=== PATIENT | male | born 1945 | race Caucasian/White ===

== ENCOUNTER 2018-05-15 00:29 | Outpatient (CLI) | payer BC, SELFPAY ==
--- NOTE | 2018-05-15 15:13 | DI.US_ITS ---
SYMPTOM/DIAGNOSIS: PAINLESS HEMATURIA, R31.9 RENAL ULTRASOUND: Routine examination was performed. Comparison CT scan is 07/31/16. The right kidney measures 11.2 cm. long. The left kidney measures 12.7 cm. long. No renal masses or obstruction is seen. There are a few echogenic foci seen within the renal pelves bilaterally. These may represent non obstructing stones versus calcifications. There is blood flow to both kidneys. The prevoid urinary bladder volume is 114 cc's. The bladder wall appeared smooth. No intraluminal masses are seen. The ureteral jets were not visualized during the examination. Post void urinary bladder volume was 57 cc's. The prostatic volume is 55 cc's. IMPRESSION: 1. No sonographic evidence of a renal mass or obstruction. 2 . Echogenic foci seen within the renal pelves bilaterally. These may represent non obstructing stones versus vascular calcifications. CT may be considered for further evaluation.
== END 2018-05-15 00:49 ==
PROVIDERS: PCP Family Medicine; Visit Provider Family Medicine
DX: R31.29 Other microscopic hematuria (principal)
CPT/HCPCS: 76770

== ENCOUNTER → 2018-06-05 07:47 | Outpatient (BNVA) | payer MEDICARE, BC, SELFPAY | PROVIDERS: PCP Family Medicine; Referring Provider Family Medicine; Visit Provider Urology | DX: R31.9 Hematuria, unspecified (principal) | CPT/HCPCS: 81003; 99214 ==

== ENCOUNTER 2018-07-31 14:46 | Outpatient (CLI) | payer MEDICARE, BC, SELFPAY ==
--- NOTE | 2018-07-31 10:30 | DI.RAD_ITS ---
SYMPTOMS/DIAGNOSIS: RIGHT HIP PAIN, M25.551, RIGHT KNEE PAIN, M25.561 PELVIS AND RIGHT HIP: There is mild to moderate bilateral hip joint space narrowing. There is mild acetabular spurring. The sacrum is obscured by overlying stool. The SI joints show mild degenerative changes. There are advanced degenerative changes in the lower lumbar spine. IMPRESSION: Moderate degenerative changes of both hips. RIGHT KNEE: The joint spaces are well maintained. There is minimal spurring at the articular aspect of the patella and tibial tubercle. There is an exostosis of the proximal fibular metaphysis. IMPRESSION: Mild patellofemoral degenerative changes and fibular exostosis.
== END 2018-07-31 15:06 ==
PROVIDERS: PCP Family Medicine; Visit Provider Family Medicine
DX: M25.551 Pain in right hip (principal); M25.561 Pain in right knee; M16.0 Bilateral primary osteoarthritis of hip; M17.11 Unilateral primary osteoarthritis, right knee
CPT/HCPCS: 73562; 73502

== ENCOUNTER 2019-12-02 03:47 | Outpatient (CLI) | payer MEDICARE, BC, SELFPAY ==
[2019-12-02 13:26] LABS: Anion Gap 7.1 mmol/L (3-11); BUN 20 mg/dL (7-18); CO2 29.9 mmol/L (21.0-32.0); CREATININE 0.84 mg/dL (0.70-1.30); Calcium 9.1 mg/dL (8.5-10.1); Calculated LDL 90 mg/dL (<100); Chloride 104 mmol/L (98-107); Cholesterol 153 mg/dL (<200); Glucose 93 mg/dL (74-106); HDL Cholesterol 42 mg/dL (40-60); Potassium 4.4 mmol/L (3.5-5.1); Sodium 141 mmol/L (136-145); Triglyceride 107 mg/dL (<150)
[2019-12-04 11:53] LABS: Lyme Ab w Rflx to Lyme Confirm Negative (Negative)
== END 2019-12-02 04:07 ==
PROVIDERS: Visit Provider Family Medicine
DX: I10 Essential (primary) hypertension (principal); E78.5 Hyperlipidemia, unspecified; W57.XXXA Bitten or stung by nonvenomous insect and other nonvenomous arthropods, initial encounter; T14.8XXA Other injury of unspecified body region, initial encounter
CPT/HCPCS: 36415; 80048; 80061; 86618

== ENCOUNTER → 2020-01-09 12:48 | Outpatient (BNVA) | payer MEDICARE, BC, SELFPAY | PROVIDERS: Visit Provider Urology | DX: R31.0 Gross hematuria (principal); Z87.891 Personal history of nicotine dependence | CPT/HCPCS: 99213 ==

== ENCOUNTER 2020-01-09 15:57 | Outpatient (REF) | payer MEDICARE, BC, SELFPAY | END 2020-01-09 16:17 | LOC: LBN 15:57 | PROVIDERS: Visit Provider Urology | DX: R31.9 Hematuria, unspecified (principal) | CPT/HCPCS: 87086 ==

== ENCOUNTER 2020-01-17 03:27 | Outpatient (CLI) | payer MEDICARE, BC, SELFPAY ==
--- NOTE | 2020-01-17 06:45 | DI.CT_ITS ---
EXAM: CT ABDOMEN PELVIS WO/W CLINICAL HISTORY: hematuria,R31.0 TECHNIQUE: CT examination of the abdomen pelvis was performed utilizing CT urogram protocol with non contrast CT followed by venous phase 7 minutes delayed phase imaging with intravenous infusion of 100 cc of Omnipaque 350. COMPARISON: CT ABD PELVIS WITH CONTRAST from 07/31/2016 CT CHEST FOR PULMONARY EMBOLUS from 08/02/[address] shows tiny bilateral nonobstructing renal calculi, 1 millimeter calculus in pole right 1 millimeter nonobstructing calculus in upper pole of the left kidney.. There is a sclerotic focus of the left iliac bone which is unchanged in appearance comparison with pr ior CT of July 2016. Images obtained through the lung bases are unremarkable. The liver is unremarkable in appearance. The spleen is unremarkable in appearance. The pancreas is unremarkable in appearance. Gallbladder and bile ducts appear normal. Abdominal aorta and major visceral branches appear intact. No evidence of abdominal wall hernia. No evidence of abdominal or pelvic adenopathy. No focal bowel pathology. The kidneys are normal in size and shape. There is normal symmetrical renal cortical enhancement. T here is no evidence of a renal mass, hydronephrosis, or nephrolithiasis except for small bilateral ap parent incidental renal cysts. The ureters appear normal bilaterally.. There is normal appearance o f the urinary bladder. IMPRESSION: Tiny bilateral nonobstructing renal calculi. Small bilateral renal cysts. Examination is otherwise unremarkable. RADIATION DOSE DELIVERED: 2,804.58mGy.cm Total DLP 2,804.58mGy.cm Total DLP
[2020-01-17] MEDS: Omnipaque 350 MG/ML 100 ML BTL PO (09:16)
[2020-01-17] MEDS: Normal Saline - Diluent 50 ML VIAL IV ×2 (09:17)
== END 2020-01-17 03:47 ==
PROVIDERS: Visit Provider Urology
DX: R31.0 Gross hematuria (principal); N20.0 Calculus of kidney; N28.1 Cyst of kidney, acquired
CPT/HCPCS: 99213; 74178; J3490

== ENCOUNTER → 2020-04-17 12:41 | Outpatient (BNVA) | payer MEDICARE, BC, SELFPAY | PROVIDERS: Visit Provider Internal Medicine Cardiovascular Disease | DX: I25.10 Atherosclerotic heart disease of native coronary artery without angina pectoris (principal); I42.9 Cardiomyopathy, unspecified; R07.89 Other chest pain; I10 Essential (primary) hypertension | CPT/HCPCS: 99204; 99215 ==

== ENCOUNTER → 2020-05-06 11:20 | Outpatient (BNVA) | payer MEDICARE, BC, SELFPAY | PROVIDERS: Visit Provider Physician Assistant | DX: I42.9 Cardiomyopathy, unspecified (principal); Z45.02 Encounter for adjustment and management of automatic implantable cardiac defibrillator | CPT/HCPCS: 93284; 99211 ==

== ENCOUNTER 2020-05-07 02:45 | Outpatient (CLI) | payer MEDICARE, BC, SELFPAY ==
[2020-05-07 12:41] LABS: Anion Gap 8.6 mmol/L (3-11); BUN 18 mg/dL (7-18); CO2 29.4 mmol/L (21.0-32.0); CREATININE 0.9 mg/dL (0.70-1.30); Calcium 9.4 mg/dL (8.5-10.1); Chloride 104 mmol/L (98-107); Glucose 99 mg/dL (74-106); Potassium 4.3 mmol/L (3.5-5.1); Sodium 142 mmol/L (136-145)
== END 2020-05-07 02:46 | disposition home or self-care (01) ==
LOC: LOS 02:45
PROVIDERS: Visit Provider Internal Medicine Cardiovascular Disease
DX: I42.9 Cardiomyopathy, unspecified (principal)
CPT/HCPCS: 36415; 80048

== ENCOUNTER 2020-06-03 00:42 | Outpatient (CLI) | payer MEDICARE, BC, SELFPAY ==
--- NOTE | 2020-06-03 10:16 | DI.US_ITS ---
APPROVED REPORT EXAM: Comprehensive 2D, Doppler, and color-flow Echocardiogram Patient Location: Out-Patient Width Stripper: Ingrid Mix RDCS (AE) Indications: NICM, Coronary Atherosclerosis, Pacer Other Information Study Quality: Adequate Conclusion Normal left ventricular wall thickness and chamber size. Estimated ejection fraction is 55 to 60%. There are no segmental wall motion abnormalities Normal right ventricular size and systolic function Both atria are normal in size Pacemaker lead noted in the right atrium and right ventricle The aortic valve is trileaflet with trace regurgitation Mild mitral annular calcification. Mild mitral regurgitation Normal tricuspid valve, trace to mild regurgitation, normal estimated right ventricular systolic pres sure 22 mmHg The pulmonic valve is not well visualized Mildly dilated ascending aorta measuring 3.68 cm Wall motion Left Ventricle The left ventricle is normal size. The left ventricular systolic function is normal. The left ventric ular ejection fraction is within the normal range. There is normal left ventricular wall thickness. T here is normal LV segmental wall motion. Left ventricular filling pattern is normal for age. There is no ventricular septal defect visualized. LVEF is 57%. Right Ventricle The right ventricle is normal size. The right ventricular systolic function is normal. The RVSP is 22 .4mmHg. Pacemaker lead is present in the right ventricle. Atria Left atrium is mildly dilated. The right atrium size is normal. The interatrial septum is intact with no evidence for an atrial septal defect. Aortic Valve The aortic valve is normal in structure. There is no aortic valvular stenosis. Trace aortic regurgita tion. Mitral Valve Mild mitral annular calcification. No evidence of mitral valve stenosis. Mild mitral regurgitation. Tricuspid Valve The tricuspid valve is normal in structure. There is no tricuspid valve stenosis. Trace to mild tricu spid regurgitation. Pulmonic Valve Pulmonic valve is not well visualized. There is no pulmonic valvular stenosis. There is no pulmonic v alvular regurgitation. Great Vessels The aortic root is normal in size. The ascending aorta is mildly dilated.3.68 cm Aortic arch is dana l in caliber. IVC is normal in size and collapses >50% with inspiration. Pericardium There is no pericardial effusion. 2D Dimensions IVSD d PLAX 0.90 cm M: 0.6-1.2 LV Vol A2C d MOD 125.1 mL LVPW d PLAX 0.92 cm M: 0.6 - 1.2 LV Vol A4C d MOD 159.0 mL LVID d PLAX 5.17 cm M: 4.2 - 5.8 LA vol/ BSA A2C s A-L 46.2 mL/m2 LVDs 3.70 cm M: 2.5 - 4.0 LA vol/ BSA A4C s A-L 32.3 mL/m2 Ao Root d 3.50 cm M: 3.1 - 3.7 LA Vol/ BSA Biplane s A-L 38.9 mL/m2 RA Area A4C 15.79 cm2 LA Area A4C s MOD 23.67 cm2 RA Vol/ BSA A4C s A-L 20.6 mL/m2 LA Area A2C s MOD 28.52 cm2 Ao Asc Diam d 3.68 cm M: 2.6 - 3.4 LV EF A4C MOD 56.5 % LV EF Teichholz 54.1 % LV EF A2C MOD 56.7 % LVEF (Ramirez's) 56.20 % M: 52 - 72 LV EF Biplane MOD 56.2 % LV Volume 101.20 mL M: 62 - 150 SV 80.25 mL LV Volume Index 42.34 mL/m2 M: 34 - 74 SV Index 33.50 mL/m2 LV Vol Biplane MOD 142.8 mL FS 28.10 % M-Mode TAPSE 2.27 cm (M/F) >1.7 LV Diastology MV E' medial 0.061 (>0.07 m/s) E/A Ratio 0.7 LV E/e MED 8.45 (<14) MV E Vmax 0.51 (0.4-1.3 m/s) MV E' lateral 0.075 (>0.1 m/s) MV A Vmax 0.70 (0.4-1.3 m/s) LV E/e LAT 6.80 (<14) MV E/A Ratio 0.71 MV E/E' medial 8.47 MV E/E' lateral 6.82 Aortic Valve LVOT Area 3.63 cm2 AoV Area Vmax 2.70 cm2 LVOT Vmax 0.89 m/s AoV Area/ BSA (Vmax) 1.13 cm2/m2 LVOT Mean Jaylen. 0.58 m/s TORIN Mean Jaylen. 2.44 cm2 LVOT Peak Grad 3.2 mmHg TORIN Mean Jaylen. Index 1.02 cm2/m2 LVOT Mean Grad 1.6 mmHg LVOT VTI 0.171 m LVOT Diam s 2.10 cm AoV Vmax 1.20 m/s Velocity Ratio 0.74 AoV Mean Jaylen. 0.87 m/s AoV Peak Grad 5.7 mmHg LVOT SV 62.00 mL AoV Mean Grad 3.3 mmHg AoV VTI 0.249 m AoV Area VTI 2.49 cm2 AoV Area/ BSA (VTI) 1.04 cm/m2 Mitral Valve MV DT 305 (160-240 msec) MV PHT 88 msec MV Area PHT 2.49 cm2 MV VTI 0.252 m MV VTI Annulus 0.252 m Pulmonary Valve PV Vmax 0.78 (0.5-1.5 m/s) RVOT Peak Gr. 1.72 mmHg PV Peak Grad 2.5 mmHg RVOT Mean Gr. 0.85 mmHg PV Mean Grad 1.4 mmHg RVOT VTI 0.138 m PV VTI 0.170 m RVOT Vmax 0.66 m/s Tricuspid Valve TR Peak Grad 19.3 mmHg TR Vmax 2.20 m/s RA Pressure 3.00 mmHg RVSP (TR) 22.4 mmHg
== END 2020-06-03 01:02 ==
PROVIDERS: Visit Provider Internal Medicine Cardiovascular Disease
DX: I25.10 Atherosclerotic heart disease of native coronary artery without angina pectoris (principal); I42.8 Other cardiomyopathies; I08.1 Rheumatic disorders of both mitral and tricuspid valves
CPT/HCPCS: 93306

== ENCOUNTER → 2020-07-24 09:49 | Outpatient (BNVA) | payer MEDICARE, BC, SELFPAY | PROVIDERS: Visit Provider Urology | DX: R31.0 Gross hematuria (principal); Z79.899 Other long term (current) drug therapy | CPT/HCPCS: 81003; 99213 ==

== ENCOUNTER → 2020-10-09 10:02 | Outpatient (BNVA) | payer MEDICARE, BC, SELFPAY | PROVIDERS: Visit Provider Internal Medicine Cardiovascular Disease | DX: I42.8 Other cardiomyopathies (principal); I10 Essential (primary) hypertension; Z95.810 Presence of automatic (implantable) cardiac defibrillator | CPT/HCPCS: 99214; 99213 ==

== ENCOUNTER → 2020-11-04 09:23 | Outpatient (BNVA) | payer MEDICARE, BC, SELFPAY | PROVIDERS: Visit Provider Physician Assistant | DX: I42.8 Other cardiomyopathies (principal); R00.1 Bradycardia, unspecified; Z45.02 Encounter for adjustment and management of automatic implantable cardiac defibrillator | CPT/HCPCS: 93284; 99212 ==

== ENCOUNTER 2021-02-18 02:51 | Outpatient (CLI) | payer MEDICARE, BC, SELFPAY ==
[2021-02-18 21:18] LABS: PSA, Diagnostic 0.9 ng/mL (0.0-6.5)
== END 2021-02-18 02:52 | disposition home or self-care (01) ==
LOC: LOS 02:51
PROVIDERS: Visit Provider Urology
DX: R31.0 Gross hematuria (principal)
CPT/HCPCS: 36415; 84153

== ENCOUNTER → 2021-02-23 07:50 | Outpatient (BNVA) | payer MEDICARE, BC, SELFPAY | PROVIDERS: Visit Provider Urology | DX: R31.0 Gross hematuria (principal) | CPT/HCPCS: 81003; 99213 ==

== ENCOUNTER → 2021-04-09 10:32 | Outpatient (BNVA) | payer MEDICARE, SELFPAY | PROVIDERS: Visit Provider Internal Medicine Cardiovascular Disease | DX: I25.10 Atherosclerotic heart disease of native coronary artery without angina pectoris (principal); I10 Essential (primary) hypertension; I42.8 Other cardiomyopathies; Z95.810 Presence of automatic (implantable) cardiac defibrillator | CPT/HCPCS: 99214; 99213 ==

== ENCOUNTER → 2021-04-28 09:21 | Outpatient (BNVA) | payer MEDICARE, SELFPAY | PROVIDERS: Visit Provider Physician Assistant | DX: Z95.810 Presence of automatic (implantable) cardiac defibrillator (principal); I42.8 Other cardiomyopathies; R00.1 Bradycardia, unspecified | CPT/HCPCS: 93284; 99212 ==

== ENCOUNTER 2021-06-02 01:29 | Outpatient (CLI) | payer MEDICARE, SELFPAY ==
--- NOTE | 2021-06-02 13:51 | DI.US_ITS ---
APPROVED REPORT EXAM: Comprehensive 2D, Doppler, and color-flow Echocardiogram Patient Location: Out-Patient Porcelain Mixer: Ingrid Mix RDCS (AE) Indications: CMP, HTN Conclusion Normal left ventricular wall thickness and chamber size. Estimated ejection fraction is 60%. Wall m otion is normal Normal right ventricular size and systolic function Both atria are normal in size Device lead noted in the right heart There are no significant structural valvular abnormalities Mild mitral and tricuspid regurgitation Estimated right ventricular systolic pressure is 28 mmHg Mildly dilated ascending aorta 3.82 cm Wall motion Left Ventricle The left ventricle is normal size. The left ventricular systolic function is normal. The left ventric ular ejection fraction is within the normal range. There is normal left ventricular wall thickness. T here is normal LV segmental wall motion. There is no ventricular septal defect visualized. LVEF is 60 %. Right Ventricle The right ventricle is normal size. The right ventricular systolic function is normal. The RVSP is 27 .7_ mmHg. Pacemaker lead is present in the right ventricle. Atria The left atrium size is normal. The right atrium size is normal. The interatrial septum is intact wit h no evidence for an atrial septal defect. Aortic Valve The aortic valve is normal in structure. There is no aortic valvular stenosis. No aortic regurgitatio n is present. Mitral Valve Mild mitral annular calcification. No evidence of mitral valve stenosis. Mild mitral regurgitation. Tricuspid Valve The tricuspid valve is normal in structure. There is no tricuspid valve stenosis. Mild tricuspid regu rgitation. Pulmonic Valve Pulmonic valve is not well visualized. There is no pulmonic valvular stenosis. There is no pulmonic v alvular regurgitation. Great Vessels The aortic root is normal in size. The ascending aorta is mildly dilated. Aortic arch is not well vis ualized. IVC is normal in size and collapses >50% with inspiration. Pericardium There is no pericardial effusion. 2D Dimensions IVSD d PLAX 1.05 cm M: 0.6-1.2 LV Vol A2C d MOD 179.5 mL LVPW d PLAX 1.03 cm M: 0.6 - 1.2 LV Vol A4C d MOD 168.2 mL LVID d PLAX 5.35 cm M: 4.2 - 5.8 LA vol/ BSA A2C s A-L 34.7 mL/m2 LVDs 3.75 cm M: 2.5 - 4.0 LA vol/ BSA A4C s A-L 28.4 mL/m2 Ao Root d 3.44 cm M: 3.1 - 3.7 LA Vol/ BSA Biplane s A-L 31.5 mL/m2 RA Area A4C 18.45 cm2 LA Area A4C s MOD 21.85 cm2 RA Vol/ BSA A4C s A-L 23.3 mL/m2 LA Area A2C s MOD 24.08 cm2 Ao Asc Diam d 3.82 cm M: 2.6 - 3.4 LV EF A4C MOD 60.4 % LV EF Teichholz 56.6 % LV EF A2C MOD 59.9 % LVEF (Ramirez's) 61.47 % M: 52 - 72 LV EF Biplane MOD 61.5 % LV Volume 127.70 mL M: 62 - 150 SV 111.07 mL LV Volume Index 52.98 mL/m2 M: 34 - 74 SV Index 45.94 mL/m2 LV Vol Biplane MOD 180.7 mL FS 29.90 % M-Mode TAPSE 2.57 cm (M/F) >1.7 LV Diastology MV E' medial 0.083 (>0.07 m/s) E/A Ratio 1.0 LV E/e MED 7.45 (<14) MV E Vmax 0.62 (0.4-1.3 m/s) MV E' lateral 0.098 (>0.1 m/s) MV A Vmax 0.60 (0.4-1.3 m/s) LV E/e LAT 6.35 (<14) MV E/A Ratio 0.96 MV E/E' medial 7.47 MV E/E' lateral 6.35 Aortic Valve LVOT Area 4.45 cm2 AoV Area Vmax 3.04 cm2 LVOT Vmax 0.94 m/s AoV Area/ BSA (Vmax) 1.26 cm2/m2 LVOT Mean Jaylen. 0.62 m/s TORIN Mean Jaylen. 2.85 cm2 LVOT Peak Grad 3.5 mmHg TORIN Mean Jaylen. Index 1.18 cm2/m2 LVOT Mean Grad 1.8 mmHg LVOT VTI 0.188 m LVOT Diam s 2.35 cm AoV Vmax 1.37 m/s Velocity Ratio 0.68 AoV Mean Jaylen. 0.96 m/s AoV Peak Grad 7.5 mmHg LVOT SV 83.81 mL AoV Mean Grad 4.2 mmHg AoV VTI 0.252 m AoV Area VTI 3.33 cm2 AoV Area/ BSA (VTI) 1.38 cm/m2 Mitral Valve MV DT 268 (160-240 msec) MV PHT 78 msec MV Area PHT 2.83 cm2 MV VTI 0.199 m MV Area VTI 4.22 (4.0-6.0 cm2) Pulmonary Valve PV Vmax 1.05 (0.5-1.5 m/s) RVOT Peak Gr. 2.06 mmHg PV Peak Grad 4.4 mmHg RVOT Mean Gr. 1.25 mmHg PV Mean Grad 2.9 mmHg RVOT VTI 0.164 m PV VTI 0.248 m RVOT Vmax 0.72 m/s Tricuspid Valve TR Peak Grad 24.6 mmHg TR Vmax 2.48 m/s RA Pressure 3.00 mmHg RVSP (TR) 27.7 mmHg
== END 2021-06-02 01:49 ==
PROVIDERS: Visit Provider Internal Medicine Cardiovascular Disease
DX: I10 Essential (primary) hypertension (principal); I77.819 Aortic ectasia, unspecified site
CPT/HCPCS: 93306

== ENCOUNTER 2021-08-27 01:12 | Outpatient (CLI) | payer MEDICARE, SELFPAY ==
[2021-08-27 12:33] LABS: HCT 46.4 % (40.0-50.0); HGB 15.2 g/dL (13.5-17.5); MCH 28.8 pg (27.0-33.0); MCHC 32.8 % (32.0-36.0); MCV 88 fL (80-95); MPV 10.9 fL (8.0-11.0); Platelet Count 179 10^3/uL (130-400); RBC 5.27 10^6/uL (4.36-5.78); RDW 12.3 % (11.8-14.1); WBC 7.57 10^3/uL (4.4-10.8)
[2021-08-27 13:30] LABS: ALT 7 U/L (16-63); AST 15 U/L (15-37); Albumin 3.2 g/dL (3.4-5.0); Alkaline Phosphatase 60 U/L (46-116); BUN 17 mg/dL (7-18); Bilirubin, Total 0.7 mg/dL (0.2-1.0); CREATININE 1.1 mg/dL (0.70-1.30); Chloride 104 mmol/L (98-107); Glucose 115 mg/dL (74-106); Potassium 4.3 mmol/L (3.5-5.1); Sodium 141 mmol/L (136-145); Total Protein 6.6 g/dL (6.4-8.2)
== END 2021-08-27 01:13 | disposition home or self-care (01) ==
LOC: LOS 01:14
DX: K62.5 Hemorrhage of anus and rectum (principal); K59.03 Drug induced constipation
CPT/HCPCS: 36415; 80053; 85027

== ENCOUNTER → 2021-09-03 09:48 | Outpatient (BNVA) | payer MEDICARE, SELFPAY | PROVIDERS: Visit Provider Surgery | DX: I42.8 Other cardiomyopathies (principal); Z95.810 Presence of automatic (implantable) cardiac defibrillator; Z12.11 Encounter for screening for malignant neoplasm of colon; Z12.12 Encounter for screening for malignant neoplasm of rectum; K62.5 Hemorrhage of anus and rectum | CPT/HCPCS: 99213 ==

== ENCOUNTER 2021-10-06 11:01 | Day surgery (SDC) | payer MEDICARE, SELFPAY ==
--- NOTE | 2021-10-06 06:56 | W.PREOPHP ---
Assessment and Plan Assessment and plan (1) Encounter for colorectal cancer screening: Status: Acute Assessment and plan: Mr. Mccauley is a pleasant 76-year-old gentleman who is here today to discuss a screening colonoscopy.? His last colonoscopy was 10 years ago.? At that time he was noted to have diverticulosis but no polyps.? Over the last 2-1/2 weeks he has had some rectal bleeding, with his history of constipation this is most likely due to internal hemorrhoids.? We discussed doing a colonoscopy and possible hemorrhoid banding.? Both procedures were discussed in detail as well as the risks, benefits and complications. Risks, benefits and complications have been reviewed. Complications include but are not limited to bleeding, pain, perforation, missed small lesion/polyp, sore throat, aspiration and adverse reaction to the medications. Questions were entertained and answered to their satisfaction and they wished to proceed. No guarantees were given or implied. Proceed with colonoscopy with possible hemorrhoid banding History of Present Illness Narrative: Mr. Mccauley is a pleasant 76 year old male who had a colonoscopy 10 years ago. He had no polyps but had diverticula.? Over the last 2 1/2 weeks he has had some intermittent bleeding. The blood is on the toilet paper and streaking around the stool. He has a history of constipation and was resently started on Docusat sodium to help.? He has had no melena and has no family history of colon cancer that he is aware of. He does have a history of nonischemic cardiomyopathy and has a ICD, biventricular device.? It was interrogated in June and everything was functioning properly.? He is followed by cardiology here at [facility].? His last visit was in March of this year.? He had an echo done in May of this year which showed no major changes from last year.? He denies SOB with activity EXAM: Comprehensive 2D, Doppler, and color-flow Echocardiogram Patient Location: Out-Patient Estimator Jewelry: Ingrid Mix RDCS (AE) Indications: CMP, HTN Conclusion Normal left ventricular wall thickness and chamber size.? Estimated ejection fraction is 60%.? Wall motion is normal Normal right ventricular size and systolic function Both atria are normal in size Device lead noted in the right heart There are no significant structural valvular abnormalities Mild mitral and tricuspid regurgitation Estimated right ventricular systolic pressure is 28 mmHg Mildly dilated ascending aorta 3.82 cm No changes in his health since he was last seen Review of Systems All systems reviewed & are unremarkable except as noted in HPI and below PFSH All Active Problems Unspecified dental caries (Chronic) Idiopathic peripheral neuropathy (Chronic 10/06/17) Hyperlipidemia (Chronic) Hearing loss (Chronic) left Essential hypertension (Chronic 02/28/13) Coronary atherosclerosis of [place] coronary vessel (Chronic) Anticoagulated on warfarin (Chronic) handled by [facility] Acquired color vision deficiency (Chronic) Insomnia (Chronic) Chronic pain syndrome (Chronic) Low lumbar and hips, bilaterally ICD (implantable cardioverter-defibrillator), biventricular, in situ (Chronic) [employer]-D original implant 02/18/2013; PG replaced 03/25/2016 Non-ischemic cardiomyopathy (Chronic) improved LVEF to 55% Constipation due to pain medication (Chronic) Rectal bleeding (Acute) Encounter for colorectal cancer screening (Acute) Medical History Bradycardia Cardiac dysrhythmia, unspecified Complete heart block Per [facility] note Deviated nasal septum Gross hematuria History of pericarditis per [facility] note 2012 post DDD pacer implant History of tobacco use Hx pulmonary embolism per [facility] 2012 Hx-sudden cardiac arrest Per [facility] note: Probably bradycardic induced, presenting with symptomatic CHB, and requiring defibrillation 05/2012 [place] Painless hematuria Followed by urology SBO (small bowel obstruction) Surgical History Hx of colonoscopy Status post tonsillectomy (03/03/15) Tonsillectomy Family History Mother , age 72 Heart disease Father , age 60 Cancer Social History Smoking/Tobacco Use Status: Former Tobacco Use tobacco type: cigarettes Quit Date: 03/20/00 Tobacco: How many years used: 25 Second Hand Exposure: Yes Smoking risk assessment performed?: Yes Alcohol Intake: current Alcohol Intake frequency: a few times a week Alcohol type: beer and hard liquor Drug use: Rarely Substance use type: marijuana Caregiver/Support person: No Housing: house Communication Needs: None Do you need help understanding health information?: Never 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, 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 [employer] Pets and animals: Yes Pets and animals: dog(s) Sexually active: Yes Do you think of yourself as: straight/heterosexual Current gender identity: male What is your relationship status?: How often do you talk on the phone with friends or family?: three or more times per week How often do you get together with friends or relatives?: three or more times per week How often do you attend christian or pentecostalism services?: 1-3 times per year Do you belong to any clubs or organized social groups?: yes Panel score (0-1 are the most socially isolated patients): 2 What type of physical activity do you participate in: walking Duration: 30-45 minutes/day Frequency: 5-6 times per week Pushpa/Shinto: None Special pushpa needs: No Seatbelt use: sometimes Helmet use: No Drive intox or ride w/intox spike driver: No Do you feel safe at home: Yes Do you feel safe in your relationship?: Yes Meds Allergies and Home Medications Allergies Allergy/AdvReac Type Severity Reaction Status Date / Time furosemide Allergy Mild Hives Verified 10/06/21 11:31 lisinopril Allergy Unknown SKIN RASH Verified 10/06/21 11:31 Home Medications Medication Instructions Recorded Confirmed Type aspirin,buffered (calcium 325 mg PO DAILY #90 tabs 07/30/12 10/06/21 History carbonate-magnesium) 325 mg tablet glucosamine 750 [id number] 1 ea PO DAILY 07/30/12 10/06/21 History no.1 625 mg-C 30 [id number] tablet multivitamin (One Daily tablet) 1 ea PO DAILY 07/30/12 10/06/21 History magnesium oxide 400 mg (241.3 mg 400 mg PO DAILY #90 tabs 09/01/15 10/06/21 History magnesium) tablet loratadine 10 mg tablet 10 mg PO DAILY PRN allergy 05/07/20 10/06/21 Rx symptoms #30 tabs zolpidem 10 mg tablet (Ambien) 10 mg PO HS PRN insomnia #90 12/03/20 10/06/21 Rx tab-caps losartan 100 mg tablet 100 mg PO DAILY #90 tabs 01/28/21 10/06/21 Rx finasteride 5 mg tablet 5 mg PO DAILY prostate #90 tabs 02/23/21 10/06/21 Rx carvedilol 6.25 mg tablet 6.25 mg PO BID #180 tabs 05/07/21 10/06/21 Rx gabapentin 300 mg capsule 300 mg PO QHS neuropathy #90 caps 05/28/21 10/06/21 Rx amlodipine 5 mg tablet 5 mg PO DAILY #90 tabs 06/10/21 10/06/21 Rx hydrocodone 7.5 mg-acetaminophen 1 tab PO BID PRN pain #60 tabs 08/10/21 10/06/21 Rx 325 mg tablet docusate sodium 100 mg capsule 100 mg PO DAILY #90 caps 08/19/21 10/06/21 Rx polyethylene glycol 3350 17 17 g PO DAILY #510 grams 08/19/21 10/06/21 Rx gram/dose oral powder (Miralax) pravastatin 20 mg tablet 20 mg PO DAILY #90 tab-caps 08/23/21 10/06/21 Rx bisacodyl 5 mg tablet,delayed 5 mg PO ONCE #4 tabs 09/03/21 10/05/21 Rx release (Dulcolax (bisacodyl)) polyethylene glycol 3350 17 17 g PO ONCE #238 grams 09/03/21 10/06/21 Rx gram/dose oral powder Exam Const General: comfortable and no acute distress [facility] Head: normocephalic and atraumatic Resp Effort & Inspection: normal respiratory effort Auscultation: clear to auscultation bilaterally Cardio Rate: regular rate Rhythm: regular rhythm Heart Sounds: no gallops, no murmurs and no rubs
--- NOTE | 2021-10-06 07:01 | COLE_ITS ---
Colonoscopy Report Date of procedure: 10/06/21 Pre-op diagnosis general: colon cancer screening and rectal bleading Post-op diagnosis procedure note: other (diverticulosis and internal hemorrhoids) Procedure: Colonoscopy with internal hemorrhoid banding Surgeon: Sania Landers Anesthesia Type: General:No Airway Estimated blood loss (mL): 3 Pathology: none sent Complications: None Disposition: same day Indications: Mr. Mccauley is a pleasant 76-year-old gentleman who is here today to discuss a screening colonoscopy.? His last colonoscopy was 10 years ago.? At that time he was noted to have diverticulosis but no polyps.? Over the last 2-1/2 weeks he has had some rectal bleeding, with his history of constipation this is most likely due to internal hemorrhoids.? We discussed doing a colonoscopy and possible hemorrhoid banding.? Both procedures were discussed in detail as well as the risks, benefits and complications. Risks, benefits and complications have been reviewed. Complications include but are not limited to bleeding, pain, perforation, missed small lesion/polyp, sore throat, aspiration and adverse reaction to the medications. Questions were entertained and answered to their satisfaction and they wished to proceed. No guarantees were given or implied. Proceed with colonoscopy with possible hemorrhoid banding (2) Rectal bleeding: Prep: Miralax/Dulcolax Procedure Start Time: 13:12 Procedure End Time: 13:43 Retraction Time: 14 minutes Findings: Severe diverticulosis Procedure Description: After informed consent was obtained the patient was taken to the procedure room and placed in a left decubitous position. Monitors were applied and a time out was done. The patients name, date of , procedure, allergies to medications and metal in their body was reviewed. The patient was then sedated. Once sedated and comfortable a rectal exam was done. External exam was normal. Internal exam revealed a normal sphincter tone and no palpable masses. The prostate felt smooth. The scope was then introduced and retro-flexed. Grade 2 internal hemorrhoids at the 12 and 3 o'clock position. No polyps or masses were identified on retro- flexion. The scope was then advanced to the cecum without difficulty. The ileocecal vlave and appendiceal orifice were identified. The prep was adequate. The scope was then slowly retracted over 14 minutes back into the rectum. There were no Polyps. There was severe harley- diverticulosis noted. The scope was removed and the patient was woken up and taken back to Same day surgery in stable condition. The patient tolerated the procedure well and there were no immediate complications.
[2021-10-06 11:20] VITALS: BP 138/81; PULSE 67; RESP 19; TEMP 36.7; O2SAT 97
[2021-10-06] MEDS: Lactated Ringers 1,000 ML 80 ML IV (11:40)
--- NOTE | 2021-10-06 12:52 | W.ANESPRE ---
General Info Date of Service Date Performed: 10/06/21 Height: 6 ft 6 in Weight: 102.8 kg Body Mass Index (BMI): 26.2 Surgical Procedure: Operation Date: 10/06/21 13:35 Proposed Procedure Side Surgeon p Colonoscopy Sania Landers MD Meds Allergies and Home Medications Allergies Allergy/AdvReac Type Severity Reaction Status Date / Time furosemide Allergy Mild Hives Verified 10/06/21 11:31 lisinopril Allergy Unknown SKIN RASH Verified 10/06/21 11:31 Home Medication Medication Instructions Recorded aspirin,buffered (calcium 325 mg PO DAILY #90 tabs 07/30/12 carbonate-magnesium) 325 mg tablet glucosamine 750 gx-kphrzeelcy-pny 1 ea PO DAILY 07/30/12 no.1 625 mg-C 30 ud-qbea-slcv tablet multivitamin (One Daily tablet) 1 ea PO DAILY 07/30/12 magnesium oxide 400 mg (241.3 mg 400 mg PO DAILY #90 tabs 09/01/15 magnesium) tablet loratadine 10 mg tablet 10 mg PO DAILY PRN allergy 05/07/20 symptoms #30 tabs zolpidem 10 mg tablet (Ambien) 10 mg PO HS PRN insomnia #90 12/03/20 tab-caps losartan 100 mg tablet 100 mg PO DAILY #90 tabs 01/28/21 finasteride 5 mg tablet 5 mg PO DAILY prostate #90 tabs 02/23/21 carvedilol 6.25 mg tablet 6.25 mg PO BID #180 tabs 05/07/21 gabapentin 300 mg capsule 300 mg PO QHS neuropathy #90 caps 05/28/21 amlodipine 5 mg tablet 5 mg PO DAILY #90 tabs 06/10/21 hydrocodone 7.5 mg-acetaminophen 1 tab PO BID PRN pain #60 tabs 08/10/21 325 mg tablet docusate sodium 100 mg capsule 100 mg PO DAILY #90 caps 08/19/21 polyethylene glycol 3350 17 17 g PO DAILY #510 grams 08/19/21 gram/dose oral powder (Miralax) pravastatin 20 mg tablet 20 mg PO DAILY #90 tab-caps 08/23/21 bisacodyl 5 mg tablet,delayed 5 mg PO ONCE #4 tabs 09/03/21 release (Dulcolax (bisacodyl)) polyethylene glycol 3350 17 17 g PO ONCE #238 grams 09/03/21 gram/dose oral powder Current Visit Medications: Current Medications Generic Name Dose Route Start Last Admin Trade Name Freq PRN Reason Stop Dose Admin Hyoscyamine Sulfate 0.125 mg 10/06/21 07:03 Hyoscyamine 0.125 Mg Sl/Oral/Chew SL DIRECTED PRN Ringer's Solution 1,000 mls @ 80 mls/hr 10/06/21 06:00 10/06/21 11:40 IV 11/04/21 23:59 80 mls/hr INFUSION SHAWANDA Administration IV Miscellaneous Supplies 1 each 10/06/21 06:00 Iv Access IV 11/04/21 23:59 DIRECTED SHAWANDA Ondansetron HCl 4 mg 10/06/21 07:03 Ondansetron 4 Mg/2 Ml Vial IVP Q4H PRN PRN Nausea / Vomiting Sodium Chloride 0 ml 10/06/21 06:00 Normal Saline Flush 10 Ml Syr IV 11/04/21 23:59 PRN PRN Sodium Chloride 0 ml 10/06/21 06:00 Normal Saline 10 Ml Vial IJ 11/04/21 23:59 DIRECTED PRN Sterile Water 0 ml 10/06/21 06:00 Water,Injection,Sterile 10 Ml Vial IJ 11/04/21 23:59 DIRECTED PRN PFSH Active Problems Active Problems: Problem Status Onset Code Unspecified dental caries K02.9 Idiopathic peripheral neuropathy 10/06/17 G60.9 Hyperlipidemia E78.5 Hearing loss H91.90 Essential hypertension 02/28/13 I10 Coronary atherosclerosis of [place] coronary vessel I25.10 Anticoagulated on warfarin Z79.01 Acquired color vision deficiency H53.52 Insomnia G47.00 Chronic pain syndrome G89.4 ICD (implantable cardioverter-defibrillator), biventricular, in situ Z95.810 Non-ischemic cardiomyopathy I42.8 Constipation due to pain medication K59.03 Rectal bleeding K62.5 Encounter for colorectal cancer screening Z12.11, Z12.12 Medical History Medical History Bradycardia Cardiac dysrhythmia, unspecified Complete heart block Per [facility] [place] Deviated nasal septum Gross hematuria History of pericarditis per [facility] [place] note 2013 post DDD pacer implant History of tobacco use Hx pulmonary embolism per [facility] [place] 2012 Hx-sudden cardiac arrest Per [facility] [place] note: Probably bradycardic induced, presenting with symptomatic CHB, and requiring defibrillation 05/2012 [place] Painless hematuria Followed by urology SBO (small bowel obstruction) Surgical History Surgical History Hx of colonoscopy Status post tonsillectomy (03/03/15) Tonsillectomy Tobacco Smoking/Tobacco Use Status: Former Tobacco Use Passive smoking exposure: Yes Second hand exposure: Yes Alcohol Alcohol Intake: current Alcohol intake frequency: a few times a week Alcohol type: beer and hard liquor Substance Use Substance use: Rarely Substance use type: marijuana Vital Signs and Lab Results Vital Signs Most Recent Vital Signs in EMR: Most Recent Vital Signs Temp Pulse Resp BP Pulse Ox 36.7 C 67 19 138/81 97 10/06/21 11:20 10/06/21 11:20 10/06/21 11:20 10/06/21 11:20 10/06/21 11:20 Lab Results Blood Type / Crossmatch: No Data to Display Complete Blood Count: No Data to Display Complete Metabolic Panel: No Data to Display Liver Function Panel: No Data to Display Coagulation Panel: No Data to Display Cardiac Panel: No Data to Display Arterial Blood Gas: No Data to Display Venous Blood Gas: No Data to Display Pancreas Panel: No Data to Display Thyroid Panel: No Data to Display Infectious Disease: No Data to Display Blood Cultures: No Data to Display Toxicology Panel: No Data to Display Anesthesia Assessment and Plan Anesthesia History Personal History: No History of Anesthesia Complications Family History: No Family History of Anesthesia Complications Exercise Tolerance Exercise Tolerance: Metabolic Equivalents>4 Pertinent Negatives Pertinent Negatives: No Symptoms of GERD, No Major Cardiovascular Symptoms or Complaints (Pacemaker/ defibrillator, Sudden cardiac arrest 2012) and No History of CVA/TIA Cardiac & Pulmonary Exam Cardiac Exam: Normal S1/S2 Heart Sounds Pulmonary Exam: Clear Bilateral Breath Sounds Implantable Cardiac Device Does patient have a Pacemaker or an ICD?: Yes Device Refractory Bricklayer:: unkown possible [facility] Reason for Placement:: bradycardia Date of Last Device Interrogation:: 04/2021 Airway Exam Known Difficult Airway: No Mallampati Class: 4 Mouth Opening: Narrow (< 3cm) Thyromental Distance: Greater than 3 cm Facial Hair: Full [place] Neck Range of Motion: Full ROM Neck Circumference: Normal Teeth Condition: Generalized Poor Dentition (Multiple missing and broken teeth) ASA Classification ASA Score: ASA 3 Emergency Case?: No NPO Status NPO Status: NPO Clears >2 hours, Solids >8 hours Anesthesia Plan Resuscitation Status: Full Code Anesthesia Technique: General Anesthesia Airway Planned: Natural Airway Monitors Used: Standard Monitors
[2021-10-06 12:55] VITALS: BMI 26.2
--- NOTE | 2021-10-06 12:57 | W.PM.DSUDISC ---
Discharge Plan Disposition Patient Disposition: HOME Condition: Good Discharge Details Reason For Visit: colonoscopy Attending Provider: Sania Landers Primary Care Provider: Bhumika Hare Home Meds and New Rx's Prescriptions: Continued loratadine 10 mg tablet 10 mg PO DAILY PRN (Reason: allergy symptoms) Qty: 30 2RF zolpidem [Ambien] 10 mg tablet 10 mg PO HS PRN (Reason: insomnia) Qty: 90 0RF finasteride 5 mg tablet 5 mg PO DAILY Qty: 90 4RF docusate sodium 100 mg capsule 100 mg PO DAILY Qty: 90 3RF polyethylene glycol 3350 [Miralax] 17 gram/dose powder 17 g PO DAILY Qty: 510 6RF multivitamin [One Daily] 1 EACH tablet 1 ea PO DAILY aspirin,buffd-calcium carb-mag 325 MG tablet 325 mg PO DAILY Qty: 90 pieyrpan-lvrl-nqe7-C-petty-bosw 1 EACH tablet 1 ea PO DAILY magnesium oxide 400 MG tablet 400 mg PO DAILY Qty: 90 Rx Instructions: Takes OTC losartan 100 mg tablet 100 mg PO DAILY Qty: 90 3RF carvedilol 6.25 mg tablet 6.25 mg PO BID Qty: 180 4RF Rx Instructions: must administer with a meal/food gabapentin 300 mg capsule 300 mg PO QHS Qty: 90 2RF amlodipine 5 mg tablet 5 mg PO DAILY Qty: 90 3RF hydrocodone-acetaminophen 7.5-325 mg tablet 1 tab PO BID MDD 2 tabs PRN (Reason: pain) Qty: 60 0RF pravastatin 20 mg tablet 20 mg PO DAILY Qty: 90 4RF Discontinued bisacodyl [Dulcolax (bisacodyl)] 5 mg tablet,delayed release (DR/EC) 5 mg PO ONCE Qty: 4 0RF Rx Instructions: Take according to provider's instructions for colonoscopy prep. polyethylene glycol 3350 17 gram/dose powder 17 g PO ONCE Qty: 238 0RF Rx Instructions: To be taken as directed by prescriber's office for colonoscopy prep. Discharge Instructions Instructions: Diverticulosis (DC), Hemorrhoids (DC), Rubber Band Ligation (DC) Additional Instructions: Findings: severe diverticulosis internal hemorrhoids Follow up: possibly 5 years Please call if you develop: fevers >101.5 Nausea or Vomiting Abdominal pain that is not transient Rectal bleeding that is more then a tbsp A hard abdomen and inability to pass gas DAY SURGERY UNIT POST ENDOSCOPY INSTRUCTIONS Instructions for everyone who is given Anesthesia: For your safety, please do the following for the next 24 Hours: a. Do not drive or operate dangerous equipment b. Do not drink alcohol beverages or use any recreational drugs for the first 24 hours or while taking pain medications. The medications in your body may have a reaction that can be dangerous. c. Do not make any important decisions or sign any important papers 1. Generally there are no restrictions on your activity after a day or so has gone by, but you may feel a bit fatigued for a few days. 2. After you arrive home you may have a light meal and return to a normal diet as you can tolerate it without feeling sick to your stomach. 3. After surgery, you may feel pain or discomfort. This should be only transient, but if it persists please contact your doctor. 4. If there are any questions regarding the findings of your procedure, please feel free to contact your doctor. 6. If you are unable to contact your doctor with a problem, contact the hospital at [phone]. 7. Continue all your regular medications unless directed otherwise. I understand the above instructions and have no questions. Signature of Patient or Responsible Adult Escort Date/Time Name of Responsible Adult Escort Signature of Nurse Date/Time Activity:: Activity as Tolerated Diet:: high fiber diet Discharge Orders Discharge Orders: Discharge Order (Routine); Ordered 10/06/21 Ordered By: Sania Landers DS: Diagnosis Discharge Diagnosis (1) Encounter for colorectal cancer screening: Status: Acute
--- NOTE | 2021-10-06 13:56 | W.ANESPOSTOP ---
Postoperative Evaluation Date, Time and Location Date Performed: 10/06/21 Time Performed: 13:56 Patient Location: Day Surgery Unit Vital Signs Most Recent Imported Vital Signs: Most Recent Vital Signs Temp Pulse Resp BP Pulse Ox 36.7 C 67 19 138/81 97 10/06/21 11:20 10/06/21 11:20 10/06/21 11:20 10/06/21 11:20 10/06/21 11:20 Most Recent Manually Entered Vital Signs: Adult Blood Pressure: 107/91 Heart Rate: 75 Respirations: 10 Oxygen Saturation (%): 99 Temperature (C): 36.3 C Pain Score (0-10 Scale): 0 Pain Score Most Recent Pain Score: Most Recent Pain Score Pain Level 0 10/06/21 11:20 Assessment Mental Status: Awake (Alert & Oriented to Patient Baseline) Airway and Respiratory Function: Patent airway with normal (patient baseline) respiratory exam Cardiovascular Function: Hemodynamically Stable Hydration Status: Adequately Hydrated Nausea & Vomiting: No Nausea or Vomiting Pain: Pt. Denies Any Pain Peripheral Nerve Block: Patient did not receive a nerve block
[2021-10-06 13:57] VITALS: BP 107/91; PULSE 75; RESP 10; TEMPC 36.3; O2SAT 99
[2021-10-06 14:00] VITALS: BP 107/91; PULSE 73; RESP 16; TEMP 36.2; O2SAT 96
[2021-10-06] MEDS: Hyoscyamine 0.125 MG SL/ORAL/CHEW SL (14:06)
[2021-10-06 14:32] VITALS: BP 146/88; PULSE 63; RESP 18; TEMP 36.1; O2SAT 97
== END 2021-10-06 14:55 | disposition home or self-care (01) ==
PROVIDERS: Visit Provider Surgery
PROC: 0DJD8ZZ Inspection of Lower Intestinal Tract, Via Natural or Artificial Opening Endoscopic (ICD-10-PCS; CPT 45378; principal; 2021-10-06 13:30)
DX: K64.1 Second degree hemorrhoids (principal); Z95.810 Presence of automatic (implantable) cardiac defibrillator; I42.8 Other cardiomyopathies
CPT/HCPCS: 45398; J3490

== ENCOUNTER 2021-10-08 08:57 | Outpatient (CLI) | payer MEDICARE, SELFPAY ==
--- NOTE | 2021-10-08 08:45 | RT.EKG_ITS ---
APPROVED REPORT Exam: Resting ECG Reason for Exam: CAD Patient Location: O HR:59 bpm ECG Measurements Heart Rate 59 AXIS VT 187 P 0 QRSd 120 QRS 24 QT 411 T 60 QTc 408 Conclusion Sinus rhythm...normal P axis, V-rate 50- 99 Nonspecific intraventricular conduction delay...QRSd >115mS, not LBBB/RBBB Anteroseptal infarct, old...Q >40mS, V1-V2
== END 2021-10-08 08:58 | disposition home or self-care (01) ==
LOC: DI.CARD 08:58
PROVIDERS: Visit Provider Internal Medicine Cardiovascular Disease
DX: I25.10 Atherosclerotic heart disease of native coronary artery without angina pectoris (principal); R94.31 Abnormal electrocardiogram [ECG] [EKG]; I25.2 Old myocardial infarction
CPT/HCPCS: 93010

== ENCOUNTER → 2021-10-08 10:31 | Outpatient (BNVA) | payer MEDICARE, SELFPAY | PROVIDERS: Visit Provider Internal Medicine Cardiovascular Disease | DX: I42.8 Other cardiomyopathies (principal); I10 Essential (primary) hypertension; I25.10 Atherosclerotic heart disease of native coronary artery without angina pectoris; Z95.810 Presence of automatic (implantable) cardiac defibrillator | CPT/HCPCS: 93005; 99213 ==

== ENCOUNTER → 2021-10-13 10:49 | Outpatient (BNVA) | payer MEDICARE, SELFPAY | PROVIDERS: Visit Provider Physical Therapy Assistant | DX: L02.31 Cutaneous abscess of buttock (principal) | CPT/HCPCS: 10060; 99215 ==

== ENCOUNTER → 2021-10-14 09:49 | Outpatient (BNVA) | payer MEDICARE, SELFPAY | PROVIDERS: Visit Provider Physical Therapy Assistant | DX: Z51.89 Encounter for other specified aftercare (principal); L02.31 Cutaneous abscess of buttock | CPT/HCPCS: 99213 ==

== ENCOUNTER → 2021-10-19 13:47 | Outpatient (BNVA) | payer MEDICARE, SELFPAY | PROVIDERS: Visit Provider Physical Therapy Assistant | DX: L02.31 Cutaneous abscess of buttock (principal); Z51.89 Encounter for other specified aftercare | CPT/HCPCS: 99214 ==

== ENCOUNTER → 2021-10-25 10:52 | Outpatient (BNVA) | payer MEDICARE, SELFPAY | PROVIDERS: Visit Provider Physical Therapy Assistant | DX: L02.31 Cutaneous abscess of buttock (principal); Z51.89 Encounter for other specified aftercare | CPT/HCPCS: 99213 ==

== ENCOUNTER → 2021-11-11 10:47 | Outpatient (BNVA) | payer MEDICARE, SELFPAY | PROVIDERS: Visit Provider Surgery | DX: L02.31 Cutaneous abscess of buttock (principal); Z51.89 Encounter for other specified aftercare | CPT/HCPCS: 99212 ==

== ENCOUNTER 2022-02-01 03:59 | Outpatient (CLI) | payer MEDICARE, SELFPAY ==
[2022-02-01 13:13] LABS: Calculated LDL 77 mg/dL (<100); Cholesterol 149 mg/dL (<200); HDL Cholesterol 49 mg/dL (40-60); TSH (W/Ref FT4) 4.15 uIU/mL (0.36-3.74); Triglyceride 115 mg/dL (<150)
[2022-02-01 14:21] LABS: FREE T4 0.98 ng/dL (0.76-1.46)
== END 2022-02-01 04:00 | disposition home or self-care (01) ==
LOC: LOS 03:59
PROVIDERS: PCP Nurse Practitioner Family; Visit Provider Nurse Practitioner Family
DX: R53.83 Other fatigue (principal); I10 Essential (primary) hypertension; E78.5 Hyperlipidemia, unspecified
CPT/HCPCS: 36415; 80061; 84439; 84443

== ENCOUNTER → 2022-02-22 09:47 | Outpatient (BNVA) | payer MEDICARE, SELFPAY | PROVIDERS: PCP Nurse Practitioner Family; Referring Provider Nurse Practitioner Family; Visit Provider Urology | DX: R31.9 Hematuria, unspecified (principal) | CPT/HCPCS: 81003; 99213 ==

== ENCOUNTER 2022-09-14 00:17 | Outpatient (CLI) | payer MEDICARE, SELFPAY ==
--- NOTE | 2022-09-14 08:06 | DI.RAD_ITS ---
Exam(s) XR HIP PELVIS ADULT BL EXAM: XR HIP PELVIS ADULT BL CLINICAL HISTORY: increasing pain, BOTH HIPS, G89.4. TECHNIQUE: 2D digital imaging was performed of the pelvis and bilateral hips. Four images were obta ined. AP pelvis and lateral views of both hips were obtained. COMPARISON: CR XR hip RT complete AP pelvis from 07/31/2018 FINDINGS: BONES: No acute fracture is present. No bony destructive lesion is seen. There is an unchanged sclero tic focus in the left iliac bone which may represent a bone island. JOINTS: No dislocation present. There are degenerative changes of the hips bilaterally characterized by joint space narrowing. Moderate degenerative changes are seen in the visualized lumbosacral spine . SOFT TISSUE: Atherosclerosis is present. IMPRESSION: Degenerative changes of the hips bilaterally. Unremarkable radiographs of the pelvis DATA REPOSITORY: RADIATION DOSE DELIVERED:
== END 2022-09-14 00:37 ==
LOC: DI 00:19
PROVIDERS: PCP Nurse Practitioner Family; Visit Provider Nurse Practitioner Family
DX: M16.0 Bilateral primary osteoarthritis of hip (principal)
CPT/HCPCS: 73521

== ENCOUNTER → 2022-12-08 10:31 | Outpatient (BNVA) | payer MEDICARE, SELFPAY | PROVIDERS: PCP Nurse Practitioner Family; Referring Provider Nurse Practitioner Family; Visit Provider Student in an Organized Health Care Education/Training Program | DX: M16.11 Unilateral primary osteoarthritis, right hip (principal) | CPT/HCPCS: 99213 ==

== ENCOUNTER → 2022-12-22 14:04 | Outpatient (BNVA) | payer MEDICARE, SELFPAY | PROVIDERS: PCP Nurse Practitioner Family; Referring Provider Nurse Practitioner Family; Visit Provider Physician Assistant | DX: M16.11 Unilateral primary osteoarthritis, right hip (principal) | CPT/HCPCS: 20611; J1040 ==

== ENCOUNTER → 2023-02-21 09:40 | Outpatient (BNVA) | payer MEDICARE, SELFPAY | PROVIDERS: PCP Nurse Practitioner Family; Visit Provider Urology | DX: R31.9 Hematuria, unspecified (principal) | CPT/HCPCS: 81003; 99213 ==

== ENCOUNTER → 2023-04-11 11:26 | Outpatient (CLI) | payer MEDICARE, SELFPAY ==
--- NOTE | 2023-04-11 08:45 | DI.RAD_ITS ---
Exam(s) XR LUMBAR SPINE COMPLETE EXAM: XR LUMBAR SPINE COMPLETE CLINICAL HISTORY: evaluate pathology,lumbar back pain, m54.50. TECHNIQUE: 2D digital imaging was performed of the lumbar spine. Five images were obtained. AP, la teral, right oblique, left oblique and L5-S1 spot views were obtained. COMPARISON: CT ABD PELVIS WITH CONTRAST from 07/31/2016 FINDINGS: BONES: No fracture or destructive lesion. There are endplate osteophytes at all levels of the lumbar spine. Degenerative changes of the facets are seen predominantly at L3-4, L4-5 and L5-S1. DISKS: There is disc space narrowing at all levels of the lumbar spine. There are vacuum discs at L4 -5 and L5-S1. ALIGNMENT: Lumbar spinal alignment is within normal limits. No spondylolysis or spondylolisthesis. SOFT TISSUE: Vascular calcifications are present. IMPRESSION: Marked degenerative changes seen in the lumbar spine. DATA REPOSITORY: RADIATION DOSE DELIVERED:
== END ==
PROVIDERS: PCP Nurse Practitioner Family; Visit Provider Nurse Practitioner Family
DX: M51.36 Other intervertebral disc degeneration, lumbar region (principal)
CPT/HCPCS: 72110

== ENCOUNTER 2023-12-11 18:39 | Outpatient (REF) | payer MEDICARE, SELFPAY ==
--- OUTSIDE RECORDS SUMMARY | 2023-12-11 18:41 | XMS_ITS | Encounter Summary ---
Author Organization [facility] [place] [address] Care Team Providers Care Milking Worker Name Role Phone Andrew Siu DNP Primary Care Provider [phone] Reason for Visit * Auth/Cert (Routine) Specialty Diagnoses / Procedures Referred By Contac t Referred To Contact Diagnoses Chronic a-fib Presence of Watchman left atrial appendage closure device s/p Watchman 45d f/u Procedures PRG TALA REAL TIME IMG 2D W PRB IMG ACQUIS I&R TRANSESOPHAGEAL ECHOCARDIOGRAM (WRVU 2.3) Terry Marks MD [facility] [place] [address] [place] [address] [facility] Referral ID Status Reason Start Date Expiration Date Visits Re quested Visits Authorized [id number] 1 1 Encounter Details Date Type Department Care Team (Late st Contact Info) Description 08/29/2023 2:00 PM EDT Office Visit Cardiology at [address] [id number] Clarice Bull APRN [facility] [place] [address] [place] [address] PAF (paroxysmal atrial fibrillation) Social History Tobacco Use Types Packs/Day Years Used Date Smoking Tobacco: Former Cigarettes Q uit: 01/12/1996 Smokeless Tobacco: Never Comments:stopped 15 years Alcohol Use Standard Drinks/Week Comments Yes 1 (1 standard drink = 0.6 oz pur e alcohol) 1 drink a day DH IPV Inpatient Questions Answer Date Recorded Does Anyone Try to Keep You From Having Contact with Others or Doing Things Outside Your Home? unable to answer (comment required) 08/29/2023 Feels Threatened by Someone unable to an swer (comment required) 08/29/2023 Feels Unsafe at Home or Work/School unab le to answer (comment required) 08/29/2023 Physical Signs of Abuse Present no 08/29/2023 Sex and Gender Information Value Date Recorded Sex Assigned at Not on file Gender Identity Not on file Sexual Orientation Not on file documented as of this encounter Last Filed Vital Signs Vital Sign Reading Time Taken Comments Blood Pressure 131/82 08/29/2023 1:41 PM EDT Pulse 61 08/29/2023 1:41 PM EDT Temperature - - Respiratory Rate - - Oxygen Saturation 95% 08/29/2023 1:41 PM EDT Inhaled Oxygen Concentration - - Weight 108 kg (238 lb) 08/29/2023 1:41 PM EDT Height 198.1 cm (6' 6) 08/29/2023 1:41 PM EDT Body Mass Index 27.5 08/29/2023 1:41 PM EDT documented in this encounter Progress Notes * Clarice Bull, SONIA - 08/29/2023 2:00 PM EDT Images from the original note were not included. [facility] [place] [id number] Structural Heart Follow Up Jimmie J Parisa Primary Care Provider: Andrew Siu DNP REFERRING PROVIDER: Chivo Enriquez CHIEF COMPLAINT: No chief complaint on file. PROBLEM LIST: PAF NICM HTN LBBB ETOH Hematuria Subjective: HPI: Jimmie Mccauley is a 78 y.o. male with past medical history of a paroxysmal atrial fibrillation and is referred by POLA Tarango for consideration of left atrial appendage closure options. Please refer to recent clinic notes for a detailed history and assessment. In brief, the patient has a history of hematuria while on Eliquis and is looking for nonpharmacologic ways to manage stroke risk . 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 Hospital course was without complication. However in the days following he noted blood in his stooland was instructed to stop aspirin and continue Plavix monotherapy. Despite this he continued to have bleeding issues and was subsequently switched to aspirin monotherapy, with no further bleeding. He has been tolerating this well since that time, hemoglobin today 16. Since the last visit, there have been no interim illnesses or hospitalizations, ED visits, or symptoms consistent with TIA or Stroke. Alcohol level for labs Patient Active Problem List Diagnosis Code Non-ischemic cardiomyopathy I42.8 Heart failure chronic systolic dysfunction I50.9 Alcohol use Z78.9 LBBB (left bundle branch block) I44.7 Complete heart block I44.2 HX SUDDEN CARDIAC ARREST Pericarditis I31.9 Pulmonary embolism I26.99 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? R07.9 Biventricular implantable cardioverter-defibrillator in situ- [facility] Z95.810 ICD (implantable cardioverter-defibrillator) malfunction - [facility] T82.118A Hypertension I10 A-fib I48.91 ROS: Activity level: No significant limitations Denies chest pain, dyspnea, palpitations, near-syncope, or syncopal events. Denies weight gain, swelling in the abdomen/lower extremities, orthopnea, PND. 12+ ROS reviewed and negative except as detailed in the HPI. Medications: Current Outpatient Medications Medication Sig Dispense Refill aspirin EC 81 mg EC (DR) tablet Take 1 tablet by mouth daily. 30 tablet 3 metoprolol succinate XL (Toprol-XL) 50 mg ER 24 hr tablet Take 1 tablet by mouth daily. (Patient taking differently: Take 50 mg by mouth nightly.) 30 tablet 12 pravastatin (Pravachol) 20 mg tablet Take 20 mg by mouth nightly. gabapentin (Neurontin) 300 mg capsule Take 300 mg by mouth nightly. Indications: neuropathic pain finasteride (Proscar) 5 mg tablet Take 5 mg by mouth nightly. losartan (COZAAR) 100 mg Tablet Take 1 tablet by mouth daily. (Patient taking differently: Take 100mg by mouth nightly.) 90 tablet 0 amLODIPine (Norvasc) 5 mg Tablet Take 1 tablet by mouth daily. (Patient taking differently: Take 5 mg by mouth nightly.) 90 tablet 3 multivitamin (THERAGRAN) Tablet Take 1 tablet by mouth daily. irsgspo-dhushynaityqy-kgdmdvli (EXCEDRIN MIGRAINE) 250-250-65 mg per tablet Take 1 tablet by mouth every 6 hours as needed. ibuprofen (ADVIL;MOTRIN) 200 mg tablet Take 400 mg by mouth every 6 hours as needed. hydroCODone-acetaminophen (VICODIN) 5-500 mg per tablet Take 1 tablet by mouth every 6 hours as needed. sildenafil (VIAGRA) 100 mg tablet Take 1 tablet by mouth once as needed. 10 tablet 0 zolpidem (AMBIEN) 10 mg tablet Take 1 tablet by mouth nightly. (Patient taking differently: Take 10mg by mouth nightly as needed.) 30 tablet 0 Objective: Vitals: Vitals: 08/29/23 1341 BP: 131/82 Pulse: 61 SpO2: 95% Weight: 108 kg (238 lb) Height: 198.1 cm (6' 6) Physical Exam: General: Pleasant male, no acute distress HEENT: Normocephalic, atraumatic, benign NECK: Supple, no masses, FROM CV: Normal rate, regular rhythm, paced RESP: CTAB, moving air well, symmetric chest excursion GI: Soft, nd, nttp EXT: trace edema NEURO: No gross focal deficits PSYC: Appropriate mood and affect, alert and oriented DERM: No rash, wwp Diagnostics: TALA 08/29/2023 Interpretation Summary Focused TALA performed to evaluate s/p LAAO - 31 mm WATCHMAN FLX PRO is well-seated in the left atrial appendage. There is no yudelka-device leak. There is no device related thrombus. - Biventricular function remains normal. - No pericardial effusion. - Trace bidirectional flow (right to left with valsalva/cough) is noted across the atrial septostomy site. When compared to the immediate post procedure TALA 07/13/2023 there is no significant change. TALA 07/13/23 Interpretation Summary TALA performed for guidance during left atrial appendage occluder placement. PRE-PROCEDURE: - There is no evidence of thrombus in the left atrial appendage. Measurements are annotated in the images. - Left ventricular systolic function is normal. LVEF is visually estimated at 60%. - Right ventricular systolic function is normal. - No significant valvular abnormalities. POST-PROCEDURE: - 31 mm WATCHMAN FLX PRO is well-seated in the left atrial appendage. Compression measurements are annotated. There is no yudelka-device leak. - Biventricular function remains normal. - No pericardial effusion. - Bidirectional flow across the two atrial septostomy sites. See report for additional findings. Assessment and Plan: PAF NICM 3. ICD placeent 4. ADHF 5. Hematuria; resolved Jimmie Mccauley is a 78 y.o. male who presents to the structural heart team in follow up of their recent LAAO procedure. NYHA I. CCS 0. The patient presents today for 45-day post LAAO closure follow-up visit. It is reassuring that he feels well at the time of this visit, denying new heart failure or anginal symptoms. He has had no subsequent bleeding issues since his transition to aspirin 81 mg monotherapy post procedure. With review of follow-up imaging today, the LAAO device is well-seated without significant peridevice leak ( <5 mm perivalvular leak) or noted thrombosis. He was unable to tolerate DAPT and will continue on aspirin 81 mg at this time. We will follow-up at time of 6-month post LAAO implant interval and consider transitioning to aspirin 81 daily alone, indefinitely. Follow up: for 6 month visit Clarice Bull APRN Thank you for the opportunity to participate in this patient's cardiovascular care. documented in this encounter Plan of Treatment Upcoming Encounters Date Type Department Care Team (Late st Contact Info) Description 02/26/2024 10:00 AM EST Hospital Encounter Non-[place] [address] Arrived documented as of this encounter Procedures Procedure Name Priority Date/Time Associated Diagnosis Comments EKG 12-LEAD Routine 08/29/2023 1:50 PM EDT PAF (paroxysmal atrial fibrillation) documented in this encounter Results * EKG 12 Lead (08/29/2023 1:50 PM EDT) Ventricular rate 64 BPM MUSE SYSTEM Atrial Rate 64 BPM MUSE SYSTEM P-R Interval 220 ms MUSE SYSTEM QRS Duration 140 ms MUSE SYSTEM Q-T Interval 504 ms MUSE SYSTEM QTC Calculated (Bezet) 519 ms MUSE SYSTEM Calculated P [place] 37 degrees MUSE SYSTEM Calculated R [place] -72 degrees MUSE SYSTEM Calculated T [place] 81 degrees MUSE SYSTEM INTERPRETATION AV dual-paced rhythm with prolonged AV conduction Abnormal ECG When compared with ECG of 13-JUL-2023 10:27, No significant change was found Confirmed by MD Emerita, [place] ([id number]) on 08/29/2023 5:21:52 PM MUSE SYSTEM 08/29/2023 1:50 PM EDT 08/29/2023 5:21 PM EDT Clarice Bull APRN ECG ORDERABLES MUSE SYSTEM documented in this encounter Visit Diagnoses Diagnosis PAF (paroxysmal atrial fibrillation) Atrial fibrillation documented in this encounter Care Teams Milking Worker Relationship Specialty Start Date End Date Andrew Siu DNP [address] [place] [id number] PCP - General Family Medicine 08/08/22 documented as of this encounter
--- OUTSIDE RECORDS SUMMARY | 2023-12-11 18:41 | XMS_ITS | Encounter Summary ---
Author Organization [facility] Address [address] [place] [id number] Care Team Providers Care Wellness Spa Manager Name Role Phone Unknown, Provider Primary Care Provider Encounter Details Date Type Department Care Team (Late st Contact Info) Description 12/03/2019 Lab Requisition [facility] Pathology & Laboratory Medicine - [address] [address] Outr Resulting Lab, Provider Social History Tobacco Use Types Packs/Day Years Used Date Smoking Tobacco: Never Assessed Sex and Gender Information Value Date Recorded Sex Assigned at Not on file Gender Identity Not on file Sexual Orientation Not on file documented as of this encounter Plan of Treatment Not on file documented as of this encounter Procedures Procedure Name Priority Date/Time Associated Diagnosis Comments LYME AB Routine 12/02/2019 9:03 EDT documented in this encounter Results * LYME AB (12/02/2019 9:03 EDT) Lyme Ab Negative Negative 12/04/2019 11:47 EDT [facility] Comment:New 3rd generation a ssay in use 08/28/2019 Blood VENOUS BLOOD / Unknown 12/02/2019 9:03 EDT 12/03/2019 15:46 EDT Provider Outr Resulting Lab IMMUNOLOGY A ND SEROLOGY ORDERABLES [facility] [address] [place] [address] documented in this encounter Visit Diagnoses Not on filedocumented in this encounter Care Teams Wellness Spa Manager Relationship Specialty Start Date End Date Unknown, Provider, PCP - General 02/05/15 documented as of this encounter
--- OUTSIDE RECORDS SUMMARY | 2023-12-11 18:41 | XMS_ITS | Clinical Summary ---
[facility] [place] [address] Care Team Providers Care Director Mba Name Role Phone Andrew Siu DNP Primary Care Provider Allergies Active Allergy Reactions Criticality Noted Date Comments Furosemide Rash 01/11/2012 Lisinopril Other (See Comments) 07/12/2023 COUGH Medications Medication Sig Dispensed Refills Start Date End Date Status sildenafil (VIAGRA) 100 mg tablet Take 1 tablet by mouth once as needed. 10 tablet 0 01/11/2011 Active zolpidem (AMBIEN) 10 mg tabletIndications:I nsomnia Take 1 tablet by mouth nightly. 30 tablet 0 01/11/2011 Active Additional Information Patient taking differently:10 mg OralNIGHTLY PRN, Reported on 07/12/2023 ibuprofen (ADVIL;MOTRIN) 200 mg tablet Take 400 mg by mouth every 6 hours as needed. Active hydroCODone-acetami nophen (VICODIN) 5-500 mg per tablet Take 1 tablet by mouth every 6 hours as needed. Active aspirin-acetaminoph en-caffeine (EXCEDRIN MIGRAINE) 250-250-65 mg per tablet Take 1 tablet by mouth every 6 hours as needed. Active multivitamin (THERAGRAN) Tablet Take 1 tablet by mouth daily. Active amLODIPine (Norvasc) 5 mg Tablet Take 1 tablet by mouth daily. 90 tablet 3 04/30/2020 Active Additional Information Patient taking differently:5 mg OralNIGHTLY, Reported on 07/12/2023 losartan (COZAAR) 100 mg TabletIndications:C hronic systolic heart failure Take 1 tablet by mouth daily. 90 tablet 01/31/2021 Active Additional Information Patient taking differently:100 mg OralNIGHTLY, Reported on 07/12/2023 gabapentin (Neurontin) 300 mg capsuleIndications: neuropathic pain Take 300 mg by mouth nightly. Indications: neuropathic pain Active finasteride (Proscar) 5 mg tablet Take 5 mg by mouth nightly. Active pravastatin (Pravachol) 20 mg tablet Take 20 mg by mouth nightly. 07/10/2022 Active metoprolol succinate XL (Toprol-XL) 50 mg ER 24 hr tablet Take 1 tablet by mouth daily. 30 tablet 12 02/08/2023 Active Additional Information Patient taking differently:50 mg OralNIGHTLY, Reported on 07/12/2023 aspirin EC 81 mg EC (DR) tablet Take 1 tablet by mouth daily. 30 tablet 3 07/14/2023 Active Active Problems Patient Care Coordination No te Formatting of this note migh t be different from the original. Home Oxygen Nightly 2 L/M via [employer] office is in [place] (phone [phone], ). Problem Noted Date Diagnosed Date A-fib 07/13/2023 Hypertension 02/15/2017 Overview (02/15/2017): BP ~ 130-150 mmHg Rx: Carvedilol, Losartan Assessment & Plan (02/15/2017 11:57 AM EST): Patient declines uptittration of carvedilol secondary to side effects Will uptitrate Losartan to 75 mg daily ICD (implantable cardioverte r-defibrillator) malfunction - [facility] 02/25/2016 Biventricular implantable ca rdioverter-defibrillator in situ- [facility] 02/19/2013 Overview (07/10/2016): 02/19/2013 Cardiac Resynchronization Therapy ICD Upgrade (explant of pacemaker pulse generator), peripheral Subclavian Venography, Cinefluoroscopy, pacemaker pocket revision and defibrillation safety margin testing, under General anesthesia Indication: Cardiomopathy with congestive heart failure and ventricular dyssynchrony, ventricular pacing New Ventricular electrode: [facility] [employer] Model# 7122Q-58 cm Serial #[id number] Implanted 02/18/2013 Bipolar, steroid-tipped, active-fixation DF-4 lead Access: Axillary vein Location: Right ventricular apical septum (old) Atrial electrode: Medtronic, Model # 5568-52 cm Serial # [id number] Implanted 06/14/2012 Bipolar, steroid-tipped, active-fixation IS-1 lead Access: Not known Location Right atrium anterolateral Coronary sinus electrode: [facility] [employer] 1458Q/86 Serial number [id number] Implanted 02/18/2013 Quadripolar passive active fixation lead Access: Subclavian vein Location: Coronary sinus, posterolateral vein Pulse generator: [facility] [employer] [id number] Serial number [id number] Implanted 02/18/2013 BOTTOM POLISHER ICD Location: Subcutaneous Old ventricular lead : Medtronic 5075 Serial number [id number] (capped 02/18/2013) Old pulse generator: Medtronic [id number] Serial number [id number] (removed 02/18/2013) Detection and termination of ventricular tachyarrhythmias was performed with the ICD set to minimal sensitivity A T-Wave shock (4 S1 at 400 ms with a 310 ms delay and 1.2 Joule biphasic waveform) induced ventricular fibrillation that was successfully terminated with a 20 Joule shock (impedance 68 ohms). Generator change 03/25/16: New Pulse Generator [facility] [employer] [id number] Serial number [id number] Implanted 03/25/2016 BOTTOM POLISHER ICD Location: Subcutaneous Assessment & Plan (09/13/2017 10:55 AM EDT): No device issues, tachycardia, device therapies Impedance alert in 04/06, had a flu HR histogram blunted at HR=60, intrinsic Sinus rate=51 bpm, and 52 APaced- VPaced, 98% BiV paced Assessment & Plan (02/15/2017 11:51 AM EST): No device issues, Cor Isaiah turned on today No therapies, high V paced rhythm percentage Assessment & Plan (07/11/2016 3:51 PM EDT): No Device issues, reviewed personally and with EP cardiology Assessment & Plan (02/03/2015 11:46 AM EST): Interrogated device: Pacing percentages: AP 42%; JUNIOR SYSTEMS ANALYST >99%Pacing percentages: AP 42%; JUNIOR SYSTEMS ANALYST >99% Mode switch episodes: None VHR: None Histograms reasonably well distributed. Assessment & Plan (08/07/2014 3:44 PM EDT): No device issues- -JUNIOR SYSTEMS ANALYST, 14%, AP-VS 86%, Normal pacer function Assessment & Plan (02/03/2014 2:21 PM EST): No device issues, or delivered therapies Apaced 86% Biv Paced>99% No fluid retention 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? Overview (10/16/2012): May be multifactorial, PE, and post pacer implant pericarditis Abnormal CT pulmonary angiogram Elevated hs CRP and ESR Assessment & Plan (07/11/2016 3:57 PM EDT): No recurrence Assessment & Plan (08/07/2014 3:50 PM EDT): Rare chestpain, low hs CRP=1.7 Assessment & Plan (12/26/2012 4:49 PM EDT): Improved clinically Assessment & Plan (10/16/2012 11:35 AM EDT): PE and Pericarditis, with clinical improvement with minimal shoulder pain, intermittent, resolution of diarrhea on lower dose colchicine Pericarditis 08/01/2012 Overview (11/13/2012): New chest discomfort ~ 2 weeks post DDD pacer implant Elevated C reactive protein; pericardial effusion->improved with NSAID and colchicine. Should be on colchicine until Nov 18, 2012 Elevated ProBNP, some clinical response with diuretics Stress Echo, LVEF=44%, no change, no definite ischemia, poor exercise tolerance, no pericardial effusion noted on stress Trivial pleural effusion on chest x-ray Elevated BNY=841 a-->3.8 AN ESR=53 on index presentation --> 25, 13 and 4 on medical therapy with colchicine, steroids not initiated Assessment & Plan (09/13/2017 10:51 AM EDT): No recurrent chestpain Assessment & Plan (02/15/2017 11:53 AM EST): Still with ongoing intermittent chest pain, usually not exertional, occurs both briefly (minute or 2 duration) or prolonged. Takes ibuprofen with relief, worse last month, currently stable Discussed colchicine either daily as prevention (previously with diarrhea) or intermittently prn with symptoms surface, pt willing to attempt PRN Assessment & Plan (07/11/2016 4:03 PM EDT): No recurrence Assessment & Plan (02/03/2015 11:41 AM EST): No recurrence Assessment & Plan (08/07/2014 3:38 PM EDT): No recurrent chestpain Assessment & Plan (02/03/2014 2:15 PM EST): Occasional chestpain, resolved with NSAID periodical use Assessment & Plan (12/26/2012 4:47 PM EDT): Stable, rare chest pain, self d/c'd colchicine approximately 3-4 weeks ago Assessment & Plan (11/13/2012 9:57 PM EDT): Occasional but still persistent chestpain, tolerating colchicine No clinical pericardial rub, or effusion on echo, with slight increase in hs CRP from last visit. Assessment & Plan (10/16/2012 11:14 AM EDT): Results for JATINDER MORRELL Charo ( ) as of 10/16/2012 11:04 Ref. Range 08/17/2012 08:44 08/24/2012 11:54 09/13/2012 08:33 10/16/2012 09:59 Sed Rate Latest Range: 0-15 mm/hr 58 (H) 35 (H) 13 4 CRP High Sens No range found 243.7 16.6 10.2 3.8 Assessment & Plan (09/13/2012 10:59 AM EDT): Clinical improvement with NSAID and colchicine, improvement of chest pain duration and frequency Significant improvement of inflammatory markers No pericardial friction rub, JVP flat Assessment & Plan (08/01/2012 10:11 AM EDT): Multiple chest pain syndrome, still persistent, but somewhat better. Both with exertion and positional components. No obvious ischemia on stress echocardiogram No pericardial effusion on echocardiogram Trivial pleural effusion on chest x-ray We'll rule out PE with CT pulmonary angiogram, and if normal, proceed with repeat right and left heart catheterization to reassess coronary anatomy, coronary angiogram images pending review Pulmonary embolism 08/01/2012 Overview (08/01/2012): New clinical dyspnea, chest pain syndrome, diaphoresis 06/2012 Recent hospitalization for CHB, pacer and prolonged driving from [place] to [place] Abnormal CT pulmonary angiogram 08/01/12 Lovenox bridge -->coumadin initiated 08/01/12 Assessment & Plan (02/03/2015 11:41 AM EST): No recurrence off anticoagulation Assessment & Plan (08/07/2014 3:38 PM EDT): Stable, off coumadin Assessment & Plan (02/03/2014 2:14 PM EST): No recurrence off coumadin Assessment & Plan (12/26/2012 4:48 PM EDT): Will continue coumadin, and d/c prior to BOTTOM POLISHER-D upgrade Assessment & Plan (11/13/2012 10:20 AM EDT): No recurrent symptoms on coumadin Assessment & Plan (10/16/2012 11:03 AM EDT): Stable with no recurrent symptoms and no bleeding complications on coumadin Willl continue coumadin for 6 months Assessment & Plan (08/01/2012 12:52 PM EDT): New PE, had precipitating circumstances Lovenox bridge -->coumadin initiated today Patient counseled, will defer cardiac cath unless clinical symptoms, warrant Non-ischemic cardiomyopathy 06/26/2012 Overview (09/13/2017): Dilated cardiomyopathy -- non-ischemic. Index presentation with acute decompensated heart failure 2001. a. Right and left heart catheterization demonstrating normal coronary arteries, EF=35%. b. Elevated PCWP and LVEDP with normal cardiac output. c. Echocardiogram 2001 -- EF=25% with 1+ mitral regurgitation. Echocardiogram 04/29/02 -- EF=25% Echocardiogram 02/19/04 -- EF=50%. LV=6.7/4.8 cm. Echocardiogram 03/25/05 -- EF=45%. LV=6.3/4.6 cm. Echocardiogram 07/07/06 -- EF=20%. LV=7.2/6.3 cm. Echocardiogram 09/17/06 EF=40% LV=6.8/5.0 cm Echocardiogram EF=47% Echocardiogram 09/19/06 -- EF=40 LV=5.9/4.8 cm. Echo 09/20/07 EF=40% LV=5.9/4.8 cm. (210/125 cc) Echo 01/15/09 EF=44% LV= Echo 01/05/10 EF=44% LV=6.4 Echo 01/11/11 EF=47% LV=4.9.35 cm Echo ([place]) 06/13/12 EF=50% New CHB Echo 07/10/12 EF= 44% No obvious ischemia Echo 08/17/12 EF=34% No effusion Echo 11/13/12 EF=36% No effusion LV=6.1/5.1 cm Echo 04/02/13 EF =51% No effusion Echo 02/03/14 EF =50-55% No effusion Echo 02/03/15 EF =59% No effusion Echo 07/11/16 EF =65% Echo 09/13/17 EF =57% d. Sinus rhythm with left bundle branch block, PVCs, QRS jpufcmmh=084 msec. Symptomatic CHB 06/13/12- s/p DDDR pacemaker 100% V paced rhythm SPEP/Free Light Chains- Results for JATINDER MORRELL ( ) as of 07/10/2016 19:35 Ref. Range 10/19/2015 14:06 10/19/2015 14:07 Free Soil Free Light Chains Latest Ref Range: 0.33 - 1.94 mg/dL 2.09 (H) Lambda Free Light Chains Latest Ref Range: 0.57 - 2.63 mg/dL 1.53 e. AHA/ACC stage C, NYHA functional class II. f. Intolerant to spironolactone. Currently on carvedilol and Cozaar with slightly elevated blood pressure relative to LV dysfunction. Assessment & Plan (09/13/2017 10:54 AM EDT): Stable, recovered LVEF on low dose b-makeda, high dose ARB, and previously intolerant to spironolactone, and BOTTOM POLISHER 98% V paced rhythm on BOTTOM POLISHER Assessment & Plan (02/15/2017 11:36 AM EST): Recovered LVEF and stable on medical therapy Assessment & Plan (07/11/2016 4:03 PM EDT): Persistent preservation of LV function on lower dose carvedilol, EF=65% Will attempt change from carvedilol to Toprol 50 mg daily, but monitor BP and clinical response / side effects. Assessment & Plan (02/03/2015 11:50 AM EST): Stable LVEF on medical and device/BiV therapy Assessment & Plan (08/07/2014 3:41 PM EDT): Stable, improved LV function with medical and BOTTOM POLISHER upgrade Assessment & Plan (02/03/2014 2:26 PM EST): Formal echo report pending, EF ~ 50% range Assessment & Plan (12/26/2012 4:38 PM EDT): Persistent LV dysfunction on medical therapy Assessment & Plan (11/13/2012 10:17 AM EDT): Persistent LV dysfunction in a patient with known DCM, and now V pacer dependent May be a candidate for BOTTOM POLISHER or BOTTOM POLISHER-D now that he is pacer dependent Assessment & Plan (10/16/2012 11:24 AM EDT): Drop in LVEF with pacer therapy, ?pacer induced LV dysfunction, with EF ~ 34%. Will repeat and persistent LV dysfunction, consider a retrial spironolactone, and device upgrade to BOTTOM POLISHER-P or BOTTOM POLISHER-D Assessment & Plan (09/13/2012 10:55 AM EDT): Slight drop in EF, ? V paced pacermaker induced, will need to follow closely Patient counseled regarding possible need for ICD or BOTTOM POLISHER-D upgrade Assessment & Plan (08/01/2012 10:09 AM EDT): Similar left ventricular systolic dysfunction, with regional wall motion abnormality and a history of left bundle branch block. Now paced rhythm, normal pacer function Recent decompensated heart failure-post pacemaker implant Assessment & Plan (06/26/2012 9:09 AM EDT): Stable if not improved LV function by report Now 99% JUNIOR SYSTEMS ANALYST rhythm, s/p DDD pacer, at risk for pacer induced CM, patient counseled Heart failure chronic systolic dysfunction 06/26 Overview (07/11/2016): Heart failure - well compensated Chronic Systolic dysfunction Non ischemic DCM Heart Failure Management: Yes/No No?/Discontinued/Why Beta makeda Yes Carvedilol ROSY/ARB Yes Losartan Spironolactone no Previously [id number], d/c secondary to side effects (hives), no rechallenge Amlodipine Yes Initiated 05/30 [place] AFIB? no Anticoagulated AICD/Type BOTTOM POLISHER-D LBBB, EF dropped to 35%- 04/02/13 back up at ~ 50% post BOTTOM POLISHER--> EF=65% NSR with LBBB, QRS= 170 ms CHB with symptomatic bradycardia, s/p DDD-R pacer 06/13/12 - LVEF ~ 50-55%, ICD not indicated, but, will likely be V paced, and higher risk for pacemaker induced LV dysfunction - LVEF deteriorated post pacer implant, EF ~ 35% on medical therapy AHA/ACC stage C, NYHA FTCII Assessment & Plan (09/13/2017 10:52 AM EDT): Appears well compensated , euvolemic BP is high, repeat !60/90 mmHg, 130-160 mmHg at home Will increase Losartan to 100 mg daily, pt previously intolerant to spironolactone, possible candidate for eplerenone Possible candidate for Entresto, but with recovered LVEF, will defer Assessment & Plan (02/15/2017 11:55 AM EST): Appears to be well compensated, and euvolemic, with low proBNP, and preserved recovered LVEF post BOTTOM POLISHER implant BP is high, patient not willing to increase Carvedilol, but could increase ARB. Previously did not tolerate spironolactone, but now with recovered LVEF Assessment & Plan (07/11/2016 3:53 PM EDT): Appears well compensated and euvolemic Assessment & Plan (02/03/2015 11:50 AM EST): Appears well compensated and euvolemic Previously did not tolerate spironolactone Possible candidate for Entresto Assessment & Plan (08/07/2014 3:42 PM EDT): Well compensated and euvolemic Assessment & Plan (02/03/2014 2:16 PM EST): Wellcompensated and euvolemic Assessment & Plan (12/26/2012 4:42 PM EDT): Well compensated and euvolemic on medical therapy Scheduled for generator upgrade to BOTTOM POLISHER-D Assessment & Plan (11/13/2012 10:19 AM EDT): Appears well compensated and euvolemic Persistent LV dysfunction borderline LVEF criteria for device therapy Assessment & Plan (10/16/2012 11:13 AM EDT): Appears to be fairly well compensated and euvolemic, improved exercise tolerance on appropriate medical therapy Intolerant to spironolactone in the past Assessment & Plan (09/13/2012 10:44 AM EDT): Appears better compensated, no dyspnea on exertion, able to walk 2 miles on flat surface, and walk up/down stairs without dyspnea Assessment & Plan (08/01/2012 10:08 AM EDT): Mild decompensation post pacemaker implant, improved with diuretics-Bumex Patient with adverse reaction with Lasix-causes a rash Appears better, and euvolemic on physical exam Assessment & Plan (06/26/2012 9:10 AM EDT): Well compensated and euvolemic BP well controlled Alcohol use 06/26/2012 Overview (06/26/2012): History of Alcohol use Assessment & Plan (06/26/2012 9:12 AM EDT): 1 drink per day LBBB (left bundle branch block) 06/26/2012 Overview (06/26/2012): WEP=361 ms New Symptomatic CHB 05/30-->declined pacer at initial presentation while traveling -S/p temp pacer-->Permanent DDDR pacer -LVEF~ 50-55%, ICD not indicated, but at risk for V paced rhythm dyssynchrony Assessment & Plan (09/13/2017 10:50 AM EDT): S/p BOTTOM POLISHER-D, 98% V Paced Assessment & Plan (08/07/2014 3:42 PM EDT): S/p BOTTOM POLISHER Assessment & Plan (12/26/2012 4:44 PM EDT): Persistent LV dysfunction on medical therapy, now pacer dependent with intrinsic LBBB, candidate for BOTTOM POLISHER-D Answered all questions the patient had regarding device indications, logistics and risk/benefits, advantages and disadvantages. Assessment & Plan (11/13/2012 10:21 AM EDT): Previously with LBBB, now with paced rhythm Assessment & Plan (10/16/2012 10:59 AM EDT): Patient would be a candidate for a BOTTOM POLISHER-D upgrade or BOTTOM POLISHER if persistent LV dysfunction Assessment & Plan (09/13/2012 10:51 AM EDT): S/p pacer now Ventricular paced rhythm, and decreas Assessment & Plan (06/26/2012 9:11 AM EDT): No V paced Complete heart block 06/26/2012 Overview (06/26/2012): Symptomatic bradycardia with CHB and LBBB, HR in the 20-30s Initially seen at a local ER, pacemaker recommended, but declined While in ICU, [place], called [facility] in cath report, but likely symptomatic bradycardia and CHB CHB- s/p temporary pacer 06/13/2012 - cath: Angiogram, mild irregularities of LAD, LCXF dominant, 30-40% mid RCA - No LV gram done S/p DDD-R Pacemaker Medtronic Adapta Dual Chamber Model # [id number], Serial number [id number] -[place], [place] Assessment & Plan (08/07/2014 3:42 PM EDT): S/p Pacer-->self contained behavior unit teacher-D Assessment & Plan (12/26/2012 4:47 PM EDT): S/p pacer, will upgrade Assessment & Plan (11/13/2012 10:21 AM EDT): No recurrent syncope/near syncope Assessment & Plan (10/16/2012 10:57 AM EDT): S/p perm DDD pacer, c/b pericarditis, and drop in LV function Assessment & Plan (09/13/2012 10:42 AM EDT): S/p DDD pacer Assessment & Plan (08/01/2012 10:07 AM EDT): S. post DDDR pacemaker, with no post-implant complications Recent chest discomfort, dyspnea, diaphoresis, with trivial pleural effusions noted on a chest x-ray Some clinical improvement with diuresis Assessment & Plan (06/26/2012 9:11 AM EDT): Pacer interrogation today, reviewed -JUNIOR SYSTEMS ANALYST= 66% AP-JUNIOR SYSTEMS ANALYST=33% Initiate into EP /Device clinic HX SUDDEN CARDIAC ARREST 06/26/2012 Overview (06/26/2012): Probably bradycardic induced, presenting with symptomatic CHB, and requiring defibrillation 05/2012 Resolved Problems Problem Noted Date Diagnosed Date Resolved Date Cardiac pacemaker 06/26/2012 04/02/2013 Overview (06/26/2012): Indications: Symptomatic CHB, with slow VR ~ 20-30 Current Platform: DDD-R Pacemaker Medtronic Adapta Dual Chamber Model # [id number], Serial number [id number] -[place], [place] Assessment & Plan (11/13/2012 10:20 AM EDT): No pacer complications, HR 60-90 bpm Assessment & Plan (06/26/2012 9:13 AM EDT): Stable post implant, CXR by report without pneumothorax Mild tenderness at the insertion site with mild ecchymoses Encounters Date Type Department Care Team Description 11/28/2023 10:00 AM EDT - 11/28/2023 11:59 PM EDT Hospital Encounter [place] [address] Discharge Disposition: Home 11/21/2023 1:00 PM EDT TH Visit (TeleHealth) Cardiology at [address] [id number] Clarice Bull APRN Atrial fibrillation, unspecified type; Biventricular implantable cardioverter-defibrill ator in situ- [facility]; Non-ischemic cardiomyopathy from Last 3 Months Immunizations Name Administration Dates Next Due Influenza PF, Split 01/11/2012,01/11/2011 Influenza Trivalent w/Preservative 01/11/2011 Influenza Vaccine, Whole 02/22/2007,02/06/2006,1 04/05/2004 Pneumococcal Polysaccharide (Pneumovax 23) 02/22 Social History Tobacco Use Types Packs/Day Years [...] on file Sexual Orientation Not on file Last Filed Vital Signs Vital Sign Reading Time Taken Comments Blood Pressure 131/82 08/29/2023 1:41 PM EDT Pulse 61 08/29/2023 1:41 PM EDT Temperature 36 ??C (96.8 ??F) 08/29/2023 12:45 PM EDT Respiratory Rate 18 08/29/2023 12:45 PM EDT Oxygen Saturation 95% 08/29/2023 1:41 PM EDT Inhaled Oxygen Concentration - - Weight 108 kg (238 lb) 08/29/2023 1:41 PM EDT Height 198.1 cm (6' 6) 08/29/2023 1:41 PM EDT Body Mass Index 27.5 08/29/2023 1:41 PM EDT Plan of Treatment Upcoming Encounters Date Type Department Care Team (Late st Contact Info) Description 02/26/2024 10:00 AM EST Hospital Encounter [place] [address] Arrived Health Maintenance Due Date Last Done Comments Hepatitis C Screening 06/17/1963 Tetanus/Diphtheria/Pertussis Vaccines (1 - Tdap) 1964 Zoster vaccine (1 of 2) 06/17/1995 Advance Directive 2000 Pneumoccocal Vaccine: 65+ (2 of 2 - PCV) 02/23/2008 02/22/2007 Covid-19 Vaccine (1 - 2022-2 4 season) 2023 Influenza (Flu) vaccine (1 o f 1 - Influenza standard series) 11/19/2023 01/11/2012, 01/11/2011, 01/11/2011, Additional history exists Colonoscopy Discontinued 03/31/2011, 03/31/2011 Colorectal Cancer Screening Discontinued Sigmoidoscopy (10 year) with FIT yearly Discontinued 03/31/2011, 03/31/2011 CT Colonography Discontinued FIT DNA Discontinued FIT Discontinued Sigmoidoscopy Discontinued Medical Devices Implanted Type Area Beam Builder Helper Device Identifier Shelf Expiration Date Model / Serial / Lot Stj : 3365-40 : [id number] Implanted:08/2016 (Quantity not on file) Cardiac Resynchronization Therapy - Defibrillator [facility] [employer] 3365-40 / [id number] / Jose Raul [id number] [id number]. Lead Medtronic Inc. 5568 / [id number] / Jose Raul [id number] Implanted: (Quantity not on file) Lead Medtronic Inc. 5568 / [id number] / Stj 1458q Quartet(R) [id number]. Implanted:04/2012 (Quantity not on file) Lead [facility] 1458Q QUARTET( R) / [id number] / Stj 7122q Durata(R) [id number]. Implanted:04/2012 (Quantity not on file) Lead [facility] [employer] 7122Q DURATA(R ) / [id number] / Stj 1458q Quartet(Tm) [id number] Implanted:04/2012 (Quantity not on file) Lead [facility] [employer] 1458Q QUARTET( TM) / [id number] / Stj 7122q Durata(Tm) [id number] Implanted:04/2012 (Quantity not on file) Lead [facility] [employer] 7122Q DURATA(T M) / [id number] / Watchman-07/12 Implanted:Qty : 1 on 07/13/2023 by Darrel Matthews MD Other [employer] [id number] / [id number] / [id number] Description:[employer] FLX Pro Explanted Type Area Beam Builder Helper Device Identifier Shelf Expiration Date Model / Serial / Lot Stj : 3249-40 : [id number] Implanted: (Quantity not on file) Explanted: (Quantity not on file) Cardiac Resynchronization Therapy - Defibrillator [facility] [employer] 3249-40 / [id number] / Description:[facility] [employer] [id number] Serial number [id number] Implanted 02/18/2013 BOTTOM POLISHER ICD Procedures Procedure Name Priority Date/Time Associated Diagnosis Comments PRO ICD INTERROGATION REMOTE UP TO 90 DAYS Routine 10/02/2023 5:07 AM EDT COLONOSCOPY Routine 03/31/2011 12:11 PM EST from Last 3 Months or Most Recently Relevant to Health Maintenance Results * Cardiac Device Check - Remote (10/02/2023 5:07 AM EDT) Anatomical Region Laterality Modality Other 10/02/2023 5:07 AM EDT Choco Euceda MD IMPLANTABLE CARDIAC DEVICE * COLONOSCOPY (03/31/2011 12:11 PM EST) COLONOSCOPY [facility] Endoscopy Patient Name: Jatinder Morrell ? Procedure Date: 03/31/2011 12:11 PM ? Date of : 1945 ? Age: 65 ? Order #: [id number] ? Procedure: ? Colonoscopy Indications: ? Screening for colorectal malignant ? neoplasm Providers: ? Laurent Hawkins MD, Ragini Pacheco, ? RN Referring MD: ?Carlos Valdez MD Medicines: ? Midazolam 7 mg IV, Fentanyl 250 ? micrograms IV Complications: ? No immediate complications Procedure: ? Pre-Anesthesia Assessment: ? - Mental Status Examination: alert ? and oriented. Airway Examination: ? normal oropharyngeal airway and neck ? mobility. Respiratory Examination: ? clear to auscultation. CV ? Examination: normal. ? - ASA Grade Assessment: III - A ? patient with severe systemic disease. ? The procedure, indications, benefits, ? risks and alternatives were explained ? to the patient. Specifically ? discussed were potential ? complications including, but not ? limited to, bleeding, perforation, ? infection, missing a cancer, and ? adverse medication reactions. The ? patient was placed in the left ? lateral decubitus position, and a ? digital rectal exam was performed. ? The Colonoscope was inserted in the ? anus and under direct visualization, ? advanced to the terminal ileum. ? Careful inspection was made as the ? colonoscope was withdrawn. The ? colonoscopy was performed without ? difficulty. The patient tolerated the ? procedure well. The quality of the ? bowel preparation was excellent. ? Findings: ? Difficult colonoscopy secondary to looping of the ? scope in sigmoid colonMultiple large-mouthed ? diverticula were found in the sigmoid colon and in ? the descending colon. Internal hemorrhoids were found ? during retroflexion and were small. ? Impression: ?- Diverticulosis sigmoid colon and ? descending colon. ? - Internal hemorrhoids. _ Laurent Hawkins MD 03/31/2011 1:14 PM ? Number of Addenda: 0 Note Initiated On: 03/31/2011 12:11 PM PROVATION 03/31/2011 12:1 1 PM EST Unknown GENERAL SURGICAL ORD ERABLES PROVATION from Last 3 Months or Most Recently Relevant to Health Maintenance Advance Directives * Attempt Cardiopulmonary Resuscitation - Inpatient (Latest Code Status on File) Date Activated Date Inactivated Comments 07/13/2023 6:53 AM 07/13/2023 4:59 PM Question Answer Comments Code Status decision made by: Patient * Attempt Cardiopulmonary Resuscitation - Inpatient Date Activated Date Inactivated Comments 02/17/2023 1:22 PM 02/17/2023 6:47 PM Question Answer Comments Code Status decision made by: Patient * Full Code Date Activated Date Inactivated Comments 03/25/2016 7:43 AM 03/25/2016 12:28 PM Question Answer Comments Does patient have capacity to make decision: Yes * Full Code Date Activated Date Inactivated Comments 02/18/2013 2:39 PM 02/19/2013 1:05 PM Question Answer Comments Order Status: Initial Order Does patient have decision m aking capacity? Yes, Order is based on Patients wishes. Care Teams Director Mba Relationship Specialty Start Date End Date Andrew Siu DNP [address] [place] [address] [place] [id number] PCP - General Family Medicine 08/08/22
--- OUTSIDE RECORDS SUMMARY | 2023-12-11 18:41 | XMS_ITS | Encounter Summary ---
[place] [address] Care Team Providers Care Line Supervisor Name Role Phone Andrew Siu DNP Primary Care Provider [phone] Encounter Details Date Type Department Care Team (Latest Contact Info) Description 11/28/2023 10:00 AM EDT - 11/28/2023 11:59 PM EDT Hospital Encounter [place] [address] Discharge Disposition: Home Social History Tobacco Use Types Packs/Day Years [...] on file documented as of this encounter Medications at Time of Discharge Medication Sig Dispensed Refills Start Date End Date aspirin EC 81 mg EC (DR) tablet Take 1 tablet by mouth daily. 30 tablet 3 07/14/2023 metoprolol succinate XL (Toprol-XL) 50 mg ER 24 hr tablet Take 1 tablet by mouth daily. 30 tablet 12 02/08/2023 pravastatin (Pravachol) 20 mg tablet Take 20 mg by mouth nightly. 07/10/2022 gabapentin (Neurontin) 300 mg capsuleIndications:dorian ropathic pain Take 300 mg by mouth nightly. Indications: neuropathic pain finasteride (Proscar) 5 mg tablet Take 5 mg by mouth nightly. losartan (COZAAR) 100 mg TabletIndications:Wardrobe Assistant shanae systolic heart failure Take 1 tablet by mouth daily. 90 tablet 01/31/2021 amLODIPine (Norvasc) 5 mg Tablet Take 1 tablet by mouth daily. 90 tablet 3 04/30/2020 multivitamin (THERAGRAN) Tablet Take 1 tablet by mouth daily. aspirin-acetaminophen- caffeine (EXCEDRIN MIGRAINE) 250-250-65 mg per tablet Take 1 tablet by mouth every 6 hours as needed. ibuprofen (ADVIL;MOTRIN) 200 mg tablet Take 400 mg by mouth every 6 hours as needed. hydroCODone-acetaminop hen (VICODIN) 5-500 mg per tablet Take 1 tablet by mouth every 6 hours as needed. sildenafil (VIAGRA) 100 mg tablet Take 1 tablet by mouth once as needed. 10 tablet 0 01/11/2011 zolpidem (AMBIEN) 10 mg tabletIndications:Inso mnia Take 1 tablet by mouth nightly. 30 tablet 0 01/11/2011 documented as of this encounter Plan of Treatment Upcoming Encounters Date Type Department Care Team (Late st Contact Info) Description 02/26/2024 10:00 AM EST Hospital Encounter [place] [address] Arrived documented as of this encounter Procedures Procedure Name Priority Date/Time Associated Diagnosis Comments PRO ICD INTERROGATION REMOTE UP TO 90 DAYS Routine 10/02/2023 5:07 AM EDT documented in this encounter Results * Cardiac Device Check - Remote (10/02/2023 5:07 AM EDT) Anatomical Region Laterality Modality Other 10/02/2023 5:07 AM EDT Choco Euceda MD IMPLANTABLE CARDIAC DEVICE documented in this encounter Visit Diagnoses Not on filedocumented in this encounter Care Teams Line Supervisor Relationship Specialty Start Date End Date Andrew Sui DNP [address] [place] [id number] PCP - General Family Medicine 08/08/22 documented as of this encounter
--- OUTSIDE RECORDS SUMMARY | 2023-12-11 18:41 | XMS_ITS | Encounter Summary ---
Author Organization [facility] Address [address] [place] [id number] Care Team Providers Care Motorcycle Tester Name Role Phone Unknown, Provider Primary Care Provider Encounter Details Date Type Department Care Team (Late st Contact Info) Description 02/18/2021 Lab Requisition [facility] Pathology & Laboratory Medicine - [address] [address] Outr Resulting Lab, Provider Social History Tobacco [...] Procedure Name Priority Date/Time Associated Diagnosis Comments PSA TOTAL, DIAGNOSTIC Routine 02/18/2021 10:25 EST documented in this encounter Results * PSA TOTAL, DIAGNOSTIC (02/18/2021 10:25 EST) PSA 0.9 0.0 - 6.5 ng/mL 02/18/2021 21:13 EST [facility] Blood VENOUS BLOOD / Unknown 02/18/2021 10:25 EST 02/18/2021 17:22 EST Narrative [facility] - 02/18/2021 21:13 EST NOTE: Serum PSA concentration should not be interpreted as absolute evidence for the presence or absence of malignant disease. Assayed on Siemens ADVIA Centaur XPT using chemiluminescent technology.??Values obtained by using different assay methods cannot be used interchangeably. Provider Outr Resulting Lab CHEMISTRY & BLOOD GAS ORDERABLES [facility] [address] [place] [address] documented in this encounter Visit Diagnoses Not on filedocumented in this encounter Care Teams Motorcycle Tester Relationship Specialty Start Date End Date Unknown, Provider, PCP - General 02/05/15 documented as of this encounter
--- OUTSIDE RECORDS SUMMARY | 2023-12-11 18:41 | XMS_ITS | Referral Summary ---
Author Organization [facility] Address [address] [place] [address] Care Team Providers Care Grocery Clerk Marking Name Role Phone Unknown, Provider Primary Care Provider Social History Tobacco Use Types Packs/Day Years Used Date Smoking Tobacco: Never Assessed Sex and Gender Information Value Date Recorded Sex Assigned at Not on file Gender Identity Not on file Sexual Orientation Not on file Plan of Treatment Not on file Care Teams Grocery Clerk Marking Relationship Specialty Start Date End Date Unknown, Provider, PCP - General 02/05/15
--- OUTSIDE RECORDS SUMMARY | 2023-12-11 18:41 | XMS_ITS | Clinical Summary ---
Author Organization [facility] Address [address] [place] [address] Care Team Providers Care Unclaimed Property Manager Name Role Phone Unknown, Provider Primary Care Provider + [phone] Social History Tobacco Use Types Packs/Day Years Used Date Smoking Tobacco: Never Assessed Sex and Gender Information Value Date Recorded Sex Assigned at Not on file Gender Identity Not on file Sexual Orientation Not on file Plan of Treatment Health Maintenance Due Date Last Done Comments Hepatitis C Screen 1945 RSV Immunization ( o r 60+ Years) (1 - 1-dose 60+ series) 2005 Fall Risk Screening 2010 COVID-19 Vaccine (2022-24 season) 2022 Care Teams Unclaimed Property Manager Relationship Specialty Start Date End Date Unknown, Provider, PCP - General 02/05/15
--- OUTSIDE RECORDS SUMMARY | 2023-12-11 18:41 | XMS_ITS | Encounter Summary ---
Author Organization [facility] Address [address] [place] [address] Care Team Providers Care Radar Repairer Name Role Phone Unavailable Primary Care Provider Unavailabl e Encounter Details Date Type Department Care Team (Late st Contact Info) Description 03/27/2007 Results Only [facility] [address] [place] [address] El Jaime, [address] [facility] ALLIE MACE [address] [place] [phone] Social History Tobacco Use Types Packs/Day Years Used Date Smoking Tobacco: Never Assessed Sex and Gender Information Value Date Recorded Sex Assigned at Not on file Gender Identity Not on file Sexual Orientation Not on file documented as of this encounter Plan of Treatment Not on file documented as of this encounter Procedures Procedure Name Priority Date/Time Associated Diagnosis Comments SURGICAL PATHOLOGY Routine 03/27/2007 0:00 EST documented in this encounter Results * SURGICAL PATHOLOGY (03/27/2007 0:00 EST) Pathology Report: SURGICAL PATHOLOGY REPORT Reports generated via electronic interface contain original data; however they are lacking the format of the original report. Caution should be taken when reading/interpreti ng unformatted reports. Name: ? JATINDER MORRELL ? Accession #: ? [id number] ? : ? 1945 (Age: 61) ??M ? Collect Date: ? 03/27/2007 ? Location: ? [facility] ? Receive Date: ? 03/28/2007 ? Provider: EL JAIME DO Copy to: REAGAN PEREZ MD ? Final Pathologic Diagnosis: ? Back, left, soft tissue, excision: - Mature adipose tissue consistent with lipoma. Document reviewed and electronically signed by: JORGE ANGUIANO MD Report ??Date: 03/30/2007 16:32 By the signature above, the attending physician certifies that he/she has personally conducted a gross and/or microscopic examination of the described specimens and rendered or confirmed the above diagnosis. Specimen(s) Received: ? Intramuscular lipoma left side of back Clinical History: ? Excision sebaceous cyst chest wall; excision lipoma on back Gross Description: ? Received in formalin labelled Berley and intramuscular lipoma left side of back is an unoriented moss-yellow lobulated soft tissue which weighs 260 grams and measures 14.5 x 9.5 x 2.8 cm. ??The cut surfaces are moss-yellow and lobulated. ??No areas of hemorrhage are grossly identified. ??The specimen is inked, serially sectioned, and shipping services sales representative sections are submitted as (A1) (A4). ??(Harleen Benitez)/[facility] End of Report [facility] 03/27/2007 03/28/2007 9:2 6 EST El Jaime DO PATHOLOGY ORDER TODD [facility] [address] [place] [address] documented in this encounter Visit Diagnoses Not on filedocumented in this encounter
--- OUTSIDE RECORDS SUMMARY | 2023-12-11 18:41 | XMS_ITS | Encounter Summary ---
Author Organization [facility] [place] [address] Care Team Providers Care Facility Manager Histology Name Role Phone Andrew Siu DNP Primary Care Provider [phone] Reason for Visit * Auth/Cert (Routine) Specialty Diagnoses / Procedures Referred By Contac t Referred To Contact Diagnoses Chronic a-fib Presence of Watchman left atrial appendage closure device s/p Watchman 45d f/u Procedures PRG TALA REAL TIME IMG 2D W PRB IMG ACQUIS I&R TRANSESOPHAGEAL ECHOCARDIOGRAM (WRVU 2.3) Terry Marks MD [facility] [place] [place] [address] [facility] Referral ID Status Reason Start Date Expiration Date Visits Re quested Visits Authorized [id number] 1 1 Encounter Details Date Type Department Care Team (Late st Contact Info) Description 08/29/2023 11:15 AM EDT - 08/29/2023 12:15 PM EDT [place] [id number] Terry Marks MD [facility] [place] [address] TRANSESOPHAGEAL ECHOCARDIOGRAM (WRVU 2.3) Social History Tobacco Use Types Packs/Day Years [...] Sign Reading Time Taken Comments Blood Pressure 139/95 08/29/2023 10:15 AM EDT Pulse 71 08/29/2023 10:15 AM EDT Temperature 36 ??C (96.8 ??F) 08/29/2023 10:15 AM EDT Respiratory Rate 18 08/29/2023 10:15 AM EDT Oxygen Saturation 97% 08/29/2023 10:15 AM EDT Inhaled Oxygen Concentration - - Weight 108 kg (238 lb 1.6 oz) 08/29/2023 10:15 A M EDT Height 198.1 cm (6' 6) 08/29/2023 10:15 AM EDT Body Mass Index 27.52 08/29/2023 10:15 AM EDT documented in this encounter Discharge Instructions * Discharge Instructions* Tonya Miller RN - 08/29/2023 11:55 AM EDT SAME DAY PROGRAM POST-OPERATIVE INSTRUCTIONS POST TRANSESOPHAGEL ECHOCARDIOGRAPHY A sore throat is normal after the procedure. It usually lasts several hours. Cold liquids and soothing lozenges will help ease the discomfort. You may resume your normal diet in two hours at 2PM. No driving for twenty-four hours. No heavy lifting, no climbing or activities that require balance for twenty-four hours. Please call you doctor if you develop: Difficulty swallowing or breathing Severe chest or abdominal pain Vomiting of blood If you are having problems or have additional concerns or questions please call: Cardiology Clinic 8am - 5pm Same Day Program 6am- 6:30pm Emergency Room after 6:30pm documented in this encounter Medications at Time of Discharge [...] by mouth nightly. losartan (COZAAR) 100 mg TabletIndications:Posting Clerk shanae systolic heart failure Take 1 tablet [...] 0 01/11/2011 documented as of this encounter Progress Notes * Arely Chavez RN - 08/29/2023 12:35 PM EDT 1235: Gag reflex present upon fuel testing technician. documented in this encounter H&P Notes * Anastasia Yeung MD - 08/29/2023 10:06 AM EDT Pre-Transesophageal Echo Assessment Mr. Morrell a 78 y.o. 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 He is referred for TALA for post-Watchman assessment. He has been taking only aspirin, no Plavix. The patient denies a history of difficulty swallowing or esophageal pathology. The patient denies any loose teeth. Exam reveals clear lungs, flat JVP at 90 degrees, regular rhythm without gallop or murmur, 2+ radial pulses bilaterally, and no LE edema. Mallampati 3 Allergies reviewed. Labs dated 08/16/23 reviewed. Notable for WBC 9.9. Previous echocardiogram dated 07/13/23 reviewed. TALA will be done with anesthesia in [place]. Please see forthcoming anesthesia note. The patient's questions regarding the procedure were answered. Written, informed consent was obtained after a thorough discussion of the risks and benefits of TALA as detailed in the printed consent form. Anastasia Yeung MD Assembler Leather Goods, PGY5 #[id number] documented in this encounter Plan of Treatment Upcoming Encounters Date Type Department Care Team (Late st Contact Info) Description 02/26/2024 10:00 AM [facility] Hospital Encounter [place] [address] Arrived documented as of this encounter Procedures Procedure Name Priority Date/Time Associated Diagnosis Comments TALA W LMTD SPECTRAL DOPPLER COLOR DOPPLER Routine 08/29/2023 12:19 PM EDT PAF (paroxysmal atrial fibrillation) Presence of Watchman left atrial appendage closure device TALA complete wo contrast ([id number]) 08/29/2023 11:32 AM EDT Chronic a-fib Presence of Watchman left atrial appendage closure device documented in this encounter Results * TALA W LMTD SPECTRAL DOPPLER COLOR DOPPLER (08/29/2023 12:19 PM EDT) Anatomical Region Laterality Modality Cardiac Other 08/29/2023 11:2 9 AM EDT Narrative 08/29/2023 1:43 PM EDT ? Transesophageal Echocardiogram Report Name: JATINDER MORRELL Charo ?Study Date: 08/29/2023 11:29 AM ? Patient Location: OR^ORMN2^A : 1945 ? Account: [id number] Age: 78 yrs Gender: Male Ordering Physician: CLARICE BULL Referring Physician: DINESH VILLATORO Reason For Study: WATCHMAN Exam Location: [facility]. Interpretation Summary Focused TALA performed to evaluate [...] TALA 07/13/2023 there is no significant change. Procedure There were no complications during the procedure. After suitable sedation by anesthesia, the probe was inserted without difficulty. A complete TALA study was performed under deep sedation with anesthesia provided by the anesthesiology service. Standard views were obtained in the transgastric, mid esophageal, and basal planes using a multiplane transesophageal echo probe. Additional evaluation with color flow Doppler and limited spectral Doppler was performed. Informed consent from the patient in writing. The risks and benefits of the procedure were explained in detail to the patient, including but not limited to the risk of aspiration, dysphagia, and esophageal perforation. Patient agreed to proceed. Left Ventricle Left ventricle is of normal size. Left ventricular ejection fraction is estimated visually at 60%. Right Ventricle The right ventricle is of normal size. There is a CIED lead in the right ventricle. Right ventricular systolic function is normal. There is a filamentous echodensity on the right atrial side of the right ventricular lead consistent with thrombin. Left Atrium 31 mm WATCHMAN FLX PRO is well-seated in the left atrial appendage. There is no uydelka-device leak. There is no device related thrombus. Right Atrium A pacemaker lead is present in the right atrium. Aortic Valve The aortic valve is tricuspid. The aortic leaflet excursion is normal. There is no aortic regurgitation. Mitral Valve The mitral valve is structurally normal. There is no mitral stenosis. There is trace mitral regurgitation. Tricuspid Valve The tricuspid valve is structurally normal. There is no tricuspid regurgitation. Pulmonic Valve The pulmonic valve is not well visualized. Great Arteries The aortic root measures 3.8cm at the sinus of Valsalva. The ascending aorta is not well visualized. Ascending Plaque grade 2: (extensive intimal thickening). Aortic Arch Plaque grade 2: (extensive intimal thickening). Descending Thoracic Aorta Plaque grade 2: (extensive intimal thickening). Pericardium/Pleural There is no pericardial effusion. Procedure Note Terry Marks MD - 08/29/2023 Transesophageal Echocardiogram Report Name: JATINDER MORRELL Study Date: 1:29 AM Patient Location:OR^ORIN2^A : 1945 Account: [id number] Age: 78 yrs Gender: Male Ordering Physician: CLARICE BULL Referring Physician: DINESH VILLATORO Reason For Study: WATCHMAN Exam Location: [facility]. Interpretation Summary Focused TALA performed to evaluate s/p LAAO - 31 mm WATCHMAN FLX PRO is well-seated in the left atrial appendage.There is no yudelka-device leak. There is no device related thrombus. - Biventricular function remains normal. - No pericardial effusion. - Trace bidirectional flow (right to left with valsalva/cough) is notedacross the atrial septostomy site. When compared to the immediate post procedure TALA 07/13/2023 there is no significant change. Procedure There were no complications during the procedure. After suitable sedationby anesthesia, the probe was inserted without difficulty. A complete TEEstudy was performed under deep sedation with anesthesia provided by theanesthesiology service. Standard views were obtained in the transgastric, mid esophageal,and basal planes using a multiplane transesophageal echo probe. Additionalevaluation with color flow Doppler and limited spectral Doppler was performed.Informed consent from the patient in writing. The risks and benefits of theprocedure were explained in detail to the patient, including but not limited to the riskof aspiration, dysphagia, and esophageal perforation. Patient agreed toproceed. Left Ventricle Left ventricle is of normal size. Left ventricular ejection fraction isestimated visually at 60%. Right Ventricle The right ventricle is of normal size. There is a CIED lead in the right ventricle. Right ventricular systolic function is normal. There is afilamentous echodensity on the right atrial side of the right ventricular leadconsistent with thrombin. Left Atrium 31 mm WATCHMAN FLX PRO is well-seated in the left atrial appendage. Thereis no yudelka-device leak. There is no device related thrombus. Right Atrium A pacemaker lead is present in the right atrium. Aortic Valve The aortic valve is tricuspid. The aortic leaflet excursion is normal.There is no aortic regurgitation. Mitral Valve The mitral valve is structurally normal. There is no mitral stenosis.There is trace mitral regurgitation. Tricuspid Valve The tricuspid valve is structurally normal. There is no tricuspidregurgitation. Pulmonic Valve The pulmonic valve is not well visualized. Great Arteries The aortic root measures 3.8cm at the sinus of Valsalva. The ascendingaorta is not well visualized. Ascending Plaque grade 2: (extensive intimalthickening). Aortic Arch Plaque grade 2: (extensive intimal thickening). DescendingThoracic Aorta Plaque grade 2: (extensive intimal thickening). Pericardium/Pleural There is no pericardial effusion. Clarice Bull APRN ECHO ORDERABLES documented in this encounter Visit Diagnoses Diagnosis PAF (paroxysmal atrial fibrillation) Atrial fibrillation Presence of Watchman left atrial appendage closure device Chronic a-fib Atrial fibrillation Presence of Watchman left atrial appendage closure device documented in this encounter Administered Medications Inactive Administered Medications - up to 3 most recent administrations Medication Order MAR Action Action Date Dose Rate Site lidocaine (Xylocaine) 5 % ointment PRN, Starting on Mon08/29/23 at 1136, Until Mon08/29/23 at 1313, Intra-Operative (Intra-Procedure) Given 08/29/2023 11:36 AM EDT 1 inch documented in this encounter Active and Recently Administered Medications Times are shown in EDT. Continuous Medication Order 08/27/2023 08/28/2023 08/29/2023 lactated ringers infusion (CANCELED) 1,000 mL, at 100 mL/hr, Intravenous, CONTINUOUS, Starting on Mon08/29/23 at 1045, Until Mon08/29/23 at 1253, Day of Surgery (Day of Procedure) 1130 (New Bag - Prov ider: Yasmin Tyler CRNA)1213 (Anesthesia Volume Adjustment - Provider: Yasmin Tyler CRNA) PRN Medication Order 08/27/2023 08/28/2023 08/29/2023 lidocaine (Xylocaine) 5 % ointment (CANCELED) PRN, Starting on Mon08/29/23 at 1136, Until Mon08/29/23 at 1313, Intra-Operative (Intra-Procedure) 1136 (Given - Provid er: Anastasia Yeung MD) documented in this encounter Care Teams Facility Manager Histology Relationship Specialty Start Date End Date Andrew Siu DNP [address] [place] [id number] PCP - General Family Medicine 08/08/22 documented as of this encounter
--- OUTSIDE RECORDS SUMMARY | 2023-12-11 18:41 | XMS_ITS | Encounter Summary ---
[place] [address] Care Team Providers Care Teller Vault Name Role Phone Andrew Siu NAV Primary Care Provider [phone] Reason for Referral * Diagnostic Test (Routine) - New Request Specialty Diagnoses / Procedures Referred By Theodora de la torre Referred To Contact Cardiology Diagnoses Atrial fibrillation, unspecified type Procedures Echocardiogram Transthoracic Phil Bull APRN [facility] [place] [address] [facility] [place] [address] Referral ID Status Reason Start Date Expiration Date Visits Requested Visits Authorized [id number] New Request Specialty Service Requested 11/21/2023 11/20/2024 1 1 Encounter Details Date Type Department Care Team (Latest Contact Info) Description 11/21/2023 1:00 PM EDT TH Visit (TeleHealth) Cardiology at [address] [phone] Phil Bull APRN [facility] [place] [address] Atrial fibrillation, unspecified type; Biventricular implantable cardioverter-defibrilla tor in situ- [facility]; Non-ischemic cardiomyopathy Social History Tobacco Use Types Packs/Day Years [...] on file documented as of this encounter Progress Notes * Phil Bull, MERIT SYSTEM DIRECTOR - 11/21/2023 1:00 PM EDT Images from the original note were not included. [facility] [place] [address] Structural Heart Follow Up - Telehealth Jimmie Mccauley Primary Care Provider: Andrew Siu DNP REFERRING PROVIDER: Chivo Enriquez CHIEF COMPLAINT: No chief complaint on file. PROBLEM LIST: PAF NICM HTN LBBB ETOH Hematuria Subjective: HPI: Jimmie Mccauley is a 78 y.o. male with past medical history of a paroxysmal atrial fibrillation, hematuria while on Eliquis, complete heart block s/p BLANKER OPERATOR-D, non-ischemic cardiomyopathy, NFimpEF,LBBB, HTN, and ETOH use who is s/p LAAO closure on 07/13/23 with 31 mm Watchman FLX (Dr. Matthews). Hospital course was without complication. However in the days following he noted blood in his stooland was instructed to stop aspirin and continue Plavix monotherapy. Despite this he continued to have bleeding issues and was subsequently switched to aspirin monotherapy, with no further bleeding. He has been tolerating this well since that time. Today he denies new neurologic changes, bleeding issues, black stools, hematuria or other overt bleeding issues. BP reasonably controlled 130/80 on recent read. Denies anginal or HF symptoms. Patient Active Problem List Diagnosis Code Non-ischemic [...] Tablet Take 1 tablet by mouth daily. mniolug-tpyqdqintimmg-hzrfrwef (EXCEDRIN MIGRAINE) 250-250-65 mg per tablet Take [...] nightly as needed.) 30 tablet 0 Objective: Diagnostics: TALA 08/2023 Interpretation Summary Focused TALA performed to evaluate [...] CCS 0. The patient presents today for 6 month post LAAO closure follow-up visit. He feels well at the time of this visit, denying new anginal or heart failure symptoms. He has had no subsequent bleeding issues since his transition to aspirin 81 mg monotherapy post procedure which he should remain on at this time. Follow up: One year from procedure date - June 2024 Phil Bull APRN Thank you for the opportunity to participate in this patient's cardiovascular care. documented in this encounter Miscellaneous Notes * Addendum Note - Phil Bull APRN - 11/21/2023 1:00 PM EDTAddended by: PHIL BULL on: 11/21/2023 12:57 PM Modules accepted: Orders documented in this encounter Plan of Treatment Upcoming Encounters Date Type Department Care Team (Late st Contact Info) Description 02/26/2024 10:00 AM [facility] Hospital Encounter [place] [address] Arrived Scheduled Orders Name Type Priority Associated Diagnoses Orde r Schedule Echocardiogram Transthoracic Echocardiography Routine Atrial fibrillation, unspecified type Expected: 05/20/2024 (Approximate), Expires: 11/19/2024 documented as of this encounter Visit Diagnoses Diagnosis Atrial fibrillation, unspecified type Biventricular implantable cardioverter-defibrillator in situ- [facility] Non-ischemic cardiomyopathy Other primary cardiomyopathies documented in this encounter Care Teams Teller Vault Relationship Specialty Start Date End Date Andrew Siu DNP [address] [place] [address] PCP - General Family Medicine 08/08/22 documented as of this encounter
--- OUTSIDE RECORDS SUMMARY | 2023-12-11 18:41 | XMS_ITS | Encounter Summary ---
[place] [address] Care Team Providers Care Development Coordinator Name Role Phone Andrew Siu DNP Primary Care Provider [phone]- [phone] Encounter Details Date Type Department Care Team (Latest Contact Info) Description 08/30/2023 10:00 AM EDT - 08/30/2023 11:59 PM EDT Hospital Encounter Non-Invasive [place] [address] Discharge Disposition: Home Social History Tobacco Use [...] by mouth nightly. losartan (COZAAR) 100 mg TabletIndications:Substation Designer shanae systolic heart failure Take 1 tablet [...] AM EST Hospital Encounter Non-Invasive [place] [address] Arrived documented as of this encounter Procedures Procedure Name Priority Date/Time Associated Diagnosis Comments PRO ICD INTERROGATION REMOTE UP TO 90 DAYS Routine 07/04/2023 5:18 AM EDT documented in this encounter Results * Cardiac Device Check - Remote (07/04/2023 5:18 AM EDT) Anatomical Region Laterality Modality Other 07/04/2023 5:18 AM EDT Clarice Simms MD IMPLANTABLE CARDIAC DEVICE documented in this encounter Visit Diagnoses Not on filedocumented in this encounter Care Teams Development Coordinator Relationship Specialty Start Date End Date Andrew Siu DNP [address] [place] [address] PCP - General Family Medicine 08/08/22 documented as of this encounter
--- OUTSIDE RECORDS SUMMARY | 2023-12-11 18:41 | XMS_ITS | Encounter Summary ---
Author Organization [facility] [place] [address] Care Team Providers Care System Consultant Name Role Phone Andrew Siu DNP Primary Care Provider [phone] Reason for Referral * Diagnostic Test (Routine) - Closed Specialty Diagnoses / Procedures Referred By Contac t Referred To Contact Cardiology Diagnoses PAF (paroxysmal atrial fibrillation) Presence of Watchman left atrial appendage closure device Procedures Transesophageal Echocardiogram (TALA) Dinesh Matthews MD [facility] [place] [address] [facility] [place] [address] Referral ID Status Reason Start Date Expiration Date V isits Requested Visits Authorized [id number] Closed Specialty Service Requested 08/01/2023 07/31/2024 1 1 Reason for Visit * Auth/Cert (Routine) Specialty Diagnoses / Procedures Referred By Contac t Referred To Contact Diagnoses Chronic a-fib Presence of Watchman left atrial appendage closure device s/p Watchman 45d f/u Procedures PRG TALA REAL TIME IMG 2D W PRB IMG ACQUIS I&R TRANSESOPHAGEAL ECHOCARDIOGRAM (WRVU 2.3) Terry Marks MD [facility] [place] [address] [facility] Referral ID Status Reason Start Date Expiration Date Visits Re quested Visits Authorized [id number] 1 1 Encounter Details Date Type Department Care Team (Late st Contact Info) Description 08/29/2023 9:36 AM EDT - 08/29/2023 1:02 PM EDT Hospital Encounter [place] [phone] Terry Marks MD [facility] [place] [address] PAF (paroxysmal atrial fibrillation); Presence of Watchman left atrial appendage closure device Discharge Disposition: Home Social History Tobacco Use [...] Sign Reading Time Taken Comments Blood Pressure 146/82 08/29/2023 12:45 PM EDT Pulse 71 08/29/2023 10:15 AM EDT Temperature 36 ??C (96.8 ??F) 08/29/2023 12:45 PM EDT Respiratory Rate 18 08/29/2023 12:45 PM EDT Oxygen Saturation 95% 08/29/2023 12:45 PM EDT Inhaled Oxygen Concentration - - [...] by mouth nightly. losartan (COZAAR) 100 mg TabletIndications:Twisting Frame Fixer shanae systolic heart failure Take 1 tablet [...] PM EDT 1235: Gag reflex present upon testing projects administrator. documented in this encounter H&P Notes * Anastasia Yeung MD - 08/29/2023 10:06 AM EDT Pre-Transesophageal Echo Assessment Mr. Morrell a 78 y.o. YO male with history notable for Hfimp EF(55%), LBBB s/p PARENT EDUCATOR-D , paroxysmal atrial fibrillation, hypertension. He is [...] the printed consent form. Anastasia Yeung MD Head Machine Feeder, PGY5 #[id number] documented in this encounter Plan of Treatment Upcoming Encounters Date Type Department Care Team (Braydon Contact Info) Description 02/26/2024 10:00 AM EST Hospital Encounter Non-Invasive [place] [address] Arrived documented as of this encounter Procedures Procedure Name Priority Date/Time Associated Diagnosis Comments TALA W LMTD SPECTRAL DOPPLER COLOR DOPPLER Routine 08/29/2023 12:19 PM EDT PAF (paroxysmal atrial fibrillation) Presence of Watchman left atrial appendage closure device TALA complete wo contrast ([id number]) 08/29/2023 11:32 AM EDT Chronic a-fib Presence of Watchman left atrial appendage closure device documented in this encounter Results * TALA W LMTD SPECTRAL DOPPLER COLOR DOPPLER (08/29/2023 12:19 PM EDT) Anatomical Region Laterality Modality Cardiac Other 08/29/2023 11:2 9 AM EDT Narrative 08/29/2023 1:43 PM EDT ? Transesophageal Echocardiogram Report Name: JATINDER MORRELL ?Study Date: 08/29/2023 11:29 AM ? Patient Location: OR^ORMN2^A : 1945 ? Account: [id number] Age: 78 yrs Gender: Male Ordering Physician: CLARICE BULL Referring Physician: DINESH MATTHEWS Reason For Study: WATCHMAN Exam Location: [facility]. Interpretation Summary Focused TALA performed to evaluate [...] JATINDER MORRELL Study Date: 1:29 AM Patient Location:OR^ORMN2^A : 1945 Account: [id number] Age: 78 yrs Gender: Male Ordering Physician: CLARICE BULL Referring Physician: DINESH MATTHEWS Reason For Study: WATCHMAN Exam Location: [facility]. Interpretation Summary Focused TALA performed to evaluate [...] appendage closure device documented in this encounter Active and Recently [...] MD) documented in this encounter Care Teams System Consultant Relationship Specialty Start Date End Date Andrew Siu DNP [address] [facility] [address] [place] [address] PCP - General Family Medicine 08/08/22 documented as of this encounter
--- OUTSIDE RECORDS SUMMARY | 2023-12-11 18:41 | XMS_ITS | Encounter Summary ---
Author Organization [facility] [place] [address] Care Team Providers Care Chalk Tester Name Role Phone Andrew Siu DNP Primary Care Provider [phone] Reason for Visit * Auth/Cert (Routine) Specialty Diagnoses / Procedures Referred By Contac t Referred To Contact Diagnoses Chronic a-fib Presence of Watchman left atrial appendage closure device s/p Watchman 45d f/u Procedures PRG TALA REAL TIME IMG 2D W PRB IMG ACQUIS I&R TRANSESOPHAGEAL ECHOCARDIOGRAM (WRVU 2.3) Terry Marks MD [facility] [place] [address] [facility] Referral ID Status Reason Start Date Expiration Date Visits Re quested Visits Authorized [id number] 1 1 Encounter Details Date Type Department Care Team (Late st Contact Info) Description 08/29/2023 11:30 AM EDT Anesthesia Event [place] [address] Jin Martin MD [facility] [place] [address] Yasmin Tyler CRNA [facility] [place] [address] Anesthesia Record Procedure Summary Procedure Name Responsible Anesthesiologist Anesthesia Start Time Anesthesia Stop Time TRANSESOPHAGEAL ECHOCARDIOGRAM (WRVU 2.3) Jin Martin MD 08/29/23 1130 08/29/23 1219 Events Date Time Event Comment 08/29/2023 1027 1130 AN Verify 1130 Start 1132 An Start Data 1143 Anesthesia Ready 1213 an stop data 1219 Recovery or ICU Handoff Talisha ent care was transferred to the destination unit staff after review of the patient's medical history, current anesthetic/surgical status and plan, according to the Provider Handoff Checklist. 1219 Stop Meds Name Total IV Lidocaine 40 mg Propofol 120 mg Propofol INF 502.2 mg lactated ringers infusion 600 mL * Agents Name O2 Air N2O O2 Auxiliary Flowmeter 1 * Blood No blood administrations on file. Lines, Drains, and Airways Type Details Placement Removal Incision 02/17/23; 1435; Left , upper; chest 02/17/23 1435 by Raquel Mancilla RN PIV 08/29/23; 1038; [id number]-[id number] catheter system; 20 gauge; median cubital vein (antecubital fossa), left; Anatomical Landmarks; distraction, tolerated well, appears comfortable; 08/29/23; 1251 08/29/23 1038 by Arely Chavez RN 08/29/23 1251 by Arely Chavez RN PIV 08/29/23; 1145; 08/18 04/12; 1251 08/29/23 1145 by Yasmin Tyler CRNA 08/29/23 1251 by Arely Chavez, RN documented in this encounter Social History Tobacco Use Types Packs/Day Years [...] on file documented as of this encounter OR Notes * Anesthesia Postprocedure Evaluation - Jin Martin MD - 08/29/2023 12:56 PM EDT Department of Anesthesiology Post-procedure Note Patient: Jimmie Mccauley Procedure Summary Date: 08/29/23 Room / Location: [facility] SUR[facility] 2 / [facility] MAIN OR Anesthesia Start: 1130 Anesthesia Stop: 1219 Procedure: TRANSESOPHAGEAL ECHOCARDIOGRAM (WRVU 2.3) Diagnosis: Chronic a-fib Presence of Watchman left atrial appendage closure device (s/p Watchman 45d f/u) Surgeons: Terry Marks MD Responsible Provider: Jin Martin MD Anesthesia Type: MAC ASA Status: 3 All Anesthesia Providers: Anesthesiologist: Jin Martin MD TABLET MACHINE OPERATOR: Yasmin Tyler CRNA Vitals Value Taken Time BP 146/82 08/29/23 1245 Temp 36 ??C (96.8 ??F) 08/29/23 1245 Pulse Resp 18 08/29/23 1245 SpO2 96 % 08/29/23 1245 Pain Level 0 08/29/23 1245 Vitals shown include unfiled device data. Patient Location: PACU/[facility] Level of Consciousness: Awake and Alert Pain Management: Satisfactory Analgesia PONV: None Cardiovascular Status: At Baseline Respiratory Status: At Baseline Postoperative Fluid Status: Intravascular EUvolemia Possible Anesthetic Complications: NONE apparent at time of evaluation Final Primary Anesthesia Type: MAC (The anesthetic type performed was the same as planned.) Comments: * Anesthesia Preprocedure Evaluation - Jin Martin MD - 08/29/2023 6:08 AM EDT Pre-Anesthesia Evaluation for: Jimmie Mccauley a 78 y.o. male. Procedure(s): TRANSESOPHAGEAL ECHOCARDIOGRAM (WRVU 2.3) Patient Active Problem List Diagnosis Date Noted ??? Biventricular implantable cardioverter-defibrillator in situ- [facility] 02/19/2013 ??? Non-ischemic cardiomyopathy 06/26/2012 ??? Heart failure chronic systolic dysfunction 06/26/2012 ??? Pulmonary embolism 08/01/2012 ??? LBBB (left bundle branch block) 06/26/2012 ??? Complete heart block 06/26/2012 ??? Pericarditis 08/01/2012 ??? Alcohol use 06/26/2012 ??? A-fib 07/13/2023 ??? Hypertension 02/15/2017 ??? ICD (implantable cardioverter-defibrillator) malfunction - [facility] 02/25/2016 ??? 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 09/12/2012 ??? HX SUDDEN CARDIAC ARREST 06/26/2012 No past medical history on file. Past Surgical History: Procedure Laterality Date ??? PRO COLONOSCOPY, DIAGNOSTIC 03/31/2011 COLONOSCOPY, DIAGNOSTIC performed by ISAEL CODY at [facility] ENDOSCOPY ??? PRO PERQ CLSR TCAT L ATR APNDGE W/ENDOCARDIAL IMPLNT N/A 07/13/2023 @PERQ TRANSCATH CLOSURE LEFT ATRIAL APPENDAGE W ENDOCARDIAL IMPLANT, INC RAD S&I (WRVU 14) performed by Darrel Matthews MD at [facility] CATH LABS ??? PRO REMOVAL AND RPLMT PACING CARDIO-DEFIB PULSE GENERATOR MULT LEAD N/A 02/17/2023 REMOVAL ICD GENERATOR W REPL ICD GEN; MULTI LEAD (WRVU 6.35) performed by Vincent Martinez [facility] at [facility] Social History Tobacco Use ??? Smoking status: Former Current packs/day: 0.00 Types: Cigarettes Quit date: 01/12/1996 Years since quittin.6 ??? Smokeless tobacco: Never ??? Tobacco comments: stopped 15 years Substance Use Topics ??? Alcohol use: Yes Alcohol/week: 1.0 standard drink of alcohol Types: 1 Shots of liquor per week Comment: 1 drink a day Social History Substance and Sexual Activity Drug Use Yes Comment: CBD tincture 2x per week Allergies Allergen Reactions ??? Lasix [Furosemide] Rash ??? Lisinopril Other (See Comments) COUGH Medications: MAR and/or home medications have been reviewed. Physical Exam: Preprocedure Vitals Current as of 08/29/23 0608 No BP, pulse, respiration, SpO2, or temperature recorded. Height: Weight: BMI: IBW: Airway Assessment: Mallampati: II TM distance: >3 FB Neck ROM: limited Cardiovascular Assessment: Rate: normal Pulmonary Assessment: unlabored breathing Dental Assessment: (+) edentulous Misc Assessment: IV access: Peripheral line Last Filed Perioperative Cognitive Screening None Anesthesia Plan: ASA 3 MAC, with a(n) intravenous induction Presents for TALA for follow up after Watchman device placement. PMH from recent cardiology visit: LBBB (left bundle branch block) S/p TECHNOLOGY COACH-D, 99% V Paced H/O Pericarditis Without recurrence Non-ischemic cardiomyopathy HFimpEF (now 55%), ACC/AHA stage C. NYHA FC II --metop 50 --continue losartan 100 H/O Paroxysmal Atrial Fibrillation s/p LAAC device 07/13/2023 --[id number] VASc Score 6 (Age, CHF, HTN, PE) --on asa (plavix caused bleeding) Biventricular implantable cardioverter-defibrillator in situ- [facility] Stable HTN Good control Amlodipine losartan Anesthetic Hx: Noted grade 4 view on direct laryngoscopy; easy intubation with CMAC. Plan MAC Region - Other Informed Consent: Anesthetic plan and risks discussed with patient. Plan discussed with TABLET MACHINE OPERATOR. Anesthesia Screening documented in this encounter Plan of Treatment Upcoming Encounters Date Type Department Care Team (Late st Contact Info) Description 02/26/2024 10:00 AM EST Hospital Encounter Non-[place] [address] Arrived documented as of this encounter Visit Diagnoses Not on filedocumented in this encounter Administered Medications Inactive Administered Medications - up to 3 most recent administrations Medication Order MAR Action Action Date Dose Rate Site lactated ringers infusion 1,000 mL, at 100 mL/hr, Intravenous, CONTINUOUS, Starting on Mon08/29/23 at 1045, Until Mon08/29/23 at 1253, Day of Surgery (Day of Procedure) New Bag 08/29/2023 11:30 AM EDT lidocaine (pf) (Xylocaine) (20 mg/mL) 2% injection syringe Intravenous, PRN, Starting on Mon08/29/23 at 1137, Until Mon08/29/23 at 1221, Anesthesia Intra-op, Routine Given 08/29/2023 11:37 AM EDT 40 mg propofoL (Diprivan) (10 mg/mL) infusion Intravenous, CONTINUOUS PRN, Starting on Mon08/29/23 at 1142, Until Mon08/29/23 at 1221, Anesthesia Intra-op, Routine Rate/Dose Change 08/29/2023 11:53 AM EDT 175 mcg/kg/min 113.4 mL/hr New Bag 08/29/2023 11:42 AM EDT 200 mcg/kg/min 129.6 mL /hr propofoL (Diprivan) 10 mg/mL bolus injection (Anesthesia) Intravenous, PRN, Starting on Mon08/29/23 at 1142, Until Mon08/29/23 at 1221, Anesthesia Intra-op Given 08/29/2023 12:09 PM EDT 20 mg Given 08/29/2023 11:46 AM EDT 50 mg Given 08/29/2023 11:42 AM EDT 50 mg documented in this encounter Care Teams Chalk Tester Relationship Specialty Start Date End Date Andrew Siu DNP [address] [place] [address] PCP - General Family Medicine 08/08/22 documented as of this encounter
--- OUTSIDE RECORDS SUMMARY | 2023-12-11 18:42 | XMS_ITS | Encounter Summary ---
[place] [address] Care Team Providers Care Silk Screen Etcher Name Role Phone Andrew Siu DNP Primary Care Provider [phone] Reason for Referral * Diagnostic Test (Routine) - Closed Specialty Diagnoses / Procedures Referred By Contac t Referred To Contact Cardiology Diagnoses PAF (paroxysmal atrial fibrillation) Presence of Watchman left atrial appendage closure device Procedures Transesophageal Echocardiogram (TALA) Dinesh Matthews MD [facility] [place] [address] [facility] [place] [address] Referral ID Status Reason Start Date Expiration Date V isits Requested Visits Authorized [id number] Closed Specialty Service Requested 08/01/2023 07/31/2024 1 1 Encounter Details Date Type Department Care Team (Late st Contact Info) Description 08/01/2023 Orders Only Cardiology at [address] [address] Dinesh Matthews MD [facility] [place] [address] PAF (paroxysmal atrial fibrillation); Presence of Watchman left atrial appendage closure device Social History Tobacco Use Types Packs/Day Years [...] AM EST Hospital Encounter Non-Invasive [place] [address] Arrived documented as of this encounter Results * TALA W LMTD SPECTRAL DOPPLER COLOR DOPPLER (08/29/2023 12:19 PM EDT) Anatomical Region Laterality Modality Cardiac Other 08/29/2023 11:2 9 AM EDT Narrative 08/29/2023 1:43 PM EDT ? Transesophageal Echocardiogram Report Name: JATINDER MORRELL ?Study Date: 08/29/2023 11:29 AM ? Patient Location: OR^ORMN2^A : 1945 ? Account: [id number] Age: 78 yrs Gender: Male Ordering Physician: CLARICE BULL Referring Physician: DINESH MATTHEWS Reason For Study: WATCHMAN Exam Location: [facility]. Interpretation Summary Focused TALA performed to [...] 1:29 AM Patient Location:OR^ORMN2^A : 1945 Account: [id number] Age: 78 yrs Gender: Male Ordering Physician: CLARICE BULL Referring Physician: DINESH MATTHEWS Reason For Study: WATCHMAN Exam Location: [facility]. Interpretation Summary Focused TALA performed to [...] appendage closure device documented in this encounter Care Teams Silk Screen Etcher Relationship Specialty Start Date End Date Andrew Siu DNP [address] [place] [address] [place] [address] PCP - General Family Medicine 08/08/22 documented as of this encounter
--- OUTSIDE RECORDS SUMMARY | 2023-12-11 18:42 | XMS_ITS | Encounter Summary ---
[place] [address] Care Team Providers Care Firm Administrator Name Role Phone Andrew Siu DNP Primary Care Provider [phone]- [phone] Encounter Details Date Type Department Care Team (Latest Contact Info) Description 06/14/2023 Travel Social History Tobacco Use Types Packs/Day Years [...] Others or Doing Things Outside Your Home? no 02/17/2023 Feels Threatened by Someone no 03/2022 Feels Unsafe at Home or Work/School no 02/17/2023 Physical Signs of Abuse Present no 02/17/2023 Sex and Gender Information Value Date Recorded Sex Assigned at Not on file Gender Identity Not on file Sexual Orientation Not on file documented as of this encounter Plan of Treatment Upcoming Encounters Date Type Department Care Team (Late st Contact Info) Description 02/26/2024 10:00 AM EST Hospital Encounter Non-[place] [address] Arrived documented as of this encounter Visit Diagnoses Not on filedocumented in this encounter Care Teams Firm Administrator Relationship Specialty Start Date End Date Andrew Siu DNP [address] [place] [address] PCP - General Family Medicine 08/08/22 documented as of this encounter
--- OUTSIDE RECORDS SUMMARY | 2023-12-11 18:42 | XMS_ITS | Encounter Summary ---
Author Organization [facility] [place] [address] Care Team Providers Care Field Operations Supervisor Name Role Phone Andrew Siu DNP Primary Care Provider [phone] Encounter Details Date Type Department Care Team (Latest Contact Info) Description 08/16/2023 11:00 AM EDT Office Visit Cardiology at [address] [address] Lauren Starks MD [facility] [place] [address] Non-ischemic cardiomyopathy Social History Tobacco Use Types Packs/Day Years Used Date Smoking Tobacco: Former Cigarettes Q uit: 01/12/1996 Smokeless Tobacco: Never Comments:stopped 15 years Alcohol Use Standard Drinks/Week Comments Yes 1 (1 standard drink = 0.6 oz pur e alcohol) 1 drink a day [facility] Inpatient Questions Answer Date Recorded Does Anyone Try to Keep You From Having Contact with Others or Doing Things Outside Your Home? no 07/13/2023 Feels Threatened by Someone no 06/19 Feels Unsafe at Home or Work/School no 07/13/2023 Physical Signs of Abuse Present no 07/13/2023 Sex and Gender Information Value Date Recorded Sex Assigned at Not on file Gender Identity Not on file Sexual Orientation Not on file documented as of this encounter Last Filed Vital Signs Vital Sign Reading Time Taken Comments Blood Pressure 122/77 08/16/2023 10:58 AM EDT Pulse 64 08/16/2023 10:58 AM EDT Temperature - - Respiratory Rate - - Oxygen Saturation 97% 08/16/2023 10: 58 AM EDT Inhaled Oxygen Concentration - - Weight 112.2 kg (247 lb 4.8 oz) 024 10:58 AM EDT Height 198.1 cm (6' 6) 08/16/2023 10:5 8 AM EDT Body Mass Index 28.58 08/16/2023 10:58 AM EDT documented in this encounter Patient Instructions * Patient Instructions* Lauren Starks MD - 08/16/2023 11:00 AM EDT Great to see you. If you need to reach me, you can call my nurse line at [phone] Lauren Starks MD Advanced Cardiac Disease and Pulmonary Hypertension documented in this encounter Progress Notes * Lauren Starks MD - 08/16/2023 11:00 AM EDT Images from the original note were not included. [facility] [place] [address] [address] CARDIOMYOPATHY/HEART FAILURE SERVICE OUTPATIENT CLINIC NOTE Jatinder Mancilla Parisa 08/16/2023 Primary Care Provider: Andrew Siu DNP Referring Provider: Andrew Siu HISTORY OF PRESENT ILLNESS: Jatinder Morrell is a 78 y.o. patient with history of pericarditis following PCM implant in 2012, complete heart block with CRTd upgrade in place, nonobstructive coronary artery disease, cardiomyopathy (recovered LV function) seen in routine follow up in the [facility] Heart Failure [facility]. Underwent ANI occlusion device 07/13/2023 and has done well since. Had some bleeding on placix and was switched to asa. Some CORNEJO which is occasional and seemingly unrelated to a pattern. No chest pains. No swelling in legs. Appetite is good. Has plans to work on his house on [employer] this summer. Patient Active Problem List Diagnosis Biventricular implantable cardioverter-defibrillator in situ- [facility] 02/19/2013 Cardiac Resynchronization Therapy ICD Upgrade (explant of pacemaker pulse generator), peripheral Subclavian Venography, Cinefluoroscopy, pacemaker pocket revision and defibrillation safety margin testing, under General anesthesia Indication: Cardiomopathy with congestive heart failure and ventricular dyssynchrony, ventricular pacing New Ventricular electrode: [employer] Model# 7122Q-58 cm Serial #[id number] Implanted 02/18/2013 Bipolar, steroid-tipped, active-fixation DF-4 lead Access: Axillary vein Location: Right ventricular apical septum (old) Atrial electrode: Medtronic, Model # 5568-52 cm Serial # [id number] Implanted 06/14/2012 Bipolar, steroid-tipped, active-fixation IS-1 lead Access: Not known Location Right atrium anterolateral Coronary sinus electrode: [facility] [employer] 1458Q/86 Serial number [id number] Implanted 02/18/2013 Quadripolar passive active fixation lead Access: Subclavian vein Location: Coronary sinus, posterolateral vein Pulse generator: [employer] [id number] Serial number [id number] Implanted 02/18/2013 CIRCULATION REPRESENTATIVE ICD Location: Subcutaneous Old ventricular lead : Medtronic 5075 Serial number [id number] (capped 02/18/2013) Old pulse generator: Medtronic [id number] Serial number [id number] (removed 02/18/2013) Detection and termination of ventricular tachyarrhythmias was performed with the ICD set to minimalsensitivity A T-Wave shock (4 S1 at 400 ms with a 310 ms delay and 1.2 Joule biphasic waveform) induced ventricular fibrillation that was successfully terminated with a 20 Joule shock (impedance 68 ohms). Generator change 03/25/16: New Pulse Generator [employer] [id number] Serial number [id number] Implanted 03/25/2016 CIRCULATION REPRESENTATIVE ICD Location: Subcutaneous Non-ischemic cardiomyopathy Dilated cardiomyopathy -- non-ischemic. Index presentation with [...] with left bundle branch block, PVCs, QRS loqoncvf=297 msec. Symptomatic CHB 06/13/12- s/p DDDR pacemaker 100% V paced rhythm SPEP/Free Light Chains- Results for JATINDER MORRELL ( ) as of 07/10/2016 19:35 Ref. Range 10/19/2015 14:06 10/19/2015 14:07 [place] Free Light Chains Latest Ref Range: 0.33 - 1.94 mg/dL 2.09 (H) Lambda Free Light Chains Latest Ref Range: 0.57 - 2.63 mg/dL 1.53 e. AHA/ACC stage C, NYHA functional class II. f. Intolerant to spironolactone. Currently on carvedilol and Cozaar with slightly elevated blood pressure relative to LV dysfunction. Heart failure chronic systolic dysfunction Heart failure - well compensated Chronic Systolic dysfunction Non ischemic DCM Heart Failure Management: Yes/No No?/Discontinued/Why Beta makeda Yes Carvedilol ROSY/ARB Yes Losartan Spironolactone no Previously [id number], d/c secondary to side effects (hives), no rechallenge Amlodipine Yes Initiated 05/30 [place] AFIB? no Anticoagulated AICD/Type CIRCULATION REPRESENTATIVE-D LBBB, EF dropped to 35%- 04/02/13 back up at ~ 50% post CIRCULATION REPRESENTATIVE--> EF=65% NSR with LBBB, QRS= 170 ms CHB with symptomatic bradycardia, s/p DDD-R pacer 06/13/12 - LVEF ~ 50-55%, ICD not indicated, but, will likely be V paced, and higher risk for pacemaker induced LV dysfunction - LVEF deteriorated post pacer implant, EF ~ 35% on medical therapy AHA/ACC stage C, NYHA FTCII Pulmonary embolism New clinical dyspnea, chest pain syndrome, diaphoresis 06/2012 Recent hospitalization for CHB, pacer and prolonged driving from [place] Ab[place] pulmonary angiogram 08/01/12 Lovenox bridge -->coumadin initiated 08/01/12 LBBB (left bundle branch block) LVN=344 ms New Symptomatic CHB 05/30-->declined pacer at initial presentation while traveling -S/p temp pacer-->Permanent DDDR pacer -LVEF~ 50-55%, ICD not indicated, but at risk for V paced rhythm dyssynchrony Complete heart block Symptomatic bradycardia with CHB and LBBB, HR in the 20-30s Initially seen at a local ER, pacemaker recommended, but declined While in ICU, [place], called [facility] in cath report, but likely symptomatic bradycardia and CHB CHB- s/p temporary pacer 06/13/2012 - cath: Angiogram, mild irregularities of LAD, LCXF dominant, 30-40% mid RCA - No LV gram done S/p DDD-R Pacemaker Medtronic Adapta Dual Chamber Model # [id number], Serial number [id number] -[place], [place] Pericarditis New chest discomfort ~ 2 weeks post DDD pacer implant Elevated C reactive protein; pericardial effusion->improved with NSAID and colchicine. Should be on colchicine until Nov 18, 2012 Elevated ProBNP, some clinical response with diuretics Stress Echo, LVEF=44%, no change, no definite ischemia, poor exercise tolerance, no pericardial effusion noted on stress Trivial pleural effusion on chest x-ray Elevated HCG=067 a-->3.8 AN ESR=53 on index presentation --> 25, 13 and 4 on medical therapy with colchicine, steroids not initiated Alcohol use History of Alcohol use A-fib Hypertension BP ~ 130-150 mmHg Rx: Carvedilol, Losartan ICD (implantable cardioverter-defibrillator) malfunction - [facility] 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? May be multifactorial, PE, and post pacer implant pericarditis Abnormal CT pulmonary angiogram Elevated hs CRP and ESR HX SUDDEN CARDIAC ARREST Probably bradycardic induced, presenting with symptomatic CHB, and requiring defibrillation 05/2012 SOCIAL HISTORY: Reviewed and updated as appropriate in the medical record. The patient reports thathe quit smoking about 27 years ago. His smoking use included cigarettes. He has never used smokeless tobacco. He reports current alcohol use of about 1.0 standard drink of alcohol per week. He reports current drug use. FAMILY HISTORY: Reviewed and updated as appropriate in the medical record. No family history on file. No significant CV disease. ALLERGIES: Reviewed and updated as appropriate in the medical record. Allergies Allergen Reactions Lasix [Furosemide] Rash Lisinopril Other (See Comments) COUGH MEDICATIONS: Outpatient Medications Marked as Taking for the 08/16/23 encounter (Office Visit) with Lauren Starks MD Medication Sig Dispense Refill clopidogreL (Plavix) 75 mg tablet Take 1 tablet by mouth daily. 90 tablet 3 aspirin EC 81 mg EC (DR) tablet Take 1 tablet by mouth daily. 30 tablet 3 metoprolol succinate XL (Toprol-XL) 50 mg ER 24 hr tablet Take 1 tablet by mouth daily. (Patient taking differently: Take 50 mg by mouth nightly.) 30 tablet 12 pravastatin (Pravachol) 20 mg tablet Take 20 mg by mouth nightly. magnesium oxide (Mag-Ox) 400 mg (241.3 mg magnesium) Tablet Take 400 mg by mouth daily. gabapentin (Neurontin) 300 mg capsule Take 300 mg by mouth nightly. Indications: neuropathic pain finasteride (Proscar) 5 mg tablet Take 5 mg by mouth nightly. docusate sodium (Colace) 100 mg capsule Take 100 mg by mouth nightly. losartan (COZAAR) 100 mg Tablet Take 1 tablet by mouth daily. (Patient taking differently: Take 100mg by mouth nightly.) 90 tablet 0 amLODIPine (Norvasc) 5 mg Tablet Take 1 tablet by mouth daily. (Patient taking differently: Take 5 mg by mouth nightly.) 90 tablet 3 multivitamin (THERAGRAN) Tablet Take 1 tablet by mouth daily. ugtahxl-gixpsvoxooypq-thzdvemd (EXCEDRIN MIGRAINE) 250-250-65 mg per tablet Take [...] mouth nightly as needed.) 30 tablet 0 REVIEW OF SYSTEMS: See HPI above for pertinent positives and negatives. All other ROS negative by system (including general, HEENT, pulmonary, gastrointestinal, genitourinary, musculoskeletal, endocrine, hematologic, extremity, skin, neurology, and psychiatric) with exceptions below. PHYSICAL EXAMINATION: Vital Signs: Wt Readings from Last 3 Encounters: 08/16/23 112.2 kg (247 lb 4.8 oz) 07/13/23 113.4 kg (250 lb) 06/14/23 114.9 kg (253 lb 6.4 oz) Temp Readings from Last 3 Encounters: 07/13/23 36.1 ??C (97 ??F) (Temporal) 02/17/23 37 ??C (98.6 ??F) 03/25/16 36.3 ??C (97.3 ??F) (Temporal) BP Readings from Last 3 Encounters: 08/16/23 122/77 07/13/23 (!) 158/108 06/14/23 133/84 Pulse Readings from Last 3 Encounters: 08/16/23 64 07/13/23 64 06/14/23 64 SpO2: [97 %] General -pleasant and in NAD. HEENT -unremarkable Lungs -clear to auscultation bilaterally without crackles or wheezes Cardiac -regular rate and rhythm. Normal S1/S2. No S3. No obvious murmurs rubs or gallops. JVP visualized and seen just above the clavicle. Abdomen -soft, non-tender, no significant organomegaly, masses Extremities -LE extremities are warm and without edema Neuro -grossly intact LAB STUDIES: Chemistry Component Value Date/Time NA 139 07/13/2023 0755 K 4.1 07/13/2023 0755 CL 103 07/13/2023 0755 CO2 27 07/13/2023 0755 BUN 17 07/13/2023 0755 CREATININE 0.82 07/13/2023 0755 Component Value Date/Time CALCIUM 9.2 07/13/2023 0755 ALKPHOS 59 02/08/2023 0954 AST 14 02/08/2023 0954 ALT 14 02/08/2023 0954 BILITOT 0.9 02/08/2023 0954 ProBNP Date Value Ref Range Status 02/08/2023 151 <=449 pg/mL Final 08/08/2022 165 <=449 pg/mL Final 01/24/2022 161 <=449 pg/mL Final CARDIAC STUDIES: Echo 07/2022 Interpretation Summary Left ventricular systolic function is normal. The left ventricular ejection fraction is 55% by Ramirez's biplane. Right ventricular systolic function is normal. No significant valvular disease noted on this study. The diameter at the level of the sinuses of Valsalva is 4.2 cm. 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 NYHA FC II --metop 50 --continue losartan 100 H/O Paroxysmal Atrial Fibrillation s/p LAAC device 07/13/2023 --[id number] VASc Score 6 (Age, CHF, HTN, PE) --on asa (plavix caused bleeding) Biventricular implantable cardioverter-defibrillator in situ- [facility] Stable HTN Good control Amlodipine losartan Lauren Starks MD documented in this encounter Plan of Treatment Upcoming Encounters Date Type Department Care Team (Late st Contact Info) Description 02/26/2024 10:00 AM EST Hospital Encounter Non-Invasive [place] [address] Arrived Scheduled Orders Name Type Priority Associated Diagnoses Orde r Schedule Basic Metabolic Panel (non-fasting) Lab Routine Non-ischemic cardiomyopathy Expected: 08/15/2023, Expires: 08/14/2024 documented as of this encounter Results * pro-Brain Natriuretic Peptide (08/16/2023 10:44 AM EDT) NT-proBNP 207 <=449 pg/mL [facility] Blood 08/16/2023 10:4 4 AM EDT 08/16/2023 10:50 AM EDT Narrative Resulting Agency Comment Spec In Lab Lauren Starks MD CHEMISTRY ORDERABL ES Performing Organization Address [facility]/ZIP Co de Phone Number [facility] [place] [address] * Magnesium (08/16/2023 10:44 AM EDT) Magnesium 0.88 0.69 - 1.07 mmol/L [facility] Blood 08/16/2023 10:4 4 AM EDT 08/16/2023 10:50 AM EDT Narrative Resulting Agency Comment Spec In Lab Lauren Starks MD CHEMISTRY ORDERABL ES Performing Organization Address City/[facility]/ZIP Co de Phone Number [facility] [place] [address] * Hepatic Function Panel (08/16/2023 10:44 AM EDT) Protein, Total 6.4 6.1 - 8.0 g/dL [facility] Albumin 4.1 3.2 - 5.2 g/dL [facility] Aspartate Aminotransferase 14 0 - 39 unit/L [facility] Alanine Aminotransferase 13 0 - 55 unit/L [facility] Alkaline Phosphatase 69 40 - 130 unit/L [facility] Bilirubin, Total 1.1 0.2 - 1.3 mg/dL [facility] Bilirubin, Direct 0.2 0.0 - 0.3 mg/dL [facility] Blood 08/16/2023 10:4 4 AM EDT 08/16/2023 10:50 AM EDT Narrative Resulting Agency Comment Spec In Lab Lauren Starks MD CHEMISTRY ORDERABL ES Performing Organization Address City/State/[facility] Co de Phone Number [facility] [place] [address] documented in this encounter Visit Diagnoses Diagnosis Non-ischemic cardiomyopathy Other primary cardiomyopathies documented in this encounter Care Teams Field Operations Supervisor Relationship Specialty Start Date End Date Andrew Siu DNP [address] [place] [address] PCP - General Family Medicine 08/08/22 documented as of this encounter
--- OUTSIDE RECORDS SUMMARY | 2023-12-11 18:42 | XMS_ITS | Encounter Summary ---
Author Organization [facility] [place] [address] Care Team Providers Care Cementer Hand Name Role Phone Andrew Siu DNP Primary Care Provider +1- [phone] Encounter Details Date Type Department Care Team (Late st Contact Info) Description 07/18/2023 Telephone Cardiology at [address] [phone] Darrel Matthews MD [facility] [place] [address] Social History Tobacco Use Types Packs/Day Years [...] on file documented as of this encounter Miscellaneous Notes * Telephone Encounter - Darrel Matthews MD - 07/18/2023 6:08 PM EDT 77yo Male with Hx of PAF who underwent LAAO-WM on 07/12. Procedure was successful without apparent complication. Patient noted red blood tinged stool day 1 post procedure and was instructed to d/c clopidogrel andstart ASA 81 mg (see Dr. Christy's phone note). Dr. Christy attempted to call patient and left message on 07/16 in routine follow-up. Patient called Service on 07/17 I returned patient call.. there was no answer and left a message. Brewster MD [facility] construction flagger Pager [phone] documented in this encounter Plan of Treatment Upcoming Encounters Date Type Department Care Team (Late st Contact Info) Description 02/26/2024 10:00 AM [facility] Hospital Encounter Non-[place] [address] Arrived documented as of this encounter Visit Diagnoses Not on filedocumented in this encounter Care Teams Cementer Hand Relationship Specialty Start Date End Date Andrew Siu DNP [address] [place] [address] [place] [address] PCP - General Family Medicine 08/08/22 documented as of this encounter
--- OUTSIDE RECORDS SUMMARY | 2023-12-11 18:42 | XMS_ITS | Encounter Summary ---
[place] [address] Care Team Providers Care Work Order Clerk Name Role Phone Andrew Siu DNP Primary Care Provider [phone] Encounter Details Date Type Department Care Team (Latest Contact Info) Description 08/16/2023 10:00 AM EDT Laboratory Appointment Lab [address] [place] [address] Atrial fibrillation, unspecified type; Non-ischemic cardiomyopathy Social History Tobacco Use Types [...] AM EST Hospital Encounter Non-Invasive [place] [address] Arrived documented as of this encounter Procedures Procedure Name Priority Date/Time Associated Diagnosis Comments HEMOGRAM Routine 08/16/2023 10:44 AM EDT Atrial fibrillation, unspecified type DIFFERENTIAL, AUTOMATED Routine 08/16/2023 10:44 AM EDT Atrial fibrillation, unspecified type CBC (WITH DIFF) Routine 08/16/2023 10:44 AM EDT Atrial fibrillation, unspecified type PRO-BRAIN NATRIURETIC PEPTIDE Routine 08/16/2023 10:44 AM EDT Non-ischemic cardiomyopathy MAGNESIUM Routine 08/16/2023 10:44 AM EDT Non-ischemic cardiomyopathy HEPATIC FUNCTION PANEL Routine 08/16/2023 10:44 AM EDT Non-ischemic cardiomyopathy BASIC METABOLIC PANEL Routine 08/16/2023 10:44 AM EDT Atrial fibrillation, unspecified type documented in this encounter Results * (ABNORMAL) Differential, Automated (08/16/2023 10:44 AM EDT) Neutrophil % 65.2 % [facility] Neutrophil Absolute 6.45(H) 1.70 - 6.10 x10(3)/mc L [facility] Lymph % 23.4 % [facility] Lymphocytes Abs 2.3 0.9 - 3.2 x10(3)/mc L [facility] Monocyte % 7.7 % [facility] Monocyte Abs 0.8 0.3 - 0.9 x10(3)/mc L [facility] Eos % 3.0 % [facility] Eosinophils Abs 0.3 0.0 - 0.4 x10(3)/mc L [facility] Basophil % 0.5 % [facility] Baso Absolute 0.0 0.0 - 0.1 x10(3)/mc L [facility] Immature Gran % 0.20 % [facility] Comment: Immature granulocytes(IG's)percentage and absolute count will include metamyelocytes, myelocytes, and promyelocytes. Blood smears from CBCs yielding IG's will be scanned manually for concordance. If this scan disagrees with the automated IG or if promyelocytes are noted, a manual differential will be performed. Immature Gran Absolute 0.02 0.00 - 0.04 x10(3)/mc L [facility] Blood 08/16/2023 10:4 4 AM EDT 08/16/2023 10:50 AM EDT Narrative Resulting Agency Comment Spec In Lab Clarice Bull APRN HEMATOLOGY ORDERABLE S [facility] [place] [address] * (ABNORMAL) Hemogram (08/16/2023 10:44 AM EDT) White Blood Cell 9.9(H) 4.0 - 9.5 x10(3)/mc L [facility] Red Blood Cell 5.47 4.58 - 5.54 x10(6)/mc L [facility] Hemoglobin 16.0 13.7 - 16.5 g/dL [facility] Hematocrit 48.0 40.5 - 48.5 % [facility] Mean Cell Volume 87.8 82.9 - 93.1 fL [facility] Mean Cell Hemoglobin 29.3 27.5 - 32.1 pg [facility] Mean Cell Hemoglobin Concentration 33.3 32.0 - 35.7 g/dL [facility] Platelet 198 145 - 357 x10(3)/mc L [facility] RDW Standard Deviation 41.3 36.0 - 45.0 fL [facility] RDW coefficient of variation 12.9 11.4 - 13.8 % [facility] Mean Platelet Volume 10.1 7.6 - 12.9 fL [facility] NRBC% auto 0.0 % [facility] NRBC Absolute 0.000 0.000 - 0.000 x10(3)/mc L [facility] Blood 08/16/2023 10:4 4 AM EDT 08/16/2023 10:50 AM EDT Narrative Resulting Agency Comment Spec In Lab Clarice Encarnacion Jorgito SONIA HEMATOLOGY ORDERABLE S Performing Organization Address [facility] Co de Phone Number [facility] [place] [address] * Hepatic Function Panel (08/16/2023 10:44 AM EDT) Protein, Total 6.4 6.1 - 8.0 g/dL [facility] Albumin 4.1 3.2 - 5.2 g/dL [facility] Aspartate Aminotransferase 14 0 - 39 unit/L [facility] Alanine Aminotransferase 13 0 - 55 unit/L [facility] Alkaline Phosphatase 69 40 - 130 unit/L [facility] Bilirubin, Total 1.1 0.2 - 1.3 mg/dL [facility] Bilirubin, Direct 0.2 0.0 - 0.3 mg/dL [facility] Blood 08/16/2023 10:4 4 AM EDT 08/16/2023 10:50 AM EDT Narrative Resulting Agency Comment Spec In Lab Lauren Starks MD CHEMISTRY ORDERABL ES Performing Organization Address [facility] Co de Phone Number [facility] [place] [address] * Magnesium (08/16/2023 10:44 AM EDT) Magnesium 0.88 0.69 - 1.07 mmol/L [facility] Blood 08/16/2023 10:4 4 AM EDT 08/16/2023 10:50 AM EDT Narrative Resulting Agency Comment Spec In Lab Lauren Starks MD CHEMISTRY ORDERABL ES Performing Organization Address City/[facility]/ZIP Co de Phone Number [facility] [place] [address] * pro-Brain Natriuretic Peptide (08/16/2023 10:44 AM EDT) NT-proBNP 207 <=449 pg/mL [facility] Blood 08/16/2023 10:4 4 AM EDT 08/16/2023 10:50 AM EDT Narrative Resulting Agency Comment Spec In Lab Lauren Starks MD CHEMISTRY ORDERABL ES Performing Organization Address [facility] Co de Phone Number [facility] [place] [address] * Basic Metabolic Panel (non-fasting) (08/16/2023 10:44 AM EDT) Glucose 84 65 - 199 mg/dL [facility] Comment:Diabetes: >=200 mg/d L plus symptoms Blood Urea Nitrogen 20 10 - 20 mg/dL [facility] Creatinine 0.94 0.80 - 1.50 mg/dL [facility] Sodium 140 135 - 145 mmol/L [facility] Potassium 4.8 3.5 - 5.0 mmol/L [facility] Comment: Please note: ??Patients with WBC >100,000 may have falsely elevated Potassium levels. ??For accurate Potassium quantification in these patients send serum separator tube (gold top) for subsequent determinations. ??Contact the Clinical Chemistry Laboratory if there are any questions. Chloride 105 98 - 107 mmol/L [facility] Carbon Dioxide 28 22 - 31 mmol/L [facility] Anion Gap 7 5 - 15 mmol/L [facility] Calcium 9.6 8.5 - 10.5 mg/dL [facility] Est Glomerular Filtration Rate 83 >=60 mL/min/1. 73 m?? [facility] Comment: This patient's estimated GFR was calculated using the 2020 CKD-EPI equation. The estimated GFR can vary from the measured GFR by up to 30% in the absence of rapidly changing kidney function. Assessment of the estimated GFR is not appropriate when creatinine concentrations are rapidly changing. For clinical situations in which a more precise estimate of GFR is necessary, consider alternative methods of GFR estimation such as a 24-hour urine creatinine clearance. Assignment of CKD stage 1-5 for patients with an eGFR near the transition point between stages may be based on clinical assessment of muscle mass and symptoms in addition to eGFR. Blood 08/16/2023 10:4 4 AM EDT 08/16/2023 10:50 AM EDT Narrative Resulting Agency Comment Spec In Lab Clarice Bull APRN CHEMISTRY ORDERABLES [facility] [place] [address] documented in this encounter Visit Diagnoses Diagnosis Atrial fibrillation, unspecified type Non-ischemic cardiomyopathy Other primary cardiomyopathies documented in this encounter Care Teams Work Order Clerk Relationship Specialty Start Date End Date Andrew Siu DNP [address] [place] [address] PCP - General Family Medicine 08/08/22 documented as of this encounter
--- OUTSIDE RECORDS SUMMARY | 2023-12-11 18:42 | XMS_ITS | Encounter Summary ---
Author Organization [facility] [place] [address] Care Team Providers Care Photo Machine Operator Name Role Phone Andrew Siu DNP Primary Care Provider [phone] Reason for Visit * Auth/Cert (Routine) Specialty Diagnoses / Procedures Referred By Contac t Referred To Contact Diagnoses Atrial fibrillation, unspecified type A Fib Watchman Procedures PRO PERQ CLSR TCAT L ATR APNDGE W/ENDOCARDIAL IMPLNT CARDIAC CATHETERIZATION @PERQ TRANSCATH CLOSURE LEFT ATRIAL APPENDAGE W ENDOCARDIAL IMPLANT, INC RAD S&I (WRVU 14) TRANSESOPHAGEAL ECHO DURING CATH/EP PROCEDURE Darrel Matthews MD [facility] [place] [place] [address] [facility] Referral ID Status Reason Start Date Expiration Date Visits Re quested Visits Authorized [id number] 1 1 Encounter Details Date Type Department Care Team (Latest Contact Info) Description 07/13/2023 5:55 AM EDT - 07/13/2023 2:35 PM EDT Hospital Encounter [place] [id number] Darrel Matthews MD [facility] [place] [address] Atrial fibrillation, unspecified type; Presence of Watchman left atrial appendage closure [...] Sign Reading Time Taken Comments Blood Pressure 158/108 07/13/2023 1:00 PM EDT Pulse 64 07/13/2023 1:15 PM EDT Temperature 36.1 ??C (97 ??F) 07/13/2023 6:15 AM EDT Respiratory Rate 22 07/13/2023 1:15 PM EDT Oxygen Saturation 96% 07/13/2023 1:15 PM EDT Inhaled Oxygen Concentration - - Weight 113.4 kg (250 lb) 07/13/2023 6:15 AM EDT Height 198.1 cm (6' 5.99) 07/13/2023 6:15 AM ED T Body Mass Index 28.9 07/13/2023 6:15 AM EDT documented in this encounter Discharge Summaries * Faith Christy MD - 07/13/2023 10:21 AM EDT Discharge Summary Patient Name: Jatinder Morrell Race: White Admit date: 07/13/2023 Discharge date and time: 07/13/2023 Attending Physician: Vernon Matthews MD Follow-up Recommendations for Providers: - anti-coagulant plan: None - anti-PLT plan: - Aspirin 81 mg once daily - Clopidogrel (Plavix) 75 mg daily for 6 months port procedure - Recommend follow up with PCP in 2-3 weeks - 45 day TALA/CT scan for LAAC assessment - 45 day follow up with SHT - continue other medications as prescribed Discharge Diagnoses (Hospital Problems) and Secondary Diagnoses (Chronic Problems): Atrial Fibrillation, s/p Left Atrial Appendage Closure 31 mm WATCHMAN FLX pro Operations/Major Procedures: GA TALA US guided femoral access LAAO/LAAC History of Presentation: This a 78 y.o. man who is admitted to the Interventional Cardiology Team s/p LAAC device done via percutaneous intervention. PMH of atrial fibrillation with a elevated stroke risk necessitating non-pharmacological stroke risk reduction strategy via watchman. Patient is now s/p watchman device implantation. Hospital Course: The patient was admitted following cardiac catheterization for monitoring and observation. The patient did well without significant chest pain or arrhythmias on telemetry. The right femoral vein access site was evaluated and the femoral pulse was palpable with no evidence of vascular compromise to the right groin. Limited bedside surface echo and a repeat ECG were reviewed with no evidence of active ischemia or pericardial effusion. VS and renal function remained stable. The patient was restarted on anti-coagulation following effective hemostasis. The patient ambulated with nursing without chest discomfort or exertional dyspnea. The patient met criteria for discharge, and was released home in stable condition. Functional and Cognitive Status: Independent in ALDs and IADLs, A&O x 3, at baseline Important Studies and Lab Data: Lab Results Component Value Date WBC 9.2 02/08/2023 HGB 15.7 07/13/2023 HCT 47.5 07/13/2023 MCV 87.7 02/08/2023 PLATELET 196 02/08/2023 TTE today post watchman: Limited study following Watchman implantation. LV function is probably normal. Interatrial septum is not well seen. There is no pericardial effusion. Pending Studies and Lab Data: None Discharge Conditions/Prognosis: Good Discharge to: Home Updated Allergies/ADRs: Allergies Allergen Reactions Lasix [Furosemide] Rash Lisinopril Other (See Comments) COUGH Immunizations Given this Hospitalization: None given this hospitalization Discharge Medications: Your Medications UNREVIEWED medications - Discuss With Your Provider Dose Details amLODIPine 5 mg tablet Commonly known as: Norvasc Take 1 tablet by mouth daily. 5 mg Quantity: 90 tablet Refills: 3 ciwxzrg-yxcirjdyvfozr-qnaujfes 250-250-65 mg Tablet Commonly known as: EXCEDRIN MIGRAINE Take 1 tablet by mouth every 6 hours as needed. 1 tablet Refills: 0 docusate sodium 100 mg capsule Commonly known as: Colace Take 100 mg by mouth nightly. 100 mg Refills: 0 finasteride 5 mg tablet Commonly known as: Proscar Take 5 mg by mouth nightly. 5 mg Refills: 0 gabapentin 300 mg capsule Commonly known as: Neurontin Take 300 mg by mouth nightly. Indications: neuropathic pain 300 mg Refills: 0 HYDROcodone-acetaminophen 5-500 mg Tablet Commonly known as: VICODIN Take 1 tablet by mouth every 6 hours as needed. 1 tablet Refills: 0 ibuprofen 200 mg tablet Commonly known as: Advil Take 400 mg by mouth every 6 hours as needed. 400 mg Refills: 0 losartan 100 mg tablet Commonly known as: Cozaar Take 1 tablet by mouth daily. 100 mg Quantity: 90 tablet Refills: 0 magnesium oxide 400 mg (241.3 mg magnesium) Tablet Commonly known as: Mag-Ox Take 400 mg by mouth daily. 400 mg Refills: 0 metoprolol succinate XL 50 mg ER 24 hr tablet Commonly known as: Toprol-XL Take 1 tablet by mouth daily. 50 mg Quantity: 30 tablet Refills: 12 multivitamin Tablet Commonly known as: THERAGRAN Take 1 tablet by mouth daily. 1 tablet Refills: 0 pravastatin 20 mg tablet Commonly known as: Pravachol Take 20 mg by mouth nightly. 20 mg Refills: 0 sildenafiL 100 mg tablet Commonly known as: Viagra Take 1 tablet by mouth once as needed. 100 mg Quantity: 10 tablet Refills: 0 zolpidem 10 mg tablet Commonly known as: Ambien Take 1 tablet by mouth nightly. 10 mg Quantity: 30 tablet Refills: 0 Smoking Status at Discharge: Counseling given: Not Answered Tobacco comments: stopped 15 years Procedure Specific Instructions Given to Patient at Discharge: Cardiac Cath Provider Discharge Instructions Procedure: Left atrial appendage occlusion with 31 Watchman Flx pro Device Call your doctor if: Chest pain, dyspnea, pain or swelling in legs occurs. If you have non-emergentquestions between now and the time of your follow up appointments: During 8am-5pm Monday through Monday call [phone] and ask to speak to the cardiology clinic triage nurse. All other times call [phone] and ask to speak to the manager room refrigeration engineering teacher. Return to work: One week Driving: No driving for 24 hours after catherization Diet: Regular diet, heart healthy Follow up Appointments: PCP within 2-3 weeks. Then, please follow up with SHT in [address] scan/TALA. At this visit in 45 days we will discuss the next steps regarding anti-coagulation and anti-platelet medication. Home oxygen therapy: Not applicable Arrangements for VNA / home care: Not applicable General Instructions Listed Below (repeat from above) Following the procedure. there is some restriction of activity for 7 days following removal of the tube in the leg (which was in the femoral vein): a) encourage ambulation, b) no heavy lifting- nothing more than a gallon of milk, c) no soaking in tubs, d) no driving for 3 days, 3) ok to return to work Monday if no heavy lifting. Regarding the device, the only thing to keep in mind is to share with health care team that you have a watchman when undergoing an MRI. This imaging test can still be done, but they will need to be aware. You will not need to alert airport officials when traveling. It is often hard to see on chest xray and transthoracic echocardiogram; this is normal. At 45 days, we will repeat the CT or TALA to look at the device and examine for rare large leaks around the device, or clot on the device; if neither are present, we continue plavix until 6 months after implant. No further imaging is needed at 6 months, but plavix will stop at that time. Aspirin 81 mg daily at that time will be at the discretion of the referring physician, and is recommended in general for stroke prevention. Follow up with your PCP 2-3 weeks post procedure and general insole buffer in the 1-3 months post procedure. For the first 6 months of the device, try to avoid unnecessary procedures. For only dental procedures in first 6 months if they must be done: take a prescribed antibiotic before dental procedures (typically amoxicillin 2 g by mouth or clindamycin 600 mg by mouth one time one hour before procedure).Your PCP or our cardiac nurse ([phone]) can prepare a prescription is needed. If there are questions, please contact [facility] at [phone]. If there are emergency questions related to the device, call the manager room refrigeration engineering teacher at [phone]. Call your doctor if: Chest pain, dyspnea, pain or swelling in legs occurs. Shower/Bath: May shower; no tub bath for five days after catheterization. Wound Care: Wash with soap and water daily. Contact MD if redness, swelling, increased pain or drainage. Faith Christy MD, M.Sc. Structural Heart Disease Fellow Pager :[phone] documented in this encounter Medications at Time [...] mouth nightly. 07/10/2022 gabapentin (Neurontin) 300 mg capsuleIndications:ne uropathic pain Take 300 mg by mouth nightly. Indications: neuropathic pain finasteride (Proscar) 5 mg tablet Take 5 mg by mouth nightly. losartan (COZAAR) 100 mg TabletIndications:Chr onic systolic heart failure Take 1 tablet by mouth daily. 90 tablet 01/31/2021 amLODIPine (Norvasc) 5 mg Tablet Take 1 tablet by mouth daily. 90 tablet 3 04/30/2020 multivitamin (THERAGRAN) Tablet Take 1 tablet by mouth daily. aspirin-acetaminophen -caffeine (EXCEDRIN MIGRAINE) 250-250-65 mg per tablet Take 1 tablet by mouth every 6 hours as needed. ibuprofen (ADVIL;MOTRIN) 200 mg tablet Take 400 mg by mouth every 6 hours as needed. hydroCODone-acetamino phen (VICODIN) 5-500 mg per tablet Take 1 tablet by mouth every 6 hours as needed. sildenafil (VIAGRA) 100 mg tablet Take 1 tablet by mouth once as needed. 10 tablet 0 01/11/2011 zolpidem (AMBIEN) 10 mg tabletIndications:Ins omnia Take 1 tablet by mouth nightly. 30 tablet 0 01/11/2011 clopidogreL (Plavix) 75 mg tablet Take 1 tablet by mouth daily. 90 tablet 3 07/14/2023 08/28/2023 clopidogreL (Plavix) 75 mg tablet Take 1 tablet by mouth daily. 90 tablet 3 07/14/2023 08/28/2023 magnesium oxide (Mag-Ox) 400 mg (241.3 mg magnesium) Tablet Take 400 mg by mouth daily. 08/28/2023 docusate sodium (Colace) 100 mg capsule Take 100 mg by mouth nightly. 08/28/2023 documented as of this encounter H&P Notes * Faith Christy MD - 07/13/2023 10:[address] [facility] Interventional Cardiology Structural Heart Program Post Procedure H&P PCP: Andrew Siu DNP Date of Admission: 07/13/2023 Admission Diagnosis: Atrial Fibrillation: s/p LAAC/LAAO WATCHMAN 31 mm FLX implant Problem List: Patient Active Problem List Diagnosis ','A-fib Biventricular implantable cardioverter-defibrillator in situ- [facility] Overview Note: 02/19/2013 Cardiac Resynchronization Therapy ICD Upgrade (explant of pacemaker pulse generator), peripheral Subclavian Venography, Cinefluoroscopy, pacemaker pocket revision and defibrillation safety margin testing, under General anesthesia Indication: Cardiomopathy with congestive heart failure and ventricular dyssynchrony, ventricular pacing New Ventricular electrode: [employer] Model# 7122Q-58 cm Serial #[id number] Implanted 02/18/2013 Bipolar, steroid-tipped, active-fixation DF-4 lead Access: Axillary vein Location: Right ventricular apical septum (old) Atrial electrode: Medtronic, Model # 5568-52 cm Serial # [id number] Implanted 06/14/2012 Bipolar, steroid-tipped, active-fixation IS-1 lead Access: Not known Location Right atrium anterolateral Coronary sinus electrode: [employer] 1458Q/86 Serial number [id number] Implanted 02/18/2013 Quadripolar passive active fixation lead Access: Subclavian vein Location: Coronary sinus, posterolateral vein Pulse generator: [employer] [id number] Serial number [id number] Implanted 02/18/2013 PLATE MILL MILL HAND ICD Location: Subcutaneous Old ventricular lead : Medtronic 5075 Serial number [id number] (capped 02/18/2013) Old pulse generator: Medtronic [id number] Serial number [id number] (removed 02/18/2013) Detection and termination of ventricular tachyarrhythmias was performed with the ICD set to minimalsensitivity A T-Wave shock (4 S1 at 400 ms with a 310 ms delay and 1.2 Joule biphasic waveform) induced ventricular fibrillation that was successfully terminated with a 20 Joule shock (impedance 68 ohms). Generator change 03/25/16: New Pulse Generator [employer] [id number] Serial number [id number] Implanted 03/25/2016 PLATE MILL MILL HAND ICD Location: Subcutaneous Non-ischemic cardiomyopathy Overview Note: Dilated cardiomyopathy -- non-ischemic. Index presentation with [...] with left bundle branch block, PVCs, QRS mwgknget=378 msec. Symptomatic CHB 06/13/12- s/p DDDR pacemaker 100% V paced rhythm SPEP/Free Light Chains- Results for JATINDER MORRELL ( ) as of 07/10/2016 19:35 Ref. Range 10/19/2015 14:06 10/19/2015 14:07 [place] Free Light Chains Latest Ref Range: 0.33 - 1.94 mg/dL 2.09 (H) Lambda Free Light Chains Latest Ref Range: 0.57 - 2.63 mg/dL 1.53 e. AHA/ACC stage C, NYHA functional class II. f. Intolerant to spironolactone. Currently on carvedilol and Cozaar with slightly elevated blood pressure relative to LV dysfunction. Heart failure chronic systolic dysfunction Overview Note: Heart failure - well compensated Chronic Systolic dysfunction Non ischemic DCM Heart Failure Management: Yes/No No?/Discontinued/Why Beta amanda Yes Carvedilol ROSY/ARB Yes Losartan Spironolactone no Previously [id number], d/c secondary to side effects (hives), no rechallenge Amlodipine Yes Initiated 05/30 LA AFIB? no Anticoagulated AICD/Type PLATE MILL MILL HAND-D LBBB, EF dropped to 35%- 04/02/13 back up at ~ 50% post PLATE MILL MILL HAND--> EF=65% NSR with LBBB, QRS= 170 ms CHB with symptomatic bradycardia, s/p DDD-R pacer 06/13/12 - LVEF ~ 50-55%, ICD not indicated, but, will likely be V paced, and higher risk for pacemaker induced LV dysfunction - LVEF deteriorated post pacer implant, EF ~ 35% on medical therapy AHA/ACC stage C, NYHA FTCII Pulmonary embolism Overview Note: New clinical dyspnea, chest pain syndrome, diaphoresis 06/2012 Recent hospitalization for CHB, pacer and prolonged driving from [place] to [place] Abnormal CT pulmonary angiogram 08/01/12 Lovenox bridge -->coumadin initiated 08/01/12 LBBB (left bundle branch block) Overview Note: ABA=367 ms New Symptomatic CHB 05/30-->declined pacer at initial presentation while traveling -S/p temp pacer-->Permanent DDDR pacer -LVEF~ 50-55%, ICD not indicated, but at risk for V paced rhythm dyssynchrony Complete heart block Overview Note: Symptomatic bradycardia with CHB and LBBB, HR in the 20-30s Initially seen at a local ER, pacemaker recommended, but declined While in ICU, [place], called [facility] in cath report, but likely symptomatic bradycardia and CHB CHB- s/p temporary pacer 06/13/2012 - cath: Angiogram, mild irregularities of LAD, LCXF dominant, 30-40% mid RCA - No LV gram done S/p DDD-R Pacemaker Medtronic Adapta Dual Chamber Model # [id number], Serial number [id number] -[place], [place] Pericarditis Overview Note: New chest discomfort ~ 2 weeks post DDD pacer implant Elevated C reactive protein; pericardial effusion->improved with NSAID and colchicine. Should be on colchicine until Nov 18, 2012 Elevated ProBNP, some clinical response with diuretics Stress Echo, LVEF=44%, no change, no definite ischemia, poor exercise tolerance, no pericardial effusion noted on stress Trivial pleural effusion on chest x-ray Elevated YQB=990 a-->3.8 AN ESR=53 on index presentation --> 25, 13 and 4 on medical therapy with colchicine, steroids not initiated Alcohol use Overview Note: History of Alcohol use Hypertension Overview Note: BP ~ 130-150 mmHg Rx: Carvedilol, Losartan ICD (implantable cardioverter-defibrillator) malfunction - [facility] 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? Overview Note: May be multifactorial, PE, and post pacer implant pericarditis Abnormal CT pulmonary angiogram Elevated hs CRP and ESR HX SUDDEN CARDIAC ARREST Overview Note: Probably bradycardic induced, presenting with symptomatic CHB, and requiring defibrillation 05/2012 HPI: This 78 y.o. male is admitted following successful implantation of Watchman device for left atrial appendage occlusion in the setting of atrial fibrillation, elevated stroke risk, and inability to maintain therapy on long- term anticoagulation. I have reviewed the available records, interviewed and examined the patient. This patient is admitted post procedure for IV hydration, pain management, access site management in the setting of anticoagulation, telemetry monitoring, evaluation of their medical condition, and cardiac rehabilitation. PROCEDURE Access: RFV Implant: WATCHMAN FLX mm ROS/PMHx/Fam Hx/Soc Hx: Reviewed, see outpatient note. Physical Exam: BP 132/70 Pulse 64 Temp 36.1 ??C (97 ??F) (Temporal) Resp 11 Ht 198.1 cm (6' 5.99) Wt 113.4 kg (250 lb) SpO2 100% Comment: FM BMI 28.90 kg/m?? Gen: Well-appearing, NAD HEENT: Mentation: A&O x 4 Cranial Nerves: 2-12 intact Sensory: Intact to light touch throughout Motor: No gross motor deficis CV: RRR, no m/g/r, no elevated jugular venous distension Lungs: CTAB, no increased WOB, equal breath sounds bilaterally Abd: Soft, NTND, +NABS Ext: Wwp, no c/c/e Vasc: 2+ radial and femoral pulses, access site c/d/i Labs: Lab Results Component Value Date WBC 9.2 02/08/2023 HGB 15.7 07/13/2023 HCT 47.5 07/13/2023 MCV 87.7 02/08/2023 PLATELET 196 02/08/2023 Lab Results Component Value Date CREATININE 0.82 07/13/2023 BUN 17 07/13/2023 NA 139 07/13/2023 K 4.1 07/13/2023 CL 103 07/13/2023 CO2 27 07/13/2023 Lab Results Component Value Date CK 58 04/02/2013 TROPONINT <0.03 04/02/2013 Assessment/ Plan: #A fib, s/p LAAC/LAAO Watchman 31 mm FLX implant - Antithrombotic plan: S/P 300 mg Plavix post procedure S/p 324 mg Aspirin loaded pre-procedure Start Aspirin 8 mg daily Start Plavix 75 mg daily for 6 months post procedure - Admit for monitoring - Telemetry, serial ECGs if chest pain on ECG or concern on TTE - IVF - Regular diet - Ensure early ambulation once bedrest expires - Monitor access site, RFV perclose successful - TTE later today - Anticipate discharge later tiday if stable Faith Christy MD Interventional Cardiology 07/13/23 10:[address] [facility] Pager: [phone] * Faith Christy MD - 07/13/2023 6:53 AM EDT Patient Name: Jatinder Morrell Patient Age: 78 y.o. Birthdate: 1945 Admit date: 07/13/2023 Attending Physician: Darrel Alicea MD Jatinder Morrell is a 78 y.o. male referred for Left Atrial Appendage Occlusion procedure History: 78 year old male with pAF and history of hematuria after starting apixaban (not currently on OAC or aspirin), nICM with recovered LVEF, HAVB with pacemaker 2012 and upgraded to PLATE MILL MILL HAND-D, h/o provoked PE ECHO: TTE 07/2022 LVEF 55%, RV function normal, no valve disease Labs: 01/2023 H/H 16.8/49.9, Cr 0.91 ECG: AV dual paced Cath: 2012 OSH LM mild, LAD mild diffuse, LCX dominant mild, RCA 30-40% nondominant There have not been any changes in health status since last seen in clinic. No fevers, no chills, no bleeding. Outpatient Medications Marked as Taking for the 07/13/23 encounter (Hospital Encounter) Medication Sig Dispense Refill metoprolol succinate XL (Toprol-XL) 50 mg ER [...] Tablet Take 1 tablet by mouth daily. lvrfwfk-rtljwubxiniyl-mmznhynl (EXCEDRIN MIGRAINE) 250-250-65 mg per tablet Take 1 tablet by mouth every 6 hours as needed. ibuprofen (ADVIL;MOTRIN) 200 mg tablet Take 400 mg by mouth every 6 hours as needed. hydroCODone-acetaminophen (VICODIN) 5-500 mg per tablet Take 1 tablet by mouth every 6 hours as needed. zolpidem (AMBIEN) 10 mg tablet Take 1 tablet by mouth nightly. (Patient taking differently: Take 10mg by mouth nightly as needed.) 30 tablet 0 BP 148/84 (BP Location (NBP): Left arm) Comment: Right arm - 145/90 Pulse 66 Temp 36.1 ??C (97 ??F) (Temporal) Resp 18 Ht 198.1 cm (6' 5.99) Wt 113.4 kg (250 lb) BMI 28.90 kg/m?? Gen: Alert, comfortable,NAD Neck: Supple, no JVD CV: RRR, no M/R/G appreciated, normal S1/S2, PMI not palpated Resp: CTAB, no W/R/R Abd: Soft, NT/ND, +BS Ext: No edema LE b/l Neuro: CN grossly intact, moving all extremities Psych: Appropriate affect Pulses: 2+ bilateral femoral pulses, Labs reviewed and notable for: Lab Results Component Value Date WBC 9.2 02/08/2023 HGB 16.8 (H) 02/08/2023 HCT 49.9 (H) 02/08/2023 MCV 87.7 02/08/2023 PLATELET 196 02/08/2023 Lab Results Component Value Date CREATININE 0.91 02/08/2023 BUN 18 02/08/2023 NA 141 02/08/2023 K 4.6 02/08/2023 CL 104 02/08/2023 CO2 30 02/08/2023 Lab Results Component Value Date INR 1.0 03/25/2016 A/P 78 y.o. male here for cardiac catheterization for LAAO via watchman device - proceed as planned - consent signed - no apparent contraindication to anticoagulation. denies ongoing or recent bleeding events - FULL code -12-Lead ECG reviewed LOAD WITH ASPIRIN 324 mg prior to procedure I have personally discussed the procedure, including benefits and risks, with the patient who agrees to proceed. The indications for the catheterization, the expected benefits, and the possible riskswere reviewed in detail with the patient. The potential for , heart attack, stroke, kidney failure, bleeding, allergic reaction, vascular complications and infection were reviewed. The possibility of pericardiocentesis and other percutaneous interventions, with associated risk, was reviewed. The potential need for emergent surgery was reviewed. Alternatives were discussed and the patient's questions were answered in full. Following this discussion, the patient consented to the procedure and signed a form attesting to this, which is in the chart. 07/13/23 6:54 AM Faith Christy MD, M.Sc. Structural Heart Disease Fellow Pager :[phone] documented in this encounter Miscellaneous Notes * Brief Op Note - Darrel Matthews MD - 07/13/2023 9:59 AM EDT Images from the original note were not included. Preliminary Cardiac Catheterization Procedure Note: Patient Name: Jatinder Morrell : [id number] MR#: [id number] Case Date: 07/13/2023 [place] Machine Feeder: Panel 1: * Darrel Matthews MD - Primary * Faith Christy MD - Fellow - Assisting Panel 2: * Charbel Naqvi MD - Primary * Trina Trevino MD Preoperative diagnosis: A Fib Postoperative diagnosis: AFib s/p LAAO Procedure(s) performed: LAAO US guided venous access TALA/Fluoro guided Transseptal puncture Left Heart Catheterization LAAO (WATCHMAN) deployment Venous Closure L Radial arterial line Base Line TALA Demonstrated: ANI Appropriate for Closure without thrombus Max Elana 24 mm Right Femoral Vein 14 FR Watchman Double Curve Sheath US guided Right Femoral Vein Access. Under TALA guidance a Transseptal puncture was performed using the Antonio VersaCross System. The Antonio Sheath was then removed. A WM Double Curve sheath was tracked across the inter-atrial septum without difficulty. An angled angiographic pig tail catheter (6Fr) was then positioned in the ANI through which angiography was performed showing anatomy c/w TALA findings (LA = 10 mmHg). A Watchman FLX-Pro mm was prepped according to the Maintenance Services Dispatcher's IFU with special attention to elimante all air The WM/Delivery system was introduced into the access sheath, positioned in the ANI and deployed. After ~3 deployments the device appeared slightly flexed (bent). A new 31 mm FLX-Pro as outlined above. The device/delivery sheath assembly was then introduced into the sheath. After ~3 deployments it became apparent that the a new TSP site would be required. A repeat TSP was then performed using a more inferior and posterior approach. A Watchman new FLX-Pro 27 mm ([id number]) was prepped as outlined above. The WM/Delivery system was introduced into the access sheath, positioned in the ANI and deployed. After ~1 deployment it appeared that a good position was achieved.. A 'Tug Test' was performed after which a formal TALA evaluation showed the device to be well positioned with good compression and seal meeting PASS Criteria. The Device was then released. Repeat TALA evaluation reconfirmed good placement. Further evaluation reconfirmed good placement meeting PASS criteria. There was NO pericardial effusion. Contrast ~60 ml The sheath was then removed with hemostasis obtained by Perclosure. Anesthesia was then reversed and the patient extubated. 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 documented in this encounter Plan of Treatment Upcoming Encounters Date Type Department Care Team (Late st Contact Info) Description 02/26/2024 10:00 AM EST Hospital Encounter Non-In[place] [address] Arrived documented as of this encounter Procedures Procedure Name Priority Date/Time Associated Diagnosis Comments ECHO LMTD W/O CONTRAST W COLOR DOPP Routine 07/13/2023 12:11 PM EDT Presence of Watchman left atrial appendage closure device EKG 12-LEAD Routine 07/13/2023 10:27 AM EDT Presence of Watchman left atrial appendage closure device CARDIAC CATHETERIZATION Routine 07/13/19 10:06 AM EDT Atrial fibrillation, unspecified type BMP W/FASTING GLUCOSE Routine 07/13/2023 7:55 AM EDT HEMOGLOBIN AND HEMATOCRIT, BLOOD Routine 07/13/2023 7:55 AM EDT TRANSESOPHAGEAL ECHO DURING CATH/EP PROCEDURE 07/13/2023 7:32 AM EDT Atrial fibrillation, unspecified type ABORH RECHECK STATUS Routine 07/13/2023 6:46 AM EDT TYPE AND SCREEN ([facility]/CGP/MOSHE) Routine 07/13/2023 6:46 AM EDT CARDIAC CATH SCAN 07/13/2023 12: 00 AM EDT PERQ TRANSCATH CLOSURE LEFT ATRIAL APPENDAGE W ENDOCARD IMPLANT Routine 06/23/2023 12:23 PM EDT Atrial fibrillation, unspecified type documented in this encounter Results * ECHO LMTD W/O CONTRAST W COLOR DOPP (07/13/2023 12:11 PM EDT) Anatomical Region Laterality Modality Cardiac Other 07/13/2023 11:3 1 AM EDT Narrative 07/13/2023 12:27 PM EDT [address] [place] [address] ? Echocardiogram Report Name: JATINDER MORRELL ?Study Date: 07/13/2023 11:31 AMBP: 137/77 mmHg ? Patient Location: [facility] CR07 A : 1945 ? Height: 198 cm ? Account: [id number] Age: 78 yrs ? Weight: 113 kg Gender: Male ?BSA: 2.5 m2 Ordering Physician: FAITH CHRISTY Referring Physician: CHIVO ENRIQUEZ Performed By: Lorena Johns RDCS Reason For Study: Presence of Watchman left atrial appendage closure device Exam Location: [facility]. Interpretation Summary Limited study following Watchman implantation. LV function is probably normal. Interatrial septum is not well seen. There is no pericardial effusion. Procedure Limited - 51680. Color Doppler - 09241. Satisfactory quality. Left Ventricle Global left ventricular systolic function is normal. Right Ventricle There is a CIED lead in the right ventricle. Left Atrium There is a known left atrial appendage closure device (31 mm WATCHMAN FLX 2023). Atrial septostomy not well visualized. Right Atrium A pacemaker lead is present in the right atrium. Pericardium/Pleural There is no pericardial effusion. Procedure Note Steven Chavarria MD - 07/13/2023 [address] [id number] Echocardiogram Report Name: JATINDER MORRELL Study Date: 1:31 AMBP: 137/77 mmHg Patient Location: [address] : 1945 Height: 198 cm Account: [id number] Age: 78 yrs Weight: 113 kg Gender: Male BSA: 2.5 m2 Ordering Physician: FAITH CHRISTY Referring Physician: CHIVO ENRIQUEZ Performed By: Lorena Johns RDCS Reason For Study: Presence of Watchman left atrial appendage closuredevice Exam Location: [facility]. Interpretation Summary Limited study following Watchman implantation. LV function is probably normal. Interatrial septum is not well seen. There is no pericardial effusion. Procedure Limited - 02629. Color Doppler - 26279. Satisfactory quality. Left Ventricle Global left ventricular systolic function is normal. Right Ventricle There is a CIED lead in the right ventricle. Left Atrium There is a known left atrial appendage closure device (31 mm WATCHMAN FLX4-2023). Atrial septostomy not well visualized. Right Atrium A pacemaker lead is present in the right atrium. Pericardium/Pleural There is no pericardial effusion. Faith Christy MD ECHO ORDERABLES * EKG 12 Lead (07/13/2023 10:27 AM EDT) Ventricular rate 64 BPM MUSE SYSTEM Atrial Rate 64 BPM MUSE SYSTEM P-R Interval 222 ms MUSE SYSTEM QRS Duration 144 ms MUSE SYSTEM Q-T Interval 532 ms MUSE SYSTEM QTC Calculated (Bezet) 548 ms MUSE SYSTEM Calculated P Lattimore 32 degrees MUSE SYSTEM Calculated R Lattimore -65 degrees MUSE SYSTEM Calculated T Lattimore 64 degrees MUSE SYSTEM INTERPRETATION AV dual-paced rhythm with prolonged AV conduction Abnormal ECG When compared with ECG of 24-JAN-2022 13:57, Vent. rate has increased BY ?? 3 BPM Confirmed by MD NAYE, DENNISE ([id number]) on 07/13/2023 2:01:57 PM MUSE SYSTEM 07/13/2023 10:2 7 AM EDT 07/13/2023 2:01 PM EDT Faith Christy MD ECG ORDERABLES MUSE SYSTEM * CARDIAC CATHETERIZATION (07/13/2023 10:06 AM EDT) Anatomical Region Laterality Modality Other Narrative 07/13/2023 4:22 PM EDT ?[facility] ? Cardiac Catheterization/Intervention Report ? Patient Name: Parisa, Jatinder J. ? Procedure Date: 07/13/2023 ? A #: [id number] ? Primary Physician: Darrel Matthews V ? Case #: [id number] ? File Name: [id number] ? Catheterization Order Number: [id number] ? [facility] ? Final Report [place], [place] ? Patient Name: ? Jatinder J. Berley ? ID#: ?[id number] ? : ?1945 ? Procedure Date: ? July 13, 2023 ? Case #: ? [id number] ? Room: ? 6 ? Case Physicians: ?Darrel Matthews M.D. ? Start: ?08:15 ?Charbel Naqvi M.D. ? Admission: ??07/13/2023 ?Fellow: ? Emad Christelle Christy. ? Referring Physician: ??Chivo Enriquez P.A. ? Procedures: ?* Right Heart Catheterization ?* Vascular Closure Device Deployment ?* Endotracheal Intubation By Non-Cath Physician ?* Transesophageal Echo During Cath ?* Access Site Angiography ?* Anesthesia ?* Peripheral Intravascular Ultrasound ?* Left Atrial Appendage Closure ? History ?Jatinder Morrell is a 78 year old man. He has a family history of ?coronary artery disease. The patient's smoking status is Former. Prior to ?the initiation of this procedure, the patient was designated as ASA Class ?III. The C[facility] clinical frailty scale is 3: Managing Well. ? Diagnostic Tests: ?Medications Prior to Procedure: ? Beta Amanda. ? Indications for Diagnostic Cath: ?The priority of the diagnostic procedure was Elective. The indication for ?the rags laborer visit is other indication. Chest pain symptom assessment ?was: Asymptomatic. ? Technique: ?A 14Fr sheath was inserted in the right femoral vein utilizing the ?Seldinger technique. Left atrial pressure was performed with a 6Fr ANGLED ?PIGTAIL catheter. 14,000 units of heparin were administered. A total of ?200cc of Omnipaque were opened, 160cc of Omnipaque were administered and ?40cc of Omnipaque were wasted. Radiation: Fluoro time was 21.2 minutes, ?dose area product was 69.50 Gy/cm2 and air kerma was 618 mGY. See the ?case log for additional details. ?The patient received the following medications prior to and during the ?procedure: ? Unfractionated Heparin. ? Hemodynamics: ?Left Heart Pressures ? Resting: ? Syst Diast ? EDP ?a ?v ? m ?LA ? 13 ?11 ?10 ? Left Atrial Appendage closure (ANI closure): ?A left atrial appendage closure was performed for atrial fibrillation. ?The patient had a prior history of bleeding. The indication for the ?procedure was history of major bleed. ?The left atrial orifice had a maximal width of 24.0 mm determined by TALA. ?The procedure was performed with general anesthesia. ?Transseptal puncture was performed under transesophageal echo guidance ?using an 8.5 Fr VersaCross Transseptal 45 degree introducer. ?The left atrial occlusion procedure was performed with TALA guidance. An ?angled pigtail was placed in the left atrial appendage and exchanged for ?a Watchman TruSeal Double Curve delivery sheath. A Watchman FLX Closure ?Device 31 mm (s/l/n [id number]) was prepared and deployed using standard ?technique. The device was repositioned. The device met the PASS/CLOSE ?criteria. There was no residual device margin leak. ?There were no complications. ?The left atrial occlusion procedure was successful. ?Comments: Under TALA guidance a Transseptal puncture was performedusingthe ?Antonio VersaCrossSystem.The Antonio Sheathwas then removed.A WM Double ?Curve sheathwastracked across the inter-atrial septum without difficulty. ?An angled angiographic pig tail catheter (6Fr) wasthenpositionedin the ?ANI through which angiography was performedshowing anatomy c/w TALA ?findings (LA =10 mmHg). A Watchman ??FLX-Pro ??mm was preppedaccording to ?the Maintenance Services Dispatcher's IFU with special attention to elimante all air ??The ?WM/Delivery system was introduced into the access sheath, positioned in ?the ANI and deployed. After ~3 deployments the device appeared slightly ?flexed (bent). ??A new 31 mm FLX-Pro as outlined above. The ?device/delivery sheath assembly was then introduced into the sheath. ?After ~3 deployments it became apparent that the a new TSP site would be ?required. ??A repeat TSP was then performed using a more inferior and ?posterior ??approach. ??A Watchman ??new FLX-Pro 27 mm ([id number]) was ?preppedas outlined above. ??The WM/Delivery system was introduced into the ?access sheath, positioned in the ANI and deployed. After ~1 deployment it ?appeared that a good position was achieved..A 'Tug Test'was performed ?after which aformal TALA evaluation showed the device to bewell positioned ?with good compressionand sealmeeting PASS Criteria. The Device was then ?released. Repeat TALA evaluation reconfirmed good placement. Further ?evaluationreconfirmed good placement meeting PASS criteria.There was NO ?pericardial effusion. ? Vascular Access: ?Vascular Access Management: ? A 6 Fr Perclose was deployed at the right femoral vein access site. ? This device was successful. ? Dual Antiplatelet (DAPT) Recommendations: ?Patient was not on a P2Y12 inhibitor prior to nor was it given in the ?rags laborer. ?These recommendations are made at the time of the intervention. Patient ?and provider preferences or a changing clinical situation may require ?modification of this regimen. Consult [facility] for ?questions. ? Conclusions: ?* Successful left atrial occlusion procedure ?* See Dual Antiplatelet (DAPT) Recommendations above ? Complications/Events: ?The patient had no complications during these procedures. ?The attending physician was present for the entire procedure. ?Dr. Darrel Matthews M.D. performed the right heart catheterization, ANI ?closure, access site angiography, peripheral intravascular ultrasound and ?vascular closure device. Dr. Charbel Naqvi M.D. performed the ?anesthesia, transesophageal echo during cath and intubation-non cath ?physician. ? Darrel Matthews M.D. ? Electronically Signed by: Darrel Matthews M.D. ? Report Finalized: 07/13/2023 ??16:17 ? Procedure Note Darrel Matthews MD - 07/13/2023 [facility] Cardiac Catheterization/Intervention Report Patient Name: Parisa Jatinder MancillaGovind Procedure Date: 07/13/2023 A #: [id number] Primary Physician: Darrel Matthews V Case #: [id number] File Name: [id number] Catheterization Order Number: [id number] [facility] FinalReport [place], [place] Patient Name: Jatinder Morrell ID#:[id number] :1945 Procedure Date: July 13, 2023 Case #: [id number] Room: 6 Case Physicians: Darrel Matthews M.D. Start: 08:15 Charbel Naqvi M.D. Admission:07/13/2023 Fellow: Faith Christy M.D. Referring Physician: Belle Lawler Procedures: * Right Heart Catheterization * Vascular Closure Device Deployment * Endotracheal Intubation By Non-Cath Physician * Transesophageal Echo During Cath * Access Site Angiography * Anesthesia * Peripheral Intravascular Ultrasound * Left Atrial Appendage Closure History Jatinder Morrell is a 78 year old man. He has a family history of coronary artery disease. The patient's smoking status is Former.Prior to the initiation of this procedure, the patient was designated as ASAClass III. The [facility] clinical frailty scale is 3: Managing Well. Diagnostic Tests: Medications Prior to Procedure: Beta Amanda. Indications for Diagnostic Cath: The priority of the diagnostic procedure was Elective. Theindication for the rags laborer visit is other indication. Chest pain symptomassessment was: Asymptomatic. Technique: A 14Fr sheath was inserted in the right femoral vein utilizing the Seldinger technique. Left atrial pressure was performed with a 6FrANGLED PIGTAIL catheter. 14,000 units of heparin were administered. A totalof 200cc of Omnipaque were opened, 160cc of Omnipaque were administeredand 40cc of Omnipaque were wasted. Radiation: Fluoro time was 21.2minutes, dose area product was 69.50 Gy/cm2 and air kerma was 618 mGY. Seethe case log for additional details. The patient received the following medications prior to and duringthe procedure: Unfractionated Heparin. Hemodynamics: Left Heart Pressures Resting: Syst Diast EDP a v m LA 13 11 10 Left Atrial Appendage closure (ANI closure): A left atrial appendage closure was performed for atrialfibrillation. The patient had a prior history of bleeding. The indication for the procedure was history of major bleed. The left atrial orifice had a maximal width of 24.0 mm determined byTEE. The procedure was performed with general anesthesia. Transseptal puncture was performed under transesophageal echoguidance using an 8.5 Fr VersaCross Transseptal 45 degree introducer. The left atrial occlusion procedure was performed with TALA guidance.An angled pigtail was placed in the left atrial appendage and exchangedfor a Watchman TruSeal Double Curve delivery sheath. A Watchman FLXClosure Device 31 mm (s/l/n [id number]) was prepared and deployed usingstandard technique. The device was repositioned. The device met thePASS/CLOSE criteria. There was no residual device margin leak. There were no complications. The left atrial occlusion procedure was successful. Comments: Under TALA guidance a Transseptal puncture wasperformedusingthe Antonio VersaCrossSystem.The Antonio Sheathwas then removed.A WMDouble Curve sheathwastracked across the inter-atrial septum withoutdifficulty. An angled angiographic pig tail catheter (6Fr) wasthenpositionedinthe ANI through which angiography was performedshowing anatomy c/w TALA findings (LA =10 mmHg). A Watchman FLX-Pro mm was preppedaccordingto the Maintenance Services Dispatcher's IFU with special attention to elimante all airThe WM/Delivery system was introduced into the access sheath, positionedin the ANI and deployed. After ~3 deployments the device appearedslightly flexed (bent). A new 31 mm FLX-Pro as outlined above. The device/delivery sheath assembly was then introduced into the sheath. After ~3 deployments it became apparent that the a new TSP sitewould be required. A repeat TSP was then performed using a more inferior and posterior approach. A Watchman new FLX-Pro 27 mm ([id number]) was preppedas outlined above. The WM/Delivery system was introducedinto the access sheath, positioned in the ANI and deployed. After ~1deployment it appeared that a good position was achieved..A 'Tug Test'wasperformed after which aformal TALA evaluation showed the device to bewellpositioned with good compressionand sealmeeting PASS Criteria. The Device wasthen released. Repeat TALA evaluation reconfirmed good placement. Further evaluationreconfirmed good placement meeting PASS criteria.There wasNO pericardial effusion. Vascular Access: Vascular Access Management: A 6 Fr Perclose was deployed at the right femoral vein accesssite. This device was successful. Dual Antiplatelet (DAPT) Recommendations: Patient was not on a P2Y12 inhibitor prior to nor was it given inthe rags laborer. These recommendations are made at the time of the intervention.Patient and provider preferences or a changing clinical situation mayrequire modification of this regimen. Consult [facility] Cardiologyfor questions. Conclusions: * Successful left atrial occlusion procedure * See Dual Antiplatelet (DAPT) Recommendations above Complications/Events: The patient had no complications during these procedures. The attending physician was present for the entire procedure. Dr. Darrel Matthews M.D. performed the right heart catheterization,ANI closure, access site angiography, peripheral intravascular ultrasoundand vascular closure device. Dr. Charbel Naqvi M.D. performed the anesthesia, transesophageal echo during cath and intubation-non cath physician. Darrel Matthews M.D. Electronically Signed by: Darrel Matthews M.D. Report Finalized: 07/13/2023 16:17 Darrel Alicea MD CARDIAC CATH ORDERAB LES * Hemoglobin and Hematocrit, blood (07/13/2023 7:55 AM EDT) Hemoglobin 15.7 13.7 - 16.5 g/dL [facility] Hematocrit 47.5 40.5 - 48.5 % [facility] Blood 07/13/2023 7:55 AM EDT 07/13/2023 8:16 AM EDT Narrative Resulting Agency Comment Spec In Lab Darrel Alicea MD HEMATOLOGY ORDERABLE S [facility] [place] [address] * (ABNORMAL) BMP w/fasting Glucose (07/13/2023 7:55 AM EDT) [facility] Signature Glucose Fasting 103(H) 65 - 99 mg/dL [facility] Comment: ?Fasting* Glucose Interpretive Criteria Normal ?65-99 mg/dL Impaired Fasting glucose ?100-125 mg/dL Consistent with Diabetes Mellitus ? >or= 126 mg/dL *Fasting is defined as no caloric intake for at least 8 hours In the absence of unequivocal hyperglycemia a plasma glucose value of >or= 126 mg/dL should be repeated on a subsequent day. Diagnosis and Classification of Diabetes Mellitus, Position Statement from the [employer]. ??Diabetes Care, Volume 33, Supplement 1, Mar 2009 Blood Urea Nitrogen 17 10 - 20 mg/dL [facility] Creatinine 0.82 0.80 - 1.50 mg/dL [facility] Sodium 139 135 - 145 mmol/L [facility] Potassium 4.1 3.5 - 5.0 mmol/L [facility] Comment: Please note: ??Patients with WBC >100,000 may have falsely elevated Potassium levels. ??For accurate Potassium quantification in these patients send serum separator tube (gold top) for subsequent determinations. ??Contact the Clinical Chemistry Laboratory if there are any questions. Chloride 103 98 - 107 mmol/L [facility] Carbon Dioxide 27 22 - 31 mmol/L [facility] Anion Gap 9 5 - 15 mmol/L [facility] Calcium 9.2 8.5 - 10.5 mg/dL [facility] Est Glomerular Filtration Rate 90 >=60 mL/min/1. 73 m?? [facility] Comment: This patient's [...] and symptoms in addition to eGFR. Blood 07/13/2023 7:55 AM EDT 07/13/2023 8:16 AM EDT Narrative Resulting Agency Comment Spec In Lab Darrel Alicea MD CHEMISTRY ORDERABLES Performing Organization Address [facility]/ZIP Co de Phone Number [facility] [place] [address] * ABORH Recheck Status (07/13/2023 6:46 AM EDT) ABORH Recheck Order Order Placed [facility] ABORH Type Recheck Completed [facility] Blood 07/13/2023 6:46 AM EDT 07/13/2023 6:52 AM EDT Narrative Resulting Agency Comment Spec In Lab Oneyda Neumann MD BLOOD BANK LAB OR DERABLES Performing Organization Address [facility]/ZIP Co de Phone Number [facility] [place] [address] * Type and screen (MC/CGP/MOSHE) (07/13/2023 6:46 AM EDT) ABORH Type A POSITIVE [facility] Patient BB History Not Found [facility] Expires at 2359 on: 07/16/2023 [facility] Ab Screen Interp Negative [facility] Blood 07/13/2023 6:46 AM EDT 07/13/2023 6:46 AM EDT Narrative [facility] - 07/13/2023 6:46 AM EDT This Type and Screen result is only valid at the [facility] Resulting Agency Comment Spec In Lab Oneyda Neumann MD BLOOD BANK LAB OR DERABLES [facility] [place] [address] * SCAN DOC: CARDIAC CATH (07/13/2023 12:00 AM EDT) Anatomical Region Laterality Modality Cardiac Other Narrative 07/13/2023 12:00 AM EDT Ordered by an unspecified provider. Scanning Provider MEDIA MGR SCAN EXT O RDR/RSLT documented in this encounter Visit Diagnoses Diagnosis Atrial fibrillation, unspecified type Presence of Watchman left atrial appendage closure device Atrial fibrillation, unspecified type documented in this encounter Admitting Diagnoses Diagnosis A-fib Atrial fibrillation documented in this encounter Administered Medications Inactive Administered Medications - up to 3 most recent administrations Medication Order MAR Action Action Date Dose Rate Site aspirin EC tablet 325 mg 325 mg, Oral, DAILY, First dose on Tasneem 07/13/23 at 0900, Until Discontinued, Routine aspirin EC tablet 81 mg 81 mg, Oral, DAILY, First dose on Mon07/14/23 at 0900, Until Discontinued, Recovery (Recovery-Hospital Unit), Routine clopidogreL (Plavix) tablet 300 mg 300 mg, Oral, ONCE, 1 dose, On Tasneem 07/13/23 at 1045, Routine Given 07/13/2023 10:45 AM EDT 300 mg clopidogreL (Plavix) tablet 75 mg 75 mg, Oral, DAILY, First dose on Mon07/14/23 at 0900, Until Discontinued, Recovery (Recovery-Hospital Unit), Routine lactated ringers infusion 1,000 mL, at 100 mL/hr, Intravenous, CONTINUOUS, Starting on Tasneem 07/13/23 at 0645, Until Tasneem 07/13/23 at 1659, Day of Surgery (Day of Procedure) lidocaine (Xylocaine) 1% (10 mg/mL) injection 3 mg 3 mg (0.3 mL), Subcutaneous, ONCE PRN, 1 dose, Starting on Tasneem 07/13/23 at 0620, Until Tasneem 07/13/23 at 1659, for discomfort with PIV insertion, Day of Surgery (Day of Procedure), Routine lidocaine (Xylocaine) 1% (10 mg/mL) injection 3 mg 3 mg (0.3 mL), Subcutaneous, ONCE PRN, 1 dose, Starting on Tasneem 07/13/23 at 0620, Until Tasneem 07/13/23 at 1659, for discomfort with PIV insertion, Day of Surgery (Day of Procedure), Routine sodium chloride 0.9 % (flush) (BD PosiFlush Normal Saline 0.9) flush 5 mL 5 mL, Intravenous, EVERY 12 HOURS, First dose on Tasneem 07/13/23 at 0645, Until Discontinued, Day of Surgery (Day of Procedure), Routine sodium chloride 0.9 % (flush) (BD PosiFlush Normal Saline 0.9) flush 5-20 mL 5-20 mL, Intravenous, EVERY 1 MIN PRN, Starting on Tasneem 07/13/23 at 0620, Until Tasneem 07/13/23 at 1659, flush, Flush pertains to all indwelling lines. Flush per protocol found in the job aid using the link provided on this medication record., Day of Surgery (Day of Procedure), Routine sodium chloride 0.9 % (flush) (BD PosiFlush Normal Saline 0.9) flush 5-20 mL 5-20 mL, Intravenous, EVERY 1 MIN PRN, Starting on Tasneem 07/13/23 at 0620, Until Tasneem 07/13/23 at 1659, flush, Flush pertains to all indwelling lines. Flush per protocol found in the job aid using the link provided on this medication record., Day of Surgery (Day of Procedure), Routine sodium chloride 0.9% infusion 150 mL/hr, Intravenous, CONTINUOUS, Starting on Tasneem 07/13/23 at 1115, Until Tasneem 07/13/23 at 1414, Recovery (Recovery-Hospital Unit) New Bag 07/13/2023 11:15 AM EDT 150 mL/hr 150 mL/hr documented in this encounter Active and Recently Administered Medications Times are shown in EDT. Scheduled Medication Order 07/11/2023 07/12/2023 07/13/2023 aspirin EC tablet 325 mg 325 mg, Oral, DAILY, First dose on Tasneem 07/13/23 at 0900, Until Discontinued, Routine 0900 (Due) aspirin EC tablet 81 mg 81 mg, Oral, DAILY, First dose on Mon07/14/23 at 0900, Until Discontinued, Recovery (Recovery-Hospital Unit), Routine clopidogreL (Plavix) tablet 300 mg (COMPLETED) 300 mg, Oral, ONCE, 1 dose, On Tasneem 07/13/23 at 1045, Routine 1045 (Given - Provid er: Bobby Baptiste RN) clopidogreL (Plavix) tablet 75 mg 75 mg, Oral, DAILY, First dose on Mon07/14/23 at 0900, Until Discontinued, Recovery (Recovery-Hospital Unit), Routine sodium chloride 0.9 % (flush) (BD PosiFlush Normal Saline 0.9) flush 5 mL 5 mL, Intravenous, EVERY 12 HOURS, First dose on Tasneem 07/13/23 at 0645, Until Discontinued, Day of Surgery (Day of Procedure), Routine 0645 (Due) Continuous Medication Order 07/11/2023 07/12/2023 07/13/2023 lactated ringers infusion 1,000 mL, at 100 mL/hr, Intravenous, CONTINUOUS, Starting on Tasneem 07/13/23 at 0645, Until Tasneem 07/13/23 at 1659, Day of Surgery (Day of Procedure) 0645 (Due) sodium chloride 0.9% infusion 150 mL/hr, Intravenous, CONTINUOUS, Starting on Tasneem 07/13/23 at 1115, Until Tasneem 07/13/23 at 1414, Recovery (Recovery-Hospital Unit) 1115 ([facility] ider: Bobby Baptiste RN) PRN Medication Order 07/11/2023 07/12/2023 07/13/2023 aspirin chewable tablet (CANCELED) PRN, Starting on Tasneem 07/13/23 at 0733, Until Tasneem 07/13/23 at 1018, Intra-Operative (Intra-Procedure), Routine 0733 (Given - Provid er: Laurent Jordan RN) heparin (porcine) (1,000 units/mL) injection (CANCELED) PRN, Starting on Tasneem 07/13/23 at 0830, Until Tasneem 07/13/23 at 0959, Intra-Operative (Intra-Procedure), Routine 0830 (Given - Provid er: Macario Hawthorne CRNA)0844 (Given - Provider: Macario Hawthorne CRNA)0852 (Given - Provider: Macario Hawthorne CRNA)0910 (Given - Provider: Macario Hawthorne CRNA) lidocaine (Xylocaine) 1% (10 mg/mL) injection 3 mg 3 mg (0.3 mL), Subcutaneous, ONCE PRN, 1 dose, Starting on Tasneem 07/13/23 at 0620, Until Tasneem 4 at 1659, for discomfort with PIV insertion, Day of Surgery (Day of Procedure), Routine lidocaine (Xylocaine) 1% (10 mg/mL) injection 3 mg 3 mg (0.3 mL), Subcutaneous, ONCE PRN, 1 dose, Starting on Tasneem 07/13/23 at 0620, Until Tasneem 07/13/23 at 1659, for discomfort with PIV insertion, Day of Surgery (Day of Procedure), Routine sodium chloride 0.9 % (flush) (BD PosiFlush Normal Saline 0.9) flush 5-20 mL 5-20 mL, Intravenous, EVERY 1 MIN PRN, Starting on Tasneem 07/13/23 at 0620, Until Tasneem 07/13/23 at 1659, flush, Flush pertains to all indwelling lines. Flush per protocol found in the job aid using the link provided on this medication record., Day of Surgery (Day of Procedure), Routine sodium chloride 0.9 % (flush) (BD PosiFlush Normal Saline 0.9) flush 5-20 mL 5-20 mL, Intravenous, EVERY 1 MIN PRN, Starting on Tasneem 07/13/23 at 0620, Until Tasneem 07/13/23 at 1659, flush, Flush pertains to all indwelling lines. Flush per protocol found in the job aid using the link provided on this medication record., Day of Surgery (Day of Procedure), Routine documented in this encounter Care Teams Photo Machine Operator Relationship Specialty Start Date End Date Andrew Siu DNP [address] [place] [phone] PCP - General Family Medicine 08/08/22 documented as of this encounter
--- OUTSIDE RECORDS SUMMARY | 2023-12-11 18:42 | XMS_ITS | Encounter Summary ---
[place] [address] Care Team Providers Care Feed Mill Lab Technician Name Role Phone Andrew Siu DNP Primary Care Provider [phone] Reason for Referral * Diagnostic Test (Routine) - Closed Specialty Diagnoses / Procedures Referred By Contac t Referred To Contact Cardiology Diagnoses Atrial fibrillation, unspecified type Procedures Transesophageal Echocardiogram (TALA) Dinesh Matthews MD [facility] [place] [address] [place] [address] [facility] [place] [address] Referral ID Status Reason Start Date Expiration Date V isits Requested Visits Authorized [id number] Closed Specialty Service Requested 06/22/2023 06/21/2024 1 1 Reason for Visit * Diagnostic Test (Routine) - Closed Specialty Diagnoses / Procedures Referred By Contac t Referred To Contact Cardiology Diagnoses Atrial fibrillation, unspecified type Procedures Transesophageal Echocardiogram (TALA) Dinesh Matthews MD [facility] [place] [address] [place] [address] [facility] [place] [address] Referral ID Status Reason Start Date Expiration Date V isits Requested Visits Authorized [id number] Closed Specialty Service Requested 06/22/2023 06/21/2024 1 1 Encounter Details Date Type Department Care Team (Latest Contact Info) Description 07/13/2023 6:35 AM EDT - 07/13/2023 11:59 PM EDT Hospital Encounter Non-Invasive Cardiology Lab [facility] [place] [address] Clarice Bull APRN [facility] [place] [address] Atrial fibrillation, unspecified type Discharge Disposition: Home Social History Tobacco Use [...] nightly. 08/28/2023 documented as of this encounter Plan of Treatment Upcoming Encounters Date Type Department Care Team (Late st Contact Info) Description 02/26/2024 10:00 AM EST Hospital Encounter Non-Invasive [place]iology [place] [address] Arrived documented as of this encounter Procedures Procedure Name Priority Date/Time Associated Diagnosis Comments TALA FOR GUIDANCE Routine 07/13/2023 10:3 3 AM EDT Atrial fibrillation, unspecified type documented in this encounter Results * TALA FOR GUIDANCE (07/13/2023 10:33 AM EDT) EF 60 HEART[employer] SYSTEM Anatomical Region Laterality Modality Cardiac Other 07/13/2023 7:37 AM EDT Narrative 07/13/2023 5:00 PM EDT ? Transesophageal Echocardiogram Report Name: JATINDER MORRELL ?Study Date: 07/13/2023 07:37 AMBP: 148/84 mmHg ? HR: 69 : 1945 ? Height: 198 cm Age: 78 yrs ? Weight: 113 kg Gender: Male ?BSA: 2.5 m2 Referring Physician: DINESH MATTHEWS Performed By: Trina Trevino MD Reason For Study: Arrhythmia History: Watchman Guidance Interpreting Fellow: Trina Trevino. Exam Location: [facility]. Interpretation Summary TALA performed for guidance during [...] septostomy sites. See report for additional findings. Procedure Complete Guidance Transesophageal echocardiogram, real-time with image documentation (2D) including probe placement, image acquisition, interpretation, and report; Color flow velocity mapping; PW and/or CW doppler display. After suitable sedation by anesthesia, the probe was inserted without difficulty. Probe passed by: Trina Trevino. 3D image acquisition, rendering with interpretation and reporting, not requiring post-processing on an independent workstation. There were no complications during the procedure. The study images were of technically good quality. Informed consent from the patient in writing. The risks and benefits of the procedure were explained in detail to the patient, including but not limited to the risk of aspiration, dysphagia, and esophageal perforation. Patient agreed to proceed. Left Ventricle Left ventricular systolic function is normal. Left ventricular ejection fraction is estimated visually at 60%. Right Ventricle There is a CIED lead in the right ventricle. Right ventricular systolic function is normal. Left Atrium The left atrium is normal. There is no thrombus in the left atrial appendage. Right Atrium A pacemaker lead is present in the right atrium. Aortic Valve The aortic valve is tricuspid. There is no aortic stenosis. There is trace aortic regurgitation. Mitral Valve The mitral valve is structurally normal. There is no mitral stenosis. There is mild mitral regurgitation. Tricuspid Valve The tricuspid valve is structurally normal. There is trace tricuspid regurgitation. Pulmonic Valve The pulmonic valve appears to be structurally and functionally normal. There is no pulmonic valve regurgitation. Great Arteries The diameter at the level of the sinuses of Valsalva is 3.9 cm. The maximum diameter of the proximal ascending aorta is 3.7 cm. No abnormalities of the pulmonary artery are identified. Ascending Plaque grade 2: (extensive intimal thickening). Aortic Arch Plaque grade 2: (extensive intimal thickening). Descending Thoracic Aorta Plaque grade 2: (extensive intimal thickening). Pericardium/Pleural There is no pericardial effusion. ? 2D Measurements ?Ao root diam: 3.9 cm ?Ao root diam index: 1.6 ?asc Aorta Diam: 3.7 cm Procedure Note Charbel Naqvi MD - 07/13/2023 Transesophageal Echocardiogram Report Name: JATINDER MORRELL Study Date: 407:37 AMBP: 148/84 mmHg HR: 69 : 1945 Height: 198 cm Age: 78 yrs Weight: 113 kg Gender: Male BSA: 2.5 m2 Referring Physician: DINESH MATTHEWS Performed By: Trina Trevino MD Reason For Study: Arrhythmia History: Watchman Guidance Interpreting Fellow: Trina Trevino. Exam Location: [facility]. Interpretation Summary TALA performed for guidance during left atrial appendage occluderplacement. PRE-PROCEDURE: - There is no evidence of thrombus in the left atrial appendage.Measurements are annotated in the images. - Left ventricular systolic function is normal. LVEF is visually estimatedat 60%. - Right ventricular systolic function is normal. - No significant valvular abnormalities. POST-PROCEDURE: - 31 mm WATCHMAN FLX PRO is well-seated in the left atrial appendage.Compression measurements are annotated. There is no yudelka-device leak. - Biventricular function remains normal. - No pericardial effusion. - Bidirectional flow across the two atrial septostomy sites. See report for additional findings. Procedure Complete Guidance Transesophageal echocardiogram, real-time with image documentation (2D) including probe placement, image acquisition,interpretation, and report; Color flow velocity mapping; PW and/or CW doppler display.After suitable sedation by anesthesia, the probe was inserted withoutdifficulty. Probe passed by: Trina Trevino. 3D image acquisition, rendering withinterpretation and reporting, not requiring post-processing on an independent workstation.There were no complications during the procedure. The study images were oftechnically good quality. Informed consent from the patient in writing. The risks andbenefits of the procedure were explained in detail to the patient, including but notlimited to the risk of aspiration, dysphagia, and esophageal perforation. Patientagreed to proceed. Left Ventricle Left ventricular systolic function is normal. Left ventricular ejectionfraction is estimated visually at 60%. Right Ventricle There is a CIED lead in the right ventricle. Right ventricular systolicfunction is normal. Left Atrium The left atrium is normal. There is no thrombus in the left atrialappendage. Right Atrium A pacemaker lead is present in the right atrium. Aortic Valve The aortic valve is tricuspid. There is no aortic stenosis. There is traceaortic regurgitation. Mitral Valve The mitral valve is structurally normal. There is no mitral stenosis.There is mild mitral regurgitation. Tricuspid Valve The tricuspid valve is structurally normal. There is trace tricuspid regurgitation. Pulmonic Valve The pulmonic valve appears to be structurally and functionally normal.There is no pulmonic valve regurgitation. Great Arteries The diameter at the level of the sinuses of Valsalva is 3.9 cm. Themaximum diameter of the proximal ascending aorta is 3.7 cm. No abnormalities ofthe pulmonary artery are identified. Ascending Plaque grade 2: (extensiveintimal thickening). Aortic Arch Plaque grade 2: (extensive intimal thickening). Descending Thoracic Aorta Plaque grade 2: (extensive intimalthickening). Pericardium/Pleural There is no pericardial effusion. 2D Measurements Ao root diam: 3.9 cm Ao root diam index: 1.6 asc Aorta Diam: 3.7 cm Clarice Bull APRN ECHO ORDERABLES documented in this encounter Visit Diagnoses Diagnosis Atrial fibrillation, unspecified type documented in this encounter Care Teams Feed Mill Lab Technician Relationship Specialty Start Date End Date Andrew Siu DNP [address] [place] [address] PCP - General Family Medicine 08/08/22 documented as of this encounter
--- OUTSIDE RECORDS SUMMARY | 2023-12-11 18:42 | XMS_ITS | Encounter Summary ---
[place] [address] Care Team Providers Care Account Information Clerk Name Role Phone Andrew Siu DNP Primary Care Provider [phone]- [phone] Encounter Details Date Type Department Care Team (Latest Contact Info) Description 06/12/2023 Travel Social History Tobacco Use Types Packs/Day [...] AM EST Hospital Encounter Non-[place] [address] Arrived documented as of this encounter Visit Diagnoses Not on filedocumented in this encounter Care Teams Account Information Clerk Relationship Specialty Start Date End Date Andrew Siu DNP [address] [place] [phone] PCP - General Family Medicine 08/08/22 documented as of this encounter
--- OUTSIDE RECORDS SUMMARY | 2023-12-11 18:42 | XMS_ITS | Encounter Summary ---
[place] [address] Care Team Providers Care Battery Parts Assembler Name Role Phone Andrew Siu DNP Primary Care Provider [phone]- [phone] Reason for Visit * Reason Onset Date Comments Post Procedure Call 02/22/2023 Encounter Details Date Type Department Care Team (Late st Contact Info) Description 02/22/2023 Notes Only Cardiology at [address] [address] Delicia Hidalgo, RN Post Procedure Call Social History Tobacco Use Types Packs/Day Years Used Date Smoking Tobacco: Former Cigarettes Q uit: 01/12/1996 Smokeless Tobacco: Never Comments:stopped 15 years Alcohol Use Standard Drinks/Week Comments Yes 1 (1 standard drink = 0.6 oz pur e alcohol) 1 drink a day [facility] Questions Answer Date Recorded Does Anyone [...] as of this encounter Progress Notes * Delicia Hidalgo, RN - 02/22/2023 9:15 AM ESTSummary: Post Procedure Call: Generator replacement SHARRON RN Post-Procedure Note: Date of Follow Up Call: 02/22/2023 Spoke With: Patient Procedure Type (choose all that apply): Device Generator Replacement Performing MD: Michelle Date of Procedure: 02/17/2023 Date of Discharge: 02/17/2023 Follow Up EP Visit Scheduled?: Yes Date of EP Visit: 02/24/2023 Intra or Post Procedure Event: Did any Intra or Post Procedure Events Occur?: No Medications at Hospital Discharge: Aspirin: No P2Y12 Inhibitor: No Other Antiplatelet: No Warfarin: No DOAC: No Other Anticoagulant: No Beta Amanda (any): No Digoxin: No Diltiazem/Verapamil: No Amiodarone: No Dofetilide: No Dronedarone: No Flecainide: No Propafenone: No Sotalol: No PPI: Yes Other Antiarrhythmic: No Assessment: Access Site Assessment (Choose all that apply): None of the above UTI symptoms (Choose all that apply): None of the above Signs and Symptoms of Infection (Choose all that apply): None of the above Headaches: No Complaints of: (choose all that apply): None of the above Free Text Note: Follow Up Instruction: Wound Care: -Wound will heal in approx 7-10 days.It may be tender, it may appear slightly red and bumpy and there may -be dry, crusty scabbing. These are all normal. -Inspect the wound for signs of infection which can be drainage, swelling, warmth or increased painor redness. - Do not scratch or rub the wound or apply any creams, lotions or ointments on the wound until it is completely healed. - You may cover the wound with gauze if it rubs on clothing and causes you discomfort. - Avoid direct water pressure on the wound - continue this for 7 - 10 days. Do not submerge wound for 14 days - Do not scrub or wash would if Dermabond is used - You may remove your dressing on: February 24 documented in this encounter Plan of Treatment Upcoming Encounters Date Type Department Care Team (Late st Contact Info) Description 02/26/2024 10:00 AM EST Hospital Encounter Non-Invasive [place] [address] Arrived documented as of this encounter Visit Diagnoses Not on filedocumented in this encounter Care Teams Battery Parts Assembler Relationship Specialty Start Date End Date Andrew Siu DNP [address] [place] [address] PCP - General Family Medicine 08/08/22 documented as of this encounter
--- OUTSIDE RECORDS SUMMARY | 2023-12-11 18:42 | XMS_ITS | Encounter Summary ---
[place] [address] Care Team Providers Care Legal Clerk Name Role Phone Andrew Siu DNP Primary Care Provider [phone]- [phone] Encounter Details Date Type Department Care Team ([facility] st Contact Info) Description 06/21/2023 Notes Only Cardiology at [address] [phone] Terrie Jean, RN Social History Tobacco Use Types Packs/Day Years Used Date Smoking Tobacco: Former Cigarettes Q uit: 01/12/1996 Smokeless Tobacco: Never Comments:stopped 15 years Alcohol Use Standard Drinks/Week Comments Yes 1 (1 standard drink = 0.6 oz pur e alcohol) 1 drink a day [facility] Inpatient Questions Answer Date Recorded Does Anyone [...] as of this encounter Progress Notes * Terrie Jean RN - 06/21/2023 2:15 PM EDT Spoke with in regard to scheduling LAAO. He accepted 07/12 as a procedure date. Pre and post education reviewed, he verbalized understanding. No anticoagulation to stop prior. documented in this encounter Plan of Treatment Upcoming Encounters Date Type Department Care Team (Late st Contact Info) Description 02/26/2024 10:00 AM [facility] Hospital Encounter Non-Invasive [place] [address] Arrived documented as of this encounter Visit Diagnoses Not on filedocumented in this encounter Care Teams Legal Clerk Relationship Specialty Start Date End Date Andrew Siu DNP [address] [place] [address] PCP - General Family Medicine 08/08/22 documented as of this encounter
--- OUTSIDE RECORDS SUMMARY | 2023-12-11 18:42 | XMS_ITS | Encounter Summary ---
[place] [address] Care Team Providers Care Phlebotomist Associate Name Role Phone Andrew Siu DNP Primary Care Provider [phone]- [phone] Encounter Details Date Type Department Care Team (Latest Contact Info) Description 02/24/2023 Travel Social History Tobacco Use Types Packs/Day [...] AM EST Hospital Encounter [place] [address] Arrived documented as of this encounter Visit Diagnoses Not on filedocumented in this encounter Care Teams Phlebotomist Associate Relationship Specialty Start Date End Date Andrew Siu DNP [address] [place] [phone] PCP - General Family Medicine 08/08/22 documented as of this encounter
--- OUTSIDE RECORDS SUMMARY | 2023-12-11 18:42 | XMS_ITS | Encounter Summary ---
[place] [address] Care Team Providers Care Primary Health Care Nurse Name Role Phone Andrew Siu DNP Primary Care Provider [phone]- [phone] Encounter Details Date Type Department Care Team (Late st Contact Info) Description 05/04/2023 Notes Only Cardiology at [address] [phone] Terrie Jean RN Social History Tobacco Use Types Packs/Day Years Used Date Smoking Tobacco: Former Cigarettes Q uit: 01/12/1996 Smokeless Tobacco: Never Comments:stopped 15 years Alcohol Use Standard Drinks/Week Comments Yes 1 (1 standard drink = 0.6 oz pur e alcohol) 1 drink a day [facility] Inpatient Questions Answer Date Recorded Does [...] Progress Notes * Terrie Jean RN - 05/04/2023 10:23 AM EST Mr. Mccauley is a 77 year old male who presents with paroxysmal atrial fibrillation and is referred by POLA Taarngo for consideration of left atrial appendage closure options. Please refer to recent clinic notes for a detailed history and assessment. In brief, the patient has a history of hematur ia while on Eliquis and is looking for nonpharmacologic ways to manage stroke risk . His history includes the following: paroxysmal a-fib, complete heart block s/p ORGANIZATIONAL EFFECTIVENESS DIRECTOR-D, non-ischemic cardiomyopathy,NFimpEF, LBBB, HTN, and ETOH use. EHT1MI5 VASc: 4 (HF, HTN, age) HAS-BLED:4 (HTN, bleeding, age, and ETOH) Antiplatelet/anticoagulation: none Plan: schedule clinic with diagnostics following MD assessment. documented in this encounter Plan of Treatment Upcoming Encounters Date Type Department Care Team (Late st Contact Info) Description 02/26/2024 10:00 AM EST Hospital Encounter Non[place] [address] Arrived documented as of this encounter Visit Diagnoses Not on filedocumented in this encounter Care Teams Primary Health Care Nurse Relationship Specialty Start Date End Date Andrew Siu DNP [address] [place] [address] PCP - General Family Medicine 08/08/22 documented as of this encounter
--- OUTSIDE RECORDS SUMMARY | 2023-12-11 18:42 | XMS_ITS | Encounter Summary ---
[place] [address] Care Team Providers Care Case Finisher Name Role Phone Andrew Siu DNP Primary Care Provider +1- [phone] Encounter Details Date Type Department Care Team (Latest Contact Info) Description 08/16/2023 Travel Social History Tobacco Use Types Packs/Day [...] AM EST Hospital Encounter Non-Invasive [place] [address] Arrived documented as of this encounter Visit Diagnoses Not on filedocumented in this encounter Care Teams Case Finisher Relationship Specialty Start Date End Date Andrew Siu DNP [address] [place] [address] PCP - General Family Medicine 08/08/22 documented as of this encounter
--- OUTSIDE RECORDS SUMMARY | 2023-12-11 18:42 | XMS_ITS | Encounter Summary ---
[place] [address] Care Team Providers Care Devulcanizer Loader Name Role Phone Andrew Siu DNP Primary Care Provider [phone]- [phone] Encounter Details Date Type Department Care Team (Latest Contact Info) Description 05/03/2023 10:30 AM EST Office Visit Cardiology at [address] [phone] Alison Moses RN Biventricular implantable cardioverter-defibrill ator in situ- [facility] Social History Tobacco Use Types Packs/Day Years Used Date Smoking Tobacco: Former Cigarettes Q uit: 01/12/1996 Smokeless Tobacco: Never Comments:stopped 15 years Alcohol Use Standard Drinks/Week Comments Yes 1 (1 standard drink = 0.6 oz pur e alcohol) 1 drink a day [facility] Inpatient Questions Answer Date Recorded [...] Reading Time Taken Comments Blood Pressure 122/77 05/03/2023 10:25 AM EST Pulse 117 05/03/2023 10:25 AM EST Temperature - - Respiratory Rate - - Oxygen Saturation 97% 05/03/2023 10: 25 AM EST Inhaled Oxygen Concentration - - Weight 114.4 kg (252 lb 3.2 oz) 024 10:25 AM EST Height 198.1 cm (6' 6) 05/03/2023 10:2 5 AM EST Body Mass Index 29.14 05/03/2023 10:25 AM EST documented in this encounter Progress Notes * Alison Moses RN - 05/03/2023 10:30 AM EST Images from the original note were not included. Clinical Electrophysiology Device Service Note Jimmie Mccauley [id number] 05/03/2023 History: Jimmie Mccauley is a 77 y.o. man with a history of complete heart block s/p SJM dual-chamber pacemaker in May 2012, non ischemic cardiomyopathy (most recent LVEF 55% TTE July 2022), LBBB, with an upgrade to a REFINERY OPERATOR VISBREAKING-D (new generator, capped RV pacing lead, new RV high voltage lead, new CS lead) in February 2013, and a generator replacement in March 2016, nonobstructive CAD, and HTN who mo st recently had a generator change on 02/17/23. He presents today in clinic for a device check after a remote download was read by Dr. Martinez question atrial lead capture and to discuss anticoagulation. Per previous notes: The atrial lead threshold has been known to be high for several years and therehas been no recent change. Chivo ESCALONA joined for the visit. Confirmed atrial capture with him. He spoke with patient about anticoagulation. Pt states he cannot take anticoagulation due to Eliquis causing blood in his urine. Chivo ESCALONA did talk with him about a watchman device. Pt is interested in pursing this. Will reach out to scheduling to have him come in and see Dr. Matthews to discuss this. Device Interrogation: Data Newly implanted pulse generator: e-Zassi [id number] #[id number] Implanted 02/17/23 in the left pectoralis fossa (Old) Ventricular electrode: [employer] Model# 7122Q-58 cm Serial #[id number] Implanted 02/18/2013 Bipolar, steroid-tipped, active-fixation DF-4 lead Access: Axillary vein Location: Right ventricular apical septum R wave, PSA: none mV Pacing threshold, ICD: 0.75 V at 0.4 ms Impedance, ICD: 390 ohms RV coil Impedance 68 ohms (old) Atrial electrode: [employer], Model # 5568-52 cm Serial # [id number] Implanted 06/14/2012 Bipolar, steroid-tipped, active-fixation IS-1 lead Access: Not known Location Right atrium anterolateral P wave, ICD: 2.1 mV Impedance: 390 ohms Pacing threshold, ICD: 1.0 V at 1.0 ms (known high threshold) (old) Coronary sinus electrode: [facility] [employer] 1458Q/86 Serial number [id number] Implanted 02/18/2013 Quadripolar passive active fixation lead Access: Subclavian vein Location: Coronary sinus, posterolateral vein R wave, PSA: N/A Pacing threshold, ICD: 1.0 V at 0.8 ms Impedance, device: 780 ohms Settings: Presenting EGMs: AP/BP Underlying Rhythm: nothing greater than 30 bpm Since April 04, 2023 Atrial Episodes: 27 episodes--some very short. Longest lasting 13 minutes 56 seconds Ventricular Episodes: none Atrial Pacin% BVentricular Pacin% HR Histogram: Battery and Leads Voltage: -V Status: 6.1-6.5yrs Magnet Rate:-- Charge Time: 9.6sec 02/17/23 Impedances (ohms) Sensing (mV) Thresholds HV RA RV LV RA RV LV RA RV LV 68 360 390 780 3.1 none --- 1.75V @ 1.0ms 1.00V @ 0.5ms 1.0V @ 0.8ms Wound assessment: well healed left chest - Programming changes - Follow up: RTC in 6 months, Remotely every 3 months. Provider: Alison Moses RN Attending: Dr. Martinez documented in this encounter Plan of Treatment Upcoming Encounters Date Type Department Care Team (Late st Contact Info) Description 02/26/2024 10:00 AM EST Hospital Encounter [place] [phone] Arrived documented as of this encounter Visit Diagnoses Diagnosis Biventricular implantable cardioverter-defibrillator in situ- [facility] documented in this encounter Care Teams Devulcanizer Loader Relationship Specialty Start Date End Date Andrew Siu, NAV [address] [place] [address] PCP - General Family Medicine 08/08/22 documented as of this encounter
--- OUTSIDE RECORDS SUMMARY | 2023-12-11 18:42 | XMS_ITS | Encounter Summary ---
[place] [address] Care Team Providers Care Joint Cleaning Machine Operator Name Role Phone Andrew Siu DNP Primary Care Provider [phone] Encounter Details Date Type Department Care Team (Latest Contact Info) Description 08/28/2023 Travel Social History Tobacco Use Types Packs/Day [...] AM EST Hospital Encounter Non-Invasive [place] [address] Arrived documented as of this encounter Visit Diagnoses Not on filedocumented in this encounter Care Teams Joint Cleaning Machine Operator Relationship Specialty Start Date End Date Andrew iSu DNP [address] [place] [address] PCP - General Family Medicine 08/08/22 documented as of this encounter
--- OUTSIDE RECORDS SUMMARY | 2023-12-11 18:42 | XMS_ITS | Encounter Summary ---
[place] [address] Care Team Providers Care Manager Therapy Name Role Phone Andrew Siu DNP Primary Care Provider +1- [phone] Encounter Details Date Type Department Care Team (Latest Contact Info) Description 03/03/2023 10:00 AM EST - 03/03/2023 11:59 PM [facility] Hospital Encounter Non[place] [address] Discharge Disposition: Home Social History Tobacco Use [...] Sig Dispensed Refills Start Date End Date metoprolol succinate XL (Toprol-XL) 50 mg ER [...] by mouth nightly. 30 tablet 0 01/11/2011 magnesium oxide (Mag-Ox) 400 mg (241.3 mg magnesium) Tablet Take 400 mg by mouth daily. 08/28/2023 docusate sodium (Colace) 100 mg capsule Take 100 mg by mouth nightly. 08/28/2023 documented as of this encounter Plan of Treatment Upcoming Encounters Date Type Department Care Team (Late st Contact Info) Description 02/26/2024 10:00 AM EST Hospital Encounter Non[place] [phone] Arrived documented as of this encounter Procedures Procedure Name Priority Date/Time Associated Diagnosis Comments PRO ICD INTERROGATION REMOTE UP TO 90 DAYS Routine 01/04/2023 8:53 AM EDT documented in this encounter Results * Cardiac Device Check - Remote (01/04/2023 8:53 AM EDT) Anatomical Region Laterality Modality Other 01/04/2023 8:53 AM EDT Choco Euceda MD IMPLANTABLE CARDIAC DEVICE documented in this encounter Visit Diagnoses Not on filedocumented in this encounter Care Teams Manager Therapy Relationship Specialty Start Date End Date Andrew Siu DNP [address] [place] [id number] PCP - General Family Medicine 08/08/22 documented as of this encounter
--- OUTSIDE RECORDS SUMMARY | 2023-12-11 18:42 | XMS_ITS | Encounter Summary ---
Author Organization [facility] [place] [address] Care Team Providers Care Disc Jockey Name Role Phone Andrew Siu DNP Primary Care Provider [phone] Encounter Details Date Type Department Care Team (Late st Contact Info) Description 07/12/2023 Orders Only Cardiology at [address] [phone] Sancho Biswas MD [facility] [place] [address] [place] [address] Social History Tobacco Use Types Packs/Day Years Used Date Smoking Tobacco: Former Cigarettes Q uit: 01/12/1996 Smokeless Tobacco: Never Comments:stopped 15 years Alcohol Use Standard Drinks/Week Comments Yes 1 (1 standard drink = 0.6 oz pur e alcohol) 1 drink a day IPV Inpatient Questions Answer Date Recorded Does [...] AM EST Hospital Encounter [place] [address] Arrived documented as of this encounter Visit Diagnoses Not on filedocumented in this encounter Care Teams Disc Jockey Relationship Specialty Start Date End Date Andrew Siu DNP [address] [place] [address] PCP - General Family Medicine 08/08/22 documented as of this encounter
--- OUTSIDE RECORDS SUMMARY | 2023-12-11 18:42 | XMS_ITS | Encounter Summary ---
[place] [address] Care Team Providers Care Termite Exterminator Name Role Phone Andrew Siu DNP Primary Care Provider [phone]- [phone] Encounter Details Date Type Department Care Team (Latest Contact Info) Description 05/03/2023 Travel Social History Tobacco Use Types Packs/Day [...] AM EST Hospital Encounter Non[place] [address] Arrived documented as of this encounter Visit Diagnoses Not on filedocumented in this encounter Care Teams Termite Exterminator Relationship Specialty Start Date End Date Andrew Siu DNP [address] [place] [address] PCP - General Family Medicine 08/08/22 documented as of this encounter
--- OUTSIDE RECORDS SUMMARY | 2023-12-11 18:42 | XMS_ITS | Encounter Summary ---
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 Name Role Phone Andrew Siu DNP Primary Care Provider [phone] Reason for Visit * Auth/Cert (Routine) Specialty Diagnoses / Procedures Referred By Contac t Referred To Contact Diagnoses End of battery life of cardiac resynchronization therapy defibrillator (LANDSCAPE NURSERYMAN-D) [Z45.02] Procedures PRO REMOVAL AND RPLMT PACING CARDIO-DEFIB PULSE GENERATOR MULT LEAD ELECTROPHYSIOLOGY PROCEDURE REMOVAL ICD GENERATOR W REPL ICD GEN; MULTI LEAD (WRVU 6.35) Choco Euceda MD [facility] [place] [place] [address] [facility] Referral ID Status Reason Start Date Expiration Date Visits Re quested Visits Authorized [id number] 1 1 Encounter Details Date Type Department Care Team (Latest Contact Info) Description 02/17/2023 12:07 PM EST - 02/17/2023 4:47 PM EST Hospital Encounter [place] [id number] Vincent Martinez MD [facility] [place] [address] End of battery life of cardiac resynchronization therapy defibrillator (LANDSCAPE NURSERYMAN-D) Discharge Disposition: Home Social History Tobacco Use [...] Sign Reading Time Taken Comments Blood Pressure 133/85 02/17/2023 4:24 PM EST Pulse 66 02/17/2023 4:24 PM EST Temperature 37 ??C (98.6 ??F) 02/17/2023 4:24 PM EST Respiratory Rate 20 02/17/2023 1:21 PM EST Oxygen Saturation 95% 02/17/2023 4:24 PM EST Inhaled Oxygen Concentration - - Weight 112.3 kg (247 lb 9.6 oz) 02/17/2023 1:21 PM EST Height 198.1 cm (6' 6) 02/17/2023 1:21 PM EST Body Mass Index 28.61 02/17/2023 1:21 PM EST documented in this encounter Discharge Summaries * Cesar Banuelos MD - 02/17/2023 1:28 PM EST Images from the original note were not included. Cardiac Electrophysiology Discharge Summary Patient Name: Jimmie Mccauley Patient Age: 77 y.o. 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 Discharge Diagnoses (Hospital Problems) and Secondary Diagnoses (Chronic Problems): There are no hospital problems to display for this patient. Active Non-Hospital Problems Diagnosis Biventricular implantable cardioverter-defibrillator in situ- [employer] Andrew Non-ischemic cardiomyopathy Heart failure chronic systolic dysfunction Pulmonary embolism LBBB (left bundle branch block) Complete heart block Pericarditis Alcohol use Hypertension ICD (implantable cardioverter-defibrillator) malfunction - [employer] Andrew 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? HX SUDDEN CARDIAC ARREST Operations/Major Procedures: Operations: Procedure(s): ELECTROPHYSIOLOGY PROCEDURE REMOVAL ICD GENERATOR W REPL ICD GEN; MULTI LEAD (WRVU 6.35) History of Presentation: Jimmie Mccauley is a 77 y.o. man with a history of complete heart block s/p SJM dual-chamber pacemaker in May 2012, non ischemic cardiomyopathy (most recent LVEF 55% TTE July 2022), LBBB, with an upgrade to a LANDSCAPE NURSERYMAN-D (new generator, capped RV pacing lead, new RV high voltage lead, new CS lead) in February 2013, and a generator replacement in March 2016, nonobstructive CAD, and HTN who presents for generator exchange. Device interrogation today reveals absence of perfusing underlying rhythm. The atrial lead threshold has been known to be high for several years and there has been no recent change. Hospital Course: See procedure note. Same day discharge. Vital Signs at Discharge: BP: 144/84, Heart Rate: 61, Temp: 36.2 ??C (97.2 ??F), Resp: 20, BMI (Calculated): 28.61 Height: 198.1 cm (6' 6) (02/17/23 1321) Weight: 112.3 kg (247 lb 9.6 oz) (02/17/23 1321) Admission Diagnoses: End of battery life of cardiac resynchronization therapy defibrillator (LANDSCAPE NURSERYMAN-D) [Z45.02] Discharge Diagnoses: End of battery life of cardiac resynchronization therapy defibrillator (LANDSCAPE NURSERYMAN-D) [Z45.02] Discharge Exam: No changes. Discharge to: home Updated Allergies/ADRs: Allergies Allergen Reactions Lasix [Furosemide] Rash Discharge Medications: Your Medications Continued medications, unchanged Dose Details amLODIPine 5 mg tablet Commonly known as: Norvasc Take 1 tablet by mouth daily. 5 mg Quantity: 90 tablet Refills: 3 gwgkecq-fvninslkncmfh-hraiwpao 250-250-65 mg Tablet Commonly known as: EXCEDRIN MIGRAINE Take 1 tablet by mouth every 6 hours as needed. 1 tablet Refills: 0 docusate sodium 100 mg capsule Commonly known as: Colace Take 100 mg by mouth daily. 100 mg Refills: 0 finasteride 5 mg tablet Commonly known as: Proscar Take 5 mg by mouth daily. 5 mg Refills: 0 gabapentin 300 mg [...] by mouth daily. 1 tablet Refills: 0 * pravastatin 10 mg tablet Commonly known as: Pravachol Take 10 mg by mouth daily. 10 mg Refills: 0 * pravastatin 20 mg tablet Commonly known as: Pravachol Refills: 0 sildenafiL 100 mg tablet Commonly known as: Viagra Take 1 tablet by mouth once as needed. 100 mg Quantity: 10 tablet Refills: 0 zolpidem 10 mg tablet Commonly known as: Ambien Take 1 tablet by mouth nightly. 10 mg Quantity: 30 tablet Refills: 0 * This list has 2 medication(s) that are the same as other medications prescribed for you. Read thedirections carefully, and ask your doctor or other care provider to review them with you. Instructions Given to Patient at Discharge: Patient Instructions FINAL ICD/PACEMAKER RECOMMENDATIONS: 1. Standard post implant discharge instructions (see below): 2. Medications as listed above. You may use ice packs over the incision. Make sure to use a clothing trades workers (such as a towel) in between the ice pack and the bare skin and that it stays DRY. 3. Follow up in pacemaker clinic in 10 days for a wound check and device check. DEVICE CLINIC 1. You will be scheduled for a ~10 day wound check in the Device Clinic for: ?? Incision check ?? Device interrogation ?? Review of remote follow up and set up of home monitor 2. Your device will be checked every 3 months (either in clinic or by remote). 3. Prior to discharge, you will be given a home monitor so that your device can send clinical data to the device clinic nurses. If you are unable to set this up at home prior to your wound check, we will review this at the time of your appointment NOTE: The device data we review from your home monitor is comparable to an in- office appointment. Therefore, your insurance company will be billed for review of your data. Depending on your coverage,you may be responsible for a portion of his charge. We recommend that you contact your insurance carrier for more details about your particular coverage. WOUND CARE FOR YOUR INCISION: Your wound will usually heal in 7-10 days. Your wound may be tender, it may appear slightly red andbumpy and there may be dry, crusty scabbing. These are all normal. How to Care for your Incision: - Either you or someone with you needs to look at the wound every day. - Report any signs of infection immediately: Drainage Swelling Warmth Increased pain Fevers/chills - Call if you are concerned about infection or the edges of the wound separate - A needle should not be put into the wound area because this can damage the device. You may need to remind your healthcare provider of this concern - There are sutures inside the incision that will dissolve on their own - Do not scratch or rub the wound - Do not apply creams, lotions, or ointments to the incision until is completely healed. - You may cover the wound with gauze if it rubs on clothing and causes discomfort - Protect your wound from injury until the skin has had sufficient time to heal - Do not shower for 48 hours after implant - While in the shower, turn your back to the water nozzle so you avoid direct water pressure on thewound. Continue this for 7-10 days. - After 48 hours, you may wash the wound gently with soap and water (unless there is DermaBond on the incision - see below) - Do not submerge the incision (bathtubs, hot tubs, or swimming) for at least two weeks Your incision has been covered with a Mepilex dressing. - This dressing will stay on for 2-7 days - If the edges pull up substantially or fluid gets underneath the Mepilex dressing, remove it sooner - Once removed, you may notice some grayish discoloration. This is normal. Your incision has been closed with: SteriStrips - These are thin adhesive strips placed over your incision to help it heal. - Leave them in place until they fall off (approximately 10-14 days) - Do not scratch, rub, or pick at them. This may pull at your incision before it is completely healed, which can increase the risk of infection. CALL IMMEDIATELY: If you develop chest pain, shortness of breath, bleeding, discharge from the incision, opening of the incision and/or fever/temperature >100 degrees F. If you have any questions or concerns about this product, please call the office at [phone]. documented in this encounter Discharge Instructions * Patient Instructions* Cesar Banuelos MD - 02/17/2023 1:26 PM EST FINAL ICD/PACEMAKER RECOMMENDATIONS: 1. Standard post implant discharge instructions (see below): 2. Medications as listed above. You may use ice packs over the incision. Make sure to use a clothing trades workers (such as a towel) in between the ice pack and the bare skin and that it stays DRY. 3. Follow up in pacemaker clinic in 10 days for a wound check and device check. DEVICE CLINIC 1. You will be scheduled for a ~10 day wound check in the Device Clinic for: ?? Incision check ?? Device interrogation ?? Review of remote follow up and set up of home monitor 2. Your device will be checked every 3 months (either in clinic or by remote). 3. Prior to discharge, you will be given a home monitor so that your device can send clinical data to the device clinic nurses. If you are unable to set this up at home prior to your wound check, we will review this at the time of your appointment NOTE: The device data we review from your home monitor is comparable to an in- office appointment. Therefore, your insurance company will be billed for review of your data. Depending on your coverage,you may be responsible for a portion of his charge. We recommend that you contact your insurance carrier for more details about your particular coverage. WOUND CARE FOR YOUR INCISION: Your wound will usually heal in 7-10 days. Your wound may be tender, it may appear slightly red andbumpy and there may be dry, crusty scabbing. These are all normal. How to Care for your Incision: - Either you or someone with you needs to look at the wound every day. - Report any signs of infection immediately: Drainage Swelling Warmth Increased pain Fevers/chills - Call if you are concerned about infection or the edges of the wound separate - A needle should not be put into the wound area because this can damage the device. You may need to remind your healthcare provider of this concern - There are sutures inside the incision that will dissolve on their own - Do not scratch or rub the wound - Do not apply creams, lotions, or ointments to the incision until is completely healed. - You may cover the wound with gauze if it rubs on clothing and causes discomfort - Protect your wound from injury until the skin has had sufficient time to heal - Do not shower for 48 hours after implant - While in the shower, turn your back to the water nozzle so you avoid direct water pressure on thewound. Continue this for 7-10 days. - After 48 hours, you may wash the wound gently with soap and water (unless there is DermaBond on the incision - see below) - Do not submerge the incision (bathtubs, hot tubs, or swimming) for at least two weeks Your incision has been covered with a Mepilex dressing. - This dressing will stay on for 2-7 days - If the edges pull up substantially or fluid gets underneath the Mepilex dressing, remove it sooner - Once removed, you may notice some grayish discoloration. This is normal. Your incision has been closed with: SteriStrips - These are thin adhesive strips placed over your incision to help it heal. - Leave them in place until they fall off (approximately 10-14 days) - Do not scratch, rub, or pick at them. This may pull at your incision before it is completely healed, which can increase the risk of infection. CALL IMMEDIATELY: If you develop chest pain, shortness of breath, bleeding, discharge from the incision, opening of the incision and/or fever/temperature >100 degrees F. If you have any questions or concerns about this product, please call the office at [phone]. documented in this encounter Medications at Time [...] as of this encounter H&P Notes * Vincent Martinez MD - 02/17/2023 1:18 PM EST EP PRE-PROCEDURE H&P Referring Provider: Lauren Starks MD Attending Provider: Vincent Martinez MD Planned Procedure: Generator exchange Background and rationale for the procedure: Jimmie Mccauley is a 77 y.o. man with a history of complete heart block s/p SJM dual-chamber pacemaker in May 2012, non ischemic cardiomyopathy (most recent LVEF 55% TTE July 2022), LBBB, with an upgrade to a LANDSCAPE NURSERYMAN-D (new generator, capped RV pacing lead, new RV high voltage lead, new CS lead) in February 2013, and a generator replacement in March 2016, nonobstructive CAD, and HTN who presents for generator exchange. Device interrogation today reveals absence of perfusing underlying rhythm. The atrial lead threshold has been known to be high for several years and there has been no recent change. Anesthesia: Moderate conscious sedation will be used. Mallampati Class II ASA Class II Anticoagulation status: No chronic anticoagulation on board. Lab Results Component Value Date PT 13.6 03/25/2016 Infection risk & Prophylaxis: No new cough, no fevers, no chills. Plan to give Cefazolin prior to procedure. Allergies Allergen Reactions Lasix [Furosemide] Rash Post-op Plan: Discharge home Interval history: *No new or concerning events or symptoms. Physical Exam: No data found. Well appearing with no acute symptoms Normal jugular venous pulse Moist mucosae without lesions Regular S1/S2 with no murmur Previously placed device well seated in left subclavian fossa Lungs are clear throughout Palpable femoral pulses bilaterally No peripheral edema, no open wounds or ulcers No current facility-administered medications on file prior to encounter. Current Outpatient Medications on File Prior to Encounter Medication Sig Dispense Refill pravastatin (Pravachol) 20 mg tablet magnesium oxide (Mag-Ox) 400 mg (241.3 mg magnesium) Tablet Take 400 mg by mouth daily. gabapentin (Neurontin) 300 mg capsule Take 300 mg by mouth nightly. Indications: neuropathic pain finasteride (Proscar) 5 mg tablet Take 5 mg by mouth daily. docusate sodium (Colace) 100 mg capsule Take 100 mg by mouth daily. losartan (COZAAR) 100 mg Tablet Take 1 tablet by mouth daily. 90 tablet 0 amLODIPine (Norvasc) 5 mg Tablet Take 1 tablet by mouth daily. 90 tablet 3 multivitamin (THERAGRAN) Tablet Take 1 tablet by mouth daily. pravastatin (PRAVACHOL) 10 mg Tablet Take 10 mg by mouth daily. lmigicl-pmqusuprfngmr-zeypqqbf (EXCEDRIN MIGRAINE) 250-250-65 mg per tablet Take [...] tablet Take 1 tablet by mouth nightly. 30 tablet 0 Lab Results Component Value Date WBC 9.2 02/08/2023 HGB 16.8 (H) 02/08/2023 HCT 49.9 (H) 02/08/2023 MCV 87.7 02/08/2023 PLATELET 196 02/08/2023 Lab Results Component Value Date NA 141 02/08/2023 K 4.6 02/08/2023 CL 104 02/08/2023 CO2 30 02/08/2023 BUN 18 02/08/2023 CREATININE 0.91 02/08/2023 GLUCOSE 86 02/08/2023 GLUCFASTING 100 (H) 03/25/2016 CALCIUM 9.7 02/08/2023 ESTGFR 87 02/08/2023 Lab Results Component Value Date MAGNESIUM 0.88 02/08/2023 I met with the patient today and independently confirmed the history, physical exam, and testing. Ipersonally reviewed and interpreted the available ECGs and additional cardiac testing (echo), as well as the labs. I agree with the detailed management plan as written in the fellow note today. I discussed this plan with the patient, who is also in agreement. Dr. Vincent Martinez, electrophysiology attending ([id number]) documented in this encounter Plan of Treatment Upcoming Encounters Date Type Department Care Team (Late st Contact Info) Description 02/26/2024 10:00 AM EST Hospital Encounter Non-Invasive [place] [address] Arrived documented as of this encounter Procedures Procedure Name Priority Date/Time Associated Diagnosis Comments ELECTROPHYSIOLOGY PROCEDURE Routine 02/17/2023 2:23 PM EST End of battery life of cardiac resynchronization therapy defibrillator (LANDSCAPE NURSERYMAN-D) REMOVAL ICD GENERATOR W REPL ICD GEN; MULTI LEAD Routine 01/04/2023 10:40 AM EDT End of battery life of cardiac resynchronization therapy defibrillator (LANDSCAPE NURSERYMAN-D) documented in this encounter Results * ELECTROPHYSIOLOGY PROCEDURE (02/17/2023 2:23 PM EST) Anatomical Region Laterality Modality Other Narrative 02/20/2023 2:12 PM EST LANDSCAPE NURSERYMAN-D Generator Change Patient: Jimmie Mccauley History: Mr. Mccauley is a 77 year old man with a history of complete AV block s/p dual chamber pacemaker implantation, nonischemic cardiomyopathy s/p upgrade to a biventricular ICD with abandonment of the RV pacing lead, who presents with ICD generator battery depletion. Physical exam reveals at the mediosuperior border of the generator, thin overlying skin that is fairly taut. The generator is not fixed to the skin and there is no evidence of active erosion of the skin or infection. Operators: ??Vincent Martinez MD Fellow: Cesar Banuelos MD Procedure Date: 02/17/23 Anesthesia: Monitored sedation by EP staffing consultant, time 14:41-15:48 (67 minutes) Procedure: ??The patient was brought to the Electrophysiology Lab in the fasting state and continuous electrocardiographic monitoring was instituted. ??Moderate sedation was performed with incremental doses of midazolam and fentanyl. IV antibiotics were given. The left subclavicular fossa was prepped and draped in the usual sterile fashion and a 2:3 mixture of 2% lidocaine and 0.5% bupivicaine was instilled for local anesthesia and postoperative analgesia. An incision was made over the old scar, and the dissection was carried down to the level of the old pocket using sharp and blunt dissection using electrocautery, carefully avoiding the old leads. The old pulse generator was carefully dissected out, and the atrial and left ventricular electrodes were disconnected. ??The previously implanted electrodes were intact where visible, however the left ventricular lead and the right ventricular leads were free in the pocket with the previously placed silk tie in place over the suture sleeve but not attached to the tissue. The atrial electrode suture sleeve was not seen. The left ventricular electrode was now attached to the new pulse generator while the right ventricular electrode was disconnected from the old generator, and provided adequate pacing. ??In order to avoid skin erosion over the new generator, the pocket was extended lateral to the previous pocket using blunt dissection and careful electrocautery where necessary. We then secured the left and right ventricular leads to the floor of the fibrous capsule with two 0 silk ties each. The new device was seated well in the new pocket and did not appear to cause any steep elevations of the skin. A single 2.0 Vicryl stitch was used to close off the medial aspect of the old pocket in order to prevent device migration. The pocket was copiously irrigated with antibiotic impregnated saline. The leads were attached to a new pulse generator, which was placed in the newly fashioned pocket. An antibiotic impregnated TYRX mesh was also implanted in the pocket. Remote interrogation confirmed favorable electrical parameters on both leads. The wound was closed with three layers of absorbable sutures. Steri-strips were applied to the incision and covered with Mepilex. Final Parameters: Newly implanted pulse generator: Medaxion [id number] #[id number] Implanted 02/17/23 in the left pectoralis fossa (Old) Ventricular electrode: ?? [employer] Model# 7122Q-58 cm Serial #[id number] Implanted 02/18/2013 Bipolar, steroid-tipped, active-fixation DF-4 lead Access: ?Axillary vein Location: ?? Right ventricular apical septum R wave, PSA: ?none mV Pacing threshold, ICD: 0.75 V at 0.4 ms Impedance, ICD: ??390 ohms RV coil Impedance ??68 ohms (old) Atrial electrode: ?? Medtronic, Model # 5568-52 cm Serial # [id number] Implanted 06/14/2012 Bipolar, steroid-tipped, active-fixation IS-1 lead Access: ?Not known Location ?Right atrium anterolateral P wave, ICD: ?? 2.1 mV Impedance: 390 ohms Pacing threshold, ICD: 1.0 V at 1.0 ms (known high threshold) (old) Coronary sinus electrode: [employer] Andrew [employer] 1458Q/86 Serial number [id number] Implanted 02/18/2013 Quadripolar passive active fixation lead Access: ?Subclavian vein Location: ?? Coronary sinus, posterolateral vein R wave, PSA: ?? N/A Pacing threshold, ICD: 1.0 V at 0.8 ms Impedance, device: ??780 ohms Final device settings: Mode: DDDR Lower rate limit: 60 Upper tracking rate: ??130 Antibiotic: Cefazolin 2g IV Fluoroscopy time: 0 Estimated blood loss: Minimal The patient tolerated the procedure well. Conclusions: Successful pulse generator change for a Szymanski biventricular ICD. A [place] generator was used rather than a Quadra Assura, as the [place] is thinner and should exert less pressure on the overlying skin. Additionally, the pocket was moved more lateral in order to reduce pressure on the skin at the medio-superior edge of the generator. Follow up in EP clinic in 2 weeks. Procedures performed: LANDSCAPE NURSERYMAN-D generator change (cpt 95851-O1) Dr. Martinez was present and participated in all leal portions. Vincent Martinez MD [facility] Cardiac Electrophysiology 02/20/2023 2:11 PM Vincent Martinez MD EP PROCEDURE ORDERAB LES documented in this encounter Visit Diagnoses Diagnosis End of battery life of cardiac resynchronization therapy defibrillator (LANDSCAPE NURSERYMAN-D) End of battery life of cardiac resynchronization therapy defibrillator (LANDSCAPE NURSERYMAN-D) documented in this encounter Administered Medications Inactive Administered Medications - up to 3 most recent administrations Medication Order MAR Action Action Date Dose Rate Site BUpivacaine (pf) (Marcaine) (5 mg/mL) 0.5% injection 150 mg 150 mg (30 mL), Subcutaneous, ONCE, 1 dose, On Mon02/17/23 at 1330, EP (Intra-Procedure), Routine Given 02/17/2023 2:33 PM EST 150 mg ceFAZolin (Ancef) 2 g vial attach to sodium chloride 0.9% 100 mL Mini-Bag Plus 2 g, Intravenous, ONCE, 1 dose, On Mon02/17/23 at 1330, Administer over 30 Minutes, For use in the electrophysiology lab (EP lab) only with direct provider supervision and verbal order., EP (Intra-Procedure), Indication for (Active or Suspected): Prophylaxis New Bag 02/17/2023 2:09 PM EST 2 g 200 mL/hr fentaNYL (PF) (50 mcg/mL) injection 25-50 mcg 25-50 mcg, Intravenous, EVERY 5 MIN PRN, Starting on Mon02/17/23 at 1311, Until Mon02/17/23 at 1646, Pain, As needed to induce or maintain moderate sedation per [facility] Moderate Sedation Policy for the duration of the EP procedure., As needed to induce or maintain moderate sedation per [facility] Moderate Sedation Policy for the duration of the EP procedure. For use in the electrophysiology lab (EP lab) only for procedural sedation with direct provider supervision and verbal order. RASS goal (-)2 to (-)3. Start at 25 mcg, Dose not to exceed 50 mcg/dose, 250 mcg/hr, or 20 mcg/kg per case., EP (Intra-Procedure), Routine Given 02/17/2023 3:14 PM EST 25 mcg Given 02/17/2023 2:44 PM EST 25 mcg Given 02/17/2023 2:33 PM EST 25 mcg lidocaine (Xylocaine) (20 mg/mL) 2% injection 400 mg 400 mg (20 mL), Subcutaneous, ONCE, 1 dose, On Mon02/17/23 at 1330, EP (Intra-Procedure), Routine Given 02/17/2023 2:33 PM EST 400 mg midazolam (pf) (Versed) (1 mg/mL) injection 0.5-1 mg 0.5-1 mg, Intravenous, EVERY 5 MIN PRN, Starting on Mon02/17/23 at 1311, Until Mon02/17/23 at 1646, Anxiety, As needed to induce or maintain moderate sedation per [facility] Moderate Sedation Policy for the duration of the EP procedure., As needed to induce or maintain moderate sedation per [facility] Moderate Sedation Policy for the duration of the EP procedure. For use in the electrophysiology lab (EP lab) only for procedural sedation with direct provider supervision and verbal order. RASS goal (-)2 to (-)3. Dose not to exceed 1 mg per dose, 5 mg/hour, or 0.2 mg/kg per case., EP (Intra-Procedure), Routine Given 02/17/2023 3:14 PM EST 0.5 mg Given 02/17/2023 2:15 PM EST 1 mg vancomycin (Vancocin) injection 1,000 mg 1,000 mg (1 g), Topical (Top), ONCE, 1 dose, On Mon02/17/23 at 1330, Warning Vesicant/Irritant Medication , EP (Intra-Procedure), Routine, Indication for (Active or Suspected): Prophylaxis Given 02/17/2023 3:17 PM EST 1,000 mg documented in this encounter Active and Recently Administered Medications Times are shown in EST. Scheduled Medication Order 02/15/2023 02/16/2023 02/17/2023 BUpivacaine (pf) (Marcaine) (5 mg/mL) 0.5% injection 150 mg (COMPLETED) 150 mg (30 mL), Subcutaneous, ONCE, 1 dose, On Mon02/17/23 at 1330, EP (Intra-Procedure), Routine 1433 (Given - Provid er: Raquel Mancilla RN) ceFAZolin (Ancef) 2 g vial attach to sodium chloride 0.9% 100 mL Mini-Bag Plus (COMPLETED) 2 g, Intravenous, ONCE, 1 dose, On Mon02/17/23 at 1330, Administer over 30 Minutes, For use in the electrophysiology lab (EP lab) only with direct provider supervision and verbal order., EP (Intra-Procedure), Indication for (Active or Suspected): Prophylaxis 1409 (New Bag - Prov ider: Raquel Mancilla RN)1439 (Due: Stopped - Provider: Raquel Mancilla RN) lidocaine (Xylocaine) (20 mg/mL) 2% injection 400 mg (COMPLETED) 400 mg (20 mL), Subcutaneous, ONCE, 1 dose, On Mon02/17/23 at 1330, EP (Intra-Procedure), Routine 1433 (Given - Provid er: Raquel Mancilla RN) vancomycin (Vancocin) injection 1,000 mg (COMPLETED) 1,000 mg (1 g), Topical (Top), ONCE, 1 dose, On Mon02/17/23 at 1330, Warning Vesicant/Irritant Medication , EP (Intra-Procedure), Routine, Indication for (Active or Suspected): Prophylaxis 1517 (Given - Provid er: Raquel Mancilla RN) PRN Medication Order 02/15/2023 02/16/2023 02/17/2023 fentaNYL (PF) (50 mcg/mL) injection 25-50 mcg (CANCELED) 25-50 mcg, Intravenous, EVERY 5 MIN PRN, Starting on Mon02/17/23 at 1311, Until Mon02/17/23 at 1646, Pain, As needed to induce or maintain moderate sedation per [facility] Moderate Sedation Policy for the duration of the EP procedure., As needed to induce or maintain moderate sedation per [facility] Moderate Sedation Policy for the duration of the EP procedure. For use in the electrophysiology lab (EP lab) only for procedural sedation with direct provider supervision and verbal order. RASS goal (-)2 to (-)3. Start at 25 mcg, Dose not to exceed 50 mcg/dose, 250 mcg/hr, or 20 mcg/kg per case., EP (Intra-Procedure), Routine 1415 (Given - Provid er: Raquel Mancilla RN)1433 (Given - Provider: Raquel Mancilla RN)1444 (Given - Provider: Raquel Mancilla RN)1514 (Given - Provider: Raquel Mancilla RN) midazolam (pf) (Versed) (1 mg/mL) injection 0.5-1 mg (CANCELED) 0.5-1 mg, Intravenous, EVERY 5 MIN PRN, Starting on Mon02/17/23 at 1311, Until Mon02/17/23 at 1646, Anxiety, As needed to induce or maintain moderate sedation per [facility] Moderate Sedation Policy for the duration of the EP procedure., As needed to induce or maintain moderate sedation per [facility] Moderate Sedation Policy for the duration of the EP procedure. For use in the electrophysiology lab (EP lab) only for procedural sedation with direct provider supervision and verbal order. RASS goal (-)2 to (-)3. Dose not to exceed 1 mg per dose, 5 mg/hour, or 0.2 mg/kg per case., EP (Intra-Procedure), Routine 1415 (Given - Provid er: Raquel Mancilla RN)1514 (Given - Provider: Raquel C Durfey, RN) documented in this encounter Care Teams Pneumatic Tool Operator Relationship Specialty Start Date End Date Andrew Siu DNP [address] [place] [id number] PCP - General Family Medicine 08/08/22 documented as of this encounter
--- OUTSIDE RECORDS SUMMARY | 2023-12-11 18:42 | XMS_ITS | Encounter Summary ---
[place] [address] Care Team Providers Care Supervisor Shuttle Fitting Name Role Phone Andrew Siu DNP Primary Care Provider [phone] Encounter Details Date Type Department Care Team (Late st Contact Info) Description 02/24/2023 2:00 PM EST Office Visit Cardiology at [address] [address] Nirali Domingo, RN ICD (implantable cardioverter-defibril lator) in place [Z95.810] Social History Tobacco Use Types Packs/Day Years Used Date Smoking Tobacco: Former Cigarettes Q uit: 01/12/1996 Smokeless Tobacco: Never Comments:stopped 15 years Alcohol Use Standard Drinks/Week Comments Yes 1 (1 standard drink = 0.6 oz pur e alcohol) 1 drink a day [facility] Inpatient Questions Answer Date Recorded Does [...] Sign Reading Time Taken Comments Blood Pressure 153/82 02/24/2023 1:54 PM EST Pulse 66 02/24/2023 1:54 PM EST Temperature - - Respiratory Rate - - Oxygen Saturation 97% 02/24/2023 1:54 PM EST Inhaled Oxygen Concentration - - Weight 108.9 kg (240 lb) 02/24/2023 1:54 PM EST Height 198.1 cm (6' 6) 02/24/2023 1:54 PM EST Body Mass Index 27.73 02/24/2023 1:54 PM EST documented in this encounter Progress Notes * Nirali Domingo RN - 02/24/2023 2:00 PM EST Images from the original note were not included. Clinical Electrophysiology Device Service Note Jimmie Mccauley [id number] 02/24/2023 History: Jimmie Mccauley is a 77 y.o. man with a history of complete heart block s/p SJM dual-chamber pacemaker in May 2012, non ischemic cardiomyopathy (most recent LVEF 55% TTE July 2022), LBBB, with an upgrade to a WATCH LEADER-D (new generator, capped RV pacing lead, new RV high voltage lead, new CS lead) in February 2013, and a generator replacement in March 2016, nonobstructive CAD, and HTN who pr esents for generator exchange on 02/17/23. Device interrogation after generator change reveals absence of perfusing underlying rhythm. The atrial lead threshold has been known to be high for several years and there has been no recent change. Presents today for 10 day post gen change evaluation. Per Levels Atrial threshold decreased to 0.5 above threshold. Site healing well. Denies any issues. Confirmed that a remote reading was completed this morning. Device Interrogation: Data Newly implanted pulse generator: [employer] [id number] #[id number] Implanted 02/17/23 in the left pectoralis fossa (Old) Ventricular electrode: [employer] Model# 7122Q-58 cm Serial #[id number] Implanted 02/18/2013 Bipolar, steroid-tipped, active-fixation DF-4 lead Access: Axillary vein Location: Right ventricular apical septum R wave, PSA: none mV Pacing threshold, ICD: 0.75 V at 0.4 ms Impedance, ICD: 390 ohms RV coil Impedance 68 ohms (old) Atrial electrode: [employer], Model # 5568-52 cm Serial # [id number] Implanted 06/14/2012 Bipolar, steroid-tipped, active-fixation IS-1 lead Access: Not known Location Right atrium anterolateral P wave, ICD: 2.1 mV Impedance: 390 ohms Pacing threshold, ICD: 1.0 V at 1.0 ms (known high threshold) (old) Coronary sinus electrode: [employer] 1458Q/86 Serial number [id number] Implanted 02/18/2013 Quadripolar passive active fixation lead Access: Subclavian vein Location: Coronary sinus, posterolateral vein R wave, PSA: N/A Pacing threshold, ICD: 1.0 V at 0.8 ms Impedance, device: 780 ohms Alerts none Diagnostics Pacing Mode: DDDR @ 60bpm Presenting EGMs: APBP Underlying Rhythm: SB Atrial Episodes: none Ventricular Episodes: none Atrial Pacin% BVentricular Pacin% HR Histogram: Battery and Leads Voltage: -V Status: 4.5yrs Magnet Rate: 100bpm Charge Time: 9.6sec Impedances (ohms) Sensing (mV) Thresholds HV RA RV LV RA RV LV RA RV LV 60 390 390 750 2.7 11.5 --- 1.5V @ 1.0ms 0.75V @ 0.5ms 1.5V @ 0.8ms Comments: - Pocket incision is well healing, no signs of infection, steri strips still present - Device is functioning appropriately - Programming changes None, iterative changes - Follow up: in clinic in 12 months, continuing with remote monitoring JIM Mandujano Dr. 02/24/2023 documented in this encounter Plan of Treatment Upcoming Encounters Date Type Department Care Team (Late st Contact Info) Description 02/26/2024 10:00 AM EST Hospital Encounter Non-[place] [address] Arrived documented as of this encounter Visit Diagnoses Diagnosis ICD (implantable cardioverter-defibrillator) in place [Z95.810] documented in this encounter Care Teams Supervisor Shuttle Fitting Relationship Specialty Start Date End Date Andrew Siu DNP [address] [place] [id number] PCP - General Family Medicine 08/08/22 documented as of this encounter
--- OUTSIDE RECORDS SUMMARY | 2023-12-11 18:42 | XMS_ITS | Encounter Summary ---
Author Organization [facility] [place] [address] Care Team Providers Care Athletic Instructor Name Role Phone Andrew Siu DNP Primary Care Provider [phone] Reason for Visit * Auth/Cert (Routine) Specialty Diagnoses / Procedures Referred By Contac t Referred To Contact Diagnoses End of battery life of cardiac resynchronization therapy defibrillator (COMMERCIAL ARTIST-D) [Z45.02] Procedures PRO REMOVAL AND RPLMT PACING CARDIO-DEFIB PULSE GENERATOR MULT LEAD ELECTROPHYSIOLOGY PROCEDURE REMOVAL ICD GENERATOR W REPL ICD GEN; MULTI LEAD (WRVU 6.35) Choco Euceda MD [facility] [place] [place] [address] [facility] Referral ID Status Reason Start Date Expiration Date Visits Re quested Visits Authorized [id number] 1 1 Encounter Details Date Type Department Care Team (Late st Contact Info) Description 02/17/2023 1:30 PM EST - 02/17/2023 2:58 PM EST [place] [address] Vincent Martinez MD [facility] [place] [place] [address] ELECTROPHYSIOLOGY PROCEDURE Social History Tobacco Use Types Packs/Day Years [...] Sign Reading Time Taken Comments Blood Pressure 136/85 02/17/2023 2:55 PM EST Pulse 80 02/17/2023 2:55 PM EST Temperature 36.2 ??C (97.2 ??F) 02/17/2023 1:21 PM ES T Respiratory Rate 20 02/17/2023 1:21 PM EST Oxygen Saturation 95% 02/17/2023 2:55 PM EST Inhaled Oxygen Concentration - - [...] Jimmie Mccauley Patient Age: 77 y.o. Language: Albanian Race: White Ethnicity: Not nor Admit date: 02/17/2023 Discharge date and time: 02/17/23 Attending Physician: Vincent Martinez MD Discharge Physician: Vincent Martinez MD Follow-up Recommendations for Providers: - s/p uncomplicated COMMERCIAL ARTIST-D generator exchange - No changes to medications - No changes to device programming - See below for wound care instructions and follow up Inpatient Provider Contact Information: Cardiac Electrophysiology - Weekends and holidays call [phone]; ask for research support specialist audio production manager. Discharge Diagnoses (Hospital Problems) and Secondary Diagnoses [...] 2022), LBBB, with an upgrade to a COMMERCIAL ARTIST-D (new generator, capped RV pacing lead, new [...] battery life of cardiac resynchronization therapy defibrillator (COMMERCIAL ARTIST-D) [Z45.02] Discharge Diagnoses: End of battery life of cardiac resynchronization therapy defibrillator (COMMERCIAL ARTIST-D) [Z45.02] Discharge Exam: No changes. Discharge to: home Updated Allergies/ADRs: Allergies Allergen Reactions Lasix [Furosemide] Rash Discharge Medications: Your Medications Continued medications, unchanged Dose Details amLODIPine 5 mg tablet Commonly known as: Norvasc Take 1 tablet by mouth daily. 5 mg Quantity: 90 tablet Refills: 3 zqikemx-cqpfnwvhkqzfa-wecnlwnb 250-250-65 mg Tablet Commonly known as: EXCEDRIN [...] the incision. Make sure to use a clothes ironer (such as a towel) in between the [...] this product, please call the office at [phone]. documented in this encounter Discharge Instructions * Patient Instructions* Cesar Banuelos MD - 02/17/2023 1:26 PM EST FINAL ICD/PACEMAKER RECOMMENDATIONS: 1. Standard post implant discharge instructions (see below): 2. Medications as listed above. You may use ice packs over the incision. Make sure to use a clothes ironer (such as a towel) in between the [...] this product, please call the office at [phone]. documented in this encounter Medications at Time [...] 2022), LBBB, with an upgrade to a COMMERCIAL ARTIST-D (new generator, capped RV pacing lead, new [...] Tablet Take 10 mg by mouth daily. eupxvcl-uwqlgpgmnmmwd-hmvchwfh (EXCEDRIN MIGRAINE) 250-250-65 mg per tablet Take [...] in agreement. Dr. Vincent Martinez, electrophysiology attending ([id number]) documented in this encounter Plan of Treatment Upcoming Encounters Date Type Department Care Team (Late st Contact Info) Description 02/26/2024 10:00 AM EST Hospital Encounter [place] [address] Arrived documented as of this encounter Procedures Procedure Name Priority Date/Time Associated Diagnosis Comments ELECTROPHYSIOLOGY PROCEDURE Routine 02/17/2023 2:23 PM EST End of battery life of cardiac resynchronization therapy defibrillator (COMMERCIAL ARTIST-D) REMOVAL ICD GENERATOR W REPL ICD GEN; MULTI LEAD Routine 01/04/2023 10:40 AM EDT End of battery life of cardiac resynchronization therapy defibrillator (COMMERCIAL ARTIST-D) documented in this encounter Results * ELECTROPHYSIOLOGY PROCEDURE (02/17/2023 2:23 PM EST) Anatomical Region Laterality Modality Other Narrative 02/20/2023 2:12 PM EST COMMERCIAL ARTIST-D Generator Change Patient: Jimmie Mccauley History: Mr. [...] Date: 02/17/23 Anesthesia: Monitored sedation by EP clinical staff pharmacist, time 14:41-15:48 (67 minutes) Procedure: ??The patient [...] Mepilex. Final Parameters: Newly implanted pulse generator: [employer] [id number] #[id number] Implanted 02/17/23 in the left pectoralis fossa (Old) Ventricular electrode: ?? [employer] Model# 7122Q-58 cm Serial #[id number] Implanted 02/18/2013 Bipolar, steroid-tipped, active-fixation DF-4 lead Access: ?Axillary vein Location: ?? Right ventricular apical septum R wave, PSA: ?none mV Pacing threshold, ICD: 0.75 V at 0.4 ms Impedance, ICD: ??390 ohms RV coil Impedance ??68 ohms (old) Atrial electrode: ?? [employer], Model # 5568-52 cm Serial # [id number] Implanted 06/14/2012 Bipolar, steroid-tipped, active-fixation IS-1 lead Access: ?Not known Location ?Right atrium anterolateral P wave, ICD: ?? 2.1 mV Impedance: 390 ohms Pacing threshold, ICD: 1.0 V at 1.0 ms (known high threshold) (old) Coronary sinus electrode: [employer] 1458Q/86 Serial number [id number] Implanted 02/18/2013 Quadripolar passive active fixation lead [...] change for a Szymanski biventricular ICD. A Lemhi generator was used rather than a Quadra Assura, as the Lemhi is thinner and should exert less pressure on the overlying skin. Additionally, the pocket was moved more lateral in order to reduce pressure on the skin at the medio-superior edge of the generator. Follow up in EP clinic in 2 weeks. Procedures performed: COMMERCIAL ARTIST-D generator change (cpt 50224-C5) Dr. Martinez was present and participated in all leal portions. Vincent Martinez MD [facility] Cardiac Electrophysiology 02/20/2023 2:11 PM Vincent Matrinez MD EP PROCEDURE ORDERAB LES documented in this encounter Visit Diagnoses Diagnosis End of battery life of cardiac resynchronization therapy defibrillator (COMMERCIAL ARTIST-D) End of battery life of cardiac resynchronization therapy defibrillator (COMMERCIAL ARTIST-D) documented in this encounter Administered Medications Inactive [...] to induce or maintain moderate sedation per [facility] Moderate Sedation Policy for the duration of the EP procedure., As needed to induce or maintain moderate sedation per [facility] Moderate Sedation Policy for the duration of [...] to induce or maintain moderate sedation per [facility] Moderate Sedation Policy for the duration of the EP procedure., As needed to induce or maintain moderate sedation per [facility] Moderate Sedation Policy for the duration of [...] to induce or maintain moderate sedation per [facility] Moderate Sedation Policy for the duration of the EP procedure., As needed to induce or maintain moderate sedation per [facility] Moderate Sedation Policy for the duration of [...] to induce or maintain moderate sedation per [facility] Moderate Sedation Policy for the duration of the EP procedure., As needed to induce or maintain moderate sedation per [facility] Moderate Sedation Policy for the duration of [...] RN)1514 (Given - Provider: Raquel Mancilla RN) documented in this encounter Care Teams Athletic Instructor Relationship Specialty Start Date End Date Andrew Siu DNP [address] [place] [address] [place] [address] PCP - General Family Medicine 08/08/22 documented as of this encounter
--- OUTSIDE RECORDS SUMMARY | 2023-12-11 18:42 | XMS_ITS | Encounter Summary ---
[place] [address] Care Team Providers Care Volunteer Firefighter Name Role Phone Andrew Siu DNP Primary Care Provider [phone] Encounter Details Date Type Department Care Team (Latest Contact Info) Description 04/26/2023 Travel Social History Tobacco Use Types Packs/Day [...] AM EST Hospital Encounter Non[place] [address] Arrived documented as of this encounter Visit Diagnoses Not on filedocumented in this encounter Care Teams Volunteer Firefighter Relationship Specialty Start Date End Date Andrew Siu DNP [address] [place] [id number] PCP - General Family Medicine 08/08/22 documented as of this encounter
--- OUTSIDE RECORDS SUMMARY | 2023-12-11 18:42 | XMS_ITS | Encounter Summary ---
Author Organization [facility] Address [facility] [place] [address] Care Team Providers Care Correctional Sergeant Name Role Phone Andrew Siu DNP Primary Care Provider +1- [phone] Encounter Details Date Type Department Care Team (Late st Contact Info) Description 02/08/2023 11:20 AM EST Office Visit Cardiology at [address] [address] Lauren Starks MD [facility] [place] [address] Chronic systolic heart failure Social History Tobacco Use Types Packs/Day Years Used Date Smoking Tobacco: Former Cigarettes Q uit: 01/12/1996 Smokeless Tobacco: Never Comments:stopped 15 years Alcohol Use Standard Drinks/Week Comments Yes 0.8 (1 standard drink = 0.6 oz p ure alcohol) 1 drink a day [facility] Inpatient Questions Answer Date Recorded Does Anyone [...] Sign Reading Time Taken Comments Blood Pressure 132/74 02/08/2023 11:08 AM EST Pulse 66 02/08/2023 11:08 AM EST Temperature - - Respiratory Rate - - Oxygen Saturation 97% 02/08/2023 11:08 AM EST Inhaled Oxygen Concentration - - Weight 112.9 kg (249 lb) 02/08/2023 11:08 AM EST Height 198.1 cm (6' 6) 02/08/2023 11:08 AM EST Body Mass Index 28.77 02/08/2023 11:08 AM EST documented in this encounter Patient Instructions * Patient Instructions* Lauren Starks MD - 02/08/2023 11:20 AM EST Discontinue carvedilol. Start Metoprolol. Call us with any issues. We'll see you back in July with an echo. If you need to reach me, you can call my nurse line at [phone] Lauren Starks MD Advanced Cardiac Disease and Pulmonary Hypertension documented in this encounter Progress Notes * Lauren Starks MD - 02/08/2023 11:20 AM EST Images from the original note were not included. [facility] [place] [address] [address] CARDIOMYOPATHY/HEART FAILURE SERVICE OUTPATIENT CLINIC NOTE Jatinder Stevensnoe 02/08/2023 Primary Care Provider: Andrew Siu DNP Referring Provider: Andrew Siu HISTORY OF PRESENT ILLNESS: Jatinder Morrell is a 77 y.o. patient with history of pericarditis following PCM implant in 2012, complete heart block with CRTd upgrade in place, nonobstructive coronary artery disease, cardiomyopathy (recovered LV function) seen in routine follow up in the [facility] Heart Failure [facility]. Last seen by Angélica Grewal 07/2022. He continues to do well. He does wish his energy was better. He trialed noctural o2 and that didn'treally improve things. His sleep is largely well. He thinks overnight oximetry may have been a poortest and so he doesn't really think he needs this. Denies symptoms of volume overload: no orthopnea, PND, swelling. Patient Active Problem List Diagnosis Biventricular implantable cardioverter-defibrillator in situ- [facility] Andrew 02/19/2013 Cardiac Resynchronization Therapy ICD Upgrade (explant of pacemaker pulse generator), peripheral Subclavian Venography, Cinefluoroscopy, pacemaker pocket revision and defibrillation safety margin testing, under General anesthesia Indication: Cardiomopathy with congestive heart failure and ventricular dyssynchrony, ventricular pacing New Ventricular electrode: [employer] Model# 7122Q-58 cm Serial #[id number] Implanted 02/18/2013 Bipolar, steroid-tipped, active-fixation DF-4 lead Access: Axillary vein Location: Right ventricular apical septum (old) Atrial electrode: Medtronic, Model # 5568-52 cm Serial # [id number] Implanted 06/14/2012 Bipolar, steroid-tipped, active-fixation IS-1 lead Access: Not known Location Right atrium anterolateral Coronary sinus electrode: [employer] 1458Q/86 Serial number [id number] Implanted 02/18/2013 Quadripolar passive active fixation lead Access: Subclavian vein Location: Coronary sinus, posterolateral vein Pulse generator: [employer] [id number] Serial number [id number] Implanted 02/18/2013 CHAIR SPRINGER ICD Location: Subcutaneous Old ventricular lead : Medtronic 5075 Serial number [id number] (capped 02/18/2013) Old pulse generator: Medtronic ADDR01 Serial number [id number] (removed 02/18/2013) Detection and termination of ventricular tachyarrhythmias was performed with the ICD set to minimalsensitivity A T-Wave shock (4 S1 at 400 ms with a 310 ms delay and 1.2 Joule biphasic waveform) induced ventricular fibrillation that was successfully terminated with a 20 Joule shock (impedance 68 ohms). Generator change 03/25/16: New Pulse Generator [employer] [id number] Serial number [id number] Implanted 03/25/2016 CHAIR SPRINGER ICD Location: Subcutaneous Non-ischemic cardiomyopathy Dilated cardiomyopathy -- non-ischemic. Index presentation with acute decompensated heart failure 2001. a. Right and left heart catheterization demonstrating normal coronary arteries, EF=35%. b. Elevated PCWP and LVEDP with normal cardiac output. c. Echocardiogram 2001 -- EF=25% with 1+ mitral regurgitation. Echocardiogram 2/10/03 -- EF=25% Echocardiogram 02/19/04 -- EF=50%. LV=6.7/4.8 [...] with left bundle branch block, PVCs, QRS jhknnpbu=820 msec. Symptomatic CHB 06/13/12- s/p DDDR pacemaker 100% V paced rhythm SPEP/Free Light Chains- Results for JATINDER MORRELL ( ) as of 07/10/2016 19:35 Ref. Range 10/19/2015 14:06 10/19/2015 14:07 [place] Free Light Chains Latest Ref Range: 0.33 [...] Carvedilol ROSY/ARB Yes Losartan Spironolactone no Previously [id number], d/c secondary to side effects (hives), no rechallenge Amlodipine Yes Initiated 05/30 [place] AFIB? no Anticoagulated AICD/Type CHAIR SPRINGER-D LBBB, EF dropped to 35%- 04/02/13 back up at ~ 50% post CHAIR SPRINGER--> EF=65% NSR with LBBB, QRS= 170 ms [...] initiated 08/01/12 LBBB (left bundle branch block) OHO=331 ms New Symptomatic CHB 05/30-->declined pacer at initial presentation while traveling -S/p temp pacer-->Permanent DDDR pacer -LVEF~ 50-55%, ICD not indicated, but at risk for V paced rhythm dyssynchrony Complete heart block Symptomatic bradycardia with CHB and LBBB, HR in the 20-30s Initially seen at a local ER, pacemaker recommended, but declined While in ICU, [place], called [facility] in cath report, but likely symptomatic bradycardia and CHB CHB- s/p temporary pacer 06/13/2012 - cath: Angiogram, mild irregularities of LAD, LCXF dominant, 30-40% mid RCA - No LV gram done S/p DDD-R Pacemaker Medtronic Adapta Dual Chamber Model # [id number], Serial number [id number] -[place], [place] Pericarditis New chest discomfort ~ 2 weeks post DDD pacer implant Elevated C reactive protein; pericardial effusion->improved with NSAID and colchicine. Should be on colchicine until Nov 18, 2012 Elevated ProBNP, some clinical response with diuretics Stress Echo, LVEF=44%, no change, no definite ischemia, poor exercise tolerance, no pericardial effusion noted on stress Trivial pleural effusion on chest x-ray Elevated THO=162 a-->3.8 AN ESR=53 on index presentation --> 25, 13 and 4 on medical therapy with colchicine, steroids not initiated Alcohol use History of Alcohol use Hypertension BP ~ 130-150 mmHg Rx: Carvedilol, [...] He reports current alcohol use of about 0.8 standard drinks of alcohol per week. He reports that he does not use drugs. FAMILY HISTORY: Reviewed and updated as appropriate in the medical record. No family history on file. No significant CV disease. ALLERGIES: Reviewed and updated as appropriate in the medical record. Allergies Allergen Reactions Lasix [Furosemide] Rash MEDICATIONS: Outpatient Medications Marked as Taking for the 02/08/23 encounter (Office Visit) with Lauren Starks MD Medication Sig Dispense Refill pravastatin (Pravachol) 20 mg tablet carvediloL (Coreg) 6.25 mg tablet Take 1 tablet by mouth 2 times daily (with meals). 180 tablet 2 magnesium oxide (Mag-Ox) 400 mg (241.3 mg [...] Tablet Take 1 tablet by mouth daily. gwjtdfs-ezjmfpgyqgkap-zqtmnygd (EXCEDRIN MIGRAINE) 250-250-65 mg per tablet Take [...] tablet by mouth nightly. 30 tablet 0 REVIEW OF SYSTEMS: See HPI above for pertinent positives and negatives. All other ROS negative by system (including general, HEENT, pulmonary, gastrointestinal, genitourinary, musculoskeletal, endocrine, hematologic, extremity, skin, neurology, and psychiatric) with exceptions below. PHYSICAL EXAMINATION: Vital Signs: Wt Readings from Last 3 Encounters: 02/08/23 112.9 kg (249 lb) 10/31/22 110 kg (242 lb 9.6 oz) 08/08/22 111.8 kg (246 lb 6.4 oz) Temp Readings from Last 3 Encounters: 03/25/16 36.3 ??C (97.3 ??F) (Temporal) 02/11/13 35.6 ??C (96 ??F) (Temporal) BP Readings from Last 3 Encounters: 02/08/23 132/74 10/31/22 131/79 08/08/22 133/80 Pulse Readings from Last 3 Encounters: 02/08/23 66 10/31/22 67 08/08/22 66 SpO2: [97 %] General -pleasant and in [...] LAB STUDIES: Chemistry Component Value Date/Time NA 141 02/08/2023 0954 K 4.6 02/08/2023 0954 CL 104 02/08/2023 0954 CO2 30 02/08/2023 0954 BUN 18 02/08/2023 0954 CREATININE 0.91 02/08/2023 0954 Component Value Date/Time CALCIUM 9.7 02/08/2023 0954 ALKPHOS 59 02/08/2023 0954 AST 14 02/08/2023 [...] the sinuses of Valsalva is 4.2 cm. Assessment LBBB (left bundle branch block) S/p CHAIR SPRINGER-D, 99% V Paced H/O Pericarditis Without recurrence Non-ischemic cardiomyopathy HFimpEF (now 55%), ACC/AHA stage C. NYHA FC II --DC carvedilol --start metop --continue losartan H/O Paroxysmal Atrial Fibrillation - none since --[id number] VASc Score 6 (Age, CHF, HTN, PE) --ntolerance to DO AC due to hematuria with Eliquis --Consider DO AC in future if AF reoccurs --we had a shared decision making conversation about the role of CHINESE device and he is interested inproceeding. Biventricular implantable cardioverter-defibrillator in situ- [facility] Stable HTN Good control Lauren Starks MD documented in this encounter Plan of Treatment Upcoming Encounters Date Type Department Care Team (Late st Contact Info) Description 02/26/2024 10:00 AM EST Hospital Encounter Non-[place] [address] Arrived Scheduled Orders Name Type Priority Associated Diagnoses Orde r Schedule Basic Metabolic Panel (non-fasting) Lab Routine Chronic systolic heart failure Expected: 02/08/2023, Expires: 02/09/2024 documented as of this encounter Results * pro-Brain Natriuretic Peptide (02/08/2023 9:54 AM EST) NT-proBNP 151 <=449 pg/mL [facility] Blood 02/08/2023 9:54 AM EST 02/08/2023 10:03 AM EST Narrative Resulting Agency Comment Spec In Lab Lauren Starks MD CHEMISTRY ORDERABL ES Performing Organization Address [facility] de Phone Number [facility] [place] [address] * Hepatic Function Panel (02/08/2023 9:54 AM EST) Protein, Total 6.5 6.1 - 8.0 g/dL [facility] Albumin 4.1 3.2 - 5.2 g/dL [facility] Aspartate Aminotransferase 14 0 - 39 unit/L [facility] Alanine Aminotransferase 14 0 - 55 unit/L [facility] Alkaline Phosphatase 59 40 - 130 unit/L [facility] Bilirubin, Total 0.9 0.2 - 1.3 mg/dL [facility] Bilirubin, Direct 0.2 0.0 - 0.3 mg/dL [facility] Blood 02/08/2023 9:54 AM EST 02/08/2023 10:03 AM EST Narrative Resulting Agency Comment Spec In Lab Lauren Starks MD CHEMISTRY ORDERABL ES Performing Organization Address [facility] de Phone Number [facility] [place] [address] * Magnesium (02/08/2023 9:54 AM EST) Magnesium 0.88 0.69 - 1.07 mmol/L [facility] Blood 02/08/2023 9:54 AM EST 02/08/2023 10:03 AM EST Narrative Resulting Agency Comment Spec In Lab Lauren Starks MD CHEMISTRY ORDERABL ES Performing Organization Address [facility] Co de Phone Number [facility] [place] [address] documented in this encounter Visit Diagnoses Diagnosis Chronic systolic heart failure documented in this encounter Care Teams Correctional Sergeant Relationship Specialty Start Date End Date Andrew Siu DNP [address] [place] [phone] PCP - General Family Medicine 08/08/22 documented as of this encounter
--- OUTSIDE RECORDS SUMMARY | 2023-12-11 18:42 | XMS_ITS | Encounter Summary ---
[place] [address] Care Team Providers Care Quality Control Representative Name Role Phone Andrew Siu DNP Primary Care Provider +1- [phone] Encounter Details Date Type Department Care Team (Latest Contact Info) Description 06/01/2023 10:00 AM EDT - 06/01/2023 11:59 PM EDT Hospital Encounter [place] [address] Discharge Disposition: Home Social History Tobacco Use [...] AM EST Hospital Encounter Non[place] [address] Arrived documented as of this encounter Procedures Procedure Name Priority Date/Time Associated Diagnosis Comments PRO ICD INTERROGATION REMOTE UP TO 90 DAYS Routine 04/04/2023 5:01 AM EST documented in this encounter Results * Cardiac Device Check - Remote (04/04/2023 5:01 AM EST) Anatomical Region Laterality Modality Other 04/04/2023 5:01 AM EST Vincent Martinez MD IMPLANTABLE CARDIAC DEVICE documented in this encounter Visit Diagnoses Not on filedocumented in this encounter Care Teams Quality Control Representative Relationship Specialty Start Date End Date Andrew Siu DNP [address] [place] [id number] PCP - General Family Medicine 08/08/22 documented as of this encounter
--- OUTSIDE RECORDS SUMMARY | 2023-12-11 18:42 | XMS_ITS | Encounter Summary ---
[place] [address] Care Team Providers Care Pump Oiler Name Role Phone Andrew Siu DNP Primary Care Provider +1- [phone] Encounter Details Date Type Department Care Team (Latest Contact Info) Description 02/08/2023 Travel Social History Tobacco Use Types Packs/Day Years Used Date Smoking Tobacco: Former Cigarettes Q uit: 01/12/1996 Smokeless Tobacco: Never Comments:stopped 15 years Alcohol Use Standard Drinks/Week Comments Yes 0.8 (1 standard drink = 0.6 oz p ure alcohol) 1 drink a day Sex and Gender Information Value Date Recorded Sex Assigned at Not on file Gender Identity Not on file Sexual Orientation Not on file documented as of this encounter Plan of Treatment Upcoming Encounters Date Type Department Care Team (Late st Contact Info) Description 02/26/2024 10:00 AM EST Hospital Encounter Non-In[place] [address] Arrived documented as of this encounter Visit Diagnoses Not on filedocumented in this encounter Care Teams Pump Oiler Relationship Specialty Start Date End Date Andrew Siu DNP [address] [place] [phone] PCP - General Family Medicine 08/08/22 documented as of this encounter
--- OUTSIDE RECORDS SUMMARY | 2023-12-11 18:42 | XMS_ITS | Encounter Summary ---
Author Organization [facility] [place] [address] Care Team Providers Care Human Resources Technician Name Role Phone Andrew Siu DNP Primary Care Provider [phone] Reason for Referral * Diagnostic Test (Routine) - Closed Specialty Diagnoses / Procedures Referred By Contac t Referred To Contact Cardiology Diagnoses Atrial fibrillation, unspecified type Procedures Transesophageal Echocardiogram (TALA) Dinesh Matthews MD [facility] [place] [address] [facility] [place] [address] Referral ID Status Reason Start Date Expiration Date V isits Requested Visits Authorized [id number] Closed Specialty Service Requested 06/22/2023 06/21/2024 1 1 Encounter Details Date Type Department Care Team (Late st Contact Info) Description 06/21/2023 Orders Only Cardiology at [address] [address] Dinesh Matthews MD [facility] [place] [address] Atrial fibrillation, unspecified type Social History Tobacco Use Types Packs/Day Years [...] AM EST Hospital Encounter Non-[place] [address] Arrived documented as of this encounter Results * Basic Metabolic Panel (non-fasting) (08/16/2023 10:44 AM EDT) Pathologist [facility] Glucose 84 65 - 199 mg/dL [facility] Comment:Diabetes: >=200 mg/d L plus symptoms Blood Urea Nitrogen 20 10 - 20 mg/dL [facility] Creatinine 0.94 0.80 - 1.50 mg/dL [facility] Sodium 140 135 - 145 mmol/L [facility] Potassium 4.8 3.5 - 5.0 mmol/L [facility] Comment: Please note: ??Patients with WBC >100,000 may have falsely elevated Potassium levels. ??For accurate Potassium quantification in these patients send serum separator tube (gold top) for subsequent determinations. ??Contact the Clinical Chemistry Laboratory if there are any questions. Chloride 105 98 - 107 mmol/L [facility] Carbon Dioxide 28 22 - 31 mmol/L [facility] Anion Gap 7 5 - 15 mmol/L [facility] Calcium 9.6 8.5 - 10.5 mg/dL [facility] Est Glomerular Filtration Rate 83 >=60 mL/min/1. 73 m?? [facility] Comment: This patient's estimated GFR was [...] In Lab Clarice Bull APRN CHEMISTRY ORDERABLES [facility] [place] [id number] * TALA FOR GUIDANCE (07/13/2023 10:33 AM EDT) EF 60 HEART[facility] SYSTEM Anatomical Region Laterality Modality Cardiac Other [...] Guidance Interpreting Fellow: Trina Trevino. Exam Location: [facility]. Interpretation Summary TALA performed for [...] MD - 07/13/2023 Transesophageal Echocardiogram Report Name: PORSCHE JATINDER J Study Date: 407:37 AMBP: 148/84 mmHg HR: 69 : 1945 Height: 198 cm Age: 78 yrs Weight: 113 kg Gender: Male BSA: 2.5 m2 Referring Physician: DINESH MATTHEWS Performed By: Trina Trevino MD Reason For Study: Arrhythmia History: Watchman Guidance Interpreting Fellow: Trina Trevino. Exam Location: [facility]. Interpretation Summary TALA performed for [...] Visit Diagnoses Diagnosis Atrial fibrillation, unspecified type Atrial fibrillation, unspecified type documented in this encounter Care Teams Human Resources Technician Relationship Specialty Start Date End Date Andrew Siu DNP [address] [place] [id number] PCP - General Family Medicine 08/08/22 documented as of this encounter
--- OUTSIDE RECORDS SUMMARY | 2023-12-11 18:42 | XMS_ITS | Encounter Summary ---
Author Organization [facility] [place] [address] Care Team Providers Care Shoe Turner Name Role Phone Andrew Siu DNP Primary Care Provider +1- [phone] Encounter Details Date Type Department Care Team (Late st Contact Info) Description 07/14/2023 [place] [phone] Faith Christy MD [facility] [place] [address] Social History Tobacco Use Types Packs/Day Years [...] encounter Miscellaneous Notes * Telephone Encounter - Faith Christy MD - 07/14/2023 4:43 PM EDT Patient is s/p Left Atrial Appendage Closure 31 mm WATCHMAN FLX pro 07/13/2023 anti-PLT plan: - Aspirin 81 mg once daily - Clopidogrel (Plavix) 75 mg daily for 6 months port procedure Patient contacted structural team today with concern for bloody bowel movement x1. I spoke with the patient who reported he has not taken Aspirin today and only tool Plavix 75 mg. I advised the patient to hold off on taking Aspirin and continue taking Plavix 75 mg tomorrow and monitor his stool. If continues to have bloody bowel movement then STOP plavix and start Aspirin 81 mg daily starting Saturday 07/15. We will re-connect with the patient on Monday to follow up. Patient expresses understanding of the plan and agrees with it. Faith Christy MD, M.Sc. Structural Heart Disease Fellow Pager :[phone] documented in this encounter Plan of Treatment Upcoming Encounters Date Type Department Care Team (Late st Contact Info) Description 02/26/2024 10:00 AM [facility] Hospital Encounter Non-Invasive [place] [address] Arrived documented as of this encounter Visit Diagnoses Not on filedocumented in this encounter Care Teams Shoe Turner Relationship Specialty Start Date End Date Andrew Siu DNP [address] [place] [address] PCP - General Family Medicine 08/08/22 documented as of this encounter
--- OUTSIDE RECORDS SUMMARY | 2023-12-11 18:42 | XMS_ITS | Encounter Summary ---
Author Organization [facility] [place] [address] Care Team Providers Care Corporate Claims Examiner Name Role Phone Andrew Siu DNP Primary Care Provider [phone] Reason for Visit * Auth/Cert (Routine) Specialty Diagnoses / Procedures Referred By Contac t Referred To Contact Diagnoses Atrial fibrillation, unspecified type A Fib Watchman Procedures PRO PERQ CLSR TCAT L ATR APNDGE W/ENDOCARDIAL IMPLNT CARDIAC CATHETERIZATION @PERQ TRANSCATH CLOSURE LEFT ATRIAL APPENDAGE W ENDOCARDIAL IMPLANT, INC RAD S&I (WRVU 14) TRANSESOPHAGEAL ECHO DURING CATH/EP PROCEDURE Darrel Matthews MD [facility] [place] [address] [facility] Referral ID Status Reason Start Date Expiration Date Visits Re quested Visits Authorized [id number] 1 1 Encounter Details Date Type Department Care Team (Late st Contact Info) Description 07/13/2023 7:30 AM EDT - 07/13/2023 9:30 AM [place] [phone] Darrel Matthews MD [facility] [place] [address] CARDIAC CATHETERIZATION Social History Tobacco Use Types Packs/Day Years [...] Sign Reading Time Taken Comments Blood Pressure 148/84 07/13/2023 6:15 AM EDT Right arm - 145/90 Pulse 66 07/13/2023 6:15 AM EDT Temperature 36.1 ??C (97 ??F) 07/13/2023 6:1 5 AM EDT Respiratory Rate 18 07/13/2023 6:15 AM EDT Oxygen Saturation - - Inhaled Oxygen Concentration - - Weight 113.4 kg (250 lb) 07/13/2023 6:1 5 AM EDT Height 198.1 cm (6' 5.99) 07/13/2023 6 :15 AM EDT Body Mass Index 28.9 07/13/2023 6:15 AM [...] 5 mg Quantity: 90 tablet Refills: 3 ferejvc-pzafkzqpffxjx-wdwigdqh 250-250-65 mg Tablet Commonly known as: EXCEDRIN [...] appointments: During 8am-5pm Monday through Monday call [phone] and ask to speak to the cardiology clinic triage nurse. All other times call [phone] and ask to speak to the retail pharmacy manager international editorial producer. Return to work: One week Driving: No driving for 24 hours after catherization Diet: Regular diet, heart healthy Follow up Appointments: PCP within 2-3 weeks. Then, please follow up with T in [address] scan/TALA. [...] PCP 2-3 weeks post procedure and general project specialist in the 1-3 months post procedure. For the first 6 months of the device, try to avoid unnecessary procedures. For only dental procedures in first 6 months if they must be done: take a prescribed antibiotic before dental procedures (typically amoxicillin 2 g by mouth or clindamycin 600 mg by mouth one time one hour before procedure).Your PCP or our cardiac nurse ([phone]) can prepare a prescription is needed. If there are questions, please contact [facility] at [phone]. If there are emergency questions related to the device, call the retail pharmacy manager international editorial producer at [phone]. Call your doctor if: Chest pain, dyspnea, pain or swelling in legs occurs. Shower/Bath: May shower; no tub bath for five days after catheterization. Wound Care: Wash with soap and water daily. Contact MD if redness, swelling, increased pain or drainage. Faith Christy MD, M.Sc. Structural Heart Disease Fellow Pager :[phone] documented in this encounter Medications at Time [...] Christy MD - 07/13/2023 10:19 AM EDT [facility] Interventional Cardiology Structural [...] [employer] Model# 7122Q-58 cm Serial #[id number] Implanted 02/18/2013 Bipolar, steroid-tipped, active-fixation DF-4 lead Access: Axillary vein Location: Right ventricular apical septum (old) Atrial electrode: Medtronic, Model # 5568-52 cm Serial # [id number] Implanted 06/14/2012 Bipolar, steroid-tipped, active-fixation IS-1 lead Access: Not known Location Right atrium anterolateral Coronary sinus electrode: [employer] 1458Q/86 Serial number [id number] Implanted 02/18/2013 Quadripolar passive active fixation lead Access: Subclavian vein Location: Coronary sinus, posterolateral vein Pulse generator: [employer] [id number] Serial number [id number] Implanted 02/18/2013 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 Symptomatic CHB 06/13/12- s/p DDDR pacemaker 100% V paced rhythm SPEP/Free Light Chains- Results for JATINDER MORRELL ( ) as of 07/10/2016 19:35 Ref. Range 10/19/2015 14:06 10/19/2015 14:07 [place] Free Light Chains Latest Ref Range: 0.33 [...] Carvedilol ROSY/ARB Yes Losartan Spironolactone no Previously [id number], d/c secondary to side effects (hives), no rechallenge Amlodipine Yes Initiated 05/30 [place] AFIB? 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-D LBBB, EF dropped to 35%- 04/02/13 back up at ~ 50% post REGIONAL INTERMODAL TRUCK DRIVER--> EF=65% NSR with LBBB, QRS= 170 ms [...] LBBB (left bundle branch block) Overview Note: URE=271 ms New Symptomatic CHB 05/30-->declined pacer at initial presentation while traveling -S/p temp pacer-->Permanent DDDR pacer -LVEF~ 50-55%, ICD not indicated, but at risk for V paced rhythm dyssynchrony Complete heart block Overview Note: Symptomatic bradycardia with CHB and LBBB, HR in the 20-30s Initially seen at a local ER, pacemaker recommended, but declined While in ICU, [place], called [facility] in cath report, but likely symptomatic bradycardia and CHB CHB- s/p temporary pacer 06/13/2012 - cath: Angiogram, mild irregularities of LAD, LCXF dominant, 30-40% mid RCA - No LV gram done S/p DDD-R Pacemaker Medtronic Adapta Dual Chamber Model # [id number], Serial number [id number] -[place], [place] Pericarditis Overview Note: New chest discomfort ~ 2 weeks post DDD pacer implant Elevated C reactive protein; pericardial effusion->improved with NSAID and colchicine. Should be on colchicine until Nov 18, 2012 Elevated ProBNP, some clinical response with diuretics Stress Echo, LVEF=44%, no change, no definite ischemia, poor exercise tolerance, no pericardial effusion noted on stress Trivial pleural effusion on chest x-ray Elevated ZNN=848 a-->3.8 AN ESR=53 on index presentation --> [...] Christy MD Interventional Cardiology 07/13/23 10:19 AM [facility] Pager: [phone] * Faith Christy MD - 07/13/2023 6:53 [...] HAVB with pacemaker 2012 and upgraded to REGIONAL INTERMODAL TRUCK DRIVER-D, h/o provoked PE ECHO: TTE 07/2022 LVEF [...] Tablet Take 1 tablet by mouth daily. jgjfcav-oogowzlowrmkk-gymvvbpk (EXCEDRIN MIGRAINE) 250-250-65 mg per tablet Take [...] MD, M.Sc. Structural Heart Disease Fellow Pager :[phone] documented in this encounter Miscellaneous Notes * Brief Op Note - Darrel Matthews MD - 07/13/2023 9:59 AM EDT Images from the original note were not included. Preliminary Cardiac Catheterization Procedure Note: Patient Name: Jatinder Morrell : [id number] MR#: [id number] Case Date: 07/13/2023 Firer Boiler: Panel 1: * Darrel Matthews MD - [...] FLX-Pro mm was prepped according to the Dinkey Operator Slag's IFU with special attention to elimante all [...] approach. A Watchman new FLX-Pro 27 mm ([id number]) was prepped as outlined above. The WM/Delivery [...] patient was then [facility] without apparent comlication AV MD Byron pit manager PAGER [phone] documented in this encounter Plan of Treatment Upcoming Encounters Date Type Department Care Team (Late st Contact Info) Description 02/26/2024 10:00 AM EST Hospital Encounter [place] [address] Arrived documented as of this encounter Procedures [...] AM EDT Narrative 07/13/2023 12:27 PM EDT [address] [place] [address] ? Echocardiogram Report Name: JATINDER MORRELL ?Study Date: 07/13/2023 11:31 AMBP: 137/77 mmHg ? Patient Location: [address] : 1945 ? Height: 198 cm ? Account: [id number] Age: 78 yrs ? Weight: 113 kg Gender: Male ?BSA: 2.5 m2 Ordering Physician: FAITH CHRISTY Referring Physician: JAVID GARCIA Performed By: Lorena Johns RDCS Reason For Study: Presence of Watchman left atrial appendage closure device Exam Location: [facility]. Interpretation Summary Limited study following Watchman implantation. LV function is probably normal. Interatrial septum is not well seen. There is no pericardial effusion. Procedure Limited - 88265. Color Doppler - 02491. Satisfactory quality. Left Ventricle Global left ventricular [...] Note Steven Chavarria MD - 07/13/2023 [address] [place] [id number] Echocardiogram Report Name: JATINDER MORRELL Study Date: 1:31 AMBP: 137/77 mmHg Patient Location: [address] : 1945 Height: 198 cm Account: [id number] Age: 78 yrs Weight: 113 kg Gender: Male BSA: 2.5 m2 Ordering Physician: FAITH CHRISTY Referring Physician: JAVID GARCIA Performed By: Lorena Johns RDCS Reason For Study: Presence of Watchman left atrial appendage closuredevice Exam Location: [facility]. Interpretation Summary Limited study following Watchman implantation. LV function is probably normal. Interatrial septum is not well seen. There is no pericardial effusion. Procedure Limited - 05315. Color Doppler - 54825. Satisfactory quality. Left Ventricle Global left ventricular [...] (Bezet) 548 ms MUSE SYSTEM Calculated P Brusly 32 degrees MUSE SYSTEM Calculated R Brusly -65 degrees MUSE SYSTEM Calculated T Brusly 64 degrees MUSE SYSTEM INTERPRETATION AV dual-paced [...] Other Narrative 07/13/2023 4:22 PM EDT ?[facility] ? Cardiac Catheterization/Intervention Report ? Patient Name: Jatinder Morrell. ? Procedure Date: 07/13/2023 ? A #: [id number] ? Primary Physician: Darrel Matthews V ? Case #: [id number] ? File Name: [id number] ? Catheterization Order Number: [id number] ? [facility] ? Final Report [place], [place] ? Patient Name: ? Jatinder J. Berley ? ID#: ?[id number] ? : ?1945 ? Procedure Date: ? July 13, 2023 ? Case #: ? [id number] ? Room: ? 6 ? Case Physicians: ?Darrel Matthews M.D. ? Start: ?08:15 ?Charbel Naqvi M.D. ? Admission: ??07/13/2023 ?Fellow: ? Valed Christelle Christy. ? Referring Physician: ??Belle Lawler ? Procedures: ?* Right Heart Catheterization ?* Vascular Closure Device Deployment ?* Endotracheal Intubation By Non-Cath Physician ?* Transesophageal Echo During Cath ?* Access Site Angiography ?* Anesthesia ?* Peripheral Intravascular Ultrasound ?* Left Atrial Appendage Closure ? History ?Jatinder J. Berley is a 78 year old man. He has a family history of ?coronary artery disease. The patient's smoking status is Former. Prior to ?the initiation of this procedure, the patient was designated as ASA Class ?III. The CS clinical frailty scale is 3: Managing Well. ? Diagnostic Tests: ?Medications Prior to Procedure: ? Beta Amanda. ? Indications for Diagnostic Cath: ?The priority of the diagnostic procedure was Elective. The indication for ?the paving and surfacing labourer visit is other indication. Chest pain symptom [...] Watchman FLX Closure ?Device 31 mm (s/l/n [id number]) was prepared and deployed using standard ?technique. [...] Watchman ??FLX-Pro ??mm was preppedaccording to ?the Dinkey Operator Slag's IFU with special attention to elimante all [...] ??approach. ??A Watchman ??new FLX-Pro 27 mm ([id number]) was ?preppedas outlined above. ??The WM/Delivery system [...] to nor was it given in the ?paving and surfacing labourer. ?These recommendations are made at the time of the intervention. Patient ?and provider preferences or a changing clinical situation may require ?modification of this regimen. Consult [facility] Interventional Cardiology for ?questions. ? Conclusions: ?* [...] Note Darrel Matthews MD - 07/13/2023 [facility] Cardiac Catheterization/Intervention Report Patient Name: Jatinder Morrell Procedure Date: 07/13/2023 A #: [id number] Primary Physician: Darrel Matthews V Case #: [id number] File Name: [id number] Catheterization Order Number: [id number] [facility] FinalReport [place], [place] Patient Name: Jatinder Morrell ID#:[id number] :1945 Procedure Date: July 13, 2023 Case [...] patient was designated as ASAClass III. The [facility] clinical frailty scale is 3: Managing Well. Diagnostic Tests: Medications Prior to Procedure: Beta Amanda. Indications for Diagnostic Cath: The priority of the diagnostic procedure was Elective. Theindication for the paving and surfacing labourer visit is other indication. Chest pain symptomassessment [...] A Watchman FLXClosure Device 31 mm (s/l/n [id number]) was prepared and deployed usingstandard technique. The [...] A Watchman FLX-Pro mm was preppedaccordingto the Dinkey Operator Slag's IFU with special attention to elimante all [...] approach. A Watchman new FLX-Pro 27 mm ([id number]) was preppedas outlined above. The WM/Delivery system [...] prior to nor was it given inthe paving and surfacing labourer. These recommendations are made at the time of the intervention.Patient and provider preferences or a changing clinical situation mayrequire modification of this regimen. Consult [facility] Interventional Cardiologyfor questions. Conclusions: * Successful left [...] EDT) Hemoglobin 15.7 13.7 - 16.5 g/dL [facility] Hematocrit 47.5 40.5 - 48.5 % [facility] Blood 07/13/2023 7:55 AM EDT 07/13/2023 8:16 AM EDT Narrative Resulting Agency Comment Spec In Lab Darrel Alicea MD HEMATOLOGY ORDERABLE S [facility] [place] [address] * (ABNORMAL) BMP w/fasting Glucose (07/13/2023 7:55 AM EDT) Glucose Fasting 103(H) 65 - 99 mg/dL [facility] Comment: ?Fasting* Glucose [...] of Diabetes Mellitus, Position Statement from the [place] [employer]. ??Diabetes Care, Volume 33, Supplement 1, Mar 2009 Blood Urea Nitrogen 17 10 - 20 mg/dL [facility] Creatinine 0.82 0.80 - 1.50 mg/dL [facility] Sodium 139 135 - 145 mmol/L [facility] Potassium 4.1 3.5 - 5.0 mmol/L [facility] Comment: Please note: ??Patients with WBC >100,000 may have falsely elevated Potassium levels. ??For accurate Potassium quantification in these patients send serum separator tube (gold top) for subsequent determinations. ??Contact the Clinical Chemistry Laboratory if there are any questions. Chloride 103 98 - 107 mmol/L [facility] Carbon Dioxide 27 22 - 31 mmol/L [facility] Anion Gap 9 5 - 15 mmol/L [facility] Calcium 9.2 8.5 - 10.5 mg/dL [facility] Est Glomerular Filtration Rate 90 >=60 mL/min/1. 73 m?? [facility] [...] Alicea MD CHEMISTRY ORDERABLES Performing Organization Address [facility] Co de Phone Number [facility] [place] [address] * ABORH Recheck Status (07/13/2023 6:46 AM EDT) ABORH Recheck Order Order Placed [facility] ABORH Type Recheck Completed [facility] Blood 07/13/2023 6:46 AM EDT 07/13/2023 6:52 AM EDT Narrative Resulting Agency Comment Spec In Lab Oneyda Neumann MD BLOOD BANK LAB OR DERABLES Performing Organization Address [facility]/ZIP Co de Phone Number [facility] [place] [address] * Type and screen ([facility]/MOSHE) (07/13/2023 6:46 AM EDT) ABORH Type A POSITIVE [facility] Patient BB History Not Found [facility] Expires at 2359 on: 07/16/2023 [facility] Ab Screen Interp Negative [facility] Blood 07/13/2023 6:46 AM EDT 07/13/2023 6:46 AM EDT Narrative [facility] - 07/13/2023 6:46 AM EDT This Type and Screen result is only valid at the [facility] Hospital Resulting Agency Comment Spec In Lab Oneyda Neumann MD BLOOD BANK LAB OR DERABLES [facility] [place] [address] * SCAN DOC: CARDIAC CATH (07/13/2023 12:00 [...] Action Action Date Dose Rate Site aspirin chewable tablet PRN, Starting on Tasneem 07/13/23 at 0733, Until Tasneem 07/13/23 at 1018, Intra-Operative (Intra-Procedure), Routine Given 07/13/2023 7:33 AM EDT 324 mg aspirin EC tablet 325 mg 325 mg, Oral, DAILY, First dose on Tasneem 07/13/23 at 0900, Until Discontinued, Routine aspirin EC tablet 81 mg 81 mg, Oral, DAILY, First dose on Mon07/14/23 at 0900, Until Discontinued, Recovery (Recovery-Hospital Unit), Routine clopidogreL (Plavix) tablet 75 mg 75 mg, Oral, DAILY, First dose on Mon07/14/23 at 0900, Until Discontinued, Recovery (Recovery-Hospital Unit), Routine heparin (porcine) (1,000 units/mL) injection PRN, Starting on Tasneem 07/13/23 at 0830, Until Tasneem 07/13/23 at 0959, Intra-Operative (Intra-Procedure), Routine Given 07/13/2023 9:10 AM EDT 1,500 Units Given 07/13/2023 8:52 AM EDT 2,000 Units Given 07/13/2023 8:44 AM EDT 2,500 Units lactated ringers infusion 1,000 mL, at 100 [...] of Procedure), Routine documented in this encounter Active and Recently [...] at 1414, Recovery (Recovery-Hospital Unit) 1115 (New Bag - Prov ider: Bobby Baptiste RN) PRN Medication Order [...] Routine documented in this encounter Care Teams Corporate Claims Examiner Relationship Specialty Start Date End Date Andrew Siu DNP [address] [place] [id number] PCP - General Family Medicine 08/08/22 documented as of this encounter
--- OUTSIDE RECORDS SUMMARY | 2023-12-11 18:42 | XMS_ITS | Encounter Summary ---
Author Organization [facility] [place] [address] Care Team Providers Care Sports Complex Attendant Name Role Phone Andrew Siu DNP Primary Care Provider [phone] Reason for Visit * Auth/Cert (Routine) Specialty Diagnoses / Procedures Referred By Contac t Referred To Contact Diagnoses Atrial fibrillation, unspecified type A Fib Watchman Procedures PRO PERQ CLSR TCAT L ATR APNDGE W/ENDOCARDIAL IMPLNT CARDIAC CATHETERIZATION @PERQ TRANSCATH CLOSURE LEFT ATRIAL APPENDAGE W ENDOCARDIAL IMPLANT, INC RAD S&I (WRVU 14) TRANSESOPHAGEAL ECHO DURING CATH/EP PROCEDURE Darrel Matthews MD [facility] [place] [address] [facility] Referral ID Status Reason Start Date Expiration Date Visits Re quested Visits Authorized [id number] 1 1 Encounter Details Date Type Department Care Team (Late st Contact Info) Description 07/13/2023 7:33 AM EDT Anesthesia Event [place] [address] Oneyda eNumann MD [facility] [place] [address] Macario Hawthorne CRNA [facility] [place] [address] Anesthesia Record Procedure Summary Procedure Name Responsible Anesthesiologist Anesthesia Start Time Anesthesia Stop Time CARDIAC CATHETERIZATION Oneyda Neumann MD 07/12 0733 07/13/23 1012 Events Date Time Event Comment 07/13/2023 0702 0733 AN Verify 0733 Start 0733 An Start Data 0745 An Induction 0754 An Intubation 0756 Anesthesia Ready 0956 Extubation/LMA Out 1006 an stop data 1009 Recovery or ICU Handoff Talisha ent care was transferred to the destination unit staff after review of the patient's medical history, current anesthetic/surgical status and plan, according to the Provider Handoff Checklist. 1012 Stop Meds Name Total fentaNYL 100 mcg IV Lidocaine 50 mg Propofol 250 mg Rocuronium 140 mg ePHEDrine 5 mg Ondansetron 4 mg ceFAZolin 2 g heparin 14,000 Units sugammadex 340 mg * Agents Name O2 * Blood No blood administrations on file. Lines, Drains, and Airways Type Details Placement Removal Incision 02/17/23; 1435; Left , upper; chest 02/17/23 1435 by Raquel Mancilla RN PIV 07/13/23; 0650; 20 g auge, 1 in length; cephalic vein (lateral side of arm), left; distraction; LDA not present upon assessment; 08/29/23; 1037 07/13/23 0650 by Leslie Bolden RN 08/29/23 1037 by Arely Chavez, RN ETT Mask Ventilation: Difficult (3); ETT Type: Cuffed, Oral; ETT Size: 7.5 mm; Mac Blade: 4; Indirect: Video; Notes: Asleep, Pre-O2, Stylette; Attempts: 2; Laryngoscopy Grade: 4; ETT Placement Verified By: Auscultation, Visual, Capnometry; Secured at Teeth: 24 cm; Inserted by: gilma moreno; Removal Date: 07/13/23; Removal Time: 1008 07/13/23 0754 by Macario Hawthorne CRNA 07/13/23 1008 by Macario Hawthorne CRNA Arterial Line 07/13/23; 0804; radi al artery, left; 20 gauge; Anatomical Landmarks, Guidewire; Yes - US guidance used for evaluation of potential access sites, vessel patency and realtime visualization of needle entry with permanent recording.; continuous blood pressure monitoring, frequent blood gas measurement, other (see comments); Sterile Prep, Sterile Gloves; 07/13/23; 1200 07/13/23 0804 by Macario Hawthorne CRNA 07/13/23 1200 by Bobby Baptiste RN LDA Cath/EP Sheath 07/13/23; 0807; 14 F rench (Fr); Right; Femoral; Venous 07/13/23 0807 by Bernadette Rooney RN 07/13/23 0959 by Bernadette Rooney RN documented in this encounter Social History [...] OR Notes * Anesthesia Postprocedure Evaluation - Macario Hawthorne CRNA - 07/13/2023 10:12 AM EDT Department of Anesthesiology Post-procedure Note Patient: Jimmie Mccauley Procedure Summary Date: 07/13/23 Room / Location: [facility] / [facility] Anesthesia Start: 732 Anesthesia Stop: 1011 Procedures: CARDIAC CATHETERIZATION @PERQ TRANSCATH CLOSURE LEFT ATRIAL APPENDAGE W ENDOCARDIAL IMPLANT, INC RAD S&I (WRVU 14) TRANSESOPHAGEAL ECHO DURING CATH/EP PROCEDURE Diagnosis: Atrial fibrillation, unspecified type (A Fib Watchman) Providers: Darrel Matthews MD; Charbel Naqvi MD Responsible Provider: Oneyda Neumann MD Anesthesia Type: general ASA Status: 4 All Anesthesia Providers: Anesthesiologist: Oneyda Neumann MD RECORD PRESS TENDER: Macario Hawthorne CRNA Vitals Value Taken Time BP Temp Pulse Resp SpO2 Pain Level Patient Location: PACU/SDP Level of Consciousness: Awake and Alert Pain Management: Satisfactory Analgesia PONV: None Cardiovascular Status: At Baseline Respiratory Status: At Baseline and Supplemental O2 (NC or FM) Postoperative Fluid Status: Intravascular EUvolemia Possible Anesthetic Complications: NONE apparent at time of evaluation Final Primary Anesthesia Type: General (The anesthetic type performed was the same as planned.) Comments: * Anesthesia Preprocedure Evaluation - Oneyda Neumann MD - 07/12/2023 2:33 PM EDT Pre-Anesthesia Evaluation for: Jimmie Mccauley a 78 y.o. male. Procedure(s): CARDIAC CATHETERIZATION @PERQ TRANSCATH CLOSURE LEFT ATRIAL APPENDAGE W ENDOCARDIAL IMPLANT, INC RAD S&I (WRVU 14) TRANSESOPHAGEAL ECHO DURING CATH/EP PROCEDURE Patient Active Problem List Diagnosis Date Noted ??? Biventricular implantable cardioverter-defibrillator in situ- St Andrew 02/19/2013 ??? Non-ischemic cardiomyopathy 06/26/2012 ??? Heart failure chronic systolic dysfunction 06/26/2012 ??? Pulmonary embolism 08/01/2012 ??? LBBB (left bundle branch block) 06/26/2012 ??? Complete heart block 06/26/2012 ??? Pericarditis 08/01/2012 ??? Alcohol use 06/26/2012 ??? Hypertension 02/15/2017 ??? ICD (implantable cardioverter-defibrillator) malfunction - St Andrew 02/25/2016 ??? 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 09/12/2012 ??? HX SUDDEN CARDIAC ARREST 06/26/2012 No past medical history on file. Past Surgical History: Procedure Laterality Date ??? PRO COLONOSCOPY, DIAGNOSTIC 03/31/2011 COLONOSCOPY, DIAGNOSTIC performed by ISAEL CODY at [facility] END[facility] ??? PRO REMOVAL AND RPLMT PACING CARDIO-DEFIB PULSE GENERATOR MULT LEAD N/A 02/17/2023 REMOVAL ICD GENERATOR W REPL ICD GEN; MULTI LEAD (WRVU 6.35) [facility] Social History Tobacco Use ??? Smoking status: Former Types: Cigarettes Quit date: 01/12/1996 Years since quittin.5 ??? Smokeless tobacco: Never ??? Tobacco comments: [...] Physical Exam: Preprocedure Vitals Current as of 07/12/23 1433 No BP, pulse, respiration, SpO2, or temperature recorded. Height: Weight: BMI: IBW: Airway Assessment: Mallampati: II TM distance: >3 FB Cardiovascular Assessment: system normal Pulmonary Assessment: pulmonary exam normal Dental Assessment: (+) edentulous Misc Assessment: IV access: Peripheral line Other exam findings: Aox3 Last Filed Perioperative Cognitive Screening None Anesthesia Plan: ASA 4 general, with a(n) intravenous induction 77 yo male at high stroke risk who has a history of hematuria scheduled for a Watchman procedure. He has a history of complete heart block s/p SJM dual- chamber pacemaker in May 2012, non ischemic cardiomyopathy (most recent LVEF 55% TTE July 2022), LBBB, with an upgrade to a INVENTORY REPRESENTATIVE-D (new generator, capped RV pacing lead, new RV high voltage lead, new CS lead) in February 2013, and a generator replacement in March 2016, nonobstructive CAD, and HTN who most recently had a generator change on 02/17/23. Last device interrogation show that the atrial lead threshold has been known to be high for severalyears and there has been no recent change. Atrial Pacin% BVentricular Pacin% Echo 07/2022 Interpretation Summary Left ventricular systolic function is normal. The left ventricular ejection fraction is 55% by Ramirez's biplane. Right ventricular systolic function is normal. No significant valvular disease noted on this study. The diameter at the level of the sinuses of Valsalva is 4.2 cm. Assessment and Plan 78 y/o male ASA 3 GA ETT halima. Standard ASA monitors plus arterial line. Risk and benefits discussed with patient and family members. Discussion regarding EILEEN and treatmentas well as PONV and pain management post procedure. Blood transfusions were discussed but unlikely to occur. The patient was informed of the risks, benefits and alternatives of anesthesia. These risks included, but were not limited to, post-operative nausea and/or vomiting, pain, sore throat, dental/lip trauma, and other rare but serious complications such as major organ damage, awareness, severe allergicreactions, position-related nerve injuries, and need blood transfusions. Patient understood; all questions were sought, answered and the patient agreed to proceed. Consent was signed and placed in chart. Region - Other Informed Consent: Anesthetic plan and risks discussed with patient. Use of blood products discussed with patient who consented to blood products. Plan discussed with RECORD PRESS TENDER. Anesthesia Screening documented in this encounter Plan of Treatment Upcoming Encounters Date Type Department Care Team (Late st Contact Info) Description 02/26/2024 10:00 AM [facility] Hospital Encounter [place] [address] Arrived documented as of this encounter Visit Diagnoses Not on filedocumented in this encounter Administered Medications Inactive Administered Medications - up to 3 most recent administrations Medication Order MAR Action Action Date Dose Rate Site ceFAZolin (Ancef) (100 mg/mL) injection solution Intravenous, PRN, Starting on Tasneem 07/13/23 at 0805, Until Tasneem 07/13/23 at 1012, Anesthesia Intra-op, Routine Given 07/13/2023 8:05 AM EDT 2 g ePHEDrine sulfate (5 mg/mL) multi-dose injection Intravenous, PRN, Starting on Tasneem 07/13/23 at 0852, Until Tasneem 07/13/23 at 1012, Anesthesia Intra-op, Routine Given 07/13/2023 8:52 AM EDT 5 mg fentaNYL (pf) (50 mcg/mL) multi-dose injection Intravenous, PRN, Starting on Tasneem 07/13/23 at 0745, Until Tasneem 07/13/23 at 1012, Anesthesia Intra-op, Routine Given 07/13/2023 8:29 AM EDT 50 mcg Given 07/13/2023 7:45 AM EDT 50 mcg heparin (porcine) (1,000 units/mL) injection Intravenous, PRN, Starting on Tasneem 07/13/23 at 0827, Until Tasneem 07/13/23 at 1012, Anesthesia Intra-op, Routine Given 07/13/2023 9:36 AM EDT 2,000 Uni ts Given 07/13/2023 9:19 AM EDT 1,000 Units Given 07/13/2023 9:10 AM EDT 1,500 Units lidocaine (pf) (Xylocaine) (20 mg/mL) 2% injection syringe Intravenous, PRN, Starting on Tasneem 07/13/23 at 0745, Until Tasneem 07/13/23 at 1012, Anesthesia Intra-op, Routine Given 07/13/2023 7:45 AM EDT 50 mg ondansetron (pf) (Zofran) (2 mg/mL) injection Intravenous, PRN, Starting on Tasneem 07/13/23 at 0945, Until Tasneem 07/13/23 at 1018, Anesthesia Intra-op, Routine Given 07/13/2023 9:45 AM EDT 4 mg propofoL (Diprivan) 10 mg/mL bolus injection (Anesthesia) Intravenous, PRN, Starting on Tasneem 07/13/23 at 0745, Until Tasneem 07/13/23 at 1012, Anesthesia Intra-op Given 07/13/2023 7:49 AM EDT 50 mg Given 07/13/2023 7:45 AM EDT 200 mg rocuronium (Zemuron) (10 mg/mL) multi-dose injection Intravenous, PRN, Starting on Tasneem 07/13/23 at 0748, Until Tasneem 07/13/23 at 1012, Anesthesia Intra-op, Routine Given 07/13/2023 9:10 AM EDT 20 mg Given 07/13/2023 8:42 AM EDT 20 mg Given 07/13/2023 8:20 AM EDT 30 mg sugammadex (Bridion) 100 mg/mL injection Intravenous, PRN, Starting on Tasneem 07/13/23 at 0945, Until Tasneem 07/13/23 at 1018, Anesthesia Intra-op, Routine Given 07/13/2023 9:45 AM EDT 340 mg documented in this encounter Care Teams Sports Complex Attendant Relationship Specialty Start Date End Date Andrew Siu DNP [address] [place], [place] [address] [address] PCP - General Family Medicine 08/08/22 documented as of this encounter
--- OUTSIDE RECORDS SUMMARY | 2023-12-11 18:42 | XMS_ITS | Encounter Summary ---
Author Organization [facility] [place] [address] Care Team Providers Care Design Technology Teacher Name Role Phone Andrew Siu DNP Primary Care Provider [phone] Encounter Details Date Type Department Care Team (Late st Contact Info) Description 07/19/2023 Telephone Cardiology at [address] [phone] Darrel Matthews MD [facility] [place] [address] Social History Tobacco Use Types Packs/Day Years [...] Telephone Encounter - Darrel Matthews MD - 07/19/2023 11:52 AM EDT 77yo Male with Hx of PAF who underwent LAAO-WM on 07/12. Procedure was successful without apparent complication. Patient noted red blood tinged stool day 1 post procedure and was instructed to d/c clopidogrel andstart ASA 81 mg (see Dr. Christy's phone note). Patient called to let me know that the bleeding had subsided. The patient was instructed to restart the clopidogrel. If bleeding recurs he knows to stop and to give us a call. Brewster MD documented in this encounter Plan of Treatment Upcoming Encounters Date Type Department Care Team (Late st Contact Info) Description 02/26/2024 10:00 AM EST Hospital Encounter Non-[place] [address] Arrived documented as of this encounter Visit Diagnoses Not on filedocumented in this encounter Care Teams Design Technology Teacher Relationship Specialty Start Date End Date Andrew Siu DNP [address] [place] [id number] PCP - General Family Medicine 08/08/22 documented as of this encounter
--- OUTSIDE RECORDS SUMMARY | 2023-12-11 18:42 | XMS_ITS | Encounter Summary ---
Author Organization [facility] Address [facility] [place] [address] Care Team Providers Care Gun Club Manager Name Role Phone Andrew Siu DNP Primary Care Provider [phone] Encounter Details Date Type Department Care Team (Late st Contact Info) Description 06/14/2023 1:40 PM EDT Office Visit Cardiology at [address] [address] Darrel Matthews MD [facility] [place] [address] PAF (paroxysmal atrial fibrillation) Social History Tobacco Use Types Packs/Day Years Used Date Smoking Tobacco: Former Cigarettes Q uit: 01/12/1996 Smokeless Tobacco: Never Comments:stopped 15 years Alcohol Use Standard Drinks/Week Comments Yes 1 (1 standard drink = 0.6 oz pur e alcohol) 1 drink a day [facility] Inpatient Questions Answer Date Recorded Does [...] Sign Reading Time Taken Comments Blood Pressure 133/84 06/14/2023 1:27 PM EDT Pulse 64 06/14/2023 1:27 PM EDT Temperature - - Respiratory Rate - - Oxygen Saturation 97% 06/14/2023 1:27 PM EDT Inhaled Oxygen Concentration - - Weight 114.9 kg (253 lb 6.4 oz) 06/14/2023 1:27 PM EDT Height 198.1 cm (6' 6) 06/14/2023 1:27 PM EDT Body Mass Index 29.28 06/14/2023 1:27 PM EDT documented in this encounter Progress Notes * Darrel Matthews MD - 06/14/2023 1:40 PM EDT 77yo Male with Hx of PAF with history of hematuia referred by Chivo ESCALONA for LAAO Focused Problem List PAF Noted on Device checked 04/07/2023 Device Evaluation [place] <1% Multiple events noted with longest being 2 hours 23 Minutes Started on Apixaban Hematuria occurred within a day Currently on no anti-thrombotic (OAC or aspirin) Non-Ischemic Cardiomyopathy with recovered LV Function Initially presenting in 2001 (See Clinic [facility] Note 02/08/2023) 02/19/2013 ICD with resynchronization TTE Echo 07/2022 Interpretation Summary Left ventricular systolic function is normal. The left ventricular ejection fraction is 55% by Ramirez's biplane. Right ventricular systolic function is normal. No significant valvular disease noted on this study. The diameter at the level of the sinuses of Valsalva is 4.2 cm Cardiac ROS: Patient specifically denies symptoms consistent with right or left ventricular failure. Palpitations, pre-syncope or syncope. Angina or anginal equivalents. Neuro ROS: Patient specifically denies symptoms consistent with TIA/Stroke Hx of PE classified as provoked Hematuria Long standing >3 years managed by Urology at outside institution. 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 There is a normal S1 followed by a physiologically split S2 without, S3, S4, pathologic rub or murmur. Abdomen: Rotund, non-tender without palpable liver, spleen or masses LE: Without edema, with good distal pulses Neuro: Non-Focal Assessment and Plan 77 yo male at high stroke risk who has a history of hematuria providing a rationale for non-pharmacologic stroke prevention strategy. Using SDM I outlined to the patient the rationale for ANI-C In addition, I reviewed the procedural risk including access site bleeding requiring blood transfusion and/or surgery, ARAVIND, Stroke, cardiac perforation requiring percutaneous drainage and/or emergent 'openheart' surgery and device embolization requiring 'open heart' and/or 'open belly' surgery. The patient appears to understand and wish to proceed with work-up. Schedule for ANI-C Patient is NOT on any OAC SDM by Tereza F/U imaging CT or TALA Appropriate for same day D/C Darrel Matthews M.D., F.A.C.C. gold miner blasting Pager [phone] 60 minute encounter including chart review, image analysis, clinic visit and documentation documented in this encounter Plan of Treatment Upcoming Encounters Date Type Department Care Team (Late st Contact Info) Description 02/26/2024 10:00 AM [facility] Hospital Encounter Non[place] [address] Arrived documented as of this encounter Visit Diagnoses Diagnosis PAF (paroxysmal atrial fibrillation) Atrial fibrillation documented in this encounter Care Teams Gun Club Manager Relationship Specialty Start Date End Date Andrew Siu DNP [address] [place] [address] PCP - General Family Medicine 08/08/22 documented as of this encounter
--- OUTSIDE RECORDS SUMMARY | 2023-12-11 18:43 | XMS_ITS | Encounter Summary ---
Author Organization [facility] [place] [address] Care Team Providers Care Medical And Scientific Illustrator Name Role Phone Carlos Valdez MD Primary Care Provider [phone] Reason for Visit * Reason Onset Date Comments Medication Refill 06/08/2022 Carvedilol Encounter Details Date Type Department Care Team (Late st Contact Info) Description 06/08/2022 Refill Cardiology at [address] [phone] Xin Grewal, [facility] [address] Medication Refill (Carvedilol) Social History Tobacco Use Types Packs/Day Years [...] st Contact Info) Description 02/26/2024 10:00 AM [facility] Hospital Encounter Non-Invasive [place] [phone] Arrived documented as of this encounter Visit Diagnoses Not on filedocumented in this encounter Care Teams Medical And Scientific Illustrator Relationship Specialty Start Date End Date Carlos Valdez MD [address] [place] [address] PCP - General 03/25/11 08/07/22 documented as of this encounter
--- OUTSIDE RECORDS SUMMARY | 2023-12-11 18:43 | XMS_ITS | Encounter Summary ---
[place] [address] Care Team Providers Care Insurance Appraiser Name Role Phone Andrew Siu DNP Primary Care Provider [phone] Encounter Details Date Type Department Care Team (Latest Contact Info) Description 08/08/2022 3:00 PM EDT Office Visit Cardiology at [address] [phone] Izzy Holt, RN Biventricular implantable cardioverter-defibrill ator in situ- [...] Sign Reading Time Taken Comments Blood Pressure 133/80 08/08/2022 2:50 PM EDT Pulse 66 08/08/2022 2:50 PM EDT Temperature - - Respiratory Rate - - Oxygen Saturation 96% 08/08/2022 2:5 0 PM EDT Inhaled Oxygen Concentration - - Weight 111.8 kg (246 lb 6.4 oz) 08/08/2022 2:50 PM EDT Height 198.1 cm (6' 6) 08/08/2022 2:50 PM EDT patient reported Body Mass Index 28.47 08/08/2022 2:50 PM EDT documented in this encounter Progress Notes * Nirali Domingo RN - 08/08/2022 3:00 PM EDT Images from the original note were not included. Clinical Electrophysiology Device Service Note Pacemaker Clinic Follow-Up Jimmie Mccauley is a 77 y.o. male who presents today in the device clinic for CLOTHES SEPARATOR- D programming evaluation, he is seeing Angélica Grewal APRN to follow. He denies further shortness of breath with activity. Hx: He had an elective generator replacement done secondary to a recall 03/25/2016. He originally had a pacemaker implanted 06/14/2012 for CHB. This was completed at [facility] in [place], [place]. He underwent upgrade to CLOTHES SEPARATOR-D on 02/18/2013 for CHF, CM, ventricular dyssynchrony. Denies any issues or symptoms today in clinic. PACEMAKER DEPENDENT Director Global Strategic Publisher Sales: Brady Ugarte MD Final Parameters at Implant: (Old) Ventricular electrode: [employer] Model# 7122Q-58 cm Serial #[id number] Implanted 02/18/2013 (old) Atrial electrode: mDialogtronic, Model # 5568-52 cm Serial # [id number] Implanted 06/14/2012 (old) Coronary sinus electrode: [employer] 1458Q/86 Serial number [id number] Implanted 02/18/2013 New Pulse Generator: [employer] [id number] Serial number [id number] Implanted 03/25/2016 Follow Up Today: Settings: Bi-V DDDR 60/130/130, PAV 200 ms, ROSAURA 150 ms, LV->RV 30 ms, mode switch 180 bpm Underlying rhythm: Sinus rate 50 bpm with CHB no ventricular escape >30 bpm Presenting: AP/BIVP Heart rate histograms: Left shifted Since July 08, 2022 Atrial lead impedance: 400 ohms RV lead impedance: 360 ohms LV lead impedance: 680 ohms M3-M2 RV shock impedance 72 ohms RV to Can Lead impedance trends stable P wave: 2.1 mV R wave: None >30 bpm Atrial capture threshold: 1.0 @ 1.0 ms Chronically elevated in former pacemaker as well. A Cap Confirm was NOT recommended RV capture threshold: 0.75 V at 0.5 ms. RV Cap Confirm recommended LV capture threshold: 1.0 V at 0.8 ms M3-M2. LV Cap Confirm recommended. Chronically elevated Pacing percentages: AP 82 %; ASSISTANT MEN'S LACROSSE COACH 98 % Mode switch episodes: 0% VHR: 1- NSVT episode lasting 10 sec at 285 bpm 07/09/2022 - he denies feeling symptomatic. PVC: 1.4%, 58K counts Corvue: no impedance episodes recorded Battery: 31 uA, 9%, est 4.8 months to MARY BETH Charge time: 11.1 sec 07/30/2022 Changes made this session: iterative changes made to the device for testing purposes. Incision assessment: L chest healed, device is prominent. Skin intact and no signs of erosion Plan: Schedule MARY BETH workup due to battery stating 4.7 months remaining Provider: Nirali Domingo, RN and Izzy Holt RN Attending: Dr. Martinez documented in this encounter Plan of Treatment Upcoming Encounters Date Type Department Care Team (Late st Contact Info) Description 02/26/2024 10:00 AM EST Hospital Encounter [place] [address] Arrived documented as of this encounter Visit Diagnoses Diagnosis Biventricular implantable cardioverter-defibrillator in situ- [facility] Andrew documented in this encounter Care Teams Insurance Appraiser Relationship Specialty Start Date End Date Andrew Siu DNP [address] [place] [address] PCP - General Family Medicine 08/08/22 documented as of this encounter
--- OUTSIDE RECORDS SUMMARY | 2023-12-11 18:43 | XMS_ITS | Encounter Summary ---
[place] [address] Care Team Providers Care Fine Sander Name Role Phone Andrew Siu DNP Primary Care Provider [phone] Reason for Visit * Reason Onset Date Comments Pre Procedure Call 02/01/2023 Encounter Details Date Type Department Care Team (Late st Contact Info) Description 02/01/2023 Telephone Cardiology at [address] [phone] Delicia Hidalgo, RN Pre Procedure Call Social History Tobacco Use Types [...] encounter Miscellaneous Notes * Telephone Encounter - Delicia Hidalgo RN - 02/01/2023 7:57 AM ESTSummary: Pre Procedure Call; Generator replacement SHARRON DIRECTOR INTELLIGENCE ANALYSIS PROGRAMS COORDINATION CHECKLIST Patient Name: Jimmie Mccauley Patient Performing Specialty Therapist: Choco Euceda Referring Provider: Xin Lux Date of Procedure: 02/17/23 Arrival Time/ Case Time: 12:30 pm / 1:30 pm Check In Location: Process Improvement Specialist Desk 4W Date Patient was Called: 02/01/23 Procedure: Generator replacement Company: [employer] Type: TABBER-D Orders: Yes Lab Orders: Yes-signature Anesthesia: MOD Discharge Plan/Disposition: SAME DAY DISCHARGE Med Instructions: Anticoag Type: N/A HIBICLENS?: Yes Contrast Allergy: N/A DM: N/A Coming from an assisted living facility?: No Any recent S/S of infection (fevers, on oral ABX)?: No Other Instructions: Clear liquids (water, apple juice, duane kira) OK up until 2 hrs prior to procedure, nothing to eatafter midnight on day of procedure.Same Day will call 02/16. Will be going home same day , understands that they will need armored truck driver on day of discharge documented in this encounter Plan of Treatment Upcoming Encounters Date Type Department Care Team (Late st Contact Info) Description 02/26/2024 10:00 AM EST Hospital Encounter Non-Invasive [place] [phone] Arrived documented as of this encounter Visit Diagnoses Not on filedocumented in this encounter Care Teams Fine Sander Relationship Specialty Start Date End Date Andrew Siu DNP [address] [place] [id number] PCP - General Family Medicine 08/08/22 documented as of this encounter
--- OUTSIDE RECORDS SUMMARY | 2023-12-11 18:43 | XMS_ITS | Encounter Summary ---
Author Organization Formerly [facility] Address [facility] [place] [address] Care Team Providers Care Clinical Nurse Educator Name Role Phone Carlos Valdez MD Primary Care Provider [phone] Encounter Details Date Type Department Care Team (Latest Contact Info) Description 09/21/2021 9:18 AM EDT - 09/21/2021 11:59 PM EDT Hospital Encounter Non[place] [address] Choco Euceda MD [facility] [place] [place] [address] Cardiomyopathy, primary Discharge Disposition: Home Social History Tobacco Use [...] Sig Dispensed Refills Start Date End Date losartan (COZAAR) 100 mg TabletIndications:Chron ic systolic heart failure Take 1 tablet by mouth daily. 90 tablet 01/31/2021 amLODIPine (Norvasc) 5 mg Tablet Take 1 tablet by mouth daily. 90 tablet 3 04/30/2020 multivitamin (THERAGRAN) Tablet Take 1 tablet by mouth daily. whjoqpz-ythmliwraqejn-d affeine (EXCEDRIN MIGRAINE) 250-250-65 mg per tablet Take 1 tablet by mouth every 6 hours as needed. ibuprofen (ADVIL;MOTRIN) 200 mg tablet Take 400 mg by mouth every 6 hours as needed. hydroCODone-acetaminoph en (VICODIN) 5-500 mg per tablet Take 1 tablet by mouth every 6 hours as needed. sildenafil (VIAGRA) 100 mg tablet Take 1 tablet by mouth once as needed. 10 tablet 0 01/11/2011 zolpidem (AMBIEN) 10 mg tabletIndications:Insom rik Take 1 tablet by mouth nightly. 30 tablet 0 01/11/2011 carvediloL (Coreg) 6.25 mg Tablet TAKE 1 TABLET BY MOUTH TWICE DAILY WITH MEALS 180 tablet 3 05/06/2020 06/08/2022 documented as of this encounter Plan of Treatment Upcoming Encounters Date Type Department Care Team (Late st Contact Info) Description 02/26/2024 10:00 AM EST Hospital Encounter Non[place] [address] Arrived Pending Results Name Type Priority Associated Diagnoses Date/Time Cardiac Device Check - Remote Scheduled Implantable Cardiac Device Routine Cardiomyopathy, primary 09/21/2021 9:19 AM EDT Scheduled Orders Name Type Priority Associated Diagnoses Order Schedule Cardiac Device Check - Remote Scheduled Implantable Cardiac Device Routine Cardiomyopathy, primary 1 Occurrences starting 09/21/2021 until 09/21/2021 documented as of this encounter Visit Diagnoses Diagnosis Cardiomyopathy, primary Other primary cardiomyopathies documented in this encounter Care Teams Clinical Nurse Educator Relationship Specialty Start Date End Date Carlos Valdez MD [address] [facility] [address] [place] [address] PCP - General 03/25/11 08/07/22 documented as of this encounter
--- OUTSIDE RECORDS SUMMARY | 2023-12-11 18:43 | XMS_ITS | Encounter Summary ---
[place] [address] Care Team Providers Care Drawing Tender Name Role Phone Andrew Siu DNP Primary Care Provider [phone] Reason for Visit * Reason Onset Date Comments Pre Procedure Call 01/05/2023 Encounter Details Date Type Department Care Team (Late st Contact Info) Description 01/05/2023 Telephone Cardiology at [address] [phone] Delicia Hidalgo, RN Pre Procedure Call Social [...] Telephone Encounter - Delicia Hidalgo RN - 01/05/2023 5:16 PM EDTSummary: Pre Procedure Call: Generator Replacement SHARRON ATTORNEY RECRUITER COORDINATION CHECKLIST Patient Name: Jimmie Mccauley Patient Performing Colored Leather Setter: Choco Euceda Referring Provider: Xin Lux Date of Procedure: 01/23/23 Arrival Time/ Case Time: 12:00 pm / 1:00 pm Check In Location: Derrick Boat Runner Desk 4W Date Patient was Called: 01/06/23 Procedure: Generator replacement Company: [employer] Type: SHORT HAUL DRIVER-D Orders: Yes Lab Orders: Yes- lab orders pended for Xin Lux's signature Anesthesia: MOD Discharge Plan/Disposition: SAME DAY DISCHARGE [...] on day of procedure.Same Day will call 01/20. Will be going home same day , understands that they will need courtesy car driver on day of discharge documented in this encounter Plan of Treatment Upcoming Encounters Date Type Department Care Team (Late st Contact Info) Description 02/26/2024 10:00 AM [facility] Hospital Encounter Non-[place]vasive [place] [address] Arrived documented as of this encounter Visit Diagnoses Not on filedocumented in this encounter Care Teams Drawing Tender Relationship Specialty Start Date End Date Andrew Siu DNP [address] [place] [phone] PCP - General Family Medicine 08/08/22 documented as of this encounter
--- OUTSIDE RECORDS SUMMARY | 2023-12-11 18:43 | XMS_ITS | Encounter Summary ---
[place] [address] Care Team Providers Care Tow Mate Name Role Phone Andrew Siu DNP Primary Care Provider [phone] Encounter Details Date Type Department Care Team (Latest Contact Info) Description 08/08/2022 Travel Social History Tobacco Use Types Packs/Day [...] AM EST Hospital Encounter [place] [address] Arrived documented as of this encounter Visit Diagnoses Not on filedocumented in this encounter Care Teams Tow Mate Relationship Specialty Start Date End Date Andrew Siu DNP [address] [place] [id number] PCP - General Family Medicine 08/08/22 documented as of this encounter
--- OUTSIDE RECORDS SUMMARY | 2023-12-11 18:43 | XMS_ITS | Encounter Summary ---
[place] [address] Care Team Providers Care Perforator Operator Oil Well Name Role Phone Andrew Siu DNP Primary Care Provider [phone] Reason for Visit * Reason Onset Date Comments Follow-up 08/18/2022 Overnight oximet ry Encounter Details Date Type Department Care Team (Late st Contact Info) Description 08/18/2022 Telephone Cardiology at [address] [phone] Brunilda Richardson, RN Follow-up (Overnight oximetry) Social History Tobacco Use Types Packs/Day Years [...] encounter Miscellaneous Notes * Telephone Encounter - Brunilda Richardson RN - 08/18/2022 4:47 PM EDT Call placed to pt to see what company he knows is close to him who would be able to do the [facility]xim[facility]. [facility] [employer] He knows where the [facility] office is in [place] (phone [phone], ). Order, Form for [employer], and demographics faxed to the [facility] office in [place]. Pt notified of the above, he is to call if he has not heard form them by endo monday, next week. Informed that the person at the [place] office is away this week. Aki from the [place] office states her calls have been forwarded to his office while she is away. Pt is otherwise to call the development writer to let us know if he has not gotten results a week after he has completed the test. Pt verbalized good understanding of the current POC. * Telephone Encounter - Brunilda Richardson RN - 08/18/2022 4:46 PM EDT ----- Message from Xin Grewal APRN sent at 08/08/2022 5:36 PM EDT ----- Brunilda, Can you arrange overnight ox please - order is in place [facility] is preferred vendor locale [facility] documented in this encounter Plan of Treatment Upcoming Encounters Date Type Department Care Team (Late st Contact Info) Description 02/26/2024 10:00 AM [facility] Hospital Encounter Non[place] [address] Arrived documented as of this encounter Visit Diagnoses Not on filedocumented in this encounter Care Teams Perforator Operator Oil Well Relationship Specialty Start Date End Date Andrew Siu DNP [address] [place] [id number] PCP - General Family Medicine 08/08/22 documented as of this encounter
--- OUTSIDE RECORDS SUMMARY | 2023-12-11 18:43 | XMS_ITS | Encounter Summary ---
[place] [address] Care Team Providers Care Bunker Worker Name Role Phone Carlos Valdez MD Primary Care Provider [phone] Encounter Details Date Type Department Care Team (Late st Contact Info) Description 05/25/2021 Orders Only Cardiology at [address] [phone] Social History Tobacco Use Types Packs/Day Years [...] AM EST Hospital Encounter Non-[place] [phone] Arrived documented as of this encounter Procedures Procedure Name Priority Date/Time Associated Diagnosis Comments CARDIAC DEVICE CHECK - REMOTE SCHEDULED Routine 05/25/2021 3:14 AM EST documented in this encounter Results * Cardiac device check - Remote Scheduled (05/25/2021 3:14 AM EST) Implantable Pulse Generator Type Cardiac Resynchronization Therapy - Defibrillator IDCO Implantable Pulse Generator Model 3365-40 IDCO Implantable Pulse Generator Serial Number [id number] IDCO Implantable Pulse Generator Seasonal Sales Associate [facility] IDCO Implantable Pulse Generator Implant Date IDCO Implantable Pulse Generator Implanter N/A IDCO Implantable Pulse Generator Implanter Contact Information N/A IDCO Implantable Pulse Generator Implanting Facility N/A IDCO Implantable Lead Special Function Sense and Pace in RA IDCO Implantable Lead Model 5568 IDCO Implantable Lead Serial Number [id number] IDCO Implantable Lead Seasonal Sales Associate [employer] IDCO Implantable Lead Implant Date IDCO Implantable Lead Polarity Type Bipolar Lead IDCO Implantable Lead Location Right Atrium IDCO Implantable Lead Connection Status Connected IDCO Implantable Lead Special Function Pace in LV IDCO Implantable Lead Model 1458Q Quartet(TM) IDCO Implantable Lead Serial Number [id number] IDCO Implantable Lead Seasonal Sales Associate [facility] IDCO Implantable Lead Implant Date IDCO Implantable Lead Polarity Type Quadripolar Lead IDCO Implantable Lead Location Left Ventricle IDCO Implantable Lead Connection Status Connected IDCO Implantable Lead Special Function Defibrillation in RV IDCO Implantable Lead Model 7122Q Durata(TM) IDCO Implantable Lead Serial Number [id number] IDCO Implantable Lead Seasonal Sales Associate [facility] IDCO Implantable Lead Implant Date IDCO Implantable Lead Polarity Type Bipolar Lead IDCO Implantable Lead Location Right Ventricle IDCO Implantable Lead Connection Status Connected IDCO Date Time Interrogation Session [id number] IDCO Type Interrogation Session Remote Scheduled IDCO Re-programmed During Session NO IDCO Date Time Previous Interrogation Session [id number] IDCO Clinician Name N/A IDCO Clinician Contact Information N/A IDCO Clinic Name N/A IDCO Battery Date Time of Measurements [id number] IDCO Battery Status Middle of Service IDCO Battery Voltage 2.84 V IDCO Battery Remaining Longevity 13 mo IDCO Battery Remaining Percentage 28.0 % IDCO Battery MERCHANDISE WORKER Trigger When current voltage < 2.59 volts IDCO Capacitor Charge Type Reformation IDCO Capacitor Last Charge Date Time [id number] IDCO Capacitor Charge Time 10.0 s IDCO Capacitor Charge Energy 40 J IDCO Lead Channel Measurements Date and Time Start [id number] IDCO Lead Channel Measurements Date and Time End [id number] IDCO Lead Channel Sensing Intrinsic Amplitude 2.3 mV IDCO Lead Channel Sensing Polarity Bipolar IDCO Lead Channel Pacing Threshold Amplitude 1.25 V IDCO Lead Channel Pacing Threshold Pulse Width 1.0 ms IDCO Lead Channel Pacing Threshold Polarity Bipolar IDCO Lead Channel Pacing Threshold Measurement Method Marketing Proposal Coordinator Manual IDCO Lead Channel Impedance Value 340 Ohm IDCO Lead Channel Impedance Polarity Bipolar IDCO Lead Channel Status Null IDCO Lead Channel Measurements Date and Time Start [id number] IDCO Lead Channel Measurements Date and Time End [id number] IDCO Lead Channel Sensing Intrinsic Amplitude 12.0 mV IDCO Lead Channel Sensing Polarity Bipolar IDCO Lead Channel Pacing Threshold Amplitude 0.75 V IDCO Lead Channel Pacing Threshold Pulse Width 0.5 ms IDCO Lead Channel Pacing Threshold Polarity Bipolar IDCO Lead Channel Pacing Threshold Measurement Method Device Automatic IDCO Lead Channel Impedance Value 360 Ohm IDCO Lead Channel Impedance Polarity Bipolar IDCO Lead Channel Status Null IDCO Lead Channel Measurements Date and Time Start [id number] IDCO Lead Channel Measurements Date and Time End IDCO Lead Channel Pacing Threshold Amplitude 0.75 V IDCO Lead Channel Pacing Threshold Pulse Width 0.8 ms IDCO Lead Channel Pacing Threshold Polarity Bipolar IDCO Lead Channel Pacing Threshold Measurement Method Marketing Proposal Coordinator Manual IDCO Lead Channel Impedance Value 760 Ohm IDCO Lead Channel Impedance Polarity Bipolar IDCO Lead Channel Status Null IDCO Lead High Voltage Channel Measurement Type Shock IDCO Lead High Voltage Channel Date Time IDCO Lead High Voltage Channel Impedance 65 Ohm IDCO Lead High Voltage Channel Status Null IDCO Lead High Voltage Channel Measurement Type Low Voltage Pulse IDCO Lead High Voltage Channel Date Time IDCO Lead High Voltage Channel Impedance 65 Ohm IDCO Lead High Voltage Channel Status Null IDCO CATTLE DRIVER LV-RV Delay 30 ms IDCO Ventricular chambers paced during CATTLE DRIVER pacing. BiV IDCO Magnet Response Normal IDCO Lead Channel Setting Sensing Polarity Bipolar IDCO Lead Channel Setting Sensing Polarity Bipolar IDCO Lead Channel Setting Sensing Anode Location Right Atrium IDCO Lead Channel Setting Sensing Anode Location Right Ventricle IDCO Lead Channel Setting Sensing Anode Terminal Ring IDCO Lead Channel Setting Sensing Anode Terminal Ring IDCO Lead Channel Setting Sensing Cathode Location Right Atrium IDCO Lead Channel Setting Sensing Cathode Location Right Ventricle IDCO Lead Channel Setting Sensing Cathode Terminal Tip IDCO Lead Channel Setting Sensing Cathode Terminal Tip IDCO Lead Channel Setting Sensing Adaptation Mode Adaptive IDCO Lead Channel Setting Sensing Sensitivity 0.3 mV IDCO Lead Channel Setting Sensing Adaptation Mode Adaptive IDCO Lead Channel Setting Sensing Sensitivity 0.5 mV IDCO Lead Channel Setting Pacing Amplitude 3.5 V IDCO Lead Channel Setting Pacing Amplitude 2.0 V IDCO Lead Channel Setting Pacing Amplitude 2.0 V IDCO Lead Channel Setting Pacing Pulse Width 1.0 ms IDCO Lead Channel Setting Pacing Pulse Width 0.5 ms IDCO Lead Channel Setting Pacing Pulse Width 0.8 ms IDCO Lead Channel Setting Pacing Polarity Bipolar IDCO Lead Channel Setting Pacing Polarity Bipolar IDCO Lead Channel Setting Pacing Polarity Bipolar IDCO Lead Channel Setting Pacing Anode Location Right Atrium IDCO Lead Channel Setting Pacing Anode Location Right Ventricle IDCO Lead Channel Setting Pacing Anode Location Left Ventricle IDCO Lead Channel Setting Pacing Anode Terminal Ring IDCO Lead Channel Setting Pacing Anode Terminal Ring IDCO Lead Channel Setting Pacing Anode Terminal Ring IDCO Lead Channel Setting Sensing Cathode Location Right Atrium IDCO Lead Channel Setting Sensing Cathode Location Right Ventricle IDCO Lead Channel Setting Sensing Cathode Location Left Ventricle IDCO Lead Channel Setting Sensing Cathode Terminal Tip IDCO Lead Channel Setting Sensing Cathode Terminal Tip IDCO Lead Channel Setting Sensing Cathode Terminal Ring2 IDCO Lead Channel Setting Pacing Capture Mode Monitor IDCO Lead Channel Setting Pacing Capture Mode Adaptive IDCO Lead Channel Setting Pacing Capture Mode Fixed Pacing IDCO [facility]_SET_LEAD HVCHNL_SHOCK_VEC TOR_ANODE_LOCATI ON_1 Right Ventricle IDCO [facility]_SET_LEAD HVCHNL_SHOCK_VEC TOR_ANODE_ELECTR ODE_1 Coil IDCO [facility]_ID[facility]_SET_LEAD HVCHNL_SHOCK_VEC TOR_CATHODE_LOCA TION_1 Other IDCO [facility]_ID[facility]_SET_LEAD HVCHNL_SHOCK_VEC TOR_CATHODE_ELEC TRODE_1 Can IDCO Grabiel Setting Mode (NBG Code) DDDR IDCO Grabiel Setting Mode (Vendor Specific) DDDR IDCO Grabiel Setting Lower Rate Limit 60 {beats} /min IDCO Grabiel Setting Maximum Tracking Rate 130 {beats} /min IDCO Grabiel Setting Maximum Sensor Rate 130 {beats} /min IDCO Grabiel Setting ROSAURA Delay High 100 ms IDCO Grabiel Setting ROSAURA Delay 150 ms IDCO Grabiel Setting PAV Delay High 100 ms IDCO Grabiel Setting PAV Delay 200 ms IDCO Grabiel Setting AT Mode Switch Mode DDIR IDCO Grabiel Setting AT Mode Switch Rate 180 {beats} /min IDCO Tachy Therapy Setting Ventricular Status On IDCO Zone Setting Vendor Type Category VT1 IDCO Zone Setting Type Category VT IDCO Zone Setting Status Active IDCO Zone Setting Detection Interval 350 ms IDCO Zone Setting Vendor Type Category VT2 IDCO Zone Setting Type Category VT IDCO Zone Setting Status Inactive IDCO Zone Setting Vendor Type Category VF IDCO Zone Setting Type Category VF IDCO Zone Setting Status Active IDCO Zone Setting Detection Interval 300 ms IDCO Zone Setting Shock Energy 36.0 J IDCO Zone Setting Shock Energy 40.0 J IDCO Zone Setting Shock Energy 40.0 J IDCO Zone Setting Number of Shocks 1 {shocks } IDCO Zone Setting Number of Shocks 1 {shocks } IDCO Zone Setting Number of Shocks 4 {shocks } IDCO Statistic Date Time Start IDCO Statistic Date Time End IDCO Statistic Heart Rate Date Time Start IDCO Statistic Heart Rate Date Time End IDCO Statistic Atrial Heart Rate Mean 71 {beats} /min IDCO Statistic Atrial Heart Rate Max 280 {beats} /min IDCO Statistic Atrial Heart Rate Min 50 {beats} /min IDCO Statistic Ventricular Heart Rate Max 200 {beats} /min IDCO Statistic Ventricular Heart Rate Mean 71 {beats} /min IDCO Statistic Ventricular Heart Rate Min 50 {beats} /min IDCO Grabiel Statistic Date Time End IDCO Grabiel Statistic Date Time Start IDCO Grabiel Statistic RA Percent Paced 86.0 % IDCO Grabiel Statistic AP ASSISTANT RESEARCH SCIENTIST Percent 86.0 % IDCO Grabiel Statistic ASSISTANT RESEARCH SCIENTIST Percent 14.0 % IDCO Grabiel Statistic AP VS Percent 1.0 % IDCO Grabiel Statistic VS Percent 1.0 % IDCO Atrial Tachy Statistic Date Time End IDCO Atrial Tachy Statistic Date Time Start IDCO Atrial Tachy Statistic Maximum Mode Switch Duration 6 s IDCO Atrial Tachy Statistic Percent Time In Mode Switch 1 % IDCO Atrial Tachy Statistic Number Of Mode Switches 1 {switch es} IDCO Atrial Tachy Statistic Number Of Mode Switches Per Day 0 {switch es} IDCO Atrial Tachy Statistic AT/AF [place] Percent 0 % IDCO CATTLE DRIVER Statistic Date Time End IDCO CATTLE DRIVER Statistic Date Time Start IDCO CATTLE DRIVER Statistic CATTLE DRIVER Percent Paced 99.0 % IDCO Therapy Statistic Recent Date Time End IDCO Therapy Statistic Recent Date Time Start [id number] IDCO Therapy Statistic Recent Shocks Delivered 0 {shocks } IDCO Therapy Statistic Recent Shocks Aborted 0 {shocks } IDCO Therapy Statistic Recent ATP Delivered 0 {seq} IDCO Episode Statistic Recent Date Time End [id number] IDCO Episode Statistic Recent Date Time Start [id number] IDCO Episode Identifier [id number] IDCO Episode Date Time IDCO Episode Detection And Therapy Details AMS IDCO Episode Duration 6 s IDCO Episode Vendor Type Category AMS IDCO Episode Type Category Other IDCO Anatomical Region Laterality Modality Other 05/25/2021 3:14 AM EST Physician Cardiology IMPLANTABLE CARD IAC DEVICE documented in this encounter Visit Diagnoses Not on filedocumented in this encounter Care Teams Bunker Worker Relationship Specialty Start Date End Date Carlos Valdez MD [address] [place] [address] PCP - General 03/25/11 08/07/22 documented as of this encounter
--- OUTSIDE RECORDS SUMMARY | 2023-12-11 18:43 | XMS_ITS | Encounter Summary ---
Author Organization [facility] [address] Care Team Providers Care Teletypewriter Installer Name Role Phone Carlos Valdez MD Primary Care Provider [phone] Encounter Details Date Type Department Care Team (Late st Contact Info) Description 06/28/2021 Notes Only Cardiology at [address] [phone] Iman Balderas PA [facility] [place] [address] Social History Tobacco Use Types Packs/Day Years [...] as of this encounter Progress Notes * Iman Balderas PA - 06/28/2021 7:15 AM EDT Outpatient remote interrogation report: See full report as a linked pdf document Date of transmission: 06/28/21 Device senior software qa engineer: Szymanski Device type: SALES PROPERTY MANAGER-D Presenting rhythm: AP/BP AP 85% BiVP >99% Battery: 1.1 years Episodes: 1 tachy 06/27/21 5.5 seconds of VT up to 280 bpm, avg 265 bpm <1% AF 06/16/21 6:41PM duration- 5 minutes 46 seconds 06/16/21 7:27PM duration- 4 minutes 44 seconds 06/16/21 7:32PM duration- 44 seconds Normal device function with >99% BiV pacing One episode of NSVT POLA Cooper 06/28/2021 7:15 AM documented in this encounter Plan of Treatment Upcoming Encounters Date Type Department Care Team (Late st Contact Info) Description 02/26/2024 10:00 AM [facility] Hospital Encounter [place] [address] Arrived documented as of this encounter Visit Diagnoses Not on filedocumented in this encounter Care Teams Teletypewriter Installer Relationship Specialty Start Date End Date Carlos Valdez MD [address] [place] [address] PCP - General 03/25/11 08/07/22 documented as of this encounter
--- OUTSIDE RECORDS SUMMARY | 2023-12-11 18:43 | XMS_ITS | Encounter Summary ---
Author Organization [facility] [place] [address] Care Team Providers Care Php Software Engineer Name Role Phone Andrew Siu DNP Primary Care Provider [phone]- [phone] Encounter Details Date Type Department Care Team (Late st Contact Info) Description 01/05/2023 Orders Only Cardiology at [address] [phone] Xin Lux APRN [facility] [place] [address] Social History Tobacco Use Types Packs/Day Years [...] AM EST Hospital Encounter Non-[place] [phone] Arrived documented as of this encounter Visit Diagnoses Not on filedocumented in this encounter Care Teams Php Software Engineer Relationship Specialty Start Date End Date Andrew Siu DNP [address] [place] [address] PCP - General Family Medicine 08/08/22 documented as of this encounter
--- OUTSIDE RECORDS SUMMARY | 2023-12-11 18:43 | XMS_ITS | Encounter Summary ---
[place] [address] Care Team Providers Care Sleep Lab Technologist Name Role Phone Andrew Siu DNP Primary Care Provider [phone]- [phone] Reason for Visit * Reason Onset Date Comments Prior Authorization 12/05/2022 Home Health- Oxygen Encounter Details Date Type Department Care Team (Late st Contact Info) Description 12/05/2022 Telephone [place] [phone] Milli Song Prior Authorization (Home Health-Oxygen) Social History Tobacco Use Types Packs/Day Years [...] encounter Miscellaneous Notes * Telephone Encounter - Milli Song - 12/05/2022 8:41 AM EDT Voicemail from DANILO Andersen for [place] [employer] calling with regard to patient: Jimmie Mccauley - 45 He needs a prior auth submitted for his home oxygen A new authorization needs to be submitted to get supplies [facility] in [place], [place], because he does not want to use [employer]. She said to initiate, please call Utilization Mgmt ) [phone]; their fax number is [phone]. Our Prior Authorization Team that works VNA cases, does not work Home Health Oxygen requests. Sending above message to Xin Grewal via in-basket documented in this encounter Plan of Treatment Upcoming Encounters Date Type Department Care Team (Late st Contact Info) Description 02/26/2024 10:00 AM [facility] Hospital Encounter Non[place] [address] Arrived documented as of this encounter Visit Diagnoses Not on filedocumented in this encounter Care Teams Sleep Lab Technologist Relationship Specialty Start Date End Date Andrew Siu DNP [address] [place] [address] PCP - General Family Medicine 08/08/22 documented as of this encounter
--- OUTSIDE RECORDS SUMMARY | 2023-12-11 18:43 | XMS_ITS | Encounter Summary ---
[place] [address] Care Team Providers Care Finish Opener Name Role Phone Andrew Siu DNP Primary Care Provider Encounter Details Date Type Department Care Team (Latest Contact Info) Description 09/04/2022 10:00 AM EDT - 09/04/2022 11:59 PM EDT Hospital Encounter Non[place] [address] Discharge Disposition: Home Social History Tobacco Use [...] Sig Dispensed Refills Start Date End Date pravastatin (Pravachol) 20 mg tablet Take 20 [...] tablet 0 01/11/2011 carvediloL (Coreg) 6.25 mg tablet Take 1 tablet by mouth 2 times daily (with meals). 180 tablet 2 06/08/2022 02/08/2023 magnesium oxide (Mag-Ox) 400 mg (241.3 mg [...] [place] [facility] Encounter Non[place] [address] Arrived documented as of this encounter Procedures Procedure Name Priority Date/Time Associated Diagnosis Comments PRO ICD INTERROGATION REMOTE UP TO 90 DAYS Routine 07/08/2022 5:00 AM EDT documented in this encounter Results * Cardiac Device Check - Remote (07/08/2022 5:00 AM EDT) Anatomical Region Laterality Modality Other 07/08/2022 5:00 AM EDT Choco Euceda MD IMPLANTABLE CARDIAC DEVICE documented in this encounter Visit Diagnoses Not on filedocumented in this encounter Care Teams Finish Opener Relationship Specialty Start Date End Date Andrew Siu DNP [address] [place] [address] PCP - General Family Medicine 08/08/22 documented as of this encounter
--- OUTSIDE RECORDS SUMMARY | 2023-12-11 18:43 | XMS_ITS | Encounter Summary ---
[place] [address] Care Team Providers Care Packing Supervisor Name Role Phone Andrew Siu DNP Primary Care Provider [phone]- [phone] Encounter Details Date Type Department Care Team (Latest Contact Info) Description 01/06/2023 Travel Social History Tobacco Use Types Packs/Day [...] AM EST Hospital Encounter Non[place] [address] Arrived documented as of this encounter Visit Diagnoses Not on filedocumented in this encounter Care Teams Packing Supervisor Relationship Specialty Start Date End Date Andrew Siu DNP [address] [place] [phone] PCP - General Family Medicine 08/08/22 documented as of this encounter
--- OUTSIDE RECORDS SUMMARY | 2023-12-11 18:43 | XMS_ITS | Encounter Summary ---
[facility] [place] [address] Care Team Providers Care Oil Pipe Inspector Helper Name Role Phone Carlos Valdez MD Primary Care Provider [phone] Encounter Details Date Type Department Care Team (Latest Contact Info) Description 01/24/2022 1:30 PM EST Office Visit Cardiology at [address] [phone] Iman Balderas PA [facility] [place] [address] Biventricular implantable cardioverter-defibrill ator in situ- St [...] Sign Reading Time Taken Comments Blood Pressure 133/78 01/24/2022 1:23 PM EST Pulse 73 01/24/2022 1:23 PM EST Temperature - - Respiratory Rate - - Oxygen Saturation 97% 01/24/2022 1:23 PM EST Inhaled Oxygen Concentration - - Weight 106.6 kg (235 lb) 01/24/2022 1:23 PM EST Height 198.1 cm (6' 6) 01/24/2022 1:23 PM EST Body Mass Index 27.16 01/24/2022 1:23 PM EST documented in this encounter Progress Notes * Iman Balderas PA - 01/24/2022 1:30 PM EST Images from the original note were not included. Clinical Electrophysiology Device Service Note Jimmie Mccauley [id number] 01/21/2022 History: 76 yo M with a PMH of complete heart block s/p left-sided dual-chamber pacemaker on 06/14/2012 with upgrade to [facility] HIGH RISK CASE MANAGER-D on 02/18/2013 and pulse generator change on 03/25/2016; HFrEF (LVEF 55% post-HIGH RISK CASE MANAGER), nonobstructive CAD, and HTN who presents for device interrogation. On an December 2021 device interrogation, an episode of AF lasting ~3.25 hours was observed. Formal anticoagulation was recommended and prescribed. However, Mr. Mccauley reportedly experienced kelly hematuria and discontinued anticoagulation. He has experienced this in the past but had been free from h ematuria for about 18 months before taking Eliquis and experiencing recurrence. He follows with a urologist for this, Dr. Vargas, at [facility]. EKG Atrial- and biventricular-pacing at 60bpm, IA 194ms, QRS 166ms, QT 510ms, QTc 513ms Device Interrogation: Data New Pulse Generator: [employer] [id number] Serial number [id number] Implanted 03/25/2016 Atrial electrode: [employer], Model # 5568-52 cm Serial # [id number] Implanted 06/14/2012 Ventricular electrode: [employer] Model# 7122Q-58 cm Serial #[id number] Implanted 02/18/2013 Coronary sinus electrode: [employer] 1458Q/86 Serial number [id number] Implanted 02/18/2013 Alerts None Diagnostics Pacing Mode: DDDR @ LRL 60bpm Presenting EGMs: AP/VULCANIZER OPERATOR Underlying Rhythm: SR in the high 50s without intrinsic ventricular conduction >30bpm Atrial Episodes: 1 since 12/16/21 01/03/22 8 seconds AF Ventricular Episodes: 0 Atrial Pacin% BiVentricular Pacin% Battery and Leads Voltage: not reported Status: 11.2 months Magnet Rate: N/A Charge Time: 10.3 sec 11/28/21 Impedances (ohms) Sensing (mV) Thresholds HV RA RV LV RA RV LV RA RV LV 71 380 350 830 (M3-M2) 2.3 VULCANIZER OPERATOR N/A 1.75V @ 1.0ms 1.0V @ 0.5ms 1.0V @ 0.8ms Comments: - Pocket incision is well healed without signs or symptoms of infection - Device is functioning appropriately, chronically elevated RA threshold - Programming changes ?? - Iterative changes made for testing purposes only; no programmed parameter modifications - Will continue to monitor AF burden, minimal recurrence (8-seconds) since November 2021 episode - Follow up: q3 months remote download, q6 months in-clinic device check I appreciate the opportunity to be involved with Mr. Mccauley's care. Please do not hesitate to contact EP with any further questions (pager [phone]). POLA Cooper 01/21/2022 Pager: [phone] documented in this encounter Plan of Treatment Upcoming Encounters Date Type Department Care Team (Late st Contact Info) Description 02/26/2024 10:00 AM EST Hospital Encounter [place] [address] Arrived documented as of this encounter Results * EKG 12 Lead (01/24/2022 1:57 PM EST) Ventricular rate 61 BPM MUSE SYSTEM Atrial Rate 61 BPM MUSE SYSTEM P-R Interval 194 ms MUSE SYSTEM QRS Duration 166 ms MUSE SYSTEM Q-T Interval 510 ms MUSE SYSTEM QTC Calculated (Bezet) 513 ms MUSE SYSTEM Calculated P [place] 102 degrees MUSE SYSTEM Calculated R [place] -73 degrees MUSE SYSTEM Calculated T [place] 87 degrees MUSE SYSTEM INTERPRETATION AV dual-paced rhythm Abnormal ECG When compared with ECG of 25-MAR-2016 07:45, No significant change was found Confirmed by Terry Marks ([id number]) on 01/25/2022 2:22:21 PM MUSE SYSTEM 01/24/2022 1:57 PM EST 01/25/2022 2:22 PM EST Vincent Martinez MD ECG ORDERABLES MUSE SYSTEM documented in this encounter Visit Diagnoses Diagnosis Biventricular implantable cardioverter-defibrillator in situ- [employer] documented in this encounter Care Teams Oil Pipe Inspector Helper Relationship Specialty Start Date End Date Carlos Valdez MD [address] [place] [address] PCP - General 03/25/11 08/07/22 documented as of this encounter
--- OUTSIDE RECORDS SUMMARY | 2023-12-11 18:43 | XMS_ITS | Encounter Summary ---
Author Organization [facility] [place] [address] Care Team Providers Care Oil Burner Servicer And Installer Name Role Phone Andrew Siu DNP Primary Care Provider [phone] Encounter Details Date Type Department Care Team (Latest Contact Info) Description 10/31/2022 11:00 AM EDT Office Visit Cardiology at [address] [phone] Iman Balderas PA [facility] [place] [address] End of battery life of cardiac resynchronization therapy defibrillator (BIAS MACHINE OPERATOR-D) [Z45.02 (ICD-10-CM)] Social History Tobacco Use Types Packs/Day Years Used Date Smoking Tobacco: Former Cigarettes Q uit: 01/12/1996 Smokeless Tobacco: Never Tobacco Cessation:Counseling Given: Not Answered Comments:stopped 15 years Alcohol Use Standard Drinks/Week Comments Yes 0.8 (1 standard drink = 0.6 oz p ure alcohol) 1 drink a day Sex and Gender Information Value Date Recorded Sex Assigned at Not on file Gender Identity Not on file Sexual Orientation Not on file documented as of this encounter Last Filed Vital Signs Vital Sign Reading Time Taken Comments Blood Pressure 131/79 10/31/2022 10:35 AM EDT Pulse 67 10/31/2022 10:35 AM EDT Temperature - - Respiratory Rate - - Oxygen Saturation 97% 10/31/2022 10:35 AM EDT Inhaled Oxygen Concentration - - Weight 110 kg (242 lb 9.6 oz) 10/31/2022 10:35 A M EDT Height 198.1 cm (6' 6) 10/31/2022 10:35 AM EDT Body Mass Index 28.04 10/31/2022 10:35 AM EDT documented in this encounter Progress Notes * Iman Balderas PA - 10/31/2022 11:00 AM EDT Images from the original note were not included. Cardiac Electrophysiology Clinic Visit Subjective: Patient ID: Jimmie Mccauley is a 77 y.o. male. CC: Presents for device replacement evaluation HPI: 77 y.o. male with past medical history of complete heart block s/p SJM dual-chamber pacemaker in May 2012, non ischemic cardiomyopathy (most recent LVEF 55% TTE July 2022), LBBB, with an upgrade to a BIAS MACHINE OPERATOR-D (new generator, capped RV pacing lead, new RV high voltage lead, new CS lead) in February 2013, and a generator replacement in March 2016, nonobstructive CAD, and HTN who presents for MARY BETH work-up. Patient denies acute complaints associated with the device. He is very familiar with generator changes- this will be his second generator change for his BIAS MACHINE OPERATOR. Lives independently in [place], [place]. Has a rescue Collie named Anjel. Medications: Current Outpatient Medications Medication Sig Dispense Refill pravastatin (Pravachol) 20 [...] Tablet Take 1 tablet by mouth daily. olmroye-ruvwxvvsnsnsm-ahxtcpxf (EXCEDRIN MIGRAINE) 250-250-65 mg per tablet Take [...] tablet by mouth nightly. 30 tablet 0 pravastatin (PRAVACHOL) 10 mg Tablet Take 10 mg by mouth daily. Objective: Vitals: Vitals: 10/31/22 1035 BP: 131/79 BP Location (NBP): Right arm Patient Position: Sitting BP Cuff Sizes: Adult (25-34 cm) Pulse: 67 SpO2: 97% Weight: 110 kg (242 lb 9.6 oz) Height: 198.1 cm (6' 6) Physical Exam: General- No acute distress, sitting comfortably in exam room chair HEENT- Head atraumatic, normocephalic, wearing glasses Skin- Pocket incisions are well healed. He does have a prominent device although no evidence of erosion or need of revision. Neck- No JVD noted Cardiovascular- S1/S2 regular rate and regular rhythm. Lungs- Clear to auscultation bilaterally Extremities- Pulses equal bilaterally. No edema noted Neuro- A&Ox3 Echo 10/31/2022 Interpretation Summary Left ventricular systolic function is normal. The left ventricular ejection fraction is 55% by Ramirez's biplane. Right ventricular systolic function is normal. No significant valvular disease noted on this study. The diameter at the level of the sinuses of Valsalva is 4.2 cm. Device Information: New Pulse Generator: [employer] [id number] Serial number [id number] Implanted 03/25/2016 Atrial electrode: [employer], Model # 5568-52 cm Serial # [id number] Implanted 06/14/[address]: [employer] Model# 7122Q-58 cm Serial #[id number] Implanted 02/18/2013 Coronary sinus electrode: [employer] 1458Q/86 Serial number [id number] Implanted 02/18/2013 Underlying Rhythm: SR in the 50s without intrinsic ventricular activity >30 bpm Lead Noise: none during arm maneuvers Pacing Mode: DDDR at LRL 60 Tachy: Monitor at 171 bpm Therapy at 200 bpm, ATP x1, 36J x 1, 40J x 5 Atrial Episodes: 0 Ventricular Episodes: 0 Atrial Pacin% Ventricular Pacing: >99% Battery and Leads Voltage: 32 uA Status: 3.1 months Magnet Rate: N/A Charge Time: 11.1sec Impedances (ohms) Sensing (mV) Thresholds HV RA RV LV RA RV LV RA RV LV 71 (RV to Can) 380 360 590 1.6 12 N/A 1.75V @ 1.0ms 1.0V @ 0.5ms 1.0V @ 0.8ms (M3-M2) Sedation evaluation: Mallampati class: II: tonsillar pillars are blocked by the tongue ASA: 2: Patient with mild systemic disease Assessment and Plan: 77 y.o. male with past medical history of complete heart block s/p SJM dual- chamber pacemaker in May 2012, non ischemic cardiomyopathy, LBBB, with an upgrade to a BIAS MACHINE OPERATOR-D (new generator, capped RV pacing lead, new RV high voltage lead, new CS lead) in February 2013, and a generator replacement in March 2016, nonobstructive CAD, and HTN who Device is functioning well. Some thresholds are slightly elevated but stable. Plan: 1. Schedule for left-sided [employer] BIAS MACHINE OPERATOR-D generator replacement when device hits MARY BETH 2. Antibiotic therapy: Ancef, TYRX 3. Sedation: Moderate 4. Anticoagulation plan: N/A 5. Temporary pacing: Not indicated 8. Benefits and risks of device replacement discussed, including but not limited to infection requiring explantation of all hardware, bleeding requiring blood transfusion, damage to any existing leads, hemothorax, pneumothorax requiring chest tube placement, vascular or myocardial damage/perforation requiring endovascular or surgical repair, tamponade, lead dislodgment, DVT requiring coumadin anticoagulation, device recall, post-device syncope and the possible need for an early surgical revision. Post-procedure limitations were discussed with the patient. The patient's questions were answered. I appreciate the opportunity to be involved with Mr. Mccauley's care. Please do not hesitate to contact EP with any further questions (pager [phone]). POLA Cooper 11:38 AM 10/31/22 documented in this encounter Plan of Treatment Upcoming Encounters Date Type Department Care Team (Late st Contact Info) Description 02/26/2024 10:00 AM EST Hospital Encounter Non[place] [address] Arrived documented as of this encounter Visit Diagnoses Diagnosis End of battery life of cardiac resynchronization therapy defibrillator (BIAS MACHINE OPERATOR-D) [Z45.02 (ICD-10-CM)] documented in this encounter Care Teams Oil Burner Servicer And Installer Relationship Specialty Start Date End Date Andrew Siu DNP [address] [place] [id number] PCP - General Family Medicine 08/08/22 documented as of this encounter
--- OUTSIDE RECORDS SUMMARY | 2023-12-11 18:43 | XMS_ITS | Encounter Summary ---
[place] [address] Care Team Providers Care Livestock Counter Name Role Phone Andrew Siu DNP Primary Care Provider [phone]- [phone] Encounter Details Date Type Department Care Team (Latest Contact Info) Description 08/08/2022 2:00 PM EDT Laboratory Appointment Lab [address] [place] [phone] Chronic systolic heart failure Social History Tobacco [...] AM EST Hospital Encounter Non-In[place] [phone] Arrived documented as of this encounter Procedures Procedure Name Priority Date/Time Associated Diagnosis Comments PRO-BRAIN NATRIURETIC PEPTIDE STAT 08/08/2022 2:18 PM EDT Chronic systolic heart failure BASIC METABOLIC PANEL STAT 08/08/2022 2:18 PM EDT Chronic systolic heart failure documented in this encounter Results * pro-Brain Natriuretic Peptide (08/08/2022 2:18 PM EDT) NT-proBNP 165 <=449 pg/mL [facility] Blood 08/08/2022 2:18 PM EDT 08/08/2022 2:29 PM EDT Narrative Resulting Agency Comment Spec In Lab Xin Grewal APRN CHEMISTRY ORDERABLES [facility] [place] [address] * Basic Metabolic Panel (non-fasting) (08/08/2022 2:18 PM EDT) Glucose 89 65 - 199 mg/dL [facility] Comment:Diabetes: >=200 mg/d L plus symptoms Blood Urea Nitrogen 15 10 - 20 mg/dL [facility] Creatinine 0.84 0.80 - 1.50 mg/dL [facility] Sodium 141 135 - 145 mmol/L [facility] Potassium 4.3 3.5 - 5.0 mmol/L [facility] Comment: Please note: ??Patients with WBC >100,000 may have falsely elevated Potassium levels. ??For accurate Potassium quantification in these patients send serum separator tube (gold top) for subsequent determinations. ??Contact the Clinical Chemistry Laboratory if there are any questions. Chloride 104 98 - 107 mmol/L [facility] Carbon Dioxide 26 22 - 31 mmol/L [facility] Anion Gap 11 5 - 15 mmol/L [facility] Calcium 9.6 8.5 - 10.5 mg/dL [facility] Est Glomerular Filtration Rate 90 >=60 mL/min/1. 73 m?? [facility] Comment: This patient's estimated GFR was [...] and symptoms in addition to eGFR. Blood 08/08/2022 2:18 PM EDT 08/08/2022 2:29 PM EDT Narrative Resulting Agency Comment Spec In Lab Xin Grewal APRN CHEMISTRY ORDERABLES [facility] [place] [address] documented in this encounter Visit Diagnoses Diagnosis Chronic systolic heart failure documented in this encounter Care Teams Livestock Counter Relationship Specialty Start Date End Date Andrew Siu DNP [address] [place] [address] PCP - General Family Medicine 08/08/22 documented as of this encounter
--- OUTSIDE RECORDS SUMMARY | 2023-12-11 18:43 | XMS_ITS | Encounter Summary ---
[place] [address] Care Team Providers Care Control Area Operator Name Role Phone Andrew Siu DNP Primary Care Provider [phone]- [phone] Reason for Visit * Reason Onset Date Comments Results 10/07/2022 Overnight oximet ry Encounter Details Date Type Department Care Team ([facility] st Contact Info) Description 10/07/2022 Telephone Cardiology at [address] [phone] Brunilda Richardson, RN Results (Overnight oximetry) Social History Tobacco Use Types [...] Telephone Encounter - Brunilda Richardson RN - 10/20/2022 11:18 AM EDT Call placed to the mobile and home number listed to review the overnight oximetry results and the need for him to use oxygen at night. No answer at the home number listed. VM left on the mobile number listed, requesting him to call back to discuss the test results and the treatment needed. Awaiting a call back. Order to be faxed to: [facility] is in [place] (phone [phone], ) when signed along with copy of the overnight oximetry results and the pt's demographics. * Telephone Encounter - Brunilda Richardson RN - 10/07/2022 1:07 PM EDT VM received from Raquel at [facility] reporting that the pt qualifies for home oxygen at night per [employer] report. Results on file in Media. Orders can be faxed to [phone], call with questions to [phone]. Message forwarded to TATIANA Grewal documented in this encounter Plan of Treatment Upcoming Encounters Date Type Department Care Team (Late st Contact Info) Description 02/26/2024 10:00 AM [facility] Hospital Encounter Non-[place] [address] Arrived documented as of this encounter Visit Diagnoses Not on filedocumented in this encounter Care Teams Control Area Operator Relationship Specialty Start Date End Date Andrew Siu DNP [address] [place] [address] PCP - General Family Medicine 08/08/22 documented as of this encounter
--- OUTSIDE RECORDS SUMMARY | 2023-12-11 18:43 | XMS_ITS | Encounter Summary ---
Author Organization [facility] [place] [address] Care Team Providers Care Esthetician Name Role Phone Andrew Siu DNP Primary Care Provider [phone]- [phone] Encounter Details Date Type Department Care Team (Late st Contact Info) Description 12/28/2022 Orders Only Cardiology at [address] [phone] Lauren Starks MD [facility] [place] [address] Chronic systolic heart failure; Fatigue, unspecified type Social History Tobacco Use Types [...] AM EST Hospital Encounter Non-Invasive [place] [phone] Arrived documented as of this encounter Visit Diagnoses Diagnosis Chronic systolic heart failure Fatigue, unspecified type documented in this encounter Care Teams Esthetician Relationship Specialty Start Date End Date Andrew Siu DNP [address] [place] [address] [place] [address] PCP - General Family Medicine 08/08/22 documented as of this encounter
--- OUTSIDE RECORDS SUMMARY | 2023-12-11 18:43 | XMS_ITS | Encounter Summary ---
[place] [address] Care Team Providers Care Resin Remover Name Role Phone Carlos Valdez MD Primary Care Provider [phone] Encounter Details Date Type Department Care Team (Late st Contact Info) Description 12/30/2021 Telephone Cardiology at [address] [phone] Trevor Banegas, RN Social History Tobacco Use Types Packs/Day [...] encounter Miscellaneous Notes * Telephone Encounter - Trevor Banegas RN - 12/30/2021 9:44 AM EDT Appreciate VM prompt from Mr. Mccauley. VM details having started his prescribed Eliquis last evening. Within an hour or so after taking this medication I started peeing blood. I will not be takingany more of this. Call returned in follow up. Very pleasant connection with Mr. Mccauley. Acknowledged his concerns. Note routed to his care team. Next scheduled appointment with Angélica Grewal and Iman Balderas 01/24/2022. Daniel Banegas RNwind turbine design engineer Team Nurse [facility] Ambulatory Cardiology documented in this encounter Plan of Treatment Upcoming Encounters Date Type Department Care Team (Late st Contact Info) Description 02/26/2024 10:00 AM EST Hospital Encounter Non-Invasive [place] [address] Arrived documented as of this encounter Visit Diagnoses Not on filedocumented in this encounter Care Teams Resin Remover Relationship Specialty Start Date End Date Carlos Valdez MD [address] [place] [address] PCP - General 03/25/11 08/07/22 documented as of this encounter
--- OUTSIDE RECORDS SUMMARY | 2023-12-11 18:43 | XMS_ITS | Encounter Summary ---
[place] [address] Care Team Providers Care Advance Scout Name Role Phone Andrew Siu DNP Primary Care Provider Encounter Details Date Type Department Care Team (Latest Contact Info) Description 12/03/2022 10:00 AM EDT - 12/03/2022 11:59 PM EDT Hospital Encounter Non-Invasive [place] [address] Discharge Disposition: Home Social History Tobacco Use [...] st Contact Info) Description 02/26/2024 10:00 AM [facility] Hospital Encounter Non-[place]vasive [place] [phone] Arrived documented as of this encounter Procedures Procedure Name Priority Date/Time Associated Diagnosis Comments PRO ICD INTERROGATION REMOTE UP TO 90 DAYS Routine 10/07/2022 5:00 AM EDT documented in this encounter Results * Cardiac Device Check - Remote (10/07/2022 5:00 AM EDT) Anatomical Region Laterality Modality Other 10/07/2022 5:00 AM EDT Choco Euceda MD IMPLANTABLE CARDIAC DEVICE documented in this encounter Visit Diagnoses Not on filedocumented in this encounter Care Teams Advance Scout Relationship Specialty Start Date End Date Andrew Siu DNP [address] [place] [id number] PCP - General Family Medicine 08/08/22 documented as of this encounter
--- OUTSIDE RECORDS SUMMARY | 2023-12-11 18:43 | XMS_ITS | Encounter Summary ---
[place] [address] Care Team Providers Care Kiln Mechanic Name Role Phone Andrew Siu DNP Primary Care Provider [phone] Reason for Visit * Reason Onset Date Comments Follow-up 01/04/2023 Home oxygen Encounter Details Date Type Department Care Team (Late st Contact Info) Description 01/04/2023 Telephone Cardiology at [address] [phone] Brunilda Richardson, RN Follow-up (Home oxygen) Social History Tobacco Use Types Packs/Day Years [...] Miscellaneous Notes * Telephone Encounter - Brunilda Richardson, RN - 01/04/2023 3:09 PM EDT Pt contacted to let him know that we will need to repes\at the over night oximetry testing again. It has been too long since he had the test done and he will need a face 2 face visit with one of the providers as well. The testing and clinic visit should be with in 30 days of the oxygen order in order for Medicare to pay for it. Pt states he does not believe he is dropping his sats at night and would like to talk to the provider more about it before he has another test done. Pt given a F/U to see Dr Starks on 01/13/23. * Telephone Encounter - Brunilda Richardson RN - 01/04/2023 3:02 PM EDT ----- Message from Aleshia Beasley sent at 01/03/2023 11:57 AM EDT ----- Regarding: Update overnight oximetry Caller: [employer]: [employer] Phone: none given Message: Jeanine called to let our office know that they did receive the order for nocturnal oxygen but cannot provide it at this time. Patient needs to have an updated overnight oximetry and office visit within 30 days of the prescription. He has not been seen since July and the overnight oximetry is from September. I am more than happy to get him scheduled for the follow up appointment. Let me know how I can help. documented in this encounter Plan of Treatment Upcoming Encounters Date Type Department Care Team (Late st Contact Info) Description 02/26/2024 10:00 AM [facility] Hospital Encounter Non-[place]vasive [place] [address] Arrived documented as of this encounter Visit Diagnoses Not on filedocumented in this encounter Care Teams Kiln Mechanic Relationship Specialty Start Date End Date Andrew Siu DNP [address] [place] [id number] PCP - General Family Medicine 08/08/22 documented as of this encounter
--- OUTSIDE RECORDS SUMMARY | 2023-12-11 18:43 | XMS_ITS | Encounter Summary ---
[place] [address] Care Team Providers Care Deputy County Clerk Name Role Phone Andrew Siu DNP Primary Care Provider [phone] Encounter Details Date Type Department Care Team (Latest Contact Info) Description 10/31/2022 Travel Social History Tobacco Use Types Packs/Day [...] AM EST Hospital Encounter [place] [address] Arrived documented as of this encounter Visit Diagnoses Not on filedocumented in this encounter Care Teams Deputy County Clerk Relationship Specialty Start Date End Date Andrew Siu DNP [address] [place] [phone] PCP - General Family Medicine 08/08/22 documented as of this encounter"
--- OUTSIDE RECORDS SUMMARY | 2023-12-11 18:43 | XMS_ITS | Encounter Summary ---
Author Organization [facility] [place] [address] Care Team Providers Care Automotive Service Advisor Name Role Phone Andrew Siu DNP Primary Care Provider [phone] Encounter Details Date Type Department Care Team (Late st Contact Info) Description 10/20/2022 Orders Only Cardiology at [address] [phone] Xin Grewal, TEST SPECIALIST [facility] [place] [address] Fatigue, unspecified type; Chronic systolic heart failure Social History Tobacco [...] AM EST Hospital Encounter Non-[place] [phone] Arrived documented as of this encounter Visit Diagnoses Diagnosis Fatigue, unspecified type Chronic systolic heart failure documented in this encounter Care Teams Automotive Service Advisor Relationship Specialty Start Date End Date Andrew Siu DNP [address] [place] [address] [place] [address] PCP - General Family Medicine 08/08/22 documented as of this encounter
--- OUTSIDE RECORDS SUMMARY | 2023-12-11 18:43 | XMS_ITS | Encounter Summary ---
[place] [address] Care Team Providers Care Child Care Centre Manager Name Role Phone Andrew Siu DNP Primary Care Provider [phone] Encounter Details Date Type Department Care Team (Latest Contact Info) Description 02/08/2023 10:20 AM EST Laboratory Appointment Lab [address] [place] [phone] Presence of cardiac resynchronization therapy defibrillator (BUILDING ADMIN-D); Chronic systolic heart failure Social History Tobacco [...] AM EST Hospital Encounter Non-[place] [phone] Arrived documented as of this encounter Procedures Procedure Name Priority Date/Time Associated Diagnosis Comments HEMOGRAM Routine 02/08/2023 9:54 AM EST Presence of cardiac resynchronization therapy defibrillator (BUILDING ADMIN-D) DIFFERENTIAL, AUTOMATED Routine 02/08/2023 9:54 AM EST Presence of cardiac resynchronization therapy defibrillator (BUILDING ADMIN-D) CBC (WITH DIFF) Routine 02/08/2023 9:54 AM EST Presence of cardiac resynchronization therapy defibrillator (BUILDING ADMIN-D) PRO-BRAIN NATRIURETIC PEPTIDE Routine 02/08/2023 9:54 AM EST Chronic systolic heart failure MAGNESIUM Routine 02/08/2023 9:54 AM EST Chronic systolic heart failure HEPATIC FUNCTION PANEL Routine 02/08/2023 9:54 AM EST Chronic systolic heart failure BASIC METABOLIC PANEL Routine 02/08/2023 9:54 AM EST Presence of cardiac resynchronization therapy defibrillator (BUILDING ADMIN-D) documented in this encounter Results * Differential, Automated (02/08/2023 9:54 AM EST) Neutrophil % 62.0 % [facility] Neutrophil Absolute 5.70 1.70 - 6.10 x10(3)/[facility] Lymph % 25.3 % [facility] Lymphocytes Abs 2.3 0.9 - 3.2 x10(3)/[facility] Monocyte % 9.1 % [facility] Monocyte Abs 0.8 0.3 - 0.9 x10(3)/[facility] Eos % 2.9 % [facility] Eosinophils Abs 0.3 0.0 - 0.4 x10(3)/[facility] Basophil % 0.5 % [facility] Baso Absolute 0.0 0.0 - 0.1 x10(3)/[facility] Immature Gran % 0.20 % [facility] Comment: Immature granulocytes(IG's)percentage and absolute count will include metamyelocytes, myelocytes, and promyelocytes. Blood smears from CBCs yielding IG's will be scanned manually for concordance. If this scan disagrees with the automated IG or if promyelocytes are noted, a manual differential will be performed. Immature Gran Absolute 0.02 0.00 - 0.04 x10(3)/[facility] Blood 02/08/2023 9:54 AM EST 02/08/2023 10:05 AM EST Narrative Resulting Agency Comment Spec In Lab Xin Lux TUCK POINTER HEMATOLOGY ORDERABLE S [facility] [place] [address] * (ABNORMAL) Hemogram (02/08/2023 9:54 AM EST) White Blood Cell 9.2 4.0 - 9.5 x10(3)/mc L [facility] Red Blood Cell 5.69(H) 4.58 - 5.54 x10(6)/mc L [facility] Hemoglobin 16.8(H) 13.7 - 16.5 g/dL [facility] Hematocrit 49.9(H) 40.5 - 48.5 % [facility] Mean Cell Volume 87.7 82.9 - 93.1 fL [facility] Mean Cell Hemoglobin 29.5 27.5 - 32.1 pg [facility] Mean Cell Hemoglobin Concentration 33.7 32.0 - 35.7 g/dL [facility] Platelet 196 145 - 357 x10(3)/mc L [facility] RDW Standard Deviation 40.9 36.0 - 45.0 fL [facility] RDW coefficient of variation 12.8 11.4 - 13.8 % [facility] Mean Platelet Volume 10.1 7.6 - 12.9 fL [facility] NRBC% auto 0.0 % [facility] NRBC Absolute 0.000 0.000 - 0.000 x10(3)/mc L [facility] Blood 02/08/2023 9:54 AM EST 02/08/2023 10:05 AM EST Narrative Resulting Agency Comment Spec In Lab Xin Lux TUCK POINTER HEMATOLOGY ORDERABLE S [facility] [place] [address] * Magnesium (02/08/2023 9:54 AM EST) Magnesium 0.88 0.69 - 1.07 mmol/L [facility] Blood 02/08/2023 9:54 AM EST 02/08/2023 10:03 AM EST Narrative Resulting Agency Comment Spec In Lab Lauren Starks MD CHEMISTRY ORDERABL ES Performing Organization Address [facility] de Phone Number [facility] [place] [address] * Hepatic Function Panel (02/08/2023 9:54 AM EST) Pathologist [facility] Protein, Total 6.5 6.1 - 8.0 g/dL [facility] Albumin 4.1 3.2 - 5.2 g/dL [facility] Aspartate Aminotransferase 14 0 - 39 unit/L [facility] Alanine Aminotransferase 14 0 - 55 unit/L [facility] Alkaline Phosphatase 59 40 - 130 unit/L [facility] Bilirubin, Total 0.9 0.2 - 1.3 mg/dL [facility] Bilirubin, Direct 0.2 0.0 - 0.3 mg/dL [facility] Blood 02/08/2023 9:54 AM EST 02/08/2023 10:03 AM EST Narrative Resulting Agency Comment Spec In Lab Lauren Starks MD CHEMISTRY ORDERABL ES Performing Organization Address [facility] Phone Number [facility] [place] [address] * pro-Brain Natriuretic Peptide (02/08/2023 9:54 AM EST) Pathologist [facility] NT-proBNP 151 <=449 pg/mL [facility] Blood 02/08/2023 9:54 AM EST 02/08/2023 10:03 AM EST Narrative Resulting Agency Comment Spec In Lab Lauren Starks MD CHEMISTRY ORDERABL ES Performing Organization Address [facility] Co de Phone Number [facility] [place] [address] * Basic Metabolic Panel (non-fasting) (02/08/2023 9:54 AM EST) Glucose 86 65 - 199 mg/dL [facility] Comment:Diabetes: >=200 mg/d L plus symptoms Blood Urea Nitrogen 18 10 - 20 mg/dL [facility] Creatinine 0.91 0.80 - 1.50 mg/dL [facility] Sodium 141 135 - 145 mmol/L [facility] Potassium 4.6 3.5 - 5.0 mmol/L [facility] Comment: Please note: ??Patients with WBC >100,000 may have falsely elevated Potassium levels. ??For accurate Potassium quantification in these patients send serum separator tube (gold top) for subsequent determinations. ??Contact the Clinical Chemistry Laboratory if there are any questions. Chloride 104 98 - 107 mmol/L [facility] Carbon Dioxide 30 22 - 31 mmol/L [facility] Anion Gap 7 5 - 15 mmol/L [facility] Calcium 9.7 8.5 - 10.5 mg/dL [facility] Est Glomerular Filtration Rate 87 >=60 mL/min/1. 73 m?? [facility] Comment: This patient's estimated GFR [...] and symptoms in addition to eGFR. Blood 02/08/2023 9:54 AM EST 02/08/2023 10:03 AM EST Narrative Resulting Agency Comment Spec In Lab Xin Lux TUCK POINTER CHEMISTRY ORDERABLES [facility] [place] [address] documented in this encounter Visit Diagnoses Diagnosis Presence of cardiac resynchronization therapy defibrillator (BUILDING ADMIN-D) Chronic systolic heart failure documented in this encounter Care Teams Child Care Centre Manager Relationship Specialty Start Date End Date Andrew Siu DNP [address] [place] [address] PCP - General Family Medicine 08/08/22 documented as of this encounter
--- OUTSIDE RECORDS SUMMARY | 2023-12-11 18:43 | XMS_ITS | Encounter Summary ---
Author Organization [place] [address] Care Team Providers Care Inpatient Services Rn Name Role Phone Carlos Valdez MD Primary Care Provider [phone] Reason for Referral * Diagnostic Test (Routine) - Closed Specialty Diagnoses / Procedures Referred By Contac t Referred To Contact Cardiology Diagnoses Non-ischemic cardiomyopathy Procedures Echocardiogram Transthoracic Xin Grewal APRN [facility] [place] [address] [facility] [place] [address] Referral ID Status Reason Start Date Expiration Date V isits Requested Visits Authorized [id number] Closed Specialty Service Requested 01/24/2022 01/24/2023 1 1 Encounter Details Date Type Department Care Team (Latest Contact Info) Description 01/24/2022 2:00 PM EST Office Visit Cardiology at [address] [address] Xin Grewal APRN [facility] [place] [address] Non-ischemic cardiomyopathy (Primary Dx); LBBB (left bundle branch block); Chronic systolic heart failure; Hypertension, unspecified type; Biventricular implantable cardioverter-defibrilla tor in situ- [facility]; Fatigue, unspecified type Social History Tobacco Use [...] Time Taken Comments Blood Pressure 133/78 01/24/2022 2:15 PM EST Pulse 73 01/24/2022 2:15 PM EST Temperature - - Respiratory Rate - - Oxygen Saturation 97% 01/24/2022 2:15 PM EST Inhaled Oxygen Concentration - - Weight 106.6 kg (235 lb 0.2 oz) 01/24/2022 2:15 PM EST Height 198.1 cm (6' 5.99) 01/24/2022 2:15 PM ES T Body Mass Index 27.16 01/24/2022 2:15 PM EST documented in this encounter Patient Instructions * Patient Instructions* Donta Steve - 01/24/2022 2:00 PM EST - Return to HF clinic in 6 months with labs and TTE -Continue same regimen as planned -Continue following with Urology. Discussed blood in urine after one dose of Eliquis to Urology -Continue following with PCP -Consider Sleep study in the future if interested * Attachments The following attachments cannot be sent through Care Everywhere. * Atrial Fibrillation (Emirati) documented in this encounter Progress Notes * Xin Grewal APRN - 01/24/2022 2:00 PM EST Images from the original note were not included. [facility] [place] [address] CARDIOMYOPATHY/HEART FAILURE SERVICE OUTPATIENT CLINIC NOTE Jatinder Morrell 01/24/2022 Primary Care Provider: Carlos Valdez MD Referring Provider: Carlos Valdez HISTORY OF PRESENT ILLNESS: Jatinder Morrell is a 76 y.o. patient with history of pericarditis following PCM implant in 2012, complete heart block with CRTd upgrade in place, nonobstructive coronary artery disease, cardiomyopathy (recovered LV function) seen in routine follow up in the [facility]. Last Visit with Xin Vásqueza 05/06/2019 in Brief - Hypertension managed with Amlodipine 5 initiation, in addition to target dose Losartan. Poor previous tolerance to carvedilol due to fatigue. ?? Interval Events Since Last Visit - Outpatient remote interrogation 12/16/21 of INTERNATIONAL PROJECT MANAGER-D significant for 3.25 hours AF with appropriate mode switch. Apparent new onset pAF per chart review. Initiated on Eliquis 5 (12/30/21) with [id number]: 5 mg BID (age2, CHF, HTN, nonobstructive CAD). Per telephone note 12/30/21, pt reports hematuria after first dose Eliquis with plan to DC regimen. ?? Today, January 24, 2022 Jatinder reports overall feeling well but progressively more tired over the past few years. He expresses concern that his increased fatigue could be related to his triple-agent antihypertensive and cardio-protective regimen. Despite this, he is compliant with all Rxs. Exercise tolerance is stable; heis able to walk his two dogs over a mile every day with minimal fatigue. Diet is stable with Salt limitations. Diuresis stable and responsive to current regimen. Reports smaller and more frequent voids on Finasteride. He has been followed by Urology for years and due for follow up in a few weeks. Weights stable at home ~230 lb daily. Blood pressures reported at home typically 130s/70s. Denies dyspnea, chest pain, palpitations, light-headedness, dizziness, syncope. Denies recent urgent care or hospital visits. ? Patient Active Problem List Diagnosis ??? Biventricular implantable cardioverter-defibrillator in situ- [facility] 02/19/2013 Cardiac Resynchronization Therapy ICD Upgrade (explant of pacemaker pulse generator), peripheral Subclavian Venography, Cinefluoroscopy, pacemaker pocket revision and defibrillation safety margin testing, under General anesthesia Indication: Cardiomopathy with congestive heart failure and ventricular dyssynchrony, ventricular pacing New Ventricular electrode: [employer] Model# 7122Q-58 cm Serial #[id number] Implanted 02/18/2013 Bipolar, steroid-tipped, active-fixation DF-4 lead Access: Axillary vein Location: Right ventricular apical septum (old) Atrial electrode: Medtronic, Model # 5568-52 cm Serial # [id number] Implanted 06/14/2012 Bipolar, steroid-tipped, active-fixation IS-1 lead Access: Not known Location Right atrium anterolateral Coronary sinus electrode: [employer] 1458Q/86 Serial number [id number] Implanted 02/18/2013 Quadripolar passive active fixation lead Access: Subclavian vein Location: Coronary sinus, posterolateral vein Pulse generator: [employer] [id number] Serial number [id number] Implanted 02/18/2013 INTERNATIONAL PROJECT MANAGER ICD Location: Subcutaneous Old ventricular lead : Medtronic 5075 Serial number [id number] (capped 02/18/2013) Old pulse generator: Medtronic [id number] Serial number [id number] (removed 02/18/2013) Detection and termination of ventricular tachyarrhythmias was performed with the ICD set to minimalsensitivity A T-Wave shock (4 S1 at 400 ms with a 310 ms delay and 1.2 Joule biphasic waveform) induced ventricular fibrillation that was successfully terminated with a 20 Joule shock (impedance 68 ohms). Generator change 03/25/16: New Pulse Generator [employer] [id number] Serial number [id number] Implanted 03/25/2016 INTERNATIONAL PROJECT MANAGER ICD Location: Subcutaneous ??? Non-ischemic cardiomyopathy Dilated cardiomyopathy -- non-ischemic. Index [...] with left bundle branch block, PVCs, QRS woscbqfx=792 msec. Symptomatic CHB 06/13/12- s/p DDDR pacemaker 100% V paced rhythm SPEP/Free Light Chains- Results for JATINDER MORRELL ( ) as of 07/10/2016 19:35 Ref. Range 10/19/2015 14:06 10/19/2015 14:07 [place] Free Light Chains Latest Ref Range: 0.33 - 1.94 mg/dL 2.09 (H) Lambda Free Light Chains Latest Ref Range: 0.57 - 2.63 mg/dL 1.53 e. AHA/ACC stage C, NYHA functional class II. f. Intolerant to spironolactone. Currently on carvedilol and Cozaar with slightly elevated blood pressure relative to LV dysfunction. ??? Heart failure chronic systolic dysfunction Heart failure - well compensated Chronic Systolic dysfunction Non ischemic DCM Heart Failure Management: Yes/No No?/Discontinued/Why Beta makeda Yes Carvedilol ROSY/ARB Yes Losartan Spironolactone no Previously [id number], d/c secondary to side effects (hives), no rechallenge Amlodipine Yes Initiated 05/30 [place] AFIB? no Anticoagulated AICD/Type INTERNATIONAL PROJECT MANAGER-D LBBB, EF dropped to 35%- 04/02/13 back up at ~ 50% post INTERNATIONAL PROJECT MANAGER--> EF=65% NSR with LBBB, QRS= 170 ms CHB with symptomatic bradycardia, s/p DDD-R pacer 06/13/12 - LVEF ~ 50-55%, ICD not indicated, but, will likely be V paced, and higher risk for pacemaker induced LV dysfunction - LVEF deteriorated post pacer implant, EF ~ 35% on medical therapy AHA/ACC stage C, NYHA FTCII ??? Pulmonary embolism New clinical dyspnea, chest pain syndrome, diaphoresis 06/2012 Recent hospitalization for CHB, pacer and prolonged driving from [place] to [place] Ab[place] CT pulmonary angiogram 08/01/12 Lovenox bridge -->coumadin initiated 08/01/12 ??? LBBB (left bundle branch block) MSK=529 ms New Symptomatic CHB 05/30-->declined pacer at initial presentation while traveling -S/p temp pacer-->Permanent DDDR pacer -LVEF~ 50-55%, ICD not indicated, but at risk for V paced rhythm dyssynchrony ??? Complete heart block Symptomatic bradycardia with CHB and LBBB, HR in the 20-30s Initially seen at a local ER, pacemaker recommended, but declined While in ICU, [place], called [facility] in cath report, but likely symptomatic bradycardia and CHB CHB- s/p temporary pacer 06/13/2012 - cath: Angiogram, mild irregularities of LAD, LCXF dominant, 30-40% mid RCA - No LV gram done S/p DDD-R Pacemaker Medtronic Adapta Dual Chamber Model # [id number], Serial number [id number] -[place], [place] ??? Pericarditis New chest discomfort ~ 2 weeks post DDD pacer implant Elevated C reactive protein; pericardial effusion->improved with NSAID and colchicine. Should be on colchicine until Nov 18, 2012 Elevated ProBNP, some clinical response with diuretics Stress Echo, LVEF=44%, no change, no definite ischemia, poor exercise tolerance, no pericardial effusion noted on stress Trivial pleural effusion on chest x-ray Elevated TOM=013 a-->3.8 AN ESR=53 on index presentation --> 25, 13 and 4 on medical therapy with colchicine, steroids not initiated ??? Alcohol use History of Alcohol use ??? Hypertension BP ~ 130-150 mmHg Rx: Carvedilol, Losartan ??? ICD (implantable cardioverter-defibrillator) malfunction - [facility] ??? 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 May be multifactorial, PE, and post pacer implant pericarditis Abnormal CT pulmonary angiogram Elevated hs CRP and ESR ??? HX SUDDEN CARDIAC ARREST Probably bradycardic induced, presenting with symptomatic CHB, and requiring defibrillation 05/2012 SOCIAL HISTORY: Reviewed and updated as appropriate in the medical record. The patient reports thathe quit smoking about 26 years ago. His smoking use included cigarettes. [...] in the medical record. Allergies Allergen Reactions ??? Lasix [Furosemide] Rash MEDICATIONS: Outpatient Medications Marked as Taking for the 01/24/22 encounter (Office Visit) with Vanessa Grewal APRN Medication Sig Dispense Refill ??? magnesium oxide (Mag-Ox) 400 mg (241.3 mg magnesium) Tablet Take 400 mg by mouth daily. ??? gabapentin (Neurontin) 300 mg Capsule Take 300 mg by mouth nightly. Indications: neuropathic pain ??? finasteride (Proscar) 5 mg Tablet Take 5 mg by mouth daily. ??? docusate sodium (Colace) 100 mg Capsule Take 100 mg by mouth daily. ??? losartan (COZAAR) 100 mg Tablet Take 1 tablet by mouth daily. 90 tablet 0 ??? carvediloL (Coreg) 6.25 mg Tablet TAKE 1 TABLET BY MOUTH TWICE DAILY WITH MEALS 180 tablet 3 ??? amLODIPine (Norvasc) 5 mg Tablet Take 1 tablet by mouth daily. 90 tablet 3 ??? pravastatin (PRAVACHOL) 10 mg Tablet Take 10 mg by mouth daily. ??? xtgxeyq-ruubxuofhcqyx-wnhmjowa (EXCEDRIN MIGRAINE) 250-250-65 mg per tablet Take 1 tablet by mouth every 6 hours as needed. ??? ibuprofen (ADVIL;MOTRIN) 200 mg tablet Take 400 mg by mouth every 6 hours as needed. ??? hydroCODone-acetaminophen (VICODIN) 5-500 mg per tablet Take 1 tablet by mouth every 6 hours asneeded. ??? sildenafil (VIAGRA) 100 mg tablet Take 1 tablet by mouth once as needed. 10 tablet 0 ??? zolpidem (AMBIEN) 10 mg tablet Take 1 tablet by mouth nightly. 30 tablet 0 REVIEW OF SYSTEMS: See HPI above for pertinent positives and negatives. All other ROS negative by system (including general, HEENT, pulmonary, gastrointestinal, genitourinary, musculoskeletal, endocrine, hematologic, extremity, skin, neurology, and psychiatric) with exceptions below. PHYSICAL EXAMINATION: Vital Signs: Wt Readings from Last 3 Encounters: 01/24/22 106.6 kg (235 lb 0.2 oz) 01/24/22 106.6 kg (235 lb) 05/06/19 103.4 kg (228 lb) Temp Readings from Last 3 Encounters: 03/25/16 36.3 ??C (97.3 ??F) (Temporal) 02/11/13 35.6 ??C (96 ??F) (Temporal) BP Readings from Last 3 Encounters: 01/24/22 133/78 01/24/22 133/78 05/06/19 158/79 Pulse Readings from Last 3 Encounters: 01/24/22 73 01/24/22 73 05/06/19 69 SpO2: [97 %] General -pleasant and in [...] LAB STUDIES: Chemistry Component Value Date/Time NA 140 01/24/2022 1301 K 4.3 01/24/2022 1301 CL 103 01/24/2022 1301 CO2 28 01/24/2022 1301 BUN 21 (H) 01/24/2022 1301 CREATININE 0.93 01/24/2022 1301 Component Value Date/Time CALCIUM 10.0 01/24/2022 1301 ALKPHOS 56 01/24/2022 1301 AST 12 01/24/2022 1301 ALT 11 01/24/2022 1301 BILITOT 1.0 01/24/2022 1301 ProBNP Date Value Ref Range Status 01/24/2022 161 <=449 pg/mL Final 05/06/2019 202 (H) <=125 pg/mL Final 10/05/2018 186 (H) <=125 pg/mL Final CARDIAC STUDIES: Echo 09/2018 SUMMARY: ?? 1. There is normal global left ventricular systolic function. The quantitative left ventricular ejection fraction by biplane Ramirez's method is 55%. The basal inferior, and mid inferior wall segments are hypokinetic (score 2). 2. Right ventricular chamber size, wall thickness, and systolic function are within normal limits. 3. The left atrium is moderately dilated. 4. There is no hemodynamically significant valve disease. 5. Compared with study dated 08/2017, no significant change is noted. Assessment Jatinder is a 76 year old male with nonobstructive coronary artery disease, LBBB, and associated cardiomyopathy with improved EF status post CRTD. On exam today, he is euvolemic and denies significant heart failure symptoms. He had a TTE at [facility] within the last 6 months, which we will request recordsfor. His new onset pAF has not relapsed since the 3.25 hour event on 12/16/21 based on interrogation by EP in office today. This is reassuring, considering [id number] VASc Score 6 (Age, CHF, HTN, PE). I strongly encourage him to work up his recent hematuria with Urology to potentially allow future DO AC if needed for recurrent AF. PROBLEMS: LBBB (left bundle branch block) S/p INTERNATIONAL PROJECT MANAGER-D, 99% V Paced ?? H/O Pericarditis Without recurrence ?? Heart failure chronic systolic dysfunction Appears well compensated , euvolemic ?? Non-ischemic cardiomyopathy Stable, recovered LVEF on low dose b-makeda, high dose ARB, BB, and INTERNATIONAL PROJECT MANAGER Intolerant to spironolactone Paroxysmal Atrial Fibrillation - [id number] VASc Score 6 (Age, CHF, HTN, PE) - Recent intolerance to DO AC due to hematuria with Eliquis - Follow up with Urology in a few weeks regarding recent hematuria with DO AC - Consider DO AC in future if AF reoccurs - could consider ANI occlusion device Biventricular implantable cardioverter-defibrillator in situ- [facility] Stable HTN Continue same regimen RECOMMENDATIONS: 1. MEDICATIONS: The patient's medication list was updated and new Rxs given as needed. The medication list was reviewed with the patient, rationale for therapy and potential side effects to be aware of discussed. -No new medications for this viist 2. The following labs, referrals or other testing advised: -None today 3. COUNSELING: Specific issues or questions addressed on this visit: -Ongoing exercise, maintain reasonable weight, limit EtOH 4. Cardiology follow-up scheduled for: -6 months with device check and labs and echo -Will request most recent TTE from [facility] XIN GREWAL APRN documented in this encounter Plan of Treatment Upcoming Encounters Date Type Department Care Team (Late st Contact Info) Description 02/26/2024 10:00 AM EST Hospital Encounter Non-[place] [address] Arrived documented as of this encounter Procedures Procedure Name Priority Date/Time Associated Diagnosis Comments EKG 12-LEAD Routine 01/24/2022 1:57 PM EST Biventricular implantable cardioverter-defibril lator in situ- [facility] documented in this encounter Results * ECHO COMPLETE (08/08/2022 1:50 PM EDT) EF 55 HEARTLAB SYSTEM Anatomical Region Laterality Modality Cardiac Other 08/08/2022 1:03 PM EDT Narrative 08/08/2022 2:07 PM EDT ? Echocardiogram Report Name: JATINDER MORRELL ?Study Date: 08/08/2022 01:03 PMBP: 141/84 mmHg ? Patient Location: [address] [place] [address] : 1945 ? Height: 195 cm ? Account: [id number] Age: 77 yrs ? Weight: 109 kg Gender: Male ?BSA: 2.4 m2 Ordering Physician: XIN GREWAL Referring Physician: SELF Performed By: Lorena Johns RDCS Reason For Study: Non-ischemic cardiomyopathy Exam Location: [facility]. Interpretation Summary Left ventricular systolic function is normal. The left ventricular ejection fraction is 55% by Ramirez's biplane. Right ventricular systolic function is normal. No significant valvular disease noted on this study. The diameter at the level of the sinuses of Valsalva is 4.2 cm. Procedure Complete-12778. Satisfactory quality. Left Ventricle Left ventricle is of normal size. There is no ventricular septal defect. Wall thickness is mildly increased. Left ventricular systolic function is normal. The left ventricular ejection fraction is 55% by Ramirez's biplane. There is abnormal septal motion associated with pacemaker activity. Right Ventricle The right ventricle is of normal size. There is a CIED lead in the right ventricle. Right ventricular systolic function is normal. Left Atrium The left atrium is mildly dilated. There is no evidence for a patent foramen ovale. Right Atrium The right atrium is normal. A pacemaker lead is present in the right atrium. Aortic Valve The aortic valve is tricuspid. There is no aortic stenosis. There is trace aortic regurgitation. Mitral Valve There is posterior mitral annular calcification. There is trace mitral regurgitation. Tricuspid Valve The tricuspid valve is structurally normal. There is trace tricuspid regurgitation. Pulmonic Valve The pulmonic valve is not well visualized. Great Arteries The diameter at the level of the sinuses of Valsalva is 4.2 cm. The maximum diameter of the proximal ascending aorta is 3.8 cm. Venous Inferior vena cava is normal in size. Inferior vena cava collapse greater than 50% with respiration. Pericardium/Pleural The pericardium appears normal. There is no pericardial effusion. Hemodynamics Pulmonary artery hypertension could not be assessed due to inadequate tricuspid regurgitation jet. Left ventricular filling pressure is indeterminate. Ejection Fraction ?2D Measurements ? Volumes EF(MOD-bp): 55.2 % ?IVSd: 1.3 cm ? LAV(MOD- bp) Indexed: ?LVIDd: 5.0 cm ?LVIDs: 3.5 cm ?35.5 ml/m2 ?LVPWd: 1.4 cm ?RA A4Cs_phl: 14.4 cm2 ? EDV (MOD-bp) Index: 55.7 ?LV mass(C)d: 274.2 grams ? ESV (MOD-bp) Index: 25.0 ?LV mass(C)dI: 113.7 grams/m2 ?? SV(LVOT): 66.7 ml ?Ao root diam: 4.2 cm ?Ao root diam index: 1.8 ?SI(LVOT): 27.7 ml/m2 ?asc Aorta Diam: 3.8 cm ?LVOT diam: 2.2 cm ?TAPSE_phl: 1.8 cm Doppler LV V1 VTI: 17.3 cm MV E max jaylen: 45.6 cm/sec MV A max jaylen: 63.9 cm/sec MV E/A: 0.71 MV dec time: 0.25 sec Lat Peak E' Jaylen: 5.5 cm/sec E/ e' (lat): 8.3 Med Peak E' Jaylen: 5.1 cm/sec E/e' (med): 9.0 E/e' Average: 8.6 I ?WMSI = 1.00 ? % Normal = 100 ?Segments ??Size X - Cannot ?2 - ?4 - ?1-2 ? small Interpret ?1 - Normal ?? Hypokinetic 3 - Akinetic Dyskinetic ?? 3-5 ? moderate 5 - ? 6-14 ?large Aneurysmal ?15-16 ?? diffuse Procedure Note Karen Gutierrez MD - 08/08/2022 Echocardiogram Report Name: JATINDER MORRELL Study Date: 301:03 PMBP: 141/84 mmHg Patient Location: [id number] : 1945 Height: 195 cm Account: [id number] Age: 77 yrs Weight: 109 kg Gender: Male BSA: 2.4 m2 Ordering Physician: XIN GREWAL Referring Physician: SELF Performed By: Lorena Johns RDCS Reason For Study: Non-ischemic cardiomyopathy Exam Location: [facility]. Interpretation Summary Left ventricular systolic function is normal. The left ventricularejection fraction is 55% by Ramirez's biplane. Right ventricular systolic function is normal. No significant valvular disease noted on this study. The diameter at the level of the sinuses of Valsalva is 4.2 cm. Procedure Complete-39753. Satisfactory quality. Left Ventricle Left ventricle is of normal size. There is no ventricular septal defect.Wall thickness is mildly increased. Left ventricular systolic function isnormal. The left ventricular ejection fraction is 55% by Ramirez's biplane. There isabnormal septal motion associated with pacemaker activity. Right Ventricle The right ventricle is of normal size. There is a CIED lead in the right ventricle. Right ventricular systolic function is normal. Left Atrium The left atrium is mildly dilated. There is no evidence for a patentforamen ovale. Right Atrium The right atrium is normal. A pacemaker lead is present in the rightatrium. Aortic Valve The aortic valve is tricuspid. There is no aortic stenosis. There is traceaortic regurgitation. Mitral Valve There is posterior mitral annular calcification. There is trace mitral regurgitation. Tricuspid Valve The tricuspid valve is structurally normal. There is trace tricuspid regurgitation. Pulmonic Valve The pulmonic valve is not well visualized. Great Arteries The diameter at the level of the sinuses of Valsalva is 4.2 cm. Themaximum diameter of the proximal ascending aorta is 3.8 cm. Venous Inferior vena cava is normal in size. Inferior vena cava collapse greaterthan 50% with respiration. Pericardium/Pleural The pericardium appears normal. There is no pericardial effusion. Hemodynamics Pulmonary artery hypertension could not be assessed due to inadequatetricuspid regurgitation jet. Left ventricular filling pressure is indeterminate. Ejection Fraction 2D Measurements Volumes EF(MOD-bp): 55.2 % IVSd: 1.3 cm LAV(MOD-bp)Indexed: LVIDd: 5.0 cm LVIDs: 3.5 cm 35.5 ml/m2 LVPWd: 1.4 cm RA A4Cs_phl: 14.4cm2 EDV (MOD-bp)Index: 55.7 LV mass(C)d: 274.2 grams ESV (MOD-bp)Index: 25.0 LV mass(C)dI: 113.7 grams/m2 SV(LVOT): 66.7ml Ao root diam: 4.2 cm Ao root diam index: 1.8 SI(LVOT): 27.7ml/m2 asc Aorta Diam: 3.8 cm LVOT diam: 2.2 cm TAPSE_phl: 1.8 cm Doppler LV V1 VTI: 17.3 cm MV E max jaylen: 45.6 cm/sec MV A max jaylen: 63.9 cm/sec MV E/A: 0.71 MV dec time: 0.25 sec Lat Peak E' Jaylen: 5.5 cm/sec E/ e' (lat): 8.3 Med Peak E' Jaylen: 5.1 cm/sec E/e' (med): 9.0 E/e' Average: 8.6 I WMSI = 1.00 % Normal = 100 SegmentsSize X - Cannot 2 - 4 - 1-2small Interpret 1 - Normal Hypokinetic 3 - Akinetic Dyskinetic 3-5moderate 5 - 6-14large Aneurysmal 15-16diffuse Xin Grewal APRN ECHO ORDERABLES * EKG 12 Lead (01/24/2022 1:57 PM EST) Ventricular rate 61 BPM MUSE SYSTEM Atrial Rate 61 BPM MUSE SYSTEM P-R Interval 194 ms MUSE SYSTEM QRS Duration 166 ms MUSE SYSTEM Q-T Interval 510 ms MUSE SYSTEM QTC Calculated (Bezet) 513 ms MUSE SYSTEM Calculated P Wiley 102 degrees MUSE SYSTEM Calculated R Wiley -73 degrees MUSE SYSTEM Calculated T Wiley 87 degrees MUSE SYSTEM INTERPRETATION AV dual-paced rhythm Abnormal ECG When compared with ECG of 25-MAR-2016 07:45, No significant change was found Confirmed by Terry Marks ([id number]) on 01/25/2022 2:22:21 PM MUSE SYSTEM 01/24/2022 1:57 PM EST 01/25/2022 2:22 PM EST Vincent Martinez MD ECG ORDERABLES MUSE SYSTEM * Lipid Panel (Reflex Direct LDL) (01/24/2022 1:01 PM EST) Cholesterol, Total 155 mg/dL [facility] Comment: Lower Risk: <200 mg/dL Average Risk: 200-239 mg/dL Higher Risk: >js=433 mg/dL Triglyceride 275 mg/dL [facility] Comment: Average Risk/Lower Risk: <150 mg/dL Borderline High Risk: 150-199 mg/dL High Risk: 200-499 mg/dL Very High Risk: >ip=672 mg/dL HDL Cholesterol 39 mg/dL [facility] Comment: Males: ?? Higher Risk: <40 mg/dL Females: ?? Higher Risk: <50 mg/dL LDL Cholesterol 61 mg/dL [facility] Comment: Lowest Risk: <100 mg/dL Lower Risk: 100-129 mg/dL Borderline High Risk: 130-159 mg/dL High Risk: 160-189 mg/dL Very High Risk: >os=242 mg/dL Cholesterol/HDL Ratio 4.0 ratio [facility] Lipid Interpretation See Note [facility] Comment: Lipid management should be guided by a patient? s ASCVD risk, goals and preferences. ACC/AHA Guidelines recommend high intensity statin if clinical ASCVD or LDL greater than or equal to 190 mg/dL. [email or web address] Adults aged 40-75 with LDL 70-189 mg/dL should have their 10 year ASCVD risk estimated with the ACC/AHA ASCVD risk slip cover estimator http://tools.acc.org/TUBAS-Ujwn-Kxttpodtq/ Statin should be discussed if risk greater than or equal to 7.5% in non-diabetics. With diabetes, moderate intensity statin is recommended if risk less than 7.5%, high intensity if risk greater than or equal to 7.5%. Annual lipid monitoring on statins is not necessary. Evaluate secondary causes of Triglycerides greater than 500 mg/dL or LDL greater than 190 mg/dL: See table 6 of ACC/AHA Guideline. Lifestyle modification is a critical component of ASCVD risk reduction. Blood 01/24/2022 1:01 PM EST 01/24/2022 1:08 PM EST Narrative Resulting Agency Comment Spec In Lab Xin Grewal APRN CHEMISTRY ORDERABLES [facility] [place] [address] * pro-Brain Natriuretic Peptide (01/24/2022 1:01 PM EST) NT-proBNP 161 <=449 pg/mL [facility] Blood 01/24/2022 1:01 PM EST 01/24/2022 1:08 PM EST Narrative Resulting Agency Comment Spec In Lab Xin Grewal APRN CHEMISTRY ORDERABLES [facility] [place] [address] * (ABNORMAL) Comprehensive metabolic panel (non-fasting) (01/24/2022 1:01 PM EST) Glucose 93 65 - 199 mg/dL [facility] Comment:Diabetes: >=200 mg/d L plus symptoms Blood Urea Nitrogen 21(H) 10 - 20 mg/dL [facility] Creatinine 0.93 0.80 - 1.50 mg/dL [facility] Sodium 140 135 - 145 mmol/L [facility] Potassium 4.3 3.5 - 5.0 mmol/L [facility] Comment: Please note: ??Patients with WBC >100,000 may have falsely elevated Potassium levels. ??For accurate Potassium quantification in these patients send serum separator tube (gold top) for subsequent determinations. ??Contact the Clinical Chemistry Laboratory if there are any questions. Chloride 103 98 - 107 mmol/L [facility] Carbon Dioxide 28 22 - 31 mmol/L [facility] Anion Gap 9 5 - 15 mmol/L [facility] Calcium 10.0 8.5 - 10.5 mg/dL [facility] Protein, Total 6.6 6.1 - 8.0 g/dL [facility] Albumin 4.0 3.2 - 5.2 g/dL [facility] Aspartate Aminotransferase 12 0 - 39 unit/L [facility] Alanine Aminotransferase 11 0 - 55 unit/L [facility] Alkaline Phosphatase 56 40 - 130 unit/L [facility] Bilirubin, Total 1.0 0.2 - 1.3 mg/dL [facility] Est Glomerular Filtration Rate 85 >=60 mL/min/1. 73 m?? [facility] Comment: This patient's estimated GFR [...] and symptoms in addition to eGFR. Blood 01/24/2022 1:01 PM EST 01/24/2022 1:08 PM EST Narrative Resulting Agency Comment Spec In Lab Xin Grewal APRN CHEMISTRY ORDERABLES [facility] [place] [address] documented in this encounter Visit Diagnoses Diagnosis Non-ischemic cardiomyopathy- Primary Other primary cardiomyopathies LBBB (left bundle branch block) Other left bundle branch block Chronic systolic heart failure Hypertension, unspecified type Biventricular implantable cardioverter-defibrillator in situ- [facility] Fatigue, unspecified type Non-ischemic cardiomyopathy Other primary cardiomyopathies documented in this encounter Care Teams Inpatient Services Rn Relationship Specialty Start Date End Date Carlos Valdez MD [address] [place] [address] PCP - General 03/25/11 08/07/22 documented as of this encounter
--- OUTSIDE RECORDS SUMMARY | 2023-12-11 18:43 | XMS_ITS | Encounter Summary ---
[place] [address] Care Team Providers Care Clinic Mgr Name Role Phone Andrew Siu DNP Primary Care Provider [phone] Reason for Visit * Reason Onset Date Comments Follow-up 12/29/2022 Order for home o xygen to [facility] Encounter Details Date Type Department Care Team (Late st Contact Info) Description 12/29/2022 Telephone Cardiology at [address] [phone] Brunilda Richardson, RN Follow-up (Order for home oxygen to [facility]) Social History Tobacco Use Types Packs/Day Years [...] Telephone Encounter - Brunilda Richardson, RN - 12/29/2022 6:12 PM EDT Call placed to pt to see what is happening with him getting the oxygen from [facility]. Pt states that he was not able to get along with the person delivering the oxygen supplies to his home. The person delivering was n ot able to show him how to use the equipment. Pt would like to transfer services to [facility] out of [facility]. Order pended to Dr Starks and faxed with demographic sheet and Overnight oximetry report to: [facility] T: F: Pt is aware and expects to hear from [facility]. documented in this encounter Plan of Treatment Upcoming Encounters Date Type Department Care Team (Late st Contact Info) Description 02/26/2024 10:00 AM [facility] Hospital Encounter [place] [address] Arrived documented as of this encounter Visit Diagnoses Not on filedocumented in this encounter Care Teams Clinic Mgr Relationship Specialty Start Date End Date Andrew Siu DNP [address] [place] [address] PCP - General Family Medicine 08/08/22 documented as of this encounter
--- OUTSIDE RECORDS SUMMARY | 2023-12-11 18:43 | XMS_ITS | Encounter Summary ---
Author Organization [facility] [place] [address] Care Team Providers Care Events Intern Name Role Phone Andrew Siu DNP Primary Care Provider [phone] Encounter Details Date Type Department Care Team (Latest Contact Info) Description 10/31/2022 [place] [phone] Iman Balderas PA [facility] [address] [place] [address] End of battery life of cardiac resynchronization therapy defibrillator (ALTERNATIVE ENERGY ENGINEER-D) Social History Tobacco Use Types Packs/Day Years [...] AM EST Hospital Encounter [place] [phone] Arrived documented as of this encounter Visit Diagnoses Diagnosis End of battery life of cardiac resynchronization therapy defibrillator (ALTERNATIVE ENERGY ENGINEER-D) documented in this encounter Care Teams Events Intern Relationship Specialty Start Date End Date Andrew Siu DNP [address] [place] [address] PCP - General Family Medicine 08/08/22 documented as of this encounter
--- OUTSIDE RECORDS SUMMARY | 2023-12-11 18:43 | XMS_ITS | Encounter Summary ---
[place] [address] Care Team Providers Care Acetylene Plant Operator Name Role Phone Carlos Valdez MD Primary Care Provider [phone] Encounter Details Date Type Department Care Team (Latest Contact Info) Description 01/24/2022 Travel Social History Tobacco Use Types Packs/Day [...] Contact Info) Description 02/26/2024 10:00 AM [facility] Hospital Encounter Non-[place] [address] Arrived documented as of this encounter Visit Diagnoses Not on filedocumented in this encounter Care Teams Acetylene Plant Operator Relationship Specialty Start Date End Date Carlos Valdez MD [address] [phone] PCP - General 03/25/11 08/07/22 documented as of this encounter
--- OUTSIDE RECORDS SUMMARY | 2023-12-11 18:43 | XMS_ITS | Encounter Summary ---
Author Organization [facility] [place] [address] Care Team Providers Care Senior Software Test Engineer Name Role Phone Andrew Siu DNP Primary Care Provider [phone] Encounter Details Date Type Department Care Team (Late st Contact Info) Description 08/08/2022 3:30 PM EDT Office Visit Cardiology at [address] [phone] Xin Grewal, [facility] [place] [address] Chronic systolic heart failure; PAF (paroxysmal atrial fibrillation); Other cardiomyopathy; Essential hypertension Social History Tobacco Use Types Packs/Day Years [...] as of this encounter Progress Notes * Xin Grewal APRN - 08/08/2022 3:30 PM EDT Images from the original note were not included. Formerly [facility] [place] [address] CARDIOMYOPATHY/HEART FAILURE SERVICE OUTPATIENT CLINIC NOTE Jatinder Morrell 08/08/2022 Primary Care Provider: Andrew Siu APRN Referring Provider: Self HISTORY OF PRESENT ILLNESS: Jatinder Morrell is a 77 y.o. patient with history of pericarditis following PCM implant in 2012, complete heart block with CRTd upgrade in place, nonobstructive coronary artery disease, cardiomyopathy (recovered LV function) seen in routine follow up in the [facility]. Last seen 6 months ago. Doing well and no changes recommended at that time. Only brief episode NSVT. No AF on device check. Complains of unchanged fatigue - same over yrs - naps during the day - waking up at night. Weight up, but no edema. No Significant CORNEJO. No CP, syncope presycnope ?? Patient Active Problem List Diagnosis ??? Biventricular implantable cardioverter-defibrillator in situ- [facility] 02/19/2013 Cardiac Resynchronization Therapy ICD Upgrade (explant of pacemaker pulse generator), peripheral Subclavian Venography, Cinefluoroscopy, pacemaker pocket revision and defibrillation safety margin testing, under General anesthesia Indication: Cardiomopathy with congestive heart failure and ventricular dyssynchrony, ventricular pacing New Ventricular electrode: [employer] Model# 7122Q-58 cm Serial #[id number] Implanted 02/18/2013 Bipolar, steroid-tipped, active-fixation DF-4 lead Access: Axillary vein Location: Right ventricular apical septum (old) Atrial electrode: Medtronic, Model # 5568-52 cm Serial # [id number] Implanted 06/14/2012 Bipolar, steroid-tipped, active-fixation IS-1 lead Access: Not known Location Right atrium anterolateral Coronary sinus electrode: [employer] 1458Q/86 Serial number [id number] Implanted 02/18/2013 Quadripolar passive active fixation lead Access: Subclavian vein Location: Coronary sinus, posterolateral vein Pulse generator: [employer] [id number] Serial number [id number] Implanted 02/18/2013 COMMERCIAL ROOFING ESTIMATOR ICD Location: Subcutaneous Old ventricular lead : Medtronic 5075 Serial number [id number] (capped 02/18/2013) Old pulse generator: Medtronic ADDR01 Serial number [id number] (removed 02/18/2013) Detection and termination of ventricular tachyarrhythmias was performed with the ICD set to minimalsensitivity A T-Wave shock (4 S1 at 400 ms with a 310 ms delay and 1.2 Joule biphasic waveform) induced ventricular fibrillation that was successfully terminated with a 20 Joule shock (impedance 68 ohms). Generator change 03/25/16: New Pulse Generator [employer]ity [id number] Serial number [id number] Implanted 03/25/2016 COMMERCIAL ROOFING ESTIMATOR ICD Location: Subcutaneous ??? Non-ischemic cardiomyopathy Dilated [...] with left bundle branch block, PVCs, QRS llskwiqq=207 msec. Symptomatic CHB 06/13/12- s/p DDDR pacemaker 100% V paced rhythm SPEP/Free Light Chains- Results for JATINDER MORRELL ( ) as of 07/10/2016 19:35 Ref. Range 10/19/2015 14:06 10/19/2015 14:07 [place] Free Light Chains Latest Ref Range: 0.33 [...] Carvedilol ROSY/ARB Yes Losartan Spironolactone no Previously [id number], d/c secondary to side effects (hives), no rechallenge Amlodipine Yes Initiated 05/30 [place] AFIB? no Anticoagulated AICD/Type COMMERCIAL ROOFING ESTIMATOR-D LBBB, EF dropped to 35%- 04/02/13 back up at ~ 50% post COMMERCIAL ROOFING ESTIMATOR--> EF=65% NSR with LBBB, QRS= 170 ms [...] 08/01/12 ??? LBBB (left bundle branch block) BIU=723 ms New Symptomatic CHB 05/30-->declined pacer at initial presentation while traveling -S/p temp pacer-->Permanent DDDR pacer -LVEF~ 50-55%, ICD not indicated, but at risk for V paced rhythm dyssynchrony ??? Complete heart block Symptomatic bradycardia with CHB and LBBB, HR in the 20-30s Initially seen at a local ER, pacemaker recommended, but declined While in ICU, [place], called [facility] in cath report, but likely symptomatic bradycardia and CHB CHB- s/p temporary pacer 06/13/2012 - cath: Angiogram, mild irregularities of LAD, LCXF dominant, 30-40% mid RCA - No LV gram done S/p DDD-R Pacemaker Medtronic Adapta Dual Chamber Model # ADDR01, Serial number [id number] -[employer], [place] ??? Pericarditis New chest discomfort ~ 2 weeks post DDD pacer implant Elevated C reactive protein; pericardial effusion->improved with NSAID and colchicine. Should be on colchicine until Nov 18, 2012 Elevated ProBNP, some clinical response with diuretics Stress Echo, LVEF=44%, no change, no definite ischemia, poor exercise tolerance, no pericardial effusion noted on stress Trivial pleural effusion on chest x-ray Elevated SUR=287 a-->3.8 AN ESR=53 on index presentation --> [...] alcohol use of about 0.8 standard drinks per week. He reports that he does not use drugs. FAMILY HISTORY: Reviewed and updated as appropriate in the medical record. No family history on file. No significant CV disease. ALLERGIES: Reviewed and updated as appropriate in the medical record. Allergies Allergen Reactions ??? Lasix [Furosemide] Rash MEDICATIONS: Outpatient Medications Marked as Taking for the 08/08/22 encounter (Office Visit) with D'Krupa, SusanP, EMPLOYMENT CASE MANAGER Medication Sig Dispense Refill ??? pravastatin (Pravachol) 20 mg tablet ??? carvediloL (Coreg) 6.25 mg tablet Take 1 tablet by mouth 2 times daily (with meals). 180 tablet2 ??? magnesium oxide (Mag-Ox) 400 mg (241.3 mg magnesium) Tablet Take 400 mg by mouth daily. ??? gabapentin (Neurontin) 300 mg capsule Take 300 mg by mouth nightly. Indications: neuropathic pain ??? finasteride (Proscar) 5 mg tablet Take 5 mg by mouth daily. ??? docusate sodium (Colace) 100 mg capsule Take 100 mg by mouth daily. ??? [DISCONTINUED] apixaban (Eliquis) 5 mg Tablet Take 1 tablet by mouth 2 times daily. 90 tablet 3 ??? losartan (COZAAR) 100 mg Tablet Take 1 tablet by mouth daily. 90 tablet 0 ??? amLODIPine (Norvasc) 5 mg Tablet Take 1 tablet by mouth daily. 90 tablet 3 ??? multivitamin (THERAGRAN) Tablet Take 1 tablet by mouth daily. ??? pravastatin (PRAVACHOL) 10 mg Tablet Take 10 mg by mouth daily. ??? fcixkyv-fpizpwlzhfsim-qgjfufop (EXCEDRIN MIGRAINE) 250-250-65 mg per tablet Take [...] Signs: Wt Readings from Last 3 Encounters: 08/08/22 111.8 kg (246 lb 6.4 oz) 01/24/22 106.6 kg (235 lb 0.2 oz) 01/24/22 106.6 kg (235 lb) Temp Readings from Last 3 Encounters: 03/25/16 36.3 ??C (97.3 ??F) (Temporal) 02/11/13 35.6 ??C (96 ??F) (Temporal) BP Readings from Last 3 Encounters: 08/08/22 133/80 01/24/22 133/78 01/24/22 133/78 Pulse Readings from Last 3 Encounters: 08/08/22 66 01/24/22 73 01/24/22 73 SpO2: [96 %] General -pleasant and in NAD. HEENT [...] STUDIES: Chemistry Component Value Date/Time NA 141 08/08/2022 1418 K 4.3 08/08/2022 1418 CL 104 08/08/2022 1418 CO2 26 08/08/2022 1418 BUN 15 08/08/2022 1418 CREATININE 0.84 08/08/2022 1418 Component Value Date/Time CALCIUM 9.6 08/08/2022 1418 ALKPHOS 56 01/24/2022 1301 AST 12 01/24/2022 1301 ALT 11 01/24/2022 1301 BILITOT 1.0 01/24/2022 1301 ProBNP Date Value Ref Range Status 08/08/2022 165 <=449 pg/mL Final 01/24/2022 161 <=449 pg/mL Final 05/06/2019 202 (H) <=125 pg/mL Final CARDIAC STUDIES: Echo 07/2022 Interpretation Summary Left ventricular systolic function is normal. The left ventricular ejection fraction is 55% by Ramirez's biplane. Right ventricular systolic function is normal. No significant valvular disease noted on this study. The diameter at the level of the sinuses of Valsalva is 4.2 cm. Assessment Stable CV issues. LBBB (left bundle branch block) S/p COMMERCIAL ROOFING ESTIMATOR-D, 99% V Paced ?? H/O Pericarditis Without recurrence ?? Non-ischemic cardiomyopathy HFimpEF, ACC/AHA stage C. NYHA FC II Appears well compensated , euvolemic, lVEF 55% and stable On BB, ARB, CRtd. Intolerant MRA H/O Paroxysmal Atrial Fibrillation - none since - [id number] VASc Score 6 (Age, CHF, HTN, PE)ntolerance to DO AC due to hematuria with Eliquis - Consider DO AC in future if AF reoccurs - could consider ANI occlusion device Biventricular implantable cardioverter-defibrillator in situ- [facility] Stable HTN Good control Fatigue - chronic Offered change from carvedilol to metoprolol. He declined Will proceed with OnOx RECOMMENDATIONS: No med changes today Overnight oximetry F/U in 6 months with labs XIN GREWAL APRN documented in this encounter Plan of Treatment Upcoming Encounters Date Type Department Care Team (Late st Contact Info) Description 02/26/2024 10:00 AM EST Hospital Encounter [place] [address] Arrived documented as of this encounter Results * pro-Brain Natriuretic Peptide (08/08/2022 2:18 PM EDT) NT-proBNP 165 <=449 pg/mL [facility] Blood 08/08/2022 2:18 PM EDT 08/08/2022 2:29 PM EDT Narrative Resulting Agency Comment Spec In Lab Xin Grewal APRN CHEMISTRY ORDERABLES [facility] [place] [address] * Basic Metabolic Panel (non-fasting) (08/08/2022 2:18 PM EDT) Glucose 89 65 - 199 mg/dL [facility] Comment:Diabetes: >=200 mg/d L plus symptoms Blood Urea Nitrogen 15 10 - 20 mg/dL [facility] Creatinine 0.84 0.80 - 1.50 mg/dL [facility] Sodium 141 135 - 145 mmol/L [facility] Potassium 4.3 3.5 - 5.0 mmol/L [facility] Comment: Please note: ??Patients with WBC >100,000 may have falsely elevated Potassium levels. ??For accurate Potassium quantification in these patients send serum separator tube (gold top) for subsequent determinations. ??Contact the Clinical Chemistry Laboratory if there are any questions. Chloride 104 98 - 107 mmol/L [facility] Carbon Dioxide 26 22 - 31 mmol/L [facility] Anion Gap 11 5 - 15 mmol/L [facility] Calcium 9.6 8.5 - 10.5 mg/dL [facility] Est Glomerular Filtration Rate 90 >=60 mL/min/1. 73 m?? [facility] Comment: This patient's estimated [...] In Lab Xin Grewal APRN CHEMISTRY ORDERABLES Performing Organization Address City/State/[facility] Co de Phone Number [facility] [place] [place] [address] documented in this encounter Visit Diagnoses Diagnosis Chronic systolic heart failure PAF (paroxysmal atrial fibrillation) Atrial fibrillation Other cardiomyopathy Essential hypertension Unspecified essential hypertension documented in this encounter Care Teams Senior Software Test Engineer Relationship Specialty Start Date End Date Andrew Siu DNP [address] [place] [id number] PCP - General Family Medicine 08/08/22 documented as of this encounter
--- OUTSIDE RECORDS SUMMARY | 2023-12-11 18:43 | XMS_ITS | Encounter Summary ---
[place] [address] Care Team Providers Care Miter Operator Name Role Phone Carlos Valdez MD Primary Care Provider [phone] Encounter Details Date Type Department Care Team (Latest Contact Info) Description 01/24/2022 1:00 PM EST Laboratory Appointment Lab [address] [place] [phone] Chronic systolic heart failure Social History Tobacco [...] AM EST Hospital Encounter Non-Invasive [place] [phone] Arrived documented as of this encounter Procedures Procedure Name Priority Date/Time Associated Diagnosis Comments HC PROBNP STAT 01/24/2022 1:01 PM EST Chronic systolic heart failure HC VENIPUNCTURE Routine 01/24/2022 1:01 PM EST Chronic systolic heart failure COMPREHENSIVE METABOLIC PANEL STAT 01/24/2022 1:01 PM EST Chronic systolic heart failure documented in this encounter Results * (ABNORMAL) Comprehensive metabolic panel (non-fasting) (01/24/2022 1:01 PM EST) Glucose 93 65 - 199 mg/dL [facility] Comment:Diabetes: >=200 mg/d L plus symptoms Blood Urea Nitrogen 21(H) 10 - 20 mg/dL [facility] Creatinine 0.93 0.80 - 1.50 mg/dL [facility] Sodium 140 135 - 145 mmol/L [facility] Potassium 4.3 3.5 - 5.0 mmol/L [facility] Comment: Please note: ??Patients with WBC >100,000 may have falsely elevated Potassium levels. ??For accurate Potassium quantification in these patients send serum separator tube (gold top) for subsequent determinations. ??Contact the Clinical Chemistry Laboratory if there are any questions. Chloride 103 98 - 107 mmol/L [facility] Carbon Dioxide 28 22 - 31 mmol/L [facility] Anion Gap 9 5 - 15 mmol/L [facility] Calcium 10.0 8.5 - 10.5 mg/dL [facility] Protein, Total 6.6 6.1 - 8.0 g/dL [facility] Albumin 4.0 3.2 - 5.2 g/dL [facility] Aspartate Aminotransferase 12 0 - 39 unit/L [facility] Alanine Aminotransferase 11 0 - 55 unit/L [facility] Alkaline Phosphatase 56 40 - 130 unit/L [facility] Bilirubin, Total 1.0 0.2 - 1.3 mg/dL [facility] Est Glomerular Filtration Rate 85 >=60 mL/min/1. 73 m?? [facility] Comment: This patient's estimated [...] Narrative Resulting Agency Comment Spec In Lab Xni Grewal APRN CHEMISTRY ORDERABLES Performing Organization Address [facility]/ZIP Co de Phone Number [facility] [place] [address] * pro-Brain Natriuretic Peptide (01/24/2022 1:01 PM EST) NT-proBNP 161 <=449 pg/mL [facility] Blood 01/24/2022 1:01 PM EST 01/24/2022 1:08 PM EST Narrative Resulting Agency Comment Spec In Lab Xin Grewal APRN CHEMISTRY ORDERABLES Performing Organization Address [facility] Co de Phone Number [facility] [place] [address] * Lipid Panel (Reflex Direct LDL) (01/24/2022 1:01 PM EST) Cholesterol, Total 155 mg/dL [facility] Comment: Lower Risk: <200 mg/dL Average Risk: 200-239 mg/dL Higher Risk: >hy=350 mg/dL Triglyceride 275 mg/dL [facility] Comment: Average Risk/Lower Risk: <150 mg/dL Borderline High Risk: 150-199 mg/dL High Risk: 200-499 mg/dL Very High Risk: >bz=808 mg/dL HDL Cholesterol 39 mg/dL [facility] Comment: Males: ?? Higher Risk: <40 mg/dL Females: ?? Higher Risk: <50 mg/dL LDL Cholesterol 61 mg/dL [facility] Comment: Lowest Risk: <100 mg/dL Lower Risk: 100-129 mg/dL Borderline High Risk: 130-159 mg/dL High Risk: 160-189 mg/dL Very High Risk: >qq=292 mg/dL Cholesterol/HDL Ratio 4.0 ratio [facility] Lipid Interpretation See Note [facility] Comment: Lipid management should be guided by a patient? s ASCVD risk, goals and preferences. ACC/AHA Guidelines recommend high intensity statin if clinical ASCVD or LDL greater than or equal to 190 mg/dL. http://Tracksmith.com/XMO-FMZ-Bneuctsra Adults aged 40-75 with LDL 70-189 mg/dL should have their 10 year ASCVD risk estimated with the ACC/AHA ASCVD risk estimator and drafter supervisor http://tools.acc.org/LJXAQ-Lvvd-Pekjenqji/ Statin should be discussed if risk greater [...] Grewal APRN CHEMISTRY ORDERABLES Performing Organization Address City/State/[facility] Co de Phone Number [facility] [place] [address] documented in this encounter Visit Diagnoses Diagnosis Chronic systolic heart failure documented in this encounter Care Teams Miter Operator Relationship Specialty Start Date End Date Carlos Valdez MD [address] [place] [address] PCP - General 03/25/11 08/07/22 documented as of this encounter
--- OUTSIDE RECORDS SUMMARY | 2023-12-11 18:43 | XMS_ITS | Encounter Summary ---
[place] [address] Care Team Providers Care Pile Header Name Role Phone Andrew Siu DNP Primary Care Provider Encounter Details Date Type Department Care Team (Late st Contact Info) Description 11/02/2022 Telephone Cardiology at [address] [phone] Aleshia Willams Social History Tobacco Use Types Packs/Day Years [...] Encounters Date Type Department Care Team (Late Contact Info) Description 02/26/2024 10:00 AM EST Hospital Encounter Non-[place] [phone] Arrived documented as of this encounter Visit Diagnoses Not on filedocumented in this encounter Care Teams Pile Header Relationship Specialty Start Date End Date Andrew Siu DNP [address] [place] [address] PCP - General Family Medicine 08/08/22 documented as of this encounter
--- OUTSIDE RECORDS SUMMARY | 2023-12-11 18:43 | XMS_ITS | Encounter Summary ---
[place] [address] Care Team Providers Care Receiving Coordinator Name Role Phone Carlos Valdez MD Primary Care Provider [phone] Encounter Details Date Type Department Care Team (Latest Contact Info) Description 06/06/2022 10:00 AM EDT - 06/06/2022 11:59 PM EDT Hospital Encounter [place] [address] Discharge Disposition: Home Social History Tobacco Use [...] Sig Dispensed Refills Start Date End Date gabapentin (Neurontin) 300 mg capsuleIndications:ne uropathic pain [...] Take 100 mg by mouth nightly. 08/28/2023 apixaban (Eliquis) 5 mg TabletIndications:Atr ial fibrillation, unspecified type Take 1 tablet by mouth 2 times daily. 90 tablet 3 12/21/2021 08/08/2022 carvediloL (Coreg) 6.25 mg Tablet TAKE 1 TABLET BY MOUTH TWICE DAILY WITH MEALS 180 tablet 3 05/06/2020 06/08/2022 documented as of this encounter Plan of Treatment Upcoming Encounters Date Type Department Care Team (Late st Contact Info) Description 02/26/2024 10:00 AM EST Hospital Encounter Non[place] [phone] Arrived documented as of this encounter Procedures Procedure Name Priority Date/Time Associated Diagnosis Comments PRO ICD INTERROGATION REMOTE UP TO 90 DAYS Routine 04/08/2022 6:14 AM EST documented in this encounter Results * Cardiac Device Check - Remote (04/08/2022 6:14 AM EST) Anatomical Region Laterality Modality Other 04/08/2022 6:14 AM EST Clarice Simms MD IMPLANTABLE CARDIAC DEVICE documented in this encounter Visit Diagnoses Not on filedocumented in this encounter Care Teams Receiving Coordinator Relationship Specialty Start Date End Date Carlos Valdez MD [address] [place] [address] [address] [place] [address] PCP - General 03/25/11 08/07/22 documented as of this encounter
--- OUTSIDE RECORDS SUMMARY | 2023-12-11 18:43 | XMS_ITS | Encounter Summary ---
[place] [address] Care Team Providers Care Cabinet Worker Name Role Phone Carlos Valdez MD Primary Care Provider [phone] Encounter Details Date Type Department Care Team (Latest Contact Info) Description 01/17/2022 Travel Social History Tobacco Use Types Packs/Day [...] st Contact Info) Description 02/26/2024 10:00 AM [facility] Hospital Encounter Non-Invasive [place] [address] Arrived documented as of this encounter Visit Diagnoses Not on filedocumented in this encounter Care Teams Cabinet Worker Relationship Specialty Start Date End Date Carlos Valdez MD [address] [phone] PCP - General 03/25/11 08/07/22 documented as of this encounter
--- OUTSIDE RECORDS SUMMARY | 2023-12-11 18:43 | XMS_ITS | Encounter Summary ---
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 Outpatient remote interrogation report: See full report as a linked pdf document Date of transmission: 12/17/21 Device testing and regulating technician: Szymanski Device type: TEACHER OF GIFTED STUDENTS-D Presenting rhythm: AP/BP AP 84% BiVP 98% Battery: 11.3 months Episodes: 0 tachy AF 12/16/21 6:52 PM duration ~3.25 hours with appropriate mode switch Paroxysmal atrial fibrillation, sustained episode which is apparently new onset per chart review. [id number]: 5 (age2, CHF, HTN, nonobstructive CAD). If the patient has one [id number] score risk factor in addition to sex, anticoagulation should be considered for prevention of stroke (reference below). Jc Haynes, et al. Device-detected subclinical atrial tachyarrhythmias: definition, implications and management--an Heart Rhythm Association (ehra) consensus document, endorsed by Heart Rhythm Society (hrs), Jacklyn Licking Heart Rhythm Society (aphrs) and Sociedad Latinoamericana de Estimulaci??n Card??mecca y Electrofisiolog??a (soleace). Ep Europace 19.9 (2017): 5386-0730. Recommend formal anticoagulation. Discussed indications for anticoagulation with Mr. Mccauley. He is in agreement to start anticoagulation. Eliquis 5mg bid sent to [facility] [place] [facility] Recommend follow-up with Heart Failure team and in-person device check to be arranged as coordinated visits. POLA Cooper 12/21/2021 11:00 AM documented in this encounter Plan of Treatment Upcoming Encounters Date Type Department Care Team (Late st Contact Info) Description 02/26/2024 10:00 AM [facility] Hospital Encounter [place] [phone] Arrived documented as of this encounter Visit Diagnoses Diagnosis Biventricular implantable cardioverter-defibrillator in situ Chronic systolic heart failure Atrial fibrillation, unspecified type documented in this encounter Care Teams Travel Manager Relationship Specialty Start Date End Date Carlos Valdez MD [address] [place] [address] PCP - General 03/25/11 08/07/22 documented as of this encounter
--- OUTSIDE RECORDS SUMMARY | 2023-12-11 18:43 | XMS_ITS | Encounter Summary ---
[place] [address] Care Team Providers Care Bench Patternmaker Metal Name Role Phone Andrew Siu DNP Primary Care Provider [phone] Encounter Details Date Type Department Care Team (Latest Contact Info) Description 10/24/2022 Travel Social History Tobacco Use Types Packs/Day [...] AM EST Hospital Encounter Non[place] [address] Arrived documented as of this encounter Visit Diagnoses Not on filedocumented in this encounter Care Teams Bench Patternmaker Metal Relationship Specialty Start Date End Date Andrew Siu DNP [address] [place] [phone] PCP - General Family Medicine 08/08/22 documented as of this encounter
--- OUTSIDE RECORDS SUMMARY | 2023-12-11 18:43 | XMS_ITS | Encounter Summary ---
[place] [address] Care Team Providers Care Worship Pastor Name Role Phone Carlos Valdez MD Primary Care Provider [phone] Encounter Details Date Type Department Care Team (Latest Contact Info) Description 03/08/2022 10:00 AM EST - 03/08/2022 11:59 PM [facility] Hospital Encounter Non-[place] [phone] Discharge Disposition: Home Social History Tobacco Use [...] st Contact Info) Description 02/26/2024 10:00 AM [facility] Hospital Encounter Non-Invasive [place] [address] Arrived documented as of this encounter Visit Diagnoses Not on filedocumented in this encounter Care Teams Worship Pastor Relationship Specialty Start Date End Date Carlos Valdez MD [address] [place] [address] PCP - General 03/25/11 08/07/22 documented as of this encounter
--- OUTSIDE RECORDS SUMMARY | 2023-12-11 18:43 | XMS_ITS | Encounter Summary ---
Author Organization [facility] [place] [address] Care Team Providers Care Ruffler Name Role Phone Andrew Siu NAV Primary Care Provider [phone] Reason for Referral * Diagnostic Test (Routine) - Closed Specialty Diagnoses / Procedures Referred By Contac t Referred To Contact Cardiology Diagnoses Non-ischemic cardiomyopathy Procedures Echocardiogram Transthoracic Xin Grewal APRN [facility] [place] [address] [facility] [place] [address] Referral ID Status Reason Start Date Expiration Date V isits Requested Visits Authorized [id number] Closed Specialty Service Requested 01/24/2022 01/24/2023 1 1 Reason for Visit * Diagnostic Test (Routine) - Closed Specialty Diagnoses / Procedures Referred By Contac t Referred To Contact Cardiology Diagnoses Non-ischemic cardiomyopathy Procedures Echocardiogram Transthoracic Xin Grewal APRN [facility] [place] [address] [facility] [place] [address] Referral ID Status Reason Start Date Expiration Date V isits Requested Visits Authorized [id number] Closed Specialty Service Requested 01/24/2022 01/24/2023 1 1 Encounter Details Date Type Department Care Team (Latest Contact Info) Description 08/08/2022 12:32 PM EDT - 08/08/2022 11:59 PM EDT Hospital Encounter Non[place] [phone] Non-ischemic cardiomyopathy Discharge Disposition: Home Social History Tobacco Use [...] AM EST Hospital Encounter Non-[place] [phone] Arrived documented as of this encounter Procedures Procedure Name Priority Date/Time Associated Diagnosis Comments ECHO COMPLETE Routine 08/08/2022 1:50 PM EDT Non-ischemic cardiomyopathy documented in this encounter Results * ECHO COMPLETE (08/08/2022 1:50 PM EDT) EF 55 HEART[facility] SYSTEM Anatomical Region Laterality Modality Cardiac Other 08/08/2022 1:03 PM EDT Narrative 08/08/2022 2:07 PM EDT ? Echocardiogram Report Name: JATINDER MORRELL ?Study Date: 08/08/2022 01:03 PMBP: 141/84 mmHg ? Patient Location: 4A 0000 : 1945 ? Height: 195 cm ? Account: [id number] Age: 77 yrs ? Weight: 109 kg Gender: Male ?BSA: 2.4 m2 Ordering Physician: XIN GREWAL Referring Physician: SELF Performed By: Lorena Johns RDCS Reason For Study: Non-ischemic cardiomyopathy Exam Location: [facility]. Interpretation Summary Left ventricular systolic function is normal. The left ventricular ejection fraction is 55% by Ramirez's biplane. Right ventricular systolic function is normal. No significant valvular disease noted on this study. The diameter at the level of the sinuses of Valsalva is 4.2 cm. Procedure Complete-[id number]. Satisfactory quality. Left Ventricle Left ventricle is [...] Date: 301:03 PMBP: 141/84 mmHg Patient Location: [facility] : 1945 Height: 195 cm Account: [id number] Age: 77 yrs Weight: 109 kg Gender: Male BSA: 2.4 m2 Ordering Physician: XIN GREWAL Referring Physician: SELF Performed By: Lorena Johns RDCS Reason For Study: Non-ischemic cardiomyopathy Exam Location: [facility]. Interpretation Summary Left ventricular systolic function is normal. The left ventricularejection fraction is 55% by Ramirez's biplane. Right ventricular systolic function is normal. No significant valvular disease noted on this study. The diameter at the level of the sinuses of Valsalva is 4.2 cm. Procedure Complete-[id number]. Satisfactory quality. Left Ventricle Left ventricle is [...] Aneurysmal 15-16diffuse Xin Grewal APRN ECHO ORDERABLES documented in this encounter Visit Diagnoses Diagnosis Non-ischemic cardiomyopathy Other primary cardiomyopathies documented in this encounter Care Teams Ruffler Relationship Specialty Start Date End Date Andrew Siu DNP [address] [place] [id number] PCP - General Family Medicine 08/08/22 documented as of this encounter
--- OUTSIDE RECORDS SUMMARY | 2023-12-11 18:43 | XMS_ITS | Encounter Summary ---
Author Organization [facility] [place] [address] Care Team Providers Care Drive Away Driver Name Role Phone Andrew Siu DNP Primary Care Provider [phone] Encounter Details Date Type Department Care Team (Latest Contact Info) Description 01/06/2023 Orders Only Cardiology at [address] [phone] Xin Lux RELAY SHOP SUPERVISOR [facility] [place] [address] Presence of cardiac resynchronization therapy defibrillator (ALL ROUND BUTCHER-D) Social History Tobacco Use Types Packs/Day Years [...] AM EST Hospital Encounter Non-[place] [address] Arrived documented as of this encounter Results * Basic Metabolic Panel (non-fasting) (02/08/2023 9:54 AM EST) Glucose 86 65 - 199 mg/dL [facility] Comment:Diabetes: >=200 mg/d L plus symptoms Blood Urea Nitrogen 18 10 - 20 mg/dL [facility] Creatinine 0.91 0.80 - 1.50 mg/dL [facility] Sodium 141 135 - 145 mmol/L [facility] Potassium 4.6 3.5 - 5.0 mmol/L [facility] Comment: Please note: ??Patients with WBC >100,000 may have falsely elevated Potassium levels. ??For accurate Potassium quantification in these patients send serum separator tube (gold top) for subsequent determinations. ??Contact the Clinical Chemistry Laboratory if there are any questions. Chloride 104 98 - 107 mmol/L [facility] Carbon Dioxide 30 22 - 31 mmol/L [facility] Anion Gap 7 5 - 15 mmol/L [facility] Calcium 9.7 8.5 - 10.5 mg/dL [facility] Est Glomerular Filtration Rate 87 >=60 mL/min/1. 73 m?? [facility] Comment: This patient's estimated GFR was [...] Agency Comment Spec In Lab Xin Lux RELAY SHOP SUPERVISOR CHEMISTRY ORDERABLES [facility] [place] [address] documented in this encounter Visit Diagnoses Diagnosis Presence of cardiac resynchronization therapy defibrillator (ALL ROUND BUTCHER-D) documented in this encounter Care Teams Drive Away Driver Relationship Specialty Start Date End Date Andrew Siu DNP [address] [place] [address] PCP - General Family Medicine 08/08/22 documented as of this encounter
--- OUTSIDE RECORDS SUMMARY | 2023-12-11 18:43 | XMS_ITS | Encounter Summary ---
[place] [address] Care Team Providers Care Speed Belt Sander Tender Name Role Phone Carlos Valdez MD Primary Care Provider [phone] Encounter Details Date Type Department Care Team (Late st Contact Info) Description 09/21/2021 Orders Only Cardiology at [address] [phone] Social History Tobacco Use Types Packs/Day Years [...] AM EST Hospital Encounter Non-Invasive [place] [phone] Arrived documented as of this encounter Procedures Procedure Name Priority Date/Time Associated Diagnosis Comments CARDIAC DEVICE CHECK - REMOTE Routine 02/07/2022 5:00 AM EST CARDIAC DEVICE CHECK - REMOTE SCHEDULED Routine 09/21/2021 3:01 AM EDT documented in this encounter Results * Cardiac Device Check - Remote (02/07/2022 5:00 AM EST) Anatomical Region Laterality Modality Other 02/07/2022 5:00 AM EST Vincent Martinez MD IMPLANTABLE CARDIAC DEVICE * Cardiac device check - Remote Scheduled (09/21/2021 3:01 AM EDT) Implantable Pulse Generator Type Cardiac Resynchronization Therapy - Defibrillator [facility] Implantable Pulse Generator Model 3365-40 IDCO Implantable Pulse Generator Serial Number [id number] IDCO Implantable Pulse Generator Custom Car Builder [facility] IDCO Implantable Pulse Generator Implant Date IDCO Implantable Pulse Generator Implanter N/A IDCO Implantable Pulse Generator Implanter Contact Information N/A IDCO Implantable Pulse Generator Implanting Facility N/A IDCO Implantable Lead Special Function Sense and Pace in RA IDCO Implantable Lead Model 5568 IDCO Implantable Lead Serial Number [id number] IDCO Implantable Lead Custom Car Builder Medtronic IDCO Implantable Lead Implant Date IDCO Implantable Lead Polarity Type Bipolar Lead IDCO Implantable Lead Location Right Atrium IDCO Implantable Lead Connection Status Connected IDCO Implantable Lead Special Function Pace in LV IDCO Implantable Lead Model 1458Q Quartet(TM) IDCO Implantable Lead Serial Number [id number] IDCO Implantable Lead Custom Car Builder [facility] IDCO Implantable Lead Implant Date IDCO Implantable Lead Polarity Type Quadripolar Lead IDCO Implantable Lead Location Left Ventricle IDCO Implantable Lead Connection Status Connected IDCO Implantable Lead Special Function Defibrillation in RV IDCO Implantable Lead Model 7122Q Durata(TM) IDCO Implantable Lead Serial Number [id number] IDCO Implantable Lead Custom Car Builder [facility] IDCO Implantable Lead Implant Date IDCO Implantable Lead Polarity Type Bipolar Lead IDCO Implantable Lead Location Right Ventricle IDCO Implantable Lead Connection Status Connected IDCO Date Time Interrogation Session [id number] IDCO Type Interrogation Session Remote Scheduled IDCO Re-programmed During Session NO IDCO Date Time Previous Interrogation Session [id number] IDCO Clinician Name N/A IDCO Clinician Contact Information N/A IDCO Clinic Name N/A IDCO Battery Date Time of Measurements [id number] IDCO Battery Status Middle of Service IDCO Battery Voltage 2.81 V IDCO Battery Remaining Longevity 12 mo IDCO Battery Remaining Percentage 25.0 % IDCO Battery COPY HOLDER Trigger When current voltage < 2.59 volts IDCO Capacitor Charge Type Reformation IDCO Capacitor Last Charge Date Time [id number] IDCO Capacitor Charge Time 10.1 s IDCO Capacitor Charge Energy 40 J IDCO Lead Channel Measurements Date and Time Start [id number] IDCO Lead Channel Measurements Date and Time End IDCO Lead Channel Sensing Intrinsic Amplitude 1.9 mV IDCO Lead Channel Sensing Polarity Bipolar IDCO Lead Channel Pacing Threshold Amplitude 1.25 V IDCO Lead Channel Pacing Threshold Pulse Width 1.0 ms IDCO Lead Channel Pacing Threshold Polarity Bipolar IDCO Lead Channel Pacing Threshold Measurement Method Resident Surgeon Manual IDCO Lead Channel Impedance Value 340 Ohm IDCO Lead Channel Impedance Polarity Bipolar IDCO Lead Channel Status Null IDCO Lead Channel Measurements Date and Time Start IDCO Lead Channel Measurements Date and Time End IDCO Lead Channel Sensing Intrinsic Amplitude 12.0 mV IDCO Lead Channel Sensing Polarity Bipolar IDCO Lead Channel Pacing Threshold Amplitude 0.875 V IDCO Lead Channel Pacing Threshold Pulse Width 0.5 ms IDCO Lead Channel Pacing Threshold Polarity Bipolar IDCO Lead Channel Pacing Threshold Measurement Method Device Automatic IDCO Lead Channel Impedance Value 340 Ohm IDCO Lead Channel Impedance Polarity Bipolar IDCO Lead Channel Status Null IDCO Lead Channel Measurements Date and Time Start IDCO Lead Channel Measurements Date and Time End IDCO Lead Channel Pacing Threshold Amplitude 0.75 V IDCO Lead Channel Pacing Threshold Pulse Width 0.8 ms IDCO Lead Channel Pacing Threshold Polarity Bipolar IDCO Lead Channel Pacing Threshold Measurement Method Resident Surgeon Manual IDCO Lead Channel Impedance Value 750 Ohm IDCO Lead Channel Impedance Polarity Bipolar IDCO Lead Channel Status Null IDCO Lead High Voltage Channel Measurement Type Shock IDCO Lead High Voltage Channel Date Time IDCO Lead High Voltage Channel Impedance 71 Ohm IDCO Lead High Voltage Channel Status Null IDCO Lead High Voltage Channel Measurement Type Low Voltage Pulse IDCO Lead High Voltage Channel Date Time IDCO Lead High Voltage Channel Impedance 71 Ohm IDCO Lead High Voltage Channel Status Null IDCO FIRST DYER LV-RV Delay 30 ms IDCO Ventricular chambers paced during FIRST DYER pacing. BiV IDCO Magnet Response Normal IDCO [...] Setting Pacing Capture Mode Fixed Pacing IDCO [facility]_IDC_SET_LEAD HVCHNL_SHOCK_VEC TOR_ANODE_LOCATI ON_1 Right Ventricle IDCO [facility]_IDC_SET_LEAD HVCHNL_SHOCK_VEC TOR_ANODE_ELECTR ODE_1 Coil IDCO [facility]_IDC_SET_LEAD HVCHNL_SHOCK_VEC TOR_CATHODE_LOCA TION_1 Other IDCO [facility]_IDC_SET_LEAD HVCHNL_SHOCK_VEC TOR_CATHODE_ELEC TRODE_1 Can IDCO Grabiel Setting [...] /min IDCO Statistic Atrial Heart Rate Max 330 {beats} /min IDCO Statistic Atrial Heart Rate Min 50 {beats} /min IDCO Statistic Ventricular Heart Rate Max 270 {beats} /min IDCO Statistic Ventricular Heart Rate Mean 71 {beats} /min IDCO Statistic Ventricular Heart Rate Min 50 {beats} /min IDCO Grabiel Statistic Date Time End IDCO Grabiel Statistic Date Time Start IDCO Grabiel Statistic RA Percent Paced 85.0 % IDCO Grabiel Statistic AP CHIEF CUSTOMER OFFICER Percent 84.0 % IDCO Grabiel Statistic CHIEF CUSTOMER OFFICER Percent 15.0 % IDCO Grabiel Statistic AP VS Percent 1.0 % IDCO Grabiel Statistic VS Percent 1.0 % IDCO Atrial Tachy Statistic Date Time End IDCO Atrial Tachy Statistic Date Time Start IDCO Atrial Tachy Statistic Maximum Mode Switch Duration 346 s IDCO Atrial Tachy Statistic Percent Time In Mode Switch 1 % IDCO Atrial Tachy Statistic Number Of Mode Switches 6 {switch es} IDCO Atrial Tachy Statistic Number Of Mode Switches Per Day 0 {switch es} IDCO Atrial Tachy Statistic AT/AF [place] Percent 1 % IDCO FIRST DYER Statistic Date Time End IDCO FIRST DYER Statistic Date Time Start IDCO FIRST DYER Statistic FIRST DYER Percent Paced 99.0 % IDCO Therapy Statistic Recent Date Time End IDCO Therapy Statistic Recent Date Time Start IDCO Therapy Statistic Recent Shocks Delivered 0 {shocks } IDCO Therapy Statistic Recent Shocks Aborted 0 {shocks } IDCO Therapy Statistic Recent ATP Delivered 0 {seq} IDCO Episode Statistic Vendor Type Category Non-sustained [place] IDCO Episode Statistic Type Category Other IDCO Episode Statistic Recent Count 1 IDCO Episode Statistic Vendor Type Category [place] IDCO Episode Statistic Type Category [place] IDCO Episode Statistic Recent Count 0 IDCO Episode Statistic Vendor Type Category VF IDCO Episode Statistic Type Category VF IDCO Episode Statistic Recent Count 0 IDCO Episode Statistic Vendor Type Category SVT Timeout IDCO Episode Statistic Type Category SVT IDCO Episode Statistic Recent Count 0 IDCO Episode Statistic Recent Date Time End IDCO Episode Statistic Recent Date Time Start IDCO Episode Identifier [id number] IDCO Episode Date Time [id number] IDCO Episode Detection And Therapy Details Non-sustained IDCO Episode Duration 10 s IDCO Episode Vendor Type Category Non-sustained [place] IDCO Episode Type Category Other IDCO Episode Detection Interval Ventricular 226 ms IDCO Episode Identifier [id number] IDCO Episode Date Time IDCO Episode Detection And Therapy Details AMS IDCO Episode Duration 6 s IDCO Episode Vendor Type Category AMS IDCO Episode Type Category Other IDCO Episode Identifier [id number] IDCO Episode Date Time [id number] IDCO Episode Detection And Therapy Details AMS IDCO Episode Duration 346 s IDCO Episode Vendor Type Category AMS IDCO Episode Type Category Other IDCO Episode Identifier [id number] IDCO Episode Date Time [id number] IDCO Episode Detection And Therapy Details AMS IDCO Episode Duration 284 s IDCO Episode Vendor Type Category AMS IDCO Episode Type Category Other IDCO Episode Identifier [id number] IDCO Episode Date Time IDCO Episode Detection And Therapy Details AMS IDCO Episode Duration 44 s IDCO Episode Vendor Type Category AMS IDCO Episode Type Category Other IDCO Episode Identifier [id number] IDCO Episode Date Time IDCO Episode Detection And Therapy Details AMS IDCO Episode Duration 8 s IDCO Episode Vendor Type Category AMS IDCO Episode Type Category Other IDCO Episode Identifier [id number] IDCO Episode Date Time IDCO Episode Detection And Therapy Details AMS IDCO Episode Duration 8 s IDCO Episode Vendor Type Category AMS IDCO Episode Type Category Other IDCO Anatomical Region Laterality Modality Other 09/21/2021 3:01 AM EDT Physician Cardiology IMPLANTABLE CARD IAC DEVICE documented in this encounter Visit Diagnoses Not on filedocumented in this encounter Care Teams Speed Belt Sander Tender Relationship Specialty Start Date End Date Carlos Valdez MD [address] [place] [address] PCP - General 03/25/11 08/07/22 documented as of this encounter
--- OUTSIDE RECORDS SUMMARY | 2023-12-11 18:44 | XMS_ITS | Encounter Summary ---
[place] [address] Care Team Providers Care Investment Trader Name Role Phone Carlos Valdez MD Primary Care Provider [phone] Encounter Details Date Type Department Care Team (Late st Contact Info) Description 01/29/2019 External Results Cardiology at [address] [phone] Carlos Valdez MD [address] [place] [address] [id number] Social History Tobacco Use Types Packs/Day Years [...] AM EST Hospital Encounter Non-Invasive [place] [address] Arrived documented as of this encounter Procedures Procedure Name Priority Date/Time Associated Diagnosis Comments EP DEVICE SCAN Routine 01/19/2019 documented in this encounter Results * Scan Doc: EP Device (01/19/2019) Anatomical Region Laterality Modality Other Carlos Valdez MD MEDIA MGR SCAN EXT O RDR/RSLT documented in this encounter Visit Diagnoses Not on filedocumented in this encounter Care Teams Investment Trader Relationship Specialty Start Date End Date Carlos Valdez MD [address] [place] [address] PCP - General 03/25/11 08/07/22 documented as of this encounter
--- OUTSIDE RECORDS SUMMARY | 2023-12-11 18:44 | XMS_ITS | Encounter Summary ---
[place] [address] Care Team Providers Care Budget Consultant Name Role Phone Carlos Valdez MD Primary Care Provider [phone] Encounter Details Date Type Department Care Team (Late st Contact Info) Description 11/05/2019 Orders Only Cardiology at [address] [phone] Social History Tobacco Use Types Packs/Day Years [...] st Contact Info) Description 02/26/2024 10:00 AM [facility] Hospital Encounter Non-Invasive [place] [phone] Arrived documented as of this encounter Procedures Procedure Name Priority Date/Time Associated Diagnosis Comments CARDIAC DEVICE CHECK - REMOTE SCHEDULED Routine 11/05/2019 2:00 AM EDT documented in this encounter Results * Cardiac device check - Remote Scheduled (11/05/2019 2:00 AM EDT) [facility] Implantable Pulse Generator Type Cardiac Resynchronization Therapy - Defibrillator [facility] Implantable Pulse Generator Model 3365-40 IDCO Implantable Pulse Generator Serial Number [id number] IDCO Implantable Pulse Generator Evening Sitter [facility] IDCO Implantable Pulse Generator Implant Date IDCO Implantable Pulse Generator Implanter N/A IDCO Implantable Pulse Generator Implanter Contact Information N/A IDCO Implantable Pulse Generator Implanting Facility N/A IDCO Implantable Lead Special Function Sense and Pace in RA IDCO Implantable Lead Model 5568 IDCO Implantable Lead Serial Number [id number] IDCO Implantable Lead Evening Sitter Medtronic IDCO Implantable Lead Implant Date IDCO Implantable Lead Polarity Type Bipolar Lead IDCO Implantable Lead Location Right Atrium IDCO Implantable Lead Connection Status Connected IDCO Implantable Lead Special Function Pace in LV IDCO Implantable Lead Model 1458Q Quartet(R) IDCO Implantable Lead Serial Number [id number] IDCO Implantable Lead Evening Sitter [facility] IDCO Implantable Lead Implant Date IDCO Implantable Lead Polarity Type Quadripolar Lead IDCO Implantable Lead Location Left Ventricle IDCO Implantable Lead Connection Status Connected IDCO Implantable Lead Special Function Defibrillation in RV IDCO Implantable Lead Model 7122Q Durata(R) IDCO Implantable Lead Serial Number [id number] IDCO Implantable Lead Evening Sitter [facility] IDCO Implantable Lead Implant Date IDCO Implantable Lead Polarity Type Bipolar Lead IDCO Implantable Lead Location Right Ventricle IDCO Implantable Lead Connection Status Connected IDCO Date Time Interrogation Session [id number] IDCO Type Interrogation Session Remote Scheduled IDCO Re-programmed During Session NO IDCO Date Time Previous Interrogation Session [id number] IDCO Clinician Name N/A IDCO Clinician Contact Information N/A IDCO Clinic Name N/A IDCO Battery Date Time of Measurements [id number] IDCO Battery Status Middle of Service IDCO Battery Voltage 2.92 V IDCO Battery Remaining Longevity 23 mo IDCO Battery Remaining Percentage 44.0 % IDCO Battery GARDEN WORKER Trigger When current voltage < 2.59 volts IDCO Capacitor Charge Type Reformation IDCO Capacitor Last Charge Date Time [id number] IDCO Capacitor Charge Time 9.8 s IDCO Capacitor Charge Energy 40 J IDCO Lead Channel Measurements Date and Time Start [id number] IDCO Lead Channel Measurements Date and Time End [id number] IDCO Lead Channel Sensing Intrinsic Amplitude 1.8 mV IDCO Lead Channel Sensing Polarity Bipolar IDCO Lead Channel Pacing Threshold Amplitude 1.5 V IDCO Lead Channel Pacing Threshold Pulse Width 1.0 ms IDCO Lead Channel Pacing Threshold Polarity Bipolar IDCO Lead Channel Pacing Threshold Measurement Method Coin Rolling Machine Operator Manual IDCO Lead Channel Impedance Value 380 Ohm IDCO Lead Channel Impedance Polarity Bipolar IDCO Lead Channel Status Null IDCO Lead Channel Measurements Date and Time Start [id number] IDCO Lead Channel Measurements Date and Time End [id number] IDCO Lead Channel Sensing Intrinsic Amplitude 12.0 [...] Lead Channel Measurements Date and Time Start [id number] IDCO Lead Channel Measurements Date and Time End [id number] IDCO Lead Channel Pacing Threshold Amplitude 1.0 V IDCO Lead Channel Pacing Threshold Pulse Width 0.8 ms IDCO Lead Channel Pacing Threshold Polarity Bipolar IDCO Lead Channel Pacing Threshold Measurement Method Coin Rolling Machine Operator Manual IDCO Lead Channel Impedance Value 800 Ohm IDCO Lead Channel Impedance Polarity Bipolar IDCO Lead Channel Status Null IDCO Lead High Voltage Channel Measurement Type Shock IDCO Lead High Voltage Channel Date Time IDCO Lead High Voltage Channel Impedance 69 Ohm IDCO Lead High Voltage Channel Status Null IDCO Lead High Voltage Channel Measurement Type Low Voltage Pulse IDCO Lead High Voltage Channel Date Time IDCO Lead High Voltage Channel Impedance 69 Ohm IDCO Lead High Voltage Channel Status Null IDCO SILK WINDING MACHINE OPERATOR LV-RV Delay 30 ms IDCO Ventricular chambers paced during SILK WINDING MACHINE OPERATOR pacing. BiV IDCO Magnet Response Normal IDCO [...] V IDCO Lead Channel Setting Pacing Amplitude 1.75 V IDCO Lead Channel Setting Pacing Pulse [...] Setting Pacing Capture Mode Fixed Pacing IDCO [facility]_IDC_SET_LEAD HVCHNL_SHOCK_VEC TOR_ANODE_LOCATI ON_1 Right Ventricle IDCO [facility]_IDC_SET_LEAD HVCHNL_SHOCK_VEC TOR_ANODE_ELECTR ODE_1 Coil IDCO [facility]_IDC_SET_LEAD HVCHNL_SHOCK_VEC TOR_CATHODE_LOCA TION_1 Other IDCO [facility]_IDC_SET_LEAD HVCHNL_SHOCK_VEC TOR_CATHODE_ELEC TRODE_1 Can IDCO Grabiel [...] End IDCO Statistic Atrial Heart Rate Mean 72 {beats} /min IDCO Statistic Atrial Heart Rate Max 330 {beats} /min IDCO Statistic Atrial Heart Rate Min 50 {beats} /min IDCO Statistic Ventricular Heart Rate Max 230 {beats} /min IDCO Statistic Ventricular Heart Rate Mean 72 {beats} /min IDCO Statistic Ventricular Heart Rate Min 50 {beats} /min IDCO Grabiel Statistic Date Time End IDCO Grabiel Statistic Date Time Start IDCO Grabiel Statistic RA Percent Paced 82.0 % IDCO Grabiel Statistic AP BIOLOGIST Percent 83.0 % IDCO Grabiel Statistic BIOLOGIST Percent 17.0 % IDCO Grabiel Statistic AP VS Percent 1.0 % IDCO Grabiel Statistic VS Percent 1.0 % IDCO Atrial Tachy Statistic Date Time End IDCO Atrial Tachy Statistic Date Time Start IDCO Atrial Tachy Statistic Maximum Mode Switch Duration 6,526 s IDCO Atrial Tachy Statistic Percent Time In Mode Switch 1 % IDCO Atrial Tachy Statistic Number Of Mode Switches 6 {switch es} IDCO Atrial Tachy Statistic Number Of Mode Switches Per Day 0 {switch es} IDCO Atrial Tachy Statistic AT/AF [place] Percent 1 % IDCO SILK WINDING MACHINE OPERATOR Statistic Date Time End IDCO SILK WINDING MACHINE OPERATOR Statistic Date Time Start IDCO SILK WINDING MACHINE OPERATOR Statistic SILK WINDING MACHINE OPERATOR Percent Paced 99.0 % IDCO Therapy Statistic Recent Date Time End IDCO Therapy Statistic Recent Date Time Start IDCO Therapy Statistic Recent Shocks Delivered 0 {shocks } IDCO Therapy Statistic Recent Shocks Aborted 0 {shocks } IDCO Therapy Statistic Recent ATP Delivered 0 {seq} IDCO Episode Statistic Recent Date Time End [id number] IDCO Episode Statistic Recent Date Time Start [id number] IDCO Episode Identifier [id number] IDCO Episode Date Time [id number] IDCO Episode Detection And Therapy Details AMS IDCO Episode Duration 48 s IDCO Episode Vendor Type Category AMS IDCO Episode Type Category Other IDCO Episode Identifier [id number] IDCO Episode Date Time [id number] IDCO Episode Detection And Therapy Details AMS IDCO Episode Duration 36 s IDCO Episode Vendor Type Category AMS IDCO Episode Type Category Other IDCO Episode Identifier [id number] IDCO Episode Date Time [id number] IDCO Episode Detection And Therapy Details AMS IDCO Episode Duration 36 s IDCO Episode Vendor Type Category AMS IDCO Episode Type Category Other IDCO Episode Identifier [id number] IDCO Episode Date Time [id number] IDCO Episode Detection And Therapy Details AMS IDCO Episode Duration 34 s IDCO Episode Vendor Type Category AMS IDCO Episode Type Category Other IDCO Episode Identifier [id number] IDCO Episode Date Time [id number] IDCO Episode Detection And Therapy Details AMS IDCO Episode Duration 6,526 s IDCO Episode Vendor Type Category AMS IDCO Episode Type Category Other IDCO Episode Identifier [id number] IDCO Episode Date Time [id number] IDCO Episode Detection And Therapy Details AMS IDCO Episode Duration 8 s IDCO Episode Vendor Type Category AMS IDCO Episode Type Category Other IDCO Anatomical Region Laterality Modality Other 11/05/2019 2:00 AM EDT Physician Cardiology IMPLANTABLE CARD IAC DEVICE documented in this encounter Visit Diagnoses Not on filedocumented in this encounter Care Teams Budget Consultant Relationship Specialty Start Date End Date Carlos Valdez MD [address] [place] [address] PCP - General 03/25/11 08/07/22 documented as of this encounter
--- OUTSIDE RECORDS SUMMARY | 2023-12-11 18:44 | XMS_ITS | Encounter Summary ---
[place] [address] Care Team Providers Care Aircraft Cleaner Name Role Phone Carlos Valdez MD Primary Care Provider [phone] Encounter Details Date Type Department Care Team (Late st Contact Info) Description 01/10/2020 Orders Only Cardiology at [address] [phone] Social History Tobacco Use Types Packs/Day Years [...] AM EST Hospital Encounter Non-Invasive [place] [address] Arrived documented as of this encounter Procedures Procedure Name Priority Date/Time Associated Diagnosis Comments CARDIAC DEVICE CHECK - REMOTE SCHEDULED Routine 01/10/2020 3:05 AM EDT documented in this encounter Results * Cardiac device check - Remote Scheduled (01/10/2020 3:05 AM EDT) [facility] Implantable Pulse Generator Type Cardiac Resynchronization Therapy - Defibrillator IDCO Implantable Pulse Generator Model 3365-40 IDCO Implantable Pulse Generator Serial Number [id number] IDCO Implantable Pulse Generator Sheet Metal [facility] IDCO Implantable Pulse Generator Implant Date IDCO Implantable Pulse Generator Implanter N/A IDCO Implantable Pulse Generator Implanter Contact Information N/A IDCO Implantable Pulse Generator Implanting Facility N/A IDCO Implantable Lead Special Function Sense and Pace in RA IDCO Implantable Lead Model 5568 IDCO Implantable Lead Serial Number [id number] IDCO Implantable Lead Sheet Metal Smith Medtronic IDCO Implantable Lead Implant Date IDCO Implantable Lead Polarity Type Bipolar Lead IDCO Implantable Lead Location Right Atrium IDCO Implantable Lead Connection Status Connected IDCO Implantable Lead Special Function Pace in LV IDCO Implantable Lead Model 1458Q Quartet(R) IDCO Implantable Lead Serial Number [id number] IDCO Implantable Lead Sheet Metal [facility] IDCO Implantable Lead Implant Date IDCO Implantable Lead Polarity Type Quadripolar Lead IDCO Implantable Lead Location Left Ventricle IDCO Implantable Lead Connection Status Connected IDCO Implantable Lead Special Function Defibrillation in RV IDCO Implantable Lead Model 7122Q Durata(R) IDCO Implantable Lead Serial Number [id number] IDCO Implantable Lead Sheet Metal [facility] IDCO Implantable Lead Implant Date IDCO Implantable Lead Polarity Type Bipolar Lead IDCO Implantable Lead Location Right Ventricle IDCO Implantable Lead Connection Status Connected IDCO Date Time Interrogation Session [id number] IDCO Type Interrogation Session Remote Scheduled IDCO Re-programmed During Session NO IDCO Date Time Previous Interrogation Session [id number] IDCO Clinician Name N/A IDCO Clinician Contact Information N/A IDCO Clinic Name N/A IDCO Battery Date Time of Measurements [id number] IDCO Battery Status Middle of Service IDCO Battery Voltage 2.92 V IDCO Battery Remaining Longevity 20 mo IDCO Battery Remaining Percentage 41.0 % IDCO Battery STRUCTURAL DESIGN ENGINEER Trigger When current voltage < 2.59 volts IDCO Capacitor Charge Type Reformation IDCO Capacitor Last Charge Date Time [id number] IDCO Capacitor Charge Time 9.6 s IDCO Capacitor Charge Energy 40 J IDCO Lead Channel Measurements Date and Time Start [id number] IDCO Lead Channel Measurements Date and Time End [id number] IDCO Lead Channel Sensing Intrinsic Amplitude 2.4 mV IDCO Lead Channel Sensing Polarity Bipolar IDCO Lead Channel Pacing Threshold Amplitude 1.5 V IDCO Lead Channel Pacing Threshold Pulse Width 1.0 ms IDCO Lead Channel Pacing Threshold Polarity Bipolar IDCO Lead Channel Pacing Threshold Measurement Method Shot Blast Equipment Operator Manual IDCO Lead Channel Impedance Value 360 Ohm IDCO Lead Channel Impedance Polarity Bipolar IDCO Lead Channel Status Null IDCO Lead Channel Measurements Date and Time Start [id number] IDCO Lead Channel Measurements Date and Time [...] Lead Channel Measurements Date and Time Start [id number] IDCO Lead Channel Measurements Date and Time End IDCO Lead Channel Pacing Threshold Amplitude 1.0 V IDCO Lead Channel Pacing Threshold Pulse Width 0.8 ms IDCO Lead Channel Pacing Threshold Polarity Bipolar IDCO Lead Channel Pacing Threshold Measurement Method Shot Blast Equipment Operator Manual IDCO Lead Channel Impedance Value 800 Ohm IDCO Lead Channel Impedance Polarity Bipolar IDCO Lead Channel Status Null IDCO Lead High Voltage Channel Measurement Type Shock IDCO Lead High Voltage Channel Date Time IDCO Lead High Voltage Channel Impedance 72 Ohm IDCO Lead High Voltage Channel Status Null IDCO Lead High Voltage Channel Measurement Type Low Voltage Pulse IDCO Lead High Voltage Channel Date Time IDCO Lead High Voltage Channel Impedance 72 Ohm IDCO Lead High Voltage Channel Status Null IDCO MOLD FILLER LV-RV Delay 30 ms IDCO Ventricular chambers paced during MOLD FILLER pacing. BiV IDCO Magnet Response Normal IDCO [...] Setting Pacing Capture Mode Fixed Pacing IDCO MDC_IDC_SET_LEAD HVCHNL_SHOCK_VEC TOR_ANODE_LOCATI ON_1 Right Ventricle IDCO [facility]_IDC_SET_LEAD HVCHNL_SHOCK_VEC TOR_ANODE_ELECTR ODE_1 Coil IDCO [facility]_IDC_SET_LEAD HVCHNL_SHOCK_VEC TOR_CATHODE_LOCA TION_1 Other IDCO [facility]_IDC_SET_LEAD HVCHNL_SHOCK_VEC TOR_CATHODE_ELEC TRODE_1 [...] /min IDCO Statistic Ventricular Heart Rate Max 330 {beats} /min IDCO Statistic Ventricular Heart Rate Mean 72 {beats} /min IDCO Statistic Ventricular Heart Rate Min 50 {beats} /min IDCO Grabiel Statistic Date Time End IDCO Grabiel Statistic Date Time Start IDCO Grabiel Statistic RA Percent Paced 82.0 % IDCO Grabiel Statistic AP REVERSE LOGISTICS ANALYST Percent 82.0 % IDCO Grabiel Statistic REVERSE LOGISTICS ANALYST Percent 18.0 % IDCO Grabiel Statistic AP VS Percent [...] {switch es} IDCO Atrial Tachy Statistic AT/AF [place] Percent 1 % IDCO MOLD FILLER Statistic Date Time End IDCO MOLD FILLER Statistic Date Time Start IDCO MOLD FILLER Statistic MOLD FILLER Percent Paced 99.0 % IDCO Therapy Statistic [...] IDCO Episode Statistic Recent Date Time End [id number] IDCO Episode Statistic Recent Date Time Start [id number] IDCO Episode Identifier [id number] IDCO Episode Date Time [id number] IDCO Episode Detection And Therapy Details Non-sustained IDCO Episode Duration 8 s IDCO Episode Vendor Type Category Non-sustained [place] IDCO Episode Type Category Other IDCO Episode Detection Interval Ventricular 257 ms IDCO Episode Identifier [id number] IDCO Episode Date Time [id number] IDCO Episode Detection And Therapy Details AMS IDCO Episode Duration 48 s IDCO Episode Vendor Type Category AMS IDCO Episode Type Category Other IDCO Episode Identifier [id number] IDCO Episode Date Time [id number] IDCO Episode Detection And Therapy Details AMS IDCO Episode Duration 36 s IDCO Episode Vendor Type Category AMS IDCO Episode Type Category Other IDCO Episode Identifier [id number] IDCO Episode Date Time [id number] IDCO Episode Detection And Therapy Details AMS IDCO Episode Duration 36 s IDCO Episode Vendor Type Category AMS IDCO Episode Type Category Other IDCO Episode Identifier [id number] IDCO Episode Date Time [id number] IDCO Episode Detection And Therapy Details AMS IDCO Episode Duration 34 s IDCO Episode Vendor Type Category AMS IDCO Episode Type Category Other IDCO Episode Identifier [id number] IDCO Episode Date Time [id number] IDCO Episode Detection And Therapy Details AMS IDCO Episode Duration 6,526 s IDCO Episode Vendor Type Category AMS IDCO Episode Type Category Other IDCO Episode Identifier [id number] IDCO Episode Date Time [id number] IDCO Episode Detection And Therapy Details AMS IDCO Episode Duration 8 s IDCO Episode Vendor Type Category AMS IDCO Episode Type Category Other IDCO Anatomical Region Laterality Modality Other 01/10/2020 3:05 AM EDT Physician Cardiology IMPLANTABLE CARD IAC DEVICE documented in this encounter Visit Diagnoses Not on filedocumented in this encounter Care Teams Aircraft Cleaner Relationship Specialty Start Date End Date Carlos Valdez MD [address] [place] [address] PCP - General 03/25/11 08/07/22 documented as of this encounter
--- OUTSIDE RECORDS SUMMARY | 2023-12-11 18:44 | XMS_ITS | Encounter Summary ---
Author Organization [facility] [place] [address] Care Team Providers Care Printed Circuit Board Pcb Draftsman Name Role Phone Carlos Valdez MD Primary Care Provider [phone] Reason for Visit * Reason Onset Date Comments Medication Refill 05/09/2019 Encounter Details Date Type Department Care Team (Late st Contact Info) Description 05/09/2019 Refill Cardiology at [address] [phone] Xin Grewal, INTEGRATED CIRCUIT IC LAYOUT DESIGNER [facility] [place] [address] Medication Refill Social History Tobacco Use Types Packs/Day Years [...] EST Hospital Encounter Non-Invasive [place] [phone] Arrived documented as of this encounter Visit Diagnoses Not on filedocumented in this encounter Care Teams Printed Circuit Board Pcb Draftsman Relationship Specialty Start Date End Date Carlos Valdez MD [address] [place] [address] [address] [place] [address] PCP - General 03/25/11 08/07/22 documented as of this encounter
--- OUTSIDE RECORDS SUMMARY | 2023-12-11 18:44 | XMS_ITS | Encounter Summary ---
Author Organization [facility] [place] [address] Care Team Providers Care Metal Alloy Scientist Name Role Phone Carlos Valdez MD Primary Care Provider [phone] Encounter Details Date Type Department Care Team (Latest Contact Info) Description 08/04/2020 10:07 AM EDT - 08/04/2020 11:59 PM EDT Hospital Encounter Non-Invasive [place] [address] [facility] [place] [address] Cardiomyopathy, primary Discharge Disposition: Home Social History [...] Sig Dispensed Refills Start Date End Date amLODIPine (Norvasc) 5 mg Tablet Take 1 tablet by mouth daily. 90 tablet 3 04/30/2020 multivitamin (THERAGRAN) Tablet Take 1 tablet by mouth daily. bdzpffg-kmfofrntanvtw-n affeine (EXCEDRIN MIGRAINE) 250-250-65 mg per tablet [...] WITH MEALS 180 tablet 3 05/06/2020 06/08/2022 losartan (COZAAR) 100 mg Tablet Take 1 tablet by mouth daily. 90 tablet 3 10/29/2019 10/23/2020 documented as of this encounter Plan of Treatment Upcoming Encounters Date Type Department Care Team (Late st Contact Info) Description 02/26/2024 10:00 AM [facility] Hospital Encounter Non-Invasive [place] [address] Arrived documented as of this encounter Procedures Procedure Name Priority Date/Time Associated Diagnosis Comments ICD INTERROGATION 3 MONTH Routine 08/04/2020 10:08 AM EDT Cardiomyopathy, primary documented in this encounter Results * ICD INTERROGATION 3 MONTH (08/04/2020 10:08 AM EDT) Anatomical Region Laterality Modality Other Narrative 08/20/2020 1:25 PM EDT [facility] biventricular ICD remote reviewed. Normal device function. Chronically elevated RA capture threshold Vincent Martinez MD [facility] Cardiac Electrophysiology 08/20/2020 12:01 PM Oniel Mcarthur MD IMPLANTABLE CARDIAC DEVICE documented in this encounter Visit Diagnoses Diagnosis Cardiomyopathy, primary Other primary cardiomyopathies documented in this encounter Care Teams Metal Alloy Scientist Relationship Specialty Start Date End Date Carlos Valdez MD [address] [place] [address] PCP - General 03/25/11 08/07/22 documented as of this encounter
--- OUTSIDE RECORDS SUMMARY | 2023-12-11 18:44 | XMS_ITS | Encounter Summary ---
[place] [address] Care Team Providers Care Rouge Sifter Name Role Phone Carlos Valdez MD Primary Care Provider [phone] Encounter Details Date Type Department Care Team (Late st Contact Info) Description 08/04/2020 Orders Only Cardiology at [address] [phone] Social History Tobacco Use Types Packs/Day Years [...] AM EST Hospital Encounter Non-In[place] [phone] Arrived documented as of this encounter Procedures Procedure Name Priority Date/Time Associated Diagnosis Comments CARDIAC DEVICE CHECK - REMOTE SCHEDULED Routine 08/04/2020 2:00 AM EDT documented in this encounter Results * Cardiac device check - Remote Scheduled (08/04/2020 2:00 AM EDT) [facility] Implantable Pulse Generator Type Cardiac Resynchronization Therapy - Defibrillator IDCO Implantable Pulse Generator Model 3365-40 IDCO Implantable Pulse Generator Serial Number [id number] IDCO Implantable Pulse Generator Administrative Executive [facility] IDCO Implantable Pulse Generator Implant Date IDCO Implantable Pulse Generator Implanter N/A IDCO Implantable Pulse Generator Implanter Contact Information N/A IDCO Implantable Pulse Generator Implanting Facility N/A IDCO Implantable Lead Special Function Sense and Pace in RA IDCO Implantable Lead Model 5568 IDCO Implantable Lead Serial Number [id number] IDCO Implantable Lead Administrative Executive Medtronic IDCO Implantable Lead Implant Date IDCO Implantable Lead Polarity Type Bipolar Lead IDCO Implantable Lead Location Right Atrium IDCO Implantable Lead Connection Status Connected IDCO Implantable Lead Special Function Pace in LV IDCO Implantable Lead Model 1458Q Quartet(R) IDCO Implantable Lead Serial Number [id number] IDCO Implantable Lead Administrative Executive [facility] IDCO Implantable Lead Implant Date IDCO Implantable Lead Polarity Type Quadripolar Lead IDCO Implantable Lead Location Left Ventricle IDCO Implantable Lead Connection Status Connected IDCO Implantable Lead Special Function Defibrillation in RV IDCO Implantable Lead Model 7122Q Durata(R) IDCO Implantable Lead Serial Number [id number] IDCO Implantable Lead Administrative Executive [facility] IDCO Implantable Lead Implant Date IDCO Implantable Lead Polarity Type Bipolar Lead IDCO Implantable Lead Location Right Ventricle IDCO Implantable Lead Connection Status Connected IDCO Date Time Interrogation Session [id number] IDCO Type Interrogation Session Remote Scheduled IDCO Re-programmed During Session NO IDCO Date Time Previous Interrogation Session [id number] IDCO Clinician Name N/A IDCO Clinician Contact Information N/A IDCO Clinic Name N/A IDCO Battery Date Time of Measurements [id number] IDCO Battery Status Middle of Service IDCO Battery Voltage 2.89 V IDCO Battery Remaining Longevity 16 mo IDCO Battery Remaining Percentage 32.0 % IDCO Battery SALES PRODUCT SPECIALIST Trigger When current voltage < 2.59 volts IDCO Capacitor Charge Type Reformation IDCO Capacitor Last Charge Date Time [id number] IDCO Capacitor Charge Time 9.9 s IDCO Capacitor Charge Energy 40 J IDCO Lead Channel Measurements Date and Time Start [id number] IDCO Lead Channel Measurements Date and Time End [id number] IDCO Lead Channel Sensing Intrinsic Amplitude 1.8 mV IDCO Lead Channel Sensing Polarity Bipolar IDCO Lead Channel Pacing Threshold Amplitude 0.75 V IDCO Lead Channel Pacing Threshold Pulse Width 1.0 ms IDCO Lead Channel Pacing Threshold Polarity Bipolar IDCO Lead Channel Pacing Threshold Measurement Method Senior Applications Analyst Manual IDCO Lead Channel Impedance Value 310 Ohm IDCO Lead Channel Impedance Polarity Bipolar IDCO Lead Channel Status Null IDCO Lead Channel Measurements Date and Time Start [id number] IDCO Lead Channel Measurements Date and Time End [id number] IDCO Lead Channel Sensing Intrinsic Amplitude 11.0 mV IDCO Lead Channel Sensing Polarity Bipolar [...] Lead Channel Measurements Date and Time Start [id number] IDCO Lead Channel Measurements Date and Time End [id number] IDCO Lead Channel Pacing Threshold Amplitude 1.0 V IDCO Lead Channel Pacing Threshold Pulse Width 0.8 ms IDCO Lead Channel Pacing Threshold Polarity Bipolar IDCO Lead Channel Pacing Threshold Measurement Method Senior Applications Analyst Manual IDCO Lead Channel Impedance Value 750 Ohm IDCO Lead Channel Impedance Polarity Bipolar IDCO Lead Channel Status Null IDCO Lead High Voltage Channel Measurement Type Shock IDCO Lead High Voltage Channel Date Time IDCO Lead High Voltage Channel Impedance 68 Ohm IDCO Lead High Voltage Channel Status Null IDCO Lead High Voltage Channel Measurement Type Low Voltage Pulse IDCO Lead High Voltage Channel Date Time IDCO Lead High Voltage Channel Impedance 68 Ohm IDCO Lead High Voltage Channel Status Null IDCO BUS TRANSPORTATION MANAGER LV-RV Delay 30 ms IDCO Ventricular chambers paced during BUS TRANSPORTATION MANAGER pacing. BiV IDCO Magnet Response Normal IDCO [...] Setting Pacing Capture Mode Fixed Pacing IDCO [facility]_IDC_SET_LEAD HVCHNL_SHOCK_VEC TOR_ANODE_LOCATI ON_1 Right Ventricle IDCO [facility]_IDC_SET_LEAD HVCHNL_SHOCK_VEC TOR_ANODE_ELECTR ODE_1 Coil IDCO [facility]_IDC_SET_LEAD HVCHNL_SHOCK_VEC TOR_CATHODE_LOCA TION_1 Other IDCO [facility]_IDC_SET_LEAD HVCHNL_SHOCK_VEC TOR_CATHODE_ELEC TRODE_1 Can IDCO Grabiel Setting [...] /min IDCO Statistic Ventricular Heart Rate Max 220 {beats} /min IDCO Statistic Ventricular Heart Rate Mean 72 {beats} /min IDCO Statistic Ventricular Heart Rate Min 50 {beats} /min IDCO Grabiel Statistic Date Time End IDCO Grabiel Statistic Date Time Start IDCO Grabiel Statistic RA Percent Paced 80.0 % IDCO Grabiel Statistic AP HYPO SPLASHER Percent 80.0 % IDCO Grabiel Statistic HYPO SPLASHER Percent 19.0 % IDCO Grabiel Statistic AP VS Percent 1.0 % IDCO Grabiel Statistic VS Percent 1.0 % IDCO Atrial Tachy Statistic Date Time End IDCO Atrial Tachy Statistic Date Time Start IDCO Atrial Tachy Statistic Percent Time In Mode Switch 0 % IDCO Atrial Tachy Statistic Number Of Mode Switches 0 {switch es} IDCO Atrial Tachy Statistic Number Of Mode Switches Per Day 0 {switch es} IDCO Atrial Tachy Statistic AT/AF [place] Percent 0 % IDCO BUS TRANSPORTATION MANAGER Statistic Date Time End IDCO BUS TRANSPORTATION MANAGER Statistic Date Time Start IDCO BUS TRANSPORTATION MANAGER Statistic BUS TRANSPORTATION MANAGER Percent Paced 99.0 % IDCO Therapy Statistic Recent Date Time End IDCO Therapy Statistic Recent Date Time Start IDCO Therapy Statistic Recent Shocks Delivered 0 {shocks } IDCO Therapy Statistic Recent Shocks Aborted 0 {shocks } IDCO Therapy Statistic Recent ATP Delivered 0 {seq} IDCO Episode Statistic Recent Date Time End [id number] IDCO Episode Statistic Recent Date Time Start [id number] IDCO Anatomical Region Laterality Modality Other 08/04/2020 2:00 AM EDT Physician Cardiology MD IMPLANTABLE CARD IAC DEVICE documented in this encounter Visit Diagnoses Not on filedocumented in this encounter Care Teams Rouge Sifter Relationship Specialty Start Date End Date Carlos Valdez MD [address] [place] [address] PCP - General 03/25/11 08/07/22 documented as of this encounter
--- OUTSIDE RECORDS SUMMARY | 2023-12-11 18:44 | XMS_ITS | Encounter Summary ---
Author Organization [facility] [place] [address] Care Team Providers Care Cio Name Role Phone Carlos Valdez MD Primary Care Provider [phone] Reason for Visit * Reason Comments Medication Refill Losartan Encounter Details Date Type Department Care Team (Late st Contact Info) Description 10/23/2020 Refill Cardiology at [address] [phone] Xin Grewal, RECRUITING SCHEDULER [facility] [place] [address] Medication Refill (Losartan) Social History Tobacco Use Types Packs/Day Years [...] AM EST Hospital Encounter Non-In[place] [phone] Arrived documented as of this encounter Visit Diagnoses Diagnosis Chronic systolic heart failure documented in this encounter Care Teams Cio Relationship Specialty Start Date End Date Carlos Valdez MD [address] [place] [address] PCP - General 03/25/11 08/07/22 documented as of this encounter
--- OUTSIDE RECORDS SUMMARY | 2023-12-11 18:44 | XMS_ITS | Encounter Summary ---
[place] [address] Care Team Providers Care Tricot Knitter Name Role Phone Carlos Valdez MD Primary Care Provider [phone] Encounter Details Date Type Department Care Team (Late st Contact Info) Description 01/19/2019 Orders Only Cardiology at [address] [phone] Social History Tobacco Use Types Packs/Day Years [...] st Contact Info) Description 02/26/2024 10:00 AM [facility] Hospital Encounter [place] [address] Arrived documented as of this encounter Procedures Procedure Name Priority Date/Time Associated Diagnosis Comments CARDIAC DEVICE CHECK - REMOTE SCHEDULED Routine 01/19/2019 10:51 PM EDT documented in this encounter Results * Cardiac device check - Remote Scheduled (01/19/2019 10:51 PM EDT) [facility] Implantable Pulse Generator Type Cardiac Resynchronization Therapy - Defibrillator IDCO Implantable Pulse Generator Model 3365-40 IDCO Implantable Pulse Generator Serial Number [id number] IDCO Implantable Pulse Generator Automotive Parts Advisor [facility] IDCO Implantable Pulse Generator Implant Date IDCO Implantable Pulse Generator Implanter N/A IDCO Implantable Pulse Generator Implanter Contact Information N/A IDCO Implantable Pulse Generator Implanting Facility N/A IDCO Implantable Lead Special Function Sense and Pace in RA IDCO Implantable Lead Model 5568 IDCO Implantable Lead Serial Number [id number] IDCO Implantable Lead Automotive Parts Advisor Medtronic IDCO Implantable Lead Implant Date IDCO Implantable Lead Polarity Type Bipolar Lead IDCO Implantable Lead Location Right Atrium IDCO Implantable Lead Connection Status Connected IDCO Implantable Lead Special Function Pace in LV IDCO Implantable Lead Model 1458Q Quartet(R) IDCO Implantable Lead Serial Number [id number] IDCO Implantable Lead Automotive Parts Advisor [facility] IDCO Implantable Lead Implant Date IDCO Implantable Lead Polarity Type Quadripolar Lead IDCO Implantable Lead Location Left Ventricle IDCO Implantable Lead Connection Status Connected IDCO Implantable Lead Special Function Defibrillation in RV IDCO Implantable Lead Model 7122Q Durata(R) IDCO Implantable Lead Serial Number [id number] IDCO Implantable Lead Automotive Parts Advisor [facility] IDCO Implantable Lead Implant Date IDCO Implantable Lead Polarity Type Bipolar Lead IDCO Implantable Lead Location Right Ventricle IDCO Implantable Lead Connection Status Connected IDCO Date Time Interrogation Session [id number] IDCO Type Interrogation Session Remote Scheduled IDCO Re-programmed During Session NO IDCO Date Time Previous Interrogation Session [id number] IDCO Clinician Name N/A IDCO Clinician Contact Information N/A IDCO Clinic Name N/A IDCO Battery Date Time of Measurements [id number] IDCO Battery Status Middle of Service IDCO Battery Voltage 2.93 V IDCO Battery Remaining Longevity 30 mo IDCO Battery Remaining Percentage 56.0 % IDCO Battery MANAGEMENT PROFESSIONALS Trigger When current voltage < 2.59 volts IDCO Capacitor Charge Type Reformation IDCO Capacitor Last Charge Date Time [id number] IDCO Capacitor Charge Time 9.6 s IDCO Capacitor Charge Energy 40 J IDCO Lead Channel Measurements Date and Time Start [id number] IDCO Lead Channel Measurements Date and Time End [id number] IDCO Lead Channel Sensing Intrinsic Amplitude 2.0 mV IDCO Lead Channel Sensing Polarity Bipolar IDCO Lead Channel Pacing Threshold Amplitude 1.75 V IDCO Lead Channel Pacing Threshold Pulse Width 1.0 ms IDCO Lead Channel Pacing Threshold Polarity Bipolar IDCO Lead Channel Pacing Threshold Measurement Method Military Technology Manager Manual IDCO Lead Channel Impedance Value 390 Ohm IDCO Lead Channel Impedance Polarity Bipolar IDCO Lead Channel Status Null IDCO Lead Channel Measurements Date and Time Start [id number] IDCO Lead Channel Measurements Date and Time End [id number] IDCO Lead Channel Sensing Intrinsic Amplitude 9.9 mV IDCO Lead Channel Sensing Polarity Bipolar IDCO Lead Channel Pacing Threshold Amplitude 0.875 V IDCO Lead Channel Pacing Threshold Pulse Width 0.5 ms IDCO Lead Channel Pacing Threshold Polarity Bipolar IDCO Lead Channel Pacing Threshold Measurement Method Device Automatic IDCO Lead Channel Impedance Value 390 Ohm IDCO Lead Channel Impedance Polarity Bipolar IDCO Lead Channel Status Null IDCO Lead Channel Measurements Date and Time Start [id number] IDCO Lead Channel Measurements Date and Time End [id number] IDCO Lead Channel Pacing Threshold Amplitude 1.25 V IDCO Lead Channel Pacing Threshold Pulse Width 0.5 ms IDCO Lead Channel Pacing Threshold Polarity Bipolar IDCO Lead Channel Pacing Threshold Measurement Method Device Automatic IDCO Lead Channel Impedance Value 830 Ohm IDCO Lead Channel Impedance Polarity Bipolar [...] Lead High Voltage Channel Status Null IDCO RN HEMATOLOGY LV-RV Delay 30 ms IDCO Ventricular chambers paced during RN HEMATOLOGY pacing. BiV IDCO Magnet Response Normal IDCO [...] 0.5 ms IDCO Lead Channel Setting Pacing Polarity [...] Channel Setting Pacing Capture Mode Adaptive IDCO [facility]_SET_LEAD HVCHNL_SHOCK_VEC TOR_ANODE_LOCATI ON_1 Right Ventricle IDCO [facility]IDC_SET_LEAD HVCHNL_SHOCK_VEC TOR_ANODE_ELECTR ODE_1 Coil IDCO [facility]_IDC_SET_LEAD HVCHNL_SHOCK_VEC TOR_CATHODE_LOCA TION_1 Other IDCO [facility]_IDC_SET_LEAD HVCHNL_SHOCK_VEC TOR_CATHODE_ELEC TRODE_1 Can IDCO Grabiel Setting [...] /min IDCO Statistic Atrial Heart Rate Max 290 {beats} /min IDCO Statistic Atrial Heart Rate Min 50 {beats} /min IDCO Statistic Ventricular Heart Rate Max 230 {beats} /min IDCO Statistic Ventricular Heart Rate Mean 72 {beats} /min IDCO Statistic Ventricular Heart Rate Min 50 {beats} /min IDCO Grabiel Statistic Date Time End IDCO Grabiel Statistic Date Time Start IDCO Grabiel Statistic RA Percent Paced 82.0 % IDCO Grabiel Statistic AP CONTRACT DESIGN AGENT Percent 83.0 % IDCO Grabiel Statistic CONTRACT DESIGN AGENT Percent 17.0 % IDCO Grabiel Statistic AP [...] {switch es} IDCO Atrial Tachy Statistic AT/AF [place] Percent 0 % IDCO RN HEMATOLOGY Statistic Date Time End IDCO RN HEMATOLOGY Statistic Date Time Start IDCO RN HEMATOLOGY Statistic RN HEMATOLOGY Percent Paced 99.0 % IDCO Therapy Statistic Recent Date Time End IDCO Therapy Statistic Recent Date Time Start IDCO Therapy Statistic Recent Shocks Delivered 0 {shocks } IDCO Therapy Statistic Recent Shocks Aborted 0 {shocks } IDCO Therapy Statistic Recent ATP Delivered 0 {seq} IDCO Episode Statistic Recent Date Time End [id number] IDCO Episode Statistic Recent Date Time Start [id number] IDCO Anatomical Region Laterality Modality Other 01/19/2019 10:5 1 PM EDT Physician Cardiology MD IMPLANTABLE CARD IAC DEVICE documented in this encounter Visit Diagnoses Not on filedocumented in this encounter Care Teams Tricot Knitter Relationship Specialty Start Date End Date Carlos Valdez MD [address] [place] [address] PCP - General 03/25/11 08/07/22 documented as of this encounter
--- OUTSIDE RECORDS SUMMARY | 2023-12-11 18:44 | XMS_ITS | Encounter Summary ---
Author Organization [facility] [place] [address] Care Team Providers Care Drill Foreman Name Role Phone Carlos Valdez MD Primary Care Provider [phone] Reason for Visit * Reason Comments Medication Refill Encounter Details Date Type Department Care Team (Late st Contact Info) Description 01/21/2021 Refill Cardiology at [address] [phone] Xin Grewal, LABORATORY DIRECTOR [facility] [place] [address] [place] [address] Medication Refill Social History Tobacco Use Types [...] AM EST Hospital Encounter Non-[place] [phone] Arrived documented as of this encounter Visit Diagnoses Diagnosis Chronic systolic heart failure documented in this encounter Care Teams Drill Foreman Relationship Specialty Start Date End Date Carlos Valdez MD [address] [place] [address] PCP - General 03/25/11 08/07/22 documented as of this encounter
--- OUTSIDE RECORDS SUMMARY | 2023-12-11 18:44 | XMS_ITS | Encounter Summary ---
Author Organization [facility] [place] [address] Care Team Providers Care Transmission Specialist Name Role Phone Carlos Valdez MD Primary Care Provider [phone] Reason for Visit * Reason Onset Date Comments Medication Refill 01/26/2021 Losartan Encounter Details Date Type Department Care Team (Late st Contact Info) Description 01/26/2021 Refill Cardiology at [address] [phone] Xin Grewal, [facility] [place] [address] Medication Refill (Losartan) Social History Tobacco Use [...] Telephone Encounter - Brunilda Richardson RN - 01/28/2021 10:39 AM EST Pt calling to get refill of his Losartan. He has been seeing Dr Child at [facility], who has returned to and is no longer at [facility]. He will be seeing Dr Jauregui at [facility] but did not call her office to refill his med. Call placed to Dr Jauregui's office. Here adm staff states that Dr Jauregui will refill his meds, he has tocall them. Pt notified and given the number to Dr Jauregui's office. documented in this encounter Plan of Treatment Upcoming Encounters Date Type Department Care Team (Late st Contact Info) Description 02/26/2024 10:00 AM EST Hospital Encounter Non-Invasive [place] [address] Arrived documented as of this encounter Visit Diagnoses Diagnosis Chronic systolic heart failure documented in this encounter Care Teams Transmission Specialist Relationship Specialty Start Date End Date Carlos Valdez MD [address] [place] [address] PCP - General 03/25/11 08/07/22 documented as of this encounter
--- OUTSIDE RECORDS SUMMARY | 2023-12-11 18:44 | XMS_ITS | Encounter Summary ---
[place] [address] Care Team Providers Care Holter Technician Name Role Phone Carlos Valdez MD Primary Care Provider [phone] Encounter Details Date Type Department Care Team (Latest Contact Info) Description 05/06/2019 1:00 PM EST Laboratory Appointment Lab [address] [place] [phone] Chronic systolic heart failure Social History Tobacco [...] AM EST Hospital Encounter Non-[place]vasive [place] [phone] Arrived documented as of this encounter Procedures Procedure Name Priority Date/Time Associated Diagnosis Comments HC PROBNP STAT 05/06/2019 1:05 PM EST Chronic systolic heart failure BASIC METABOLIC PANEL STAT 05/06/2019 1:05 PM EST Chronic systolic heart failure documented in this encounter Results * Basic Metabolic Panel (non-fasting) (05/06/2019 1:05 PM EST) Glucose 95 65 - 199 mg/dL [facility] Comment:Diabetes: >=200 mg/d L plus symptoms Blood Urea Nitrogen 15 10 - 20 mg/dL [facility] Creatinine 0.91 0.80 - 1.50 mg/dL [facility] Sodium 141 135 - 145 mmol/L [facility] Potassium 4.4 3.5 - 5.0 mmol/L [facility] Comment: Please note: ??Patients with WBC >100,000 may have falsely elevated Potassium levels. ??For accurate Potassium quantification in these patients send serum separator tube (gold top) for subsequent determinations. ??Contact the Clinical Chemistry Laboratory if there are any questions. Chloride 102 98 - 107 mmol/L [facility] Carbon Dioxide 26 22 - 31 mmol/L [facility] Anion Gap 13 5 - 15 mmol/L [facility] Calcium 9.9 8.5 - 10.5 mg/dL [facility] Est Glomerular Filtration Rate 83 >=60 mL/min/1. 73 m?? [facility] Comment: The eGFR was calculated using the CKD-EPI equation. As with all creatinine based estimates of kidney function, eGFR values calculated with the CKD-EPI equation are not accurate in patients with acute kidney failure, extremes of body mass or the acutely ill. [email or web address] eGFR 97 >=60 mL/min/1. 73 m?? [facility] Comment: The eGFR was calculated using the CKD-EPI equation. As with all creatinine based estimates of kidney function, eGFR values calculated with the CKD-EPI equation are not accurate in patients with acute kidney failure, extremes of body mass or the acutely ill. [email or web address] Blood specimen (specimen) 05/06/2019 1:05 PM EST 05/06/2019 1:09 PM EST Narrative Resulting Agency Comment Spec In Lab Xin Grewal APRN CHEMISTRY ORDERABLES Performing Organization Address City/[facility]/ZIP Co de Phone Number [facility] [address] * (ABNORMAL) pro-Brain Natriuretic Peptide (05/06/2019 1:05 PM EST) NT-proBNP 202(H) <=125 pg/mL [facility] Blood specimen (specimen) 05/06/2019 1:05 PM EST 05/06/2019 1:09 PM EST Narrative Resulting Agency Comment Spec In Lab Xin Grewal APRN CHEMISTRY ORDERABLES Performing Organization Address [facility]/ZIP Co de Phone Number [facility] [place] [address] documented in this encounter Visit Diagnoses Diagnosis Chronic systolic heart failure documented in this encounter Care Teams Holter Technician Relationship Specialty Start Date End Date Carlos Valdez MD [address] [place] [address] [address] PCP - General 03/25/11 08/07/22 documented as of this encounter
--- OUTSIDE RECORDS SUMMARY | 2023-12-11 18:44 | XMS_ITS | Encounter Summary ---
[place] [address] Care Team Providers Care Quill Worker Name Role Phone Carlos Valdez MD Primary Care Provider [phone] Encounter Details Date Type Department Care Team (Late st Contact Info) Description 08/06/2019 Orders Only Cardiology at [address] [phone] Social History Tobacco Use Types Packs/Day Years [...] st Contact Info) Description 02/26/2024 10:00 AM [facility] Hospital Encounter Non-Invasive [place] [phone] Arrived documented as of this encounter Procedures Procedure Name Priority Date/Time Associated Diagnosis Comments CARDIAC DEVICE CHECK - REMOTE SCHEDULED Routine 08/06/2019 2:00 AM EDT documented in this encounter Results * Cardiac device check - Remote Scheduled (08/06/2019 2:00 AM EDT) [facility] Implantable Pulse Generator Type Cardiac Resynchronization Therapy - Defibrillator [employer] Implantable Pulse Generator Model 3365-40 IDCO Implantable Pulse Generator Serial Number [id number] IDCO Implantable Pulse Generator Application Packaging Specialist [facility] IDCO Implantable Pulse Generator Implant Date IDCO Implantable Pulse Generator Implanter N/A IDCO Implantable Pulse Generator Implanter Contact Information N/A IDCO Implantable Pulse Generator Implanting Facility N/A IDCO Implantable Lead Special Function Sense and Pace in RA IDCO Implantable Lead Model 5568 IDCO Implantable Lead Serial Number [id number] IDCO Implantable Lead Application Packaging Specialist Medtronic IDCO Implantable Lead Implant Date IDCO Implantable Lead Polarity Type Bipolar Lead IDCO Implantable Lead Location Right Atrium IDCO Implantable Lead Connection Status Connected IDCO Implantable Lead Special Function Pace in LV IDCO Implantable Lead Model 1458Q Quartet(R) IDCO Implantable Lead Serial Number [id number] IDCO Implantable Lead Application Packaging Specialist [facility] IDCO Implantable Lead Implant Date IDCO Implantable Lead Polarity Type Quadripolar Lead IDCO Implantable Lead Location Left Ventricle IDCO Implantable Lead Connection Status Connected IDCO Implantable Lead Special Function Defibrillation in RV IDCO Implantable Lead Model 7122Q Durata(R) IDCO Implantable Lead Serial Number [id number] IDCO Implantable Lead Application Packaging Specialist [facility] IDCO Implantable Lead Implant Date IDCO Implantable Lead Polarity Type Bipolar Lead IDCO Implantable Lead Location Right Ventricle IDCO Implantable Lead Connection Status Connected IDCO Date Time Interrogation Session [id number] IDCO Type Interrogation Session Remote Scheduled IDCO Re-programmed During Session NO IDCO Date Time Previous Interrogation Session [id number] IDCO Clinician Name N/A IDCO Clinician Contact Information N/A IDCO Clinic Name N/A IDCO Battery Date Time of Measurements [id number] IDCO Battery Status Middle of Service IDCO Battery Voltage 2.92 V IDCO Battery Remaining Longevity 24 mo IDCO Battery Remaining Percentage 47.0 % IDCO Battery GRIP Trigger When current voltage < 2.59 volts IDCO Capacitor Charge Type Reformation IDCO Capacitor Last Charge Date Time [id number] IDCO Capacitor Charge Time 9.8 s IDCO Capacitor Charge Energy 40 J IDCO Lead Channel Measurements Date and Time Start [id number] IDCO Lead Channel Measurements Date and Time End [id number] IDCO Lead Channel Sensing Intrinsic Amplitude 2.5 mV IDCO Lead Channel Sensing Polarity Bipolar IDCO Lead Channel Pacing Threshold Amplitude 1.5 V IDCO Lead Channel Pacing Threshold Pulse Width 1.0 ms IDCO Lead Channel Pacing Threshold Polarity Bipolar IDCO Lead Channel Pacing Threshold Measurement Method Carpenters Helper Manual IDCO Lead Channel Impedance Value 360 Ohm IDCO Lead Channel Impedance Polarity Bipolar IDCO Lead Channel Status Null IDCO Lead Channel Measurements Date and Time Start [id number] IDCO Lead Channel Measurements Date and Time End [id number] IDCO Lead Channel Sensing Intrinsic Amplitude 12.0 [...] Lead Channel Measurements Date and Time Start [id number] IDCO Lead Channel Measurements Date and Time End [id number] IDCO Lead Channel Pacing Threshold Amplitude 1.0 V IDCO Lead Channel Pacing Threshold Pulse Width 0.8 ms IDCO Lead Channel Pacing Threshold Polarity Bipolar IDCO Lead Channel Pacing Threshold Measurement Method Carpenters Helper Manual IDCO Lead Channel Impedance Value 850 Ohm IDCO Lead Channel Impedance Polarity Bipolar IDCO Lead Channel Status Null IDCO Lead High Voltage Channel Measurement Type Shock IDCO Lead High Voltage Channel Date Time IDCO Lead High Voltage Channel Impedance 66 Ohm IDCO Lead High Voltage Channel Status Null IDCO Lead High Voltage Channel Measurement Type Low Voltage Pulse IDCO Lead High Voltage Channel Date Time IDCO Lead High Voltage Channel Impedance 66 Ohm IDCO Lead High Voltage Channel Status Null IDCO BREAKER UP MACHINE OPERATOR LV-RV Delay 30 ms IDCO Ventricular chambers paced during BREAKER UP MACHINE OPERATOR pacing. BiV IDCO Magnet Response [...] Setting Pacing Capture Mode Fixed Pacing IDCO [facility]_IDC_SET_LEAD HVCHNL_SHOCK_VEC TOR_ANODE_LOCATI ON_1 Right Ventricle IDCO [facility]_IDC_SET_LEAD HVCHNL_SHOCK_VEC TOR_ANODE_ELECTR ODE_1 Coil IDCO [facility]_IDC_SET_LEAD HVCHNL_SHOCK_VEC TOR_CATHODE_LOCA TION_1 Other IDCO [facility]_IDC_SET_LEAD HVCHNL_SHOCK_VEC TOR_CATHODE_ELEC TRODE_1 Can IDCO Grabiel Setting [...] Paced 80.0 % IDCO Grabiel Statistic AP WASTEWATER TREATMENT ENGINEER Percent 80.0 % IDCO Grabiel Statistic WASTEWATER TREATMENT ENGINEER Percent 19.0 % IDCO Grabiel Statistic AP VS Percent 1.0 % IDCO Grabiel Statistic VS Percent 1.0 % IDCO Atrial Tachy Statistic Date Time End IDCO Atrial Tachy Statistic Date Time Start IDCO Atrial Tachy Statistic Maximum Mode Switch Duration 6,526 s IDCO Atrial Tachy Statistic Percent Time In Mode Switch 1 % IDCO Atrial Tachy Statistic Number Of Mode Switches 5 {switch es} IDCO Atrial Tachy Statistic Number Of Mode Switches Per Day 0 {switch es} IDCO Atrial Tachy Statistic AT/AF [place] Percent 1 % IDCO BREAKER UP MACHINE OPERATOR Statistic Date Time End IDCO BREAKER UP MACHINE OPERATOR Statistic Date Time Start IDCO BREAKER UP MACHINE OPERATOR Statistic BREAKER UP MACHINE OPERATOR Percent Paced 99.0 % IDCO Therapy Statistic Recent Date Time End IDCO Therapy Statistic Recent Date Time Start IDCO Therapy Statistic Recent Shocks Delivered 0 {shocks } IDCO Therapy Statistic Recent Shocks Aborted 0 {shocks } IDCO Therapy Statistic Recent ATP Delivered 0 {seq} IDCO Episode Statistic Recent Date Time End IDCO Episode Statistic Recent Date Time Start [id number] IDCO Episode Identifier [id number] IDCO Episode Date Time [id number] IDCO Episode Detection And Therapy Details AMS IDCO Episode Duration 48 s IDCO Episode Vendor Type Category AMS IDCO Episode Type Category Other IDCO Episode Identifier [id number] IDCO Episode Date Time [id number] IDCO Episode Detection And Therapy Details AMS IDCO Episode Duration 36 s IDCO Episode Vendor Type Category AMS IDCO Episode Type Category Other IDCO Episode Identifier [id number] IDCO Episode Date Time [id number] IDCO Episode Detection And Therapy Details AMS IDCO Episode Duration 36 s IDCO Episode Vendor Type Category AMS IDCO Episode Type Category Other IDCO Episode Identifier [id number] IDCO Episode Date Time [id number] IDCO Episode Detection And Therapy Details AMS IDCO Episode Duration 34 s IDCO Episode Vendor Type Category AMS IDCO Episode Type Category Other IDCO Episode Identifier [id number] IDCO Episode Date Time [id number] IDCO Episode Detection And Therapy Details AMS IDCO Episode Duration 6,526 s IDCO Episode Vendor Type Category AMS IDCO Episode Type Category Other IDCO Anatomical Region Laterality Modality Other 08/06/2019 2:00 AM EDT Physician Cardiology IMPLANTABLE CARD IAC DEVICE documented in this encounter Visit Diagnoses Not on filedocumented in this encounter Care Teams Quill Worker Relationship Specialty Start Date End Date Carlos Valdez MD [address] [place] [address] PCP - General 03/25/11 08/07/22 documented as of this encounter
--- OUTSIDE RECORDS SUMMARY | 2023-12-11 18:44 | XMS_ITS | Encounter Summary ---
[place] [address] Care Team Providers Care Fueler Name Role Phone Carlos Valdez MD Primary Care Provider Reason for Visit * Reason Onset Date Comments Prior Authorization 03/17/2020 TTE at [facility] Encounter Details Date Type Department Care Team (Late st Contact Info) Description 03/17/2020 Telephone Cardiology at [address] [phone] Brunilda Richardson customer solutions coordinator (TTE at [facility]) Social History Tobacco Use Types Packs/Day Years [...] Telephone Encounter - Brunilda Richardson RN - 03/18/2020 9:05 AM EST Call placed to Trevor at [facility] Specialty services to initiate PA PA * Telephone Encounter - Brunilda Richardson RN - 03/17/2020 5:02 PM EST Call placed to [facility] [place] Provider relations at [phone]. 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 Will call tomorrow. Testing Facility: [facility] [address] [place] [address] Last Echo done 10/05/18 Request has been denied for coverage. Next step is for the provider to call [facility] services to do a peer to peer with the reviewing provider at [phone]. * Telephone Encounter - Brunilda Richardson RN - 03/17/2020 5:02 PM EST ----- Message from Jeanine Land sent at 03/16/2020 2:36 PM EST ----- Regarding: FW: Echo Order Change request Trevor Worley, [facility] has asked us to initiate the PA for this patient's secondary insurance, BCBS. Can you please do this when you have a chance? Thank you, Jeanine ----- Message ----- From: Xin Grewal APRN Sent: 03/11/2020 1:49 PM EST To: Jeanine Land Subject: RE: Echo Order Change request Done sd ----- Message ----- From: Jeanine Land Sent: 03/11/2020 11:59 AM EST To: Xin Grewal APRN Subject: Echo Order Change request Trevor Lindsay, Can you please change this echo order to external? This patient wants to get the echo done at [facility] in March.Thank you,Jeanine documented in this encounter Plan of Treatment Upcoming Encounters Date Type Department Care Team (Late st Contact Info) Description 02/26/2024 10:00 AM EST Hospital Encounter Non-Invasive [place] [address] Arrived documented as of this encounter Visit Diagnoses Not on filedocumented in this encounter Care Teams Fueler Relationship Specialty Start Date End Date Carlos Valdez MD [address] [place] [address] PCP - General 03/25/11 08/07/22 documented as of this encounter
--- OUTSIDE RECORDS SUMMARY | 2023-12-11 18:44 | XMS_ITS | Encounter Summary ---
[place] [address] Care Team Providers Care Automobile Contract Clerk Name Role Phone Carlos Valdez MD Primary Care Provider [phone] Encounter Details Date Type Department Care Team (Late st Contact Info) Description 03/16/2021 Orders Only Cardiology at [address] [phone] Social History Tobacco Use Types Packs/Day Years [...] AM EST Hospital Encounter Non-[place] [phone] Arrived documented as of this encounter Procedures Procedure Name Priority Date/Time Associated Diagnosis Comments CARDIAC DEVICE CHECK - REMOTE SCHEDULED Routine 03/16/2021 2:50 AM EST documented in this encounter Results * Cardiac device check - Remote Scheduled (03/16/2021 2:50 AM EST) Implantable Pulse Generator Type Cardiac Resynchronization Therapy - Defibrillator IDCO Implantable Pulse Generator Model 3365-40 IDCO Implantable Pulse Generator Serial Number [id number] IDCO Implantable Pulse Generator Rn Clinical Research [facility] IDCO Implantable Pulse Generator Implant Date IDCO Implantable Pulse Generator Implanter N/A IDCO Implantable Pulse Generator Implanter Contact Information N/A IDCO Implantable Pulse Generator Implanting Facility N/A IDCO Implantable Lead Special Function Sense and Pace in RA IDCO Implantable Lead Model 5568 IDCO Implantable Lead Serial Number [id number] IDCO Implantable Lead Rn Clinical Research Medtronic IDCO Implantable Lead Implant Date IDCO Implantable Lead Polarity Type Bipolar Lead IDCO Implantable Lead Location Right Atrium IDCO Implantable Lead Connection Status Connected IDCO Implantable Lead Special Function Pace in LV IDCO Implantable Lead Model 1458Q Quartet(TM) IDCO Implantable Lead Serial Number [id number] IDCO Implantable Lead Rn Clinical Research [facility] IDCO Implantable Lead Implant Date IDCO Implantable Lead Polarity Type Quadripolar Lead IDCO Implantable Lead Location Left Ventricle IDCO Implantable Lead Connection Status Connected IDCO Implantable Lead Special Function Defibrillation in RV IDCO Implantable Lead Model 7122Q Durata(TM) IDCO Implantable Lead Serial Number [id number] IDCO Implantable Lead Rn Clinical Research [facility] IDCO Implantable Lead Implant Date IDCO Implantable Lead Polarity Type Bipolar Lead IDCO Implantable Lead Location Right Ventricle IDCO Implantable Lead Connection Status Connected IDCO Date Time Interrogation Session [id number] IDCO Type Interrogation Session Remote Scheduled IDCO Re-programmed During Session NO IDCO Date Time Previous Interrogation Session [id number] IDCO Clinician Name N/A IDCO Clinician Contact Information N/A IDCO Clinic Name N/A IDCO Battery Date Time of Measurements [id number] IDCO Battery Status Middle of Service IDCO Battery Voltage 2.86 V IDCO Battery Remaining Longevity 14 mo IDCO Battery Remaining Percentage 28.0 % IDCO Battery ACCOUNTING METHODS ANALYST Trigger When current voltage < 2.59 volts IDCO Capacitor Charge Type Reformation IDCO Capacitor Last Charge Date Time [id number] IDCO Capacitor Charge Time 10.0 s IDCO Capacitor Charge Energy 40 J IDCO Lead Channel Measurements Date and Time Start [id number] IDCO Lead Channel Measurements Date and Time End [id number] IDCO Lead Channel Sensing Intrinsic Amplitude 2.1 mV IDCO Lead Channel Sensing Polarity Bipolar IDCO Lead Channel Pacing Threshold Amplitude 1.0 V IDCO Lead Channel Pacing Threshold Pulse Width 1.0 ms IDCO Lead Channel Pacing Threshold Polarity Bipolar IDCO Lead Channel Pacing Threshold Measurement Method Laser/Electro Optics Technician Manual IDCO Lead Channel Impedance Value 380 Ohm IDCO Lead Channel Impedance Polarity Bipolar IDCO Lead Channel Status Null IDCO Lead Channel Measurements Date and Time Start [id number] IDCO Lead Channel Measurements Date and Time End [id number] IDCO Lead Channel Sensing Intrinsic Amplitude 12.0 [...] Lead Channel Measurements Date and Time Start [id number] IDCO Lead Channel Measurements Date and Time End [id number] IDCO Lead Channel Pacing Threshold Amplitude 0.75 V IDCO Lead Channel Pacing Threshold Pulse Width 0.8 ms IDCO Lead Channel Pacing Threshold Polarity Bipolar IDCO Lead Channel Pacing Threshold Measurement Method Laser/Electro Optics Technician Manual IDCO Lead Channel Impedance Value 830 Ohm IDCO Lead Channel Impedance Polarity Bipolar IDCO Lead Channel Status Null IDCO Lead High Voltage Channel Measurement Type Shock IDCO Lead High Voltage Channel Date Time IDCO Lead High Voltage Channel Impedance 62 Ohm IDCO Lead High Voltage Channel Status Null IDCO Lead High Voltage Channel Measurement Type Low Voltage Pulse IDCO Lead High Voltage Channel Date Time IDCO Lead High Voltage Channel Impedance 62 Ohm IDCO Lead High Voltage Channel Status Null IDCO LAMINATION INSPECTOR LV-RV Delay 30 ms IDCO Ventricular chambers paced during LAMINATION INSPECTOR pacing. BiV IDCO Magnet Response Normal IDCO [...] Setting Pacing Capture Mode Fixed Pacing IDCO [facility]_SET_LEAD HVCHNL_SHOCK_VEC TOR_ANODE_LOCATI ON_1 Right Ventricle IDCO [facility]_SET_LEAD HVCHNL_SHOCK_VEC TOR_ANODE_ELECTR ODE_1 Coil IDCO [facility]_SET_LEAD HVCHNL_SHOCK_VEC TOR_CATHODE_LOCA TION_1 Other IDCO [facility]_SET_LEAD HVCHNL_SHOCK_VEC TOR_CATHODE_ELEC TRODE_1 Can IDCO Grabiel Setting [...] Start IDCO Grabiel Statistic RA Percent Paced 81.0 % IDCO Grabiel Statistic AP DRINK MIXER Percent 81.0 % IDCO Grabiel Statistic DRINK MIXER Percent 18.0 % IDCO Grabiel Statistic AP VS Percent 1.0 % IDCO Grabiel Statistic VS Percent 1.0 % IDCO Atrial Tachy Statistic Date Time End IDCO Atrial Tachy Statistic Date Time Start IDCO Atrial Tachy Statistic Maximum Mode Switch Duration 72 s IDCO Atrial Tachy Statistic Percent Time In Mode Switch 1 % IDCO Atrial Tachy Statistic Number Of Mode Switches 3 {switch es} IDCO Atrial Tachy Statistic Number Of Mode Switches Per Day 0 {switch es} IDCO Atrial Tachy Statistic AT/AF [place] Percent 1 % IDCO LAMINATION INSPECTOR Statistic Date Time End IDCO LAMINATION INSPECTOR Statistic Date Time Start IDCO LAMINATION INSPECTOR Statistic LAMINATION INSPECTOR Percent Paced 99.0 % IDCO Therapy Statistic Recent Date Time End IDCO Therapy Statistic Recent Date Time Start IDCO Therapy Statistic Recent Shocks Delivered 0 {shocks } IDCO Therapy Statistic Recent Shocks Aborted 0 {shocks } IDCO Therapy Statistic Recent ATP Delivered 0 {seq} IDCO Episode Statistic Recent Date Time End IDCO Episode Statistic Recent Date Time Start IDCO Episode Identifier [id number] IDCO Episode Date Time IDCO Episode Detection And Therapy Details AMS IDCO Episode Duration 18 s IDCO Episode Vendor Type Category AMS IDCO Episode Type Category Other IDCO Episode Identifier [id number] IDCO Episode Date Time [id number] IDCO Episode Detection And Therapy Details AMS IDCO Episode Duration 72 s IDCO Episode Vendor Type Category AMS IDCO Episode Type Category Other IDCO Episode Identifier [id number] IDCO Episode Date Time [id number] IDCO Episode Detection And Therapy Details AMS IDCO Episode Duration 14 s IDCO Episode Vendor Type Category AMS IDCO Episode Type Category Other IDCO Anatomical Region Laterality Modality Other 03/16/2021 2:50 AM EST Physician Cardiology IMPLANTABLE CARD IAC DEVICE documented in this encounter Visit Diagnoses Not on filedocumented in this encounter Care Teams Automobile Contract Clerk Relationship Specialty Start Date End Date Carlos Valdez MD [address] [place] [address] PCP - General 03/25/11 08/07/22 documented as of this encounter
--- OUTSIDE RECORDS SUMMARY | 2023-12-11 18:44 | XMS_ITS | Encounter Summary ---
Author Organization [facility] [place] [address] Care Team Providers Care Water Quality Assistant Name Role Phone Carlos Valdez MD Primary Care Provider [phone] Reason for Visit * Reason Comments Medication Refill Encounter Details Date Type Department Care Team (Late st Contact Info) Description 10/29/2019 Refill Cardiology at [address] [phone] Xin Grewal, INFUSION PHARMACIST [facility] [place] [address] Medication Refill Social History Tobacco Use Types [...] AM EST Hospital Encounter Non-[place] [phone] Arrived documented as of this encounter Visit Diagnoses Not on filedocumented in this encounter Care Teams Water Quality Assistant Relationship Specialty Start Date End Date Carlos Valdez MD [address] [place] [address] PCP - General 03/25/11 08/07/22 documented as of this encounter
--- OUTSIDE RECORDS SUMMARY | 2023-12-11 18:44 | XMS_ITS | Encounter Summary ---
Author Organization [facility] [place] [address] Care Team Providers Care Sas Clinical Programmer Name Role Phone Carlos Valdez MD Primary Care Provider [phone] Reason for Visit * Reason Comments Medication Refill Encounter Details Date Type Department Care Team (Late st Contact Info) Description 05/03/2020 Refill Cardiology at [address] [phone] Xin Grewal, REGULATORY ADMINISTRATOR [facility] [place] [address] Medication Refill Social History Tobacco Use Types [...] AM EST Hospital Encounter Non-Invasive [place] [phone] Arrived documented as of this encounter Visit Diagnoses Not on filedocumented in this encounter Care Teams Sas Clinical Programmer Relationship Specialty Start Date End Date Carlos Valdez MD [address] [place] [address] PCP - General 03/25/11 08/07/22 documented as of this encounter
--- OUTSIDE RECORDS SUMMARY | 2023-12-11 18:44 | XMS_ITS | Encounter Summary ---
[facility] [place] [address] Care Team Providers Care Student Development Specialist Name Role Phone Carlos Valdez MD Primary Care Provider [phone] Encounter Details Date Type Department Care Team (Late st Contact Info) Description 03/11/2020 Orders Only Cardiology at [address] [phone] Xin Grewal, SURVEY RESEARCHER [facility] [place] [address] Dilated cardiomyopathy Social History Tobacco Use Types Packs/Day [...] AM EST Hospital Encounter [place] [phone] Arrived documented as of this encounter Visit Diagnoses Diagnosis Dilated cardiomyopathy Other primary cardiomyopathies documented in this encounter Care Teams Student Development Specialist Relationship Specialty Start Date End Date Carlos Valdez MD [address] [address] PCP - General 03/25/11 08/07/22 documented as of this encounter
--- OUTSIDE RECORDS SUMMARY | 2023-12-11 18:44 | XMS_ITS | Encounter Summary ---
[facility] Organization [facility] [place] [address] Care Team Providers Care Surgical Supervisor Name Role Phone Carlos Valdez MD Primary Care Provider [phone] Encounter Details Date Type Department Care Team (Late st Contact Info) Description 05/06/2019 2:40 PM EST Office Visit Cardiology at [address] [address] Xin Grewal, [facility] [place] [address] Chronic systolic heart failure; Non-ischemic cardiomyopathy; LBBB (left bundle branch block); Essential hypertension Social History Tobacco Use Types [...] Sign Reading Time Taken Comments Blood Pressure 158/79 05/06/2019 2:00 PM EST Pulse 69 05/06/2019 2:00 PM EST Temperature - - Respiratory Rate - - Oxygen Saturation 99% 05/06/2019 2:00 PM EST Inhaled Oxygen Concentration - - Weight 103.4 kg (228 lb) 05/06/2019 2:00 PM EST Height 198.1 cm (6' 5.99) 05/06/2019 2:00 PM ES T Body Mass Index 26.35 05/06/2019 2:00 PM EST documented in this encounter Progress Notes * Xin Grewal, MISSILEMAN - 05/06/2019 2:40 PM EST Images from the original note were not included. [facility] [place] [address] CARDIOMYOPATHY/HEART FAILURE SERVICE OUTPATIENT CLINIC NOTE Jatinder Morrell 05/06/2019 Primary Care Provider: Carlos Valedz MD Referring Provider: Carlos Valdez HISTORY OF PRESENT ILLNESS: Jatinder Morrell is a 73 y.o. patient with history of pericarditis following PCM implant in 2012, complete heart block with CRTd upgrade in place, nonobstructive coronary artery disease, cardiomyopathy (recovered LV function) seen in routine follow up in the [facility] Heart Failure [facility]. Last seen: September 2018 He has had no interim illnesses or hospitalizations. At last visit no medication changes were recommended. Closer surveillance of blood pressure was suggested in light of mildly elevated BPs in the office. Updated echocardiogram showed stable LV function at approximately 55% He reports generally systolic BPs 130-140 in the morning. BPs are generally about 10 points higher in the afternoon. He remains as active as always. He is able to shovel snow. He reports no limiting symptoms. There was discussion of random chest discomfort described as fleeting about once per week over the last 6 months. Pain is not specifically associated with exertion. Weight is up a few pounds over the winter months but he does not believe it is fluid retention. [place] He denies syncope presyncope lightheadedness or dizziness. There is no orthopnea or PND. No rapid heartbeat or pounding in his chest. Device evaluation performed in advance of our visit today showed appropriate BVP% and no sustained arrhythmias. Core view previously elevated now at baseline Patient Active Problem List Diagnosis ??? Biventricular implantable cardioverter-defibrillator in situ- [employer] 02/19/2013 Cardiac Resynchronization Therapy ICD Upgrade (explant of pacemaker pulse generator), peripheral Subclavian Venography, Cinefluoroscopy, pacemaker pocket revision and defibrillation safety margin testing, under General anesthesia Indication: Cardiomopathy with congestive heart failure and ventricular dyssynchrony, ventricular pacing New Ventricular electrode: [employer] Model# 7122Q-58 cm Serial #[id number] Implanted 02/18/2013 Bipolar, steroid-tipped, active-fixation DF-4 lead Access: Axillary vein Location: Right ventricular apical septum (old) Atrial electrode: Medtronic, Model # 5568-52 cm Serial # [id number] Implanted 06/14/2012 Bipolar, steroid-tipped, active-fixation IS-1 lead Access: Not known Location Right atrium anterolateral Coronary sinus electrode: [employer] 1458Q/86 Serial number [id number] Implanted 02/18/2013 Quadripolar passive active fixation lead Access: Subclavian vein Location: Coronary sinus, posterolateral vein Pulse generator: [employer] [id number] Serial number [id number] Implanted 02/18/2013 GUNCOTTON PACKER ICD Location: Subcutaneous Old ventricular lead : Medtronic 5075 Serial number [id number] (capped 02/18/2013) Old pulse generator: Medtronic ADDR01 Serial number [id number] (removed 02/18/2013) Detection and termination of ventricular tachyarrhythmias was performed with the ICD set to minimalsensitivity A T-Wave shock (4 S1 at 400 ms with a 310 ms delay and 1.2 Joule biphasic waveform) induced ventricular fibrillation that was successfully terminated with a 20 Joule shock (impedance 68 ohms). Generator change 03/25/16: New Pulse Generator [employer] [id number] Serial number [id number] Implanted 03/25/2016 GUNCOTTON PACKER ICD Location: Subcutaneous ??? Non-ischemic cardiomyopathy Dilated [...] with left bundle branch block, PVCs, QRS yainplrp=830 msec. Symptomatic CHB 06/13/12- s/p DDDR pacemaker 100% V paced rhythm SPEP/Free Light Chains- Results for JATINDER MORRELL ( ) as of 07/10/2016 19:35 Ref. Range 10/19/2015 14:06 10/19/2015 14:07 [place] Free Light Chains Latest Ref Range: 0.33 [...] Carvedilol ROSY/ARB Yes Losartan Spironolactone no Previously 4589-7900, d/c secondary to side effects (hives), no rechallenge Amlodipine Yes Initiated 05/30 [place] AFIB? no Anticoagulated AICD/Type GUNCOTTON PACKER-D LBBB, EF dropped to 35%- 04/02/13 back up at ~ 50% post GUNCOTTON PACKER--> EF=65% NSR with LBBB, QRS= 170 ms [...] 08/01/12 ??? LBBB (left bundle branch block) UYX=626 ms New Symptomatic CHB 05/30-->declined pacer at [...] Dual Chamber Model # ADDR01, Serial number [id number] -[place], [place] ??? Pericarditis New chest discomfort ~ 2 weeks post DDD pacer implant Elevated C reactive protein; pericardial effusion->improved with NSAID and colchicine. Should be on colchicine until Nov 18, 2012 Elevated ProBNP, some clinical response with diuretics Stress Echo, LVEF=44%, no change, no definite ischemia, poor exercise tolerance, no pericardial effusion noted on stress Trivial pleural effusion on chest x-ray Elevated BBK=210 a-->3.8 AN ESR=53 on index presentation --> [...] The patient reports thathe quit smoking about 23 years ago. His smoking use included cigarettes. [...] Outpatient Medications Marked as Taking for the 05/06/19 encounter (Office Visit) with Vanessa Grewal APRN Medication Sig Dispense Refill ??? losartan (COZAAR) 100 mg Tablet Take 1 tablet by mouth daily. 90 tablet 3 ??? carvedilol (COREG) 6.25 mg Tablet Take 1 tablet by mouth 2 times daily (with meals). 180 tablet3 ??? multivitamin (THERAGRAN) Tablet Take 1 tablet by mouth daily. ??? pravastatin (PRAVACHOL) 10 mg Tablet Take 10 mg by mouth daily. ??? zhychrc-qydzdvzsebygf-ayrwcegd (EXCEDRIN MIGRAINE) 250-250-65 mg per tablet Take [...] Signs: Wt Readings from Last 3 Encounters: 05/06/19 103.4 kg (228 lb) 05/06/19 103.4 kg (228 lb) 10/05/18 103.9 kg (229 lb) Temp Readings from Last 3 Encounters: 03/25/16 36.3 ??C (97.3 ??F) (Temporal) 02/11/13 35.6 ??C (96 ??F) (Temporal) BP Readings from Last 3 Encounters: 05/06/19 158/79 05/06/19 158/79 10/05/18 (!) 173/93 Pulse Readings from Last 3 Encounters: 05/06/19 69 05/06/19 69 10/05/18 61 SpO2: [99 %] General -pleasant and in NAD. HEENT [...] STUDIES: Chemistry Component Value Date/Time NA 141 05/06/2019 1305 K 4.4 05/06/2019 1305 CL 102 05/06/2019 1305 CO2 26 05/06/2019 1305 BUN 15 05/06/2019 1305 CREATININE 0.91 05/06/2019 1305 Component Value Date/Time CALCIUM 9.9 05/06/2019 1305 ALKPHOS 51 09/13/2017 0900 AST 15 09/13/2017 0900 ALT 15 09/13/2017 0900 BILITOT 0.7 09/13/2017 0900 ProBNP Date Value Ref Range Status 05/06/2019 202 (H) <=125 pg/mL Final 10/05/2018 186 (H) <=125 pg/mL Final 03/16/2018 81 <=125 pg/mL Final CARDIAC STUDIES: Echo 09/2018 [...] hemodynamically significant valve disease. 5. Compared with bret dated 08/2017, no significant change is noted. ?? PROBLEMS: LBBB (left bundle branch block) S/p GUNCOTTON PACKER-D, 99% V Paced ?? H/O Pericarditis Without recurrence ?? Heart failure chronic systolic dysfunction Appears well compensated , euvolemic ?? Non-ischemic cardiomyopathy Stable, recovered LVEF on low dose b-makeda, high dose ARB, and GUNCOTTON PACKER Intolerant to spironolactone ?? Biventricular implantable cardioverter-defibrillator in situ- [facility] Andrew Stable HTN Suboptimal control today and based on home reports suggested suboptimal a good portion of the time.Higher dose carvedilol has caused fatigue in the past. He is on target dose losartan. We will add amlodipine. RECOMMENDATIONS: 1. MEDICATIONS: The patient's medication list was updated and new Rxs given as needed. The medication list was reviewed with the patient, rationale for therapy and potential side effects to be aware of discussed. -Begin amlodipine 5 mg daily 2. The following labs, referrals or other testing advised: -None today 3. COUNSELING: Specific issues or questions addressed on this visit: -Ongoing exercise, maintain reasonable weight, limit EtOH 4. Cardiology follow-up scheduled for: -6 months with device check and labs and echo XIN GREWAL APRN documented in this encounter Plan of Treatment Upcoming Encounters Date Type Department Care Team (Late st Contact Info) Description 02/26/2024 10:00 AM EST Hospital Encounter [place] [address] Arrived documented as of this encounter Results * (ABNORMAL) pro-Brain Natriuretic Peptide (05/06/2019 1:05 PM EST) NT-proBNP 202(H) <=125 pg/mL [facility] Blood specimen (specimen) 05/06/2019 1:05 PM EST 05/06/2019 1:09 PM EST Narrative Resulting Agency Comment Spec In Lab Xin Grewal APRN CHEMISTRY ORDERABLES [facility] [place] [place] [address] * Basic Metabolic Panel (non-fasting) (05/06/2019 1:05 PM EST) Glucose 95 65 - 199 mg/dL [facility] Comment:Diabetes: >=200 mg/d L plus symptoms Blood Urea Nitrogen 15 10 - 20 mg/dL [facility] Creatinine 0.91 0.80 - 1.50 mg/dL [facility] Sodium 141 135 - 145 mmol/L [facility] Potassium 4.4 3.5 - 5.0 mmol/L [facility] Comment: Please note: ??Patients with WBC >100,000 may have falsely elevated Potassium levels. ??For accurate Potassium quantification in these patients send serum separator tube (gold top) for subsequent determinations. ??Contact the Clinical Chemistry Laboratory if there are any questions. Chloride 102 98 - 107 mmol/L [facility] Carbon Dioxide 26 22 - 31 mmol/L [facility] Anion Gap 13 5 - 15 mmol/L [facility] Calcium 9.9 8.5 - 10.5 mg/dL [facility] Est Glomerular Filtration Rate 83 >=60 mL/min/1. 73 m?? [facility] Comment: The eGFR was calculated using the CKD-EPI equation. As with all creatinine based estimates of kidney function, eGFR values calculated with the CKD-EPI equation are not accurate in patients with acute kidney failure, extremes of body mass or the acutely ill. [email or web address] eGFR 97 >=60 mL/min/1. 73 m?? [facility] Comment: The eGFR was calculated using the CKD-EPI equation. As with all creatinine based estimates of kidney function, eGFR values calculated with the CKD-EPI equation are not accurate in patients with acute kidney failure, extremes of body mass or the acutely ill. [email or web address] Blood specimen (specimen) 05/06/2019 1:05 PM EST 05/06/2019 1:09 PM EST Narrative Resulting Agency Comment Spec In Lab Xin Grewal APRN CHEMISTRY ORDERABLES [facility] [place] [address] documented in this encounter Visit Diagnoses Diagnosis Chronic systolic heart failure Non-ischemic cardiomyopathy Other primary cardiomyopathies LBBB (left bundle branch block) Other left bundle branch block Essential hypertension Unspecified essential hypertension documented in this encounter Care Teams Surgical Supervisor Relationship Specialty Start Date End Date Carlos Valdez MD [address] [facility] [address] [place] [address] PCP - General 03/25/11 08/07/22 documented as of this encounter
--- OUTSIDE RECORDS SUMMARY | 2023-12-11 18:44 | XMS_ITS | Encounter Summary ---
[place] [address] Care Team Providers Care Senior Engineering Tech Name Role Phone Carlos Valdez MD Primary Care Provider [phone] Encounter Details Date Type Department Care Team (Latest Contact Info) Description 05/06/2019 2:00 PM EST Office Visit Cardiology at [address] [phone] Izzy Holt RN Non-ischemic cardiomyopathy Social History Tobacco Use Types [...] Time Taken Comments Blood Pressure 158/79 05/06/2019 1:56 PM EST Pulse 69 05/06/2019 1:56 PM EST Temperature - - Respiratory Rate - - Oxygen Saturation 99% 05/06/2019 1:56 PM EST Inhaled Oxygen Concentration - - Weight 103.4 kg (228 lb) 05/06/2019 1:56 PM EST Height 198.1 cm (6' 6) 05/06/2019 1:56 PM EST Body Mass Index 26.35 05/06/2019 1:56 PM EST documented in this encounter Progress Notes * Izzy Holt RN - 05/06/2019 2:00 PM EST Images from the original note were not included. Clinical Electrophysiology Device Service Note Pacemaker Clinic Follow-Up Jimmie Mccauley is a 73 y.o. male who presents today in the device clinic for AMERICAN INDIAN POLICY SPECIALIST- D programming evaluation, he is seeing Angélica Grewal APRN to follow. He denies further shortness of breath with activity. Hx: He had an elective generator replacement done secondary to a recall 03/25/2016. He originally had a pacemaker implanted 06/14/2012 for CHB. This was completed at [facility] in [place], [place]. He underwent upgrade to AMERICAN INDIAN POLICY SPECIALIST-D on 02/18/2013 for CHF, CM, ventricular dyssynchrony. PACEMAKER DEPENDENT Concrete Mixing Plant Laborer: Brady Ugarte MD Final Parameters at Implant: (Old) Ventricular electrode: [employer] Model# 7122Q-58 cm Serial #[id number] Implanted 02/18/2013 (old) Atrial electrode: Pixelpipe, Model # 5568-52 cm Serial # [id number] Implanted 06/14/2012 (old) Coronary sinus electrode: [employer] 1458Q/86 Serial number [id number] Implanted 02/18/2013 New Pulse Generator: [employer] [id number] Serial number [id number] Implanted 03/25/2016 Follow Up Today: Settings: Bi-V DDDR 70/130/130, PAV 200 ms, ROSAURA 150 ms, LV->RV 30 ms, mode switch 180 bpm Underlying rhythm: Sinus rate -44-51 bpm with CHB no ventricular escape >30 bpm Presenting: AP/BIVP Heart rate histograms: Left shifted Since October 05, 2018 Atrial lead impedance: 360 ohms RV lead impedance: 350 ohms LV lead impedance: 760 ohms M3-M2 RV shock impedance 64 ohms RV to Can Lead impedance trends stable P wave: 2.9 mV R wave: None >30 bpm Atrial capture threshold: 1.5 @ 1.0 ms Chronically elevated in former pacemaker as well. A Cap Confirm was NOT recommended RV capture threshold: 0.75 V at 0.5 ms. RV Cap Confirm recommended LV capture threshold: 1.0 V at 0.8 ms M3-M2. LV Cap Confirm recommended. Chronically elevated -changing pulse width did not decrease this safety margin set at 0.5 V Pacing percentages: AP 83 %; TECHNICAL ARTIST >99 % Mode switch episodes: 0% VHR: None PVC: <1% Corvue: Last elevated for 8 days late February 2019- early Mar, 2019 Battery: 31 uA, 52 %, est 2.2 years to MARY BETH Charge time: 9.6 sec 03/28/2019 Changes made this session: iterative changes made to the device for testing purposes. Increased Pulse width in the LV to 0.8 ms and decreased Amplitude to 1.75 V-cap confirm not recommended today Incision assessment: L chest healed, device is prominent. Skin intact and no signs of erosion Plan: Remote in 3 months, RTC in 6 months linked with heart failure team Provider: Izzy Holt RN Attending: Dr. Simms documented in this encounter Plan of Treatment Upcoming Encounters Date Type Department Care Team (Late st Contact Info) Description 02/26/2024 10:00 AM EST Hospital Encounter Non-[place] [address] Arrived documented as of this encounter Visit Diagnoses Diagnosis Non-ischemic cardiomyopathy Other primary cardiomyopathies documented in this encounter Care Teams Senior Engineering Tech Relationship Specialty Start Date End Date Carlos Valdez MD [address] [place] [address] PCP - General 03/25/11 08/07/22 documented as of this encounter
--- OUTSIDE RECORDS SUMMARY | 2023-12-11 18:44 | XMS_ITS | Encounter Summary ---
Author Organization [facility] [place] [address] Care Team Providers Care Public Speaker Name Role Phone Carlos Valdez MD Primary Care Provider Reason for Visit * Reason Onset Date Comments Medication Refill 04/28/2020 amlodipine Encounter Details Date Type Department Care Team (Late st Contact Info) Description 04/28/2020 Refill Cardiology at [address] [address] Xin Grewal APRN [facility] [place] [address] Medication Refill (amlodipine) Social History Tobacco Use Types Packs/Day Years [...] Telephone Encounter - Brunilda Richardson RN - 04/30/2020 11:32 AM EST Pt just in to see Dr Child at [facility] on 04/17/20. Refill forwarded to Dr Child to sign documented in this encounter Plan of Treatment Upcoming Encounters Date Type Department Care Team (Late st Contact Info) Description 02/26/2024 10:00 AM EST Hospital Encounter [place] [address] Arrived documented as of this encounter Visit Diagnoses Not on filedocumented in this encounter Care Teams Public Speaker Relationship Specialty Start Date End Date Carlos Valdez MD [address] [place] [address] PCP - General 03/25/11 08/07/22 documented as of this encounter
--- OUTSIDE RECORDS SUMMARY | 2023-12-11 18:44 | XMS_ITS | Encounter Summary ---
Author Organization [place] [address] Care Team Providers Care Steel Heater Name Role Phone Carlos Valdez MD Primary Care Provider [phone] Encounter Details Date Type Department Care Team (Late st Contact Info) Description 01/10/2020 [place] [phone] Carlos Valdez MD [address] [address] Social History Tobacco Use Types Packs/Day Years [...] as of this encounter Progress Notes * Chivo Enriquez PA - 01/10/2020 11:59 PM EDT DEVICE REMOTE DOWNLOAD 01/10/2020 Device: [employer] Quadra Assura Type: SECURITY SYSTEM ENGINEER-D Battery: 1.7 years Pacing mode DDDR 60/130 Pacing: A paced 82%, Bi-V paced greater than 99% Events: Atrial: AT/AF burden less than 1% since May 06, 2019 Ventricular: 1 nonsustained [place] episode lasting 8 seconds on January 09, 2020 at 10:09 PM with ventricular rate up to 233 bpm Impression: Normal device function with optimal SECURITY SYSTEM ENGINEER pacing. There was one brief nonsustained ventricular tachycardia episode. No other arrhythmias or device therapies. Plan: Follow-up in device clinic as previously arranged. Chivo Enriquez PA-C 01/10/2020 documented in this encounter Plan of Treatment Upcoming Encounters Date Type Department Care Team (Late st Contact Info) Description 02/26/2024 10:00 AM EST Hospital Encounter Non-Invasive [place] [address] Arrived documented as of this encounter Visit Diagnoses Not on filedocumented in this encounter Care Teams Steel Heater Relationship Specialty Start Date End Date Carlos Valdez MD [address] [place] [address] PCP - General 03/25/11 08/07/22 documented as of this encounter
--- OUTSIDE RECORDS SUMMARY | 2023-12-11 18:44 | XMS_ITS | Encounter Summary ---
[place] [address] Care Team Providers Care Senior Interaction Designer Name Role Phone Carlos Valdez MD Primary Care Provider [phone] Encounter Details Date Type Department Care Team (Late st Contact Info) Description 04/20/2021 Orders Only Cardiology at [address] [phone] Social History Tobacco Use Types Packs/Day Years [...] AM EST Hospital Encounter Non[place] [phone] Arrived documented as of this encounter Procedures Procedure Name Priority Date/Time Associated Diagnosis Comments CARDIAC DEVICE CHECK - REMOTE SCHEDULED Routine 04/20/2021 2:00 AM EST documented in this encounter Results * Cardiac device check - Remote Scheduled (04/20/2021 2:00 AM EST) Implantable Pulse Generator Type Cardiac Resynchronization Therapy - Defibrillator IDCO Implantable Pulse Generator Model 3365-40 IDCO Implantable Pulse Generator Serial Number [id number] IDCO Implantable Pulse Generator Healthcare Consulting Manager [facility] IDCO Implantable Pulse Generator Implant Date IDCO Implantable Pulse Generator Implanter N/A IDCO Implantable Pulse Generator Implanter Contact Information N/A IDCO Implantable Pulse Generator Implanting Facility N/A IDCO Implantable Lead Special Function Sense and Pace in RA IDCO Implantable Lead Model 5568 IDCO Implantable Lead Serial Number [id number] IDCO Implantable Lead Healthcare Consulting Manager Medtronic IDCO Implantable Lead Implant Date IDCO Implantable Lead Polarity Type Bipolar Lead IDCO Implantable Lead Location Right Atrium IDCO Implantable Lead Connection Status Connected IDCO Implantable Lead Special Function Pace in LV IDCO Implantable Lead Model 1458Q Quartet(TM) IDCO Implantable Lead Serial Number [id number] IDCO Implantable Lead Healthcare Consulting Manager [facility] IDCO Implantable Lead Implant Date IDCO Implantable Lead Polarity Type Quadripolar Lead IDCO Implantable Lead Location Left Ventricle IDCO Implantable Lead Connection Status Connected IDCO Implantable Lead Special Function Defibrillation in RV IDCO Implantable Lead Model 7122Q Durata(TM) IDCO Implantable Lead Serial Number [id number] IDCO Implantable Lead Healthcare Consulting Manager [facility] IDCO Implantable Lead Implant Date IDCO Implantable Lead Polarity Type Bipolar Lead IDCO Implantable Lead Location Right Ventricle IDCO Implantable Lead Connection Status Connected IDCO Date Time Interrogation Session [id number] IDCO Type Interrogation Session Remote Scheduled IDCO Re-programmed During Session NO IDCO Date Time Previous Interrogation Session [id number] IDCO Clinician Name N/A IDCO Clinician Contact Information N/A IDCO Clinic Name N/A IDCO Battery Date Time of Measurements [id number] IDCO Battery Status Middle of Service IDCO Battery Voltage 2.8 V IDCO Battery Remaining Longevity 12 mo IDCO Battery Remaining Percentage 23.0 % IDCO Battery SAP ANALYST Trigger When current voltage < 2.59 volts IDCO Capacitor Charge Type Reformation IDCO Capacitor Last Charge Date Time [id number] IDCO Capacitor Charge Time 10.0 s IDCO Capacitor Charge Energy 40 J IDCO Lead Channel Measurements Date and Time Start [id number] IDCO Lead Channel Measurements Date and Time End [id number] IDCO Lead Channel Sensing Intrinsic Amplitude 2.1 mV IDCO Lead Channel Sensing Polarity Bipolar IDCO Lead Channel Pacing Threshold Amplitude 1.0 V IDCO Lead Channel Pacing Threshold Pulse Width 1.0 ms IDCO Lead Channel Pacing Threshold Polarity Bipolar IDCO Lead Channel Pacing Threshold Measurement Method Attendant Campground Manual IDCO Lead Channel Impedance Value 390 Ohm IDCO Lead Channel Impedance Polarity Bipolar IDCO Lead Channel Status Null IDCO Lead Channel Measurements Date and Time Start [id number] IDCO Lead Channel Measurements Date and Time End [id number] IDCO Lead Channel Sensing Intrinsic Amplitude 12.0 [...] Lead Channel Measurements Date and Time Start [id number] IDCO Lead Channel Measurements Date and Time End [id number] IDCO Lead Channel Pacing Threshold Amplitude 0.75 V IDCO Lead Channel Pacing Threshold Pulse Width 0.8 ms IDCO Lead Channel Pacing Threshold Polarity Bipolar IDCO Lead Channel Pacing Threshold Measurement Method Attendant Campground Manual IDCO Lead Channel Impedance Value 850 Ohm IDCO Lead Channel Impedance Polarity Bipolar IDCO Lead Channel Status Null IDCO Lead High Voltage Channel Measurement Type Shock IDCO Lead High Voltage Channel Date Time IDCO Lead High Voltage Channel Impedance 70 Ohm IDCO Lead High Voltage Channel Status Null IDCO Lead High Voltage Channel Measurement Type Low Voltage Pulse IDCO Lead High Voltage Channel Date Time IDCO Lead High Voltage Channel Impedance 70 Ohm IDCO Lead High Voltage Channel Status Null IDCO EMPLOYMENT EDUCATIONAL COORD LV-RV Delay 30 ms IDCO Ventricular chambers paced during EMPLOYMENT EDUCATIONAL COORD pacing. BiV IDCO Magnet Response Normal IDCO [...] Setting Pacing Capture Mode Fixed Pacing IDCO [facility]_IDC_SET_LEAD HVCHNL_SHOCK_VEC TOR_ANODE_LOCATI ON_1 Right Ventricle IDCO [facility]_IDC_SET_LEAD HVCHNL_SHOCK_VEC TOR_ANODE_ELECTR ODE_1 Coil IDCO [facility]_IDC_SET_LEAD HVCHNL_SHOCK_VEC TOR_CATHODE_LOCA TION_1 Other IDCO [facility]_IDC_SET_LEAD HVCHNL_SHOCK_VEC TOR_CATHODE_ELEC TRODE_1 Can IDCO Grabiel Setting [...] Paced 81.0 % IDCO Grabiel Statistic AP STAFF DEVELOPMENT COORDINATOR RN Percent 81.0 % IDCO Grabiel Statistic STAFF DEVELOPMENT COORDINATOR RN Percent 18.0 % IDCO Grabiel Statistic AP [...] {switch es} IDCO Atrial Tachy Statistic AT/AF [place] Percent 1 % IDCO EMPLOYMENT EDUCATIONAL COORD Statistic Date Time End IDCO EMPLOYMENT EDUCATIONAL COORD Statistic Date Time Start IDCO EMPLOYMENT EDUCATIONAL COORD Statistic EMPLOYMENT EDUCATIONAL COORD Percent Paced 99.0 % IDCO Therapy Statistic Recent Date Time End IDCO Therapy Statistic Recent Date Time Start IDCO Therapy Statistic Recent Shocks Delivered 0 {shocks } IDCO Therapy Statistic Recent Shocks Aborted 0 {shocks } IDCO Therapy Statistic Recent ATP Delivered 0 {seq} IDCO Episode Statistic Recent Date Time End IDCO Episode Statistic Recent Date Time Start IDCO Episode Identifier [id number] IDCO Episode Date Time [id number] IDCO Episode Detection And Therapy Details AMS IDCO Episode Duration 18 s IDCO Episode Vendor Type Category AMS IDCO Episode Type Category Other IDCO Episode Identifier [id number] IDCO Episode Date Time [id number] IDCO Episode Detection And Therapy Details AMS IDCO Episode Duration 72 s IDCO Episode Vendor Type Category AMS IDCO Episode Type Category Other IDCO Episode Identifier [id number] IDCO Episode Date Time IDCO Episode Detection And Therapy Details AMS IDCO Episode Duration 14 s IDCO Episode Vendor Type Category AMS IDCO Episode Type Category Other IDCO Anatomical Region Laterality Modality Other 04/20/2021 2:00 AM EST Physician Cardiology IMPLANTABLE CARD IAC DEVICE documented in this encounter Visit Diagnoses Not on filedocumented in this encounter Care Teams Senior Interaction Designer Relationship Specialty Start Date End Date Carlos Valdez MD [address] [place] [address] PCP - General 03/25/11 08/07/22 documented as of this encounter
--- OUTSIDE RECORDS SUMMARY | 2023-12-11 18:44 | XMS_ITS | Encounter Summary ---
[place] [address] Care Team Providers Care Pipe Finisher Name Role Phone Carlos Valdez MD Primary Care Provider [phone] Encounter Details Date Type Department Care Team (Latest Contact Info) Description 10/05/2018 1:00 PM EDT Laboratory Appointment Lab [address] [place] [phone] Chronic systolic heart failure Social History Tobacco [...] AM EST Hospital Encounter Non-[place] [phone] Arrived documented as of this encounter Procedures Procedure Name Priority Date/Time Associated Diagnosis Comments PRO-BRAIN NATRIURETIC PEPTIDE STAT 10/05/2018 1:07 PM EDT Chronic systolic heart failure BASIC METABOLIC PANEL Routine 10/05/2018 1:07 PM EDT Chronic systolic heart failure documented in this encounter Results * Basic Metabolic Panel (non-fasting) (10/05/2018 1:07 PM EDT) Glucose 94 65 - 199 mg/dL [facility] Comment:Diabetes: >=200 mg/d L plus symptoms Blood Urea Nitrogen 18 10 - 20 mg/dL [facility] Creatinine 0.90 0.80 - 1.50 mg/dL [facility] Sodium 141 135 - 145 mmol/L [facility] Potassium 4.1 3.5 - 5.0 mmol/L [facility] Comment: Please note: ??Patients with WBC >100,000 may have falsely elevated Potassium levels. ??For accurate Potassium quantification in these patients send serum separator tube (gold top) for subsequent determinations. ??Contact the Clinical Chemistry Laboratory if there are any questions. Chloride 103 98 - 107 mmol/L [facility] Carbon Dioxide 30 22 - 31 mmol/L [facility] Anion Gap 8 5 - 15 mmol/L [facility] Calcium 9.6 8.5 - 10.5 mg/dL [facility] Est Glomerular Filtration Rate 84 >=60 mL/min/1. 73 m?? [facility] Comment: The eGFR was calculated using the CKD-EPI equation. As with all creatinine based estimates of kidney function, eGFR values calculated with the CKD-EPI equation are not accurate in patients with acute kidney failure, extremes of body mass or the acutely ill. [email or web address] eGFR 98 >=60 mL/min/1. 73 m?? [facility] Comment: The eGFR was calculated using the CKD-EPI equation. As with all creatinine based estimates of kidney function, eGFR values calculated with the CKD-EPI equation are not accurate in patients with acute kidney failure, extremes of body mass or the acutely ill. [email or web address] Blood specimen (specimen) 10/05/2018 1:07 PM EDT 10/05/2018 1:11 PM EDT Narrative Resulting Agency Comment Spec In Lab Xin Grewal APRN CHEMISTRY ORDERABLES Performing Organization Address City/[facility]/ZIP Co de Phone Number [facility] [place] [place] [address] * (ABNORMAL) pro-Brain Natriuretic Peptide (10/05/2018 1:07 PM EDT) NT-proBNP 186(H) <=125 pg/mL [facility] Blood specimen (specimen) 10/05/2018 1:07 PM EDT 10/05/2018 1:11 PM EDT Narrative Resulting Agency Comment Spec In Lab Xin Grewal APRN CHEMISTRY ORDERABLES Performing Organization Address [facility] Co de Phone Number [facility] [place] [place] [address] documented in this encounter Visit Diagnoses Diagnosis Chronic systolic heart failure documented in this encounter Care Teams Pipe Finisher Relationship Specialty Start Date End Date Carlos Valdez MD [address] [place] [address] PCP - General 03/25/11 08/07/22 documented as of this encounter
--- OUTSIDE RECORDS SUMMARY | 2023-12-11 18:44 | XMS_ITS | Encounter Summary ---
[place] [address] Care Team Providers Care It Systems Analyst Consultant Name Role Phone Carlos Valdez MD Primary Care Provider [phone] Encounter Details Date Type Department Care Team (Late st Contact Info) Description 02/09/2021 Orders Only Cardiology at [address] [phone] Social History Tobacco Use Types Packs/Day Years [...] EST Hospital Encounter Non-[place] [phone] Arrived documented as of this encounter Procedures Procedure Name Priority Date/Time Associated Diagnosis Comments CARDIAC DEVICE CHECK - REMOTE SCHEDULED Routine 02/09/2021 2:00 AM EST documented in this encounter Results * Cardiac device check - Remote Scheduled (02/09/2021 2:00 AM EST) Implantable Pulse Generator Type Cardiac Resynchronization Therapy - Defibrillator IDCO Implantable Pulse Generator Model 3365-40 IDCO Implantable Pulse Generator Serial Number [id number] IDCO Implantable Pulse Generator Cmm Programmer [facility] IDCO Implantable Pulse Generator Implant Date IDCO Implantable Pulse Generator Implanter N/A IDCO Implantable Pulse Generator Implanter Contact Information N/A IDCO Implantable Pulse Generator Implanting Facility N/A IDCO Implantable Lead Special Function Sense and Pace in RA IDCO Implantable Lead Model 5568 IDCO Implantable Lead Serial Number [id number] IDCO Implantable Lead Cmm Programmer Medtronic IDCO Implantable Lead Implant Date IDCO Implantable Lead Polarity Type Bipolar Lead IDCO Implantable Lead Location Right Atrium IDCO Implantable Lead Connection Status Connected IDCO Implantable Lead Special Function Pace in LV IDCO Implantable Lead Model 1458Q Quartet(TM) IDCO Implantable Lead Serial Number [id number] IDCO Implantable Lead Cmm Programmer [facility] IDCO Implantable Lead Implant Date IDCO Implantable Lead Polarity Type Quadripolar Lead IDCO Implantable Lead Location Left Ventricle IDCO Implantable Lead Connection Status Connected IDCO Implantable Lead Special Function Defibrillation in RV IDCO Implantable Lead Model 7122Q Durata(TM) IDCO Implantable Lead Serial Number [id number] IDCO Implantable Lead Cmm Programmer [facility] IDCO Implantable Lead Implant Date IDCO Implantable Lead Polarity Type Bipolar Lead IDCO Implantable Lead Location Right Ventricle IDCO Implantable Lead Connection Status Connected IDCO Date Time Interrogation Session [id number] IDCO Type Interrogation Session Remote Scheduled IDCO Re-programmed During Session NO IDCO Date Time Previous Interrogation Session [id number] IDCO Clinician Name N/A IDCO Clinician Contact Information N/A IDCO Clinic Name N/A IDCO Battery Date Time of Measurements [id number] IDCO Battery Status Middle of Service IDCO Battery Voltage 2.87 V IDCO Battery Remaining Longevity 14 mo IDCO Battery Remaining Percentage 27.0 % IDCO Battery HOUSING QUALITY STANDARD INSPECTOR Trigger When current voltage < 2.59 volts IDCO Capacitor Charge Type Reformation IDCO Capacitor Last Charge Date Time [id number] IDCO Capacitor Charge Time 10.0 s IDCO Capacitor Charge Energy 40 J IDCO Lead Channel Measurements Date and Time Start [id number] IDCO Lead Channel Measurements Date and Time End [id number] IDCO Lead Channel Sensing Intrinsic Amplitude 2.1 mV IDCO Lead Channel Sensing Polarity Bipolar IDCO Lead Channel Pacing Threshold Amplitude 1.0 V IDCO Lead Channel Pacing Threshold Pulse Width 1.0 ms IDCO Lead Channel Pacing Threshold Polarity Bipolar IDCO Lead Channel Pacing Threshold Measurement Method Song Writer Manual IDCO Lead Channel Impedance Value 360 Ohm IDCO Lead Channel Impedance Polarity Bipolar IDCO Lead Channel Status Null IDCO Lead Channel Measurements Date and Time Start [id number] IDCO Lead Channel Measurements Date and Time [...] IDCO Lead Channel Pacing Threshold Measurement Method Song Writer Manual IDCO Lead Channel Impedance Value 830 Ohm IDCO Lead Channel Impedance Polarity Bipolar IDCO Lead Channel Status Null IDCO Lead High Voltage Channel Measurement Type Shock IDCO Lead High Voltage Channel Date Time IDCO Lead High Voltage Channel Impedance 63 Ohm IDCO Lead High Voltage Channel Status Null IDCO Lead High Voltage Channel Measurement Type Low Voltage Pulse IDCO Lead High Voltage Channel Date Time IDCO Lead High Voltage Channel Impedance 63 Ohm IDCO Lead High Voltage Channel Status Null IDCO HEALTH COORDINATOR LV-RV Delay 30 ms IDCO Ventricular chambers paced during HEALTH COORDINATOR pacing. BiV IDCO Magnet Response Normal IDCO [...] Setting Pacing Capture Mode Fixed Pacing IDCO [facility]_IDC_SET_LEAD HVCHNL_SHOCK_VEC TOR_ANODE_LOCATI ON_1 Right Ventricle IDCO [facility]_IDC_SET_LEAD HVCHNL_SHOCK_VEC TOR_ANODE_ELECTR ODE_1 Coil IDCO [facility]_IDC_SET_LEAD HVCHNL_SHOCK_VEC TOR_CATHODE_LOCA TION_1 Other IDCO [facility]_IDC_SET_LEAD HVCHNL_SHOCK_VEC TOR_CATHODE_ELEC TRODE_1 Can IDCO Grabiel Setting [...] Paced 80.0 % IDCO Grabiel Statistic AP PSYCHIATRIC SECRETARY Percent 80.0 % IDCO Grabiel Statistic PSYCHIATRIC SECRETARY Percent 19.0 % IDCO Grabiel Statistic AP [...] {switch es} IDCO Atrial Tachy Statistic AT/AF [place] Percent 0 % IDCO HEALTH COORDINATOR Statistic Date Time End IDCO HEALTH COORDINATOR Statistic Date Time Start IDCO HEALTH COORDINATOR Statistic HEALTH COORDINATOR Percent Paced 99.0 % IDCO Therapy Statistic Recent Date Time End IDCO Therapy Statistic Recent Date Time Start IDCO Therapy Statistic Recent Shocks Delivered 0 {shocks } IDCO Therapy Statistic Recent Shocks Aborted 0 {shocks } IDCO Therapy Statistic Recent ATP Delivered 0 {seq} IDCO Episode Statistic Recent Date Time End [id number] IDCO Episode Statistic Recent Date Time Start [id number] IDCO Anatomical Region Laterality Modality Other 02/09/2021 2:00 AM EST Physician Cardiology MD IMPLANTABLE CARD IAC DEVICE documented in this encounter Visit Diagnoses Not on filedocumented in this encounter Care Teams It Systems Analyst Consultant Relationship Specialty Start Date End Date Carlos Valdez MD [address] [place] [address] PCP - General 03/25/11 08/07/22 documented as of this encounter
--- OUTSIDE RECORDS SUMMARY | 2023-12-11 18:44 | XMS_ITS | Encounter Summary ---
[place] [address] Care Team Providers Care Senior Animal Trainer Name Role Phone Carlos Valdez MD Primary Care Provider [phone] Reason for Visit * Reason Onset Date Comments Prior Authorization 03/19/2020 Results of p eer 2 peer Encounter Details Date Type Department Care Team ([facility] st Contact Info) Description 03/19/2020 Telephone Cardiology at [address] [phone] Brunilda Richardson help desk agent (Results of peer 2 peer) Social History Tobacco Use Types Packs/Day Years [...] Telephone Encounter - Brunilda Richardson RN - 03/19/2020 3:04 PM EST Lauryn from [facility] cardiology returning this data analyst report writer's call who states that he would have to be seen by the collections assistant at [facility] before they will be able to get any testing done. Pt contacted to see what is going on with the chest pain. He notices that he is having intermittent episodes of exertional chest discomf. this is not new but notices an increase in these events over the past few months, since it has gotten cold. Will review with TATIANA Grewal to see what the next steps are. Pt is agreeable with seeing the collections assistant at [facility] before the test as needed. * Telephone Encounter - Brunilda Richardson RN - 03/19/2020 2:12 PM EST Pt contacted with the results of the PA coverage for the Echo. He states his appointments have been changed to [facility]. He was going to let the collections assistant know that he has been experiencing some intermittent chest pain, when he was in for the visit. Call placed to [facility] cardiology, message left requesting they call back to let them know about the PA status and finding out that the pt is having symptoms that may qualify approval for the Echo. Awaiting a call back. * Telephone Encounter - Brunilda Richardson RN - 03/19/2020 2:12 PM EST ----- Message from Xin Grewal APRN sent at 03/18/2020 2:07 PM EST ----- Echo coverage denied. Please let patient know sd documented in this encounter Plan of Treatment Upcoming Encounters Date Type Department Care Team (Late st Contact Info) Description 02/26/2024 10:00 AM EST Hospital Encounter Non[place] [address] Arrived documented as of this encounter Visit Diagnoses Not on filedocumented in this encounter Care Teams Senior Animal Trainer Relationship Specialty Start Date End Date Carlos Valdez MD [address] [place] [address] PCP - General 03/25/11 08/07/22 documented as of this encounter
--- OUTSIDE RECORDS SUMMARY | 2023-12-11 18:44 | XMS_ITS | Encounter Summary ---
Author Organization [facility] [place] [address] Care Team Providers Care Shipping Track Supervisor Name Role Phone Carlos Valdez MD Primary Care Provider Reason for Visit * Reason Comments Medication Refill Encounter Details Date Type Department Care Team (Late st Contact Info) Description 04/24/2020 Refill Cardiology at [address] [phone] Xin Grewal, ENGINEER TECHNICAL STAFF [facility] [place] [address] Medication Refill Social History Tobacco Use Types [...] AM EST Hospital Encounter Non-[place] [address] Arrived documented as of this encounter Visit Diagnoses Diagnosis Dilated cardiomyopathy Other primary cardiomyopathies Chronic systolic heart failure Non-ischemic cardiomyopathy Other primary cardiomyopathies documented in this encounter Care Teams Shipping Track Supervisor Relationship Specialty Start Date End Date Carlos Valdez MD [address] [place] [address] PCP - General 03/25/11 08/07/22 documented as of this encounter
--- OUTSIDE RECORDS SUMMARY | 2023-12-11 18:44 | XMS_ITS | Encounter Summary ---
[place] [address] Care Team Providers Care Parimutuel Ticket Checker Name Role Phone Carlos Valdez MD Primary Care Provider [phone] Encounter Details Date Type Department Care Team (Late st Contact Info) Description 11/05/2019 Orders Only Cardiology at [address] [phone] Social History Tobacco Use Types Packs/Day Years [...] [facility] Encounter Non-[place]vasive [place] [phone] Arrived documented as of this encounter Procedures Procedure Name Priority Date/Time Associated Diagnosis Comments CARDIAC DEVICE CHECK - REMOTE SCHEDULED Routine 11/05/2019 2:00 AM EDT documented in this encounter Results * Cardiac device check - Remote Scheduled (11/05/2019 2:00 AM EDT) [facility] [address] Implantable Pulse Generator Type Cardiac Resynchronization Therapy - Defibrillator [facility] Implantable Pulse Generator Model 3365-40 [facility] Implantable Pulse Generator Serial Number [id number] [facility] Implantable Pulse Generator Food And Drug Inspector [facility] Implantable Pulse Generator Implant Date IDCO Implantable Pulse Generator Implanter N/A [facility]CO Implantable Pulse Generator Implanter Contact Information N/A [facility] Implantable Pulse Generator Implanting Facility N/A IDCO Implantable Lead Special Function Sense and Pace in RA IDCO Implantable Lead Model 5568 IDCO Implantable Lead Serial Number [id number] IDCO Implantable Lead Food And Drug Inspector Medtronic IDCO Implantable Lead Implant Date IDCO Implantable Lead Polarity Type Bipolar Lead IDCO Implantable Lead Location Right Atrium IDCO Implantable Lead Connection Status Connected IDCO Implantable Lead Special Function Pace in LV IDCO Implantable Lead Model 1458Q Quartet(R) IDCO Implantable Lead Serial Number [id number] [employer] Implantable Lead Food And Drug Inspector [facility] Implantable Lead Implant Date IDCO Implantable Lead Polarity Type Quadripolar Lead IDCO Implantable Lead Location Left Ventricle IDCO Implantable Lead Connection Status Connected IDCO Implantable Lead Special Function Defibrillation in RV IDCO Implantable Lead Model 7122Q Durata(R) IDCO Implantable Lead Serial Number [id number] [employer]CO Implantable Lead Food And Drug Inspector [facility] IDCO Implantable Lead Implant Date IDCO Implantable Lead Polarity Type Bipolar Lead IDCO Implantable Lead Location Right Ventricle IDCO Implantable Lead Connection Status Connected IDCO Date Time Interrogation Session [id number] IDCO Type Interrogation Session Remote Scheduled IDCO Re-programmed During Session NO IDCO Date Time Previous Interrogation Session [id number] IDCO Clinician Name N/A IDCO Clinician Contact Information N/A IDCO Clinic Name N/A IDCO Battery Date Time of Measurements [id number] IDCO Battery Status Middle of Service IDCO Battery Voltage 2.92 V IDCO Battery Remaining Longevity 23 mo IDCO Battery Remaining Percentage 44.0 % IDCO Battery STEAM SHOVELMAN Trigger When current voltage < 2.59 volts IDCO Capacitor Charge Type Reformation IDCO Capacitor Last Charge Date Time [id number] IDCO Capacitor Charge Time 9.8 s IDCO Capacitor Charge Energy 40 J IDCO Lead Channel Measurements Date and Time Start [id number] IDCO Lead Channel Measurements Date and Time End [id number] IDCO Lead Channel Sensing Intrinsic Amplitude 1.8 mV IDCO Lead Channel Sensing Polarity Bipolar IDCO Lead Channel Pacing Threshold Amplitude 1.5 V IDCO Lead Channel Pacing Threshold Pulse Width 1.0 ms IDCO Lead Channel Pacing Threshold Polarity Bipolar IDCO Lead Channel Pacing Threshold Measurement Method Roller Inspector And Mender Manual IDCO Lead Channel Impedance Value 380 Ohm IDCO Lead Channel Impedance Polarity Bipolar IDCO Lead Channel Status Null IDCO Lead Channel Measurements Date and Time Start [id number] IDCO Lead Channel Measurements Date and Time End [id number] IDCO Lead Channel Sensing Intrinsic Amplitude 12.0 [...] Lead Channel Measurements Date and Time Start [id number] IDCO Lead Channel Measurements Date and Time End [id number] IDCO Lead Channel Pacing Threshold Amplitude 1.0 V IDCO Lead Channel Pacing Threshold Pulse Width 0.8 ms IDCO Lead Channel Pacing Threshold Polarity Bipolar IDCO Lead Channel Pacing Threshold Measurement Method Roller Inspector And Mender Manual IDCO Lead Channel Impedance Value 800 [...] Lead High Voltage Channel Status Null IDCO CINEMA OPERATOR LV-RV Delay 30 ms IDCO Ventricular chambers paced during CINEMA OPERATOR pacing. BiV IDCO Magnet Response Normal [...] Setting Pacing Capture Mode Fixed Pacing [facility]_LEAD [facility]_SHOCK_VEC TOR_ANODE_LOCATI ON_1 Right Ventricle [facility]_LEAD [facility]_SHOCK_VEC TOR_ANODE_ELECTR ODE_1 Coil [facility]SET_LEAD [facility]_SHOCK_VEC TOR_CATHODE_LOCA TION_1 Other [facility]_LEAD [facility]_SHOCK_VEC TOR_CATHODE_ELEC TRODE_1 Can IDCO [...] Paced 82.0 % IDCO Grabiel Statistic AP RENTAL CLERK TOOL AND EQUIPMENT Percent 83.0 % IDCO Grabiel Statistic RENTAL CLERK TOOL AND EQUIPMENT Percent 17.0 % IDCO Grabiel Statistic AP [...] {switch es} IDCO Atrial Tachy Statistic AT/AF [place] Percent 1 % IDCO CINEMA OPERATOR Statistic Date Time End IDCO CINEMA OPERATOR Statistic Date Time Start IDCO CINEMA OPERATOR Statistic CINEMA OPERATOR Percent Paced 99.0 % IDCO Therapy Statistic Recent Date Time End IDCO Therapy Statistic Recent Date Time Start IDCO Therapy Statistic Recent Shocks Delivered 0 {shocks } IDCO Therapy Statistic Recent Shocks Aborted 0 {shocks } IDCO Therapy Statistic Recent ATP Delivered 0 {seq} IDCO Episode Statistic Recent Date Time End [id number] IDCO Episode Statistic Recent Date Time Start [id number] IDCO Episode Identifier [id number] IDCO Episode Date Time [id number] IDCO Episode Detection And Therapy Details AMS IDCO Episode Duration 48 s IDCO Episode Vendor Type Category AMS IDCO Episode Type Category Other IDCO Episode Identifier [id number] IDCO Episode Date Time [id number] IDCO Episode Detection And Therapy Details AMS IDCO Episode Duration 36 s IDCO Episode Vendor Type Category AMS IDCO Episode Type Category Other IDCO Episode Identifier [id number] IDCO Episode Date Time [id number] IDCO Episode Detection And Therapy Details AMS IDCO Episode Duration 36 s IDCO Episode Vendor Type Category AMS IDCO Episode Type Category Other IDCO Episode Identifier [id number] IDCO Episode Date Time [id number] IDCO Episode Detection And Therapy Details AMS IDCO Episode Duration 34 s IDCO Episode Vendor Type Category AMS IDCO Episode Type Category Other IDCO Episode Identifier [id number] IDCO Episode Date Time [id number] IDCO Episode Detection And Therapy Details AMS IDCO Episode Duration 6,526 s IDCO Episode Vendor Type Category AMS IDCO Episode Type Category Other IDCO Episode Identifier [id number] IDCO Episode Date Time [id number] IDCO Episode Detection And Therapy Details AMS IDCO Episode Duration 8 s IDCO Episode Vendor Type Category AMS IDCO Episode Type Category Other IDCO Anatomical Region Laterality Modality Other 11/05/2019 2:00 AM EDT Physician Cardiology IMPLANTABLE CARD IAC DEVICE documented in this encounter Visit Diagnoses Not on filedocumented in this encounter Care Teams Parimutuel Ticket Checker Relationship Specialty Start Date End Date Carlos Valdez MD [address] [place] [address] PCP - General 03/25/11 08/07/22 documented as of this encounter
--- OUTSIDE RECORDS SUMMARY | 2023-12-11 18:44 | XMS_ITS | Encounter Summary ---
Author Organization [facility] [place] [address] Care Team Providers Care Personnel Security Specialist Name Role Phone Carlos Valdez MD Primary Care Provider [phone] Encounter Details Date Type Department Care Team (Latest Contact Info) Description 03/16/2021 - 03/16/2021 11:59 PM EST Hospital Encounter Non-[place] [address] Clarice Simms MD [facility] [place] [address] Cardiomyopathy, primary Discharge Disposition: Home Social History [...] Tablet Take 1 tablet by mouth daily. cjgwuif-dlsvggdusdnzk-j affeine (EXCEDRIN MIGRAINE) 250-250-65 mg per tablet [...] AM EST Hospital Encounter Non-[place] [phone] Arrived documented as of this encounter Procedures Procedure Name Priority Date/Time Associated Diagnosis Comments ICD INTERROGATION 3 MONTH Routine 03/17/2021 8:12 AM EST Cardiomyopathy, primary documented in this encounter Results * ICD INTERROGATION 3 MONTH (03/17/2021 8:12 AM EST) Anatomical Region Laterality Modality Other Narrative 03/23/2021 10:36 AM EST Outpatient remote interrogation report: See full report as a linked pdf document Date of transmission: 03/17/2021 Device clinical education specialist: STJ (mixed mfr device) Device type: CRTD Presenting rhythm: ap-bivp AP 81% ENVIRONMENTAL PROGRAMS SPECIALIST 99% Battery: 2.86V, 1 years Episodes: None significant Stable lead trends. Clarice Simms MD 03/23/2021 10:34 AM Clarice Simms MD IMPLANTABLE CARDIAC DEVICE documented in this encounter Visit Diagnoses Diagnosis Cardiomyopathy, primary Other primary cardiomyopathies documented in this encounter Care Teams Personnel Security Specialist Relationship Specialty Start Date End Date Carlos Valdez MD [address] [place] [address] [facility] [address] [place] [address] PCP - General 03/25/11 08/07/22 documented as of this encounter
--- OUTSIDE RECORDS SUMMARY | 2023-12-11 18:45 | XMS_ITS | Encounter Summary ---
[place] [address] Care Team Providers Care Roll Line Operator Name Role Phone Carlos Valdez MD Primary Care Provider [phone] Reason for Referral * Diagnostic Test (Routine) - Closed Specialty Diagnoses / Procedures Referred By Theodora de la torre Referred To Contact Cardiology Diagnoses Cardiomyopathy, unspecified type Procedures Echocardiogram Transthoracic(Leb) Sim Jiménez MD [facility] [place] [address] [facility] [place] [address] Referral ID Status Reason Start Date Expiration Date V isits Requested Visits Authorized [id number] Closed Specialty Service Requested 02/15/2017 02/15/2018 1 1 Reason for Visit * Reason Comments Cardiomyopathy Encounter Details Date Type Department Care Team (Late st Contact Info) Description 02/15/2017 11:00 AM EST Office Visit Cardiology at [address] [id number] Carmela Ugarte MD [facility] [place] [address] Cardiomyopathy, unspecified type; Elevated cholesterol; Congestive heart failure, unspecified congestive heart failure chronicity, unspecified congestive heart failure type; Non-ischemic cardiomyopathy; Biventricular implantable cardioverter-defibril lator in situ- [facility]; Pericarditis, unspecified chronicity, unspecified type; Chronic systolic heart failure; Hypertension, unspecified type Social History Tobacco Use Types [...] Sign Reading Time Taken Comments Blood Pressure 156/86 02/15/2017 9:52 AM EST Pulse 60 02/15/2017 9:52 AM EST Temperature - - Respiratory Rate - - Oxygen Saturation 97% 02/15/2017 9:52 AM EST Inhaled Oxygen Concentration - - Weight 106.1 kg (233 lb 14.4 oz) 02/15/2017 9:52 AM EST Height 198.1 cm (6' 5.99) 02/15/2017 9:52 AM ES T Body Mass Index 27.04 02/15/2017 9:52 AM EST documented in this encounter Progress Notes * Carmela Ugarte MD - 02/15/2017 11:00 AM EST Images from the original note were not included. [facility] [place] [id number] CARDIOMYOPATHY/HEART FAILURE SERVICE OUTPATIENT CLINIC NOTE Jatinder Morrell 02/15/2017 Primary Care Provider: Carlos Valdez MD Referring Provider: Carlos Valdez CHIEF COMPLAINT: Chief Complaint Patient presents with ??? Cardiomyopathy HISTORY OF PRESENT ILLNESS: Jatinder Morrell is a 71 y.o. patient with history of pericarditis, complete heart block, nonobstructive coronary artery disease, cardiomyopathy (recovered LV function) seen in routine follow up in the [facility]. Interim Events: This gentleman tells me that he was admitted to [facility] with abdominal pain and he was found to have? Intestinal obstruction and was treated conservatively with NG tube subsequentlyhad pneumonia which was appropriately treated. He tells me that he is still getting chest pain across his chest, right and left shoulders. This chest pain is going on since his pacemaker placement. It is mild intensity (4 out of 10), does not radiate to his neck and is not associated with exertion.It can last from minutes to days. He takes ibuprofen and it gives him some partial relief. We discussed the option of taking colchicine when he gets chest discomfort to see if it will respond to colch icine. From history it does not sound like angina because it is nonexertional and it has atypical character and is going on for long time. He is active and he walks couple miles couple times a week and he also walks his dog. He denies any ankle swelling any weight gain any syncopes, palpitations. He is compliant with his medication. He takes Coreg 6.25 p.o. twice daily, losartan 50, pravastatin 10 mg daily. He also takes Excedrin when he needs it. His weight is 106 kg today similar to his priorclinical visit. His last echocardiogram was done in June of this year with LV function of 65% withno wall motion abnormalities. He had cardiac catheterization done in 2001 with normal coronary arteries. He had repeat cardiac catheterization done in 2012 and [place] showing 25% LAD stenosis, 30-40% RCA stenosis. This was done at the time of his presentation with heart block and he ended up getting a pacemaker at that point. From his 07/11/16 visit: The patient has been stable from a cardiac standpoint with no acute decompensated heart failure, syncope, or ICD discharges. He is able to walk 2 miles per day, walking his dog, without any dyspnea or dyspnea on exertion and he denies any PND, orthopnea, or lower extremity edema. Blood pressures have usually been stable at home, but slightly elevated today. His major complaint has been generalized fatigue, with lack of energy in the afternoon although this is slightly better at the lower dose of carvedilol. He has not had any other device issues. He claims compliance with his medications. Routine evaluation for a.l. amyloidosis was negative. Repeat echocardiography as noted below demonstrates well-preserved cardiac function with mild concentric LVH. Other review systems are negative. Last visit with Dr Glass; ?? Interval events: There is a phone call note from Dr. Ugarte in July where the patient had some pleuritic chest discomfort and fever felt to be a viral illness. ?? Today, the patient reports he is overall stable from the cardiovascular perspective. His major complaint continues to be fatigue. He thinks it is getting worse and attributes it to the carvedilol. Otherwise he feels good. No SOB. Mild CORNEJO. No orthopnea or PND or lower extremity edema. No chest pain. No palpitations or syncope. He is compliant with medications. ?? From his 08/07/14 visit: The patient has continued to do well from a cardiovascular standpoint with no decompensated heart failure, syncope, or ICD discharges. He still exercises and walks but denies any dyspnea or dyspnea on exertion, PND, orthopnea, or lower extremity edema. His major concern has been generalized fatigue which has gradually worsened over the last year. He has better episodes of chest pain, occasionally takes an NSAID. In general, chest pain has been very stable. His most recent echocardiogram demonstrated improvement of his LVEF with medical and device therapy. He questions whether he needs to remain on his cardiac protective medications. He recently vacationed in [place] and had no major clinical events. He is currently off Coumadin after he presented with a PE with prolonged driving in the past. From his last 02/03/14 visit. Mr Morrell has been stable from a cardiac standpoint feeling well withno major complaints. He does have occasional chest pain which appears to be musculoskeletal often relieved with taking nonsteroidal anti-inflammatory agents and resolving spontaneously. This is not associated with exertion and there may be some positional pleuritic components. This may occur once every 3-4 weeks but are not lifestyle limiting. He remains quite active walking his 2 miles a day with his dog. He denies any dyspnea on exertion, PND, orthopnea, or lower extremity edema. He has not had any device issues. His lifestyle has returned back to normal although he has been cutting back onhis producing with less travel that is work-related. He has not needed to take additional diuretic therapy. Other review of systems are negative. From his 07/11/13 visit with Xin Grewal: Last visit: 04/02 Feeling well post YARD COORDINATOR. Remains active and busy. Has occ fatigue, but improved since last year. Took recent camping trip over 5 weeks with dog. Drove 5000 miles. Had a great time and felt well. Reports occ respirophasic CP and flushing - similar to prior pericarditis symptoms. Resolves with 400 mg ibuprofen. Only using about 1/month. Symptoms definitely less frequent than in the past. No device issues. Sleeping well. Appetite is good. Has not required bumex recently. Weight is up a bit, but due to decreased winter activity. From his 12/26/12 visit: He has felt significantly better this last month. Because of malaise and abdominal discomfort noted after taking his meds, he self discontinued the colchicine and since then, those symptoms have now resolved. He has improved exercise tolerance, no significant dyspnea or dyspnea on exertion, PND, orthopnea or LE edema. He has improved exercise tolerance, and only rare chestdiscomfort. He was evaluated by EP and has been scheduled for elective YARD COORDINATOR- D upgrade with EF ~ 35 %and now 100% Vpaced rhythm with CHB/pacer dependence. No thromboembolic or bleeding events. From his visit: He continues to do well overall, with more good than bad days, but still noting occasional chest discomfort and malaise that resolves spontaneously. He has returned to his usual activities able to walk 2 miles per day without exercise intolerance or dyspnea on exertion. He has had rare palpitations but no sustained tachyarrhythmias or syncope or near syncope. He has not had any device issues and repeat echo as noted below still demonstrates LV dysfunction on medical therapy but a V paced rhythm. He had a prior known LBBB and now is close to meeting criteria for resynchronization therapy and ICD. From his 10/14/12 visit: The patient has had significant improvement in his clinical status with improvement of his dyspnea and dyspnea on exertion, exercise tolerance, fatigue, and chest pain. Over the last month, 3-4 weeks have been excellent with no symptoms. He did have the last week of intermittent brief left shoulder discomfort that has quickly resolved in a few minutes. Overall, he has beenhappy with his lifestyle he feels that he is back to his usual status. He did decrease his colchicine to one tablet daily and his diarrhea has since resolved. He is able to walk 2 miles per day and walk up a steep hill/incline without having to stop because of chest pain or shortness of breath. He has not had any thromboembolic or bleeding events on Coumadin and INR is therapeutic. He denies any pleuritic chest pain, lower extremity edema, or syncope although he has had occasional skipped heartbeats without sustained tachyarrhythmias. From his initial visit after DDD pacer implant: The patient was traveling on vacation and apparently cut his finger and reported to a local emergency room in [place]. He was told that he had a low heart rate in may need a pacemaker but he declined any further evaluation as he was asymptomatic. 2 weeks later, while [place], the patient felt weak, tired, with dizziness and reported to the local police department who then called for an ambulance to take him to the local hospital. He was noted to be in complete heart block with bradycardia and heart rates in the 25-30 be permitted range. Whilein the ICU, he apparently had cardiac arrest, details unknown, but he did recall he required defibrillation. He was sent urgently to the cardiac catheterization laboratory where he was noted to have nonobstructive coronary artery disease and a temporary wire was placed. An echocardiogram demonstrated an estimated ejection fraction of 50-55% and he subsequently underwent a permanent DDD-R. pacemaker without incident or postprocedural complications. A followup chest x-ray showed no evidence of pne umothorax. I do not have EKGs available for my review. Since returning to [facility], thepatient actually feels well with no major complaints. In retrospect, he had no symptoms during the holidays, or winter and was able to do his usual activities without any limitation. Specifically, hedenied any palpitations, syncope, lower extremity edema, or dyspnea on exertion. He had been takinghis medications religiously and had not had any lightheaded or near syncopal episodes prior to this. There were no new medications or [id number] therapy initiated during this timeframe. On discharge, the patient was started on amlodipine presumably for labile hypertension. He currently feels well with no major clinical complaints although he does have some tenderness at the pacer site. He was evaluated by EP cardiology today-see their separate note for device interrogation details. Other review of systems are negative. PAST MEDICAL HISTORY: Reviewed and updated as appropriate in the medical record. Patient Active Problem List Diagnosis Code ??? Non-ischemic cardiomyopathy I42.8 ??? Heart failure chronic systolic dysfunction I50.9 ??? Alcohol use Z78.9 ??? LBBB (left bundle branch block) I44.7 ??? Complete heart block I44.2 ??? HX SUDDEN CARDIAC ARREST ??? Pericarditis I31.9 ??? Pulmonary embolism I26.99 ??? 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 R07.9 ??? Biventricular implantable cardioverter-defibrillator in situ- [facility] Z95.810 ??? ICD (implantable cardioverter-defibrillator) malfunction - [facility] T82.118A ??? Hypertension I10 Patient Active Problem List Diagnosis ??? Biventricular implantable cardioverter-defibrillator in situ- [facility] 02/19/2013 Cardiac Resynchronization Therapy ICD Upgrade (explant of pacemaker pulse generator), peripheral Subclavian Venography, Cinefluoroscopy, pacemaker pocket revision and defibrillation safety margin testing, under General anesthesia Indication: Cardiomopathy with congestive heart failure and ventricular dyssynchrony, ventricular pacing New Ventricular electrode: [employer] Model# 7122Q-58 cm Serial #[id number] Implanted 02/18/2013 Bipolar, steroid-tipped, active-fixation DF-4 lead Access: Axillary vein Location: Right ventricular apical septum (old) Atrial electrode: Medtronic, Model # 5568-52 cm Serial # [id number] Implanted 06/14/2012 Bipolar, steroid-tipped, active-fixation IS-1 lead Access: Not known Location Right atrium anterolateral Coronary sinus electrode: [facility] [employer] 1458Q/86 Serial number [id number] Implanted 02/18/2013 Quadripolar passive active fixation lead Access: Subclavian vein Location: Coronary sinus, posterolateral vein Pulse generator: [employer] [id number] Serial number [id number] Implanted 02/18/2013 YARD COORDINATOR ICD Location: Subcutaneous Old ventricular lead : Medtronic 5075 Serial number [id number] (capped 02/18/2013) Old pulse generator: Medtronic [id number] Serial number [id number] (removed 02/18/2013) Detection and termination of ventricular tachyarrhythmias was performed with the ICD set to minimalsensitivity A T-Wave shock (4 S1 at 400 ms with a 310 ms delay and 1.2 Joule biphasic waveform) induced ventricular fibrillation that was successfully terminated with a 20 Joule shock (impedance 68 ohms). Generator change 03/25/16: New Pulse Generator [employer] [id number] Serial number [id number] Implanted 03/25/2016 YARD COORDINATOR ICD Location: Subcutaneous ??? Non-ischemic cardiomyopathy Dilated [...] =59% No effusion Echo 07/11/16 EF =65% d. Sinus rhythm with left bundle branch block, PVCs, QRS tlcvwazw=726 msec. Symptomatic CHB 06/13/12- s/p DDDR pacemaker 100% V paced rhythm SPEP/Free Light Chains- Results for JATINDER MORRELL Charo ( ) as of 07/10/2016 19:35 Ref. Range 10/19/2015 14:06 10/19/2015 14:07 [place] Free Light Chains Latest Ref Range: 0.33 [...] Carvedilol ROSY/ARB Yes Losartan Spironolactone no Previously [id number], d/c secondary to side effects (hives), no rechallenge Amlodipine Yes Initiated 05/30 [place] AFIB? no Anticoagulated AICD/Type YARD COORDINATOR-D LBBB, EF dropped to 35%- 04/02/13 back up at ~ 50% post YARD COORDINATOR--> EF=65% NSR with LBBB, QRS= 170 ms [...] pacer and prolonged driving from [place] to [place] Abnormal CT pulmonary angiogram 08/01/12 Lovenox bridge -->coumadin initiated 08/01/12 ??? LBBB (left bundle branch block) XGI=008 ms New Symptomatic CHB 05/30-->declined pacer at initial presentation while traveling -S/p temp pacer-->Permanent DDDR pacer -LVEF~ 50-55%, ICD not indicated, but at risk for V paced rhythm dyssynchrony ??? Complete heart block Symptomatic bradycardia with CHB and LBBB, HR in the 20-30s Initially seen at a local ER, pacemaker recommended, but declined While in ICU, [place], called [facility] in cath report, but likely symptomatic bradycardia and CHB CHB- s/p temporary pacer 06/13/2012 - cath: Angiogram, mild irregularities of LAD, LCXF dominant, 30-40% mid RCA - No LV gram done S/p DDD-R Pacemaker Medtronic Adapta Dual Chamber Model # ADDR01, Serial number [id number] -[place], [place] ??? Pericarditis New chest discomfort ~ 2 weeks post DDD pacer implant Elevated C reactive protein; pericardial effusion->improved with NSAID and colchicine. Should be on colchicine until Nov 18, 2012 Elevated ProBNP, some clinical response with diuretics Stress Echo, LVEF=44%, no change, no definite ischemia, poor exercise tolerance, no pericardial effusion noted on stress Trivial pleural effusion on chest x-ray Elevated UYE=779 a-->3.8 AN ESR=53 on index presentation --> [...] The patient reports thathe quit smoking about 21 years ago. His smoking use included Cigarettes. He has never used smokeless tobacco. He reports that he drinks about 0.5 oz of alcohol per week He reports that he does not use illicit drugs. FAMILY HISTORY: Reviewed and updated as appropriate in the medical record. No family history on file. No significant CV disease. ALLERGIES: Reviewed and updated as appropriate in the medical record. Allergies Allergen Reactions ??? Lasix [Furosemide] Rash MEDICATIONS: Outpatient Prescriptions Marked as Taking for the 02/15/17 encounter (Office Visit) with Patricia Ugarte MD Medication Sig Dispense Refill ??? losartan (COZAAR) 50 mg Tablet Take 1.5 tablets by mouth daily. 30 tablet 11 ??? carvedilol (COREG) 6.25 mg Tablet Take 1 tablet by mouth 2 times daily (with meals). 180 tablet3 ??? multivitamin (THERAGRAN) Tablet Take 1 tablet by mouth daily. ??? [DISCONTINUED] losartan (COZAAR) 50 mg Tablet take 1 tablet by mouth once daily 30 tablet 11 ??? pravastatin (PRAVACHOL) 10 mg Tablet Take 10 mg by mouth daily. ??? zolpidem (AMBIEN) 10 mg tablet Take 1 tablet by mouth nightly. 30 tablet 0 REVIEW OF SYSTEMS: Review of Systems Pertinent Negatives or Positives General Denies Fever, chills, night sweats. Weight stable. Sleep habits usually good. Eyes No visual loss, double vision, drainage, eye pain, dry eyes, or other sxs reported. ENT No sore throat, dry mouth, eptistaxis or other sxs reported. Cardiac Rare intermittent chest pain as noted above. h He denies tachyarrhythmias or prolonged palpitations, No CORNEJO, no recurrence of Orthopnea, PND, LE edema. Pulmonary Overall improvement of shortness of breath, denies productive or not but the cough, hemoptysis, or other sxs reported. Heme/Lymph No swollen glands, fever, bleeding, or other sxs reported. GI Somewhat decrease in appetite, otherwise without abdominal pain, change in bowel habits, melena,nausea, vomiting, diarrhea or other sx reported. No urethral discharge, dysuria, frequency, nocturia, or other sxs reported. Endocrine No hot spells, cold spells, or other sxs reported. Musculoskeletal No limb pain, joint pain, joint swelling, or other symptoms reported. Neuro No TIAs, CVA, or dizziness, vertigo Skin No rashes, dry skin, or other sxs reported. Patient-reported scores from the Heart Failure Survey are: myD-H Heart Failure 12/25/2012 PROMIS 10- Physical Health Score 50.8 PROMIS 10- Mental Health Score 59 KCCQ - Total Symptom Score 100 KCCQ - Quality of Life 83.33 KCCQ - Social Limitation 100 KCCQ - Physical Limitation 100 KCCQ - Overall Summary Score 95.83 PHYSICAL EXAMINATION: Vital Signs: Wt Readings from Last 3 Encounters: 02/15/17 (!) 106.1 kg (233 lb 14.4 oz) 02/15/17 (!) 106.1 kg (233 lb 14.4 oz) 07/11/16 (!) 106.6 kg (235 lb 1.6 oz) Temp Readings from Last 3 Encounters: 03/25/16 36.3 ??C (97.3 ??F) (Temporal) 02/19/13 36.8 ??C (98.2 ??F) (Oral) 02/11/13 35.6 ??C (96 ??F) (Temporal) BP Readings from Last 3 Encounters: 02/15/17 156/86 02/15/17 156/86 07/11/16 150/90 Pulse Readings from Last 3 Encounters: 02/15/17 60 02/15/17 60 07/11/16 62 SpO2: [97 %] General -Alert, oriented, NAD. Affect good spirits, appropriate, answers questions appropriately. Well-developed male HEENT -unremarkable, no xanthelasma, arcus, icterus. PERRLA, moist mucous membranes. Dentition good. Neck -without lymphadenopathy, mass, thyromegaly Carotid upstrokes are brisk Chest -site well healed, no Tenderness , no ecchymoses Lungs -clear without rales or rhonchi, no pleuritic rub Cardiac -Regular with normal S1, normally split S2, 1/6 systolic crescendo decrescendo murmur, no S3 or S4 gallop is noted. PMI not displaced. No RV lift. JVP~ less than 6-7 cm H20, without AJR. No pericardial friction rub noted on deep exhalation, leaning forward maneuvers Abdomen -soft, non-tender, no significant organomegaly, masses or bruits Extremities -without pretibial or ankle edema, warm to feet. Pulses 1-2+ Neuro -intact CN, motor LAB STUDIES: Recent Results (from the past 72 hour(s)) Comprehensive metabolic panel (non-fasting) Result Value Ref Range Glucose Lvl 68 65 - 199 mg/dL BUN 20 10 - 20 mg/dL Creatinine 1.06 0.80 - 1.50 mg/dL Sodium 143 135 - 145 mmol/L Potassium 4.8 3.5 - 5.0 mmol/L Chloride 103 98 - 107 mmol/L CO2 28 22 - 31 mmol/L Anion Gap 12 5 - 15 mmol/L Calcium 9.4 8.5 - 10.5 mg/dL Total Protein 6.5 6.1 - 8.0 gm/dL Albumin 3.8 3.2 - 5.2 gm/dL AST 15 0 - 39 unit/L ALT 14 0 - 55 unit/L Alk Phos 53 40 - 120 unit/L Total Bilirubin 1.1 0.2 - 1.3 mg/dL Estimated GFR >60 >=60 Lipid Panel Result Value Ref Range Chol, Total 167 <=239 mg/dL Triglycerides 241 (H) <=199 mg/dL HDL 42 >=40 mg/dL LDL Cholesterol 77 <=190 mg/dL Chol/HDL Ratio 4.0 ratio Lipid Interpretation See Note pro-Brain Natriuretic Peptide Result Value Ref Range ProBNP 138 (H) <=125 pg/mL Hemogram Result Value Ref Range WBC 9.3 4.0 - 9.5 x10(3)/mcL RBC 5.36 4.58 - 5.54 x10(6)/mcL Hemoglobin 16.2 13.7 - 16.5 gm/dL Hematocrit 46.6 40.5 - 48.5 % MCV 86.9 82.9 - 93.1 fL MCH 30.2 27.5 - 32.1 pg MCHC 34.8 32.0 - 35.7 gm/dL Platelets 181 145 - 357 x10(3)/mcL RDWSD 39.5 36.0 - 45.0 fL RDWCV 12.5 11.4 - 13.8 % MPV 10.3 7.6 - 12.9 fL nRBC % Auto 0.0 % nRBC Abs Auto 0.000 0.000 - 0.000 x10(3)/mcL Differential, Automated Result Value Ref Range Neutrophils % 66.2 % Neutr Abs (ANC) 6.17 (H) 1.70 - 6.10 x10(3)/mcL Lymphocytes % 21.1 % Lymphocytes Abs 2.0 0.9 - 3.2 x10(3)/mcL Monocytes % 9.8 % Monocyte Abs 0.9 0.3 - 0.9 x10(3)/mcL Eosinophils % 2.1 % Eosinophils Abs 0.2 0.0 - 0.4 x10(3)/mcL Basophils % 0.5 % Basophils Abs 0.0 0.0 - 0.1 x10(3)/mcL Immature Gran % 0.30 % Elva Gran Abs 0.03 0.00 - 0.04 x10(3)/mcL ProBNP Date Value Ref Range Status 02/15/2017 138 (H) <=125 pg/mL Final 07/11/2016 169 (H) <=125 pg/mL Final 10/19/2015 166 (H) <=125 pg/mL Final CARDIAC STUDIES: Echo 07/04 1. Mild concentric left ventricular hypertrophy is observed. There is normal global left ventricular systolic function. The quantitative left ventricular ejection fraction by biplane Ramirez's method is 65%. There are no left ventricular segmental wall motion abnormalities. 2. The right ventricle is probably normal in size. Right ventricular global systolic function is normal. 3. There is no hemodynamically significant valve disease. 4. The estimated pulmonary artery systolic pressure is 20 mmHg. 5. No significant change from 01/2015. Echo 07/20/12 BP 129/73 SUMMARY: 1. The left ventricle is mildly dilated. Mild concentric left ventricular hypertrophy is observed. Global left ventricular systolic function is moderately reduced. The quantitative left ventricular ejection fraction by 3-D rendering is 34%. There are left ventricular segmental wall motion abnormalities present, as shown in the diagram below. 2. Right ventricular chamber size, wall thickness, and systolic function are within normal limits. 3. There is no hemodynamically significant valve disease. 4. See remainder of report for additional findings. Echo 11/13/12 SUMMARY: 1. The left ventricle is moderately dilated to 6.1 cm. Global left ventricular systolic function is moderately reduced. Ejection fraction is estimated to be 35%. The quantitative left ventricular ejection fraction by biplane Ramirez's method is 36% but there is some difficulties with tracing. There are left ventricular segmental wall motion abnormalities present, as shown in the diagram below. 2. There is mild (1+/4+) mitral regurgitation present. 3. When directly compared to the prior echo dated 08/17/2012, there is no significant change in LV function. From his 04/12/13 SUMMARY: 1. Limited echocardiogram. 2. The pericardium appears normal and there is no evidence of a pericardial effusion. 3. Global left ventricular systolic function is mildly reduced. The quantitative left ventricular ejection fraction by biplane Ramirez's method is 51%. There is diffuse hypokinesis present. 4. The inferior vena cava appears normal in size. 5. See remainder of report for additional findings Echo 02/03/14-images reviewed personally with the patient at the bedside. Formal report pending. LVEF approximately 50-55%, no pericardial effusion Rhythm: Paced rhythm HR BP 156/82 SUMMARY: 1. The left ventricular chamber size is normal. Mild concentric left ventricular hypertrophy is observed. The visually estimated left ventricular ejection fraction is 50-55%. There are no left ventricular segmental wall motion abnormalities. 2. The right ventricle is probably normal in size. Right ventricular global systolic function is normal. A pacemaker wire is visualized in the right ventricle. 3. The left atrium is moderately dilated (38 ml/m2 by volume index). 4. There is no hemodynamically significant valve disease. 5. See remainder of report for additional findings. Echo 02/03/15- images reviewed with the patient at the bedside BP: 141/79 SUMMARY: 1. The left ventricular chamber size is normal. Mild concentric left ventricular hypertrophy is observed. The quantitative left ventricular ejection fraction by biplane Ramirez's method is 59%. There are no left ventricular segmental wall motion abnormalities. 2. The right ventricle is normal in size. Right ventricular global systolic function is normal. The estimated pulmonary artery systolic pressure is 29 mmHg. 3. There is no hemodynamically significant valve disease. 4. See remainder of report for additional findings. Echo 07/11/16 ?? BP: 174/92 ?? SUMMARY: ?? 1. Mild concentric left ventricular hypertrophy is observed. There is normal global left ventricular systolic function. The quantitative left ventricular ejection fraction by biplane Ramirez's method is 65%. There are no left ventricular segmental wall motion abnormalities. 2. The right ventricle is probably normal in size. Right ventricular global systolic function is normal. 3. There is no hemodynamically significant valve disease. 4. The estimated pulmonary artery systolic pressure is 20 mmHg. 5. No significant change from 01/2015. 6. See remainder of report for additional findings Device interrogation-reviewed personally-no delivered therapies, no significant arrhythmias. PROBLEMS: Non-ischemic cardiomyopathy Recovered LVEF and stable on medical therapy Heart failure chronic systolic dysfunction Appears to be well compensated, and euvolemic, with low proBNP, and preserved recovered LVEF post YARD COORDINATOR implant BP is high, patient not willing to increase Carvedilol, but could increase ARB. Previously did not tolerate spironolactone, but now with recovered LVEF Biventricular implantable cardioverter-defibrillator in situ- [facility] No device issues, Cor Isaiah turned on today No therapies, high V paced rhythm percentage Pericarditis Still with ongoing intermittent chest pain, usually not exertional, occurs both briefly (minute or 2 duration) or prolonged. Takes ibuprofen with relief, worse last month, currently stable Discussed colchicine either daily as prevention (previously with diarrhea) or intermittently prn with symptoms surface, pt willing to attempt PRN Hypertension Patient declines uptittration of carvedilol secondary to side effects Will uptitrate Losartan to 75 mg daily ASSESSMENT: Mr. Waggoner remains very stable from cardiovascular point of view. His chest pain are atypical could be due to pericarditis. He has been advised to use ibuprofen or colchicine as needed and see if that will give him any relief. He seems euvolemic. His blood pressure is on the higher side. After discussing with the patient we agreed on increasing losartan to 75 mg daily to better control his blood pressure. Prior visit: He remains clinically stable from a cardiovascular standpoint with overall stable exercise tolerance, and appearing to be well compensated and euvolemic. He is 99% ventricular paced with echocardiography today demonstrating an LVEF of 65% on the lower dose of carvedilol He was noted to have mild concentric LVH and blood pressures have been slightly elevated in clinic, but SPEP and FLC were not suggestive of AL amyloid. With recovered LVEF, he is not a candidate for Entresto and since previouslydid not tolerate spironolactone secondary to a rash, I would defer MRA although he pottentially would be a candidate for eplerenone if his LV function deteriorates. With his generalized fatigue that m ay be carvedilol related side effects, it is reasonable to attempt an empirical change to Toprol. Prior discussion: He continues to do well and has now returned back to usual baseline function with no significant dyspnea and with significant improvement of his chest pain. He did have mild intermittent symptoms this week currently on once daily dosing of colchicine and a decrease dose and his ibuprofen. More, hislaboratories suggest a decrease in his high sensitivity CRP and ESR, as well as a decrease in his proBNP and he appears to be well compensated and euvolemic. I had a lengthy discussion with the patient reviewing his cardiac status, both his acute post pacemaker implant clinical course, as well as his long-term prognosis which in part is related to his drop in LV function, but also pertinent is his clinical improvement and hopefully his LV function will stabilize or improve with his treatment ofhis acute inflammatory process. Ultimately, I hope to wean off the colchicine, as well as weaned off the ibuprofen and Coumadin as we are assuming he does not have a thrombophilia and high risk for clotting. We reviewed the rationale for medical therapy and short-term and long-term plan of care. From prior discussion: The patient has had clinical improvement with the addition of ibuprofen and colchicine for presumed post pacemaker implant pericarditis. With this, he has had significant improvement of both his CRP and ESR and on physical exam, I do not hear any pericardial friction rub. As he has had some diarrhea, we could decrease the colchicine on those days but I would continue it forthe moment as he still has some intermittent chest pain. I would like to have a decrease his NSAIDsto avoid GI side effects and risk for bleeding especially on Coumadin. I a lengthy discussion with the patient reviewing his clinical course and rationale for therapy. I am somewhat concerned about a decrease in ejection fraction on the most recent echocardiogram and if persistent or worsening on medical therapy, he would be a candidate for spironolactone and possible upgrade of his pacemaker to a YARD COORDINATOR-D. This could be related to his ventricular paced rhythm in the setting of underlying cardiomyo huang. He remains on Coumadin for PE which will likely need to be continued for 6 months. I thoroughly reviewed the patient's current clinical status, the pertinent laboratory and recent cardiovascular or imaging studies, and the active management plan. The signs and symptoms to be aware of for more urgent evaluation were discussed and all questions addressed. The patient was counseled to continue cardiovascular care management and self management principles and to notify providers ofany change in clinical status. RECOMMENDATIONS: 1. MEDICATIONS: The patient's medication list was updated and new Rxs given as needed. The medication list was reviewed with the patient, rationale for therapy and potential side effects to be aware of discussed. -Continue carvedilol 6.25 mg twice daily. -Otherwise, no Changes in cardiac medications. 2. The following labs, referrals or other testing advised: - echocardiogram-done 07/04 - Device interrogation today - Routine laboratories- on ARB - Consider bone scan to rule out ATTR Amyloid in the future- discussed with patient 3. COUNSELING: Specific issues or questions addressed on this visit: - As above - I cautioned him to limit his alcohol use - Reviewed his laboratories, and recent clinical course and echo images/findings, device interrogation findings 4. Cardiology follow-up scheduled for: - 6 Months or earlier as clinically indicated, Coordinate with EP cardiology and device interrogation - PCP and other subspecialists as previously arranged Sim Jiménez MD Political Worker CARDIOLOGY ATTENDING NOTE I was the assigned attending electric fork operator for this manager office clinical encounter. For the purposes of billing, I was directly involved in the clinical decision making and the plan of care is reasonable. Please see the above note by Dr. Jiménez for details. I have interviewed and examined the patient and have reviewed the pertinent clinical findings, laboratory and/or imaging studies and I concur with the assessment and plan as outlined. The patient has been stable from a cardiac standpoint with no acute decompensated heart failure, palpitations, syncope, or device therapies. However, he still notesintermittent chest discomfort which he has noted ever since his initial pacemaker implant, [place] heart [place] and with the diagnosis of pericarditis. The symptoms were worse a month ago, for which he takes ibuprofen with relief. This month he hasbeen feeling better. Symptoms are often brief, or can be prolonged, with no association with exertion dyspnea, diaphoresis, or nausea with these symptoms. His previous cardiac catheterizations demonstrated no significant coronary disease. He still remains quite active. He notes no change in exercise tolerance. Physical Exam: VS as noted in the eDH flow sheets In general, the patient is in NAD. Lungs- Clear without rales or rhonchi Chest- device without induration, tenderness, erosion Cardiac- Regular, with normal S1 and S2. No S3 or S4 gallop. No systolic or diastolic murmur. JVP ~6-7 with no pericardial friction rub. AJR. Abdomen- Soft, non-tender without organomegaly or masses Extremities- + bilaterally Studies- Recent Echo reviewed. Device interrogation reviewed personally. No device issues, no arrhythmia or device therapies. 99% V paced rhythm, IMPRESSION: The patient has been stable from a cardiovascular standpoint with recovered LVEF and no clinical heart failure. His major complaint has been recurrence of his chest pain that sounds atypical for angina, but could well likely represent his intermittent inflammation and pericarditis from his previouspacemaker implant. He has noticed some improvement with NSAID using it sporadically and not a prolonged duration. I also discussed the possibility of using colchicine on an as-needed basis although he voices some hesitance because of his GI side effects that he experienced in the past. However, low-dose as needed may be a reasonable alternative. Otherwise, his prognosis is good. We discussed the rationale for medical therapy as well as the signs and symptoms to be aware for more urgent evaluation. Carmela Ugarte MD, [facility] pot washer Cardiology Director, Cardiovascular Critical Care Nutrition Helper, Advanced Heart Failure and Cardiomyopathy Program [facility] documented in this encounter Miscellaneous Notes * Assessment & Plan Note - Carmela Ugarte MD - 02/15/2017 11:56 AM ESTAssociated Problem(s): Hypertension Patient declines uptittration of carvedilol secondary to side effects Will uptitrate Losartan to 75 mg daily * Assessment & Plan Note - Carmela Ugarte MD - 02/15/2017 11:52 AM ESTAssociated Problem(s): Pericarditis Still with ongoing intermittent chest pain, usually not exertional, occurs both briefly (minute or 2 duration) or prolonged. Takes ibuprofen with relief, worse last month, currently stable Discussed colchicine either daily as prevention (previously with diarrhea) or intermittently prn with symptoms surface, pt willing to attempt PRN * Assessment & Plan Note - Carmela Ugarte MD - 02/15/2017 11:49 AM ESTAssociated Problem(s): Biventricular implantable cardioverter-defibrillator in situ- [facility] No device issues, Cor Isaiah turned on today No therapies, high V paced rhythm percentage * Assessment & Plan Note - Carmela Ugarte MD - 02/15/2017 11:37 AM ESTAssociated Problem(s): Heart failure chronic systolic dysfunction Appears to be well compensated, and euvolemic, with low proBNP, and preserved recovered LVEF post YARD COORDINATOR implant BP is high, patient not willing to increase Carvedilol, but could increase ARB. Previously did not tolerate spironolactone, but now with recovered LVEF * Assessment & Plan Note - Carmela Ugarte MD - 02/15/2017 11:36 AM ESTAssociated Problem(s): Non-ischemic cardiomyopathy Recovered LVEF and stable on medical therapy documented in this encounter Plan of Treatment Upcoming Encounters Date Type Department Care Team (Late st Contact Info) Description 02/26/2024 10:00 AM EST Hospital Encounter Non-In[place] [address] Arrived documented as of this encounter Results * ECHO COMPLETE W CONTRAST (09/13/2017 10:06 AM EDT) EF 57 HEARTLAB SYSTEM Anatomical Region Laterality Modality Other 09/13/2017 Narrative 09/13/2017 10:27 AM EDT Procedure: ?Transthoracic Echocardiogram Patient: ?PORSHCE Mancilla ? (Age): 1945(72y) Med Rec#: ? [id number] ?Sex: ?M ? [place] Loc: ? [facility] [place]Ht / Wt: ??198(cm)/106(kg) Pt. Loc: ?Echo Lab ?BSA: ?2.41 Study Date: ?? 09/13/2017 ?Pt. Type: Outpatient Tape: ? Referring: CARMELA UGARTE T Reading: Jose Rosen ([id number]) [employer] Hand: Carlos Sandoval [facility] Diagnosis: *Cardiomyopathy, unspecified (I42.9) BP: ? 167/90 SUMMARY: 1. The left ventricular chamber size is normal. ??Mild concentric left ventricular hypertrophy is observed. ??There is normal global left ventricular systolic function. ??The quantitative left ventricular ejection fraction by biplane Ramirez's method is 57%. 2. Right ventricular chamber size, wall thickness, and systolic function are within normal limits. 3. See remainder of report for additional findings. 4. When compared to previous study dated 07/11/2016: no significant change. ?? Findings ? : Study Quality: ? Technically limited Left Ventricle: ? The left ventricular chamber size is normal. ?Mild concentric left ventricular hypertrophy is observed. ?There is normal global left ventricular systolic function. ?The quantitative left ventricular ejection fraction by biplane Ramirez's method is 57%. ?There are left ventricular segmental wall motion abnormalities present, as shown in the diagram below. ?Doppler assessment is consistent with normal left sided filling pressure. ?The ??basal inferior, and ??mid inferior wall segments are hypokinetic (score 2). ?Overall wallmotion score index is ??1.13 Left Atrium: ? The left atrium is moderately dilated.45 ml/m2 Right Ventricle: ? Right ventricular chamber size, wall thickness, and systolic function are within normal limits. ?A pacemaker wire is visualized in the right ventricle. ?The estimated pulmonary artery systolic pressure is 27 mmHg. ?The estimated right atrial pressure is 3 mmHg. Right Atrium: ? The right atrium is mildly dilated. ?A pacemaker wire is visualized in the right atrium. Aortic Valve: ? The aortic valve is not well visualized. ?There is no evidence of aortic valve thickening. ?There is aortic annular calcification. ?There is no evidence of aortic valve stenosis. ?There is no evidence of aortic regurgitation. Mitral Valve: ? The mitral valve appears normal in structure and function. ?There is no evidence of mitral valve leaflet prolapse. ?There is posterior mitral annular calcification. ?There is trace mitral regurgitation present. Tricuspid Valve: ? The tricuspid valve is not well visualized. ?There is mild (1+/4+) tricuspid regurgitation present. Pulmonic Valve: ? The pulmonic valve is not well visualized. ?There is no evidence of pulmonic regurgitation. Pericardium: ? The pericardium appears normal and there is no evidence of a pericardial effusion. Aorta: ? There is mild dilatation of the aortic root.4.0 cm ?The ascending aorta was not well visualized. Pulmonary Artery: ? The main pulmonary artery appears normal. Venous: ? The inferior vena cava appears normal in size. ?There is a greater than 50% respiratory change in the inferior vena cava dimension. Misc: ? Technically difficult study. ?See remainder of report for additional findings. ?Two-dimensional echo, spectral Doppler and color Doppler performed. ?Optison contrast (one 3 ml vial) was used to enhance endocardial definition. Excess contrast was discarded. Chambers 2D ?Value ?Units (Range) ? IVSd (2D) ? 1.3 ?cm ? LVPWd (2D) ?1.3 ?cm ? IVS:LVPW ratio (2D) 1 ?ratio ? RWT (2D) ?0.5 ?ratio ? RWT PW (2D) ? 0.5 ?ratio ? LVIDd (2D) ?4.9 ?cm ? LVIDs (2D) ?4.6 ?cm ? LVIDd (2D) index ?2 ?cm/m2 ? LVIDs (2D) index ?1.9 ?cm/m2 ? LV FS (2D) ?6 ?% ? EF Teichholz (2D) ?? 14 ? % ? Ao root diameter (2D4 ?cm (2.1 - 3.6) ? Volumes/Mass ?Value ?Units (Range) ? LA Area 4 CH ?27 ? cm2 (<21) ? RA AREA 4CH ? 22 ? cm2 ? LA ESV BP (MOD) inde45.2 ? ml/m2 ? LV ESV SP 4CH (MOD) 82.9 ? ml ? LV ESV SP 2CH (MOD) 54.4 ? ml ? LV EDV BP ? 164 ?ml ? LV ESV BP ? 70.4 ? ml ? LV EDV BP index ? 68.1 ? ml/m2 ? LV ESV BP index ? 29.2 ? ml/m2 ? BP EF (MOD) ? 57 ? % ? LV mass (2D) ?244.4 ?g ? LV mass (2D) index ??101.4 ?g/m2 ? Diastolic/Systolic Function ?Value ?Units (Range) ? MV E-wave Vmax ?0.4 ?m/sec ? MV deceleration [id number] ?msec ? MV A-wave Vmax ?0.8 ?m/sec ? MV E:A ratio ?0.5 ?ratio ? LV E:e' septal ratio8.1 ?ratio ? LV E:e' lateral rati7.1 ?ratio ? Tricuspid Valve ?Value ?Units (Range) ? TR Vmax ? 2.4 ?m/sec ? TR peak gradient ?23.8 ? mmHg ? RAP ? 3 ?mmHg ? RVSP ?27 ? mmHg ? Wall Motion: Segment Name ?Rest ? Base-Anteroseptal ?? Normal ? Base-Anterior ? Normal ? Base-Anterolateral ??Normal ? Base-Posterolateral Normal ? Base-Inferior ? Hypokinetic ? Base-Inferoseptal ?? Normal ? Mid-Anteroseptal ?Normal ? Mid-Anterior ?Normal ? Mid-Anterolateral ?? Normal ? Mid-Posterolateral ??Normal ? Mid-Inferior ?Hypokinetic ? Mid-Inferoseptal ?Normal ? [place]-Septal ? Normal ? [place]-Anterior ? Normal ? [place]-Lateral ?Normal ? [place]-Inferior ? Normal ? [place]-Tip ?Normal ? This report has been electronically signed by: Jose Rosen M.D. ? 09/13/2017 10:26:18 Images reviewed and interpretation verified [facility] Procedure Note Jose Rosen MD - 09/13/2017 Procedure: Transthoracic Echocardiogram Patient: PORSCHE ROBERTS(Age): 1945(72y) Med Rec#: [id number] Sex: M [place] Loc[place] [facility] [place] Ht / Wt: 198(cm)/106(kg) Pt. Loc: Echo Lab BSA: 2.41 Study Date: 09/13/2017 Pt. Type: Outpatient Tape: Referring: CARMELA UGARTE T Reading: Jose Rosen ([id number]) [employer] Hand: Carlos Sandoval [facility] Diagnosis: *Cardiomyopathy, unspecified (I42.9) BP: 167/90 SUMMARY: 1. The left ventricular chamber size is normal. Mild concentric left ventricular hypertrophy is observed. There is normal global left ventricular systolic function. The quantitative left ventricular ejection fraction by biplane Ramirez's method is 57%. 2. Right ventricular chamber size, wall thickness, and systolic function are within normal limits. 3. See remainder of report for additional findings. 4. When compared to previous study dated 07/11/2016: no significant change. Findings : Study Quality: Technically limited Left Ventricle: The left ventricular chamber size is normal. Mild concentric left ventricular hypertrophy is observed. There is normal global left ventricular systolic function. The quantitative left ventricular ejection fraction by biplane Ramirez's method is 57%. There are left ventricular segmental wall motion abnormalities present, as shown in the diagram below. Doppler assessment is consistent with normal left sided filling pressure. The basal inferior, and mid inferior wall segments are hypokinetic (score 2). Overall wallmotion score index is 1.13 Left Atrium: The left atrium is moderately dilated.45 ml/m2 Right Ventricle: Right ventricular chamber size, wall thickness, and systolic function are within normal limits. A pacemaker wire is visualized in the right ventricle. The estimated pulmonary artery systolic pressure is 27 mmHg. The estimated right atrial pressure is 3 mmHg. Right Atrium: The right atrium is mildly dilated. A pacemaker wire is visualized in the right atrium. Aortic Valve: The aortic valve is not well visualized. There is no evidence of aortic valve thickening. There is aortic annular calcification. There is no evidence of aortic valve stenosis. There is no evidence of aortic regurgitation. Mitral Valve: The mitral valve appears normal in structure and function. There is no evidence of mitral valve leaflet prolapse. There is posterior mitral annular calcification. There is trace mitral regurgitation present. Tricuspid Valve: The tricuspid valve is not well visualized. There is mild (1+/4+) tricuspid regurgitation present. Pulmonic Valve: The pulmonic valve is not well visualized. There is no evidence of pulmonic regurgitation. Pericardium: The pericardium appears normal and there is no evidence of a pericardial effusion. Aorta: There is mild dilatation of the aortic root.4.0 cm The ascending aorta was not well visualized. Pulmonary Artery: The main pulmonary artery appears normal. Venous: The inferior vena cava appears normal in size. There is a greater than 50% respiratory change in the inferior vena cava dimension. Misc: Technically difficult study. See remainder of report for additional findings. Two-dimensional echo, spectral Doppler and color Doppler performed. Optison contrast (one 3 ml vial) was used to enhance endocardial definition. Excess contrast was discarded. Chambers 2D Value Units (Range) IVSd (2D) 1.3 cm LVPWd (2D) 1.3 cm IVS:LVPW ratio (2D) 1 ratio RWT (2D) 0.5 ratio RWT PW (2D) 0.5 ratio LVIDd (2D) 4.9 cm LVIDs (2D) 4.6 cm LVIDd (2D) index 2 cm/m2 LVIDs (2D) index 1.9 cm/m2 LV FS (2D) 6 % EF Teichholz (2D) 14 % Ao root diameter (2D4 cm (2.1 - 3.6) Volumes/Mass Value Units (Range) LA Area 4 CH 27 cm2 (<21) RA AREA 4CH 22 cm2 LA ESV BP (MOD) inde45.2 ml/m2 LV ESV SP 4CH (MOD) 82.9 ml LV ESV SP 2CH (MOD) 54.4 ml LV EDV BP 164 ml LV ESV BP 70.4 ml LV EDV BP index 68.1 ml/m2 LV ESV BP index 29.2 ml/m2 BP EF (MOD) 57 % LV mass (2D) 244.4 g LV mass (2D) index 101.4 g/m2 Diastolic/Systolic Function Value Units (Range) MV E-wave Vmax 0.4 m/sec MV deceleration [id number] msec MV A-wave Vmax 0.8 m/sec MV E:A ratio 0.5 ratio LV E:e' septal ratio8.1 ratio LV E:e' lateral rati7.1 ratio Tricuspid Valve Value Units (Range) TR Vmax 2.4 m/sec TR peak gradient 23.8 mmHg RAP 3 mmHg RVSP 27 mmHg Wall Motion: Segment Name Rest Base-Anteroseptal Normal Base-Anterior Normal Base-Anterolateral Normal Base-Posterolateral Normal Base-Inferior Hypokinetic Base-Inferoseptal Normal Mid-Anteroseptal Normal Mid-Anterior Normal Mid-Anterolateral Normal Mid-Posterolateral Normal Mid-Inferior Hypokinetic Mid-Inferoseptal Normal [place]-Septal Normal [place]-Anterior Normal [place]-Lateral Normal [place]-Inferior Normal [place]-Tip Normal This report has been electronically signed by: Jose Rosen M.D. 09/13/2017 10:26:18 Images reviewed and interpretation verified [facility] Carmela Ugarte MD ECHO ORDERABLES * (ABNORMAL) pro-Brain Natriuretic Peptide (02/15/2017 9:13 AM EST) NT-proBNP 138(H) <=125 pg/mL [facility] Blood specimen (specimen) 02/15/2017 9:13 AM EST 02/15/2017 9:26 AM EST Narrative Resulting Agency Comment Spec In Lab Carmela Ugarte MD CHEMISTRY ORDERABLES [facility] [place] [address] * (ABNORMAL) Lipid Panel (02/15/2017 9:13 AM EST) Cholesterol, Total 167 <=239 mg/dL [facility] Triglyceride 241(H) <=199 mg/dL [facility] HDL Cholesterol 42 >=40 mg/dL [facility] LDL Cholesterol 77 <=190 mg/dL [facility] Cholesterol/HDL Ratio 4.0 ratio [facility] Lipid Interpretation See Note [facility] Comment: Lipid management should be guided by a patient? s ASCVD risk, goals and preferences. ACC/AHA Guidelines recommend high intensity statin if clinical ASCVD or LDL greater than or equal to 190 mg/dL. http://Disease Diagnostic Groupurl.com/ZWV-QOI-Zniaeuivs Adults aged 40-75 with LDL 70-189 mg/dL should have their 10 year ASCVD risk estimated with the ACC/AHA ASCVD risk science professor http://tools.acc.org/OARPM-Fwdr-Cskuqpbyy/ Statin should be discussed if risk greater [...] critical component of ASCVD risk reduction. Blood specimen (specimen) 02/15/2017 9:13 AM EST 02/15/2017 9:26 AM EST Narrative Resulting Agency Comment Spec In Lab Carmela Ugarte MD CHEMISTRY ORDERABLES [facility] [place] [address] * Comprehensive metabolic panel (non-fasting) (02/15/2017 9:13 AM EST) Glucose 68 65 - 199 mg/dL [facility] Comment:Diabetes: >=200 mg/d L plus symptoms Blood Urea Nitrogen 20 10 - 20 mg/dL [facility] Creatinine 1.06 0.80 - 1.50 mg/dL [facility] Sodium 143 135 - 145 mmol/L [facility] Anion Gap 12 5 - 15 mmol/L [facility] Calcium 9.4 8.5 - 10.5 mg/dL [facility] Protein, Total 6.5 6.1 - 8.0 gm/dL [facility] Albumin 3.8 3.2 - 5.2 gm/dL [facility] Aspartate Aminotransferase 15 0 - 39 unit/L [facility] Alanine Aminotransferase 14 0 - 55 unit/L [facility] Alkaline Phosphatase 53 40 - 120 unit/L [facility] Bilirubin, Total 1.1 0.2 - 1.3 mg/dL [facility] Est Glomerular Filtration Rate >60 >=60 [facility] Comment: The reported eGFR should be multiplied by 1.2 for patients. The MDRD is not an appropriate measure of renal function for patients with body mass extremes or in patients with acute kidney failure. http://iJoule/DHnkdep http://iJoule/DHMCnkf Blood specimen (specimen) 02/15/2017 9:13 AM EST 02/15/2017 9:26 AM EST Narrative Resulting Agency Comment Spec In Lab Carmela Ugarte MD CHEMISTRY ORDERABLES [facility] [place] [address] documented in this encounter Visit Diagnoses Diagnosis Cardiomyopathy, unspecified type Elevated cholesterol Pure hypercholesterolemia Congestive heart failure, unspecified congestive heart failure chronicity, unspecified congestive heart failure type Biventricular implantable cardioverter-defibrillator in situ- [facility] Pericarditis, unspecified chronicity, unspecified type Chronic systolic heart failure Hypertension, unspecified type Cardiomyopathy, unspecified type documented in this encounter Care Teams Roll Line Operator Relationship Specialty Start Date End Date Carlos Valdez MD [address] [place] [address] PCP - General 03/25/11 08/07/22 documented as of this encounter
--- OUTSIDE RECORDS SUMMARY | 2023-12-11 18:45 | XMS_ITS | Encounter Summary ---
Author Organization [facility] [place] [address] Care Team Providers Care Farm Service Consultant Name Role Phone Carlos Valdez MD Primary Care Provider [phone] Encounter Details Date Type Department Care Team (Late st Contact Info) Description 10/05/2018 2:40 PM EDT Office Visit Cardiology at [address] [address] Xin Grewal, HEAT AND FROST INSULATOR [facility] [place] [address] Chronic systolic heart failure; Other cardiomyopathy; Essential hypertension Social History Tobacco [...] Sign Reading Time Taken Comments Blood Pressure 173/93 10/05/2018 2:00 PM EDT Pulse 61 10/05/2018 2:00 PM EDT Temperature - - Respiratory Rate - - Oxygen Saturation 97% 10/05/2018 2:00 PM EDT Inhaled Oxygen Concentration - - Weight 103.9 kg (229 lb) 10/05/2018 2:00 PM EDT Height 198.1 cm (6' 5.99) 10/05/2018 2:00 PM ED T Body Mass Index 26.47 10/05/2018 2:00 PM EDT documented in this encounter Progress Notes * Xin Grewal, HEAT AND FROST INSULATOR - 10/05/2018 2:40 PM EDT Images from the original note were not included. [facility] [address] [place], [place] [address] CARDIOMYOPATHY/HEART FAILURE SERVICE OUTPATIENT CLINIC NOTE Jatinedr Morrell 10/05/2018 Primary Care Provider: Carlos Valdez MD Referring Provider: Carlos Valdez HISTORY OF PRESENT ILLNESS: Jatinder Morrell is a 73 y.o. patient with history of pericarditis following PCM implant in 2012, complete heart block with CRTd upgrade in place, nonobstructive coronary artery disease, cardiomyopathy (recovered LV function) seen in routine follow up in the [facility]. Last seen: 02/2018 He said no interim illnesses or hospitalizations. He continues to remain active walking his new dogand feeling quite well. He continues to report random intermittent chest pressure that is reminiscent of his pericarditis. It is not exertionally related. It often goes away after several minutes on its own. The BPs are high in the office today he reports that on home checks and recent PCP check ithas been in good range. Weight is down a few pounds. He denies syncope or presyncope. There is no orthopnea or PND. He has no edema. He lost his dog who was his pin puller for 10 years soon after her last visit. He got an 8-year-old rescue dog in June and has worked hard to train her. He spent some time in [place] during months season camping and brought the dog with him. I should note that throughout many visits there is reference to concern for ATTR amyloidosis. SPEP and UPEP/FLC were essentially unremarkable with only mildly elevated kappa FLC's. He had mild LVH onecho in the past which raised concern. I believe that Dr. Ugarte had discussed the possibility of doing a bone scan to exclude amyloid. Patient had always declined but in the setting of newly approved medication for ATTR amyloid I felt that I should bring this up with the patient again today. However, I am not sure that we are that suspicious in him. Labs do not suggest. Echo does not suggest LVH. PAST MEDICAL HISTORY: Reviewed and updated as [...] [facility] [employer] Model# 7122Q-58 cm Serial #[id number] Implanted 02/18/2013 Bipolar, steroid-tipped, active-fixation DF-4 lead Access: Axillary vein Location: Right ventricular apical septum (old) Atrial electrode: Medtronic, Model # 5568-52 cm Serial # [id number] Implanted 06/14/2012 Bipolar, steroid-tipped, active-fixation IS-1 lead Access: Not known Location Right atrium anterolateral Coronary sinus electrode: [employer] 1458Q/86 Serial number [id number] Implanted 02/18/2013 Quadripolar passive active fixation lead Access: Subclavian vein Location: Coronary sinus, posterolateral vein Pulse generator: [employer] [id number] Serial number [id number] Implanted 02/18/2013 MATERIALS PLANNER/PRODUCTION PLANNER ICD Location: Subcutaneous Old ventricular lead : Medtronic 5075 Serial number [id number] (capped 02/18/2013) Old pulse generator: Medtronic ADDR01 Serial number [id number] (removed 02/18/2013) Detection and termination of ventricular tachyarrhythmias was performed with the ICD set to minimalsensitivity A T-Wave shock (4 S1 at 400 ms with a 310 ms delay and 1.2 Joule biphasic waveform) induced ventricular fibrillation that was successfully terminated with a 20 Joule shock (impedance 68 ohms). Generator change 03/25/16: New Pulse Generator [employer] [id number] Serial number [id number] Implanted 03/25/2016 MATERIALS PLANNER/PRODUCTION PLANNER ICD Location: Subcutaneous ??? Non-ischemic cardiomyopathy Dilated [...] with left bundle branch block, PVCs, QRS zugoqupk=448 msec. Symptomatic CHB 06/13/12- s/p DDDR pacemaker 100% V paced rhythm SPEP/Free Light Chains- Results for JATINDER MORRELL ( ) as of 07/10/2016 19:35 Ref. Range 10/19/2015 14:06 10/19/2015 14:07 [place] Free Light Chains Latest Ref Range: 0.33 [...] Carvedilol ROSY/ARB Yes Losartan Spironolactone no Previously [id number], d/c secondary to side effects (hives), no rechallenge Amlodipine Yes Initiated 05/30 [place] AFIB? no Anticoagulated AICD/Type MATERIALS PLANNER/PRODUCTION PLANNER-D LBBB, EF dropped to 35%- 04/02/13 back up at ~ 50% post MATERIALS PLANNER/PRODUCTION PLANNER--> EF=65% NSR with LBBB, QRS= 170 ms [...] 08/01/12 ??? LBBB (left bundle branch block) NGP=845 ms New Symptomatic CHB 05/30-->declined pacer at initial presentation while traveling -S/p temp pacer-->Permanent DDDR pacer -LVEF~ 50-55%, ICD not indicated, but at risk for V paced rhythm dyssynchrony ??? Complete heart block Symptomatic bradycardia with CHB and LBBB, HR in the 20-30s Initially seen at a local ER, pacemaker recommended, but declined While in ICU, [place], called [facility] in cath report, but likely symptomatic bradycardia and CHB CHB- s/p temporary pacer 06/13/2012 - cath: Angiogram, mild irregularities of LAD, LCXF dominant, 30-40% mid RCA - No LV gram done S/p DDD-R Pacemaker Medtronic Adapta Dual Chamber Model # ADDR01, Serial number [id number] -[place], [place] ??? Pericarditis New chest discomfort ~ 2 weeks post DDD pacer implant Elevated C reactive protein; pericardial effusion->improved with NSAID and colchicine. Should be on colchicine until Nov 18, 2012 Elevated ProBNP, some clinical response with diuretics Stress Echo, LVEF=44%, no change, no definite ischemia, poor exercise tolerance, no pericardial effusion noted on stress Trivial pleural effusion on chest x-ray Elevated CFH=716 a-->3.8 AN ESR=53 on index presentation --> [...] The patient reports thathe quit smoking about 22 years ago. His smoking use included cigarettes. He has never used smokeless tobacco. He reports that he drinks about 0.5 oz of alcohol per week. He reports that he does not use drugs. FAMILY HISTORY: Reviewed and updated as appropriate in the medical record. No family history on file. No significant CV disease. ALLERGIES: Reviewed and updated as appropriate in the medical record. Allergies Allergen Reactions ??? Lasix [Furosemide] Rash MEDICATIONS: Outpatient Medications Marked as Taking for the 10/05/18 encounter (Office Visit) with Vanessa Grewal APRN [...] Take 10 mg by mouth daily. ??? xbigkzr-rxpgbiyiiszzj-lmysgfxn (EXCEDRIN MIGRAINE) 250-250-65 mg per tablet Take [...] Signs: Wt Readings from Last 3 Encounters: 10/05/18 103.9 kg (229 lb) 10/05/18 103.9 kg (229 lb) 03/16/18 106.5 kg (234 lb 11.2 oz) Temp Readings from Last 3 Encounters: 03/25/16 36.3 ??C (97.3 ??F) (Temporal) 02/19/13 36.8 ??C (98.2 ??F) (Oral) 02/11/13 35.6 ??C (96 ??F) (Temporal) BP Readings from Last 3 Encounters: 10/05/18 (!) 173/93 10/05/18 (!) 173/93 03/16/18 138/80 Pulse Readings from Last 3 Encounters: 10/05/18 61 10/05/18 61 03/16/18 99 SpO2: [97 %] General -Alert, oriented, NAD. Affect good spirits, appropriate, answers questions appropriately. Well-developed male HEENT -unremarkable, no xanthelasma, arcus, icterus. PERRLA, moist mucous membranes. Dentition good. Neck -without lymphadenopathy, mass, thyromegaly Carotid upstrokes are brisk Chest -pacer site well healed, no tenderness , no ecchymoses, no evidence of erosion. Lungs -clear without rales or rhonchi, no pleuritic rub Cardiac -Regular with normal S1, normally split S2, no S3 or S4 gallop is noted. Soft systolic murmur noted PMI not displaced. No RV lift. JVP~ less than 6-7 cm H20, without AJR. Abdomen -soft, non-tender, no significant organomegaly, masses or bruits Extremities -without pretibial or ankle edema, warm to feet. Pulses 1-2+ Neuro -intact CN, motor LAB STUDIES: Chemistry Component Value Date/Time NA 141 10/05/2018 1307 K 4.1 10/05/2018 1307 CL 103 10/05/2018 1307 CO2 30 10/05/2018 1307 BUN 18 10/05/2018 1307 CREATININE 0.90 10/05/2018 1307 Component Value Date/Time CALCIUM 9.6 10/05/2018 1307 ALKPHOS 51 09/13/2017 0900 AST 15 09/13/2017 0900 ALT 15 09/13/2017 0900 BILITOT 0.7 09/13/2017 0900 ProBNP Date Value Ref Range Status 10/05/2018 186 (H) <=125 pg/mL Final 03/16/2018 81 <=125 pg/mL Final 09/13/2017 119 <=125 pg/mL Final CARDIAC STUDIES: Echo 09/2018 [...] hemodynamically significant valve disease. 5. Compared with sutdy dated 08/2017, no significant change is noted. ?? Device interrogation performed today and personally reviewed PROBLEMS: LBBB (left bundle branch block) S/p MATERIALS PLANNER/PRODUCTION PLANNER-D, 99% V Paced ?? H/O Pericarditis Without recurrence ?? Heart failure chronic systolic dysfunction Appears well compensated , euvolemic ?? Non-ischemic cardiomyopathy Stable, recovered LVEF on low dose b-makeda, high dose ARB, and previously intolerant to spironolactone, and MATERIALS PLANNER/PRODUCTION PLANNER 98% V paced rhythm on MATERIALS PLANNER/PRODUCTION PLANNER ?? Biventricular implantable cardioverter-defibrillator in situ- [facility] No device issues, tachycardia, device therapies HTN Suboptimal control today. He reports reasonable control on home checks. Talked about potentially increasing his carvedilol but we recalled that he had had trouble with fatigue on higher dose carvedilol in the past. He will be checking his blood pressures over the next week or so and let us know if it is consistently greater than 1/80. Could consider addition of amlodipine RECOMMENDATIONS: 1. MEDICATIONS: The patient's medication list was updated and new Rxs given as needed. The medication list was reviewed with the patient, rationale for therapy and potential side effects to be aware of discussed. -Continue current medical therapy 2. The following labs, referrals or other testing advised: -None today 3. COUNSELING: Specific issues or questions addressed on this visit: -Ongoing exercise, maintain reasonable weight, limit EtOH 4. Cardiology follow-up scheduled for: -6 months with device check and labs XIN GREWAL APRN documented in this encounter Plan of Treatment Upcoming Encounters Date Type Department Care Team (Late st Contact Info) Description 02/26/2024 10:00 AM EST Hospital Encounter Non-Invasive [place] [address] Arrived documented as of this encounter Results * (ABNORMAL) pro-Brain Natriuretic Peptide (10/05/2018 1:07 PM EDT) NT-proBNP 186(H) <=125 pg/mL [facility] Blood specimen (specimen) 10/05/2018 1:07 PM EDT 10/05/2018 1:11 PM EDT Narrative Resulting Agency Comment Spec In Lab Xin Plummer JodieEagle SONIA CHEMISTRY ORDERABLES [facility] [place] [address] * Basic Metabolic Panel (non-fasting) (10/05/2018 1:07 PM EDT) Glucose 94 65 - 199 mg/dL [facility] Comment:Diabetes: >=200 mg/d L plus symptoms Blood Urea Nitrogen 18 10 - 20 mg/dL [facility] Creatinine 0.90 0.80 - 1.50 mg/dL [facility] Sodium 141 135 - 145 mmol/L [facility] Potassium 4.1 3.5 - 5.0 mmol/L [facility] Comment: Please note: ??Patients with WBC >100,000 may have falsely elevated Potassium levels. ??For accurate Potassium quantification in these patients send serum separator tube (gold top) for subsequent determinations. ??Contact the Clinical Chemistry Laboratory if there are any questions. Chloride 103 98 - 107 mmol/L [facility] Carbon Dioxide 30 22 - 31 mmol/L [facility] Anion Gap 8 5 - 15 mmol/L [facility] Calcium 9.6 8.5 - 10.5 mg/dL [facility] Est Glomerular Filtration Rate 84 >=60 mL/min/1. 73 m?? [facility] Comment: The eGFR was calculated using the CKD-EPI equation. As with all creatinine based estimates of kidney function, eGFR values calculated with the CKD-EPI equation are not accurate in patients with acute kidney failure, extremes of body mass or the acutely ill. http://AltSchool/DHnkf eGFR 98 >=60 mL/min/1. 73 m?? [facility] Comment: The eGFR was calculated using the CKD-EPI equation. As with all creatinine based estimates of kidney function, eGFR values calculated with the CKD-EPI equation are not accurate in patients with acute kidney failure, extremes of body mass or the acutely ill. http://AltSchool/MCnkf Blood specimen (specimen) 10/05/2018 1:07 PM EDT 10/05/2018 1:11 PM EDT Narrative Resulting Agency Comment Spec In Lab Xni Grewal HEAT AND FROST INSULATOR CHEMISTRY ORDERABLES Performing Organization Address City/State/[facility] Co de Phone Number [facility] [place] [address] documented in this encounter Visit Diagnoses Diagnosis Chronic systolic heart failure Other cardiomyopathy Essential hypertension Unspecified essential hypertension documented in this encounter Care Teams Farm Service Consultant Relationship Specialty Start Date End Date Carlos Valdez MD [address] [place] [address] PCP - General 03/25/11 08/07/22 documented as of this encounter
--- OUTSIDE RECORDS SUMMARY | 2023-12-11 18:45 | XMS_ITS | Encounter Summary ---
[place] [address] Care Team Providers Care Assistant Superintendent For Curriculum Name Role Phone Carlos Valdez MD Primary Care Provider [phone] Encounter Details Date Type Department Care Team (Latest Contact Info) Description 09/13/2017 10:00 AM EDT Office Visit Cardiology at [address] [id number] Izzy Holt RN Non-ischemic cardiomyopathy Social History [...] Sign Reading Time Taken Comments Blood Pressure 171/92 09/13/2017 9:59 AM EDT Pulse 59 09/13/2017 9:59 AM EDT Temperature - - Respiratory Rate - - Oxygen Saturation 97% 09/13/2017 9:59 AM EDT Inhaled Oxygen Concentration - - Weight 106.9 kg (235 lb 9.6 oz) 09/13/2017 9:59 AM EDT Height 200.7 cm (6' 7) 09/13/2017 9:59 AM EDT Body Mass Index 26.54 09/13/2017 9:59 AM EDT documented in this encounter Progress Notes * Izzy Holt RN - 09/13/2017 10:00 AM EDT Images from the original note were not included. Clinical Electrophysiology Device Service Note Pacemaker Clinic Follow-Up Jimmie Mccauley is a 72 y.o. male who presents today in the device clinic for OIL PIT ATTENDANT- D programming evaluation, he is seeing Dr Ugarte to follow. He states he gets short of breath on hills, histogram shows he is left shifted rate response turned ON. Hx: He had an elective generator replacement done secondary to a recall 03/25/2016. He originally had a pacemaker implanted 06/14/2012 for CHB. This was completed at [facility] in [place], [place]. He underwent upgrade to OIL PIT ATTENDANT-D on 02/18/2013 for CHF, CM, ventricular dyssynchrony. Call Center Agent: Brady Ugarte MD Final Parameters at Implant: (Old) Ventricular electrode: [employer] Model# 7122Q-58 cm Serial #[id number] Implanted 02/18/2013 (old) Atrial electrode: [employer], Model # 5568-52 cm Serial # [id number] Implanted 06/14/2012 (old) Coronary sinus electrode: [employer] 1458Q/86 Serial number [id number] Implanted 02/18/2013 New Pulse Generator: [employer] [id number] Serial number [id number] Implanted 03/25/2016 Follow Up Today: Settings: Bi-V DDDR 70/130/130, PAV 200 ms, ROSAURA 150 ms, LV->RV 30 ms, mode switch 180 bpm Underlying rhythm: Sinus rate -51 bpm with CHB Heart rate histograms: Left shifted Atrial lead impedance: 350 ohms RV lead impedance: 390 ohms LV lead impedance: 900 ohms M3-M2 RV shock impedance 71 ohms RV to Can Lead impedance trends stable P wave: 2.1 mV R wave: None at VVI 30 Atrial capture threshold: 1.75V @ 1.0 ms. Chronically elevated in former pacemaker as well. A Cap Confirm was NOT recommended RV capture threshold: 0.75 V at 0.5 ms. RV Cap Confirm recommended LV capture threshold: 1.25 V at 0.5 ms M3-M2. LV Cap Confirm recommended. Chronically elevated -changing pulse width did not decrease this safety margin set at 0.5 V Pacing percentages: AP 51 %; SENIOR PRODUCER 98 % Mode switch episodes: none VHR: None Crvue: Last elevated for 8 days late February early March- said he had the flu then Battery: 23 uA, 86 %, est 3.8-4.4 years to MARY B[facility] Charge time: 8.9 sec 07/26/2017 Changes made this session: iterative changes made to the device for testing purposes. Rate responseturned ON A pulse Amplitude decreased to 3.5 V LV set at 2.0 V with a 0.5 V safety margin on Auto check to conserve battery longevity Incision assessment: L chest healed, device is prominent. Skin intact Plan: Remote in 3 months, RTC in [address] Ugarte Provider: Izzy Holt RN Attending: Dr. Mcarthur documented in this encounter Plan of Treatment Upcoming Encounters Date Type Department Care Team (Late st Contact Info) Description 02/26/2024 10:00 AM EST Hospital Encounter [place] [address] Arrived documented as of this encounter Visit Diagnoses Diagnosis Non-ischemic cardiomyopathy Other primary cardiomyopathies documented in this encounter Care Teams Assistant Superintendent For Curriculum Relationship Specialty Start Date End Date Carlos Valdez MD [address] [place] [address] PCP - General 03/25/11 08/07/22 documented as of this encounter
--- OUTSIDE RECORDS SUMMARY | 2023-12-11 18:45 | XMS_ITS | Encounter Summary ---
[place] [address] Care Team Providers Care [place] Boatman Name Role Phone Carlos Valdez MD Primary Care Provider [phone] Encounter Details Date Type Department Care Team (Late st Contact Info) Description 06/19/2018 Orders Only Cardiology at [address] [phone] Social History Tobacco Use Types Packs/Day Years [...] [facility] Encounter Non-[place] [address] Arrived documented as of this encounter Procedures Procedure Name Priority Date/Time Associated Diagnosis Comments CARDIAC DEVICE CHECK - REMOTE SCHEDULED Routine 06/19/2018 2:00 AM EDT documented in this encounter Results * Cardiac device check - Remote Scheduled (06/19/2018 2:00 AM EDT) [facility] Implantable Pulse Generator Type Cardiac Resynchronization Therapy - Defibrillator [employer]CO Implantable Pulse Generator Model 3365-40 IDCO Implantable Pulse Generator Serial Number [id number] IDCO Implantable Pulse Generator Transportation Analyst [employer] IDCO Implantable Pulse Generator Implant Date IDCO Implantable Pulse Generator Implanter N/A IDCO Implantable Pulse Generator Implanter Contact Information N/A IDCO Implantable Pulse Generator Implanting Facility N/A IDCO Implantable Lead Special Function Sense and Pace in RA IDCO Implantable Lead Model 5568 IDCO Implantable Lead Serial Number [id number] IDCO Implantable Lead Transportation Analyst Medtronic IDCO Implantable Lead Implant Date IDCO Implantable Lead Polarity Type Bipolar Lead IDCO Implantable Lead Location Right Atrium IDCO Implantable Lead Connection Status Connected IDCO Implantable Lead Special Function Pace in LV IDCO Implantable Lead Model 1458Q Quartet(R) IDCO Implantable Lead Serial Number [id number] IDCO Implantable Lead Transportation Analyst [employer] IDCO Implantable Lead Implant Date IDCO Implantable Lead Polarity Type Quadripolar Lead IDCO Implantable Lead Location Left Ventricle IDCO Implantable Lead Connection Status Connected IDCO Implantable Lead Special Function Defibrillation in RV IDCO Implantable Lead Model 7122Q Durata(R) IDCO Implantable Lead Serial Number [id number] IDCO Implantable Lead Transportation Analyst [employer] IDCO Implantable Lead Implant Date IDCO Implantable Lead Polarity Type Bipolar Lead IDCO Implantable Lead Location Right Ventricle IDCO Implantable Lead Connection Status Connected IDCO Date Time Interrogation Session [id number] IDCO Type Interrogation Session Remote Scheduled IDCO Re-programmed During Session NO IDCO Date Time Previous Interrogation Session [id number] IDCO Clinician Name N/A IDCO Clinician Contact Information N/A IDCO Clinic Name N/A IDCO Battery Date Time of Measurements [id number] IDCO Battery Status Middle of Service IDCO Battery Voltage 2.95 V IDCO Battery Remaining Longevity 36 mo IDCO Battery Remaining Percentage 66.0 % IDCO Battery CASHIER CHECKER Trigger When current voltage < 2.59 volts IDCO Capacitor Charge Type Reformation IDCO Capacitor Last Charge Date Time [id number] IDCO Capacitor Charge Time 9.6 s IDCO Capacitor Charge Energy 40 J IDCO Lead Channel Measurements Date and Time Start [id number] IDCO Lead Channel Measurements Date and Time End [id number] IDCO Lead Channel Sensing Intrinsic Amplitude 2.3 mV IDCO Lead Channel Sensing Polarity Bipolar IDCO Lead Channel Pacing Threshold Amplitude 1.75 V IDCO Lead Channel Pacing Threshold Pulse Width 1.0 ms IDCO Lead Channel Pacing Threshold Polarity Bipolar IDCO Lead Channel Pacing Threshold Measurement Method Agricultural Equipment Design Engineer Manual IDCO Lead Channel Impedance Value 340 Ohm IDCO Lead Channel Impedance Polarity Bipolar IDCO Lead Channel Status Null IDCO Lead Channel Measurements Date and Time Start [id number] IDCO Lead Channel Measurements Date and Time End [id number] IDCO Lead Channel Sensing Intrinsic Amplitude 9.6 mV IDCO Lead Channel Sensing Polarity Bipolar IDCO Lead Channel Pacing Threshold Amplitude 0.75 V IDCO Lead Channel Pacing Threshold Pulse Width 0.5 ms IDCO Lead Channel Pacing Threshold Polarity Bipolar IDCO Lead Channel Pacing Threshold Measurement Method Device Automatic IDCO Lead Channel Impedance Value 380 Ohm IDCO Lead Channel Impedance Polarity Bipolar IDCO Lead Channel Status Null IDCO Lead Channel Measurements Date and Time Start [id number] IDCO Lead Channel Measurements Date and Time End [id number] IDCO Lead Channel Pacing Threshold Amplitude 1.125 V IDCO Lead Channel Pacing Threshold Pulse Width 0.5 ms IDCO Lead Channel Pacing Threshold Polarity Bipolar IDCO Lead Channel Pacing Threshold Measurement Method Device Automatic IDCO Lead Channel Impedance Value 810 Ohm IDCO Lead Channel Impedance Polarity Bipolar [...] Lead High Voltage Channel Status Null IDCO TON CONTAINER FILLER LV-RV Delay 30 ms IDCO Ventricular chambers paced during TON CONTAINER FILLER pacing. BiV IDCO Magnet Response Normal [...] Channel Setting Pacing Capture Mode Adaptive IDCO MDC_IDC_SET_LEAD HVCHNL_SHOCK_VEC TOR_ANODE_LOCATI ON_1 Right Ventricle IDCO MDC_IDC_SET_LEAD HVCHNL_SHOCK_VEC TOR_ANODE_ELECTR ODE_1 Coil IDCO [facility]_IDC_SET_LEAD HVCHNL_SHOCK_VEC TOR_CATHODE_LOCA TION_1 Other IDCO [facility]_IDC_SET_LEAD HVCHNL_SHOCK_VEC TOR_CATHODE_ELEC TRODE_1 [...] End IDCO Statistic Atrial Heart Rate Mean 70 {beats} /min IDCO Statistic Atrial Heart Rate Max 320 {beats} /min IDCO Statistic Atrial Heart Rate Min 50 {beats} /min IDCO Statistic Ventricular Heart Rate Max 230 {beats} /min IDCO Statistic Ventricular Heart Rate Mean 70 {beats} /min IDCO Statistic Ventricular Heart Rate Min 50 {beats} /min IDCO Grabiel Statistic Date Time End IDCO Grabiel Statistic Date Time Start IDCO Grabiel Statistic RA Percent Paced 76.0 % IDCO Grabiel Statistic AP PC NETWORK TECHNICIAN Percent 76.0 % IDCO Grabiel Statistic PC NETWORK TECHNICIAN Percent 23.0 % IDCO Grabiel Statistic AP VS Percent [...] {switch es} IDCO Atrial Tachy Statistic AT/AF [place] Percent 0 % IDCO TON CONTAINER FILLER Statistic Date Time End IDCO TON CONTAINER FILLER Statistic Date Time Start IDCO TON CONTAINER FILLER Statistic TON CONTAINER FILLER Percent Paced 99.0 % IDCO Therapy Statistic Recent Date Time End IDCO Therapy Statistic Recent Date Time Start IDCO Therapy Statistic Recent Shocks Delivered 0 {shocks } IDCO Therapy Statistic Recent Shocks Aborted 0 {shocks } IDCO Therapy Statistic Recent ATP Delivered 0 {seq} IDCO Episode Statistic Recent Date Time End [id number] IDCO Episode Statistic Recent Date Time Start [id number] IDCO Episode Identifier [id number] IDCO Episode Date Time [id number] IDCO Episode Detection And Therapy Details AMS IDCO Episode Duration 6 s IDCO Episode Vendor Type Category AMS IDCO Episode Type Category Other IDCO Anatomical Region Laterality Modality Other 06/19/2018 2:00 AM EDT Physician Cardiology IMPLANTABLE CARD IAC DEVICE documented in this encounter Visit Diagnoses Not on filedocumented in this encounter Care Teams [place] Boatman Relationship Specialty Start Date End Date Carlos Valdez MD [address] [place] [address] PCP - General 03/25/11 08/07/22 documented as of this encounter
--- OUTSIDE RECORDS SUMMARY | 2023-12-11 18:45 | XMS_ITS | Encounter Summary ---
[facility] [place] [address] Care Team Providers Care Gm Mobile Name Role Phone Carlos Valdez MD Primary Care Provider [phone] Reason for Visit * Reason Onset Date Comments Medication Refill 08/03/2018 Encounter Details Date Type Department Care Team (Late st Contact Info) Description 08/03/2018 Refill Cardiology at [address] [phone] Xin Grewal, SALES [facility] [place] [address] Medication Refill Social History Tobacco Use Types [...] AM EST Hospital Encounter Non-[place]vasive [place] [phone] Arrived documented as of this encounter Visit Diagnoses Not on filedocumented in this encounter Care Teams Gm Mobile Relationship Specialty Start Date End Date Carlos Valdez MD [address] [place] [address] [address] [place] [address] PCP - General 03/25/11 08/07/22 documented as of this encounter
--- OUTSIDE RECORDS SUMMARY | 2023-12-11 18:45 | XMS_ITS | Encounter Summary ---
[facility] [place] [address] Care Team Providers Care Poultice Machine Operator Name Role Phone Carlos Valdez MD Primary Care Provider [phone] Reason for Visit * Reason Onset Date Comments Medication Refill 08/07/2017 Carvedilol Encounter Details Date Type Department Care Team (Late st Contact Info) Description 08/07/2017 Refill Cardiology at [address] [phone] Brady Ugarte MD [facility] [place] [address] Medication Refill (Carvedilol) Social History Tobacco Use [...] AM EST Hospital Encounter Non-Invasive [place] [phone] Arrived documented as of this encounter Visit Diagnoses Not on filedocumented in this encounter Care Teams Poultice Machine Operator Relationship Specialty Start Date End Date Carlos Valdez MD [address] [place] [address] PCP - General 03/25/11 08/07/22 documented as of this encounter
--- OUTSIDE RECORDS SUMMARY | 2023-12-11 18:45 | XMS_ITS | Encounter Summary ---
[place] [address] Care Team Providers Care Poem Writer Name Role Phone Carlos Valdez MD Primary Care Provider [phone] Encounter Details Date Type Department Care Team (Latest Contact Info) Description 09/13/2017 8:45 AM EDT Laboratory Appointment Cardiology at [address] [phone] Nonischemic cardiomyopathy; Pericardial effusion; Chronic systolic heart failure Social History Tobacco [...] AM EST Hospital Encounter Non[place] [phone] Arrived documented as of this encounter Procedures Procedure Name Priority Date/Time Associated Diagnosis Comments PRO-BRAIN NATRIURETIC PEPTIDE Routine 09/13/2017 9:00 AM EDT Nonischemic cardiomyopathy Pericardial effusion Chronic systolic heart failure LIPID PANEL (REFLEX DIRECT LDL) Routine 09/13/2017 9:00 AM EDT Nonischemic cardiomyopathy Pericardial effusion Chronic systolic heart failure COMPREHENSIVE METABOLIC PANEL Routine 09/13/2017 9:00 AM EDT Nonischemic cardiomyopathy Pericardial effusion Chronic systolic heart failure documented in this encounter Results * Lipid Panel (09/13/2017 9:00 AM EDT) Cholesterol, Total 169 mg/dL [facility] Comment: Lower Risk: <200 mg/dL Average Risk: 200-239 mg/dL Higher Risk: >ku=610 mg/dL Triglyceride 132 mg/dL [facility] Comment: Average Risk/Lower Risk: <150 mg/dL Borderline High Risk: 150-199 mg/dL High Risk: 200-499 mg/dL Very High Risk: >ag=857 mg/dL HDL Cholesterol 49 mg/dL [facility] Comment: Males: ?? Higher Risk: <40 mg/dL Females: ?? HIgher Risk: <50 mg/dL LDL Cholesterol 94 mg/dL [facility] Comment: Lowest Risk: <100 mg/dL Lower Risk: 100-129 mg/dL Borderline High Risk: 130-159 mg/dL High Risk: 160-189 mg/dL Very High Risk: >jd=295 mg/dL Cholesterol/HDL Ratio 3.4 ratio [facility] Lipid Interpretation See Note [facility] Comment: Lipid management should be guided by a patient? s ASCVD risk, goals and preferences. ACC/AHA Guidelines recommend high intensity statin if clinical ASCVD or LDL greater than or equal to 190 mg/dL. http://Hire Spaceurl.com/AHA-VNL-Mwweufpzd Adults aged 40-75 with LDL 70-189 mg/dL should have their 10 year ASCVD risk estimated with the ACC/AHA ASCVD risk estimator printing http://tools.acc.org/YLWQL-Zkyv-Masbnxdea/ Statin should be discussed if risk greater [...] of ASCVD risk reduction. Blood specimen (specimen) 09/13/2017 9:00 AM EDT 09/13/2017 9:04 AM EDT Narrative Resulting Agency Comment Spec In Lab Brady Ugarte MD CHEMISTRY ORDERABLES Performing Organization Address [facility]/ZIP Co de Phone Number [facility] [place] [address] * pro-Brain Natriuretic Peptide (09/13/2017 9:00 AM EDT) NT-proBNP 119 <=125 pg/mL [facility] Blood specimen (specimen) 09/13/2017 9:00 AM EDT 09/13/2017 9:04 AM EDT Narrative Resulting Agency Comment Spec In Lab Brady Ugarte MD CHEMISTRY ORDERABLES Performing Organization Address [facility] Co de Phone Number [facility] [place] [address] * Comprehensive metabolic panel (non-fasting) (09/13/2017 9:00 AM EDT) Glucose 86 65 - 199 mg/dL [facility] Comment:Diabetes: >=200 mg/d L plus symptoms Blood Urea Nitrogen 19 10 - 20 mg/dL [facility] Creatinine 1.00 0.80 - 1.50 mg/dL [facility] Sodium 140 135 - 145 mmol/L [facility] Potassium 4.7 3.5 - 5.0 mmol/L [facility] Comment: Please note: ??Patients with WBC >100,000 may have falsely elevated Potassium levels. ??For accurate Potassium quantification in these patients send serum separator tube (gold top) for subsequent determinations. ??Contact the Clinical Chemistry Laboratory if there are any questions. Chloride 100 98 - 107 mmol/L [facility] Carbon Dioxide 28 22 - 31 mmol/L [facility] Anion Gap 12 5 - 15 mmol/L [facility] Calcium 9.6 8.5 - 10.5 mg/dL [facility] Protein, Total 6.6 6.1 - 8.0 gm/dL [facility] Albumin 4.2 3.2 - 5.2 gm/dL [facility] Aspartate Aminotransferase 15 0 - 39 unit/L [facility] Alanine Aminotransferase 15 0 - 55 unit/L [facility] Alkaline Phosphatase 51 40 - 120 unit/L [facility] Bilirubin, Total 0.7 0.2 - 1.3 mg/dL [facility] Est Glomerular Filtration Rate >60 >=60 [facility] Comment: The eGFR was calculated using the CKD-EPI equation. As with all creatinine based estimates of kidney function, eGFR values calculated with the CKD-EPI equation are not accurate in patients with acute kidney failure, extremes of body mass or the acutely ill. http://Nautal/Advanced Electron Beamsnkdep http://Nautal/[facility]WTONnkf eGFR 87 >=60 mL/min/1. 73 m?? [facility] Comment: The eGFR was calculated using the CKD-EPI equation. As with all creatinine based estimates of kidney function, eGFR values calculated with the CKD-EPI equation are not accurate in patients with acute kidney failure, extremes of body mass or the acutely ill. http://Nautal/Advanced Electron Beamsnkdep http://Nautal/[facility] Blood specimen (specimen) 09/13/2017 9:00 AM EDT 09/13/2017 9:04 AM EDT Narrative Resulting Agency Comment Spec In Lab Brady Ugarte MD CHEMISTRY ORDERABLES [facility] [place] [address] documented in this encounter Visit Diagnoses Diagnosis Nonischemic cardiomyopathy Other primary cardiomyopathies Pericardial effusion Unspecified disease of pericardium Chronic systolic heart failure documented in this encounter Care Teams Poem Writer Relationship Specialty Start Date End Date Carlos Valdez MD [address] [place] [address] PCP - General 03/25/11 08/07/22 documented as of this encounter
--- OUTSIDE RECORDS SUMMARY | 2023-12-11 18:45 | XMS_ITS | Encounter Summary ---
[place] [address] Care Team Providers Care Android Developer Name Role Phone Carlos Valdez MD Primary Care Provider [phone] Encounter Details Date Type Department Care Team (Late st Contact Info) Description 10/05/2018 2:00 PM EDT Office Visit Cardiology at [address] [phone] Izzy Holt, RN Malfunction of implantable cardioverter-defibril lator (ICD), initial encounter Social History Tobacco Use Types Packs/Day [...] Time Taken Comments Blood Pressure 173/93 10/05/2018 1:57 PM EDT Pulse 61 10/05/2018 1:57 PM EDT Temperature - - Respiratory Rate - - Oxygen Saturation 97% 10/05/2018 1:57 PM EDT Inhaled Oxygen Concentration - - Weight 103.9 kg (229 lb) 10/05/2018 1:57 PM EDT Height 198.1 cm (6' 6) 10/05/2018 1:57 PM EDT Body Mass Index 26.46 10/05/2018 1:57 PM EDT documented in this encounter Progress Notes * Izzy Holt RN - 10/05/2018 2:00 PM EDT Images from the original note were not included. Clinical Electrophysiology Device Service Note Pacemaker Clinic Follow-Up Jimmie Mccauley is a 73 y.o. male who presents today in the device clinic for NECKTIE MAKER- D programming evaluation, he is seeing Angélica Grewal APRN to follow. He states he still gets short of breath on hills, histogram shows he is left shifted rate response turned ON and RR slope was made slightly more sensitive today. Hx: He had an elective generator replacement done secondary to a recall 03/25/2016. He originally had a pacemaker implanted 06/14/2012 for CHB. This was completed at [facility] in [place], [place]. He underwent upgrade to NECKTIE MAKER-D on 02/18/2013 for CHF, CM, ventricular dyssynchrony. PACEMAKER DEPENDENT Plastic Sheeting Cutter: Brady Ugarte MD Final Parameters at Implant: (Old) Ventricular electrode: [employer] Model# 7122Q-58 cm Serial #[id number] Implanted 02/18/2013 (old) Atrial electrode: LUX [employer], Model # 5568-52 cm Serial # [id number] Implanted 06/14/2012 (old) Coronary sinus electrode: [employer] 1458Q/86 Serial number [id number] Implanted 02/18/2013 New Pulse Generator: [employer] [id number] Serial number [id number] Implanted 03/25/2016 Follow Up Today: Settings: Bi-V DDDR 70/130/130, PAV 200 ms, ROSAURA 150 ms, LV->RV 30 ms, mode switch 180 bpm Underlying rhythm: Sinus rate -44-51 bpm with CHB no ventricular escape >30 bpm Heart rate histograms: Left shifted Atrial lead impedance: 360 ohms RV lead impedance: 390 ohms LV lead impedance: 860 ohms M3-M2 RV shock impedance 71 ohms RV to Can Lead impedance trends stable P wave: 2.9 mV R wave: 12.0 mV Atrial capture threshold: 1.75V @ 1.0 ms. Chronically elevated in former pacemaker as well. A Cap Confirm was NOT recommended RV capture threshold: 0.75 V at 0.5 ms. RV Cap Confirm recommended LV capture threshold: 1.25 V at 0.5 ms M3-M2. LV Cap Confirm recommended. Chronically elevated -changing pulse width did not decrease this safety margin set at 0.5 V Pacing percentages: AP 78 %; EXCAVATOR BACKHOE OPERATOR >99 % Mode switch episodes: 0% VHR: None PVC: <1% Corvue: Last elevated for 8 days late May early June 2018 Battery: 29 uA, 61 %, est 2.8 years to MARY BETH Charge time: 9.8 sec 07/27/2018 Changes made this session: iterative changes made to the device for testing purposes. Rate responseslope increased 8-10 Incision assessment: L chest healed, device is prominent. Skin intact and no signs of erosion Plan: Remote in 3 months, RTC in 6 months linked with heart failure team Provider: Izzy Holt RN Attending: Dr. Simms Staff addendum: I agree with the findings and assessment of Izzy Holt as detailed and edited above. Normal device function with chronically elevated RA capture threshold which is stable. No ECG in eDH since the time of implant at which point, biV paced morphology was reasonable. Recommend repeat ECG at next in-person visit if he continues to have some SOB. I was immediately available during this visit. Clarice Simms MD 10/10/2018 4:57 PM documented in this encounter Plan of Treatment Upcoming Encounters Date Type Department Care Team (Late st Contact Info) Description 02/26/2024 10:00 AM EST Hospital Encounter Non-Invasive [place] [address] Arrived documented as of this encounter Visit Diagnoses Diagnosis Malfunction of implantable cardioverter-defibrillator (ICD), initial encounter documented in this encounter Care Teams Android Developer Relationship Specialty Start Date End Date Carlos Valdez MD [address] [place] [address] PCP - General 03/25/11 08/07/22 documented as of this encounter
--- OUTSIDE RECORDS SUMMARY | 2023-12-11 18:45 | XMS_ITS | Encounter Summary ---
Author Organization [facility] [place] [address] Care Team Providers Care Attorney Law Clerk Name Role Phone Carlos Valdez MD Primary Care Provider [phone] Reason for Visit * Reason Onset Date Comments Medication Refill 09/27/2017 losartan 100 m g Encounter Details Date Type Department Care Team (Late st Contact Info) Description 09/27/2017 Refill Cardiology at [address] [phone] Xin Grewal, [facility] [place] [address] Medication Refill (losartan 100 mg) Social History Tobacco Use Types Packs/Day Years [...] Telephone Encounter - Brunilda Richardson RN - 09/27/2017 1:30 PM EDT Pt has increased his losartan to 100 mg po daily as requested by Dr Ugarte. documented in this encounter Plan of Treatment Upcoming Encounters Date Type Department Care Team (Late st Contact Info) Description 02/26/2024 10:00 AM EST Hospital Encounter Non-[place] [address] Arrived documented as of this encounter Visit Diagnoses Not on filedocumented in this encounter Care Teams Attorney Law Clerk Relationship Specialty Start Date End Date Carlos Valdez MD [address] [place] [address] PCP - General 03/25/11 08/07/22 documented as of this encounter
--- OUTSIDE RECORDS SUMMARY | 2023-12-11 18:45 | XMS_ITS | Encounter Summary ---
Author [place] [address] Care Team Providers Care Water Reclamation Systems Operator Name Role Phone Carlos Valdez MD Primary Care Provider [phone] Encounter Details Date Type Department Care Team (Late st Contact Info) Description 06/21/2018 External [place] [address] Carlos Valdez MD [address] [address] Social History Tobacco Use Types Packs/Day Years [...] AM EST Hospital Encounter Non-Invasive [place] [address] Arrived documented as of this encounter Procedures Procedure Name Priority Date/Time Associated Diagnosis Comments EP DEVICE SCAN Routine 06/19/2018 documented in this encounter Results * Scan Doc: EP Device (06/19/2018) Anatomical Region Laterality Modality Other Carlos Valdez MD MEDIA MGR SCAN EXT O RDR/RSLT documented in this encounter Visit Diagnoses Not on filedocumented in this encounter Care Teams Water Reclamation Systems Operator Relationship Specialty Start Date End Date Carlos Valdez MD [address] [place] [address] PCP - General 03/25/11 08/07/22 documented as of this encounter
--- OUTSIDE RECORDS SUMMARY | 2023-12-11 18:45 | XMS_ITS | Encounter Summary ---
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 Clinical Electrophysiology Device Service Note Pacemaker Clinic Follow-Up Jimmie Mccauley is a 72 y.o. male who presents today in the device clinic for TELEPHONE ORDER CLERK ROOM SERVICE- D programming evaluation, he is seeing Angélica Grewal APRN to follow. to follow. He states he gets short of breath on hills, histogram shows he is left shifted rate response turned ON at last visit and was made slightly more sensitive today. Hx: He had an elective generator replacement done secondary to a recall 03/25/2016. He originally had a pacemaker implanted 06/14/2012 for CHB. This was completed at [facility] in [place], [place]. He underwent upgrade to TELEPHONE ORDER CLERK ROOM SERVICE-D on 02/18/2013 for CHF, CM, ventricular dyssynchrony. Save All Operator: Brady Ugarte MD Final Parameters at Implant: (Old) Ventricular electrode: [employer] Model# 7122Q-58 cm Serial #[id number] Implanted 02/18/2013 (old) Atrial electrode: [employer], Model # 5568-52 cm Serial # [id number] Implanted 06/14/2012 (old) Coronary sinus electrode: [employer] 1458Q/86 Serial number [id number] Implanted 02/18/2013 New Pulse Generator: [employer] [id number] Serial number [id number] Implanted 03/25/2016 Follow Up Today: Settings: Bi-V DDDR 70/130/130, PAV 200 ms, ROSAURA 150 ms, LV->RV 30 ms, mode switch 180 bpm Underlying rhythm: Sinus rate -62 bpm with CHB ventricular escape 37 bpm Heart rate histograms: Left shifted Atrial [...] set at 0.5 V Pacing percentages: AP 67 %; GOGGLES ASSEMBLER >99 % Mode switch episodes: 0% VHR: None PVC: <1% Corvue: Last elevated for 9 days late December early January said he was on vacation during that time Battery: 27 uA, 70 %, est 3.3 years to MARY BETH Charge time: 9.6 sec 11/25/2017 Changes made this session: iterative changes made to the device for testing purposes. Rate responsethreshold decreased from +0.0 to -0.5 Incision assessment: L chest healed, device is prominent. Skin intact Plan: Remote in 3 months, RTC in 6 months linked with heart failure team Provider: Izzy Holt RN Attending: Dr. Simms documented in this encounter Plan of Treatment Upcoming Encounters Date Type Department Care Team (Late st Contact Info) Description 02/26/2024 10:00 AM EST Hospital Encounter Non-[place] [address] Arrived documented as of this encounter Visit Diagnoses Diagnosis Chronic systolic heart failure documented in this encounter Care Teams Transfer Professor Relationship Specialty Start Date End Date Carlos Valdez MD [address] [place] [address] PCP - General 03/25/11 08/07/22 documented as of this encounter
--- OUTSIDE RECORDS SUMMARY | 2023-12-11 18:45 | XMS_ITS | Encounter Summary ---
[place] [address] Care Team Providers Care Appliquer Name Role Phone Carlos Valdez MD Primary Care Provider [phone] Encounter Details Date Type Department Care Team (Latest Contact Info) Description 02/15/2017 9:30 AM EST Laboratory Appointment Lab [address] [place] [phone] Cardiomyopathy, unspecified type; Elevated cholesterol; Congestive heart failure, unspecified congestive heart failure chronicity, unspecified congestive heart failure type Social History Tobacco Use Types Packs/Day [...] AM EST Hospital Encounter Non-[place] [phone] Arrived documented as of this encounter Procedures Procedure Name Priority Date/Time Associated Diagnosis Comments HEMOGRAM Routine 02/15/2017 9:13 AM EST Cardiomyopathy, unspecified type DIFFERENTIAL, AUTOMATED Routine 02/15/2017 9:13 AM EST Cardiomyopathy, unspecified type CBC (WITH DIFF) Routine 02/15/2017 9:13 AM EST Cardiomyopathy, unspecified type PRO-BRAIN NATRIURETIC PEPTIDE Routine 02/15/2017 9:13 AM EST Cardiomyopathy, unspecified type Congestive heart failure, unspecified congestive heart failure chronicity, unspecified congestive heart failure type LIPID PANEL (REFLEX DIRECT LDL) Routine 02/15/2017 9:13 AM EST Cardiomyopathy, unspecified type Elevated cholesterol COMPREHENSIVE METABOLIC PANEL Routine 02/15/2017 9:13 AM EST Cardiomyopathy, unspecified type documented in this encounter Results * (ABNORMAL) Differential, Automated (02/15/2017 9:13 AM EST) Neutrophil % 66.2 % [facility] Neutrophil Absolute 6.17(H) 1.70 - 6.10 x10(3)/mc L [facility] Lymph % 21.1 % [facility] Lymphocytes Abs 2.0 0.9 - 3.2 x10(3)/mc L [facility] Monocyte % 9.8 % [facility] Monocyte Abs 0.9 0.3 - 0.9 x10(3)/mc L [facility] Eos % 2.1 % [facility] Eosinophils Abs 0.2 0.0 - 0.4 x10(3)/mc L [facility] Basophil % 0.5 % [facility] Baso Absolute 0.0 0.0 - 0.1 x10(3)/mc L [facility] Immature Gran % 0.30 % [facility] Comment: Immature granulocytes(IG's)percentage and absolute count will include metamyelocytes, myelocytes, and promyelocytes. Blood smears from CBCs yielding IG's will be scanned manually for concordance. If this scan disagrees with the automated IG or if promyelocytes are noted, a manual differential will be performed. Immature Gran Absolute 0.03 0.00 - 0.04 x10(3)/mc L [facility] Blood specimen (specimen) 02/15/2017 9:13 AM EST 02/15/2017 9:26 AM EST Narrative Resulting Agency Comment Spec In Lab Brady Ugarte MD HEMATOLOGY ORDERABLE S Performing Organization Address City/[facility]/ZIP Co dc Phone Number [facility] [place] [address] * Hemogram (02/15/2017 9:13 AM EST) White Blood Cell 9.3 4.0 - 9.5 x10(3)/[facility] Red Blood Cell 5.36 4.58 - 5.54 x10(6)/[facility] Hemoglobin 16.2 13.7 - 16.5 gm/dL [facility] Hematocrit 46.6 40.5 - 48.5 % [facility] Mean Cell Volume 86.9 82.9 - 93.1 [facility] Mean Cell Hemoglobin 30.2 27.5 - 32.1 pg [facility] Mean Cell Hemoglobin Concentration 34.8 32.0 - 35.7 gm/dL [facility] Platelet 181 145 - 357 x10(3)/[facility] RDW Standard Deviation 39.5 36.0 - 45.0 [facility] RDW coefficient of variation 12.5 11.4 - 13.8 % [facility] Mean Platelet Volume 10.3 7.6 - 12.9 [facility] NRBC% auto 0.0 % [facility] NRBC Absolute 0.000 0.000 - 0.000 x10(3)/[facility] Blood specimen (specimen) 02/15/2017 9:13 AM EST 02/15/2017 9:26 AM EST Narrative Resulting Agency Comment Spec In Lab Brady Ugarte MD HEMATOLOGY ORDERABLE S [facility] [place] [place] [address] * (ABNORMAL) pro-Brain Natriuretic Peptide (02/15/2017 9:13 AM EST) NT-proBNP 138(H) <=125 pg/mL [facility] Blood specimen (specimen) 02/15/2017 9:13 AM EST 02/15/2017 9:26 AM EST Narrative Resulting Agency Comment Spec In Lab Brady Ugarte MD CHEMISTRY ORDERABLES Performing Organization Address [facility]/ZIP Co de Phone Number [facility] [address] * (ABNORMAL) Lipid Panel (02/15/2017 9:13 AM EST) Cholesterol, Total 167 <=239 mg/dL [facility] Triglyceride 241(H) <=199 mg/dL [facility] HDL Cholesterol 42 >=40 mg/dL [facility] LDL Cholesterol 77 <=190 mg/dL [facility] Cholesterol/HDL Ratio 4.0 ratio [facility] Lipid Interpretation See Note [facility] Comment: Lipid management should be guided by a patient? s ASCVD risk, goals and preferences. ACC/AHA Guidelines recommend high intensity statin if clinical ASCVD or LDL greater than or equal to 190 mg/dL. [email or web address] Adults aged 40-75 with LDL 70-189 mg/dL should have their 10 year ASCVD risk estimated with the ACC/AHA ASCVD risk rehabilitation therapist http://tools.acc.org/NSZPS-Tahl-Zpqwyaiob/ Statin should be discussed if risk greater [...] In Lab Brady Ugarte MD CHEMISTRY ORDERABLES [facility] [place] [address] * Comprehensive metabolic panel (non-fasting) (02/15/2017 9:13 AM EST) Glucose 68 65 - 199 mg/dL [facility] Comment:Diabetes: >=200 mg/d L plus symptoms Blood Urea Nitrogen 20 10 - 20 mg/dL [facility] Creatinine 1.06 0.80 - 1.50 mg/dL [facility] Sodium 143 135 - 145 mmol/L [facility] Potassium 4.8 3.5 - 5.0 mmol/L [facility] Comment: Please note: ??Patients with WBC >100,000 may have falsely elevated Potassium levels. ??For accurate Potassium quantification in these patients send serum separator tube (gold top) for subsequent determinations. ??Contact the Clinical Chemistry Laboratory if there are any questions. Chloride 103 98 - 107 mmol/L [facility] Carbon Dioxide 28 22 - 31 mmol/L [facility] Anion Gap 12 5 - 15 mmol/L [facility] Calcium 9.4 8.5 - 10.5 mg/dL [facility] Protein, Total 6.5 6.1 - 8.0 gm/dL [facility] Albumin 3.8 3.2 - 5.2 gm/dL [facility] Aspartate Aminotransferase 15 0 - 39 unit/L [facility] Alanine Aminotransferase 14 0 - 55 unit/L [facility] Alkaline Phosphatase 53 40 - 120 unit/L [facility] Bilirubin, Total 1.1 0.2 - 1.3 mg/dL [facility] Est Glomerular Filtration Rate >60 >=60 [facility] Comment: The reported eGFR should be multiplied by 1.2 for patients. The MDRD is not an appropriate measure of renal function for patients with body mass extremes or in patients with acute kidney failure. http://[employer]/DHnkdep [email or web address]://[email or web address] Blood specimen (specimen) 02/15/2017 9:13 AM EST 02/15/2017 9:26 AM EST Narrative Resulting Agency Comment Spec In Lab Brady Ugarte MD CHEMISTRY ORDERABLES [facility] [place] [place] [address] documented in this encounter Visit Diagnoses Diagnosis Cardiomyopathy, unspecified type Elevated cholesterol Pure hypercholesterolemia Congestive heart failure, unspecified congestive heart failure chronicity, unspecified congestive heart failure type documented in this encounter Care Teams Appliquer Relationship Specialty Start Date End Date Carlos Valdez MD [address] [facility] [address] [place] [address] PCP - General 03/25/11 08/07/22 documented as of this encounter
--- OUTSIDE RECORDS SUMMARY | 2023-12-11 18:45 | XMS_ITS | Encounter Summary ---
[place] [address] Care Team Providers Care Refund Clerk Name Role Phone Carlos Valdez MD Primary Care Provider [phone] Encounter Details Date Type Department Care Team (Late st Contact Info) Description 06/29/2017 External Results Cardiology at [address] [phone] Carlos Valdez MD [address] [place] [address] [id number] Social History Tobacco Use Types Packs/Day Years [...] AM EST Hospital Encounter Non-[place] [address] Arrived documented as of this encounter Procedures Procedure Name Priority Date/Time Associated Diagnosis Comments EP DEVICE SCAN Routine 05/23/2017 documented in this encounter Results * Scan Doc: EP Device (05/23/2017) Anatomical Region Laterality Modality Other Carlos Valdez MD MEDIA MGR SCAN EXT O RDR/RSLT documented in this encounter Visit Diagnoses Not on filedocumented in this encounter Care Teams Refund Clerk Relationship Specialty Start Date End Date Carlos Valdez MD [address] [place] [address] PCP - General 03/25/11 08/07/22 documented as of this encounter
--- OUTSIDE RECORDS SUMMARY | 2023-12-11 18:45 | XMS_ITS | Encounter Summary ---
[place] [address] Care Team Providers Care Supervisor Electronic Coils Name Role Phone Carlos Valdez MD Primary Care Provider [phone] Encounter Details Date Type Department Care Team (Late st Contact Info) Description 09/18/2018 Orders Only Cardiology at [address] [phone] Social History Tobacco Use Types Packs/Day Years [...] st Contact Info) Description 02/26/2024 10:00 AM [facility] Hospital Encounter Non-[place] [address] Arrived documented as of this encounter Procedures Procedure Name Priority Date/Time Associated Diagnosis Comments CARDIAC DEVICE CHECK - REMOTE SCHEDULED Routine 09/18/2018 2:09 AM EDT documented in this encounter Results * Cardiac device check - Remote Scheduled (09/18/2018 2:09 AM EDT) [facility] Implantable Pulse Generator Type Cardiac Resynchronization Therapy - Defibrillator [employer] Implantable Pulse Generator Model 3365-40 [employer] Implantable Pulse Generator Serial Number [id number] [employer] Implantable Pulse Generator Model Builder Display [employer] ID[employer] Implantable Pulse Generator Implant Date [employer] Implantable Pulse Generator Implanter N/A [employer] Implantable Pulse Generator Implanter Contact Information N/A [employer] Implantable Pulse Generator Implanting Facility N/A [employer] Implantable Lead Special Function Sense and Pace in RA [employer] Implantable Lead Model 5568 [employer] Implantable Lead Serial Number [id number] [employer] Implantable Lead Model Builder Display Medtronic IDCO Implantable Lead Implant Date [employer] Implantable Lead Polarity Type Bipolar Lead [employer] Implantable Lead Location Right Atrium [employer] Implantable Lead Connection Status Connected [employer] Implantable Lead Special Function Pace in LV [employer] Implantable Lead Model 1458Q Quartet(R) [employer] Implantable Lead Serial Number [id number] [employer] Implantable Lead Model Builder Display [employer] IDCO Implantable Lead Implant Date [employer]CO Implantable Lead Polarity Type Quadripolar Lead [employer] Implantable Lead Location Left Ventricle [employer] Implantable Lead Connection Status Connected [employer] Implantable Lead Special Function Defibrillation in RV [employer] Implantable Lead Model 7122Q Durata(R) [employer] Implantable Lead Serial Number [id number] [employer] Implantable Lead Model Builder Display [employer] IDCO Implantable Lead Implant Date IDCO Implantable Lead Polarity Type Bipolar Lead IDCO Implantable Lead Location Right Ventricle IDCO Implantable Lead Connection Status Connected IDCO Date Time Interrogation Session [id number] IDCO Type Interrogation Session Remote Scheduled [facility]CO Re-programmed During Session NO IDCO Date Time Previous Interrogation Session [id number] [employer]CO Clinician Name N/A IDCO Clinician Contact Information N/A IDCO Clinic Name N/A [facility]CO Battery Date Time of Measurements [id number] IDCO Battery Status Middle of Service IDCO Battery Voltage 2.93 V IDCO Battery Remaining Longevity 34 mo IDCO Battery Remaining Percentage 62.0 % IDCO Battery TEMPORARY ADMINISTRATIVE ASSISTANT Trigger When current voltage < 2.59 volts IDCO Capacitor Charge Type Reformation IDCO Capacitor Last Charge Date Time [id number] IDCO Capacitor Charge Time 9.8 s IDCO Capacitor Charge Energy 40 J IDCO Lead Channel Measurements Date and Time Start [id number] [employer]CO Lead Channel Measurements Date and Time End [id number] [employer]CO Lead Channel Sensing Intrinsic Amplitude 2.3 mV IDCO Lead Channel Sensing Polarity Bipolar IDCO Lead Channel Pacing Threshold Amplitude 1.75 V IDCO Lead Channel Pacing Threshold Pulse Width 1.0 ms IDCO Lead Channel Pacing Threshold Polarity Bipolar IDCO Lead Channel Pacing Threshold Measurement Method Medical Program Specialist Manual IDCO Lead Channel Impedance Value 380 Ohm IDCO Lead Channel Impedance Polarity Bipolar IDCO Lead Channel Status Null IDCO Lead Channel Measurements Date and Time Start [id number] IDCO Lead Channel Measurements Date and Time End [id number] IDCO Lead Channel Sensing Intrinsic Amplitude 11.5 mV IDCO Lead Channel Sensing Polarity Bipolar [...] Lead Channel Measurements Date and Time Start [id number] IDCO Lead Channel Measurements Date and Time End [id number] [employer]CO Lead Channel Pacing Threshold Amplitude 1.125 [...] Lead High Voltage Channel Status Null IDCO FIGURE CLERK LV-RV Delay 30 ms IDCO Ventricular chambers paced during FIGURE CLERK pacing. BiV IDCO Magnet Response Normal IDCO [...] MDC_IDC_SET_LEAD HVCHNL_SHOCK_VEC TOR_ANODE_LOCATI ON_1 Right Ventricle IDCO [facility]_IDC_SET_LEAD HVCHNL_SHOCK_VEC TOR_ANODE_ELECTR ODE_1 Coil IDCO [facility]_IDC_SET_LEAD HVCHNL_SHOCK_VEC TOR_CATHODE_LOCA TION_1 Other IDCO [facility]_IDC_SET_LEAD HVCHNL_SHOCK_VEC TOR_CATHODE_ELEC TRODE_1 Can IDCO Grabiel Setting [...] Start IDCO Grabiel Statistic RA Percent Paced 78.0 % IDCO Grabiel Statistic AP DISABILITY SPECIALIST Percent 78.0 % IDCO Grabiel Statistic DISABILITY SPECIALIST Percent 22.0 % IDCO Grabiel Statistic AP VS Percent 1.0 % IDCO Grabiel Statistic VS Percent 1.0 % IDCO Atrial Tachy Statistic Date Time End IDCO Atrial Tachy Statistic Date Time Start IDCO Atrial Tachy Statistic Maximum Mode Switch Duration 6 s IDCO Atrial Tachy Statistic Percent Time In Mode Switch 1 % IDCO Atrial Tachy Statistic Number Of Mode Switches 2 {switch es} IDCO Atrial Tachy Statistic Number Of Mode Switches Per Day 0 {switch es} IDCO Atrial Tachy Statistic AT/AF [place] Percent 0 % IDCO FIGURE CLERK Statistic Date Time End IDCO FIGURE CLERK Statistic Date Time Start IDCO FIGURE CLERK Statistic FIGURE CLERK Percent Paced 99.0 % IDCO Therapy Statistic Recent Date Time End IDCO Therapy Statistic Recent Date Time Start IDCO Therapy Statistic Recent Shocks Delivered 0 {shocks } IDCO Therapy Statistic Recent Shocks Aborted 0 {shocks } IDCO Therapy Statistic Recent ATP Delivered 0 {seq} IDCO Episode Statistic Recent Date Time End [id number] IDCO Episode Statistic Recent Date Time Start [id number] IDCO Episode Identifier [id number] IDCO Episode Date Time [id number] IDCO Episode Detection And Therapy Details AMS IDCO Episode Duration 6 s IDCO Episode Vendor Type Category AMS IDCO Episode Type Category Other IDCO Episode Identifier [id number] IDCO Episode Date Time [id number] IDCO Episode Detection And Therapy Details AMS IDCO Episode Duration 6 s IDCO Episode Vendor Type Category AMS IDCO Episode Type Category Other IDCO Anatomical Region Laterality Modality Other 09/18/2018 2:09 AM EDT Physician Cardiology IMPLANTABLE CARD IAC DEVICE documented in this encounter Visit Diagnoses Not on filedocumented in this encounter Care Teams Supervisor Electronic Coils Relationship Specialty Start Date End Date Carlos Valdez MD [address] [place] [address] PCP - General 03/25/11 08/07/22 documented as of this encounter
--- OUTSIDE RECORDS SUMMARY | 2023-12-11 18:45 | XMS_ITS | Encounter Summary ---
[place] [address] Care Team Providers Care Parts Order And Stock Clerk Name Role Phone Carlos Valdez MD Primary Care Provider [phone] Encounter Details Date Type Department Care Team (Latest Contact Info) Description 03/16/2018 2:00 PM EST Laboratory Appointment Lab [address] [place] [phone] SOB (shortness of breath) Social History Tobacco Use Types Packs/Day Years [...] AM EST Hospital Encounter Non[place] [phone] Arrived documented as of this encounter Procedures Procedure Name Priority Date/Time Associated Diagnosis Comments PRO-BRAIN NATRIURETIC PEPTIDE STAT 03/16/2018 2:00 PM EST SOB (shortness of breath) BASIC METABOLIC PANEL STAT 03/16/2018 2:00 PM EST SOB (shortness of breath) documented in this encounter Results * (ABNORMAL) Basic Metabolic Panel (non-fasting) (03/16/2018 2:00 PM EST) Glucose 88 65 - 199 mg/dL [facility] Comment:Diabetes: >=200 mg/d L plus symptoms Blood Urea Nitrogen 21(H) 10 - 20 mg/dL [facility] Creatinine 0.91 0.80 - 1.50 mg/dL [facility] Sodium 142 135 - 145 mmol/L [facility] Potassium 4.3 3.5 - 5.0 mmol/L [facility] Comment: Please note: ??Patients with WBC >100,000 may have falsely elevated Potassium levels. ??For accurate Potassium quantification in these patients send serum separator tube (gold top) for subsequent determinations. ??Contact the Clinical Chemistry Laboratory if there are any questions. Chloride 103 98 - 107 mmol/L [facility] Carbon Dioxide 26 22 - 31 mmol/L [facility] Anion Gap 13 5 - 15 mmol/L [facility] Calcium 9.6 8.5 - 10.5 mg/dL [facility] Est Glomerular Filtration Rate 84 >=60 mL/min/1. 73 m?? [facility] Comment: The eGFR was calculated using the CKD-EPI equation. As with all creatinine based estimates of kidney function, eGFR values calculated with the CKD-EPI equation are not accurate in patients with acute kidney failure, extremes of body mass or the acutely ill. [email or web address]/[facility] NORMANnkf eGFR 97 >=60 mL/min/1. 73 m?? [facility] Comment: The eGFR was calculated using the CKD-EPI equation. As with all creatinine based estimates of kidney function, eGFR values calculated with the CKD-EPI equation are not accurate in patients with acute kidney failure, extremes of body mass or the acutely ill. [email or web address] Blood specimen (specimen) 03/16/2018 2:00 PM EST 03/16/2018 2:29 PM EST Narrative Resulting Agency Comment Spec In Lab Xin Grewal APRN CHEMISTRY ORDERABLES Performing Organization Address City/[facility]/ZIP Co de Phone Number [facility] [place] [address] * pro-Brain Natriuretic Peptide (03/16/2018 2:00 PM EST) NT-proBNP 81 <=125 pg/mL [facility] Blood specimen (specimen) 03/16/2018 2:00 PM EST 03/16/2018 2:29 PM EST Narrative Resulting Agency Comment Spec In Lab Xin Grewal APRN CHEMISTRY ORDERABLES Performing Organization Address [facility] [place] [address] documented in this encounter Visit Diagnoses Diagnosis SOB (shortness of breath) Shortness of breath documented in this encounter Care Teams Parts Order And Stock Clerk Relationship Specialty Start Date End Date Carlos Valdez MD [address] [place] [address] PCP - General 03/25/11 08/07/22 documented as of this encounter
--- OUTSIDE RECORDS SUMMARY | 2023-12-11 18:45 | XMS_ITS | Encounter Summary ---
Author Organization [facility] [place] [address] Care Team Providers Care Railroad Track Inspector Name Role Phone Carlos Valdez MD Primary Care Provider [phone] Encounter Details Date Type Department Care Team (Late st Contact Info) Description 03/16/2018 3:00 PM EST Office Visit Cardiology at [address] [address] Xin Grewal, SONIA [facility] [place] [address] SOB (shortness of breath); Chronic systolic heart failure; Dilated cardiomyopathy; Essential hypertension Social History Tobacco Use [...] Time Taken Comments Blood Pressure 138/80 03/16/2018 2:20 PM EST Pulse 99 03/16/2018 2:20 PM EST Temperature - - Respiratory Rate - - Oxygen Saturation 96% 03/16/2018 2:20 PM EST Inhaled Oxygen Concentration - - Weight 106.5 kg (234 lb 11.2 oz) 03/16/2018 2:20 PM EST Height 200.7 cm (6' 7.02) 03/16/2018 2:20 PM ES T Body Mass Index 26.43 03/16/2018 2:20 PM EST documented in this encounter Progress Notes * Xin Grewal, SALES EXHIBITOR - 03/16/2018 3:00 PM EST Images from the original note were not included. [facility] [place] [address] [address] CARDIOMYOPATHY/HEART FAILURE SERVICE OUTPATIENT CLINIC NOTE Jatinder Morrell 03/16/2018 Primary Care Provider: Carlos Valdez MD Referring Provider: Carlos Valdez HISTORY OF PRESENT ILLNESS: Jatinder Morrell is a 72 y.o. patient with history of pericarditis following PCM implant in 2012, complete heart block with CRTd upgrade in place, nonobstructive coronary artery disease, cardiomyopathy (recovered LV function) seen in routine follow up in the [facility] Heart Failure [facility]. Last seen: August 2017 Since last visit, 6 months ago and he remains active and feeling quite well. He reports no interim illnesses or hospitalizations. He walks regularly with his dog a couple of miles a day and reports no activity limiting symptoms. Occasionally he feels a very slight central chest pressure that reminds of of the prior pericarditis but it is short-lived and not frequent. BPs have improved on higher dose losartan. His weight has remained stable. He denies syncope, presyncope. There is no orthopnea or PND. He has no edema. PAST MEDICAL HISTORY: Reviewed and updated as [...] [employer] Model# 7122Q-58 cm Serial #[id number] Implanted 02/18/2013 Bipolar, steroid-tipped, active-fixation DF-4 lead Access: Axillary vein Location: Right ventricular apical septum (old) Atrial electrode: Medtronic, Model # 5568-52 cm Serial # [id number] Implanted 06/14/2012 Bipolar, steroid-tipped, active-fixation IS-1 lead Access: Not known Location Right atrium anterolateral Coronary sinus electrode: [employer] 1458Q/86 Serial number [id number] Implanted 02/18/2013 Quadripolar passive active fixation lead Access: Subclavian vein Location: Coronary sinus, posterolateral vein Pulse generator: [employer] [id number] Serial number [id number] 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 Generator change 03/25/16: New Pulse Generator [employer] [id number] Serial number [id number] Implanted 03/25/2016 WOOD PROCESSING WORKER ICD Location: Subcutaneous ??? Non-ischemic cardiomyopathy Dilated [...] with left bundle branch block, PVCs, QRS dhpsfwot=285 msec. Symptomatic CHB 06/13/12- s/p DDDR pacemaker 100% V paced rhythm SPEP/Free Light Chains- Results for JATINDER MORRELL ( ) as of 07/10/2016 19:35 Ref. Range 10/19/2015 14:06 10/19/2015 14:07 [place] Free Light Chains Latest Ref Range: 0.33 [...] Carvedilol ROSY/ARB Yes Losartan Spironolactone no Previously [id number], d/c secondary to side effects (hives), no rechallenge Amlodipine Yes Initiated 05/30 [place] AFIB? no Anticoagulated AICD/Type WOOD PROCESSING WORKER-D LBBB, EF dropped to 35%- 04/02/13 back up at ~ 50% post WOOD PROCESSING WORKER--> EF=65% NSR with LBBB, QRS= 170 ms [...] 08/01/12 ??? LBBB (left bundle branch block) QXH=795 ms New Symptomatic CHB 05/30-->declined pacer at initial presentation while traveling -S/p temp pacer-->Permanent DDDR pacer -LVEF~ 50-55%, ICD not indicated, but at risk for V paced rhythm dyssynchrony ??? Complete heart block Symptomatic bradycardia with CHB and LBBB, HR in the 20-30s Initially seen at a local ER, pacemaker recommended, but declined While in ICU, [place], called [facility] in cath report, but likely symptomatic bradycardia and CHB CHB- s/p temporary pacer 06/13/2012 - cath: Angiogram, mild irregularities of LAD, LCXF dominant, 30-40% mid RCA - No LV gram done S/p DDD-R Pacemaker Medtronic Adapta Dual Chamber Model # ADDR01, Serial number [id number] -[place], [place] ??? Pericarditis New chest discomfort ~ 2 weeks post DDD pacer implant Elevated C reactive protein; pericardial effusion->improved with NSAID and colchicine. Should be on colchicine until Nov 18, 2012 Elevated ProBNP, some clinical response with diuretics Stress Echo, LVEF=44%, no change, no definite ischemia, poor exercise tolerance, no pericardial effusion noted on stress Trivial pleural effusion on chest x-ray Elevated XZG=028 a-->3.8 AN ESR=53 on index presentation --> [...] years ago. His smoking use included cigarettes. he has never used smokeless tobacco. He reports [...] Outpatient Medications Marked as Taking for the 03/16/18 encounter (Office Visit) with Xin Grewal APRN Medication Sig Dispense Refill ??? losartan (COZAAR) 100 mg Tablet Take 1 tablet by mouth daily. 90 tablet 3 ??? carvedilol (COREG) 6.25 mg Tablet Take 1 tablet by mouth 2 times daily (with meals). 180 tablet3 ??? multivitamin (THERAGRAN) Tablet Take 1 tablet by mouth daily. ??? pravastatin (PRAVACHOL) 10 mg Tablet Take 10 mg by mouth daily. ??? niorivs-chtulgnuaqbfq-cgkbnmun (EXCEDRIN MIGRAINE) 250-250-65 mg per tablet Take [...] Signs: Wt Readings from Last 3 Encounters: 03/16/18 106.5 kg (234 lb 11.2 oz) 03/16/18 106.5 kg (234 lb 11.2 oz) 09/13/17 106.9 kg (235 lb 9.6 oz) Temp Readings from Last 3 Encounters: 03/25/16 36.3 ??C (97.3 ??F) (Temporal) 02/19/13 36.8 ??C (98.2 ??F) (Oral) 02/11/13 35.6 ??C (96 ??F) (Temporal) BP Readings from Last 3 Encounters: 03/16/18 138/80 03/16/18 138/80 09/13/17 160/90 Pulse Readings from Last 3 Encounters: 03/16/18 99 03/16/18 99 09/13/17 59 SpO2: [96 %] General -Alert, oriented, NAD. Affect good [...] LAB STUDIES: Chemistry Component Value Date/Time NA 142 03/16/2018 1400 K 4.3 03/16/2018 1400 CL 103 03/16/2018 1400 CO2 26 03/16/2018 1400 BUN 21 (H) 03/16/2018 1400 CREATININE 0.91 03/16/2018 1400 Component Value Date/Time CALCIUM 9.6 03/16/2018 1400 ALKPHOS 51 09/13/2017 0900 AST 15 09/13/2017 0900 ALT 15 09/13/2017 0900 BILITOT 0.7 09/13/2017 0900 ProBNP Date Value Ref Range Status 03/16/2018 81 <=125 pg/mL Final 09/13/2017 119 <=125 pg/mL Final 02/15/2017 138 (H) <=125 pg/mL Final CARDIAC STUDIES: Echo 09/13/17 BP: 167/90 ?? SUMMARY: ?? 1. The left ventricular chamber size is [...] study dated 07/11/2016: no significant change. ?? Device interrogation performed today and personally reviewed No atrial or ventricular stored events. He had a [employer] impedance alert in December when he was away. He remains tracking recently along the threshold. BVP is 99%. PROBLEMS: LBBB (left bundle branch block) S/p WOOD PROCESSING WORKER-D, 99% V Paced ?? H/O Pericarditis Without recurrence ?? Heart failure chronic systolic dysfunction Appears well compensated , euvolemic ?? Non-ischemic cardiomyopathy Stable, recovered LVEF on low dose b-makeda, high dose ARB, and previously intolerant to spironolactone, and WOOD PROCESSING WORKER 98% V paced rhythm on WOOD PROCESSING WORKER ?? Biventricular implantable cardioverter-defibrillator in situ- [facility] No device issues, tachycardia, device therapies HTN Improved with med changes at last visit. RECOMMENDATIONS: 1. MEDICATIONS: The patient's medication list was updated and new Rxs given as needed. The medication list was reviewed with the patient, rationale for therapy and potential side effects to be aware of discussed. -Continue current medical therapy 2. The following labs, referrals or other testing advised: -None today - Consider bone scan to rule out ATTR Amyloid in the future-discussed with Dr. Ugarte extensively in the past and he has declined but remains an option 3. COUNSELING: Specific issues or questions addressed on this visit: -Ongoing exercise, maintain reasonable weight, limit EtOH 4. Cardiology follow-up scheduled for: -6 months with device check XIN GREWAL APRN documented in this encounter Plan of Treatment Upcoming Encounters Date Type Department Care Team (Late st Contact Info) Description 02/26/2024 10:00 AM EST Hospital Encounter Non-Invasive [place] [address] Arrived documented as of this encounter Results * pro-Brain Natriuretic Peptide (03/16/2018 2:00 PM EST) NT-proBNP 81 <=125 pg/mL [facility] Blood specimen (specimen) 03/16/2018 2:00 PM EST 03/16/2018 2:29 PM EST Narrative Resulting Agency Comment Spec In Lab Xin Grewal APRN CHEMISTRY ORDERABLES [facility] [place] [address] * (ABNORMAL) Basic Metabolic Panel (non-fasting) (03/16/2018 2:00 PM EST) Glucose 88 65 - 199 mg/dL [facility] Comment:Diabetes: >=200 mg/d L plus symptoms Blood Urea Nitrogen 21(H) 10 - 20 mg/dL [facility] Creatinine 0.91 0.80 - 1.50 mg/dL [facility] Sodium 142 135 - 145 mmol/L [facility] Potassium 4.3 3.5 - 5.0 mmol/L [facility] Comment: Please note: ??Patients with WBC >100,000 may have falsely elevated Potassium levels. ??For accurate Potassium quantification in these patients send serum separator tube (gold top) for subsequent determinations. ??Contact the Clinical Chemistry Laboratory if there are any questions. Chloride 103 98 - 107 mmol/L [facility] Carbon Dioxide 26 22 - 31 mmol/L [facility] Anion Gap 13 5 - 15 mmol/L [facility] Calcium 9.6 8.5 - 10.5 mg/dL [facility] Est Glomerular Filtration Rate 84 >=60 mL/min/1. 73 m?? [facility] Comment: The eGFR was calculated using the CKD-EPI equation. As with all creatinine based estimates of kidney function, eGFR values calculated with the CKD-EPI equation are not accurate in patients with acute kidney failure, extremes of body mass or the acutely ill. [email or web address]/[email or web address] eGFR 97 >=60 mL/min/1. 73 m?? [facility] Comment: The eGFR was calculated using the CKD-EPI equation. As with all creatinine based estimates of kidney function, eGFR values calculated with the CKD-EPI equation are not accurate in patients with acute kidney failure, extremes of body mass or the acutely ill. [email or web address] Blood specimen (specimen) 03/16/2018 2:00 PM EST 03/16/2018 2:29 PM EST Narrative Resulting Agency Comment Spec In Lab Xin Grewal APRN CHEMISTRY ORDERABLES [facility] [place] [address] documented in this encounter Visit Diagnoses Diagnosis SOB (shortness of breath) Shortness of breath Chronic systolic heart failure Dilated cardiomyopathy Other primary cardiomyopathies Essential hypertension Unspecified essential hypertension documented in this encounter Care Teams Railroad Track Inspector Relationship Specialty Start Date End Date Carlos Valdez MD [address] [place] [address] PCP - General 03/25/11 08/07/22 documented as of this encounter
--- OUTSIDE RECORDS SUMMARY | 2023-12-11 18:45 | XMS_ITS | Encounter Summary ---
[place] [address] Care Team Providers Care Boatswains Mate Name Role Phone Carlos Valdez MD Primary Care Provider [phone] Reason for Referral * Diagnostic Test (Routine) - Closed Specialty Diagnoses / Procedures Referred By Contac t Referred To Contact Cardiology Diagnoses Cardiomyopathy, unspecified type Procedures Echocardiogram Transthoracic(Leb) Sim Jiménez MD [facility] [place] [address] [facility] [place] [address] Referral ID Status Reason Start Date Expiration Date V isits Requested Visits Authorized [id number] Closed Specialty Service Requested 02/15/2017 02/15/2018 1 1 Reason for Visit * Diagnostic Test (Routine) - Closed Specialty Diagnoses / Procedures Referred By Contac t Referred To Contact Cardiology Diagnoses Cardiomyopathy, unspecified type Procedures Echocardiogram Transthoracic(Leb) Sim Jiménez MD [facility] [place] [address] [facility] [place] [address] Referral ID Status Reason Start Date Expiration Date V isits Requested Visits Authorized [id number] Closed Specialty Service Requested 02/15/2017 02/15/2018 1 1 Encounter Details Date Type Department Care Team (Latest Contact Info) Description 09/13/2017 9:00 AM EDT - 09/13/2017 11:59 PM EDT Hospital Encounter Non-Invasive [place] [phone] Cardiomyopathy, unspecified type Discharge Disposition: Home Social History [...] Sig Dispensed Refills Start Date End Date multivitamin (THERAGRAN) Tablet Take 1 tablet by mouth daily. oiwievl-gmuugczbbbkuk-z affeine (EXCEDRIN MIGRAINE) 250-250-65 mg per tablet [...] by mouth nightly. 30 tablet 0 01/11/2011 carvedilol (COREG) 6.25 mg Tablet Take 1 tablet by mouth 2 times daily (with meals). 180 tablet 3 08/08/2017 08/03/2018 losartan (COZAAR) 50 mg Tablet Take 1.5 tablets by mouth daily. 30 tablet 11 02/15/2017 09/27/2017 documented as of this encounter Plan of Treatment Upcoming Encounters Date Type Department Care Team (Late st Contact Info) Description 02/26/2024 10:00 AM EST Hospital Encounter Non-Invasive [place] [phone] Arrived documented as of this encounter Procedures Procedure Name Priority Date/Time Associated Diagnosis Comments ECHO COMPLETE W CONTRAST Routine 09/13/2017 10:06 AM EDT Cardiomyopathy, unspecified type documented in this encounter Results * ECHO COMPLETE W CONTRAST (09/13/2017 10:06 AM EDT) EF 57 HEARTLAB SYSTEM Anatomical Region Laterality Modality Other 09/13/2017 Narrative 09/13/2017 10:27 AM EDT Procedure: ?Transthoracic Echocardiogram Patient: ?PORSCHE Mancilla ? (Age): 1945(72y) Med Rec#: ? [id number] ?Sex: ?M ? [place] Loc[place] ? [facility] [place]Ht / Wt: ??198(cm)/106(kg) Pt. Loc: ?Echo Lab ?BSA: ?2.41 Study Date: ?? 09/13/2017 ?Pt. Type: Outpatient Tape: ? Referring: BRADY UGARTE T Reading: Jose Rosen ([id number]) Vitamin Manager: Carlos Sandoval [facility] Diagnosis: *Cardiomyopathy, unspecified (I42.9) BP: ? 167/90 [...] E-wave Vmax ?0.4 ?m/sec ? MV deceleration [id number] ?msec ? MV A-wave Vmax ?0.8 ?m/sec [...] ? Mid-Inferior ?Hypokinetic ? Mid-Inferoseptal ?Normal ? [place]anchard-Septal ? Normal ? [place]-Anterior ? Normal ? [place]anchard-Lateral ?Normal ? [place]-Inferior ? Normal ? [place]anchard-Tip ?Normal ? This report has been electronically signed by: Jose Rosen M.D. ? 09/13/2017 10:26:18 Images reviewed and interpretation verified [facility] Procedure Note Jose Rosen MD - 09/13/2017 Procedure: Transthoracic Echocardiogram Patient: PORSCHE ROBERTS(Age): 1945(72y) Med Rec#: [id number] Sex: M [place] [facility] [place] Ht / Wt: 198(cm)/106(kg) Pt. Loc: Echo Lab BSA: 2.41 Study Date: 09/13/2017 Pt. Type: Outpatient Tape: Referring: BRADY UGARTE T Reading: Jose Rosen ([id number]) Vitamin Manager: Carlos Sandoval [facility] Diagnosis: *Cardiomyopathy, unspecified (I42.9) BP: 167/90 SUMMARY: [...] MV E-wave Vmax 0.4 m/sec MV deceleration [id number] msec MV A-wave Vmax 0.8 m/sec MV [...] Normal Mid-Posterolateral Normal Mid-Inferior Hypokinetic Mid-Inferoseptal Normal Blanchard-Septal Normal Blanchard-Anterior Normal Blanchard-Lateral Normal Blanchard-Inferior Normal Blanch[place]-Tip Normal This report has been electronically signed by: Jose Rosen M.D. 09/13/2017 10:26:18 Images reviewed and interpretation verified [facility] Brady Ugarte MD ECHO ORDERABLES documented in this encounter Visit Diagnoses Diagnosis Cardiomyopathy, unspecified type documented in this encounter Administered Medications Inactive Administered Medications - up to 3 most recent administrations Medication Order MAR Action Action Date Dose Rate Site perflutren protein-A microspheres (OPTISON) 0.22 mg/mL injection 2.4 mL 2.4 mL, Intravenous, ONCE PRN, 1 dose, Starting on Mon09/13/17 at 1007, Until Mon09/13/17 at 0930, Per Protocol, Routine Given 09/13/2017 9:30 AM EDT 2.4 mLs documented in this encounter Care Teams Boatswains Mate Relationship Specialty Start Date End Date Carlos Valdez MD [address] [facility] [address] [place] [address] PCP - General 03/25/11 08/07/22 documented as of this encounter
--- OUTSIDE RECORDS SUMMARY | 2023-12-11 18:45 | XMS_ITS | Encounter Summary ---
Author Organization [facility] [place] [address] Care Team Providers Care Division Road Supervisor Name Role Phone Carlos Valdez MD Primary Care Provider [phone] Reason for Visit * Reason Comments Cardiomyopathy Congestive Heart Failure Encounter Details Date Type Department Care Team (Late st Contact Info) Description 09/13/2017 10:40 AM EDT Office Visit Cardiology at [address] [id number] Brady Ugarte MD [facility] [place] [address] Nonischemic cardiomyopathy; Pericardial effusion; Chronic systolic heart failure; LBBB (left bundle branch block); Pericarditis, unspecified chronicity, unspecified type; Non-ischemic cardiomyopathy; Biventricular implantable cardioverter-defibril lator in situ- [facility] Social History Tobacco [...] Sign Reading Time Taken Comments Blood Pressure 160/90 09/13/2017 10:48 AM EDT Pulse 59 09/13/2017 10:02 AM EDT Temperature - - Respiratory Rate - - Oxygen Saturation 97% 09/13/2017 10: 02 AM EDT Inhaled Oxygen Concentration - - Weight 106.9 kg (235 lb 9.6 oz) 018 10:02 AM EDT Height 200.7 cm (6' 7.02) 09/13/2017 1 0:02 AM EDT Body Mass Index 26.53 09/13/2017 10:02 AM EDT documented in this encounter Progress Notes * Brady Ugarte MD - 09/13/2017 10:40 AM EDT Images from the original note were not included. [facility] [place] [address] [address] CARDIOMYOPATHY/HEART FAILURE SERVICE OUTPATIENT CLINIC NOTE Jatinder Morrell 09/13/2017 Primary Care Provider: Carlos Valdez MD Referring Provider: Carlos Valdez CHIEF COMPLAINT: Chief Complaint Patient presents with ??? Cardiomyopathy ??? Congestive Heart Failure HISTORY OF PRESENT ILLNESS: Jatinder Morrell is a 72 y.o. patient with history of pericarditis, complete heart block, nonobstructive coronary artery disease, cardiomyopathy (recovered LV function) [place] [facility] [facility] Interim Events: The patient has been doing well from a cardiovascular standpoint with no acute decompensated heart failure, emergency room visits, or hospitalizations. He is quite active able to do his ADLs and IADLs, and walks with his dog without significant difficulty. He does note some dyspnea on exertion and fast walking or walking up inclines but this has been stable. He denies any PND, orthopnea, or lower extremity edema. He has not needed to take extra diuretics. He denies any palpitations, syncope, or ICD discharges. He denies any recurrent chest pain. Blood pressures at home have been approximately 130-160 mmHg, on the current medical regimen. He previously did not tolerate spironolactone. He has been hesitant to uptitrate his losartan. The patient also had a device interrogation, echocardiogram, and laboratories today which we discussed in detail. From his 02/15/[address] Jiménez: This gentleman tells me that he was admitted to [facility] with abdominal pain and he was found to have? Intestinal obstruction and was treated conservatively with NG tube subsequently had pneumonia which was appropriately treated. He tells me that he is still getting chest pain across his chest, right and left shoulders. This chest pain is going on since his pacemaker placement. It is mild intensity (4 out of 10), does not radiate to his neck and is not associated with exertion. It can last from minutes to days. He takes ibuprofen and it gives him some partial relief. We discussed the option of taking colchicine when he gets chest discomfort to see if it will respond to colchicine. From history it does not sound like angina because it is nonexertional and it has atypical character and is going on for long time. He is active and he walkscouple miles couple times a week and he also walks his dog. He denies any ankle swelling any weightgain any syncopes, palpitations. He is compliant with his medication. He takes Coreg 6.25 p.o. twice daily, losartan 50, pravastatin 10 mg daily. He also takes Excedrin when he needs it. His weight is 106 kg today similar to his prior clinical visit. His last echocardiogram was done in June of this year with LV function of 65% with no wall motion abnormalities. He had cardiac catheterization done in 2001 with normal coronary arteries. He had repeat cardiac catheterization done in 2012 and [place] showing 25% LAD stenosis, 30-40% RCA stenosis. This was done at the time of his presentation with heart block and he ended up getting a pacemaker at that point. The patient has been stable from a cardiac standpoint with no acute decompensated heart failure, palpitations, syncope, or device therapies. However, he still notes intermittent chest discomfort which he has noted ever since his initial pacemaker implant, performed for complete heart block [place] and with the diagnosis of pericarditis. The symptoms were worse a monthago, for which he takes ibuprofen with relief. This month he has been feeling better. Symptoms are often brief, or can be prolonged, with no association with exertion dyspnea, diaphoresis, or nausea with these symptoms. His previous cardiac catheterizations demonstrated no significant coronary disea se. He still remains quite active. He notes no change in exercise tolerance. The patient has been stable from a [...] a reasonable alternative. Otherwise, his prognosis is good From his 07/11/16 visit: The patient has [...] cardiac protective medications. He recently vacationed in [place] and had no major clinical events. He [...] normal although he has been cutting back onDealflicks producing with less travel that is work-related. He has not needed to take additional diuretic therapy. Other review of systems are negative. From his 07/11/13 visit with Xin Grewal: Last visit: 04/02 Feeling well post COMPLAINT CLERK. Remains active and busy. Has occ fatigue, [...] EP and has been scheduled for elective COMPLAINT CLERK- D upgrade with EF ~ 35 %and [...] he had a low heart rate in july need a pacemaker but he declined any further evaluation as he was asymptomatic. 2 weeks later, while [place], the patient felt weak, tired, with dizziness [...] available for my review. Since returning to [facility], thepatient actually feels well with no [...] this. There were no new medications or dpdq-zsg-nbimtsn therapy initiated during this timeframe. On discharge, [...] [facility] Model# 7122Q-58 cm Serial #[id number] Implanted 02/18/2013 Bipolar, steroid-tipped, active-fixation DF-4 lead Access: Axillary vein Location: Right ventricular apical septum (old) Atrial electrode: Medtronic, Model # 5568-52 cm Serial # [id number] Implanted 06/14/2012 Bipolar, steroid-tipped, active-fixation IS-1 lead Access: Not known Location Right atrium anterolateral Coronary sinus electrode: [facility] [employer] 1458Q/86 Serial number [id number] Implanted 02/18/2013 Quadripolar passive active fixation lead Access: Subclavian vein Location: Coronary sinus, posterolateral vein Pulse generator: [facility] [employer] [id number] Serial number [id number] Implanted 02/18/2013 COMPLAINT CLERK ICD Location: Subcutaneous Old ventricular lead : Medtronic 5075 Serial number [id number] (capped 02/18/2013) Old pulse generator: Medtronic ADDR01 Serial number [id number] (removed 02/18/2013) Detection and termination of ventricular tachyarrhythmias was performed with the ICD set to minimalsensitivity A T-Wave shock (4 S1 at 400 ms with a 310 ms delay and 1.2 Joule biphasic waveform) induced ventricular fibrillation that was successfully terminated with a 20 Joule shock (impedance 68 ohms). Generator change 03/25/16: New Pulse Generator [facility] [employer] [id number] Serial number [id number] Implanted 03/25/2016 COMPLAINT CLERK ICD Location: Subcutaneous ??? Non-ischemic cardiomyopathy Dilated [...] with left bundle branch block, PVCs, QRS tfwfwtlp=909 msec. Symptomatic CHB 06/13/12- s/p DDDR pacemaker 100% V paced rhythm SPEP/Free Light Chains- Results for JATINDER MORRELL Charo ( ) as of 07/10/2016 19:35 Ref. Range 10/19/2015 14:06 10/19/2015 14:07 [facility] Free Light Chains Latest Ref Range: 0.33 [...] Carvedilol ROSY/ARB Yes Losartan Spironolactone no Previously [id number], d/c secondary to side effects (hives), no rechallenge Amlodipine Yes Initiated 05/30 LA AFIB? no Anticoagulated AICD/Type COMPLAINT CLERK-D LBBB, EF dropped to 35%- 04/02/13 back up at ~ 50% post COMPLAINT CLERK--> EF=65% NSR with LBBB, QRS= 170 ms [...] 08/01/12 ??? LBBB (left bundle branch block) MPU=174 ms New Symptomatic CHB 05/30-->declined pacer at initial presentation while traveling -S/p temp pacer-->Permanent DDDR pacer -LVEF~ 50-55%, ICD not indicated, but at risk for V paced rhythm dyssynchrony ??? Complete heart block Symptomatic bradycardia with CHB and LBBB, HR in the 20-30s Initially seen at a local ER, pacemaker recommended, but declined While in ICU, [place], called SCA in cath report, but likely symptomatic bradycardia and CHB CHB- s/p temporary pacer 06/13/2012 - cath: Angiogram, mild irregularities of LAD, LCXF dominant, 30-40% mid RCA - No LV gram done S/p DDD-R Pacemaker Medtronic Adapta Dual Chamber Model # ADDR01, Serial number [id number] -[place], [place] ??? Pericarditis New chest discomfort ~ 2 weeks post DDD pacer implant Elevated C reactive protein; pericardial effusion->improved with NSAID and colchicine. Should be on colchicine until Nov 18, 2012 Elevated ProBNP, some clinical response with diuretics Stress Echo, LVEF=44%, no change, no definite ischemia, poor exercise tolerance, no pericardial effusion noted on stress Trivial pleural effusion on chest x-ray Elevated UDS=880 a-->3.8 AN ESR=53 on index presentation --> [...] Outpatient Prescriptions Marked as Taking for the 09/13/17 encounter (Office Visit) with Brady Ugarte MD Medication Sig Dispense Refill ??? carvedilol (COREG) 6.25 mg Tablet Take 1 tablet by mouth 2 times daily (with meals). 180 tablet3 ??? losartan (COZAAR) 50 mg Tablet Take 1.5 tablets by mouth daily. 30 tablet 11 ??? multivitamin (THERAGRAN) Tablet Take 1 tablet by mouth daily. ??? pravastatin (PRAVACHOL) 10 mg Tablet Take 10 mg by mouth daily. ??? ecsgfct-gacxfjkpcmzhs-sjuccuxl (EXCEDRIN MIGRAINE) 250-250-65 mg per tablet Take [...] Denies Fever, chills, night sweats. Weight stable. 2035 pounds. Sleep habits usually good. Eyes No visual [...] Signs: Wt Readings from Last 3 Encounters: 09/13/17 106.9 kg (235 lb 9.6 oz) 09/13/17 106.9 kg (235 lb 9.6 oz) 02/15/17 (!) 106.1 kg (233 lb 14.4 oz) Temp Readings from Last 3 Encounters: 03/25/16 36.3 ??C (97.3 ??F) (Temporal) 02/19/13 36.8 ??C (98.2 ??F) (Oral) 02/11/13 35.6 ??C (96 ??F) (Temporal) BP Readings from Last 3 Encounters: 09/13/17 160/90 09/13/17 (!) 171/92 02/15/17 156/86 Pulse Readings from Last 3 Encounters: 09/13/17 59 09/13/17 59 02/15/17 60 SpO2: [97 %] General -Alert, oriented, NAD. [...] H20, without AJR. No pericardial friction rub n Abdomen -soft, non-tender, no significant organomegaly, masses or bruits Extremities -without pretibial or ankle edema, warm to feet. Pulses 1-2+ Neuro -intact CN, motor LAB STUDIES: Recent Results (from the past 72 hour(s)) Comprehensive metabolic panel (non-fasting) Result Value Ref Range Glucose Lvl 86 65 - 199 mg/dL BUN 19 10 - 20 mg/dL Creatinine 1.00 0.80 - 1.50 mg/dL Sodium 140 135 - 145 mmol/L Potassium 4.7 3.5 - 5.0 mmol/L Chloride 100 98 - 107 mmol/L CO2 28 22 - 31 mmol/L Anion Gap 12 5 - 15 mmol/L Calcium 9.6 8.5 - 10.5 mg/dL Total Protein 6.6 6.1 - 8.0 gm/dL Albumin 4.2 3.2 - 5.2 gm/dL AST 15 0 - 39 unit/L ALT 15 0 - 55 unit/L Alk Phos 51 40 - 120 unit/L Total Bilirubin 0.7 0.2 - 1.3 mg/dL eGFR >60 >=60 eGFR 87 >=60 mL/min/1.73 m?? pro-Brain Natriuretic Peptide Result Value Ref Range ProBNP 119 <=125 pg/mL Lipid Panel Result Value Ref Range Chol, Total 169 mg/dL Triglycerides 132 mg/dL HDL 49 mg/dL LDL Cholesterol 94 mg/dL Chol/HDL Ratio 3.4 ratio Lipid Interpretation See Note Echocardiogram Transthoracic(Leb) Result Value Ref Range EF 57 ProBNP Date Value Ref Range Status 09/13/2017 119 <=125 pg/mL Final 02/15/2017 138 (H) <=125 pg/mL Final 07/11/2016 169 (H) <=125 pg/mL Final CARDIAC STUDIES: Echo [...] remainder of report for additional findings Echo 09/13/17 BP: 167/90 ?? SUMMARY: ?? [...] dated 07/11/2016: no significant change. ?? Device interrogation-reviewed personally-no delivered therapies, no significant arrhythmias. Heart rate = 60 bpm, very narrow histogram. Impedance alert in March 2017, likely related to a flu. 90% ventricular paced rhythm, 52% a paced-V paced. Discussed with EP cardiology, will change pacer heartrate activity level. PROBLEMS: LBBB (left bundle branch block) S/p COMPLAINT CLERK-D, 98% V Paced Pericarditis No recurrent chestpain Heart failure chronic systolic dysfunction Appears well compensated , euvolemic BP is high, repeat !60/90 mmHg, 130-160 mmHg at home Will increase Losartan to 100 mg daily, pt previously intolerant to spironolactone, possible candidate for eplerenone Possible candidate for Entresto, but with recovered LVEF, will defer Non-ischemic cardiomyopathy Stable, recovered LVEF on low dose b-makeda, high dose ARB, and previously intolerant to spironolactone, and COMPLAINT CLERK 98% V paced rhythm on COMPLAINT CLERK Biventricular implantable cardioverter-defibrillator in situ- [facility] No device issues, tachycardia, device therapies Impedance alert in 04/06, had a flu HR histogram blunted at HR=60, intrinsic Sinus rate=51 bpm, and 52 APaced- VPaced, 98% BiV paced ASSESSMENT: Mr. Waggoner again has been very stable from cardiovascular point of view. He has no recurrent chest pain. He appears to be well compensated and euvolemic. He has been advised to use ibuprofen or colchicine as needed and see if that will give him any relief. He seems euvolemic. His bloodpressure continues to be relatively elevated, despite increasing losartan to 75 mg daily to better control his blood pressure. Echocardiography demonstrates stable preserved LVEF, with low proBNP. Laboratories are stable. No device issues. I discussed his hypertension, and had suggested we increasehis losartan to 100 mg daily, he declines, and would like to recheck this in 2 weeks. We also discussed the options of adding eplerenone, alternative antihypertensive such as amlodipine, or changing his losartan to Entresto which he will consider, but declines at this time. Prior visit: He remains clinically stable from [...] possible upgrade of his pacemaker to a COMPLAINT CLERK-D. This could be related to his ventricular [...] discussed. -Continue carvedilol 6.25 mg twice daily. -Suggested we increase losartan from 75 mg-100 mg daily, patient prefers to wait and repeat blood pressure with his PCP. -Possible candidate for eplerenone, patient declines - -Possible candidate for Entresto-patient declines for now, will consider -If persistent hypertension, and he declines other medications, he may be a candidate for amlodipine or hydralazine/nitrates. The patient prefers not to uptitrate medications at this time. -Otherwise, no Changes in cardiac medications. 2. The following labs, referrals or other testing advised: - echocardiogram-done - Device interrogation today - done, reviewed - Routine laboratories- on ARB - Consider bone scan to rule out ATTR Amyloid in the future- discussed with patient, de declines 3. COUNSELING: Specific issues or questions addressed [...] PCP and other subspecialists as previously arranged Brady Ugarte MD, [facility] staff assistant Cardiology Director, Cardiovascular Critical Care Senior Product Consultant, Advanced Heart Failure and Cardiomyopathy Program [facility] documented in this encounter Miscellaneous Notes * Assessment & Plan Note - Brady Ugarte MD - 09/13/2017 10:54 AM EDTAssociated Problem(s): Biventricular implantable cardioverter-defibrillator in situ- [facility] No device issues, tachycardia, device therapies Impedance alert in 04/06, had a flu HR histogram blunted at HR=60, intrinsic Sinus rate=51 bpm, and 52 APaced- VPaced, 98% BiV paced * Assessment & Plan Note - Brady Ugarte MD - 09/13/2017 10:53 AM EDTAssociated Problem(s): Non-ischemic cardiomyopathy Stable, recovered LVEF on low dose b-makeda, high dose ARB, and previously intolerant to spironolactone, and COMPLAINT CLERK 98% V paced rhythm on COMPLAINT CLERK * Assessment & Plan Note - Brady Ugarte MD - 09/13/2017 10:51 AM EDTAssociated Problem(s): Heart failure chronic systolic dysfunction Appears well compensated , euvolemic BP is high, repeat !60/90 mmHg, 130-160 mmHg at home Will increase Losartan to 100 mg daily, pt previously intolerant to spironolactone, possible candidate for eplerenone Possible candidate for Entresto, but with recovered LVEF, will defer * Assessment & Plan Note - Brady Ugarte MD - 09/13/2017 10:50 AM EDTAssociated Problem(s): Pericarditis No recurrent chestpain * Assessment & Plan Note - Brady Ugarte MD - 09/13/2017 10:50 AM EDTAssociated Problem(s): LBBB (left bundle branch block) S/p COMPLAINT CLERK-D, 98% V Paced documented in this encounter Plan of Treatment Upcoming Encounters Date Type Department Care Team (Late st Contact Info) Description 02/26/2024 10:00 AM EST Hospital Encounter Non[place] [id number] Arrived documented as of this encounter Results * Lipid Panel (09/13/2017 9:00 AM EDT) Cholesterol, Total 169 mg/dL [facility] Comment: Lower Risk: <200 mg/dL Average Risk: 200-239 mg/dL Higher Risk: >cw=950 mg/dL Triglyceride 132 mg/dL [facility] Comment: Average Risk/Lower Risk: <150 mg/dL Borderline High Risk: 150-199 mg/dL High Risk: 200-499 mg/dL Very High Risk: >ot=145 mg/dL HDL Cholesterol 49 mg/dL [facility] Comment: Males: ?? Higher Risk: <40 mg/dL Females: ?? HIgher Risk: <50 mg/dL LDL Cholesterol 94 mg/dL [facility] Comment: Lowest Risk: <100 mg/dL Lower Risk: 100-129 mg/dL Borderline High Risk: 130-159 mg/dL High Risk: 160-189 mg/dL Very High Risk: >iy=080 mg/dL Cholesterol/HDL Ratio 3.4 ratio [facility] Lipid Interpretation See Note [facility] Comment: Lipid management should be guided by a patient? s ASCVD risk, goals and preferences. ACC/AHA Guidelines recommend high intensity statin if clinical ASCVD or LDL greater than or equal to 190 mg/dL. http://tinyurl.com/RAX-PWR-Deppehijb Adults aged 40-75 with LDL 70-189 mg/dL should have their 10 year ASCVD risk estimated with the ACC/AHA ASCVD risk senior software tester http://tools.acc.org/CZXMT-Docw-Krmpkrckm/ Statin should be discussed if risk greater [...] CHEMISTRY ORDERABLES Performing Organization Address [facility]/ZIP Co de Phone Number [facility] [place] [address] * pro-Brain Natriuretic Peptide (09/13/2017 9:00 AM EDT) NT-proBNP 119 <=125 pg/mL [facility] Blood specimen (specimen) 09/13/2017 9:00 AM EDT 09/13/2017 9:04 AM EDT Narrative Resulting Agency Comment Spec In Lab Brady Ugarte MD CHEMISTRY ORDERABLES Performing Organization Address [facility] Co de Phone Number [facility] [place] [address] * Comprehensive metabolic panel (non-fasting) (09/13/2017 9:00 AM EDT) Glucose 86 65 - 199 mg/dL [facility] Comment:Diabetes: >=200 mg/d L plus symptoms Blood Urea Nitrogen 19 10 - 20 mg/dL [facility] Creatinine 1.00 0.80 - 1.50 mg/dL [facility] Sodium 140 135 - 145 mmol/L [facility] Potassium 4.7 3.5 - 5.0 mmol/L [facility] Comment: Please note: ??Patients with WBC >100,000 may have falsely elevated Potassium levels. ??For accurate Potassium quantification in these patients send serum separator tube (gold top) for subsequent determinations. ??Contact the Clinical Chemistry Laboratory if there are any questions. Chloride 100 98 - 107 mmol/L [facility] Carbon Dioxide 28 22 - 31 mmol/L [facility] Anion Gap 12 5 - 15 mmol/L [facility] Calcium 9.6 8.5 - 10.5 mg/dL [facility] Protein, Total 6.6 6.1 - 8.0 gm/dL [facility] Albumin 4.2 3.2 - 5.2 gm/dL [facility] Aspartate Aminotransferase 15 0 - 39 unit/L [facility] Alanine Aminotransferase 15 0 - 55 unit/L [facility] Alkaline Phosphatase 51 40 - 120 unit/L [facility] Bilirubin, Total 0.7 0.2 - 1.3 mg/dL [facility] Est Glomerular Filtration Rate >60 >=60 [facility] Comment: The eGFR was calculated using the CKD-EPI equation. As with all creatinine based estimates of kidney function, eGFR values calculated with the CKD-EPI equation are not accurate in patients with acute kidney failure, extremes of body mass or the acutely ill. [email or web address] [email or web address] [place] eGFR 87 >=60 mL/min/1. 73 m?? [facility] Comment: The eGFR was calculated using the CKD-EPI equation. As with all creatinine based estimates of kidney function, eGFR values calculated with the CKD-EPI equation are not accurate in patients with acute kidney failure, extremes of body mass or the acutely ill. [email or web address] [place] [place] Blood specimen (specimen) 09/13/2017 9:00 AM EDT 09/13/2017 9:04 AM EDT Narrative Resulting Agency Comment Spec In Lab Brady Ugarte MD CHEMISTRY ORDERABLES [facility] [place] [address] documented in this encounter Visit Diagnoses Diagnosis Nonischemic cardiomyopathy Other primary cardiomyopathies Pericardial effusion Unspecified disease of pericardium Chronic systolic heart failure LBBB (left bundle branch block) Other left bundle branch block Pericarditis, unspecified chronicity, unspecified type Non-ischemic cardiomyopathy Other primary cardiomyopathies Biventricular implantable cardioverter-defibrillator in situ- [facility] documented in this encounter Care Teams Division Road Supervisor Relationship Specialty Start Date End Date Carlos Valdez MD [address] [place] [address] PCP - General 03/25/11 08/07/22 documented as of this encounter
--- OUTSIDE RECORDS SUMMARY | 2023-12-11 18:45 | XMS_ITS | Encounter Summary ---
[place] [address] Care Team Providers Care Foundation Relations Manager Name Role Phone Carlos Valdez MD Primary Care Provider [phone] Encounter Details Date Type Department Care Team (Late st Contact Info) Description 11/23/2017 Orders Only Cardiology at [address] [phone] Social History Tobacco Use Types Packs/Day Years [...] [facility] Hospital Encounter Non-In[place] [address] Arrived documented as of this encounter Procedures Procedure Name Priority Date/Time Associated Diagnosis Comments CARDIAC DEVICE CHECK - REMOTE SCHEDULED Routine 11/23/2017 2:00 AM EDT documented in this encounter Results * Cardiac device check - Remote Scheduled (11/23/2017 2:00 AM EDT) [facility] Implantable Pulse Generator Type Cardiac Resynchronization Therapy - Defibrillator [employer]CO Implantable Pulse Generator Model 3365-40 IDCO Implantable Pulse Generator Serial Number [id number] IDCO Implantable Pulse Generator Machine Bunch Maker [employer] IDCO Implantable Pulse Generator Implant Date IDCO Implantable Pulse Generator Implanter N/A IDCO Implantable Pulse Generator Implanter Contact Information N/A IDCO Implantable Pulse Generator Implanting Facility N/A IDCO Implantable Lead Special Function Sense and Pace in RA IDCO Implantable Lead Model 5568 IDCO Implantable Lead Serial Number [id number] IDCO Implantable Lead Machine Bunch Maker Medtronic IDCO Implantable Lead Implant Date IDCO Implantable Lead Polarity Type Bipolar Lead IDCO Implantable Lead Location Right Atrium IDCO Implantable Lead Connection Status Connected IDCO Implantable Lead Special Function Pace in LV IDCO Implantable Lead Model 1458Q Quartet(R) IDCO Implantable Lead Serial Number [id number] IDCO Implantable Lead Machine Bunch Maker [employer] IDCO Implantable Lead Implant Date IDCO Implantable Lead Polarity Type Quadripolar Lead IDCO Implantable Lead Location Left Ventricle IDCO Implantable Lead Connection Status Connected IDCO Implantable Lead Special Function Defibrillation in RV IDCO Implantable Lead Model 7122Q Durata(R) IDCO Implantable Lead Serial Number [id number] IDCO Implantable Lead Machine Bunch Maker [employer] IDCO Implantable Lead Implant Date IDCO Implantable Lead Polarity Type Bipolar Lead IDCO Implantable Lead Location Right Ventricle IDCO Implantable Lead Connection Status Connected IDCO Date Time Interrogation Session [id number] IDCO Type Interrogation Session Remote Scheduled IDCO Re-programmed During Session NO IDCO Date Time Previous Interrogation Session [id number] IDCO Clinician Name N/A IDCO Clinician Contact Information N/A IDCO Clinic Name N/A IDCO Battery Date Time of Measurements [id number] IDCO Battery Status Middle of Service IDCO Battery Voltage 2.96 V IDCO Battery Remaining Longevity 41 mo IDCO Battery Remaining Percentage 75.0 % IDCO Battery CHIEF SERVICE DISPATCHER Trigger When current voltage < 2.59 volts IDCO Capacitor Charge Type Reformation IDCO Capacitor Last Charge Date Time [id number] IDCO Capacitor Charge Time 9.5 s IDCO Capacitor Charge Energy 40 J IDCO Lead Channel Measurements Date and Time Start [id number] IDCO Lead Channel Measurements Date and Time End [id number] IDCO Lead Channel Sensing Intrinsic Amplitude 2.1 mV IDCO Lead Channel Sensing Polarity Bipolar IDCO Lead Channel Pacing Threshold Amplitude 1.75 V IDCO Lead Channel Pacing Threshold Pulse Width 1.0 ms IDCO Lead Channel Pacing Threshold Polarity Bipolar IDCO Lead Channel Pacing Threshold Measurement Method Apprentice Stylist Manual IDCO Lead Channel Impedance Value 350 Ohm IDCO Lead Channel Impedance Polarity Bipolar IDCO Lead Channel Status Null IDCO Lead Channel Measurements Date and Time Start [id number] IDCO Lead Channel Measurements Date and Time End [id number] IDCO Lead Channel Sensing Intrinsic Amplitude 11.6 mV IDCO Lead Channel Sensing Polarity Bipolar [...] Lead Channel Measurements Date and Time Start [id number] IDCO Lead Channel Measurements Date and Time End [id number] IDCO Lead Channel Pacing Threshold Amplitude 1.125 V IDCO Lead Channel Pacing Threshold Pulse Width 0.5 ms IDCO Lead Channel Pacing Threshold Polarity Bipolar IDCO Lead Channel Pacing Threshold Measurement Method Device Automatic IDCO Lead Channel Impedance Value 900 Ohm IDCO Lead Channel Impedance Polarity Bipolar [...] Lead High Voltage Channel Status Null IDCO VAPOR COATER LV-RV Delay 30 ms IDCO Ventricular chambers paced during VAPOR COATER pacing. BiV IDCO Magnet Response Normal IDCO [...] IDCO MDC_IDC_SET_LEAD HVCHNL_SHOCK_VEC TOR_ANODE_ELECTR ODE_1 Coil IDCO [facility] [place]_SET_LEAD HVCHNL_SHOCK_VEC TOR_CATHODE_LOCA TION_1 Other IDCO [facility] [place]C_SET_LEAD HVCHNL_SHOCK_VEC TOR_CATHODE_ELEC TRODE_1 Can [...] End IDCO Statistic Atrial Heart Rate Mean 69 {beats} /min IDCO Statistic Atrial Heart Rate Max 240 {beats} /min IDCO Statistic Atrial Heart Rate Min 50 {beats} /min IDCO Statistic Ventricular Heart Rate Max 230 {beats} /min IDCO Statistic Ventricular Heart Rate Mean 69 {beats} /min IDCO Statistic Ventricular Heart Rate Min 50 {beats} /min IDCO Grabiel Statistic Date Time End IDCO Grabiel Statistic Date Time Start IDCO Grabiel Statistic RA Percent Paced 66.0 % IDCO Grabiel Statistic AP COUNSELING SERVICES MANAGER Percent 67.0 % IDCO Grabiel Statistic COUNSELING SERVICES MANAGER Percent 33.0 % IDCO Grabiel Statistic AP VS Percent [...] {switch es} IDCO Atrial Tachy Statistic AT/AF [place] Percent 0 % IDCO VAPOR COATER Statistic Date Time End IDCO VAPOR COATER Statistic Date Time Start IDCO VAPOR COATER Statistic VAPOR COATER Percent Paced 99.0 % IDCO Therapy Statistic Recent Date Time End IDCO Therapy Statistic Recent Date Time Start IDCO Therapy Statistic Recent Shocks Delivered 0 {shocks } IDCO Therapy Statistic Recent Shocks Aborted 0 {shocks } IDCO Therapy Statistic Recent ATP Delivered 0 {seq} IDCO Episode Statistic Recent Date Time End [id number] IDCO Episode Statistic Recent Date Time Start [id number] IDCO Anatomical Region Laterality Modality Other 11/23/2017 2:00 AM EDT Physician Cardiology MD IMPLANTABLE CARD IAC DEVICE documented in this encounter Visit Diagnoses Not on filedocumented in this encounter Care Teams Foundation Relations Manager Relationship Specialty Start Date End Date Carlos Valdez MD [address] [place] [address] PCP - General 03/25/11 08/07/22 documented as of this encounter
--- OUTSIDE RECORDS SUMMARY | 2023-12-11 18:45 | XMS_ITS | Encounter Summary ---
[place] [address] Care Team Providers Care Hand Box Coverer Name Role Phone Charli Jaramillo MD Primary Care Provider [phone] Reason for Referral * Diagnostic Test (Routine) - Closed Specialty Diagnoses / Procedures Referred By Contac t Referred To Contact Cardiology Diagnoses Chronic systolic heart failure Dilated cardiomyopathy Procedures Echocardiogram Transthoracic(Leb) Xin Grewal APRN [facility] [place] [address] [facility] [place] [address] Referral ID Status Reason Start Date Expiration Date V isits Requested Visits Authorized [id number] Closed Specialty Service Requested 10/01/2018 11/29/2018 1 1 Reason for Visit * Diagnostic Test (Routine) - Closed Specialty Diagnoses / Procedures Referred By Contac t Referred To Contact Cardiology Diagnoses Chronic systolic heart failure Dilated cardiomyopathy Procedures Echocardiogram Transthoracic(Leb) Xin Grewal APRN [facility] [place] [address] [facility] [place] [address] Referral ID Status Reason Start Date Expiration Date V isits Requested Visits Authorized [id number] Closed Specialty Service Requested 10/01/2018 11/29/2018 1 1 Encounter Details Date Type Department Care Team (Latest Contact Info) Description 10/05/2018 11:32 AM EDT - 10/05/2018 11:59 PM EDT Hospital Encounter [place] [address] Chronic systolic heart failure; Dilated cardiomyopathy Discharge Disposition: Home Social History Tobacco [...] Tablet Take 1 tablet by mouth daily. vbqqxbf-sglbyoggewues-t affeine (EXCEDRIN MIGRAINE) 250-250-65 mg per tablet [...] by mouth nightly. 30 tablet 0 01/11/2011 losartan (COZAAR) 100 mg Tablet Take 1 tablet by mouth daily. 90 tablet 3 09/24/2018 10/29/2019 carvedilol (COREG) 6.25 mg Tablet Take 1 tablet by mouth 2 times daily (with meals). 180 tablet 3 08/08/2018 05/09/2019 documented as of this encounter Plan of Treatment Upcoming Encounters Date Type Department Care Team (Late st Contact Info) Description 02/26/2024 10:00 AM EST Hospital Encounter [place] [address] Arrived documented as of this encounter Procedures Procedure Name Priority Date/Time Associated Diagnosis Comments ECHO COMPLETE Routine 10/05/2018 1:11 PM EDT Chronic systolic heart failure Dilated cardiomyopathy documented in this encounter Results * ECHO COMPLETE (10/05/2018 1:11 PM EDT) EF 55 HEARTLAB SYSTEM Anatomical Region Laterality Modality Other 10/05/2018 Narrative 10/05/2018 1:30 PM EDT Amended Report Procedure: ?Transthoracic Echocardiogram Patient: ?PORSCHE Mancilla ? (Age): 1945(73y) Med Rec#: ? [id number] ?Sex: ?M ? [place] Loc: ? [facility] [place]Ht / Wt: ??201(cm)/106(kg) Pt. Loc: ?BSA: ?2.44 Study Date: ?? 10/05/2018 ?Pt. Type: Outpatient Tape: ? Referring: Xin Grewal Referring: CHARLI JARAMILLO G Reading: Carter Guzmán ([id number]) [employer]: Lyndsey Dawn Diagnosis: *Chronic systolic (congestive) heart failure (I50.22) *Dilated cardiomyopathy (I42.0) BP: ? 156/103 SUMMARY: 1. There is normal global left ventricular systolic function. ??The quantitative left ventricular ejection fraction by biplane Ramirez's method is 55%. ??The ??basal inferior, and ??mid inferior wall segments are hypokinetic (score 2). 2. Right ventricular chamber size, wall thickness, and systolic function are within normal limits. 3. The left atrium is moderately dilated. 4. There is no hemodynamically significant valve disease. 5. Compared with sutdy dated 08/2017, no significant change is noted. Findings ? : Study Quality: ? Technically limited Left Ventricle: ? The left ventricular chamber size is normal. ?Left ventricular wall thickness is normal. ?There is normal global left ventricular systolic function. ?The quantitative left ventricular ejection fraction by biplane Ramirez's method is 55%. ?There are left ventricular segmental wall motion abnormalities present, as shown in the diagram below. ?Doppler assessment is consistent with normal left sided filling pressure. ?The ??basal inferior, and ??mid inferior wall segments are hypokinetic (score 2). ?Overall wallmotion score index is ??1.13 Left Atrium: ? The left atrium is moderately dilated. Right Ventricle: ? Right ventricular chamber size, wall thickness, and systolic function are within normal limits. ?A pacemaker wire is visualized in the right ventricle. ?No pulmonary hypertension is noted. ?The estimated pulmonary artery systolic pressure is 23 mmHg. ?The estimated right atrial pressure is 3 mmHg. Right Atrium: ? The right atrium is mildly dilated. ?A pacemaker wire is visualized in the right atrium. Aortic Valve: ? The aortic valve is tricuspid. ?The aortic valve leaflets are mildly thickened. ?Systolic excursion of the aortic valve is normal. ?There is aortic annular calcification. ?There is no evidence of aortic valve stenosis. ?There is no evidence of aortic regurgitation. Mitral Valve: ? The mitral valve appears normal in structure and function. ?There is no evidence of mitral valve leaflet prolapse. ?There is posterior mitral annular calcification. ?There is trace mitral regurgitation present. Tricuspid Valve: ? The tricuspid valve appears normal in structure and function. ?There is trace tricuspid regurgitation present. Pulmonic Valve: ? The [...] the inferior vena cava dimension. Misc: ? There is no hemodynamically significant valve disease. ?See remainder of report for additional findings. ?Two-dimensional echo, spectral Doppler and color Doppler performed. Chambers 2D ?Value ?Units (Range) ? IVSd (2D) ? 1.1 ?cm ? LVPWd (2D) ?0.8 ?cm ? IVS:LVPW ratio (2D) 1.4 ?ratio ? RWT (2D) ?0.3 ?ratio ? RWT PW (2D) ? 0.3 ?ratio ? LVIDd (2D) ?5.5 ?cm ? LVIDs (2D) ?4.3 ?cm ? LVIDd (2D) index ?2.2 ?cm/m2 ? LVIDs (2D) index ?1.8 ?cm/m2 ? LV FS (2D) ?22 ? % ? EF Teichholz (2D) ?? 44 ? % ? Ao root diameter (2D4 ?cm (2.1 - 3.6) ? Volumes/Mass ?Value ?Units (Range) ? LA Area 4 CH ?27 ? cm2 (<21) ? RA AREA 4CH ? 23 ? cm2 ? LA ESV BP (MOD) inde44 ? ml/m2 ? LV ESV SP 4CH (MOD) 73 ? ml ? LV ESV SP 2CH (MOD) 77 ? ml ? LV EDV BP ? 168 ?ml ? LV ESV BP ? 76 ? ml ? LV EDV BP index ? 68.9 ? ml/m2 ? LV ESV BP index ? 31.2 ? ml/m2 ? BP EF (MOD) ? 55 ? % ? LV mass (2D) ?194.2 ?g ? LV mass (2D) index ??79.6 ? g/m2 ? Diastolic/Systolic Function ?Value ?Units (Range) ? MV E-wave Vmax ?0.5 ?m/sec ? MV deceleration abif339 ?msec ? MV A-wave Vmax ?0.6 ?m/sec ? MV E:A ratio ?0.8 ?ratio ? LV septal e' Vmax ?? 0.1 ?m/sec ? LV lateral e' Vmax ??0.1 ?m/sec ? LV average e' Vmax ??0.1 ?m/sec ? LV E:e' septal ratio7.9 ?ratio ? LV E:e' lateral rati10.5 ? ratio ? LV average E:e' rati8.8 ?ratio ? Tricuspid Valve ?Value ?Units (Range) ? TR Vmax ? 2.2 ?m/sec ? TR peak gradient ?20.1 ? mmHg ? RAP ? 3 ?mmHg ? RVSP ?23 ? mmHg ? Wall Motion: Segment Name ?Rest ? Base-Anteroseptal ?? Normal ? Base-Anterior ? Normal ? Base-Anterolateral ??Normal ? Base-Posterolateral Normal ? Base-Inferior ? Hypokinetic ? Base-Inferoseptal ?? Normal ? Mid-Anteroseptal ?Normal ? Mid-Anterior ?Normal ? Mid-Anterolateral ?? Normal ? Mid-Posterolateral ??Normal ? Mid-Inferior ?Hypokinetic ? Mid-Inferoseptal ?Normal ? Percival-Septal ? Normal ? Percival-Anterior ? Normal ? Percival-Lateral ?Normal ? Percival-Inferior ? Normal ? Percival-Tip ?Normal ? This report has been electronically signed by: Carter Guzmán M.D. ? 10/05/2018 13:29:34 Images reviewed and interpretation verified [facility] Cardiac Ultrasound Laboratory Procedure Note Carter Guzmán MD - 10/05/2018 Amended Report Procedure: Transthoracic Echocardiogram Patient: PORSCHE ROBERTS(Age): 1945(73y) Med Rec#: [id number] Sex: M Site Loc: [facility] Ht / Wt: 201(cm)/106(kg) Pt. Loc: BSA: 2.44 Study Date: 10/05/2018 Pt. Type: Outpatient Tape: Referring: Xin Grewal Referring: CHARLI JARAMILLO G Reading: Carter Guzmán ([id number]) [employer]: Lyndsey Dawn Diagnosis: *Chronic systolic (congestive) heart failure (I50.22) *Dilated cardiomyopathy (I42.0) BP: 156/103 SUMMARY: 1. There is normal global left ventricular [...] hemodynamically significant valve disease. [facility]. [facility] no significant change is noted. Findings : Study Quality: Technically limited Left Ventricle: The left ventricular chamber size is normal. Left ventricular wall thickness is normal. There is normal global left ventricular systolic function. The quantitative left ventricular ejection fraction by biplane Ramirez's method is 55%. There are left ventricular segmental wall motion abnormalities present, as shown in the diagram below. Doppler assessment is consistent with normal left sided filling pressure. The basal inferior, and mid inferior wall segments are hypokinetic (score 2). Overall wallmotion score index is 1.13 Left Atrium: The left atrium is moderately dilated. Right Ventricle: Right ventricular chamber size, wall thickness, and systolic function are within normal limits. A pacemaker wire is visualized in the right ventricle. No pulmonary hypertension is noted. The estimated pulmonary artery systolic pressure is 23 mmHg. The estimated right atrial pressure is 3 mmHg. Right Atrium: The right atrium is mildly dilated. A pacemaker wire is visualized in the right atrium. Aortic Valve: The aortic valve is tricuspid. The aortic valve leaflets are mildly thickened. Systolic excursion of the aortic valve is normal. There is aortic annular calcification. There is no evidence of aortic valve stenosis. There is no evidence of aortic regurgitation. Mitral Valve: The mitral valve appears normal in structure and function. There is no evidence of mitral valve leaflet prolapse. There is posterior mitral annular calcification. There is trace mitral regurgitation present. Tricuspid Valve: The tricuspid valve appears normal in structure and function. There is trace tricuspid regurgitation present. Pulmonic Valve: The pulmonic [...] in the inferior vena cava dimension. Misc: There is no hemodynamically significant valve disease. See remainder of report for additional findings. Two-dimensional echo, spectral Doppler and color Doppler performed. Chambers 2D Value Units (Range) IVSd (2D) 1.1 cm LVPWd (2D) 0.8 cm IVS:LVPW ratio (2D) 1.4 ratio RWT (2D) 0.3 ratio RWT PW (2D) 0.3 ratio LVIDd (2D) 5.5 cm LVIDs (2D) 4.3 cm LVIDd (2D) index 2.2 cm/m2 LVIDs (2D) index 1.8 cm/m2 LV FS (2D) 22 % EF Teichholz (2D) 44 % Ao root diameter (2D4 cm (2.1 - 3.6) Volumes/Mass Value Units (Range) LA Area 4 CH 27 cm2 (<21) RA AREA 4CH 23 cm2 LA ESV BP (MOD) inde44 ml/m2 LV ESV SP 4CH (MOD) 73 ml LV ESV SP 2CH (MOD) 77 ml LV EDV BP 168 ml LV ESV BP 76 ml LV EDV BP index 68.9 ml/m2 LV ESV BP index 31.2 ml/m2 BP EF (MOD) 55 % LV mass (2D) 194.2 g LV mass (2D) index 79.6 g/m2 Diastolic/Systolic Function Value Units (Range) MV E-wave Vmax 0.5 m/sec MV deceleration cisc231 msec MV A-wave Vmax 0.6 m/sec MV E:A ratio 0.8 ratio LV septal e' Vmax 0.1 m/sec LV lateral e' Vmax 0.1 m/sec LV average e' Vmax 0.1 m/sec LV E:e' septal ratio7.9 ratio LV E:e' lateral rati10.5 ratio LV average E:e' rati8.8 ratio Tricuspid Valve Value Units (Range) TR Vmax 2.2 m/sec TR peak gradient 20.1 mmHg RAP 3 mmHg RVSP 23 mmHg Wall Motion: Segment Name Rest Base-Anteroseptal Normal Base-Anterior Normal Base-Anterolateral Normal Base-Posterolateral Normal Base-Inferior Hypokinetic Base-Inferoseptal Normal Mid-Anteroseptal Normal Mid-Anterior Normal Mid-Anterolateral Normal Mid-Posterolateral Normal Mid-Inferior Hypokinetic Mid-Inferoseptal Normal Percival-Septal Normal Percival-Anterior Normal Percival-Lateral Normal Percival-Inferior Normal Percival-Tip Normal This report has been electronically signed by: Carter Guzmán M.D. 10/05/2018 13:29:34 Images reviewed and interpretation verified [facility] Cardiac Ultrasound Laboratory Xin Grewal APRN ECHO ORDERABLES documented in this encounter Visit Diagnoses Diagnosis Chronic systolic heart failure Dilated cardiomyopathy Other primary cardiomyopathies documented in this encounter Care Teams Hand Box Coverer Relationship Specialty Start Date End Date Charli Jaramillo MD [address] [place] [address] PCP - General 03/25/11 08/07/22 documented as of this encounter
--- OUTSIDE RECORDS SUMMARY | 2023-12-11 18:45 | XMS_ITS | Encounter Summary ---
Author Organization [facility] [place] [address] Care Team Providers Care Fast Food Cook Name Role Phone Carlos Valdez MD Primary Care Provider [phone] Reason for Visit * Reason Onset Date Comments Medication Refill 09/21/2018 Encounter Details Date Type Department Care Team (Late st Contact Info) Description 09/21/2018 Refill Cardiology at [address] [phone] Xin Grewal, BRISKET PULLER [facility] [place] [address] Medication Refill Social History Tobacco Use Types [...] AM EST Hospital Encounter Non-Invasive [place] [phone] Arrived documented as of this encounter Visit Diagnoses Not on filedocumented in this encounter Care Teams Fast Food Cook Relationship Specialty Start Date End Date Carlos Valdez MD [address] [place] [address] [address] [place] [address] PCP - General 03/25/11 08/07/22 documented as of this encounter
--- OUTSIDE RECORDS SUMMARY | 2023-12-11 18:45 | XMS_ITS | Encounter Summary ---
[place] [address] Care Team Providers Care Dance Studio Manager Name Role Phone Carlos Valdez MD Primary Care Provider [phone] Reason for Visit * Reason Comments Cardiomyopathy Encounter Details Date Type Department Care Team (Late st Contact Info) Description 02/15/2017 10:00 AM EST Office Visit Cardiology at [address] [address] Maki Gamez RN Non-ischemic cardiomyopathy Social History Tobacco Use [...] Time Taken Comments Blood Pressure 156/86 02/15/2017 9:49 AM EST Pulse 60 02/15/2017 9:49 AM EST Temperature - - Respiratory Rate - - Oxygen Saturation 97% 02/15/2017 9:49 AM EST Inhaled Oxygen Concentration - - Weight 106.1 kg (233 lb 14.4 oz) 02/15/2017 9:49 AM EST Height 198.1 cm (6' 6) 02/15/2017 9:49 AM EST Body Mass Index 27.03 02/15/2017 9:49 AM EST documented in this encounter Progress Notes * Maki Gamez RN - 02/15/2017 10:00 AM EST Images from the original note were not included. Clinical Electrophysiology Device Service Note Pacemaker Clinic Follow-Up Jimmie Mccauley is a 71 y.o. male who presents today in the device clinic for DRAGLINE MECHANIC- D programming evaluation, with iterative changes made to the device for testing purposes. Hx: He had an elective generator replacement done secondary to a recall 03/25/2016. He originally had a pacemaker implanted 06/14/2012 for CHB. This was completed at [facility] in [place], [place]. He underwent upgrade to DRAGLINE MECHANIC-D on 02/18/2013 for CHF, CM, ventricular dyssynchrony. Custom Feed Corn Operator: Bardy Ugarte MD Final Parameters at Implant: (Old) Ventricular electrode: [employer] Model# 7122Q-58 cm Serial #[id number] Implanted 02/18/2013 (old) Atrial electrode: [employer], Model # 5568-52 cm Serial # [id number] Implanted 06/14/2012 (old) Coronary sinus electrode: [employer] 1458Q/86 Serial number [id number] Implanted 02/18/2013 New Pulse Generator: [employer] [id number] Serial number [id number] Implanted 03/25/2016 Follow Up Today: Settings: Bi-V DDDR 70/130/130, PAV 200 ms, ROSAURA 150 ms, LV->RV 30 ms, mode switch 180 bpm Underlying rhythm: SR 70 bpm with CHB Heart rate histograms: Good distribution Atrial lead impedance: 390 ohms RV lead impedance: 390 ohms LV lead impedance: 860 ohms M3-M2 RV shock impedance 70 ohms RV to Can Lead impedance trends stable P wave: 2.3 mV R wave: None at VVI 40 Atrial capture threshold: 2.0 V @ 1.0 ms. Chronically elevated in former pacemaker as well. A Cap Confirm was NOT recommended RV capture threshold: 0.75 V at 0.5 ms. RV Cap Confirm recommended LV capture threshold: 1.25 V at 0.5 ms M3-M2. LV Cap Confirm recommended. Chronically elevated Pacing percentages: AP 37 %; PRODUCTION COORDINATOR >99% Mode switch episodes: inaccurate- none VHR: None Battery: 23 uA, 86 %, est 3.8-4.7 years to MARY BETH Charge time: 8.9 sec 11/24/2016 Changes made this session:none Incision assessment: L chest healed, device is prominent. Skin intact Plan: Remote in 3 months, RTC in [address] Ugarte Provider: Maki Gamez RN Attending: Dr. Euceda documented in this encounter Plan of Treatment Upcoming Encounters Date Type Department Care Team (Late st Contact Info) Description 02/26/2024 10:00 AM EST Hospital Encounter Non-Invasive [place] [address] Arrived documented as of this encounter Visit Diagnoses Diagnosis Non-ischemic cardiomyopathy Other primary cardiomyopathies documented in this encounter Care Teams Dance Studio Manager Relationship Specialty Start Date End Date Carlos Valdez MD [address] [place] [address] PCP - General 03/25/11 08/07/22 documented as of this encounter
--- OUTSIDE RECORDS SUMMARY | 2023-12-11 18:45 | XMS_ITS | Encounter Summary ---
[place] [address] Care Team Providers Care Elevator Attendant Name Role Phone Carlos Valdez MD Primary Care Provider [phone] Encounter Details Date Type Department Care Team (Late st Contact Info) Description 05/23/2017 Orders Only Cardiology at [address] [phone] Social History Tobacco Use Types Packs/Day Years [...] AM EST Hospital Encounter [place] [phone] Arrived documented as of this encounter Procedures Procedure Name Priority Date/Time Associated Diagnosis Comments CARDIAC DEVICE CHECK - REMOTE SCHEDULED Routine 05/23/2017 2:09 AM EST documented in this encounter Results * Cardiac device check - Remote Scheduled (05/23/2017 2:09 AM EST) [facility] Implantable Pulse Generator Type Cardiac Resynchronization Therapy - Defibrillator [employer] Implantable Pulse Generator Model 3365-40 [employer] Implantable Pulse Generator Serial Number [id number] [employer] Implantable Pulse Generator Sheet Sorter [employer] ID[employer] Implantable Pulse Generator Implant Date [employer] Implantable Pulse Generator Implanter N/A [employer] Implantable Pulse Generator Implanter Contact Information N/A [employer] Implantable Pulse Generator Implanting Facility N/A [facility] Implantable Lead Special Function Sense and Pace in RA IDCO Implantable Lead Model 5568 [employer] Implantable Lead Serial Number [id number] IDCO Implantable Lead Sheet Sorter Medtronic IDCO Implantable Lead Implant Date IDCO Implantable Lead Polarity Type Bipolar Lead IDCO Implantable Lead Location Right Atrium IDCO Implantable Lead Connection Status Connected [employer]CO Implantable Lead Special Function Pace in LV [employer]CO Implantable Lead Model 1458Q Quartet(R) [employer] Implantable Lead Serial Number [id number] [employer] Implantable Lead Sheet Sorter [employer] IDCO Implantable Lead Implant Date IDCO Implantable Lead Polarity Type Quadripolar Lead IDCO Implantable Lead Location Left Ventricle IDCO Implantable Lead Connection Status Connected [employer] Implantable Lead Special Function Defibrillation in RV [employer] Implantable Lead Model 7122Q Durata(R) [employer] Implantable Lead Serial Number [id number] [employer] Implantable Lead Sheet Sorter [employer] IDCO Implantable Lead Implant Date IDCO Implantable Lead Polarity Type Bipolar Lead IDCO Implantable Lead Location Right Ventricle IDCO Implantable Lead Connection Status Connected IDCO Date Time Interrogation Session [id number] IDCO Type Interrogation Session Remote Scheduled [facility]CO Re-programmed During Session NO IDCO Date Time Previous Interrogation Session [id number] IDCO Clinician Name N/A IDCO Clinician Contact Information N/A IDCO Clinic Name N/A IDCO Battery Date Time of Measurements [id number] IDCO Battery Status Middle of Service IDCO Battery Voltage 2.98 V IDCO Battery Remaining Longevity 46 mo IDCO Battery Remaining Percentage 82.0 % IDCO Battery HOT PLATE PLY[employer]OD PRESS OPERATOR Trigger When current voltage < 2.59 volts IDCO Capacitor Charge Type Reformation IDCO Capacitor Last Charge Date Time [id number] IDCO Capacitor Charge Time 9.4 s IDCO Capacitor Charge Energy 40 J IDCO Lead Channel Measurements Date and Time Start [id number] IDCO Lead Channel Measurements Date and Time End [id number] IDCO Lead Channel Sensing Intrinsic Amplitude 3.1 mV IDCO Lead Channel Sensing Polarity Bipolar IDCO Lead Channel Pacing Threshold Amplitude 2.0 V IDCO Lead Channel Pacing Threshold Pulse Width 1.0 ms IDCO Lead Channel Pacing Threshold Polarity Bipolar IDCO Lead Channel Pacing Threshold Measurement Method General Clerk Manual IDCO Lead Channel Impedance Value 350 Ohm IDCO Lead Channel Impedance Polarity Bipolar IDCO Lead Channel Status Null IDCO Lead Channel Measurements Date and Time Start [id number] IDCO Lead Channel Sensing Intrinsic Amplitude 12.0 [...] Lead Channel Measurements Date and Time End [id number] IDCO Lead Channel Measurements Date and Time Start [id number] IDCO Lead Channel Measurements Date and Time End [id number] IDCO Lead Channel Pacing Threshold Amplitude 1.125 V IDCO Lead Channel Pacing Threshold Pulse Width 0.5 ms IDCO Lead Channel Pacing Threshold Polarity Bipolar IDCO Lead Channel Pacing Threshold Measurement Method Device Automatic IDCO Lead Channel Impedance Value 890 Ohm IDCO Lead Channel Impedance Polarity Bipolar [...] Lead High Voltage Channel Status Null IDCO CIRCUIT RIDER LV-RV Delay 30 ms IDCO Ventricular chambers paced during CIRCUIT RIDER pacing. BiV IDCO Magnet Response Normal IDCO [...] mV IDCO Lead Channel Setting Pacing Amplitude 4.0 V IDCO Lead Channel Setting Pacing Amplitude 2.0 V IDCO Lead Channel Setting Pacing Amplitude 2.125 V IDCO Lead Channel Setting Pacing Pulse [...] IDCO MDC_IDC_SET_LEAD HVCHNL_SHOCK_VEC TOR_ANODE_ELECTR ODE_1 Coil IDCO [facility]_IDC_SET_LEAD HVCHNL_SHOCK_VEC TOR_CATHODE_LOCA TION_1 Other IDCO [facility]_IDC_SET_LEAD HVCHNL_SHOCK_VEC TOR_CATHODE_ELEC TRODE_1 Can IDCO Grabiel Setting Mode (NBG Code) DDD IDCO Grabiel Setting Mode (Vendor Specific) DDD IDCO Grabiel Setting Lower Rate Limit 60 [...] End IDCO Statistic Heart Rate Date Time End IDCO Statistic Heart Rate Date Time Start IDCO Statistic Atrial Heart Rate Min 50 {beats} /min IDCO Statistic Atrial Heart Rate Mean 68 {beats} /min IDCO Statistic Atrial Heart Rate Max 330 {beats} /min IDCO Statistic Ventricular Heart Rate Min 50 {beats} /min IDCO Statistic Ventricular Heart Rate Mean 69 {beats} /min IDCO Statistic Ventricular Heart Rate Max 240 {beats} /min IDCO Grabiel Statistic Date Time End IDCO Grabiel Statistic Date Time Start IDCO Grabiel Statistic RA Percent Paced 50.0 % IDCO Grabiel Statistic AP [employer] Percent 52.0 % IDCO Grabiel Statistic [employer] Percent 45.0 % IDCO Grabiel Statistic AP VS Percent 1.0 % IDCO Grabiel Statistic VS Percent 1.0 % IDCO Atrial Tachy Statistic Date Time Start IDCO Atrial Tachy Statistic Date Time End IDCO Atrial Tachy Statistic Percent Time In Mode Switch 0 % IDCO Atrial Tachy Statistic Number Of Mode Switches 0 {switch es} IDCO Atrial Tachy Statistic Number Of Mode Switches Per Day 0 {switch es} IDCO Atrial Tachy Statistic AT/AF [place] Percent 0 % IDCO CIRCUIT RIDER Statistic Date Time Start IDCO CIRCUIT RIDER Statistic Date Time End IDCO CIRCUIT RIDER Statistic CIRCUIT RIDER Percent Paced 97.0 % IDCO Therapy Statistic Recent Date Time End IDCO Therapy Statistic Recent Date Time Start IDCO Therapy Statistic Recent Shocks Delivered 0 {shocks } IDCO Therapy Statistic Recent Shocks Aborted 0 {shocks } IDCO Therapy Statistic Recent ATP Delivered 0 {seq} IDCO Episode Statistic Recent Date Time Start [id number] IDCO Episode Statistic Recent Date Time End [id number] IDCO Anatomical Region Laterality Modality Other 05/23/2017 2:09 AM EST Physician Cardiology MD IMPLANTABLE CARD IAC DEVICE documented in this encounter Visit Diagnoses Not on filedocumented in this encounter Care Teams Elevator Attendant Relationship Specialty Start Date End Date Carlos Valdez MD [address] [place] [address] PCP - General 03/25/11 08/07/22 documented as of this encounter
--- OUTSIDE RECORDS SUMMARY | 2023-12-11 18:46 | XMS_ITS | Encounter Summary ---
Author Organization [facility] [place] [address] Care Team Providers Care Shoeshiner Name Role Phone Carlos Valdez MD Primary Care Provider [phone] Reason for Visit * Reason Comments Follow-up Encounter Details Date Type Department Care Team (Latest Contact Info) Description 02/03/2015 9:30 AM EST Office Visit Cardiology at [address] [phone] Tino Laird PA [facility] [place] [address] Biventricular implantable cardioverter-defibrill ator in situ; Complete heart block Social History Tobacco Use Types Packs/Day Years [...] Sign Reading Time Taken Comments Blood Pressure 140/76 02/03/2015 9:21 AM EST Pulse 62 02/03/2015 9:21 AM EST regular Temperature - - Respiratory Rate - - Oxygen Saturation 97% 02/03/2015 9:2 1 AM EST at rest, room air Inhaled Oxygen Concentration - - Weight 105.2 kg (232 lb) 02/03/2015 9:2 1 AM EST Height 195.6 cm (6' 5) 02/03/2015 9:21 AM EST Body Mass Index 27.51 02/03/2015 9:21 AM EST documented in this encounter Patient Instructions * Patient Instructions* Tino Laird PA - 02/03/2015 10:13 AM EST PEDRO in three months EP device clinic in six months documented in this encounter Progress Notes * Tino Laird PA - 02/03/2015 10:02 AM EST Cardiac Electrophysiology Implanted Device Interrogation Note Jimmie Mccauley is a 69 y.o. man who presents today for echo, GLUE MOUNTER OPERATOR-D interrogation and follow up with Dr. Ugarte. He originally had a pacemaker implanted 06/14/[address] [facility] in [place], [place]. He then underwent upgrade to GLUE MOUNTER OPERATOR-D on 02/18/2013 for CHF, CM, ventricular dyssynchrony. Patient Active Problem List Diagnosis Code ??? Non-ischemic cardiomyopathy I42.9 ??? Heart failure chronic systolic dysfunction I50.9 ??? Alcohol use F10.99 ??? LBBB (left bundle branch block) I44.7 ??? Complete heart block I44.2 ??? HX SUDDEN CARDIAC ARREST ??? Pericarditis I31.9 ??? Pulmonary embolism I26.99 ??? 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 R07.9 ??? Biventricular implantable cardioverter-defibrillator in situ Z95.810 Device Data: New Ventricular electrode: [employer] Model# 7122Q-58 cm Serial #[id number] Implanted 02/18/2013 ?? Bipolar, steroid-tipped, active-fixation DF-4 lead ?? Access: Axillary vein ?? Location: Right ventricular apical septum (old) Atrial electrode: Medtronic, Model # 5568-52 cm Serial # [id number] Implanted 06/14/2012 ?? Bipolar, steroid-tipped, active-fixation IS-1 lead ?? Access: Not known ?? Location Right atrium anterolateral Coronary sinus electrode: [employer] 1458Q/86 Serial number [id number] Implanted 02/18/2013 ?? Quadripolar passive active fixation lead ?? Access: Subclavian vein ?? Location: Coronary sinus, posterolateral vein Pulse generator: [employer] [id number] Serial number [id number] Implanted 02/18/2013 ?? GLUE MOUNTER OPERATOR ICD ?? Location: Subcutaneous Old ventricular lead : Medtronic 5075 Serial number [id number] (capped 02/18/2013) Old pulse generator: Medtronic ADDR01 Serial number [id number] (removed 02/18/2013) Detection and termination of ventricular tachyarrhythmias was performed with the ICD set to minimalsensitivity ?? A T-Wave shock (4 S1 at 400 ms with a 310 ms delay and 1.2 Joule biphasic waveform) induced ventricular fibrillation that was successfully terminated with a 20 Joule shock (impedance 68 ohms). Settings: Bi-V DDD 60/130/130, PAV 200 ms, ROSAURA 150 ms, LV->RV 30 ms, mode switch 180 bpm Underlying rhythm: SR 60-75 bpm with CHB Heart rate histograms: Good distribution Atrial lead impedance: 390 ohms RV lead impedance: 390 ohms LV lead impedance: 890 ohms M3-M2 RV shock impedance 74 ohms RV to Can Lead impedance trends stable P wave: 2.9 mV R wave: None above 30 Atrial capture threshold: 1.25 V @ 1.0 ms. Chronically elevated in former pacemaker as well. A Cap Confirm was NOT recommended RV capture threshold: 0.75 V at 0.5 ms. RV Cap Confirm recommended LV capture threshold: 2.25 V at 0.5 ms M3-M2. LV Cap Confirm recommended. Chronically elevated Pacing percentages: AP 42%; FIBERLINE SUPERVISOR >99% Mode switch episodes: None VHR: None Histograms reasonably well distributed. CoreVue: below threshold Battery: 20 uA, 63%, est 3.1 years to MARY BETH Charge time: 9.8 sec 10/21/2014 Incision assessment: well healed left prepectoral site Assessment/plan: Normal device function, known elevated AP and LVP thresholds, no events. ~100% BiV pacing PEDRO remote follow up in three months RTC 6 mos Reprogramming: None Provider: POLA Jacobs Provider#: [id number] Consult attending physician: Bonny Mcarthur MD documented in this encounter Plan of Treatment Upcoming Encounters Date Type Department Care Team (Late st Contact Info) Description 02/26/2024 10:00 AM EST Hospital Encounter Non-Invasive [place] [address] Arrived documented as of this encounter Visit Diagnoses Diagnosis Biventricular implantable cardioverter-defibrillator in situ Complete heart block Atrioventricular block, complete documented in this encounter Care Teams Shoeshiner Relationship Specialty Start Date End Date Carlos Valdez MD [address] [place] [address] PCP - General 03/25/11 08/07/22 documented as of this encounter
--- OUTSIDE RECORDS SUMMARY | 2023-12-11 18:46 | XMS_ITS | Encounter Summary ---
[place] [address] Care Team Providers Care [employer] Machine Operator Helper Name Role Phone Carlos Valdez MD Primary Care Provider [phone] Reason for Referral * Diagnostic Test (Routine) - Closed Specialty Diagnoses / Procedures Referred By Theodora de la torre Referred To Contact Cardiology Diagnoses Cardiomyopathy, unspecified type Procedures Echocardiogram Transthoracic(Leb) Brady Ugarte MD [facility] [place] [address] [facility] [place] [address] Referral ID Status Reason Start Date Expiration Date V isits Requested Visits Authorized [id number] Closed Specialty Service Requested 06/26/2016 08/24/2016 1 1 Reason for Visit * Diagnostic Test (Routine) - Closed Specialty Diagnoses / Procedures Referred By Theodora de la torre Referred To Contact Cardiology Diagnoses Cardiomyopathy, unspecified type Procedures Echocardiogram Transthoracic(Leb) Brady Ugarte MD [facility] [place] [address] [facility] [place] [address] Referral ID Status Reason Start Date Expiration Date V isits Requested Visits Authorized [id number] Closed Specialty Service Requested 06/26/2016 08/24/2016 1 1 Encounter Details Date Type Department Care Team (Latest Contact Info) Description 07/11/2016 12:59 PM EDT - 07/11/2016 11:59 PM EDT Hospital Encounter Non-Invasive [place] [phone] Cardiomyopathy, unspecified type Discharge Disposition: Home Social [...] by mouth nightly. 30 tablet 0 01/11/2011 meTOPROLOL succinate (TOPROL XL) 50 mg Tablet Sustained Release 24 hr Take 1 tablet by mouth daily. Discontinue carvedilol 30 tablet 12 07/11/2016 08/11/2016 losartan (COZAAR) 50 mg Tablet take 1 tablet by mouth once daily 30 tablet 11 08/12/2014 02/15/2017 documented as of this encounter Plan of Treatment Upcoming Encounters Date Type Department Care Team (Late st Contact Info) Description 02/26/2024 10:00 AM EST Hospital Encounter Non-Invasive [place] [phone] Arrived documented as of this encounter Procedures Procedure Name Priority Date/Time Associated Diagnosis Comments ECHO COMPLETE Routine 07/11/2016 1:55 PM EDT Cardiomyopathy, unspecified type documented in this encounter Results * ECHO COMPLETE (07/11/2016 1:55 PM EDT) EF 65 HEARTLAB SYSTEM Anatomical Region Laterality Modality Other 07/11/2016 Narrative 07/11/2016 2:08 PM EDT Procedure: ?Transthoracic Echocardiogram Patient: ?PORSCHE Mancilla ? (Age): 1945(71y) Med Rec#: ? [id number] ?Sex: ?M ? Site Loc: ? [facility] ?Ht / Wt: ??198.1(cm)/108.4 Pt. Loc: ?Echo Lab ?BSA: ?2.43 Study Date: ?? 07/11/2016 ?Pt. Type: Outpatient Tape: ? Referring: JOCELYNN Referring: Brady Ugarte ([id number]) Reading: Carter Guzmán ([id number]) Engineering Officer: Kim Tineo Diagnosis: *ICD-10-PCS Cardiomyopathy, unspecified (I42.9) CPT Codes: *Echo Full (22784) *Spectral Doppler (21631) *Color Doppler (62054) BP: ? 174/92 SUMMARY: 1. Mild concentric left ventricular hypertrophy is observed. ??There is normal global left ventricular systolic function. ??The quantitative left ventricular ejection fraction by biplane Ramirez's method is 65%. ??There are no left ventricular segmental wall motion abnormalities. 2. The right ventricle is probably normal in size. Right ventricular global systolic function is normal. 3. There is no hemodynamically significant valve disease. 4. The estimated pulmonary artery systolic pressure is 20 mmHg. 5. No significant change from 01/2015. 6. See remainder of report for additional findings. Findings ? : Study Quality: ? Technically limited Left Ventricle: ? The left ventricular chamber size is normal. ?Mild concentric left ventricular hypertrophy is observed. ?There is no evidence of LVOT obstruction. ?There is normal global left ventricular systolic function. ?The quantitative left ventricular ejection fraction by biplane Ramirez's method is 65%. ?There are no left ventricular segmental wall motion abnormalities. ?The left ventricular diastolic filling pattern is consistent with impaired LV relaxation. ?Doppler assessment is consistent with normal left sided filling pressure. ?A false chord is observed in the left ventricle. Left Atrium: ? The left atrium is mildly dilated.(38 ml/m2) Right Ventricle: ? The right ventricle is probably normal in size. ?A pacemaker wire is visualized in the right ventricle. ?Right ventricular global systolic function is normal. ?The estimated pulmonary artery systolic pressure is 20 mmHg. ?The estimated right atrial pressure is 3 mmHg. Right Atrium: ? The right atrium is moderately dilated. ?A pacemaker wire is visualized in the right atrium. Aortic Valve: ? The aortic valve is probably tricuspid. ?There is no evidence of aortic valve stenosis. ?There is no evidence of aortic regurgitation. Mitral Valve: ? The mitral valve leaflets appear normal. ?There is no evidence of mitral stenosis. ?There is mild (1+/4+) mitral regurgitation present. Tricuspid Valve: ? The tricuspid valve appears normal in structure and function. ?There is mild (1+/4+) tricuspid regurgitation present. Pulmonic Valve: ? The pulmonic valve is not well visualized. Pericardium: ? The pericardium appears normal and there is no evidence of a pericardial effusion. Aorta: ? The aortic root is normal in size. ?There is mild dilatation of the ascending aorta. ?The aortic arch was not well visualized. Pulmonary Artery: ? [...] ?Value ?Units (Range) ? IVSd (2D) ? 1.4 ?cm ? LVPWd (2D) ?1.3 ?cm ? IVS:LVPW ratio (2D) 1.1 ?ratio ? LVIDd (2D) ?4.6 ?cm ? LVIDs (2D) ?3.8 ?cm ? LVIDd (2D) index ?1.9 ?cm/m2 ? LVIDs (2D) index ?1.6 ?cm/m2 ? LV FS (2D) ?18 ? % ? EF Teichholz (2D) ?? 38 ? % ? Ao root diameter (2D3.7 ?cm (2.1 - 3.6) ? Ascending Ao ?3.6 ?cm (2 - 3.5) ? Volumes/Mass ?Value ?Units (Range) ? LA Area 4 CH ?22 ? cm2 (<21) ? LA ESV BP (A/L) inde38.1 ? ml/m2 ? RA AREA 4CH ? 26 ? cm2 ? LA ESV SP 4CH (MOD) 57 ? ml ? LA ESV SP 2CH (MOD) 117.6 ?ml ? LV ESV SP 4CH (MOD) 72.6 ? ml ? LV ESV SP 2CH (MOD) 43.9 ? ml ? LV EDV BP ? 157.1 ?ml ? LV ESV BP ? 55.7 ? ml ? BP EF (MOD) ? 65 ? % ? LV mass (2D) ?240.6 ?g ? LV mass (2D) index ??99 ? g/m2 ? Diastolic/Systolic Function ?Value ?Units (Range) ? MV E-wave Vmax ?0.6 ?m/sec ? MV deceleration srft512.2 ?msec ? MV A-wave Vmax ?0.7 ?m/sec ? MV E:A ratio ?0.9 ?ratio ? LV septal e' Vmax ?? 0.1 ?m/sec ? LV lateral e' Vmax ??0.1 ?m/sec ? LV average e' Vmax ??0.1 ?m/sec ? LV E:e' septal ratio12.1 ? ratio ? LV E:e' lateral rati7.5 ?ratio ? LV average E:e' rati10 ? ratio ? Tricuspid Valve ?Value ?Units (Range) ? TR Vmax ? 2 ?m/sec ? TR peak gradient ?16.6 ? mmHg ? RAP ? 3 ?mmHg ? RVSP ?20 ? mmHg ? Measurement Trending Name ? 07/11/2016 ? LV EDV BP ?157.12 LVIDd (2D) ? 4.59 LV ESV BP ?55.68 LVIDs (2D) ? 3.76 Wall Motion: Segment Name ?Rest ? Base-Anteroseptal ?? Normal ? Base-Anterior ? Normal ? Base-Anterolateral ??Normal ? Base-Posterolateral Normal ? Base-Inferior ? Normal ? Base-Inferoseptal ?? Normal ? Mid-Anteroseptal ?Normal ? Mid-Anterior ?Normal ? Mid-Anterolateral ?? Normal ? Mid-Posterolateral ??Normal ? Mid-Inferior ?Normal ? Mid-Inferoseptal ?Normal ? [place]-Septal ? Normal ? [place]-Anterior ? Normal ? [place]-Lateral ?Normal ? [place]-Inferior ? Normal ? [place]-Tip ?Normal ? This report has been electronically signed by: Carter Guzmán M.D. ? 07/11/2016 14:08:25 Images reviewed and interpretation verified [facility] Cardiac Ultrasound Laboratory Procedure Note Carter Guzmán MD - 07/11/2016 Procedure: Transthoracic Echocardiogram Patient: PORSCHE ROBERTS(Age): 1945(71y) Med Rec#: [id number] Sex: M Site Loc: [facility] Ht / Wt: 198.1(cm)/108.4 Pt. Loc: Echo Lab BSA: 2.43 Study Date: 07/11/2016 Pt. Type: Outpatient Tape: Referring: KONOALANT Referring: Brady Ugarte ([id number]) Reading: Carter Guzmán ([id number]) Engineering Officer: Kim Tineo Diagnosis: *ICD-10-PCS Cardiomyopathy, unspecified (I42.9) CPT Codes: *Echo Full (97859) *Spectral Doppler (54226) *Color Doppler (23225) BP: 174/92 SUMMARY: 1. Mild concentric left ventricular hypertrophy is [...] 6. See remainder of report for additional findings. Findings : Study Quality: Technically limited Left Ventricle: The left ventricular chamber size is normal. Mild concentric left ventricular hypertrophy is observed. There is no evidence of LVOT obstruction. There is normal global left ventricular systolic function. The quantitative left ventricular ejection fraction by biplane Ramirez's method is 65%. There are no left ventricular segmental wall motion abnormalities. The left ventricular diastolic filling pattern is consistent with impaired LV relaxation. Doppler assessment is consistent with normal left sided filling pressure. A false chord is observed in the left ventricle. Left Atrium: The left atrium is mildly dilated.(38 ml/m2) Right Ventricle: The right ventricle is probably normal in size. A pacemaker wire is visualized in the right ventricle. Right ventricular global systolic function is normal. The estimated pulmonary artery systolic pressure is 20 mmHg. The estimated right atrial pressure is 3 mmHg. Right Atrium: The right atrium is moderately dilated. A pacemaker wire is visualized in the right atrium. Aortic Valve: The aortic valve is probably tricuspid. There is no evidence of aortic valve stenosis. There is no evidence of aortic regurgitation. Mitral Valve: The mitral valve leaflets appear normal. There is no evidence of mitral stenosis. There is mild (1+/4+) mitral regurgitation present. Tricuspid Valve: The tricuspid valve appears normal in structure and function. There is mild (1+/4+) tricuspid regurgitation present. Pulmonic Valve: The pulmonic valve is not well visualized. Pericardium: The pericardium appears normal and there is no evidence of a pericardial effusion. Aorta: The aortic root is normal in size. There is mild dilatation of the ascending aorta. The aortic arch was not well visualized. Pulmonary Artery: The [...] Chambers 2D Value Units (Range) IVSd (2D) 1.4 cm LVPWd (2D) 1.3 cm IVS:LVPW ratio (2D) 1.1 ratio LVIDd (2D) 4.6 cm LVIDs (2D) 3.8 cm LVIDd (2D) index 1.9 cm/m2 LVIDs (2D) index 1.6 cm/m2 LV FS (2D) 18 % EF Teichholz (2D) 38 % Ao root diameter (2D3.7 cm (2.1 - 3.6) Ascending Ao 3.6 cm (2 - 3.5) Volumes/Mass Value Units (Range) LA Area 4 CH 22 cm2 (<21) LA ESV BP (A/L) inde38.1 ml/m2 RA AREA 4CH 26 cm2 LA ESV SP 4CH (MOD) 57 ml LA ESV SP 2CH (MOD) 117.6 ml LV ESV SP 4CH (MOD) 72.6 ml LV ESV SP 2CH (MOD) 43.9 ml LV EDV BP 157.1 ml LV ESV BP 55.7 ml BP EF (MOD) 65 % LV mass (2D) 240.6 g LV mass (2D) index 99 g/m2 Diastolic/Systolic Function Value Units (Range) MV E-wave Vmax 0.6 m/sec MV deceleration eqhc999.2 msec MV A-wave Vmax 0.7 m/sec MV E:A ratio 0.9 ratio LV septal e' Vmax 0.1 m/sec LV lateral e' Vmax 0.1 m/sec LV average e' Vmax 0.1 m/sec LV E:e' septal ratio12.1 ratio LV E:e' lateral rati7.5 ratio LV average E:e' rati10 ratio Tricuspid Valve Value Units (Range) TR Vmax 2 m/sec TR peak gradient 16.6 mmHg RAP 3 mmHg RVSP 20 mmHg Measurement Trending Name 07/11/2016 LV EDV BP 157.12 LVIDd (2D) 4.59 LV ESV BP 55.68 LVIDs (2D) 3.76 Wall Motion: Segment Name Rest Base-Anteroseptal Normal Base-Anterior Normal Base-Anterolateral Normal Base-Posterolateral Normal Base-Inferior Normal Base-Inferoseptal Normal Mid-Anteroseptal Normal Mid-Anterior Normal Mid-Anterolateral Normal Mid-Posterolateral Normal Mid-Inferior Normal Mid-Inferoseptal Normal Rockledge-Septal Normal Rock[place]-Anterior Normal [place]-Lateral Normal [place]-Inferior Normal [place]-Tip Normal This report has been electronically signed by: Carter Guzmán M.D. 07/11/2016 14:08:25 Images reviewed and interpretation verified [facility] Cardiac Ultrasound Laboratory Brady Ugarte MD ECHO ORDERABLES documented in this encounter Visit Diagnoses Diagnosis Cardiomyopathy, unspecified type documented in this encounter Care Teams [employer] Machine Operator Helper Relationship Specialty Start Date End Date Carlos Valdez MD [address] [place] [address] PCP - General 03/25/11 08/07/22 documented as of this encounter
--- OUTSIDE RECORDS SUMMARY | 2023-12-11 18:46 | XMS_ITS | Encounter Summary ---
[place] [address] Care Team Providers Care Sugarcane Research Technician Name Role Phone Carlos Valdez MD Primary Care Provider [phone] Encounter Details Date Type Department Care Team (Latest Contact Info) Description 10/19/2015 2:15 PM EDT [place] [phone] Cardiomyopathy; Heart failure, unspecified; Other pericarditis; SOB (shortness of breath) Social History Tobacco [...] AM EST Hospital Encounter Non-[place] [phone] Arrived documented as of this encounter Procedures Procedure Name Priority Date/Time Associated Diagnosis Comments PROTEIN ELECTROPHORESIS, URINE, RANDOM Routine 10/19/2015 2:07 PM EDT Cardiomyopathy Heart failure, unspecified Other pericarditis IMMUNOGLOBULIN FREE LIGHT CHAINS, SERUM Routine 10/19/2015 2:06 PM EDT Cardiomyopathy Heart failure, unspecified Other pericarditis HEMOGRAM STAT 10/19/2015 2:06 PM EDT Cardiomyopathy Heart failure, unspecified Other pericarditis DIFFERENTIAL, AUTOMATED STAT 10/19/2015 2:06 PM EDT Cardiomyopathy Heart failure, unspecified Other pericarditis SEDIMENTATION RATE Routine 10/19/2015 2: 06 PM EDT Cardiomyopathy Heart failure, unspecified Other pericarditis CBC (WITH DIFF) STAT 10/19/2015 2:06 PM EDT Cardiomyopathy Heart failure, unspecified Other pericarditis CRP, CARDIAC RISK (HS CRP) Routine 10/19/2015 2:06 PM EDT Cardiomyopathy Heart failure, unspecified Other pericarditis PROTEIN ELECTROPHORESIS, SERUM Routine 10/19/2015 2:06 PM EDT Cardiomyopathy Heart failure, unspecified Other pericarditis PRO-BRAIN NATRIURETIC PEPTIDE STAT 10/19/2015 2:06 PM EDT Cardiomyopathy Heart failure, unspecified Other pericarditis SOB (shortness of breath) COMPREHENSIVE METABOLIC PANEL STAT 10/19/2015 2:06 PM EDT Cardiomyopathy Heart failure, unspecified Other pericarditis documented in this encounter Results * Protein Electrophoresis, urine, random (10/19/2015 2:07 PM EDT) Protein, Urine 9 0 - 12 mg/dL [facility] U Albumin 45 % total [facility] Globulin, Urine 55 % total [facility] M1 Band, Urine None Detected [facility] UPEP Comments See Note [facility] Comment: There is no evidence of clonal free light chains in this patient's urine sample. Urine specimen (specimen) 10/19/2015 2:07 PM EDT 10/19/2015 2:13 PM EDT Narrative Resulting Agency Comment Spec In Lab Sancho Glass MD URINE ORDERABLES Performing Organization Address City/[facility]/ZIP [place] [address] * Differential, Automated (10/19/2015 2:06 PM EDT) Neutrophil % 58.2 % [facility] Neutrophil Absolute 5.17 1.50 - 6.30 x10(3)/[facility] Lymph % 31.6 % [facility] Lymphocytes Abs 2.8 1.0 - 3.6 x10(3)/[facility] Monocyte % 6.8 % [facility] Monocyte Abs 0.6 0.2 - 1.0 x10(3)/[facility] Eos % 2.6 % [facility] Eosinophils Abs 0.2 0.0 - 0.5 x10(3)/[facility] Basophil % 0.6 % [facility] Baso Absolute 0.0 0.0 - 0.2 x10(3)/[facility] Immature Gran % 0.20 % [facility] Comment: Immature granulocytes(IG's)percentage and absolute count will include metamyelocytes, myelocytes, and promyelocytes. Blood smears from CBCs yielding IG's will be scanned manually for concordance. If this scan disagrees with the automated IG or if promyelocytes are noted, a manual differential will be performed. Immature Gran Absolute 0.02 0.00 - 0.05 x10(3)/[facility] Blood specimen (specimen) 10/19/2015 2:06 PM EDT 10/19/2015 2:13 PM EDT Narrative Resulting Agency Comment Spec In Lab Sancho Glass MD HEMATOLOGY ORDERA BLES Performing Organization Address City/[facility]/ZIP Co de Phone Number [facility] [place] [address] * Hemogram (10/19/2015 2:06 PM EDT) Pathologist [facility] White Blood Cell 8.9 4.0 - 10.0 x10(3)/[facility] Red Blood Cell 5.38 4.63 - 6.08 x10(6)/[facility] Hemoglobin 16.1 13.7 - 17.5 gm/dL [facility] Hematocrit 46.6 40.0 - 51.0 % [facility] Mean Cell Volume 86.6 79.0 - 92.0 fL [facility] Mean Cell Hemoglobin 29.9 25.6 - 32.2 pg [facility] Mean Cell Hemoglobin Concentration 34.5 32.0 - 36.5 gm/dL [facility] Platelet 207 145 - 370 x10(3)/[facility] RDW Standard Deviation 39.2 35.0 - 46.0 fL [facility] RDW coefficient of variation 12.4 10.9 - 14.4 % [facility] Mean Platelet Volume 10.7 9.0 - 12.0 fL [facility] NRBC% auto 0.0 % [facility] NRBC Absolute 0.000 0.000 - 0.012 x10(3)/[facility] Blood specimen (specimen) 10/19/2015 2:06 PM EDT 10/19/2015 2:13 PM EDT Narrative Resulting Agency Comment Spec In Lab Sancho Glass MD HEMATOLOGY ORDERA BLES [facility] [place] [address] * Protein Electrophoresis, serum (10/19/2015 2:06 PM EDT) Pathologist [facility] Total Prot Electrophoresis 6.5 6.1 - 8.0 gm/dL [facility] Albumin Electrophoresis 4.41 3.60 - 6.00 gm/dL [facility] Alpha 1 Globulin 0.16 0.10 - 0.30 gm/dL [facility] Alpha 2 Globulin 0.67 0.40 - 0.90 gm/dL [facility] Beta Globulin 0.66 0.50 - 1.00 gm/dL [facility] Gamma Globulin 0.59 0.50 - 1.30 gm/dL [facility] M1 Band None Detected [facility] Blood specimen (specimen) 10/19/2015 2:06 PM EDT 10/19/2015 2:13 PM EDT Narrative Resulting Agency Comment Spec In Lab Sancho Glass MD CHEMISTRY ORDERAB LES [facility] [place] [address] * High Sensitivity CRP (10/19/2015 2:06 PM EDT) C-Reactive Protein High Sensitivity 3.2 mg/L [facility] Comment: Interpretations: 1) For accurate cardiac risk assessment, the average of 2 values >2 weeks apart should be obtained (ref 1&2). A value >10 mg/L indicates an inflammatory condition, concentrations >10 mg/L should not be used for cardiac risk assessment. ?<1.0 mg/L: low risk ?1.0 - 3.0 mg/L: moderate risk ?>3.0 mg/L: high risk groups for future cardiovascular events 2) The general reference range of apparently healthy individuals using this test is <5.0 mg/L (derived from the test package insert) References: 1. Lashanda TA et. al. ??AHA/CDC Scientific Statement: Markers of Inflammation and Cardiovascular Disease. ??Circulation 2003; 107:499-511 2. Ritesh PM. ??Clinical applications of C-reactive protein for cardiovascular disease detection and prevention. ??Circulation 2003; 107:363-369 Blood specimen (specimen) 10/19/2015 2:06 PM EDT 10/19/2015 2:13 PM EDT Narrative Resulting Agency Comment Spec In Lab Sancho Glass MD CHEMISTRY ORDERAB LES Performing Organization Address [facility]/ZIP Co de Phone Number [facility] [place] [address] * (ABNORMAL) Free Light Chains, Serum (10/19/2015 2:06 PM EDT) [place] Free Light Chains 2.09(H) 0.33 - 1.94 mg/dL [facility] Lambda Free Light Chains 1.53 0.57 - 2.63 mg/dL [facility] [place]/Lambda Free Light Chain Ratio 1.3660 0.2600 - 1.6500 [facility] Blood specimen (specimen) 10/19/2015 2:06 PM EDT 10/19/2015 2:13 PM EDT Narrative Resulting Agency Comment Spec In Lab Sancho Glass MD CHEMISTRY ORDERAB LES Performing Organization Address [facility]/ZIP Co de Phone Number [facility] [place] [address] * Sedimentation rate (10/19/2015 2:06 PM EDT) Pathologist [facility] Sedimentation Rate Automated 4 0 - 15 mm/hr [facility] Blood specimen (specimen) 10/19/2015 2:06 PM EDT 10/19/2015 2:13 PM EDT Narrative Resulting Agency Comment Spec In Lab Sancho Glass MD HEMATOLOGY ORDERA BLES Performing Organization Address City/[facility]/ZIP Co de Phone Number [facility] [place] [address] * (ABNORMAL) pro-Brain Natriuretic Peptide (10/19/2015 2:06 PM EDT) NT-proBNP 166(H) <=125 pg/mL [facility] Blood specimen (specimen) 10/19/2015 2:06 PM EDT 10/19/2015 2:13 PM EDT Narrative Resulting Agency Comment Spec In Lab Sancho Glass MD CHEMISTRY ORDERAB LES [facility] [place] [address] * Comprehensive metabolic panel (non-fasting) (10/19/2015 2:06 PM EDT) Glucose 101 65 - 199 mg/dL [facility] Comment:Diabetes: >=200 mg/d L plus symptoms Blood Urea Nitrogen 20 10 - 20 mg/dL [facility] Creatinine 0.96 0.80 - 1.50 mg/dL [facility] Comment: Please note that the pediatric reference intervals supplied above were not validated at [facility]. Results from pediatric patients should be interpreted in conjunction to the patient's age, height and muscle mass. Sodium 143 135 - 145 mmol/L [facility] Potassium 4.2 3.5 - 5.0 mmol/L [facility] Comment: Please note: ??Patients with WBC >100,000 may have falsely elevated Potassium levels. ??For accurate Potassium quantification in these patients send serum separator tube (gold top) for subsequent determinations. ??Contact the Clinical Chemistry Laboratory if there are any questions. Chloride 103 98 - 107 mmol/L [facility] Carbon Dioxide 25 22 - 31 mmol/L [facility] Anion Gap 15 5 - 15 mmol/L [facility] Calcium 9.5 8.5 - 10.5 mg/dL [facility] Protein, Total 6.6 6.1 - 8.0 gm/dL [facility] Albumin 4.2 3.2 - 5.2 gm/dL [facility] Aspartate Aminotransferase 16 0 - 39 unit/L [facility] Alanine Aminotransferase 13 0 - 55 unit/L [facility] Alkaline Phosphatase 43 40 - 120 unit/L [facility] Bilirubin, Total 1.0 0.2 - 1.3 mg/dL [facility] Bilirubin, Direct 0.2 0.0 - 0.3 mg/dL [facility] Est Glomerular Filtration Rate >60 >=60 [facility] Comment: This estimated GFR (eGFR) value was calculated using the MDRD equation which has been validated on patients between the ages of 18 and 70. The MDRD should not be used to assess kidney function in patients < 18 years of age or in patients with extremes of body mass, or in patients with acute kidney failure. This value should be multiplied by 1.2 for patients. For further information please copy and paste the following links into your internet browser. [email or web address] [email or web address] Blood specimen (specimen) 10/19/2015 2:06 PM EDT 10/19/2015 2:13 PM EDT Narrative Resulting Agency Comment Spec In Lab Sancho Glass MD CHEMISTRY ORDERAB LES Performing Organization Address City/State/[facility] Co de Phone Number [facility] [place] [address] documented in this encounter Visit Diagnoses Diagnosis Cardiomyopathy Other primary cardiomyopathies Heart failure, unspecified Other pericarditis SOB (shortness of breath) Shortness of breath documented in this encounter Care Teams Sugarcane Research Technician Relationship Specialty Start Date End Date Carlos Valdez MD [address] [place] [address] PCP - General 03/25/11 08/07/22 documented as of this encounter
--- OUTSIDE RECORDS SUMMARY | 2023-12-11 18:46 | XMS_ITS | Encounter Summary ---
[place] [address] Care Team Providers Care Mattress And Foundation Sewer Name Role Phone Carlos Valdez MD Primary Care Provider [phone] Encounter Details Date Type Department Care Team (Late st Contact Info) Description 01/28/2016 External Results Cardiology at [address] [phone] Carlos Valdez MD [address] [place] [address] [id number] Social History Tobacco Use Types Packs/Day Years [...] AM EST Hospital Encounter Non-[place] [address] Arrived documented as of this encounter Procedures Procedure Name Priority Date/Time Associated Diagnosis Comments EP DEVICE SCAN Routine 01/26/2016 documented in this encounter Results * Scan Doc: EP Device (01/26/2016) Anatomical Region Laterality Modality Other Carlos Valdez MD MEDIA MGR SCAN EXT O RDR/RSLT documented in this encounter Visit Diagnoses Not on filedocumented in this encounter Care Teams Mattress And Foundation Sewer Relationship Specialty Start Date End Date Carlos Valdez MD [address] [place] [address] PCP - General 03/25/11 08/07/22 documented as of this encounter
--- OUTSIDE RECORDS SUMMARY | 2023-12-11 18:46 | XMS_ITS | Encounter Summary ---
[place] [address] Care Team Providers Care Slitter Operator Name Role Phone Charli Jaramillo MD Primary Care Provider [phone] Reason for Visit * Reason Comments Cardiomyopathy Encounter Details Date Type Department Care Team (Latest Contact Info) Description 10/19/2015 3:00 PM EDT Office Visit Cardiology at [address] [phone] Izzy Holt RN Non-ischemic cardiomyopathy Social History [...] Sign Reading Time Taken Comments Blood Pressure 150/85 10/19/2015 2:42 PM EDT Pulse 60 10/19/2015 2:42 PM EDT Temperature - - Respiratory Rate - - Oxygen Saturation 95% 10/19/2015 2:42 PM EDT room air Inhaled Oxygen Concentration - - Weight 107.3 kg (236 lb 8 oz) 10/19/2015 2:42 PM EDT Height 195.6 cm (6' 5) 10/19/2015 2:42 PM EDT Body Mass Index 28.04 10/19/2015 2:42 PM EDT documented in this encounter Progress Notes * Izzy Holt RN - 10/19/2015 3:00 PM EDT Pacemaker Clinic Follow-Up Jimmie Mccauley is a 70 y.o. male who presents today in the device clinic for INSPECTOR BICYCLE- D interrogation. Heoriginally had a pacemaker implanted 06/14/2012 for CHB. This was done at [facility] in [place], [place]. He underwent upgrade to INSPECTOR BICYCLE-D on 02/18/2013 for CHF, CM, ventricular dyssynchrony. He is seeing Dr. Vazquez today as well. Hazardous Materials Waste Technician: Brady Ugarte MD PCP: CHARLI JARAMILLO MD Final Parameters: New Ventricular electrode: [employer] Model# 7122Q-58 cm Serial #[id number] Implanted 02/18/2013 Bipolar, steroid-tipped, active-fixation DF-4 lead Access: Axillary vein Location: Right ventricular apical septum R wave, PSA: 7.8 (paced) mV Pacing threshold, PSA: 0.7 V at 0.5 ms Pacing threshold, ICD: 0.75 V at 0.4 ms Impedance, PSA: 925 ohms Impedance, ICD: 940 ohms RV coil Impedance 68 ohms Pace the diaphragm at 10 V: No (old) Atrial electrode: [employer], Model # 5568-52 cm Serial # [id number] Implanted 06/14/2012 Bipolar, steroid-tipped, active-fixation IS-1 lead Access: Not known Location Right atrium anterolateral P wave, PSA: 1.4 mV P wave, ICD: 1.2 mV Pacing threshold, PSA: 1.25 V at 1.0 ms Pacing threshold, ICD: 1.25 V at 1.0 ms Impedance, PSA: 306 ohms at 5 V Coronary sinus electrode: [employer] 1458Q/86 Serial number [id number] Implanted 02/18/2013 Quadripolar passive active fixation lead Access: Subclavian vein Location: Coronary sinus, posterolateral vein R wave, PSA: 8.3 (paced) mV Pacing threshold, PSA: 0.8 V at 0.5 ms Pacing threshold, ICD: 0.75 V at 0.4 ms Impedance,PSA: 641 ohms Impedance, device: 760 ohms Pace the diaphragm/chest wall at 10 V: No Pulse generator: [employer] [id number] Serial number [id number] Implanted 02/18/2013 INSPECTOR BICYCLE ICD Location: Subcutaneous Old ventricular lead : [employer]onic 5075 Serial number [id number] (capped 02/18/2013) Old pulse generator: [employer] [id number] Serial number [id number] (removed 02/18/2013) Detection and termination of ventricular tachyarrhythmias was performed with the ICD set to minimalsensitivity A T-Wave shock (4 S1 at 400 ms with a 310 ms delay and 1.2 Joule biphasic waveform) induced ventricular fibrillation that was successfully terminated with a 20 Joule shock (impedance 68 ohms). Settings: Bi-V DDDR 70/130/130, PAV 200 ms, ROSAURA 150 ms, LV->RV 30 ms, mode switch 180 bpm Underlying rhythm: SR 70-75 bpm with CHB Heart rate histograms: Good distribution Atrial lead impedance: 350 ohms RV lead impedance: 360 ohms LV lead impedance: 790 ohms M3-M2 RV shock impedance 68 ohms RV to Can Lead impedance trends stable P wave: 1.7 mV R wave: None Atrial capture threshold: 2.75 V @ 1.0 ms. Chronically elevated in former pacemaker as well. A Cap Confirm was NOT recommended RV capture threshold: 0.75 V at 0.5 ms. RV Cap Confirm recommended LV capture threshold: 1.75 V at 0.5 ms M3-M2. LV Cap Confirm recommended. Chronically elevated Pacing percentages: AP 86%; BROILER CHEF OR COOK >99% Mode switch episodes: None VHR: None Histograms reasonably well distributed. CoreVue: Elevated in June 2014 (8 days), Feb 2014 (7 days) Battery: 24 uA, 53 %, est 2.3-2.8 years to MARY BETH Charge time: 9.8 sec 06/22/2015 Chest x-ray: Ok day after implant Incision assessment: No issues L chest Provider: Izzy Holt RN Attending: Dheeraj Herzog MD documented in this encounter Plan of Treatment Upcoming Encounters Date Type Department Care Team (Late st Contact Info) Description 02/26/2024 10:00 AM EST Hospital Encounter [place] [address] Arrived documented as of this encounter Visit Diagnoses Diagnosis Non-ischemic cardiomyopathy Other primary cardiomyopathies documented in this encounter Care Teams Slitter Operator Relationship Specialty Start Date End Date Charli Jaramillo MD [address] [facility] [address] [place] [address] PCP - General 03/25/11 08/07/22 documented as of this encounter
--- OUTSIDE RECORDS SUMMARY | 2023-12-11 18:46 | XMS_ITS | Encounter Summary ---
Author Organization [facility] [place] [address] Care Team Providers Care Layout Designer Name Role Phone Carlos Valdez MD Primary Care Provider Reason for Visit * Reason Comments Cardiomyopathy Congestive Heart Failure Encounter Details Date Type Department Care Team (Late st Contact Info) Description 07/11/2016 3:30 PM EDT Office Visit Cardiology at [address] [phone] Brady Ugarte MD [facility] [address] CARDIOLOG[place] [address] Heart failure, unspecified; Cardiomyopathy, unspecified; SOB (shortness of breath); Biventricular implantable cardioverter-defibril lator in situ; Non-ischemic cardiomyopathy; Chronic systolic heart failure; Other chest pain; Pericarditis, unspecified chronicity, unspecified type Social History Tobacco Use Types [...] Sign Reading Time Taken Comments Blood Pressure 150/90 07/11/2016 3:05 PM EDT Pulse 62 07/11/2016 3:05 PM EDT Temperature - - Respiratory Rate - - Oxygen Saturation 95% 07/11/2016 3:05 PM EDT Inhaled Oxygen Concentration - - Weight 106.6 kg (235 lb 1.6 oz) 07/11/2016 3:05 PM EDT Height 198.1 cm (6' 6) 07/11/2016 3:05 PM EDT Body Mass Index 27.17 07/11/2016 3:05 PM EDT documented in this encounter Progress Notes * Brady Ugarte MD - 07/11/2016 3:30 PM EDT Images from the original note were not included. [facility] [place] [address] CARDIOMYOPATHY/HEART FAILURE SERVICE OUTPATIENT CLINIC NOTE Jatinder Mccauley 07/11/2016 Primary Care Provider: Carlos Valdez MD Referring Provider: Carlos Valdez CHIEF COMPLAINT: Chief Complaint Patient presents with ??? Cardiomyopathy ??? Congestive Heart Failure HISTORY OF PRESENT ILLNESS: Jatinder Mccauley is a 71 y.o. patient seen in routine follow up in the [facility], and in the interim, the patient has been stable from a cardiac [...] the afternoon although this is slightly better atthe lower dose of carvedilol. He has not had any other device issues. He claims compliance with hismedications. Routine evaluation for a.l. amyloidosis was negative. Repeat echocardiography as notedbelow demonstrates well-preserved cardiac function with mild concentric [...] cardiac protective medications. He recently vacationed in [place] and had no major clinical events. He is currently off Coumadin after he presented with a PE with prolonged driving in the past. From his last 02/03/14 visit. Mr Mccauley has been stable from a cardiac standpoint [...] normal although he has been cutting back on[employer]resto [employer] with less travel that is work-related. He has not needed to take additional diuretic therapy. Other review of systems are negative. From his 07/11/13 visit with Xin Grewal: Last visit: 04/02 Feeling well post TUFTING MACHINE FIXER. Remains active and busy. Has occ fatigue, [...] EP and has been scheduled for elective TUFTING MACHINE FIXER- D upgrade with EF ~ 35 %and [...] reported to a local emergency room in [place]. He was told that he had a low heart rate in may need a pacemaker but he declined any further evaluation as he was asymptomatic. 2 weeks later, while [place], the patient felt weak, tired, with dizziness [...] available for my review. Since [facility], thepatient actually feels well with no major [...] this. There were no new medications or ztuw-zfr-jrpipjx therapy initiated during this timeframe. On discharge, [...] ICD (implantable cardioverter-defibrillator) malfunction - [employer] T82.199A Patient Active Problem List Diagnosis ??? Biventricular implantable cardioverter-defibrillator in situ- [facility] [employer] 02/19/2013 Cardiac Resynchronization Therapy ICD Upgrade (explant of pacemaker pulse generator), peripheral Subclavian Venography, Cinefluoroscopy, pacemaker pocket revision and defibrillation safety margin testing, under General anesthesia Indication: Cardiomopathy with congestive heart failure and ventricular dyssynchrony, ventricular pacing New Ventricular electrode: [employer] Model# 7122Q-58 cm Serial #[id number] Implanted 02/18/2013 Bipolar, steroid-tipped, active-fixation DF-4 lead Access: Axillary vein Location: Right ventricular apical septum (old) Atrial electrode: Medtronic, Model # 5568-52 cm Serial # [id number] Implanted 06/14/2012 Bipolar, steroid-tipped, active-fixation IS-1 lead Access: Not known Location Right atrium anterolateral Coronary sinus electrode: [employer] 1458Q/86 Serial number [id number] Implanted 02/18/2013 Quadripolar passive active fixation lead Access: Subclavian vein Location: Coronary sinus, posterolateral vein Pulse generator: [employer] [id number] Serial number [id number] Implanted 02/18/2013 TUFTING MACHINE FIXER ICD Location: Subcutaneous Old ventricular lead : Medtronic 5075 Serial number [id number] (capped 02/18/2013) Old pulse generator: Medtronic [id number] Serial number [id number] (removed 02/18/2013) Detection and termination of ventricular tachyarrhythmias was performed with the ICD set to minimalsensitivity A T-Wave shock (4 S1 at 400 ms with a 310 ms delay and 1.2 Joule biphasic waveform) induced ventricular fibrillation that was successfully terminated with a 20 Joule shock (impedance 68 ohms). Generator change 03/25/16: New Pulse Generator [employer] [id number] Serial number [id number] Implanted 03/25/2016 TUFTING MACHINE FIXER ICD Location: Subcutaneous ??? Non-ischemic cardiomyopathy Dilated [...] with left bundle branch block, PVCs, QRS xhpohzza=608 msec. Symptomatic CHB 06/13/12- s/p DDDR pacemaker 100% V paced rhythm SPEP/Free Light Chains- Results for SADIEKIMBERLY JATINDER Charo ( ) as of 07/10/2016 19:35 Ref. Range 10/19/2015 14:06 10/19/2015 14:07 [place] Free Light Chains Latest Ref Range: 0.33 [...] Carvedilol ROSY/ARB Yes Losartan Spironolactone no Previously [id number], d/c secondary to side effects (hives), no rechallenge Amlodipine Yes Initiated 05/30 [place] AFIB? no Anticoagulated AICD/Type TUFTING MACHINE FIXER-D LBBB, EF dropped to 35%- 04/02/13 back up at ~ 50% post TUFTING MACHINE FIXER--> EF=65% NSR with LBBB, QRS= 170 ms [...] 08/01/12 ??? LBBB (left bundle branch block) DBE=296 ms New Symptomatic CHB 05/30-->declined pacer at [...] Dual Chamber Model # [id number], Serial number [id number] -[place], [place] ??? Pericarditis New chest discomfort ~ 2 weeks post DDD pacer implant Elevated C reactive protein; pericardial effusion->improved with NSAID and colchicine. Should be on colchicine until Nov 18, 2012 Elevated ProBNP, some clinical response with diuretics Stress Echo, LVEF=44%, no change, no definite ischemia, poor exercise tolerance, no pericardial effusion noted on stress Trivial pleural effusion on chest x-ray Elevated UDG=396 a-->3.8 AN ESR=53 on index presentation --> 25, 13 and 4 on medical therapy with colchicine, steroids not initiated ??? Alcohol use History of Alcohol use ??? ICD (implantable cardioverter-defibrillator) malfunction - St [...] The patient reports thathe quit smoking about 20 years ago. His smoking use included Cigarettes. He has never used smokeless tobacco. He reports that he drinks about 0.5 oz of alcohol per week He reports that he does not use illicit drugs. FAMILY HISTORY: Reviewed and updated as appropriate in the medical record. No family history on file. ALLERGIES: Reviewed and updated as appropriate in the medical record. Allergies Allergen Reactions ??? Lasix [Furosemide] Rash MEDICATIONS: Outpatient Prescriptions Marked as Taking for the 07/11/16 encounter (Office Visit) with Brady Ugarte MD Medication Sig Dispense Refill ??? carvedilol (COREG) 6.25 mg Tablet Take 1 tablet by mouth 2 times daily (with meals). 180 tablet3 ??? multivitamin (THERAGRAN) Tablet Take 1 tablet by mouth daily. ??? losartan (COZAAR) 50 mg Tablet take 1 tablet by mouth once daily 30 tablet 11 ??? pravastatin (PRAVACHOL) 10 mg Tablet Take 10 mg by mouth daily. ??? mragtom-cesybxyghqiru-lysubbvv (EXCEDRIN MIGRAINE) 250-250-65 mg per tablet Take [...] Signs: Wt Readings from Last 3 Encounters: 07/11/16 (!) 106.6 kg (235 lb 1.6 oz) 07/11/16 (!) 106.6 kg (235 lb 1.6 oz) 04/08/16 (!) 108.4 kg (239 lb) Temp Readings from Last 3 Encounters: 03/25/16 36.3 ??C (97.3 ??F) (Temporal) 02/19/13 36.8 ??C (98.2 ??F) (Oral) 02/11/13 35.6 ??C (96 ??F) (Temporal) BP Readings from Last 3 Encounters: 07/11/16 150/90 07/11/16 150/90 04/08/16 (!) 144/92 Pulse Readings from Last 3 Encounters: 07/11/16 62 07/11/16 62 04/08/16 66 SpO2: [95 %] General -Alert, oriented, NAD. Affect good [...] (non-fasting) Result Value Ref Range Glucose Lvl 124 65 - 199 mg/dL BUN 19 10 - 20 mg/dL Creatinine 0.89 0.80 - 1.50 mg/dL Sodium 140 135 - 145 mmol/L Potassium 4.1 3.5 - 5.0 mmol/L Chloride 101 98 - 107 mmol/L CO2 26 22 - 31 mmol/L Anion Gap 13 5 - 15 mmol/L Calcium 9.4 8.5 - 10.5 mg/dL Total Protein 6.6 6.1 - 8.0 gm/dL Albumin 3.9 3.2 - 5.2 gm/dL AST 13 0 - 39 unit/L ALT 14 0 - 55 unit/L Alk Phos 47 40 - 120 unit/L Total Bilirubin 0.9 0.2 - 1.3 mg/dL Bili, Direct 0.2 0.0 - 0.3 mg/dL Estimated GFR >60 >=60 pro-Brain Natriuretic Peptide Result Value Ref Range ProBNP 169 (H) <=125 pg/mL TSH Result Value Ref Range TSH 4.11 0.27 - 4.20 mcIU/mL Echocardiogram Transthoracic(Leb) Result Value Ref Range EF 65 ProBNP Date Value Ref Range Status 07/11/2016 169 (H) <=125 pg/mL Final 10/19/2015 166 (H) <=125 pg/mL Final 02/03/2015 90 <=125 pg/mL Final CARDIAC STUDIES Echo 07/20/12 BP 129/73 SUMMARY: 1. The [...] additional findings Device interrogation-reviewed personally-no delivered therapies, -INSTALLER INSPECTOR FINAL=37%, AP- INSTALLER INSPECTOR FINAL 62%, greater than99% ventricular paced rhythm, no evidence of fluid overload on impedance monitoring, good activity,heart rates 60-90 beats per minute. Some over sensing, < 1 % mode switch PROBLEMS: Biventricular implantable cardioverter-defibrillator in situ- [facility] No Device issues, reviewed personally and with EP cardiology Heart failure chronic systolic dysfunction Appears well compensated and euvolemic 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? No recurrence Non-ischemic cardiomyopathy Persistent preservation of LV function on lower dose carvedilol, EF=65% Will attempt change from carvedilol to Toprol 50 mg daily, but monitor BP and clinical response / side effects. Pericarditis No recurrence ASSESSMENT: He remains clinically stable from a cardiovascular [...] possible upgrade of his pacemaker to a TUFTING MACHINE FIXER-D. This could be related to his ventricular [...] side effects to be aware of discussed. - D/c carvedilol - with persistent fatigue, consider changing beta makeda to alternative beta makeda, from carvedilol to Toprol or bisoprolol- initiate Toprol 50 mg daily, side effects explained. - Otherwise, no Changes in cardiac medications, but may be a candidate for Eplerenone if persistentLV systolic dysfunction he states that he was intolerant of this medication secondary to urticaria,although reviewing his [facility] chart, he was on spironolactone from 2001 for 2003, and it was discontinued somewhere between 2003- 2005. - with recovered LVEF, although he maay be a candidate for Entresto in the future, will defer for now. 2. The following labs, referrals or other testing advised: - echocardiogram-done today - Device interrogation today - Routine laboratories- on ROSY - Consider bone scan to rule out ATTR Amyloid in the future- discussed with patient 3. COUNSELING: Specific issues or questions addressed on this visit: - As above - I cautioned him to limit his alcohol use - Reviewed his laboratories, and recent clinical course and echo images/findings, device interrogation findings - reviewed his short-term and long-term prognosis, TUFTING MACHINE FIXER -D implant, rationale for followup and need to continue current medical therapy - reviewed echocardiogram images personally 4. Cardiology follow-up scheduled for: - 6 Months or earlier as clinically indicated, Coordinate with EP cardiology and device interrogation - PCP and other subspecialists as previously arranged Brady Ugarte MD, [facility] candy puller Cardiology Director, Cardiovascular Critical Care Sql Server Consultant, Advanced Heart Failure and Cardiomyopathy Program [facility] documented in this encounter Miscellaneous Notes * Assessment & Plan Note - Brady Ugarte MD - 07/11/2016 4:03 PM EDTAssociated Problem(s): Pericarditis No recurrence * Assessment & Plan Note - Brady Ugarte MD - 07/11/2016 3:58 PM EDTAssociated Problem(s): Non-ischemic cardiomyopathy Persistent preservation of LV function on lower dose carvedilol, EF=65% Will attempt change from carvedilol to Toprol 50 mg daily, but monitor BP and clinical response / side effects. * Assessment & Plan Note - Brady Ugarte MD - 07/11/2016 3:57 PM EDTAssociated Problem(s): 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? No recurrence * Assessment & Plan Note - Brady Ugarte MD - 07/11/2016 3:52 PM EDTAssociated Problem(s): Heart failure chronic systolic dysfunction Appears well compensated and euvolemic * Assessment & Plan Note - Brady Ugarte MD - 07/11/2016 3:50 PM EDTAssociated Problem(s): Biventricular implantable cardioverter-defibrillator in situ- [facility] No Device issues, reviewed personally and with EP cardiology documented in this encounter Plan of Treatment Upcoming Encounters Date Type Department Care Team (Late st Contact Info) Description 02/26/2024 10:00 AM EST Hospital Encounter Non-[place] [address] Arrived documented as of this encounter Results * TSH (07/11/2016 12:54 PM EDT) Thyroid Stimulating Hormone 4.11 0.27 - 4.20 mcIU/mL [facility] Blood specimen (specimen) 07/11/2016 12:54 PM EDT 07/11/2016 1:02 PM EDT Narrative Resulting Agency Comment Spec In Lab Brady Ugarte MD CHEMISTRY ORDERABLES Performing Organization Address City/[facility]/ZIP Co de Phone Number [facility] [place] [address] * (ABNORMAL) pro-Brain Natriuretic Peptide (07/11/2016 12:54 PM EDT) NT-proBNP 169(H) <=125 pg/mL [facility] Blood specimen (specimen) 07/11/2016 12:54 PM EDT 07/11/2016 1:02 PM EDT Narrative Resulting Agency Comment Spec In Lab Brady Ugarte MD CHEMISTRY ORDERABLES [facility] [place] [address] * Comprehensive metabolic panel (non-fasting) (07/11/2016 12:54 PM EDT) Glucose 124 65 - 199 mg/dL [facility] Comment:Diabetes: >=200 mg/d L plus symptoms Blood Urea Nitrogen 19 10 - 20 mg/dL [facility] Creatinine 0.89 0.80 - 1.50 mg/dL [facility] Comment: Please note that the pediatric reference intervals supplied above were not validated at [facility]. Results from pediatric patients should be interpreted in conjunction to the patient's age, height and muscle mass. Sodium 140 135 - 145 mmol/L [facility] Potassium 4.1 3.5 - 5.0 mmol/L [facility] Comment: Please note: ??Patients with WBC >100,000 may have falsely elevated Potassium levels. ??For accurate Potassium quantification in these patients send serum separator tube (gold top) for subsequent determinations. ??Contact the Clinical Chemistry Laboratory if there are any questions. Chloride 101 98 - 107 mmol/L [facility] Carbon Dioxide 26 22 - 31 mmol/L [facility] Anion Gap 13 5 - 15 mmol/L [facility] Calcium 9.4 8.5 - 10.5 mg/dL [facility] Protein, Total 6.6 6.1 - 8.0 gm/dL [facility] Albumin 3.9 3.2 - 5.2 gm/dL [facility] Aspartate Aminotransferase 13 0 - 39 unit/L [facility] Alanine Aminotransferase 14 0 - 55 unit/L [facility] Alkaline Phosphatase 47 40 - 120 unit/L [facility] Bilirubin, Total 0.9 0.2 - 1.3 mg/dL [facility] Bilirubin, Direct 0.2 0.0 - 0.3 mg/dL [facility] Est Glomerular Filtration Rate >60 >=60 [facility] Comment: This estimated GFR (eGFR) value [...] the following links into your internet browser. [email or web address] Blood specimen (specimen) 07/11/2016 12:54 PM EDT 07/11/2016 1:02 PM EDT Narrative Resulting Agency Comment Spec In Lab Brady Ugarte MD CHEMISTRY ORDERABLES Performing Organization Address City/State/[facility] Co de Phone Number [facility] [place] [address] documented in this encounter Visit Diagnoses Diagnosis Heart failure, unspecified Cardiomyopathy, unspecified SOB (shortness of breath) Shortness of breath Biventricular implantable cardioverter-defibrillator in situ Non-ischemic cardiomyopathy Other primary cardiomyopathies Chronic systolic heart failure Other chest pain Pericarditis, unspecified chronicity, unspecified type documented in this encounter Care Teams Layout Designer Relationship Specialty Start Date End Date Carlos Valdez MD [address] [place] [address] PCP - General 03/25/11 08/07/22 documented as of this encounter
--- OUTSIDE RECORDS SUMMARY | 2023-12-11 18:46 | XMS_ITS | Encounter Summary ---
Author Organization [facility] [place] [address] Care Team Providers Care Microsoft Crm Developer Name Role Phone Carlos Valdez MD Primary Care Provider [phone] Reason for Visit * Reason Comments Medication Refill Encounter Details Date Type Department Care Team (Late st Contact Info) Description 08/02/2015 Refill Cardiology at [address] [id number] Brady Ugarte MD [facility] [place] [address] Medication Refill Social History Tobacco Use Types [...] AM EST Hospital Encounter Non-[place] [id number] Arrived documented as of this encounter Visit Diagnoses Not on filedocumented in this encounter Care Teams Microsoft Crm Developer Relationship Specialty Start Date End Date Carlos Valdez MD [address] [place] [address] PCP - General 03/25/11 08/07/22 documented as of this encounter
--- OUTSIDE RECORDS SUMMARY | 2023-12-11 18:46 | XMS_ITS | Encounter Summary ---
Author Organization [facility] Address [facility] [place] [address] Care Team Providers Care Peanut Sheller Name Role Phone Charli Jaramillo MD Primary Care Provider [phone] Reason for Visit * Reason Comments Follow-up Encounter Details Date Type Department Care Team ([facility] st Contact Info) Description 10/19/2015 3:30 PM EDT Office Visit Cardiology at [address] [address] Sancho Glass MD [facility] [place] [address] Cardiomyopathy; Chronic diastolic congestive heart failure; Other pericarditis; SOB (shortness of breath) Social [...] Time Taken Comments Blood Pressure 150/85 10/19/2015 2:51 PM EDT Pulse 60 10/19/2015 2:51 PM EDT Temperature - - Respiratory Rate - - Oxygen Saturation 95% 10/19/2015 2:51 PM EDT room air Inhaled Oxygen Concentration - - Weight 107.3 kg (236 lb 8 oz) 10/19/2015 2:51 PM EDT Height 195.6 cm (6' 5.01) 10/19/2015 2:51 PM ED T Body Mass Index 28.04 10/19/2015 2:51 PM EDT documented in this encounter Progress Notes * Sancho Glass MD - 10/19/2015 3:30 PM EDT Images from the original note were not included. [facility] [place] Section of Advanced Heart Failure Cardiology [facility] [place] [address] OUTPATIENT VISIT DATE: 10/19/15 OUTPATIENT VISIT TYPE: Follow up (new to me) PRIMARY CARE PHYSICIAN: CHARLI JARAMILLO MD REFERRING PHYSICIAN: None CHIEF COMPLAINT: F/u visit for NICM (s/p SPANISH PROFESSOR), worsening fatigue RELEVANT CARDIAC HISTORY: Jimmie Mccauley is a 70 y.o. male with a history of: # NICM (with improved EF on SPANISH PROFESSOR) - index 2001. EF 35%. [facility] at that time, normal coronaries. - LBBB. - 2002 - 25% - 2004 - 50% - 2006 - 20% - 2009 - 44% - note had PPM in 2012 for CHB. Had drop in EF with RV pacing. Upgraded to SPANISH PROFESSOR-D - 2012 - 36%. - 2013 50-55% - 01/2015 - 59% # CHB - 2013. Had PPM. 100% paced with drop in EF. Went on to SPANISH PROFESSOR upgrade with improvement in EF. # pericarditis - post pacer implant. Increased CRP. Effusion. RX'd with NSAIDS and colchicine. # Hx ETOH abuse # Mild non-obstructive CAD - on [facility] 2012. Mild LAD and LCx. 30-40% RCA. # PE - 2012. Had been doing lot of traveling. RX coumadin. No longer on anticoagulation. HISTORY OF PRESENT ILLNESS: History as above in updated problem list. Patient is here for a 6 month follow- up visit. Last visitwas with Dr. Ugarte in January. He was complaining of increased fatigue at that time. He was felt kate euvolemic on exam. He had good BiV pacing percentage. Echo showed an EF of 59%. He had mild LVH on the echo so Dr. Ugarte ordered serum free light chains, SPEP and UPEP for todays labs. Interval events: There is a phone call note from Dr. Ugarte in July where the patient had some pleuritic chest discomfort and fever felt to be a viral illness. Today, the patient reports he is overall stable from the cardiovascular perspective. His major complaint continues to be fatigue. He thinks it is getting worse and attributes it to the carvedilol. Otherwise he feels good. No SOB. Mild CORNEJO. No orthopnea or PND or lower extremity edema. No chest pain. No palpitations or syncope. He is compliant with medications. OUTPATIENT MEDICATIONS: Current Outpatient Prescriptions Medication Sig ??? multivitamin (THERAGRAN) Tablet Take 1 tablet by mouth daily. ??? COREG CR 40 mg Cap, Multiphasic Release 24 hr TAKE 1 CAPSULE DAILY ??? losartan (COZAAR) 50 mg Tablet take 1 tablet by mouth once daily ??? pravastatin (PRAVACHOL) 10 mg Tablet Take 10 mg by mouth daily. ??? yxrwthz-vmtziwkiwthzz-soekxgli (EXCEDRIN MIGRAINE) 250-250-65 mg per tablet Take 1 tablet by mouth every 6 hours as needed. ??? ibuprofen (ADVIL;MOTRIN) 200 mg tablet Take 400 mg by mouth every 6 hours as needed. ??? hydroCODone-acetaminophen (VICODIN) 5-500 mg per tablet Take 1 tablet by mouth every 6 hours asneeded. ??? sildenafil (VIAGRA) 100 mg tablet Take 1 tablet by mouth once as needed. ??? zolpidem (AMBIEN) 10 mg tablet Take 1 tablet by mouth nightly. ALLERGIES: Allergies Allergen Reactions ??? Lasix [Furosemide] Rash PAST MEDICAL HISTORY: Patient Active Problem List Diagnosis Code ??? Non-ischemic cardiomyopathy I42.9 ??? Heart failure chronic systolic dysfunction I50.9 ??? Alcohol use Z78.9 ??? LBBB (left bundle branch block) I44.7 ??? Complete heart block I44.2 ??? HX SUDDEN CARDIAC ARREST ??? Pericarditis I31.9 ??? Pulmonary embolism I26.99 ??? 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 R07.9 ??? Biventricular implantable cardioverter-defibrillator in situ Z95.810 PAST SURGICAL HISTORY: Past Surgical History Procedure Laterality Date ??? Pro colonoscopy, diagnostic 03/31/2011 COLONOSCOPY, DIAGNOSTIC performed by ISAEL CODY at [facility] ENDOSCOPY FAMILY HISTORY: family history is not on file. SOCIAL HISTORY: Social History Substance Use Topics ??? Smoking status: Former Smoker Types: Cigarettes Quit date: 01/12/1996 ??? Smokeless tobacco: Never Used Comment: stopped 15 years ??? Alcohol use 0.5 oz/week 1 drink(s) per week Comment: 1 drink a day REVIEW OF SYSTEMS: See HPI above for pertinent positives and negatives. All other ROS negative by system (including general, HEENT, pulmonary, gastrointestinal, genitourinary, musculoskeletal, endocrine, hematologic, extremity, skin, neurology, and psychiatric) with exceptions below. PHYSICAL EXAMINATION: VITALS: BP 150/85 Pulse 60 Ht (!) 195.6 cm (6' 5.01) Wt (!) 107.3 kg (236 lb 8 oz) SpO2 95% Comment: room air BMI 28.04 kg/m2 GENERAL: Pleasant and in no acute distress HEENT: anicteric sclerae, no injection. Throat clear. NECK: Supple with full ROM. No LAD. Trachea midline. JVP visualized and is not elevated. CARDIAC: No abnormal precordial movements. RRR with normal S1 and S2. Distant heart sounds. No murmurs, rub, or gallops noted. VASCULAR: Normal carotid upstroke, no bruits. Normal radial pulse b/l. PULMONARY: symmetrical expansion. Clear lungs bilaterally. ABDOMEN: Positive bowel sounds. Soft, NT, ND. No rebound or guarding. EXTREMITY: Warm. No edema. No erythema. SKIN: No concerning lesions noted on areas of skin visualized during exam. LYMPHATICS: No cervical or supraclavicular lymphadenopathy noted. NEUROLOGICAL: Alert and oriented. PSYCH: Mood appropriate. LABS: Recent Labs 10/19/15 1406 NA 143 K 4.2 CL 103 CO2 25 BUN 20 CREATININE 0.96 Recent Labs 10/19/15 1406 AST 16 ALT 13 ALKPHOS 43 BILITOT 1.0 BILIDIR 0.2 Recent Labs 10/19/15 1406 CALCIUM 9.5 Recent Labs 10/19/15 1406 WBC 8.9 HGB 16.1 HCT 46.6 PLATELET 207 No results for input(s): INR in the last 168 hours. No results for input(s): CK, TROPONINT in the last 168 hours. No results for input(s): TSH in the last 7068 hours. No results for input(s): HA1C in the last 7068 hours. Lab Results Component Value Date CHLPL 179 01/11/2012 HDL 52 01/11/2012 CHOLHDL 3.4 01/11/2012 TRIG 131 01/11/2012 LDLCHOL 101 (H) 01/11/2012 PROBNP Date Value Ref Range Status 10/19/2015 166 (H) <=125 pg/mL Final 02/03/2015 90 <=125 pg/mL Final 08/07/2014 191 (H) <=125 pg/mL Final 02/03/2014 150 (H) <=125 pg/mL Final 07/11/2013 233 (H) <=125 pg/mL Final CARDIOLOGY RELEVANT STUDIES: Reviewed and in epic. Most recent echo was 01/2015 with EF 59%. Device check today - 99% biV pacing. No sustained tachyarrhythmias. No tachytherapies. I thoroughly reviewed the patient's current clinical status, the pertinent laboratory and recent cardiovascular or imaging studies, and the active management plan. IMPRESSION / PLAN / RECOMMENDATIONS: Jimmie Mccauley is a 70 y.o. male with history as above, seen in the cardiology clinic today with the following impression and plan: 1. NICM with recovery of LV function on SPANISH PROFESSOR Stable from the CV perspective. Weight 4 lbs up. BNP stable. Euvolemic on exam. NYHA functional class II. ACC/AHA stage C. - has significant fatigue. Try reducing dose of coreg. - continue losartan. Recommend increasing dose given reduction of coreg (and BP today 150/85) but patient prefers to watch BP at home and only increase the losartan if BP elevated (he reports BP is well controlled on home checks). - intolerant to aldactone in past (hives). ? eplerenone if EF deteriorates in future. - SPANISH PROFESSOR-D in place. Device check today. 99% biV paced. - SPEP, UPEP and serum free light chains ordered by Dr. Ugarte for today's visit given some LVH on prior echo. Results pending. 2. CHB - s/p PPM. Later upgraded to SPANISH PROFESSOR. - device check today 3. Hx pericarditis - no chest pain - ESR normal today 4. Non-obstructive subclinical CAD Had 40% RCA disease on [facility] 2012. No angina. - recommend starting ASA 81mg daily - on statin and BB COUNSELING: The signs and symptoms to be aware of for more urgent evaluation were discussed and all questions addressed. The patient was counseled to continue cardiovascular care management and self management principles and to notify providers of any change in clinical status. Additionally, we discussed the fo llowing non-pharmacological measures during this visit: ??? Dietary and medication compliance ??? Monitoring daily weights and blood pressures ??? When to call our office FOLLOW UP: Followup appointment [address] Ugarte with echo and device check Sancho Glass MD, [facility] Staff Lace [employer] Section of Advanced Heart Failure [facility] [employer] Teachercan handler [facility] [employer] [facility] documented in this encounter Plan of Treatment Upcoming Encounters Date Type Department Care Team (Late st Contact Info) Description 02/26/2024 10:00 AM EST Hospital Encounter Non-Invasive [place] [address] Arrived documented as of this encounter Results * Protein Electrophoresis, urine, random (10/19/2015 2:07 PM EDT) Protein, Urine 9 0 - 12 mg/dL [facility] U Albumin 45 % total [facility] Globulin, Urine 55 % total [facility] M1 Band, Urine None Detected [facility] UPEP Comments See Note [facility] Comment: There is no evidence of clonal free light chains in this patient's urine sample. Urine specimen (specimen) 10/19/2015 2:07 PM EDT 10/19/2015 2:13 PM EDT Narrative Resulting Agency Comment Spec In Lab Sancho Glass MD URINE ORDERABLES Performing Organization Address [facility] Co de Phone Number [facility] [place] [address] * Protein Electrophoresis, serum (10/19/2015 2:06 PM EDT) [facility] Total Prot Electrophoresis 6.5 6.1 - 8.0 gm/dL [facility] Albumin Electrophoresis 4.41 3.60 - 6.00 gm/dL [facility] Alpha 1 Globulin 0.16 0.10 - 0.30 gm/dL [facility] Alpha 2 Globulin 0.67 0.40 - 0.90 gm/dL [facility] Beta Globulin 0.66 0.50 - 1.00 gm/dL [facility] Gamma Globulin 0.59 0.50 - 1.30 gm/dL [facility] M1 Band None Detected [facility] Blood specimen (specimen) 10/19/2015 2:06 PM EDT 10/19/2015 2:13 PM EDT Narrative Resulting Agency Comment Spec In Lab Sancho Glass MD CHEMISTRY ORDERAB LES Performing Organization Address [facility] Co de Phone Number [facility] [place] [address] * High Sensitivity CRP (10/19/2015 2:06 PM EDT) [facility] C-Reactive Protein High Sensitivity 3.2 mg/L [place] [...] the test package insert) References: 1. Lashanda VALDES et. al. ??AHA/CDC Scientific Statement: Markers of Inflammation and Cardiovascular Disease. ??Circulation 2003; 107:499-511 2. Lissker PM. ??Clinical applications of C-reactive protein for cardiovascular disease detection and prevention. ??Circulation 2003; 107:363-369 Blood specimen (specimen) 10/19/2015 2:06 PM EDT 10/19/2015 2:13 PM EDT Narrative Resulting Agency Comment Spec In Lab Sancho Glass MD CHEMISTRY ORDERAB LES Performing Organization Address [facility] Co de Phone Number [facility] [place] [address] * (ABNORMAL) Free Light Chains, Serum (10/19/2015 2:06 PM EDT) [place] Free Light Chains 2.09(H) 0.33 - 1.94 mg/dL [facility] Lambda Free Light Chains 1.53 0.57 - 2.63 mg/dL [facility] [place]/Lambda Free Light Chain Ratio 1.3660 0.2600 - 1.6500 [facility] Blood specimen (specimen) 10/19/2015 2:06 PM EDT 10/19/2015 2:13 PM EDT Narrative Resulting Agency Comment Spec In Lab Sancho Glass MD CHEMISTRY ORDERAB LES Performing Organization Address [facility]/ZIP Co de Phone Number [facility] [place] [address] * Sedimentation rate (10/19/2015 2:06 PM EDT) Pathologist [facility] Sedimentation Rate Automated 4 0 - 15 mm/hr [facility] Blood specimen (specimen) 10/19/2015 2:06 PM EDT 10/19/2015 2:13 PM EDT Narrative Resulting Agency Comment Spec In Lab Sancho Glass MD HEMATOLOGY ORDERA BLES Performing Organization Address [facility]/ZIP Co de Phone Number [facility] [address] * (ABNORMAL) pro-Brain Natriuretic Peptide (10/19/2015 2:06 PM EDT) [facility] NT-proBNP 166(H) <=125 pg/mL [facility] Blood specimen (specimen) 10/19/2015 2:06 PM EDT 10/19/2015 2:13 PM EDT Narrative Resulting Agency Comment Spec In Lab Sancho Glass MD CHEMISTRY ORDERAB LES Performing Organization Address [facility]/ZIP Co de Phone Number [facility] [place] [address] * Comprehensive metabolic panel (non-fasting) (10/19/2015 2:06 PM EDT) [facility] Glucose 101 65 - 199 mg/dL [facility] Comment:Diabetes: >=200 mg/d L plus symptoms Blood Urea Nitrogen 20 10 - 20 mg/dL [facility] Creatinine 0.96 0.80 - 1.50 mg/dL [facility] Comment: Please note that the pediatric reference intervals supplied above were not validated at [facility]. Results from pediatric patients should be interpreted in conjunction to the patient's age, height and muscle mass. Sodium 143 135 - 145 mmol/L [facility] Potassium 4.2 3.5 - 5.0 mmol/L [facility] Comment: Please note: ??Patients with WBC >100,000 may have falsely elevated Potassium levels. ??For accurate Potassium quantification in these patients send serum separator tube (gold top) for subsequent determinations. ??Contact the Clinical Chemistry Laboratory if there are any questions. Chloride 103 98 - 107 mmol/L [facility] Carbon Dioxide 25 22 - 31 mmol/L [facility] Anion Gap 15 5 - 15 mmol/L [facility] Calcium 9.5 8.5 - 10.5 mg/dL [facility] Protein, Total 6.6 6.1 - 8.0 gm/dL [facility] Albumin 4.2 3.2 - 5.2 gm/dL [facility] Aspartate Aminotransferase 16 0 - 39 unit/L [facility] Alanine Aminotransferase 13 0 - 55 unit/L [facility] Alkaline Phosphatase 43 40 - 120 unit/L [facility] Bilirubin, Total 1.0 0.2 - 1.3 mg/dL [facility] Bilirubin, Direct 0.2 0.0 - 0.3 mg/dL [facility] Est Glomerular Filtration [...] the following links into your internet browser. [email or web address] Blood specimen (specimen) 10/19/2015 2:06 PM EDT 10/19/2015 2:13 PM EDT Narrative Resulting Agency Comment Spec In Lab Sancho Glass MD CHEMISTRY ORDERAB LES [facility] [place] [address] documented in this encounter Visit Diagnoses Diagnosis Cardiomyopathy Other primary cardiomyopathies Chronic diastolic congestive heart failure Chronic diastolic heart failure Other pericarditis SOB (shortness of breath) Shortness of breath documented in this encounter Care Teams Peanut Sheller Relationship Specialty Start Date End Date Charli Jaramillo MD [address] [place] [address] PCP - General 03/25/11 08/07/22 documented as of this encounter
--- OUTSIDE RECORDS SUMMARY | 2023-12-11 18:46 | XMS_ITS | Encounter Summary ---
[place] [address] Care Team Providers Care Public Information Officer Name Role Phone Carlos Valdez MD Primary Care Provider [phone] Reason for Visit * Reason Comments Cardiomyopathy Encounter Details Date Type Department Care Team (Late st Contact Info) Description 07/11/2016 3:00 PM EDT Office Visit Cardiology at [address] [phone] Maki Gamez RN Non-ischemic cardiomyopathy Social History [...] Time Taken Comments Blood Pressure 150/90 07/11/2016 3:01 PM EDT Pulse 62 07/11/2016 3:01 PM EDT Temperature - - Respiratory Rate - - Oxygen Saturation 95% 07/11/2016 3:01 PM EDT Inhaled Oxygen Concentration - - Weight 106.6 kg (235 lb 1.6 oz) 07/11/2016 3:01 PM EDT Height 198.1 cm (6' 6) 07/11/2016 3:01 PM EDT Body Mass Index 27.17 07/11/2016 3:01 PM EDT documented in this encounter Progress Notes * Maik Gamez RN - 07/11/2016 3:00 PM EDT Images from the original note were not included. Clinical Electrophysiology Device Service Note Pacemaker Clinic Follow-Up Jimmie Mccauley is a 71 y.o. male who presents today in the device clinic for MIRROR FABRICATION SUPERVISOR- D programming evaluation, wound check with iterative changes made to the device for testing purposes. He had an elective generator replacement done secondary to a recall 03/25/2016. He originally had a pacemaker implanted 06/14/2012 for CHB. This was done at [facility] in [place], [place]. He underwent upgrade to MIRROR FABRICATION SUPERVISOR-D on 02/18/2013 for CHF, CM, ventricular dyssynchrony. He is seeing Dr. Ugarte to follow. Senior Hr Generalist: Brady Ugarte MD PCP: Carlos Valdez MD Final Parameters at Implant: (Old) Ventricular electrode: [employer] Model# 7122Q-58 cm Serial #[id number] Implanted 02/18/2013 (old) Atrial electrode: [employer] System ([place]), Model # 5568-52 cm Serial # [id number] Implanted 06/14/2012 (old) Coronary sinus electrode: [employer] 1458Q/86 Serial number [id number] Implanted 02/18/2013 New Pulse Generator: [employer] [id number] Serial number [id number] Implanted 03/25/2016 Follow Up Today: Settings: Bi-V DDDR 70/130/130, PAV 200 ms, ROSAURA 150 ms, LV->RV 30 ms, mode switch 180 bpm Underlying rhythm: SR 70 bpm with CHB Heart rate histograms: Good distribution Atrial lead impedance: 360 ohms RV lead impedance: 390 ohms LV lead impedance: 860 ohms M3-M2 RV shock impedance 69 ohms RV to Can Lead impedance trends stable P wave: 2.4 mV R wave: None at VVI 40 Atrial capture threshold: 2.0 V @ 1.0 ms. Chronically elevated in former pacemaker as well. A Cap Confirm was NOT recommended RV capture threshold: 0.75 V at 0.5 ms. RV Cap Confirm recommended LV capture threshold: 1.25 V at 0.5 ms M3-M2. LV Cap Confirm recommended. Chronically elevated Pacing percentages: AP 37 %; ENROLLMENT COUNSELOR >99% Mode switch episodes: inaccurate- 4, 329 for atrial lead far-field R wave oversensing VHR: None Battery: 22 uA, 94%, est 4.1 -5.3 years to MARY BETH Charge time: 9.8 sec 03/25/2016 Changes made this session: PVAB increased from 90 to 120 msec to prevent ventricular oversensing Atrial Pulse output amplitude decreased from 5.0 to 4.0V (@ 1.0 ms) LV Pulse amplitude increased from 2.0-2.25V via device auto Incision assessment: L chest healed, device is prominent. Skin intact Plan: Remote in 3 months, RTC in [address] Ugarte Provider: Izzy Holt RN Attending: Dr. Barreto Addendum I have personally reviewed the available device interrogation and agree with the essential elementsas outlined in Ms. Gamez's note's. I would add the following. Overall normal MIRROR FABRICATION SUPERVISOR-D functioning, with excellent biventricular pacing, 99%. Known chronically elevated atrial lead capture threshold. No significant or treated arrhythmias.Far-field R wave on atrial lead is generating erroneous mode switch episodes (no actual atrial fibrillation noted), so PVAB extended as above. Toni Barreto MD Cardiac Electrophysiology [place] Attending Physician documented in this encounter Plan of Treatment Upcoming Encounters Date Type Department Care Team (Late st Contact Info) Description 02/26/2024 10:00 AM [facility] Hospital Encounter Non-Invasive [place] [phone] Arrived documented as of this encounter Visit Diagnoses Diagnosis Non-ischemic cardiomyopathy Other primary cardiomyopathies documented in this encounter Care Teams Public Information Officer Relationship Specialty Start Date End Date Carlos Valdez MD [address] [place] [address] PCP - General 03/25/11 08/07/22 documented as of this encounter
--- OUTSIDE RECORDS SUMMARY | 2023-12-11 18:46 | XMS_ITS | Encounter Summary ---
[place] [address] Care Team Providers Care Assistant Import Manager Name Role Phone Carlos Valdez MD Primary Care Provider [phone] Encounter Details Date Type Department Care Team (Late st Contact Info) Description 01/26/2016 Orders Only Cardiology at [address] [phone] Social History Tobacco Use Types Packs/Day Years [...] AM EST Hospital Encounter Non-Invasive [place] [address] Arrived documented as of this encounter Procedures Procedure Name Priority Date/Time Associated Diagnosis Comments CARDIAC DEVICE CHECK - REMOTE SCHEDULED Routine 01/26/2016 4:27 AM EST documented in this encounter Results * Cardiac device check - Remote Scheduled (01/26/2016 4:27 AM EST) [facility] Implantable Pulse Generator Type Cardiac Resynchronization Therapy - Defibrillator [facility] Implantable Pulse Generator Model 3249-40 [facility] Implantable Pulse Generator Serial Number [id number] [facility] Implantable Pulse Generator Fiberglass Fabricator [facility] IDCO Implantable Pulse Generator Implant Date [facility] Implantable Pulse Generator Implanter N/A [facility] Implantable Pulse Generator Implanter Contact Information N/A [facility] Implantable Pulse Generator Implanting Facility N/A [facility] Implantable Lead Special Function Sense and Pace in RA [facility]CO Implantable Lead Model 5568 [facility] Implantable Lead Serial Number [id number] [facility] Implantable Lead Fiberglass Fabricator Medtronic IDCO Implantable Lead Implant Date IDCO Implantable Lead Polarity Type Bipolar Lead [facility] Implantable Lead Location Right Atrium IDCO Implantable Lead Connection Status Connected [facility] Implantable Lead Special Function Pace in LV [facility] Implantable Lead Model 1458Q Quartet(R) [facility] Implantable Lead Serial Number [id number] [employer] Implantable Lead Fiberglass Fabricator [facility] IDCO Implantable Lead Implant Date [facility]CO Implantable Lead Polarity Type Quadripolar Lead [facility] Implantable Lead Location Left Ventricle [facility] Implantable Lead Connection Status Connected [facility] Implantable Lead Special Function Defibrillation in RV [facility] Implantable Lead Model 7122Q Durata(R) [facility] Implantable Lead Serial Number [id number] [employer] Implantable Lead Fiberglass Fabricator [facility] IDCO Implantable Lead Implant Date IDCO Implantable Lead Polarity Type Bipolar Lead IDCO Implantable Lead Location Right Ventricle IDCO Implantable Lead Connection Status Connected IDCO Date Time Interrogation Session [id number] IDCO Type Interrogation Session Remote Scheduled [facility]CO Re-programmed During Session NO IDCO Date Time Previous Interrogation Session [id number] [facility]CO Clinician Name Ciaran Medel IDCO Clinician Contact Information Phone: <[phone]> IDCO Clinic Name [facility] [place] IDCO Battery Date Time of Measurements [id number] IDCO Battery Status Middle of Service IDCO Battery Voltage 2.9 V IDCO Battery Remaining Longevity 31 mo IDCO Battery Remaining Percentage 49.0 % IDCO Battery TIRE STRIPPER Trigger When current voltage < 2.59 volts IDCO Capacitor Charge Type Reformation IDCO Capacitor Last Charge Date Time [id number] IDCO Capacitor Charge Time 9.8 s IDCO Capacitor Charge Energy 40 J IDCO Lead Channel Measurements Date and Time Start [id number] [facility] Lead Channel Measurements Date and Time End [id number] ID[facility] Lead Channel Sensing Intrinsic Amplitude 1.8 mV IDCO Lead Channel Sensing Polarity Bipolar IDCO Lead Channel Pacing Threshold Amplitude 2.75 V IDCO Lead Channel Pacing Threshold Pulse Width 1.0 ms IDCO Lead Channel Pacing Threshold Polarity Bipolar IDCO Lead Channel Pacing Threshold Measurement Method Violent [employer]imes Detective Manual IDCO Lead Channel Impedance Value 400 Ohm IDCO Lead Channel Impedance Polarity Bipolar IDCO Lead Channel Status Null IDCO Lead Channel Measurements Date and Time Start [id number] IDCO Lead Channel Sensing Intrinsic Amplitude 8.5 mV IDCO Lead Channel Sensing Polarity Bipolar IDCO Lead Channel Pacing Threshold Amplitude 0.75 V IDCO Lead Channel Pacing Threshold Pulse Width 0.5 ms IDCO Lead Channel Pacing Threshold Polarity Bipolar IDCO Lead Channel Pacing Threshold Measurement Method Device Automatic IDCO Lead Channel Impedance Value 400 Ohm IDCO Lead Channel Impedance Polarity Bipolar IDCO Lead Channel Status Null IDCO Lead Channel Measurements Date and Time End [id number] IDCO Lead Channel Measurements Date and Time Start [id number] IDCO Lead Channel Measurements Date and Time End [id number] IDCO Lead Channel Pacing Threshold Amplitude 2.0 [...] Lead High Voltage Channel Status Null [facility]CO ELECTROSTATIC PAINTER LV-RV Delay 30 ms IDCO Ventricular chambers paced during ELECTROSTATIC PAINTER pacing. BiV IDCO Magnet Response Normal IDCO [...] Adaptive IDCO Lead Channel Setting Sensing Sensitivity 0.2 mV IDCO Lead Channel Setting Sensing Adaptation Mode Adaptive IDCO Lead Channel Setting Sensing Sensitivity 0.3 mV IDCO Lead Channel Setting Pacing Amplitude 4.0 V IDCO Lead Channel Setting Pacing Amplitude 2.0 V IDCO Lead Channel Setting Pacing Amplitude 2.5 V IDCO Lead Channel Setting Pacing Pulse [...] Setting Pacing Capture Mode Fixed Pacing IDCO Lead Channel Setting Pacing Capture Mode Adaptive IDCO Lead Channel Setting Pacing Capture Mode Adaptive IDCO [facility]_IDC_SET_LEAD HVCHNL_SHOCK_VEC TOR_ANODE_LOCATI ON_1 Right Ventricle IDCO [facility]_IDC_SET_LEAD HVCHNL_SHOCK_VEC TOR_ANODE_ELECTR ODE_1 Coil IDCO [facility]_IDC_SET_LEAD HVCHNL_SHOCK_VEC TOR_CATHODE_LOCA TION_1 Other IDCO [facility]_IDC_SET_LEAD HVCHNL_SHOCK_VEC TOR_CATHODE_ELEC TRODE_1 Can [...] {shocks } IDCO Statistic Date Time Start [id number] IDCO Statistic Date Time End [id number] IDCO Statistic Heart Rate Date Time End [id number] IDCO Statistic Heart Rate Date Time Start [id number] IDCO Statistic Atrial Heart Rate Min 50 {beats} /min IDCO Statistic Atrial Heart Rate Mean 68 {beats} /min IDCO Statistic Atrial Heart Rate Max 330 {beats} /min IDCO Statistic Ventricular Heart Rate Min 50 {beats} /min IDCO Statistic Ventricular Heart Rate Mean 68 {beats} /min IDCO Statistic Ventricular Heart Rate Max 330 {beats} /min IDCO Grabiel Statistic Date Time End [id number] IDCO Grabiel Statistic Date Time Start [id number] IDCO Grabiel Statistic RA Percent Paced 45.0 % IDCO Grabiel Statistic AP BUSINESS SERVICES CLERK Percent 46.0 % IDCO Grabiel Statistic BUSINESS SERVICES CLERK Percent 54.0 % IDCO Grabiel Statistic AP VS Percent 1.0 % IDCO Grabiel Statistic VS Percent 1.0 % IDCO Atrial Tachy Statistic Date Time Start [id number] IDCO Atrial Tachy Statistic Date Time End 14252575436454 IDCO Atrial Tachy Statistic Maximum Mode Switch Duration 10 s IDCO Atrial Tachy Statistic Percent Time In Mode Switch 1 % IDCO Atrial Tachy Statistic Number Of Mode Switches 2 {switch es} IDCO Atrial Tachy Statistic Number Of Mode Switches Per Day 0 {switch es} IDCO Atrial Tachy Statistic AT/AF [place] Percent 1 % IDCO ELECTROSTATIC PAINTER Statistic Date Time Start [id number] IDCO ELECTROSTATIC PAINTER Statistic Date Time End [id number] IDCO ELECTROSTATIC PAINTER Statistic ELECTROSTATIC PAINTER Percent Paced 99.0 % IDCO Therapy Statistic Recent Date Time End [id number] IDCO Therapy Statistic Recent Date Time Start [id number] IDCO Therapy Statistic Recent Shocks Delivered 0 {shocks } IDCO Therapy Statistic Recent Shocks Aborted 0 {shocks } IDCO Therapy Statistic Recent ATP Delivered 0 {seq} IDCO Episode Statistic Recent Date Time Start [id number] IDCO Episode Statistic Recent Date Time End [id number] IDCO Episode Identifier [id number] IDCO Episode Date Time [id number] IDCO Episode Detection And Therapy Details AMS IDCO Episode Duration 10 s IDCO Episode Vendor Type Category AMS IDCO Episode Type Category Other IDCO Episode Identifier [id number] IDCO Episode Date Time [id number] IDCO Episode Detection And Therapy Details AMS IDCO Episode Duration 6 s IDCO Episode Vendor Type Category AMS IDCO Episode Type Category Other [facility]CO Anatomical Region Laterality Modality Other 01/26/2016 4:27 AM EST Physician Cardiology IMPLANTABLE CARD IAC DEVICE documented in this encounter Visit Diagnoses Not on filedocumented in this encounter Care Teams Assistant Import Manager Relationship Specialty Start Date End Date Carlos Valdez MD [address] [place] [address] PCP - General 03/25/11 08/07/22 documented as of this encounter
--- OUTSIDE RECORDS SUMMARY | 2023-12-11 18:46 | XMS_ITS | Encounter Summary ---
[facility] [place] [address] Care Team Providers Care Tapper Balance Wheel Screw Hole Name Role Phone Carlos Valdez MD Primary Care Provider [phone] Encounter Details Date Type Department Care Team (Late st Contact Info) Description 07/27/2015 Telephone [place] [phone] Kaley Pacheco RN Social History Tobacco Use Types Packs/Day [...] encounter Miscellaneous Notes * Telephone Encounter - Xin Grewal APRN - 07/27/2015 9:54 AM EDT Reviewed remote device download. No sustained events. 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 XIN GREWAL APRN * Telephone Encounter - Kaley Pacheco RN - 07/27/2015 9:19 AM EDT Pt calls with c/o, random pain shoulder to shoulder Reports the pain is sharp and intermittent. He also has a dull achey pain just under left nipple. Denies SOB. Reports he does have chills. Initially denies fever, upon checking temp reports 100.0F. BP 145/90 pulse 103 (my pulse is usually in the 60's). Just don't feel well. Sx all started last night. Pt reports hx of pericarditis and states these sx are similar. Discussed above with Xin Grewal, TATIANA pt advised to seek evaluation local ER and he will do. Also advised to download data from his device and will do so as well. documented in this encounter Plan of Treatment Upcoming Encounters Date Type Department Care Team (Late st Contact Info) Description 02/26/2024 10:00 AM [facility] Hospital Encounter [place] [phone] Arrived documented as of this encounter Visit Diagnoses Not on filedocumented in this encounter Care Teams Tapper Balance Wheel Screw Hole Relationship Specialty Start Date End Date Carlos Valdez MD [address] [place] [address] PCP - General 03/25/11 08/07/22 documented as of this encounter
--- OUTSIDE RECORDS SUMMARY | 2023-12-11 18:46 | XMS_ITS | Encounter Summary ---
[place] [address] Care Team Providers Care Carpenter/Labor Name Role Phone Carlos Valdez MD Primary Care Provider [phone] Encounter Details Date Type Department Care Team (Late st Contact Info) Description 09/27/2016 Orders Only Cardiology at [address] [phone] Social History Tobacco Use Types Packs/Day Years [...] as of this encounter Progress Notes * Dheeraj Herzog MD - 09/27/2016 2:10 PM EDT Cardiac Electrophysiology Cardiac Rhythm Device Remote Data Transmission Remote transmission of this patient's defibrillator/pacemaker data occurred September 27, 2016. Cell voltage and charge time: Acceptable Estimated longevity ~4-5 years Presenting Rhythm at Remote Transmission: Atrial and biventricular paced rhythm Comments (interval data since last reset March 25, 2016): Atrial Lead: Acceptable atrial lead sensing and impedance Atrial pacing 38% Atrial dysrhythmias detected: AT/AF 0% (4329 mode switched, all <30 seconds duration except 1 that was 1-5 minutes) Left Ventricular Lead: Acceptable ventricular lead capture threshold and impedance Right Ventricular Lead: Acceptable ventricular lead capture threshold, sensing, and impedances Ventricular pacing >99% Ventricular dysrhythmias detected: None since July 11 interrogation Alerts: None Conclusion: Normal device function. Biventricular pacing >99%. No significant dysrhythmias detected. __ Dheeraj Herzog MD, [facility] Cardiac Electrophysiology __ For more detailed defibrillator/pacemaker and lead specifics, and also for detailed interrogation data, please note the Orders Only hyperlink at the bottom of this electronic document, clicking on which exposes a Cardiac rhythm device - Remote Scheduled hyperlink; that secondary hyperlink provides access to all associated full disclosure documents (under the 'Linked Documents' section). documented in this encounter Plan of Treatment Upcoming Encounters Date Type Department Care Team (Late st Contact Info) Description 02/26/2024 10:00 AM EST Hospital Encounter Non-Invasive [place] [phone] Arrived documented as of this encounter Procedures Procedure Name Priority Date/Time Associated Diagnosis Comments CARDIAC DEVICE CHECK - REMOTE SCHEDULED Routine 09/27/2016 3:37 AM EDT documented in this encounter Results * Cardiac device check - Remote Scheduled (09/27/2016 3:37 AM EDT) Pathologist [facility] Implantable Pulse Generator Type Cardiac Resynchronization Therapy - Defibrillator [facility] Implantable Pulse Generator Model 3365-40 [facility] Implantable Pulse Generator Serial Number [id number] [facility] Implantable Pulse Generator Road [facility] Implantable Pulse Generator Implant Date [facility] Implantable Pulse Generator Implanter N/A [facility] Implantable Pulse Generator Implanter Contact Information N/A [facility] Implantable Pulse Generator Implanting Facility N/A [facility] Implantable Lead Special Function Sense and Pace in RA [facility] Implantable Lead Model 5568 [facility] Implantable Lead Serial Number [id number] [facility] Implantable Lead Road Commissioner Medtronic ID[facility] Implantable Lead Implant Date [facility]CO Implantable Lead Polarity Type Bipolar Lead IDCO Implantable Lead Location Right Atrium [facility] Implantable Lead Connection Status Connected [facility] Implantable Lead Special Function Pace in LV [facility] Implantable Lead Model 1458Q Quartet(R) [facility] Implantable Lead Serial Number [id number] [facility] Implantable Lead Road [facility] Implantable Lead Implant Date IDCO Implantable Lead Polarity Type Quadripolar Lead IDCO Implantable Lead Location Left Ventricle [facility] Implantable Lead Connection Status Connected [facility] Implantable Lead Special Function Defibrillation in RV [facility] Implantable Lead Model 7122Q Durata(R) [facility] Implantable Lead Serial Number [id number] [facility] Implantable Lead Road Commissioner [facility] Implantable Lead Implant Date IDCO Implantable Lead Polarity Type Bipolar Lead IDCO Implantable Lead Location Right Ventricle IDCO Implantable Lead Connection Status Connected IDCO Date Time Interrogation Session [id number] IDCO Type Interrogation Session Remote Scheduled IDCO Re-programmed During Session NO IDCO Date Time Previous Interrogation Session [id number] IDCO Clinician Name N/A IDCO Clinician Contact Information N/A IDCO Clinic Name N/A IDCO Battery Date Time of Measurements [id number] IDCO Battery Status Middle of Service IDCO Battery Voltage 3.13 V IDCO Battery Remaining Longevity 54 mo IDCO Battery Remaining Percentage 91.0 % IDCO Battery PIPE TESTER Trigger When current voltage < 2.59 volts IDCO Capacitor Charge Type Reformation IDCO Capacitor Last Charge Date Time [id number] IDCO Capacitor Charge Time 8.4 s IDCO Capacitor Charge Energy 40 J IDCO Lead Channel Measurements Date and Time Start [id number] IDCO Lead Channel Measurements Date and Time End [id number] [facility]CO Lead Channel Sensing Intrinsic Amplitude 2.4 mV IDCO Lead Channel Sensing Polarity Bipolar [facility]CO Lead Channel Pacing Threshold Amplitude 2.0 V IDCO Lead Channel Pacing Threshold Pulse Width 1.0 ms IDCO Lead Channel Pacing Threshold Polarity Bipolar IDCO Lead Channel Pacing Threshold Measurement Method Stem Assembler Manual IDCO Lead Channel Impedance Value 360 Ohm IDCO Lead Channel Impedance Polarity Bipolar IDCO Lead Channel Status Null IDCO Lead Channel Measurements Date and Time Start [id number] IDCO Lead Channel Sensing Intrinsic Amplitude 12.0 [...] Lead Channel Measurements Date and Time End [id number] [facility] Lead Channel Measurements Date and Time Start [id number] IDCO Lead Channel Measurements Date and Time End [id number] [facility] Lead Channel Pacing Threshold Amplitude 1.25 [...] Lead High Voltage Channel Status Null IDCO DATER ASSEMBLER LV-RV Delay 30 ms IDCO Ventricular chambers paced during DATER ASSEMBLER pacing. BiV IDCO Magnet Response Normal IDCO [...] V IDCO Lead Channel Setting Pacing Amplitude 2.25 V IDCO Lead Channel Setting Pacing Pulse [...] IDCO MDC_IDC_SET_LEAD HVCHNL_SHOCK_VEC TOR_ANODE_ELECTR ODE_1 Coil IDCO MDC_IDC_SET_LEAD HVCHNL_SHOCK_VEC TOR_CATHODE_LOCA TION_1 Other IDCO MDC_IDC_SET_LEAD HVCHNL_SHOCK_VEC TOR_CATHODE_ELEC TRODE_1 Can IDCO Grabiel Setting [...] {shocks } IDCO Statistic Date Time Start [id number] IDCO Statistic Date Time End [id number] IDCO Statistic Heart Rate Date Time End IDCO Statistic Heart Rate Date Time Start IDCO Statistic Atrial Heart Rate Min 40 {beats} /min IDCO Statistic Atrial Heart Rate Mean 74 {beats} /min IDCO Statistic Atrial Heart Rate Max 330 {beats} /min IDCO Statistic Ventricular Heart Rate Min 50 {beats} /min IDCO Statistic Ventricular Heart Rate Mean 69 {beats} /min IDCO Statistic Ventricular Heart Rate Max 240 {beats} /min IDCO Grabiel Statistic Date Time End [id number] IDCO Grabiel Statistic Date Time Start IDCO Grabiel Statistic RA Percent Paced 38.0 % IDCO Grabiel Statistic AP BARN MANAGER Percent 39.0 % IDCO Grabiel Statistic BARN MANAGER Percent 60.0 % IDCO Grabiel Statistic AP VS Percent 1.0 % IDCO Grabiel Statistic VS Percent 1.0 % IDCO Atrial Tachy Statistic Date Time Start IDCO Atrial Tachy Statistic Date Time End IDCO Atrial Tachy Statistic Maximum Mode Switch Duration 62 s IDCO Atrial Tachy Statistic Percent Time In Mode Switch 1 % IDCO Atrial Tachy Statistic Number Of Mode Switches 4,329 {switch es} IDCO Atrial Tachy Statistic Number Of Mode Switches Per Day 23 {switch es} IDCO Atrial Tachy Statistic AT/AF [place] Percent 0 % IDCO DATER ASSEMBLER Statistic Date Time Start IDCO DATER ASSEMBLER Statistic Date Time End IDCO DATER ASSEMBLER Statistic DATER ASSEMBLER Percent Paced 99.0 % IDCO Therapy Statistic Recent Date Time End [id number] IDCO Therapy Statistic Recent Date Time Start IDCO Therapy Statistic Recent Shocks Delivered 0 {shocks } IDCO Therapy Statistic Recent Shocks Aborted 0 {shocks } IDCO Therapy Statistic Recent ATP Delivered 0 {seq} IDCO Episode Statistic Recent Date Time Start IDCO Episode Statistic Recent Date Time End [id number] IDCO Episode Identifier [id number] IDCO Episode Date Time [id number] IDCO Episode Detection And Therapy Details AMS IDCO Episode Duration 12 s IDCO Episode Vendor Type Category AMS IDCO Episode Type Category Other IDCO Episode Identifier [id number] IDCO Episode Date Time [id number] IDCO Episode Detection And Therapy Details AMS IDCO Episode Vendor Type Category AMS IDCO Episode Type Category Other IDCO Episode Identifier [id number] IDCO Episode Date Time [id number] IDCO Episode Detection And Therapy Details AMS IDCO Episode Vendor Type Category AMS IDCO Episode Type Category Other IDCO Episode Identifier [id number] IDCO Episode Date Time [id number] IDCO Episode Detection And Therapy Details AMS IDCO Episode Vendor Type Category AMS IDCO Episode Type Category Other IDCO Episode Identifier [id number] IDCO Episode Date Time [id number] IDCO Episode Detection And Therapy Details AMS IDCO Episode Vendor Type Category AMS IDCO Episode Type Category Other IDCO Episode Identifier [id number] IDCO Episode Date Time [id number] IDCO Episode Detection And Therapy Details AMS IDCO Episode Vendor Type Category AMS IDCO Episode Type Category Other IDCO Episode Identifier [id number] IDCO Episode Date Time [id number] IDCO Episode Detection And Therapy Details AMS IDCO Episode Vendor Type Category AMS IDCO Episode Type Category Other IDCO Episode Identifier [id number] IDCO Episode Date Time [id number] IDCO Episode Detection And Therapy Details AMS IDCO Episode Vendor Type Category AMS IDCO Episode Type Category Other IDCO Episode Identifier [id number] IDCO Episode Date Time [id number] IDCO Episode Detection And Therapy Details AMS IDCO Episode Vendor Type Category AMS IDCO Episode Type Category Other IDCO Episode Identifier [id number] IDCO Episode Date Time [id number] IDCO Episode Detection And Therapy Details AMS IDCO Episode Vendor Type Category AMS IDCO Episode Type Category Other IDCO Episode Identifier [id number] IDCO Episode Date Time [id number] IDCO Episode Detection And Therapy Details AMS IDCO Episode Vendor Type Category AMS IDCO Episode Type Category Other IDCO Episode Identifier [id number] IDCO Episode Date Time [id number] IDCO Episode Detection And Therapy Details AMS IDCO Episode Vendor Type Category AMS IDCO Episode Type Category Other IDCO Episode Identifier [id number] IDCO Episode Date Time [id number] IDCO Episode Detection And Therapy Details AMS IDCO Episode Vendor Type Category AMS IDCO Episode Type Category Other IDCO Episode Identifier [id number] IDCO Episode Date Time [id number] IDCO Episode Detection And Therapy Details AMS IDCO Episode Vendor Type Category AMS IDCO Episode Type Category Other IDCO Episode Identifier [id number] IDCO Episode Date Time [id number] IDCO Episode Detection And Therapy Details AMS IDCO Episode Vendor Type Category AMS IDCO Episode Type Category Other IDCO Episode Identifier [id number] IDCO Episode Date Time IDCO Episode Detection And Therapy Details AMS IDCO Episode Vendor Type Category AMS IDCO Episode Type Category Other IDCO Episode Identifier [id number] IDCO Episode Date Time IDCO Episode Detection And Therapy Details AMS IDCO Episode Vendor Type Category AMS IDCO Episode Type Category Other IDCO Episode Identifier [id number] IDCO Episode Date Time IDCO Episode Detection And Therapy Details AMS IDCO Episode Vendor Type Category AMS IDCO Episode Type Category Other IDCO Episode Identifier [id number] IDCO Episode Date Time IDCO Episode Detection And Therapy Details AMS IDCO Episode Vendor Type Category AMS IDCO Episode Type Category Other IDCO Episode Identifier [id number] IDCO Episode Date Time [id number] IDCO Episode Detection And Therapy Details AMS IDCO Episode Vendor Type Category AMS IDCO Episode Type Category Other IDCO Episode Identifier [id number] IDCO Episode Date Time [id number] IDCO Episode Detection And Therapy Details AMS IDCO Episode Vendor Type Category AMS IDCO Episode Type Category Other IDCO Episode Identifier [id number] IDCO Episode Date Time IDCO Episode Detection And Therapy Details AMS IDCO Episode Vendor Type Category AMS IDCO Episode Type Category Other IDCO Episode Identifier [id number] IDCO Episode Date Time IDCO Episode Detection And Therapy Details AMS IDCO Episode Duration 10 s IDCO Episode Vendor Type Category AMS IDCO Episode Type Category Other IDCO Episode Identifier [id number] IDCO Episode Date Time [id number] IDCO Episode Detection And Therapy Details AMS IDCO Episode Duration 8 s IDCO Episode Vendor Type Category AMS IDCO Episode Type Category Other IDCO Episode Identifier [id number] IDCO Episode Date Time IDCO Episode Detection And Therapy Details AMS IDCO Episode Duration 8 s IDCO Episode Vendor Type Category AMS IDCO Episode Type Category Other IDCO Episode Identifier [id number] IDCO Episode Date Time IDCO Episode Detection And Therapy Details AMS IDCO Episode Duration 8 s IDCO Episode Vendor Type Category AMS IDCO Episode Type Category Other IDCO Episode Identifier [id number] IDCO Episode Date Time [id number] IDCO Episode Detection And Therapy Details AMS IDCO Episode Duration 6 s IDCO Episode Vendor Type Category AMS IDCO Episode Type Category Other IDCO Episode Identifier [id number] IDCO Episode Date Time [id number] IDCO Episode Detection And Therapy Details AMS IDCO Episode Duration 6 s IDCO Episode Vendor Type Category AMS IDCO Episode Type Category Other IDCO Episode Identifier [id number] IDCO Episode Date Time IDCO Episode Detection And Therapy Details AMS IDCO Episode Duration 6 s IDCO Episode Vendor Type Category AMS IDCO Episode Type Category Other IDCO Episode Identifier [id number] IDCO Episode Date Time IDCO Episode Detection And Therapy Details AMS IDCO Episode Duration 12 s IDCO Episode Vendor Type Category AMS IDCO Episode Type Category Other IDCO Episode Identifier [id number] IDCO Episode Date Time IDCO Episode Detection And Therapy Details AMS IDCO Episode Duration 6 s IDCO Episode Vendor Type Category AMS IDCO Episode Type Category Other IDCO Episode Identifier [id number] IDCO Episode Date Time IDCO Episode Detection And Therapy Details AMS IDCO Episode Duration 8 s IDCO Episode Vendor Type Category AMS IDCO Episode Type Category Other IDCO Episode Identifier [id number] IDCO Episode Date Time [id number] IDCO Episode Detection And Therapy Details AMS IDCO Episode Duration 8 s IDCO Episode Vendor Type Category AMS IDCO Episode Type Category Other IDCO Episode Identifier [id number] IDCO Episode Date Time [id number] IDCO Episode Detection And Therapy Details AMS IDCO Episode Duration 6 s IDCO Episode Vendor Type Category AMS IDCO Episode Type Category Other IDCO Episode Identifier [id number] IDCO Episode Date Time IDCO Episode Detection And Therapy Details AMS IDCO Episode Duration 6 s IDCO Episode Vendor Type Category AMS IDCO Episode Type Category Other IDCO Episode Identifier [id number] IDCO Episode Date Time IDCO Episode Detection And Therapy Details AMS IDCO Episode Duration 6 s IDCO Episode Vendor Type Category AMS IDCO Episode Type Category Other IDCO Episode Identifier [id number] IDCO Episode Date Time [id number] IDCO Episode Detection And Therapy Details AMS IDCO Episode Vendor Type Category AMS IDCO Episode Type Category Other IDCO Episode Identifier [id number] IDCO Episode Date Time [id number] IDCO Episode Detection And Therapy Details AMS IDCO Episode Vendor Type Category AMS IDCO Episode Type Category Other IDCO Episode Identifier [id number] IDCO Episode Date Time [id number] IDCO Episode Detection And Therapy Details AMS IDCO Episode Vendor Type Category AMS IDCO Episode Type Category Other IDCO Episode Identifier [id number] IDCO Episode Date Time [id number] IDCO Episode Detection And Therapy Details AMS IDCO Episode Vendor Type Category AMS IDCO Episode Type Category Other IDCO Episode Identifier [id number] IDCO Episode Date Time [id number] IDCO Episode Detection And Therapy Details AMS IDCO Episode Vendor Type Category AMS IDCO Episode Type Category Other IDCO Episode Identifier [id number] IDCO Episode Date Time [id number] IDCO Episode Detection And Therapy Details AMS IDCO Episode Vendor Type Category AMS IDCO Episode Type Category Other IDCO Episode Identifier [id number] IDCO Episode Date Time [id number] IDCO Episode Detection And Therapy Details AMS IDCO Episode Vendor Type Category AMS IDCO Episode Type Category Other IDCO Episode Identifier [id number] IDCO Episode Date Time [id number] IDCO Episode Detection And Therapy Details AMS IDCO Episode Vendor Type Category AMS IDCO Episode Type Category Other IDCO Episode Identifier [id number] IDCO Episode Date Time [id number] IDCO Episode Detection And Therapy Details AMS IDCO Episode Vendor Type Category AMS IDCO Episode Type Category Other IDCO Episode Identifier [id number] IDCO Episode Date Time [id number] IDCO Episode Detection And Therapy Details AMS IDCO Episode Vendor Type Category AMS IDCO Episode Type Category Other IDCO Episode Identifier [id number] IDCO Episode Date Time [id number] IDCO Episode Detection And Therapy Details AMS IDCO Episode Vendor Type Category AMS IDCO Episode Type Category Other IDCO Episode Identifier [id number] IDCO Episode Date Time [id number] IDCO Episode Detection And Therapy Details AMS IDCO Episode Vendor Type Category AMS IDCO Episode Type Category Other IDCO Episode Identifier [id number] IDCO Episode Date Time [id number] IDCO Episode Detection And Therapy Details AMS IDCO Episode Vendor Type Category AMS IDCO Episode Type Category Other IDCO Episode Identifier [id number] IDCO Episode Date Time [id number] IDCO Episode Detection And Therapy Details AMS IDCO Episode Vendor Type Category AMS IDCO Episode Type Category Other IDCO Episode Identifier [id number] IDCO Episode Date Time [id number] IDCO Episode Detection And Therapy Details AMS IDCO Episode Vendor Type Category AMS IDCO Episode Type Category Other IDCO Episode Identifier [id number] IDCO Episode Date Time [id number] IDCO Episode Detection And Therapy Details AMS IDCO Episode Vendor Type Category AMS IDCO Episode Type Category Other IDCO Episode Identifier [id number] IDCO Episode Date Time [id number] IDCO Episode Detection And Therapy Details AMS IDCO Episode Vendor Type Category AMS IDCO Episode Type Category Other IDCO Episode Identifier [id number] IDCO Episode Date Time [id number] IDCO Episode Detection And Therapy Details AMS IDCO Episode Vendor Type Category AMS IDCO Episode Type Category Other IDCO Episode Identifier [id number] IDCO Episode Date Time [id number] IDCO Episode Detection And Therapy Details AMS IDCO Episode Vendor Type Category AMS IDCO Episode Type Category Other IDCO Episode Identifier [id number] IDCO Episode Date Time [id number] IDCO Episode Detection And Therapy Details AMS IDCO Episode Vendor Type Category AMS IDCO Episode Type Category Other IDCO Episode Identifier [id number] IDCO Episode Date Time [id number] IDCO Episode Detection And Therapy Details AMS IDCO Episode Vendor Type Category AMS IDCO Episode Type Category Other IDCO Episode Identifier [id number] IDCO Episode Date Time [id number] IDCO Episode Detection And Therapy Details AMS IDCO Episode Vendor Type Category AMS IDCO Episode Type Category Other IDCO Episode Identifier [id number] IDCO Episode Date Time [id number] IDCO Episode Detection And Therapy Details AMS IDCO Episode Vendor Type Category AMS IDCO Episode Type Category Other IDCO Episode Identifier [id number] IDCO Episode Date Time [id number] IDCO Episode Detection And Therapy Details AMS IDCO Episode Vendor Type Category AMS IDCO Episode Type Category Other IDCO Anatomical Region Laterality Modality Other 09/27/2016 3:37 AM EDT Physician Cardiology IMPLANTABLE CARD IAC DEVICE documented in this encounter Visit Diagnoses Not on filedocumented in this encounter Care Teams Carpenter/Labor Relationship Specialty Start Date End Date Carlos Valdez MD [address] [place] [address] PCP - General 03/25/11 08/07/22 documented as of this encounter
--- OUTSIDE RECORDS SUMMARY | 2023-12-11 18:46 | XMS_ITS | Encounter Summary ---
[place] [address] Care Team Providers Care Lease Attendant Name Role Phone Carlos Valdez MD Primary Care Provider [phone] Encounter Details Date Type Department Care Team (Latest Contact Info) Description 04/08/2016 1:00 PM EST Office Visit Cardiology at [address] [id number] Izzy Holt RN Non-ischemic cardiomyopathy Social History [...] Sign Reading Time Taken Comments Blood Pressure 144/92 04/08/2016 12:52 PM EST Pulse 66 04/08/2016 12:52 PM EST Temperature - - Respiratory Rate - - Oxygen Saturation 96% 04/08/2016 12:52 PM EST Inhaled Oxygen Concentration - - Weight 108.4 kg (239 lb) 04/08/2016 12:52 PM EST Height 198.1 cm (6' 6) 04/08/2016 12:52 PM EST Body Mass Index 27.62 04/08/2016 12:52 PM EST documented in this encounter Progress Notes * Izyz Holt RN - 04/08/2016 1:00 PM EST Images from the original note were not included. Clinical Electrophysiology Device Service Note Pacemaker Clinic Follow-Up Jimmie Mccauley is a 70 y.o. male who presents today in the device clinic for MELTER SUPERVISOR- D programming evaluation and wound check. He had an elective generator replacement done secondary to a recall 03/25/2016. He originally had a pacemaker implanted 06/14/2012 for CHB. This was done at [facility] in [place], [place]. He underwent upgrade to MELTER SUPERVISOR-D on 02/18/2013 for CHF, CM, ventricular dyssynchrony. House Supervisor: Brady Ugarte MD PCP: Carlos Valdez MD Final Parameters: New Ventricular electrode: [employer] Model# 7122Q-58 cm Serial #[id number] Implanted 02/18/2013 Bipolar, steroid-tipped, active-fixation DF-4 lead Access: Axillary vein Location: Right ventricular apical septum R wave, PSA: 7.8 (paced) mV Pacing threshold, PSA: 0.7 V at 0.5 ms Pacing threshold, ICD: 0.75 V at 0.4 ms Impedance, PSA: 925 ohms Impedance, ICD: 940 ohms RV coil Impedance 68 ohms Pace the diaphragm at 10 V: No (old) Atrial electrode: Rhythmia Medicaltronic, Model # 5568-52 cm Serial # [id number] Implanted 06/14/2012 Bipolar, steroid-tipped, active-fixation IS-1 lead Access: Not known Location Right atrium anterolateral P wave, PSA: 1.4 mV P wave, ICD: 1.2 mV Pacing threshold, PSA: 1.25 V at 1.0 ms Pacing threshold, ICD: 1.25 V at 1.0 ms Impedance, PSA: 306 ohms at 5 V Coronary sinus electrode: [employer] 1458Q/86 Serial number [id number] Implanted 02/18/2013 Quadripolar passive active fixation lead Access: Subclavian vein Location: Coronary sinus, posterolateral vein R wave, PSA: 8.3 (paced) mV Pacing threshold, PSA: 0.8 V at 0.5 ms Pacing threshold, ICD: 0.75 V at 0.4 ms Impedance,PSA: 641 ohms Impedance, device: 760 ohms Pace the diaphragm/chest wall at 10 V: No New Pulse Generator [employer] [id number] Serial number [id number] Implanted 03/25/2016 ?? MELTER SUPERVISOR ICD Location: Subcutaneous Old ventricular lead : Medtronic 5075 Serial number [id number] (capped Old pulse generator: Medtronic ADDR01 Serial number [id number] (removed 02/18/2013) Detection andtermination of ventricular tachyarrhythmias was performed with the [...] rate histograms: Good distribution Atrial lead impedance: 380 ohms RV lead impedance: 430 ohms LV lead impedance: 890 ohms M3-M2 RV shock impedance 68 ohms RV to Can Lead impedance trends stable P wave: 1.9 mV R wave: None at VVI 35 Atrial capture threshold: 2.5 V @ 1.0 ms. Chronically elevated in former pacemaker as well. A Cap Confirm was NOT recommended RV capture threshold: 0.75 V at 0.5 ms. RV Cap Confirm recommended LV capture threshold: 1.75 V at 0.5 ms M3-M2. LV Cap Confirm recommended. 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 I have overread and reviewed the pacemaker/defibrillator (ICD) interrogation data, which also is partially summarized in Izzy Holt's note. Comments (interval data since last reset March 25, 2016): Cell Voltage and Charge Time: Acceptable Estimated longevity ~3.8-5.4 years Programmed iterative changes were made to the voltage and/or pulse width of the output to the pacing leads (+/- appropriate temporary pacing mode and rate) in order to assess the capture threshold... Atrial Lead: Acceptable atrial lead capture threshold, sensing, and impedance Atrial pacing 32% Atrial high rate episodes detected: None Left Ventricular Lead: Acceptable ventricular lead capture threshold (1.75 V @ 0.5 ms M3-M2 configuration) and impedance Right Ventricular Lead: Acceptable ventricular lead capture threshold and impedances; no sensed electrogram. Biventricular pacing >99% Ventricular high rate episodes detected: None Physiologic Monitoring: CoreVue trends initiating... Conclusion: Normal device function. Biventricular pacing >99%. No significant dysrhythmias detected. Programming: Thresholds assessed. Counters reset. __ Dheeraj Herzog MD, [facility] Cardiac Electrophysiology documented in this encounter Plan of Treatment Upcoming Encounters Date Type Department Care Team (Late st Contact Info) Description 02/26/2024 10:00 AM EST Hospital Encounter Non-Invasive [place] [address] Arrived documented as of this encounter Visit Diagnoses Diagnosis Non-ischemic cardiomyopathy Other primary cardiomyopathies documented in this encounter Care Teams Lease Attendant Relationship Specialty Start Date End Date Carlos Valdez MD [address] [place] [address] PCP - General 03/25/11 08/07/22 documented as of this encounter
--- OUTSIDE RECORDS SUMMARY | 2023-12-11 18:46 | XMS_ITS | Encounter Summary ---
[place] [address] Care Team Providers Care Script Writer Name Role Phone Carlos Valdez MD Primary Care Provider [phone] Reason for Referral * MRI/CAT Scan (Routine) - Closed Specialty Diagnoses / Procedures Referred By Theodora de la torre Referred To Contact Diagnoses Other primary cardiomyopathies Heart failure, unspecified Procedures Echocardiogram Transthoracic(Leb) Brady Ugarte MD [facility] [place] [address] [facility] [place] [address] Referral ID Status Reason Start Date Expiration Date Visits Re quested Visits Authorized [id number] Closed 02/03/2015 04/03/2015 1 1 Reason for Visit * MRI/CAT Scan (Routine) - Closed Specialty Diagnoses / Procedures Referred By Theodora de la torre Referred To Contact Diagnoses Other primary cardiomyopathies Heart failure, unspecified Procedures Echocardiogram Transthoracic(Leb) Brady Ugarte MD [facility] [place] [address] [facility] [place] [address] Referral ID Status Reason Start Date Expiration Date Visits Re quested Visits Authorized [id number] Closed 02/03/2015 04/03/2015 1 1 Encounter Details Date Type Department Care Team (Latest Contact Info) Description 02/03/2015 9:41 AM EST - 02/03/2015 11:59 PM EST Hospital Encounter Non[place] [address] Other primary cardiomyopathies; Heart failure Discharge Disposition: Home Social History Tobacco Use [...] Sig Dispensed Refills Start Date End Date hokqihg-mmomithsvrxic-i affeine (EXCEDRIN MIGRAINE) 250-250-65 mg per tablet [...] by mouth nightly. 30 tablet 0 01/11/2011 COREG CR 40 mg Cap, Multiphasic Release 24 hr TAKE 1 CAPSULE DAILY 90 capsule 1 01/22/2015 08/02/2015 losartan (COZAAR) 50 mg Tablet take 1 tablet by mouth once daily 30 tablet 11 08/12/2014 02/15/2017 documented as of this encounter Plan of Treatment Upcoming Encounters Date Type Department Care Team (Late st Contact Info) Description 02/26/2024 10:00 AM EST Hospital Encounter Non[place] [address] Arrived documented as of this encounter Procedures Procedure Name Priority Date/Time Associated Diagnosis Comments ECHO COMPLETE Routine 02/03/2015 10:29 AM EST Other primary cardiomyopathies Heart failure documented in this encounter Results * ECHO COMPLETE (02/03/2015 10:29 AM EST) EF 59 HEARTLAB SYSTEM Anatomical Region Laterality Modality Other 02/03/2015 Narrative 02/03/2015 10:38 AM EST Procedure: ?Transthoracic Echocardiogram Patient: ?PORSCHE Mancilla ? (Age): 1945(69y) Med Rec#: ? [id number] ?Sex: ?M ? [place] ? [facility] [place]Ht / Wt: ??196(cm)/107(kg) Pt. Loc: ?Echo Lab ?BSA: ?2.4 Study Date: ?? 02/03/2015 ?Pt. Type: Outpatient Tape: ? Referring: Brady Ugarte ([id number]) Reading: Charbel Naqvi ([id number]) Energy Conservation Representative: Maya Arnold Diagnosis: *ICD-10-PCS Other cardiomyopathies (I42.8) CPT Codes: *Echo Full (63708) *Spectral Doppler (33314) *Color Doppler (89421) BP: ? 141/79 SUMMARY: 1. The left ventricular chamber size is normal. ??Mild concentric left ventricular hypertrophy is observed. ??The quantitative left ventricular ejection fraction by biplane Ramirez's method is 59%. ??There are no left ventricular segmental wall motion abnormalities. 2. The right ventricle is normal in size. ??Right ventricular global systolic function is normal. ??The estimated pulmonary artery systolic pressure is 29 mmHg. 3. There is no hemodynamically significant valve disease. 4. See remainder of report for additional findings. FINDINGS: ? Study Quality ?Technically limited Left Ventricle ?The left ventricular chamber size is normal. ?Mild concentric left ventricular hypertrophy is observed. ?There is no evidence of LVOT obstruction. ?The quantitative left ventricular ejection fraction by biplane Ramirez's method is 59%. ?There are no left ventricular segmental wall motion abnormalities. ?Doppler assessment is consistent with normal left sided filling pressure. ?A false chord is observed in the left ventricle. Left Atrium ?The left atrium is normal in size.(25 ml/m2) Right Ventricle ?The right ventricle is normal in size. ?A pacemaker wire is visualized in the right ventricle. ?Right ventricular global systolic function is normal. ?The estimated pulmonary artery systolic pressure is 29 mmHg. ?The estimated right atrial pressure is 3 mmHg. Right Atrium ?The right atrium is mildly dilated. ?A pacemaker wire is visualized in the right atrium. Aortic Valve ?The aortic valve is trileaflet. The leaflets are thin with normal excursion. There is no aortic stenosis or regurgitation present. Mitral Valve ?The mitral valve appears normal in structure and function. ?There is no evidence of mitral stenosis. ?There is mild (1+/4+) mitral regurgitation present. Tricuspid Valve ?The tricuspid valve appears normal in structure and function. ?There is mild (1+/4+) tricuspid regurgitation present. Pulmonic Valve ?The pulmonic valve is not well visualized. Pericardium ?The pericardium appears normal and there is no evidence of a pericardial effusion. Aorta ?The aortic root is normal in size. ?There is mild dilatation of the ascending aorta. ?The aortic arch was not well visualized. Pulmonary Artery ?The main pulmonary artery appears normal. Venous ?The inferior vena cava appears normal in size. ?There is a greater than 50% respiratory change in the inferior vena cava dimension. Misc ?There is no hemodynamically significant valve disease. ?See remainder of report for additional findings. ?Two-dimensional echo, spectral Doppler and color Doppler performed. Chambers 2D ?Value ?Units (Range) ? IVSd (2D) ? 1.3 ?cm ? LVPWd (2D) ?1.4 ?cm ? IVS:LVPW ratio (2D) 0.9 ?ratio ? LVIDd (2D) ?5.1 ?cm ? LVIDs (2D) ?3.6 ?cm ? LVIDd (2D) index ?2.1 ?cm/m2 ? LVIDs (2D) index ?1.5 ?cm/m2 ? LV FS (2D) ?30 ? % ? EF Teichholz (2D) ?? 56 ? % ? Ao root diameter (2D3.7 ?cm (2.1 - 3.6) ? Ascending Ao ?3.9 ?cm (2 - 3.5) ? Volumes/Mass ?Value ?Units (Range) ? LA Area 4 CH ?13.8 ? cm2 (<21) ? LA ESV BP (A/L) inde24.9 ? ml/m2 ? RA AREA 4CH ? 22.3 ? cm2 ? LA ESV SP 4CH (MOD) 33 ? ml ? LA ESV SP 2CH (MOD) 79.9 ? ml ? LV ESV SP 4CH (MOD) 53.9 ? ml ? LV ESV SP 2CH (MOD) 49.9 ? ml ? LV EDV BP ? 132.8 ?ml ? LV ESV BP ? 54.6 ? ml ? BP EF (MOD) ? 59 ? % ? LV mass (2D) ?297.5 ?g ? LV mass (2D) index ??124 ?g/m2 ? Diastolic/Systolic Function ?Value ?Units (Range) ? MV E-wave Vmax ?0.6 ?m/sec ? MV deceleration aixi202.1 ?msec ? MV A-wave Vmax ?0.6 ?m/sec ? MV E:A ratio ?1 ?ratio ? LV septal e' Vmax ?? 0.1 ?m/sec ? LV E:e' septal ratio8.1 ?ratio ? Tricuspid Valve ?Value ?Units (Range) ? TR Vmax ? 2.5 ?m/sec ? TR peak gradient ?25.6 ? mmHg ? RAP ? 3 ?mmHg ? RVSP ?29 ? mmHg ? Measurement Trending Name ? 02/03/2015 ? LV EDV BP ?132.78 LVIDd (2D) ? 5.1 LV ESV BP ?54.56 LVIDs (2D) ? 3.59 Wall Motion: Segment Name ?Rest ? Base-Anteroseptal ?? Normal ? Base-Anterior ? Normal ? Base-Anterolateral ??Normal ? Base-Posterolateral Normal ? Base-Inferior ? Normal ? Base-Inferoseptal ?? Normal ? Mid-Anteroseptal ?Normal ? Mid-Anterior ?Normal ? Mid-Anterolateral ?? Normal ? Mid-Posterolateral ??Normal ? Mid-Inferior ?Normal ? Mid-Inferoseptal ?Normal ? [place]-Septal ? Normal ? [place]-Anterior ? Normal ? [place]-Lateral ?Normal ? [place]-Inferior ? Normal ? [place]-Tip ?Normal ? This report has been electronically signed by: Charbel Naqvi MD ? 02/03/2015 10:37:35 Images reviewed and interpretation verified [facility] Cardiac Ultrasound Laboratory Procedure Note Charbel Naqvi MD - 02/03/2015 Procedure: Transthoracic Echocardiogram Patient: PORSCHE ROBERTS(Age): 1945(69y) Med Rec#: [id number] Sex: M [place]: [facility] [place] Ht / Wt: 196(cm)/107(kg) Pt. Loc: Echo Lab BSA: 2.4 Study Date: 02/03/2015 Pt. Type: Outpatient Tape: Referring: Brady Ugarte ([id number]) Reading: Charbel Naqvi ([id number]) Energy Conservation Representative: Maya Arnold Diagnosis: *ICD-10-PCS Other cardiomyopathies (I42.8) CPT Codes: *Echo Full (91782) *Spectral Doppler (21598) *Color Doppler (13720) BP: 141/79 SUMMARY: 1. The left ventricular [...] See remainder of report for additional findings. FINDINGS: Study Quality Technically limited Left Ventricle The left ventricular chamber size is normal. Mild concentric left ventricular hypertrophy is observed. There is no evidence of LVOT obstruction. The quantitative left ventricular ejection fraction by biplane Ramirez's method is 59%. There are no left ventricular segmental wall motion abnormalities. Doppler assessment is consistent with normal left sided filling pressure. A false chord is observed in the left ventricle. Left Atrium The left atrium is normal in size.(25 ml/m2) Right Ventricle The right ventricle is normal in size. A pacemaker wire is visualized in the right ventricle. Right ventricular global systolic function is normal. The estimated pulmonary artery systolic pressure is 29 mmHg. The estimated right atrial pressure is 3 mmHg. Right Atrium The right atrium is mildly dilated. A pacemaker wire is visualized in the right atrium. Aortic Valve The aortic valve is trileaflet. The leaflets are thin with normal excursion. There is no aortic stenosis or regurgitation present. Mitral Valve The mitral valve appears normal in structure and function. There is no evidence of mitral stenosis. There is mild (1+/4+) mitral regurgitation present. Tricuspid Valve The tricuspid valve appears normal in structure and function. There is mild (1+/4+) tricuspid regurgitation present. Pulmonic Valve The pulmonic valve is not well visualized. Pericardium The pericardium appears normal and there is no evidence of a pericardial effusion. Aorta The aortic root is normal in size. There is mild dilatation of the ascending aorta. The aortic arch was not well visualized. Pulmonary Artery The main pulmonary artery appears normal. Venous The inferior vena cava appears normal in size. There is a greater than 50% respiratory change in the inferior vena cava dimension. Misc There is no hemodynamically significant valve disease. See remainder of report for additional findings. Two-dimensional echo, spectral Doppler and color Doppler performed. Chambers 2D Value Units (Range) IVSd (2D) 1.3 cm LVPWd (2D) 1.4 cm IVS:LVPW ratio (2D) 0.9 ratio LVIDd (2D) 5.1 cm LVIDs (2D) 3.6 cm LVIDd (2D) index 2.1 cm/m2 LVIDs (2D) index 1.5 cm/m2 LV FS (2D) 30 % EF Teichholz (2D) 56 % Ao root diameter (2D3.7 cm (2.1 - 3.6) Ascending Ao 3.9 cm (2 - 3.5) Volumes/Mass Value Units (Range) LA Area 4 CH 13.8 cm2 (<21) LA ESV BP (A/L) inde24.9 ml/m2 RA AREA 4CH 22.3 cm2 LA ESV SP 4CH (MOD) 33 ml LA ESV SP 2CH (MOD) 79.9 ml LV ESV SP 4CH (MOD) 53.9 ml LV ESV SP 2CH (MOD) 49.9 ml LV EDV BP 132.8 ml LV ESV BP 54.6 ml BP EF (MOD) 59 % LV mass (2D) 297.5 g LV mass (2D) index 124 g/m2 Diastolic/Systolic Function Value Units (Range) MV E-wave Vmax 0.6 m/sec MV deceleration gebo809.1 msec MV A-wave Vmax 0.6 m/sec MV E:A ratio 1 ratio LV septal e' Vmax 0.1 m/sec LV E:e' septal ratio8.1 ratio Tricuspid Valve Value Units (Range) TR Vmax 2.5 m/sec TR peak gradient 25.6 mmHg RAP 3 mmHg RVSP 29 mmHg Measurement Trending Name 02/03/2015 LV EDV BP 132.78 LVIDd (2D) 5.1 LV ESV BP 54.56 LVIDs (2D) 3.59 Wall Motion: Segment Name Rest Base-Anteroseptal Normal Base-Anterior Normal Base-Anterolateral Normal Base-Posterolateral Normal Base-Inferior Normal Base-Inferoseptal Normal Mid-Anteroseptal Normal Mid-Anterior Normal Mid-Anterolateral Normal Mid-Posterolateral Normal Mid-Inferior Normal Mid-Inferoseptal Normal [place]-Septal Normal [place]-Anterior Normal [place]-Lateral Normal [place]-Inferior Normal [place]-Tip Normal This report has been electronically signed by: Charbel Naqvi MD 02/03/2015 10:37:35 Images reviewed and interpretation verified [facility] Cardiac Ultrasound Laboratory Brady Ugarte MD ECHO ORDERABLES documented in this encounter Visit Diagnoses Diagnosis Other primary cardiomyopathies Heart failure Heart failure, unspecified documented in this encounter Care Teams Script Writer Relationship Specialty Start Date End Date Carlos Valdez MD [address] [place] [address] PCP - General 03/25/11 08/07/22 documented as of this encounter
--- OUTSIDE RECORDS SUMMARY | 2023-12-11 18:46 | XMS_ITS | Encounter Summary ---
[place] [address] Care Team Providers Care Material Spreader Name Role Phone Carlos Valdez MD Primary Care Provider [phone] Reason for Referral * Diagnostic Test (Routine) - Closed Specialty Diagnoses / Procedures Referred By Theodora de la torre Referred To Contact Cardiology Diagnoses Cardiomyopathy, unspecified type Procedures Echocardiogram Transthoracic(Leb) Brady Ugarte MD [facility] [place] [address] [facility] [place] [address] Referral ID Status Reason Start Date Expiration Date V isits Requested Visits Authorized [id number] Closed Specialty Service Requested 06/26/2016 08/24/2016 1 1 Encounter Details Date Type Department Care Team (Late st Contact Info) Description 06/02/2016 Orders Only Cardiology at [address] [address] Brady Ugarte MD [facility] [place] [address] Cardiomyopathy, unspecified type Social History Tobacco Use Types [...] AM EST Hospital Encounter Non-[place] [phone] Arrived documented as of this encounter Results * ECHO COMPLETE (07/11/2016 1:55 PM EDT) EF 65 HEARTeXpresso SYSTEM Anatomical Region Laterality Modality Other 07/11/2016 Narrative 07/11/2016 2:08 PM EDT Procedure: ?Transthoracic Echocardiogram Patient: ?PORSCHE Mancilla ? (Age): 1945(71y) Med Rec#: ? [id number] ?Sex: ?M ? [place] [facility] [place]t / Wt: ??198.1(cm)/108.4 Pt. Loc: ?Echo Lab ?BSA: ?2.43 Study Date: ?? 07/11/2016 ?Pt. Type: Outpatient Tape: ? Referring: JOCELYNN Referring: Brady Ugarte ([id number]) Reading: Carter Guzmán ([id number]) [employer] Driver: Kim Tineo Diagnosis: *ICD-10-PCS Cardiomyopathy, unspecified (I42.9) CPT Codes: *Echo Full (80753) *Spectral Doppler (36115) *Color Doppler (44990) BP: ? 174/92 SUMMARY: 1. Mild concentric [...] E-wave Vmax ?0.6 ?m/sec ? MV deceleration lnpp893.2 ?msec ? MV A-wave Vmax ?0.7 ?m/sec [...] ? Mid-Inferior ?Normal ? Mid-Inferoseptal ?Normal ? [place]-Septal ? Normal ? [place]-Anterior ? Normal ? [place]-Lateral ?Normal ? [place]-Inferior ? Normal ? [place]-Tip ?Normal ? This report has been electronically signed by: Carter Guzmán M.D. ? 07/11/2016 14:08:25 Images reviewed and interpretation verified [facility] Cardiac Ultrasound Laboratory Procedure Note Carter Guzmán MD - 07/11/2016 Procedure: Transthoracic Echocardiogram Patient: PORSCHE ROBERTS(Age): 1945(71y) Med Rec#: [id number] Sex: M [place] [facility] [place] / Wt: 198.1(cm)/108.4 Pt. Loc: Echo Lab BSA: 2.43 Study Date: 07/11/2016 Pt. Type: Outpatient Tape: Referring: JOCELYNN Referring: Brady Ugarte ([id number]) Reading: Carter Guzmán ([id number]) [employer] Driver: Kim Tineo Diagnosis: *ICD-10-PCS Cardiomyopathy, unspecified (I42.9) CPT Codes: *Echo Full (45300) *Spectral Doppler (01245) *Color Doppler (68319) BP: 174/92 SUMMARY: 1. Mild concentric left [...] MV E-wave Vmax 0.6 m/sec MV deceleration doqv506.2 msec MV A-wave Vmax 0.7 m/sec MV [...] Normal Mid-Posterolateral Normal Mid-Inferior Normal Mid-Inferoseptal Normal [place]-Septal Normal [place]-Anterior Normal [place]-Lateral Normal [place]-Inferior Normal [place]-Tip Normal This report has been electronically signed by: Carter Guzmán M.D. 07/11/2016 14:08:25 Images reviewed and interpretation verified [facility] Cardiac Ultrasound Laboratory Brady Ugarte MD ECHO ORDERABLES documented in this encounter Visit Diagnoses Diagnosis Cardiomyopathy, unspecified type Cardiomyopathy, unspecified type documented in this encounter Care Teams Material Spreader Relationship Specialty Start Date End Date Carlos Valdez MD [address] [place] [address] [address] [place] [address] PCP - General 03/25/11 08/07/22 documented as of this encounter
--- OUTSIDE RECORDS SUMMARY | 2023-12-11 18:46 | XMS_ITS | Encounter Summary ---
Author Organization [facility] [place] [address] Care Team Providers Care Hr Administrative Assistant Name Role Phone Carlos Valdez MD Primary Care Provider [phone] Reason for Visit * Reason Onset Date Comments Advice Only 07/27/2015 Encounter Details Date Type Department Care Team (Late st Contact Info) Description 07/27/2015 Telephone Cardiology at [address] [address] Brady Ugarte MD [facility] [place] [address] Advice Only Social History Tobacco Use Types Packs/Day Years [...] encounter Miscellaneous Notes * Telephone Encounter - Brady Ugarte MD - 07/27/2015 11:28 AM EDT TELEPHONE NOTE Patient: Jimmie Mccauley Date of call: 07/27/2015 Time of call: 11:28 (home) Caller: Brady Ugarte MD Cardiology Reason for call: The patient developed malaise and low-grade fever and was instructed to report to the emergency room. Dr. Martini from [facility] reports that the patient is currently afebrile, with a slight leukocytosis, with a normal chest x-ray, a paced rhythm on EKG, and appearing to be nontoxic. The symptoms described are pleuritic chest pain, somewhat positional with some diarrhea. This most likely represents a viral like illness although I did caution about the recent wave of influenza. The patient's most recent echocardiogram in January 2015 demonstrated no pericardial effusion and the patient is not immunosuppressed. A conservative medical management approach is reasonable although he has recurrent fevers or clinical deterioration, he should be reevaluated. I recommended follow-up with his PCP initially, unless there are new cardiovascular issues to address. Assessment: 1. Viral like illness Plan/Instructions: 1. As above documented in this encounter Plan of Treatment Upcoming Encounters Date Type Department Care Team (Late st Contact Info) Description 02/26/2024 10:00 AM [facility] Hospital Encounter Non-Invasive [place] [address] Arrived documented as of this encounter Visit Diagnoses Not on filedocumented in this encounter Care Teams Hr Administrative Assistant Relationship Specialty Start Date End Date Carlos Valdez MD [address] [place] [address] PCP - General 03/25/11 08/07/22 documented as of this encounter
--- OUTSIDE RECORDS SUMMARY | 2023-12-11 18:46 | XMS_ITS | Encounter Summary ---
Author Organization [facility] [place] [address] Care Team Providers Care Barrel Drum Cutter Name Role Phone Charli Jaramillo MD Primary Care Provider [phone] Reason for Visit * Reason Comments Cardiomyopathy Congestive Heart Failure Irregular Heart Beat pacemaker Encounter Details Date Type Department Care Team (Latest Contact Info) Description 02/03/2015 11:30 AM EST Office Visit Cardiology at [address] [address] Brady Ugarte MD [facility] [place] [address] Cardiomyopathy; Heart failure, unspecified heart failure chronicity, unspecified heart failure type; Pulmonary embolism; Pericarditis; Biventricular implantable cardioverter-defibrilla tor in situ; Non-ischemic cardiomyopathy Social History Tobacco Use Types [...] Time Taken Comments Blood Pressure 140/76 02/03/2015 11:00 AM EST Pulse 62 02/03/2015 11:00 AM EST Temperature - - Respiratory Rate - - Oxygen Saturation 97% 02/03/2015 11:00 AM EST on room air Inhaled Oxygen Concentration - - Weight 105.2 kg (232 lb) 02/03/2015 11:00 AM EST Height 195.6 cm (6' 5.01) 02/03/2015 11:[address] Body Mass Index 27.51 02/03/2015 11:00 AM EST documented in this encounter Patient Instructions * Patient Instructions* Brady Ugarte MD - 02/03/2015 11:52 AM EST Medication changes: None We discussed the possibility of a newly approved medication for heart failure, but will defer initiation for now We reviewed your laboratory, device and echo findings. Your pumping function is within the normal range with and ejection fraction = 39%. documented in this encounter Progress Notes * Brady Ugarte MD - 02/02/2015 6:41 PM EST Images from the original note were not included. [facility] [place] [address] [address] CARDIOMYOPATHY/HEART FAILURE SERVICE OUTPATIENT CLINIC NOTE Jatinder Mccauley 02/03/2015 Primary Care Provider: CHARLI JARAMILLO MD Referring Provider: Charli Jaramillo CHIEF COMPLAINT: Chief Complaint Patient presents with ??? Cardiomyopathy ??? Congestive Heart Failure ??? Irregular Heart Beat pacemaker HISTORY OF PRESENT ILLNESS: Jatinder Mccauley is a 69 y.o. patient seen in routine follow up in the [facility], and in the interim, From his 08/07/14 visit: The patient has [...] cardiac protective medications. He recently vacationed in [place] and had no major clinical events. He [...] Grewal: Last visit: 04/02 Feeling well post HAND SUTURE WINDER. Remains active and busy. Has occ fatigue, [...] EP and has been scheduled for elective HAND SUTURE WINDER- D upgrade with EF ~ 35 %and [...] reported to a local emergency room in [place]. He was told that he had a low heart rate in july need a pacemaker but he declined any further evaluation as he was asymptomatic. 2 weeks later, while [place], the patient felt weak, tired, with dizziness [...] available for my review. Since returning to [facility], thepatient actually feels well with no [...] this. There were no new medications or ctar-hds-obxhbyf therapy initiated during this timeframe. On discharge, [...] ??? Biventricular implantable cardioverter-defibrillator in situ Z95.810 Patient Active Problem List Diagnosis ??? Biventricular implantable cardioverter-defibrillator in situ 02/19/2013 Cardiac Resynchronization Therapy ICD Upgrade (explant of pacemaker pulse generator), peripheral Subclavian Venography, Cinefluoroscopy, pacemaker pocket revision and defibrillation safety margin testing, under General anesthesia Indication: Cardiomopathy with congestive heart failure and ventricular dyssynchrony, ventricular pacing New Ventricular electrode: [employer] Model# 7122Q-58 cm Serial #[id number] Implanted 02/18/2013 Bipolar, steroid-tipped, active-fixation DF-4 lead Access: Axillary vein Location: Right ventricular apical septum (old) Atrial electrode: [employer], Model # 5568-52 cm Serial # [id number] Implanted 06/14/2012 Bipolar, steroid-tipped, active-fixation IS-1 lead Access: Not known Location Right atrium anterolateral Coronary sinus electrode: [employer] 1458Q/86 Serial number [id number] Implanted 02/18/2013 Quadripolar passive active fixation lead Access: Subclavian vein Location: Coronary sinus, posterolateral vein Pulse generator: [employer] [id number] Serial number [id number] Implanted 02/18/2013 HAND SUTURE WINDER ICD Location: Subcutaneous Old ventricular lead : Medtronic 5075 Serial number [id number] (capped 02/18/2013) Old pulse generator: Medtronic ADDR01 Serial number [id number] (removed 02/18/2013) Detection and termination of ventricular tachyarrhythmias was performed with the ICD set to minimalsensitivity A T-Wave shock (4 S1 at 400 ms with a 310 ms delay and 1.2 Joule biphasic waveform) induced ventricular fibrillation that was successfully terminated with a 20 Joule shock (impedance 68 ohms). ??? 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 May be multifactorial, PE, and post pacer implant pericarditis Abnormal CT pulmonary angiogram Elevated hs CRP and ESR ??? Pericarditis New chest discomfort ~ 2 weeks post DDD pacer implant Elevated C reactive protein; pericardial effusion->improved with NSAID and colchicine. Should be on colchicine until Nov 18, 2012 Elevated ProBNP, some clinical response with diuretics Stress Echo, LVEF=44%, no change, no definite ischemia, poor exercise tolerance, no pericardial effusion noted on stress Trivial pleural effusion on chest x-ray Elevated DFH=725 a-->3.8 AN ESR=53 on index presentation --> 25, 13 and 4 on medical therapy with colchicine, steroids not initiated ??? Pulmonary embolism New clinical dyspnea, chest pain syndrome, diaphoresis 06/2012 Recent hospitalization for CHB, pacer and prolonged driving from [place] to [place] Ab[place] CT pulmonary angiogram 08/01/12 Lovenox bridge -->coumadin initiated 08/01/12 ??? Non-ischemic cardiomyopathy Dilated cardiomyopathy -- non-ischemic. [...] effusion Echo 02/03/15 EF =59% No effusion d. Sinus rhythm with left bundle branch block, PVCs, QRS nhzifaxx=681 msec. Symptomatic CHB 06/13/12- s/p DDDR pacemaker 100% V paced rhythm e. AHA/ACC stage C, NYHA functional class II. f. Intolerant to spironolactone. Currently on carvedilol and Cozaar with slightly elevated blood pressure relative to LV dysfunction. ??? Heart failure chronic systolic dysfunction Heart failure - well compensated Chronic Systolic dysfunction Non ischemic DCM Heart Failure Management: Yes/No No?/Discontinued/Why Beta makeda Yes Carvedilol ROSY/ARB Yes Losartan Spironolactone no Previously [id number], d/c secondary to side effects (hives), no rechallenge Amlodipine Yes Initiated 05/30 [place] AFIB? no Anticoagulated AICD/Type HAND SUTURE WINDER-D LBBB, EF dropped to 35%- 04/02/13 back up at ~ 50% post HAND SUTURE WINDER NSR with LBBB, QRS= 170 ms CHB with symptomatic bradycardia, s/p DDD-R pacer 06/13/12 - LVEF ~ 50-55%, ICD not indicated, but, will likely be V paced, and higher risk for pacemaker induced LV dysfunction - LVEF deteriorated post pacer implant, EF ~ 35% on medical therapy AHA/ACC stage C, NYHA FTCII ??? Alcohol use History of Alcohol use ??? LBBB (left bundle branch block) XBG=959 ms New Symptomatic CHB 05/30-->declined pacer at initial presentation while traveling -S/p temp pacer-->Permanent DDDR pacer -LVEF~ 50-55%, ICD not indicated, but at risk for V paced rhythm dyssynchrony ??? Complete heart block Symptomatic bradycardia with CHB and LBBB, HR in the 20-30s Initially seen at a local ER, pacemaker recommended, but declined While in ICU, [place], called [facility] in cath report, but likely symptomatic bradycardia and CHB CHB- s/p temporary pacer 06/13/2012 - cath: Angiogram, mild irregularities of LAD, LCXF dominant, 30-40% mid RCA - No LV gram done S/p DDD-R Pacemaker Medtronic Adapta Dual Chamber Model # ADDR01, Serial number [id number] -[place], [place] ??? HX SUDDEN CARDIAC ARREST Probably bradycardic induced, presenting with symptomatic CHB, and requiring defibrillation 05/2012 SOCIAL HISTORY: Reviewed and updated as appropriate in the medical record. The patient reports thathe quit smoking about 19 years ago. His smoking use included Cigarettes. He smoked 0.00 packs per day. He has never used smokeless tobacco. He reports that he drinks about 0.5 oz of alcohol per week.He reports that he does not use illicit drugs. FAMILY HISTORY: Reviewed and updated as appropriate in the medical record. No family history on file. ALLERGIES: Reviewed and updated as appropriate in the medical record. Allergies Allergen Reactions ??? Lasix [Furosemide] Rash MEDICATIONS: No outpatient prescriptions have been marked as taking for the 02/03/15 encounter (Office Visit) with Brady Ugarte MD. REVIEW OF SYSTEMS: Review of Systems Pertinent Negatives or Positives General Denies Fever, chills, night sweats. Weight now up approximately 4 pounds now stable. Sleep habits usually good. Eyes No visual loss, double vision, drainage, eye pain, dry eyes, or other sxs reported. ENT No sore throat, dry mouth, eptistaxis or other sxs reported. Cardiac Intermittent chest pain as noted above. He continues significant and sustained improvement of his chest discomfort as noted above, has occasional ro rare skipped heartbeats, but denying any stain tachyarrhythmias or prolonged palpitations, improvement of his CORNEJO, no recurrence of Orthopnea,PND, LE edema/\. Pulmonary Overall improvement of shortness of breath, denies productive or not but the cough, hemoptysis, or other sxs reported. Heme/Lymph No swollen glands, fever, bleeding, or other sxs reported. GI decrease in appetite, otherwise without abdominal pain, change in bowel habits, melena, nausea, vomiting, diarrhea or other sx reported. No [...] Signs: Wt Readings from Last 3 Encounters: 02/03/15 105.235 kg (232 lb) 02/03/15 105.235 kg (232 lb) 12/10/14 106.595 kg (235 lb) Temp Readings from Last 3 Encounters: 02/19/13 36.8 ??C (98.2 ??F) Oral 02/11/13 35.6 ??C (96 ??F) Temporal BP Readings from Last 3 Encounters: 02/03/15 140/76 02/03/15 140/76 12/10/14 130/76 Pulse Readings from Last 3 Encounters: 02/03/15 62 02/03/15 62 12/10/14 70 SpO2: [97 %] General -Alert, oriented, NAD. Affect good spirits, appropriate, answers questions appropriately. Well-developed male HEENT -unremarkable, no xanthelasma, arcus, icterus. PERRLA, moist mucous membranes. Dentition good. Neck -without lymphadenopathy, mass, thyromegaly Carotid upstrokes are brisk Chest -site well healed, minimally tender, no ecchymoses Lungs -clear without rales or [...] (non-fasting) Result Value Ref Range Glucose Lvl 74 65 - 199 mg/dL BUN 22 (H) 10 - 20 mg/dL Creatinine 0.92 0.80 - 1.50 mg/dL Sodium 145 135 - 145 mmol/L Potassium 4.3 3.5 - 5.0 mmol/L Chloride 104 98 - 107 mmol/L CO2 26 22 - 31 mmol/L Anion Gap 15 5 - 15 mmol/L Calcium 9.9 8.5 - 10.5 mg/dL Total Protein 6.7 6.1 - 8.0 gm/dL Albumin 4.3 3.2 - 5.2 gm/dL AST 16 0 - 39 unit/L ALT 20 0 - 55 unit/L Alk Phos 54 40 - 120 unit/L Total Bilirubin 1.1 0.2 - 1.3 mg/dL Bili, Direct 0.2 0.0 - 0.3 mg/dL Estimated GFR >60 >=60 pro-Brain Natriuretic Peptide Result Value Ref Range ProBNP 90 <=125 pg/mL High Sensitivity CRP Result Value Ref Range CRP High Sens 4.3 mg/L Hemogram Result Value Ref Range WBC 10.2 (H) 4.0 - 10.0 x10(3)/mcL RBC 5.47 4.63 - 6.08 x10(6)/mcL Hemoglobin 16.0 13.7 - 17.5 gm/dL Hematocrit 47.3 40.0 - 51.0 % MCV 86.5 79.0 - 92.0 fL MCH 29.3 25.6 - 32.2 pg MCHC 33.8 32.0 - 36.5 gm/dL Platelets 225 145 - 370 x10(3)/mcL RDWSD 40.3 35.0 - 46.0 fL RDWCV 12.8 10.9 - 14.4 % MPV 10.8 9.0 - 12.0 fL Differential, Automated Result Value Ref Range Neutrophils % 57.5 % Neutr Abs (ANC) 5.88 1.50 - 6.30 x10(3)/mcL Lymphocytes % 29.0 % Lymphocytes Abs 3.0 1.0 - 3.6 x10(3)/mcL Monocytes % 9.8 % Monocyte Abs 1.0 0.2 - 1.0 x10(3)/mcL Eosinophils % 3.0 % Eosinophils Abs 0.3 0.0 - 0.5 x10(3)/mcL Basophils % 0.5 % Basophils Abs 0.0 0.0 - 0.2 x10(3)/mcL Immature Gran % 0.20 % Elva Gran Abs 0.02 0.00 - 0.05 x10(3)/mcL Echocardiogram Transthoracic(Leb) Result Value Ref Range EF 59 PROBNP Date Value Ref Range Status 02/03/2015 90 <=125 pg/mL Final 08/07/2014 191* <=125 pg/mL Final 02/03/2014 150* <=125 pg/mL Final Results for SADIEKIMBERLYAMBROCIOMelo Mancilla ( ) as of 08/07/2014 19:03 Ref. Range 09/13/2012 08:33 10/16/2012 09:59 12/26/2012 15:41 04/02/2013 14:42 08/07/2014 13:50 Sed Rate Latest Range: 0-15 mm/hr 13 4 3 4 4 Results for SADIEKIMBERLYAMBROCIOMelo Mancilla ( ) as of 08/07/2014 19:03 Ref. Range 10/16/2012 09:59 11/13/2012 07:55 12/26/2012 15:41 04/02/2013 14:42 08/07/2014 13:50 CRP High Sens No range found 3.8 6.1 2.5 6.7 1.7 CARDIAC STUDIES Echo 07/20/12 BP 129/73 SUMMARY: [...] See remainder of report for additional findings. Device interrogation-reviewed personally-no delivered therapies, greater than 99% ventricular pacedrhythm, no evidence of fluid overload on impedance monitoring, good activity, heart rates 60-90 beats per minute. PROBLEMS: Pulmonary embolism No recurrence off anticoagulation Pericarditis No recurrence Heart failure chronic systolic dysfunction Appears well compensated and euvolemic Previously did not tolerate spironolactone Possible candidate for Entresto Biventricular implantable cardioverter-defibrillator in situ Interrogated device: Pacing percentages: AP 42%; SHERIFF'S SERGEANT >99%Pacing percentages: AP 42%; SHERIFF'S SERGEANT >99% Mode switch episodes: None VHR: None Histograms reasonably well distributed. Non-ischemic cardiomyopathy Stable LVEF on medical and device/BiV therapy ASSESSMENT: Overall stable from a cardiovascular standpoint with improved exercise tolerance, less fatigue, andappearing to be well compensated and euvolemic. Except for high patient thresholds, he has not had any recurrent device issues and he is 99% ventricular paced with echocardiography today demonstrating an LVEF of 59%. He was noted to have mild concentric LVH and blood pressures have been slightly elevated. It would be reasonable to rule out infiltrative disease. He previously did not tolerate spironolactone secondary to a rash, but he could potentially be a candidate for eplerenone if his LV function deteriorates. He potentially could be a candidate for the newly approved heart failure medication Entresto with his improved LVEF, he and I are both willing to continue his current medical regimen for the moment. Prior discussion: He continues to do well [...] possible upgrade of his pacemaker to a HAND SUTURE WINDER-D. This could be related to his ventricular [...] effects to be aware of discussed. - No Changes in cardiac medications, but may be a candidate for Eplerenone if persistent LV systolic dysfunction he states that he was intolerant of this medication secondary to urticaria, although reviewing his [facility] chart, he was on spironolactone from 2001 for 2003, and it was discontinued somewhere between 2003- 2005. - If persistent fatigue, consider changing beta makeda to alternative beta makeda, from carvedilol to Toprol or bisoprolol - may be a candidate for Entresto in the future, will defer for now. 2. The following labs, referrals or other testing advised: - echocardiogram-done - Routine laboratories- on ROSY 3. COUNSELING: Specific issues or questions addressed on this visit: - As above - I cautioned him to limit his alcohol use - Reviewed his laboratories, EKG, and recent clinical course and echo images/findings, device interrogation findings - reviewed his short-term and long-term prognosis, HAND SUTURE WINDER -D implant, rationale for followup and need to continue current medical therapy - reviewed echocardiogram images personally 4. Cardiology follow-up scheduled for: - 6 Months or earlier as clinically indicated, Coordinate with EP cardiology and device interrogation - PCP and other subspecialists as previously arranged Brady Ugarte MD, [facility] welfare director Cardiology Director, Cardiovascular Critical Care Slot Tag Inserter, Advanced Heart Failure and Cardiomyopathy Program [facility] documented in this encounter Miscellaneous Notes * Assessment & Plan Note - Brady Ugarte MD - 02/03/2015 11:50 AM ESTAssociated Problem(s): Non-ischemic cardiomyopathy Stable LVEF on medical and device/BiV therapy * Assessment & Plan Note - Brady Ugarte MD - 02/03/2015 11:46 AM ESTAssociated Problem(s): Biventricular implantable cardioverter-defibrillator in situ- [employer] Interrogated device: Pacing percentages: AP 42%; SHERIFF'S SERGEANT >99%Pacing percentages: AP 42%; SHERIFF'S SERGEANT >99% Mode switch episodes: None VHR: None Histograms reasonably well distributed. * Assessment & Plan Note - Brady Ugarte MD - 02/03/2015 11:44 AM ESTAssociated Problem(s): Heart failure chronic systolic dysfunction Appears well compensated and euvolemic Previously did not tolerate spironolactone Possible candidate for Entresto * Assessment & Plan Note - Brady Ugarte MD - 02/03/2015 11:41 AM ESTAssociated Problem(s): Pericarditis No recurrence * Assessment & Plan Note - Brady Ugarte MD - 02/03/2015 11:41 AM ESTAssociated Problem(s): Pulmonary embolism No recurrence off anticoagulation documented in this encounter Plan of Treatment Upcoming Encounters Date Type Department Care Team (Late st Contact Info) Description 02/26/2024 10:00 AM EST Hospital Encounter Non-[place]vasive [place] [address] Arrived documented as of this encounter Results * High Sensitivity CRP (02/03/2015 9:08 AM EST) [facility] C-Reactive Protein High Sensitivity 4.3 mg/L [facility] Comment: Interpretations: 1) For accurate cardiac risk [...] from the test package insert) References: 1. Pyle TA et. al. ??AHA/CDC Scientific Statement: Markers of Inflammation and Cardiovascular Disease. ??Circulation 2003; 107:499-511 2. Ritesh PM. ??Clinical applications of C-reactive protein for cardiovascular disease detection and prevention. ??Circulation 2003; 107:363-369 Blood specimen (specimen) 02/03/2015 9:08 AM EST 02/03/2015 9:21 AM EST Narrative Resulting Agency Comment Spec In Lab Brady Ugarte MD CHEMISTRY ORDERABLES Performing Organization Address [facility] Co de Phone Number [facility] * pro-Brain Natriuretic Peptide (02/03/2015 9:08 AM EST) NT-proBNP 90 <=125 pg/mL [facility] Blood specimen (specimen) 02/03/2015 9:08 AM EST 02/03/2015 9:21 AM EST Narrative Resulting Agency Comment Spec In Lab Brady Ugarte MD CHEMISTRY ORDERABLES Performing Organization Address [facility] de Phone Number [facility] * (ABNORMAL) Comprehensive metabolic panel (non-fasting) (02/03/2015 9:08 AM EST) Pathologist [facility] Glucose 74 65 - 199 mg/dL [facility] MILLENNIUM Comment:Diabetes: >=200 mg/d L plus symptoms Blood Urea Nitrogen 22(H) 10 - 20 mg/dL [facility] MILLENNIUM Creatinine 0.92 0.80 - 1.50 mg/dL [facility]ILLENNI[facility] Comment: Please note that the pediatric reference intervals supplied above were not validated at [facility]. Results from pediatric patients should be interpreted in conjunction to the patient's age, height and muscle mass. Sodium 145 135 - 145 mmol/L [facility] MILLENNIUM Potassium 4.3 3.5 - 5.0 mmol/L [facility]ILLENNI[facility] Comment: Please note: ??Patients with WBC >100,000 may have falsely elevated Potassium levels. ??For accurate Potassium quantification in these patients send serum separator tube (gold top) for subsequent determinations. ??Contact the Clinical Chemistry Laboratory if there are any questions. Chloride 104 98 - 107 mmol/L [facility]ILLENNI[facility] Carbon Dioxide 26 22 - 31 mmol/L [facility] MILLENNIUM Anion Gap 15 5 - 15 mmol/L [facility]ILLENNI[facility] Calcium 9.9 8.5 - 10.5 mg/dL [facility]ILLEN[facility] Protein, Total 6.7 6.1 - 8.0 gm/dL [facility] MILLENNI[facility] Albumin 4.3 3.2 - 5.2 gm/dL [facility]ILLEN[facility] Aspartate Aminotransferase 16 0 - 39 unit/L [facility]ILLENNI[facility] Alanine Aminotransferase 20 0 - 55 unit/L [facility]ILLENNI[facility] Alkaline Phosphatase 54 40 - 120 unit/L [facility] MILLENNI[facility] Bilirubin, Total 1.1 0.2 - 1.3 mg/dL [facility] MILLENNIUM Bilirubin, Direct 0.2 0.0 - 0.3 mg/dL [facility] MILLENNIUM Est Glomerular Filtration Rate >60 >=60 [facility]ILLENNI[facility] Comment: This estimated GFR (eGFR) value was [...] the following links into your internet browser. [email or web address] Blood specimen (specimen) 02/03/2015 9:08 AM EST 02/03/2015 9:21 AM EST Narrative Resulting Agency Comment Spec In Lab Brady Ugarte MD CHEMISTRY ORDERABLES [facility] MILLENNI[facility] documented in this encounter Visit Diagnoses Diagnosis Cardiomyopathy Other primary cardiomyopathies Heart failure, unspecified heart failure chronicity, unspecified heart failure type Pulmonary embolism Other pulmonary embolism and infarction Pericarditis Unspecified disease of pericardium Biventricular implantable cardioverter-defibrillator in situ Non-ischemic cardiomyopathy Other primary cardiomyopathies documented in this encounter Care Teams Barrel Drum Cutter Relationship Specialty Start Date End Date Charli Jaramillo MD [address] [place] [address] PCP - General 03/25/11 08/07/22 documented as of this encounter
--- OUTSIDE RECORDS SUMMARY | 2023-12-11 18:46 | XMS_ITS | Encounter Summary ---
Author Organization [facility] Address [facility] [place] [address] Care Team Providers Care Email Marketing Processor Name Role Phone Carlos Valdez MD Primary Care Provider [phone] Encounter Details Date Type Department Care Team (Latest Contact Info) Description 05/05/2015 11:48 AM EST - 05/05/2015 11:59 PM [facility] Hospital Encounter [place] [address] Alison Marlow MD [facility] [place] [address] Discharge Disposition: Home Social History Tobacco Use [...] Sig Dispensed Refills Start Date End Date rvcvflo-[id number] affeine (EXCEDRIN MIGRAINE) 250-250-65 mg per tablet [...] st Contact Info) Description 02/26/2024 10:00 AM [facility] Hospital Encounter [place] [address] Arrived documented as of this encounter Visit Diagnoses Not on filedocumented in this encounter Care Teams Email Marketing Processor Relationship Specialty Start Date End Date Carlos Valdez MD [address] [place] [address] [address] [facility] [address] [place] [address] PCP - General 03/25/11 08/07/22 documented as of this encounter
--- OUTSIDE RECORDS SUMMARY | 2023-12-11 18:46 | XMS_ITS | Encounter Summary ---
[place] [address] Care Team Providers Care Glassblower Name Role Phone Carlos Valdez MD Primary Care Provider [phone] Encounter Details Date Type Department Care Team (Late st Contact Info) Description 10/21/2015 Telephone Cardiology at [address] [phone] Kaley Pacheco RN Social History Tobacco Use [...] encounter Miscellaneous Notes * Telephone Encounter - Kaley Pacheco RN - 10/21/2015 10:04 AM EDT Jerilyn, Can you do me favor and call Jimmie Parisa seen yesterday. His extra labs Dr. Ugarte ordered - SPEP, UPEP, and serum free light chains : came back today and arenormal. Thanks Joseph Call to pt per request of Dr. Glass above: He voices appreciation for call. documented in this encounter Plan of Treatment Upcoming Encounters Date Type Department Care Team (Late st Contact Info) Description 02/26/2024 10:00 AM EST Hospital Encounter Non-Invasive [place] [address] Arrived documented as of this encounter Visit Diagnoses Not on filedocumented in this encounter Care Teams Glassblower Relationship Specialty Start Date End Date Carlos Valdez MD [address] [place] [address] PCP - General 03/25/11 08/07/22 documented as of this encounter
--- OUTSIDE RECORDS SUMMARY | 2023-12-11 18:46 | XMS_ITS | Encounter Summary ---
[place] [address] Care Team Providers Care Fixing Machine Operator Name Role Phone Carlos Valdez MD Primary Care Provider [phone] Encounter Details Date Type Department Care Team (Latest Contact Info) Description 07/11/2016 12:45 PM EDT Laboratory Appointment Lab [address] [place] [phone] Heart failure, unspecified; Cardiomyopathy, unspecified; SOB (shortness of breath) Social History Tobacco [...] AM EST Hospital Encounter Non-[place] [phone] Arrived documented as of this encounter Procedures Procedure Name Priority Date/Time Associated Diagnosis Comments TSH Routine 07/11/2016 12:54 PM EDT Heart failure, unspecified Cardiomyopathy, unspecified PRO-BRAIN NATRIURETIC PEPTIDE STAT 07/11/2016 12:54 PM EDT Heart failure, unspecified Cardiomyopathy, unspecified SOB (shortness of breath) COMPREHENSIVE METABOLIC PANEL STAT 07/11/2016 12:54 PM EDT Heart failure, unspecified Cardiomyopathy, unspecified documented in this encounter Results * TSH (07/11/2016 12:54 PM EDT) Thyroid Stimulating Hormone 4.11 0.27 - 4.20 mcIU/mL [facility] Blood specimen (specimen) 07/11/2016 12:54 PM EDT 07/11/2016 1:02 PM EDT Narrative Resulting Agency Comment Spec In Lab Brady Ugarte MD CHEMISTRY ORDERABLES Performing Organization Address City/[facility]/ZIP Co de Phone Number [facility] [place] [address] * (ABNORMAL) pro-Brain Natriuretic Peptide (07/11/2016 12:54 PM EDT) NT-proBNP 169(H) <=125 pg/mL [facility] Blood specimen (specimen) 07/11/2016 12:54 PM EDT 07/11/2016 1:02 PM EDT Narrative Resulting Agency Comment Spec In Lab Brady Ugarte MD CHEMISTRY ORDERABLES Performing Organization Address City/[facility]/ZIP Co de Phone Number [facility] [place] [address] * Comprehensive metabolic panel (non-fasting) (07/11/2016 12:54 PM EDT) Glucose 124 65 - 199 mg/dL [facility] Comment:Diabetes: >=200 mg/d L plus symptoms Blood Urea Nitrogen 19 10 - 20 mg/dL [facility] Creatinine 0.89 0.80 - 1.50 mg/dL [facility] Comment: Please note that the pediatric reference intervals supplied above were not validated at [facility]. Results from pediatric patients should be interpreted in conjunction to the patient's age, height and muscle mass. Sodium 140 135 - 145 mmol/L [facility] Potassium 4.1 3.5 - 5.0 mmol/L [facility] Comment: Please note: ??Patients with WBC >100,000 may have falsely elevated Potassium levels. ??For accurate Potassium quantification in these patients send serum separator tube (gold top) for subsequent determinations. ??Contact the Clinical Chemistry Laboratory if there are any questions. Chloride 101 98 - 107 mmol/L [facility] Carbon Dioxide 26 22 - 31 mmol/L [facility] Anion Gap 13 5 - 15 mmol/L [facility] Calcium 9.4 8.5 - 10.5 mg/dL [facility] Protein, Total 6.6 6.1 - 8.0 gm/dL [facility] Albumin 3.9 3.2 - 5.2 gm/dL [facility] Aspartate Aminotransferase 13 0 - 39 unit/L [facility] Alanine Aminotransferase 14 0 - 55 unit/L [facility] Alkaline Phosphatase 47 40 - 120 unit/L [facility] Bilirubin, Total 0.9 0.2 - 1.3 mg/dL [facility] Bilirubin, Direct 0.2 0.0 - 0.3 mg/dL [facility] Est Glomerular Filtration Rate >60 >=60 [facility] Comment: This estimated GFR [...] the following links into your internet browser. [email or web address] Blood specimen (specimen) 07/11/2016 12:54 PM EDT 07/11/2016 1:02 PM EDT Narrative Resulting Agency Comment Spec In Lab Brady Ugarte MD CHEMISTRY ORDERABLES [facility] [place] [address] documented in this encounter Visit Diagnoses Diagnosis Heart failure, unspecified Cardiomyopathy, unspecified SOB (shortness of breath) Shortness of breath documented in this encounter Care Teams Fixing Machine Operator Relationship Specialty Start Date End Date Carlos Valdez MD [address] [facility] [address] [place] [address] PCP - General 03/25/11 08/07/22 documented as of this encounter
--- OUTSIDE RECORDS SUMMARY | 2023-12-11 18:46 | XMS_ITS | Encounter Summary ---
[place] [address] Care Team Providers Care Consolidator Name Role Phone Carlos Valdez MD Primary Care Provider [phone] Encounter Details Date Type Department Care Team (Late st Contact Info) Description 04/11/2016 Telephone Cardiology at [address] [phone] Maki Gamez RN Social History Tobacco Use Types Packs/Day [...] encounter Miscellaneous Notes * Telephone Encounter - Maki Gamez RN - 04/11/2016 8:23 AM EST Patient called to be notified that his transmission with his new device was successful. Kiley Gamez RN documented in this encounter Plan of Treatment Upcoming Encounters Date Type Department Care Team (Late st Contact Info) Description 02/26/2024 10:00 AM EST Hospital Encounter Non-[place] [address] Arrived documented as of this encounter Visit Diagnoses Not on filedocumented in this encounter Care Teams Consolidator Relationship Specialty Start Date End Date Carlos Valdez MD [address] [facility] [address] [place] [address] PCP - General 03/25/11 08/07/22 documented as of this encounter
--- OUTSIDE RECORDS SUMMARY | 2023-12-11 18:46 | XMS_ITS | Encounter Summary ---
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 Name Role Phone Carlos Valdez MD Primary Care Provider [phone] Reason for Visit * Auth/Cert Specialty Diagnoses / Procedures Referred By Contac t Referred To Contact Diagnoses nicm/roman Procedures PRO ELECTROPHYS EV, R A-V PACE/REC, W/O INDUCT ELECTROPHYSIOLOGY PROCEDURE Referral ID Status Reason Start Date Expiration Date Visits Re quested Visits Authorized [id number] 1 1 Encounter Details Date Type Department Care Team (Latest Contact Info) Description 03/25/2016 6:31 AM EST - 03/25/2016 10:27 AM [facility] Hospital [place] [address] Lata Mcarthur MD [facility] [place] [address] Cardiomyopathy Discharge Disposition: Home Social History Tobacco Use [...] Sign Reading Time Taken Comments Blood Pressure 138/81 03/25/2016 10:11 AM EST Pulse 60 03/25/2016 9:25 AM EST Temperature 36.3 ??C (97.3 ??F) 03/25/2016 9:46 AM ES T Respiratory Rate 16 03/25/2016 10:11 AM EST Oxygen Saturation 96% 03/25/2016 10:11 AM EST Inhaled Oxygen Concentration - - Weight 103 kg (227 lb) 03/25/2016 7:27 AM EST Height 198.1 cm (6' 6) 03/25/2016 7:27 AM EST Body Mass Index 26.23 03/25/2016 7:27 AM EST documented in this encounter Discharge Summaries * Lata Mcarthur MD - 03/25/2016 9:39 AM EST Cardiac EP Discharge Summary Patient Name: Jimmie Mccauley Patient Age: 70 y.o. 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 Active Non-Hospital Problems Diagnosis ??? ICD (implantable cardioverter-defibrillator) malfunction - [employer] ??? Biventricular implantable cardioverter-defibrillator in situ 02/19/2013 Cardiac Resynchronization Therapy ICD Upgrade (explant of pacemaker pulse generator), peripheral Subclavian Venography, Cinefluoroscopy, pacemaker pocket revision and defibrillation safety margin testing, under General anesthesia Indication: Cardiomopathy with congestive heart failure and ventricular dyssynchrony, ventricular pacing New Ventricular electrode: [employer] Model# 7122Q-58 cm Serial #[id number] Implanted 02/18/2013 Bipolar, steroid-tipped, active-fixation DF-4 lead Access: Axillary vein Location: Right ventricular apical septum (old) Atrial electrode: Medtronic, Model # 5568-52 cm Serial # [id number] Implanted 06/14/2012 Bipolar, steroid-tipped, active-fixation IS-1 lead Access: Not known Location Right atrium anterolateral Coronary sinus electrode: [employer] 1458Q/86 Serial number [id number] Implanted 02/18/2013 Quadripolar passive active fixation lead Access: Subclavian vein Location: Coronary sinus, posterolateral vein Pulse generator: [employer] [id number] Serial number [id number] Implanted 02/18/2013 CHANNEL MARKETING MANAGER ICD Location: Subcutaneous Old ventricular lead : Medtronic 5075 Serial number [id number] (capped 02/18/2013) Old pulse generator: Medtronic ADDR01 Serial number [id number] (removed 02/18/2013) Detection and termination of ventricular [...] Trivial pleural effusion on chest x-ray Elevated IOU=673 a-->3.8 AN ESR=53 on index presentation --> [...] with left bundle branch block, PVCs, QRS lmlhgyaq=820 msec. Symptomatic CHB 06/13/12- s/p DDDR pacemaker [...] Carvedilol ROSY/ARB Yes Losartan Spironolactone no Previously 9405-1292, d/c secondary to side effects (hives), no rechallenge Amlodipine Yes Initiated 3/13 [place] AFIB? no Anticoagulated AICD/Type CHANNEL MARKETING MANAGER-D LBBB, EF dropped to 35%- 04/02/13 back up at ~ 50% post CHANNEL MARKETING MANAGER NSR with LBBB, QRS= 170 ms CHB [...] use ??? LBBB (left bundle branch block) MKG=299 ms New Symptomatic CHB 05/30-->declined pacer at initial presentation while traveling -S/p temp pacer-->Permanent DDDR pacer -LVEF~ 50-55%, ICD not indicated, but at risk for V paced rhythm dyssynchrony ??? Complete heart block Symptomatic bradycardia with CHB and LBBB, HR in the 20-30s Initially seen at a local ER, pacemaker recommended, but declined While in ICU, [place], called [facility] in cath report, but likely symptomatic bradycardia and CHB CHB- s/p temporary pacer 06/13/2012 - cath: Angiogram, mild irregularities of LAD, LCXF dominant, 30-40% mid RCA - No LV gram done S/p DDD-R Pacemaker Medtronic Adapta Dual Chamber Model # ADDR01, Serial number [id number] -[place] ??? HX SUDDEN CARDIAC ARREST Probably bradycardic induced, presenting with symptomatic CHB, and requiring defibrillation 05/2012 Operations/Major Procedures: Operations: CHANNEL MARKETING MANAGER-D pulse generator repacement Moderate sedation Vital Signs at Discharge: BP: (!) 142/98, Heart Rate: 60, Temp: 36.7 ??C (98.1 ??F), Resp: 12, BMI (Calculated): 26.3 Height: (!) 198.1 cm (6' 6) (03/25/16726) Weight - Scale: (!) 103 kg (227 lb) (03/25/16726) Important Studies and Lab Data: Labs: Recent Results (from the past 24 hour(s)) BMP w/fasting Glucose Result Value Ref Range Glucose Fasting 100 (H) 65 - 99 mg/dL BUN 19 10 - 20 mg/dL Creatinine 0.88 0.80 - 1.50 mg/dL Sodium 142 135 - 145 mmol/L Potassium 4.4 3.5 - 5.0 mmol/L Chloride 104 98 - 107 mmol/L CO2 25 22 - 31 mmol/L Anion Gap 13 5 - 15 mmol/L Calcium 9.0 8.5 - 10.5 mg/dL Estimated GFR >60 >=60 Prothrombin Time Result Value Ref Range PT 13.6 12.0 - 15.0 sec INR 1.0 0.9 - 1.1 Hemogram Result Value Ref Range WBC 7.9 4.0 - 9.5 x10(3)/mcL RBC 5.17 4.58 - 5.54 x10(6)/mcL Hemoglobin 15.2 13.7 - 16.5 gm/dL Hematocrit 44.2 40.5 - 48.5 % MCV 85.5 82.9 - 93.1 fL MCH 29.4 27.5 - 32.1 pg MCHC 34.4 32.0 - 35.7 gm/dL Platelets 191 145 - 357 x10(3)/mcL RDWSD 37.7 36.0 - 45.0 fL RDWCV 12.1 11.4 - 13.8 % MPV 10.3 7.6 - 12.9 fL nRBC % Auto 0.0 % nRBC Abs Auto 0.000 0.000 - 0.000 x10(3)/mcL Differential, Automated Result Value Ref Range Neutrophils % 57.5 % Neutr Abs (ANC) 4.55 1.70 - 6.10 x10(3)/mcL Lymphocytes % 30.7 % Lymphocytes Abs 2.4 0.9 - 3.2 x10(3)/mcL Monocytes % 8.2 % Monocyte Abs 0.6 0.3 - 0.9 x10(3)/mcL Eosinophils % 3.0 % Eosinophils Abs 0.2 0.0 - 0.4 x10(3)/mcL Basophils % 0.6 % Basophils Abs 0.0 0.0 - 0.1 x10(3)/mcL Immature Gran % 0.00 % Elva Gran Abs 0.00 0.00 - 0.04 x10(3)/mcL Discharge Conditions/Prognosis: stable Discharge to: home Updated Allergies/ADRs: Allergies Allergen Reactions ??? Lasix [Furosemide] Rash Immunizations Given this Hospitalization: Immunization History Administered Date(s) Administered ??? Influenza PF, Split 01/11/2011, 01/11/2012 ??? Influenza Vaccine w/Preservative, Split 01/11/2011 ??? Influenza Vaccine, Whole 02/03/2005, 02/06/2006, 02/22/2007 ??? Pneumococcal Polyvalent 23 02/22/2007 Discharge Medications: Your Medications Continued medications, unchanged Dose Details llplsit-bnekumtsueotn-hqvmyhop 250-250-65 mg Tab Commonly known as: EXCEDRIN MIGRAINE Take 1 tablet by mouth every 6 hours as needed. 1 tablet Refills: 0 carvedilol 6.25 mg Tab Commonly known as: COREG Take 1 tablet by mouth 2 times daily (with meals). 6.25 mg Quantity: 180 tablet Refills: 3 HYDROcodone-acetaminophen 5-500 mg Tab Commonly known as: VICODIN Take 1 tablet by mouth every 6 hours as needed. 1 tablet Refills: 0 ibuprofen 200 mg Tab Commonly known as: ADVIL;MOTRIN Take 400 mg by mouth every 6 hours as needed. 400 mg Refills: 0 losartan 50 mg Tab Commonly known as: COZAAR take 1 tablet by mouth once daily Quantity: 30 tablet Refills: 11 multivitamin Tab Commonly known as: THERAGRAN Take 1 tablet by mouth daily. 1 tablet Refills: 0 pravastatin 10 mg Tab Commonly known as: PRAVACHOL Take 10 mg by mouth daily. 10 mg Refills: 0 sildenafil 100 mg Tab Commonly known as: VIAGRA Take 1 tablet by mouth once as needed. 100 mg Quantity: 10 tablet Refills: 0 zolpidem 10 mg Tab Commonly known as: AMBIEN Take 1 tablet by mouth nightly. 10 mg Quantity: 30 tablet Refills: 0 STOPPED Medications chlorhexidine 4 % Liqd Commonly known as: HIBICLENS Smoking Status at Discharge: History Smoking Status ??? Former Smoker ??? Types: Cigarettes ??? Quit date: 01/12/1996 Smokeless Tobacco ??? Never Used Comment: stopped 15 years Instructions Given to Patient at Discharge: Patient Instructions WOUND CARE FOR PATIENTS WITH PACEMAKERS AND ICD DEVICES Your wound will usually heal in 7-10 days. Your wound may be tender, it may appear slightly red andbumpy and there may be dry, crusty scabbing. These are all normal. Follow the instructions that follow to care for your wound. Either you or someone with you needs to look at the wound everyday. Inspect the wound for signs of infection which can be drainage, swelling, warmth or increased pain or redness. Notify your doctor if your temperature is 100 degrees F or higher. If you are concerned about an infection in your wound or if the edges of the wound separate, call your doctor. A needle should not be put into the wound area because this can damage the pacemaker lead. You may need to remind your health-care provider of this concern. The sutures will dissolve on their own. Do not scratch or rub the wound. Do not apply any creams, lotions or ointments on the wound until it is completely healed. You may cover the wound with gauze if it rubs on clothing and causes you discomfort. Do not shower for 48 hours after implant. While in the shower, turn your back to the water nozzle so you avoid direct water pressure on the wound. You should continue this for 7 - 10 days. You may take a tub bath, but keep the wound above the water level in the tub until the scab is gone. This usually takes 7 - 10 days. Avoid swimming until the same occurs. After 48 hours, you may wash the wound gently with soap and water. ARM MOVEMENT RESTRICTIONS FOR PATIENTS WITH PACEMAKERS AND ICD DEVICES Do not raise your elbow on the operated side above the shoulder for 1 week These discharge instructions have been reviewed and given to the patient. The patient verbalized understanding of this information. How to Care for Your Wound After It???s Treated With DERMABOND* Topical Skin Adhesive DERMABOND* Topical Skin Adhesive (2-octyl cyanoacrylate) is a sterile, liquid skin adhesive that holds wound edges together. The film will usually remain in place for 5 to 10 days, then naturally fall off your skin. The following will answer some of your questions and provide instructions for proper care for your wound while it is healing: CHECK WOUND APPEARANCE ??? Some swelling, redness, and pain are common with all wounds and normally will go away as the wound heals. If swelling, redness, or pain increases or if the wound feels warm to the touch, contact a doctor. Also contact a doctor if the wound edges reopen or separate. REPLACE BANDAGES ??? If your wound is bandaged, keep the bandage dry. ??? Replace the dressing daily until the adhesive film has fallen off or if the bandage should become wet, unless otherwise instructed by your physician. ??? When changing the dressing, do not place tape directly over the DERMABOND adhesive film, because removing the tape later may also remove the film. AVOID TOPICAL MEDICATIONS ??? Do not apply liquid or ointment medications or any other product to your wound while the DERMABOND adhesive film is in place. These may loosen the film before your wound is healed. KEEP WOUND DRY AND PROTECTED ??? You may occasionally and briefly wet your wound in the shower or bath. Do not soak or scrub your wound, do not swim, and avoid periods of heavy perspiration until the DERMABOND adhesive has naturally fallen off. After showering or bathing, gently blot your wound dry with a soft towel. If a protective dressing is being used, apply a fresh, dry bandage, being sure to keep the tape off the DERMABOND adhesive film. ??? Apply a clean, dry bandage over the wound if necessary to protect it. ??? Protect your wound from injury until the skin has had sufficient time to heal. ??? Do not scratch, rub, or pick at the DERMABOND adhesive film. This may loosen the film before your wound is healed. ??? Protect the wound from prolonged exposure to sunlight or tanning lamps while the film is in place. If you have any questions or concerns about this product, please consult your doctor. General Instructions None Discharge References/Attachments None documented in this encounter Discharge Instructions * Patient Instructions* Lata Mcarthur MD - 03/25/2016 9:36 AM EST WOUND CARE FOR PATIENTS WITH PACEMAKERS AND ICD DEVICES Your wound will usually heal in 7-10 days. Your wound may be tender, it may appear slightly red andbumpy and there may be dry, crusty scabbing. These are all normal. Follow the instructions that follow to care for your wound. Either you or someone with you needs to look at the wound everyday. Inspect the wound for signs of infection which can be drainage, swelling, warmth or increased pain or redness. Notify your doctor if your temperature is 100 degrees F or higher. If you are concerned about an infection in your wound or if the edges of the wound separate, call your doctor. A needle should not be put into the wound area because this can damage the pacemaker lead. You may need to remind your health-care provider of this concern. The sutures will dissolve on their own. Do not scratch or rub the wound. Do not apply any creams, lotions or ointments on the wound until it is completely healed. You may cover the wound with gauze if it rubs on clothing and causes you discomfort. Do not shower for 48 hours after implant. While in the shower, turn your back to the water nozzle so you avoid direct water pressure on the wound. You should continue this for 7 - 10 days. You may take a tub bath, but keep the wound above the water level in the tub until the scab is gone. This usually takes 7 - 10 days. Avoid swimming until the same occurs. After 48 hours, you may wash the wound gently with soap and water. ARM MOVEMENT RESTRICTIONS FOR PATIENTS WITH PACEMAKERS AND ICD DEVICES Do not raise your elbow on the operated side above the shoulder for 1 week These discharge instructions have been reviewed and given to the patient. The patient verbalized understanding of this information. How to Care for Your Wound After It???s Treated With DERMABOND* Topical Skin Adhesive DERMABOND* Topical Skin Adhesive (2-octyl cyanoacrylate) is a sterile, liquid skin adhesive that holds wound edges together. The film will usually remain in place for 5 to 10 days, then naturally fall off your skin. The following will answer some of your questions and provide instructions for proper care for your wound while it is healing: CHECK WOUND APPEARANCE ??? Some swelling, redness, and pain are common with all wounds and normally will go away as the wound heals. If swelling, redness, or pain increases or if the wound feels warm to the touch, contact a doctor. Also contact a doctor if the wound edges reopen or separate. REPLACE BANDAGES ??? If your wound is bandaged, keep the bandage dry. ??? Replace the dressing daily until the adhesive film has fallen off or if the bandage should become wet, unless otherwise instructed by your physician. ??? When changing the dressing, do not place tape directly over the DERMABOND adhesive film, because removing the tape later may also remove the film. AVOID TOPICAL MEDICATIONS ??? Do not apply liquid or ointment medications or any other product to your wound while the DERMABOND adhesive film is in place. These may loosen the film before your wound is healed. KEEP WOUND DRY AND PROTECTED ??? You may occasionally and briefly wet your wound in the shower or bath. Do not soak or scrub your wound, do not swim, and avoid periods of heavy perspiration until the DERMABOND adhesive has naturally fallen off. After showering or bathing, gently blot your wound dry with a soft towel. If a protective dressing is being used, apply a fresh, dry bandage, being sure to keep the tape off the DERMABOND adhesive film. ??? Apply a clean, dry bandage over the wound if necessary to protect it. ??? Protect your wound from injury until the skin has had sufficient time to heal. ??? Do not scratch, rub, or pick at the DERMABOND adhesive film. This may loosen the film before your wound is healed. ??? Protect the wound from prolonged exposure to sunlight or tanning lamps while the film is in place. If you have any questions or concerns about this product, please consult your doctor. documented in this encounter Medications at Time of Discharge Medication Sig Dispensed Refills Start Date End Date multivitamin (THERAGRAN) Tablet Take 1 tablet by mouth daily. rkcdwji-htwachmycseeu-i affeine (EXCEDRIN MIGRAINE) 250-250-65 mg per tablet [...] times daily (with meals). 180 tablet 3 10/20/2015 07/11/2016 losartan (COZAAR) 50 mg Tablet take 1 tablet by mouth once daily 30 tablet 11 08/12/2014 02/15/2017 documented as of this encounter H&P Notes * Lata Mcarthur MD - 03/25/2016 7:39 AM EST Jimmie Mccauley [id number] 03/25/2016 70 y.o. Cardiology History and Physical PCP: Carlos Valdez MD I performed a history and physical exam of the patient Admission Diagnosis: CHANNEL MARKETING MANAGER-D - here for elective replacement for [employer] '[employer] Cluster' Recall Date of Evaluation: 03/25/2016 Date of Admission: 03/25/2016 Problem List: Patient Active Problem List Diagnosis ??? ICD (implantable cardioverter-defibrillator) malfunction - [facility] [employer] ??? Biventricular implantable cardioverter-defibrillator in situ 02/19/2013 Cardiac Resynchronization Therapy ICD Upgrade (explant of pacemaker pulse generator), peripheral Subclavian Venography, Cinefluoroscopy, pacemaker pocket revision and defibrillation safety margin testing, under General anesthesia Indication: Cardiomopathy with congestive heart failure and ventricular dyssynchrony, ventricular pacing New Ventricular electrode: [employer] Model# 7122Q-58 cm Serial #[id number] Implanted 02/18/2013 Bipolar, steroid-tipped, active-fixation DF-4 lead Access: Axillary vein Location: Right ventricular apical septum (old) Atrial electrode: [employer]tronic, Model # 5568-52 cm Serial # [id number] Implanted 06/14/2012 Bipolar, steroid-tipped, active-fixation IS-1 lead Access: Not known Location Right atrium anterolateral Coronary sinus electrode: [employer] 1458Q/86 Serial number [id number] Implanted 02/18/2013 Quadripolar passive active fixation lead Access: Subclavian vein Location: Coronary sinus, posterolateral vein Pulse generator: [employer] [id number] Serial number [id number] Implanted 02/18/2013 CHANNEL MARKETING MANAGER ICD Location: Subcutaneous Old ventricular lead : Medtronic 5075 Serial number [id number] (capped 02/18/2013) Old pulse generator: Medtronic ADDR01 Serial number [id number] (removed 02/18/2013) Detection and termination of ventricular [...] Trivial pleural effusion on chest x-ray Elevated PUJ=561 a-->3.8 AN ESR=53 on index presentation --> [...] with left bundle branch block, PVCs, QRS ymjlfksk=425 msec. Symptomatic CHB 06/13/12- s/p DDDR pacemaker [...] Carvedilol ROSY/ARB Yes Losartan Spironolactone no Previously 5571-5523, d/c secondary to side effects (hives), no rechallenge Amlodipine Yes Initiated 05/30 [place] AFIB? no Anticoagulated AICD/Type CHANNEL MARKETING MANAGER-D LBBB, EF dropped to 35%- 04/02/13 back up at ~ 50% post CHANNEL MARKETING MANAGER NSR with LBBB, QRS= 170 ms CHB [...] use ??? LBBB (left bundle branch block) GFX=790 ms New Symptomatic CHB 05/30-->declined pacer at initial presentation while traveling -S/p temp pacer-->Permanent DDDR pacer -LVEF~ 50-55%, ICD not indicated, but at risk for V paced rhythm dyssynchrony ??? Complete heart block Symptomatic bradycardia with CHB and LBBB, HR in the 20-30s Initially seen at a local ER, pacemaker recommended, but declined While in ICU, [place], called [facility] in cath report, but likely symptomatic bradycardia and CHB CHB- s/p temporary pacer 06/13/2012 - cath: Angiogram, mild irregularities of LAD, LCXF dominant, 30-40% mid RCA - No LV gram done S/p DDD-R Pacemaker Medtronic Adapta Dual Chamber Model # ADDR01, Serial number [id number] -[place], [place] ??? HX SUDDEN CARDIAC ARREST Probably bradycardic induced, presenting with symptomatic CHB, and requiring defibrillation 05/2012 Prescriptions Prior to Admission Medication Sig Dispense Refill Last Dose ??? chlorhexidine (HIBICLENS) 4 % Liquid Apply topically daily as needed. Shower/bathe from head totoe with Chlorhexidine the night before the procedure and the morning of the procedure. . 120 mL 0 03/25/2016 at Unknown time ??? carvedilol (COREG) 6.25 mg Tablet Take 1 tablet by mouth 2 times daily (with meals). 180 tablet3 03/25/2016 at Unknown time ??? multivitamin (THERAGRAN) Tablet Take 1 tablet by mouth daily. 03/24/2016 at Unknown time ??? losartan (COZAAR) 50 mg Tablet take 1 tablet by mouth once daily 30 tablet 11 03/25/2016 at Unknown time ??? pravastatin (PRAVACHOL) 10 mg Tablet Take 10 mg by mouth daily. 03/24/2016 at Unknown time ??? fgcgneb-ffmnorvrwmbdl-akojskpd (EXCEDRIN MIGRAINE) 250-250-65 mg per tablet Take 1 tablet by mouth every 6 hours as needed. 03/24/2016 at Unknown time ??? hydroCODone-acetaminophen (VICODIN) 5-500 mg per tablet Take 1 tablet by mouth every 6 hours asneeded. 03/24/2016 at Unknown time ??? zolpidem (AMBIEN) 10 mg tablet Take 1 tablet by mouth nightly. 30 tablet 0 03/24/2016 at Unknown time ??? ibuprofen (ADVIL;MOTRIN) 200 mg tablet Take 400 mg by mouth every 6 hours as needed. Unknown atUnknown time ??? sildenafil (VIAGRA) 100 mg tablet Take 1 tablet by mouth once as needed. 10 tablet 0 Unknown atUnknown time HPI: This 70 y.o. male seen in same day for pre-operative evaluation for a CHANNEL MARKETING MANAGER-D pulse generator replacement for the '[employer]' recall. From his most recent clinic visit (02/2016) '..70yo man with [employer] CHANNEL MARKETING MANAGER-D now under advisory for potential sudden premature cell depletion. He originally had a pacemaker implanted on 06/14/2012 for CHB at [facility] in [place], [place]. He underwent upgrade to CHANNEL MARKETING MANAGER-D on 02/18/2013 at [facility] for CHF, CM, ventricular dyssynchrony. He apparently developed a UTI around the time of the implant. He did not attend the recent device advisory meeting. [place] He [place] in [place] and [facility] travelling about in his trailer...' NPO since last night Took coreg this am No significant abx allergies No recent infectious symptoms ROS/PMHx/Fam Hx/Soc Hx: Reviewed, see outpatient note. Physical Exam: Vital signs: BP (!) 164/95 Pulse 66 Temp 36.7 ??C (98.1 ??F) (Temporal) Ht (!) 198.1 cm (6' 6) Wt (!) 103 kg (227 lb) SpO2 93% BMI 26.23 kg/m2 Physical Exam Constitutional: He is oriented to person, place, and time. He appears well- developed. No distress. Body mass index is 26.23 kg/(m^2). HENT: Mouth/Throat: No oropharyngeal exudate. Eyes: No scleral icterus. Neck: No JVD present. No tracheal deviation present. No thyromegaly present. Cardiovascular: Normal rate. Exam reveals no gallop. No murmur heard. Pulmonary/Chest: No respiratory distress. He has no wheezes. He has no rales. Abdominal: Soft. Musculoskeletal: He exhibits no edema. Neurological: He is oriented to person, place, and time. Skin: Skin is dry. Psychiatric: He has a normal mood and affect. Lab (Last 24 Hours): No results found for this or any previous visit (from the past 24 hour(s)). Assessment: 1. 70 y.o. man with CHANNEL MARKETING MANAGER-D, '[employer]' battery recall - here for elective pulse generator replacement 2. Moderate sedation, consent already signed Plan: 1. The working diagnosis and plan of management was reviewed with the patient 2. Questions were addressed. 3. Anticipate discharge to home later today. The majority of my unit/floor time was spent counseling, and coordinating care for the patient regarding the diagnosis, diagnostic and therapeutic treatment plan. LATA MACRTHUR MD 03/25/2016 documented in this encounter Nursing Notes * Carlos Portillo, RN - 03/25/2016 9:33 AM EST Case cart needle count instrument Count correct and same before and after procedure documented in this encounter Plan of Treatment Upcoming Encounters Date Type Department Care Team (Late st Contact Info) Description 02/26/2024 10:00 AM EST Hospital Encounter [place] [id number] Arrived documented as of this encounter Procedures Procedure Name Priority Date/Time Associated Diagnosis Comments BMP W/FASTING GLUCOSE STAT 03/25/2016 8:10 AM EST Cardiomyopathy HEMOGRAM STAT 03/25/2016 8:10 AM EST Cardiomyopathy DIFFERENTIAL, AUTOMATED STAT 03/25/2016 8:10 AM EST Cardiomyopathy PROTHROMBIN TIME STAT 03/25/2016 8:10 AM EST Cardiomyopathy CBC (WITH DIFF) STAT 03/25/2016 8:10 AM EST Cardiomyopathy EKG 12-LEAD Routine 03/25/2016 7:45 AM EST Cardiomyopathy documented in this encounter Results * Differential, Automated (03/25/2016 8:10 AM EST) Neutrophil % 57.5 % [facility] Neutrophil Absolute 4.55 1.70 - 6.10 x10(3)/[facility]L [facility] Lymph % 30.7 % [facility] Lymphocytes Abs 2.4 0.9 - 3.2 x10(3)/[facility] Monocyte % 8.2 % [facility] Monocyte Abs 0.6 0.3 - 0.9 x10(3)/[facility] Eos % 3.0 % [facility] Eosinophils Abs 0.2 0.0 - 0.4 x10(3)/[facility] Basophil % 0.6 % [facility] Baso Absolute 0.0 0.0 - 0.1 x10(3)/[facility] Immature Gran % 0.00 % [facility] Comment: Immature granulocytes(IG's)percentage and absolute count will include metamyelocytes, myelocytes, and promyelocytes. Blood smears from CBCs yielding IG's will be scanned manually for concordance. If this scan disagrees with the automated IG or if promyelocytes are noted, a manual differential will be performed. Immature Gran Absolute 0.00 0.00 - 0.04 x10(3)/[facility] Blood specimen (specimen) 03/25/2016 8:10 AM EST 03/25/2016 8:20 AM EST Narrative Resulting Agency Comment Spec In Lab Luis Ward MD HEMATOLOGY ORDERABL ES Performing Organization Address City/State/[facility] Co de Phone Number [facility] [place] [address] * Hemogram (03/25/2016 8:10 AM EST) White Blood Cell 7.9 4.0 - 9.5 x10(3)/[facility] Red Blood Cell 5.17 4.58 - 5.54 x10(6)/[facility] Hemoglobin 15.2 13.7 - 16.5 gm/dL [facility] Hematocrit 44.2 40.5 - 48.5 % [facility] Mean Cell Volume 85.5 82.9 - 93.1 fL [facility] Mean Cell Hemoglobin 29.4 27.5 - 32.1 pg [facility] Mean Cell Hemoglobin Concentration 34.4 32.0 - 35.7 gm/dL [facility] Platelet 191 145 - 357 x10(3)/[facility] RDW Standard Deviation 37.7 36.0 - 45.0 fL [facility] RDW coefficient of variation 12.1 11.4 - 13.8 % [facility] Mean Platelet Volume 10.3 7.6 - 12.9 fL [facility] NRBC% auto 0.0 % [facility] NRBC Absolute 0.000 0.000 - 0.000 x10(3)/[facility] Blood specimen (specimen) 03/25/2016 8:10 AM EST 03/25/2016 8:20 AM EST Narrative Resulting Agency Comment Spec In Lab Luis Ward MD HEMATOLOGY ORDERABL ES [facility] [place] [address] * Prothrombin Time (03/25/2016 8:10 AM EST) Prothrombin Time 13.6 12.0 - 15.0 sec [facility] Comment: An INR <2.0 indicates adequate procoagulant activity for hemostasis in most patients without underlying bleeding disorders, though the INR may not adequately reflect hemostatic capacity in patients with liver disease and synthetic impairment. The recommended target INR range for therapeutic anticoagulation is 2.0 ? 3.0 for most applications, though lower and higher ranges may be appropriate depending on clinical circumstances. International Normalization Ratio 1.0 0.9 - 1.1 [facility] Blood specimen (specimen) 03/25/2016 8:10 AM EST 03/25/2016 8:20 AM EST Narrative Resulting Agency Comment Spec In Lab Luis Ward MD HEMATOLOGY ORDERABL ES [facility] [place] [address] * (ABNORMAL) BMP w/fasting Glucose (03/25/2016 8:10 AM EST) [facility] Signature Glucose Fasting 100(H) 65 - 99 mg/dL [facility] Comment: ?Fasting* Glucose Interpretive [...] of Diabetes Mellitus, Position Statement from the [place] [employer]. ??Diabetes Care, Volume 33, Supplement 1, Mar 2009 Blood Urea Nitrogen 19 10 - 20 mg/dL [facility] Creatinine 0.88 0.80 - 1.50 mg/dL [facility] Comment: Please note that the pediatric reference intervals supplied above were not validated at [facility]. Results from pediatric patients should be interpreted in conjunction to the patient's age, height and muscle mass. Sodium 142 135 - 145 mmol/L [facility] Potassium 4.4 3.5 - 5.0 mmol/L [facility] Comment: Please note: ??Patients with WBC >100,000 may have falsely elevated Potassium levels. ??For accurate Potassium quantification in these patients send serum separator tube (gold top) for subsequent determinations. ??Contact the Clinical Chemistry Laboratory if there are any questions. Chloride 104 98 - 107 mmol/L [facility] Carbon Dioxide 25 22 - 31 mmol/L [facility] Anion Gap 13 5 - 15 mmol/L [facility] Calcium 9.0 8.5 - 10.5 mg/dL [facility] Est Glomerular Filtration Rate >60 >=60 [facility] Comment: This estimated GFR (eGFR) [...] the following links into your internet browser. [email or web address] [email or web address] Blood specimen (specimen) 03/25/2016 8:10 AM EST 03/25/2016 8:20 AM EST Narrative Resulting Agency Comment Spec In Lab Luis Ward MD CHEMISTRY ORDERABLE S Performing Organization Address City/[facility] Co de Phone Number [facility] [place] [phone] * EKG 12 Lead (03/25/2016 7:45 AM EST) Ventricular rate 60 BPM MUSE SYSTEM Atrial Rate 60 BPM MUSE SYSTEM P-R Interval 200 ms MUSE SYSTEM QRS Duration 98 ms MUSE SYSTEM Q-T Interval 448 ms MUSE SYSTEM QTC Calculated (Bezet) 448 ms MUSE SYSTEM Calculated P [place] -10 degrees MUSE SYSTEM Calculated R [place] -56 degrees MUSE SYSTEM Calculated T [place] 21 degrees MUSE SYSTEM INTERPRETATION Dual Chamber Pacemaker with atrial and ventricular paced rhythm * ACUTE [place] ?? Abnormal ECG When compared with ECG of 10-DEC-2014 14:41, No significant change was found Confirmed by MD REGAN, CARMELA ([id number]) on 03/25/2016 2:05:53 PM MUSE SYSTEM 03/25/2016 7:45 AM EST 03/25/2016 2:05 PM EST Luis Ward MD ECG ORDERABLES Performing Organization Address [facility] Co de Phone Number MUSE SYSTEM documented in this encounter Visit Diagnoses Diagnosis Cardiomyopathy Other primary cardiomyopathies documented in this encounter Administered Medications Inactive Administered Medications - up to 3 most recent administrations Medication Order MAR Action Action Date Dose Rate Site BUpivacaine (PF) (MARCAINE) 0.5 % (5 mg/mL) injection 150 mg 150 mg (30 mL), Subcutaneous, ONCE, 1 dose, On Mon03/25/16 at 0900, EP (Intra-Procedure), Routine Given 03/25/2016 9:45 AM EST 5 mLs ceFAZolin (ANCEF) 2g in dextrose 5% 50 mL 2 g, Intravenous, ONCE, 1 dose, On Mon03/25/16 at 0745, Administer over 30 Minutes, Redose every 3 hours if CrCl is greater than 20. Redose every 8 hours if CrCl is less than 20., Day of Surgery (Day of Procedure), Indication for (Active or Suspected): Prophylaxis Given 03/25/2016 8:38 AM EST 2 g 100 mL/hr fentaNYL 50mcg/mL injection 25-50 mcg, Intravenous, EVERY 5 MIN PRN, Starting on Mon03/25/16 at 0841, Until Mon03/25/16 at 0918, Pain, As needed to induce or maintain moderate sedation per [facility] Moderate Sedation Policy for the duration of the EP procedure., As needed to induce or maintain moderate sedation per [facility] Moderate Sedation Policy for the duration of the EP procedure. For use in the electrophysiology lab (EP lab) only for procedural sedation with direct provider supervision and verbal order. RASS goal (-)2 to (-)3. Start at 25 mcg, Dose not to exceed 50 mcg/dose, 250 mcg/hr, or 20 mcg/kg per case., EP (Intra-Procedure), Routine Given 03/25/2016 9:00 AM EST 50 mcg Given 03/25/2016 8:49 AM EST 25 mcg Given 03/25/2016 8:41 AM EST 50 mcg lidocaine (XYLOCAINE) 10 mg/mL (1 %) injection 3 mg 3 mg (0.3 mL), Subcutaneous, ONCE PRN, 1 dose, Starting on Mon03/25/16 at 0725, Until Mon03/25/16 at 0840, for discomfort with PIV insertion, Day of Surgery (Day of Procedure), Routine Given 03/25/2016 8:40 AM EST 5 mLs midazolam (PF) (VERSED) 1 mg/mL injection 0.5-1 mg 0.5-1 mg, Intravenous, EVERY 5 MIN PRN, Starting on Mon03/25/16 at 0841, Until Mon03/25/16 at 0918, Anxiety, As needed to induce or maintain moderate sedation per [facility] Moderate Sedation Policy for the duration of the EP procedure., As needed to induce or maintain moderate sedation per [facility] Moderate Sedation Policy for the duration of the EP procedure. For use in the electrophysiology lab (EP lab) only for procedural sedation with direct provider supervision and verbal order. RASS goal (-)2 to (-)3. Dose not to exceed 1 mg per dose, 5mg/hour, or 0.2mg/kg per case., EP (Intra-Procedure), Routine Given 03/25/2016 8:49 AM EST 1 mg Given 03/25/2016 8:42 AM EST 1 mg documented in this encounter Active and Recently Administered Medications Times are shown in EST. Scheduled Medication Order 03/23/2016 03/24/2016 03/25/2016 BUpivacaine (PF) (MARCAINE) 0.5 % (5 mg/mL) injection 150 mg (COMPLETED) 150 mg (30 mL), Subcutaneous, ONCE, 1 dose, On Mon03/25/16 at 0900, EP (Intra-Procedure), Routine 0945 (Given - Provid er: Carlos Portillo RN) ceFAZolin (ANCEF) 2,000 mg in sodium chloride 0.9% 56.06 mL 2,000 mg (2 g), Intravenous, ONCE, 1 dose, On Mon03/25/16 at 0900, Administer over 30 Minutes, For use in the electrophysiology lab (EP lab) only for procedural sedation with direct provider supervision and verbal order., EP (Intra-Procedure), Indication for (Active or Suspected): Prophylaxis 0900 (Due) ceFAZolin (ANCEF) 2g in dextrose 5% 50 mL (COMPLETED) 2 g, Intravenous, ONCE, 1 dose, On Mon03/25/16 at 0745, Administer over 30 Minutes, Redose every 3 hours if CrCl is greater than 20. Redose every 8 hours if CrCl is less than 20., Day of Surgery (Day of Procedure), Indication for (Active or Suspected): Prophylaxis 0745 (Due)0838 (Give n - Provider: Carlos Portillo RN) lidocaine (XYLOCAINE) 20 mg/mL (2 %) injection 400 mg 400 mg (20 mL), Subcutaneous, ONCE, 1 dose, On Mon03/25/16 at 0900, EP (Intra-Procedure), Routine 0900 (Due) neomycin-polymyxin B (NEOSPORIN) irrigation solution Irrigation, ONCE, On Mon03/25/16 at 0900, 1 dose, EP (Intra-Procedure) 0900 (Due) sodium chloride 0.9 % flush 5 mL 5 mL, Intravenous, EVERY 12 HOURS, First dose on Mon03/25/16 at 0745, Until Discontinued, Day of Surgery (Day of Procedure), Routine 0745 (Due) sodium chloride 0.9 % flush 5 mL 5 mL, Intravenous, 2 TIMES DAILY, First dose on Mon03/25/16 at 1000, Until Discontinued, Routine 1000 (Due) Continuous Medication Order 03/23/2016 03/24/2016 03/25/2016 DOBUTamine 2,000 mcg/mL (standard ADULT & Abelardo greater than 20kg) 5 mcg/kg/min ? 103 kg (15.45 mL/hr, rounded to 15.5 mL/hr), Intravenous, CONTINUOUS, Starting on Mon03/25/16 at 0900, Until Mon03/25/16 at 1026, For use in the electrophysiology lab (EP lab) only for procedural sedation with direct provider supervision and verbal order., EP (Intra-Procedure) 0900 (Due) sodium chloride 0.9% infusion 75 mL/hr, Intravenous, CONTINUOUS, Starting on Mon03/25/16 at 0745, Until Mon03/25/16 at 1026, Day of Surgery (Day of Procedure) 0745 (Due) PRN Medication Order 03/23/2016 03/24/2016 03/25/2016 fentaNYL 50mcg/mL injection (CANCELED) 25-50 mcg, Intravenous, EVERY 5 MIN PRN, Starting on Mon03/25/16 at 0841, Until Mon03/25/16 at 0918, Pain, As needed to induce or maintain moderate sedation per [facility] Moderate Sedation Policy for the duration of the EP procedure., As needed to induce or maintain moderate sedation per [facility] Moderate Sedation Policy for the duration of the EP procedure. For use in the electrophysiology lab (EP lab) only for procedural sedation with direct provider supervision and verbal order. RASS goal (-)2 to (-)3. Start at 25 mcg, Dose not to exceed 50 mcg/dose, 250 mcg/hr, or 20 mcg/kg per case., EP (Intra-Procedure), Routine 08 (Given - Provid er: Carlos Portillo RN - Comment: incision)0849 (Given - Provider: Carlos Portillo RN)0900 (Given - Provider: Carlos Portillo RN - Comment: pocket manipulation by MD) lidocaine (XYLOCAINE) 10 mg/mL (1 %) injection 3 mg (COMPLETED) 3 mg (0.3 mL), Subcutaneous, ONCE PRN, 1 dose, Starting on Mon03/25/16 at 0725, Until Mon03/25/16 at 0840, for discomfort with PIV insertion, Day of Surgery (Day of Procedure), Routine 08 (Given - Provid er: Carlos Portillo RN) midazolam (PF) (VERSED) 1 mg/mL injection 0.5-1 mg (CANCELED) 0.5-1 mg, Intravenous, EVERY 5 MIN PRN, Starting on Mon03/25/16 at 0841, Until Mon03/25/16 at 0918, Anxiety, As needed to induce or maintain moderate sedation per [facility] Moderate Sedation Policy for the duration of the EP procedure., As needed to induce or maintain moderate sedation per [facility] Moderate Sedation Policy for the duration of the EP procedure. For use in the electrophysiology lab (EP lab) only for procedural sedation with direct provider supervision and verbal order. RASS goal (-)2 to (-)3. Dose not to exceed 1 mg per dose, 5mg/hour, or 0.2mg/kg per case., EP (Intra-Procedure), Routine 08 (Given - Provid er: Carlos Portillo RN)848 (Given - Provider: Carlos Portillo RN) sodium chloride 0.9 % flush 5-20 mL 5-20 mL, Intravenous, EVERY 1 MIN PRN, Starting on Mon03/25/16 at 0725, Until Mon03/25/16 at 1026, flush, Flush pertains to all indwelling lines. Flush per protocol found in the job aid using the link provided on this medication record., Day of Surgery (Day of Procedure), Routine documented in this encounter Care Teams Tree Surgeon Helper Relationship Specialty Start Date End Date Carlos Valdez MD [address] [place] [address] PCP - General 03/25/11 08/07/22 documented as of this encounter
--- OUTSIDE RECORDS SUMMARY | 2023-12-11 18:46 | XMS_ITS | Encounter Summary ---
[place] [address] Care Team Providers Care Liquefied Petroleum Gasfitter Name Role Phone Carlos Valdez MD Primary Care Provider [phone] Encounter Details Date Type Department Care Team (Late st Contact Info) Description 05/08/2015 External Results Cardiology at [address] [phone] Carlos Valdez MD [address] [place] [address] [id number] Social History Tobacco Use Types Packs/Day Years [...] AM EST Hospital Encounter Non-[place] [address] Arrived documented as of this encounter Procedures Procedure Name Priority Date/Time Associated Diagnosis Comments EP DEVICE SCAN Routine 05/05/2015 documented in this encounter Results * Scan Doc: EP Device (05/05/2015) Anatomical Region Laterality Modality Other Carlos Valdez MD MEDIA MGR SCAN EXT O RDR/RSLT documented in this encounter Visit Diagnoses Not on filedocumented in this encounter Care Teams Liquefied Petroleum Gasfitter Relationship Specialty Start Date End Date Carlos Valdez MD [address] [place] [address] PCP - General 03/25/11 08/07/22 documented as of this encounter
--- OUTSIDE RECORDS SUMMARY | 2023-12-11 18:46 | XMS_ITS | Encounter Summary ---
Author Organization [facility] [place] [address] Care Team Providers Care Motion Picture Film Examiner Name Role Phone Carlos Valdez MD Primary Care Provider [phone] Reason for Visit * Auth/Cert Specialty Diagnoses / Procedures Referred By Contac t Referred To Contact Diagnoses nicm/roman Procedures PRO ELECTROPHYS EV, R A-V PACE/REC, W/O INDUCT ELECTROPHYSIOLOGY PROCEDURE Referral ID Status Reason Start Date Expiration Date Visits Re quested Visits Authorized [id number] 1 1 Encounter Details Date Type Department Care Team (Late st Contact Info) Description 03/25/2016 8:30 AM EST - 03/25/2016 10:30 AM EST Surgery [place] [address] Lata Mcarthur MD [facility] [place] [address] ELECTROPHYSIOLOGY PROCEDURE Social History Tobacco Use Types [...] Jimmie Mccauley Patient Age: 70 y.o. Language: Turkish Race: White Ethnicity: Not nor Admit date: 03/25/2016 Discharge date and time: 03/25/2016 Attending Physician: Lata Mcarthur MD Discharge Physician: Blue This was a brief admission for elective replacement of a [employer] ALARM MECHANISM ADJUSTER-D ([place] Cluster Recall) The procedure was uncomplicated and [...] [employer] Model# 7122Q-58 cm Serial #[id number] Implanted 02/18/2013 Bipolar, steroid-tipped, active-fixation DF-4 lead Access: Axillary vein Location: Right ventricular apical septum (old) Atrial electrode: Medtronic, Model # 5568-52 cm Serial # [id number] Implanted 06/14/2012 Bipolar, steroid-tipped, active-fixation IS-1 lead Access: Not known Location Right atrium anterolateral Coronary sinus electrode: [employer] 1458Q/86 Serial number [id number] Implanted 02/18/2013 Quadripolar passive active fixation lead Access: Subclavian vein Location: Coronary sinus, posterolateral vein Pulse generator: [employer] [id number] Serial number [id number] Implanted 02/18/2013 ALARM MECHANISM ADJUSTER ICD Location: Subcutaneous Old ventricular lead : Medtronic 5075 Serial number [id number] (capped 02/18/2013) Old pulse generator: Medtronic ADDR01 Serial number [id number] (removed 02/18/2013) Detection and termination of ventricular [...] Trivial pleural effusion on chest x-ray Elevated HHC=525 a-->3.8 AN ESR=53 on index presentation --> [...] with left bundle branch block, PVCs, QRS sdryfzen=356 msec. Symptomatic CHB 06/13/12- s/p DDDR pacemaker [...] Carvedilol ROSY/ARB Yes Losartan Spironolactone no Previously [id number], d/c secondary to side effects (hives), no rechallenge Amlodipine Yes Initiated 05/30 [place] AFIB? no Anticoagulated AICD/Type ALARM MECHANISM ADJUSTER-D LBBB, EF dropped to 35%- 04/02/13 back up at ~ 50% post ALARM MECHANISM ADJUSTER NSR with LBBB, QRS= 170 ms CHB [...] use ??? LBBB (left bundle branch block) EZJ=988 ms New Symptomatic CHB 05/30-->declined pacer at [...] Dual Chamber Model # ADDR01, Serial number [id number] -[place], [place] ??? HX SUDDEN CARDIAC ARREST Probably bradycardic induced, presenting with symptomatic CHB, and requiring defibrillation 05/2012 Operations/Major Procedures: Operations: ALARM MECHANISM ADJUSTER-D pulse generator repacement Moderate sedation Vital Signs [...] Your Medications Continued medications, unchanged Dose Details ocoouli-iuzfhinzjmsct-odzvoejd 250-250-65 mg Tab Commonly known as: EXCEDRIN [...] Tablet Take 1 tablet by mouth daily. ykccmmh-kwuavncqeknhm-d affeine (EXCEDRIN MIGRAINE) 250-250-65 mg per tablet [...] - 03/25/2016 7:39 AM EST Jimmie Mccauley [id number] 03/25/2016 70 y.o. Cardiology History and Physical PCP: Carlos Valdez MD I performed a history and physical exam of the patient Admission Diagnosis: ALARM MECHANISM ADJUSTER-D - here for elective replacement for [employer] Battery '[facility] Cluster' Recall Date of Evaluation: 03/25/2016 Date [...] [employer] Model# 7122Q-58 cm Serial #[id number] Implanted 02/18/2013 Bipolar, steroid-tipped, active-fixation DF-4 lead Access: Axillary vein Location: Right ventricular apical septum (old) Atrial electrode: Medtronic, Model # 5568-52 cm Serial # [id number] Implanted 06/14/2012 Bipolar, steroid-tipped, active-fixation IS-1 lead Access: Not known Location Right atrium anterolateral Coronary sinus electrode: [employer] 1458Q/86 Serial number [id number] Implanted 02/18/2013 Quadripolar passive active fixation lead Access: Subclavian vein Location: Coronary sinus, posterolateral vein Pulse generator: [employer] [id number] Serial number [id number] Implanted 02/18/2013 ALARM MECHANISM ADJUSTER ICD Location: Subcutaneous Old ventricular lead : Medtronic 5075 Serial number [id number] (capped 02/18/2013) Old pulse generator: Medtronic ADDR01 Serial number [id number] (removed 02/18/2013) Detection and termination of ventricular [...] Trivial pleural effusion on chest x-ray Elevated OOU=713 a-->3.8 AN ESR=53 on index presentation --> [...] with left bundle branch block, PVCs, QRS ygzedsqw=869 msec. Symptomatic CHB 06/13/12- s/p DDDR pacemaker [...] Carvedilol ROSY/ARB Yes Losartan Spironolactone no Previously [id number], d/c secondary to side effects (hives), no rechallenge Amlodipine Yes Initiated 05/30 [place] AFIB? no Anticoagulated AICD/Type ALARM MECHANISM ADJUSTER-D LBBB, EF dropped to 35%- 04/02/13 back up at ~ 50% post ALARM MECHANISM ADJUSTER NSR with LBBB, QRS= 170 ms CHB [...] use ??? LBBB (left bundle branch block) GHQ=922 ms New Symptomatic CHB 05/30-->declined pacer at [...] Dual Chamber Model # ADDR01, Serial number [id number] -[place], [place] ??? HX SUDDEN CARDIAC ARREST Probably [...] mouth daily. 03/24/2016 at Unknown time ??? xtzqats-ncuqyhjvtqoec-hxiehcou (EXCEDRIN MIGRAINE) 250-250-65 mg per tablet Take [...] same day for pre-operative evaluation for a ALARM MECHANISM ADJUSTER-D pulse generator replacement for the '[place] Cluster' recall. From his most recent clinic visit (02/2016) '..70yo man with [employer] ALARM MECHANISM ADJUSTER-D now under advisory for potential sudden premature cell depletion. He originally had a pacemaker implanted on 06/14/2012 for CHB at [facility] in [place], [place]. He underwent upgrade to ALARM MECHANISM ADJUSTER-D on 02/18/2013 at [facility] for CHF, CM, ventricular dyssynchrony. He apparently developed a UTI around the time of the implant. He did not attend the recent device advisory meeting. [place] He [place] in [place] and the [facility] travelling about in his trailer...' NPO since [...] hour(s)). Assessment: 1. 70 y.o. man with ALARM MECHANISM ADJUSTER-D, '[place] Cluster' battery recall - here for elective [...] diagnosis, diagnostic and therapeutic treatment plan. LATA MCARTHUR MD 03/25/2016 documented in this encounter Nursing Notes * Calros Portillo, RN - 03/25/2016 9:33 AM EST Case cart needle count instrument Count correct and same before and after procedure documented in this encounter Plan of Treatment Upcoming Encounters Date Type Department Care Team (Late st Contact Info) Description 02/26/2024 10:00 AM EST Hospital Encounter Non-[place] [address] Arrived documented as of this encounter Procedures [...] 8:10 AM EST) Neutrophil % 57.5 % [facility] Neutrophil Absolute 4.55 1.70 - 6.10 x10(3)/[facility] Lymph % 30.7 % [facility] Lymphocytes Abs 2.4 0.9 - 3.2 x10(3)/[facility] Monocyte % 8.2 % [facility] Monocyte Abs 0.6 0.3 - 0.9 x10(3)/[facility] Eos % 3.0 % [facility] Eosinophils Abs 0.2 0.0 - 0.4 x10(3)/[facility] Basophil % 0.6 % [facility] Baso Absolute 0.0 0.0 - 0.1 x10(3)/[facility] Immature Gran % 0.00 % [facility] Comment: Immature granulocytes(IG's)percentage and absolute count will include metamyelocytes, myelocytes, and promyelocytes. Blood smears from CBCs yielding IG's will be scanned manually for concordance. If this scan disagrees with the automated IG or if promyelocytes are noted, a manual differential will be performed. Immature Gran Absolute 0.00 0.00 - 0.04 x10(3)/[facility] Blood specimen (specimen) 03/25/2016 8:10 AM EST 03/25/2016 8:20 AM EST Narrative Resulting Agency Comment Spec In Lab Luis Ward MD HEMATOLOGY ORDERABL ES [facility] [place] [address] * Hemogram (03/25/2016 8:10 AM EST) White Blood Cell 7.9 4.0 - 9.5 x10(3)/[facility] Red Blood Cell 5.17 4.58 - 5.54 x10(6)/[facility] Hemoglobin 15.2 13.7 - 16.5 gm/dL [facility] Hematocrit 44.2 40.5 - 48.5 % [facility] Mean Cell Volume 85.5 82.9 - 93.1 fL [facility] Mean Cell Hemoglobin 29.4 27.5 - 32.1 pg [facility] Mean Cell Hemoglobin Concentration 34.4 32.0 - 35.7 gm/dL [facility] Platelet 191 145 - 357 x10(3)/[facility] RDW Standard Deviation 37.7 36.0 - 45.0 fL [facility] RDW coefficient of variation 12.1 11.4 - 13.8 % [facility] Mean Platelet Volume 10.3 7.6 - 12.9 fL [facility] NRBC% auto 0.0 % [facility] NRBC Absolute 0.000 0.000 - 0.000 x10(3)/[facility] Blood specimen (specimen) 03/25/2016 8:10 AM EST 03/25/2016 8:20 AM EST Narrative Resulting Agency Comment Spec In Lab Luis Ward MD HEMATOLOGY ORDERABL ES [facility] [place] [address] * Prothrombin Time (03/25/2016 8:10 AM EST) Prothrombin Time 13.6 12.0 - 15.0 sec [facility] Comment: An INR <2.0 [...] International Normalization Ratio 1.0 0.9 - 1.1 [facility] Blood specimen (specimen) 03/25/2016 8:10 AM EST 03/25/2016 8:20 AM EST Narrative Resulting Agency Comment Spec In Lab Luis Ward MD HEMATOLOGY ORDERABL ES [facility] [place] [address] * (ABNORMAL) BMP w/fasting Glucose (03/25/2016 8:10 AM EST) Glucose Fasting 100(H) 65 - 99 mg/dL [facility] Comment: ?Fasting* Glucose Interpretive [...] of Diabetes Mellitus, Position Statement from the [place] [employer]. ??Diabetes Care, Volume 33, Supplement 1, Mar 2009 Blood Urea Nitrogen 19 10 - 20 mg/dL [facility] Creatinine 0.88 0.80 - 1.50 mg/dL [facility] Comment: Please note that the pediatric reference intervals supplied above were not validated at [facility]. Results from pediatric patients should be interpreted in conjunction to the patient's age, height and muscle mass. Sodium 142 135 - 145 mmol/L [facility] Potassium 4.4 3.5 - 5.0 mmol/L [facility] Comment: Please note: ??Patients with WBC >100,000 may have falsely elevated Potassium levels. ??For accurate Potassium quantification in these patients send serum separator tube (gold top) for subsequent determinations. ??Contact the Clinical Chemistry Laboratory if there are any questions. Chloride 104 98 - 107 mmol/L [facility] Carbon Dioxide 25 22 - 31 mmol/L [facility] Anion Gap 13 5 - 15 mmol/L [facility] Calcium 9.0 8.5 - 10.5 mg/dL [facility] Est Glomerular Filtration Rate >60 >=60 [facility] Comment: This estimated GFR [...] the following links into your internet browser. [email or web address] Blood specimen (specimen) 03/25/2016 8:10 AM EST 03/25/2016 8:20 AM EST Narrative Resulting Agency Comment Spec In Lab Luis Ward MD CHEMISTRY ORDERABLE S Performing Organization Address City/[facility] Co de Phone Number [facility] [place] [address] * EKG 12 Lead (03/25/2016 7:45 AM EST) Ventricular rate 60 BPM MUSE SYSTEM Atrial Rate 60 BPM MUSE SYSTEM P-R Interval 200 ms MUSE SYSTEM QRS Duration 98 ms MUSE SYSTEM Q-T Interval 448 ms MUSE SYSTEM QTC Calculated (Bezet) 448 ms MUSE SYSTEM Calculated P [place] -10 degrees MUSE SYSTEM Calculated R [place] -56 degrees MUSE SYSTEM Calculated T [place] 21 degrees MUSE SYSTEM INTERPRETATION Dual Chamber Pacemaker with atrial and ventricular paced rhythm * ACUTE [place] ?? Abnormal ECG When compared with ECG of 10-DEC-2014 14:41, No significant change was found Confirmed by MD REGAN, CARMELA ([id number]) on 03/25/2016 2:05:53 PM MUSE SYSTEM 03/25/2016 7:45 AM EST 03/25/2016 2:05 PM EST Luis Ward MD ECG ORDERABLES Performing Organization Address City/[facility] Co de Phone Number MUSE SYSTEM documented in this encounter Visit Diagnoses Diagnosis Cardiomyopathy Other primary cardiomyopathies Cardiomyopathy Other primary cardiomyopathies documented in this [...] to induce or maintain moderate sedation per [facility] Moderate Sedation Policy for the duration of the EP procedure., As needed to induce or maintain moderate sedation per [facility] Moderate Sedation Policy for the duration of [...] to induce or maintain moderate sedation per [facility] Moderate Sedation Policy for the duration of the EP procedure., As needed to induce or maintain moderate sedation per [facility] Moderate Sedation Policy for the duration of [...] to induce or maintain moderate sedation per [facility] Moderate Sedation Policy for the duration of the EP procedure., As needed to induce or maintain moderate sedation per [facility] Moderate Sedation Policy for the duration of [...] to induce or maintain moderate sedation per [facility] Moderate Sedation Policy for the duration of the EP procedure., As needed to induce or maintain moderate sedation per [facility] Moderate Sedation Policy for the duration of [...] Routine documented in this encounter Care Teams Motion Picture Film Examiner Relationship Specialty Start Date End Date Carlos Valdez MD [address] [place] [address] [address] [place] [address] PCP - General 03/25/11 08/07/22 documented as of this encounter
--- OUTSIDE RECORDS SUMMARY | 2023-12-11 18:46 | XMS_ITS | Encounter Summary ---
Author Organization [facility] Address [facility] [place] [address] Care Team Providers Care Operational Risk Manager Name Role Phone Carlos Valdez MD Primary Care Provider [phone] Reason for Visit * Reason Comments Pacemaker Problem Encounter Details Date Type Department Care Team ([facility] st Contact Info) Description 02/25/2016 3:00 PM EST Office Visit Cardiology at [address] [phone] Tino Laird PA [facility] [place] [address] ICD (implantable cardioverter-defibril lator) malfunction, initial encounter Social History Tobacco Use Types [...] Reading Time Taken Comments Blood Pressure 140/76 02/25/2016 2:32 PM EST Pulse 69 02/25/2016 2:32 PM EST Temperature - - Respiratory Rate - - Oxygen Saturation 97% 02/25/2016 2:32 PM EST on room air Inhaled Oxygen Concentration - - Weight 107.5 kg (237 lb) 02/25/2016 2:32 PM EST Height 195.6 cm (6' 5) 02/25/2016 2:32 PM EST Body Mass Index 28.1 02/25/2016 2:32 PM EST documented in this encounter Patient Instructions * Patient Instructions* Tino Laird PA - 02/25/2016 3:00 PM EST [facility] Same Day Surgery/Procedure Program Please follow these instructions exactly: DO NOT SMOKE AFTER MIDNIGHT prior to your procedure; no smoking is allowed in the hospital ALL patients must have a ride home after having anesthesia or sedation. We encourage you to have anadult with you for the remainder of the evening and night. Leave all valuables(money and jewelry) at home. Bring your eyeglasses and case if you need them to read. If you are hearing impaired please wear your hearing aid. Contact lenses cannot be worn in theoperating room. You will also be asked to remove your underwear. REMOVE all make-up including lipstick, rouge, eye shadow, fingernail mexican and toe nail mexican. NOTIFY YOUR HEALTH CARE PROVIDER if you develop any medical problems or a change in your condition prior to your procedure/surgery. Please bathe or shower before coming to the hospital to reduce the chance of infection. You will be called the day or Monday before your surgery/procedure between 3PM and 6PM with the correct time to report to the Same Day Department. If you do not have a phone or we will be unable to reach you, please call us after 4PM at Same Day Program SPECIAL INSTRUCTIONS: No solid food after midnight on the night prior to the procedure. ___take usual medications the morning of the procedure/surgery with just a sip of WATER(only) ___DO NOT TAKE THE FOLLOWING MEDICINES ON THE MORNING OF THE PROCEDURE/SURGERY ___Hibiclens antibacterial soap shower per information sheet DATE OF PROCEDURE: Arrive at: If you must cancel or reshedule the procedure please call: EP Scheduling documented in this encounter Progress Notes * Tino Laird PA - 02/25/2016 3:00 PM EST Subjective: Patient ID: Jimmie Mccauley is a 70 y.o. male. 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 He originally had a pacemaker implanted on 06/14/2012 for CHB at [facility] in [place], [place]. He underwent upgrade to GUN PERFORATOR LOADER-D on 02/18/2013 at [facility] for CHF, CM, ventricular dyssynchrony. He apparently developed a UTI around the time of the implant. He did not attend the recent device advisory meeting. [place] He [place] in [place] and the [facility] travelling about in his trailer. ?? Patient Active Problem List Diagnosis Code ??? Non-ischemic cardiomyopathy I42.9 ??? Heart failure chronic systolic dysfunction I50.9 ??? Alcohol use Z78.9 ??? LBBB (left bundle branch block) I44.7 ??? Complete heart block I44.2 ??? HX SUDDEN CARDIAC ARREST ??? Pericarditis I31.9 ??? Pulmonary embolism I26.99 ??? 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 R07.9 ??? Biventricular implantable cardioverter-defibrillator in situ Z95.810 ??? ICD (implantable cardioverter-defibrillator) malfunction - St Andrew T82.9XXA Review of Systems Constitutional: Negative for diaphoresis, fatigue and fever. Respiratory: Negative for chest tightness and shortness of breath. Cardiovascular: Negative for chest pain, palpitations and leg swelling. Gastrointestinal: Negative for diarrhea, nausea and vomiting. Genitourinary: Negative for dysuria, frequency and hematuria. Neurological: Negative for syncope and light-headedness. Social History Substance Use Topics ??? Smoking status: Former Smoker Types: Cigarettes Quit date: 01/12/1996 ??? Smokeless tobacco: Never Used Comment: stopped 15 years ??? Alcohol use 0.5 oz/week 1 drink(s) per week Comment: 1 drink a day Current Outpatient Prescriptions Medication Sig Dispense Refill ??? carvedilol (COREG) 6.25 mg Tablet Take 1 tablet by mouth 2 times daily (with meals). 180 tablet3 ??? multivitamin (THERAGRAN) Tablet Take 1 tablet by mouth daily. ??? losartan (COZAAR) 50 mg Tablet take 1 tablet by mouth once daily 30 tablet 11 ??? pravastatin (PRAVACHOL) 10 mg Tablet Take 10 mg by mouth daily. ??? fbgsvhq-ohynygzulfbjo-swfretdk (EXCEDRIN MIGRAINE) 250-250-65 mg per tablet Take [...] tablet by mouth nightly. 30 tablet 0 Objective: Physical Exam Constitutional: He is oriented to person, place, and time. No distress. Neck: No JVD present. Cardiovascular: Normal rate, regular rhythm and normal heart sounds. Pulmonary/Chest: Effort normal. Well healed left sided implant site Musculoskeletal: Normal range of motion. He exhibits no edema. Neurological: He is alert and oriented to person, place, and time. Skin: Skin is warm and dry. He is not diaphoretic. Nursing note and vitals reviewed. Device Data: New Ventricular electrode: [employer] Model# 7122Q-58 cm Serial #[id number] Implanted 02/18/2013 Bipolar, steroid-tipped, active-fixation DF-4 lead Access: Axillary vein Location: Right ventricular apical septum (old) Atrial electrode: [employer], Model # 5568-52 cm Serial # [id number] Implanted 06/14/2012 Bipolar, steroid-tipped, active-fixation IS-1 lead Access: Not known Location Right atrium anterolateral Coronary sinus electrode: [employer] 1458Q/86 Serial number [id number] Implanted 02/18/2013 Quadripolar passive active fixation lead Access: Subclavian vein Location: Coronary sinus, posterolateral vein Pulse generator: [employer] [id number] Serial number [id number] Implanted 02/18/2013 GUN PERFORATOR LOADER ICD Location: Subcutaneous Old ventricular lead : Medtronic 5075 Serial number [id number] (capped 02/18/2013) Old pulse generator: Medtronic ADDR01 Serial number [id number] (removed 02/18/2013) Detection and termination of ventricular tachyarrhythmias was performed with the ICD set to minimalsensitivity A T-Wave shock (4 S1 at 400 ms with a 310 ms delay and 1.2 Joule biphasic waveform) induced ventricular fibrillation that was successfully terminated with a 20 Joule shock (impedance 68 ohms). ?? Settings: Bi-V DDDR 70/130/130, PAV 200 ms, ROSAURA 150 ms, LV->RV 30 ms, mode switch 180 bpm ?? Underlying rhythm: SR 70-75 bpm with CHB ?? Heart rate histograms: Good distribution ?? Atrial lead impedance: 430 ohms RV lead impedance: 410 ohms LV lead impedance: 890 ohms M3-M2 RV shock impedance 73 ohms RV to Can Lead impedance trends stable P wave: 2.9mV R wave: None above 35 Atrial capture threshold: 1.0V @ 1.0 ms. Chronically elevated in former pacemaker as well. A Cap Confirm was NOT recommended RV capture threshold: 0.75 V at 0.5 ms. RV Cap Confirm recommended LV capture threshold: 1.75 V at 0.5 ms M3-M2. LV Cap Confirm recommended. Chronically elevated ?? Pacing percentages: AP 45%; BiVP >99% Mode switch episodes: 2; <1% VHR: None Histograms reasonably well distributed. CoreVue: ?? Battery: 22 uA, 48 %, est 2.3-2.8 years to MARY BETH Charge time: 9.8 sec 06/22/2015 ?? Chest x-ray: Ok day after implant ?? Assessment and Plan: 70yo man with [employer] GUN PERFORATOR LOADER-D device now under advisory for potential sudden device cell depletion. He is pacemaker dependent and reportedly required shocks in 2012 in [place] around the time of his original CHB event. His atrial and LV pacing thresholdsare elevated but stable. He reports feeling much improved in terms of function following upgrade to GUN PERFORATOR LOADER. We discussed the data related to [employer] Andrew early battery depletion and specific clinical implicationsfor him. He favors replacement of the device at the earliest opportunity. Plan left sided [employer] Andrew pulse generator replacement using moderate sedation strategy. He is pacemaker dependent and may require a temporary wire. He is not anticoagulated. [employer] Andrew Recall Pertinent Information Device Model: [employer] [id number] Serial number [id number] Underlying Rhythm: CHB without ready escape @ 35 Prior VT/VF: reported hx; no recent HV shocks [place]: working Vibratory alerts: ON Patient can feel vibratory alert: YES Replacement of device recommended: YES Indication for replacement: high risk patient; device under advisory; <1 yr to MARY BETH Benefits and risks of device replacement discussed, including but not limited to infection requiring explantation of all hardware, bleeding requiring blood transfusion, damage to any existing leads, hemothorax, pneumothorax requiring chest tube placement, vascular or myocardial damage/perforation requiring endovascular or surgical repair, tamponade, lead dislodgment, DVT requiring coumadin anticoagulation, device recall, post-device syncope and the possible need for an early surgical revision. The use of sedation and/or anesthesia was discussed, involving additional risks of respiratory depression, hypoxia, and hypotension. Pt advised that acute complications are avoided approx 95% of the time. Post-procedure limitations including activity restriction (arm lifting and movement, carrying) and driving restrictions were discussed with the patient. The patient's questions were answered and written consent was obtained. He will need to be scheduled. Information and Hibiclens issued. Written consent obtained and scanned to chart. Maday Jaramillo asked to facilitate procedural scheduling. Provider: POLA Jacobs Provider#: [id number] Consult attending physician: Erlinda Ward MD documented in this encounter H&P Notes * Tino Laird PA - 02/25/2016 3:00 PM EST See progress note. documented in this encounter Plan of Treatment Upcoming Encounters Date Type Department Care Team (Late st Contact Info) Description 02/26/2024 10:00 AM EST Hospital Encounter Non-[place] [address] Arrived documented as of this encounter Visit Diagnoses Diagnosis ICD (implantable cardioverter-defibrillator) malfunction, initial encounter documented in this encounter Care Teams Operational Risk Manager Relationship Specialty Start Date End Date Carlos Valdez MD [address] [place] [address] PCP - General 03/25/11 08/07/22 documented as of this encounter
--- OUTSIDE RECORDS SUMMARY | 2023-12-11 18:46 | XMS_ITS | Encounter Summary ---
[place] [address] Care Team Providers Care Die Engraving Supervisor Name Role Phone Carlos Valdez MD Primary Care Provider [phone] Encounter Details Date Type Department Care Team (Late st Contact Info) Description 05/05/2015 Orders Only Cardiology at [address] [phone] Social History Tobacco Use Types Packs/Day Years [...] AM EST Hospital Encounter Non-[place] [address] Arrived documented as of this encounter Procedures Procedure Name Priority Date/Time Associated Diagnosis Comments CARDIAC DEVICE CHECK - REMOTE SCHEDULED Routine 05/05/2015 4:54 AM EST documented in this encounter Results * Cardiac device check - Remote Scheduled (05/05/2015 4:54 AM EST) [facility] Implantable Pulse Generator Type Cardiac Resynchronization Therapy - Defibrillator [facility] Implantable Pulse Generator Model 3249-40 IDCO Implantable Pulse Generator Serial Number [id number] IDCO Implantable Pulse Generator Ergonomics Technician [employer] IDCO Implantable Pulse Generator Implant Date IDCO Implantable Pulse Generator Implanter N/A IDCO Implantable Pulse Generator Implanter Contact Information N/A IDCO Implantable Pulse Generator Implanting Facility N/A IDCO Implantable Lead Special Function Sense and Pace in RA IDCO Implantable Lead Model 5568 IDCO Implantable Lead Serial Number [id number] IDCO Implantable Lead Ergonomics Technician Medtronic IDCO Implantable Lead Implant Date IDCO Implantable Lead Polarity Type Bipolar Lead IDCO Implantable Lead Location Right Atrium IDCO Implantable Lead Connection Status Connected IDCO Implantable Lead Special Function Pace in LV IDCO Implantable Lead Model 1458Q Quartet(R) IDCO Implantable Lead Serial Number [id number] IDCO Implantable Lead Ergonomics Technician [facility] IDCO Implantable Lead Implant Date IDCO Implantable Lead Polarity Type Quadripolar Lead IDCO Implantable Lead Location Left Ventricle IDCO Implantable Lead Connection Status Connected IDCO Implantable Lead Special Function Defibrillation in RV IDCO Implantable Lead Model 7122Q Durata(R) IDCO Implantable Lead Serial Number [id number] IDCO Implantable Lead Ergonomics Technician [facility] [facility] IDCO Implantable Lead Implant Date IDCO Implantable Lead Polarity Type Bipolar Lead IDCO Implantable Lead Location Right Ventricle IDCO Implantable Lead Connection Status Connected IDCO Date Time Interrogation Session [id number] IDCO Type Interrogation Session Remote Scheduled IDCO Re-programmed During Session NO IDCO Date Time Previous Interrogation Session [id number] IDCO Clinician Name Gianfranco Ciaran IDCO Clinician Contact Information Phone: <[phone]> IDCO Clinic Name [facility] IDCO Battery Date Time of Measurements [id number] IDCO Battery Status Middle of Service IDCO Battery Voltage 2.93 V IDCO Battery Remaining Longevity 39 mo IDCO Battery Remaining Percentage 59.0 % IDCO Battery INTERNATIONAL BANK MANAGER Trigger When current voltage < 2.59 volts IDCO Capacitor Charge Type Reformation IDCO Capacitor Last Charge Date Time [id number] IDCO Capacitor Charge Time 9.6 s IDCO Capacitor Charge Energy 40 J IDCO Lead Channel Measurements Date and Time Start [id number] IDCO Lead Channel Measurements Date and Time End [id number] IDCO Lead Channel Sensing Intrinsic Amplitude 2.3 mV IDCO Lead Channel Sensing Polarity Bipolar IDCO Lead Channel Pacing Threshold Amplitude 1.25 V IDCO Lead Channel Pacing Threshold Pulse Width 1.0 ms IDCO Lead Channel Pacing Threshold Polarity Bipolar IDCO Lead Channel Pacing Threshold Measurement Method Setter Cold Rolling Machine Manual IDCO Lead Channel Impedance Value 360 Ohm IDCO Lead Channel Impedance Polarity Bipolar IDCO Lead Channel Status Null IDCO Lead Channel Measurements Date and Time Start [id number] IDCO Lead Channel Sensing Intrinsic Amplitude 12.0 [...] Lead Channel Measurements Date and Time End [id number] IDCO Lead Channel Measurements Date and Time Start [id number] IDCO Lead Channel Measurements Date and Time End [id number] IDCO Lead Channel Pacing Threshold Amplitude 1.75 [...] Lead High Voltage Channel Status Null IDCO STOCK PARTS INSPECTOR LV-RV Delay 30 ms IDCO Ventricular chambers paced during STOCK PARTS INSPECTOR pacing. BiV IDCO Magnet Response Normal [...] mV IDCO Lead Channel Setting Pacing Amplitude 3.0 V IDCO Lead Channel Setting Pacing Amplitude [...] Channel Setting Pacing Capture Mode Adaptive IDCO [facility]_SET_LEAD HVCHNL_SHOCK_VEC TOR_ANODE_LOCATI ON_1 Right Ventricle IDCO [facility]_IDC_SET_LEAD HVCHNL_SHOCK_VEC TOR_ANODE_ELECTR ODE_1 Coil IDCO [facility]_IDC_SET_LEAD HVCHNL_SHOCK_VEC TOR_CATHODE_LOCA TION_1 Other IDCO [facility]_IDC_SET_LEAD HVCHNL_SHOCK_VEC TOR_CATHODE_ELEC TRODE_1 Can IDCO Grabiel Setting [...] {shocks } IDCO Statistic Date Time Start [id number] IDCO Statistic Date Time End 91205090134712 IDCO Statistic Heart Rate Date Time End 53604022243670 IDCO Statistic Heart Rate Date Time Start [id number] IDCO Statistic Atrial Heart Rate Min 50 {beats} /min IDCO Statistic Atrial Heart Rate Mean 67 {beats} /min IDCO Statistic Atrial Heart Rate Max 330 {beats} /min IDCO Statistic Ventricular Heart Rate Min 50 {beats} /min IDCO Statistic Ventricular Heart Rate Mean 67 {beats} /min IDCO Statistic Ventricular Heart Rate Max 220 {beats} /min IDCO Grabiel Statistic Date Time End [id number] IDCO Grabiel Statistic Date Time Start [id number] IDCO Grabiel Statistic RA Percent Paced 45.0 % IDCO Grabiel Statistic AP SEASONAL CUSTOMER SERVICE ASSOCIATE Percent 45.0 % IDCO Grabiel Statistic SEASONAL CUSTOMER SERVICE ASSOCIATE Percent 54.0 % IDCO Grabiel Statistic AP VS Percent 1.0 % IDCO Grabiel Statistic VS Percent 1.0 % IDCO Atrial Tachy Statistic Date Time Start [id number] IDCO Atrial Tachy Statistic Date Time End [id number] IDCO Atrial Tachy Statistic Maximum Mode Switch Duration 10 s IDCO Atrial Tachy Statistic Percent Time In Mode Switch 1 % IDCO Atrial Tachy Statistic Number Of Mode Switches 2 {switch es} IDCO Atrial Tachy Statistic Number Of Mode Switches Per Day 0 {switch es} IDCO Atrial Tachy Statistic AT/AF [place] Percent 1 % IDCO STOCK PARTS INSPECTOR Statistic Date Time Start [id number] IDCO STOCK PARTS INSPECTOR Statistic Date Time End [id number] IDCO STOCK PARTS INSPECTOR Statistic STOCK PARTS INSPECTOR Percent Paced 99.0 % IDCO Therapy Statistic Recent Date Time End [id number] IDCO Therapy Statistic Recent Date Time Start [id number] IDCO Therapy Statistic Recent Shocks Delivered 0 {shocks } IDCO Therapy Statistic Recent Shocks Aborted 0 {shocks } IDCO Therapy Statistic Recent ATP Delivered 0 {seq} IDCO Episode Statistic Recent Date Time Start [id number] IDCO Episode Statistic Recent Date Time End [id number] IDCO Episode Identifier [id number] IDCO Episode Date Time [id number] IDCO Episode Detection And Therapy Details AMS IDCO Episode Duration 10 s IDCO Episode Vendor Type Category AMS IDCO Episode Type Category Other IDCO Episode Identifier [id number] IDCO Episode Date Time [id number] IDCO Episode Detection And Therapy Details AMS IDCO Episode Duration 6 s IDCO Episode Vendor Type Category AMS IDCO Episode Type Category Other IDCO Anatomical Region Laterality Modality Other 05/05/2015 4:54 AM EST Physician Cardiology IMPLANTABLE CARD IAC DEVICE documented in this encounter Visit Diagnoses Not on filedocumented in this encounter Care Teams Die Engraving Supervisor Relationship Specialty Start Date End Date Carlos Valdez MD [address] [place] [address] PCP - General 03/25/11 08/07/22 documented as of this encounter
--- OUTSIDE RECORDS SUMMARY | 2023-12-11 18:46 | XMS_ITS | Encounter Summary ---
Author Organization [facility] [place] [address] Care Team Providers Care Rubber Boots And Shoes Repairer Name Role Phone Carlos Valdez MD Primary Care Provider Encounter Details Date Type Department Care Team (Late st Contact Info) Description 10/20/2015 Orders Only Cardiology at [address] [phone] Sancho Glass MD [facility] [place] [address] Social History Tobacco Use Types Packs/Day Years [...] AM EST Hospital Encounter Non-[place] [address] Arrived documented as of this encounter Visit Diagnoses Not on filedocumented in this encounter Care Teams Rubber Boots And Shoes Repairer Relationship Specialty Start Date End Date Carlos Valdez MD [address] [address] PCP - General 03/25/11 08/07/22 documented as of this encounter
--- OUTSIDE RECORDS SUMMARY | 2023-12-11 18:46 | XMS_ITS | Encounter Summary ---
Author Organization [facility] [place] [address] Care Team Providers Care Globe Cleaner Name Role Phone Carlos Valdez MD Primary Care Provider [phone] Encounter Details Date Type Department Care Team (Late st Contact Info) Description 03/16/2016 Orders Only Cardiology at [address] [phone] Tino Laird PA [facility] [place] [address] Cardiomyopathy Social History Tobacco Use Types Packs/Day Years [...] AM EST Hospital Encounter Non-[place] [phone] Arrived documented as of this encounter Procedures Procedure Name Priority Date/Time Associated Diagnosis Comments ELECTROPHYSIOLOGY PROCEDURE Routine 03/25/2016 9:22 AM EST Cardiomyopathy documented in this encounter Results * ELECTROPHYSIOLOGY PROCEDURE (03/25/2016 9:22 AM EST) Anatomical Region Laterality Modality Other Narrative 03/25/2016 9:56 AM EST Cardiac Resynchronization Therapy ICD Pulse Generator replacement ([employer] '[place] Recall) Indication: 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 Procedure: The patient was brought to the Electrophysiology Lab in the fasting state and continuous electrocardiographic monitoring was instituted. Moderate sedation was administered with incremental doses of midazolam and fentanyl. ?? The left subclavicular fossa was prepped and draped in the usual sterile fashion and 2% lidocaine with 0.5% bupivicaine in a 2:3 mixture was instilled for local anesthesia and post operative analgesia. An incision was made over the old scar, and the dissection was carried down to the level of the old pocket using sharp and blunt dissection carefully avoiding the old leads that were identified fluoroscopically. The old pulse generator was removed, and the electrodes disconnected. ??The previously implanted electrodes were physically intact (where visible), although the suture sleeves were well adhered to the leads, the suture sleeves did not appear to be attached to the posterior wall of the pocket. There was no significant lead movement however. After testing for stable lead and pacing parameters (the atrial lead had a high capture threshold at baseline) the old leads were attached to a new pulse generator, after it had been flushed with maqonxvei-chreki-ekfbyhvraa solution. The pulse generator was not sutured to the underlying pectoralis major fascia as it was stable in the pocket. ?? Final Parameters: (Old) Ventricular electrode: ?? [employer] Model# 7122Q-58 cm Serial #[id number] Implanted 02/18/2013 ? Bipolar, steroid-tipped, active-fixation DF-4 lead ?? Access: ?Axillary vein ?? Location: ?? Right ventricular apical septum ?? R wave, PSA: ?none mV ?? Pacing threshold, ICD: 0.75 V at 0.4 ms ?? Impedance, ICD: ??390 ohms ?? RV coil Impedance ??68 ohms ?? (old) Atrial electrode: ?? [employer]onic, Model # 5568-52 cm Serial # [id number] Implanted 06/14/2012 ? Bipolar, steroid-tipped, active-fixation IS-1 lead ?? Access: ?Not known ?? Location ?Right atrium anterolateral ?? P wave, ICD: ?? 2.0 mV ?? Pacing threshold, ICD: 2.1 V at 1.0 ms (known high threshold) ?? (old) Coronary sinus electrode: [employer] 1458Q/86 Serial number [id number] Implanted 02/18/2013 ? Quadripolar passive active fixation lead ?? Access: ?Subclavian vein ?? Location: ?? Coronary sinus, posterolateral vein ?? R wave, PSA: ?paced ?? Pacing threshold, ICD: 1.25 V at 0.5 ms ?? Impedance, device: ??910 ohms ?? (Old) Pulse generator explanted: ?? [employer] [id number] Serial number [id number] Implanted 02/18/[address] [employer] [id number] Serial number [id number] Implanted 03/25/2016 ? POLICE AIDE ICD ? Location: ?? Subcutaneous ? Defibrillation threshold testing was not performed The wound was closed with interrupted stitches of 2-O Monocryl and the skin was closed with a subcuticular stitch of 4-0 Monocryl Plus. Cinefluoroscopy documented the final implant positions. Medical adhesive ( Dermabond ) was applied to the incision. The patient tolerated the procedure well. Antibiotic: 2gm cefazolin at 840 Incision: 0851 Total fluoroscopy time: < 1 minute Sedation Start 832, sedation end 0900 EBL 30 cc No drains in situ There were no fellows or residents involved in this case. Luis Ward MD EP PROCEDURE ORDERA BLES documented in this encounter Visit Diagnoses Diagnosis Cardiomyopathy Other primary cardiomyopathies Cardiomyopathy Other primary cardiomyopathies documented in this encounter Care Teams Globe Cleaner Relationship Specialty Start Date End Date Carlos Valdez MD [address] [place] [address] PCP - General 03/25/11 08/07/22 documented as of this encounter
--- OUTSIDE RECORDS SUMMARY | 2023-12-11 18:47 | XMS_ITS | Encounter Summary ---
Author Organization [facility] [place] [address] Care Team Providers Care Farm Consultant Name Role Phone Carlos Valdez MD Primary Care Provider [phone] Encounter Details Date Type Department Care Team (Latest Contact Info) Description 07/11/2013 1:29 PM EDT - 07/11/2013 11:59 PM EDT Hospital [place] [address] Brady Ugarte MD [facility] [place] [address] Other primary cardiomyopathies; Heart failure, unspecified Discharge Disposition: Home Social History Tobacco Use [...] Sig Dispensed Refills Start Date End Date zvevhok-pjnbclnfjdrts-yojb eine (EXCEDRIN MIGRAINE) 250-250-65 mg per tablet Take [...] tablet 0 01/11/2011 zolpidem (AMBIEN) 10 mg tabletIndications:Insomnia Take 1 tablet by mouth nightly. 30 tablet 0 01/11/2011 COREG CR 40 mg BY64Xbpzinrrrvq:Heart failure,Non-ischemic cardiomyopathy TAKE 1 CAPSULE (40MG) BY MOUTH DAILY 90 capsule 3 02/01/2013 01/30/2014 losartan (COZAAR) 50 mg tabletIndications:Other primary cardiomyopathies Take 1 tablet by mouth daily. 30 tablet 3 08/17/2012 08/19/2013 documented as of this encounter Plan of Treatment Upcoming Encounters Date Type Department Care Team (Late st Contact Info) Description 02/26/2024 10:00 AM EST Hospital Encounter Non-In[place] [address] Arrived documented as of this encounter Procedures Procedure Name Priority Date/Time Associated Diagnosis Comments PRO-BRAIN NATRIURETIC PEPTIDE STAT 07/11/2013 1:34 PM EDT Other primary cardiomyopathies Heart failure, unspecified BASIC METABOLIC PANEL STAT 07/11/2013 1:34 PM EDT Other primary cardiomyopathies Heart failure, unspecified documented in this encounter Results * Basic Metabolic Panel (non-fasting) (07/11/2013 1:34 PM EDT) [facility] Glucose 96 60 - 199 mg/dL CERNER MILLENNIUM Comment:Diabetes: >=200 mg/d L plus symptoms Blood Urea Nitrogen 19 10 - 20 mg/dL CERNER MILLENNIUM Creatinine 0.89 0.80 - 1.50 mg/dL CERNER MILLENNIUM Comment: Please note that the pediatric reference intervals supplied above were not validated at [facility]. Results from pediatric patients should be interpreted in conjunction to the patient's age, height and muscle mass. Sodium 138 135 - 145 mmol/L CERNER MILLENNIUM Potassium 4.1 3.5 - 5.0 mmol/L CERNER MILLENNIUM Comment: Please note: ??Patients with WBC >100,000 may have falsely elevated Potassium levels. ??For accurate Potassium quantification in these patients send serum separator tube (gold top) for subsequent determinations. ??Contact the Clinical Chemistry Laboratory if there are any questions. Chloride 102 98 - 107 mmol/L CERNER MILLENNIUM Carbon Dioxide 23 22 - 31 mmol/L CERNER MILLENNIUM Anion Gap 13 5 - 15 mmol/L CERNER MILLENNIUM Calcium 9.4 8.5 - 10.5 mg/dL CERNER MILLENNIUM Est Glomerular Filtration Rate [...] the following links into your internet browser. http://www.nkdep.nih.gov/lab-evaluation.shtml http://www.kidney.org/professionals/ Blood specimen (specimen) 07/11/2013 1:34 PM EDT 07/11/2013 1:51 PM EDT Narrative Resulting Agency Comment Spec In Lab Brady Ugarte MD CHEMISTRY ORDERABLES NELSON ONEILL * (ABNORMAL) pro-Brain Natriuretic Peptide (07/11/2013 1:34 PM EDT) NT-proBNP 233(H) <=125 pg/mL TASHANER MILLENNIUM Blood specimen (specimen) 07/11/2013 1:34 PM EDT 07/11/2013 1:51 PM EDT Narrative Resulting Agency Comment Spec In Lab Brady Ugarte MD CHEMISTRY ORDERABLES NELSON ONEILL documented in this encounter Visit Diagnoses Diagnosis Other primary cardiomyopathies Heart failure, unspecified documented in this encounter Care Teams Farm Consultant Relationship Specialty Start Date End Date Carlos Valdez MD [address] [place] [address] PCP - General 03/25/11 08/07/22 documented as of this encounter
--- OUTSIDE RECORDS SUMMARY | 2023-12-11 18:47 | XMS_ITS | Encounter Summary ---
Author Organization [facility] [place] [address] Care Team Providers Care Certified Surgical First Assistant Name Role Phone Carlos Valdez MD Primary Care Provider [phone] Encounter Details Date Type Department Care Team (Late st Contact Info) Description 11/03/2013 Notes Only Cardiology at [address] [phone] Dheeraj Herzog MD [facility] [place] [address] Social History Tobacco Use Types Packs/Day Years [...] Progress Notes * Dheeraj Herzog MD - 11/03/2013 1:09 PM EDT Cardiac Electrophysiology Cardiac Rhythm Device Upload This patient's ICD data (DATA WAREHOUSE ARCHITECT-D) was uploaded October 15, 2013. I have overread and reviewed the ICD interrogation data. Comments (interval data since July 12, 2013): Cell voltage and charge time acceptable Atrial Lead: Acceptable atrial lead capture threshold, sensing, and impedance Atrial pacing 84% Alert: Atrial noise reversion September 08, 2013; noise not obvious on the electrogram tracing, but not scaled well for print display. Atrial dysrhythmias detected: None Ventricular Lead: Acceptable ventricular lead capture threshold and impedance Ventricular Lead: Acceptable ventricular lead capture threshold, sensing, and impedances Ventricular pacing >99% Ventricular dysrhythmias detected: None Conclusion: Normal device function. Maximal ventricular pacing. No significant dysrhythmias. Brief episode withatrial noise reversion. __ Dheeraj Herzog MD documented in this encounter Plan of Treatment Upcoming Encounters Date Type Department Care Team (Late st Contact Info) Description 02/26/2024 10:00 AM [facility] Hospital Encounter Non-[place] [address] Arrived documented as of this encounter Visit Diagnoses Not on filedocumented in this encounter Care Teams Certified Surgical First Assistant Relationship Specialty Start Date End Date Carlos Valdez MD [address] [place] [address] PCP - General 03/25/11 08/07/22 documented as of this encounter
--- OUTSIDE RECORDS SUMMARY | 2023-12-11 18:47 | XMS_ITS | Encounter Summary ---
Author Organization [facility] [place] [address] Care Team Providers Care Production Supervisor Trainee Name Role Phone Carlos Valdez MD Primary Care Provider [phone] Reason for Visit * Reason Comments Medication Refill Encounter Details Date Type Department Care Team (Late st Contact Info) Description 01/30/2014 Refill Cardiology at [address] [phone] Brady Ugarte MD [facility] [place] [address] Medication Refill Social History Tobacco Use Types [...] AM EST Hospital Encounter Non-Invasive [place] [phone] Arrived documented as of this encounter Visit Diagnoses Not on filedocumented in this encounter Care Teams Production Supervisor Trainee Relationship Specialty Start Date End Date Carlos Valdez MD [address] [place] [address] PCP - General 03/25/11 08/07/22 documented as of this encounter
--- OUTSIDE RECORDS SUMMARY | 2023-12-11 18:47 | XMS_ITS | Encounter Summary ---
[place] [address] Care Team Providers Care Respiratory Equipment Assistant Name Role Phone Carlos Valdez MD Primary Care Provider [phone] Encounter Details Date Type Department Care Team (Latest Contact Info) Description 02/03/2014 11:46 AM EST - 02/03/2014 11:59 PM [facility] Hospital Encounter Non-[place]vasive [place] [phone] Other primary cardiomyopathies; Heart failure, unspecified Social History Tobacco Use Types Packs/Day Years [...] Sig Dispensed Refills Start Date End Date gghzgmk-lutqnsfphuzco-pti feine (EXCEDRIN MIGRAINE) 250-250-65 mg per tablet Take [...] tablet 0 01/11/2011 zolpidem (AMBIEN) 10 mg tabletIndications:Insomni a Take 1 tablet by mouth nightly. 30 tablet 0 01/11/2011 COREG CR 40 mg Cap, Multiphasic Release 24 hr TAKE 1 CAPSULE DAILY 90 capsule 1 01/30/2014 08/05/2014 losartan (COZAAR) 50 mg tabletIndications:Non-isc hemic cardiomyopathy take 1 tablet by mouth once daily 30 tablet 11 08/19/2013 08/12/2014 documented as of this encounter Plan of Treatment Upcoming Encounters Date Type Department Care Team (Late st Contact Info) Description 02/26/2024 10:00 AM EST Hospital Encounter Non-[place] [phone] Arrived documented as of this encounter Procedures Procedure Name Priority Date/Time Associated Diagnosis Comments ECHOCARDIOGRAM TRANSTHORACIC Routine 02/03/2014 1:14 PM EST Other primary cardiomyopathies Heart failure, unspecified documented in this encounter Results * Echocardiogram Transthoracic(Leb) (02/03/2014 1:14 PM EST) EF 50 HEARTLAB SYSTEM Anatomical Region Laterality Modality Other 02/03/2014 Narrative 02/03/2014 4:16 PM EST Procedure: ? Transthoracic Echocardiogram Patient: ? SADIEKIMBERLY Mancilla ?(Age): 1945(68) Med Rec#: ?[id number] ? Sex: ?M ? Site Loc: ?[facility] ? Ht / Wt: ??198.12(cm)/104. Pt. Loc: ? Echo Lab ? BSA: ?2.4 Study Date: ?02/03/2014 ? Pt. Type: Outpatient Tape: ? Referring: Brady Ugarte ([id number]) Search Developer: Rosita Basilio Diagnosis: ??Cardiomyopathy (425.4) CPT Code(s): ??Color Doppler (18925), ??Echo Full (57505), ??Spectral Doppler (05243), Indication(s): ??Congestive heart failure Rhythm: Paced rhythm HR ?BP ?156/82 ?? SUMMARY: 1. The left ventricular chamber size is normal. ??Mild concentric left ventricular hypertrophy is observed. ??The visually estimated left ventricular ejection fraction is 50-55%. ??There are no left ventricular segmental wall motion abnormalities. 2. The right ventricle is probably normal in size. ??Right ventricular global systolic function is normal. ??A pacemaker wire is visualized in the right ventricle. 3. The left atrium is moderately dilated (38 ml/m2 by volume index). 4. There is no hemodynamically significant valve disease. 5. See remainder of report for additional findings. FINDINGS: Left Ventricle ?The left ventricular chamber size is normal. ?Mild concentric left ventricular hypertrophy is observed. ?There is no evidence of LVOT obstruction. ?There is normal global left ventricular systolic function. ??Ejection fraction is estimated to be 55%. ?The visually estimated left ventricular ejection fraction is 50-55%. ?There are no left ventricular segmental wall motion abnormalities. ?Doppler assessment is consistent with normal left sided filling pressure. Left Atrium ?The left atrium is moderately dilated. 38 ml/m2 by volume index. Right Ventricle ?The right ventricle is probably normal in size. ?A pacemaker wire is visualized in the right ventricle. ?Right ventricular global systolic function is normal. ?The estimated pulmonary artery systolic pressure is 22 mmHg. ?The estimated right atrial pressure is [...] regurgitation present. Tricuspid Valve ?The tricuspid valve is not well visualized. ?The tricuspid valve is probably normal. ?There is mild (1+/4+) tricuspid regurgitation present. Pulmonic Valve ?The pulmonic valve is not well visualized. Pericardium ?The pericardium appears normal and there is no evidence of a pericardial effusion. Aorta ?The aortic root is normal in size. ?There is mild dilatation of the ascending aorta. ?The ascending aorta dimension is 3.8 cm. ?The aortic arch was not well visualized. Pulmonary Artery ?The main pulmonary artery appears normal. Venous ?The inferior vena cava appears normal in size. ?There is a greater than 50% respiratory change in the inferior vena cava dimension. Misc ?Two-dimensional echo, spectral Doppler and color Doppler performed. Wall Motion: Segment Name ?Rest ? Base-Anteroseptal ?? Normal ? Base-Anterior ? Normal ? Base-Anterolateral ??Normal ? Base-Posterolateral Normal ? Base-Inferior ? Normal ? Base-Inferoseptal ?? Normal ? Mid-Anteroseptal ?Normal ? Mid-Anterior ?Normal ? Mid-Anterolateral ?? Normal ? Mid-Posterolateral ??Normal ? Mid-Inferior ?Normal ? Mid-Inferoseptal ?Normal ? [place]-Septal ? Normal ? [place]-Anterior ? Normal ? [place]-Lateral ?Normal ? [place]-Inferior ? Normal ? [place]-Tip ?Normal ? Chambers ?Value ?Units (Range) ? LV EF Est ? 55 ? % (55 to 80) ? IVSd 2D ? 1.3 ?cm ? LVIDd 2D ?5.1 ?cm ? PWd 2D ?1.2 ?cm ? LVIDs 2D ?4.4 ?cm ? LVFS 2D ? 14 ? % ? LA area ? 22 ? cm2 (<21) ? RA area ? 18 ? cm2 (<18) ? Ao root ? 3.6 ?cm (2.1 to 3.6) ? Asc Ao ?3.8 ?cm (2 to 3.5) ? Mitral Valve ?Value ?Units (Range) ? E peak ?0.44 ? m/sec ? E/A ratio ? 0.6 ?ratio ? MVDT ?173 ?msec ? E1 ?0.06 ? m/sec ? E/E1 ?7.3 ?ratio ? Tricuspid/Pulmonic Valves ?Value ?Units (Range) ? TR peak terrell ? 2.2 ?m/sec ? RAP ? 3 ?mmHg ? RVSP/PASP ? 22 ? mmHg ? This report has been electronically signed by: Rony Francisco MD ? 02/03/2014 16:16:14 Images reviewed and interpretation verified [facility] Cardiac Ultrasound Laboratory Procedure Note Rony Francisco MD - 02/03/2014 Procedure: Transthoracic Echocardiogram Patient: PORSCHE ROBERTS(Age): 1945(68) Med Rec#: [id number] Sex: M Site Loc: [facility] [place] Ht / Wt: 198.12(cm)/104. Pt. Loc: Echo Lab BSA: 2.4 Study Date: 02/03/2014 Pt. Type: Outpatient Tape: Referring: Brady Ugarte ([id number]) Search Developer: Rosita Basilio Diagnosis: Cardiomyopathy (425.4) CPT Code(s): Color Doppler (91763), Echo Full (48820), Spectral Doppler (50591), Indication(s): Congestive heart failure Rhythm: Paced rhythm HR BP 156/82 SUMMARY: [...] remainder of report for additional findings. FINDINGS: Left Ventricle The left ventricular chamber size is normal. Mild concentric left ventricular hypertrophy is observed. There is no evidence of LVOT obstruction. There is normal global left ventricular systolic function. Ejection fraction is estimated to be 55%. The visually estimated left ventricular ejection fraction is 50-55%. There are no left ventricular segmental wall motion abnormalities. Doppler assessment is consistent with normal left sided filling pressure. Left Atrium The left atrium is moderately dilated. 38 ml/m2 by volume index. Right Ventricle The right ventricle is probably normal in size. A pacemaker wire is visualized in the right ventricle. Right ventricular global systolic function is normal. The estimated pulmonary artery systolic pressure is 22 mmHg. The estimated right atrial pressure is [...] regurgitation present. Tricuspid Valve The tricuspid valve is not well visualized. The tricuspid valve is probably normal. There is mild (1+/4+) tricuspid regurgitation present. Pulmonic Valve The pulmonic valve is not well visualized. Pericardium The pericardium appears normal and there is no evidence of a pericardial effusion. Aorta The aortic root is normal in size. There is mild dilatation of the ascending aorta. The ascending aorta dimension is 3.8 cm. The aortic arch was not well visualized. Pulmonary Artery The main pulmonary artery appears normal. Venous The inferior vena cava appears normal in size. There is a greater than 50% respiratory change in the inferior vena cava dimension. [facility] Two-dimensional echo, spectral Doppler and color Doppler performed. Wall Motion: Segment Name Rest Base-Anteroseptal Normal Base-Anterior Normal Base-Anterolateral Normal Base-Posterolateral Normal Base-Inferior Normal Base-Inferoseptal Normal Mid-Anteroseptal Normal Mid-Anterior Normal Mid-Anterolateral Normal Mid-Posterolateral Normal Mid-Inferior Normal Mid-Inferoseptal Normal [place]-Septal Normal [place]-Anterior Normal [place]-Lateral Normal [place]-Inferior Normal [place]-Tip Normal Chambers Value Units (Range) LV EF Est 55 % (55 to 80) IVSd 2D 1.3 cm LVIDd 2D 5.1 cm PWd 2D 1.2 cm LVIDs 2D 4.4 cm LVFS 2D 14 % LA area 22 cm2 (<21) RA area 18 cm2 (<18) Ao root 3.6 cm (2.1 to 3.6) Asc Ao 3.8 cm (2 to 3.5) Mitral Valve Value Units (Range) E peak 0.44 m/sec E/A ratio 0.6 ratio MVDT 173 msec E1 0.06 m/sec E/E1 7.3 ratio Tricuspid/Pulmonic Valves Value Units (Range) TR peak terrell 2.2 m/sec RAP 3 mmHg RVSP/PASP 22 mmHg This report has been electronically signed by: Rony Francisco MD 02/03/2014 16:16:14 Images reviewed and interpretation verified [facility] Cardiac Ultrasound Laboratory Brady Ugarte MD ECHO ORDERABLES documented in this encounter Visit Diagnoses Diagnosis Other primary cardiomyopathies Heart failure, unspecified documented in this encounter Care Teams Respiratory Equipment Assistant Relationship Specialty Start Date End Date Carlos Valdez MD [address] [place] [address] PCP - General 03/25/11 08/07/22 documented as of this encounter
--- OUTSIDE RECORDS SUMMARY | 2023-12-11 18:47 | XMS_ITS | Encounter Summary ---
Author Organization Formerly [facility]ie [facility] [place] [address] Care Team Providers Care Television Engineering Teacher Name Role Phone Charli Jaramillo MD Primary Care Provider [phone] Reason for Visit * Reason Comments Cardiomyopathy pericarditis Congestive Heart Failure Encounter Details Date Type Department Care Team (Late st Contact Info) Description 08/07/2014 3:10 PM EDT Follow-Up Cardiology at [address] [id number] Ciaran Medel RN Kono, Alan T, MD [facility] [place] [address] Pericarditis; Other primary cardiomyopathies; Heart failure, unspecified; Pulmonary embolism; Non-ischemic cardiomyopathy; LBBB (left bundle branch block); Chronic systolic heart failure; Complete heart block; Biventricular implantable cardioverter-defibril lator in situ; Other chest pain Discharge Disposition: Home Social History Tobacco Use [...] Reading Time Taken Comments Blood Pressure 140/76 08/07/2014 2:58 PM EDT Pulse 70 08/07/2014 2:58 PM EDT Temperature - - Respiratory Rate - - Oxygen Saturation 94% 08/07/2014 2:58 PM EDT Inhaled Oxygen Concentration - - Weight 108.9 kg (240 lb) 08/07/2014 2:58 PM EDT Height 195.6 cm (6' 5.01) 08/07/2014 2:58 PM ED T Body Mass Index 28.45 08/07/2014 2:58 PM EDT documented in this encounter Patient Instructions * Patient Instructions* Brady Ugarte MD - 08/07/2014 3:46 PM EDT Overall, you are doing very well from a cardiac standpoint. Your blood pressure and heart rate are stable. Laboratory work today demonstrates normal electrolytes, kidney function, and liver function tests. Your proBNP, marker for heart failure, remains low. The CRP, a marker for inflammation, also was low. The most recent echocardiogram in January 2014 demonstrated improvement in her cardiac function with medical and device therapy and upgrade to the current resynchronization pacemaker. Device interrogation today demonstrates normal pacer function, and your pacing approximately 99% ventricular paced rhythm which is normal. You indicate that you have noted some generalized fatigue. Medication changes: None There are patients who notice fatigue with the medications, in particular, the class of medications: Beta blockers a which carvedilol is in the class. We could potentially change this to an alternative beta makeda such as Toprol, or bisoprolol in the future to see if this improves your symptoms. Both are equally effective in helping with your heart condition. We can discuss this at your next visit. documented in this encounter Progress Notes * Brady Ugarte MD - 08/07/2014 6:46 AM EDT Images from the original note were not included. [facility] [place] [address] [address] CARDIOMYOPATHY/HEART FAILURE SERVICE OUTPATIENT CLINIC NOTE Jatinder Morrell 08/07/2014 Primary Care Provider: CHARLI JARAMILLO MD Referring Provider: Charli Jaramillo CHIEF COMPLAINT: Chief Complaint Patient presents with ??? Cardiomyopathy pericarditis ??? Congestive Heart Failure HISTORY OF PRESENT ILLNESS: Jatinder Morrell is a 69 y.o. patient seen in routine follow up in the [facility] Heart Failure [facility], and in the interim, the patient has continued to do well from [...] with medical and device therapy. He questions whetherhe needs to remain on his cardiac protective medications. He recently vacationed in [place] and had no major clinical events. He [...] Grewal: Last visit: 04/02 Feeling well post NUTRITION REPRESENTATIVE. Remains active and busy. Has occ fatigue, [...] EP and has been scheduled for elective NUTRITION REPRESENTATIVE- D upgrade with EF ~ 35 %and [...] he was asymptomatic. 2 weeks later, while [place], the patient felt weak, tired, with dizziness [...] available for my review. Since returning to [facility], thepatient actually feels well with no [...] this. There were no new medications or [id number]-sslsumi therapy initiated during this timeframe. On discharge, [...] Problem List Diagnosis Code ??? Non-ischemic cardiomyopathy 425.4 ??? Heart failure chronic systolic dysfunction 428.9 ??? Alcohol use V49.89 ??? LBBB (left bundle branch block) 426.3 ??? Complete heart block 426.0 ??? HX SUDDEN CARDIAC ARREST V12.53 ??? Pericarditis 423.9 ??? Pulmonary embolism 415.19 ??? 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 786.50 ??? Biventricular implantable cardioverter-defibrillator in situ V45.02 Patient Active Problem List Diagnosis ??? Biventricular implantable cardioverter-defibrillator in situ 02/19/2013 Cardiac Resynchronization Therapy ICD Upgrade (explant of pacemaker pulse generator), peripheral Subclavian Venography, Cinefluoroscopy, pacemaker pocket revision and defibrillation safety margin testing, under General anesthesia Indication: Cardiomopathy with congestive heart failure and ventricular dyssynchrony, ventricular pacing New Ventricular electrode: [employer] Model# 7122Q-58 cm Serial #[id number] Implanted 02/18/2013 Bipolar, steroid-tipped, active-fixation DF-4 lead Access: Axillary vein Location: Right ventricular apical septum (old) Atrial electrode: Medtronic, Model # 5568-52 cm Serial # [id number] Implanted 06/14/2012 Bipolar, steroid-tipped, active-fixation IS-1 lead Access: Not known Location Right atrium anterolateral Coronary sinus electrode: [employer] 1458Q/86 Serial number [id number] Implanted 02/18/2013 Quadripolar passive active fixation lead Access: Subclavian vein Location: Coronary sinus, posterolateral vein Pulse generator: [employer] [id number] Serial number [id number] Implanted 02/18/2013 NUTRITION REPRESENTATIVE ICD Location: Subcutaneous Old ventricular lead : Medtronic 5075 Serial number [id number] (capped 02/18/2013) Old pulse generator: Medtronic ADDR01 Serial number [id number] (removed 02/18/2013) Detection and termination of ventricular [...] Trivial pleural effusion on chest x-ray Elevated UXL=217 a-->3.8 AN ESR=53 on index presentation --> [...] effusion Echo 02/03/14 EF =50-55% No effusion d. Sinus rhythm with left bundle branch block, PVCs, QRS rmoxnabw=280 msec. Symptomatic CHB 06/13/12- s/p DDDR pacemaker [...] Carvedilol ROSY/ARB Yes Losartan Spironolactone no Previously [id number], d/c secondary to side effects (hives), no rechallenge Amlodipine Yes Initiated 05/30 LA AFIB? no Anticoagulated AICD/Type NUTRITION REPRESENTATIVE-D EF dropped to 35%- 04/02/13 back up at ~ 50% post NUTRITION REPRESENTATIVE NSR with LBBB, QRS= 170 ms CHB [...] use ??? LBBB (left bundle branch block) BXL=300 ms New Symptomatic CHB 05/30-->declined pacer at [...] Dual Chamber Model # ADDR01, Serial number [id number] -[place], [place] ??? HX SUDDEN CARDIAC ARREST Probably bradycardic induced, presenting with symptomatic CHB, and requiring defibrillation 05/2012 SOCIAL HISTORY: Reviewed and updated as appropriate in the medical record. The patient reports thathe quit smoking about 18 years ago. His smoking use included Cigarettes. [...] Outpatient Prescriptions Marked as Taking for the 08/07/14 encounter (Follow-Up) with Brady Ugarte MD Medication Sig Dispense Refill ??? COREG CR 40 mg Cap, Multiphasic Release 24 hr TAKE 1 CAPSULE DAILY 90 capsule 1 ??? pravastatin (PRAVACHOL) 10 mg Tablet Take 10 mg by mouth daily. ??? losartan (COZAAR) 50 mg tablet take 1 tablet by mouth once daily 30 tablet 11 ??? rqykktn-hmkvintarhwst-qtlggzfg (EXCEDRIN MIGRAINE) 250-250-65 mg per tablet Take [...] Signs: Wt Readings from Last 3 Encounters: 08/07/14 108.863 kg (240 lb) 08/07/14 108.863 kg (240 lb) 02/03/14 107.049 kg (236 lb) Temp Readings from Last 3 Encounters: 02/19/13 36.8 ??C (98.2 ??F) Oral 02/11/13 35.6 ??C (96 ??F) Temporal BP Readings from Last 3 Encounters: 08/07/14 140/76 08/07/14 140/76 02/03/14 122/82 Pulse Readings from Last 3 Encounters: 08/07/14 70 08/07/14 70 02/03/14 72 SpO2: [94 %] General -Alert, oriented, NAD. Affect good [...] Recent Results (from the past 72 hour(s)) COMPREHENSIVE METABOLIC PANEL (NON-FASTING) Result Value Ref Range Glucose Lvl 116 65 - 199 mg/dL BUN 16 10 - 20 mg/dL Creatinine 0.95 0.80 - 1.50 mg/dL Sodium 141 135 - 145 mmol/L Potassium 4.2 3.5 - 5.0 mmol/L Chloride 103 98 - 107 mmol/L CO2 25 22 - 31 mmol/L Anion Gap 13 5 - 15 mmol/L Calcium 9.4 8.5 - 10.5 mg/dL Total Protein 6.6 6.1 - 8.0 gm/dL Albumin 4.2 3.2 - 5.2 gm/dL AST 16 0 - 39 unit/L ALT 14 0 - 55 unit/L Alk Phos 49 40 - 120 unit/L Total Bilirubin 1.0 0.2 - 1.3 mg/dL Bili, Direct 0.2 0.0 - 0.3 mg/dL Estimated GFR >60 >=60 PRO-BRAIN NATRIURETIC PEPTIDE Result Value Ref Range ProBNP 191 (*) <=125 pg/mL SEDIMENTATION RATE Result Value Ref Range Sed Rate 4 0 - 15 mm/hr HIGH SENSITIVITY CRP Result Value Ref Range CRP High Sens 1.7 HEMOGRAM Result Value Ref Range WBC 9.4 4.0 - 10.0 x10(3)/mcL RBC 5.49 4.63 - 6.08 x10(6)/mcL Hemoglobin 16.2 13.7 - 17.5 gm/dL Hematocrit 46.5 40.0 - 51.0 % MCV 84.7 79.0 - 92.0 fL MCH 29.5 25.6 - 32.2 pg MCHC 34.8 32.0 - 36.5 gm/dL Platelets 197 145 - 370 x10(3)/mcL RDWSD 38.4 35.0 - 46.0 fL RDWCV 12.6 10.9 - 14.4 % MPV 11.2 9.0 - 12.0 fL DIFFERENTIAL, AUTOMATED Result Value Ref Range Neutrophils % 62.9 Neutr Abs (ANC) 5.92 1.50 - 6.30 x10(3)/mcL Lymphocytes % 27.9 Lymphocytes Abs 2.6 1.0 - 3.6 x10(3)/mcL Monocytes % 6.3 Monocyte Abs 0.6 0.2 - 1.0 x10(3)/mcL Eosinophils % 2.2 Eosinophils Abs 0.2 0.0 - 0.5 x10(3)/mcL Basophils % 0.5 Basophils Abs 0.0 0.0 - 0.2 x10(3)/mcL Immature Gran % 0.20 Elva Gran Abs 0.02 0.00 - 0.05 x10(3)/mcL NUCLEATED RED BLOOD CELLS Result Value Ref Range nRBC % Auto 0.0 nRBC Abs Auto 0.000 0.000 - 0.012 x10(3)/mcL PROBNP Date Value Ref Range Status 08/07/2014 191* <=125 pg/mL Final 02/03/2014 150* <=125 pg/mL Final 07/11/2013 233* <=125 pg/mL Final Results for JATINDER MORRELL ( ) as of 08/07/2014 19:03 Ref. Range 09/13/2012 08:33 10/16/2012 09:59 12/26/2012 15:41 04/02/2013 14:42 08/07/2014 13:50 Sed Rate Latest Range: 0-15 mm/hr 13 4 3 4 4 Results for JATINDER MORRELL ( ) as of 08/07/2014 19:03 Ref. [...] 60-90 beats per minute. PROBLEMS: Pulmonary embolism Stable, off coumadin Pericarditis No recurrent chestpain Non-ischemic cardiomyopathy Stable, improved LV function with medical and NUTRITION REPRESENTATIVE upgrade LBBB (left bundle branch block) S/p NUTRITION REPRESENTATIVE Heart failure chronic systolic dysfunction Well compensated and euvolemic Complete heart block S/p Pacer-->automobile club travel counselor-D Biventricular implantable cardioverter-defibrillator in situ No device issues- -TECHNICAL SUPPORT ASSOCIATE, 14%, AP-VS 86%, Normal pacer function 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? Rare chestpain, low hs CRP=1.7 ASSESSMENT: The patient has been stable and continues to do very well with clinical and laboratory improvement and resolution of his post pacer pericarditis. His overall LV systolic function improved remarkably with biventricular pacemaker as he was nearly 100% ventricular paced after his heart block and permanent pacemaker implant. He appears to be well compensated and euvolemic with good functional status.His major complaint is fatigue, which could be related to his medications although I recommended that we continue this for now, but an option could be to change his beta makeda to an alternative therapy. He previously did not tolerate spironolactone secondary to a rash, but he could potentially kedar candidate for eplerenone if his LV function deteriorates Prior discussion: He continues to do well [...] possible upgrade of his pacemaker to a NUTRITION REPRESENTATIVE-D. This could be related to his ventricular [...] effects to be aware of discussed. - ibuprofen PRN, patient informed to take medications with meals, an wean if stable - discontinue colchicine one tablet daily - will monitor off for now, may reinstitute if increase in symptoms - No Changes in cardiac medications, but may be a candidate for Eplerenone. if persistent LV systolic dysfunction he states that he was intolerant of this medication secondary to urticaria, although reviewing his [facility] chart, he was on spironolactone from 2001 for 2003, and it was discontinued somewhere between 2003- 2005. -If persistent fatigue, consider changing beta makeda to alternative beta makeda, from carvedilolto Toprol or bisoprolol 2. The following labs, referrals or other testing advised: - echocardiogram-done - Routine laboratories- on ROSY 3. COUNSELING: Specific issues or questions addressed on this visit: - As above - I cautioned him to limit his alcohol use - Reviewed his laboratories, EKG, and recent clinical course and echo images/findings, device interrogation findings - reviewed his short-term and long-term prognosis, NUTRITION REPRESENTATIVE -D implant, rationale for followup and need to continue current medical therapy - reviewed echocardiogram images personally 4. Cardiology follow-up scheduled for: - 6 Months or earlier as clinically indicated, Coordinate with EP cardiology and device interrogation - PCP and other subspecialists as previously arranged Brady Ugarte MD, [facility] windows security engineer Cardiology Director, Cardiovascular Critical Care Seat [employer], Advanced Heart Failure and Cardiomyopathy Program [facility] documented in this encounter Miscellaneous Notes * Assessment & Plan Note - Brady Ugarte MD - 08/07/2014 3:50 PM EDTAssociated Problem(s): 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? Rare chestpain, low hs CRP=1.7 * Assessment & Plan Note - Brady Ugarte MD - 08/07/2014 3:44 PM EDTAssociated Problem(s): Biventricular implantable cardioverter-defibrillator in situ- [employer] No device issues- -TECHNICAL SUPPORT ASSOCIATE, 14%, AP-VS 86%, Normal pacer function * Assessment & Plan Note - Brady Ugarte MD - 08/07/2014 3:42 PM EDTAssociated Problem(s): Complete heart block S/p Pacer-->automobile club travel counselor-D * Assessment & Plan Note - Brady Ugarte MD - 08/07/2014 3:42 PM EDTAssociated Problem(s): Heart failure chronic systolic dysfunction Well compensated and euvolemic * Assessment & Plan Note - Brady Ugarte MD - 08/07/2014 3:42 PM EDTAssociated Problem(s): LBBB (left bundle branch block) S/p NUTRITION REPRESENTATIVE * Assessment & Plan Note - Brady Ugarte MD - 08/07/2014 3:41 PM EDTAssociated Problem(s): Non-ischemic cardiomyopathy Stable, improved LV function with medical and NUTRITION REPRESENTATIVE upgrade * Assessment & Plan Note - Brady Ugarte MD - 08/07/2014 3:38 PM EDTAssociated Problem(s): Pericarditis No recurrent chestpain * Assessment & Plan Note - Brady Ugarte MD - 08/07/2014 3:38 PM EDTAssociated Problem(s): Pulmonary embolism Stable, off coumadin documented in this encounter Plan of Treatment Upcoming Encounters Date Type Department Care Team (Late st Contact Info) Description 02/26/2024 10:00 AM [facility] Encounter Non-[place] [address] Arrived documented as of this encounter Procedures Procedure Name Priority Date/Time Associated Diagnosis Comments NUCLEATED RED BLOOD CELLS STAT 08/07/2014 1:50 PM EDT HEMOGRAM STAT 08/07/2014 1:50 PM EDT Other primary cardiomyopathies Heart failure, unspecified DIFFERENTIAL, AUTOMATED STAT 08/07/2014 1:50 PM EDT Other primary cardiomyopathies Heart failure, unspecified SEDIMENTATION RATE Routine 08/07/2014 1: 50 PM EDT Pericarditis CBC (WITH DIFF) STAT 08/07/2014 1:50 PM EDT Other primary cardiomyopathies Heart failure, unspecified CRP, CARDIAC RISK (HS CRP) Routine 08/07/2014 1:50 PM EDT Pericarditis PRO-BRAIN NATRIURETIC PEPTIDE STAT 08/07/2014 1:50 PM EDT Other primary cardiomyopathies Heart failure, unspecified COMPREHENSIVE METABOLIC PANEL STAT 08/07/2014 1:50 PM EDT Other primary cardiomyopathies Heart failure, unspecified documented in this encounter Results * Nucleated Red Blood Cells (08/07/2014 1:50 PM EDT) NRBC% auto 0.0 % CERNER MILLENNIUM NRBC Absolute 0.000 0.000 - 0.012 x10(3)/mcL CERNER MILLENNIUM Blood specimen (specimen) 08/07/2014 1:50 PM EDT 08/07/2014 2:12 PM EDT Narrative Resulting Agency Comment Spec In Lab Brady Ugarte MD HEMATOLOGY ORDERABLE S CERNER MILLENNIUM * Differential, Automated (08/07/2014 1:50 PM EDT) Neutrophil % 62.9 % CERNER MILLENNIUM Neutrophil Absolute 5.92 1.50 - 6.30 x10(3)/mcL CERNER MILLENNIUM Lymph % 27.9 % CERNER MILLENNIUM Lymphocytes Abs 2.6 1.0 - 3.6 x10(3)/mcL CERNER MILLENNIUM Monocyte % 6.3 % CERNER MILLENNIUM Monocyte Abs 0.6 0.2 - 1.0 x10(3)/mcL CERNER MILLENNIUM Eos % 2.2 % CERNER MILLENNIUM Eosinophils Abs 0.2 0.0 - 0.5 x10(3)/mcL CERNER MILLENNIUM Basophil % 0.5 % CERNER MILLENNIUM Baso Absolute 0.0 0.0 - 0.2 x10(3)/mcL CERNER MILLENNIUM Immature Gran % 0.20 % CERN ER MILLENNIUM Comment: Immature granulocytes(IG's)percentage and absolute count will include metamyelocytes, myelocytes, and promyelocytes. Blood smears from CBCs yielding IG's will be scanned manually for concordance. If this scan disagrees with the automated IG or if promyelocytes are noted, a manual differential will be performed. Immature Gran Absolute 0.02 0.00 - 0.05 x10(3)/mcL CERNER MILLENNIUM Blood specimen (specimen) 08/07/2014 1:50 PM EDT 08/07/2014 2:12 PM EDT Narrative Resulting Agency Comment Spec In Lab Brady Ugarte MD HEMATOLOGY ORDERABLE S Performing Organization Address [facility]/[place] Co de Phone Number [facility] * Hemogram (08/07/2014 1:50 PM EDT) White Blood Cell 9.4 4.0 - 10.0 x10(3)/mcL CERNER MILLENNIUM Red Blood Cell 5.49 4.63 - 6.08 x10(6)/mcL CERNER MILLENNIUM Hemoglobin 16.2 13.7 - 17.5 gm/dL CERNER MILLENNIUM Hematocrit 46.5 40.0 - 51.0 % CERNER MILLENNIUM Mean Cell Volume 84.7 79.0 - 92.0 fL CERNER MILLENNIUM Mean Cell Hemoglobin 29.5 25.6 - 32.2 pg CERNER MILLENNIUM Mean Cell Hemoglobin Concentration 34.8 32.0 - 36.5 gm/dL CERNER MILLENNIUM Platelet 197 145 - 370 x10(3)/mcL CERNER MILLENNIUM RDW Standard Deviation 38.4 35.0 - 46.0 fL CERNER MILLENNIUM RDW coefficient of variation 12.6 10.9 - 14.4 % CERNER MILLENNIUM Mean Platelet Volume 11.2 9.0 - 12.0 fL CERNER MILLENNIUM Blood specimen (specimen) 08/07/2014 1:50 PM EDT 08/07/2014 2:12 PM EDT Narrative Resulting Agency Comment Spec In Lab Brady Ugarte MD HEMATOLOGY ORDERABLE S Performing Organization Address City/[facility]/ZIP Co de Phone Number [facility] * High Sensitivity CRP (08/07/2014 1:50 PM EDT) [facility] C-Reactive Protein High Sensitivity 1.7 mg/L [facility] Comment: Interpretations: 1) For accurate cardiac risk [...] and Cardiovascular Disease. ??Circulation 2003; 107:499-511 2. Ridker PM. ??Clinical applications of C-reactive protein for cardiovascular disease detection and prevention. ??Circulation 2003; 107:363-369 Blood specimen (specimen) 08/07/2014 1:50 PM EDT 08/07/2014 2:12 PM EDT Narrative Resulting Agency Comment Spec In Lab Brady Ugarte MD CHEMISTRY ORDERABLES Performing Organization Address [facility] Phone Number [facility] * Sedimentation rate (08/07/2014 1:50 PM EDT) [facility] Sedimentation Rate Automated 4 0 - 15 mm/hr [facility] Blood specimen (specimen) 08/07/2014 1:50 PM EDT 08/07/2014 2:12 PM EDT Narrative Resulting Agency Comment Spec In Lab Brady Ugarte MD HEMATOLOGY ORDERABLE S Performing Organization Address [facility] de Phone Number [facility] * (ABNORMAL) pro-Brain Natriuretic Peptide (08/07/2014 1:50 PM EDT) NT-proBNP 191(H) <=125 pg/mL CERNER MILLENNIUM Blood specimen (specimen) 08/07/2014 1:50 PM EDT 08/07/2014 2:12 PM EDT Narrative Resulting Agency Comment Spec In Lab Brady Ugarte MD CHEMISTRY ORDERABLES [facility] * Comprehensive metabolic panel (non-fasting) (08/07/2014 1:50 PM EDT) Glucose 116 65 - 199 mg/dL CERNER MILLENNIUM Comment:Diabetes: >=200 mg/d L plus symptoms Blood Urea Nitrogen 16 10 - 20 mg/dL CERNER MILLENNIUM Creatinine 0.95 0.80 - 1.50 mg/dL CERNER MILLENNIUM Comment: Please note that the pediatric reference intervals supplied above were not validated at [facility]. Results from pediatric patients should be interpreted in conjunction to the patient's age, height and muscle mass. Sodium 141 135 - 145 mmol/L CERNER MILLENNIUM Potassium 4.2 3.5 - 5.0 mmol/L CERNER MILLENNIUM Comment: Please note: ??Patients with WBC >100,000 may have falsely elevated Potassium levels. ??For accurate Potassium quantification in these patients send serum separator tube (gold top) for subsequent determinations. ??Contact the Clinical Chemistry Laboratory if there are any questions. Chloride 103 98 - 107 mmol/L CERNER MILLENNIUM Carbon Dioxide 25 22 - 31 mmol/L CERNER MILLENNIUM Anion Gap 13 5 - 15 mmol/L CERNER MILLENNIUM Calcium 9.4 8.5 - 10.5 mg/dL CERNER MILLENNIUM Protein, Total 6.6 6.1 - 8.0 gm/dL CERNER MILLENNIUM Albumin 4.2 3.2 - 5.2 gm/dL CERNER MILLENNIUM Aspartate Aminotransferase 16 0 - 39 unit/L CERNER MILLENNIUM Alanine Aminotransferase 14 0 - 55 unit/L CERNER MILLENNIUM Alkaline Phosphatase 49 40 - 120 unit/L CERNER MILLENNIUM Bilirubin, Total 1.0 0.2 - 1.3 mg/dL CERNER MILLENNIUM Bilirubin, Direct 0.2 0.0 - 0.3 mg/dL CERNER MILLENNIUM Est Glomerular Filtration Rate >60 >=60 [facility] NetworksFLAGSTA[facility] Comment: This estimated GFR (eGFR) value was [...] the following links into your internet browser. [email or web address] Blood specimen (specimen) 08/07/2014 1:50 PM EDT 08/07/2014 2:12 PM EDT Narrative Resulting Agency Comment Spec In Lab Brady Ugarte MD CHEMISTRY ORDERABLES [facility] documented in this encounter Visit Diagnoses Diagnosis Pericarditis Unspecified disease of pericardium Other primary cardiomyopathies Heart failure, unspecified Pulmonary embolism Other pulmonary embolism and infarction Non-ischemic cardiomyopathy Other primary cardiomyopathies LBBB (left bundle branch block) Other left bundle branch block Chronic systolic heart failure Complete heart block Atrioventricular block, complete Biventricular implantable cardioverter-defibrillator in situ Other chest pain documented in this encounter Care Teams Television Engineering Teacher Relationship Specialty Start Date End Date Charli Jaramillo MD [address] [place] [address] PCP - General 03/25/11 08/07/22 documented as of this encounter
--- OUTSIDE RECORDS SUMMARY | 2023-12-11 18:47 | XMS_ITS | Encounter Summary ---
[place] [address] Care Team Providers Care Button Breaker Name Role Phone Carlos Valdez MD Primary Care Provider [phone] Encounter Details Date Type Department Care Team (Late st Contact Info) Description 05/06/2014 Orders Only Cardiology at [address] [phone] Social History Tobacco Use Types Packs/Day Years [...] AM EST Hospital Encounter Non-[place] [address] Arrived documented as of this encounter Procedures Procedure Name Priority Date/Time Associated Diagnosis Comments CARDIAC DEVICE CHECK - REMOTE SCHEDULED Routine 05/06/2014 4:48 PM EST documented in this encounter Results * Cardiac device check - Remote Scheduled (05/06/2014 4:48 PM EST) [facility] Implant[facility] Pulse Generator Type Cardiac Resynchronization Therapy - Defibrillator IDCO Implantable Pulse Generator Model 3249-40 IDCO Implantable Pulse Generator Serial Number [id number] IDCO Implantable Pulse Generator Site Acquisition Specialist [facility] IDCO Implantable Pulse Generator Implant Date IDCO Implantable Pulse Generator Implanter N/A IDCO Implantable Pulse Generator Implanter Contact Information N/A IDCO Implantable Pulse Generator Implanting Facility N/A IDCO Implantable Lead Special Function Sense and Pace in RA IDCO Implantable Lead Model 5568 IDCO Implantable Lead Serial Number [id number] IDCO Implantable Lead Site Acquisition Specialist Medtronic IDCO Implantable Lead Implant Date IDCO Implantable Lead Polarity Type Bipolar Lead IDCO Implantable Lead Location Right Atrium IDCO Implantable Lead Connection Status Connected IDCO Implantable Lead Special Function Pace in LV IDCO Implantable Lead Model 1458Q Quartet(R) IDCO Implantable Lead Serial Number [id number] IDCO Implantable Lead Site Acquisition Specialist [facility] IDCO Implantable Lead Implant Date IDCO Implantable Lead Polarity Type Quadripolar Lead IDCO Implantable Lead Location Left Ventricle IDCO Implantable Lead Connection Status Connected IDCO Implantable Lead Special Function Defibrillation in RV IDCO Implantable Lead Model 7122Q Durata(R) IDCO Implantable Lead Serial Number [id number] IDCO Implantable Lead Site Acquisition Specialist [facility] IDCO Implantable Lead Implant Date IDCO Implantable Lead Polarity Type Bipolar Lead IDCO Implantable Lead Location Right Ventricle IDCO Implantable Lead Connection Status Connected IDCO Date Time Interrogation Session [id number] IDCO Type Interrogation Session Remote Scheduled IDCO Re-programmed During Session NO IDCO Date Time Previous Interrogation Session [id number] IDCO Clinician Name Medel Ciaran IDCO Clinician Contact Information Phone: <[phone]> IDCO Clinic Name [facility] IDCO Battery Date Time of Measurements [id number] IDCO Battery Status Middle of Service IDCO Battery Voltage 2.93 V IDCO Battery Remaining Longevity 41 mo IDCO Battery Remaining Percentage 74.0 % IDCO Battery DOBIE WORKER Trigger When current voltage < 2.59 volts IDCO Capacitor Charge Type Reformation IDCO Capacitor Last Charge Date Time [id number] IDCO Capacitor Charge Time 9.8 s IDCO Capacitor Charge Energy 40 J IDCO Lead Channel Measurements Date and Time Start [id number] IDCO Lead Channel Measurements Date and Time End [id number] IDCO Lead Channel Sensing Intrinsic Amplitude 2.3 mV IDCO Lead Channel Sensing Polarity Bipolar IDCO Lead Channel Pacing Threshold Amplitude 0.5 V IDCO Lead Channel Pacing Threshold Pulse Width 1.0 ms IDCO Lead Channel Pacing Threshold Polarity Bipolar IDCO Lead Channel Pacing Threshold Measurement Method Fur Trimmer Manual IDCO Lead Channel Impedance Value 400 Ohm IDCO Lead Channel Impedance Polarity Bipolar IDCO Lead Channel Status Null IDCO Lead Channel Measurements Date and Time Start [id number] IDCO Lead Channel Sensing Intrinsic Amplitude 6.5 mV IDCO Lead Channel Sensing Polarity Bipolar IDCO Lead Channel Pacing Threshold Amplitude 0.75 V IDCO Lead Channel Pacing Threshold Pulse Width 0.5 ms IDCO Lead Channel Pacing Threshold Polarity Bipolar IDCO Lead Channel Pacing Threshold Measurement Method Device Automatic IDCO Lead Channel Impedance Value 410 Ohm IDCO Lead Channel Impedance Polarity Bipolar IDCO Lead Channel Status Null IDCO Lead Channel Measurements Date and Time End [id number] IDCO Lead Channel Measurements Date and Time Start [id number] IDCO Lead Channel Measurements Date and Time End [id number] IDCO Lead Channel Pacing Threshold Amplitude 1.625 V IDCO Lead Channel Pacing Threshold Pulse Width 0.5 ms IDCO Lead Channel Pacing Threshold Polarity Bipolar IDCO Lead Channel Pacing Threshold Measurement Method Device Automatic IDCO Lead Channel Impedance Value 940 Ohm IDCO Lead Channel Impedance Polarity Bipolar IDCO Lead Channel Status Null IDCO Lead High Voltage Channel Measurement Type Shock IDCO Lead High Voltage Channel Date Time [id number] IDCO Lead High Voltage Channel Impedance 70 Ohm IDCO Lead High Voltage Channel Status Null IDCO Lead High Voltage Channel Measurement Type Low Voltage Pulse IDCO Lead High Voltage Channel Date Time [id number] IDCO Lead High Voltage Channel Impedance 70 Ohm IDCO Lead High Voltage Channel Status Null IDCO OEM SALES MANAGER LV-RV Delay 30 ms IDCO Ventricular chambers paced during OEM SALES MANAGER pacing. BiV IDCO Magnet Response Normal [...] MDC_IDC_SET_LEAD HVCHNL_SHOCK_VEC TOR_ANODE_LOCATI ON_1 Right Ventricle IDCO [facility]_SET_LEAD HVCHNL_SHOCK_VEC TOR_ANODE_ELECTR ODE_1 Coil IDCO [facility]ID[facility]_SET_LEAD HVCHNL_SHOCK_VEC TOR_CATHODE_LOCA TION_1 Other IDCO [facility]_ID[facility]_SET_LEAD HVCHNL_SHOCK_VEC TOR_CATHODE_ELEC TRODE_1 Can IDCO Grabiel Setting Mode (NBG Code) DDDR IDCO Grabiel Setting Mode (Vendor Specific) DDDR IDCO Grabiel Setting Lower Rate Limit 70 {beats} /min IDCO Grabiel Setting Maximum Tracking [...] {shocks } IDCO Statistic Date Time Start [id number] IDCO Statistic Date Time End [id number] IDCO Statistic Heart Rate Date Time End [id number] IDCO Statistic Heart Rate Date Time Start [id number] IDCO Statistic Atrial Heart Rate Min 50 {beats} /min IDCO Statistic Atrial Heart Rate Mean 77 {beats} /min IDCO Statistic Atrial Heart Rate Max 330 {beats} /min IDCO Statistic Ventricular Heart Rate Min 50 {beats} /min IDCO Statistic Ventricular Heart Rate Mean 77 {beats} /min IDCO Statistic Ventricular Heart Rate Max 240 {beats} /min IDCO Grabiel Statistic Date Time End [id number] IDCO Grabiel Statistic Date Time Start [id number] IDCO Grabiel Statistic RA Percent Paced 87.0 % IDCO Grabiel Statistic AP CORPORATE COMMUNICATIONS ASSOCIATE Percent 87.0 % IDCO Grabiel Statistic CORPORATE COMMUNICATIONS ASSOCIATE Percent 13.0 % IDCO Grabiel Statistic AP VS Percent 1.0 % IDCO Grabiel Statistic VS Percent 1.0 % IDCO Atrial Tachy Statistic Date Time Start [id number] IDCO Atrial Tachy Statistic Date Time End [id number] IDCO Atrial Tachy Statistic Maximum Mode Switch Duration 14 s IDCO Atrial Tachy Statistic Percent Time In Mode Switch 1 % IDCO Atrial Tachy Statistic Number Of Mode Switches 1 {switch es} IDCO Atrial Tachy Statistic Number Of Mode Switches Per Day 0 {switch es} IDCO Atrial Tachy Statistic AT/AF [place] Percent 1 % IDCO OEM SALES MANAGER Statistic Date Time Start [id number] IDCO OEM SALES MANAGER Statistic Date Time End [id number] IDCO OEM SALES MANAGER Statistic OEM SALES MANAGER Percent Paced 99.0 % IDCO Therapy Statistic Recent Date Time End [id number] IDCO Therapy Statistic Recent Date Time Start [id number] IDCO Therapy Statistic Recent Shocks Delivered 0 {shocks } IDCO Therapy Statistic Recent Shocks Aborted 0 {shocks } IDCO Therapy Statistic Recent ATP Delivered 0 {seq} IDCO Episode Statistic Recent Date Time Start [id number] IDCO Episode Statistic Recent Date Time End [id number] IDCO Episode Identifier [id number] IDCO Episode Date Time [id number] IDCO Episode Detection And Therapy Details AMS IDCO Episode Duration 14 s IDCO Episode Vendor Type Category AMS IDCO Episode Type Category Other IDCO Anatomical Region Laterality Modality Other 05/06/2014 4:48 PM EST Physician Cardiology IMPLANTABLE CARD IAC DEVICE documented in this encounter Visit Diagnoses Not on filedocumented in this encounter Care Teams Button Breaker Relationship Specialty Start Date End Date Carlos Valdez MD [address] [place] [address] PCP - General 03/25/11 08/07/22 documented as of this encounter
--- OUTSIDE RECORDS SUMMARY | 2023-12-11 18:47 | XMS_ITS | Encounter Summary ---
[place] [address] Care Team Providers Care Case Monitor Name Role Phone Carlos Valdez MD Primary Care Provider [phone] Encounter Details Date Type Department Care Team (Late st Contact Info) Description 05/20/2014 External Results Cardiology at [address] [phone] Carlos Valdez MD [address] [place] [address] [address] Social History Tobacco Use Types Packs/Day Years [...] AM EST Hospital Encounter Non-[place]vasive [place] [address] Arrived documented as of this encounter Procedures Procedure Name Priority Date/Time Associated Diagnosis Comments EP DEVICE SCAN Routine 05/06/2014 documented in this encounter Results * Scan Doc: EP Device (05/06/2014) Anatomical Region Laterality Modality Other Carlos Valdez MD MEDIA MGR SCAN EXT O RDR/RSLT documented in this encounter Visit Diagnoses Not on filedocumented in this encounter Care Teams Case Monitor Relationship Specialty Start Date End Date Carlos Valdez MD [address] [place] [address] PCP - General 03/25/11 08/07/22 documented as of this encounter
--- OUTSIDE RECORDS SUMMARY | 2023-12-11 18:47 | XMS_ITS | Encounter Summary ---
[place] [address] Care Team Providers Care Assembler Camper Name Role Phone Carlos Vladez MD Primary Care Provider [phone] Encounter Details Date Type Department Care Team (Late st Contact Info) Description 10/15/2013 Orders Only Cardiology at [address] [phone] Social History Tobacco Use Types Packs/Day Years [...] AM EST Hospital Encounter Non[place] [address] Arrived documented as of this encounter Procedures Procedure Name Priority Date/Time Associated Diagnosis Comments CARDIAC DEVICE CHECK - REMOTE SCHEDULED Routine 10/15/2013 4:36 AM EDT documented in this encounter Results * Cardiac device check - Remote Scheduled (10/15/2013 4:36 AM EDT) [facility] Implantable Pulse Generator Type Cardiac Resynchronization Therapy - Defibrillator [facility] Implantable Pulse Generator Model 3249-40 IDCO Implantable Pulse Generator Serial Number [id number] IDCO Implantable Pulse Generator Ditto Machine Operator [facility] IDCO Implantable Pulse Generator Implant Date IDCO Implantable Pulse Generator Implanter N/A IDCO Implantable Pulse Generator Implanter Contact Information N/A IDCO Implantable Pulse Generator Implanting Facility N/A IDCO Implantable Lead Special Function Sense and Pace in RA IDCO Implantable Lead Model 5568 IDCO Implantable Lead Serial Number [id number] IDCO Implantable Lead Ditto Machine Operator Medtronic IDCO Implantable Lead Implant Date IDCO Implantable Lead Polarity Type Bipolar Lead IDCO Implantable Lead Location Right Atrium IDCO Implantable Lead Connection Status Connected IDCO Implantable Lead Special Function Pace in LV IDCO Implantable Lead Model 1458Q Quartet(R) IDCO Implantable Lead Serial Number [id number] IDCO Implantable Lead Ditto Machine Operator [facility] IDCO Implantable Lead Implant Date IDCO Implantable Lead Polarity Type Quadripolar Lead IDCO Implantable Lead Location Left Ventricle IDCO Implantable Lead Connection Status Connected IDCO Implantable Lead Special Function Defibrillation in RV IDCO Implantable Lead Model 7122Q Durata(R) IDCO Implantable Lead Serial Number [id number] IDCO Implantable Lead Ditto Machine Operator [facility] IDCO Implantable Lead Implant Date IDCO Implantable Lead Polarity Type Bipolar Lead IDCO Implantable Lead Location Right Ventricle IDCO Implantable Lead Connection Status Connected IDCO Date Time Interrogation Session [id number] IDCO Type Interrogation Session Remote Scheduled IDCO Re-programmed During Session NO IDCO Date Time Previous Interrogation Session [id number] IDCO Clinician Name Ciaran Medel IDCO Clinician Contact Information Phone: <[phone]> IDCO Clinic Name [facility] IDCO Battery Date Time of Measurements [id number] IDCO Battery Status Middle of Service IDCO Battery Voltage 2.96 V IDCO Battery Remaining Longevity 44 mo IDCO Battery Remaining Percentage 83.0 % IDCO Battery JUDO INSTRUCTOR Trigger When current voltage < 2.59 volts IDCO Capacitor Charge Type Reformation IDCO Capacitor Last Charge Date Time [id number] IDCO Capacitor Charge Time 9.3 s IDCO Capacitor Charge Energy 40 J IDCO Lead Channel Measurements Date and Time Start [id number] IDCO Lead Channel Measurements Date and Time End [id number] IDCO Lead Channel Sensing Intrinsic Amplitude 1.9 mV IDCO Lead Channel Sensing Polarity Bipolar IDCO Lead Channel Pacing Threshold Amplitude 1.5 V IDCO Lead Channel Pacing Threshold Pulse Width 1.5 ms IDCO Lead Channel Pacing Threshold Polarity Bipolar IDCO Lead Channel Pacing Threshold Measurement Method Air Tool Operator Manual IDCO Lead Channel Impedance Value 380 Ohm IDCO Lead Channel Impedance Polarity Bipolar IDCO Lead Channel Status Null IDCO Lead Channel Measurements Date and Time Start [id number] IDCO Lead Channel Sensing Intrinsic Amplitude 9.0 mV IDCO Lead Channel Sensing Polarity Bipolar IDCO Lead Channel Pacing Threshold Amplitude 0.625 V IDCO Lead Channel Pacing Threshold Pulse Width 0.5 ms IDCO Lead Channel Pacing Threshold Polarity Bipolar IDCO Lead Channel Pacing Threshold Measurement Method Device Automatic IDCO Lead Channel Impedance Value 400 Ohm IDCO Lead Channel Impedance Polarity Bipolar IDCO Lead Channel Status Null IDCO Lead Channel Measurements Date and Time End [id number] IDCO Lead Channel Measurements Date and Time Start [id number] IDCO Lead Channel Measurements Date and Time End [id number] IDCO Lead Channel Pacing Threshold Amplitude 1.75 V IDCO Lead Channel Pacing Threshold Pulse Width 0.5 ms IDCO Lead Channel Pacing Threshold Polarity Bipolar IDCO Lead Channel Pacing Threshold Measurement Method Device Automatic IDCO Lead Channel Impedance Value 860 Ohm IDCO Lead Channel Impedance Polarity Bipolar [...] Lead High Voltage Channel Status Null IDCO EXPLORATION DRILLER LV-RV Delay 30 ms IDCO Ventricular chambers paced during EXPLORATION DRILLER pacing. BiV IDCO Magnet Response Normal IDCO [...] MDC_IDC_SET_LEAD HVCHNL_SHOCK_VEC TOR_ANODE_LOCATI ON_1 Right Ventricle IDCO [facility]SET_LEAD HVCHNL_SHOCK_VEC TOR_ANODE_ELECTR ODE_1 Coil IDCO [facility]IDC_SET_LEAD HVCHNL_SHOCK_VEC TOR_CATHODE_LOCA TION_1 Other IDCO [facility]IDC_SET_LEAD HVCHNL_SHOCK_VEC TOR_CATHODE_ELEC TRODE_1 Can IDCO Grabiel Setting [...] {shocks } IDCO Statistic Date Time Start [id number] IDCO Statistic Date Time End [id number] IDCO Statistic Heart Rate Date Time End [id number] IDCO Statistic Heart Rate Date Time Start [id number] IDCO Statistic Atrial Heart Rate Min 60 {beats} /min IDCO Statistic Atrial Heart Rate Mean 77 {beats} /min IDCO Statistic Atrial Heart Rate Max 330 {beats} /min IDCO Statistic Ventricular Heart Rate Min 50 {beats} /min IDCO Statistic Ventricular Heart Rate Mean 77 {beats} /min IDCO Statistic Ventricular Heart Rate Max 330 {beats} /min IDCO Grabiel Statistic Date Time End [id number] IDCO Grabiel Statistic Date Time Start [id number] IDCO Grabiel Statistic RA Percent Paced 84.0 % IDCO Grabiel Statistic AP MISSILE PAD MECHANIC Percent 84.0 % IDCO Grabiel Statistic MISSILE PAD MECHANIC Percent 15.0 % IDCO Grabiel Statistic AP VS Percent 1.0 % IDCO Grabiel Statistic VS Percent 1.0 % IDCO Atrial Tachy Statistic Date Time Start 57212309011307 IDCO Atrial Tachy Statistic Date Time End [id number] IDCO Atrial Tachy Statistic Percent Time In Mode Switch 0 % IDCO Atrial Tachy Statistic Number Of Mode Switches 0 {switch es} IDCO Atrial Tachy Statistic Number Of Mode Switches Per Day 0 {switch es} IDCO Atrial Tachy Statistic AT/AF [place] Percent 0 % IDCO EXPLORATION DRILLER Statistic Date Time Start [id number] IDCO EXPLORATION DRILLER Statistic Date Time End [id number] IDCO EXPLORATION DRILLER Statistic EXPLORATION DRILLER Percent Paced 99.0 % IDCO Therapy Statistic Recent Date Time End [id number] IDCO Therapy Statistic Recent Date Time Start [id number] IDCO Therapy Statistic Recent Shocks Delivered 0 {shocks } IDCO Therapy Statistic Recent Shocks Aborted 0 {shocks } IDCO Therapy Statistic Recent ATP Delivered 0 {seq} IDCO Episode Statistic Recent Date Time Start [id number] IDCO Episode Statistic Recent Date Time End [id number] IDCO Episode Identifier [id number] IDCO Episode Date Time [id number] IDCO Episode Detection And Therapy Details Noise Reversion IDCO Episode Vendor Type Category Noise Reversion IDCO Episode Type Category Other IDCO Anatomical Region Laterality Modality Other 10/15/2013 4:36 AM EDT Physician Cardiology MD IMPLANTABLE CARD IAC DEVICE documented in this encounter Visit Diagnoses Not on filedocumented in this encounter Care Teams Assembler Camper Relationship Specialty Start Date End Date Carlos Valdez MD [address] [place] [address] PCP - General 03/25/11 08/07/22 documented as of this encounter
--- OUTSIDE RECORDS SUMMARY | 2023-12-11 18:47 | XMS_ITS | Encounter Summary ---
[facility] [place] [address] Care Team Providers Care Director Of Special Events Name Role Phone Carlos Valdez MD Primary Care Provider [phone] Reason for Visit * Reason Comments Medication Refill Encounter Details Date Type Department Care Team (Late st Contact Info) Description 08/05/2014 Refill Cardiology at [address] [phone] Brady Ugarte MD [facility] [place] [address] Medication Refill Social History Tobacco Use Types [...] AM EST Hospital Encounter [place] [phone] Arrived documented as of this encounter Visit Diagnoses Not on filedocumented in this encounter Care Teams Director Of Special Events Relationship Specialty Start Date End Date Carlos Valdez MD [address] [place] [address] PCP - General 03/25/11 08/07/22 documented as of this encounter
--- OUTSIDE RECORDS SUMMARY | 2023-12-11 18:47 | XMS_ITS | Encounter Summary ---
[place] [address] Care Team Providers Care Pre Owned Sales Consultant Name Role Phone Charli Jaramillo MD Primary Care Provider [phone] Reason for Visit * Reason Comments Cardiomyopathy Encounter Details Date Type Department Care Team (Late st Contact Info) Description 08/07/2014 3:05 PM EDT Office Visit Cardiology at [address] [phone] Ciaran Medel RN Non-ischemic cardiomyopathy; Complete heart block Social History Tobacco Use [...] Time Taken Comments Blood Pressure 140/76 08/07/2014 2:52 PM EDT Pulse 70 08/07/2014 2:52 PM EDT Temperature - - Respiratory Rate - - Oxygen Saturation 94% 08/07/2014 2:52 PM EDT Inhaled Oxygen Concentration - - Weight 108.9 kg (240 lb) 08/07/2014 2:52 PM EDT Height 195.6 cm (6' 5) 08/07/2014 2:52 PM EDT Body Mass Index 28.46 08/07/2014 2:52 PM EDT documented in this encounter Progress Notes * Ciaran Medel RN - 08/07/2014 3:07 PM EDT Pacemaker Clinic Follow-Up Jimmie Mccauley is a 69 y.o. male who presents today in the device clinic for INCIDENT RESPONSE COORDINATOR- D interrogation. Heoriginally had a pacemaker implanted 06/14/2012 for CHB. This was done at [facility] in [place], [place]. He underwent upgrade to INCIDENT RESPONSE COORDINATOR-D on 02/18/2013 for CHF, CM, ventricular dyssynchrony. He is seeing Dr. Ugarte today as well. Gallery Director: Brady Ugarte MD PCP: CHARLI JARAMILLO MD Final Parameters: New Ventricular electrode: [facility] [employer] Model# 7122Q-58 cm Serial #[id number] Implanted 02/18/2013 Bipolar, steroid-tipped, active-fixation DF-4 lead Access: Axillary vein Location: Right ventricular apical septum R wave, PSA: 7.8 (paced) mV Pacing threshold, PSA: 0.7 V at 0.5 ms Pacing threshold, ICD: 0.75 V at 0.4 ms Impedance, PSA: 925 ohms Impedance, ICD: 940 ohms RV coil Impedance 68 ohms Pace the diaphragm at 10 V: No (old) Atrial electrode: [employer], Model # 5568-52 cm Serial # [id number] Implanted 06/14/2012 Bipolar, steroid-tipped, active-fixation IS-1 lead Access: Not known Location Right atrium anterolateral P wave, PSA: 1.4 mV P wave, ICD: 1.2 mV Pacing threshold, PSA: 1.25 V at 1.0 ms Pacing threshold, ICD: 1.25 V at 1.0 ms Impedance, PSA: 306 ohms at 5 V Coronary sinus electrode: [facility] [employer] 1458Q/86 Serial number [id number] Implanted 02/18/2013 Quadripolar passive active fixation lead Access: Subclavian vein Location: Coronary sinus, posterolateral vein R wave, PSA: 8.3 (paced) mV Pacing threshold, PSA: 0.8 V at 0.5 ms Pacing threshold, ICD: 0.75 V at 0.4 ms Impedance,PSA: 641 ohms Impedance, device: 760 ohms Pace the diaphragm/chest wall at 10 V: No Pulse generator: [facility] [employer] [id number] Serial number [id number] Implanted 02/18/2013 INCIDENT RESPONSE COORDINATOR ICD Location: Subcutaneous Old ventricular lead : Medtronic 5075 Serial number [id number] (capped 02/18/2013) Old pulse generator: Medtronic ADDR01 Serial number [id number] (removed 02/18/2013) Detection and termination of ventricular [...] lead impedance: 360 ohms RV lead impedance: 410 ohms LV lead impedance: 860 ohms M3-M2 RV shock impedance 64 ohms RV to Can Lead impedance trends stable P wave: 1.7 mV R wave: None Atrial capture threshold: 1 V @ 1.0 ms. Chronically elevated in former pacemaker as well. A Cap Confirm was NOT recommended RV capture threshold: 0.75 V at 0.5 ms. RV Cap Confirm recommended LV capture threshold: 1.625 V at 0.5 ms M3-M2. LV Cap Confirm recommended. Chronically elevated Pacing percentages: AP 86%; BENEFITS COUNSELOR >99% Mode switch episodes: None VHR: None Histograms reasonably well distributed. CoreVue: Elevated in June 2014 (8 days), Feb 2014 (7 days) Battery: 29 uA, 70%, est 3.1 years to MARY BETH Charge time: 9.8 sec 06/21/2014 Chest x-ray: Ok day after implant Incision assessment: No issues L chest I have reviewed the programming printouts. Assessment/plan: Normal device function, known elevated AP and LVP thresholds, no events. RTC 6 mos. [place] 3 mos. Reprogramming: None Tino Banuelos MD documented in this encounter Plan of Treatment Upcoming Encounters Date Type Department Care Team (Late st Contact Info) Description 02/26/2024 10:00 AM EST Hospital Encounter Non-[place] [address] Arrived documented as of this encounter Visit Diagnoses Diagnosis Non-ischemic cardiomyopathy Other primary cardiomyopathies Complete heart block Atrioventricular block, complete documented in this encounter Care Teams Pre Owned Sales Consultant Relationship Specialty Start Date End Date Charli Jaramillo MD [address] [place] [address] PCP - General 03/25/11 08/07/22 documented as of this encounter
--- OUTSIDE RECORDS SUMMARY | 2023-12-11 18:47 | XMS_ITS | Encounter Summary ---
Author [place] [address] Care Team Providers Care Cork Tipper Name Role Phone Charli Jaramillo MD Primary Care Provider [phone] Reason for Visit * Reason Comments Cardiomyopathy CONTOUR STITCHER-D check Encounter Details Date Type Department Care Team (Late st Contact Info) Description 07/11/2013 2:15 PM EDT Follow-Up Cardiology at [address] [address] Ciaran Medel RN Non-ischemic cardiomyopathy; LBBB (left bundle branch block); HX SUDDEN CARDIAC ARREST; Biventricular ICD (implantable cardiac defibrillator) in place Discharge Disposition: Home Social History Tobacco Use [...] Sign Reading Time Taken Comments Blood Pressure 130/76 07/11/2013 2:23 PM EDT Pulse 75 07/11/2013 2:23 PM EDT Temperature - - Respiratory Rate - - Oxygen Saturation 97% 07/11/2013 2:23 PM EDT Inhaled Oxygen Concentration - - Weight 108.9 kg (240 lb) 07/11/2013 2:23 PM EDT Height 200.7 cm (6' 7) 07/11/2013 2:23 PM EDT Body Mass Index 27.04 07/11/2013 2:23 PM EDT documented in this encounter Progress Notes * Ciaran Medel, RN - 07/11/2013 3:04 PM EDT Pacemaker Clinic Follow-Up Jimmie Mccauley is a 68 y.o. male who presents today in the device clinic for CONTOUR STITCHER- D interrogation. Heoriginally had a pacemaker implanted 06/14/2012 for CHB. This was done at [facility] in [place], [place]. He underwent upgrade to CONTOUR STITCHER-D on 02/18/2013 for CHF, CM, ventricular dyssynchrony. Utilization Review Specialist: Brady Ugarte MD PCP: CHARLI JARAMILLO MD Final Parameters: New Ventricular electrode: [employer] Model# 7122Q-58 cm Serial #[id number] Implanted 02/18/2013 Bipolar, steroid-tipped, active-fixation DF-4 lead Access: Axillary vein Location: Right ventricular apical septum R wave, PSA: 7.8 (paced) mV Pacing threshold, PSA: 0.7 V at 0.5 ms Pacing threshold, ICD: 0.75 V at 0.4 ms Impedance, PSA: 925 ohms Impedance, ICD: 940 ohms RV coil Impedance 68 ohms Pace the diaphragm at 10 V: No (old) Atrial electrode: dMetricstronic, Model # 5568-52 cm Serial # [id number] Implanted 06/14/2012 Bipolar, steroid-tipped, active-fixation IS-1 lead Access: Not known Location Right atrium anterolateral P wave, PSA: 1.4 mV P wave, ICD: 1.2 mV Pacing threshold, PSA: 1.25 V at 1.0 ms Pacing threshold, ICD: 1.25 V at 1.0 ms Impedance, PSA: 306 ohms at 5 V Coronary sinus electrode: [employer] 1458Q/86 Serial number [id number] Implanted 02/18/2013 Quadripolar passive active fixation lead Access: Subclavian vein Location: Coronary sinus, posterolateral vein R wave, PSA: 8.3 (paced) mV Pacing threshold, PSA: 0.8 V at 0.5 ms Pacing threshold, ICD: 0.75 V at 0.4 ms Impedance,PSA: 641 ohms Impedance, device: 760 ohms Pace the diaphragm/chest wall at 10 V: No Pulse generator: [employer] [id number] Serial number [id number] Implanted 02/18/2013 CONTOUR STITCHER ICD Location: Subcutaneous Old ventricular lead : Medtronic 5075 Serial number [id number] (capped 02/18/2013) Old pulse generator: Medtronic ADDR01 Serial number [id number] (removed 02/18/2013) Detection and termination of ventricular [...] lead impedance: 360 ohms RV lead impedance: 450 ohms LV lead impedance: 860 ohms M3-M2 RV shock impedance 68 ohms RV to Can Lead impedance trends stable P wave: 2.8 mV R wave: None Atrial capture threshold: 1.5 V @ 1.0 ms. No better at 1.5 ms. Chronically elevated in former pacemaker as well. A Cap Confirm was NOT recommended RV capture threshold: 0.5 V at 0.5 ms. RV Cap Confirm recommended LV capture threshold: 1.875 V at 0.5 ms M3-M2. LV Cap Confirm recommended Pacing percentages: AP 80%; PEDIATRIC DERMATOLOGIST >99% Mode switch episodes: None VHR: None Histograms reasonably well distributed. CoreVue: Enabled today Battery: 29 uA, 86%, est 4 years to MARY BETH Charge time: 9.3 sec 06/20/2013 Chest x-ray: Ok day after implant Incision assessment: No issues L chest Assessment/plan: Normal device function. RTC 6 mos. Linwood 3 mos. Reprogramming: Bi-V Cap Confirm enabled. Core Isaiah enabled. Atrial pacing output 3 V (1.0 ms) documented in this encounter Plan of Treatment Upcoming Encounters Date Type Department Care Team (Late st Contact Info) Description 02/26/2024 10:00 AM EST Hospital Encounter [place] [address] Arrived documented as of this encounter Visit Diagnoses Diagnosis Non-ischemic cardiomyopathy Other primary cardiomyopathies LBBB (left bundle branch block) Other left bundle branch block HX SUDDEN CARDIAC ARREST Biventricular ICD (implantable cardiac defibrillator) in place Automatic implantable cardiac defibrillator in situ documented in this encounter Care Teams Cork Tipper Relationship Specialty Start Date End Date Charli Jaramillo MD [address] [address] PCP - General 03/25/11 08/07/22 documented as of this encounter
--- OUTSIDE RECORDS SUMMARY | 2023-12-11 18:47 | XMS_ITS | Encounter Summary ---
Author [facility] [place] [address] Care Team Providers Care Veterinarian Poultry Name Role Phone Carlos Valdez MD Primary Care Provider [phone] Reason for Visit * Reason Comments Medication Refill Encounter Details Date Type Department Care Team (Late st Contact Info) Description 01/21/2015 Refill Cardiology at [address] [phone] Brady Ugarte MD [facility] [place] [address] Medication Refill Social History Tobacco Use Types [...] AM EST Hospital Encounter Non-[place] [phone] Arrived documented as of this encounter Visit Diagnoses Not on filedocumented in this encounter Care Teams Veterinarian Poultry Relationship Specialty Start Date End Date Carlos Valdez MD [address] [place] [address] PCP - General 03/25/11 08/07/22 documented as of this encounter
--- OUTSIDE RECORDS SUMMARY | 2023-12-11 18:47 | XMS_ITS | Encounter Summary ---
[place] [address] Care Team Providers Care Fabric Worker Leader Name Role Phone Carlos Valdez MD Primary Care Provider Encounter Details Date Type Department Care Team (Late st Contact Info) Description 11/18/2014 Orders Only Cardiology at [address] [phone] Social History Tobacco Use Types Packs/Day Years [...] AM EST Hospital Encounter [place] [address] Arrived documented as of this encounter Procedures Procedure Name Priority Date/Time Associated Diagnosis Comments CARDIAC DEVICE CHECK - REMOTE SCHEDULED Routine 11/18/2014 6:56 AM EDT documented in this encounter Results * Cardiac device check - Remote Scheduled (11/18/2014 6:56 AM EDT) [facility] Implantable Pulse Generator Type Cardiac Resynchronization Therapy - Defibrillator [facility] Implantable Pulse Generator Model 3249-40 [facility] Implantable Pulse Generator Serial Number [id number] IDCO Implantable Pulse Generator Core Loader [employer] IDCO Implantable Pulse Generator Implant Date [facility]CO Implantable Pulse Generator Implanter N/A [facility]CO Implantable Pulse Generator Implanter Contact Information N/A [facility] Implantable Pulse Generator Implanting Facility N/A IDCO Implantable Lead Special Function Sense and Pace in RA IDCO Implantable Lead Model 5568 [facility]CO Implantable Lead Serial Number [id number] IDCO Implantable Lead Core Loader Medtronic IDCO Implantable Lead Implant Date IDCO Implantable Lead Polarity Type Bipolar Lead IDCO Implantable Lead Location Right Atrium IDCO Implantable Lead Connection Status Connected IDCO Implantable Lead Special Function Pace in LV IDCO Implantable Lead Model 1458Q Quartet(R) IDCO Implantable Lead Serial Number [id number] IDCO Implantable Lead Core Loader [employer] IDCO Implantable Lead Implant Date IDCO Implantable Lead Polarity Type Quadripolar Lead IDCO Implantable Lead Location Left Ventricle IDCO Implantable Lead Connection Status Connected IDCO Implantable Lead Special Function Defibrillation in RV IDCO Implantable Lead Model 7122Q Durata(R) IDCO Implantable Lead Serial Number [id number] IDCO Implantable Lead Core Loader [employer] IDCO Implantable Lead Implant Date IDCO Implantable Lead Polarity Type Bipolar Lead IDCO Implantable Lead Location Right Ventricle IDCO Implantable Lead Connection Status Connected IDCO Date Time Interrogation Session [id number] IDCO Type Interrogation Session Remote Scheduled IDCO Re-programmed During Session NO IDCO Date Time Previous Interrogation Session [id number] IDCO Clinician Name Gianfranco Ciaran IDCO Clinician Contact Information Phone: <[phone]> IDCO Clinic Name [facility] IDCO Battery Date Time of Measurements [id number] IDCO Battery Status Middle of Service IDCO Battery Voltage 2.93 V IDCO Battery Remaining Longevity 34 mo IDCO Battery Remaining Percentage 65.0 % IDCO Battery PIVOT END POLISHER Trigger When current voltage < 2.59 volts IDCO Capacitor Charge Type Reformation IDCO Capacitor Last Charge Date Time [id number] IDCO Capacitor Charge Time 9.8 s IDCO Capacitor Charge Energy 40 J IDCO Lead Channel Measurements Date and Time Start [id number] IDCO Lead Channel Measurements Date and Time End [id number] IDCO Lead Channel Sensing Intrinsic Amplitude 1.0 mV IDCO Lead Channel Sensing Polarity Bipolar IDCO Lead Channel Pacing Threshold Amplitude 1.0 V IDCO Lead Channel Pacing Threshold Pulse Width 1.0 ms IDCO Lead Channel Pacing Threshold Polarity Bipolar IDCO Lead Channel Pacing Threshold Measurement Method Cloth Mender Manual IDCO Lead Channel Impedance Value 380 Ohm IDCO Lead Channel Impedance Polarity Bipolar IDCO Lead Channel Status Null IDCO Lead Channel Measurements Date and Time Start [id number] IDCO Lead Channel Sensing Intrinsic Amplitude 10.9 mV IDCO Lead Channel Sensing Polarity Bipolar [...] Lead Channel Measurements Date and Time End [id number] IDCO Lead Channel Measurements Date and Time Start [id number] IDCO Lead Channel Measurements Date and Time End [id number] IDCO Lead Channel Pacing Threshold Amplitude 1.5 V IDCO Lead Channel Pacing Threshold Pulse Width 0.5 ms IDCO Lead Channel Pacing Threshold Polarity Bipolar IDCO Lead Channel Pacing Threshold Measurement Method Device Automatic IDCO Lead Channel Impedance Value 840 Ohm IDCO Lead Channel Impedance Polarity Bipolar IDCO Lead Channel Status Null IDCO Lead High Voltage Channel Measurement Type Shock IDCO Lead High Voltage Channel Date Time [id number] IDCO Lead High Voltage Channel Impedance 72 Ohm IDCO Lead High Voltage Channel Status Null IDCO Lead High Voltage Channel Measurement Type Low Voltage Pulse IDCO Lead High Voltage Channel Date Time [id number] IDCO Lead High Voltage Channel Impedance 72 Ohm IDCO Lead High Voltage Channel Status Null IDCO HVAC RESIDENTIAL SERVICE TECHNICIAN LV-RV Delay 30 ms IDCO Ventricular chambers paced during HVAC RESIDENTIAL SERVICE TECHNICIAN pacing. BiV IDCO Magnet Response Normal IDCO [...] Channel Setting Pacing Capture Mode Adaptive IDCO [facility]_IDC_SET_LEAD HVCHNL_SHOCK_VEC TOR_ANODE_LOCATI ON_1 Right Ventricle IDCO [facility]_IDC_SET_LEAD HVCHNL_SHOCK_VEC TOR_ANODE_ELECTR ODE_1 Coil IDCO [facility]_IDC_SET_LEAD HVCHNL_SHOCK_VEC TOR_CATHODE_LOCA TION_1 Other IDCO [facility]_IDC_SET_LEAD HVCHNL_SHOCK_VEC TOR_CATHODE_ELEC TRODE_1 Can IDCO Grabiel Setting [...] /min IDCO Statistic Atrial Heart Rate Mean 76 {beats} /min IDCO Statistic Atrial Heart Rate Max 330 {beats} /min IDCO Statistic Ventricular Heart Rate Min 50 {beats} /min IDCO Statistic Ventricular Heart Rate Mean 76 {beats} /min IDCO Statistic Ventricular Heart Rate Max 240 {beats} /min IDCO Grabiel Statistic Date Time End IDCO Grabiel Statistic Date Time Start IDCO Grabiel Statistic RA Percent Paced 90.0 % IDCO Grabiel Statistic AP WELDER HELPER Percent 90.0 % IDCO Grabiel Statistic WELDER HELPER Percent 9.8 % IDCO Grabiel Statistic AP VS Percent [...] {switch es} IDCO Atrial Tachy Statistic AT/AF [place] Percent 1 % IDCO HVAC RESIDENTIAL SERVICE TECHNICIAN Statistic Date Time Start IDCO HVAC RESIDENTIAL SERVICE TECHNICIAN Statistic Date Time End IDCO HVAC RESIDENTIAL SERVICE TECHNICIAN Statistic HVAC RESIDENTIAL SERVICE TECHNICIAN Percent Paced 99.0 % IDCO Therapy Statistic Recent Date Time End IDCO Therapy Statistic Recent Date Time Start [id number] IDCO Therapy Statistic Recent Shocks Delivered 0 {shocks } IDCO Therapy Statistic Recent Shocks Aborted 0 {shocks } IDCO Therapy Statistic Recent ATP Delivered 0 {seq} IDCO Episode Statistic Recent Date Time Start [id number] IDCO Episode Statistic Recent Date Time End [id number] IDCO Episode Identifier [id number] IDCO Episode Date Time [id number] IDCO Episode Detection And Therapy Details AMS IDCO Episode Duration 10 s IDCO Episode Vendor Type Category AMS IDCO Episode Type Category Other IDCO Episode Identifier [id number] IDCO Episode Date Time [id number] IDCO Episode Detection And Therapy Details AMS IDCO Episode Duration 8 s IDCO Episode Vendor Type Category AMS IDCO Episode Type Category Other IDCO Anatomical Region Laterality Modality Other 11/18/2014 6:56 AM EDT Physician Cardiology IMPLANTABLE CARD IAC DEVICE documented in this encounter Visit Diagnoses Not on filedocumented in this encounter Care Teams Fabric Worker Leader Relationship Specialty Start Date End Date Carlos Valdez MD [address] [place] [address] PCP - General 03/25/11 08/07/22 documented as of this encounter
--- OUTSIDE RECORDS SUMMARY | 2023-12-11 18:47 | XMS_ITS | Encounter Summary ---
Author Organization [facility] [place] [address] Care Team Providers Care Metalizing Machine Operator Automatic Name Role Phone Charli Jaramillo MD Primary Care Provider [phone] Reason for Referral * Diagnostic X-Ray (Routine) - Closed Specialty Diagnoses / Procedures Referred By Theodora de la torre Referred To Contact Radiology Diagnoses AICD (automatic cardioverter/defibrillator) present Procedures XR Chest Routine PA & Lateral Kirit Khan, [facility] [place] [address] [facility] Rad Xray [address] [place] [address] [place] [address] Referral ID Status Reason Start Date Expiration Date Visits Re quested Visits Authorized [id number] Closed 12/10/2014 12/10/2015 1 1 Reason for Visit * Reason Comments Pacemaker Problem Atrial oversensing. Encounter Details Date Type Department Care Team (Late st Contact Info) Description 12/10/2014 2:40 PM EDT Follow-Up Cardiology at [address] [place] [address] Kirit Khan [facility] [place] [address] AICD (automatic cardioverter/defibril lator) present; Biventricular implantable cardioverter-defibril lator in situ Discharge Disposition: Home Social History Tobacco Use [...] Reading Time Taken Comments Blood Pressure 130/76 12/10/2014 2:31 PM EDT Pulse 70 12/10/2014 2:31 PM EDT Temperature - - Respiratory Rate - - Oxygen Saturation 96% 12/10/2014 2:31 PM EDT Inhaled Oxygen Concentration - - Weight 106.6 kg (235 lb) 12/10/2014 2:31 PM EDT Height - - Body Mass Index 27.86 08/07/2014 2:58 PM EDT documented in this encounter Progress Notes * Kirit Khan - 12/14/2014 10:26 AM EDT Jimmie Mccauley is a 69 y.o. male who presents today in the device clinic for HARVESTER OPERATOR- D interrogation dueto reported atrial oversensing on Linwood download. He originally had a pacemaker implanted 06/14/2012 for CHB. This was done at [facility] in [place], [place]. He underwent upgrade to HARVESTER OPERATOR-D on 02/18/2013 for CHF, CM, ventricular dyssynchrony. Patient has been unaware of any pacemaker issues and there was no atrial noise or oversensing noted with maneuvers. Case discussed with today. Telecommunications Officer: Brady Ugarte MD PCP: CHARLI JARAMILLO MD Final Parameters: New Ventricular electrode: [employer] Model# 7122Q-58 cm Serial #[id number] Implanted 02/18/2013 ?? Bipolar, steroid-tipped, active-fixation DF-4 lead ?? Access: Axillary vein ?? Location: Right ventricular apical septum ?? R wave, PSA: 7.8 (paced) mV ?? Pacing threshold, PSA: 0.7 V at 0.5 ms ?? Pacing threshold, ICD: 0.75 V at 0.4 ms ?? Impedance, PSA: 925 ohms ?? Impedance, ICD: 940 ohms ?? RV coil Impedance 68 ohms ?? Pace the diaphragm at 10 V: No (old) Atrial electrode: Medtronic, Model # 5568-52 cm Serial # [id number] Implanted 06/14/2012 ?? Bipolar, steroid-tipped, active-fixation IS-1 lead ?? Access: Not known ?? Location Right atrium anterolateral ?? P wave, PSA: 1.4 mV ?? P wave, ICD: 1.2 mV ?? Pacing threshold, PSA: 1.25 V at 1.0 ms ?? Pacing threshold, ICD: 1.25 V at 1.0 ms ?? Impedance, PSA: 306 ohms at 5 V Coronary sinus electrode: [employer] 1458Q/86 Serial number [id number] Implanted 02/18/2013 ?? Quadripolar passive active fixation lead ?? Access: Subclavian vein ?? Location: Coronary sinus, posterolateral vein ?? R wave, PSA: 8.3 (paced) mV ?? Pacing threshold, PSA: 0.8 V at 0.5 ms ?? Pacing threshold, ICD: 0.75 V at 0.4 ms ?? Impedance,PSA: 641 ohms ?? Impedance, device: 760 ohms ?? Pace the diaphragm/chest wall at 10 V: No Pulse generator: [employer] [id number] Serial number [id number] Implanted 02/18/2013 ?? HARVESTER OPERATOR ICD ?? Location: Subcutaneous Old ventricular lead : Medtronic 5075 Serial number [id number] (capped 02/18/2013) Old pulse generator: Medtronic ADDR01 Serial number [id number] (removed 02/18/2013) Detection and termination of ventricular [...] mode switch 180 bpm Underlying rhythm: SR 68 bpm with CHB Heart rate histograms: Good distribution Atrial lead impedance: 400 ohms RV lead impedance: 390 ohms LV lead impedance: 860 ohms M3-M2 RV shock impedance 75 ohms RV to Can Lead impedance trends stable P wave: 1.8 mV R wave: None Atrial capture threshold: 1.5 V @ 0.5 ms. Chronically elevated in former pacemaker as well. A Cap Confirm was NOT recommended RV capture threshold: 0.75 V at 0.5 ms. LV capture threshold: 1.5V @ 0.5 ms. Chronically elevated Pacing percentages: AP 90%; SECURITIES ADVISER >99% Mode switch episodes: 2, <1%, AT/AF burden <1%. VHR: None Histograms reasonably well distributed. CoreVue: Unremarkable. Battery: Est 2.9 years to MARY BETH Charge time: 9.8 sec 06/21/2014 Chest x-ray: No obvious lead issue on CXR today. EXAMINATION: CHEST ROUTINE 2 VIEWS CLINICAL HISTORY: Atrial lead oversensing. Insulation breach? Lead fracture? TECHNIQUE: PA and lateral chest. COMPARISON: February 19, 2013. FINDINGS: Stable positioning of the left-sided pulse generator. One lead ends in projection onto the right atrial appendage. 2 leads end in projection onto the right ventricle (1 may be disconnected). Another lead courses along the coronary sinus to the left ventricle. Lungs are clear. No pleural effusion. Normal size of the heart and width of the mediastinum. Healed left-sided rib fractures are seen again. IMPRESSION: Stable positioning of left-sided pulse generator and leads as described above. No lead break or displacement appreciated on chest radiographs. Incision assessment: No issues L chest Assessment/plan: 1. Normal device function, known elevated AP and LVP thresholds. 2. Unable to reproduce oversensing and no noise with maneuvers. 3. No symptoms of presyncope, syncope, palpitations, VT, SVT since November 18. 4. Very little AT/AF with only 2 AMS episodes and no symptoms. 5. No obvious lead issue on CXR today. Plan: Reprogramming: LRL reprogrammed to 60 bpm. Continue to monitor. Follow up in 3 months with Home download or sooner if issues noted. Kirit Khan, MSN, SOCIAL MEDIA SR STRATEGY MANAGER, CCDS documented in this encounter Plan of Treatment Upcoming Encounters Date Type Department Care Team (Late st Contact Info) Description 02/26/2024 10:00 AM EST Hospital Encounter Non-[place] [address] Arrived documented as of this encounter Procedures Procedure Name Priority Date/Time Associated Diagnosis Comments EKG 12-LEAD Routine 12/10/2014 2:41 PM EDT AICD (automatic cardioverter/defibril lator) present documented in this encounter Results * XR Chest Routine PA & Lateral (12/10/2014 3:42 PM EDT) Anatomical Region Laterality Modality Chest N/A Radiographic Vida ging 12/10/2014 3:42 PM EDT Impressions 12/10/2014 4:04 PM EDT IMPRESSION: Stable positioning of left-sided pulse generator and leads as described above. No lead break or displacement appreciated on chest radiographs. Narrative 12/10/2014 4:04 PM EDT EXAMINATION: CHEST ROUTINE 2 VIEWS CLINICAL HISTORY: tn ??Atrial lead oversensing. ??Insulation breach? ??Lead fracture? TECHNIQUE: PA and lateral chest. COMPARISON: February 19, 2013. FINDINGS: Stable positioning of the left-sided pulse generator. One lead ends in projection onto the right atrial appendage. 2 leads end in projection onto the right ventricle (1 may be disconnected). Another lead courses along the coronary sinus to the left ventricle. Lungs are clear. No pleural effusion. Normal size of the heart and width of the mediastinum. Healed left-sided rib fractures are seen again. Procedure Note Nataliya Lieberman MD - 12/10/2014 EXAMINATION: CHEST ROUTINE 2 VIEWS CLINICAL HISTORY: tn Atrial lead oversensing. Insulation breach? Lead fracture? TECHNIQUE: PA and lateral chest. COMPARISON: February 19, 2013. FINDINGS: Stable positioning of the left-sided pulse generator. One lead ends in projection onto the right atrial appendage. 2 leads end in projection ontothe right ventricle (1 may be disconnected). Another lead courses along thecoronary sinus to the left ventricle. Lungs are clear. No pleural effusion. Normal size of the heart and widthof the mediastinum. Healed left-sided rib fractures are seen again. IMPRESSION IMPRESSION: Stable positioning of left-sided pulse generator and leads as describedabove. No lead break or displacement appreciated on chest radiographs. Destin He MD IMG DX ORDERABLES * EKG 12 Lead (12/10/2014 2:41 PM EDT) Ventricular rate 70 BPM MUSE SYSTEM Atrial Rate 70 BPM MUSE SYSTEM P-R Interval 218 ms MUSE SYSTEM QRS Duration 100 ms MUSE SYSTEM Q-T Interval 412 ms MUSE SYSTEM QTC Calculated (Bezet) 444 ms MUSE SYSTEM Calculated P [place] 9 degrees MUSE SYSTEM Calculated R [place] -70 degrees MUSE SYSTEM Calculated T [place] -15 degrees MUSE SYSTEM INTERPRETATION AV sequential or dual chamber electronic pacemaker Abnormal ECG When compared with ECG of 17-AUG-2012 11:07, AV sequential or dual chamber electronic pacemaker has replaced Electronic ventricular pacemaker Confirmed by MD MIREILLE, LOLA ([id number]) on 12/10/2014 8:44:59 PM MUSE SYSTEM 12/10/2014 2:41 PM EDT 12/10/2014 8:44 PM EDT Destin He MD ECG ORDERABLES MUSE SYSTEM documented in this encounter Visit Diagnoses Diagnosis AICD (automatic cardioverter/defibrillator) present Automatic implantable cardiac defibrillator in situ Biventricular implantable cardioverter-defibrillator in situ AICD (automatic cardioverter/defibrillator) present Automatic implantable cardiac defibrillator in situ documented in this encounter Care Teams Metalizing Machine Operator Automatic Relationship Specialty Start Date End Date Charli Jaramillo MD [address] [place] [address] [address] PCP - General 03/25/11 08/07/22 documented as of this encounter
--- OUTSIDE RECORDS SUMMARY | 2023-12-11 18:47 | XMS_ITS | Encounter Summary ---
[place] [address] Care Team Providers Care Form Layer Name Role Phone Carlos Valdez MD Primary Care Provider [phone] Encounter Details Date Type Department Care Team (Latest Contact Info) Description 02/03/2015 10:30 AM EST [place] [phone] Cardiomyopathy; Heart failure, unspecified heart failure chronicity, unspecified heart failure type Social History Tobacco Use [...] AM EST Hospital Encounter Non-Invasive [place] [phone] Arrived documented as of this encounter Procedures Procedure Name Priority Date/Time Associated Diagnosis Comments HEMOGRAM STAT 02/03/2015 9:08 AM EST Cardiomyopathy Heart failure, unspecified heart failure chronicity, unspecified heart failure type DIFFERENTIAL, AUTOMATED STAT 02/03/2015 9:08 AM EST Cardiomyopathy Heart failure, unspecified heart failure chronicity, unspecified heart failure type CBC (WITH DIFF) STAT 02/03/2015 9:08 AM EST Cardiomyopathy Heart failure, unspecified heart failure chronicity, unspecified heart failure type CRP, CARDIAC RISK (HS CRP) Routine 02/03/2015 9:08 AM EST Cardiomyopathy Heart failure, unspecified heart failure chronicity, unspecified heart failure type PRO-BRAIN NATRIURETIC PEPTIDE STAT 02/03/2015 9:08 AM EST Cardiomyopathy Heart failure, unspecified heart failure chronicity, unspecified heart failure type COMPREHENSIVE METABOLIC PANEL STAT 02/03/2015 9:08 AM EST Cardiomyopathy Heart failure, unspecified heart failure chronicity, unspecified heart failure type documented in this encounter Results * Differential, Automated (02/03/2015 9:08 AM EST) Neutrophil % 57.5 % CERNER MILLENNIUM Neutrophil Absolute 5.88 1.50 - 6.30 x10(3)/mcL CERNER MILLENNIUM Lymph % 29.0 % CERNER MILLENNIUM Lymphocytes Abs 3.0 1.0 - 3.6 x10(3)/mcL CERNER MILLENNIUM Monocyte % 9.8 % CERNER MILLENNIUM Monocyte Abs 1.0 0.2 - 1.0 x10(3)/mcL CERNER MILLENNIUM Eos % 3.0 % CERNER MILLENNIUM Eosinophils Abs 0.3 0.0 - 0.5 x10(3)/mcL CERNER MILLENNIUM Basophil [...] 0.05 x10(3)/mcL CERNER MILLENNIUM Blood specimen (specimen) 02/03/2015 9:08 AM EST 02/03/2015 9:21 AM EST Narrative Resulting Agency Comment Spec In Lab Brady Ugarte MD HEMATOLOGY ORDERABLE S Performing Organization Address [facility]/ZIP Co de Phone Number CERNER MILLENNIUM * (ABNORMAL) Hemogram (02/03/2015 9:08 AM EST) White Blood Cell 10.2(H) 4.0 - 10.0 x10(3)/mc L CERNER MILLENNIUM Red Blood Cell 5.47 4.63 - 6.08 x10(6)/mc L CERNER MILLENNIUM Hemoglobin 16.0 13.7 - 17.5 gm/dL CERNER MILLENNIUM Hematocrit 47.3 40.0 - 51.0 % CERNER MILLENNIUM Mean Cell Volume 86.5 79.0 - 92.0 fL CERNER MILLENNIUM Mean Cell Hemoglobin 29.3 25.6 - 32.2 pg CERNER MILLENNIUM Mean Cell Hemoglobin Concentration 33.8 32.0 - 36.5 gm/dL CERNER MILLENNIUM Platelet 225 145 - 370 x10(3)/mc L CERNER MILLENNIUM RDW Standard Deviation 40.3 35.0 - 46.0 fL CERNER MILLENNIUM RDW coefficient of variation 12.8 10.9 - 14.4 % CERNER MILLENNIUM Mean Platelet Volume 10.8 9.0 - 12.0 fL CERNER MILLENNIUM Blood specimen (specimen) 02/03/2015 9:08 AM EST 02/03/2015 9:21 AM EST Narrative Resulting Agency Comment Spec In Lab Brady Ugarte MD HEMATOLOGY ORDERABLE S Performing Organization Address [facility]/ZIP Co de Phone Number CERBAILEY ALCANTARAENNIUM * High Sensitivity CRP (02/03/2015 9:08 AM EST) C-Reactive Protein High Sensitivity 4.3 mg/L CERNER MILLENNIUM Comment: Interpretations: 1) For accurate cardiac risk [...] In Lab Brady Ugarte MD CHEMISTRY ORDERABLES [facility] * pro-Brain Natriuretic Peptide (02/03/2015 9:08 AM EST) NT-proBNP 90 <=125 pg/mL [facility] Blood specimen (specimen) 02/03/2015 9:08 AM EST 02/03/2015 9:21 AM EST Narrative Resulting Agency Comment Spec In Lab Brady Ugarte MD CHEMISTRY ORDERABLES Performing Organization Address [facility]/ZIP Co de Phone Number [facility] * (ABNORMAL) Comprehensive metabolic panel (non-fasting) (02/03/2015 9:08 AM EST) Glucose 74 65 - 199 mg/dL [facility] Comment:Diabetes: >=200 mg/d L plus symptoms Blood Urea Nitrogen 22(H) 10 - 20 mg/dL [facility] Creatinine 0.92 0.80 - 1.50 mg/dL [facility] Comment: Please note that the pediatric reference intervals supplied above were not validated at [facility]. Results from pediatric patients should be interpreted [...] the following links into your internet browser. [email or web address] Blood specimen (specimen) 02/03/2015 9:08 AM EST 02/03/2015 9:21 AM EST Narrative Resulting Agency Comment Spec In Lab Brady Ugarte MD CHEMISTRY ORDERABLES CERNER MILLENNIUM documented in this encounter Visit Diagnoses Diagnosis Cardiomyopathy Other primary cardiomyopathies Heart failure, unspecified heart failure chronicity, unspecified heart failure type documented in this encounter Care Teams Form Layer Relationship Specialty Start Date End Date Carlos Valdez MD [address] [place] [address] PCP - General 03/25/11 08/07/22 documented as of this encounter
--- OUTSIDE RECORDS SUMMARY | 2023-12-11 18:47 | XMS_ITS | Encounter Summary ---
Author Organization [place] [address] Care Team Providers Care Small Stock Facer Name Role Phone Carlos Valdez MD Primary Care Provider [phone] Reason for Referral * MRI/CAT Scan (Routine) - Closed Specialty Diagnoses / Procedures Referred By Theodora de la torre Referred To Contact Diagnoses Other primary cardiomyopathies Heart failure, unspecified Procedures Echocardiogram Transthoracic(Leb) Brady Ugarte MD [facility] [place] [address] [facility] [place] [address] Referral ID Status Reason Start Date Expiration Date Visits Re quested Visits Authorized [id number] Closed 02/03/2015 04/03/2015 1 1 Encounter Details Date Type Department Care Team (Late st Contact Info) Description 12/16/2014 Orders Only Cardiology at [address] [phone] Brady Ugarte MD [facility] [place] [address] Other primary cardiomyopathies; Heart failure, unspecified Social [...] EST Hospital Encounter Non-[place] [phone] Arrived documented as of this encounter Results * ECHO COMPLETE (02/03/2015 10:29 AM EST) EF 59 HEARTLAB SYSTEM Anatomical Region Laterality Modality Other 02/03/2015 Narrative 02/03/2015 10:38 AM EST Procedure: ?Transthoracic Echocardiogram Patient: ?PORSCHE Mancilla ? (Age): 1945(69y) Med Rec#: ? [id number] ?Sex: ?M ? Site Loc: ? [facility] ?Ht / Wt: ??196(cm)/107(kg) Pt. Loc: ?Echo Lab ?BSA: ?2.4 Study Date: ?? 02/03/2015 ?Pt. Type: Outpatient Tape: ? Referring: Brady Ugarte ([id number]) Reading: Charbel Naqvi ([id number]) Vegetable Buncher: Maya Arnold Diagnosis: *ICD-10-PCS Other cardiomyopathies (I42.8) CPT Codes: *Echo Full (84142) *Spectral Doppler (29636) *Color Doppler (72582) BP: ? 141/79 SUMMARY: 1. The left [...] E-wave Vmax ?0.6 ?m/sec ? MV deceleration eiht230.1 ?msec ? MV A-wave Vmax ?0.6 ?m/sec [...] ? Mid-Inferior ?Normal ? Mid-Inferoseptal ?Normal ? [place]-Septal ? Normal ? [place]-Anterior ? Normal ? [place]-Lateral ?Normal ? [place]-Inferior ? Normal ? [place]-Tip ?Normal ? This report has been electronically signed by: Charbel Naqvi MD ? 02/03/2015 10:37:35 Images reviewed and interpretation verified [facility] Cardiac Ultrasound Laboratory Procedure Note Charbel Naqvi MD - 02/03/2015 Procedure: Transthoracic Echocardiogram Patient: PORSCHE Mancilla DOB(Age): 1945(69y) Med Rec#: [id number] Sex: M Site Loc: [facility] Ht / Wt: 196(cm)/107(kg) Pt. Loc: Echo Lab BSA: 2.4 Study Date: 02/03/2015 Pt. Type: Outpatient Tape: Referring: Brady Ugarte ([id number]) Reading: Charbel Naqvi ([id number]) Vegetable Buncher: Maya Arnold Diagnosis: *ICD-10-PCS Other cardiomyopathies (I42.8) CPT Codes: *Echo Full (55978) *Spectral Doppler (91890) *Color Doppler (66889) BP: 141/79 SUMMARY: 1. The left ventricular [...] MV E-wave Vmax 0.6 m/sec MV deceleration zepp710.1 msec MV A-wave Vmax 0.6 m/sec MV [...] Normal Mid-Posterolateral Normal Mid-Inferior Normal Mid-Inferoseptal Normal [place]-Septal Normal [place]-Anterior Normal [place]-Lateral Normal [place]-Inferior Normal [place]-Tip Normal This report has been electronically signed by: Charbel Naqvi MD 02/03/2015 10:37:35 Images reviewed and interpretation verified [facility] Cardiac Ultrasound Laboratory Brady Ugarte MD ECHO ORDERABLES documented in this encounter Visit Diagnoses Diagnosis Other primary cardiomyopathies Heart failure, unspecified Other primary cardiomyopathies Heart failure Heart failure, unspecified documented in this encounter Care Teams Small Stock Facer Relationship Specialty Start Date End Date Carlos Valdez MD [address] [facility] [address] [place] [address] PCP - General 03/25/11 08/07/22 documented as of this encounter
--- OUTSIDE RECORDS SUMMARY | 2023-12-11 18:47 | XMS_ITS | Encounter Summary ---
[place] [address] Care Team Providers Care Manager Heavy Equipment Name Role Phone Charli Jaramillo MD Primary Care Provider [phone] Reason for Visit * Reason Comments Cardiomyopathy HOSPICE EDUCATOR-D check Encounter Details Date Type Department Care Team (Late st Contact Info) Description 02/03/2014 1:30 PM EST Office Visit Cardiology at [address] [phone] Ciaran Medel RN Non-ischemic cardiomyopathy; LBBB (left bundle branch block) Social History Tobacco Use Types Packs/Day Years [...] Sign Reading Time Taken Comments Blood Pressure 122/82 02/03/2014 1:28 PM EST Pulse 72 02/03/2014 1:28 PM EST regul ar, radial Temperature - - Respiratory Rate - - Oxygen Saturation 96% 02/03/2014 1:28 PM EST Inhaled Oxygen Concentration - - Weight 107 kg (236 lb) 02/03/2014 1:28 PM EST Height 198.1 cm (6' 6) 02/03/2014 1:28 PM EST Body Mass Index 27.27 02/03/2014 1:28 PM EST documented in this encounter Progress Notes * Ciaran Medel RN - 02/03/2014 1:07 PM EST Pacemaker Clinic Follow-Up Jimmie Mccauley is a 68 y.o. male who presents today in the device clinic for HOSPICE EDUCATOR- D interrogation. Heoriginally had a pacemaker implanted 06/14/2012 for CHB. This was done at [facility] in [place], [place]. He underwent upgrade to HOSPICE EDUCATOR-D on 02/18/2013 for CHF, CM, ventricular dyssynchrony. He is seeing Dr. Ugarte today as well. Multimedia Journalist: Brady Ugarte MD PCP: CHARLI JARAMILLO MD Final Parameters: New Ventricular electrode: [employer] Model# 7122Q-58 cm Serial #[id number] Implanted 02/18/2013 Bipolar, steroid-tipped, active-fixation DF-4 lead Access: Axillary vein Location: Right ventricular apical septum R wave, PSA: 7.8 (paced) mV Pacing threshold, PSA: 0.7 V at 0.5 ms Pacing threshold, ICD: 0.75 V at 0.4 ms Impedance, PSA: 925 ohms Impedance, ICD: 940 ohms RV coil Impedance 68 ohms Pace the diaphragm at 10 V: No (old) Atrial electrode: [employer], Model # 5568-52 cm Serial # [id number] Implanted 06/14/2012 Bipolar, steroid-tipped, active-fixation IS-1 lead Access: Not known Location Right atrium anterolateral P wave, PSA: 1.4 mV P wave, ICD: 1.2 mV Pacing threshold, PSA: 1.25 V at 1.0 ms Pacing threshold, ICD: 1.25 V at 1.0 ms Impedance, PSA: 306 ohms at 5 V Coronary sinus electrode: [employer] 1458Q/86 Serial number [id number] Implanted 02/18/2013 Quadripolar passive active fixation lead Access: Subclavian vein Location: Coronary sinus, posterolateral vein R wave, PSA: 8.3 (paced) mV Pacing threshold, PSA: 0.8 V at 0.5 ms Pacing threshold, ICD: 0.75 V at 0.4 ms Impedance,PSA: 641 ohms Impedance, device: 760 ohms Pace the diaphragm/chest wall at 10 V: No Pulse generator: [employer] [id number] Serial number [id number] Implanted 02/18/2013 HOSPICE EDUCATOR ICD Location: Subcutaneous Old ventricular lead : Medtronic 5075 Serial number [id number] (capped 02/18/2013) Old pulse generator: Med[employer]onic ADDR01 Serial number [id number] (removed 02/18/2013) Detection and termination of ventricular [...] impedance: 890 ohms M3-M2 RV shock impedance 66 ohms RV to Can Lead impedance trends stable P wave: 2.2 mV R wave: None Atrial capture threshold: 0.75 V @ 1.0 ms. Chronically elevated in former pacemaker as well. A Cap Confirm was NOT recommended RV capture threshold: 0.625 V at 0.5 ms. RV Cap Confirm recommended LV capture threshold: 2.125 V at 0.5 ms M3-M2. LV Cap Confirm recommended. Chronically elevated Pacing percentages: AP 86%; SPACE SCIENCES DIRECTOR >99% Mode switch episodes: None Single atrial noise reversion 09/08/2013 not reproducible in the clinic VHR: None Histograms reasonably well distributed. CoreVue: Elevated in August 2013 (8 days), September 2013 (7 days), Oct 2013 (8 days) and Dec 2013 (19 days) Battery: 30 uA, 78%, est 3.4 years to MARY BETH Charge time: 9.6 sec 10/20/2013 Chest x-ray: Ok day after implant Incision assessment: No issues L chest Assessment/plan: Normal device function, known elevated AP and LVP thresholds, no events. RTC 6 mos. [place] 3 mos. Reprogramming: None I have personally/independently reviewed and analyzed the data collected from the patients device. The device is functioning normally and I agree with the plan. Abiel Mcclelland DO Cardiac Rn Call Center Cardiac Electrophysiology Department [place], [place] ) Pager [phone]) documented in this encounter Plan of Treatment Upcoming Encounters Date Type Department Care Team (Late st Contact Info) Description 02/26/2024 10:00 AM EST Hospital Encounter Non-Invasive [place] [address] Arrived documented as of this encounter Visit Diagnoses Diagnosis Non-ischemic cardiomyopathy Other primary cardiomyopathies LBBB (left bundle branch block) Other left bundle branch block documented in this encounter Care Teams Manager Heavy Equipment Relationship Specialty Start Date End Date Charli Jaramillo MD [address] [place] [address] PCP - General 03/25/11 08/07/22 documented as of this encounter
--- OUTSIDE RECORDS SUMMARY | 2023-12-11 18:47 | XMS_ITS | Encounter Summary ---
Author Organization [facility] [place] [address] Care Team Providers Care Casework Specialist Name Role Phone Carlos Valdez MD Primary Care Provider [phone] Reason for Visit * Reason Onset Date Comments Other 11/08/2013 ECHO ORDER Encounter Details Date Type Department Care Team (Late st Contact Info) Description 11/08/2013 Telephone Cardiology at [address] [phone] Brady Ugarte MD [facility] DR C[place]IOLOG[place] [address] Other (ECHO ORDER) Social History Tobacco Use Types Packs/Day Years [...] encounter Miscellaneous Notes * Telephone Encounter - Mirtha Isabel - 11/08/2013 10:42 AM EDT Please sign attached order for upcoming appointment. documented in this encounter Plan of Treatment Upcoming Encounters Date Type Department Care Team (Late st Contact Info) Description 02/26/2024 10:00 AM EST Hospital Encounter Non-In[place] [address] Arrived documented as of this encounter Results * Echocardiogram Transthoracic(Leb) (02/03/2014 1:14 PM EST) EF 50 HEARTLAB SYSTEM Anatomical Region Laterality Modality Other 02/03/2014 Narrative 02/03/2014 4:16 PM EST Procedure: ? Transthoracic Echocardiogram Patient: ? PORSCHE TOBIAS Charo ?(Age): 1945(68) Med Rec#: ?[id number] ? Sex: ?M ? [place] [place] Ht / Wt: ??198.12(cm)/104. Pt. Loc: ? Echo Lab ? BSA: ?2.4 Study Date: ?02/03/2014 ? Pt. Type: Outpatient Tape: ? Referring: Brady Ugarte ([id number]) Industrial Equipment Mechanic: Rosita Basilio Diagnosis: ??Cardiomyopathy (425.4) CPT Code(s): ??Color Doppler (16130), ??Echo Full (35332), ??Spectral Doppler (07508), Indication(s): ??Congestive heart failure Rhythm: Paced rhythm [...] ? Mid-Inferior ?Normal ? Mid-Inferoseptal ?Normal ? [place]-Septal ? Normal ? [place]-Anterior ? Normal ? [place]-Lateral ?Normal ? [place]-Inferior ? Normal ? [place]-Tip ?Normal ? Chambers ?Value ?Units (Range) ? [...] 02/03/2014 16:16:14 Images reviewed and interpretation verified [facility] Cardiac Ultrasound Laboratory Procedure Note Rony Francisco MD - 02/03/2014 Procedure: Transthoracic Echocardiogram Patient: PORSCHE ROBERTS(Age): 1945(68) Med Rec#: [id number] Sex: M [place] [facility] Ht / Wt: 198.12(cm)/104. Pt. Loc: Echo Lab BSA: 2.4 Study Date: 02/03/2014 Pt. Type: Outpatient Tape: Referring: Brady Ugarte ([id number]) Industrial Equipment Mechanic: Rosita Basilio Diagnosis: Cardiomyopathy (425.4) CPT Code(s): Color Doppler (25619), Echo Full (27244), Spectral Doppler (35778), Indication(s): Congestive heart failure Rhythm: Paced rhythm [...] change in the inferior vena cava dimension. [facility] Two-dimensional echo, spectral Doppler and color Doppler performed. Wall Motion: Segment Name Rest Base-Anteroseptal Normal Base-Anterior Normal Base-Anterolateral Normal Base-Posterolateral Normal Base-Inferior Normal Base-Inferoseptal Normal Mid-Anteroseptal Normal Mid-Anterior Normal Mid-Anterolateral Normal Mid-Posterolateral Normal Mid-Inferior Normal Mid-Inferoseptal Normal [place]-Septal Normal [place]-Anterior Normal [place]-Lateral Normal [place]-Inferior Normal [place]-Tip Normal Chambers Value Units (Range) LV EF [...] 02/03/2014 16:16:14 Images reviewed and interpretation verified [facility] Cardiac Ultrasound Laboratory Brady Ugarte MD ECHO ORDERABLES documented in this encounter Visit Diagnoses Diagnosis Other primary cardiomyopathies Heart failure, unspecified Other primary cardiomyopathies Heart failure, unspecified documented in this encounter Care Teams Casework Specialist Relationship Specialty Start Date End Date Carlos Valdez MD [address] [place] [address] PCP - General 03/25/11 08/07/22 documented as of this encounter
--- OUTSIDE RECORDS SUMMARY | 2023-12-11 18:47 | XMS_ITS | Encounter Summary ---
[place] [address] Care Team Providers Care Manager Talent Name Role Phone Carlos Valdez MD Primary Care Provider [phone] Encounter Details Date Type Department Care Team (Latest Contact Info) Description 02/22/2013 Anti-Coag Telephone Visit Cardiology at [address] [phone] Kavya Song RN Pulmonary embolism Social History Tobacco Use Types Packs/Day Years [...] AM EST Hospital Encounter Non[place] [phone] Arrived documented as of this encounter Visit Diagnoses Diagnosis Pulmonary embolism Other pulmonary embolism and infarction documented in this encounter Care Teams Manager Talent Relationship Specialty Start Date End Date Carlos Valdez MD [address] [place] [address] PCP - General 03/25/11 08/07/22 documented as of this encounter
--- OUTSIDE RECORDS SUMMARY | 2023-12-11 18:47 | XMS_ITS | Encounter Summary ---
Author Organization [facility] [place] [address] Care Team Providers Care Home Health Travel Ot Name Role Phone Carlos Valdez MD Primary Care Provider [phone] Reason for Visit * Reason Onset Date Comments Other 02/21/2013 device implanted Monday; needs clarification on taking off his bandage; says he got conflicting information Encounter Details Date Type Department Care Team (Late st Contact Info) Description 02/21/2013 Telephone Cardiology at [address] [phone] Kirit Khan, [facility] [address] Other (device implanted Monday; needs clarification on taking off his bandage; says he got conflicting information) Social History Tobacco Use Types Packs/Day Years [...] encounter Miscellaneous Notes * Telephone Encounter - Valery Waters - 02/21/2013 1:21 PM EST Marcel, The patient had a device implanted Monday and needs clarification on taking off his bandage; says he got conflicting information Please call him at your convenience. Thank you. documented in this encounter Plan of Treatment Upcoming Encounters Date Type Department Care Team (Late st Contact Info) Description 02/26/2024 10:00 AM EST Hospital Encounter Non-Invasive [place] [address] Arrived documented as of this encounter Visit Diagnoses Not on filedocumented in this encounter Care Teams Home Health Travel Ot Relationship Specialty Start Date End Date Carlos Valdez MD [address] [place] [address] PCP - General 03/25/11 08/07/22 documented as of this encounter
--- OUTSIDE RECORDS SUMMARY | 2023-12-11 18:47 | XMS_ITS | Encounter Summary ---
Author Organization [facility] [place] [address] Care Team Providers Care Fire Hazard Inspector Name Role Phone Charli Jaramillo MD Primary Care Provider [phone] Encounter Details Date Type Department Care Team (Late st Contact Info) Description 07/11/2013 2:40 PM EDT Follow-Up Cardiology at [address] [phone] Xin Grewal, ARCHITECTURAL EXAMINER [facility] [place] [address] [place] [address] Other primary cardiomyopathies; Heart failure, unspecified; Pericarditis Social History Tobacco Use Types Packs/Day Years [...] Time Taken Comments Blood Pressure 130/76 07/11/2013 2:35 PM EDT Pulse 75 07/11/2013 2:35 PM EDT Temperature - - Respiratory Rate - - Oxygen Saturation 97% 07/11/2013 2:35 PM EDT Inhaled Oxygen Concentration - - Weight 108.9 kg (240 lb) 07/11/2013 2:35 PM EDT Height 200.7 cm (6' 7.02) 07/11/2013 2:35 PM ED T Body Mass Index 27.03 07/11/2013 2:35 PM EDT documented in this encounter Progress Notes * Xin Grewal, ARCHITECTURAL EXAMINER - 07/11/2013 2:59 PM EDT Images from the original note were not included. [facility] [place] [address] CARDIOMYOPATHY/HEART FAILURE SERVICE OUTPATIENT CLINIC NOTE Jimmie Mccauley 07/11/2013 Primary Care Provider: CHARLI JARAMILLO MD Referring Provider: Charli Jaramillo CHIEF COMPLAINT: Follow up cardiomyopathy, heart failure, pericarditis. HISTORY OF PRESENT ILLNESS: Jimmie Mccauley is a 68 y.o. patient seen in routine follow up in the [facility] Heart Failure [facility]. 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 Remains active and busy. Has occ fatigue, [...] bit, but due to decreased winter activity. PAST MEDICAL HISTORY: Reviewed and updated as appropriate in the medical record. Patient Active Problem List Diagnosis ??? Biventricular ICD (implantable cardiac defibrillator) in place 02/19/2013 Cardiac Resynchronization Therapy ICD Upgrade (explant of pacemaker pulse generator), peripheral Subclavian Venography, Cinefluoroscopy, pacemaker pocket revision and defibrillation safety margin testing, under General anesthesia Indication: Cardiomopathy with congestive heart failure and ventricular dyssynchrony, ventricular pacing New Ventricular electrode: [employer] Model# 7122Q-58 cm Serial #[id number] Implanted 02/18/2013 Bipolar, steroid-tipped, active-fixation DF-4 lead Access: Axillary vein Location: Right ventricular apical septum (old) Atrial electrode: Medtronic, Model # 5568-52 cm Serial # [id number] Implanted 06/14/2012 Bipolar, steroid-tipped, active-fixation IS-1 lead Access: Not known Location Right atrium anterolateral Coronary sinus electrode: [employer] 1458Q/86 Serial number [id number] Implanted 02/18/2013 Quadripolar passive active fixation lead Access: Subclavian vein Location: Coronary sinus, posterolateral vein Pulse generator: [employer] [id number] Serial number [id number] Implanted 02/18/2013 STUDIO DATA ANALYST ICD Location: Subcutaneous Old ventricular lead : Medtronic 5075 Serial number [id number] (capped 02/18/2013) Old pulse generator: Medtronic ADDR01 Serial number [id number] (removed 02/18/2013) Detection and termination of ventricular [...] Trivial pleural effusion on chest x-ray Elevated TWQ=408 a-->3.8 AN ESR=53 on index presentation --> [...] Echo 11/13/12 EF=36% No effusion LV=6.1/5.1 cm d. Sinus rhythm with left bundle branch block, PVCs, QRS fcytkaaz=007 msec. Symptomatic CHB 06/13/12- s/p DDDR pacemaker [...] Carvedilol ROSY/ARB Yes Losartan Spironolactone no Previously 8847-2722, d/c secondary to side effects (hives), no rechallenge Amlodipine Yes Initiated 05/30 LA AFIB? no Anticoagulated AICD/Type STUDIO DATA ANALYST-D EF dropped to 35%- 04/02/13 back up at ~ 50% NSR with LBBB, QRS= 170 ms CHB [...] use ??? LBBB (left bundle branch block) AIM=910 ms New Symptomatic CHB 05/30-->declined pacer at initial presentation while traveling -S/p temp pacer-->Permanent DDDR pacer -LVEF~ 50-55%, ICD not indicated, but at risk for V paced rhythm dyssynchrony ??? Complete heart block Symptomatic bradycardia with CHB and LBBB, HR in the 20-30s Initially seen at a local ER, pacemaker recommended, but declined While in ICU, [place], called [facility] in cath report, but likely symptomatic bradycardia and CHB CHB- s/p temporary pacer 06/13/2012 - cath: Angiogram, mild irregularities of LAD, LCXF dominant, 30-40% mid RCA - No LV gram done S/p DDD-R Pacemaker Medtronic Adapta Dual Chamber Model # ADDR01, Serial number [id number] -[place], [place] ??? HX SUDDEN CARDIAC ARREST Probably bradycardic induced, presenting with symptomatic CHB, and requiring defibrillation 05/2012 SOCIAL HISTORY: Reviewed and updated as appropriate in the medical record. The patient reports thathe quit smoking about 17 years ago. His smoking use included Cigarettes. He has never used smokeless tobacco. He reports that he drinks about .5 ounces of alcohol per week. He reports that he does not use illicit drugs. FAMILY HISTORY: Reviewed and updated as appropriate in the medical record. No family history on file. ALLERGIES: Reviewed and updated as appropriate in the medical record. Allergies Allergen Reactions ??? Lasix (Furosemide) Rash MEDICATIONS: Current Outpatient Rx Name Route Sig Dispense Refill ??? ATORVASTATIN 10 MG TABLET Oral Take 10 mg by mouth daily. ??? UHHYRVP-YUVNEKSPUWXQX-GNGZFWXX 250 MG-250 MG-65 MG TABLET Oral Take 1 tablet by mouth every 6 hours as needed. ??? COREG CR 40 MG CAPSULE, EXTENDED RELEASE TAKE 1 CAPSULE (40MG) BY MOUTH DAILY 90 capsule 3 ??? IBUPROFEN 200 MG TABLET Oral Take 400 mg by mouth every 6 hours as needed. ??? HYDROCODONE 5 MG-ACETAMINOPHEN 500 MG TABLET Oral Take 1 tablet by mouth every 6 hours as needed. ??? LOSARTAN 50 MG TABLET Oral Take 1 tablet by mouth daily. 30 tablet 3 ??? BUMETANIDE 0.5 MG TABLET Oral Take 1 tablet by mouth daily. 30 tablet 0 ??? SILDENAFIL 100 MG TABLET Oral Take 1 tablet by mouth once as needed. 10 tablet 0 ??? ZOLPIDEM 10 MG TABLET Oral Take 1 tablet by mouth nightly. 30 tablet 0 Patient will need to get future ambien scripts fro ... REVIEW OF SYSTEMS: Patient-reported scores from the Heart Failure Survey are: myD-H Heart Failure 12/25/2012 PROMIS 10- Physical Health Score 50.8 PROMIS 10- Mental Health Score 59 KCCQ - Total Symptom Score 100 KCCQ - Quality of Life 83.33 KCCQ - Social Limitation 100 KCCQ - Physical Limitation 100 KCCQ - Overall Summary Score 95.83 PHYSICAL EXAMINATION: Vital Signs: Wt Readings from Last 3 Encounters: 07/11/13 108.863 kg (240 lb) 07/11/13 108.863 kg (240 lb) 04/02/13 102.513 kg (226 lb) Temp Readings from Last 3 Encounters: 02/19/13 36.8 ??C (98.2 ??F) Oral 02/19/13 36.8 ??C (98.2 ??F) Oral 02/11/13 35.6 ??C (96 ??F) Temporal BP Readings from Last 3 Encounters: 07/11/13 130/76 07/11/13 130/76 04/02/13 122/70 Pulse Readings from Last 3 Encounters: 07/11/13 75 07/11/13 75 04/02/13 69 SpO2: [97 %] General -Alert, oriented, NAD. Affect appropriate. Well-developed male HEENT -unremarkable, no xanthelasma, arcus, icterus. PERRLA, moist mucous membranes. Dentition good. Small oropharynx Neck -without lymphadenopathy, mass, thyromegaly Carotid upstrokes are brisk Chest -site well healed, no ecchymoses- Lungs -clear without rales or rhonchi, Cardiac -Regular with normal S1, normally split S2, 1/6 systolic crescendo decrescendo murmur, no S3 or S4 gallop is noted. PMI not displaced. No RV lift. JVP~ less than 6-7cm H20, without AJR. No pericardial friction rub noted Abdomen -soft, non-tender, no significant organomegaly, masses or bruits Extremities -tr to no ankle edema, warm to feet. Pulses 1-2+ Neuro -nonfocal LAB STUDIES: Recent Labs Basename 07/11/13 1334 NA 138 K 4.1 CL 102 CO2 23 BUN 19 CREATININE 0.89 GLUCOSE 96 ProBNP Date Value Range Status 07/11/2013 233* <=125 pg/mL Final 04/02/2013 231* <=125 pg/mL Final 12/26/2012 377* <=125 pg/mL Final CARDIAC STUDIES ICD evaluation today: Prelim - no events - > 90% BiVp Last echo: SUMMARY: 1. Limited echocardiogram. 2. The pericardium appears normal and there is no evidence of a pericardial effusion. 3. Global left ventricular systolic function is mildly reduced. The quantitative left ventricular ejection fraction by biplane Ramirez's method is 51%. There is diffuse hypokinesis present. 4. The inferior vena cava appears normal in size. 5. See remainder of report for additional findings. Assess: 1. H/O Pericarditis. Treated with ibuprofen, colchicine. Symptoms have virtually resolved though occ taking NSAID 2. Cardiomyopathy, longstanding nonischemic with LVEF ranging 20-50% over the years. LVEF improved post STUDIO DATA ANALYST upgrade 3. Heart failure. ACC/AHA stage C. NYHA FC I-II. Euvolemic today. 4. CHB - pacemaker dependent. RECOMMENDATIONS: 1. MEDICATIONS: The patient's medication list was updated and new Rxs given as needed. The medication list was reviewed with the patient, rationale for therapy and potential side effectsto be aware of discussed. - ibuprofen PRN, patient informed to take medications with meals - continue current medications 2. The following labs, referrals or other testing advised: - none today 3. COUNSELING: Specific issues or questions addressed on this visit: - As above - Reviewed his laboratories 4. Cardiology follow-up scheduled for: - 6 months - coordinate with device check - PCP and other subspecialists as previously arranged XIN GREWAL APRN documented in this encounter Plan of Treatment Upcoming Encounters Date Type Department Care Team (Late st Contact Info) Description 02/26/2024 10:00 AM EST Hospital Encounter Non[place] [address] Arrived documented as of this encounter Results * Basic Metabolic Panel (non-fasting) (07/11/2013 1:34 PM EDT) Glucose 96 60 - 199 mg/dL CERNER MILLENNIUM Comment:Diabetes: >=200 mg/d L plus symptoms Blood Urea Nitrogen 19 10 - 20 mg/dL CERNER MILLENNIUM Creatinine 0.89 0.80 - 1.50 mg/dL CERNER MILLENNIUM Comment: Please note that the pediatric reference intervals supplied above were not validated at [facility]. Results from pediatric patients should be interpreted [...] Ugarte MD CHEMISTRY ORDERABLES Performing Organization Address [facility] Co de Phone Number NELSON ONEILL * (ABNORMAL) pro-Brain Natriuretic Peptide (07/11/2013 1:34 PM EDT) NT-proBNP 233(H) <=125 pg/mL NELSON ONEILL Blood specimen (specimen) 07/11/2013 1:34 PM EDT 07/11/2013 1:51 PM EDT Narrative Resulting Agency Comment Spec In Lab Brady Ugarte MD CHEMISTRY ORDERABLES Performing Organization Address [facility] Co de Phone Number NELSON ONEILL documented in this encounter Visit Diagnoses Diagnosis Other primary cardiomyopathies Heart failure, unspecified Pericarditis Unspecified disease of pericardium documented in this encounter Care Teams Fire Hazard Inspector Relationship Specialty Start Date End Date Charli Jaramillo MD [address] [place] [address] PCP - General 03/25/11 08/07/22 documented as of this encounter
--- OUTSIDE RECORDS SUMMARY | 2023-12-11 18:47 | XMS_ITS | Encounter Summary ---
Author Organization [facility] [place] [address] Care Team Providers Care Stonemason Apprentice Name Role Phone Carlos Valdez MD Primary Care Provider [phone] Reason for Visit * Reason Comments Medication Refill Encounter Details Date Type Department Care Team (Late st Contact Info) Description 08/10/2014 Refill Cardiology at [address] [phone] Xin Grewal, SPACE PLANNER [facility] [place] [place] [address] Medication Refill Social History Tobacco Use Types [...] EST Hospital Encounter Non-Invasive [place] [phone] Arrived documented as of this encounter Visit Diagnoses Not on filedocumented in this encounter Care Teams Stonemason Apprentice Relationship Specialty Start Date End Date Carlos Valdez MD [address] [place] [address] PCP - General 03/25/11 08/07/22 documented as of this encounter
--- OUTSIDE RECORDS SUMMARY | 2023-12-11 18:47 | XMS_ITS | Encounter Summary ---
[place] [address] Care Team Providers Care Wrister Name Role Phone Carlos Valdez MD Primary Care Provider [phone] Encounter Details Date Type Department Care Team (Late st Contact Info) Description 02/20/2013 External Results Cardiology at [address] [phone] Carlos Valdez MD [address] [place] [address] [address] Social History Tobacco Use Types Packs/Day Years [...] Encounter Non-Invasive [place] [address] Arrived documented as of this encounter Procedures Procedure Name Priority Date/Time Associated Diagnosis Comments EP DEVICE SCAN Routine 02/12/2013 documented in this encounter Results * Scan Doc: EP Device (02/12/2013) Anatomical Region Laterality Modality Other Carlos Valdez MD MEDIA MGR SCAN EXT O RDR/RSLT documented in this encounter Visit Diagnoses Not on filedocumented in this encounter Care Teams Wrister Relationship Specialty Start Date End Date Carlos Valdez MD [address] [place] [address] PCP - General 03/25/11 08/07/22 documented as of this encounter
--- OUTSIDE RECORDS SUMMARY | 2023-12-11 18:47 | XMS_ITS | Encounter Summary ---
Author Organization [facility] Address [facility] [place] [address] Care Team Providers Care Cabin Equipment Supervisor Name Role Phone Carlos Valdez MD Primary Care Provider [phone] Encounter Details Date Type Department Care Team (Latest Contact Info) Description 04/02/2013 2:31 PM EST - 04/02/2013 11:59 PM [facility] Hospital Encounter Non-[place] [phone] CARDIO, ECHO SIXTY MIN APPT None Charbel Naqvi MD [facility] [place] [address] Heart failure, unspecified Discharge Disposition: Home Social [...] Sig Dispensed Refills Start Date End Date durymgc-rarwuyugsxlml-ginq eine (EXCEDRIN MIGRAINE) 250-250-65 mg per tablet [...] tablet 0 01/11/2011 COREG CR 40 mg [id number]:Heart failure,Non-ischemic cardiomyopathy TAKE 1 CAPSULE (40MG) BY MOUTH DAILY 90 capsule 3 02/01/2013 01/30/2014 losartan (COZAAR) 50 mg tabletIndications:Other primary cardiomyopathies Take 1 tablet by mouth daily. 30 tablet 3 08/17/2012 08/19/2013 documented as of this encounter Plan of Treatment Upcoming Encounters Date Type Department Care Team (Late st Contact Info) Description 02/26/2024 10:00 AM EST Hospital Encounter Non-[place] [address] Arrived documented as of this encounter Procedures Procedure Name Priority Date/Time Associated Diagnosis Comments ECHOCARDIOGRAM TRANSTHORACIC Routine 04/02/2013 2:50 PM EST Heart failure, unspecified documented in this encounter Results * Echocardiogram Transthoracic(Leb) (04/02/2013 2:50 PM EST) EF 51 HEART[facility] SYSTEM Anatomical Region Laterality Modality Other 04/02/2013 Narrative 04/02/2013 3:38 PM EST Procedure: ? Transthoracic Echocardiogram Patient: ? SADIEKIMBERLY Mancilla ?(Age): 1945(67) Med Rec#: ?[id number] ? Sex: ?M ? [place] ? Ht / Wt: ??201(cm)/102.5(k Pt. Loc: ? Echo Lab ? BSA: ?2.4 Study Date: ?04/02/2013 ? Pt. Type: Outpatient Tape: ?GE3 ? Referring: Charbel Naqvi ([id number]) Forming Press Operator: Lyndsey Dawn Diagnosis: ??Pericardial effusion (423.9) CPT Code(s): ??Echo LTD (77722), Indication(s): ??Pericardial effusion, F/U Rhythm: HR ?BP ?122/70 ?? SUMMARY: 1. Limited echocardiogram. ?? 2. The pericardium appears normal and there is no evidence of a pericardial effusion. 3. Global left ventricular systolic function is mildly reduced. ??The quantitative left ventricular ejection fraction by biplane Ramirez's method is 51%. ??There is diffuse hypokinesis present. 4. The inferior vena cava appears normal in size. 5. See remainder of report for additional findings. FINDINGS: Left Ventricle ?The left ventricular chamber size is normal. ?Global left ventricular systolic function is mildly reduced. ?The quantitative left ventricular ejection fraction by biplane Ramirez's method is 51%. ?There is diffuse hypokinesis present. ?The ??basal anteroseptal, basal anterior, basal anterolateral, basal inferolateral, basal inferior, basal inferoseptal, mid anteroseptal, mid anterior, mid anterolateral, mid inferolateral, mid inferior, mid inferoseptal, apical septal, apical anterior, apical lateral and apical inferior wall segments are hypokinetic. Pericardium ?The pericardium appears normal and there is no evidence of a pericardial effusion. Venous ?The inferior vena cava appears normal in size. ?There is a greater than 50% respiratory change in the inferior vena cava dimension. Misc ?See remainder of report for additional findings. ?Two-dimensional echo performed. Wall Motion: Segment Name ?Rest ? Base-Anteroseptal ?? Hypokinetic ? Base-Anterior ? Hypokinetic ? Base-Anterolateral ??Hypokinetic ? Base-Posterolateral Hypokinetic ? Base-Inferior ? Hypokinetic ? Base-Inferoseptal ?? Hypokinetic ? Mid-Anteroseptal ?Hypokinetic ? Mid-Anterior ?Hypokinetic ? Mid-Anterolateral ?? Hypokinetic ? Mid-Posterolateral ??Hypokinetic ? Mid-Inferior ?Hypokinetic ? Mid-Inferoseptal ?Hypokinetic ? [place]-Septal ? Hypokinetic ? [place]-Anterior ? Hypokinetic ? [place]-Lateral ?Hypokinetic ? [place]-Inferior ? Hypokinetic ? [place]-Tip ?Hypokinetic ? This report has been electronically signed by: Charbel Naqvi. ? 04/02/2013 15:38:15 Images reviewed and interpretation verified [facility] Cardiac Ultrasound Laboratory Procedure Note Charbel Naqvi MD - 04/02/2013 Procedure: Transthoracic Echocardiogram Patient: PORSCHE ROBERTS(Age): 1945(67) Med Rec#: [id number] Sex: M [place] [facility] Ht / Wt: 201(cm)/102.5(k Pt. Loc: Echo Lab BSA: 2.4 Study Date: 04/02/2013 Pt. Type: Outpatient Tape: GE3 Referring: Charbel Naqvi ([id number]) Forming Press Operator: Lyndsey Dawn Diagnosis: Pericardial effusion (423.9) CPT Code(s): Echo LTD (89335), Indication(s): Pericardial effusion, F/U Rhythm: HR BP 122/70 SUMMARY: 1. Limited echocardiogram. 2. The pericardium [...] The left ventricular chamber size is normal. Global left ventricular systolic function is mildly reduced. The quantitative left ventricular ejection fraction by biplane Ramirez's method is 51%. There is diffuse hypokinesis present. The basal anteroseptal, basal anterior, basal anterolateral, basal inferolateral, basal inferior, basal inferoseptal, mid anteroseptal, mid anterior, mid anterolateral, mid inferolateral, mid inferior, mid inferoseptal, apical septal, apical anterior, apical lateral and apical inferior wall segments are hypokinetic. Pericardium The pericardium appears normal and there is no evidence of a pericardial effusion. Venous The inferior vena cava appears normal in size. There is a greater than 50% respiratory change in the inferior vena cava dimension. Misc See remainder of report for additional findings. Two-dimensional echo performed. Wall Motion: Segment Name Rest Base-Anteroseptal Hypokinetic Base-Anterior Hypokinetic Base-Anterolateral Hypokinetic Base-Posterolateral Hypokinetic Base-Inferior Hypokinetic Base-Inferoseptal Hypokinetic Mid-Anteroseptal Hypokinetic Mid-Anterior Hypokinetic Mid-Anterolateral Hypokinetic Mid-Posterolateral Hypokinetic Mid-Inferior Hypokinetic Mid-Inferoseptal Hypokinetic [place]-Septal Hypokinetic [place]-Anterior Hypokinetic [place]-Lateral Hypokinetic [place]-Inferior Hypokinetic [place]-Tip Hypokinetic This report has been electronically signed by: Charbel Naqvi 04/02/2013 15:38:15 Images reviewed and interpretation verified [facility] Cardiac Ultrasound [facility] Brady Ugarte MD ECHO ORDERABLES documented in this encounter Visit Diagnoses Diagnosis Heart failure, unspecified documented in this encounter Care Teams Cabin Equipment Supervisor Relationship Specialty Start Date End Date Carlos Valdez MD [address] [place] [address] PCP - General 03/25/11 08/07/22 documented as of this encounter
--- OUTSIDE RECORDS SUMMARY | 2023-12-11 18:47 | XMS_ITS | Encounter Summary ---
[place] [address] Care Team Providers Care Hydraulic Hammer Operator Name Role Phone Charli Jaramillo MD Primary Care Provider [phone] Encounter Details Date Type Department Care Team (Late st Contact Info) Description 04/02/2013 1:40 PM EST Follow-Up Cardiology at [address] [address] Mary Perez, SONIA [address] [place] [address] Other primary cardiomyopathies; Heart failure, unspecified; Pericarditis; Heart failure chronic systolic dysfunction Discharge Disposition: Home Social History Tobacco Use [...] Sign Reading Time Taken Comments Blood Pressure 122/70 04/02/2013 1:43 PM EST Pulse 69 04/02/2013 1:43 PM EST Temperature - - Respiratory Rate - - Oxygen Saturation 96% 04/02/2013 1:43 PM EST Inhaled Oxygen Concentration - - Weight 102.5 kg (226 lb) 04/02/2013 1:43 PM EST Height 200.7 cm (6' 7) 04/02/2013 1:43 PM EST Body Mass Index 25.46 04/02/2013 1:43 PM EST documented in this encounter Progress Notes * Mary Perez, COMMUNITY REPRESENTATIVE - 04/02/2013 4:11 PM EST Images from the original note were not included. [facility] [place] [address] [address] CARDIOMYOPATHY/HEART FAILURE SERVICE OUTPATIENT CLINIC NOTE Jatinder Morrell 04/02/2013 Primary Care Provider: CHARLI JARAMILLO MD Referring Provider: Charli Jaramillo CHIEF COMPLAINT: No chief complaint on file. HISTORY OF PRESENT ILLNESS: Jatinder Morrell is a 67 y.o. patient seen inscheduled follow [place] [facility] [place] [facility]. He underwent upgrade to a APPEALS SPECIALIST-D device Feb 18. He has had an eventful year medically, with diagnosisof a PE last spring following prolonged care travel; he then underwent insertion of a pacemaker forcomplete heart block. SUbsequently he had ongoing intermittent chest discomfort, malaise, shortnessof breath and was ultimately diagnosed with pericarditis, with a very elevated CRP and ESR. He tookcolchicine starting around the 18 of August, had some issues with diarrhea and cut the dose to daily, then finally discontinued at some point between October and Early Dec. He also completed his courseof coumadin for his PE. He says he has been able to go out and do his 2 mile walk again; denies heart failure sx (OND, orthopnea, abd bloat or LE edema) denies SOB or CORNEJO. He does have intermittent (random) episodes of chest discomfort that can last even a few hours- he takes ibuprofen and it goes away. It feels like his pericarditis symptoms, but in a more limited way, with quick resolution with NSAID. Yesterday, he felt really lousy, malaise, with more chest discomfort. He says it felt like his pericarditis again. No fevers, chills or sweats. No viral prodrome. PAST MEDICAL HISTORY: Reviewed and updated as appropriate in the medical record. Patient Active Problem List Diagnosis Code ??? Non-ischemic cardiomyopathy 425.4 ??? Heart failure chronic systolic dysfunction 428.9 ??? Alcohol use V69.8 ??? LBBB (left bundle branch block) 426.3 ??? Complete heart block 426.0 ??? HX SUDDEN CARDIAC ARREST V12.53 ??? Pericarditis 423.9 ??? Pulmonary embolism 415.19 ??? 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 786.50 ??? Biventricular ICD (implantable cardiac defibrillator) in place V45.02 Patient Active Problem List Diagnosis ??? Biventricular ICD (implantable cardiac defibrillator) in place 02/19/2013 Cardiac Resynchronization Therapy ICD Upgrade (explant of pacemaker pulse generator), peripheral Subclavian Venography, Cinefluoroscopy, pacemaker pocket revision and defibrillation safety margin testing, under General anesthesia Indication: Cardiomopathy with congestive heart failure and ventricular dyssynchrony, ventricular pacing New Ventricular electrode: [employer] Model# 7122Q-58 cm Serial #[id number] Implanted 02/18/2013 Bipolar, steroid-tipped, active-fixation DF-4 lead Access: Axillary vein Location: Right ventricular apical septum (old) Atrial electrode: Medtronic, Model # 5568-52 cm Serial # [id number] Implanted 06/14/2012 Bipolar, steroid-tipped, active-fixation IS-1 lead Access: Not known Location Right atrium anterolateral Coronary sinus electrode: [employer] 1458Q/86 Serial number [id number] Implanted 02/18/2013 Quadripolar passive active fixation lead Access: Subclavian vein Location: Coronary sinus, posterolateral vein Pulse generator: [employer] [id number] Serial number [id number] Implanted 02/18/2013 APPEALS SPECIALIST ICD Location: Subcutaneous Old ventricular lead : Medtronic 5075 Serial number [id number] (capped 02/18/2013) Old pulse generator: Medtronic ADDR01 Serial number [id number] (removed 02/18/2013) Detection and termination of ventricular [...] Trivial pleural effusion on chest x-ray Elevated OXO=086 a-->3.8 AN ESR=53 on index presentation --> [...] with left bundle branch block, PVCs, QRS frbazblt=347 msec. Symptomatic CHB 06/13/12- s/p DDDR pacemaker [...] Carvedilol ROSY/ARB Yes Losartan Spironolactone no Previously [id number], d/c secondary to side effects (hives), no rechallenge Amlodipine Yes Initiated 05/30 LA AFIB? no Anticoagulated AICD/Type APPEALS SPECIALIST-D EF dropped to 35%- 04/02/13 back up [...] use ??? LBBB (left bundle branch block) OGX=846 ms New Symptomatic CHB 05/30-->declined pacer at initial presentation while traveling -S/p temp pacer-->Permanent DDDR pacer -LVEF~ 50-55%, ICD not indicated, but at risk for V paced rhythm dyssynchrony ??? Complete heart block Symptomatic bradycardia with CHB and LBBB, HR in the 20-30s Initially seen at a local ER, pacemaker recommended, but declined While in [facility], [place], called [facility] in cath report, but likely symptomatic bradycardia and CHB CHB- s/p temporary pacer 06/13/2012 - cath: Angiogram, mild irregularities of LAD, LCXF dominant, 30-40% mid RCA - No LV gram done S/p DDD-R Pacemaker Medtronic Adapta Dual Chamber Model # [id number], Serial number [id number] -[place], [place] ??? HX SUDDEN CARDIAC ARREST Probably [...] Allergen Reactions ??? Lasix (Furosemide) Rash MEDICATIONS: Outpatient Prescriptions Marked as Taking for the 04/02/13 encounter (Follow-Up) with Mary Perez APRN Medication Sig Dispense Refill ??? atorvastatin (LIPITOR) 10 mg tablet Take 10 mg by mouth daily. ??? sbcuwcj-wfkwufdlcjtrd-scdwnguw (EXCEDRIN MIGRAINE) 250-250-65 mg per tablet Take 1 tablet by mouth every 6 hours as needed. ??? COREG CR 40 mg CM24 TAKE 1 CAPSULE (40MG) BY MOUTH DAILY 90 capsule 3 ??? ibuprofen (ADVIL;MOTRIN) 200 mg tablet Take 400 mg by mouth every 8 hours. ??? hydroCODone-acetaminophen (VICODIN) 5-500 mg per tablet Take 1 tablet by mouth every 6 hours asneeded. ??? losartan (COZAAR) 50 mg tablet Take 1 tablet by mouth daily. 30 tablet 3 ??? bumetanide (BUMEX) 0.5 mg tablet Take 1 tablet by mouth daily. 30 tablet 0 ??? sildenafil (VIAGRA) 100 mg tablet Take 1 tablet by mouth once as needed. 10 tablet 0 ??? zolpidem (AMBIEN) 10 mg tablet Take 1 tablet by mouth nightly. 30 tablet 0 REVIEW OF SYSTEMS: Patient-reported scores from the [...] Signs: Wt Readings from Last 3 Encounters: 04/02/13 102.513 kg (226 lb) 02/18/13 100.24 kg (220 lb 15.8 oz) 02/18/13 100.24 kg (220 lb 15.8 oz) Temp Readings from Last 3 Encounters: 02/19/13 36.8 ??C (98.2 ??F) Oral 02/19/13 36.8 ??C (98.2 ??F) Oral 02/11/13 35.6 ??C (96 ??F) Temporal BP Readings from Last 3 Encounters: 04/02/13 122/70 02/19/13 124/82 02/19/13 124/82 Pulse Readings from Last 3 Encounters: 04/02/13 69 02/19/13 76 02/19/13 76 SpO2: [96 %] General -Alert, oriented, NAD. Affect appropriate. Well-developed male HEENT -unremarkable, no xanthelasma, arcus, icterus. PERRLA, moist mucous membranes. Dentition good. Small oropharynx Neck -without lymphadenopathy, mass, thyromegaly Carotid upstrokes are brisk Chest -site well healed, no ecchymoses- 1.5 x 1 cm raised red plaque above device Lungs -clear without rales or rhonchi, no [...] Pulses 1-2+ Neuro -nonfocal LAB STUDIES: Recent Results (from the past 72 hour(s)) BASIC METABOLIC PANEL (NON-FASTING) Component Value Range Glucose Lvl 133 60 - 199 mg/dL BUN 21 (*) 10 - 20 mg/dL Creatinine 1.05 0.80 - 1.50 mg/dL Sodium 139 135 - 145 mmol/L Potassium 4.1 3.5 - 5.0 mmol/L Chloride 102 98 - 107 mmol/L CO2 26 22 - 31 mmol/L Anion Gap 11 5 - 15 mmol/L Calcium 9.5 8.5 - 10.5 mg/dL Estimated GFR >60 >=60 PRO-BRAIN NATRIURETIC PEPTIDE Component Value Range ProBNP 231 (*) <=125 pg/mL CBC (WITH DIFF) Component Value Range WBC 9.3 4.0 - 10.0 x10(3)/mcL RBC 5.44 4.63 - 6.08 x10(6)/mcL Hemoglobin 15.8 13.7 - 17.5 gm/dL Hematocrit 46.0 40.0 - 51.0 % MCV 84.6 79.0 - 92.0 fL MCH 29.0 25.6 - 32.2 pg MCHC 34.3 32.0 - 36.5 gm/dL Platelets 182 145 - 370 x10(3)/mcL RDWSD 37.7 35.0 - 46.0 fL RDWCV 12.5 10.9 - 14.4 % MPV 10.6 9.0 - 12.0 fL HIGH SENSITIVITY CRP Component Value Range CRP High Sens 6.7 SEDIMENTATION RATE Component Value Range Sed Rate 4 0 - 15 mm/hr DIFFERENTIAL, AUTOMATED Component Value Range Neutrophils % 61.0 34.0 - 71.0 % Neutr Abs (ANC) 5.67 1.50 - 6.30 x10(3)/mcL Lymphocytes % 29.7 19.0 - 53.0 % Lymphocytes Abs 2.8 1.0 - 3.6 x10(3)/mcL Monocytes % 7.3 4.0 - 13.0 % Monocyte Abs 0.7 0.2 - 1.0 x10(3)/mcL Eosinophils % 1.6 0.0 - 7.0 % Eosinophils Abs 0.2 0.0 - 0.5 x10(3)/mcL Basophils % 0.3 0.0 - 2.0 % Basophils Abs 0.0 0.0 - 0.2 x10(3)/mcL Immature Gran % 0.10 0.00 - 0.66 % Elva Gran Abs 0.01 0.00 - 0.05 x10(3)/mcL CARDIAC ENZYMES Component Value Range Troponin-T <0.03 <=0.03 ng/mL CK, Total 58 0 - 200 unit/L ECHOCARDIOGRAM TRANSTHORACIC(LEB) Component Value Range EF 51 Results for JATINDER MORRELL ( ) as of 12/26/2012 16:49 Ref. Range 01/11/2012 11:01 06/26/2012 07:32 07/10/2012 10:58 08/17/2012 08:44 12/26/2012 15:41 04/02/13 ProBNP Latest Range: <=125 pg/mL 240 (H) 234 (H) 1094 (H) 980 (H) 377 (H) 231 Results for JATINDER MORRELL ( ) as of 12/26/2012 16:49 Ref. Range 08/17/2012 08:44 08/24/2012 11:54 09/13/2012 08:33 10/16/2012 09:59 12/26/2012 15:41 04/02/13 Sed Rate Latest Range: 0-15 mm/hr 58 (H) 35 (H) 13 4 3 4.0 Results for JATINDER MORRELL ( ) as of 12/26/2012 16:49 08/17/2012 08:44 08/24/2012 11:54 09/13/2012 08:33 10/16/2012 09:59 11/13/2012 07:55 12/26/2012 15:41 1.14.14 CRP High Sens 243.7 16.6 10.2 3.8 6.1 2.5 6.7 CARDIAC STUDIES Brief device download: BiV paced 99%- no events. Limited echo today 1. Limited echocardiogram. 2. The pericardium appears normal and there is no evidence of a pericardial effusion. 3. Global left ventricular systolic function is mildly reduced. The quantitative left ventricular ejection fraction by biplane Ramirez's method is 51%. There is diffuse hypokinesis present. 4. The inferior vena cava appears normal in size. 5. See remainder of report for additional findings. Echo 07/20/12 BP 129/73 SUMMARY: 1. The [...] is no significant change in LV function. PROBLEMS: Pt with known nonischemic cardiomyopathy- In last year: developed CHB; had DDD-R pacer placed in [place]- SOB-> dxed with PE by CT scan- on coumadin until 12/2012 Following pacer (about 2 weeks later) pt developed sx ultimately diagnosed as pericarditis, with elevated CRP,ESR and echo Changes that have resolved Upgrade to APPEALS SPECIALIST-D 02/18/13 for drop in EF and LBBB Now with sx reminiscent of his pericarditis (which never seemed to totally resolve); with no SOB orDOE, less suspicious for recurrent PE CRP and ESR remain low; no echo evidence of effusion; troponin and CK normal RECOMMENDATIONS: 1. MEDICATIONS: The patient's medication list was updated and new Rxs given as needed. The medication list was reviewed with the patient, rationale for therapy and potential side effects to be aware of discussed. - ibuprofen PRN, patient informed to take medications with meals 2. The following labs, referrals or other testing advised: - expectant- will watch and monitor sx- 3. COUNSELING: Specific issues or questions addressed on this visit: - As above - Reviewed his laboratories, and recent clinical course and available discharge documents from his recent hospitalization in [place] - - reviewed limited echocardiogram 4. Cardiology follow-up scheduled for: - June to coordinate with his first device check.Earlier as clinically indicated - PCP and other subspecialists as previously arranged documented in this encounter Plan of Treatment Upcoming Encounters Date Type Department Care Team (Late st Contact Info) Description 02/26/2024 10:00 AM EST Hospital Encounter Non-Invasive [place] [address] Arrived documented as of this encounter Procedures Procedure Name Priority Date/Time Associated Diagnosis Comments DIFFERENTIAL, AUTOMATED STAT 04/02/2013 2:42 PM EST CARDIAC ENZYMES ([facility]) Routine 04/02/2013 2:42 PM EST SEDIMENTATION RATE Routine 04/02/2013 2: 42 PM EST Pericarditis CBC (WITH DIFF) STAT 04/02/2013 2:42 PM EST Pericarditis CRP, CARDIAC RISK (HS CRP) Routine 04/02/2013 2:42 PM EST Pericarditis PRO-BRAIN NATRIURETIC PEPTIDE STAT 04/02/2013 1:13 PM EST Other primary cardiomyopathies Heart failure, unspecified BASIC METABOLIC PANEL STAT 04/02/2013 1:13 PM EST Other primary cardiomyopathies Heart failure, unspecified documented in this encounter Results * Echocardiogram Transthoracic(Leb) (04/02/2013 2:50 PM EST) EF 51 HEARTLAB SYSTEM Anatomical Region Laterality Modality Other 04/02/2013 Narrative 04/02/2013 3:38 PM EST Procedure: ? Transthoracic Echocardiogram Patient: ? PORSCHE Mancilla ?(Age): 1945(67) Med Rec#: ?[id number] ? Sex: ?M ? [place] [place] Ht / Wt: ??201(cm)/102.5(k Pt. Loc: ? Echo Lab ? BSA: ?2.4 Study Date: ?04/02/2013 ? Pt. Type: Outpatient Tape: ?GE3 ? Referring: Charbel Naqvi ([id number]) Relocation Manager: Lyndsey Dawn Diagnosis: ??Pericardial effusion (423.9) CPT Code(s): ??Echo LTD (32539), Indication(s): ??Pericardial effusion, F/U Rhythm: HR ?BP [...] ? Mid-Inferior ?Hypokinetic ? Mid-Inferoseptal ?Hypokinetic ? [place]-Septal ? Hypokinetic ? [place]-Anterior ? Hypokinetic ? [place]-Lateral ?Hypokinetic ? [place]-Inferior ? Hypokinetic ? [place]-Tip ?Hypokinetic ? This report has been electronically signed by: Charbel Naqvi. ? 04/02/2013 15:38:15 Images reviewed and interpretation verified [facility] Cardiac Ultrasound Laboratory Procedure Note Charbel Naqvi MD - 04/02/2013 Procedure: Transthoracic Echocardiogram Patient: PORSCHE ROBERTS(Age): 1945(67) Med Rec#: [id number] Sex: M [place] [facility] Ht / Wt: 201(cm)/102.5(k Pt. Loc: Echo Lab BSA: 2.4 Study Date: 04/02/2013 Pt. Type: Outpatient Tape: GE3 Referring: Charbel Naqvi ([id number]) Relocation Manager: Lyndsey Dawn Diagnosis: Pericardial effusion (423.9) CPT Code(s): Echo LTD (84042), Indication(s): Pericardial effusion, F/U Rhythm: HR BP [...] Hypokinetic Mid-Posterolateral Hypokinetic Mid-Inferior Hypokinetic Mid-Inferoseptal Hypokinetic [place]-Septal Hypokinetic [place]-Anterior Hypokinetic [place]-Lateral Hypokinetic [place]-Inferior Hypokinetic [place]-Tip Hypokinetic This report has been electronically signed by: Charbel Nqavi 04/02/2013 15:38:15 Images reviewed and interpretation verified [facility] Cardiac Ultrasound Laboratory Brady Ugarte MD ECHO ORDERABLES * Cardiac Enzymes (04/02/2013 2:42 PM EST) Troponin-T <0.03 <=0.03 ng/mL [facility] Comment: 0.03 ng/mL: Represents the 99th percentile upper reference limit for normals. >0.03 ng/mL: Elevated cardiac troponin T level indicative of myocardial damage. Diagnosis of acute, evolving or recent LA requires a typical rise and gradual fall of cTnT with at least ONE of the following: a) Ischemic symptoms b) Development of pathologic Q waves on the ECG c) ECG changes indicative of eschemia (S-T segment elevation/depression) d) Coronary artery intervention Serial bloods should be obtained for testing on admission, at 6 to 9 hrs and again at 12 to 24 hrs if earlier samples are negative and the clinical index of suspicion is high. Reference: [Myocardial infarction redefined? a consensus document of the Joint Society of Cardiology/[place] College of Cardiology Committee for the redefinition of myocardial infarction. ??Journal of the [place] College of Cardiology 2000; 36: 959-969] Creatine Kinase 58 0 - 200 unit/L [facility] ONEILL Blood specimen (specimen) 04/02/2013 2:42 PM EST 04/02/2013 3:02 PM EST Narrative Resulting Agency Comment Spec In Lab Charbel Naqvi MD CHEMISTRY ORDERABLES [facility] * Differential, Automated (04/02/2013 2:42 PM EST) Neutrophil % 61.0 34.0 - 71.0 % [facility] Neutrophil Absolute 5.67 1.50 - 6.30 x10(3)/mcL [facility] MILL[facility] Lymph % 29.7 19.0 - 53.0 % [facility] MILL[facility] Lymphocytes Abs 2.8 1.0 - 3.6 x10(3)/mcL [facility] Monocyte % 7.3 4.0 - 13.0 % [facility]ILL[facility] Monocyte Abs 0.7 0.2 - 1.0 x10(3)/mcL [facility]ILLEN[facility] Eos % 1.6 0.0 - 7.0 % [facility] MILLENNI[facility] Eosinophils Abs 0.2 0.0 - 0.5 x10(3)/mcL [facility]ILLENNI[facility] Basophil % 0.3 0.0 - 2.0 % [facility] MILLENNIUM Baso Absolute 0.0 0.0 - 0.2 x10(3)/mcL [facility] MILLENNI[facility] Immature Gran % 0.10 0.00 - 0.66 % [facility] Comment: Immature granulocytes(IG's)percentage and absolute count will include metamyelocytes, myelocytes, and promyelocytes. Blood smears from CBCs yielding IG's will be scanned manually for concordance. If this scan disagrees with the automated IG or if promyelocytes are noted, a manual differential will be performed. Immature Gran Absolute 0.01 0.00 - 0.05 x10(3)/mcL [facility]ANT[facility] Blood specimen (specimen) 04/02/2013 2:42 PM EST 04/02/2013 2:52 PM EST Charbel Naqvi MD HEMATOLOGY ORDERABLE S [facility] * Sedimentation rate (04/02/2013 2:42 PM EST) Sedimentation Rate Automated 4 0 - 15 mm/hr [facility] Blood specimen (specimen) 04/02/2013 2:42 PM EST 04/02/2013 2:52 PM EST Narrative Resulting Agency Comment Spec In Lab Charbel Naqvi MD HEMATOLOGY ORDERABLE S Performing Organization Address [facility] Co de Phone Number NELSON ONEILL * High Sensitivity CRP (04/02/2013 2:42 PM EST) Pathologist [facility] C-Reactive Protein High Sensitivity 6.7 mg/L [facility] Comment: Interpretations: 1) For accurate cardiac [...] prevention. ??Circulation 2003; [id number]:[id number] Blood specimen (specimen) 04/02/2013 2:42 PM EST 04/02/2013 2:52 PM EST Narrative Resulting Agency Comment Spec In Lab Charbel Naqvi MD CHEMISTRY ORDERABLES Performing Organization Address [facility] Co de Phone Number NELSON ONEILL * CBC (with Diff) (04/02/2013 2:42 PM EST) Pathologist [facility] White Blood Cell 9.3 4.0 - 10.0 x10(3)/mcL [facility] Red Blood Cell 5.44 4.63 - 6.08 x10(6)/mcL [facility] MILLENNIUM Hemoglobin 15.8 13.7 - 17.5 gm/dL [facility]ILL[facility] Hematocrit 46.0 40.0 - 51.0 % [facility] MILLENNIUM Mean Cell Volume 84.6 79.0 - 92.0 fL [facility] MILLENNIUM Mean Cell Hemoglobin 29.0 25.6 - 32.2 pg [facility] MILLENNIUM Mean Cell Hemoglobin Concentration 34.3 32.0 - 36.5 gm/dL [facility] MILLENNIUM Platelet 182 145 - 370 x10(3)/mcL [facility] MILLENNIUM RDW Standard Deviation 37.7 35.0 - 46.0 fL C[facility] MILLENNIUM RDW coefficient of variation 12.5 10.9 - 14.4 % [facility] MILLENNIUM Mean Platelet Volume 10.6 9.0 - 12.0 fL [facility] MILLENNI[facility] Blood specimen (specimen) 04/02/2013 2:42 PM EST 04/02/2013 2:52 PM EST Narrative Resulting Agency Comment Spec In Lab Charbel Naqvi MD HEMATOLOGY ORDERABLE S Performing Organization Address [facility] Co de Phone Number [facility] * (ABNORMAL) pro-Brain Natriuretic Peptide (04/02/2013 1:13 PM EST) Pathologist [facility] NT-proBNP 231(H) <=125 pg/mL [facility] MILLENNIUM Blood specimen (specimen) 04/02/2013 1:13 PM EST 04/02/2013 1:16 PM EST Narrative Resulting Agency Comment Spec In Lab Brady Ugarte MD CHEMISTRY ORDERABLES Performing Organization Address [facility] de Phone Number [facility] * (ABNORMAL) Basic Metabolic Panel (non-fasting) (04/02/2013 1:13 PM EST) [facility] Glucose 133 60 - 199 mg/dL [facility] Comment:Diabetes: >=200 mg/d L plus symptoms Blood Urea Nitrogen 21(H) 10 - 20 mg/dL [facility] MILLENNIUM Creatinine 1.05 0.80 - 1.50 mg/dL [facility] Comment: Please note that the pediatric reference intervals supplied above were not validated at [facility]. Results from pediatric patients should be interpreted in conjunction to the patient's age, height and muscle mass. Sodium 139 135 - 145 mmol/L [facility] Potassium 4.1 3.5 - 5.0 mmol/L [facility] MILLENNIUM Comment: Please note: ??Patients with WBC >100,000 may have falsely elevated Potassium levels. ??For accurate Potassium quantification in these patients send serum separator tube (gold top) for subsequent determinations. ??Contact the Clinical Chemistry Laboratory if there are any questions. Chloride 102 98 - 107 mmol/L [facility] Carbon Dioxide 26 22 - 31 mmol/L [facility] Anion Gap 11 5 - 15 mmol/L [facility] Calcium 9.5 8.5 - 10.5 mg/dL [facility]ILL[facility] Est [...] internet browser. http://www.nkdep.nih.gov/lab-evaluation.shtml http://www.kidney.org/professionals/ Blood specimen (specimen) 04/02/2013 1:13 PM EST 04/02/2013 1:16 PM EST Narrative Resulting Agency Comment Spec In Lab Brady Ugarte MD CHEMISTRY ORDERABLES [facility] documented in this encounter Visit Diagnoses Diagnosis Other primary cardiomyopathies Heart failure, unspecified Pericarditis Unspecified disease of pericardium Heart failure chronic systolic dysfunction Heart failure, unspecified Heart failure, unspecified documented in this encounter Care Teams Hydraulic Hammer Operator Relationship Specialty Start Date End Date Charli Jaramillo MD [address] [place] [address] PCP - General 03/25/11 08/07/22 documented as of this encounter
--- OUTSIDE RECORDS SUMMARY | 2023-12-11 18:47 | XMS_ITS | Encounter Summary ---
Author Organization Formerly [facility] [place] [address] Care Team Providers Care Batch Plant Operator Name Role Phone Charli Jaramillo MD Primary Care Provider [phone] Reason for Visit * Reason Comments Cardiomyopathy Congestive Heart Failure Irregular Heart Beat Encounter Details Date Type Department Care Team (Late st Contact Info) Description 02/03/2014 1:40 PM EST Follow-Up Cardiology at [address] [address] Ciaran Medel RN Kono, Alan T, MD [facility] [place] [address] Other primary cardiomyopathies; Heart failure, unspecified; Pulmonary embolism; Pericarditis; Heart failure, chronic, systolic; Non-ischemic cardiomyopathy Discharge Disposition: Home Social History [...] Time Taken Comments Blood Pressure 122/82 02/03/2014 1:33 PM EST Pulse 72 02/03/2014 1:33 PM EST regular, radial Temperature - - Respiratory Rate - - Oxygen Saturation 96% 02/03/2014 1:3 3 PM EST Inhaled Oxygen Concentration - - Weight 107 kg (236 lb) 02/03/2014 1:33 PM EST Height 198.1 cm (6' 5.99) 02/03/2014 1 :33 PM EST Body Mass Index 27.28 02/03/2014 1:33 PM EST documented in this encounter Patient Instructions * Patient Instructions* Brady Ugarte MD - 02/03/2014 2:27 PM EST Overall, you have been stable from a cardiac standpoint. You indicated that you have had occasionalepisodes of chest pain relieved with taking a nonsteroidal anti-inflammatory agent. Echocardiography today, formal report still pending, demonstrates preserved cardiac function, and no evidence of pericardial effusion. Laboratory tests today demonstrates normal blood counts, electrolytes, kidney function, and liver function tests. Your marker for heart failure is low. Device interrogation today demonstrates normal pacemaker function. Your 99% ventricular paced. There is no evidence of fluid overload and with no arrhythmia burden. Medication changes: None documented in this encounter Progress Notes * Brady Ugarte MD - 02/02/2014 4:17 PM EST Images from the original note were not included. [place] [address] [address] CARDIOMYOPATHY/HEART FAILURE SERVICE OUTPATIENT CLINIC NOTE Jatinder Morrell 02/03/2014 Primary Care Provider: CHARLI JARAMILLO MD Referring Provider: Charli Jaramillo CHIEF COMPLAINT: Chief Complaint Patient presents with ??? Cardiomyopathy ??? Congestive Heart Failure ??? Irregular Heart Beat HISTORY OF PRESENT ILLNESS: Jatinder Morrell is a 68 y.o. patient seen in routine follow [place] in [place] [facility], and in the interim, Mr. Morrell has been stable from a cardiac standpoint feeling well with no major complaints. He does have occasional chest pain which appears to be musculoskeletal often relieved withtaking nonsteroidal anti-inflammatory agents and resolving spontaneously. This is not associated wit h exertion and there may be some positional [...] normal although he has been cutting back on his producing with less travel that is work-related. He has not needed to take additional diuretic therapy. Other review of systems are negative. From his 07/11/13 visit with Xin Grewal: Last visit: 04/02 Feeling well post LEATHER BELT MAKER. Remains active and busy. Has occ fatigue, [...] EP and has been scheduled for elective LEATHER BELT MAKER- D upgrade with EF ~ 35 %and [...] reported to a local emergency room in [place]. He was told that he had a low heart rate in july need a pacemaker but he declined any further evaluation as he was asymptomatic. 2 weeks later, while [place], the patient felt weak, tired, with dizziness [...] available for my review. Since returning to [facility], thepatient actually feels well with no [...] this. There were no new medications or cctj-ngg-wbutktv therapy initiated during this timeframe. On discharge, [...] chronic systolic dysfunction 428.9 ??? Alcohol use [id number] ??? LBBB (left bundle branch block) 426.3 [...] [employer] Model# 7122Q-58 cm Serial #[id number] Implanted 02/18/2013 Bipolar, steroid-tipped, active-fixation DF-4 lead Access: Axillary vein Location: Right ventricular apical septum (old) Atrial electrode: Medtronic, Model # 5568-52 cm Serial # [id number] Implanted 06/14/2012 Bipolar, steroid-tipped, active-fixation IS-1 lead Access: Not known Location Right atrium anterolateral Coronary sinus electrode: [employer] 1458Q/86 Serial number [id number] Implanted 02/18/2013 Quadripolar passive active fixation lead Access: Subclavian vein Location: Coronary sinus, posterolateral vein Pulse generator: [employer] [id number] Serial number [id number] Implanted 02/18/2013 LEATHER BELT MAKER ICD Location: Subcutaneous Old ventricular lead : Medtronic 5075 Serial number [id number] (capped 02/18/2013) Old pulse generator: Medtronic ADDR01 Serial number [id number] (removed 02/18/2013) Detection and termination of ventricular [...] Trivial pleural effusion on chest x-ray Elevated QOB=097 a-->3.8 AN ESR=53 on index presentation --> [...] with left bundle branch block, PVCs, QRS lxnswgcg=314 msec. Symptomatic CHB 06/13/12- s/p DDDR pacemaker [...] Carvedilol ROSY/ARB Yes Losartan Spironolactone no Previously [id number], d/c secondary to side effects (hives), no rechallenge Amlodipine Yes Initiated 05/30 [place] AFIB? no Anticoagulated AICD/Type LEATHER BELT MAKER-D EF dropped to 35%- 04/02/13 back up [...] use ??? LBBB (left bundle branch block) GET=542 ms New Symptomatic CHB 05/30-->declined pacer at initial presentation while traveling -S/p temp pacer-->Permanent DDDR pacer -LVEF~ 50-55%, ICD not indicated, but at risk for V paced rhythm dyssynchrony ??? Complete heart block Symptomatic bradycardia with CHB and LBBB, HR in the 20-30s Initially seen at a local ER, pacemaker recommended, but declined While in ICU, [place], called [facility] in cath report, but likely symptomatic bradycardia and CHB CHB- s/p temporary pacer 06/13/2012 - cath: Angiogram, mild irregularities of LAD, LCXF dominant, 30-40% mid RCA - No LV gram done S/p DDD-R Pacemaker Medtronic Adapta Dual Chamber Model # ADDR01, Serial number [id number] -[place], [place] ??? HX SUDDEN CARDIAC ARREST Probably bradycardic induced, presenting with symptomatic CHB, and requiring defibrillation 05/2012 SOCIAL HISTORY: Reviewed and updated as appropriate in the medical record. The patient reports thathe quit smoking about 18 years ago. His smoking use included Cigarettes. He smoked 0.00 packs per day. He has never used smokeless tobacco. He reports that he drinks about 0.5 ounces of alcohol per week. He reports that he does not use illicit drugs. FAMILY HISTORY: Reviewed and updated as appropriate in the medical record. No family history on file. ALLERGIES: Reviewed and updated as appropriate in the medical record. Allergies Allergen Reactions ??? Lasix [Furosemide] Rash MEDICATIONS: Outpatient Prescriptions Marked as Taking for the 02/03/14 encounter (Follow-Up) with Brady Ugarte MD Medication Sig Dispense Refill ??? pravastatin (PRAVACHOL) 10 mg Tablet Take 10 mg by mouth daily. ??? COREG CR 40 mg Cap, Multiphasic Release 24 hr TAKE 1 CAPSULE DAILY 90 capsule 1 ??? losartan (COZAAR) 50 mg tablet take 1 tablet by mouth once daily 30 tablet 11 ??? mecxaud-qrfglgaaclaiz-zaxrsvgr (EXCEDRIN MIGRAINE) 250-250-65 mg per tablet Take [...] tablet by mouth nightly. 30 tablet 0 No Facility-Administered Medications for the 02/03/14 encounter (Follow-Up) with Brady Ugarte MD. REVIEW OF SYSTEMS: Review of Systems Pertinent Negatives or Positives General Denies Fever, chills, night sweats. Weight now down approximately 4 pounds now stable. Sleep habits [...] Signs: Wt Readings from Last 3 Encounters: 02/03/14 107.049 kg (236 lb) 02/03/14 107.049 kg (236 lb) 07/11/13 108.863 kg (240 lb) Temp Readings from Last 3 Encounters: 02/19/13 36.8 ??C (98.2 ??F) Oral 02/19/13 36.8 ??C (98.2 ??F) Oral 02/11/13 35.6 ??C (96 ??F) Temporal BP Readings from Last 3 Encounters: 02/03/14 122/82 02/03/14 122/82 07/11/13 130/76 Pulse Readings from Last 3 Encounters: 02/03/14 72 02/03/14 72 07/11/13 75 SpO2: [96 %] General -Alert, oriented, NAD. [...] past 72 hour(s)) BASIC METABOLIC PANEL (NON-FASTING) Result Value Range Glucose Lvl 98 60 - 199 mg/dL BUN 17 10 - 20 mg/dL Creatinine 0.85 0.80 - 1.50 mg/dL Sodium 141 135 - 145 mmol/L Potassium 4.2 3.5 - 5.0 mmol/L Chloride 101 98 - 107 mmol/L CO2 27 22 - 31 mmol/L Anion Gap 13 5 - 15 mmol/L Calcium 9.7 8.5 - 10.5 mg/dL Estimated GFR >60 >=60 PRO-BRAIN NATRIURETIC PEPTIDE Result Value Range ProBNP 150 (*) <=125 pg/mL HEMOGRAM Result Value Range WBC 8.8 4.0 - 10.0 x10(3)/mcL RBC 5.31 4.63 - 6.08 x10(6)/mcL Hemoglobin 16.0 13.7 - 17.5 gm/dL Hematocrit 45.9 40.0 - 51.0 % MCV 86.4 79.0 - 92.0 fL MCH 30.1 25.6 - 32.2 pg MCHC 34.9 32.0 - 36.5 gm/dL Platelets 191 145 - 370 x10(3)/mcL RDWSD 40.2 35.0 - 46.0 fL RDWCV 12.7 10.9 - 14.4 % MPV 11.0 9.0 - 12.0 fL DIFFERENTIAL, AUTOMATED Result Value Range Neutrophils % 60.7 Neutr Abs (ANC) 5.33 1.50 - 6.30 x10(3)/mcL Lymphocytes % 31.7 Lymphocytes Abs 2.8 1.0 - 3.6 x10(3)/mcL Monocytes % 5.4 Monocyte Abs 0.5 0.2 - 1.0 x10(3)/mcL Eosinophils % 1.8 Eosinophils Abs 0.2 0.0 - 0.5 x10(3)/mcL Basophils % 0.3 Basophils Abs 0.0 0.0 - 0.2 x10(3)/mcL Immature Gran % 0.10 Elva Gran Abs 0.01 0.00 - 0.05 x10(3)/mcL ProBNP Date Value Range Status 02/03/2014 150* <=125 pg/mL Final 07/11/2013 233* <=125 pg/mL Final 04/02/2013 231* <=125 pg/mL Final Results for JATINDER MORRELL ( ) as of 12/26/2012 16:49 Ref. Range 01/11/2012 11:01 06/26/2012 07:32 07/10/2012 10:58 08/17/2012 08:44 08/24/2012 11:54 09/13/201208:33 10/16/2012 09:59 12/26/2012 15:41 ProBNP Latest Range: <=125 pg/mL 240 (H) 234 (H) 1094 (H) 980 (H) 792 (H) 753 (H) 532 (H) 377 (H) Results for JATINDER MORRELL ( ) as of 12/26/2012 16:49 Ref. Range 08/17/2012 08:44 08/24/2012 11:54 09/13/2012 08:33 10/16/2012 09:59 12/26/2012 15:41 Sed Rate Latest Range: 0-15 mm/hr 58 (H) 35 (H) 13 4 3 Results for JATINDER MORRELL ( ) as of 12/26/2012 16:49 Ref. Range 08/17/2012 08:44 08/24/2012 11:54 09/13/2012 08:33 10/16/2012 09:59 11/13/2012 07:55 12/26/201215:41 CRP High Sens No range found 243.7 16.6 10.2 3.8 6.1 2.5 CARDIAC STUDIES Echo 07/20/12 BP 129/73 SUMMARY: [...] minute. PROBLEMS: Pulmonary embolism No recurrence off coumadin Pericarditis Occasional chestpain, resolved with NSAID periodical use Heart failure chronic systolic dysfunction Wellcompensated and euvolemic Biventricular ICD (implantable cardiac defibrillator) in place No device issues, or delivered therapies Apaced 86% Biv Paced>99% No fluid retention Non-ischemic cardiomyopathy Formal echo report pending, EF ~ 50% range ASSESSMENT: Overall, the patient has been stable and continues to do very well with clinical and laboratory improvement and resolution of his post pacer pericarditis. His overall LV systolic function improved with biventricular pacemaker as he was nearly 100% ventricular paced after his heart block and permanent pacemaker implant. He appears to be well compensated and euvolemic with good functional status. Overall clinical benefit with the medical and device therapy. He previously did not tolerate spironolactone. From his prior discussion: He continues to do well and [...] possible upgrade of his pacemaker to a LEATHER BELT MAKER-D. This could be related to his ventricular [...] medications, but may be a candidate for spironolactone if persistent LV systolic dysfunction he states that he was intolerant of this medication secondary to urticaria, although reviewing his [facility] chart, he was on spironolactone from 2001 for 2003, and it was discontinued somewhere between 2003- 2005. 2. The following labs, referrals or other testing advised: - echocardiogram-done - Routine laboratories- on ROSY 3. COUNSELING: Specific issues or questions addressed on this visit: - As above - I cautioned him to limit his alcohol use - Reviewed his laboratories, EKG, and recent clinical course and echo images/findings, device interrogation findings - reviewed his short-term and long-term prognosis, LEATHER BELT MAKER -D implant, rationale for followup - reviewed echocardiogram images personally 4. Cardiology follow-up scheduled for: - 6 Months or earlier as clinically indicated, Coordinate with EP cardiology and device interrogation - PCP and other subspecialists as previously arranged Brady Ugarte MD, [facility] videotape editor Cardiology Director, Cardiovascular Critical Care Single Stayer Operator, Advanced Heart Failure and Cardiomyopathy Program [facility] documented in this encounter Miscellaneous Notes * Assessment & Plan Note - Brady Ugarte MD - 02/03/2014 2:26 PM ESTAssociated Problem(s): Non-ischemic cardiomyopathy Formal echo report pending, EF ~ 50% range * Assessment & Plan Note - Brady Ugarte MD - 02/03/2014 2:21 PM ESTAssociated Problem(s): Biventricular implantable cardioverter-defibrillator in situ- [facility] [employer] No device issues, or delivered therapies Apaced 86% Biv Paced>99% No fluid retention * Assessment & Plan Note - Brady Ugarte MD - 02/03/2014 2:16 PM ESTAssociated Problem(s): Heart failure chronic systolic dysfunction Wellcompensated and euvolemic * Assessment & Plan Note - Brady Ugarte MD - 02/03/2014 2:15 PM ESTAssociated Problem(s): Pericarditis Occasional chestpain, resolved with NSAID periodical use * Assessment & Plan Note - Brady Ugarte MD - 02/03/2014 2:14 PM ESTAssociated Problem(s): Pulmonary embolism No recurrence off coumadin documented in this encounter Plan of Treatment Upcoming Encounters Date Type Department Care Team (Late st Contact Info) Description 02/26/2024 10:00 AM EST Hospital Encounter Non-[place] [phone] Arrived documented as of this encounter Procedures Procedure Name Priority Date/Time Associated Diagnosis Comments HEMOGRAM STAT 02/03/2014 11:17 AM EST Other primary cardiomyopathies Heart failure, unspecified DIFFERENTIAL, AUTOMATED STAT 02/03/2014 11:17 AM EST Other primary cardiomyopathies Heart failure, unspecified CBC (WITH DIFF) STAT 02/03/2014 11:17 AM EST Other primary cardiomyopathies Heart failure, unspecified PRO-BRAIN NATRIURETIC PEPTIDE STAT 02/03/2014 11:17 AM EST Other primary cardiomyopathies Heart failure, unspecified BASIC METABOLIC PANEL STAT 02/03/2014 11:17 AM EST Other primary cardiomyopathies Heart failure, unspecified documented in this encounter Results * Differential, Automated (02/03/2014 11:17 AM EST) Neutrophil % 60.7 % CERNER MILLENNIUM Neutrophil Absolute 5.33 1.50 - 6.30 x10(3)/mcL CERNER MILLENNIUM Lymph % 31.7 % CERNER MILLENNIUM Lymphocytes Abs 2.8 1.0 - 3.6 x10(3)/mcL CERNER MILLENNIUM Monocyte % 5.4 % CERNER MILLENNIUM Monocyte Abs 0.5 0.2 - 1.0 x10(3)/mcL CERNER MILLENNIUM Eos % 1.8 % CERNER MILLENNIUM Eosinophils Abs 0.2 0.0 - 0.5 x10(3)/mcL CERNER MILLENNIUM Basophil % 0.3 % CERNER MILLENNIUM Baso Absolute 0.0 0.0 - 0.2 x10(3)/mcL CERNER MILLENNIUM Immature Gran % 0.10 % CERN ER MILLENNIUM Comment: Immature granulocytes(IG's)percentage and absolute count will include metamyelocytes, myelocytes, and promyelocytes. Blood smears from CBCs yielding IG's will be scanned manually for concordance. If this scan disagrees with the automated IG or if promyelocytes are noted, a manual differential will be performed. Immature Gran Absolute 0.01 0.00 - 0.05 x10(3)/mcL CERNER MILLENNIUM Blood specimen (specimen) 02/03/2014 11:17 AM EST 02/03/2014 11:25 AM EST Narrative Resulting Agency Comment Spec In Lab Brady Ugarte MD HEMATOLOGY ORDERABLE S CERNER MILLENNIUM * Hemogram (02/03/2014 11:17 AM EST) White Blood Cell 8.8 4.0 - 10.0 x10(3)/mcL CERNER MILLENNIUM Red Blood Cell 5.31 4.63 - 6.08 x10(6)/mcL CERNER MILLENNIUM Hemoglobin 16.0 13.7 - 17.5 gm/dL CERNER MILLENNIUM Hematocrit 45.9 40.0 - 51.0 % CERNER MILLENNIUM Mean Cell Volume 86.4 79.0 - 92.0 fL CERNER MILLENNIUM Mean Cell Hemoglobin 30.1 25.6 - 32.2 pg CERNER MILLENNIUM Mean Cell Hemoglobin Concentration 34.9 32.0 - 36.5 gm/dL CERNER MILLENNIUM Platelet 191 145 - 370 x10(3)/mcL CERNER MILLENNIUM RDW Standard Deviation 40.2 35.0 - 46.0 fL CERNER MILLENNIUM RDW coefficient of variation 12.7 10.9 - 14.4 % CERNER MILLENNIUM Mean Platelet Volume 11.0 9.0 - 12.0 fL CERNER MILLENNIUM Blood specimen (specimen) 02/03/2014 11:17 AM EST 02/03/2014 11:25 AM EST Narrative Resulting Agency Comment Spec In Lab Brady Ugarte MD HEMATOLOGY ORDERABLE S Performing Organization Address [facility] Co de Phone Number [facility] MILLENNIUM * (ABNORMAL) pro-Brain Natriuretic Peptide (02/03/2014 11:17 AM EST) NT-proBNP 150(H) <=125 pg/mL CERNER MILLENNIUM Blood specimen (specimen) 02/03/2014 11:17 AM EST 02/03/2014 11:25 AM EST Narrative Resulting Agency Comment Spec In Lab Brady Ugarte MD CHEMISTRY ORDERABLES Performing Organization Address [facility] Co de Phone Number [facility] MILLENNIUM * Basic Metabolic Panel (non-fasting) (02/03/2014 11:17 AM EST) Pathologist [facility] Glucose 98 60 - 199 mg/dL [facility] MILLENNIUM Comment:Diabetes: >=200 mg/d L plus symptoms Blood Urea Nitrogen 17 10 - 20 mg/dL CERNER MILLENNIUM Creatinine 0.85 0.80 - 1.50 mg/dL CERNER MILLENNIUM Comment: Please note that the pediatric reference intervals supplied above were not validated at [facility] Results from pediatric patients should be interpreted in conjunction to the patient's age, height and muscle mass. Sodium 141 135 - 145 mmol/L [facility] MILLENNIUM Potassium 4.2 3.5 - 5.0 mmol/L CERNER MILLENNIUM Comment: Please note: ??Patients with WBC >100,000 may have falsely elevated Potassium levels. ??For accurate Potassium quantification in these patients send serum separator tube (gold top) for subsequent determinations. ??Contact the Clinical Chemistry Laboratory if there are any questions. Chloride 101 98 - 107 mmol/L CERNER MILLENNIUM Carbon Dioxide 27 22 - 31 mmol/L CERNER MILLENNIUM Anion Gap 13 5 - 15 mmol/L CERNER MILLENNIUM Calcium 9.7 8.5 - 10.5 mg/dL CERNER MILLENNIUM Est [...] the following links into your internet browser. [email or web address] Blood specimen (specimen) 02/03/2014 11:17 AM EST 02/03/2014 11:25 AM EST Narrative Resulting Agency Comment Spec In Lab Brady Ugarte MD CHEMISTRY ORDERABLES [facility] documented in this encounter Visit Diagnoses Diagnosis Other primary cardiomyopathies Heart failure, unspecified Pulmonary embolism Other pulmonary embolism and infarction Pericarditis Unspecified disease of pericardium Heart failure, chronic, systolic Non-ischemic cardiomyopathy Other primary cardiomyopathies documented in this encounter Care Teams Batch Plant Operator Relationship Specialty Start Date End Date Charli Jaramillo MD [address] [place] [address] PCP - General 03/25/11 08/07/22 documented as of this encounter
--- OUTSIDE RECORDS SUMMARY | 2023-12-11 18:47 | XMS_ITS | Encounter Summary ---
Author Organization [facility] [place] [address] Care Team Providers Care Operations Research Manager Name Role Phone Carlos Valdez MD Primary Care Provider [phone] Reason for Visit * Reason Comments Medication Refill Encounter Details Date Type Department Care Team (Late st Contact Info) Description 08/19/2013 Refill Cardiology at [address] [address] Xin Grewal, EVALUATION MANAGER [facility] [place] [address] Medication Refill Social History Tobacco Use Types [...] AM EST Hospital Encounter Non-[place]vasive [place] [phone] Arrived documented as of this encounter Visit Diagnoses Diagnosis Non-ischemic cardiomyopathy- Primary Other primary cardiomyopathies documented in this encounter Care Teams Operations Research Manager Relationship Specialty Start Date End Date Carlos Valdez MD [address] [place] [address] [address] [place] [address] PCP - General 03/25/11 08/07/22 documented as of this encounter
--- OUTSIDE RECORDS SUMMARY | 2023-12-11 18:47 | XMS_ITS | Encounter Summary ---
[place] [address] Care Team Providers Care Er Rn Name Role Phone Carlos Valdez MD Primary Care Provider [phone] Encounter Details Date Type Department Care Team (Late st Contact Info) Description 12/03/2014 External Results Cardiology at [address] [address] Carlos Valdez MD [address] [place] [address] [id number] Social History Tobacco Use Types Packs/Day Years [...] AM EST Hospital Encounter Non-Invasive [place] [address] Arrived documented as of this encounter Procedures Procedure Name Priority Date/Time Associated Diagnosis Comments EP DEVICE SCAN Routine 11/18/2014 documented in this encounter Results * Scan Doc: EP Device (11/18/2014) Anatomical Region Laterality Modality Other Carlos Valdez MD MEDIA MGR SCAN EXT O RDR/RSLT documented in this encounter Visit Diagnoses Not on filedocumented in this encounter Care Teams Er Rn Relationship Specialty Start Date End Date Carlos Valdez MD [address] [place] [address] PCP - General 03/25/11 08/07/22 documented as of this encounter
--- OUTSIDE RECORDS SUMMARY | 2023-12-11 18:47 | XMS_ITS | Encounter Summary ---
Author Organization [facility] [place] [address] Care Team Providers Care Liner Worker Name Role Phone Carlos Valdez MD Primary Care Provider [phone] Reason for Referral * Diagnostic X-Ray (Routine) - Closed Specialty Diagnoses / Procedures Referred By Theodora de la torre Referred To Contact Radiology Diagnoses AICD (automatic cardioverter/defibrillator) present Procedures XR Chest Routine PA & Lateral Kirit Khan, LIBERAL ARTS TEACHER [facility] [place] [address] [facility] Rad Xray [address] [place] [address] [place] [address] Referral ID Status Reason Start Date Expiration Date Visits Re quested Visits Authorized [id number] Closed 12/10/2014 12/10/2015 1 1 Encounter Details Date Type Department Care Team (Latest Contact Info) Description 12/10/2014 3:32 PM EDT - 12/10/2014 11:59 PM EDT Hospital Encounter XRay at [address] [place] [address] AICD (automatic cardioverter/defibr illator) present Social History Tobacco Use Types Packs/Day Years [...] Sig Dispensed Refills Start Date End Date rbyswki-jbroppfsiiawy-h affeine (EXCEDRIN MIGRAINE) 250-250-65 mg per tablet [...] nightly. 30 tablet 0 01/11/2011 losartan (COZAAR) 50 mg Tablet take 1 tablet by mouth once daily 30 tablet 11 08/12/2014 02/15/2017 COREG CR 40 mg Cap, Multiphasic Release 24 hr TAKE 1 CAPSULE DAILY 90 capsule 1 08/05/2014 01/21/2015 documented as of this encounter Plan of Treatment Upcoming Encounters Date Type Department Care Team (Late st Contact Info) Description 02/26/2024 10:00 AM EST Hospital Encounter Non-Invasive [place] [address] Arrived documented as of this encounter Procedures Procedure Name Priority Date/Time Associated Diagnosis Comments XR CHEST PA AND LATERAL Routine 12/10/2014 3:42 PM EDT AICD (automatic cardioverter/defibr illator) present documented in this encounter Results * [...] radiographs. Destin He MD IMG DX ORDERABLES documented in this encounter Visit Diagnoses Diagnosis AICD (automatic cardioverter/defibrillator) present Automatic implantable cardiac defibrillator in situ documented in this encounter Care Teams Liner Worker Relationship Specialty Start Date End Date Carlos Valdez MD [address] [facility] [address] [facility] [address] [place] [address] PCP - General 03/25/11 08/07/22 documented as of this encounter
--- OUTSIDE RECORDS SUMMARY | 2023-12-11 18:47 | XMS_ITS | Encounter Summary ---
Author Organization [facility] [place] [address] Care Team Providers Care Manager Delivery Name Role Phone Carlos Valdez MD Primary Care Provider [phone] Encounter Details Date Type Department Care Team (Late st Contact Info) Description 11/18/2014 Notes Only Cardiology at [address] [phone] Alison Marlow MD [facility] [place] [address] Social History Tobacco Use Types Packs/Day Years [...] as of this encounter Progress Notes * Alison Marlow MD - 11/18/2014 4:37 PM EDT REMOTE ICD REVIEW Download date: 11/19/2014 No significant arrhythmias Atrial oversensing - needs office evaluation . documented in this encounter Plan of Treatment Upcoming Encounters Date Type Department Care Team (Late st Contact Info) Description 02/26/2024 10:00 AM EST Hospital Encounter Non-Invasive [place] [phone] Arrived documented as of this encounter Visit Diagnoses Not on filedocumented in this encounter Care Teams Manager Delivery Relationship Specialty Start Date End Date Carlos Valdez MD [address] [place] [address] PCP - General 03/25/11 08/07/22 documented as of this encounter
--- OUTSIDE RECORDS SUMMARY | 2023-12-11 18:47 | XMS_ITS | Encounter Summary ---
[place] [address] Care Team Providers Care Manager Strategy & Account Name Role Phone Carlos Valdez MD Primary Care Provider [phone] Encounter Details Date Type Department Care Team (Late st Contact Info) Description 11/06/2013 External Results Cardiology at [address] [phone] Carlos Valdez MD [address] [place] [address] [id number] Social History Tobacco Use Types Packs/Day Years [...] AM EST Hospital Encounter Non-Invasive [place] [address] Arrived documented as of this encounter Procedures Procedure Name Priority Date/Time Associated Diagnosis Comments EP DEVICE SCAN Routine 10/15/2013 documented in this encounter Results * Scan Doc: EP Device (10/15/2013) Anatomical Region Laterality Modality Other Carlos Valdez MD MEDIA MGR SCAN EXT O RDR/RSLT documented in this encounter Visit Diagnoses Not on filedocumented in this encounter Care Teams Manager Strategy & Account Relationship Specialty Start Date End Date Carlos Valdez MD [address] [place] [address] PCP - General 03/25/11 08/07/22 documented as of this encounter
--- OUTSIDE RECORDS SUMMARY | 2023-12-11 18:48 | XMS_ITS | Encounter Summary ---
[place] [address] Care Team Providers Care Security Researcher Name Role Phone Carlos Valdez MD Primary Care Provider [phone] Reason for Visit * Reason Comments Medication Refill Encounter Details Date Type Department Care Team (Late st Contact Info) Description 02/01/2013 Refill Cardiology at [address] [phone] Mary Perez, [employer] [address] [place] [address] Medication Refill Social History Tobacco Use Types Packs/Day Years Used Date Smoking Tobacco: Former Cigarettes Q uit: 01/12/1996 Smokeless Tobacco: Never Comments:stopped 15 years Sex and Gender Information Value Date Recorded Sex Assigned at Not on file Gender Identity Not on file Sexual Orientation Not on file documented as of this encounter Plan of Treatment Upcoming Encounters Date Type Department Care Team (Late st Contact Info) Description 02/26/2024 10:00 AM EST Hospital Encounter Non-Invasive [place] [phone] Arrived documented as of this encounter Visit Diagnoses Diagnosis Heart failure chronic systolic dysfunction Heart failure, unspecified Non-ischemic cardiomyopathy Other primary cardiomyopathies documented in this encounter Care Teams Security Researcher Relationship Specialty Start Date End Date Carlos Valdez MD [address] [facility] [address] [address] PCP - General 03/25/11 08/07/22 documented as of this encounter
--- OUTSIDE RECORDS SUMMARY | 2023-12-11 18:48 | XMS_ITS | Encounter Summary ---
Author Organization [facility] [place] [address] Care Team Providers Care Laborer [employer] Name Role Phone Charli Jaramillo MD Primary Care Provider [phone] Encounter Details Date Type Department Care Team (Late st Contact Info) Description 02/18/2013 10:30 AM EST - 02/18/2013 4:30 PM EST Surgery [place] [address] Lata Azevedo MD [facility] [place] [address] ELECTROPHYSIOLOGY PROCEDURE Social History Tobacco Use Types [...] Sign Reading Time Taken Comments Blood Pressure 119/79 02/18/2013 4:30 PM EST Pulse 77 02/18/2013 4:30 PM EST Temperature 36.6 ??C (97.9 ??F) 02/18/2013 4:01 PM ES T Respiratory Rate 19 02/18/2013 4:01 PM EST Oxygen Saturation 96% 02/18/2013 4:01 PM EST Inhaled Oxygen Concentration - - Weight 100.2 kg (221 lb) 02/18/2013 9:10 AM EST Height 195.6 cm (6' 5) 02/18/2013 9:10 AM EST Body Mass Index 26.2 02/18/2013 5:08 PM EST documented in this encounter Discharge Instructions * Patient Instructions* Kirit Khan - 02/19/2013 9:53 AM EST Final recommendations: 1. Standard post implant discharge instructions (see below): 2. Resume previous home medications. 3. Follow up with the [facility] device clinic to be arranged. FOLLOW UP: Call your clinician if you develop chest pain, shortness of breath, bleeding, leg pain/leg swellingor fever/temperature >100 degrees F WOUND CARE FOR PATIENTS WITH PACEMAKERS AND [...] rubs on clothing and causes you discomfort. You have an Mepilex dressing, it stays on for 7 days unless fluid collects underneath it. If you have medical adhesive on your incision please see separate instruction sheet. Do not shower for 48 hours after [...] the operated side above the shoulder for 6 weeks. You may use your arm on the operated side, but do not make extreme movements (such as stretching orreaching for a heavy object) for 6 weeks. No golfing, swimming or horseback riding for 6 months. Do not lift greater than 7 pounds with the arm on the operated side for 6 weeks. 7 pounds is equal to a gallon of milk. No driving 1-2 weeks. These discharge instructions have been reviewed and given to the patient. The patient verbalized understanding of this information. derma+flex?? QSTM Patient After-Care Instructions Your wound has been repaired using derma+flex?? QSTM High Viscosity topical tissue adhesive (glue),the list below is a guide for you to understand and care for your wound following your procedure. ?? Keep the wound dry. You may occasionally and briefly wet your wound in the shower or bath at thedirection of your physician, but do not soak or scrub the wound area. After showering or bathing, gently blot your wound dry with a soft towel. ?? Avoid Topical Medications. Do not apply liquid or ointment medications, lotions, creams, petroleum jelly, mineral oils or any other product to your wound while the derma+flex?? QSTM adhesive film is in place. ?? Do not rub, scratch, or pick at the wound. Doing so may compromise the integrity of the wound closure and cause scaring. ?? Protect the wound from prolonged sunlight exposure. Do not use tanning lamps while the film is in place. ?? Check wound appearance. Some swelling, redness, and pain are common with all wounds and normallywill go away as the wound heals. If swelling, redness, or pain increases or if the wound feels warmto the touch, contact your doctor. Also contact your doctor if the wound edges reopen or separate. ?? derma+flex?? QSTM will naturally slough off between 5 and 10 days after the procedure. By this time, your wound should be sufficiently healed. documented in this encounter Medications at Time of Discharge Medication Sig Dispensed Refills Start Date End Date lezhyrr-svctyxmpibqnt-ozbk eine (EXCEDRIN MIGRAINE) 250-250-65 mg per tablet [...] tablet 0 01/11/2011 COREG CR 40 mg [id number]:Heart failure,Non-ischemic cardiomyopathy TAKE 1 CAPSULE (40MG) BY MOUTH DAILY 90 capsule 3 02/01/2013 01/30/2014 losartan (COZAAR) 50 mg tabletIndications:Other primary cardiomyopathies Take 1 tablet by mouth daily. 30 tablet 3 08/17/2012 08/19/2013 documented as of this encounter Progress Notes * Serge Mcnally RN - 02/19/2013 10:54 AM EST Care Management (OCM)/ Clinical Agile Business Analyst ( CRC) CRC Service ; Cardiology, Cardio Thoracic and Thoracic Serge GORDON, RN Pager [phone] Record reviewed and patient discussed with multidisciplinary team. No discharge needs identified atthis time. CRC remains available as needed for coordination of care and discharge planning. * Kirit Khan - 02/19/2013 9:02 AM EST Patient Name: Jimmie Mccauley Patient Age: 67 y.o. Birthdate: 1945 Admit date: 02/18/2013 Attending Physician: Ozzie Fernando MD Patient Active Problem List Diagnosis ??? Biventricular ICD (implantable cardiac defibrillator) in place 02/19/2013 Cardiac Resynchronization Therapy ICD Upgrade (explant of pacemaker pulse generator), peripheral Subclavian Venography, Cinefluoroscopy, pacemaker pocket revision and defibrillation safety margin testing, under General anesthesia Indication: Cardiomopathy with congestive heart failure and ventricular dyssynchrony, ventricular pacing New Ventricular electrode: [employer] Model# 7122Q-58 cm Serial #[id number] Implanted 02/18/2013 Bipolar, steroid-tipped, active-fixation DF-4 lead Access: Axillary vein Location: Right ventricular apical septum (old) Atrial electrode: Medtronic, Model # 5568-52 cm Serial # [id number] Implanted 06/14/2012 Bipolar, steroid-tipped, active-fixation IS-1 lead Access: Not known Location Right atrium anterolateral Coronary sinus electrode: [employer] 1458Q/86 Serial number [id number] Implanted 02/18/2013 Quadripolar passive active fixation lead Access: Subclavian vein Location: Coronary sinus, posterolateral vein Pulse generator: [employer] [id number] Serial number [id number] Implanted 02/18/2013 ADVANCED SOLUTIONS ARCHITECT ICD Location: Subcutaneous Old ventricular lead : Medtronic 5075 Serial number [id number] (capped 02/18/2013) Old pulse generator: Medtronic ADDR01 Serial number [id number] (removed 02/18/2013) Detection and termination of ventricular [...] Trivial pleural effusion on chest x-ray Elevated BLW=308 a-->3.8 AN ESR=53 on index presentation --> [...] with left bundle branch block, PVCs, QRS vhnwxyll=678 msec. Symptomatic CHB 06/13/12- s/p DDDR pacemaker [...] Carvedilol ROSY/ARB Yes Losartan Spironolactone no Previously 6693-0800, d/c secondary to side effects (hives), no rechallenge Amlodipine Yes Initiated 05/30 LA AFIB? no Anticoagulated AICD/Type No, possible candidate EF ~ 50%-->35% V paced rhythm NSR with LBBB, QRS= 170 ms CHB [...] use ??? LBBB (left bundle branch block) QHB=846 ms New Symptomatic CHB 05/30-->declined pacer at [...] Dual Chamber Model # ADDR01, Serial number [id number] -[place], [place] ??? Cardiac pacemaker Indications: Symptomatic CHB, with slow VR ~ 20-30 Current Platform: DDD-R Pacemaker Medtronic Adapta Dual Chamber Model # ADDR01, Serial number [id number] -[place], [place] ??? HX SUDDEN CARDIAC ARREST Probably bradycardic induced, presenting with symptomatic CHB, and requiring defibrillation 05/2012 Interval History: No problems overnight and feeling well this morning. His device function is normal this morning andhe reports no diaphragmatic stimulation at maximum outputs in either the upright or supine position. Post implant instructions given and Mr. Mccauley has no questions this morning. He was advised that his guzman catheter will be removed and that a CXR will be obtained. ROS: General: No fever or chills. Integ:Denies rash. HEENT: No headaches, dizziness, visual changes or epistaxis Cardiac:No chest pain or orthopnea Respiratory: No SOB or cough GI: No dysphagia, abdominal pain, N/V/D/C Ext: Denies swelling. Wound: Minimal discomfort. PE: Constitutional: Adult with NAD. Integ: Warm and dry. HEENT: Head atraumatic, normocephalic Neck: No JVD @ 45 degree incline. Respiratory:CTA Extremities: No edema, pulses intact. Surgical wounds: Left Mepilex C/D/I. Filed Vitals: 02/19/13 0801 BP: 124/82 Pulse: 76 Temp: 36.8 ??C (98.2 ??F) Resp: 16 I/O last 3 completed shifts: In: 1500 [P.O.:300; I.V.:1150; IV Piggyback:50] Out: 1450 [Urine:1400; Blood:50] I/O this shift: In: - Out: 60 [Urine:60] Patient Vitals for the past 168 hrs: Weight 02/18/13 1708 100.24 kg (220 lb 15.8 oz) 02/18/13 0910 100.245 kg (221 lb) Device data: Mode: DDDR 70/130 LV --> RV 30 ms BV: ANGELINE Underlying rhythm: SR with CHB, no ventricular escape. Detection/Therapy: VF 200 bpm ATP x 1, 36J, 40 J x 5. VT 171 bpm Monitor. Atrial lead: P wave - 2.2 mV ACT - 0.5V @ 0.5ms Aimp - 360 ohms RV lead: R wave - (?? At implant) VCT - 0.5V @ 0.5 ms Vimp - 740 ohms CS lead: LVCT - 0.75V @ 0.5ms CS lead imp - 650 ohms HV - 57 ohms Comments: Normal function. Device reprogrammed: No. Comments: - Post implant instructions reviewed. - Discussed daily evaluation for infection or suture material and contact number given. - Alarm reviewed. Assessment/Plan: 67 y/o who was admitted yesterday for a device upgrade to a ADVANCED SOLUTIONS ARCHITECT-D from his dual- chamber ICD for worsening heart failure. He tolerated the procedure well and he has no questions regarding his post implant instructions. Patient was advised that he will be discharged home later today should his CXR beread as normal. Of note a U/A was sent as there was concern regarding a UTI given sediment noted in his guzman. Should this confirm a UTI will treat as an outpatient. Kirit Khan, MSN, VP GLOBAL, CCDS documented in this encounter H&P Notes * Lata Azevedo MD - 02/18/2013 9:25 AM EST Jimmie Mccauley [id number] 02/18/2013 67 y.o. Cardiology EP History and Physical PCP: CHARLI JARAMILLO MD I performed a history and physical exam of the patient and discussed the management of this patient Admission Diagnosis: 1) Non ischemic CM, for upgrade to ADVANCED SOLUTIONS ARCHITECT-D Date of Evaluation: 02/18/2013 Date of Admission: 02/18/2013 Problem List: Active Non-Hospital Problems Diagnosis ??? 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 Pericarditis ??? Pulmonary embolism ??? Non-ischemic cardiomyopathy ??? Heart failure chronic systolic dysfunction ??? Alcohol use ??? LBBB (left bundle branch block) ??? Complete heart block ??? Cardiac pacemaker ??? HX SUDDEN CARDIAC ARREST Prescriptions prior to admission Medication Sig Dispense Refill ??? bevztyy-omcbpgxqulimf-soymzmko (EXCEDRIN MIGRAINE) 250-250-65 mg per tablet Take [...] by mouth daily. 30 tablet 3 ??? warfarin (COUMADIN) 5 mg tablet Take 1-2 tablets by mouth daily. 60 tablet 5 ??? bumetanide (BUMEX) 0.5 mg tablet Take 1 tablet by mouth daily. 30 tablet 0 ??? zolpidem (AMBIEN) 10 mg tablet Take 1 tablet by mouth nightly. 30 tablet 0 ??? sildenafil (VIAGRA) 100 mg tablet Take 1 tablet by mouth once as needed. 10 tablet 0 HPI: This 67 y.o. male is admitted with a chief complaint of symptomatic congestive heart failure, LBBB, possible pacemaker mediated cardiomyopathy. His history was reviewed - there are no new changes. He feels well, no fevers, chills, or infectivesymptoms. NPO since last night. I have reviewed the available records, interviewed and examined the patient. ROS/PMHx/Fam Hx/Soc Hx: Reviewed, see outpatient note. Physical Exam: Vital signs: BP 139/86 Pulse 61 Temp 36.3 ??C (97.3 ??F) (Oral) Resp 16 Ht 195.6 cm (6' 5) Wt 100.245 kg (221 lb) BMI 26.21 kg/m2 SpO2 98% Physical Exam Constitutional: He is oriented to person, place, and time. He appears well-developed. Body mass index is 26.21 kg/(m^2). HENT: Head: Normocephalic. Mouth/Throat: No oropharyngeal exudate. Eyes: No scleral icterus. Neck: No JVD present. No tracheal deviation present. No thyromegaly present. Cardiovascular: Normal rate. Exam reveals no gallop. No murmur heard. Pulmonary/Chest: No respiratory distress. He has no wheezes. He has no rales. Musculoskeletal: He exhibits no edema. Neurological: He is oriented to person, place, and time. Lab (Last 24 Hours): Recent Results (from the past 24 hour(s)) PROTHROMBIN TIME Component Value Range PT 13.2 12.0 - 15.0 sec INR 1.0 0.9 - 1.1 CBC (WITH DIFF) Component Value Range WBC 8.2 4.0 - 10.0 x10(3)/mcL RBC 5.58 4.63 - 6.08 x10(6)/mcL Hemoglobin 16.5 13.7 - 17.5 gm/dL Hematocrit 48.8 40.0 - 51.0 % MCV 87.5 79.0 - 92.0 fL MCH 29.6 25.6 - 32.2 pg MCHC 33.8 32.0 - 36.5 gm/dL Platelets 159 145 - 370 x10(3)/mcL RDWSD 42.4 35.0 - 46.0 fL RDWCV 13.4 10.9 - 14.4 % MPV 10.8 9.0 - 12.0 fL NUCLEATED RED BLOOD CELLS Component Value Range nRBC % Auto 0.0 0.0 - 0.2 % nRBC Abs Auto 0.000 0.000 - 0.012 x10(3)/mcL DIFFERENTIAL, AUTOMATED Component Value Range Neutrophils % 54.7 34.0 - 71.0 % Neutr Abs (ANC) 4.47 1.50 - 6.30 x10(3)/mcL Lymphocytes % 34.9 19.0 - 53.0 % Lymphocytes Abs 2.9 1.0 - 3.6 x10(3)/mcL Monocytes % 7.7 4.0 - 13.0 % Monocyte Abs 0.6 0.2 - 1.0 x10(3)/mcL Eosinophils % 2.4 0.0 - 7.0 % Eosinophils Abs 0.2 0.0 - 0.5 x10(3)/mcL Basophils % 0.2 0.0 - 2.0 % Basophils Abs 0.0 0.0 - 0.2 x10(3)/mcL Immature Gran % 0.10 0.00 - 0.66 % Elva Gran Abs 0.01 0.00 - 0.05 x10(3)/mcL Assessment: 1. For upgrade of PPM to ADVANCED SOLUTIONS ARCHITECT-D 2. General anesthesia Plan: 1. The working diagnosis and plan of management was reviewed with the patient & available family. 2. Questions were addressed. The majority of my unit/floor time was spent counseling, and coordinating care for the patient regarding the diagnosis, diagnostic and therapeutic treatment plan. LATA AZEVEDO MD documented in this encounter Procedure Notes * Provider, Scanning - 02/20/2013 1:22 PM ESTAssociated Order(s): SCAN DOC: DATA WAREHOUSE SPECIALIST documented in this encounter Miscellaneous Notes * Miscellaneous - Provider, Scanning - 02/20/2013 1:22 PM EST * Miscellaneous - Margaux Mckeon - 02/20/2013 1:22 PM EST * Discharge Summary - Ozzie Fernando MD - 02/19/2013 9:39 AM EST Inpatient Cardiology - Discharge Summary Patient Name: Jimmie Mccauley Patient Age: 67 y.o. Birthdate: 1945 Admit date: 02/18/2013 Discharge date : 02/19/2013 Attending Physician: Ozzie Fernando MD Discharge Diagnoses (Hospital Problems) and Secondary Diagnoses (Chronic Problems): Active Hospital Problems Diagnosis ??? Biventricular ICD (implantable cardiac defibrillator) in place 02/19/2013 Cardiac Resynchronization Therapy ICD Upgrade (explant of pacemaker pulse generator), peripheral Subclavian Venography, Cinefluoroscopy, pacemaker pocket revision and defibrillation safety margin testing, under General anesthesia Indication: Cardiomopathy with congestive heart failure and ventricular dyssynchrony, ventricular pacing New Ventricular electrode: [employer] Model# 7122Q-58 cm Serial #[id number] Implanted 02/18/2013 Bipolar, steroid-tipped, active-fixation DF-4 lead Access: Axillary vein Location: Right ventricular apical septum (old) Atrial electrode: Medtronic, Model # 5568-52 cm Serial # [id number] Implanted 06/14/2012 Bipolar, steroid-tipped, active-fixation IS-1 lead Access: Not known Location Right atrium anterolateral Coronary sinus electrode: [employer] 1458Q/86 Serial number [id number] Implanted 02/18/2013 Quadripolar passive active fixation lead Access: Subclavian vein Location: Coronary sinus, posterolateral vein Pulse generator: [employer] [id number] Serial number [id number] Implanted 02/18/2013 ADVANCED SOLUTIONS ARCHITECT ICD Location: Subcutaneous Old ventricular lead : Medtronic 5075 Serial number [id number] (capped 02/18/2013) Old pulse generator: Medtronic ADDR01 Serial number [id number] (removed 02/18/2013) Detection and termination of ventricular tachyarrhythmias was performed with the ICD set to minimalsensitivity A T-Wave shock (4 S1 at 400 ms with a 310 ms delay and 1.2 Joule biphasic waveform) induced ventricular fibrillation that was successfully terminated with a 20 Joule shock (impedance 68 ohms). Resolved Hospital Problems Diagnosis Date Resolved No resolved problems to display. Active Non-Hospital Problems Diagnosis ??? 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 [...] Trivial pleural effusion on chest x-ray Elevated HEW=887 a-->3.8 AN ESR=53 on index presentation --> [...] with left bundle branch block, PVCs, QRS mbhdmypw=656 msec. Symptomatic CHB 06/13/12- s/p DDDR pacemaker [...] Carvedilol ROSY/ARB Yes Losartan Spironolactone no Previously 3023-7800, d/c secondary to side effects (hives), no rechallenge Amlodipine Yes Initiated 05/30 LA AFIB? no Anticoagulated AICD/Type No, possible candidate EF ~ 50%-->35% V paced rhythm NSR with LBBB, QRS= 170 ms CHB [...] use ??? LBBB (left bundle branch block) RQP=352 ms New Symptomatic CHB 05/30-->declined pacer at [...] Dual Chamber Model # ADDR01, Serial number [id number] -[place], [place] ??? Cardiac pacemaker Indications: Symptomatic CHB, with slow VR ~ 20-30 Current Platform: DDD-R Pacemaker Medtronic Adapta Dual Chamber Model # ADDR01, Serial number [id number] -[place], [place] ??? HX SUDDEN CARDIAC ARREST Probably bradycardic induced, presenting with symptomatic CHB, and requiring defibrillation 05/2012 History of Presentation: 67 year old male with nonischemic cardiomyopathy referred for consideration of ADVANCED SOLUTIONS ARCHITECT-D. He has had a decline in exertional tolerance with NYHA II-III class CHF symptoms, recent echocardiography demonstrating LVEF of 35%, and a widened QRS (161ms paced, 170ms LBBB prior to developing CHB). Decline in EF over the past six months remained unclear, but upgrade to a ADVANCED SOLUTIONS ARCHITECT-D was recommended and agreed upon. Hospital Course: Patient was admitted yesterday for an upgrade to a ADVANCED SOLUTIONS ARCHITECT-D. The procedure was acutely successful and the patient tolerated the procedure well with no issues noted overnight. His device function is normal and the CXR was unremarkable. There was what appeared to be sediment in the guzman catheter and a U/A was obtained to evaluate for a UTI. The patient was advised that once his is able to void he will be discharged home and if a UTI is identified he will be contacted with instructions. Important Studies and Lab Data: Labs: Lab Results Component Value Date WBC 8.2 02/18/2013 HGB 16.5 02/18/2013 HCT 48.8 02/18/2013 PLATELET 159 02/18/2013 Recent Labs Basename 02/18/13 0852 INR 1.0 Lab Results Component Value Date NA 140 02/18/2013 K 5.0 02/18/2013 CL 103 02/18/2013 CO2 29 02/18/2013 BUN 20 02/18/2013 CREATININE 1.06 02/18/2013 No results found for this basename: TSH in the last 7068 hours No results found for this basename: HA1C in the last 7068 hours No results found for this basename: CK:3,TROPONINT:3 in the last 168 hours Lab Results Component Value Date CHLPL 179 01/11/2012 HDL 52 01/11/2012 CHOLHDL 3.4 01/11/2012 TRIG 131 01/11/2012 LDLCHOL 101* 01/11/2012 Discharge to: Home. Discharge Medications: Current Discharge Medication List Continued medications, unchanged Dose Details fdtpysb-hgjgqxbewpoql-lwbrsvrt (EXCEDRIN MIGRAINE) 250-250-65 mg per tablet 1 tablet Take 1 tablet by mouth every 6 hours as needed. COREG CR 40 mg CM24 TAKE 1 CAPSULE (40MG) BY MOUTH DAILY Qty: 90 capsule Refills: 3 ibuprofen (ADVIL;MOTRIN) 200 mg tablet 400 mg Take 400 mg by mouth every 8 hours. hydroCODone-acetaminophen (VICODIN) 5-500 mg per tablet 1 tablet Take 1 tablet by mouth every 6 hours as needed. losartan (COZAAR) 50 mg tablet 50 mg Take 1 tablet by mouth daily. Qty: 30 tablet Refills: 3 bumetanide (BUMEX) 0.5 mg tablet 0.5 mg Take 1 tablet by mouth daily. Qty: 30 tablet Refills: 0 zolpidem (AMBIEN) 10 mg tablet 10 mg Take 1 tablet by mouth nightly. Qty: 30 tablet Refills: 0 Comments: Patient will need to get future ambien scripts from PCP sildenafil (VIAGRA) 100 mg tablet 100 mg Take 1 tablet by mouth once as needed. Qty: 10 tablet Refills: 0 Updated Allergies/ADRs: Allergies Allergen Reactions ??? Lasix (Furosemide) Rash General Instructions None Final recommendations: 1. Standard post implant discharge instructions (see below): 2. Resume previous home medications. 3. Follow up with the [facility] device clinic to be arranged. FOLLOW UP: Call your clinician if you develop chest pain, shortness of breath, bleeding, leg pain/leg swellingor fever/temperature >100 degrees F WOUND CARE FOR PATIENTS WITH PACEMAKERS AND [...] rubs on clothing and causes you discomfort. You have an Mepilex dressing, it stays on for 7 days unless fluid collects underneath it. If you have medical adhesive on your incision please see separate instruction sheet. Do not shower for 48 hours after [...] the operated side above the shoulder for 6 weeks. You may use your arm on the operated side, but do not make extreme movements (such as stretching orreaching for a heavy object) for 6 weeks. No golfing, swimming or horseback riding for 6 months. Do not lift greater than 7 pounds with the arm on the operated side for 6 weeks. 7 pounds is equal to a gallon of milk. No driving 1-2 weeks. These discharge instructions have been reviewed and given to the patient. The patient verbalized understanding of this information. derma+flex?? QSTM Patient After-Care Instructions Your wound has been repaired using derma+flex?? QSTM High Viscosity topical tissue adhesive (glue),the list below is a guide for you to understand and care for your wound following your procedure. Keep the wound dry. You may occasionally and briefly wet your wound in the shower or bath at the direction of your physician, but do not soak or scrub the wound area. After showering or bathing, gently blot your wound dry with a soft towel. Avoid Topical Medications. Do not apply liquid or ointment medications, lotions, creams, petroleum jelly, mineral oils or any other product to your wound while the derma+flex?? QSTM adhesive film is in place. Do not rub, scratch, or pick at the wound. Doing so may compromise the integrity of the wound closure and cause scaring. Protect the wound from prolonged sunlight exposure. Do not use tanning lamps while the film is in place. Check wound appearance. Some swelling, redness, and pain are common with all wounds and normally will go away as the wound heals. If swelling, redness, or pain increases or if the wound feels warm tothe touch, contact your doctor. Also contact your doctor if the wound edges reopen or separate. derma+flex?? QSTM will naturally slough off between 5 and 10 days after the procedure. By this time, your wound should be sufficiently healed. Future Appointments and Orders Future Appointments: Provider: Department: Dept Phone: Center: 04/02/2013 1:40 PM Mary Perez APRN Cardiology [phone] [facility] Joint Appt Nurse One Cardiology Intake, RN TATIANA 4A [phone] [facility] 05/21/2013 10:45 AM Ciaran Medel RN Cardiology [phone] [facility] Joint Appt Nurse [facility] Cardiology Intake, JIM Franco [phone] [facility] * Miscellaneous - Provider, Scanning - 02/18/2013 11:26 AM EST documented in this encounter Plan of Treatment Upcoming Encounters Date Type Department Care Team (Late st Contact Info) Description 02/26/2024 10:00 AM EST Hospital Encounter Non-In[place] [id number] Arrived documented as of this encounter Procedures Procedure Name Priority Date/Time Associated Diagnosis Comments DATA WAREHOUSE SPECIALIST SCAN 02/20/2013 1:22 PM EST URINALYSIS WITH REFLEX CULTURE STAT 02/19/2013 10:23 AM EST XR CHEST PA AND LATERAL STAT 02/19/2013 8:47 AM EST BMP W/FASTING GLUCOSE STAT 02/18/2013 8:52 AM EST Non-ischemic cardiomyopathy Complete heart block Cardiac pacemaker NUCLEATED RED BLOOD CELLS STAT 02/18/2013 8:52 AM EST DIFFERENTIAL, AUTOMATED STAT 02/18/2013 8:52 AM EST PROTHROMBIN TIME STAT 02/18/2013 8:52 AM EST Non-ischemic cardiomyopathy Complete heart block Cardiac pacemaker CBC (WITH DIFF) STAT 02/18/2013 8:52 AM EST Non-ischemic cardiomyopathy Complete heart block Cardiac pacemaker documented in this encounter Results * SCAN DOC: DATA WAREHOUSE SPECIALIST (02/20/2013 1:22 PM EST) Anatomical Region Laterality Modality Other Narrative 02/20/2013 2:28 PM EST Procedure Note Provider, Scanning - 02/20/2013 1:22 PM EST Scanning Provider MEDIA MGR SCAN EXT O RDR/RSLT * (ABNORMAL) Urinalysis with microscopic (02/19/2013 10:23 AM EST) Glucose, Urine Dipstick Negative Negative mg/dL CERNER MILLENNIUM Protein, Urine Dipstick 30(A) Neg mg/dL CERNER MILLENNIUM Bilirubin, Urine Dipstick Negative Negative mg/dL CERNER MILLENNIUM Comment: Clinical correlation required for positive Urine Bilirubin results as false positive may occur with some drugs and drug related products. If a false positive is suspected a serum total bilirubin should be considered if clinically indicated. Urobilinogen, Urine Dipstick Normal mg/dL CERNER MILLENNIUM pH, Urn (dipstick) 6.0 5.0 - 8.0 CERNER MILLENNIUM Blood, Urine Dipstick Moderate mg/dL CERNER MILLENNIUM Ketone, Urine Dipstick Negative mg/dL CERNER MILLENNIUM Nitrite, Urine Dipstick Negative CERNER MILLENNIUM Leukocytes, Urine Dipstick Large(A) Neg CERNER MILLENNIUM Appearance, Urine Dipstick Hazy(A) Clear CERNER MILLENNIUM Specific [place] Urine Automated 1.034(H) 1.002 - 1.030 CERNER MILLENNIUM Color, Urine Dipstick Yellow Yellow CERNER MILLENNIUM RBC, Urine >182(H) 0 - 3 /HPF CERNER MILLENNIUM WBC, Urine 45(H) 0 - 3 /HPF CERNER MILLENNIUM Bacteria, Urine Many /HPF CERN ER MILLENNIUM Squamous Epithelial Cells, Urine 1 <=4 /HPF CERNER MILLENNIUM Transitional Epithelial Cells, Urine <1 <=1 /HPF CERNER MILLENNIUM Urine specimen (specimen) 02/19/2013 10:23 AM EST 02/19/2013 10:32 AM EST Narrative Resulting Agency Comment Spec In Lab Ozzie Fernando MD URINE ORDERABLES CERNER MILLENNIUM * XR chest routine PA & lateral (02/19/2013 8:47 AM EST) Anatomical Region Laterality Modality Chest N/A Radiographic Vida ging 02/19/2013 8:47 AM EST Narrative 02/19/2013 9:25 AM EST Examination CHEST ROUTINE 2 VIEWS Clinical History s/p upgrade to [employer]-D Comparison Chest radiograph 07/10/2012, 06/13/2012. Technique PA and lateral radiographs of the chest. ??Findings. Findings The dual lead pacemaker has been exchanged for a 3 lead ICD, with lead tips in the right atrium, right ventricle and a new lead in the coronary sinus. ??The lungs are clear, without consolidation, effusion or pneumothorax. ?? Cardiomediastinal silhouette and pulmonary vasculature are normal. ??No interval osseous findings. Impression No complication following revision of left-sided pacemaker/ICD revision. Procedure Note Bassam Campos MD - 02/19/2013 Examination CHEST ROUTINE 2 VIEWS Clinical History s/p upgrade to [employer]-D Comparison Chest radiograph 07/10/2012, 06/13/2012. Technique PA and lateral radiographs of the chest. Findings. Findings The dual lead pacemaker has been exchanged for a 3 lead ICD, with leadtips in the right atrium, right ventricle and a new lead in the coronary sinus.The lungs are clear, without consolidation, effusion or pneumothorax. Cardiomediastinal silhouette and pulmonary vasculature are normal. Nointerval osseous findings. Impression No complication following revision of left-sided pacemaker/ICD revision. Ozzie Fernando MD IMG DX ORDERABLES * Differential, Automated (02/18/2013 8:52 AM EST) Neutrophil % 54.7 34.0 - 71.0 % CERNER MILLENNIUM Neutrophil Absolute 4.47 1.50 - 6.30 x10(3)/mcL CERNER MILLENNIUM Lymph % 34.9 19.0 - 53.0 % CERNER MILLENNIUM Lymphocytes Abs 2.9 1.0 - 3.6 x10(3)/mcL CERNER MILLENNIUM Monocyte % 7.7 4.0 - 13.0 % CERNER MILLENNIUM Monocyte Abs 0.6 0.2 - 1.0 x10(3)/mcL CERNER MILLENNIUM Eos % 2.4 0.0 - 7.0 % CERNER MILLENNIUM Eosinophils Abs 0.2 0.0 - 0.5 x10(3)/mcL CERNER MILLENNIUM Basophil % 0.2 0.0 - 2.0 % CERNER MILLENNIUM Baso [...] Gran Absolute 0.01 0.00 - 0.05 x10(3)/mcL [facility] Blood specimen (specimen) 02/18/2013 8:52 AM EST 02/18/2013 8:57 AM EST Ozzie Fernando MD HEMATOLOGY ORDERABLE S Performing Organization Address [facility] Co de Phone Number [facility] * Nucleated Red Blood Cells (02/18/2013 8:52 AM EST) NRBC% auto 0.0 0.0 - 0.2 % [facility] NRBC Absolute 0.000 0.000 - 0.012 x10(3)/mcL [facility] Blood specimen (specimen) 02/18/2013 8:52 AM EST 02/18/2013 8:57 AM EST Narrative Resulting Agency Comment Spec In Lab Ozzie Fernando MD HEMATOLOGY ORDERABLE S Performing Organization Address [facility] de Phone Number [facility] * (ABNORMAL) BMP w/fasting Glucose (02/18/2013 8:52 AM EST) Glucose Fasting 103(H) 65 - 99 mg/dL [facility] Comment: ?Fasting* Glucose Interpretive Criteria Normal ?65-99 [...] of Diabetes Mellitus, Position Statement from the [place] [employer]. ??Diabetes Care, Volume 33, Supplement 1, Mar 2009 Blood Urea Nitrogen 20 10 - 20 mg/dL CERNER MILLENNIUM Creatinine 1.06 0.80 - 1.50 mg/dL CERNER MILLENNIUM Comment: Please note that the pediatric reference intervals supplied above were not validated at [facility]. Results from pediatric patients should be interpreted in conjunction to the patient's age, height and muscle mass. Sodium 140 135 - 145 mmol/L CERNER MILLENNIUM Potassium 5.0 3.5 - 5.0 mmol/L CERNER MILLENNIUM Comment: Please note: ??Patients with WBC >100,000 may have falsely elevated Potassium levels. ??For accurate Potassium quantification in these patients send serum separator tube (gold top) for subsequent determinations. ??Contact the Clinical Chemistry Laboratory if there are any questions. Chloride 103 98 - 107 mmol/L CERNER MILLENNIUM Carbon Dioxide 29 22 - 31 mmol/L CERNER MILLENNIUM Anion Gap 8 5 - 15 mmol/L CERNER MILLENNIUM Calcium [...] internet browser. http://www.nkdep.nih.gov/lab-evaluation.shtml http://www.kidney.org/professionals/ Blood specimen (specimen) 02/18/2013 8:52 AM EST 02/18/2013 8:57 AM EST Narrative Resulting Agency Comment Spec In Lab Ozzie Fernando MD CHEMISTRY ORDERABLES [facility] * CBC (with Diff) (02/18/2013 8:52 AM EST) White Blood Cell 8.2 4.0 - 10.0 x10(3)/mcL CERNER MILLENNIUM Red Blood Cell 5.58 4.63 - 6.08 x10(6)/mcL CERNER MILLENNIUM Hemoglobin 16.5 13.7 - 17.5 gm/dL CERNER MILLENNIUM Hematocrit 48.8 40.0 - 51.0 % CERNER MILLENNIUM Mean Cell Volume 87.5 79.0 - 92.0 fL CERNER MILLENNIUM Mean Cell Hemoglobin 29.6 25.6 - 32.2 pg CERNER MILLENNIUM Mean Cell Hemoglobin Concentration 33.8 32.0 - 36.5 gm/dL CERNER MILLENNIUM Platelet 159 145 - 370 x10(3)/mcL CERNER MILLENNIUM RDW Standard Deviation 42.4 35.0 - 46.0 fL CERNER MILLENNIUM RDW coefficient of variation 13.4 10.9 - 14.4 % CERNER MILLENNIUM Mean Platelet Volume 10.8 9.0 - 12.0 fL CERNER MILLENNIUM Blood specimen (specimen) 02/18/2013 8:52 AM EST 02/18/2013 8:57 AM EST Narrative Resulting Agency Comment Spec In Lab Ozzie Fernando MD HEMATOLOGY ORDERABLE S Performing Organization Address [facility] de Phone Number [facility] * Prothrombin Time (02/18/2013 8:52 AM EST) Prothrombin Time 13.2 12.0 - 15.0 sec CERNER MILLENNIUM Comment: [facility] Transfusion Committee Guidelines: INR less than 2.0, PTT less than OR equal to 43.5 seconds, or Fibrinogen greater than or equal to 100 mg/dl indicate adequate procoagulant activity for hemostasis in patients without underlying bleeding disorders. International Normalization Ratio 1.0 0.9 - 1.1 CERNER MILLENNIUM Blood specimen (specimen) 02/18/2013 8:52 AM EST 02/18/2013 8:57 AM EST Narrative Resulting Agency Comment Spec In Lab Ozzie Fernando MD HEMATOLOGY ORDERABLE S Performing Organization Address City/State/[facility] Co de Phone Number [facility]EL[facility] ONEILL documented in this encounter Visit Diagnoses Diagnosis Non-ischemic cardiomyopathy Other primary cardiomyopathies Complete heart block Atrioventricular block, complete Cardiac pacemaker Cardiac pacemaker in situ Heart failure chronic systolic dysfunction Heart failure, unspecified Other primary cardiomyopathies Insomnia Insomnia, unspecified Biventricular ICD (implantable cardiac defibrillator) in place Automatic implantable cardiac defibrillator in situ Complete heart block Atrioventricular block, complete Cardiac pacemaker Cardiac pacemaker in situ Non-ischemic cardiomyopathy Other primary cardiomyopathies documented in this encounter Administered Medications Inactive Administered Medications - up to 3 most recent administrations Medication Order MAR Action Action Date Dose Rate Site alum-mag hydroxide-simeth (MAALOX) 200-200-20 mg/5 mL oral suspension 10 mL 10 mL, Oral, 3 TIMES DAILY PRN, Starting on Mon02/18/13 at 2222, Until Mon02/19/13 at 1305, Heartburn, Routine Given 02/18/2013 10:38 PM EST 10 mLs BUpivacaine (PF) (MARCAINE) 0.5 % (5 mg/mL) injection 150 mg 150 mg (30 mL), Subcutaneous, ONCE, 1 dose, On Mon02/18/13 at 0800, EP (Intra-Procedure), Routine Given 02/18/2013 11:27 AM EST 150 mg carvedilol (COREG) tablet 12.5 mg 12.5 mg, Oral, 2 TIMES DAILY WITH MEALS, First dose on Mon02/19/13 at 0800, Until Discontinued, Routine Given 02/19/2013 8:00 AM EST 12.5 mg ceFAZolin (ANCEF) 1g in dextrose 5% 50mL 1,000 mg (1 g), Intravenous, EVERY 8 HOURS, 2 doses, First dose on Mon02/18/13 at 1800, Last dose on Mon02/19/13 at 0200, Administer over 30 Minutes, Indication for (Active or Suspected): Prophylaxis Given 02/19/2013 3:37 AM EST 1,000 mg 100 mL/hr Given 02/18/2013 6:00 PM EST 1,000 mg 100 mL/hr ceFAZolin (ANCEF) 2g in dextrose 5% 50 mL 2 g, Intravenous, ONCE, 1 dose, On Mon02/18/13 at 0930, Redose after 4 hours., Day of Surgery (Day of Procedure), Indication for (Active or Suspected): Prophylaxis Given by Other 02/18/2013 10:45 AM EST 2 g fentaNYL 50mcg/mL injection 25-50 mcg, Intravenous, EVERY 5 MIN PRN, Starting on Mon02/18/13 at 1433, Until Mon02/18/13 at 1552, Pain, for breakthrough pain, Hold for respiratory rate less than 10 per minute. Maximum dose: 250 mcg over one hour., PACU Recovery, Routine Given 02/18/2013 2:57 PM EST 25 mcg Given 02/18/2013 2:44 PM EST 50 mcg Given 02/18/2013 2:38 PM EST 50 mcg hydroCODone-acetaminophen (VICODIN) 5-500 mg per tablet 1 tablet 1 tablet, Oral, EVERY 6 HOURS PRN, Starting on Mon02/18/13 at 1611, Until Mon02/19/13 at 1305, Pain, Maximum dose of acetaminophen is 4000 mg from all sources in 24 hours., Routine Given 02/19/2013 2:32 AM EST 1 tablet ibuprofen (ADVIL;MOTRIN) tablet 400 mg 400 mg, Oral, EVERY 8 HOURS, First dose on Mon02/18/13 at 1700, Until Discontinued, Maximum dose of 3200 mg from all sources in 24 hours, Routine Given 02/19/2013 9:00 AM EST 400 mg Given 02/18/2013 5:05 PM EST 400 mg lidocaine (XYLOCAINE) 20 mg/mL (2 %) injection 400 mg 400 mg (20 mL), Subcutaneous, ONCE, 1 dose, On Mon02/18/13 at 0800, EP (Intra-Procedure), Routine Given 02/18/2013 11:27 AM EST 400 mg neomycin-polymyxin B (NEOSPORIN) irrigation solution Irrigation, ONCE, On Mon02/18/13 at 0800, 1 dose, EP (Intra-Procedure) Given 02/18/2013 11:27 AM EST sodium chloride 0.9 % flush 5 mL 5 mL, Intravenous, EVERY 12 HOURS, First dose on Mon02/18/13 at 0930, Until Discontinued, Day of Surgery (Day of Procedure), Routine Given by Other 02/18/2013 9:30 AM EST 5 mLs sodium chloride 0.9 % flush 5 mL 5 mL, Intravenous, EVERY 12 HOURS, First dose on Mon02/18/13 at 0930, Until Discontinued, Day of Surgery (Day of Procedure) Given by Other 02/18/2013 9:30 AM EST 5 mLs zolpidem (AMBIEN) tablet 10 mg 10 mg, Oral, NIGHTLY, First dose on Mon02/18/13 at 2100, Until Discontinued, Routine Given 02/18/2013 9:59 PM EST 10 mg documented in this encounter Active and Recently Administered Medications Times are shown in EST. Scheduled Medication Order 02/17/2013 02/18/2013 02/19/2013 BUpivacaine (PF) (MARCAINE) 0.5 % (5 mg/mL) injection 150 mg (COMPLETED) 150 mg (30 mL), Subcutaneous, ONCE, 1 dose, On Mon02/18/13 at 0800, EP (Intra-Procedure), Routine 1127 (Given - Provider: Sergey Neil RN) carvedilol (COREG) tablet 12.5 mg (CANCELED) 12.5 mg, Oral, 2 TIMES DAILY WITH MEALS, First dose on Mon02/19/13 at 0800, Until Discontinued, Routine 0800 (Given - Provid er: Iris Fish RN) ceFAZolin (ANCEF) 1g in dextrose 5% 50mL (COMPLETED) 1,000 mg (1 g), Intravenous, EVERY 8 HOURS, 2 doses, First dose on Mon02/18/13 at 1800, Last dose on Mon02/19/13 at 0200, Administer over 30 Minutes, Indication for (Active or Suspected): Prophylaxis 1800 (Given - Provider: Siena Chang RN) 0337 (Given - Provider: Zaida Rodriguez RN - Comment: waiting for med from pharmacy) ceFAZolin (ANCEF) 2g in dextrose 5% 50 mL (COMPLETED) 2 g, Intravenous, ONCE, 1 dose, On Mon02/18/13 at 0800, EP (Intra-Procedure), Indication for (Active or Suspected): Prophylaxis 0800 (Due)1045 (Given - Provider: Cherelle Hernandez CRNA) ceFAZolin (ANCEF) 2g in dextrose 5% 50 mL (CANCELED) 2 g, Intravenous, ONCE, 1 dose, On Mon02/18/13 at 0930, Redose after 4 hours., Day of Surgery (Day of Procedure), Indication for (Active or Suspected): Prophylaxis 1045 (Given by Other - Provider: Chante Brantley RN - Comment: given carey hernandez crna. not charted) ibuprofen (ADVIL;MOTRIN) tablet 400 mg (CANCELED) 400 mg, Oral, EVERY 8 HOURS, First dose on Mon02/18/13 at 1700, Until Discontinued, Maximum dose of 3200 mg from all sources in 24 hours, Routine 1705 (Given - Provider: Siena Chang RN) 0100 (Not Given - Provider: Zaida Rodriguez RN - Reason: Patient/family refused)0900 (Given - Provider: Iris Fish RN) lidocaine (XYLOCAINE) 20 mg/mL (2 %) injection 400 mg (COMPLETED) 400 mg (20 mL), Subcutaneous, ONCE, 1 dose, On Mon02/18/13 at 0800, EP (Intra-Procedure), Routine 1127 (Given - Provider: Sergey Neil RN) neomycin-polymyxin B (NEOSPORIN) irrigation solution (COMPLETED) Irrigation, ONCE, On Mon02/18/13 at 0800, 1 dose, EP (Intra-Procedure) 1127 (Given - Provider: Sergey Neil RN) sodium chloride 0.9 % flush 5 mL (CANCELED) 5 mL, Intravenous, EVERY 12 HOURS, First dose on Mon02/18/13 at 0930, Until Discontinued, Day of Surgery (Day of Procedure), Routine 0930 (Given by Other - Provider: Chante Brantley RN - Comment: flushed on insertion. not charted.) sodium chloride 0.9 % flush 5 mL (CANCELED) 5 mL, Intravenous, EVERY 12 HOURS, First dose on Mon02/18/13 at 0930, Until Discontinued, Day of Surgery (Day of Procedure) 0930 (Given by Other - Provider: Chante Brantley RN - Comment: flushed on insertion. not charted) zolpidem (AMBIEN) tablet 10 mg (CANCELED) 10 mg, Oral, NIGHTLY, First dose on Mon02/18/13 at 2100, Until Discontinued, Routine 2159 (Given - Provider: Zaida Rodriguez, JIM) PRN Medication Order 02/17/2013 02/18/2013 02/19/2013 alum-mag hydroxide-simeth (MAALOX) 200-200-20 mg/5 mL oral suspension 10 mL (CANCELED) 10 mL, Oral, 3 TIMES DAILY PRN, Starting on Mon02/18/13 at 2222, Until Mon02/19/13 at 1305, Heartburn, Routine 2238 (Given - Provider: Zaida Rodriguez RN) fentaNYL 50mcg/mL injection (CANCELED) 25-50 mcg, Intravenous, EVERY 5 MIN PRN, Starting on Mon02/18/13 at 1433, Until Mon02/18/13 at 1552, Pain, for breakthrough pain, Hold for respiratory rate less than 10 per minute. Maximum dose: 250 mcg over one hour., PACU Recovery, Routine 1438 (Given - Provider: Chante Brantley, JIM)1444 (Given - Provider: Chante Brantley, JIM)1457 (Given - Provider: Chante Brantley RN) hydroCODone-acetaminophen (VICODIN) 5-500 mg per tablet 1 tablet (CANCELED) 1 tablet, Oral, EVERY 6 HOURS PRN, Starting on Mon02/18/13 at 1611, Until Mon02/19/13 at 1305, Pain, Maximum dose of acetaminophen is 4000 mg from all sources in 24 hours., Routine 0232 (Given - Provid er: Zaida Rodriguez RN) documented in this encounter Care Teams [employer] Relationship Specialty Start Date End Date Charli Jaramillo MD [address] [place] [address] PCP - General 03/25/11 08/07/22 documented as of this encounter
--- OUTSIDE RECORDS SUMMARY | 2023-12-11 18:48 | XMS_ITS | Encounter Summary ---
[facility] Organization [facility] [place] [address] Care Team Providers Care Immigration Guard Name Role Phone Charli Jaramillo MD Primary Care Provider [phone] Reason for Visit * Reason Comments Chest Pain pericarditis, CHB, s /p pacer Shortness of Breath Cardiomyopathy Encounter Details Date Type Department Care Team (Late st Contact Info) Description 10/16/2012 10:40 AM EDT Follow-Up Cardiology at [address] [address] Brady Ugarte MD [facility] [place] [address] Pulmonary embolism (Primary Dx); Heart failure, unspecified; Other primary cardiomyopathies; Pericarditis; Chest pain; Complete heart block; Heart failure chronic systolic dysfunction; Non-ischemic cardiomyopathy; LBBB (left bundle branch block); 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? Discharge Disposition: Home Social History Tobacco Use [...] Sign Reading Time Taken Comments Blood Pressure 116/76 10/16/2012 10:41 AM EDT Pulse 62 10/16/2012 10:41 AM EDT Temperature - - Respiratory Rate 16 10/16/2012 10:41 AM EDT Oxygen Saturation 97% 10/16/2012 10:41 AM EDT Inhaled Oxygen Concentration - - Weight 103.4 kg (228 lb) 10/16/2012 10:41 AM EDT Height 200.7 cm (6' 7) 10/16/2012 10:41 AM EDT Body Mass Index 25.69 10/16/2012 10:41 AM EDT documented in this encounter Patient Instructions * Patient Instructions* Brady Ugarte MD - 10/16/2012 11:26 AM EDT Overall, you seem to chair be feeling quite well over the last month except for one week of mild intermittent shoulder discomfort. Your diarrhea has resolved with a lower dose of colchicine. In general, you have returned back to your function with no significant shortness of breath, or fluid retention. Laboratory tests today demonstrates normal blood counts, electrolytes, kidney function as well as normal liver function tests. Your 2 markers for heart failure, the sedimentation rate and the CRP hadboth almost normalized suggesting minimal inflammation. A marker for heart failure, proBNP, has also lowered with medical therapy. We had a lengthy discussion regarding your cardiomyopathy, heart failure, and pacemaker as well as the recent acute medical problems with the pulmonary embolism and pericarditis. Medication changes: 1. Continue current medical therapy to include colchicine, one tablet daily. In the future, we may try to wean this off. 2. Depending on her clinical course, we may discontinue the Coumadin after 6 months of therapy for the pulmonary embolism. Please continue to watch her sodium intake, fluid status, and minimize alcohol intake documented in this encounter Progress Notes * Brady Ugarte MD - 10/14/2012 9:26 AM EDT Images from the original note were not included. [facility] [place] [address] CARDIOMYOPATHY/HEART FAILURE SERVICE OUTPATIENT CLINIC NOTE Jatinder Morrell 10/16/2012 Primary Care Provider: CHARLI JARAMILLO MD Referring Provider: Charli Jaramillo CHIEF COMPLAINT: Chief Complaint Patient presents with ??? Chest Pain pericarditis, CHB, s/p pacer ??? Shortness of Breath ??? Cardiomyopathy HISTORY OF PRESENT ILLNESS: Jatinder Morrell is a 67 y.o. patient seen in routine follow up in the [facility], and in the interim, the patient has had significant improvement in his clinical status with improvement of his dyspnea and dyspnea on exertion, exercise tolerance, fatigue, and chest pain. Over the lastmonth, 3-4 weeks have been excellent with no symptoms. He did have the last week of intermittent brief left shoulder discomfort that has quickly resolved in a few minutes. Overall, he has been happy with his lifestyle he feels that he [...] had occasional skipped heartbeats without sustained tachyarrhythmias. Other review of systems are negative. From his 09/13/12 clinic visit: He has noted significant improvement in his chest pain since the addition of ibuprofen and colchicine. He still has occasional pleuritic chest pain with deep inspiration but denies having severe chest pain, malaise, and dyspnea that he had before. A followup echocardiogram did demonstrate a slight decrease in his ejection fraction to 34% although without clinical heart failure or volume overload. He has been taking his makeda and ARB. He may be a candidate for spironolactone if his LV function persists. He denies any fever, chills, and he has had a good week last week but still has occasional chest pain. He has been walking 2 miles per day on a flat surface wi thout dyspnea. He can walk up a flight of stairs to 4 times a day without difficulty. He has not yet tried to walk up inclines/hills. He denies any thromboembolic or bleeding events on Coumadin and his INR is now 2.5. He has noted occasional diarrhea on the colchicine which he otherwise has been alexandr erating relatively well. His inflammatory markers have improved significantly on therapy and I do not hear a pericardial friction rub on exam. From his previous visit with me: The patient feels better than he did when evaluated by Mary Perez APRN. New symptoms of shortness of breath, chest discomfort, dizziness, and diaphoresis 2 weeksafter his device implant prompted an evaluation which included a chest x-ray showing trivial pleural effusions, and a stress echocardiogram that showed no pericardial effusion, similar moderate left ventricular systolic dysfunction, poor exercise tolerance, but no obvious ischemia with some regional wall motion abnormalities. He has an intolerance to Lasix secondary to a rash, but did respond to Bumex losing almost 10-15 pounds on his home scale, with improvement of the dyspnea. He has not had any recurrence of the lightheadedness, diaphoresis, or prolonged chest pain. However, he still notesat least 2 types of chest pain syndromes. He has a midsternal chest discomfort noted especially with exertion, such as walking up an incline associated with shortness of breath. He also has a right and left sided chest pain that appears to be slightly more positional but not necessarily respirophasic or pleuritic in nature. He denies any PND, orthopnea, or lower extremity edema. He has not any fever or chills. Blood cultures were negative. Of note, the patient did drive for 3 days for prolongedhours at a time. He also notes a slight decrease in his appetite with mild dysgeusia. From his most recent HF clinic note per Mary Perez: Mr Morrell presents today with a 6 day hx ofnot feeling all that well. Please refer to Dr Ugarte's recent note regarding hospitalization last month for complete heart block and pacemaker placement. Since home, he was doing quite well until he went for a walk up a hill he often does with his dog. (He had not done this walk since home after his pacemaker). He felt some chest tightness that lasted about 10 minutes, then felt lightheaded and clammy the next day off and on. Monday, he took the same walk(having felt well on Sat) and again had lightheadedness, dizzy, clammy. Yesterday felt lousy all day. He felt his heart pound in his chest; he notes electrical jabs in his chest. His BP has been 130-160/70-90. He says his symptoms are similar to ones that made him go to the hospital in the first place with his heart block. He denies fevers; has felt chilled. Appetite is ok. No LE edema. Does havesome SOB with activity. From his initial visit after DDD pacer implant: The patient was traveling on vacation and apparently cut his finger and reported to a local emergency room in [place]. He was told that he had a [...] this. There were no new medications or ynjx-pxo-eramvxe therapy initiated during this timeframe. On discharge, [...] the medical record. Patient Active Problem List Diagnoses Code ??? Non-ischemic cardiomyopathy 425.4 ??? Heart failure chronic systolic dysfunction 428.9 ??? Alcohol use V69.8 ??? LBBB (left bundle branch block) 426.3 ??? Complete heart block 426.0 ??? Cardiac pacemaker V45.01 ??? HX SUDDEN CARDIAC ARREST V12.53 ??? Pericarditis 423.9 ??? Pulmonary embolism 415.19 ??? 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 786.50 Patient Active Problem List Diagnoses ??? 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 [...] Trivial pleural effusion on chest x-ray Elevated GRW=418 a-->3.8 AN ESR=53 on index presentation --> [...] obvious ischemia Echo 08/17/12 EF=34% No effusion d. Sinus rhythm with left bundle branch block, PVCs, QRS iaoofzeu=631 msec. Symptomatic CHB 06/13/12- s/p DDDR pacemaker e. AHA/ACC stage C, NYHA functional class II. f. Intolerant to spironolactone. Currently on carvedilol and Cozaar with slightly elevated blood pressure relative to LV dysfunction. ??? Heart failure chronic systolic dysfunction Heart failure - well compensated Chronic Systolic dysfunction Non ischemic DCM Heart Failure Management: Yes/No No?/Discontinued/Why Beta makeda Yes Carvedilol ROSY/ARB Yes Losartan Spironolactone no Previously 8986-0534, d/c secondary to side effects (hives), no rechallenge Amlodipine Yes Initiated 05/30 [place] AFIB? no Anticoagulated AICD/Type NA Ef >40% NSR with LBBB, QRS= 170 ms CHB with symptomatic bradycardia, s/p DDD-R pacer 06/13/12 - LVEF ~ 50-55%, ICD not indicated, but, will likely be V paced, and higher risk for pacemaker induced LV dysfunction AHA/ACC stage C, NYHA FTCII ??? Alcohol use History of Alcohol use ??? LBBB (left bundle branch block) EWW=604 ms New Symptomatic CHB 05/30-->declined pacer at initial presentation while traveling -S/p temp pacer-->Permanent DDDR pacer -LVEF~ 50-55%, ICD not indicated, but at risk for V paced rhythm dyssynchrony ??? Complete heart block Symptomatic bradycardia with CHB and LBBB, HR in the 20-30s Initially seen at a local ER, pacemaker recommended, but declined While in [facility], [place], called [facility] in cath report, but likely symptomatic bradycardia and CHB CHB- s/p temporary pacer 06/13/2012 - cath: Angiogram, mild irregularities of LAD, LCXF dominant, 30-40% mid RCA - No LV gram done S/p DDD-R Pacemaker Medtronic Adapta Dual Chamber Model # [id number], Serial number [id number] -[place], [place] ??? Cardiac pacemaker Indications: Symptomatic CHB, with slow VR ~ 20-30 Current Platform: DDD-R Pacemaker Medtronic Adapta Dual Chamber Model # ADDR01, Serial number [id number] -[place], [place] ??? HX SUDDEN CARDIAC ARREST Probably bradycardic induced, presenting with symptomatic CHB, and requiring defibrillation 05/2012 SOCIAL HISTORY: Reviewed and updated as appropriate in the medical record. The patient reports thathe quit smoking about 16 years ago. His smoking use included Cigarettes. He has never used smokeless tobacco. FAMILY HISTORY: Reviewed and updated as appropriate in the medical record. No family history on file. ALLERGIES: Reviewed and updated as appropriate in the medical record. Allergies Allergen Reactions ??? Lasix (Furosemide) Rash MEDICATIONS: Outpatient Prescriptions Marked as Taking for the 10/16/12 encounter (Follow-Up) with Brady Ugarte MD Medication Sig Dispense Refill ??? ibuprofen (ADVIL;MOTRIN) 200 mg tablet Take 400 mg by mouth every 8 hours. ??? hydroCODone-acetaminophen (VICODIN) 5-500 mg per tablet Take 1 tablet by mouth every 6 hours asneeded. ??? colchicine (COLCRYS) 0.6 mg tablet Take 1 tablet by mouth 2 times daily. 60 tablet 3 ??? omeprazole (PRILOSEC) 20 mg capsule Take 1 capsule by mouth daily. 30 capsule 11 ??? losartan (COZAAR) 50 mg tablet Take 1 tablet by mouth daily. 30 tablet 3 ??? warfarin (COUMADIN) 5 mg tablet Take 1-2 tablets by mouth daily. 60 tablet 5 ??? Carvedilol Phosphate (COREG CR) 40 mg CM24 Take 40 mg by mouth daily. 30 capsule 5 ??? bumetanide (BUMEX) 0.5 mg tablet [...] General Denies Fever, chills, night sweats. Weight up approximately 3-4 pounds now stable. Sleep habits usually good Eyes No visual loss, double vision, drainage, eye pain, dry eyes, or other sxs reported. ENT No sore throat, dry mouth, eptistaxis or other sxs reported. Cardiac He notes significant and sustained improvement of his chest discomfort as noted above, has occasional skipped heartbeats, but denying any stain tachyarrhythmias or prolonged palpitations, improvement of his CORNEJO, no recurrence of Orthopnea, PND, LE edema Pulmonary improvement of shortness of breath, denies productive [...] Heart Failure Survey are: myD-H Heart Failure 10/16/2012 PROMIS 10- Physical Health Score 47.7 PROMIS 10- Mental Health Score 0 KCCQ - Total Symptom Score 91.58 KCCQ - Quality of Life 75 KCCQ - Social Limitation Incomplete KCCQ - Physical Limitation 100 KCCQ - Overall Summary Score Incomplete PHYSICAL EXAMINATION: Vital Signs: Wt Readings from Last 3 Encounters: 10/16/12 103.42 kg (228 lb) 09/13/12 101.606 kg (224 lb) 09/13/12 101.606 kg (224 lb) Temp Readings from Last 3 Encounters: No data found for Temp BP Readings from Last 3 Encounters: 10/16/12 116/76 09/13/12 118/74 09/13/12 118/74 Pulse Readings from Last 3 Encounters: 10/16/12 62 09/13/12 78 09/13/12 78 SpO2: [97 %] General -Alert, oriented, NAD. Affect good spirits, appropriate, answers questions appropriately. Well-developed male HEENT -unremarkable, no xanthelasma, arcus, icterus. PERRLA, moist mucous membranes. Dentition good. Neck -without lymphadenopathy, mass, thyromegaly Carotid upstroke Chest -site well healed, slightly tender, mild ecchymoses, slightly full. Lungs -clear without rales or rhonchi, no [...] Recent Results (from the past 72 hour(s)) PROTHROMBIN TIME Component Value Range PT 23.4 (*) 12.0 - 15.0 sec INR 2.0 (*) 0.9 - 1.1 CBC (WITH DIFF) Component Value Range WBC 8.6 4.0 - 10.0 x10(3)/mcL RBC 5.57 4.63 - 6.08 x10(6)/mcL Hemoglobin 15.9 13.7 - 17.5 gm/dL Hematocrit 47.7 40.0 - 51.0 % MCV 85.6 79.0 - 92.0 fL MCH 28.5 25.6 - 32.2 pg MCHC 33.3 32.0 - 36.5 gm/dL Platelets 206 145 - 370 x10(3)/mcL RDWSD 45.7 35.0 - 46.0 fL RDWCV 14.7 (*) 10.9 - 14.4 % MPV 10.9 9.0 - 12.0 fL COMPREHENSIVE METABOLIC PANEL (NON-FASTING) Component Value Range Glucose Lvl 84 60 - 199 mg/dL BUN 21 (*) 10 - 20 mg/dL Creatinine 0.84 0.80 - 1.50 mg/dL Sodium 139 135 - 145 mmol/L Potassium 3.9 3.5 - 5.0 mmol/L Chloride 103 98 - 107 mmol/L CO2 24 22 - 31 mmol/L Anion Gap 12 5 - 15 mmol/L Calcium 9.2 8.5 - 10.5 mg/dL Total Protein 6.5 6.4 - 8.3 gm/dL Albumin 4.3 3.2 - 5.2 gm/dL AST 21 0 - 39 unit/L ALT 23 0 - 55 unit/L Alk Phos 53 40 - 120 unit/L Total Bilirubin 1.0 0.2 - 1.3 mg/dL Bili, Direct 0.2 0.0 - 0.3 mg/dL Estimated GFR >60 >=60 PRO-BRAIN NATRIURETIC PEPTIDE Component Value Range ProBNP 532 (*) <=125 pg/mL SEDIMENTATION RATE Component Value Range Sed Rate 4 0 - 15 mm/hr HIGH SENSITIVITY CRP Component Value Range CRP High Sens 3.8 DIFFERENTIAL, AUTOMATED Component Value Range Neutrophils % 59.2 34.0 - 71.0 % Neutr Abs (ANC) 5.09 1.50 - 6.30 x10(3)/mcL Lymphocytes % 31.0 19.0 - 53.0 % Lymphocytes Abs 2.7 1.0 - 3.6 x10(3)/mcL Monocytes % 6.4 4.0 - 13.0 % Monocyte Abs 0.6 0.2 - 1.0 x10(3)/mcL Eosinophils % 2.6 0.0 - 7.0 % Eosinophils Abs 0.2 0.0 - 0.5 x10(3)/mcL Basophils % 0.6 0.0 - 2.0 % Basophils Abs 0.0 0.0 - 0.2 x10(3)/mcL Immature Gran % 0.20 0.00 - 0.66 % Elva Gran Abs 0.02 0.00 - 0.05 x10(3)/mcL Results for PORSCHE JATINDER Charo ( ) as of 10/16/2012 11:04 Ref. Range 06/26/2012 07:32 07/10/2012 10:58 08/17/2012 08:44 08/24/2012 11:54 09/13/2012 08:33 10/16/2012 09:59 ProBNP Latest Range: <=125 pg/mL 234 (H) 1094 (H) 980 (H) 792 (H) 753 (H) 532 (H) CARDIAC STUDIES Echo 07/20/12 BP 129/73 SUMMARY: [...] See remainder of report for additional findings. PROBLEMS: Complete heart block S/p perm DDD pacer, c/b pericarditis, and drop in LV function Heart failure chronic systolic dysfunction Appears to be fairly well compensated and euvolemic, improved exercise tolerance on appropriate medical therapy Intolerant to spironolactone in the past LBBB (left bundle branch block) Patient would be a candidate for a EDITOR BOOK-D upgrade or EDITOR BOOK if persistent LV dysfunction Non-ischemic cardiomyopathy Drop in LVEF with pacer therapy, ?pacer induced LV dysfunction, with EF ~ 34%. Will repeat and persistent LV dysfunction, consider a retrial spironolactone, and device upgrade to EDITOR BOOK-P or EDITOR BOOK-D Pericarditis Results for JATINDER MORRELL ( ) as of 10/16/2012 11:04 Ref. 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 PE and Pericarditis, with clinical improvement with minimal shoulder pain, intermittent, resolutionof diarrhea on lower dose colchicine ASSESSMENT: He continues to do well and has [...] possible upgrade of his pacemaker to a EDITOR BOOK-D. This could be related to his ventricular [...] effects to be aware of discussed. - decrease ibuprofen to one tablet twice a day, patient informed to take medications with meals, and wean if stable- If recurrent diarrhea, decreased colchicine to one tablet daily as needed, but continue twice daily if possible for now. - No Changes in cardiac medications, but may be a candidate for spironolactone if persistent LV systolic dysfunction he states that he was intolerant of this medication secondary to urticaria, although reviewing his [facility] chart, he was on spironolactone from 2001 for 2003, and it was discontinued somewhere between 2003 2005. We'll defer for now E. may be a candidate for EDITOR BOOK by mouth EDITOR BOOK-D 2. The following labs, referrals or other testing advised: - Repeat echocardiogram next visit , and consider EP cardiology referral for EDITOR BOOK-D if persistent LVsystolic dysfunction - Pacemaker reprogramming in 3 months post-implant per EP cardiology - I reviewed his images from his cardiac cath. 3. COUNSELING: Specific issues or questions addressed on this visit: - As above - I cautioned him to limit his alcohol use - Reviewed his laboratories, EKG, and recent clinical course and available discharge documents fromhis recent hospitalization in [place] - reviewed his short-term and long-term prognosis - Possible weaning of colchicine, ibuprofen, and discontinuing Coumadin after 6 months of therapy for PE 4. Cardiology follow-up scheduled for: - 1 Months or earlier as clinically indicated - PCP and other subspecialists as previously arranged Brady Ugarte MD, 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 PE and Pericarditis, with clinical improvement with minimal shoulder pain, intermittent, resolutionof diarrhea on lower dose colchicine * Assessment & Plan Note - Brady Ugarte MD - 10/16/2012 11:03 AM EDTAssociated Problem(s): Pulmonary embolism Stable with no recurrent symptoms and no bleeding complications on coumadin Willl continue coumadin for 6 months * Assessment & Plan Note - Brady Ugarte MD - 10/16/2012 11:02 AM EDTAssociated Problem(s): Pericarditis Results for JATINDER MORRELL ( ) as of 10/16/2012 11:04 Ref. Range 08/17/2012 08:44 08/24/2012 11:54 09/13/2012 08:33 10/16/2012 09:59 Sed Rate Latest Range: 0-15 mm/hr 58 (H) 35 (H) 13 4 CRP High Sens No range found 243.7 16.6 10.2 3.8 * Assessment & Plan Note - Brady Ugarte MD - 10/16/2012 11:01 AM EDTAssociated Problem(s): Non-ischemic cardiomyopathy Drop in LVEF with pacer therapy, ?pacer induced LV dysfunction, with EF ~ 34%. Will repeat and persistent LV dysfunction, consider a retrial spironolactone, and device upgrade to EDITOR BOOK-P or EDITOR BOOK-D * Assessment & Plan Note - Brady Ugarte MD - 10/16/2012 10:59 AM EDTAssociated Problem(s): LBBB (left bundle branch block) Patient would be a candidate for a EDITOR BOOK-D upgrade or EDITOR BOOK if persistent LV dysfunction * Assessment & Plan Note - Brady Ugarte MD - 10/16/2012 10:58 AM EDTAssociated Problem(s): Heart failure chronic systolic dysfunction Appears to be fairly well compensated and euvolemic, improved exercise tolerance on appropriate medical therapy Intolerant to spironolactone in the past * Assessment & Plan Note - Brady Ugarte MD - 10/16/2012 10:57 AM EDTAssociated Problem(s): Complete heart block S/p perm DDD pacer, c/b pericarditis, and drop in LV function documented in this encounter Plan of Treatment Upcoming Encounters Date Type Department Care Team (Late st Contact Info) Description 02/26/2024 10:00 AM EST Hospital Encounter [place] [address] Arrived Scheduled Orders Name Type Priority Associated Diagnoses Orde r Schedule Prothrombin Time Lab Routine Pulmonary embolism Expected: 10/16/2012 (Approximate), Expires: 10/09/2013 documented as of this encounter Procedures Procedure Name Priority Date/Time Associated Diagnosis Comments DIFFERENTIAL, AUTOMATED STAT 10/16/2012 9:59 AM EDT SEDIMENTATION RATE Routine 10/16/2012 9: 59 AM EDT Pericarditis PROTHROMBIN TIME Routine 10/16/2012 9:59 AM EDT Chest pain Complete heart block Heart failure chronic systolic dysfunction Non-ischemic cardiomyopathy CBC (WITH DIFF) STAT 10/16/2012 9:59 AM EDT Heart failure, unspecified Other primary cardiomyopathies CRP, CARDIAC RISK (HS CRP) Routine 10/16/2012 9:59 AM EDT Pericarditis PRO-BRAIN NATRIURETIC PEPTIDE STAT 10/16/2012 9:59 AM EDT Heart failure, unspecified Other primary cardiomyopathies COMPREHENSIVE METABOLIC PANEL STAT 10/16/2012 9:59 AM EDT Heart failure, unspecified Other primary cardiomyopathies documented in this encounter Results * Differential, Automated (10/16/2012 9:59 AM EDT) Neutrophil % 59.2 34.0 - 71.0 % CERNER MILLENNIUM Neutrophil Absolute 5.09 1.50 - 6.30 x10(3)/mcL CERNER MILLENNIUM Lymph % 31.0 19.0 - 53.0 % CERNER MILLENNIUM Lymphocytes Abs 2.7 1.0 - 3.6 x10(3)/mcL CERNER MILLENNIUM Monocyte % 6.4 4.0 - 13.0 % CERNER MILLENNIUM Monocyte Abs 0.6 0.2 - 1.0 x10(3)/mcL CERNER MILLENNIUM Eos % 2.6 0.0 - 7.0 % CERNER MILLENNIUM Eosinophils Abs 0.2 0.0 - 0.5 x10(3)/mcL CERNER MILLENNIUM Basophil % 0.6 0.0 - 2.0 % CERNER MILLENNIUM Baso Absolute 0.0 0.0 - 0.2 x10(3)/mcL CERNER MILLENNIUM Immature Gran % 0.20 0.00 - 0.66 % CERNER MILLENNIUM Comment: Immature granulocytes(IG's)percentage and absolute count will include metamyelocytes, myelocytes, and promyelocytes. Blood smears from CBCs yielding IG's will be scanned manually for concordance. If this scan disagrees with the automated IG or if promyelocytes are noted, a manual differential will be performed. Immature Gran Absolute 0.02 0.00 - 0.05 x10(3)/mcL CERNER MILLENNIUM Blood specimen (specimen) 10/16/2012 9:59 AM EDT 10/16/2012 10:14 AM EDT Brady Ugarte MD HEMATOLOGY ORDERABLE S NELSON ONEILL * (ABNORMAL) Prothrombin Time (10/16/2012 9:59 AM EDT) Prothrombin Time 23.4(H) 12.0 - 15.0 sec CERNER MILLENNIUM Comment: [facility] Transfusion Committee Guidelines: INR less than 2.0, PTT less than OR equal to 43.5 seconds, or Fibrinogen greater than or equal to 100 mg/dl indicate adequate procoagulant activity for hemostasis in patients without underlying bleeding disorders. International Normalization Ratio 2.0(H) 0.9 - 1.1 [facility] Blood specimen (specimen) 10/16/2012 9:59 AM EDT 10/16/2012 10:14 AM EDT Narrative Resulting Agency Comment Spec In Lab Brady Ugarte MD HEMATOLOGY ORDERABLE S Performing Organization Address [facility] de Phone Number [facility] * High Sensitivity CRP (10/16/2012 9:59 AM EDT) C-Reactive Protein High Sensitivity 3.8 mg/L [facility] Comment: Interpretations: 1) For accurate cardiac [...] prevention. ??Circulation 2003; [phone] Blood specimen (specimen) 10/16/2012 9:59 AM EDT 10/16/2012 10:14 AM EDT Narrative Resulting Agency Comment Spec In Lab Brady Ugarte MD CHEMISTRY ORDERABLES Performing Organization Address [facility] Co de Phone Number NELSON [facility]ARABAN[facility]ENTER[facility]ORD[facility] * Sedimentation rate (10/16/2012 9:59 AM EDT) Sedimentation Rate Automated 4 0 - 15 mm/hr [facility] Blood specimen (specimen) 10/16/2012 9:59 AM EDT 10/16/2012 10:14 AM EDT Narrative Resulting Agency Comment Spec In Lab Brady Ugarte MD HEMATOLOGY ORDERABLE S Performing Organization Address City/[facility]/ZIP Co de Phone Number NELSON BENNETTIUM * (ABNORMAL) pro-Brain Natriuretic Peptide (10/16/2012 9:59 AM EDT) NT-proBNP 532(H) <=125 pg/mL CERNER MILLENNIUM Blood specimen (specimen) 10/16/2012 9:59 AM EDT 10/16/2012 10:14 AM EDT Narrative Resulting Agency Comment Spec In Lab Brady Ugarte MD CHEMISTRY ORDERABLES Performing Organization Address [facility] Co de Phone Number NELSON ALCANTARAENNIUM * (ABNORMAL) Comprehensive metabolic panel (non-fasting) (10/16/2012 9:59 AM EDT) Glucose 84 60 - 199 mg/dL CERNER MILLENNIUM Comment:Diabetes: >=200 mg/d L plus symptoms Blood Urea Nitrogen 21(H) 10 - 20 mg/dL CERNER MILLENNIUM Creatinine 0.84 0.80 - 1.50 mg/dL CERNER MILLENNIUM Comment: Please note that the pediatric reference intervals supplied above were not validated at [facility]. Results from pediatric patients should be interpreted in conjunction to the patient's age, height and muscle mass. Sodium 139 135 - 145 mmol/L CERNER MILLENNIUM Potassium 3.9 3.5 - 5.0 mmol/L CERNER MILLENNIUM Comment: Please note: ??Patients with WBC >100,000 may have falsely elevated Potassium levels. ??For accurate Potassium quantification in these patients send serum separator tube (gold top) for subsequent determinations. ??Contact the Clinical Chemistry Laboratory if there are any questions. Chloride 103 98 - 107 mmol/L CERNER MILLENNIUM Carbon Dioxide 24 22 - 31 mmol/L CERNER MILLENNIUM Anion Gap 12 5 - 15 mmol/L CERNER MILLENNIUM Calcium 9.2 8.5 - 10.5 mg/dL CERNER MILLENNIUM Protein, Total 6.5 6.4 - 8.3 gm/dL CERNER MILLENNIUM Albumin 4.3 3.2 - 5.2 gm/dL CERNER MILLENNIUM Aspartate Aminotransferase 21 0 - 39 unit/L CERNER MILLENNIUM Alanine Aminotransferase 23 0 - 55 unit/L CERNER MILLENNIUM Alkaline Phosphatase 53 40 - 120 unit/L CERNER MILLENNIUM Bilirubin, [...] internet browser. http://www.nkdep.nih.gov/lab-evaluation.shtml http://www.kidney.org/professionals/ Blood specimen (specimen) 10/16/2012 9:59 AM EDT 10/16/2012 10:14 AM EDT Narrative Resulting Agency Comment Spec In Lab Brady Ugrate MD CHEMISTRY ORDERABLES [facility]CRUZBAN[facility]ENTER[facility]ORD[facility] * (ABNORMAL) CBC (with Diff) (10/16/2012 9:59 AM EDT) White Blood Cell 8.6 4.0 - 10.0 x10(3)/mc L CERNER MILLENNIUM Red Blood Cell 5.57 4.63 - 6.08 x10(6)/mc L CERNER MILLENNIUM Hemoglobin 15.9 13.7 - 17.5 gm/dL CERNER MILLENNIUM Hematocrit 47.7 40.0 - 51.0 % CERNER MILLENNIUM Mean Cell Volume 85.6 79.0 - 92.0 fL CERNER MILLENNIUM Mean Cell Hemoglobin 28.5 25.6 - 32.2 pg CERNER MILLENNIUM Mean Cell Hemoglobin Concentration 33.3 32.0 - 36.5 gm/dL CERNER MILLENNIUM Platelet 206 145 - 370 x10(3)/mc L NELSON BENNETTIUM RDW Standard Deviation 45.7 35.0 - 46.0 fL NELSON BENNETTIUM RDW coefficient of variation 14.7(H) 10.9 - 14.4 % NELSON BENNETTIUM Mean Platelet Volume 10.9 9.0 - 12.0 fL NELSON ONEILL Blood specimen (specimen) 10/16/2012 9:59 AM EDT 10/16/2012 10:14 AM EDT Narrative Resulting Agency Comment Spec In Lab Brady Ugarte MD HEMATOLOGY ORDERABLE S NELSON ONEILL documented in this encounter Visit Diagnoses Diagnosis Pulmonary embolism- Primary Other pulmonary embolism and infarction Heart failure, unspecified Other primary cardiomyopathies Pericarditis Unspecified disease of pericardium 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? Chest pain, unspecified Complete heart block Atrioventricular block, complete Heart failure chronic systolic dysfunction Heart failure, unspecified Non-ischemic cardiomyopathy Other primary cardiomyopathies LBBB (left bundle branch block) Other left bundle branch block documented in this encounter Care Teams Immigration Guard Relationship Specialty Start Date End Date Charli Jaramillo MD [address] [place] [address] PCP - General 03/25/11 08/07/22 documented as of this encounter
--- OUTSIDE RECORDS SUMMARY | 2023-12-11 18:48 | XMS_ITS | Encounter Summary ---
Author Organization [facility] Address [facility] [place] [address] Care Team Providers Care Sales And Marketing Agent Name Role Phone Carlos Valdez MD Primary Care Provider [phone] Encounter Details Date Type Department Care Team (Latest Contact Info) Description 08/24/2012 11:36 AM EDT - 08/24/2012 11:59 PM EDT [place] [address] Brady Ugarte MD [facility] [address] Chest pain; Complete heart block; Heart failure chronic systolic dysfunction; Non-ischemic cardiomyopathy; Heart failure, unspecified; Other primary cardiomyopathies; Pulmonary embolism Discharge Disposition: Home Social History Tobacco Use [...] Sig Dispensed Refills Start Date End Date sildenafil (VIAGRA) 100 mg tablet Take 1 tablet by mouth once as needed. 10 tablet 0 01/11/2011 zolpidem (AMBIEN) 10 mg tabletIndications:Insomnia Take 1 tablet by mouth nightly. 30 tablet 0 01/11/2011 colchicine (COLCRYS) 0.6 mg tablet Take 1 tablet by mouth 2 times daily. 60 tablet 3 08/17/2012 02/07/2013 ibuprofen (ADVIL;MOTRIN) 400 mg tablet Take 1 tablet by mouth every 8 hours. 30 tablet 12 08/17/2012 09/13/2012 omeprazole (PRILOSEC) 20 mg capsule Take 1 capsule by mouth daily. 30 capsule 11 08/17/2012 02/07/2013 losartan (COZAAR) 50 mg tabletIndications:Other primary cardiomyopathies Take 1 tablet by mouth daily. 30 tablet 3 08/17/2012 08/19/2013 warfarin (COUMADIN) 5 mg tabletIndications:Pulmonar y embolism Take 1-2 tablets by mouth daily. 60 tablet 5 08/01/2012 02/19/2013 Carvedilol Phosphate (COREG CR) 40 mg [id number]:Chronic systolic heart failure Take 40 mg by mouth daily. 30 capsule 5 06/26/2012 02/01/2013 documented as of this encounter Plan of Treatment Upcoming Encounters Date Type Department Care Team (Late st Contact Info) Description 02/26/2024 10:00 AM EST Hospital Encounter [place] [address] Arrived Scheduled Orders Name Type Priority Associated Diagnoses Orde r Schedule Prothrombin Time Lab Routine Pulmonary embolism 1 Occurrences starting 08/24/2012 documented as of this encounter Procedures Procedure Name Priority Date/Time Associated Diagnosis Comments DIFFERENTIAL, AUTOMATED STAT 08/24/2012 11:54 AM EDT SEDIMENTATION RATE Routine 08/24/2012 11 :54 AM EDT Heart failure, unspecified Other primary cardiomyopathies PROTHROMBIN TIME Routine 08/24/2012 11:5 4 AM EDT Chest pain Complete heart block Heart failure chronic systolic dysfunction Non-ischemic cardiomyopathy CBC (WITH DIFF) STAT 08/24/2012 11:54 AM EDT Heart failure, unspecified Other primary cardiomyopathies CRP, CARDIAC RISK (HS CRP) Routine 08/24/2012 11:54 AM EDT Heart failure, unspecified Other primary cardiomyopathies PRO-BRAIN NATRIURETIC PEPTIDE STAT 08/24/2012 11:54 AM EDT Heart failure, unspecified Other primary cardiomyopathies BASIC METABOLIC PANEL STAT 08/24/2012 11:54 AM EDT Heart failure, unspecified Other primary cardiomyopathies documented in this encounter Results * Differential, Automated (08/24/2012 11:54 AM EDT) Neutrophil % 63.0 34.0 - 71.0 % CERNER MILLENNIUM Neutrophil Absolute 5.99 1.50 - 6.30 x10(3)/mcL CERNER MILLENNIUM Lymph % 27.3 19.0 - 53.0 % CERNER MILLENNIUM Lymphocytes Abs 2.6 1.0 - 3.6 x10(3)/mcL CERNER MILLENNIUM Monocyte % 4.6 4.0 - 13.0 % CERNER MILLENNIUM Monocyte Abs 0.4 0.2 - 1.0 x10(3)/mcL CERNER MILLENNIUM Eos % 4.4 0.0 - 7.0 % CERNER MILLENNIUM Eosinophils Abs 0.4 0.0 - 0.5 x10(3)/mcL CERNER MILLENNIUM Basophil % 0.5 0.0 - 2.0 % CERNER MILLENNIUM Baso [...] 0.05 x10(3)/mcL CERNER MILLENNIUM Blood specimen (specimen) 08/24/2012 11:54 AM EDT 08/24/2012 11:59 AM EDT Brady Ugarte MD HEMATOLOGY ORDERABLE S CERNER [employer] IndiaENNIUM * (ABNORMAL) Sedimentation rate (08/24/2012 11:54 AM EDT) Sedimentation Rate Automated 35(H) 0 - 15 mm/hr NELSON ONEILL Blood specimen (specimen) 08/24/2012 11:54 AM EDT 08/24/2012 11:59 AM EDT Narrative Resulting Agency Comment Spec In Lab Brady Ugarte MD HEMATOLOGY ORDERABLE S NELSON ONEILL * High Sensitivity CRP (08/24/2012 11:54 AM EDT) C-Reactive Protein High Sensitivity 16.6 mg/L [facility] Comment: Interpretations: 1) For cardiac risk assessment, two values (fasting or nonfasting sample acceptable) taken at least 2 weeks apart, should be averaged to provide a more reliable estimate of marker level. ??This laboratory uses the recommendations from the AHA/CDC Scientific Statement for interpretations of future risks of cardiovascular events: ? <1.0 mg/L: low risk 1.0 - 3.0 mg/L: moderate risk >3.0 mg/L: high risk groups for future cardiovascular events 2) The general reference range of apparently healthy individuals using this test is <5.0 mg/L (derived from the test package insert) A few words of caution: For cardiac assessment, when a value >10 mg/L is encountered, there should be a search for an acute inflammatory condition or infection (in patients with acute inflammation, the concentration can increase to >500 mg/L). ??The >10 mg/L should be discarded if such a situation exists, since the risk for coronary heart disease cannot be provided, and a repeat specimen, taken at least two weeks after resolution of the acute inflammatory condition, may allow for appraisal of coronary risk information. Please note that significantly decreased CRP values may be obtained from samples taken from patients who have been treated with carboxypenicillins. References: 1. Lashanda VALDES et. al. ??AHA/CDC Scientific Statement: Markers of Inflammation and Cardiovascular Disease. ??Circulation 2003; 107:499-511 Ritesh LOZANO. ??Clinical applications of C-reactive protein for cardiovascular disease detection and prevention. ??Circulation 2003; 107:363-369 Blood specimen (specimen) 08/24/2012 11:54 AM EDT 08/24/2012 11:59 AM EDT Narrative Resulting Agency Comment Spec In Lab Brady Ugarte MD CHEMISTRY ORDERABLES CERNER MILLENNIUM * (ABNORMAL) pro-Brain Natriuretic Peptide (08/24/2012 11:54 AM EDT) NT-proBNP 792(H) <=125 pg/mL CERNER MILLENNIUM Blood specimen (specimen) 08/24/2012 11:54 AM EDT 08/24/2012 11:59 AM EDT Narrative Resulting Agency Comment Spec In Lab Brady Ugarte MD CHEMISTRY ORDERABLES Performing Organization Address [facility] Co de Phone Number CERNER MILLENNIUM * (ABNORMAL) Basic Metabolic Panel (non-fasting) (08/24/2012 11:54 AM EDT) Glucose 98 60 - 199 mg/dL CERNER MILLENNIUM Comment:Diabetes: >=200 mg/d L plus symptoms Blood Urea Nitrogen 22(H) 10 - 20 mg/dL CERNER MILLENNIUM Creatinine 0.95 0.80 - 1.50 mg/dL CERNER MILLENNIUM Comment: Please note that the pediatric reference intervals supplied above were not validated at [facility]. Results from pediatric patients should be interpreted [...] 5 - 15 mmol/L CERNER MILLENNIUM Calcium 9.1 8.5 - 10.5 mg/dL CERNER MILLENNIUM Est [...] internet browser. http://www.nkdep.nih.gov/lab-evaluation.shtml http://www.kidney.org/professionals/ Blood specimen (specimen) 08/24/2012 11:54 AM EDT 08/24/2012 11:59 AM EDT Narrative Resulting Agency Comment Spec In Lab Brady Ugarte MD CHEMISTRY ORDERABLES [facility] * (ABNORMAL) CBC (with Diff) (08/24/2012 11:54 AM EDT) White Blood Cell 9.5 4.0 - 10.0 x10(3)/mc L CERNER MILLENNIUM Red Blood Cell 4.58(L) 4.63 - 6.08 x10(6)/mc L CERNER MILLENNIUM Hemoglobin 12.8(L) 13.7 - 17.5 gm/dL CERNER MILLENNIUM Hematocrit 39.1(L) 40.0 - 51.0 % CERNER MILLENNIUM Mean Cell Volume 85.4 79.0 - 92.0 fL CERNER MILLENNIUM Mean Cell Hemoglobin 27.9 25.6 - 32.2 pg CERNER MILLENNIUM Mean Cell Hemoglobin Concentration 32.7 32.0 - 36.5 gm/dL CERNER MILLENNIUM Platelet 358 145 - 370 x10(3)/mc L CERNER MILLENNIUM RDW Standard Deviation 37.7 35.0 - 46.0 fL CERNER MILLENNIUM RDW coefficient of variation 12.4 10.9 - 14.4 % CERNER MILLENNIUM Mean Platelet Volume 9.7 9.0 - 12.0 fL CERNER MILLENNIUM Blood specimen (specimen) 08/24/2012 11:54 AM EDT 08/24/2012 11:59 AM EDT Narrative Resulting Agency Comment Spec In Lab Brady Ugarte MD HEMATOLOGY ORDERABLE S Performing Organization Address [facility] Co de Phone Number NELSON ONEILL * (ABNORMAL) Prothrombin Time (08/24/2012 11:54 AM EDT) Prothrombin Time 36.2(H) 12.0 - 15.0 sec CERNER MILLENNIUM Comment: [facility] Transfusion Committee Guidelines: INR less than 2.0, PTT less than OR equal to 43.5 seconds, or Fibrinogen greater than or equal to 100 mg/dl indicate adequate procoagulant activity for hemostasis in patients without underlying bleeding disorders. International Normalization Ratio 3.5(H) 0.9 - 1.1 CERBAILEY MONOCO Blood specimen (specimen) 08/24/2012 11:54 AM EDT 08/24/2012 11:59 AM EDT Narrative Resulting Agency Comment Spec In Lab Brady Ugarte MD HEMATOLOGY ORDERABLE S Performing Organization Address [facility] de Phone Number NELSON ONEILL documented in this encounter Visit Diagnoses Diagnosis Chest pain Chest pain, unspecified Complete heart block Atrioventricular block, complete Heart failure chronic systolic dysfunction Heart failure, unspecified Non-ischemic cardiomyopathy Other primary cardiomyopathies Heart failure, unspecified Other primary cardiomyopathies Pulmonary embolism Other pulmonary embolism and infarction documented in this encounter Care Teams Sales And Marketing Agent Relationship Specialty Start Date End Date Carlos Valdez MD [address] [place] [address] PCP - General 03/25/11 08/07/22 documented as of this encounter
--- OUTSIDE RECORDS SUMMARY | 2023-12-11 18:48 | XMS_ITS | Encounter Summary ---
[place] [address] Care Team Providers Care French Polisher Name Role Phone Carlos Valdez MD Primary Care Provider [phone] Encounter Details Date Type Department Care Team (Latest Contact Info) Description 11/14/2012 Anti-Coag Telephone Visit Cardiology at [address] [phone] Charlotte Dasilva RN Pulmonary embolism (Primary Dx) Social History Tobacco Use Types Packs/Day Years Used Date Smoking Tobacco: Former Cigarettes Q uit: 01/12/1996 Smokeless Tobacco: Never Comments:stopped 15 years Sex and Gender Information Value Date Recorded Sex Assigned at Not on file Gender Identity Not on file Sexual Orientation Not on file documented as of this encounter Progress Notes * Charlotte Dasilva RN - 11/14/2012 9:45 AM EDT Anticoagulation Therapy Note: Indication: pe Duration of Therapy: Ongoing Therapeutic Range:: 2.0-3.0 INR: 2.0 Drawn by: [facility] Monitored By: Cardio/ kono Next INR Due: 11/28/12 Warfarin dose : Increased Decreased x Maintained Comment: Continue 2.5 mg for 2 days and 5 mg for 5 days. Falls Risk Assessment: Have you had any falls in the past month? n If yes, how many times have you fallen? What were the conditions at the time of the fall? Bleeding: Epistaxis Black tarry stools Gingival bleeding Abnormal bruising Hematuria Other: Hemoptysis x No bleeding / bruising reported Comment: Symptoms of recurring primary event: Chest Pain Dyspnea Palpitations Headache Dizziness Edema Confusion Slurred Speech Weakness Visual changes Tender / Red / Swollen Extremities x No symptoms reported Other: Comment: Recent medication changes: Include Prescription/OTC/Herbal Yes x No Comment: Have you missed any dose of Coumadin this past week? Yes x No Comment: Dietary / Alcohol Changes: Yes x No Comment: Any Illness/Cold Sx/ Diarrhea/ Constipation> 48 hours: Yes x No Comment: Any Significant Change Activity Level: Yes x No Comment: Upcoming Invasive Procedure Planned: Yes x No Comment: Travel Plans: Yes Travel precautions reviewed x No Comment: Patient understands and agrees with plan of care. documented in this encounter Plan of Treatment Upcoming Encounters Date Type Department Care Team (Late st Contact Info) Description 02/26/2024 10:00 AM [facility] Hospital Encounter [place] [address] Arrived documented as of this encounter Visit Diagnoses Diagnosis Pulmonary embolism- Primary Other pulmonary embolism and infarction documented in this encounter Care Teams French Polisher Relationship Specialty Start Date End Date Carlos Valdez MD [address] [place] [address] PCP - General 03/25/11 08/07/22 documented as of this encounter
--- OUTSIDE RECORDS SUMMARY | 2023-12-11 18:48 | XMS_ITS | Encounter Summary ---
[place] [address] Care Team Providers Care Visual Merchandising Manager Name Role Phone Carlos Valdez MD Primary Care Provider [phone] Encounter Details Date Type Department Care Team (Latest Contact Info) Description 09/13/2012 Anti-Coag Telephone Visit Cardiology at [address] [phone] Clarice Hernandez RN Pulmonary embolism (Primary Dx) Social History Tobacco Use Types Packs/Day Years Used Date Smoking Tobacco: Former Cigarettes Q uit: 01/12/1996 Smokeless Tobacco: Never Comments:stopped 15 years Sex and Gender Information Value Date Recorded Sex Assigned at Not on file Gender Identity Not on file Sexual Orientation Not on file documented as of this encounter Progress Notes * Clarice Fernando RN - 09/13/2012 11:59 AM EDT Anticoagulation Therapy Telephone Note: Indication: PE Anticipated End Date: Ongoing Therapeutic Range: 2.0-3.0 INR: 2.5 [facility]wn by: [facility] Monitored By:cardio/ Dr Ugarte Next INR Due: September 21 Warfarin dose : Increased Decreased x Maintained Comment: Falls Risk Assessment: Have you had any falls in the last month:no How many times have you fallen? Conditions at time of fall? Refer for evaluation: Yes___ No___ Bleeding: Epistaxis Black tarry stools Gingival bleeding Abnormal bruising Hematuria Other: Hemoptysis x No bleeding / bruising reported Comment: Symptoms of recurring primary event: Chest Pain Dyspnea Palpitations Headache Dizziness Edema Confusion Slurred Speech Weakness Visual changes Tender / Red / Swollen Extremities x No symptoms reported Other: Comment: Recent medication changes: Include Prescription/OTC/Herbal x Yes No Comment: Decrease in ibuprofen and colchicine Have you missed any dose of Coumadin this past week? Yes x No Comment Dietary / Alcohol Changes: Yes x No [...] st Contact Info) Description 02/26/2024 10:00 AM [facility]-[place] [address] Arrived documented as of this encounter Visit Diagnoses Diagnosis Pulmonary embolism- Primary Other pulmonary embolism and infarction documented in this encounter Care Teams Visual Merchandising Manager Relationship Specialty Start Date End Date Carlos Valdez MD [address] [place] [address] PCP - General 03/25/11 08/07/22 documented as of this encounter
--- OUTSIDE RECORDS SUMMARY | 2023-12-11 18:48 | XMS_ITS | Encounter Summary ---
[facility] [place] [address] Care Team Providers Care Cad Designer Name Role Phone Carlos Valdez MD Primary Care Provider [phone] Reason for Visit * Reason Onset Date Comments Other 10/16/2012 ECHO ORDER Encounter Details Date Type Department Care Team (Late st Contact Info) Description 10/16/2012 Telephone Cardiology at [address] [phone] Brady Ugarte MD [facility] [place] [address] Other (ECHO ORDER) Social History Tobacco Use Types Packs/Day Years Used Date Smoking Tobacco: Former Cigarettes Q uit: 01/12/1996 Smokeless Tobacco: Never Comments:stopped 15 years Sex and Gender Information Value Date Recorded Sex Assigned at Not on file Gender Identity Not on file Sexual Orientation Not on file documented as of this encounter Miscellaneous Notes * Telephone Encounter - Mirtha Isabel - 10/16/2012 11:40 AM EDT Please sign attached order for upcoming appointment. documented in this encounter Plan of Treatment Upcoming Encounters Date Type Department Care Team (Late st Contact Info) Description 02/26/2024 10:00 AM EST Hospital Encounter Non-[place] [address] Arrived documented as of this encounter Results * Echo Transthoracic (Complete) (11/13/2012 9:59 AM EDT) EF 36 HEARTLAB SYSTEM Anatomical Region Laterality Modality Other 11/13/2012 Narrative 11/13/2012 12:00 PM EDT Amended Report Procedure: ? Transthoracic Echocardiogram Patient: ? PORSCHE Mancilla ?(Age): 1945(67) Med Rec#: ?[id number] ? Sex: ?M ? Site Loc: ?[facility] [place] ? Ht / Wt: ??201(cm)/105(kg) Pt. Loc: ? Echo Lab ? BSA: ?2.42 Study Date: ?11/13/2012 ? Pt. Type: Outpatient Tape: ? Referring: Brady Ugarte ([id number]) Toy Packer: Malcolm Cooper Interpreting Fellow: Lan Kim ??([id number]) Diagnosis:CPT Code(s): ??Spectral Doppler (07713), ??Color Doppler (50105), ??Echo Full (12288), Indication(s): ??Dizziness Rhythm: Paced rhythm HR ?BP ?138/93 ?? SUMMARY: 1. The left ventricle is moderately dilated to 6.1 cm. ??Global left ventricular systolic function is moderately reduced. ??Ejection fraction is estimated to be 35%. ??The quantitative left ventricular ejection fraction by biplane Ramirez's method is 36% but there is some difficulties with tracing. ??There are left ventricular segmental wall motion abnormalities present, as shown in the diagram below. 2. There is mild (1+/4+) mitral regurgitation present. 3. When directly compared to the prior echo dated 08/17/2012, there is no significant change in LV function. FINDINGS: Study Quality ?Adequate Left Ventricle ?The left ventricle is moderately dilated. ?Mild concentric left ventricular hypertrophy is observed. ?Global left ventricular systolic function is moderately reduced. Ejection fraction is estimated to be 35%. ?The quantitative left ventricular ejection fraction by biplane Ramirez's method is 36%. ?There are left ventricular segmental wall motion abnormalities present, as shown in the diagram below. ?The left ventricular diastolic filling pattern is consistent with impaired LV relaxation. ?Doppler assessment is consistent with normal left sided filling pressure. ?The ??basal anteroseptal, basal anterior, basal anterolateral, basal inferolateral, mid anteroseptal, mid anterior, mid anterolateral, mid inferolateral and apical lateral wall segments are hypokinetic. ?The ??basal inferior, basal inferoseptal, mid inferior, mid inferoseptal, apical septal, apical anterior and apical inferior wall segments are akinetic. Left Atrium ?The left atrium is mildly dilated. Right Ventricle ?Right ventricular chamber size, wall thickness, and systolic function are within normal limits. ?A pacemaker wire is visualized in the right ventricle. Right Atrium ?The right atrium is mildly dilated. ?A pacemaker wire is visualized in the right atrium. Aortic Valve ?The aortic valve is tricuspid. ?There is no evidence of aortic valve thickening. ?There is no evidence of aortic valve stenosis. ?There is a trace of aortic regurgitation present. Mitral Valve ?The mitral valve appears normal in structure and function. ?There is mild (1+/4+) mitral regurgitation present. Tricuspid Valve ?The tricuspid valve appears normal in structure and function. ?There is trace tricuspid regurgitation present. Pulmonic Valve ?The pulmonic valve appears normal in structure and function. ?There is mild (1+/4+) pulmonic regurgitation present. Pericardium ?The pericardium appears normal and there is no evidence of a pericardial effusion. Aorta ?There is mild dilatation of the aortic root. ?The aortic root dimension is 3.7 cm at the level of the sinuses. ?There is mild dilatation of the ascending aorta. ?The ascending aorta dimension is 3.7 cm. Pulmonary Artery ?The main pulmonary artery appears normal. Venous ?The inferior vena cava appears normal in size. ?There is a greater than 50% respiratory change in the inferior vena cava dimension. Misc ?Two-dimensional echo, spectral Doppler and color Doppler performed. Wall Motion: Segment Name ?Rest ? Base-Anteroseptal ?? Hypokinetic ? Base-Anterior ? Hypokinetic ? Base-Anterolateral ??Hypokinetic ? Base-Posterolateral Hypokinetic ? Base-Inferior ? Akinetic ? Base-Inferoseptal ?? Akinetic ? Mid-Anteroseptal ?Hypokinetic ? Mid-Anterior ?Hypokinetic ? Mid-Anterolateral ?? Hypokinetic ? Mid-Posterolateral ??Hypokinetic ? Mid-Inferior ?Akinetic ? Mid-Inferoseptal ?Akinetic ? [place]-Septal ? Akinetic ? [place]-Anterior ? Akinetic ? [place]-Lateral ?Hypokinetic ? [place]-Inferior ? Akinetic ? [place]-Tip ?Akinetic ? Chambers ?Value ?Units (Range) ? EF ??Bi-p Simp ? 36 ? % (55 to 80) ? IVSd 2D ? 1.2 ?cm ? LVIDd 2D ?6.1 ?cm ? PWd 2D ?1.3 ?cm ? LVIDs 2D ?5.1 ?cm ? LVFS 2D ? 16 ? % ? LA area ? 21 ? cm2 (<21) ? RA area ? 18 ? cm2 (<18) ? Ao root ? 3.7 ?cm (2.1 to 3.6) ? Asc Ao ?3.7 ?cm (2 to 3.5) ? Mitral Valve ?Value ?Units (Range) ? E peak ?0.43 ? m/sec ? E/A ratio ? 0.6 ?ratio ? MVDT ?364 ?msec ? E1 ?0.05 ? m/sec ? E/E1 ?8.6 ?ratio ? This report has been electronically signed by: Brady Ngo MD ? 11/13/2012 10:38:47 Images reviewed and interpretation verified [facility] Procedure Note Brady Ngo MD - 11/13/2012 Amended Report Procedure: Transthoracic Echocardiogram Patient: PORSCHE ROBERTS(Age): 1945(67) Med Rec#: [id number] Sex: M Site Loc: [facility] Ht / Wt: 201(cm)/105(kg) Pt. Loc: Echo Lab BSA: 2.42 Study Date: 11/13/2012 Pt. Type: Outpatient Tape: Referring: Brady Ugarte ([id number]) Toy Packer: Malcolm Cooper Interpreting Fellow: Lan Kim ([id number]) Diagnosis:CPT Code(s): Spectral Doppler (70927), Color Doppler (98425), Echo Full (35935), Indication(s): Dizziness Rhythm: Paced rhythm HR BP 138/93 SUMMARY: 1. The left ventricle is moderately [...] is no significant change in LV function. FINDINGS: Study Quality Adequate Left Ventricle The left ventricle is moderately dilated. Mild concentric left ventricular hypertrophy is observed. Global left ventricular systolic function is moderately reduced. Ejection fraction is estimated to be 35%. The quantitative left ventricular ejection fraction by biplane Ramirez's method is 36%. There are left ventricular segmental wall motion abnormalities present, as shown in the diagram below. The left ventricular diastolic filling pattern is consistent with impaired LV relaxation. Doppler assessment is consistent with normal left sided filling pressure. The basal anteroseptal, basal anterior, basal anterolateral, basal inferolateral, mid anteroseptal, mid anterior, mid anterolateral, mid inferolateral and apical lateral wall segments are hypokinetic. The basal inferior, basal inferoseptal, mid inferior, mid inferoseptal, apical septal, apical anterior and apical inferior wall segments are akinetic. Left Atrium The left atrium is mildly dilated. Right Ventricle Right ventricular chamber size, wall thickness, and systolic function are within normal limits. A pacemaker wire is visualized in the right ventricle. Right Atrium The right atrium is mildly dilated. A pacemaker wire is visualized in the right atrium. Aortic Valve The aortic valve is tricuspid. There is no evidence of aortic valve thickening. There is no evidence of aortic valve stenosis. There is a trace of aortic regurgitation present. Mitral Valve The mitral valve appears normal in structure and function. There is mild (1+/4+) mitral regurgitation present. Tricuspid Valve The tricuspid valve appears normal in structure and function. There is trace tricuspid regurgitation present. Pulmonic Valve The pulmonic valve appears normal in structure and function. There is mild (1+/4+) pulmonic regurgitation present. Pericardium The pericardium appears normal and there is no evidence of a pericardial effusion. Aorta There is mild dilatation of the aortic root. The aortic root dimension is 3.7 cm at the level of the sinuses. There is mild dilatation of the ascending aorta. The ascending aorta dimension is 3.7 cm. Pulmonary Artery The main pulmonary artery appears normal. Venous The inferior vena cava appears normal in size. There is a greater than 50% respiratory change in the inferior vena cava dimension. [facility] Two-dimensional echo, spectral Doppler and color Doppler performed. Wall Motion: Segment Name Rest Base-Anteroseptal Hypokinetic Base-Anterior Hypokinetic Base-Anterolateral Hypokinetic Base-Posterolateral Hypokinetic Base-Inferior Akinetic Base-Inferoseptal Akinetic Mid-Anteroseptal Hypokinetic Mid-Anterior Hypokinetic Mid-Anterolateral Hypokinetic Mid-Posterolateral Hypokinetic Mid-Inferior Akinetic Mid-Inferoseptal Akinetic [place]-Septal Akinetic [place]-Anterior Akinetic [place]-Lateral Hypokinetic [place]-Inferior Akinetic [place]-Tip Akinetic Chambers Value Units (Range) EF Bi-p Simp 36 % (55 to 80) IVSd 2D 1.2 cm LVIDd 2D 6.1 cm PWd 2D 1.3 cm LVIDs 2D 5.1 cm LVFS 2D 16 % LA area 21 cm2 (<21) RA area 18 cm2 (<18) Ao root 3.7 cm (2.1 to 3.6) Asc Ao 3.7 cm (2 to 3.5) Mitral Valve Value Units (Range) E peak 0.43 m/sec E/A ratio 0.6 ratio MVDT 364 msec E1 0.05 m/sec E/E1 8.6 ratio This report has been electronically signed by: Brady Ngo MD 11/13/2012 10:38:47 Images reviewed and interpretation verified [facility] Card[facility]ound [facility] Brady Ugarte MD ECHO ORDERABLES documented in this encounter Visit Diagnoses Diagnosis Other primary cardiomyopathies- Primary Other primary cardiomyopathies documented in this encounter Care Teams Cad Designer Relationship Specialty Start Date End Date Carlos Valdez MD [address] [place] [address] PCP - General 03/25/11 08/07/22 documented as of this encounter
--- OUTSIDE RECORDS SUMMARY | 2023-12-11 18:48 | XMS_ITS | Encounter Summary ---
Author Organization [facility] [place] [address] Care Team Providers Care Ordnance Technician Name Role Phone Charli Jaramillo MD Primary Care Provider [phone] Encounter Details Date Type Department Care Team (Latest Contact Info) Description 02/11/2013 8:14 AM EST - 02/11/2013 11:59 PM EST Hospital [place] [address] CLINIC, Ozzie Hsieh MD [facility] [place] [address] Non-ischemic cardiomyopathy; Heart failure chronic systolic dysfunction; Alcohol use; LBBB (left bundle branch block); Complete heart block; Cardiac pacemaker; HX SUDDEN CARDIAC ARREST; Pericarditis; Pulmonary embolism; 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?; Ischemic cardiomyopathy Discharge Disposition: Home Social History Tobacco [...] Sign Reading Time Taken Comments Blood Pressure 139/82 02/11/2013 8:00 AM EST Pulse 59 02/11/2013 8:00 AM EST Temperature 35.6 ??C (96 ??F) 02/11/2013 8:00 AM EST Respiratory Rate 18 02/11/2013 8:00 AM EST Oxygen Saturation 99% 02/11/2013 8:00 AM EST Inhaled Oxygen Concentration - - Weight - - Height - - Body Mass Index - - documented in this encounter Discharge Instructions * Discharge Instructions* Jael Bains RN - 02/11/2013 10:01 AM EST [facility] Vascular and Interventional Radiology Discharge Instructions For Your Puncture Site Activity and Diet: Go Home and rest quietly for the remainder of the day. You may resume your normal activities tomorrow. Resume your usual diet after the procedure. Bandage: There is a sterile dressing over the puncture site consisting of small gauze with a clear dressing (Tegaderm). This dressing should be left in place for 24 hours. If the clear dressing becomes loose you should place tape over the edges to secure it in place. Bathing: Do not take a shower until 24 hours after your procedure; after this time you may shower with the dressing in place, then remove it and pat your skin dry. You may use a bandaid to cover the site if there is any drainage. When to call your healthcare provider: If you notice bleeding or a bulge from the puncture site, you should apply firm pressure over the site for 10-15 minutes, keeping the site covered and call your doctor. If you are still bleeding after 10-15 minutes, reapply pressure, and have someone drive you to the nearest Emergency Department, or call 911. If you develop pain, redness, drainage or swelling at or around the puncture site. If you develop fever equal to or greater than 101F and/or shaking chills. When to call the Interventional Radiology Department: Please call with any questions or concerns. If it is during regular office hours, please call [phone]. If it is after regular office hours, or on weekends or holidays, please call [phone] and ask to speak to the Rn Lpn [employer] customs and border protection officer for Interventional Radiology. You may resume your regular diet as tolerated. IV site -- slight redness, or tenderness is normal, you can use a warm compress. If tenderness and redness increases or foul drainage occurs, please contact your M. D. 04/01/11 documented in this encounter Medications at Time of Discharge Medication Sig Dispensed Refills Start Date End Date fxoxfao-fkyisrokmtjup-egey eine (EXCEDRIN MIGRAINE) 250-250-65 mg per tablet [...] tablet 0 01/11/2011 COREG CR 40 mg [id number]:Heart failure,Non-ischemic cardiomyopathy TAKE 1 CAPSULE (40MG) BY MOUTH DAILY 90 capsule 3 02/01/2013 01/30/2014 losartan (COZAAR) 50 mg tabletIndications:Other primary cardiomyopathies Take 1 tablet by mouth daily. 30 tablet 3 08/17/2012 08/19/2013 warfarin (COUMADIN) 5 mg tabletIndications:Pulmonar y embolism Take 1-2 tablets by mouth daily. 60 tablet 5 08/01/2012 02/19/2013 documented as of this encounter Progress Notes * Joselyn Arguello PA - 02/08/2013 9:30 AM EST Images from the original note were not included. PRE-PROCEDURE VIR NOTE Date of : 1945 Age: 67 y.o. PCP: CHARLI JARAMILLO MD Referring Physician: Dr. Ozzie Fernando Indication: Pre device venogram for upgrade to biventricular ICD implantation Planned Procedure: Venogram with intervention, if needed Chief Complaint/Diagnosis: 67 year old male with NICM (EF 35%), NYHA II-III CHF symptoms, on coumadin with left chest wall dual chamber pacemaker with RV lead in RV apex. Plan per cardiology is to undergo a biventricular ICD implantation in February. Request has been placed for a venogram for pre-procedural planning should there be left sided venous occlusion. Pertinent Past Medical/Surgical History: Patient Active Problem List Diagnosis Code ??? Non-ischemic cardiomyopathy 425.4 ??? Heart failure chronic systolic dysfunction 428.9 ??? Alcohol use V69.8 ??? LBBB (left bundle branch block) 426.3 ??? Complete heart block 426.0 ??? Cardiac pacemaker V45.01 ??? HX SUDDEN CARDIAC ARREST V12.53 ??? Pericarditis 423.9 ??? Pulmonary embolism 415.19 ??? 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 786.50 Past Surgical History Procedure Date ??? Colonoscopy, diagnostic 03/31/2011 COLONOSCOPY, DIAGNOSTIC performed by ISAEL CODY at [facility] END[facility]COPY Allergies Allergen Reactions ??? Lasix (Furosemide) Rash Current Outpatient Prescriptions on File Prior to Encounter Medication Sig Dispense Refill ??? COREG CR 40 mg CM24 TAKE [...] by mouth nightly. 30 tablet 0 ??? warfarin (COUMADIN) 5 mg tablet Take 1-2 tablets by mouth daily. 60 tablet 5 Pertinent ROS: as per HPI History Social History ??? Marital Status: Spouse Name: N/A Number of Children: N/A ??? Years of Education: N/A Social History Main Topics ??? Smoking status: Former Smoker Types: Cigarettes Quit date: 01/12/1996 ??? Smokeless tobacco: Never Used Comment: stopped 15 years ??? Alcohol Use: 1 drink a day ??? Drug Use: ??? Sexually Active: Other Topics Concern ??? Not on file Social History Narrative ??? No narrative on file Labs: Lab Results Component Value Date WBC 9.2 12/26/2012 HCT 48.3 12/26/2012 PLATELET 182 12/26/2012 INR 1.6* 12/26/2012 INR 2.2* 08/10/2012 BUN 16 12/26/2012 Lab Results Component Value Date ALKPHOS 50 12/26/2012 AST 18 12/26/2012 ALBUMIN 4.1 12/26/2012 BILIDIR 0.2 12/26/2012 BILITOT 1.1 12/26/2012 ALT 16 12/26/2012 Imaging: Physical exam, ASA class, Mallampati pending. Assessment / Plan: 67 year old male with NICM and NYHA Class II-III CHF symptoms, on coumadin with right sided dual chamber pacemaker. Will plan to perform a venogram with possible intervention for pre-biventricular ICD implantation in early February. Check INR on day of procedure. Medications to discontinue: None Prophylactic antibiotic: None Planned access site / position: TBD Addendum: The patient's history and physical exam have been reviewed and completed. There has been no interval change from that of the pre-operative history and physical exam done within the last 30 days. Risks and benefits discussed and patient consented to the procedure. Physical Exam Heart: RRR Lungs: clear ASA Classification: ASA 2 - Patient with mild systemic disease with no functional limitations Mallampati Classification: II (soft palate, uvula, fauces visible) * Mirtha Castillo RN - 02/06/2013 10:32 AM EST [facility] NURSING DATABASE Name: JATINDER MORRELL Date of : 1945 AGE 67 y.o. Address: [address] [address] (home) Mobile: No relevant phone numbers on file. Referring Provider: Ozzie Fernando Reason for Visit: Venogram with intervention if needed (Pre device upgrade to bi v icd, r/o stenosis ) Allergies Allergen Reactions ??? Lasix (Furosemide) Rash Pertinent PMH: Patient Active Problem List Diagnosis Code ??? Non-ischemic cardiomyopathy 425.4 ??? Heart failure chronic systolic dysfunction 428.9 ??? Alcohol use V69.8 ??? LBBB (left bundle branch block) 426.3 ??? Complete heart block 426.0 ??? Cardiac pacemaker V45.01 ??? HX SUDDEN CARDIAC ARREST V12.53 ??? Pericarditis 423.9 ??? Pulmonary embolism 415.19 ??? 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 786.50 Pertinent PSH: Past Surgical History Procedure Date ??? Colonoscopy, diagnostic 03/31/2011 COLONOSCOPY, DIAGNOSTIC performed by ISAEL CODY at [facility] Date/Procedure Comments: 02/11/13 venogram No meds Laboratory Results: Lab Results Component Value Date INR 1.6* 12/26/2012 INR 2.2* 08/10/2012 Lab Results Component Value Date PT 19.2* 12/26/2012 Lab Results Component Value Date BUN 16 12/26/2012 Lab Results Component Value Date CREATININE 0.95 12/26/2012 Lab Results Component Value Date K 3.9 12/26/2012 Lab Results Component Value Date PLATELET 182 12/26/2012 Medications: Prior to Admission medications Medication Sig Start Date End Date Taking? Authorizing Provider COREG CR 40 mg CM24 TAKE 1 CAPSULE (40MG) BY MOUTH DAILY 02/01/13 Brady Ugarte MD chlorhexidine (HIBICLENS) 4 % external liquid Apply topically daily as needed. Shower/bathe from head to toe with Chlorhexidine the night before the procedure and the morning of the procedure. . 11/20/12 Ozzie Fernando MD ibuprofen (ADVIL;MOTRIN) 200 mg tablet Take 400 mg by mouth every 8 hours. ProviderLona MD hydroCODone-acetaminophen (VICODIN) 5-500 mg per tablet Take 1 tablet by mouth every 6 hours as needed. ProviderLona MD colchicine (COLCRYS) 0.6 mg tablet Take 1 tablet by mouth 2 times daily. 08/17/12 Xin Grewal APRN omeprazole (PRILOSEC) 20 mg capsule Take 1 capsule by mouth daily. 08/17/12 08/17/13 Xin Grewal APRN losartan (COZAAR) 50 mg tablet Take 1 tablet by mouth daily. 08/17/12 Xin Grewal APRN warfarin (COUMADIN) 5 mg tablet Take 1-2 tablets by mouth daily. 08/01/12 Brady Ugarte MD bumetanide (BUMEX) 0.5 mg tablet Take 1 tablet by mouth daily. 07/10/12 Mary Perez APRN sildenafil (VIAGRA) 100 mg tablet Take 1 tablet by mouth once as needed. 01/11/11 Mary Perez APRN zolpidem (AMBIEN) 10 mg tablet Take 1 tablet by mouth nightly. 01/11/11 Mary Perez APRN For outpatient procedures: This patient has been informed that they require a concrete mixing truck driver to drive them home after this procedure. In the absence of a concrete mixing truck driver, IR will not be able to perform this procedureand will need to reschedule. Pt verbalized understanding of these instructions during the pre-procedure education via phone. documented in this encounter Procedure Notes * Jatinder Lawrence MD - 02/11/2013 10:20 AM ESTProcedure(s): IR VENOGRAM UPPER EXTREMITY IR Procedure Note A [id number] Procedure: US guided left basilic vein access Left axillo-subclavian venogram History/indication: 67 yr old M patient with NICM (EF 35%), NYHA II-III CHF symptoms, with left chest wall dual chamber pacemaker with RV lead in RV apex. Plan per cardiology is to undergo a biventricular ICD implantation in February. Request has been placed for a venogram for pre-procedural planning. Technique: The left upper arm was prepped and draped in a sterile fashion. 1% lidocaine (<10 cc)was used as local anesthesia. Using US guidance, the left basilic vein was identified and accessed with a 21 gauge needle. A 0.018 wire was advanced centrally. A short 4 Fr dilator was placed. Dilutecontrast was injected and digital subtraction images were obtained to evaluate the axillary, subclavian and brachiocephalic veins. The patient tolerated the procedure well. Complications: None immediate; EBL=0 Medications: none Contrast: 10 cc non-ionic/omnipaque Fluoroscopy time: 0.1 minutes Findings: 1. The left axillary, subclavian and brachiocephalic veins are patent without narrowing. There is no significant collateral formation. The superior vena cava is also patent without stenosis. 2. Left sided pacer/ICD leads. Attending: Anita Lawrence MD documented in this encounter Plan of Treatment Upcoming Encounters Date Type Department Care Team (Late st Contact Info) Description 02/26/2024 10:00 AM EST Hospital Encounter [place] [address] Arrived documented as of this encounter Procedures Procedure Name Priority Date/Time Associated Diagnosis Comments IR VENOGRAM UPPER EXTREMITY Routine 02/11/2013 9:59 AM EST Ischemic cardiomyopathy documented in this encounter Results * IR venogram (02/11/2013 9:59 AM EST) Anatomical Region Laterality Modality Vascular X-Ray Angiograph y 02/11/2013 9:59 AM EST Narrative 02/12/2013 9:11 AM EST IR Procedure Note ?? A [id number] ?? Procedure: US guided left basilic vein access ?? Left axillo-subclavian venogram ?? History/indication: 67 yr old M patient with NICM (EF 35%), NYHA II-III CHF symptoms, with left chest wall dual chamber pacemaker with RV lead in RV apex. Plan per cardiology is to undergo a biventricular ICD implantation in February. Request has been placed for a venogram for pre-procedural planning. ?? Technique: The left upper arm was prepped and draped in a sterile fashion. 1% lidocaine (<10 cc) was used as local anesthesia. Using US guidance, the left basilic vein was identified and accessed with a 21 gauge needle. A 0.018 wire was advanced centrally. A short 4 Fr dilator was placed. Dilute contrast was injected and digital subtraction images were obtained to evaluate the axillary, subclavian and brachiocephalic veins. The patient tolerated the procedure well. ?? Complications: None immediate; EBL=0 ?? Medications: none ?? Contrast: 10 cc non-ionic/omnipaque ?? Fluoroscopy time: 0.1 minutes ?? Findings: ?? 1. The left axillary, subclavian and brachiocephalic veins are patent without narrowing. There is no significant collateral formation. The superior vena cava is also patent without stenosis. ?? 2. Left sided pacer/ICD leads. ?? Attending: Anita Lawrence MD ?? Procedure Note Jatinder Lawrence MD - 02/12/2013 IR Procedure Note A [id number] Procedure: US guided left basilic vein access Left axillo-subclavian venogram History/indication: 67 yr old M patient with NICM (EF 35%), NYHA II-IIICHF symptoms, with left chest wall dual chamber pacemaker with RV lead in RVapex. Plan per cardiology is to undergo a biventricular ICD implantation inDecember. Request has been placed for a venogram for pre-procedural planning. Technique: The left upper arm was prepped and draped in a sterile fashion.1% lidocaine (<10 cc) was used as local anesthesia. Using US guidance, theleft basilic vein was identified and accessed with a 21 gauge needle. A 0.018wire was advanced centrally. A short 4 Fr dilator was placed. Dilute contrastwas injected and digital subtraction images were obtained to evaluate theaxillary, subclavian and brachiocephalic veins. The patient tolerated the procedurewell. Complications: None immediate; EBL=0 Medications: none Contrast: 10 cc non-ionic/omnipaque Fluoroscopy time: 0.1 minutes Findings: 1. The left axillary, subclavian and brachiocephalic veins are patentwithout narrowing. There is no significant collateral formation. The superior venacava is also patent without stenosis. 2. Left sided pacer/ICD leads. Attending: Anita Lawrence MD Ozzie Fernando MD [facility] IR ORDERABLES documented in this encounter Visit Diagnoses Diagnosis Non-ischemic cardiomyopathy Other primary cardiomyopathies Heart failure chronic systolic dysfunction Heart failure, unspecified Alcohol use Other problems related to lifestyle LBBB (left bundle branch block) Other left bundle branch block Complete heart block Atrioventricular block, complete Cardiac pacemaker Cardiac pacemaker in situ HX SUDDEN CARDIAC ARREST Pericarditis Unspecified disease of pericardium Pulmonary embolism Other pulmonary embolism and infarction 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 Chest pain, unspecified Ischemic cardiomyopathy Other specified forms of chronic ischemic heart disease documented in this encounter Administered Medications Inactive Administered Medications - up to 3 most recent administrations Medication Order MAR Action Action Date Dose Rate Site iohexol (OMNIPAQUE) 350 mg iodine/mL injection 17,500 mg 17,500 mg (50 mL), Intravenous, ONCE PRN, 1 dose, Starting on Mon02/11/13 at 1544, Until Mon02/11/13 at 0945, Per Protocol, Angio/IR (Intra-Procedure), Routine Given 02/11/2013 9:45 AM EST 10 mLs documented in this encounter Care Teams Ordnance Technician Relationship Specialty Start Date End Date Charli Jaramillo MD [address] [place] [address] [address] [facility] [address] [place] [address] PCP - General 03/25/11 08/07/22 documented as of this encounter
--- OUTSIDE RECORDS SUMMARY | 2023-12-11 18:48 | XMS_ITS | Encounter Summary ---
[place] [address] Care Team Providers Care Microfilm Technician Name Role Phone Charli Jaramillo MD Primary Care Provider [phone] Encounter Details Date Type Department Care Team (Latest Contact Info) Description 02/18/2013 8:36 AM EST - 02/19/2013 11:04 AM EST Hospital Encounter [facility] [address] [place] [address] Ozzie Fernando MD [facility] [place] [address] Non-ischemic cardiomyopathy; Complete heart block; Cardiac pacemaker; Heart failure chronic systolic dysfunction; Other primary cardiomyopathies; Insomnia; Biventricular ICD (implantable cardiac defibrillator) in place [...] Sign Reading Time Taken Comments Blood Pressure 124/82 02/19/2013 8:01 AM EST Pulse 76 02/19/2013 8:01 AM EST Temperature 36.8 ??C (98.2 ??F) 02/19/2013 8:01 AM ES T Respiratory Rate 16 02/19/2013 8:01 AM EST Oxygen Saturation 96% 02/19/2013 8:01 AM EST Inhaled Oxygen Concentration - - Weight 100.2 kg (220 lb 15.8 oz) 02/18/2013 5:08 PM EST Height 195.6 cm (6' 5.01) 02/18/2013 5:08 PM ES T Body Mass Index 26.2 02/18/2013 5:08 PM EST documented in this encounter Discharge Instructions * Patient Instructions* Kirit Khan Daisy - 02/19/2013 9:53 AM EST Final recommendations: 1. Standard post implant discharge instructions (see below): 2. Resume previous home medications. 3. Follow up with [place] [facility] [place] to be arranged. FOLLOW UP: [...] Sig Dispensed Refills Start Date End Date urdketg-rulcxewtmrsyd-zymd eine (EXCEDRIN MIGRAINE) 250-250-65 mg per tablet [...] tablet 0 01/11/2011 COREG CR 40 mg GB20Creymwpyssv:Heart failure,Non-ischemic cardiomyopathy TAKE 1 CAPSULE (40MG) BY MOUTH DAILY 90 capsule 3 02/01/2013 01/30/2014 losartan (COZAAR) 50 mg tabletIndications:Other primary cardiomyopathies Take 1 tablet by mouth daily. 30 tablet 3 08/17/2012 08/19/2013 documented as of this encounter Progress Notes * Serge Mcnally RN - 02/19/2013 10:54 AM EST Care Management (OCM)/ Clinical Cooker Mechanic ( CRC) CRC Service ; Cardiology, Cardio Thoracic and Thoracic Serge GORDON, RN Pager [phone] Record reviewed and patient discussed with multidisciplinary [...] [employer] Model# 7122Q-58 cm Serial #[id number] Implanted 02/18/2013 Bipolar, steroid-tipped, active-fixation DF-4 lead Access: Axillary vein Location: Right ventricular apical septum (old) Atrial electrode: Medtronic, Model # 5568-52 cm Serial # [id number] Implanted 06/14/2012 Bipolar, steroid-tipped, active-fixation IS-1 lead Access: Not known Location Right atrium anterolateral Coronary sinus electrode: [employer] 1458Q/86 Serial number [id number] Implanted 02/18/2013 Quadripolar passive active fixation lead Access: Subclavian vein Location: Coronary sinus, posterolateral vein Pulse generator: [employer] [id number] Serial number [id number] Implanted 02/18/2013 CAREER TECHNOLOGY TEACHER ICD Location: Subcutaneous Old ventricular lead : Medtronic 5075 Serial number [id number] (capped 02/18/2013) Old pulse generator: Medtronic ADDR01 Serial number [id number] (removed 02/18/2013) Detection and termination of ventricular [...] Trivial pleural effusion on chest x-ray Elevated JQT=645 a-->3.8 AN ESR=53 on index presentation --> [...] with left bundle branch block, PVCs, QRS dhqofwiw=490 msec. Symptomatic CHB 06/13/12- s/p DDDR pacemaker [...] Carvedilol ROSY/ARB Yes Losartan Spironolactone no Previously [id number], d/c secondary to side effects (hives), no [...] use ??? LBBB (left bundle branch block) QHH=131 ms New Symptomatic CHB 05/30-->declined pacer at initial presentation while traveling -S/p temp pacer-->Permanent DDDR pacer -LVEF~ 50-55%, ICD not indicated, but at risk for V paced rhythm dyssynchrony ??? Complete heart block Symptomatic bradycardia with CHB and LBBB, HR in the 20-30s Initially seen at a local ER, pacemaker recommended, but declined While in ICU, [place], called [facility] in cath report, but likely symptomatic bradycardia and CHB CHB- s/p temporary pacer 06/13/2012 - cath: Angiogram, mild irregularities of LAD, LCXF dominant, 30-40% mid RCA - No LV gram done S/p DDD-R Pacemaker Medtronic Adapta Dual Chamber Model # ADDR01, Serial number [id number] -[place], [place] ??? Cardiac pacemaker Indications: Symptomatic CHB, with slow VR ~ 20-30 Current Platform: DDD-R Pacemaker Medtronic Adapta Dual Chamber Model # ADDR01, Serial number [id number] -[place], [place] ??? HX SUDDEN CARDIAC ARREST Probably [...] yesterday for a device upgrade to a CAREER TECHNOLOGY TEACHER-D from his dual- chamber ICD for worsening [...] treat as an outpatient. Kirit Khan, MSN, MANUAL EQUIPMENT MECHANIC, CCDS documented in this encounter H&P Notes * Lata Azevedo MD - 02/18/2013 9:25 AM EST Jimmie Mccauley [id number] 02/18/2013 67 y.o. Cardiology EP History and Physical PCP: CHARLI JARAMILLO MD I performed a history and physical exam of the patient and discussed the management of this patient Admission Diagnosis: 1) Non ischemic CM, for upgrade to CAREER TECHNOLOGY TEACHER-D Date of Evaluation: 02/18/2013 Date of Admission: [...] to admission Medication Sig Dispense Refill ??? povgjsr-gdkkxepwezzzv-zefurylz (EXCEDRIN MIGRAINE) 250-250-65 mg per tablet Take [...] Assessment: 1. For upgrade of PPM to CAREER TECHNOLOGY TEACHER-D 2. General anesthesia Plan: 1. The working [...] 02/20/2013 1:22 PM ESTAssociated Order(s): SCAN DOC: VP OF CUSTOMER EXPERIENCE STRATEGY documented in this encounter Miscellaneous Notes * Miscellaneous - Provider, Scanning - 02/20/2013 1:22 PM EST * Miscellaneous - Provider, Scanning - 02/20/2013 1:22 PM EST * Discharge [...] [employer] Model# 7122Q-58 cm Serial #[id number] Implanted 02/18/2013 Bipolar, steroid-tipped, active-fixation DF-4 lead Access: Axillary vein Location: Right ventricular apical septum (old) Atrial electrode: Medtronic, Model # 5568-52 cm Serial # [id number] Implanted 06/14/2012 Bipolar, steroid-tipped, active-fixation IS-1 lead Access: Not known Location Right atrium anterolateral Coronary sinus electrode: [employer] 1458Q/86 Serial number [id number] Implanted 02/18/2013 Quadripolar passive active fixation lead Access: Subclavian vein Location: Coronary sinus, posterolateral vein Pulse generator: [employer] [id number] Serial number [id number] Implanted 02/18/2013 CAREER TECHNOLOGY TEACHER ICD Location: Subcutaneous Old ventricular lead : Medtronic 5075 Serial number [id number] (capped 02/18/2013) Old pulse generator: Medtronic ADDR01 Serial number [id number] (removed 02/18/2013) Detection and termination of ventricular [...] Trivial pleural effusion on chest x-ray Elevated GRC=660 a-->3.8 AN ESR=53 on index presentation --> [...] with left bundle branch block, PVCs, QRS wjyzrkjy=014 msec. Symptomatic CHB 06/13/12- s/p DDDR pacemaker [...] Carvedilol ROSY/ARB Yes Losartan Spironolactone no Previously [id number], d/c secondary to side effects (hives), no [...] use ??? LBBB (left bundle branch block) ZLK=213 ms New Symptomatic CHB 05/30-->declined pacer at initial presentation while traveling -S/p temp pacer-->Permanent DDDR pacer -LVEF~ 50-55%, ICD not indicated, but at risk for V paced rhythm dyssynchrony ??? Complete heart block Symptomatic bradycardia with CHB and LBBB, HR in the 20-30s Initially seen at a local ER, pacemaker recommended, but declined While in ICU, [place], called [facility] in cath report, but likely symptomatic bradycardia and CHB CHB- s/p temporary pacer 06/13/2012 - cath: Angiogram, mild irregularities of LAD, LCXF dominant, 30-40% mid RCA - No LV gram done S/p DDD-R Pacemaker Medtronic Adapta Dual Chamber Model # ADDR01, Serial number [id number] -[place], [place] ??? Cardiac pacemaker Indications: Symptomatic CHB, with slow VR ~ 20-30 Current Platform: DDD-R Pacemaker Medtronic Adapta Dual Chamber Model # ADDR01, Serial number [id number] -[place], [place] ??? HX SUDDEN CARDIAC ARREST Probably bradycardic induced, presenting with symptomatic CHB, and requiring defibrillation 05/2012 History of Presentation: 67 year old male with nonischemic cardiomyopathy referred for consideration of CAREER TECHNOLOGY TEACHER-D. He has had a decline in exertional tolerance with NYHA II-III class CHF symptoms, recent echocardiography demonstrating LVEF of 35%, and a widened QRS (161ms paced, 170ms LBBB prior to developing CHB). Decline in EF over the past six months remained unclear, but upgrade to a CAREER TECHNOLOGY TEACHER-D was recommended and agreed upon. Hospital Course: Patient was admitted yesterday for an upgrade to a CAREER TECHNOLOGY TEACHER-D. The procedure was acutely successful and the [...] Medication List Continued medications, unchanged Dose Details izpghhq-oerdedecnxgie-omiavqxi (EXCEDRIN MIGRAINE) 250-250-65 mg per tablet 1 [...] home medications. 3. Follow up with the [facility] [place] to be arranged. FOLLOW UP: [...] 04/02/2013 1:40 PM Mary Perez APRN Cardiology [phone] [facility] Joint Appt Nurse One Cardiology Intake, JIM SIMPSON 4A [phone] [facility] 05/21/2013 10:45 AM Ciaran Medel RN Cardiology [phone] [facility] Joint Appt Nurse One Cardiology IntakeJIM [phone] [facility] * Miscellaneous - Provider, Scanning - 02/18/2013 11:26 AM EST documented in this encounter Plan of Treatment Upcoming Encounters Date Type Department Care Team (Late st Contact Info) Description 02/26/2024 10:00 AM EST Hospital Encounter Non-[place] [address] Arrived documented as of this encounter Procedures Procedure Name Priority Date/Time Associated Diagnosis Comments VP OF CUSTOMER EXPERIENCE STRATEGY SCAN 02/20/2013 1:22 PM EST URINALYSIS WITH [...] in this encounter Results * SCAN DOC: VP OF CUSTOMER EXPERIENCE STRATEGY (02/20/2013 1:22 PM EST) Anatomical Region Laterality [...] Urine Dipstick Hazy(A) Clear CERNER MILLENNIUM Specific [place] Urine Automated 1.034(H) 1.002 - 1.030 CERNER [...] 2 VIEWS Clinical History s/p upgrade to CAREER TECHNOLOGY TEACHER-D Comparison Chest radiograph 07/10/2012, 06/13/2012. Technique PA [...] 2 VIEWS Clinical History s/p upgrade to CAREER TECHNOLOGY TEACHER-D Comparison Chest radiograph 07/10/2012, 06/13/2012. Technique PA [...] 0.05 x10(3)/mcL CERNER MILLENNIUM Blood specimen (specimen) 02/18/2013 8:52 AM EST 02/18/2013 8:57 AM EST Ozzie Fernando MD HEMATOLOGY ORDERABLE S Performing Organization Address [facility] Co de Phone Number CERBAILEY ALCANTARAENNIUM * Nucleated Red Blood Cells (02/18/2013 8:52 AM EST) NRBC% auto 0.0 0.0 - 0.2 % CERNER MILLENNIUM NRBC Absolute 0.000 0.000 - 0.012 x10(3)/mcL CERNER MILLENNIUM Blood specimen (specimen) 02/18/2013 8:52 AM EST 02/18/2013 8:57 AM EST Narrative Resulting Agency Comment Spec In Lab Ozzie Fernando MD HEMATOLOGY ORDERABLE S Performing Organization Address [facility] de Phone Number [facility] * (ABNORMAL) BMP w/fasting Glucose (02/18/2013 8:52 AM EST) Glucose Fasting 103(H) 65 - 99 mg/dL CERNER MILLENNIUM Comment: ?Fasting* Glucose Interpretive Criteria Normal ?65-99 [...] of Diabetes Mellitus, Position Statement from the [place] [employer]. ??Diabetes Care, Volume 33, Supplement 1, Mar 2009 Blood Urea Nitrogen 20 10 - 20 mg/dL CERNER MILLENNIUM Creatinine 1.06 0.80 - 1.50 mg/dL CERNER MILLENNIUM Comment: Please note that the pediatric reference intervals supplied above were not validated at [facility]. Results from pediatric patients should be interpreted [...] In Lab Ozzie Fernando MD CHEMISTRY ORDERABLES Performing Organization Address [facility]/ZIP Co de Phone Number CERBAILEY ALCANTARAENNIUM * CBC (with Diff) (02/18/2013 8:52 AM [...] MD HEMATOLOGY ORDERABLE S Performing Organization Address [facility] de Phone Number CERBAIELY BENNETTIUM * Prothrombin Time (02/18/2013 8:52 AM EST) Prothrombin Time 13.2 12.0 - 15.0 sec CERNER MILLENNIUM Comment: [facility] Transfusion Committee Guidelines: INR less than 2.0, [...] Lab Ozzie Fernando MD HEMATOLOGY ORDERABLE S [place] documented in this encounter Visit Diagnoses Diagnosis Non-ischemic cardiomyopathy Other primary cardiomyopathies Complete heart block Atrioventricular block, complete Cardiac pacemaker Cardiac pacemaker in situ Heart failure chronic systolic dysfunction Heart failure, unspecified Other primary cardiomyopathies Insomnia Insomnia, unspecified Biventricular ICD (implantable cardiac defibrillator) in place Automatic implantable cardiac defibrillator in situ Biventricular ICD (implantable cardiac defibrillator) in place Automatic implantable cardiac defibrillator in situ documented in this encounter Administered Medications Inactive [...] Recovery, Routine 1438 (Given - Provider: Chante Brantley RN)1444 (Given - Provider: Chante Brantley RN)1457 (Given - Provider: Chante Brantley RN) hydroCODone-acetaminophen (VICODIN) 5-500 mg per tablet 1 tablet (CANCELED) 1 tablet, Oral, EVERY 6 HOURS PRN, Starting on Mon02/18/13 at 1611, Until Mon02/19/13 at 1305, Pain, Maximum dose of acetaminophen is 4000 mg from all sources in 24 hours., Routine 0232 (Given - Provid er: Zaida Rodriguez RN) documented in this encounter Care Teams Microfilm Technician Relationship Specialty Start Date End Date Charli Jaramillo MD [address] [address] PCP - General 03/25/11 08/07/22 documented as of this encounter
--- OUTSIDE RECORDS SUMMARY | 2023-12-11 18:48 | XMS_ITS | Encounter Summary ---
Author Organization [facility] Address [facility] [place] [address] Care Team Providers Care Data Entry Analyst Name Role Phone Charli Jaramillo MD Primary Care Provider [phone] Reason for Visit * Reason Comments Chest Pain Shortness of Breath Encounter Details Date Type Department Care Team (Late st Contact Info) Description 09/13/2012 10:10 AM EDT Follow-Up Cardiology at [address] [address] Ciaran Medel RN Kono, Alan T, MD [facility] [place] [address] Heart failure, unspecified (Primary Dx); Other primary cardiomyopathies; 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?; Chest pain; Complete heart block; Heart failure chronic systolic dysfunction; Non-ischemic cardiomyopathy; LBBB (left bundle branch block); Pericarditis Discharge Disposition: Home Social History Tobacco Use [...] Sign Reading Time Taken Comments Blood Pressure 118/74 09/13/2012 9:30 AM EDT Pulse 78 09/13/2012 9:30 AM EDT Temperature - - Respiratory Rate - - Oxygen Saturation 96% 09/13/2012 9:30 AM EDT Inhaled Oxygen Concentration - - Weight 101.6 kg (224 lb) 09/13/2012 9:30 AM EDT Height 200.7 cm (6' 7.02) 09/13/2012 9:30 AM ED T Body Mass Index 25.22 09/13/2012 9:30 AM EDT documented in this encounter Patient Instructions * Patient Instructions* Brady Ugarte MD - 09/13/2012 10:59 AM EDT Overall, you stated that you have had clinical improvement after the initiation of ibuprofen and colchicine initiated for 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 You also were noted to have a pulmonary embolism, a blood clot to monitor smaller pulmonary arteries. Your most recent echocardiogram did demonstrate a slight decrease in your cardiac function from a baseline ejection fraction of 40-45% to the current of 34%. We will need to monitor this carefully. We occasionally see a drop in cardiac function when someone has a ventricular paced rhythm from the pacemaker. Depending on your clinical response and cardiac function with follow up echocardiograms, he may be a candidate for an upgrade to a defibrillator or resynchronization pacemaker/defibrillator device. We will continue this discussion but no urgent decision needs to be made at this time. Laboratory tests today demonstrates normal blood counts, electrolytes, kidney function. The 2 markers of inflammation has improved significantly with the initiation of the 2 medications. The INR today was 2.5, therapeutic You mentioned that you have had occasional diarrhea which is a common side effect of colchicine. I would like you to decrease your ibuprofen dose to avoid gastric irritation and possible bleeding complications from the NSAIDs. Medication changes: 1. Decrease ibuprofen from 2 tablets 3 times a day to one tablet 3 times a day, and if possible, toone tablet twice a day. 2. You may decrease her colchicine to one tablet a day if he had diarrhea, but for now, please continue twice daily dosing. 3. Continue yourr Coumadin, if INR is therapeutic. documented in this encounter Progress Notes * Brady Ugarte MD - 09/12/2012 10:28 PM EDT Images from the original note were not included. [facility] [place] [address] [address] CARDIOMYOPATHY/HEART FAILURE SERVICE OUTPATIENT CLINIC NOTE Jatinder Morrell 09/13/2012 Primary Care Provider: CHARLI JARAMILLO MD Referring Provider: Charli Jaramillo CHIEF COMPLAINT: Chief Complaint Patient presents with ??? Chest Pain ??? Shortness of Breath HISTORY OF PRESENT ILLNESS: Jatinder Morrell is a 67 y.o. patient seen in routine follow up in the [facility] Heart Failure [facility], and in the interim, he has noted significant improvement in his chest pain since the addition of ibuprofen and colchicine. He still has occasional pleuritic chest pain with deep inspiration but denies having severe chest pain, malaise, and dyspnea that he had before. A followup echocardiogram did demonstrate a slight decrease in his ejection fraction to 34% although without clinical heart failure orvolume overload. He has been taking his makeda and ARB. He may be a candidate for spironolactone if his LV function persists. He denies any fever, chills, and he has had a good week last week but still has occasional chest pain. He has been walking 2 miles per day on a flat surface without dyspnea. He can walk up a flight of stairs to 4 times a day without difficulty. He has not yet tried to walk up inclines/hills. He denies any thromboembolic or bleeding events on Coumadin and his INR is now 2.5. He has noted occasional diarrhea on the colchicine which he otherwise has been tolerating relatively well. His inflammatory markers have improved significantly on therapy and I do not hear a pericardial friction rub on exam. From his last visit with me: The patient feels better than he did when evaluated by Mary Perez APRN. New symptoms of shortness of breath, chest discomfort, dizziness, and diaphoresis 2 weeks after his device implant prompted an evaluation which [...] the dyspnea. He has not had any r ecurrence of the lightheadedness, diaphoresis, or prolonged chest pain. However, he still notes at least 2 types of chest pain syndromes. [...] patient did drive for 3 days for prolonged hours at a time. He also notes a [...] edema. Does havesome SOB with activity. From my most recent note after DDD pacer implant: The patient was traveling on vacation and apparently cut his finger and reported to a local emergency room in [place]. He was told that he had a lowheart rate in july need a pacemaker but he declined any further evaluation as he was asymptomatic. 2weeks later, while [place], the patient felt weak, tired, with dizziness and reported to the local police department who then called for an ambulance to take him to the local hospital. He was notedto be in complete heart block with bradycardia and heart rates in the 25-30 be permitted range. While in the ICU, he apparently had cardiac arrest, [...] followup chest x-ray showed no evidence of p neumothorax. I do not have EKGs available for my review. Since returning to [facility], the patient actually feels well with no major complaints. In retrospect, he had no symptoms during the holidays, or winter and was able to do his usual activities without any limitation. Specifically, he denied any palpitations, syncope, lower extremity edema, or dyspnea on exertion. He had been taking his medications religiously and had not had any lightheaded or near syncopal episodes prior to this. There were no new medications or dbig-[id number] therapy initiated during this timeframe. On discharge, the patient was started on amlodipine presumably for labile hypertension. He currently feels well with no major clinical complaints although he does have some tenderness at the pacer site. Hewas evaluated by EP cardiology today-see their separate [...] Trivial pleural effusion on chest x-ray Elevated FKF=335 and ESR=53 on index presentation ??? Pulmonary embolism New clinical dyspnea, chest [...] with left bundle branch block, PVCs, QRS dhqbbokq=329 msec. Symptomatic CHB 06/13/12- s/p DDDR pacemaker [...] Yes Carvedilol ROSY/ARB Yes Losartan Spironolactone no Amlodipine Yes Initiated 05/30 [place] AFIB? no [...] use ??? LBBB (left bundle branch block) OHI=239 ms New Symptomatic CHB 05/30-->declined pacer at initial presentation while traveling -S/p temp pacer-->Permanent DDDR pacer -LVEF~ 50-55%, ICD not indicated, but at risk for V paced rhythm dyssynchrony ??? Complete heart block Symptomatic bradycardia with CHB and LBBB, HR in the 20-30s Initially seen at a local ER, pacemaker recommended, but declined While in ICU, [place], called [facility] in cath report, but likely symptomatic bradycardia and CHB CHB- s/p temporary pacer 06/13/2012 - cath: Angiogram, mild irregularities of LAD, LCXF dominant, 30-40% mid RCA - No LV gram done S/p DDD-R Pacemaker Medtronic Adapta Dual Chamber Model # ADDR01, Serial number [id number] -[place], [place] ??? Cardiac pacemaker Indications: Symptomatic CHB, with slow VR ~ 20-30 Current Platform: DDD-R Pacemaker Medtronic Adapta Dual Chamber Model # ADDR01, Serial number [id number] -[place], [place] ??? HX SUDDEN CARDIAC ARREST Probably [...] Outpatient Prescriptions Marked as Taking for the 09/13/12 encounter (Follow-Up) with Brady Ugarte MD Medication [...] General Denies Fever, chills, night sweats. Weight down approximately 10 pounds now stable. Sleep habits usually good Eyes No visual loss, double vision, drainage, eye pain, dry eyes, or other sxs reported. ENT No sore throat, dry mouth, eptistaxis or other sxs reported. Cardiac improvement of his chest discomfort t as noted above, but denying any palpitations, recent near syncope-status post DDDR pacemaker for symptomatic bradycardia and complete heart block. Recent CORNEJO, no recurrence of Orthopnea, PND, LE [...] rashes, dry skin, or other sxs reported. PHYSICAL EXAMINATION: Vital Signs: Wt Readings from Last 3 Encounters: 09/13/12 101.606 kg (224 lb) 09/13/12 101.606 kg (224 lb) 08/24/12 103.738 kg (228 lb 11.2 oz) Temp Readings from Last 3 Encounters: No data found for Temp BP Readings from Last 3 Encounters: 09/13/12 118/74 09/13/12 118/74 08/24/12 130/80 Pulse Readings from Last 3 Encounters: 09/13/12 78 09/13/12 78 08/24/12 64 SpO2: [96 %] General -Alert, oriented, NAD. [...] not displaced. No RV lift. JVP~ less than6-7cm H20, without AJR. No pericardial friction rub noted on deep exhalation, leaningforward maneuvers Abdomen -soft, non-tender, no significant organomegaly, masses or bruits Extremities -without pretibial or ankle edema, warm to feet. Pulses 1-2+ Neuro -intact CN, motor LAB STUDIES: Recent Results (from the past 72 hour(s)) PROTHROMBIN TIME Component Value Range PT 27.7 (*) 12.0 - 15.0 sec INR 2.5 (*) 0.9 - 1.1 PRO-BRAIN NATRIURETIC PEPTIDE Component Value Range ProBNP 753 (*) <=125 pg/mL BASIC METABOLIC PANEL (NON-FASTING) Component Value Range Glucose Lvl 95 60 - 199 mg/dL BUN 19 10 - 20 mg/dL Creatinine 0.96 0.80 - 1.50 mg/dL Sodium 141 135 - 145 mmol/L Potassium 3.7 3.5 - 5.0 mmol/L Chloride 104 98 - 107 mmol/L CO2 22 22 - 31 mmol/L Anion Gap 15 5 - 15 mmol/L Calcium 9.2 8.5 - 10.5 mg/dL Estimated GFR >60 >=60 SEDIMENTATION RATE Component Value Range Sed Rate 13 0 - 15 mm/hr HIGH SENSITIVITY CRP Component Value Range CRP High Sens 10.2 CBC (WITH DIFF) Component Value Range WBC 9.1 4.0 - 10.0 x10(3)/mcL RBC 5.06 4.63 - 6.08 x10(6)/mcL Hemoglobin 14.4 13.7 - 17.5 gm/dL Hematocrit 42.7 40.0 - 51.0 % MCV 84.4 79.0 - 92.0 fL MCH 28.5 25.6 - 32.2 pg MCHC 33.7 32.0 - 36.5 gm/dL Platelets 250 145 - 370 x10(3)/mcL RDWSD 40.1 35.0 - 46.0 fL RDWCV 13.5 10.9 - 14.4 % MPV 10.1 9.0 - 12.0 fL DIFFERENTIAL, AUTOMATED Component Value Range Neutrophils % 59.8 34.0 - 71.0 % Neutr Abs (ANC) 5.44 1.50 - 6.30 x10(3)/mcL Lymphocytes % 29.7 19.0 - 53.0 % Lymphocytes Abs 2.7 1.0 - 3.6 x10(3)/mcL Monocytes % 6.1 4.0 - 13.0 % Monocyte Abs 0.6 0.2 - 1.0 x10(3)/mcL Eosinophils % 4.0 0.0 - 7.0 % Eosinophils Abs 0.4 0.0 - 0.5 x10(3)/mcL Basophils % 0.3 0.0 - 2.0 % Basophils Abs 0.0 0.0 - 0.2 x10(3)/mcL Immature Gran % 0.10 0.00 - 0.66 % Elva Gran Abs 0.01 0.00 - 0.05 x10(3)/mcL Results for JATINDER MORRELL ( ) as of 09/13/2012 10:51 Ref. Range 01/05/2010 09:26 01/11/2011 08:56 01/11/2012 11:01 06/26/2012 07:32 07/10/2012 10:58 08/17/2012 08:44 08/24/2012 11:54 09/13/2012 08:33 ProBNP Latest Range: <=125 pg/mL 200 (H) 63 240 (H) 234 (H) 1094 (H) 980 (H) 792 (H) 753 (H) Results for JATINDER MORRELL ( ) as of 09/13/2012 10:51 Ref. Range 08/17/2012 08:44 08/24/2012 11:54 09/13/2012 08:33 Sed Rate Latest Range: 0-15 mm/hr 58 (H) 35 (H) 13 Results for JATINDER MORRELL ( ) as of 09/13/2012 10:51 Ref. Range 08/17/2012 08:44 08/24/2012 11:54 09/13/2012 08:33 CRP High Sens No range found 243.7 16.6 10.2 CARDIAC STUDIES BP 129/73 SUMMARY: 1. The left ventricle [...] additional findings. PROBLEMS: Complete heart block S/p DDD pacer Heart failure chronic systolic dysfunction Appears better compensated, no dyspnea on exertion, able to walk 2 miles on flat surface, and walk up/down stairs without dyspnea LBBB (left bundle branch block) S/p pacer now Ventricular paced rhythm, and decreas Non-ischemic cardiomyopathy Slight drop in EF, ? V paced pacermaker induced, will need to follow closely Patient counseled regarding possible need for ICD or CHIEF [employer]-D upgrade Pericarditis Clinical improvement with NSAID and colchicine, improvement of chest pain duration and frequency Significant improvement of inflammatory markers No pericardial friction rub, JVP flat ASSESSMENT: The patient has had clinical improvement with the addition of ibuprofen and colchicine for presumedpost pacemaker implant pericarditis. With this, he has had significant improvement of both his CRP and ESR and on physical exam, I do not hear any pericardial friction rub. As he has had some diarrhea, we could decrease the colchicine on those days but I would continue it for the moment as he stillhas some intermittent chest pain. I would like to have a decrease his NSAIDs to avoid GI side effects and risk for bleeding especially on Coumadin. I a lengthy discussion with the patient reviewing his clinical course and rationale for therapy. I am somewhat concerned about a decrease in ejection fr action on the most recent echocardiogram and if persistent or worsening on medical therapy, he would be a candidate for spironolactone and possible upgrade of his pacemaker to a CHIEF [employer]-D. This could be related to his ventricular paced rhythm in the setting of underlying cardiomyopathy. He remains on Coumadin for PE which [...] be aware of discussed. - decrease ibuprofen from 2 tablets 3 times a day for one tablet 2 times a day, and if possible, one tablet twice a day, patient informed to take medications with meals - If recurrent diarrhea, decreased colchicine to one tablet daily as needed, but continue twice daily if possible for now. - No Changes in cardiac medications, but may be a candidate for spironolactone if persistent LV systolic dysfunction. We'll defer for now 2. The following labs, referrals or other testing advised: - Repeat echocardiogram in 2-3 months, and consider EP cardiology referral for CHIEF ENGINE[employer]OV[employer]-D if persistent LV systolic dysfunction - Pacemaker reprogramming in 3 months post-implant per EP cardiology - I reviewed his images from his cardiac cath. 3. COUNSELING: Specific issues or questions addressed on this visit: - As above - I cautioned him to limit his alcohol use - Reviewed his laboratories, EKG, and recent clinical course and available discharge documents fromhis recent hospitalization in [place] 4. Cardiology follow-up scheduled for: - 1 Months or earlier as clinically indicated - PCP and other subspecialists as previously arranged Brady Ugarte MD, [facility] Hydroelectric Machinery Mechanicinstructor knitting Cardiology Director, Cardiovascular Critical Care Continuous Mining Machine Coal Miner, Advanced Heart Failure and Cardiomyopathy Program [facility] documented in this encounter Miscellaneous Notes * Assessment & Plan Note - Brady Ugarte MD - 09/13/2012 10:59 AM EDTAssociated Problem(s): Pericarditis Clinical improvement with NSAID and colchicine, improvement of chest pain duration and frequency Significant improvement of inflammatory markers No pericardial friction rub, JVP flat * Assessment & Plan Note - Brady Ugarte MD - 09/13/2012 10:55 AM EDTAssociated Problem(s): Non-ischemic cardiomyopathy Slight drop in EF, ? V paced pacermaker induced, will need to follow closely Patient counseled regarding possible need for ICD or CHIEF [employer]OV[employer]-D upgrade * Assessment & Plan Note - Brady Ugarte MD - 09/13/2012 10:51 AM EDTAssociated Problem(s): LBBB (left bundle branch block) S/p pacer now Ventricular paced rhythm, and decreas * Assessment & Plan Note - Brady Ugarte MD - 09/13/2012 10:44 AM EDTAssociated Problem(s): Heart failure chronic systolic dysfunction Appears better compensated, no dyspnea on exertion, able to walk 2 miles on flat surface, and walk up/down stairs without dyspnea * Assessment & Plan Note - rBady Ugarte MD - 09/13/2012 10:42 AM EDTAssociated Problem(s): Complete heart block S/p DDD pacer documented in this encounter Plan of Treatment Upcoming Encounters Date Type Department Care Team (Late st Contact Info) Description 02/26/2024 10:00 AM EST Hospital Encounter Non-Invasive [place] [address] Arrived documented as of this encounter Procedures Procedure Name Priority Date/Time Associated Diagnosis Comments DIFFERENTIAL, AUTOMATED Routine 09/13/2012 8:33 AM EDT SEDIMENTATION RATE Routine 09/13/2012 8: 33 AM EDT Heart failure, unspecified Other primary cardiomyopathies PROTHROMBIN TIME Routine 09/13/2012 8:33 AM EDT Chest pain Complete heart block Heart failure chronic systolic dysfunction Non-ischemic cardiomyopathy CBC (WITH DIFF) Routine 09/13/2012 8:33 AM EDT Heart failure, unspecified Other primary cardiomyopathies CRP, CARDIAC RISK (HS CRP) Routine 09/13/2012 8:33 AM EDT Heart failure, unspecified Other primary cardiomyopathies PRO-BRAIN NATRIURETIC PEPTIDE Routine 09/13/2012 8:33 AM EDT Heart failure, unspecified Other primary cardiomyopathies BASIC METABOLIC PANEL STAT 09/13/2012 8:33 AM EDT Heart failure, unspecified Other primary cardiomyopathies documented in this encounter Results * Differential, Automated (09/13/2012 8:33 AM EDT) Neutrophil % 59.8 34.0 - 71.0 % CERNER MILLENNIUM Neutrophil Absolute 5.44 1.50 - 6.30 x10(3)/mcL CERNER MILLENNIUM Lymph % 29.7 19.0 - 53.0 % CERNER MILLENNIUM Lymphocytes Abs 2.7 1.0 - 3.6 x10(3)/mcL CERNER MILLENNIUM Monocyte % 6.1 4.0 - 13.0 % CERNER MILLENNIUM Monocyte Abs 0.6 0.2 - 1.0 x10(3)/mcL CERNER MILLENNIUM Eos % 4.0 0.0 - 7.0 % CERNER MILLENNIUM Eosinophils [...] 0.05 x10(3)/mcL CERNER MILLENNIUM Blood specimen (specimen) 09/13/2012 8:33 AM EDT 09/13/2012 8:46 AM EDT Brady Ugarte MD HEMATOLOGY ORDERABLE S [facility] * (ABNORMAL) Prothrombin Time (09/13/2012 8:33 AM EDT) Prothrombin Time 27.7(H) 12.0 - 15.0 sec CERNER MILLENNIUM Comment: [facility] Transfusion Committee Guidelines: INR less than 2.0, PTT less than OR equal to 43.5 seconds, or Fibrinogen greater than or equal to 100 mg/dl indicate adequate procoagulant activity for hemostasis in patients without underlying bleeding disorders. International Normalization Ratio 2.5(H) 0.9 - 1.1 CERNER MILLENNIUM Blood specimen (specimen) 09/13/2012 8:33 AM EDT 09/13/2012 8:46 AM EDT Narrative Resulting Agency Comment Spec In Lab Brady Ugarte MD HEMATOLOGY ORDERABLE S [facility] * CBC (with Diff) (09/13/2012 8:33 AM EDT) White Blood Cell 9.1 4.0 - 10.0 x10(3)/mcL CERNER MILLENNIUM Red Blood Cell 5.06 4.63 - 6.08 x10(6)/mcL CERNER MILLENNIUM Hemoglobin 14.4 13.7 - 17.5 gm/dL CERNER MILLENNIUM Hematocrit 42.7 40.0 - 51.0 % CERNER MILLENNIUM Mean Cell Volume 84.4 79.0 - 92.0 fL CERNER MILLENNIUM Mean Cell Hemoglobin 28.5 25.6 - 32.2 pg CERNER MILLENNIUM Mean Cell Hemoglobin Concentration 33.7 32.0 - 36.5 gm/dL CERNER MILLENNIUM Platelet 250 145 - 370 x10(3)/mcL CERNER MILLENNIUM RDW Standard Deviation 40.1 35.0 - 46.0 fL CERNER MILLENNIUM RDW coefficient of variation 13.5 10.9 - 14.4 % CERNER MILLENNIUM Mean Platelet Volume 10.1 9.0 - 12.0 fL CERNER MILLENNIUM Blood specimen (specimen) 09/13/2012 8:33 AM EDT 09/13/2012 8:46 AM EDT Narrative Resulting Agency Comment Spec In Lab Brady Ugarte MD HEMATOLOGY ORDERABLE S CERNER MILLENNIUM * (ABNORMAL) pro-Brain Natriuretic Peptide (09/13/2012 8:33 AM EDT) NT-proBNP 753(H) <=125 pg/mL CERNER MILLENNIUM Blood specimen (specimen) 09/13/2012 8:33 AM EDT 09/13/2012 8:46 AM EDT Narrative Resulting Agency Comment Spec In Lab Brady Ugarte MD CHEMISTRY ORDERABLES Performing Organization Address [facility] de Phone Number NELSON ONEILL * High Sensitivity CRP (09/13/2012 8:33 AM EDT) C-Reactive Protein High Sensitivity 10.2 mg/L [facility] Comment: Interpretations: 1) For accurate cardiac risk [...] prevention. ??Circulation 2003; [id number] Blood specimen (specimen) 09/13/2012 8:33 AM EDT 09/13/2012 8:46 AM EDT Narrative Resulting Agency Comment Spec In Lab Brady Ugarte MD CHEMISTRY ORDERABLES Performing Organization Address [facility] Co de Phone Number NELSON ONEILL * Sedimentation rate (09/13/2012 8:33 AM EDT) Sedimentation Rate Automated 13 0 - 15 mm/hr [facility] Blood specimen (specimen) 09/13/2012 8:33 AM EDT 09/13/2012 8:46 AM EDT Narrative Resulting Agency Comment Spec In Lab Brady Ugarte MD HEMATOLOGY ORDERABLE S CERNER MILLENNIUM * Basic Metabolic Panel (non-fasting) (09/13/2012 8:33 AM EDT) Glucose 95 60 - 199 mg/dL CERNER MILLENNIUM Comment:Diabetes: >=200 mg/d L plus symptoms Blood Urea Nitrogen 19 10 - 20 mg/dL CERNER MILLENNIUM Creatinine 0.96 0.80 - 1.50 mg/dL CERNER MILLENNIUM Comment: Please note that the pediatric reference intervals supplied above were not validated at [facility]. Results from pediatric patients should be interpreted in conjunction to the patient's age, height and muscle mass. Sodium 141 135 - 145 mmol/L CERNER MILLENNIUM Potassium 3.7 3.5 - 5.0 mmol/L CERNER MILLENNIUM Comment: Please note: ??Patients with WBC >100,000 may have falsely elevated Potassium levels. ??For accurate Potassium quantification in these patients send serum separator tube (gold top) for subsequent determinations. ??Contact the Clinical Chemistry Laboratory if there are any questions. Chloride 104 98 - 107 mmol/L CERNER MILLENNIUM Carbon Dioxide 22 22 - 31 mmol/L CERNER MILLENNIUM Anion Gap 15 5 - 15 mmol/L CERNER MILLENNIUM Calcium 9.2 8.5 - 10.5 mg/dL CERNER MILLENNIUM Est [...] internet browser. http://www.nkdep.nih.gov/lab-evaluation.shtml http://www.kidney.org/professionals/ Blood specimen (specimen) 09/13/2012 8:33 AM EDT 09/13/2012 8:46 AM EDT Narrative Resulting Agency Comment Spec In Lab Brady Ugarte MD CHEMISTRY ORDERABLES NELSON ONEILL documented in this encounter Visit Diagnoses Diagnosis Heart failure, unspecified- Primary Other primary cardiomyopathies 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? Chest pain, unspecified Complete heart block Atrioventricular block, complete Heart failure chronic systolic dysfunction Heart failure, unspecified Non-ischemic cardiomyopathy Other primary cardiomyopathies LBBB (left bundle branch block) Other left bundle branch block Pericarditis Unspecified disease of pericardium documented in this encounter Care Teams Data Entry Analyst Relationship Specialty Start Date End Date Charli Jaramillo MD [address] [place] [address] PCP - General 03/25/11 08/07/22 documented as of this encounter
--- OUTSIDE RECORDS SUMMARY | 2023-12-11 18:48 | XMS_ITS | Encounter Summary ---
[place] [address] Care Team Providers Care Life Science Research Assistant Name Role Phone Carlos Valdez MD Primary Care Provider Encounter Details Date Type Department Care Team (Latest Contact Info) Description 09/21/2012 Anti-Coag Telephone Visit Cardiology at [address] [phone] Charlotte Dasilva RN Pulmonary embolism (Primary Dx) [...] Progress Notes * Charlotte Dasilva RN - 09/21/2012 3:45 PM EDT Anticoagulation Therapy Note: Indication: pe Duration of Therapy: Ongoing Therapeutic Range:: 2.0-3.0 INR: 2.2 Drawn by: YARI Monitored By: Cardio/ kono Next INR Due: 09/28/12 Warfarin dose : Increased Decreased x Maintained [...] changes: Include Prescription/OTC/Herbal x Yes No Comment: Decreasing ibuprofen and colchicine Have you missed any dose of Coumadin this past week? Yes x No Comment: Dietary / Alcohol Changes: Yes x No Comment: Any Illness/Cold Sx/ Diarrhea/ Constipation> 48 hours: Yes x No Comment: Any Significant Change Activity Level: Yes xx No Comment: Upcoming Invasive Procedure Planned: Yes x No Comment: Travel Plans: Yes Travel precautions reviewed x No Comment: Patient understands and agrees with plan of care. documented in this encounter Plan of Treatment Upcoming Encounters Date Type Department Care Team (Late st Contact Info) Description 02/26/2024 10:00 AM EST Hospital Encounter Non-Invasive [place] [phone] Arrived documented as of this encounter Procedures Procedure Name Priority Date/Time Associated Diagnosis Comments EXTERNAL LAB RESULTS Routine 09/21/2012 documented in this encounter Results * (ABNORMAL) External Lab Results (09/21/2012) International Normalization Ratio 2.2(Exter nal Lab) 0.9 - 1.1 Comment:[facility] 09/21/2012 Historical Provider CHEMISTRY ORDERAB LES documented in this encounter Visit Diagnoses Diagnosis Pulmonary embolism- Primary Other pulmonary embolism and infarction documented in this encounter Care Teams Life Science Research Assistant Relationship Specialty Start Date End Date Carlos Valdez MD [address] [place], [place] [address]Y [facility] [address] [place] [address] PCP - General 03/25/11 08/07/22 documented as of this encounter
--- OUTSIDE RECORDS SUMMARY | 2023-12-11 18:48 | XMS_ITS | Encounter Summary ---
[place] [address] Care Team Providers Care Supervisor Car And Yard Name Role Phone Carlos Valdez MD Primary Care Provider [phone] Encounter Details Date Type Department Care Team (Latest Contact Info) Description 12/27/2012 Anti-Coag Telephone Visit Cardiology at [address] [phone] Yasmin Garland, RN Pulmonary embolism Social History Tobacco Use Types Packs/Day Years Used Date Smoking Tobacco: Former Cigarettes Q uit: 01/12/1996 Smokeless Tobacco: Never Comments:stopped 15 years Sex and Gender Information Value Date Recorded Sex Assigned at Not on file Gender Identity Not on file Sexual Orientation Not on file documented as of this encounter Progress Notes * Yasmin Garland, RN - 12/28/2012 9:20 AM EDT Anticoagulation Therapy Telephone Note: Indication: PE Anticipated End Date: onoging Therapeutic Range:: 2-3 INR:1.6 Drawn by: YARI Monitored By:Cardio/Torito Next INR Due: 3 weeks Warfarin dose : Increased Decreased x Maintained Comment: Saw Dr. Ugarte 12/26 and instructed pt to continue same dose of 5 mg x 5 days, 2.5 mg x 2 days Falls Risk Assessment: Have you had any falls in the last month? How many times have you fallen? Conditions at time of fall? Bleeding: Epistaxis Black tarry stools Gingival bleeding Abnormal bruising Hematuria Other: Hemoptysis x No bleeding / bruising reported Comment: Symptoms of recurring primary event: Chest Pain Dyspnea Palpitations Headache Dizziness Edema Confusion Slurred Speech Weakness Visual changes Tender / Red / Swollen Extremities x No symptoms reported Other: Comment: Recent medication changes: Include Prescription/OTC/Herbal Yes x No Comment Have you missed any dose of Coumadin this past week? Yes x No Comment Dietary / Alcohol Changes: x Yes No Comment eating more salads Any Illness/Cold Sx/ Diarrhea/ Constipation> 48 hours: Yes x No Comment: Any Significant Change Activity Level: Yes x No Comment: Upcoming Invasive Procedure Planned: Yes x No Comment: Travel Plans: x Yes Travel precautions reviewed No Comment: traveling x 3 weeks Patient understands and agrees with plan of care. documented in this encounter Plan of Treatment Upcoming Encounters Date Type Department Care Team (Late st Contact Info) Description 02/26/2024 10:00 AM [facility] Hospital Encounter [place] [phone] Arrived documented as of this encounter Visit Diagnoses Diagnosis Pulmonary embolism Other pulmonary embolism and infarction documented in this encounter Care Teams Supervisor Car And Yard Relationship Specialty Start Date End Date Carlos Valdez MD [address] [place] [address] PCP - General 03/25/11 08/07/22 documented as of this encounter
--- OUTSIDE RECORDS SUMMARY | 2023-12-11 18:48 | XMS_ITS | Encounter Summary ---
[place] [address] Care Team Providers Care Manager Metal Name Role Phone Carlos Valdez MD Primary Care Provider Encounter Details Date Type Department Care Team (Latest Contact Info) Description 11/28/2012 Anti-Coag Telephone Visit Cardiology at [address] [phone] Yasmin Garland, RN Pulmonary embolism Social History Tobacco Use Types Packs/Day Years Used Date Smoking Tobacco: Former Cigarettes Q uit: 01/12/1996 Smokeless Tobacco: Never Comments:stopped 15 years Sex and Gender Information Value Date Recorded Sex Assigned at Not on file Gender Identity Not on file Sexual Orientation Not on file documented as of this encounter Progress Notes * Yasmin Garland, RN - 11/28/2012 8:54 AM EDT Anticoagulation Therapy Telephone Note: Indication: PE Anticipated End Date: ongoing Therapeutic Range:: 2-3 INR:2.1 Drawn by: YARI Monitored By:Cardio/Torito Next INR Due: 3-4 weeks (will be here for appt) Warfarin dose : Increased Decreased x Maintained Comment:continue 5 mg x 5 days, 2.5 mg x 2 days Falls Risk Assessment: Have you had any falls in the last month? no How many times have you fallen? Conditions [...] Dietary / Alcohol Changes: Yes x No Comment Any Illness/Cold Sx/ Diarrhea/ Constipation> 48 hours: [...] st Contact Info) Description 02/26/2024 10:00 AM [facility] Hospital Encounter Non[place] [phone] Arrived documented as of this encounter Procedures Procedure Name Priority Date/Time Associated Diagnosis Comments EXTERNAL LAB RESULTS Routine 11/28/2012 documented in this encounter Results * (ABNORMAL) External Lab Results (11/28/2012) International Normalization Ratio 2.1(Exter nal Lab) 0.9 - 1.1 Comment:[facility] Historical Provider CHEMISTRY ORDERAB LES documented in this encounter Visit Diagnoses Diagnosis Pulmonary embolism Other pulmonary embolism and infarction documented in this encounter Care Teams Manager Metal Relationship Specialty Start Date End Date Carlos Valdez MD [address] [facility] [address] [place] [address] PCP - General 03/25/11 08/07/22 documented as of this encounter
--- OUTSIDE RECORDS SUMMARY | 2023-12-11 18:48 | XMS_ITS | Encounter Summary ---
Author Organization [facility] [place] [address] Care Team Providers Care Weatherization Operations Manager Name Role Phone Carlos Valdez MD Primary Care Provider [phone] Encounter Details Date Type Department Care Team (Late st Contact Info) Description 02/18/2013 10:11 AM EST Anesthesia Event [place] [phone] Carter Bains MD [facility] [address] [place] [address] Anesthesia Record Procedure Summary Procedure Name Responsible Anesthesiologist Anesthesia Start Time Anesthesia Stop Time ELECTROPHYSIOLOGY PROCEDURE Carter Bains MD 02/18/13 1011 02/18/13 1430 Events Date Time Event Comment 02/18/2013 0914 1011 AN Verify 1011 Start 1015 An Start Data 1020 An Induction 1020 An Intubation 1030 Anesthesia Ready 1223 Break/Relief In LENORA GALE SON, REFRACTORY GRINDER OPERATOR 1248 Break/Relief Out 1322 Quick Note Bite block plac ed 1337 Quick Note Testing device 1419 Extubation/LMA Out 1419 an stop data 1430 Stop Meds Name Total Midazolam 2 mg fentaNYL 100 mcg lidocaine IV 130 mg propofol 250 mg Rocuronium 70 mg PHENYLephrine 640 mcg ePHEDrine 10 mg Ondansetron 4 mg Dexamethasone 8 mg Neostigmine 2 mg Glycopyrrolate 0.4 mg ceFAZolin (ANCEF) 2g in dextrose 5% 50 m L 2 g PHENYLephrine INF 9,450 mcg propofol INF 225.45 mg iodixanoL (Visipaque) (320 mg/mL) inject ion solution 20 mL lactated ringers 850 mL lactated ringers 300 mL * Agents Name O2 Air Isoflurane (et) * Blood No blood administrations on file. Lines, Drains, and Airways Type Details Placement Removal (RETIRED) Peripheral IV Line - Single Lumen 02/18/13; 1011; 02/19/13; 1030 02/18/13 1011 by Leslie Roman RN 02/19/13 1030 by Iris Fish RN (RETIRED) Arterial LIne 02/18/13; 1020; 02/18/13; 1526 02/18/13 1020 by Cherelle Hutson CRNA 02/18/13 1526 by Chante Brantley RN (RETIRED) Non-Surgical Airway Mask Ventilation: Adjunct (2); LMA Type: Unique; LMA Size: 4; ETT Type: Cuffed, Oral; ETT Size: 7 mm; Removal Date: 02/18/13; Removal Time: 1419 02/18/13 1020 by Cherelle Hutson CRNA 02/18/13 1419 by Cherelle Hutson CRNA (RETIRED) Peripheral IV Line - Single Lumen 02/18/13; 1025; 02/19/13; 1030 02/18/13 1025 by Cherelle Hutson CRNA 02/19/13 1030 by Iris Fish RN Urethral Catheter 02/18/13; 1058; indwelling double lumen catheter; 100% silicone; 16; inserted; 1; drainage bag to dependent drainage; 02/19/13; 0800 02/18/13 1058 by Sergey Neil RN 02/19/13 0800 by Rodney Cody [employer]ER Incision 02/18/13; 1132; ches t; 03/25/16; 1025 02/18/13 1132 by Sergey Neil RN 03/25/16 1025 by Bekah Gomez RN documented in this encounter Social History [...] OR Notes * Anesthesia Postprocedure Evaluation - Carter Bains MD - 02/19/2013 8:03 AM EST Patient: Jimmie Mccauley Procedure(s) Performed: Procedure(s): ELECTROPHYSIOLOGY PROCEDURE Actual Anesthetic: general Patient location: PACU Post-op pain: Adequate analgesia Post-op nausea: no nausea or vomiting Last Vitals: Filed Vitals: 02/19/13 0449 BP: 117/68 Pulse: 76 Temp: Resp: 14 Post-op cardiovascular and respiratory status: is stable Level of consciousness: awake, alert and oriented Complications: no apparent complications and tolerated the procedure well Fluid Status: normal * Anesthesia Preprocedure Evaluation - Carter Bains MD - 02/18/2013 9:11 AM EST Pre-Anesthesia Evaluation for: Jimmie Mccauley a 67 y.o. male. Procedure(s): ELECTROPHYSIOLOGY PROCEDURE Patient Active Problem List Diagnosis ??? Chest pain- ?post pacer implant [...] Trivial pleural effusion on chest x-ray Elevated LBI=116 a-->3.8 AN ESR=53 on index presentation --> [...] with left bundle branch block, PVCs, QRS exqnlcqc=432 msec. Symptomatic CHB 06/13/12- s/p DDDR pacemaker [...] Carvedilol ROSY/ARB Yes Losartan Spironolactone no Previously [id number], d/c secondary to side effects (hives), no [...] use ??? LBBB (left bundle branch block) QGA=495 ms New Symptomatic CHB 05/30-->declined pacer at initial presentation while traveling -S/p temp pacer-->Permanent DDDR pacer -LVEF~ 50-55%, ICD not indicated, but at risk for V paced rhythm dyssynchrony ??? Complete heart block Symptomatic bradycardia with CHB and LBBB, HR in the 20-30s Initially seen at a local ER, pacemaker recommended, but declined While in ICU, [place], called [facility] in cath report, but likely symptomatic bradycardia and CHB CHB- s/p temporary pacer 06/13/2012 - cath: Angiogram, mild irregularities of LAD, LCXF dominant, 30-40% mid RCA - No LV gram done S/p DDD-R Pacemaker Medtronic Adapta Dual Chamber Model # [id number], Serial number [id number] -[place], [place] ??? Cardiac pacemaker Indications: Symptomatic CHB, with slow VR ~ 20-30 Current Platform: DDD-R Pacemaker Medtronic Adapta Dual Chamber Model # ADDR01, Serial number [id number] -[place], [place] ??? HX SUDDEN CARDIAC ARREST Probably bradycardic induced, presenting with symptomatic CHB, and requiring defibrillation 05/2012 No past medical history on file. Past Surgical History Procedure Date ??? Colonoscopy, diagnostic 03/31/2011 COLONOSCOPY, DIAGNOSTIC performed by ISAEL CODY at [facility] END[facility]COPY History Substance Use Topics ??? Smoking status: Former Smoker Types: Cigarettes Quit date: 01/12/1996 ??? Smokeless tobacco: Never Used Comment: stopped 15 years ??? Alcohol Use: 1 drink a day History Drug Use Allergies Allergen Reactions ??? Lasix (Furosemide) Rash Medications: MAR and/or home medications have been reviewed. Physical Exam: There were no vitals filed for this visit. There is no height or weight on file to calculate BMI. Airway Assessment: Mallampati: IV TM distance: >3 FB Neck ROM: full Cardiovascular Assessment: cardiovascular exam normal Pulmonary Assessment: pulmonary exam normal Dental Assessment: Misc Assessment: Patient is wearing No contact(s). IV access: Peripheral line Anesthesia Plan: ASA 3 general, with a(n) intravenous induction Potentially difficult airway Mal IV on exam. No previous knowledge of difficulty by patient Nothing in chart Large hagen could make this worse Patient informed and understands risk Region - Other Informed Consent: Anesthetic plan and risks discussed with patient. Use of blood products discussed with patient whom. Plan discussed with REFRACTORY GRINDER OPERATOR. Misc. Assessment: documented in this encounter Plan of Treatment Upcoming Encounters Date Type Department Care Team (Late st Contact Info) Description 02/26/2024 10:00 AM EST Hospital Encounter Non-[place] [phone] Arrived documented as of this encounter Visit Diagnoses Not on filedocumented in this encounter Administered Medications Inactive Administered Medications - up to 3 most recent administrations Medication Order MAR Action Action Date Dose Rate Site ceFAZolin (ANCEF) 2g in dextrose 5% 50 mL 2 g, Intravenous, ONCE, 1 dose, On Mon02/18/13 at 0800, EP (Intra-Procedure), Indication for (Active or Suspected): Prophylaxis Given 02/18/2013 10:45 AM EST 2 g dexamethasone (DECADRON) injection PRN, Starting on Mon02/18/13 at 1018, Until Mon02/18/13 at 1430, Anesthesia Intra-op, Routine Given 02/18/2013 10:18 AM EST 8 mg ePHEDrine Sulfate in sodium chloride 0.9% (PF) 50 mg/10 mL (5 mg/mL) injection Syrg PRN, Starting on Mon02/18/13 at 1028, Until Mon02/18/13 at 1430, Anesthesia Intra-op Given 02/18/2013 10:28 AM EST 10 mg fentaNYL 50mcg/mL injection PRN, Starting on Mon02/18/13 at 1020, Until Mon02/18/13 at 1430, Pain, Anesthesia Intra-op, Routine Given 02/18/2013 10:20 AM EST 100 mcg glycopyrrolate (ROBINUL) injection PRN, Starting on Mon02/18/13 at 1343, Until Mon02/18/13 at 1430, Anesthesia Intra-op, Routine Given 02/18/2013 1:43 PM EST 0.4 mg iodixanol (VISIPAQUE) 320 mg iodine/mL injection PRN, Starting on Mon02/18/13 at 1146, Until Mon02/18/13 at 1430, Per Protocol, Anesthesia Intra-op, Routine Given 02/18/2013 11:46 AM EST 20 mLs lactated ringers infusion CONTINUOUS PRN, Starting on Mon02/18/13 at 1000, Until Mon02/18/13 at 1430, Anesthesia Intra-op New Bag 02/18/2013 10:00 AM EST mL lactated ringers infusion CONTINUOUS PRN, Starting on Mon02/18/13 at 1025, Until Mon02/18/13 at 1430, Anesthesia Intra-op New Bag 02/18/2013 10:25 AM EST mL lidocaine (PF) (XYLOCAINE) 100 mg/5 mL (2 %) injection PRN, Starting on Mon02/18/13 at 1020, Until Mon02/18/13 at 1430, Anesthesia Intra-op, Routine Given 02/18/2013 1:39 PM EST 50 mg Given 02/18/2013 10:20 AM EST 80 mg midazolam (VERSED) injection PRN, Starting on Mon02/18/13 at 1011, Until Mon02/18/13 at 1430, Sleep, Anesthesia Intra-op, Routine Given 02/18/2013 10:11 AM EST 2 mg neostigmine (PROSTIGMINE) injection PRN, Starting on Mon02/18/13 at 1343, Until Mon02/18/13 at 1430, Anesthesia Intra-op, Routine Given 02/18/2013 1:43 PM EST 2 mg ondansetron (ZOFRAN) injection PRN, Starting on Mon02/18/13 at 1323, Until Mon02/18/13 at 1430, Nausea, Anesthesia Intra-op, Routine Given 02/18/2013 1:23 PM EST 4 mg PHENYLephrine (AFIA-SYNEPHRINE) 20 mg in sodium chloride 250 mL infusion CONTINUOUS PRN, Starting on Mon02/18/13 at 1020, Until Mon02/18/13 at 1430, Anesthesia Intra-op, Routine Rate/Dose Change 02/18/2013 2:00 PM EST 10 mcg/min 7.5 mL/hr Rate/Dose Change 02/18/2013 1:51 PM EST 20 mcg/min 15 mL/h r Rate/Dose Change 02/18/2013 1:50 PM EST 30 mcg/min 22.5 mL /hr PHENYLephrine HCl in NS (PF) (AFIA-SYNEPHRINE) 0.8 mg/10 mL (80 mcg/mL) injection Syrg PRN, Starting on Mon02/18/13 at 1030, Until Mon02/18/13 at 1430, Anesthesia Intra-op, Routine Given 02/18/2013 1:34 PM EST 80 mcg Given 02/18/2013 1:12 PM EST 80 mcg Given 02/18/2013 11:38 AM EST 80 mcg propofol (DIPRIVAN) 10 mg/mL bolus injection (Anesthesia) PRN, Starting on Mon02/18/13 at 1020, Until Mon02/18/13 at 1430, Anesthesia Intra-op Given 02/18/2013 11:25 AM EST 50 mg Given 02/18/2013 10:20 AM EST 200 mg propofol (DIPRIVAN) infusion CONTINUOUS PRN, Starting on Mon02/18/13 at 1030, Until Mon02/18/13 at 1430, Anesthesia Intra-op, Routine Rate/Dose Change 02/18/2013 11:15 AM EST 20 mcg/kg/min 12 mL/hr New Bag 02/18/2013 10:30 AM EST 30 mcg/kg/min 18 mL/hr rocuronium (ZEMURON) injection PRN, Starting on Mon02/18/13 at 1020, Until Mon02/18/13 at 1430, Anesthesia Intra-op, Routine Given 02/18/2013 11:25 AM EST 20 mg Given 02/18/2013 10:20 AM EST 50 mg documented in this encounter Care Teams Weatherization Operations Manager Relationship Specialty Start Date End Date Carlos Valdez MD [address] [place] [address] PCP - General 03/25/11 08/07/22 documented as of this encounter
--- OUTSIDE RECORDS SUMMARY | 2023-12-11 18:48 | XMS_ITS | Encounter Summary ---
Author Organization [facility] Address [facility] [place] [address] Care Team Providers Care Membership Sales Representative Name Role Phone Charli Jaramillo MD Primary Care Provider [phone] Reason for Visit * Reason Comments Follow-up CM and heart failure , CHB Encounter Details Date Type Department Care Team (Late st Contact Info) Description 11/13/2012 9:40 AM EDT Follow-Up Cardiology at [address] [address] Ciaran Medel RN Kono, Alan T, MD [facility] [address] Heart failure, unspecified (Primary Dx); Other primary cardiomyopathies; Atrioventricular block, complete; Pulmonary embolism; Chest pain; Complete heart block; Heart failure chronic systolic dysfunction; Non-ischemic cardiomyopathy; Cardiac pacemaker; LBBB (left bundle branch block); Pericarditis Discharge [...] Sign Reading Time Taken Comments Blood Pressure 120/86 11/13/2012 8:14 AM EDT Pulse 63 11/13/2012 8:14 AM EDT Temperature - - Respiratory Rate - - Oxygen Saturation 98% 11/13/2012 8:14 AM EDT Inhaled Oxygen Concentration - - Weight 104.8 kg (231 lb 1.6 oz) 11/13/2012 8:14 AM EDT Height 200.7 cm (6' 7.02) 11/13/2012 8:14 AM ED T Body Mass Index 26.02 11/13/2012 8:14 AM EDT documented in this encounter Patient Instructions * Patient Instructions* Brady Ugarte MD - 11/13/2012 10:29 AM EDT Overall, you stated that you have had more good days and bad, and are able to walk 2 miles per day.You still have occasional chest discomfort, typically at rest. Laboratory tests today demonstrates normal blood counts, electrolytes, kidney function, and liver function tests. Your INR was therapeutic at 2.0. Your CRP, a marker of inflammation, it is still low but slightly higher than last visit. The echocardiogram today, formal report still pending, demonstrate similar cardiac dysfunction. A previous ejection fraction was estimated at 34%. Pacemaker interrogation today demonstrates that you have no significant pacemaker problems, your heart is being paced 100% of time. We discussed the options of possible upgrading her pacemaker to a cardiac resynchronization pacemaker with or without a defibrillator. I would like to refer you to our electrophysiology colleagues leanneher open discussions regarding that option. Medication changes: None I would like to continue the colchicine for the presumed pericarditis, and continue the Coumadin for the pulmonary embolism for additional one to 2 months. documented in this encounter Progress Notes * Brady Ugarte MD - 11/12/2012 2:32 PM EDT Images from the original note were not included. [facility] [place] [address] [address] CARDIOMYOPATHY/HEART FAILURE SERVICE OUTPATIENT CLINIC NOTE Jatinder Morrell 11/13/2012 Primary Care Provider: CHARLI JARAMILLO MD Referring Provider: Charli Jaramillo CHIEF COMPLAINT: Chief Complaint Patient presents with ??? Follow-up CM and heart failure, CHB HISTORY OF PRESENT ILLNESS: Jatinder Stevensnoe is a 67 y.o. patient seen in routine follow up in [place] [facility], and in the interim, he continues to do well overall, with more [...] still demonstrates LV dysfunction on medical therapy buta V paced rhythm. He had a prior [...] reported to a local emergency room in [place]. He was told that he had a low heart rate in july need a pacemaker but he declined any further evaluation as he was asymptomatic. 2 weeks later, while [place], the patient felt weak, [...] my review. Since returning to [facility], thepatient actually feels well with no [...] this. There were no new medications or [id number] therapy initiated during this timeframe. On discharge, [...] implant pericarditis? 786.50 Patient Active Problem List Diagnosis ??? Chest [...] Trivial pleural effusion on chest x-ray Elevated JPV=487 a-->3.8 AN ESR=53 on index presentation --> [...] with left bundle branch block, PVCs, QRS luqaggbm=606 msec. Symptomatic CHB 06/13/12- s/p DDDR pacemaker [...] Carvedilol ROSY/ARB Yes Losartan Spironolactone no Previously [id number], d/c secondary to side effects (hives), no [...] use ??? LBBB (left bundle branch block) TNC=285 ms New Symptomatic CHB 05/30-->declined pacer at initial presentation while traveling -S/p temp pacer-->Permanent DDDR pacer -LVEF~ 50-55%, ICD not indicated, but at risk for V paced rhythm dyssynchrony ??? Complete heart block Symptomatic bradycardia with CHB and LBBB, HR in the 20-30s Initially seen at a local ER, pacemaker recommended, but declined While in [facility], [place], called [facility] in cath report, but likely symptomatic bradycardia and CHB CHB- s/p temporary pacer 06/13/2012 - cath: Angiogram, mild irregularities of LAD, LCXF dominant, 30-40% mid RCA - No LV gram done S/p DDD-R Pacemaker Medtronic Adapta Dual Chamber Model # ADDR01, Serial number [id number] -[place], [place] ??? Cardiac pacemaker Indications: Symptomatic CHB, with slow VR ~ 20-30 Current Platform: DDD-R Pacemaker Medtronic Adapta Dual Chamber Model # ADDR01, Serial number [id number] -[place], [place] ??? HX SUDDEN CARDIAC ARREST Probably [...] Outpatient Prescriptions Marked as Taking for the 11/13/12 encounter (Follow-Up) with Brady Ugarte MD Medication Status Sig Dispense Refill ??? ibuprofen (ADVIL;MOTRIN) 200 mg tablet Active Take 400 mg by mouth every 8 hours. ??? hydroCODone-acetaminophen (VICODIN) 5-500 mg per tablet Active Take 1 tablet by mouth every 6 hours as needed. ??? colchicine (COLCRYS) 0.6 mg tablet Active Take 1 tablet by mouth 2 times daily. 60 tablet 3 ??? omeprazole (PRILOSEC) 20 mg capsule Active Take 1 capsule by mouth daily. 30 capsule 11 ??? losartan (COZAAR) 50 mg tablet Active Take 1 tablet by mouth daily. 30 tablet 3 ??? warfarin (COUMADIN) 5 mg tablet Active Take 1-2 tablets by mouth daily. 60 tablet 5 ??? Carvedilol Phosphate (COREG CR) 40 mg CM24 Active Take 40 mg by mouth daily. 30 capsule 5 ??? bumetanide (BUMEX) 0.5 mg tablet Active Take 1 tablet by mouth daily. 30 tablet 0 ??? sildenafil (VIAGRA) 100 mg tablet Active Take 1 tablet by mouth once as needed. 10 tablet 0 ??? zolpidem (AMBIEN) 10 mg tablet Active Take 1 tablet by mouth nightly. 30 [...] recurrence of Orthopnea, PND, LE edema Pulmonary Overall improvement of shortness of breath, [...] Signs: Wt Readings from Last 3 Encounters: 11/13/12 104.826 kg (231 lb 1.6 oz) 11/13/12 104.826 kg (231 lb 1.6 oz) 10/16/12 103.42 kg (228 lb) Temp Readings from Last 3 Encounters: No data found for Temp BP Readings from Last 3 Encounters: 11/13/12 120/86 11/13/12 120/86 10/16/12 116/76 Pulse Readings from Last 3 Encounters: 11/13/12 63 11/13/12 63 10/16/12 62 SpO2: [98 %] General -Alert, oriented, NAD. Affect good [...] hour(s)) PROTHROMBIN TIME Component Value Range PT 23.6 (*) 12.0 - 15.0 sec INR 2.0 (*) 0.9 - 1.1 CBC (WITH DIFF) Component Value Range WBC 8.4 4.0 - 10.0 x10(3)/mcL RBC 5.76 4.63 - 6.08 x10(6)/mcL Hemoglobin 16.9 13.7 - 17.5 gm/dL Hematocrit 48.8 40.0 - 51.0 % MCV 84.7 79.0 - 92.0 fL MCH 29.3 25.6 - 32.2 pg MCHC 34.6 32.0 - 36.5 gm/dL Platelets 181 145 - 370 x10(3)/mcL RDWSD 42.3 35.0 - 46.0 fL RDWCV 13.9 10.9 - 14.4 % MPV 11.0 9.0 - 12.0 fL COMPREHENSIVE METABOLIC PANEL (NON-FASTING) Component Value Range Glucose Lvl 85 60 - 199 mg/dL BUN 19 10 - 20 mg/dL Creatinine 0.98 0.80 - 1.50 mg/dL Sodium 139 135 - 145 mmol/L Potassium 3.7 3.5 - 5.0 mmol/L Chloride 102 98 - 107 mmol/L CO2 25 22 - 31 mmol/L Anion Gap 12 5 - 15 mmol/L Calcium 9.0 8.5 - 10.5 mg/dL Total Protein 6.5 6.4 - 8.3 gm/dL Albumin 4.0 3.2 - 5.2 gm/dL AST 17 0 - 39 unit/L ALT 16 0 - 55 unit/L Alk Phos 56 40 - 120 unit/L Total Bilirubin 0.8 0.2 - 1.3 mg/dL Bili, Direct 0.2 0.0 - 0.3 mg/dL Estimated GFR >60 >=60 HIGH SENSITIVITY CRP Component Value Range CRP High Sens 6.1 DIFFERENTIAL, AUTOMATED Component Value Range Neutrophils % 54.3 34.0 - 71.0 % Neutr Abs (ANC) 4.56 1.50 - 6.30 x10(3)/mcL Lymphocytes % 32.1 19.0 - 53.0 % Lymphocytes Abs 2.7 1.0 - 3.6 x10(3)/mcL Monocytes % 10.1 4.0 - 13.0 % Monocyte Abs 0.8 0.2 - 1.0 x10(3)/mcL Eosinophils % 3.0 0.0 - 7.0 % Eosinophils Abs 0.2 0.0 - 0.5 x10(3)/mcL Basophils % 0.4 0.0 - 2.0 % Basophils Abs 0.0 0.0 - 0.2 x10(3)/mcL Immature Gran % 0.10 0.00 - 0.66 % Elva Gran Abs 0.01 0.00 - 0.05 x10(3)/mcL ECHOCARDIOGRAM TRANSTHORACIC Component Value Range EF 36 Results for JATINDER MORRELL Charo ( ) as of 10/16/2012 11:04 Ref. Range 06/26/2012 07:32 07/10/2012 10:58 08/17/2012 08:44 08/24/2012 11:54 09/13/2012 08:33 10/16/2012 09:59 ProBNP Latest Range: <=125 pg/mL 234 (H) 1094 (H) 980 (H) 792 (H) 753 (H) 532 (H) CARDIAC STUDIES Device Interrogation- reviewed personally. NSR, with 100% V paced rhythm, no other alerts. Echo 07/20/12 BP 129/73 SUMMARY: 1. The [...] no significant change in LV function. PROBLEMS: Non-ischemic cardiomyopathy Persistent LV dysfunction in a patient with known DCM, and now V pacer dependent May be a candidate for TRAY SERVER or TRAY SERVER-D now that he is pacer dependent Heart failure chronic systolic dysfunction Appears well compensated and euvolemic Persistent LV dysfunction borderline LVEF criteria for device therapy Pulmonary embolism No recurrent symptoms on coumadin Cardiac pacemaker No pacer complications, HR 60-90 bpm LBBB (left bundle branch block) Previously with LBBB, now with paced rhythm Complete heart block No recurrent syncope/near syncope Pericarditis Occasional but still persistent chestpain, tolerating colchicine No clinical pericardial rub, or effusion on echo, with slight increase in hs CRP from last visit. ASSESSMENT: He remains stable, but still has occasional chest discomfort and malaise with no clinical heart failure, arrhythmias, and has persistent LV dysfunction with 100% V paced rhythm. We will continue medical therapy, colchicine at low dose, and coumadin with referral to EP cardiology for consideration of TRAY SERVER-D. From his prior discussion: He continues to [...] possible upgrade of his pacemaker to a TRAY SERVER-D. This could be related to his ventricular [...] ibuprofen to one tablet twice a day, or PRN, patient informed to take medications with meals, an wean if stable - continue colchicine one tablet daily - No Changes in cardiac medications, but may be a candidate for spironolactone if persistent LV systolic dysfunction he states that he was intolerant of this medication secondary to urticaria, although reviewing his [facility] chart, he was on spironolactone from 2001 for 2003, and it was discontinued somewhere between 2003- 2005. 2. The following labs, referrals or other testing advised: - EP cardiology referral for TRAY SERVER-D with persistent LV systolic dysfunction - Pacemaker reprogramming post-implant per EP cardiology 3. COUNSELING: Specific issues or questions addressed on this visit: - As above - I cautioned him to limit his alcohol use - Reviewed his laboratories, EKG, and recent clinical course and available discharge documents fromhis recent hospitalization in [place] - reviewed his short-term and long-term prognosis - reviewed echocardiogram - Possible weaning of colchicine, ibuprofen, and discontinuing Coumadin after 6 months of therapy for PE 4. Cardiology follow-up scheduled for: - 1-2 Months or earlier as clinically indicated - PCP and other subspecialists as previously arranged Brady Ugarte MD, [facility] Assistant Film Editorscooter mechanic Cardiology Director, Cardiovascular Critical Care Nurse Healthcare Manager, Advanced Heart Failure and Cardiomyopathy Program [facility] documented in this encounter Miscellaneous Notes * Assessment & Plan Note - Brady Ugarte MD - 11/13/2012 9:57 PM EDTAssociated Problem(s): Pericarditis Occasional but still persistent chestpain, tolerating colchicine No clinical pericardial rub, or effusion on echo, with slight increase in hs CRP from last visit. * Assessment & Plan Note - Brady Ugarte MD - 11/13/2012 10:21 AM EDTAssociated Problem(s): Complete heart block No recurrent syncope/near syncope * Assessment & Plan Note - Brady Ugarte MD - 11/13/2012 10:21 AM EDTAssociated Problem(s): LBBB (left bundle branch block) Previously with LBBB, now with paced rhythm * Assessment & Plan Note - Brady Ugarte MD - 11/13/2012 10:20 AM EDTAssociated Problem(s): Cardiac pacemaker (Resolved 04/02/2013) No pacer complications, HR 60-90 bpm * Assessment & Plan Note - Brady Ugarte MD - 11/13/2012 10:20 AM EDTAssociated Problem(s): Pulmonary embolism No recurrent symptoms on coumadin * Assessment & Plan Note - Brady Ugarte MD - 11/13/2012 10:19 AM EDTAssociated Problem(s): Heart failure chronic systolic dysfunction Appears well compensated and euvolemic Persistent LV dysfunction borderline LVEF criteria for device therapy * Assessment & Plan Note - Brady Ugarte MD - 11/13/2012 10:17 AM EDTAssociated Problem(s): Non-ischemic cardiomyopathy Persistent LV dysfunction in a patient with known DCM, and now V pacer dependent May be a candidate for TRAY SERVER or TRAY SERVER-D now that he is pacer dependent documented in this encounter Plan of Treatment Upcoming Encounters Date Type Department Care Team (Late st Contact Info) Description 02/26/2024 10:00 AM [facility] Hospital Encounter [place] [address] Arrived Scheduled Orders Name Type Priority Associated Diagnoses Orde r Schedule Prothrombin Time Lab Routine Atrioventricular block, complete Pulmonary embolism Expected: 11/13/2012 (Approximate), Expires: 11/05/2013 documented as of this encounter Procedures Procedure Name Priority Date/Time Associated Diagnosis Comments DIFFERENTIAL, AUTOMATED STAT 11/13/2012 7:55 AM EDT ADENOVIRUS ANTIBODIES Routine 11/13/2012 7:55 AM EDT Heart failure, unspecified Other primary cardiomyopathies PROTHROMBIN TIME Routine 11/13/2012 7:55 AM EDT Chest pain Complete heart block Heart failure chronic systolic dysfunction Non-ischemic cardiomyopathy CBC (WITH DIFF) STAT 11/13/2012 7:55 AM EDT Heart failure, unspecified Other primary cardiomyopathies CRP, CARDIAC RISK (HS CRP) Routine 11/13/2012 7:55 AM EDT Heart failure, unspecified Other primary cardiomyopathies COMPREHENSIVE METABOLIC PANEL STAT 11/13/2012 7:55 AM EDT Heart failure, unspecified Other primary cardiomyopathies documented in this encounter Results * Differential, Automated (11/13/2012 7:55 AM EDT) Neutrophil % 54.3 34.0 - 71.0 % CERNER MILLENNIUM Neutrophil Absolute 4.56 1.50 - 6.30 x10(3)/mcL CERNER MILLENNIUM Lymph % 32.1 19.0 - 53.0 % CERNER MILLENNIUM Lymphocytes Abs 2.7 1.0 - 3.6 x10(3)/mcL CERNER MILLENNIUM Monocyte % 10.1 4.0 - 13.0 % CERNER MILLENNIUM Monocyte Abs 0.8 0.2 - 1.0 x10(3)/mcL CERNER MILLENNIUM Eos % 3.0 0.0 - 7.0 % CERNER MILLENNIUM Eosinophils Abs 0.2 0.0 - 0.5 x10(3)/mcL CERNER MILLENNIUM Basophil % 0.4 0.0 - 2.0 % CERNER MILLENNIUM Baso [...] 0.05 x10(3)/mcL CERNER MILLENNIUM Blood specimen (specimen) 11/13/2012 7:55 AM EDT 11/13/2012 8:01 AM EDT Brady Ugarte MD HEMATOLOGY ORDERABLE S Performing Organization Address [facility] de Phone Number NELSON ONEILL * (ABNORMAL) Prothrombin Time (11/13/2012 7:55 AM EDT) Prothrombin Time 23.6(H) 12.0 - 15.0 sec [facility] Comment: [facility] Transfusion Committee Guidelines: INR less than 2.0, PTT less than OR equal to 43.5 seconds, or Fibrinogen greater than or equal to 100 mg/dl indicate adequate procoagulant activity for hemostasis in patients without underlying bleeding disorders. International Normalization Ratio 2.0(H) 0.9 - 1.1 [facility] Blood specimen (specimen) 11/13/2012 7:55 AM EDT 11/13/2012 8:01 AM EDT Narrative Resulting Agency Comment Spec In Lab Brady Ugarte MD HEMATOLOGY ORDERABLE S Performing Organization Address [facility] de Phone Number NELSON ONEILL * High Sensitivity CRP (11/13/2012 7:55 AM EDT) C-Reactive Protein High Sensitivity 6.1 mg/L [facility] Comment: Interpretations: 1) For accurate cardiac [...] prevention. ??Circulation 2003; [phone] Blood specimen (specimen) 11/13/2012 7:55 AM EDT 11/13/2012 8:01 AM EDT Narrative Resulting Agency Comment Spec In Lab Brady Ugarte MD CHEMISTRY ORDERABLES Performing Organization Address [facility] de Phone Number [facility] * Adenovirus Antibodies (11/13/2012 7:55 AM EDT) Pathologist [facility] Adenovirus <1:8 [facility] Comment: REFERENCE RANGE: ??<1:8 INTERPRETIVE CRITERIA: ?<1:8 ??Antibody Not Detected ?> or = 1:8 ??Antibody Detected Single titers of > or = 1:64 are indicative of recent or current infection. ??Titers of 1:8 - 1:32 may be indicative of either past or recent infection, since CF antibody levels persist for only a few months. ??A four-fold or greater increase in titer between acute and convalescent specimens confirms the diagnosis. This test was developed and its performance characteristics have been determined by [employer]. Performance characteristics refer to the analytical performance of the test. Test Performed by: [facility] [facility] [address] [place] [id number] Blood specimen (specimen) 11/13/2012 7:55 AM EDT 11/13/2012 9:16 AM EDT Narrative Resulting Agency Comment Spec In Lab Brady Ugarte MD CHEMISTRY ORDERABLES Performing Organization Address [facility] Co de Phone Number [facility] * Comprehensive metabolic panel (non-fasting) (11/13/2012 7:55 AM EDT) Glucose 85 60 - 199 mg/dL [facility] Comment:Diabetes: >=200 mg/d L plus symptoms Blood Urea Nitrogen 19 10 - 20 mg/dL [facility] Creatinine 0.98 0.80 - 1.50 mg/dL CERNER MILLENNIUM Comment: Please note that the pediatric reference intervals supplied above were not validated at [facility]. Results from pediatric patients should [...] 5 - 15 mmol/L CERNER MILLENNIUM Calcium 9.0 8.5 - 10.5 mg/dL CERNER MILLENNIUM Protein, Total 6.5 6.4 - 8.3 gm/dL CERNER MILLENNIUM Albumin 4.0 3.2 - 5.2 gm/dL CERNER MILLENNIUM Aspartate Aminotransferase 17 0 - 39 unit/L CERNER MILLENNIUM Alanine Aminotransferase 16 0 - 55 unit/L CERNER MILLENNIUM Alkaline Phosphatase 56 40 - 120 unit/L CERNER MILLENNIUM Bilirubin, Total 0.8 0.2 - 1.3 mg/dL CERNER MILLENNIUM Bilirubin, [...] internet browser. http://www.nkdep.nih.gov/lab-evaluation.shtml http://www.kidney.org/professionals/ Blood specimen (specimen) 11/13/2012 7:55 AM EDT 11/13/2012 8:01 AM EDT Narrative Resulting Agency Comment Spec In Lab Brady Ugarte MD CHEMISTRY ORDERABLES Performing Organization Address City/[facility]/ZIP Co de Phone Number NELSON ONEILL * CBC (with Diff) (11/13/2012 7:55 AM EDT) White Blood Cell 8.4 4.0 - 10.0 x10(3)/mcL CERNER MILLENNIUM Red Blood Cell 5.76 4.63 - 6.08 x10(6)/mcL CERNER MILLENNIUM Hemoglobin 16.9 13.7 - 17.5 gm/dL CERNER MILLENNIUM Hematocrit 48.8 40.0 - 51.0 % CERNER MILLENNIUM Mean Cell Volume 84.7 79.0 - 92.0 fL CERNER MILLENNIUM Mean Cell Hemoglobin 29.3 25.6 - 32.2 pg CERNER MILLENNIUM Mean Cell Hemoglobin Concentration 34.6 32.0 - 36.5 gm/dL CERNER MILLENNIUM Platelet 181 145 - 370 x10(3)/mcL CERNER MILLENNIUM RDW Standard Deviation 42.3 35.0 - 46.0 fL CERNER MILLENNIUM RDW coefficient of variation 13.9 10.9 - 14.4 % CERNER MILLENNIUM Mean Platelet Volume 11.0 9.0 - 12.0 fL CERNER MILLENNIUM Blood specimen (specimen) 11/13/2012 7:55 AM EDT 11/13/2012 8:01 AM EDT Narrative Resulting Agency Comment Spec In Lab Brady Ugarte MD HEMATOLOGY ORDERABLE S Performing Organization Address City/[facility] Co de Phone Number NELSON ONEILL documented in this encounter Visit Diagnoses Diagnosis Heart failure, unspecified- Primary Other primary cardiomyopathies Atrioventricular block, complete Pulmonary embolism Other pulmonary embolism and infarction Chest pain Chest pain, unspecified Complete heart block Atrioventricular block, complete Heart failure chronic systolic dysfunction Heart failure, unspecified Non-ischemic cardiomyopathy Other primary cardiomyopathies Cardiac pacemaker Cardiac pacemaker in situ LBBB (left bundle branch block) Other left bundle branch block Pericarditis Unspecified disease of pericardium documented in this encounter Care Teams Membership Sales Representative Relationship Specialty Start Date End Date Charli Jaramillo MD [address] [place] [address] [address] [place] [address] PCP - General 03/25/11 08/07/22 documented as of this encounter
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
--- OUTSIDE RECORDS SUMMARY | 2023-12-11 18:48 | XMS_ITS | Encounter Summary ---
[place] [address] Care Team Providers Care [place] Operator Name Role Phone Carlos Valdez MD Primary Care Provider [phone] Encounter Details Date Type Department Care Team (Latest Contact Info) Description 08/31/2012 Anti-Coag Telephone Visit Cardiology at [address] [address] Kendy Wilkes LPN Pulmonary embolism (Primary Dx) Social History Tobacco Use Types Packs/Day Years Used Date Smoking Tobacco: Former Cigarettes Q uit: 01/12/1996 Smokeless Tobacco: Never Comments:stopped 15 years Sex and Gender Information Value Date Recorded Sex Assigned at Not on file Gender Identity Not on file Sexual Orientation Not on file documented as of this encounter Progress Notes * Kendy Wilkes LPN - 08/31/2012 4:09 PM EDT Anticoagulation Therapy Telephone Note: Indication: PE Anticipated End Date: ongoing Therapeutic Range:: 2-3 INR: 2.7 Drawn by: YARI Monitored By: Leb cards Next INR Due: 09/06/12 Warfarin dose : Increased Decreased x Maintained Comment: continue 5mgx5/days 2.5mgx2/days Falls Risk Assessment How many times have you fallen Have you had any falls recently no Condition @ time of fall Refer for evaluation no Bleeding: Epistaxis Black tarry stools Gingival bleeding Abnormal bruising Hematuria Other: Hemoptysis x No bleeding / bruising reported Comment: Symptoms of recurring primary event: Chest Pain Dyspnea Palpitations Headache Dizziness Edema Confusion Slurred Speech Weakness Visual changes Tender / Red / Swollen Extremities x No symptoms reported Other: Comment: Recent medication changes: Include Prescription/OTC/Herbal Yes x No Comment Have you misssed any dose of Coumadin this past week? Yes x No Comment Dietary / Alcohol Changes: Yes x No Comment Any Illness/Cold Sx/ Diarrhea/ Constipation> 48 hours: Yes x No Comment: Any Significant Change Activity Level: Yes x No Comment: Upcoming Invasive Procedure Planned: Yes No Comment: Travel Plans: Yes Travel precautions reviewed x No Comment: Patient understands and agrees with plan of care. documented in this encounter Plan of Treatment Upcoming Encounters Date Type Department Care Team (Late st Contact Info) Description 02/26/2024 10:00 AM [facility] Hospital Encounter [place] [address] Arrived documented as of this encounter Procedures Procedure Name Priority Date/Time Associated Diagnosis Comments EXTERNAL LAB RESULTS Routine 08/31/2012 documented in this encounter Results * (ABNORMAL) External Lab Results (08/31/2012) International Normalization Ratio 2.7(Exter nal Lab) 0.9 - 1.1 Comment:P.E. Historical Provider CHEMISTRY ORDERAB LES documented in this encounter Visit Diagnoses Diagnosis Pulmonary embolism- Primary Other pulmonary embolism and infarction documented in this encounter Care Teams [place] Operator Relationship Specialty Start Date End Date Carlos Valdez MD [address] [place] [address] PCP - General 03/25/11 08/07/22 documented as of this encounter
--- OUTSIDE RECORDS SUMMARY | 2023-12-11 18:48 | XMS_ITS | Encounter Summary ---
Author Organization [facility] [place] [address] Care Team Providers Care Cooker Soda Name Role Phone Charli Jaramillo MD Primary Care Provider [phone] Reason for Visit * Reason Comments Follow-up Encounter Details Date Type Department Care Team ([facility] st Contact Info) Description 12/26/2012 4:10 PM EDT Follow-Up Cardiology at [address] [phone] Brady Ugarte MD [facility] [place] [address] Heart failure, unspecified; Other primary cardiomyopathies; LBBB (left bundle branch block); Chronic anticoagulation; Chest pain; Complete heart block; Heart failure chronic systolic dysfunction; Non-ischemic cardiomyopathy; Pericarditis; Pulmonary embolism; 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? Discharge [...] Sign Reading Time Taken Comments Blood Pressure 124/70 12/26/2012 4:05 PM EDT Pulse 68 12/26/2012 4:05 PM EDT Temperature - - Respiratory Rate - - Oxygen Saturation 96% 12/26/2012 4:05 PM EDT Inhaled Oxygen Concentration - - Weight 100.2 kg (221 lb) 12/26/2012 4:05 PM EDT Height 200.7 cm (6' 7) 12/26/2012 4:05 PM EDT Body Mass Index 24.9 12/26/2012 4:05 PM EDT documented in this encounter Patient Instructions * Patient Instructions* Brady Ugarte MD - 12/26/2012 4:53 PM EDT Overall, you stated that you have been feeling much better over the past month. This may be your overall clinical improvement as sure markers for inflammation have now normalized and more importantly, your marker for heart failure has also improved significantly. This also seems to have correlated with your recent self discontinuation of the colchicine which was causing some post ingestion malaise. Blood pressure and heart rate are well controlled. Laboratory tests today demonstrates normal blood counts, electrolytes, kidney function, and liver function tests. Your marker for heart failure, and inflammatory markers are all significantly better than earlier this spring. I would recommend that you continue to remain off colchicine, but you may use this as needed if youhave recurrent chest pain similar to your previous episodes that were related to your pericarditis. I would recommend that you continue the Coumadin until it is discontinued for your pacemaker/generator upgrade per Electrophysiology. We discussed the logistics, advantages and disadvantages, and risk and benefits of the upgrade to the newer device and I think you are candidate for this. Medication changes: None documented in this encounter Progress Notes * Brady Ugarte MD - 12/26/2012 6:28 AM EDT Images from the original note were not included. [facility] [place] [address] CARDIOMYOPATHY/HEART FAILURE SERVICE OUTPATIENT CLINIC NOTE Jatinder Morrell 12/26/2012 Primary Care Provider: CHARLI JARAMILLO MD Referring Provider: Charli Jaramillo CHIEF COMPLAINT: Chief Complaint Patient presents with ??? Follow-up HISTORY OF PRESENT ILLNESS: Jatinder Mancilla Parisa is a 67 y.o. patient seen in routine follow up in the [facility] Heart Failure Clinic, and in the interim, he has felt significantly better this last month. Because of malaise and abdominaldiscomfort noted after taking his meds, he self discontinued the colchicine and since then, those symptoms have now resolved. He has improved exercise tolerance, no significant dyspnea or dyspnea on exertion, PND, orthopnea or LE edema. He has improved exercise tolerance, and only rare chest discomfort. He was evaluated by EP and has been scheduled for elective PROPERTY DAMAGE CLAIMS ADJUSTOR-D upgrade with EF ~ 35 % and now 100% Vpaced rhythm with CHB/pacer dependence. [...] reported to a local emergency room in [place]. He was told that he had a low heart rate in july need a pacemaker but he declined any further evaluation as he was asymptomatic. 2 weeks later, while [place], the patient felt weak, tired, with dizziness [...] available for my review. Since returning to [facility], thepatient actually feels well with [...] this. There were no new medications or [id number] therapy initiated during this timeframe. On discharge, [...] Trivial pleural effusion on chest x-ray Elevated DNN=469 a-->3.8 AN ESR=53 on index presentation --> [...] with left bundle branch block, PVCs, QRS jeqhbbxn=208 msec. Symptomatic CHB 06/13/12- s/p DDDR pacemaker [...] Carvedilol ROSY/ARB Yes Losartan Spironolactone no Previously [id number], d/c secondary to side effects (hives), no [...] use ??? LBBB (left bundle branch block) VPH=187 ms New Symptomatic CHB 05/30-->declined pacer at initial presentation while traveling -S/p temp pacer-->Permanent DDDR pacer -LVEF~ 50-55%, ICD not indicated, but at risk for V paced rhythm dyssynchrony ??? Complete heart block Symptomatic bradycardia with CHB and LBBB, HR in the 20-30s Initially seen at a local ER, pacemaker recommended, but declined While in [facility], [place], called [facility] in cath report, but likely symptomatic bradycardia and CHB CHB- s/p temporary pacer 06/13/2012 - cath: Angiogram, mild irregularities of LAD, LCXF dominant, 30-40% mid RCA - No LV gram done S/p DDD-R Pacemaker Medtronic Adapta Dual Chamber Model # ADDR01, Serial number [id number] -[place], [place] ??? Cardiac pacemaker Indications: Symptomatic CHB, with slow VR ~ 20-30 Current Platform: DDD-R Pacemaker Medtronic Adapta Dual Chamber Model # ADDR01, Serial number [id number] -[place], [place] ??? HX SUDDEN CARDIAC ARREST Probably [...] Outpatient Prescriptions Marked as Taking for the 12/26/12 encounter (Follow-Up) with Brady Ugarte MD Medication [...] chills, night sweats. Weight now down approximately 15-17 pounds now stable. Sleep habits usually good. Eyes No visual loss, double vision, drainage, eye pain, dry eyes, or other sxs reported. ENT No sore throat, dry mouth, eptistaxis or other sxs reported. Cardiac He continues significant and sustained improvement of [...] Signs: Wt Readings from Last 3 Encounters: 12/26/12 100.245 kg (221 lb) 11/20/12 108.41 kg (239 lb) 11/13/12 104.826 kg (231 lb 1.6 oz) Temp Readings from Last 3 Encounters: No data found for Temp BP Readings from Last 3 Encounters: 12/26/12 124/70 11/20/12 120/76 11/13/12 120/86 Pulse Readings from Last 3 Encounters: 12/26/12 68 11/20/12 68 11/13/12 63 SpO2: [96 %] General -Alert, oriented, NAD. [...] hour(s)) PROTHROMBIN TIME Component Value Range PT 19.2 (*) 12.0 - 15.0 sec INR 1.6 (*) 0.9 - 1.1 CBC (WITH DIFF) Component Value Range WBC 9.2 4.0 - 10.0 x10(3)/mcL RBC 5.66 4.63 - 6.08 x10(6)/mcL Hemoglobin 16.4 13.7 - 17.5 gm/dL Hematocrit 48.3 40.0 - 51.0 % MCV 85.3 79.0 - 92.0 fL MCH 29.0 25.6 - 32.2 pg MCHC 34.0 32.0 - 36.5 gm/dL Platelets 182 145 - 370 x10(3)/mcL RDWSD 40.8 35.0 - 46.0 fL RDWCV 13.4 10.9 - 14.4 % MPV 10.9 9.0 - 12.0 fL COMPREHENSIVE METABOLIC PANEL (NON-FASTING) Component Value Range Glucose Lvl 119 60 - 199 mg/dL BUN 16 10 - 20 mg/dL Creatinine 0.95 0.80 - 1.50 mg/dL Sodium 137 135 - 145 mmol/L Potassium 3.9 3.5 - 5.0 mmol/L Chloride 102 98 - 107 mmol/L CO2 24 22 - 31 mmol/L Anion Gap 11 5 - 15 mmol/L Calcium 9.1 8.5 - 10.5 mg/dL Total Protein 6.5 6.4 - 8.3 gm/dL Albumin 4.1 3.2 - 5.2 gm/dL AST 18 0 - 39 unit/L ALT 16 0 - 55 unit/L Alk Phos 50 40 - 120 unit/L Total Bilirubin 1.1 0.2 - 1.3 mg/dL Bili, Direct 0.2 0.0 - 0.3 mg/dL Estimated GFR >60 >=60 PRO-BRAIN NATRIURETIC PEPTIDE Component Value Range ProBNP 377 (*) <=125 pg/mL URIC ACID Component Value Range Uric Acid 7.5 3.5 - 8.5 mg/dL SEDIMENTATION RATE Component Value Range Sed Rate 3 0 - 15 mm/hr HIGH SENSITIVITY CRP Component Value Range CRP High Sens 2.5 DIFFERENTIAL, AUTOMATED Component Value Range Neutrophils % 55.5 34.0 - 71.0 % Neutr Abs (ANC) 5.09 1.50 - 6.30 x10(3)/mcL Lymphocytes % 36.4 19.0 - 53.0 % Lymphocytes Abs 3.3 1.0 - 3.6 x10(3)/mcL Monocytes % 5.4 4.0 - 13.0 % Monocyte Abs 0.5 0.2 - 1.0 x10(3)/mcL Eosinophils % 2.1 0.0 - 7.0 % Eosinophils Abs 0.2 0.0 - 0.5 x10(3)/mcL Basophils % 0.5 0.0 - 2.0 % Basophils Abs 0.0 [...] function. PROBLEMS: Non-ischemic cardiomyopathy Persistent LV dysfunction on medical therapy Heart failure chronic systolic dysfunction Well compensated and euvolemic on medical therapy Scheduled for generator upgrade to PROPERTY DAMAGE CLAIMS ADJUSTOR-D LBBB (left bundle branch block) Persistent LV dysfunction on medical therapy, now pacer dependent with intrinsic LBBB, candidate for PROPERTY DAMAGE CLAIMS ADJUSTOR-D Answered all questions the patient had regarding device indications, logistics and risk/benefits, advantages and disadvantages. 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 Improved clinically ASSESSMENT: Continues to do very well with clinical and laboratory improvement and resolution of his post pacerpericarditis. His INR is sub-therapeutic today, but he is planning on traveling prior to his deviceimplant and I would continue anticoagulation until his procedure. We will continue to monitor off colchicine for now, but he could use on a PRN basis. I reviewed the indications and potential complications and advantages/disadvantages of PROPERTY DAMAGE CLAIMS ADJUSTOR-D and expected outcomes. From his prior discussion: He continues to [...] possible upgrade of his pacemaker to a PROPERTY DAMAGE CLAIMS ADJUSTOR-D. This could be related to his ventricular [...] - discontinue colchicine one tablet daily - No Changes [...] or other testing advised: - EP cardiology scheduled PROPERTY DAMAGE CLAIMS ADJUSTOR-D with persistent LV systolic dysfunction, paced rhythm, intrinsic LBBB - Pacemaker reprogramming post-implant per EP cardiology 3. COUNSELING: Specific issues or questions addressed on this visit: - As above - I cautioned him to limit his alcohol use - Reviewed his laboratories, EKG, and recent clinical course and available discharge documents fromhis recent hospitalization in [place] - reviewed his short-term and long-term prognosis, PROPERTY DAMAGE CLAIMS ADJUSTOR -D - reviewed echocardiogram 4. Cardiology follow-up scheduled for: - 1-2 Months or earlier as clinically indicated - PCP and other subspecialists as previously arranged Brady Ugarte MD, [facility] Aircraft Assemblerfeed adviser Cardiology Director, Cardiovascular Critical Care Injection Machine Operator, Advanced Heart Failure and Cardiomyopathy Program [facility] documented in this encounter Miscellaneous Notes * Assessment & Plan Note - Brady Ugarte MD - 12/26/2012 4:49 PM EDTAssociated Problem(s): 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? Improved clinically * Assessment & Plan Note - Brady Ugarte MD - 12/26/2012 4:48 PM EDTAssociated Problem(s): Pulmonary embolism Will continue coumadin, and d/c prior to PROPERTY DAMAGE CLAIMS ADJUSTOR-D upgrade * Assessment & Plan Note - Brady Ugarte MD - 12/26/2012 4:47 PM EDTAssociated Problem(s): Pericarditis Stable, rare chest pain, self d/c'd colchicine approximately 3-4 weeks ago * Assessment & Plan Note - Brady Ugarte MD - 12/26/2012 4:47 PM EDTAssociated Problem(s): Complete heart block S/p pacer, will upgrade * Assessment & Plan Note - Brady Ugarte MD - 12/26/2012 4:44 PM EDTAssociated Problem(s): LBBB (left bundle branch block) Persistent LV dysfunction on medical therapy, now pacer dependent with intrinsic LBBB, candidate for PROPERTY DAMAGE CLAIMS ADJUSTOR-D Answered all questions the patient had regarding device indications, logistics and risk/benefits, advantages and disadvantages. * Assessment & Plan Note - Brady Ugarte MD - 12/26/2012 4:42 PM EDTAssociated Problem(s): Heart failure chronic systolic dysfunction Well compensated and euvolemic on medical therapy Scheduled for generator upgrade to PROPERTY DAMAGE CLAIMS ADJUSTOR-D * Assessment & Plan Note - Brady Ugarte MD - 12/26/2012 4:38 PM EDTAssociated Problem(s): Non-ischemic cardiomyopathy Persistent LV dysfunction on medical therapy documented in this encounter Plan of Treatment Upcoming Encounters Date Type Department Care Team (Late st Contact Info) Description 02/26/2024 10:00 AM EST Hospital Encounter Non-[place] [phone] Arrived Scheduled Orders Name Type Priority Associated Diagnoses Orde r Schedule Prothrombin Time Lab Routine LBBB (left bundle branch block) Chronic anticoagulation Expected: 12/26/2012 (Approximate), Expires: 12/17/2013 documented as of this encounter Procedures Procedure Name Priority Date/Time Associated Diagnosis Comments DIFFERENTIAL, AUTOMATED STAT 12/26/2012 3:41 PM EDT SEDIMENTATION RATE Routine 12/26/2012 3: 41 PM EDT LBBB (left bundle branch block) PROTHROMBIN TIME Routine 12/26/2012 3:41 PM EDT Chest pain Complete heart block Heart failure chronic systolic dysfunction Non-ischemic cardiomyopathy CBC (WITH DIFF) STAT 12/26/2012 3:41 PM EDT Heart failure, unspecified Other primary cardiomyopathies CRP, CARDIAC RISK (HS CRP) Routine 12/26/2012 3:41 PM EDT Other primary cardiomyopathies URIC ACID STAT 12/26/2012 3:41 PM EDT Heart failure, unspecified Other primary cardiomyopathies PRO-BRAIN NATRIURETIC PEPTIDE STAT 12/26/2012 3:41 PM EDT Heart failure, unspecified Other primary cardiomyopathies COMPREHENSIVE METABOLIC PANEL STAT 12/26/2012 3:41 PM EDT Heart failure, unspecified Other primary cardiomyopathies documented in this encounter Results * Differential, Automated (12/26/2012 3:41 PM EDT) Neutrophil % 55.5 34.0 - 71.0 % CERNER MILLENNIUM Neutrophil Absolute 5.09 1.50 - 6.30 x10(3)/mcL CERNER MILLENNIUM Lymph % 36.4 19.0 - 53.0 % CERNER MILLENNIUM Lymphocytes Abs 3.3 1.0 - 3.6 x10(3)/mcL CERNER MILLENNIUM Monocyte % 5.4 4.0 - 13.0 % CERNER MILLENNIUM Monocyte Abs 0.5 0.2 - 1.0 x10(3)/mcL CERNER MILLENNIUM Eos % 2.1 0.0 - 7.0 % CERNER MILLENNIUM Eosinophils [...] 0.05 x10(3)/mcL CERNER MILLENNIUM Blood specimen (specimen) 12/26/2012 3:41 PM EDT 12/26/2012 3:57 PM EDT Brady Ugarte MD HEMATOLOGY ORDERABLE S CERBAILEY ONEILL * (ABNORMAL) Prothrombin Time (12/26/2012 3:41 PM EDT) Prothrombin Time 19.2(H) 12.0 - 15.0 sec CERNER MILLENNIUM Comment: [facility] Transfusion Committee Guidelines: INR less than 2.0, PTT less than OR equal to 43.5 seconds, or Fibrinogen greater than or equal to 100 mg/dl indicate adequate procoagulant activity for hemostasis in patients without underlying bleeding disorders. International Normalization Ratio 1.6(H) 0.9 - 1.1 CERNER MILLENNIUM Blood specimen (specimen) 12/26/2012 3:41 PM EDT 12/26/2012 3:57 PM EDT Narrative Resulting Agency Comment Spec In Lab Brady Ugarte MD HEMATOLOGY ORDERABLE S Performing Organization Address [facility] de Phone Number Spark AuthorsBAILEY [employer] * High Sensitivity CRP (12/26/2012 3:41 PM EDT) [facility] Signature C-Reactive Protein High Sensitivity 2.5 mg/L CERNER [employer] Comment: Interpretations: 1) For accurate cardiac risk [...] prevention. ??Circulation 2003; [id number] Blood specimen (specimen) 12/26/2012 3:41 PM EDT 12/26/2012 3:57 PM EDT Narrative Resulting Agency Comment Spec In Lab Brady Ugarte MD CHEMISTRY ORDERABLES Performing Organization Address [facility] de Phone Number [facility] * Sedimentation rate (12/26/2012 3:41 PM EDT) Sedimentation Rate Automated 3 0 - 15 mm/hr [facility] Blood specimen (specimen) 12/26/2012 3:41 PM EDT 12/26/2012 3:57 PM EDT Narrative Resulting Agency Comment Spec In Lab Brady Ugarte MD HEMATOLOGY ORDERABLE S Performing Organization Address [facility] Co de Phone Number [facility] * Uric acid (12/26/2012 3:41 PM EDT) Uric Acid 7.5 3.5 - 8.5 mg/dL [facility] Blood specimen (specimen) 12/26/2012 3:41 PM EDT 12/26/2012 3:57 PM EDT Narrative Resulting Agency Comment Spec In Lab Brady Ugarte MD CHEMISTRY ORDERABLES Performing Organization Address [facility] Co de Phone Number [facility] * (ABNORMAL) pro-Brain Natriuretic Peptide (12/26/2012 3:41 PM EDT) NT-proBNP 377(H) <=125 pg/mL [facility] Blood specimen (specimen) 12/26/2012 3:41 PM EDT 12/26/2012 3:57 PM EDT Narrative Resulting Agency Comment Spec In Lab Brady Ugarte MD CHEMISTRY ORDERABLES Performing Organization Address [facility] Co de Phone Number [facility] * Comprehensive metabolic panel (non-fasting) (12/26/2012 3:41 PM EDT) Glucose 119 60 - 199 mg/dL [facility] Comment:Diabetes: >=200 mg/d L plus symptoms Blood Urea Nitrogen 16 10 - 20 mg/dL [facility] Creatinine 0.95 0.80 - 1.50 mg/dL [facility] Comment: Please note that the pediatric reference intervals supplied above were not validated at [facility]. Results from pediatric patients should be interpreted in conjunction to the patient's age, height and muscle mass. Sodium 137 135 - 145 mmol/L CERNER MILLENNIUM Potassium [...] 9.1 8.5 - 10.5 mg/dL CERNER MILLENNIUM Protein, Total 6.5 6.4 - 8.3 gm/dL CERNER MILLENNIUM Albumin 4.1 3.2 - 5.2 gm/dL CERNER MILLENNIUM Aspartate Aminotransferase 18 0 - 39 unit/L CERNER MILLENNIUM Alanine Aminotransferase 16 0 - 55 unit/L CERNER MILLENNIUM Alkaline Phosphatase 50 40 - 120 unit/L CERNER MILLENNIUM Bilirubin, [...] internet browser. http://www.nkdep.nih.gov/lab-evaluation.shtml http://www.kidney.org/professionals/ Blood specimen (specimen) 12/26/2012 3:41 PM EDT 12/26/2012 3:57 PM EDT Narrative Resulting Agency Comment Spec In Lab Brady Ugarte MD CHEMISTRY ORDERABLES NELSON ONEILL * CBC (with Diff) (12/26/2012 3:41 PM EDT) White Blood Cell 9.2 4.0 - 10.0 x10(3)/mcL CERNER MILLENNIUM Red Blood Cell 5.66 4.63 - 6.08 x10(6)/mcL CERNER MILLENNIUM Hemoglobin 16.4 13.7 - 17.5 gm/dL CERNER MILLENNIUM Hematocrit 48.3 40.0 - 51.0 % CERNER MILLENNIUM Mean Cell Volume 85.3 79.0 - 92.0 fL CERNER MILLENNIUM Mean Cell Hemoglobin 29.0 25.6 - 32.2 pg CERNER MILLENNIUM Mean Cell Hemoglobin Concentration 34.0 32.0 - 36.5 gm/dL CERNER MILLENNIUM Platelet 182 145 - 370 x10(3)/mcL CERNER MILLENNIUM RDW Standard Deviation 40.8 35.0 - 46.0 fL CERNER MILLENNIUM RDW coefficient of variation 13.4 10.9 - 14.4 % CERNER MILLENNIUM Mean Platelet Volume 10.9 9.0 - 12.0 fL CERNER MILLENNIUM Blood specimen (specimen) 12/26/2012 3:41 PM EDT 12/26/2012 3:57 PM EDT Narrative Resulting Agency Comment Spec In Lab Brady Ugarte MD HEMATOLOGY ORDERABLE S Performing Organization Address City/[facility] Co de Phone Number NELSON ONEILL documented in this encounter Visit Diagnoses Diagnosis Heart failure, unspecified Other primary cardiomyopathies LBBB (left bundle branch block) Other left bundle branch block Chronic anticoagulation Encounter for long-term (current) use of anticoagulants 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 Chest pain, unspecified Complete heart block Atrioventricular block, complete Heart failure chronic systolic dysfunction Heart failure, unspecified Non-ischemic cardiomyopathy Other primary cardiomyopathies Pericarditis Unspecified disease of pericardium Pulmonary embolism Other pulmonary embolism and infarction documented in this encounter Care Teams Cooker Soda Relationship Specialty Start Date End Date Charli Jaramillo MD [address] [facility] [address] [place] [address] PCP - General 03/25/11 08/07/22 documented as of this encounter
--- OUTSIDE RECORDS SUMMARY | 2023-12-11 18:48 | XMS_ITS | Encounter Summary ---
[place] [address] Care Team Providers Care Rn Medical Inpatient Services Name Role Phone Carlos Valdez MD Primary Care Provider [phone] Encounter Details Date Type Department Care Team (Latest Contact Info) Description 09/06/2012 Anti-Coag Telephone Visit Cardiology at [address] [phone] Charlotte Dasilva RN Pulmonary embolism (Primary Dx) [...] Progress Notes * Charlotte Dasilva RN - 09/06/2012 3:54 PM EDT Anticoagulation Therapy Note: Indication: pe Duration of Therapy: Ongoing Therapeutic Range:: 2.0-3.0 INR: 2.1 Drawn by: karla Monitored By: Cardio/ kono Next INR Due: 09/13/12 Warfarin dose : Increased Decreased x Maintained [...] AM EST Hospital Encounter Non[place] [address] Arrived documented as of this encounter Procedures Procedure Name Priority Date/Time Associated Diagnosis Comments EXTERNAL LAB RESULTS Routine 09/06/2012 documented in this encounter Results * (ABNORMAL) External Lab Results (09/06/2012) International Normalization Ratio 2.1(Exter nal Lab) 0.9 - 1.1 Comment:nevrh 09/06/2012 Historical Provider CHEMISTRY ORDERAB LES documented in this encounter Visit Diagnoses Diagnosis Pulmonary embolism- Primary Other pulmonary embolism and infarction documented in this encounter Care Teams Rn Medical Inpatient Services Relationship Specialty Start Date End Date Carlos Valdez MD [address] [address] PCP - General 03/25/11 08/07/22 documented as of this encounter
--- OUTSIDE RECORDS SUMMARY | 2023-12-11 18:48 | XMS_ITS | Encounter Summary ---
[place] [address] Care Team Providers Care Quality Auditor Name Role Phone Carlos Valdez MD Primary Care Provider [phone] Encounter Details Date Type Department Care Team (Latest Contact Info) Description 10/16/2012 Anti-Coag Telephone Visit Cardiology at [address] [phone] Clarice Hernandez RN Pulmonary embolism (Primary Dx) [...] Progress Notes * Clarice Fernando RN - 10/16/2012 11:35 AM EDT Anticoagulation Therapy Telephone Note: Indication: PE Anticipated End Date: Ongoing Therapeutic Range: 2.0-3.0 INR: 2.0 Drawn by: [facility] Monitored By:cardio/ Dr Ugarte Next INR Due: 2 weeks Warfarin dose : Increased Decreased x [...] st Contact Info) Description 02/26/2024 10:00 AM [facility] Hospital Encounter Non-[place] [address] Arrived documented as of this encounter Visit Diagnoses Diagnosis Pulmonary embolism- Primary Other pulmonary embolism and infarction documented in this encounter Care Teams Quality Auditor Relationship Specialty Start Date End Date Carlos Valdez MD [address] [place] [address] PCP - General 03/25/11 08/07/22 documented as of this encounter
--- OUTSIDE RECORDS SUMMARY | 2023-12-11 18:48 | XMS_ITS | Encounter Summary ---
Author Organization [facility] [place] [address] Care Team Providers Care Mini Shifter Name Role Phone Carlos Valdez MD Primary Care Provider [phone] Reason for Visit * Reason Comments Chest Pain cardiomyopathy Encounter Details Date Type Department Care Team (Latest Contact Info) Description 11/20/2012 9:40 AM EDT Office Visit Cardiology at [address] [address] Ozzie Fernando MD [facility] [address] Non-ischemic cardiomyopathy (Primary Dx); Complete heart block; Cardiac pacemaker Discharge Disposition: Home Social History Tobacco Use [...] Sign Reading Time Taken Comments Blood Pressure 120/76 11/20/2012 9:24 AM EDT Pulse 68 11/20/2012 9:24 AM EDT Temperature - - Respiratory Rate 16 11/20/2012 9:24 AM EDT Oxygen Saturation 97% 11/20/2012 9:24 AM EDT Inhaled Oxygen Concentration - - Weight 108.4 kg (239 lb) 11/20/2012 9:24 AM EDT Height 200.7 cm (6' 7) 11/20/2012 9:24 AM EDT Body Mass Index 26.92 11/20/2012 9:24 AM EDT documented in this encounter Progress Notes * Ozzie Fernando MD - 11/20/2012 10:47 AM EDT Patient is referred by Dr. Ugarte for consideration of biventricular defibrillator. Mr. Mccauley is a 67 year old male with nonischemic cardiomyopathy who developed complete heart blockwhile on vacation in [place] in May of this year. He reports having to be shocked and resuscitated twice while awaiting pacemaker implantation; he now has a dual chamber pacemaker. Patient has had annual echocardiograms performed for the last several years, showing ejection fractions in the 45-50% range until the pacemaker was placed; EFs have ranged from 34-36% since then, with the most recent echo revealing an EF 35%. Of note, his RV lead is in the right ventricular apex. Mr. Mccauley reports a subjective decrease in his exertional tolerance in the months since pacemaker implantation. He states that he gets easily winded, and still tries to walk every day but definitelycurtails his activities (for example, he will think twice before taking his dog for a walk in [facility] given the likelihood he will not be able to keep up). He denies PND or orthopnea. He has had episodes of chest discomfort, clamminess, and feeling crappy since about two weeks after pacemakerimplantation, and states he had every test in the book until he was finally diagnosed with pericarditis, and was treated with colchicine and ibuprofen which made a significant improvement. As part of this workup, he was apparently also diagnosed with a pulmonary embolism and will be on warfarin therapy for that until mid December. Patient Active Problem List Diagnosis ??? Chest [...] Trivial pleural effusion on chest x-ray Elevated GUP=009 a-->3.8 AN ESR=53 on index presentation --> [...] with left bundle branch block, PVCs, QRS pctnvzze=091 msec. Symptomatic CHB 06/13/12- s/p DDDR pacemaker [...] Carvedilol ROSY/ARB Yes Losartan Spironolactone no Previously [id number], d/c secondary to side effects (hives), no [...] use ??? LBBB (left bundle branch block) QAE=741 ms New Symptomatic CHB 05/30-->declined pacer at initial presentation while traveling -S/p temp pacer-->Permanent DDDR pacer -LVEF~ 50-55%, ICD not indicated, but at risk for V paced rhythm dyssynchrony ??? Complete heart block Symptomatic bradycardia with CHB and LBBB, HR in the 20-30s Initially seen at a local ER, pacemaker recommended, but declined While in [facility], [place], called [facility] in cath report, but likely symptomatic bradycardia and CHB CHB- s/p temporary pacer 06/13/2012 - cath: Angiogram, mild irregularities of LAD, LCXF dominant, 30-40% mid RCA - No LV gram done S/p DDD-R Pacemaker Medtronic Adapta Dual Chamber Model # ADDR01, Serial number [id number] -[place], [place] ??? Cardiac pacemaker Indications: Symptomatic CHB, with slow VR ~ 20-30 Current Platform: DDD-R Pacemaker Medtronic Adapta Dual Chamber Model # ADDR01, Serial number [id number] -[place], [place] ??? HX SUDDEN CARDIAC ARREST Probably bradycardic induced, presenting with symptomatic CHB, and requiring defibrillation 05/2012 reports that he quit smoking about 16 years ago. His smoking use included Cigarettes. He has never used smokeless tobacco. 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 [place] in [place]. Mother had heart problems. Current Outpatient Prescriptions on File Prior to Visit Medication Status Sig Dispense Refill ??? ibuprofen [...] tablet by mouth nightly. 30 tablet 0 Allergies Allergen Reactions ??? Lasix (Furosemide) Rash Review of Systems: no bleeding, diarrhea,constipation, urinary problems, history of stroke or seizure, cough, palpitations, recent syncope (one episode in remote past), orthopnea, vision or hearing changes, rashes, thyroid problems, depression. Filed Vitals: 11/20/12 0924 BP: 120/76 Pulse: 68 Resp: 16 Patient is alert and oriented in no apparent distress Neck veins are flat Heart is regular without rub noted despite listening in multiple positions Lungs clear No ankle edema 2+ radial pulses and 1+ DP pulses bilaterally Labs: last creatinine 0.98 EKG 10/2012: NSR, QRS 162ms (paced) Last EKG prior to pacemaker: LBBB, QRS 170ms Echocardiogram11/13/2012: Ejection fraction 35% by visual estimate, and 36% by Ramirez's biplane although tracing reported as probably inaccurate Last pacer interrogation: sinus rhythm, no mode switches, 100% V paced. Last CXR reveals RV lead in the RV apex; one loop of lead in the pocket and a reasonable amount of slack on the lead (note patient is tall at 6'6) A/P: Mr. Mccauley is a 67 year old male with nonischemic cardiomyopathy referred for consideration of MAINTENANCE REPAIRMAN-D. He has had a decline in exertional tolerance with NYHA II-III class CHF symptoms, recent echocardiography demonstrating LVEF of 35%, and a widened QRS (161ms paced, 170ms LBBB prior to developing CHB). Whether his decline in EF over the past six months is due to RV apical pacing (in the setting of dual chamber pacer for CHB) or progression of his cardiomyopathy is unclear, but either way he is interested in an aggressive treatment approach. I discussed with him that he does just meet the guidelines criteria for ICD implantation and cardiac resynchronization therapy (EF 35% is the upper cutoff). I discussed with him the rationale for treatment, the risks of the procedure including lack of benefit to MAINTENANCE REPAIRMAN; lead dislodgement, malfunction, or recall; infection; pneumothorax/cardiac perforation; inappropriate shocks; need for device replacements in the future; and he understands that the procedure is performed under general anesthesia. He remains interested and wishes to proceed with scheduling; he would ideally like to wait until after Thanksgi for personal reasons. At that time, he will be off his warfarin which may reduce the periprocedural risks for him somewhat. I discussed with him what should be done with his RV pacing lead, which will either have to be removed or capped/a bandoned. It has been long enough (six months) that removal may require more than just simple traction; he would rather leave it alone now and deal with it only when forced to (understanding that removal may become more problematic in time). - schedule for biventricular ICD implantation probably in February - would get a venogram about a week before to ensure venous system patency so contingency plans canbe made if there is an occluded left sided venous system documented in this encounter Plan of Treatment Upcoming Encounters Date Type Department Care Team (Late st Contact Info) Description 02/26/2024 10:00 AM EST Hospital Encounter [place] [address] Arrived documented as of this encounter Procedures Procedure Name Priority Date/Time Associated Diagnosis Comments ELECTROPHYSIOLOGY PROCEDURE Routine 02/18/2013 1:53 PM EST Non-ischemic cardiomyopathy Complete heart block Cardiac pacemaker documented in this encounter Results * Electrophysiology Procedure (02/18/2013 1:53 PM EST) Anatomical Region Laterality Modality Other Narrative 02/18/2013 2:23 PM EST Cardiac Resynchronization Therapy ICD Upgrade (explant of pacemaker pulse generator), peripheral Subclavian Venography, Cinefluoroscopy, pacemaker pocket revision and defibrillation safety margin testing, under General anesthesia Indication: Cardiomopathy with congestive heart failure and ventricular dyssynchrony, ventricular pacing Operators: Escobar LYNN, Oniel KITCHEN.[facility]. Procedure: The patient was brought to the Electrophysiology Lab in the fasting state and continuous electrocardiographic monitoring was instituted. General anesthesia was administered by the anesthesia team. Subclavian venography with 20 cc of Omnipaque (iohexol) contrast demonstrated a fully patent vein and the venography was used to guide vascular access (ultrasound views were compromised by the old atrial and ventricular leads in the pocket). ??30 cc was wasted. The left subclavicular fossa was prepped and [...] pulse generator was removed, and the electrodes disconnected (at the end of the case, during access and lead positioning, the old pacemaker was left connected for pacing). ??The previously implanted electrodes were physically intact (where visible). The ??axillary vein was entered with an 18 gauge thin walled needle without difficulty, guided by venography and guide wires were advanced into the central venous circulation. ?? Using the retained guide wires and an introducer sheath, a new electrode was advanced to the right ventricle under fluoroscopic guidance. The electrodes were anchored to the underlying fascia with a single stitch of 0 silk over the collar. A 10 Bangladeshi peel away CPS Select II sheath was placed in the central venous circulation utilizing the retained guide wire in the ??axillary vein. The coronary sinus was cannulated with a 7 Bangladeshi Daig lumen CS catheter passing through the CPS Select coronary sinus guide. A Terumo 'Run-through' angioplasty guide-wire was placed through the sheath, into a posterolateral side branch CS vessel. After confirming adequate pacing parameters, the angioplasty guidewire was replaced with a stylette and the CS lead was 'wedged' into the distal branch vessel. The CPS select sheath was now slit and removed under fluoroscopic guidance; the 10 bulgarian outer sheath was removed. The coronary sinus electrode was now anchored to the underlying pectoralis major fascia with a single stitch of 0 silk over the collar. The leads were attached to a DDDR biventricular ICD pulse generator, which was placed in the previously formed pocket with electrodes situated beneath it after it had been flushed with jalhwzvhl-ookzbv-hbwyifjveo solution. The old ventricular lead was capped with a lead insulator cap, and placed deep into the pocket. The pulse generator was sutured to the underlying pectoralis major fascia with a stitch of O silk after the pocket was enlarged inferiorly and medially to accommodate the larger device. ? Final Parameters: New Ventricular electrode: ?? [employer] Model# 7122Q-58 cm Serial #[id number] Implanted 02/18/2013 ??Bipolar, steroid-tipped, active-fixation DF-4 lead ??Access: ?Axillary ??vein ??Location: ?? Right ventricular apical septum ??R wave, PSA: ?7.8 (paced) mV ??Pacing threshold, PSA: 0.7 V at 0.5 ms ??Pacing threshold, ICD: 0.75 V at 0.4 ms ??Impedance, PSA: ??925 ohms ??Impedance, ICD: ??940 ohms ??RV coil Impedance ??68 ohms ??Pace the diaphragm at 10 V: No (old) Atrial electrode: ?? [employer], Model # 5568-52 cm Serial # [id number] Implanted 06/14/2012 ??Bipolar, steroid-tipped, active-fixation IS-1 lead ??Access: ?Not known ??Location ?Right atrium anterolateral ??P wave, PSA: ?1.4 mV ??P wave, ICD: ?? 1.2 mV ??Pacing threshold, PSA: 1.25 V at 1.0 ms ??Pacing threshold, ICD: 1.25 V at 1.0 ms ??Impedance, PSA: ??306 ohms at 5 V Coronary sinus electrode: [employer] 1458Q/86 Serial number [id number] Implanted 02/18/2013 ??Quadripolar passive active fixation lead ??Access: ?Subclavian vein ??Location: ?? Coronary sinus, posterolateral vein ??R wave, PSA: ?8.3 (paced) mV ??Pacing threshold, PSA: 0.8 V at 0.5 ms ??Pacing threshold, ICD: 0.75 V at 0.4 ms ??Impedance,PSA: ?? 641 ohms ??Impedance, device: ??760 ohms ??Pace the diaphragm/chest wall at 10 V: No Pulse generator: ?? [employer] [id number] Serial number [id number] Implanted 02/18/2013 ??MAINTENANCE REPAIRMAN ICD ??Location: ?? Subcutaneous Old ventricular lead : Medtronic 5075 Serial number [id number] (capped 02/18/2013) Old pulse generator: Medtronic ADDR01 Serial number [id number] (removed 02/18/2013) Detection and termination of ventricular tachyarrhythmias was performed with the ICD set to minimal sensitivity ??A T-Wave shock (4 S1 at 400 ms with a 310 ms delay and 1.2 Joule biphasic waveform) induced ventricular fibrillation that was successfully terminated with a 20 Joule shock (impedance 68 ohms). The wound was closed with interrupted stitches of 2-O Monocryl and the skin was closed with a subcuticular stitch of 4-0 Monocryl Plus. Cinefluoroscopy documented the final implant positions. Medical adhesive ( Dermaflex ) was applied to the ??A Mepilex was placed over the incision. The patient tolerated the procedure well. Antibiotic: 2gm cefazolin at 1045 Incision: 1142 Total fluoroscopy time: 20.4 minutes, DAP 9984 cGy/cm-2 EBL: 30cc No drains in situ Dr. Mcarthur was present and participated in all leal portions of the procedure. Procedure Note Oniel Mcarthur MD - 02/18/2013 Cardiac Resynchronization Therapy ICD Upgrade (explant of pacemaker pulsegenerator), peripheral Subclavian Venography, Cinefluoroscopy, pacemakerpocket revision and defibrillation safety margin testing, under Generalanesthesia Indication: Cardiomopathy with congestive heart failure and ventriculardyssynchrony, ventricular pacing Operators: Escobar LYNN, Oniel KITCHEN.[facility]. Procedure: The patient was brought to the Electrophysiology Lab in thefasting state and continuous electrocardiographic monitoring wasinstituted. General anesthesia was administered by the anesthesia team. Subclavian venography with 20 cc of Omnipaque (iohexol) contrastdemonstrated a fully patent vein and the venography was used to guidevascular access (ultrasound views were compromised by the old atrial andventricular leads in the pocket). 30 cc was wasted. The left subclavicular fossa was prepped and draped in the usual sterilefashion and 2% lidocaine with 0.5% bupivicaine in a 2:3 mixture wasinstilled for local anesthesia and post operative analgesia. An incisionwas made over the old scar, and the dissection was carried down to thelevel of the old pocket using sharp and blunt dissection carefullyavoiding the old leads that were identified fluoroscopically. The oldpulse generator was removed, and the electrodes disconnected (at the endof the case, during access and lead positioning, the old pacemaker wasleft connected for pacing). The previously implanted electrodes werephysically intact (where visible). The axillary vein was entered with an 18 gauge thin walled needle withoutdifficulty, guided by venography and guide wires were advanced into thecentral venous circulation. Using the retained guide wires and an introducer sheath, a new electrodewas advanced to the right ventricle under fluoroscopic guidance. Theelectrodes were anchored to the underlying fascia with a single stitch of0 silk over the collar. A 10 Bangladeshi peel away CPS Select II sheath was placed in the centralvenous circulation utilizing the retained guide wire in the axillaryvein. The coronary sinus was cannulated with a 7 Bangladeshi Daig lumen CScatheter passing through the CPS Select coronary sinus guide. A Terumo'Run-through' angioplasty guide-wire was placed through the sheath, into aposterolateral side branch CS vessel. After confirming adequate pacingparameters, the angioplasty guidewire was replaced with a stylette and theCS lead was 'wedged' into the distal branch vessel. The CPS select sheath was now slit and removed under fluoroscopicguidance; the 10 bulgarian outer sheath was removed. The coronary sinus electrode was now anchored to the underlying pectoralismajor fascia with a single stitch of 0 silk over the collar. The leadswere attached to a DDDR biventricular ICD pulse generator, which wasplaced in the previously formed pocket with electrodes situated beneath itafter it had been flushed with utfvbnnyk-qdshvl-nyhhysickw solution. Theold ventricular lead was capped with a lead insulator cap, and placed deepinto the pocket. The pulse generator was sutured to the underlyingpectoralis major fascia with a stitch of O silk after the pocket wasenlarged inferiorly and medially to accommodate the larger device. Final Parameters: New Ventricular electrode: [employer] Model# 7122Q-58 cm Serial #[id number] Implanted 02/18/2013 Bipolar, steroid-tipped, active-fixation DF-4 lead Access: Axillary vein Location: Right ventricular apical septum R wave, PSA: 7.8 (paced) mV Pacing threshold, PSA: 0.7 V at 0.5 ms Pacing threshold, ICD: 0.75 V at 0.4 ms Impedance, PSA: 925 ohms Impedance, ICD: 940 ohms RV coil Impedance 68 ohms Pace the diaphragm at 10 V: No (old) Atrial electrode: [employer], Model # 5568-52 cm Serial # [id number] Implanted 06/14/2012 Bipolar, steroid-tipped, active-fixation IS-1 lead Access: Not known Location Right atrium anterolateral P wave, PSA: 1.4 mV P wave, ICD: 1.2 mV Pacing threshold, PSA: 1.25 V at 1.0 ms Pacing threshold, ICD: 1.25 V at 1.0 ms Impedance, PSA: 306 ohms at 5 V Coronary sinus electrode: [employer] 1458Q/86 Serial number [id number] Implanted 02/18/2013 Quadripolar passive active fixation lead Access: Subclavian vein Location: Coronary sinus, posterolateral vein R wave, PSA: 8.3 (paced) mV Pacing threshold, PSA: 0.8 V at 0.5 ms Pacing threshold, ICD: 0.75 V at 0.4 ms Impedance,PSA: 641 ohms Impedance, device: 760 ohms Pace the diaphragm/chest wall at 10 V: No Pulse generator: [employer] [id number] Serial number [id number] Implanted 02/18/2013 MAINTENANCE REPAIRMAN ICD Location: Subcutaneous Old ventricular lead : Medtronic 5075 Serial number [id number] (bnmqyd5502/18/2013) Old pulse generator: Medtronic ADDR01 Serial number [id number] (cwfbhcu27/2/2013) Detection and termination of ventricular tachyarrhythmias was performedwith the ICD set to minimal sensitivity A T-Wave shock (4 S1 at 400 ms with a 310 ms delay and 1.2 Joulebiphasic waveform) induced ventricular fibrillation that was successfullyterminated with a 20 Joule shock (impedance 68 ohms). The wound was closed with interrupted stitches of 2-O Monocryl and theskin was closed with a subcuticular stitch of 4-0 Monocryl Plus.Cinefluoroscopy documented the final implant positions. Medical adhesive (Dermaflex ) was applied to the A Mepilex was placed over the incision.The patient tolerated the procedure well. Antibiotic: 2gm cefazolin at 1045 Incision: 1142 Total fluoroscopy time: 20.4 minutes, DAP 9984 cGy/cm-2 EBL: 30cc No drains in situ Dr. Mcarthur was present and participated in all leal portions of theprocedure. Ozzie Fernando MD EP PROCEDURE ORDERAB LES documented in this encounter Visit Diagnoses Diagnosis Non-ischemic cardiomyopathy- Primary Other primary cardiomyopathies Complete heart block Atrioventricular block, complete Cardiac pacemaker Cardiac pacemaker in situ Complete heart block Atrioventricular block, complete Cardiac pacemaker Cardiac pacemaker in situ Non-ischemic cardiomyopathy Other primary cardiomyopathies documented in this encounter Care Teams Mini Shifter Relationship Specialty Start Date End Date Carlos Valdez MD [address] [place] [address] [address] PCP - General 03/25/11 08/07/22 documented as of this encounter
--- OUTSIDE RECORDS SUMMARY | 2023-12-11 18:48 | XMS_ITS | Encounter Summary ---
[place] [address] Care Team Providers Care Batt Packer Name Role Phone Carlos Valdez MD Primary Care Provider [phone] Encounter Details Date Type Department Care Team (Latest Contact Info) Description 09/28/2012 Anti-Coag Telephone Visit Cardiology at [address] [address] Kavya Song, RN Pulmonary embolism (Primary Dx) Social History Tobacco Use Types Packs/Day Years Used Date Smoking Tobacco: Former Cigarettes Q uit: 01/12/1996 Smokeless Tobacco: Never Comments:stopped 15 years Sex and Gender Information Value Date Recorded Sex Assigned at Not on file Gender Identity Not on file Sexual Orientation Not on file documented as of this encounter Progress Notes * Kavya Song, RN - 09/28/2012 2:52 PM EDT Anticoagulation Therapy Telephone Note: Indication: PE Anticipated End Date: on going Therapeutic Range:: 2.0-3.0 INR:2.4 Drawn by: [facility] Monitored By:cardio/Kono Next INR Due: 2 weeks Warfarin dose [...] [facility] Hospital Encounter Non[place] [address] Arrived documented as of this encounter Procedures Procedure Name Priority Date/Time Associated Diagnosis Comments EXTERNAL LAB RESULTS Routine 09/28/2012 documented in this encounter Results * (ABNORMAL) External Lab Results (09/28/2012) International Normalization Ratio 2.4(Exter nal Lab) 0.9 - 1.1 Comment:[facility] 09/28/2012 Historical Provider CHEMISTRY ORDERAB LES documented in this encounter Visit Diagnoses Diagnosis Pulmonary embolism- Primary Other pulmonary embolism and infarction documented in this encounter Care Teams Batt Packer Relationship Specialty Start Date End Date Carlos Valdez MD [address] [place] [address] PCP - General 03/25/11 08/07/22 documented as of this encounter
--- OUTSIDE RECORDS SUMMARY | 2023-12-11 18:48 | XMS_ITS | Encounter Summary ---
Author Organization [facility] Address [facility] [place] [address] Care Team Providers Care Capital Project Engineer Name Role Phone Carlos Valdez MD Primary Care Provider [phone] Encounter Details Date Type Department Care Team (Latest Contact Info) Description 02/12/2013 4:45 PM EST - 02/12/2013 11:59 PM EST Hospital Encounter [place] [address] Destin He MD [facility] [place] [address] Discharge Disposition: Home Social History Tobacco Use [...] Sig Dispensed Refills Start Date End Date cxuhzog-jafldiwrqalqi-nsmf eine (EXCEDRIN MIGRAINE) 250-250-65 mg per tablet [...] tablet 0 01/11/2011 COREG CR 40 mg BO94Ikgopsvofhw:Heart failure,Non-ischemic cardiomyopathy TAKE 1 CAPSULE (40MG) BY MOUTH DAILY 90 capsule 3 02/01/2013 01/30/2014 losartan (COZAAR) 50 mg tabletIndications:Other primary cardiomyopathies Take 1 tablet by mouth daily. 30 tablet 3 08/17/2012 08/19/2013 warfarin (COUMADIN) 5 mg tabletIndications:Pulmonar y embolism Take 1-2 tablets by mouth daily. 60 tablet 5 08/01/2012 02/19/2013 documented as of this encounter Plan of Treatment Upcoming Encounters Date Type Department Care Team (Late st Contact Info) Description 02/26/2024 10:00 AM [facility] Hospital Encounter Non[place] [address] Arrived documented as of this encounter Visit Diagnoses Not on filedocumented in this encounter Care Teams Capital Project Engineer Relationship Specialty Start Date End Date Carlos Valdez MD [address] [place] [address] PCP - General 03/25/11 08/07/22 documented as of this encounter
--- OUTSIDE RECORDS SUMMARY | 2023-12-11 18:48 | XMS_ITS | Encounter Summary ---
[place] [address] Care Team Providers Care Half Sole Fitter Name Role Phone Charli Jaramillo MD Primary Care Provider [phone] Reason for Visit * Reason Comments Bradycardia pacemaker interrogat ion Encounter Details Date Type Department Care Team (Late st Contact Info) Description 09/13/2012 9:45 AM EDT Follow-Up Cardiology at [address] [address] Ciaran Medel RN Non-ischemic cardiomyopathy (Primary Dx); Complete heart block Social History Tobacco Use [...] Time Taken Comments Blood Pressure 118/74 09/13/2012 9:23 AM EDT Pulse 78 09/13/2012 9:23 AM EDT Temperature - - Respiratory Rate - - Oxygen Saturation 96% 09/13/2012 9:23 AM EDT Inhaled Oxygen Concentration - - Weight 101.6 kg (224 lb) 09/13/2012 9:23 AM EDT Height 200.7 cm (6' 7) 09/13/2012 9:23 AM EDT Body Mass Index 25.23 09/13/2012 9:23 AM EDT documented in this encounter Progress Notes * Ciaran Medel RN - 09/13/2012 9:27 AM EDT Pacemaker Clinic Follow-Up Jimmie Mccauley is a 67 y.o. male who presents today in the device clinic for pacemaker interrogation. He is also being seen by the Heart Failure Service today. The device was implanted 06/14/2012 for CHB. This was done at [facility] in [place], [place]. Stacker Driver: Brady Ugarte MD PCP: CHARLI JARAMILLO MD Device: Medtronic Adapta ADDR01, Serial # [id number] Implant date: 06/14/2012 Atrial lead: Medtronic 5568-53, Serial # [id number] Ventricular lead: Medtronic 5076-58, Serial # [id number] Settings: DDD 60/130, PAV 150 ms, ROSAURA 120 ms, mode switch 175 bpm Underlying rhythm: SR 78 bpm with CHB Heart rate histograms: Good distribution Atrial lead impedance: 623 ohms Ventricular lead impedance: 666 ohms Lead impedance trends stable P wave: 1.4 to 2.8 mV R wave: None Atrial capture threshold: 1.75 V @ 0.4 ms by ACM. Manual testing yielded the same Ventricular capture threshold: 0.375 V at 0.4 ms by VCM. Manual was 0.5 V at 0.4 ms Pacing percentages: AP 11%; COMMUNITY NURSE 100% Mode switch episodes: None (last checked briefly by LUDY Elizondo on 08/17/2012) Battery voltage: 2.79 V. Est 10 years remaining Chest x-ray: NA Incision assessment: No issues L chest Electrophysiology Attending Note I have personally reviewed and analyzed the device evaluation. Impression/Plan: ?? Normal device function, except slightly elevated but stable atrial capture thresholds ?? A pacing 10% V pacing 99+% Good HR distribution despite rate response inactive. ?? No atrial or ventricular arrhythmias since shortly after implant. ?? Atrial output adjusted to prolong battery longevity.. ?? Follow up: 3 months [facility], 6 months office. Alison Marlow MD documented in this encounter Plan of Treatment Upcoming Encounters Date Type Department Care Team (Late st Contact Info) Description 02/26/2024 10:00 AM EST Hospital Encounter Non-[place] [address] Arrived documented as of this encounter Visit Diagnoses Diagnosis Non-ischemic cardiomyopathy- Primary Other primary cardiomyopathies Complete heart block Atrioventricular block, complete documented in this encounter Care Teams Half Sole Fitter Relationship Specialty Start Date End Date Charli Jaramillo MD [address] [facility] 1 [place] [address] PCP - General 03/25/11 08/07/22 documented as of this encounter
--- OUTSIDE RECORDS SUMMARY | 2023-12-11 18:48 | XMS_ITS | Encounter Summary ---
[place] [address] Care Team Providers Care Data Report Analyst Name Role Phone Carlos Valdez MD Primary Care Provider [phone] Encounter Details Date Type Department Care Team (Late st Contact Info) Description 12/25/2012 Orders Only Cardiology at [address] [phone] Ozzie Fernando MD [facility] [place] [address] Ischemic cardiomyopathy (Primary Dx) Social History Tobacco Use Types [...] AM EST Hospital Encounter Non-[place] [phone] Arrived documented as of this encounter Results * IR venogram (02/11/2013 9:59 AM EST) Anatomical Region Laterality Modality Vascular X-Ray Angiograph y 02/11/2013 9:59 AM EST Narrative 02/12/2013 9:11 AM EST IR Procedure Note ?? [id number] ?? Procedure: US guided left basilic vein [...] Attending: Anita Lawrence MD ?? Procedure Note Jimmie Lawrence MD - 02/12/2013 IR Procedure Note [id number] Procedure: US guided left basilic vein access Left axillo-subclavian venogram History/indication: 67 yr old M patient with NICM (EF 35%), NYHA II-IIICHF symptoms, with left chest wall dual chamber pacemaker with RV lead in [employer]. Plan per cardiology is to undergo a biventricular ICD implantation inDecemb. Request has been placed for a venogram [...] Attending: Anita Lawrence MD Ozzie Fernando MD IMG IR ORDERABLES documented in this encounter Visit Diagnoses Diagnosis Ischemic cardiomyopathy- Primary Other specified forms of chronic ischemic heart disease Non-ischemic cardiomyopathy Other primary cardiomyopathies Heart failure [...] ischemic heart disease documented in this encounter Care Teams Data Report Analyst Relationship Specialty Start Date End Date Carlos Valdez MD [address] [facility] 1 [place] [address] PCP - General 03/25/11 08/07/22 documented as of this encounter
--- OUTSIDE RECORDS SUMMARY | 2023-12-11 18:48 | XMS_ITS | Encounter Summary ---
[place] [address] Care Team Providers Care New Media Strategist Name Role Phone Carlos Valdez MD Primary Care Provider [phone] Encounter Details Date Type Department Care Team (Latest Contact Info) Description 08/24/2012 Anti-Coag Telephone Visit Cardiology at [address] [phone] Suzanne Clark LPN Pulmonary embolism (Primary Dx) Social History Tobacco Use Types Packs/Day Years Used Date Smoking Tobacco: Former Cigarettes Q uit: 01/12/1996 Smokeless Tobacco: Never Comments:stopped 15 years Sex and Gender Information Value Date Recorded Sex Assigned at Not on file Gender Identity Not on file Sexual Orientation Not on file documented as of this encounter Progress Notes * Marlen Clark LPN - 08/24/2012 2:02 PM EDT Anticoagulation Therapy Telephone Note: [id number] Indication:PE Anticipated End Date: on going Therapeutic Range:: 2.0-3.0 INR:3.5 Drawn by: [facility] Monitored By:Cardio and DR Ugarte Next INR Due: 1 week Patient started on colchicine and ibuprofen on 08/17/12,warfarin dose to be decreased Warfarin dose : Increased x Decreased Maintained Comment: 2.5mg for 2 days and 5mg for 5 days Falls Risk Assessment: Have you had any falls in the last month?no How many times have you fallen? Conditions [...] medication changes: Include Prescription/OTC/Herbal x Yes No Comment Have you misssed any dose [...] [facility] Hospital Encounter [place] [address] Arrived documented as of this encounter Visit Diagnoses Diagnosis Pulmonary embolism- Primary Other pulmonary embolism and infarction documented in this encounter Care Teams New Media Strategist Relationship Specialty Start Date End Date Carlos Valdez MD [address] [place] [address] PCP - General 03/25/11 08/07/22 documented as of this encounter
--- OUTSIDE RECORDS SUMMARY | 2023-12-11 18:48 | XMS_ITS | Encounter Summary ---
[place] [address] Care Team Providers Care Roll Capper Name Role Phone Carlos Valdez MD Primary Care Provider [phone] Encounter Details Date Type Department Care Team (Latest Contact Info) Description 10/31/2012 Anti-Coag Telephone Visit Cardiology at [address] [phone] Kendy Wilkes LPN Pulmonary embolism [...] Progress Notes * Kendy Wilkes LPN - 10/31/2012 3:40 PM EDT Anticoagulation Therapy Telephone Note: Indication: PE Anticipated End Date: ongoing Therapeutic Range:: 2-3 INR: 2.5 Drawn by: YARI Monitored By: Leb cards Next INR Due: 11/13/12 Warfarin dose : Increased Decreased X Maintained Comment: 5mgx5/days 2.5mgx2/days Falls Risk Assessment How many [...] st Contact Info) Description 02/26/2024 10:00 AM [facility] Hospital Encounter Non-[place] [address] Arrived documented as of this encounter Procedures Procedure Name Priority Date/Time Associated Diagnosis Comments EXTERNAL LAB RESULTS Routine 10/31/2012 documented in this encounter Results * (ABNORMAL) External Lab Results (10/31/2012) International Normalization Ratio 2.5(Exter nal Lab) 0.9 - 1.1 Comment:[facility] Historical Provider CHEMISTRY ORDERAB LES documented in this encounter Visit Diagnoses Diagnosis Pulmonary embolism- Primary Other pulmonary embolism and infarction documented in this encounter Care Teams Roll Capper Relationship Specialty Start Date End Date Carlos Valdez MD [address] [facility] 1 [place] [address] PCP - General 03/25/11 08/07/22 documented as of this encounter
--- OUTSIDE RECORDS SUMMARY | 2023-12-11 18:48 | XMS_ITS | Encounter Summary ---
[place] [address] Care Team Providers Care Orchid Hand Name Role Phone Charli Jaramillo MD Primary Care Provider [phone] Reason for Visit * Reason Comments Bradycardia pacemaker interrogat ion Encounter Details Date Type Department Care Team (Late st Contact Info) Description 11/13/2012 8:15 AM EDT Follow-Up Cardiology at [address] [address] Ciaran Medel RN Complete heart block (Primary Dx) Social History Tobacco Use Types [...] Time Taken Comments Blood Pressure 120/86 11/13/2012 8:09 AM EDT Pulse 63 11/13/2012 8:09 AM EDT Temperature - - Respiratory Rate - - Oxygen Saturation 98% 11/13/2012 8:09 AM EDT Inhaled Oxygen Concentration - - Weight 104.8 kg (231 lb 1.6 oz) 11/13/2012 8:09 AM EDT Height 200.7 cm (6' 7) 11/13/2012 8:09 AM EDT Body Mass Index 26.03 11/13/2012 8:09 AM EDT documented in this encounter Progress Notes * Ciaran Medel RN - 11/13/2012 8:41 AM EDT Pacemaker Clinic Follow-Up Jimmie Mccauley is a 67 y.o. male who presents today in the device clinic for pacemaker interrogation. He is also being seen by the Heart Failure Service today and having an echo. The device was implanted 06/14/2012 for CHB. This was done at [facility] in [place], [place]. Patient last had pacemaker interrogated in clinic 09/13/2012. Boilermaker Mechanic: Brady Ugarte MD PCP: CHARLI JARAMILLO MD Device: Medtronic Adapta ADDR01, Serial # [id number] Implant date: 06/14/2012 Atrial lead: Medtronic 5568-53, Serial # [id number] Ventricular lead: Medtronic 5076-58, Serial # [id number] Settings: DDD 60/130, PAV 150 ms, ROSAURA 120 ms, mode switch 175 bpm Underlying rhythm: SR 75 bpm with CHB Heart rate histograms: Good distribution Atrial lead impedance: 733 ohms Ventricular lead impedance: 668 ohms Lead impedance trends stable P wave: 1.4 to 2.8 mV R wave: None Atrial capture threshold: 1.625 V @ 0.4 ms by ACM (stable) Ventricular capture threshold: 0.5 V at 0.4 ms by VCM (stable) Pacing percentages: AP 9%; CORN SHUCKER 100% Mode switch episodes: None VHR: 11/02/2012 with EGM suggesting 6-7 beat run NSVT ~280 ms Battery voltage: 2.79 V. Est 10.5 years remaining Chest x-ray: NA Incision assessment: No issues L chest Assessment/plan: Normal device function. RTC 6 mos. [facility] 3 mos. Addendum I have personally reviewed the device interrogation as performed by Ciaran Medel RN Dual chamber PPM Reasonable rate histograms 1 mode switch One likely non sustained [place] episode Normal device function Summary 1) Normal device function 2) Routine follow up as planned ONIEL MCARTHUR MD documented in this encounter Plan of Treatment Upcoming Encounters Date Type Department Care Team (Late st Contact Info) Description 02/26/2024 10:00 AM EST Hospital Encounter Non-[place] [address] Arrived documented as of this encounter Visit Diagnoses Diagnosis Complete heart block- Primary Atrioventricular block, complete documented in this encounter Care Teams Orchid Hand Relationship Specialty Start Date End Date Charli Jaramillo MD [address] [place] [address] PCP - General 03/25/11 08/07/22 documented as of this encounter
--- OUTSIDE RECORDS SUMMARY | 2023-12-11 18:49 | XMS_ITS | Encounter Summary ---
[place] [address] Care Team Providers Care Program Management Analyst Name Role Phone Carlos Valdez MD Primary Care Provider [phone] Reason for Visit * Reason Onset Date Comments Follow-up 08/08/2012 shoulder & chest discomfort Encounter Details Date Type Department Care Team (Late st Contact Info) Description 08/08/2012 Telephone [place] [phone] Oriana Rush, RN Follow-up (shoulder & chest discomfort) Social History Tobacco Use Types Packs/Day Years Used Date Smoking Tobacco: Former Cigarettes Q uit: 01/12/1996 Smokeless Tobacco: Never Comments:stopped 15 years Sex and Gender Information Value Date Recorded Sex Assigned at Not on file Gender Identity Not on file Sexual Orientation Not on file documented as of this encounter Miscellaneous Notes * Telephone Encounter - Oriana Rush RN - 08/08/2012 4:19 PM EDT O:Patient remained on Lovenox & Coumadin through the w/e and reports blood in stool and pink urine have resolved. His shoulder & chest discomfort remain at a varying degree of intensity. Patient symptoms were reviewed at team meeting with Dr. Ugarte, see plan below. A: Ongoing shoulder & chest discomfort, potential for post implant inflammation? P:Per Dr. Ugarte, patient instructed to take Motrin 400 mg twice daily x 2 days and contact cliniic with response on 08/10/12. Cardiology anticoagulation nurses made aware of Motrin. documented in this encounter Plan of Treatment Upcoming Encounters Date Type Department Care Team (Late st Contact Info) Description 02/26/2024 10:00 AM [facility] Hospital Encounter Non-[place] [address] Arrived documented as of this encounter Visit Diagnoses Not on filedocumented in this encounter Care Teams Program Management Analyst Relationship Specialty Start Date End Date Carlos Valdez MD [address] [place] [address] PCP - General 03/25/11 08/07/22 documented as of this encounter
--- OUTSIDE RECORDS SUMMARY | 2023-12-11 18:49 | XMS_ITS | Encounter Summary ---
[place] [address] Care Team Providers Care Ironworker Helper Shop Name Role Phone Carlos Valdez MD Primary Care Provider [phone] Encounter Details Date Type Department Care Team (Latest Contact Info) Description 08/14/2012 Anti-Coag Telephone Visit Cardiology at [address] [phone] Clarice Hernandez RN Pulmonary embolism (Primary Dx) [...] Progress Notes * Clarice Fernando RN - 08/14/2012 3:30 PM EDT Anticoagulation Therapy Telephone Note: Indication: PE Anticipated End Date: Ongoing Therapeutic Range: 2.0-3.0 INR: 2.4 Drawn by: YARI Monitored By:cardio/ Dr Ugarte Next INR Due: 1 week Warfarin dose : Increased Decreased x Maintained [...] AM EST Hospital Encounter Non-[place] [address] Arrived documented as of this encounter Procedures Procedure Name Priority Date/Time Associated Diagnosis Comments EXTERNAL LAB RESULTS Routine 08/14/2012 documented in this encounter Results * (ABNORMAL) External Lab Results (08/14/2012) International Normalization Ratio 2.4(Exter nal Lab) 0.9 - 1.1 Comment:[facility] 08/14/2012 Historical Provider CHEMISTRY ORDERAB LES documented in this encounter Visit Diagnoses Diagnosis Pulmonary embolism- Primary Other pulmonary embolism and infarction documented in this encounter Care Teams Ironworker Helper Shop Relationship Specialty Start Date End Date Carlos Valdez MD [address] [address] PCP - General 03/25/11 08/07/22 documented as of this encounter
--- OUTSIDE RECORDS SUMMARY | 2023-12-11 18:49 | XMS_ITS | Encounter Summary ---
[place] [address] Care Team Providers Care Skiver Counter Name Role Phone Carlos Valdez MD Primary Care Provider Reason for Visit * Reason Onset Date Comments Follow-up 07/13/2012 symptoms Encounter Details Date Type Department Care Team (Late st Contact Info) Description 07/13/2012 Telephone Cardiology at [address] [phone] Oriana Rush, RN Follow-up (symptoms) Social History Tobacco Use Types Packs/Day Years Used Date Smoking Tobacco: Former Cigarettes Q uit: 01/12/1996 Smokeless Tobacco: Never Comments:stopped 15 years Sex and Gender Information Value Date Recorded Sex Assigned at Not on file Gender Identity Not on file Sexual Orientation Not on file documented as of this encounter Miscellaneous Notes * Telephone Encounter - Oriana Rush, RN - 07/13/2012 11:29 AM EDT S: I had 2 good days but today I feel crappy. Especially across my shoulders and the center of my chest, achiness it comes and goes. O: Patient reports he had 2 good days and this am since he awoke he has not been feeling well due to generalized aches & pains. These aches are primarily located across the front of his shoulderswith some pain in central chest area, no radiation to arms, neck, jaw. Denies fever,chills, dizziness or diaphoresis today. Awaits a call back from his PCP office as his MD is off and he wishes to schedule a time for Lyme titer to be drawn. He took the Bumex yesterday and had noted no increase in his urine output, ahis weight is unchanged. Reviewed with Sidney CAON, patient informed of negative blood culture results per INTERNATIONAL ACCOUNT MANAGER. A: Unclear etiology of intermittent aches & pains. P: Patient will have Lyme titer drawn locally. documented in this encounter Plan of Treatment Upcoming Encounters Date Type Department Care Team (Late st Contact Info) Description 02/26/2024 10:00 AM [facility] Hospital Encounter Non-[place] [phone] Arrived documented as of this encounter Visit Diagnoses Not on filedocumented in this encounter Care Teams Skiver Counter Relationship Specialty Start Date End Date Carlos Valdez MD [address] [place] [address] PCP - General 03/25/11 08/07/22 documented as of this encounter
--- OUTSIDE RECORDS SUMMARY | 2023-12-11 18:49 | XMS_ITS | Encounter Summary ---
Author Organization [facility] Address [facility] [place] [address] Care Team Providers Care Sailing Officer Name Role Phone Carlos Valdez MD Primary Care Provider [phone] Encounter Details Date Type Department Care Team (Latest Contact Info) Description 07/10/2012 10:59 AM EDT - 07/10/2012 1:02 PM EDT Hospital Encounter XRay at [address] [place] [address] Tightness in chest Social History Tobacco Use Types Packs/Day Years [...] by mouth nightly. 30 tablet 0 01/11/2011 Carvedilol Phosphate (COREG CR) 40 mg [id number]:Chronic systolic heart failure Take 40 mg by mouth daily. 30 capsule 5 06/26/2012 02/01/2013 losartan (COZAAR) 100 mg tabletIndications:Other primary cardiomyopathies Take 1 tablet by mouth daily. 90 tablet 3 06/26/2012 08/17/2012 aspirin 325 mg EC tablet Take 325 mg by mouth daily. 08/17/2012 documented as of this encounter Plan of Treatment Upcoming Encounters Date Type Department Care Team (Late st Contact Info) Description 02/26/2024 10:00 AM EST Hospital Encounter Non-[place] [address] Arrived documented as of this encounter Procedures Procedure Name Priority Date/Time Associated Diagnosis Comments XR CHEST PA AND LATERAL Routine 07/10/2012 11:05 AM EDT Tightness in chest documented in this encounter Results * XR chest routine PA & lateral (07/10/2012 11:05 AM EDT) Anatomical Region Laterality Modality Chest N/A Radiographic Vida ging 07/10/2012 11:0 5 AM EDT Narrative 07/10/2012 1:17 PM EDT Examination CHEST ROUTINE 2 VIEWS Clinical History dizzyness- new pacemaker Comparison 06/14/2012. Technique PA and lateral views of the chest. Findings Left anterior chest wall pulse generator and 2 pacemaker leads, in unchanged position. ??The lungs appear clear and symmetrically expanded. Trace bilateral pleural Effusion is present. No change in top normal cardiac silhouette. Pulmonary vascular markings appear within normal limits. As before, left-sided rib deformities consistent with old healed fractures and mild to moderate degenerative change of the lower thoracic spine noted. Impression Trace bilateral pleural effusion. ??No other cardiopulmonary findings. Procedure Note Tanna Myers MD - 07/10/2012 Examination CHEST ROUTINE 2 VIEWS Clinical History dizzyness- new pacemaker Comparison 06/14/2012. Technique PA and lateral views of the chest. Findings Left anterior chest wall pulse generator and 2 pacemaker leads, inunchanged position. The lungs appear clear and symmetrically expanded. Tracebilateral pleural Effusion is present. No change in top normal cardiac silhouette. Pulmonary vascular markings appear within normal limits. As before,left-sided rib deformities consistent with old healed fractures and mild to moderate degenerative change of the lower thoracic spine noted. Impression Trace bilateral pleural effusion. No other cardiopulmonary findings. Brady Ugarte MD IMG DX ORDERABLES documented in this encounter Visit Diagnoses Diagnosis Tightness in chest Other chest pain documented in this encounter Care Teams Sailing Officer Relationship Specialty Start Date End Date Carlos Valdez MD [address] [place] [address] PCP - General 03/25/11 08/07/22 documented as of this encounter
--- OUTSIDE RECORDS SUMMARY | 2023-12-11 18:49 | XMS_ITS | Encounter Summary ---
Author [place] [address] Care Team Providers Care Estimating Manager Name Role Phone Carlos Valdez MD Primary Care Provider Reason for Visit * Reason Onset Date Comments Follow-up 07/06/2012 symptoms Encounter Details Date Type Department Care Team (Late st Contact Info) Description 07/06/2012 Telephone Cardiology at [address] [phone] Oriana Rush, RN Follow-up (symptoms) Social History [...] Telephone Encounter - Oriana Rush, RN - 07/06/2012 10:26 AM EDT O:Patient reports had a great day yesterday, walked 2 miles,uphill was difficult but ok on level ground. Moving bowels without difficulty. This am awakened and has been experiencing intermittent lightheadedness and clamminess, denies nausea, shortness of breath or chest pain/discomfort. Temp thisam 96 F which is subnormal for him, 147/80's and HR 70. Patient has DDD-R. Reportedly he has non obstructive coronary artery disease by recent cath, EF of 55% at OSH. His land line is down today due to high winds so unable to download to [facility]. He reports he feel well at time of this call but likens these symptoms to prior issues when he had to be hospitalized, so is understandably anxious. Discussed with Jose Perez APRN, see plan below. A: Unclear etiology of symptoms. Question potential for brewing viral or infectious process, cardiaissue. P: Patient to call PCP for appt. today, if symptoms worsening call 911, he is in agreement with this plan. He will update us with plan of care. Patient had appt. With PCP @ 2 pm today,he reports EKG negative, he found a land line and reports he downloaded to [employer]. documented in this encounter Plan of Treatment Upcoming Encounters Date Type Department Care Team (Late st Contact Info) Description 02/26/2024 10:[address] [facility] Hospital Encounter Non[place] [address] Arrived documented as of this encounter Visit Diagnoses Not on filedocumented in this encounter Care Teams Estimating Manager Relationship Specialty Start Date End Date Carlos Valdez MD [address] [place] [address] PCP - General 03/25/11 08/07/22 documented as of this encounter
--- OUTSIDE RECORDS SUMMARY | 2023-12-11 18:49 | XMS_ITS | Encounter Summary ---
Author Organization Formerly [facility] Address [facility] [place] [address] Care Team Providers Care Api Developer Name Role Phone Carlos Valdez MD Primary Care Provider Encounter Details Date Type Department Care Team (Latest Contact Info) Description 08/17/2012 8:38 AM EDT - 08/17/2012 11:59 PM EDT [place] [address] Brady Ugarte MD [facility] [address] Chest pain; Complete heart block; Heart failure chronic systolic dysfunction; Non-ischemic cardiomyopathy Discharge Disposition: Home Social History [...] 02/19/2013 Carvedilol Phosphate (COREG CR) 40 mg [id number]:Chronic systolic heart failure Take 40 mg by mouth daily. 30 capsule 5 06/26/2012 02/01/2013 documented as of this encounter Plan of Treatment Upcoming Encounters Date Type Department Care Team (Late st Contact Info) Description 02/26/2024 10:00 AM EST Hospital Encounter Non[place] [phone] Arrived documented as of this encounter Procedures Procedure Name Priority Date/Time Associated Diagnosis Comments PROTHROMBIN TIME Routine 08/17/2012 8:44 AM EDT Chest pain Complete heart block Heart failure chronic systolic dysfunction Non-ischemic cardiomyopathy documented in this encounter Results * (ABNORMAL) Prothrombin Time (08/17/2012 8:44 AM EDT) Prothrombin Time 29.1(H) 12.0 - 15.0 sec [facility] Comment: [facility] Transfusion Committee Guidelines: INR less than 2.0, PTT less than OR equal to 43.5 seconds, or Fibrinogen greater than or equal to 100 mg/dl indicate adequate procoagulant activity for hemostasis in patients without underlying bleeding disorders. International Normalization Ratio 2.6(H) 0.9 - 1.1 [facility] Blood specimen (specimen) 08/17/2012 8:44 AM EDT 08/17/2012 8:48 AM EDT Narrative Resulting Agency Comment Spec In Lab Brady Ugarte MD HEMATOLOGY ORDERABLE S [facility] documented in this encounter Visit Diagnoses Diagnosis Chest pain Chest pain, unspecified Complete heart block Atrioventricular block, complete Heart failure chronic systolic dysfunction Heart failure, unspecified Non-ischemic cardiomyopathy Other primary cardiomyopathies documented in this encounter Care Teams Api Developer Relationship Specialty Start Date End Date Carlos Valdez MD [address] [place] [address] PCP - General 03/25/11 08/07/22 documented as of this encounter
--- OUTSIDE RECORDS SUMMARY | 2023-12-11 18:49 | XMS_ITS | Encounter Summary ---
[place] [address] Care Team Providers Care Lawn Mower Name Role Phone Carlos Valdez MD Primary Care Provider [phone] Reason for Visit * Reason Onset Date Comments Other 10/11/2011 Encounter Details Date Type Department Care Team (Late st Contact Info) Description 10/11/2011 Telephone Cardiology at [address] [address] Mary Perez, SONIA [address] [place] [address] Other Social History Tobacco Use Types Packs/Day Years Used Date Smoking Tobacco: Never Cigarettes Qu it: 01/12/1996 Smokeless Tobacco: Never Sex and Gender Information Value Date Recorded Sex Assigned at Not on file Gender Identity Not on file Sexual Orientation Not on file documented as of this encounter Miscellaneous Notes * Telephone Encounter - Karishma Car - 10/11/2011 11:16 AM EDT Please sign attached for upcoming appointment. Thanks documented in this encounter Plan of Treatment Upcoming Encounters Date Type Department Care Team (Late st Contact Info) Description 02/26/2024 10:00 AM EST Hospital Encounter Non-Invasive [place] [phone] Arrived documented as of this encounter Results * Echo Transthoracic (Complete) (01/11/2012 1:03 PM EDT) EF 52 HEARTLAB SYSTEM Anatomical Region Laterality Modality Other 01/11/2012 Narrative 01/11/2012 1:59 PM EDT Procedure: ? Transthoracic Echocardiogram Patient: ? PORSCHE Mancilla ?(Age): 1945(66) Med Rec#: ?[id number] ? Sex: ?M ? [place] [place] Ht / Wt: ??198(cm)/103(kg) Pt. Loc: ? Echo Lab ? BSA: ?2.38 Study Date: ?01/11/2012 ? Pt. Type: Outpatient Tape: ? Referring: Brady Ugarte ([id number]) Parking Inspector: Charlotte Kan Diagnosis: ??Congestive heart failure (428.0) ??Cardiomyopathy (425.4) CPT Code(s): ??Color Doppler (92184), ??Echo Full (27677), ??Spectral Doppler (69781), Indication(s): ??Congestive heart failure Rhythm: Sinus HR ?BP ?122/71 ?? SUMMARY: 1. The left ventricular chamber size is normal with mild concentric hypertrophy. ??Global left ventricular systolic function is mildly reduced. ??The quantitative left ventricular ejection fraction is 52% (biplane). ??There is diffuse hypokinesis along with a septal wall motion abnormality likely due to the presence of a left bundle branch block. Doppler assessment is consistent with normal left sided filling pressure. 2. Right ventricular chamber size, wall thickness, and systolic function are within normal limits. ??Pulmonary artery hypertension could not be assessed due to inadequate tricuspid regurgitation jet. 3. There is no hemodynamically significant valve disease. 4. The inferior vena cava appears normal in size. ??The estimated right atrial pressure is 3 mmHg. 5. There is mild dilatation of the ascending aorta. 6. There has been no significant change compared to the 01/11/2011 TTE. FINDINGS: Left Ventricle ?The left ventricular chamber size is normal. ?Mild concentric left ventricular hypertrophy is observed. ?Global left ventricular systolic function is mildly reduced. ?The quantitative left ventricular ejection fraction is 52% by Ramirez's Biplane. ?There is a left ventricular septal wall motion abnormality observed, possibly due to the presence of a left bundle branch block. ?The left ventricular diastolic filling pattern is consistent with impaired LV relaxation. ?Doppler assessment is consistent with normal left sided filling pressure. ?The ??basal anteroseptal, basal anterior, basal anterolateral, basal inferolateral, basal inferior, basal inferoseptal, mid anterior, mid anterolateral, mid inferolateral, mid inferior, apical septal, apical anterior, apical lateral and apical inferior wall segments are hypokinetic. ?The ??mid anteroseptal and mid inferoseptal wall segments are akinetic. Left Atrium ?The left atrium is mildly dilated. Right Ventricle ?Right ventricular chamber size, wall thickness, and systolic function are within normal limits. ?Pulmonary artery hypertension could not be assessed due to inadequate tricuspid regurgitation jet. ?The estimated right atrial pressure is 3 mmHg. Right Atrium ?The right atrium is mildly dilated. Aortic Valve ?The aortic valve is trileaflet. The leaflets are thin with normal excursion. There is no aortic stenosis or regurgitation present. Mitral Valve ?The mitral valve appears normal in structure and function. ?There is trace mitral regurgitation present. Tricuspid Valve ?The tricuspid valve appears normal in structure and function. ?There is no evidence of tricuspid valve regurgitation present. Pulmonic Valve ?The pulmonic valve appears normal in structure and function. Pericardium ?The pericardium appears normal and there is no evidence of a pericardial effusion. Aorta ?There is mild dilatation of the aortic root. ?There is mild dilatation of the ascending aorta. ?The aortic arch is normal in size. Venous ?The inferior vena cava appears normal [...] Hypokinetic ? Base-Inferoseptal ?? Hypokinetic ? Mid-Anteroseptal ?Akinetic ? Mid-Anterior ?Hypokinetic ? Mid-Anterolateral ?? Hypokinetic ? Mid-Posterolateral ??Hypokinetic ? Mid-Inferior ?Hypokinetic ? Mid-Inferoseptal ?Akinetic ? Quincy-Septal ? Hypokinetic ? Quincy-Anterior ? Hypokinetic ? Quincy-Lateral ?Hypokinetic ? Quincy-Inferior ? Hypokinetic ? Quincy-Tip ?Hypokinetic ? Chambers ?Value ?Units (Range) ? IVSd 2D ? 1.4 ?cm ? LVIDd 2D ?5.2 ?cm ? PWd 2D ?1.3 ?cm ? LVIDs 2D ?3.6 ?cm ? LVFS 2D ? 31 ? % ? LA area ? 27 ? cm2 (<21) ? RA area ? 21 ? cm2 (<18) ? Ao root ? 3.9 ?cm (2.1 to 3.6) ? Asc Ao ?3.6 ?cm (2 to 3.5) ? Mitral Valve ?Value ?Units (Range) ? E peak ?0.52 ? m/sec ? E/A ratio ? 0.7 ?ratio ? MVDT ?373 ?msec ? E1 ?0.07 ? m/sec ? E/E1 ?7 ?ratio ? Tricuspid/Pulmonic Valves ?Value ?Units (Range) ? RAP ? 3 ?mmHg ? This report has been electronically signed by: Charbel Naqvi ? 01/11/2012 13:49:07 Images reviewed and interpretation verified [facility] Procedure Note Charbel Naqvi MD - 01/11/2012 Procedure: Transthoracic Echocardiogram Patient: PORSCHE ROBERTS(Age): 1945(66) Med Rec#: [id number] Sex: M [place] [facility] [place]t / Wt: 198(cm)/103(kg) Pt. Loc: Echo Lab BSA: 2.38 Study Date: 01/11/2012 Pt. Type: Outpatient Tape: Referring: Brady Ugarte ([id number]) Parking Inspector: Charlotte Kan Diagnosis: Congestive heart failure (428.0) Cardiomyopathy (425.4) CPT Code(s): Color Doppler (17936), Echo Full (25407), Spectral Doppler (79056), Indication(s): Congestive heart failure Rhythm: Sinus HR BP 122/71 SUMMARY: 1. The left ventricular chamber size is normal with mild concentric hypertrophy. Global left ventricular systolic function is mildly reduced. The quantitative left ventricular ejection fraction is 52% (biplane). There is diffuse hypokinesis along with a septal wall motion abnormality likely due to the presence of a left bundle branch block. Doppler assessment is consistent with normal left sided filling pressure. 2. Right ventricular chamber size, wall thickness, and systolic function are within normal limits. Pulmonary artery hypertension could not be assessed due to inadequate tricuspid regurgitation jet. 3. There is no hemodynamically significant valve disease. 4. The inferior vena cava appears normal in size. The estimated right atrial pressure is 3 mmHg. 5. There is mild dilatation of the ascending aorta. 6. There has been no significant change compared to the 01/11/2011 TTE. FINDINGS: Left Ventricle The left ventricular chamber size is normal. Mild concentric left ventricular hypertrophy is observed. Global left ventricular systolic function is mildly reduced. The quantitative left ventricular ejection fraction is 52% by Ramirez's Biplane. There is a left ventricular septal wall motion abnormality observed, possibly due to the presence of a left bundle branch block. The left ventricular diastolic filling pattern is consistent with impaired LV relaxation. Doppler assessment is consistent with normal left sided filling pressure. The basal anteroseptal, basal anterior, basal anterolateral, basal inferolateral, basal inferior, basal inferoseptal, mid anterior, mid anterolateral, mid inferolateral, mid inferior, apical septal, apical anterior, apical lateral and apical inferior wall segments are hypokinetic. The mid anteroseptal and mid inferoseptal wall segments are akinetic. Left Atrium The left atrium is mildly dilated. Right Ventricle Right ventricular chamber size, wall thickness, and systolic function are within normal limits. Pulmonary artery hypertension could not be assessed due to inadequate tricuspid regurgitation jet. The estimated right atrial pressure is 3 mmHg. Right Atrium The right atrium is mildly dilated. Aortic Valve The aortic valve is trileaflet. The leaflets are thin with normal excursion. There is no aortic stenosis or regurgitation present. Mitral Valve The mitral valve appears normal in structure and function. There is trace mitral regurgitation present. Tricuspid Valve The tricuspid valve appears normal in structure and function. There is no evidence of tricuspid valve regurgitation present. Pulmonic Valve The pulmonic valve appears normal in structure and function. Pericardium The pericardium appears normal and there is no evidence of a pericardial effusion. Aorta There is mild dilatation of the aortic root. There is mild dilatation of the ascending aorta. The aortic arch is normal in size. Venous The inferior vena cava appears normal [...] Base-Posterolateral Hypokinetic Base-Inferior Hypokinetic Base-Inferoseptal Hypokinetic Mid-Anteroseptal Akinetic Mid-Anterior Hypokinetic Mid-Anterolateral Hypokinetic Mid-Posterolateral Hypokinetic Mid-Inferior Hypokinetic Mid-Inferoseptal Akinetic Quincy-Septal Hypokinetic Quincy-Anterior Hypokinetic Quincy-Lateral Hypokinetic Quincy-Inferior Hypokinetic Quincy-Tip Hypokinetic Chambers Value Units (Range) IVSd 2D 1.4 cm LVIDd 2D 5.2 cm PWd 2D 1.3 cm LVIDs 2D 3.6 cm LVFS 2D 31 % LA area 27 cm2 (<21) RA area 21 cm2 (<18) Ao root 3.9 cm (2.1 to 3.6) Asc Ao 3.6 cm (2 to 3.5) Mitral Valve Value Units (Range) E peak 0.52 m/sec E/A ratio 0.7 ratio MVDT 373 msec E1 0.07 m/sec E/E1 7 ratio Tricuspid/Pulmonic Valves Value Units (Range) RAP 3 mmHg This report has been electronically signed by: Charbel Naqvi 01/11/2012 13:49:07 Images reviewed and interpretation verified [facility] Brady Ugarte MD ECHO ORDERABLES documented in this encounter Visit Diagnoses Diagnosis Other primary cardiomyopathies Chronic systolic heart failure Other primary cardiomyopathies Chronic systolic heart failure documented in this encounter Care Teams Lawn Mower Relationship Specialty Start Date End Date Carlos Valdez MD [address] [place] [address] PCP - General 03/25/11 08/07/22 documented as of this encounter
--- OUTSIDE RECORDS SUMMARY | 2023-12-11 18:49 | XMS_ITS | Encounter Summary ---
[place] [address] Care Team Providers Care Director Medical Writing Name Role Phone Carlos Valdez MD Primary Care Provider [phone] Encounter Details Date Type Department Care Team (Latest Contact Info) Description 07/10/2012 2:19 PM EDT - 07/10/2012 11:59 PM EDT Hospital Encounter [place] [id number] Tightness in chest Social History Tobacco Use [...] 01/11/2011 Carvedilol Phosphate (COREG CR) 40 mg [id number]:Chronic systolic heart failure Take 40 mg by [...] AM EST Hospital Encounter [place] [address] Arrived documented as of this encounter Procedures Procedure Name Priority Date/Time Associated Diagnosis Comments ECHOCARDIOGRAM STRESS TEST (TREADMILL) Routine 07/10/2012 2:48 PM EDT Tightness in chest documented in this encounter Results * Echocardiogram Stress (Treadmill) (07/10/2012 2:48 PM EDT) EF 44 [email or web address] SYSTEM Anatomical Region Laterality Modality Other 07/10/2012 Narrative 07/10/2012 3:23 PM EDT Procedure: ? Stress Echocardiogram Patient: ? PORSCHE TOBIAS J ?(Age): 1945(67) Med Rec#: ?[id number] ? Sex: ?M ? Site Loc: ?[facility] ? Ht / Wt: ??198(cm)/105(kg) Pt. Loc: ? Echo Lab ? BSA: ?2.4 Study Date: ?07/10/2012 ? Pt. Type: Outpatient Tape: ? Referring: Brady Ugarte ([id number]) Bad Cloth Checker: Be Te[place]ada All Source Analyst: Rosario Jasso RDCS Diagnosis: ??Chest pain (786.50) CPT Code(s): ??Doppler LTD (43541), ??Stress Echo (44229), ??Color Doppler (12884), ??ECG Interpretation (80998), Indication(s):Medication(s): ?? Rhythm: Stage ?HR ?BP Rest ? 73 ?150/80 ?? Peak ? 125 ? 160/80 ?? Recovery ? 73 ?120/70 ?? SUMMARY: 1. REST: The left ventricular chamber size is normal. Left ventricular wall thickness is normal. There are left ventricular segmental wall motion abnormalities present, as shown in the diagram below. ??Global left ventricular systolic function is moderately reduced. ??Ejection fraction is estimated to be 44% and appears minimally changed by direct comparison to the prior study of 01/11/12. (Visually, there is not obvious dysnchrony.) Right ventricular chamber size, wall thickness, and systolic function are within normal limits. Other echo and stress findings as noted in report. 2. STRESS: ??On a Timmy protocol the patient exercised for 2 minutes 19 seconds, achieving 5 METS of exertion, a peak heart rate of 125 bpm (82% maximum predicted), and peak blood pressure of 160/80 mmHg, stopping secondary to fatigue. With stress he reported 4/10 chest discomfort, was hemodynamically stable, had occasional PACs and PVCs. The paced rhythm precluded interpretation for ST-TW changes. With stress there was improved systolic function of the inferolateral base, anterolateral wall, and anterior wall (mont[place] that were normal at rest). All other segments remained hypokinetic. 3. IMPRESSION: No evidence of ischemia based on the failure of segmental function to deteriorate. (NOTE: Some literature suggests that the failure to augment systolic function is a sign of ischemia.) FINDINGS: Rest Left Ventricle ?The left ventricular chamber size is normal. ?Left ventricular wall thickness is normal. ?Global left ventricular systolic function is moderately reduced. Ejection fraction is estimated to be 44%. ?There are left ventricular segmental wall motion abnormalities present, as shown in the diagram below. ?There is a left ventricular septal wall motion abnormality observed, possibly due to the presence of a left bundle branch block. ?The ??basal anteroseptal, basal inferior, basal inferoseptal, mid anteroseptal, mid inferior, mid inferoseptal, apical septal, apical anterior, apical lateral and apical inferior wall segments are hypokinetic. Left Atrium ?The left atrium is probably normal in size. Right Ventricle ?Right ventricular chamber size, wall thickness, and systolic function are within normal limits. ?A pacemaker wire is visualized in the right ventricle. ?The ventricular septum has abnormal motion consistent with RV pacemaker. Right Atrium ?The right atrium is probably normal in size. ?A pacemaker [...] no evidence of tricuspid valve regurgitation present. Pericardium ?The pericardium appears normal and there is no evidence of a pericardial effusion. Stress ?EKG: paced rhythm. ?EKG: right bundle branch block. ?The patient is taking a beta makeda. no hold. took at 11am ?The patient is taking a lipid lowering agent. ?The patient is taking a calcium channel makeda. ?The patient is taking aspirin. Misc ?Other echo and stress findings as noted in report. ?Stress echo, limited spectral Doppler, color Doppler and ECG interpretation performed. FINDINGS: Peak Left Ventricle ?The mid inferolateral wall segment deteriorated. ?The basal anteroseptal, basal inferior, basal inferoseptal, mid anteroseptal, mid inferior, mid inferoseptal, apical septal, apical anterior, apical lateral and apical inferior wall segments are unchanged. Stress ?Patient followed a Timmy protocol. ?The patient exercised into stage 1. ?The total exercise duration was:2:19 minutes ?The study was terminated because of fatigue.felt dizzy as well ?Maximum heart rate achieved was 125, which is 82% of the maximum(153 beats/min). ?The target heart rate was not achieved. ?The patient expressed feelings of chest discomfort. ?The blood pressure response was normal. ?Exercise capacity was poor. ?The patient achieved a level of 5 METS. ?There were occasional atrial premature contractions. ?There were occasional ventricular premature beats. ?This was an equivocal echocardiographic stress test. ?EKG: Premature ventricular contractions noted. ?EKG: right bundle branch block. ?The patient is taking a beta makeda. ?The patient is taking a lipid lowering agent. ?The patient is taking a calcium channel makeda. ?The patient is taking aspirin. FINDINGS: Recovery Stress ?EKG: Premature ventricular contractions noted. ?EKG: right bundle branch block. ?The patient is taking a beta makeda. ?The patient is taking a lipid lowering agent. ?The patient is taking a calcium channel makeda. ?The patient is taking aspirin. Wall Motion: Segment Name ?Rest ?Peak ? Base-Anteroseptal ?? Hypokinetic ? Hypokinetic ? Base-Anterior ? Normal ?Normal ? Base-Anterolateral ??Normal ?Normal ? Base-Posterolateral Normal ?Normal ? Base-Inferior ? Hypokinetic ? Hypokinetic ? Base-Inferoseptal ?? Hypokinetic ? Hypokinetic ? Mid-Anteroseptal ?Hypokinetic ? Hypokinetic ? Mid-Anterior ?Normal ?Normal ? Mid-Anterolateral ?? Normal ?Normal ? Mid-Posterolateral ??Normal ?Hypokinetic ? Mid-Inferior ?Hypokinetic ? Hypokinetic ? Mid-Inferoseptal ?Hypokinetic ? Hypokinetic ? [place]-Septal ? Hypokinetic ? Hypokinetic ? [place]-Anterior ? Hypokinetic ? Hypokinetic ? [place]-Lateral ?Hypokinetic ? Hypokinetic ? [place]-Inferior ? Hypokinetic ? Hypokinetic ? [place]-Tip ?Hypokinetic ? Hypokinetic ? Chambers ?Value ?Units (Range) ? EF ??Bi-p Simp ? 44 ? % (55 to 80) ? LVIDd 2D ?5.9 ?cm ? This report has been electronically signed by: Rodney Artis MD ? 07/10/2012 15:23:06 Images reviewed and interpretation verified [facility] Procedure Note Rodney Artis MD - 07/10/2012 Procedure: Stress Echocardiogram Patient: PORSCHE ROBERTS(Age): 1945(67) Med Rec#: [id number] Sex: M Site Loc: [facility] Ht / Wt: 198(cm)/105(kg) Pt. Loc: Echo Lab BSA: 2.4 Study Date: 07/10/2012 Pt. Type: Outpatient Tape: Referring: Brady Ugarte ([id number]) Bad Cloth Checker: Be Tejada All Source Analyst: Rosario Jasso [facility] Diagnosis: Chest pain (786.50) CPT Code(s): Doppler LTD (17792), Stress Echo (24234), Color Doppler (11933), ECG Interpretation (38082), Indication(s):Medication(s): Rhythm: Stage HR BP Rest 73 150/80 Peak 125 160/80 Recovery 73 120/70 SUMMARY: 1. REST: The left ventricular chamber size is normal. Left ventricular wall thickness is normal. There are left ventricular segmental wall motion abnormalities present, as shown in the diagram below. Global left ventricular systolic function is moderately reduced. Ejection fraction is estimated to be 44% and appears minimally changed by direct comparison to the prior study of 01/11/12. (Visually, there is not obvious dysnchrony.) Right ventricular chamber size, wall thickness, and systolic function are within normal limits. Other echo and stress findings as noted in report. 2. STRESS: On a Timmy protocol the patient exercised for 2 minutes 19 seconds, achieving 5 METS of exertion, a peak heart rate of 125 bpm (82% maximum predicted), and peak blood pressure of 160/80 mmHg, stopping secondary to fatigue. With stress he reported 4/10 chest discomfort, was hemodynamically stable, had occasional PACs and PVCs. The paced rhythm precluded interpretation for ST-TW changes. With stress there was improved systolic function of the inferolateral base, anterolateral wall, and anterior wall ([place] that were normal at rest). All other segments remained hypokinetic. 3. IMPRESSION: No evidence of ischemia based on the failure of segmental function to deteriorate. (NOTE: Some literature suggests that the failure to augment systolic function is a sign of ischemia.) FINDINGS: Rest Left Ventricle The left ventricular chamber size is normal. Left ventricular wall thickness is normal. Global left ventricular systolic function is moderately reduced. Ejection fraction is estimated to be 44%. There are left ventricular segmental wall motion abnormalities present, as shown in the diagram below. There is a left ventricular septal wall motion abnormality observed, possibly due to the presence of a left bundle branch block. The basal anteroseptal, basal inferior, basal inferoseptal, mid anteroseptal, mid inferior, mid inferoseptal, apical septal, apical anterior, apical lateral and apical inferior wall segments are hypokinetic. Left Atrium The left atrium is probably normal in size. Right Ventricle Right ventricular chamber size, wall thickness, and systolic function are within normal limits. A pacemaker wire is visualized in the right ventricle. The ventricular septum has abnormal motion consistent with RV pacemaker. Right Atrium The right atrium is probably normal in size. A pacemaker [...] no evidence of tricuspid valve regurgitation present. Pericardium The pericardium appears normal and there is no evidence of a pericardial effusion. Stress EKG: paced rhythm. EKG: right bundle branch block. The patient is taking a beta makeda. no hold. took at 11am The patient is taking a lipid lowering agent. The patient is taking a calcium channel makeda. The patient is taking aspirin. Misc Other echo and stress findings as noted in report. Stress echo, limited spectral Doppler, color Doppler and ECG interpretation performed. FINDINGS: Peak Left Ventricle The mid inferolateral wall segment deteriorated. The basal anteroseptal, basal inferior, basal inferoseptal, mid anteroseptal, mid inferior, mid inferoseptal, apical septal, apical anterior, apical lateral and apical inferior wall segments are unchanged. Stress Patient followed a Timmy protocol. The patient exercised into stage 1. The total exercise duration was:2:19 minutes The study was terminated because of fatigue.felt dizzy as well Maximum heart rate achieved was 125, which is 82% of the maximum(153 beats/min). The target heart rate was not achieved. The patient expressed feelings of chest discomfort. The blood pressure response was normal. Exercise capacity was poor. The patient achieved a level of 5 METS. There were occasional atrial premature contractions. There were occasional ventricular premature beats. This was an equivocal echocardiographic stress test. EKG: Premature ventricular contractions noted. EKG: right bundle branch block. The patient is taking a beta makeda. The patient is taking a lipid lowering agent. The patient is taking a calcium channel makeda. The patient is taking aspirin. FINDINGS: Recovery Stress EKG: Premature ventricular contractions noted. EKG: right bundle branch block. The patient is taking a beta makeda. The patient is taking a lipid lowering agent. The patient is taking a calcium channel makeda. The patient is taking aspirin. Wall Motion: Segment Name Rest Peak Base-Anteroseptal Hypokinetic Hypokinetic Base-Anterior Normal Normal Base-Anterolateral Normal Normal Base-Posterolateral Normal Normal Base-Inferior Hypokinetic Hypokinetic Base-Inferoseptal Hypokinetic Hypokinetic Mid-Anteroseptal Hypokinetic Hypokinetic Mid-Anterior Normal Normal Mid-Anterolateral Normal Normal Mid-Posterolateral Normal Hypokinetic Mid-Inferior Hypokinetic Hypokinetic Mid-Inferoseptal Hypokinetic Hypokinetic [place]-Septal Hypokinetic Hypokinetic [place]-Anterior Hypokinetic Hypokinetic [place]-Lateral Hypokinetic Hypokinetic [place]-Inferior Hypokinetic Hypokinetic [place]-Tip Hypokinetic Hypokinetic Chambers Value Units (Range) EF Bi-p Simp 44 % (55 to 80) LVIDd 2D 5.9 cm This report has been electronically signed by: Rodney Artis MD 07/10/2012 15:23:06 Images reviewed and interpretation verified [facility] Brady Ugarte MD ECHO ORDERABLES documented in this encounter Visit Diagnoses Diagnosis Tightness in chest Other chest pain documented in this encounter Care Teams Director Medical Writing Relationship Specialty Start Date End Date Carlos Valdez MD [address] [place] [address] PCP - General 03/25/11 08/07/22 documented as of this encounter
--- OUTSIDE RECORDS SUMMARY | 2023-12-11 18:49 | XMS_ITS | Encounter Summary ---
Author Organization [facility] [place] [address] Care Team Providers Care Traffic Coordinator Name Role Phone Charli Jaramillo MD Primary Care Provider [phone] Reason for Visit * Reason Comments Follow-up CHB, recent pacemake r implant, cardiomyopathy Encounter Details Date Type Department Care Team (Latest Contact Info) Description 06/26/2012 8:40 AM EDT Follow-Up Cardiology at [address] [address] Carmela Ugarte MD [facility] [address] CARDIOLOGY [place] [address] Other primary cardiomyopathies (Primary Dx); Cardiomyopathy; Heart failure chronic systolic dysfunction; Alcohol use; HX SUDDEN CARDIAC ARREST; Complete heart block; Cardiac pacemaker; LBBB (left bundle branch block); Chronic systolic heart failure; CAD (coronary artery disease) Discharge Disposition: Home Social History Tobacco Use [...] Sign Reading Time Taken Comments Blood Pressure 116/84 06/26/2012 7:51 AM EDT Pulse 80 06/26/2012 7:51 AM EDT Temperature - - Respiratory Rate 16 06/26/2012 7:51 AM EDT Oxygen Saturation 96% 06/26/2012 7:51 AM EDT Inhaled Oxygen Concentration - - Weight 105.2 kg (232 lb) 06/26/2012 7:51 AM EDT Height 198.1 cm (6' 5.99) 06/26/2012 7:51 AM ED T Body Mass Index 26.82 06/26/2012 7:51 AM EDT documented in this encounter Patient Instructions * Patient Instructions* Carmela Ugarte MD - 06/26/2012 9:15 AM EDT You were recently evaluated urgently while traveling when he presented with a very slow heart rate,secondary to a condition called complete heart block. This is when the normal conduction through the heart is interrupted secondary to the underlying heart muscle conduction problems. He also mentioned that she had an episode of cardiac arrest requiring defibrillation in the intensive care unit andhe subsequently underwent an urgent heart catheterization demonstrating no significant coronary artery blockages. Your pumping function ejection fraction estimate was approximately 50-55%, similar toher last study here. You subsequently underwent a dual-chamber permanent pacemaker, Medtronic, with appropriate functionon device interrogation today. This would need to be rechecked in 3 months and every 3 months thereafter. The initiating a medication called amlodipine, for blood pressure, which potentially could be discontinued if we know that your blood pressure is well- controlled on your other medications. Medication changes today: None Laboratory tests today demonstrates normal blood counts, electrolytes, kidney function, and liver function tests. Your proBNP, a marker for heart failure, is similar to prior study in December. Please continue to monitor your sodium intake, watch her daily weights, and report if you have any new symptoms such as palpitations, lightheaded spells, passing out spells, or evidence of fluid retention. documented in this encounter Progress Notes * Carmela Ugarte MD - 06/26/2012 6:45 AM EDT Images from the original note were not included. [place] [address] CARDIOMYOPATHY/HEART FAILURE SERVICE OUTPATIENT CLINIC NOTE Jimmie Mccauley 06/26/2012 Primary Care Provider: CHARLI JARAMILLO MD Referring Provider: Charli Jaramillo CHIEF COMPLAINT: Chief Complaint Patient presents with ??? Follow-up CHB, recent pacemaker implant, cardiomyopathy HISTORY OF PRESENT ILLNESS: Jimmie Mccauley is a 67 y.o. patient seen in routine follow up in the [facility], and in the interim, the patient was traveling on vacation and apparently cut his finger and reported to a local emergency room in [place]. He was told that he had a low heart rate in july need a pacemaker but he declined any further evaluation as he was asymptomatic. 2 weeks later, while [place], the patient felt weak, tired, with dizziness [...] followup chest x-ray showed no evidence of pneumothorax. I do not have EKGs available for my review. Since returning to [facility], the patient actually feels well with no [...] prior to this. There were no new medicationsor [id number] therapy initiated during this timeframe. On discharge, [...] V45.01 ??? HX SUDDEN CARDIAC ARREST V12.53 Patient Active Problem List Diagnoses ??? Non-ischemic cardiomyopathy Dilated cardiomyopathy -- non-ischemic. [...] cm Echo ([place]) 06/13/12 EF=50% New CHB d. Sinus rhythm with left bundle branch block, PVCs, QRS kkjasycx=997 msec. Symptomatic CHB 06/13/12- s/p DDDR pacemaker [...] use ??? LBBB (left bundle branch block) DUQ=323 ms New Symptomatic CHB 05/30-->declined pacer at initial presentation while traveling -S/p temp pacer-->Permanent DDDR pacer -LVEF~ 50-55%, ICD not indicated, but at risk for V paced rhythm dyssynchrony ??? Complete heart block Symptomatic bradycardia with CHB and LBBB, HR in the 20-30s Initially seen at a local ER, pacemaker recommended, but declined While in [facility], [place], called [facility] in cath report, but likely symptomatic bradycardia and CHB CHB- s/p temporary pacer 06/13/2012 - cath: Angiogram, mild irregularities of LAD, LCXF dominant, 30-40% mid RCA - No LV gram done S/p DDD-R Pacemaker Medtronic Adapta Dual Chamber Model # ADDR01, Serial number [id number] -[place], [place] ??? Cardiac pacemaker Indications: Symptomatic CHB, with slow VR ~ 20-30 Current Platform: DDD-R Pacemaker Medtronic Adapta Dual Chamber Model # ADDR01, Serial number [id number] -[place], [place] ??? HX SUDDEN CARDIAC ARREST Probably [...] Outpatient Prescriptions Marked as Taking for the 06/26/12 encounter (Follow-Up) with Carmela Ugarte MD Medication Sig Dispense Refill ??? amlodipine (NORVASC) 5 mg tablet Take 5 mg by mouth daily. ??? Carvedilol Phosphate (COREG CR) 40 mg CM24 Take 40 mg by mouth daily. 90 mg 3 ??? losartan (COZAAR) 100 mg tablet Take 1 tablet by mouth daily. 90 tablet 3 ??? aspirin 325 mg EC tablet Take 325 mg by mouth daily. ??? sildenafil (VIAGRA) 100 mg tablet Take 1 tablet by mouth once as needed. 10 tablet 0 ??? zolpidem (AMBIEN) 10 mg tablet Take 1 tablet by mouth nightly. 30 tablet 0 REVIEW OF SYSTEMS: Review of Systems Pertinent Negatives or Positives General Denies Fever, chills, night sweats. Weight stable. Sleep habits usually good Eyes No visual loss, double vision, drainage, eye pain, dry eyes, or other sxs reported. ENT No sore throat, dry mouth, eptistaxis or other sxs reported. Cardiac Denies angina, palpitations, recent near syncope-status post DDDR pacemaker for symptomaticbradycardia and complete heart block. Denies CORNEJO, Orthopnea, PND, LE edema Pulmonary No shortness of breath, cough, hemoptysis, or other sxs reported. Heme/Lymph No swollen glands, fever, bleeding, or other sxs reported. GI No abdominal pain, change in bowel habits, melena, [...] Signs: Wt Readings from Last 3 Encounters: 06/26/12 105.235 kg (232 lb) 06/26/12 105.235 kg (232 lb) 01/11/12 107.502 kg (237 lb) Temp Readings from Last 3 Encounters: No data found for Temp BP Readings from Last 3 Encounters: 06/26/12 116/84 06/26/12 116/84 01/11/12 142/78 Pulse Readings from Last 3 Encounters: 06/26/12 80 06/26/12 80 01/11/12 60 SpO2: [96 %] General -Alert, oriented, NAD. Affect good spirits, appropriate, answers questions appropriately. Well-developed male HEENT -unremarkable, no xanthelasma, arcus, icterus. PERRLA, moist mucous membranes. Dentition good. Neck -without lymphadenopathy, mass, thyromegaly Carotid upstroke Chest -site well healed, slightly tender, mild ecchymoses, slightly full. Lungs -clear without rales or rhonchi Cardiac -Regular with normal S1, normally split S2, 1/6 systolic crescendo decrescendo murmur, no S3 or S4 gallop is noted. PMI not displaced. No RV lift. JVP~ less than cm H20, without AJR. Abdomen -soft, non-tender, no significant organomegaly, masses or bruits Extremities - without pretibial or ankle edema, warm to feet. Pulses 1-2+ Neuro -intact CN, motor LAB STUDIES: Recent Results (from the past 72 hour(s)) CBC (WITH DIFF) Component Value Range WBC 11.2 (*) 4.0 - 10.0 x10(3)/mcL RBC 4.98 4.63 - 6.08 x10(6)/mcL Hemoglobin 14.8 13.7 - 17.5 gm/dL Hematocrit 44.2 40.0 - 51.0 % MCV 88.8 79.0 - 92.0 fL MCH 29.7 25.6 - 32.2 pg MCHC 33.5 32.0 - 36.5 gm/dL Platelets 272 145 - 370 x10(3)/mcL RDWSD 38.9 35.0 - 46.0 fL RDWCV 12.2 10.9 - 14.4 % MPV 10.3 9.0 - 12.0 fL COMPREHENSIVE METABOLIC PANEL (NON-FASTING) Component Value Range Glucose Lvl 110 60 - 199 mg/dL BUN 22 (*) 10 - 20 mg/dL Creatinine 1.10 0.80 - 1.50 mg/dL Sodium 138 135 - 145 mmol/L Potassium 4.4 3.5 - 5.0 mmol/L Chloride 102 98 - 107 mmol/L CO2 28 22 - 31 mmol/L Anion Gap 8 5 - 15 mmol/L Calcium 10.0 8.5 - 10.5 mg/dL Total Protein 6.7 6.4 - 8.3 gm/dL Albumin 3.7 3.2 - 5.2 gm/dL AST 15 0 - 39 unit/L ALT 16 0 - 55 unit/L Alk Phos 56 40 - 120 unit/L Total Bilirubin 1.3 0.2 - 1.3 mg/dL Bili, Direct 0.2 0.0 - 0.3 mg/dL Estimated GFR >60 >=60 PRO-BRAIN NATRIURETIC PEPTIDE Component Value Range ProBNP 234 (*) <=125 pg/mL URIC ACID Component Value Range Uric Acid 6.3 3.5 - 8.5 mg/dL SCAN, PERIPHERAL BLOOD Component Value Range Plat Estimate Normal RBC Morphology Normal Giant Platelets Less than 1 DIFFERENTIAL, AUTOMATED Component Value Range Neutrophils % 68.8 34.0 - 71.0 % Neutr Abs (ANC) 7.73 (*) 1.50 - 6.30 x10(3)/mcL Lymphocytes % 21.0 19.0 - 53.0 % Lymphocytes Abs 2.4 1.0 - 3.6 x10(3)/mcL Monocytes % 6.9 4.0 - 13.0 % Monocyte Abs 0.8 0.2 - 1.0 x10(3)/mcL Eosinophils % 2.8 0.0 - 7.0 % Eosinophils Abs 0.3 0.0 - 0.5 x10(3)/mcL Basophils % 0.4 0.0 - 2.0 % Basophils Abs 0.0 0.0 - 0.2 x10(3)/mcL Immature Gran % 0.10 0.00 - 0.66 % Elva Gran Abs 0.01 0.00 - 0.05 x10(3)/mcL CARDIAC STUDIES EKG-atrial sensed NSR, ventricular paced rhythm, UWU=[id number] Device interrogation-reviewed personally PROBLEMS: Non-ischemic cardiomyopathy Stable if not improved LV function by report Now 99% SPEECH AND DRAMA TEACHER rhythm, s/p DDD pacer, at risk for pacer induced CM, patient counseled Heart failure chronic systolic dysfunction Well compensated and euvolemic BP well controlled LBBB (left bundle branch block) No V paced Complete heart block Pacer interrogation today, reviewed -SPEECH AND DRAMA TEACHER= 66% AP-SPEECH AND DRAMA TEACHER=33% Initiate into EP /Device clinic Alcohol use 1 drink per day Cardiac pacemaker Stable post implant, CXR by report without pneumothorax Mild tenderness at the insertion site with mild ecchymoses ASSESSMENT: The patient is doing quite well after his recent clinical episode with symptomatic bradycardia and complete heart block in the setting of preserved cardiac function and history of nonischemic cardiomyopathy. He has not had any significant heart failure. Is not clear what the cardiac arrest event was, but presumably it was related to bradycardia and possibly bradycardia induced V. fib rather than a primary V. fib episode in the setting of relatively preserved LVEF of 50-55%. He is doing well post implant. I had a lengthy discussion reviewing his cardiac status and rationale for device therapy.As he is now 99% ventricular paced rhythm, it is possible he could have pacemaker induced LV dysfunction and we will want to monitor him carefully post-implant. He otherwise appears to be well compensated and euvolemic. Depending on his blood pressure, we may be able to wean and discontinue amlodipine and continue his other cardioprotective medications. All questions addressed. I thoroughly reviewed the patient's current clinical [...] of discussed. - No Changes in cardiac medications - Depending on clinical response and blood pressure, may consider weaning or discontinue amlodipine 2. The following labs, referrals or other testing advised: - EKG-today - Base echocardiogram next visit, to follow LV function post pacemaker implant, and 99% ventricularpaced rhythm - Pacemaker reprogramming in 3 months post-implant per EP cardiology 3. COUNSELING: Specific issues or questions addressed on this visit: - As above - I cautioned her to limit his alcohol use - Reviewed his laboratories, EKG, and recent clinical course and available discharge documents fromhis recent hospitalization in [place] 4. Cardiology follow-up scheduled for: - 6 Months or earlier as clinically indicated - PCP and other subspecialists as previously arranged Carmela Ugarte MD, [facility] [employer] mechanic Cardiology Director, Cardiovascular Critical Care Painter Helper, Advanced Heart Failure and Cardiomyopathy Program [facility] documented in this encounter Miscellaneous Notes * Addendum Note - Carmela Ugarte MD - 08/01/2012 5:29 AM EDTAddended by: CARMELA UGARTE on: 08/01/2012 05:29 AM Modules accepted: Orders * Addendum Note - Marcela Fam LPN - 06/26/2012 9:50 AM EDTAddended by: MARCELA FAM on: 06/26/2012 09:50 AM Modules accepted: Orders * Assessment & Plan Note - Carmela Ugarte MD - 06/26/2012 9:13 AM EDTAssociated Problem(s): Cardiac pacemaker (Resolved 04/02/2013) Stable post implant, CXR by report without pneumothorax Mild tenderness at the insertion site with mild ecchymoses * Assessment & Plan Note - Carmela Ugarte MD - 06/26/2012 9:12 AM EDTAssociated Problem(s): Alcohol use 1 drink per day * Assessment & Plan Note - Carmela Ugarte MD - 06/26/2012 9:11 AM EDTAssociated Problem(s): Complete heart block Pacer interrogation today, reviewed -SPEECH AND DRAMA TEACHER= 66% AP-SPEECH AND DRAMA TEACHER=33% Initiate into EP /Device clinic * Assessment & Plan Note - Carmela Ugarte MD - 06/26/2012 9:11 AM EDTAssociated Problem(s): LBBB (left bundle branch block) No V paced * Assessment & Plan Note - Carmela Ugarte MD - 06/26/2012 9:10 AM EDTAssociated Problem(s): Heart failure chronic systolic dysfunction Well compensated and euvolemic BP well controlled * Assessment & Plan Note - Carmela Ugarte MD - 06/26/2012 9:09 AM EDTAssociated Problem(s): Non-ischemic cardiomyopathy Stable if not improved LV function by report Now 99% SPEECH AND DRAMA TEACHER rhythm, s/p DDD pacer, at risk for pacer induced CM, patient counseled documented in this encounter Plan of Treatment Upcoming Encounters Date Type Department Care Team (Late st Contact Info) Description 02/26/2024 10:00 AM [facility] Hospital Encounter [place] [address] Arrived documented as of this encounter Procedures Procedure Name Priority Date/Time Associated Diagnosis Comments EKG 12-LEAD Routine 06/26/2012 9:23 AM EDT Cardiomyopathy SCAN, PERIPHERAL BLOOD STAT 06/26/2012 7:32 AM EDT DIFFERENTIAL, AUTOMATED STAT 06/26/2012 7:32 AM EDT CBC (WITH DIFF) STAT 06/26/2012 7:32 AM EDT Other primary cardiomyopathies URIC ACID STAT 06/26/2012 7:32 AM EDT Other primary cardiomyopathies PRO-BRAIN NATRIURETIC PEPTIDE STAT 06/26/2012 7:32 AM EDT Other primary cardiomyopathies COMPREHENSIVE METABOLIC PANEL STAT 06/26/2012 7:32 AM EDT Other primary cardiomyopathies documented in this encounter Results * EKG 12 Lead (06/26/2012 9:23 AM EDT) Ventricular rate 62 BPM MUSE SYSTEM Atrial Rate 62 BPM MUSE SYSTEM P-R Interval 136 ms MUSE SYSTEM QRS Duration 162 ms MUSE SYSTEM Q-T Interval 534 ms MUSE SYSTEM QTC Calculated (Bezet) 542 ms MUSE SYSTEM Calculated P [place] 54 degrees MUSE SYSTEM Calculated R [place] -80 degrees MUSE SYSTEM Calculated T [place] 85 degrees MUSE SYSTEM INTERPRETATION AV sequential or dual chamber electronic pacemaker Confirmed by MD Franklin Douglas ([id number]) on 06/26/2012 3:19:06 PM MUSE SYSTEM 06/26/2012 9:23 AM EDT 06/26/2012 3:19 PM EDT Carmela Ugarte MD ECG ORDERABLES MUSE SYSTEM * (ABNORMAL) Differential, Automated (06/26/2012 7:32 AM EDT) Neutrophil % 68.8 34.0 - 71.0 % CERNER MILLENNIUM Neutrophil Absolute 7.73(H) 1.50 - 6.30 x10(3)/mc L CERNER MILLENNIUM Lymph % 21.0 19.0 - 53.0 % CERNER MILLENNIUM Lymphocytes Abs 2.4 1.0 - 3.6 x10(3)/mc L CERNER MILLENNIUM Monocyte % 6.9 4.0 - 13.0 % CERNER MILLENNIUM Monocyte Abs 0.8 0.2 - 1.0 x10(3)/mc L CERNER MILLENNIUM Eos % 2.8 0.0 - 7.0 % CERNER MILLENNIUM Eosinophils Abs 0.3 0.0 - 0.5 x10(3)/mc L CERNER MILLENNIUM Basophil % 0.4 0.0 - 2.0 % CERNER MILLENNIUM Baso Absolute 0.0 0.0 - 0.2 x10(3)/mc L CERNER MILLENNIUM Immature Gran % 0.10 0.00 - 0.66 % CERNER MILLENNIUM Comment: Immature granulocytes(IG's)percentage and absolute count will include metamyelocytes, myelocytes, and promyelocytes. Blood smears from CBCs yielding IG's will be scanned manually for concordance. If this scan disagrees with the automated IG or if promyelocytes are noted, a manual differential will be performed. Immature Gran Absolute 0.01 0.00 - 0.05 x10(3)/mc L [facility] Blood specimen (specimen) 06/26/2012 7:32 AM EDT 06/26/2012 7:37 AM EDT Carmela Ugarte MD HEMATOLOGY ORDERABLE S Performing Organization Address City/[facility]/ZIP Co de Phone Number [facility] * Scan, Peripheral Blood (06/26/2012 7:32 AM EDT) Plat estimate Normal [facility] RBC Morphology Normal CERNE R MILLENNIUM Plat, Giant Less than 1 /HPF [facility] Blood specimen (specimen) 06/26/2012 7:32 AM EDT 06/26/2012 7:37 AM EDT Narrative Resulting Agency Comment Spec In Lab Carmela Ugarte MD HEMATOLOGY ORDERABLE S Performing Organization Address [facility] Co de Phone Number [facility] * Uric acid (06/26/2012 7:32 AM EDT) Pathologist [facility] Uric Acid 6.3 3.5 - 8.5 mg/dL [facility] Blood specimen (specimen) 06/26/2012 7:32 AM EDT 06/26/2012 7:37 AM EDT Narrative Resulting Agency Comment Spec In Lab Carmela Ugarte MD CHEMISTRY ORDERABLES Performing Organization Address [facility] Co de Phone Number [facility] * (ABNORMAL) pro-Brain Natriuretic Peptide (06/26/2012 7:32 AM EDT) NT-proBNP 234(H) <=125 pg/mL [facility] Blood specimen (specimen) 06/26/2012 7:32 AM EDT 06/26/2012 7:37 AM EDT Narrative Resulting Agency Comment Spec In Lab Carmela Ugarte MD CHEMISTRY ORDERABLES CERNER MILLENNIUM * (ABNORMAL) Comprehensive metabolic panel (non-fasting) (06/26/2012 7:32 AM EDT) Glucose 110 60 - 199 mg/dL CERNER MILLENNIUM Comment:Diabetes: >=200 mg/d L plus symptoms Blood Urea Nitrogen 22(H) 10 - 20 mg/dL CERNER MILLENNIUM Creatinine 1.10 0.80 - 1.50 mg/dL CERNER MILLENNIUM Comment: Please note that the pediatric reference intervals supplied above were not validated at [facility]. Results from pediatric patients should be interpreted in conjunction to the patient's age, height and muscle mass. Sodium 138 135 - 145 mmol/L CERNER MILLENNIUM Potassium 4.4 3.5 - 5.0 mmol/L CERNER MILLENNIUM Comment: Please note: ??Patients with WBC >100,000 may have falsely elevated Potassium levels. ??For accurate Potassium quantification in these patients send serum separator tube (gold top) for subsequent determinations. ??Contact the Clinical Chemistry Laboratory if there are any questions. Chloride 102 98 - 107 mmol/L CERNER MILLENNIUM Carbon Dioxide 28 22 - 31 mmol/L CERNER MILLENNIUM Anion Gap 8 5 - 15 mmol/L CERNER MILLENNIUM Calcium 10.0 8.5 - 10.5 mg/dL CERNER MILLENNIUM Protein, Total 6.7 6.4 - 8.3 gm/dL CERNER MILLENNIUM Albumin 3.7 3.2 - 5.2 gm/dL CERNER MILLENNIUM Aspartate Aminotransferase 15 0 - 39 unit/L CERNER MILLENNIUM Alanine Aminotransferase 16 0 - 55 unit/L CERNER MILLENNIUM Alkaline Phosphatase 56 40 - 120 unit/L CERNER MILLENNIUM Bilirubin, Total 1.3 0.2 - 1.3 mg/dL CERNER MILLENNIUM Bilirubin, Direct 0.2 0.0 - 0.3 mg/dL CERNER MILLENNIUM Est Glomerular Filtration Rate >60 >=60 CERNER MILLENNIUM Comment: The National Kidney Disease Education Program (NKDEP) has recommended all laboratories report estimated GFR (eGFR) along with plasma creatinine measurements to assist you with recognition of early kidney disease. Caveats: ??Plasma creatinine should be at steady-state (unchanged within the past week). For patients multiply eGFR by 1.2. The MDRD equation was developed using patients between the ages of 18 and 70 years. ?? The MDRD equation has not been validated for patients < 18 years of age and should not be used to assess renal function in the pediatric population. ??The MDRD eGFR equation will also overestimate the true GFR of patients above the age of 70. ??This overestimation is variable but increases with age. At present, NKDEP does NOT recommend using the MDRD equation for drug dosing purposes and pharmacists should continue to use their current dosing methods. In addition, numerical eGFR values greater than 60 ml/min/1.73 square meters should be treated as > 60, and not an exact number due to greater inaccuracies at these higher values. Per NKDEP, they classify normal renal function as any GFR >60ml/min/1.73 square meters; chronic kidney disease when GFR <60, and renal failure when GFR <15. ??This calculation may not be valid for patients with atypical muscle mass (very lean or obese), acute renal failure, and in patients with diabetic kidney disease. References: http://nkdep.nih.gov/resources/NKDEP_Suggestn4Labs_0606_508.pdf http://www.kidney.org/professionals/kls/pdf/faq_gfr.pdf Kun Deluna, Davidson NA, Domingo AK, Manjit TS, Toby AD, Eriberto DAMION. Relative performance of the MDRD and CKD-EPI equations for estimating glomerular filtration rate among patients with varied clinical presentations. Clin J Am Soc Nephrol;6:1963-72. Blood specimen (specimen) 06/26/2012 7:32 AM EDT 06/26/2012 7:37 AM EDT Narrative Resulting Agency Comment Spec In Lab Carmela Ugarte MD CHEMISTRY ORDERABLES [facility] * (ABNORMAL) CBC (with Diff) (06/26/2012 7:32 AM EDT) White Blood Cell 11.2(H) 4.0 - 10.0 x10(3)/mc L CERNER MILLENNIUM Red Blood Cell 4.98 4.63 - 6.08 x10(6)/mc L CERNER MILLENNIUM Hemoglobin 14.8 13.7 - 17.5 gm/dL CERNER MILLENNIUM Hematocrit 44.2 40.0 - 51.0 % CERNER MILLENNIUM Mean Cell Volume 88.8 79.0 - 92.0 fL CERNER MILLENNIUM Mean Cell Hemoglobin 29.7 25.6 - 32.2 pg CERNER MILLENNIUM Mean Cell Hemoglobin Concentration 33.5 32.0 - 36.5 gm/dL CERNER MILLENNIUM Platelet 272 145 - 370 x10(3)/mc L CERNER MILLENNIUM RDW Standard Deviation 38.9 35.0 - 46.0 fL CERNER MILLENNIUM RDW coefficient of variation 12.2 10.9 - 14.4 % CERNER MILLENNIUM Mean Platelet Volume 10.3 9.0 - 12.0 fL CERNER MILLENNIUM Blood specimen (specimen) 06/26/2012 7:32 AM EDT 06/26/2012 7:37 AM EDT Narrative Resulting Agency Comment Spec In Lab Carmela Ugarte MD HEMATOLOGY ORDERABLE S [facility] documented in this encounter Visit Diagnoses Diagnosis Other primary cardiomyopathies- Primary Cardiomyopathy Other primary cardiomyopathies Heart failure chronic systolic dysfunction Heart failure, unspecified Alcohol use Other problems related to lifestyle HX SUDDEN CARDIAC ARREST Complete heart block Atrioventricular block, complete Cardiac pacemaker Cardiac pacemaker in situ LBBB (left bundle branch block) Other left bundle branch block Chronic systolic heart failure CAD (coronary artery disease) Coronary atherosclerosis of unspecified type of vessel, [place] or graft documented in this encounter Care Teams Traffic Coordinator Relationship Specialty Start Date End Date Charli Jaramillo MD [address] [place] [address] PCP - General 03/25/11 08/07/22 documented as of this encounter
--- OUTSIDE RECORDS SUMMARY | 2023-12-11 18:49 | XMS_ITS | Encounter Summary ---
Author Organization Formerly [facility] [place] [address] Care Team Providers Care Sports Medicine Masseur Name Role Phone Carlos Valdez MD Primary Care Provider Encounter Details Date Type Department Care Team (Latest Contact Info) Description 07/10/2012 2:18 PM EDT - 07/10/2012 11:59 PM EDT Hospital Encounter Non[place] [address] CLINIC, Brady Abernathy MD [facility] [place] [address] Discharge Disposition: Home Social History Tobacco Use [...] 01/11/2011 Carvedilol Phosphate (COREG CR) 40 mg [id number]:Chronic systolic heart failure Take 40 mg by [...] st Contact Info) Description 02/26/2024 10:[address] [facility] Hospital Encounter Non[place] [phone] Arrived documented as of this encounter Visit Diagnoses Not on filedocumented in this encounter Care Teams Sports Medicine Masseur Relationship Specialty Start Date End Date Carlos Valdez MD [address] [place] [address] PCP - General 03/25/11 08/07/22 documented as of this encounter
--- OUTSIDE RECORDS SUMMARY | 2023-12-11 18:49 | XMS_ITS | Encounter Summary ---
Author Organization [facility] [address] Care Team Providers Care Control System Computer Scientist Name Role Phone Carlos Valdez MD Primary Care Provider [phone] Reason for Visit * Reason Onset Date Comments Other 08/16/2012 ECHO ORDER Encounter Details Date Type Department Care Team (Late st Contact Info) Description 08/16/2012 Telephone Cardiology [place] [address] Xin Grewal, SONIA [facility] [place] [address] Other (ECHO ORDER) Social History Tobacco Use Types Packs/Day Years Used Date Smoking Tobacco: Former Cigarettes Q uit: 01/12/1996 Smokeless Tobacco: Never Comments:stopped 15 years Sex and Gender Information Value Date Recorded Sex Assigned at Not on file Gender Identity Not on file Sexual Orientation Not on file documented as of this encounter Miscellaneous Notes * Telephone Encounter - Mirtha Isabel - 08/16/2012 12:49 PM EDT Please sign attached order for upcoming appointment. documented in this encounter Plan of Treatment Upcoming Encounters Date Type Department Care Team (Late st Contact Info) Description 02/26/2024 10:00 AM EST Hospital Encounter Non-Invasive [place] [phone] Arrived documented as of this encounter Results * Echo Transthoracic (Complete) (08/17/2012 10:15 AM EDT) EF 34 HEARTLAB SYSTEM Anatomical Region Laterality Modality Other 08/17/2012 Narrative 08/17/2012 10:26 AM EDT Procedure: ? Transthoracic Echocardiogram Patient: ? PORSCHE Mancilla ?(Age): 1945(67) Med Rec#: ?[id number] ? Sex: ?M ? Site Loc: ?[facility] ? Ht / Wt: ??200(cm)/104(kg) Pt. Loc: ? Echo Lab ? BSA: ?2.4 Study Date: ?08/17/2012 ? Pt. Type: Outpatient Tape: ? Referring: Brady Ugarte ([id number]) Financial Processing Clerk: Malcolm Cooper Diagnosis:CPT Code(s): ??Color Doppler (54992), ??Echo LTD (07701), Doppler LTD (01988), Indication(s): ??Dizziness Rhythm: Paced rhythm HR ?BP ?129/73 ?? SUMMARY: 1. The left ventricle is mildly dilated. ??Mild concentric left ventricular hypertrophy is observed. ??Global left ventricular systolic function is moderately reduced. The quantitative left ventricular ejection fraction by 3-D rendering is 34%. ??There are left ventricular segmental wall motion abnormalities present, as shown in the diagram below. 2. Right ventricular chamber size, wall thickness, and systolic function are within normal limits. 3. There is no hemodynamically significant valve disease. 4. See remainder of report for additional findings. FINDINGS: Study Quality ?Adequate Left Ventricle ?The left ventricle is mildly dilated. ?Mild concentric left ventricular hypertrophy is observed. ?Global left ventricular systolic function is moderately reduced. ?The quantitative left ventricular ejection fraction by 3-D rendering is 34%. ?There are left ventricular segmental wall motion [...] and apical inferior wall segments are akinetic. Right Ventricle ?Right ventricular chamber size, wall thickness, and systolic function are within normal limits. Aortic Valve ?The aortic valve is trileaflet. The leaflets are thin with normal excursion. There is no aortic stenosis or regurgitation present. Mitral Valve ?The mitral valve appears normal in structure and function. ?There is mild (1+/4+) mitral regurgitation present. Tricuspid Valve ?The tricuspid valve appears normal in structure and function. ?There is trace tricuspid regurgitation present. Pericardium ?No pleural effusion is present. Misc ?See remainder of report for additional findings. ?Two-dimensional echo, spectral Doppler and color Doppler performed. Wall Motion: Segment Name ?Rest ? Base-Anteroseptal ?? Hypokinetic ? Base-Anterior ? Hypokinetic ? Base-Anterolateral ??Hypokinetic ? Base-Posterolateral Hypokinetic ? Base-Inferior ? Akinetic ? Base-Inferoseptal ?? Akinetic ? Mid-Anteroseptal ?Hypokinetic ? Mid-Anterior ?Hypokinetic ? Mid-Anterolateral ?? Hypokinetic ? Mid-Posterolateral ??Hypokinetic ? Mid-Inferior ?Akinetic ? Mid-Inferoseptal ?Akinetic ? [place]-Septal ? Akinetic ? [place]-Anterior ? Akinetic ? [place]-Lateral ?Hypokinetic ? [place]-Inferior ? Akinetic ? [place]-Tip ?Akinetic ? Chambers ?Value ?Units (Range) ? 3D LVEF ? 34 ? % ? IVSd 2D ? 1.3 ?cm ? LVIDd 2D ?5.8 ?cm ? PWd 2D ?1.2 ?cm ? LVIDs 2D ?4.8 ?cm ? LVFS 2D ? 17 ? % ? Mitral Valve ?Value ?Units (Range) ? E peak ?0.95 ? m/sec ? E1 ?0.12 ? m/sec ? E/E1 ?8 ?ratio ? This report has been electronically signed by: Carter Guzmán M.D. ? 08/17/2012 10:25:41 Images reviewed and interpretation verified [facility] Cardiac Ultrasound Laboratory Procedure Note Carter Guzmán MD - 08/17/2012 Procedure: Transthoracic Echocardiogram Patient: PORSCHE Mancilla DOB(Age): 1945(67) Med Rec#: [id number] Sex: M Site Loc: [facility] Ht / Wt: 200(cm)/104(kg) Pt. Loc: Echo Lab BSA: 2.4 Study Date: 08/17/2012 Pt. Type: Outpatient Tape: Referring: Brady Ugarte ([id number]) Financial Processing Clerk: Malcolm Cooper Diagnosis:CPT Code(s): Color Doppler (02170), Echo LTD (39526), Doppler LTD (35655), Indication(s): Dizziness Rhythm: Paced rhythm HR BP 129/73 SUMMARY: 1. The left ventricle [...] report for additional findings. FINDINGS: Study Quality Adequate Left Ventricle The left ventricle is mildly dilated. Mild [...] and apical inferior wall segments are akinetic. Right Ventricle Right ventricular chamber size, wall thickness, and systolic function are within normal limits. Aortic Valve The aortic valve is trileaflet. The leaflets are thin with normal excursion. There is no aortic stenosis or regurgitation present. Mitral Valve The mitral valve appears normal in structure and function. There is mild (1+/4+) mitral regurgitation present. Tricuspid Valve The tricuspid valve appears normal in structure and function. There is trace tricuspid regurgitation present. Pericardium No pleural effusion is present. Misc See remainder of report for additional findings. Two-dimensional echo, spectral Doppler and color Doppler performed. Wall Motion: Segment Name Rest Base-Anteroseptal Hypokinetic Base-Anterior Hypokinetic Base-Anterolateral Hypokinetic Base-Posterolateral Hypokinetic Base-Inferior Akinetic Base-Inferoseptal Akinetic Mid-Anteroseptal Hypokinetic Mid-Anterior Hypokinetic Mid-Anterolateral Hypokinetic Mid-Posterolateral Hypokinetic Mid-Inferior Akinetic Mid-Inferoseptal Akinetic [place]-Septal Akinetic [place]-Anterior Akinetic [place]-Lateral Hypokinetic [place]-Inferior Akinetic [place]-Tip Akinetic Chambers Value Units (Range) 3D LVEF 34 % IVSd 2D 1.3 cm LVIDd 2D 5.8 cm PWd 2D 1.2 cm LVIDs 2D 4.8 cm LVFS 2D 17 % Mitral Valve Value Units (Range) E peak 0.95 m/sec E1 0.12 m/sec E/E1 8 ratio This report has been electronically signed by: Carter Guzmán M.D. 08/17/2012 10:25:41 Images reviewed and interpretation verified [facility] Cardiac Ultrasound Laboratory Brady Ugarte MD ECHO ORDERABLES documented in this encounter Visit Diagnoses Diagnosis Shortness of breath- Primary Chest pain Chest pain, unspecified Shortness of breath Chest pain Chest pain, unspecified documented in this encounter Care Teams Control System Computer Scientist Relationship Specialty Start Date End Date Carlos Valdez MD [address] [place] [address] PCP - General 03/25/11 08/07/22 documented as of this encounter
--- OUTSIDE RECORDS SUMMARY | 2023-12-11 18:49 | XMS_ITS | Encounter Summary ---
[facility] [place] [address] Care Team Providers Care Director Of Cardiopulmonary Services Name Role Phone Carlos Valdez MD Primary Care Provider [phone] Reason for Visit * Reason Onset Date Comments Medication Refill 08/01/2012 Encounter Details Date Type Department Care Team (Late st Contact Info) Description 08/01/2012 Refill Cardiology at [address] [phone] Brady Ugarte MD [facility] [place] [address] Medication Refill Social History Tobacco Use Types [...] AM EST Hospital Encounter Non-[place] [phone] Arrived documented as of this encounter Visit Diagnoses Diagnosis Pulmonary embolism- Primary Other pulmonary embolism and infarction documented in this encounter Care Teams Director Of Cardiopulmonary Services Relationship Specialty Start Date End Date Carlos Valdez MD [address] [address] PCP - General 03/25/11 08/07/22 documented as of this encounter
--- OUTSIDE RECORDS SUMMARY | 2023-12-11 18:49 | XMS_ITS | Encounter Summary ---
[place] [address] Care Team Providers Care Family Helper Name Role Phone Carlos Valdez MD Primary Care Provider [phone] Encounter Details Date Type Department Care Team (Late st Contact Info) Description 08/01/2012 10:20 AM EDT - 08/01/2012 11:59 PM EDT Hospital [place] [address] Chest pain Social History Tobacco Use Types Packs/Day Years [...] by mouth nightly. 30 tablet 0 01/11/2011 enoxaparin (LOVENOX) 100 mg/mL Syrg injectionIndications:Pu lmonary embolism Inject 1 mL subcutaneously 2 times daily. 10 Syringe 1 08/01/2012 08/17/2012 warfarin (COUMADIN) 5 mg tabletIndications:Pulmo nary embolism Take 1-2 tablets by mouth daily. 60 tablet 5 08/01/2012 02/19/2013 Carvedilol Phosphate (COREG CR) 40 mg [id number]:Chronic systolic heart failure Take 40 mg by mouth daily. 30 capsule 5 06/26/2012 02/01/2013 losartan (COZAAR) 100 mg tabletIndications:Other primary cardiomyopathies Take 1 tablet by mouth daily. 90 tablet 3 06/26/2012 08/17/2012 aspirin 325 mg EC tablet Take 325 mg by mouth daily. 08/17/2012 documented as of this encounter Miscellaneous Notes * Miscellaneous - Provider, Scanning - 08/08/2012 8:23 AM EDT documented in this encounter Plan of Treatment Upcoming Encounters Date Type Department Care Team (Late st Contact Info) Description 02/26/2024 10:00 AM EST Hospital Encounter Non-Invasive [place] [address] Arrived documented as of this encounter Procedures Procedure Name Priority Date/Time Associated Diagnosis Comments CT CHEST PULMONARY EMBOLISM W CONTRAST Routine 08/01/2012 10:38 AM EDT Chest pain documented in this encounter Results * CT chest pulmonary embolism with contrast (08/01/2012 10:38 AM EDT) Anatomical Region Laterality Modality Chest Computed Tomogra phy 08/01/2012 10:3 8 AM EDT Narrative 08/01/2012 12:[address] Chest for Pulmonary Embolus With Contrast Clinical History chest discomfort/dyspnea/recent Pacer implant prolonged travel ?? r/o PE and pericardial effusion Comparison Chest x-ray July 10, 2012. Technique A CTA of the chest was performed following the intravenous administration 95 mL Omnipaque 350 according to pulmonary embolism protocol. Findings A nonocclusive filling defect is seen at the bifurcation of multiple subsegmental arteries feeding the right lower lobe (series 5, image 310). ??No additional filling defects are identified within the pulmonary arterial vasculature. The central airways are patent. The bilateral lungs show trace subsegmental atelectasis at the lung bases. ??The lungs are otherwise clear. ?? No pneumothorax. No pleural effusion. ?? Pericardial effusion. ??Pacemaker is identified in the left chest wall. No axillary lymphadenopathy. Single prominent hilar lymph node is seen on the right. ??A enlarged lymph node is identified at adjacent to the left main stem bronchus which measures 1.4 cm in the short axis, likely reactive in nature. Limited appearance of the upper abdomen shows normal appearance of the adrenal glands and visualized portions of the spleen and liver. The left kidney contains a simple cyst. ?? Degenerative changes are seen in the thoracic spine. No aggressive osseous lesion. ?? Impression 1. At the bifurcation of a tertiary artery feeding the right lower lobe, there is a small filling defects consistent with pulmonary embolism. No additional emboli identified. 2. Small pericardial effusion. ?? These results were discussed with Dr. Brady Ugarte at 1055 on August 01, 2012. ?? Film and interpretation reviewed by the attending Procedure Note Joselyn Mendez MD - 08/01/[address] Chest for Pulmonary Embolus With Contrast Clinical History chest discomfort/dyspnea/recent Pacer implant prolonged travel r/o PE and pericardial effusion Comparison Chest x-ray July 10, 2012. Technique A CTA of the chest was performed following the intravenous [id number] mL Omnipaque 350 according to pulmonary embolism protocol. Findings A nonocclusive filling defect is seen at the bifurcation of multiple subsegmental arteries feeding the right lower lobe (series 5, image 310).No additional filling defects are identified within the pulmonary arterial vasculature. The central airways are patent. The bilateral lungs show tracesubsegmental atelectasis at the lung bases. The lungs are otherwise clear. No pneumothorax. No pleural effusion. Pericardial effusion. Pacemaker is identified in the left chest wall. No axillary lymphadenopathy. Single prominent hilar lymph node is seen onthe right. A enlarged lymph node is identified at adjacent to the left mainstem bronchus which measures 1.4 cm in the short axis, likely reactive innature. Limited appearance of the upper abdomen shows normal appearance of theadrenal glands and visualized portions of the spleen and liver. The left kidney contains a simple cyst. Degenerative changes are seen in the thoracic spine. No aggressive osseous lesion. Impression 1. At the bifurcation of a tertiary artery feeding the right lower lobe,there is a small filling defects consistent with pulmonary embolism. Noadditional emboli identified. 2. Small pericardial effusion. These results were discussed with Dr. Brady Ugarte at 1055 on August 01, 2012. Film and interpretation reviewed by the attending Brady Ugarte MD IMG CT ORDERABLES documented in this encounter Visit Diagnoses Diagnosis Chest pain Chest pain, unspecified documented in this encounter Care Teams Family Helper Relationship Specialty Start Date End Date Carlos Valdez MD [address] [place] [address] PCP - General 03/25/11 08/07/22 documented as of this encounter
--- OUTSIDE RECORDS SUMMARY | 2023-12-11 18:49 | XMS_ITS | Encounter Summary ---
Author Organization [facility] [place] [address] Care Team Providers Care Security Delivery Specialist Name Role Phone Carlos Valdez MD Primary Care Provider [phone] Reason for Visit * Reason Onset Date Comments Follow-up 08/16/2012 symptoms Encounter Details Date Type Department Care Team (Late st Contact Info) Description 08/16/2012 Telephone [place] [phone] Oriana Rush, RN Follow-up (symptoms) Social History Tobacco Use Types Packs/Day Years Used Date Smoking Tobacco: Former Cigarettes Q uit: 01/12/1996 Smokeless Tobacco: Never Comments:stopped 15 years Sex and Gender Information Value Date Recorded Sex Assigned at Not on file Gender Identity Not on file Sexual Orientation Not on file documented as of this encounter Miscellaneous Notes * Telephone Encounter - Oriana Ruhs, RN - 08/16/2012 9:53 AM EDT O: Patient reports no relief of chest discomfort with Motrin. He is using oxycodone with acetaminophen prn especially to be pa to sleep at night. He reports I Have had a bad week, hurts to take adeep breath, intermittent shooting pain to L shoulder and down my side. B/P 137/76, HR 95 (he reports as high for him, usual range 60-70's), food not appealing I couldn't even toss down a donut today. He continues to lose weight without trying, weight 219.5 lbs., reports he graduated from high school ~50 years ago at 215 lbs., and hasn't been this close to that weight in years. Discussed withErlinda Grewal APRN, see plan below. A: Ongoing Intermittent symptoms. P: Urgent appt and Echocardiogram on 08/17/12, patient is in agreement with this plan. documented in this encounter Plan of Treatment Upcoming Encounters Date Type Department Care Team (Late st Contact Info) Description 02/26/2024 10:00 AM [facility] Hospital Encounter Non[place] [address] Arrived documented as of this encounter Visit Diagnoses Not on filedocumented in this encounter Care Teams Security Delivery Specialist Relationship Specialty Start Date End Date Carlos Valdez MD [address] [place] [address] PCP - General 03/25/11 08/07/22 documented as of this encounter
--- OUTSIDE RECORDS SUMMARY | 2023-12-11 18:49 | XMS_ITS | Encounter Summary ---
[place] [address] Care Team Providers Care Nurse Behavioral Health Care Name Role Phone Carlos Valdez MD Primary Care Provider [phone] Encounter Details Date Type Department Care Team (Late st Contact Info) Description 07/24/2012 Telephone Cardiology at [address] [address] Amparo Chandler, RN Social History Tobacco Use Types Packs/Day Years Used Date Smoking Tobacco: Former Cigarettes Q uit: 01/12/1996 Smokeless Tobacco: Never Comments:stopped 15 years Sex and Gender Information Value Date Recorded Sex Assigned at Not on file Gender Identity Not on file Sexual Orientation Not on file documented as of this encounter Miscellaneous Notes * Telephone Encounter - Amparo Chandler - 07/24/2012 8:57 AM [facility] message from the patient that his lyme titer was negative, received report from primary care physician's office see scanned documents in chart. documented in this encounter Plan of Treatment Upcoming Encounters Date Type Department Care Team (Late st Contact Info) Description 02/26/2024 10:00 AM EST Hospital Encounter Non-[place]vasive [place] [address] Arrived documented as of this encounter Visit Diagnoses Not on filedocumented in this encounter Care Teams Nurse Behavioral Health Care Relationship Specialty Start Date End Date Carlos Valdez MD [address] [place] [address] PCP - General 03/25/11 08/07/22 documented as of this encounter
--- OUTSIDE RECORDS SUMMARY | 2023-12-11 18:49 | XMS_ITS | Encounter Summary ---
[place] [address] Care Team Providers Care Cash Register Mechanic Name Role Phone Carlos Valdez MD Primary Care Provider [phone] Encounter Details Date Type Department Care Team (Latest Contact Info) Description 08/09/2012 Anti-Coag Telephone Visit Cardiology at [address] [phone] Yasmin [place], RN Pulmonary embolism (Primary Dx) Social History Tobacco Use Types Packs/Day Years Used Date Smoking Tobacco: Former Cigarettes Q uit: 01/12/1996 Smokeless Tobacco: Never Comments:stopped 15 years Sex and Gender Information Value Date Recorded Sex Assigned at Not on file Gender Identity Not on file Sexual Orientation Not on file documented as of this encounter Progress Notes * Yasmin [place] RN - 08/09/2012 3:41 PM EDT Anticoagulation Therapy Telephone Note: Indication: PE Anticipated End Date: ongoing Therapeutic Range:: 2-3 INR:1.9 Drawn by: [facility] Monitored By:Cardio/Kono Next INR Due: monday Warfarin dose : Increased Decreased x Maintained Comment:continue 5 mg daily & lovenox Falls Risk Assessment: Have you had any [...] [facility] Hospital Encounter Non[place] [address] Arrived documented as of this encounter Procedures Procedure Name Priority Date/Time Associated Diagnosis Comments EXTERNAL LAB RESULTS Routine 08/09/2012 documented in this encounter Results * (ABNORMAL) External Lab Results (08/09/2012) International Normalization Ratio 1.9(EXTER NAL/ABN) 0.9 - 1.1 Comment:[facility] Historical Provider CHEMISTRY ORDERAB LES documented in this encounter Visit Diagnoses Diagnosis Pulmonary embolism- Primary Other pulmonary embolism and infarction documented in this encounter Care Teams Cash Register Mechanic Relationship Specialty Start Date End Date Carlos Valdez MD [address] [address] PCP - General 03/25/11 08/07/22 documented as of this encounter
--- OUTSIDE RECORDS SUMMARY | 2023-12-11 18:49 | XMS_ITS | Encounter Summary ---
Author Organization [facility] [place] [address] Care Team Providers Care Bacteriologist Medical Name Role Phone Carlos Valdez MD Primary Care Provider [phone] Reason for Visit * Reason Onset Date Comments Medication Problem 08/04/2012 Encounter Details Date Type Department Care Team (Late st Contact Info) Description 08/04/2012 Telephone Cardiology at [address] [phone] Austin Souza MD [facility] [place] [address] Medication Problem Social History Tobacco Use Types Packs/Day Years Used Date Smoking Tobacco: Former Cigarettes Q uit: 01/12/1996 Smokeless Tobacco: Never Comments:stopped 15 years Sex and Gender Information Value Date Recorded Sex Assigned at Not on file Gender Identity Not on file Sexual Orientation Not on file documented as of this encounter Miscellaneous Notes * Telephone Encounter - Austin Souza MD - 08/04/2012 10:04 AM EDT Patient started on coumadin with lovenox bridge (1mg/kg sq bid) for small PTE noted on CT scan yesterday. He noticed some bright blood in stool today and light pink urine. Patient will continue to monitor and advised to hold off on lovenox if continued bleeding, but if bleeding resolving than can resume lovenox once a day dosing with INR check on Monday. Informed patient to go to ER if bleeding worsens. documented in this encounter Plan of Treatment Upcoming Encounters Date Type Department Care Team (Late st Contact Info) Description 02/26/2024 10:00 AM [facility] Hospital Encounter Non-Invasive [place] [address] Arrived documented as of this encounter Visit Diagnoses Not on filedocumented in this encounter Care Teams Bacteriologist Medical Relationship Specialty Start Date End Date Carlos Valdez MD [address] [place] [address] PCP - General 03/25/11 08/07/22 documented as of this encounter
--- OUTSIDE RECORDS SUMMARY | 2023-12-11 18:49 | XMS_ITS | Encounter Summary ---
[place] [address] Care Team Providers Care Vocational Counselor Name Role Phone Carlos Valdez MD Primary Care Provider [phone] Reason for Visit * Reason Onset Date Comments Follow-up 07/19/2012 Lyme titer Encounter Details Date Type Department Care Team (Late st Contact Info) Description 07/19/2012 Telephone Cardiology at [address] [phone] Oriana Rush, RN Follow-up (Lyme titer) Social History Tobacco Use Types Packs/Day Years Used Date Smoking Tobacco: Former Cigarettes Q uit: 01/12/1996 Smokeless Tobacco: Never Comments:stopped 15 years Sex and Gender Information Value Date Recorded Sex Assigned at Not on file Gender Identity Not on file Sexual Orientation Not on file documented as of this encounter Miscellaneous Notes * Telephone Encounter - Oriana Rush RN - 07/20/2012 10:20 AM EDT O: Patient had Lyme titer drawn on 07/18/12 @ PCP office, he reports it is sent out and unclear of when will be resulted, he believes it could be a week. He reports he has had 4-5 good days with no untoward symptoms and this am felt under the weather with aching in shoulders & fatigue. A: Blood work drawn as requested. P: Await results of Lyme titer. Patient will call if any change in symptoms. documented in this encounter Plan of Treatment Upcoming Encounters Date Type Department Care Team (Late st Contact Info) Description 02/26/2024 10:00 AM EST Hospital Encounter Non-Invasive [place] [address] Arrived documented as of this encounter Visit Diagnoses Not on filedocumented in this encounter Care Teams Vocational Counselor Relationship Specialty Start Date End Date Carlos Valdez MD [address] [facility] [address] [place] [address] PCP - General 03/25/11 08/07/22 documented as of this encounter
--- OUTSIDE RECORDS SUMMARY | 2023-12-11 18:49 | XMS_ITS | Encounter Summary ---
[place] [address] Care Team Providers Care Special Education Coordinator Name Role Phone Charli Jaramillo MD Primary Care Provider [phone] Reason for Visit * Reason Comments Bradycardia pacemaker interrogat ion Encounter Details Date Type Department Care Team (Late st Contact Info) Description 06/26/2012 7:45 AM EDT Follow-Up Cardiology at [address] [address] Ciaran Medel, RN Complete heart block (Primary Dx) Social [...] Time Taken Comments Blood Pressure 116/84 06/26/2012 7:42 AM EDT Pulse 80 06/26/2012 7:42 AM EDT Temperature - - Respiratory Rate 16 06/26/2012 7:42 AM EDT Oxygen Saturation 96% 06/26/2012 7:42 AM EDT Inhaled Oxygen Concentration - - Weight 105.2 kg (232 lb) 06/26/2012 7:42 AM EDT Height 198.1 cm (6' 6) 06/26/2012 7:42 AM EDT Body Mass Index 26.81 06/26/2012 7:42 AM EDT documented in this encounter Progress Notes * Ciaran Medel, RN - 06/26/2012 7:42 AM EDT Pacemaker Clinic Follow-Up Jimmie Mccauley is a 67 y.o. male who presents today in the device clinic to establish device care. He is also being seen by the Heart Failure Service The device was implanted 06/14/2012 for CHB. This was done at [facility] in [place], [place]. Costume Shop Manager: Brady Ugarte MD PCP: CHARLI JARAMILLO MD Device: Medtronic Adapta [id number], Serial # [id number] Implant date: 06/14/2012 Atrial lead: Medtronic 5568-53, Serial # [id number] Ventricular lead: Medtronic 5076-58, Serial # [id number] Settings: DDDR 60/130/130, PAV 150 ms, ROSAURA 120 ms, mode switch 175 bpm Underlying rhythm: SR 68 bpm with CHB Heart rate histograms: Good distribution Atrial lead impedance: 692 ohms Ventricular lead impedance: 594 ohms Lead impedance trends stable P wave: 1.4 to 2.0 mV R wave: None Atrial capture threshold: 2.25 V @ 0.4 ms by ACM. Manual testing yielded 2 V at 0.4 ms Ventricular capture threshold: 0.5 V at 0.4 ms by VCM. Manual was < or = to 0.75 V at 0.4 ms Pacing percentages: AP 33%; FARMER CASH GRAIN 100% Mode switch episodes: 24 for 4% since 06/14/2012. EGMs and atrial rates suggest acute atrial fibrillation after implant, longest single event being 5 hours. All episodes occurred 06/15/2012. Battery voltage: 2.79 V Chest x-ray: NA Comments: Wound assessment: Residual ecchymosis and swelling seen L chest site. No acute s/sx of infection I have reviewed the programming printouts. Impression: Acceptable device performance. Elevated atrial pacing threshold. Acute a-fib shortly after implant, now resolved. Plan: Care Link monitor ordered today. Patient to call when he receives the monitor by mail. Returnto device clinic after 09/13/2012 for 91 day check A&V Lead Monitors set to Adaptive, <200 ohms or >2,000 ohms. Stored EGM config reprogrammed from Summed to Atrial to better discern atrial arrhythmia should it recur. Tino Banuelos MD documented in this encounter Plan of Treatment Upcoming Encounters Date Type Department Care Team (Late st Contact Info) Description 02/26/2024 10:00 AM EST Hospital Encounter Non-[place] [address] Arrived documented as of this encounter Visit Diagnoses Diagnosis Complete heart block- Primary Atrioventricular block, complete documented in this encounter Care Teams Special Education Coordinator Relationship Specialty Start Date End Date Charli Jaramillo MD [address] [place] [address] PCP - General 03/25/11 08/07/22 documented as of this encounter
--- OUTSIDE RECORDS SUMMARY | 2023-12-11 18:49 | XMS_ITS | Encounter Summary ---
[place] [address] Care Team Providers Care Finance Clerk Name Role Phone Carlos Valdez MD Primary Care Provider [phone] Reason for Visit * Reason Onset Date Comments Follow-up 01/25/2012 blood pressure Encounter Details Date Type Department Care Team (Late st Contact Info) Description 01/25/2012 Telephone Cardiology at [address] [phone] Oriana Rush, RN Follow-up (blood pressure) Social History Tobacco Use Types Packs/Day Years Used Date Smoking Tobacco: Former Cigarettes Q uit: 01/12/1996 Smokeless Tobacco: Never Comments:stopped 15 years Sex and Gender Information Value Date Recorded Sex Assigned at Not on file Gender Identity Not on file Sexual Orientation Not on file documented as of this encounter Miscellaneous Notes * Telephone Encounter - Oriana Rush, RN - 01/25/2012 9:18 AM EST O: B/P running 122/60's if sits for 5 minutes prior to taking it, otherwise highest 148/60's. He has had significantly decreased knee pain off of Lipitor and noted a week post discontinuation that his perpetual runny nose was gone, I looked it up and that had been a side effect I wasn't aware of. He also reports he has required no use of Ibuprofen and is sleeping better. A: Patient reports his B/P range has been stable. P:1.) He will continue to moniitor B/P and call if any changes. 2.) PCP appt. 02/02/12 and he will review Lipitor. documented in this encounter Plan of Treatment Upcoming Encounters Date Type Department Care Team (Late st Contact Info) Description 02/26/2024 10:00 AM EST Hospital Encounter Non-[place] [phone] Arrived documented as of this encounter Visit Diagnoses Not on filedocumented in this encounter Care Teams Finance Clerk Relationship Specialty Start Date End Date Carlos Valdez MD [address] [place] [address] PCP - General 03/25/11 08/07/22 documented as of this encounter
--- OUTSIDE RECORDS SUMMARY | 2023-12-11 18:49 | XMS_ITS | Encounter Summary ---
[place] [address] Care Team Providers Care Development Team Lead Name Role Phone Carlos Valdez MD Primary Care Provider [phone] Encounter Details Date Type Department Care Team (Latest Contact Info) Description 08/10/2012 Anti-Coag Telephone Visit Cardiology at [address] [phone] Kavya Song, RN Pulmonary embolism [...] Progress Notes * Kavya Song, RN - 08/10/2012 3:19 PM EDT Anticoagulation Therapy Telephone Note: Indication: PE Anticipated End Date: on going Therapeutic Range:: 2.0-3.0 INR:2.2 Drawn by: YARI Monitored By:cardio/Dr. Ugarte Next INR Due: 08/14 Stop Lovenox Warfarin dose : Increased Decreased x Maintained [...] [facility] Encounter [place] [phone] Arrived documented as of this encounter Procedures Procedure Name Priority Date/Time Associated Diagnosis Comments EXTERNAL LAB RESULTS Routine 08/10/2012 documented in this encounter Results * (ABNORMAL) External Lab Results (08/10/2012) INR, POC 2.2([facility]) 0.9 - 1.1 Comment:[facility] 08/10/2012 Historical Provider CHEMISTRY ORDERAB LES documented in this encounter Visit Diagnoses Diagnosis Pulmonary embolism- Primary Other pulmonary embolism and infarction documented in this encounter Care Teams Development Team Lead Relationship Specialty Start Date End Date Carlos Valdez MD [address] [place] [address] PCP - General 03/25/11 08/07/22 documented as of this encounter
--- OUTSIDE RECORDS SUMMARY | 2023-12-11 18:49 | XMS_ITS | Encounter Summary ---
[place] [address] Care Team Providers Care Signals Analyst Name Role Phone Carlos Valdez MD Primary Care Provider [phone] Reason for Visit * Reason Onset Date Comments Follow-up 08/03/2012 chest discomfort Encounter Details Date Type Department Care Team (Late st Contact Info) Description 08/03/2012 Telephone [place] [phone] Oriana Rush, RN Follow-up ( chest discomfort) Social History Tobacco Use Types Packs/Day Years Used Date Smoking Tobacco: Former Cigarettes Q uit: 01/12/1996 Smokeless Tobacco: Never Comments:stopped 15 years Sex and Gender Information Value Date Recorded Sex Assigned at Not on file Gender Identity Not on file Sexual Orientation Not on file documented as of this encounter Miscellaneous Notes * Telephone Encounter - Oriana Rush, RN - 08/03/2012 10:39 AM EDT O: Patient calling to report he is doing well with Lovenox injections,felt well yesterday but terrible today, I have pain across my chest and both shoulders and this is the worst it has been, no fever, slight sweaty sometimes, still hurts to take a deep breath but I am not short of breath. VS 98.,137/75, 78, denies edema or abdominal distention. Discussed with Dr. Ugarte, see plan below. A: Unclear etiology of reported symptoms. P: If not improving or worsening report to ED for evaluation, patient is in agreement with this plan. He reports he will be staying at girlfriend's home which is closer to local hospital. documented in this encounter Plan of Treatment Upcoming Encounters Date Type Department Care Team (Late st Contact Info) Description 02/26/2024 10:00 AM [facility] Hospital Encounter Non-[place] [phone] Arrived documented as of this encounter Visit Diagnoses Not on filedocumented in this encounter Care Teams Signals Analyst Relationship Specialty Start Date End Date Carlos Valdez MD [address] [place] [address] PCP - General 03/25/11 08/07/22 documented as of this encounter
--- OUTSIDE RECORDS SUMMARY | 2023-12-11 18:49 | XMS_ITS | Encounter Summary ---
[place] [address] Care Team Providers Care Leather Softener Name Role Phone Carlos Valdez MD Primary Care Provider [phone] Reason for Visit * Reason Onset Date Comments Medication Refill 07/12/2011 Encounter Details Date Type Department Care Team (Late st Contact Info) Description 07/12/2011 Refill Cardiology at [address] [phone] Mary Perez, SONIA [address] [place] [address] Medication Refill Social History Tobacco Use Types [...] AM EST Hospital Encounter Non[place] [phone] Arrived documented as of this encounter Visit Diagnoses Diagnosis Other and unspecified hyperlipidemia documented in this encounter Care Teams Leather Softener Relationship Specialty Start Date End Date Carlos Valdez MD [address] [place] [id number] PCP - General 03/25/11 08/07/22 documented as of this encounter
--- OUTSIDE RECORDS SUMMARY | 2023-12-11 18:49 | XMS_ITS | Encounter Summary ---
Author Organization [facility] Address [facility] [place] [address] Care Team Providers Care Mobility Developer Name Role Phone Carlos Valdez MD Primary Care Provider [phone] Reason for Referral * Consultation (Routine) - Closed Specialty Diagnoses / Procedures Referred By Theodora de la torre Referred To Contact Cardiology Diagnoses Pulmonary embolism [facility] [address] [place] [phone] Brady Ugarte MD [facility] [place] [address] Referral ID Status Reason Start Date Expiration Date V isits Requested Visits Authorized [id number] Closed Assume Subset of Care 08/01/2012 01/28/2013 1 1 Encounter Details Date Type Department Care Team (Latest Contact Info) Description 08/01/2012 Anti-Coag Telephone Visit Cardiology at [address] [phone] Charlotte Dasilva RN Pulmonary embolism (Primary Dx) [...] Progress Notes * Charlotte Dasilva RN - 08/01/2012 4:26 PM EDT Pt teaching done on coumadin and lovenox bridging. Baseline INR drawn today at 1.0. Pt advised to take 5 mg QD and check blood test on Monday. Pt advised to contact coumadin clinic with any questionsabout lovenox or coumadin. documented in this encounter Plan of Treatment Upcoming Encounters Date Type Department Care Team (Late st Contact Info) Description 02/26/2024 10:00 AM EST Hospital Encounter Non-[place] [address] Arrived Scheduled Referrals Name Type Priority Associated Diagnoses Order Schedule Referral for Anticoagulation Monitoring Outpatient Referral Routine Pulmonary embolism Ordered: 08/01/2012 documented as of this encounter Visit Diagnoses Diagnosis Pulmonary embolism- Primary Other pulmonary embolism and infarction documented in this encounter Care Teams Mobility Developer Relationship Specialty Start Date End Date Carlos Valdez MD [address] [place] [address] PCP - General 03/25/11 08/07/22 documented as of this encounter
--- OUTSIDE RECORDS SUMMARY | 2023-12-11 18:49 | XMS_ITS | Encounter Summary ---
[place] [address] Care Team Providers Care Stockroom Attendant Name Role Phone Charli Jaramillo MD Primary Care Provider [phone] Encounter Details Date Type Department Care Team (Late st Contact Info) Description 01/11/2012 1:20 PM EDT Follow-Up Cardiology at [address] [address] Karo Valentine, PATTERN HANGER [address] [place] [address] Other primary cardiomyopathies; Chronic systolic heart failure Discharge Disposition: Home Social History Tobacco [...] Sign Reading Time Taken Comments Blood Pressure 142/78 01/11/2012 1:14 PM EDT Pulse 60 01/11/2012 1:14 PM EDT Temperature - - Respiratory Rate - - Oxygen Saturation 97% 01/11/2012 1:14 PM EDT Inhaled Oxygen Concentration - - Weight 107.5 kg (237 lb) 01/11/2012 1:14 PM EDT Height 198.1 cm (6' 6) 01/11/2012 1:14 PM EDT Body Mass Index 27.39 01/11/2012 1:14 PM EDT documented in this encounter Progress Notes * Karo Valentine, PATTERN HANGER - 01/11/2012 1:37 PM EDT HEART FAILURE CLINIC NOTE Jimmie Mccauley [id number] : 1945 Age: 66 y.o. PCP: CHARLI JARAMILLO MD Today's date: 01/11/2012 Jimmie Mccauley is here for followup with the Heart Failure Team. He continues to do well with respect to his cardiomyopathy, with no acute decompensated events. 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 He denies any heart failure symptoms. He can exercise without difficulty-he gets SOB going up the hill by his house, but says everyone does. He has his dog, named ZaneGrass No lightheaded or dizzy episodes. No PND or orthopnea. No chest pain, tightness or palpitations. No cough. Appetite is healthy. No LE edema. He has not been checking his BP regularly this last year.. Continues with 1 drink /day. He has been usingabout 3 ibuprofen a day for nocturnal knee pain. No ED visits or hospitalization. Review of Systems otherwise negative Past Medical History: Patient Active Problem List Diagnoses ??? CIS - Dilated cardiomyopathy -- non-ischemic ??? CIS - Left bundle branch block No past medical history on file. Heart Failure Management: Yes/No No?/Discontinued/Why Beta makeda Yes ROSY/ARB Yes Spironolactone no AFIB? no Anticoagulated AICD/Type NA Ef >40% Medications Outpatient prescriptions marked as taking for the 01/11/12 encounter (Follow-Up) with KARO VALENTINE Medication Sig Dispense Refill ??? DISCONTD: atorvastatin (LIPITOR) 10 mg tablet Take 1 tablet by mouth daily. 90 tablet 3 ??? aspirin 325 mg EC tablet Take 325 mg by mouth daily. ??? sildenafil (VIAGRA) 100 mg tablet Take 1 tablet by mouth once as needed. 10 tablet 0 ??? zolpidem (AMBIEN) 10 mg tablet Take 1 tablet by mouth nightly. 30 tablet 0 ??? DISCONTD: losartan (COZAAR) 100 mg tablet Take 1 tablet by mouth daily. 90 tablet 3 ??? DISCONTD: Carvedilol Phosphate (COREG CR) 40 mg CM24 Take 40 mg by mouth daily. 90 mg 3 Allergies Allergies as of 01/11/2012 ??? (No Known Allergies) INTERIM SOCIAL HISTORY Changes in job, home situation, tobacco or alcohol use: None CHANGES IN RELEVANT FAMILY HISTORY: None Physical Exam Filed Vitals: 01/11/12 1314 BP: 142/78 Rechecked at 138/90 Pulse: 60 Height: 198.1 cm (6' 6) Weight: 107.502 kg (237 lb) SpO2: 97% GENERAL: Looks well, in no acute distress- tall HEENT/Neck: Nonicteric sclerae; no pre/post cervical adenopathy; no enlarged Thyroid- small oropharynx CARDIAC: Regular rhythm; I cannot hear a murmer JVP ~5-6 LUNGS: Clear to auscultation. ABDOMEN: Soft and non-tender without hepatosplenomegaly or masses. EXTREM: No cyanosis, clubbing. Edema:none Warm Pulses: present SKIN: No bruises or petechiae. No rashes. NEURO: Alert and oriented to person, place and time. Nonfocal exam MUS/SKEL: No spinal or chest wall tenderness. : No CVA tenderness PSYCH: Normal affect, in good spirits Laboratory: Recent Results (from the past 24 hour(s)) CBC (WITH DIFF) Component Value Range ??? WBC 8.6 4.0 - 10.0 (x10(3)/mcL) ??? RBC 5.41 4.63 - 6.08 (x10(6)/mcL) ??? Hemoglobin 16.4 13.7 - 17.5 (gm/dL) ??? Hematocrit 47.2 40.0 - 51.0 (%) ??? MCV 87.2 79.0 - 92.0 (fL) ??? MCH 30.3 25.6 - 32.2 (pg) ??? MCHC 34.7 32.0 - 36.5 (gm/dL) ??? Platelets 179 145 - 370 (x10(3)/mcL) ??? RDWSD 39.8 35.0 - 46.0 (fL) ??? RDWCV 12.5 10.9 - 14.4 (%) ??? MPV 10.6 9.0 - 12.0 (fL) PRO-BRAIN NATRIURETIC PEPTIDE Component Value Range ? ? ProBNP 240 (*) <=125 (pg/mL) COMPREHENSIVE METABOLIC PANEL (NON-FASTING) Component Value Range ??? Glucose Lvl 98 60 - 199 (mg/dL) ??? BUN 19 10 - 20 (mg/dL) ??? Creatinine 1.00 0.80 - 1.50 (mg/dL) ??? Sodium 138 135 - 145 (mmol/L) ??? Potassium 4.6 3.5 - 5.0 (mmol/L) ??? Chloride 102 98 - 107 (mmol/L) ??? CO2 29 22 - 31 (mmol/L) ??? Anion Gap 7 5 - 15 (mmol/L) ??? Calcium 9.9 8.5 - 10.5 (mg/dL) ??? Total Protein 6.9 6.4 - 8.3 (gm/dL) ??? Albumin 4.3 3.2 - 5.2 (gm/dL) ??? AST 15 0 - 39 (unit/L) ??? ALT 17 0 - 55 (unit/L) ??? Alk Phos 49 40 - 120 (unit/L) ??? Total Bilirubin 1.3 0.2 - 1.3 (mg/dL) ??? Bili, Direct 0.2 0.0 - 0.3 (mg/dL) ? ? Estimated GFR >60 >=60 DIFFERENTIAL, AUTOMATED Component Value Range ??? Neutrophils % 59.1 34.0 - 71.0 (%) ??? Neutr Abs (ANC) 5.11 1.50 - 6.30 (x10(3)/mcL) ??? Lymphocytes % 30.7 19.0 - 53.0 (%) ??? Lymphocytes Abs 2.6 1.0 - 3.6 (x10(3)/mcL) ??? Monocytes % 7.5 4.0 - 13.0 (%) ??? Monocyte Abs 0.6 0.2 - 1.0 (x10(3)/mcL) ??? Eosinophils % 1.9 0.0 - 7.0 (%) ??? Eosinophils Abs 0.2 0.0 - 0.5 (x10(3)/mcL) ??? Basophils % 0.6 0.0 - 2.0 (%) ??? Basophils Abs 0.0 0.0 - 0.2 (x10(3)/mcL) ??? Immature Gran % 0.20 0.00 - 0.66 (%) ??? Elva Gran Abs 0.02 0.00 - 0.05 (x10(3)/mcL) Cardiology Studies Reviewed: echo from today: 01/11/12 HR BP 122/71 SUMMARY: 1. The left [...] significant change compared to the 01/11/2011 TTE. Impression: Hx nonischemic cardiomyopathy. EF now ~50% No evidence of decomensated HF, currently on beta makeda, ARB HAH/ACC StageC/NYHA CL I Health maintenance per PCP- Hx hypertension- sl higher than we would like- asked him to recheck his BP at home several times- we will call him in 2 weeks to check Knee pain at night-using ibuprofen Plan: 1. A review of the active diagnoses and management plan was conducted with the patient 2. Education/Counseling performed: Question were answered regarding: -- reviewed clinical cardiac course, heart failure signs and symptoms; current medications; importance of daily weight monitoring, parameters reviewed for when to call HF clinic; dietary sodium intake, activity/exercise and limitations -- reviewed echo and lab results with patient -- rationale for current medications and potential side effect reviewed -- Immunizations,other recommendations etc:flu shot suggested --We discussed the possibility of a bit more weight loss; increased exercise. Would like to see hissystolic pressure <120 if possible 3. Medication changes: --None at this visit 4. The following labs, referrals or other testing advised: --Urged him to get a colonoscopy, as he hasn't done this before. We will arrange for him (since he is agreeing) 5. Cardiology follow up scheduled for: -- HF clinic in 1 year with echo -- HFCCM : prn Plan: 1. A review of the active diagnoses and management plan was conducted with the patient/family, all questions addressed. 2. Education/Counseling performed: Question were answered regarding: -- reviewed clinical cardiac course, heart failure signs and symptoms; current medications; importance of daily weight monitoring, parameters reviewed for when to call HF clinic; dietary sodium intake, activity/exercise and limitations -- reviewed echo and lab results with patient -- rationale for current medications and potential side effect reviewed --Other recommendations etc: 3. Medication changes: -- He will hold his lipitor for a week to see if his knee pain is improved 4. The following labs, referrals or other testing advised: --He will check his BP at home a few times- 5. Cardiology follow up scheduled for: -- HF clinic in [address] Ugarte -- HFCCM : 2 weeks to check on BP documented in this encounter Plan of Treatment Upcoming Encounters Date Type Department Care Team (Late st Contact Info) Description 02/26/2024 10:00 AM EST Hospital Encounter Non[place] [address] Arrived documented as of this encounter Procedures Procedure Name Priority Date/Time Associated Diagnosis Comments DIFFERENTIAL, AUTOMATED STAT 01/11/2012 11:01 AM EDT CBC (WITH DIFF) STAT 01/11/2012 11:01 AM EDT Other primary cardiomyopathies Chronic systolic heart failure PRO-BRAIN NATRIURETIC PEPTIDE STAT 01/11/2012 11:01 AM EDT Other primary cardiomyopathies Chronic systolic heart failure LIPID PANEL (REFLEX DIRECT LDL) STAT 01/11/2012 11:01 AM EDT COMPREHENSIVE METABOLIC PANEL STAT 01/11/2012 11:01 AM EDT Other primary cardiomyopathies Chronic systolic heart failure documented in this encounter Results * (ABNORMAL) LIPID PANEL (FASTING) (01/11/2012 11:01 AM EDT) [facility] Signature Cholesterol, Total 179 <=199 mg/dL CERNER MILLENNIUM Comment: Recommendations of the NCEP Adult Treatment Panel for the following risk cutoff thresholds for the [place] population: Desirable: <200 mg/dL Borderline High: 200-239 mg/dL High: > or = 240 mg/dL Triglyceride 131 <=149 mg/dL CERNER MILLENNIUM Comment: Reference Range: Normal triglycerides: ??<150 mg/dL Borderline high: ??150-199 mg/dL High: ??200-499 mg/dL Very high: ??>ml=705 mg/dL DEBBIE 2001; 285(19):5971-8657 HDL Cholesterol 52 >=40 mg/dL CER NER MILLENNIUM Comment: Reference range: ??Low HDL: ?? < 40 mg/dL ??Normal: ?40-60 mg/dL ??Desirable: > 60 mg/dL DEBBIE 2001; 285(19):1433-3573 LDL Cholesterol 101(H) <=99 mg/dL CER NER MILLENNIUM Comment: Reference range: ?? Optimal: ?<100 mg/dL ?? Near Optimal/Above Optimal: ?? 100-129 mg/dL ?? Borderline high: ?130-159 mg/dL ?? High: ? 160-189 mg/dL ?? Very high: ?>oh=705 mg/dL DEBBIE 2001: 285(19):6661-2539 Cholesterol/HDL Ratio 3.4 ratio CERNER MILLENNIUM Comment: A Cholesterol to HDL ratio below 4:1 is desirable. ??Studies suggest that increased CAD risk occurs at ratios above 5 for females and above 6 for men. ? [place] Heart Association ??(http://www.americanheart.org) ? Mary Ellen Int Med, 1994; 121:641 ? AM J Med, 1998; 105(1A):48S Blood specimen (specimen) 01/11/2012 11:01 AM EDT 01/11/2012 11:16 AM EDT Narrative Resulting Agency Comment Spec In Lab Brady Ugarte MD CHEMISTRY ORDERABLES CERNER MILLENNIUM * DIFFERENTIAL, AUTOMATED (01/11/2012 11:01 AM EDT) Neutrophil % 59.1 34.0 - 71.0 % CERNER MILLENNIUM Neutrophil Absolute 5.11 1.50 - 6.30 x10(3)/mcL CERNER MILLENNIUM Lymph % 30.7 19.0 - 53.0 % CERNER MILLENNIUM Lymphocytes Abs 2.6 1.0 - 3.6 x10(3)/mcL CERNER MILLENNIUM Monocyte % 7.5 4.0 - 13.0 % CERNER MILLENNIUM Monocyte Abs 0.6 0.2 - 1.0 x10(3)/mcL CERNER MILLENNIUM Eos % 1.9 0.0 - 7.0 % CERNER MILLENNIUM Eosinophils [...] 0.05 x10(3)/mcL CERNER MILLENNIUM Blood specimen (specimen) 01/11/2012 11:01 AM EDT 01/11/2012 11:10 AM EDT Brady Ugarte MD HEMATOLOGY ORDERABLE S CERNER MILLENNIUM * Comprehensive metabolic panel (non-fasting) (01/11/2012 11:01 AM EDT) Glucose 98 60 - 199 mg/dL CERNER MILLENNIUM Comment:Diabetes: >=200 mg/d L plus symptoms Blood Urea Nitrogen 19 10 - 20 mg/dL CERNER MILLENNIUM Creatinine 1.00 0.80 - 1.50 mg/dL CERNER MILLENNIUM Comment: Please note that the pediatric reference intervals supplied above were not validated at [facility]. Results from pediatric patients should be interpreted in conjunction to the patient's age, height and muscle mass. Sodium 138 135 - 145 mmol/L CERNER MILLENNIUM Potassium 4.6 3.5 - 5.0 mmol/L CERNER MILLENNIUM Comment: [...] - 31 mmol/L CERNER MILLENNIUM Anion Gap 7 5 - 15 mmol/L CERNER MILLENNIUM Calcium 9.9 8.5 - 10.5 mg/dL CERNER MILLENNIUM Protein, Total 6.9 6.4 - 8.3 gm/dL CERNER MILLENNIUM Albumin 4.3 3.2 - 5.2 gm/dL CERNER MILLENNIUM Aspartate Aminotransferase 15 0 - 39 unit/L CERNER MILLENNIUM Alanine Aminotransferase 17 0 - 55 unit/L CERNER MILLENNIUM Alkaline [...] J Am Soc Nephrol;6:1963-72. Blood specimen (specimen) 01/11/2012 11:01 AM EDT 01/11/2012 11:10 AM EDT Narrative Resulting Agency Comment Spec In Lab Brady Ugarte MD CHEMISTRY ORDERABLES NELSON ONEILL * (ABNORMAL) pro-Brain Natriuretic Peptide (01/11/2012 11:01 AM EDT) NT-proBNP 240(H) <=125 pg/mL CERNER MILLENNIUM Blood specimen (specimen) 01/11/2012 11:01 AM EDT 01/11/2012 11:10 AM EDT Narrative Resulting Agency Comment Spec In Lab Brady Ugarte MD CHEMISTRY ORDERABLES NELSON ONEILL * CBC (with Diff) (01/11/2012 11:01 AM EDT) White Blood Cell 8.6 4.0 - 10.0 x10(3)/mcL CERNER MILLENNIUM Red Blood Cell 5.41 4.63 - 6.08 x10(6)/mcL CERNER MILLENNIUM Hemoglobin 16.4 13.7 - 17.5 gm/dL CERNER MILLENNIUM Hematocrit 47.2 40.0 - 51.0 % CERNER MILLENNIUM Mean Cell Volume 87.2 79.0 - 92.0 fL CERNER MILLENNIUM Mean Cell Hemoglobin 30.3 25.6 - 32.2 pg CERNER MILLENNIUM Mean Cell Hemoglobin Concentration 34.7 32.0 - 36.5 gm/dL CERNER MILLENNIUM Platelet 179 145 - 370 x10(3)/mcL CERNER MILLENNIUM RDW Standard Deviation 39.8 35.0 - 46.0 fL CERNER MILLENNIUM RDW coefficient of variation 12.5 10.9 - 14.4 % CERNER MILLENNIUM Mean Platelet Volume 10.6 9.0 - 12.0 fL CERNER MILLENNIUM Blood specimen (specimen) 01/11/2012 11:01 AM EDT 01/11/2012 11:10 AM EDT Narrative Resulting Agency Comment Spec In Lab Brady Ugarte MD HEMATOLOGY ORDERABLE S NELSON ONEILL documented in this encounter Visit Diagnoses Diagnosis Other primary cardiomyopathies Chronic systolic heart failure documented in this encounter Care Teams Stockroom Attendant Relationship Specialty Start Date End Date Charli Jaramillo MD [address] [place] [address] PCP - General 03/25/11 08/07/22 documented as of this encounter
--- OUTSIDE RECORDS SUMMARY | 2023-12-11 18:49 | XMS_ITS | Encounter Summary ---
Author Organization [facility] Address [facility] [place] [address] Care Team Providers Care Sand Mixer Name Role Phone Carlos Valdez MD Primary Care Provider [phone] Encounter Details Date Type Department Care Team (Latest Contact Info) Description 08/17/2012 8:55 AM EDT - 08/17/2012 11:59 PM EDT Hospital Encounter Non-Invasive [place] [address] CARDIO, ECHO SIXTY MIN APPT None Brady Ugarte MD [facility] [address] [place] [address] Shortness of breath; Chest pain Discharge Disposition: Home Social History Tobacco [...] 02/19/2013 Carvedilol Phosphate (COREG CR) 40 mg [id number]:Chronic systolic heart failure Take 40 mg by mouth daily. 30 capsule 5 06/26/2012 02/01/2013 documented as of this encounter Plan of Treatment Upcoming Encounters Date Type Department Care Team (Late st Contact Info) Description 02/26/2024 10:00 AM EST Hospital Encounter Non-Invasive [place] [phone] Arrived documented as of this encounter Procedures Procedure Name Priority Date/Time Associated Diagnosis Comments ECHOCARDIOGRAM TRANSTHORACIC Routine 08/17/2012 10:15 AM EDT Shortness of breath Chest pain documented in this encounter Results * Echo Transthoracic (Complete) (08/17/2012 10:15 AM EDT) EF 34 HEARTLAB SYSTEM Anatomical Region Laterality Modality Other 08/17/2012 Narrative 08/17/2012 10:26 AM EDT Procedure: ? Transthoracic Echocardiogram Patient: ? SADIEKIMBERLY JATINDER J ?(Age): 1945(67) Med Rec#: ?[id number] ? Sex: ?M ? Site Loc: ?[facility] ? Ht / Wt: ??200(cm)/104(kg) Pt. Loc: ? Echo Lab ? BSA: ?2.4 Study Date: ?08/17/2012 ? Pt. Type: Outpatient Tape: ? Referring: Brady Ugarte ([id number]) Auditor Medical Claims: Malcolm Cooper Diagnosis:CPT Code(s): ??Color Doppler (48597), ??Echo [employer] (14053), Doppler LTD (78561), Indication(s): ??Dizziness Rhythm: Paced rhythm HR ?BP [...] ? Mid-Inferior ?Akinetic ? Mid-Inferoseptal ?Akinetic ? [place]-Septal ? Akinetic ? [place]-Anterior ? Akinetic ? [place]-Lateral ?Hypokinetic ? [place]-Inferior ? Akinetic ? [place]-Tip ?Akinetic ? Chambers ?Value ?Units (Range) ? [...] 08/17/2012 10:25:41 Images reviewed and interpretation verified [facility] Cardiac Ultrasound Laboratory Procedure Note Carter Guzmán MD - 08/17/2012 Procedure: Transthoracic Echocardiogram Patient: PORSCHE ROBERTS(Age): 1945(67) Med Rec#: [id number] Sex: M Site Loc: [facility] Ht / Wt: 200(cm)/104(kg) Pt. Loc: Echo Lab BSA: 2.4 Study Date: 08/17/2012 Pt. Type: Outpatient Tape: Referring: Brady Ugarte ([id number]) Auditor Medical Claims: Malcolm Cooper Diagnosis:CPT Code(s): Color Doppler (36362), Echo LTD (59806), Doppler LTD (55828), Indication(s): Dizziness Rhythm: Paced rhythm HR BP [...] Hypokinetic Mid-Posterolateral Hypokinetic Mid-Inferior Akinetic Mid-Inferoseptal Akinetic [place]-Septal Akinetic [place]-Anterior Akinetic [place]-Lateral Hypokinetic [place]-Inferior Akinetic [place]-Tip Akinetic Chambers Value Units (Range) 3D LVEF 34 % IVSd 2D 1.3 cm LVIDd 2D 5.8 cm PWd 2D 1.2 cm LVIDs 2D 4.8 cm LVFS 2D 17 % Mitral Valve Value Units (Range) E peak 0.95 m/sec E1 0.12 m/sec E/E1 8 ratio This report has been electronically signed by: Carter Guzmán M.D. 08/17/2012 10:25:41 Images reviewed and interpretation verified [facility] Cardiac Ultrasound Laboratory Brady Ugarte MD ECHO ORDERABLES documented in this encounter Visit Diagnoses Diagnosis Shortness of breath Chest pain Chest pain, unspecified documented in this encounter Care Teams Sand Mixer Relationship Specialty Start Date End Date Carlos Valdez MD [address] [place] [address] PCP - General 03/25/11 08/07/22 documented as of this encounter
--- OUTSIDE RECORDS SUMMARY | 2023-12-11 18:49 | XMS_ITS | Encounter Summary ---
[place] [address] Care Team Providers Care Quantitative Developer Name Role Phone Carlos Valdez MD Primary Care Provider [phone] Encounter Details Date Type Department Care Team (Latest Contact Info) Description 08/20/2012 Anti-Coag Telephone Visit Cardiology at [address] [phone] Yasmin Garland, RN Pulmonary embolism (Primary Dx) [...] Progress Notes * Yasmin Garland RN - 08/20/2012 9:04 AM EDT Anticoagulation Therapy Telephone Note: Indication: PE Anticipated End Date: ongoing Therapeutic Range:: 2-3 INR:2.6 Drawn by: [facility] Monitored By:Cardio/Kono Next INR Due: One week Warfarin dose : Increased Decreased x Maintained Comment:continue 5 mg daily Falls Risk Assessment: Have you had any [...] [facility] Hospital Encounter Non-Invasive [place] [address] Arrived documented as of this encounter Visit Diagnoses Diagnosis Pulmonary embolism- Primary Other pulmonary embolism and infarction documented in this encounter Care Teams Quantitative Developer Relationship Specialty Start Date End Date Carlos Valdez MD [address] [place] [address] PCP - General 03/25/11 08/07/22 documented as of this encounter
--- OUTSIDE RECORDS SUMMARY | 2023-12-11 18:49 | XMS_ITS | Encounter Summary ---
Author Organization Formerly [facility] [place] [place] [address] Care Team Providers Care Air Dispatcher Name Role Phone Carlos Valdez MD Primary Care Provider [phone] Encounter Details Date Type Department Care Team (Late st Contact Info) Description 06/14/2012 Orders Only Cardiology at [address] [phone] Brady Ugarte MD [facility] [place] [address] Social History Tobacco Use Types Packs/Day Years [...] AM EST Hospital Encounter Non-[place] [phone] Arrived documented as of this encounter Procedures Procedure Name Priority Date/Time Associated Diagnosis Comments FILM LIBRARY STORAGE ONLY DX CHEST Routine 06/14/2012 1:31 PM EDT documented in this encounter Results * Film Library- Storage only DX Chest (06/14/2012 1:31 PM EDT) 06/14/2012 1:31 PM EDT Narrative RAD - 08/13/2013 1:41 PM EDT This is a non-reportable exam. Procedure Note Gabriel Cartagena - 08/13/2013 This is a non-reportable exam. Brady Ugarte MD [facility] FILM LIBRARY ORD ERABLES [facility] [address] [place] [address] documented in this encounter Visit Diagnoses Not on filedocumented in this encounter Care Teams Air Dispatcher Relationship Specialty Start Date End Date Carlos Valdez MD [address] [place] [address] PCP - General 03/25/11 08/07/22 documented as of this encounter
--- OUTSIDE RECORDS SUMMARY | 2023-12-11 18:49 | XMS_ITS | Encounter Summary ---
[place] [address] Care Team Providers Care Sewer And Cutter Finger Buff Material Name Role Phone Carlos Valdez MD Primary Care Provider [phone] Reason for Visit * Reason Onset Date Comments Follow-up 07/26/2012 plan of care dev elopment Encounter Details Date Type Department Care Team (Late st Contact Info) Description 07/26/2012 Telephone Cardiology at [address] [phone] Oriana Rush, RN Follow-up (plan of care development) Social History Tobacco Use Types Packs/Day Years Used Date Smoking Tobacco: Former Cigarettes Q uit: 01/12/1996 Smokeless Tobacco: Never Comments:stopped 15 years Sex and Gender Information Value Date Recorded Sex Assigned at Not on file Gender Identity Not on file Sexual Orientation Not on file documented as of this encounter Miscellaneous Notes * Telephone Encounter - Oriana Rush, RN - 07/26/2012 10:51 AM EDT O:Patient inquiring next steps in plan of care. He continues with intermittent symptoms of extreme fatigue, CORNEJO with inclines, chest, shoulder & L posterior shoulder blade pain (posterior pain, this is new report). He states some nights it is uncomfortable to sleep on my L side, pressure like. Weight 223 lbs, 133/82,70's. Discussed with Jose Perez APRN, see plan below. A: Ongoing intermittent symptoms of unclear etiology. P: Appt. with Dr. Ugarte on 07/22, patient in agreement with this plan. documented in this encounter Plan of Treatment Upcoming Encounters Date Type Department Care Team (Late st Contact Info) Description 02/26/2024 10:00 AM [facility] Hospital Encounter Non[place] [phone] Arrived documented as of this encounter Visit Diagnoses Not on filedocumented in this encounter Care Teams Sewer And Cutter Finger Buff Material Relationship Specialty Start Date End Date Carlos Valdez MD [address] [place] [address] PCP - General 03/25/11 08/07/22 documented as of this encounter
--- OUTSIDE RECORDS SUMMARY | 2023-12-11 18:49 | XMS_ITS | Encounter Summary ---
[place] [address] Care Team Providers Care Delivery Representative Name Role Phone Carlos Valdez MD Primary Care Provider [phone] Encounter Details Date Type Department Care Team (Latest Contact Info) Description 01/11/2012 11:37 AM EDT - 01/11/2012 11:59 PM EDT Hospital Encounter Non[place] [phone] Other primary cardiomyopathies; Chronic systolic heart failure Social History Tobacco [...] by mouth nightly. 30 tablet 0 01/11/2011 atorvastatin (LIPITOR) 10 mg tabletIndications:Other and unspecified hyperlipidemia Take 1 tablet by mouth daily. 90 tablet 3 01/11/2012 06/26/2012 Carvedilol Phosphate (COREG CR) 40 mg [id number]:Chronic systolic heart failure Take 40 mg by mouth daily. 90 mg 3 01/11/2012 06/26/2012 losartan (COZAAR) 100 mg tabletIndications:Other primary cardiomyopathies Take 1 tablet by mouth daily. 90 tablet 3 01/11/2012 06/26/2012 aspirin 325 mg EC tablet Take 325 mg by mouth daily. 08/17/2012 documented as of this encounter Plan of Treatment Upcoming Encounters Date Type Department Care Team (Braydon st Contact Info) Description 02/26/2024 10:00 AM EST Hospital Encounter Non-[place] [phone] Arrived documented as of this encounter Procedures Procedure Name Priority Date/Time Associated Diagnosis Comments ECHOCARDIOGRAM TRANSTHORACIC Routine 01/11/2012 1:03 PM EDT Other primary cardiomyopathies Chronic systolic heart failure documented in this encounter Results * Echo Transthoracic (Complete) (01/11/2012 1:03 PM EDT) EF 52 HEARTLAB SYSTEM Anatomical Region Laterality Modality Other 01/11/2012 Narrative 01/11/2012 1:59 PM EDT Procedure: ? Transthoracic Echocardiogram Patient: ? PORSCHE Mancilla ?(Age): 1945(66) Med Rec#: ?[id number] ? Sex: ?M ? [place] [place]t / Wt: ??198(cm)/103(kg) Pt. Loc: ? Echo Lab ? BSA: ?2.38 Study Date: ?01/11/2012 ? Pt. Type: Outpatient Tape: ? Referring: Brady Ugarte ([id number]) Designer And Patternmaker: Charlotte Kan Diagnosis: ??Congestive heart failure (428.0) ??Cardiomyopathy (425.4) CPT Code(s): ??Color Doppler (31205), ??Echo Full (44241), ??Spectral Doppler (19298), Indication(s): ??Congestive heart failure Rhythm: Sinus HR [...] ? Mid-Inferior ?Hypokinetic ? Mid-Inferoseptal ?Akinetic ? [place]-Septal ? Hypokinetic ? [place]-Anterior ? Hypokinetic ? [place]-Lateral ?Hypokinetic ? [place]-Inferior ? Hypokinetic ? [place]-Tip ?Hypokinetic ? Chambers ?Value ?Units (Range) ? [...] been electronically signed by: Charbel Naqvi. ? 01/11/2012 13:49:07 Images reviewed and interpretation verified [facility] Cardiac Ultrasound Laboratory Procedure Note Charbel Naqvi MD - 01/11/2012 Procedure: Transthoracic Echocardiogram Patient: PORSCHE ROBERTS(Age): 1945(66) Med Rec#: [id number] Sex: M [place] [facility] [place]t / Wt: 198(cm)/103(kg) Pt. Loc: Echo Lab BSA: 2.38 Study Date: 01/11/2012 Pt. Type: Outpatient Tape: Referring: Brady Ugarte ([id number]) Designer And Patternmaker: Charlotte Kan Diagnosis: Congestive heart failure (428.0) Cardiomyopathy (425.4) CPT Code(s): Color Doppler (35169), Echo Full (72620), Spectral Doppler (64161), Indication(s): Congestive heart failure Rhythm: Sinus HR [...] Hypokinetic Mid-Posterolateral Hypokinetic Mid-Inferior Hypokinetic Mid-Inferoseptal Akinetic [place]-Septal Hypokinetic [place]-Anterior Hypokinetic [place]-Lateral Hypokinetic [place]-Inferior Hypokinetic [place]-Tip Hypokinetic Chambers Value Units (Range) IVSd 2D [...] 01/11/2012 13:49:07 Images reviewed and interpretation verified [facility] Cardiac Ultrasound Laboratory Brady Ugarte MD ECHO ORDERABLES documented in this encounter Visit Diagnoses Diagnosis Other primary cardiomyopathies Chronic systolic heart failure documented in this encounter Care Teams Delivery Representative Relationship Specialty Start Date End Date Carlos Valdez MD [address] [place] [address] PCP - General 03/25/11 08/07/22 documented as of this encounter
--- OUTSIDE RECORDS SUMMARY | 2023-12-11 18:49 | XMS_ITS | Encounter Summary ---
Author Organization [facility] [place] [address] Care Team Providers Care Centerpuncher Name Role Phone Carlos Valdez MD Primary Care Provider [phone] Encounter Details Date Type Department Care Team (Late st Contact Info) Description 06/13/2012 Orders Only Cardiology at [address] [phone] Brady Ugarte MD [facility] [place] [address] Social History Tobacco Use Types Packs/Day Years [...] AM EST Hospital Encounter Non-[place]vasive [place] [phone] Arrived documented as of this encounter Procedures Procedure Name Priority Date/Time Associated Diagnosis Comments FILM LIBRARY STORAGE ONLY DX CHEST Routine 06/13/2012 1:31 PM EDT documented in this encounter Results * Film Library- Storage only DX Chest (06/13/2012 1:31 PM EDT) 06/13/2012 1:31 PM EDT Narrative RAD - 08/13/2013 1:41 PM EDT This is a non-reportable exam. Procedure Note Gabriel Cartagena - 08/13/2013 This is a non-reportable exam. Brady Ugarte [place] [facility] [place]D ERABLES [facility] [address] [place] [address] documented in this encounter Visit Diagnoses Not on filedocumented in this encounter Care Teams Centerpuncher Relationship Specialty Start Date End Date Carlos Valdez MD [address] [place] [address] PCP - General 03/25/11 08/07/22 documented as of this encounter
--- OUTSIDE RECORDS SUMMARY | 2023-12-11 18:49 | XMS_ITS | Encounter Summary ---
[place] [address] Care Team Providers Care Crm Technical Lead Name Role Phone Carlos Valdez MD Primary Care Provider [phone] Reason for Visit * Reason Onset Date Comments Follow-up 08/20/2012 chest discomfort Encounter Details Date Type Department Care Team (Late st Contact Info) Description 08/20/2012 [place] [phone] Oriana Rush, RN Follow-up (chest discomfort) Social History Tobacco Use Types Packs/Day Years Used Date Smoking Tobacco: Former Cigarettes Q uit: 01/12/1996 Smokeless Tobacco: Never Comments:stopped 15 years Sex and Gender Information Value Date Recorded Sex Assigned at Not on file Gender Identity Not on file Sexual Orientation Not on file documented as of this encounter Miscellaneous Notes * Telephone Encounter - Oriana Rush RN - 08/20/2012 12:50 PM EDT S: Patient reports tentatively I am feeling a bit better, three days is not the cure I am sure but no pain across shoulders,still tough to take a deep breath but even that is a little bit better. A: Current medication regimen improving chest & shoulder discomfort. P:Continue on current medication regimen and close follow up with HF clinic. documented in this encounter Plan of Treatment Upcoming Encounters Date Type Department Care Team (Late st Contact Info) Description 02/26/2024 10:00 AM EST Hospital Encounter Non-Invasive [place] [phone] Arrived documented as of this encounter Visit Diagnoses Not on filedocumented in this encounter Care Teams Crm Technical Lead Relationship Specialty Start Date End Date Carlos Valdez MD [address] [place] [address] PCP - General 03/25/11 08/07/22 documented as of this encounter
--- OUTSIDE RECORDS SUMMARY | 2023-12-11 18:49 | XMS_ITS | Encounter Summary ---
[place] [address] Care Team Providers Care Telephoner Name Role Phone Carlos Valdez MD Primary Care Provider [phone] Encounter Details Date Type Department Care Team (Latest Contact Info) Description 08/07/2012 Anti-Coag Telephone Visit Cardiology at [address] [phone] Clarice Hernandez RN Pulmonary embolism (Primary Dx) [...] Progress Notes * Clarice Fernando RN - 08/07/2012 11:36 AM EDT Anticoagulation Therapy Telephone Note: Indication: PE Anticipated End Date: Ongoing Therapeutic Range: 2.0-3.0 INR: 1.5 Drawn by: YARI Monitored By:cardio/ Dr Ugarte Next INR Due: Warfarin dose : Increased Decreased x Maintained Comment: Left message on patient's home machine with instructions and encouraged patient to call with any questions or changes. documented in this encounter Plan of Treatment Upcoming Encounters Date Type Department Care Team (Late Contact Info) Description 02/26/2024 10:00 AM EST Hospital Encounter Non-Invasive [place] [address] Arrived documented as of this encounter Procedures Procedure Name Priority Date/Time Associated Diagnosis Comments EXTERNAL LAB RESULTS Routine 08/06/2012 documented in this encounter Results * (ABNORMAL) External Lab Results (08/06/2012) International Normalization Ratio 1.5(Exter nal Lab) 0.9 - 1.1 Comment:[facility] [place] [facility] 08/06/2012 Historical Provider CHEMISTRY ORDERAB LES documented in this encounter Visit Diagnoses Diagnosis Pulmonary embolism- Primary Other pulmonary embolism and infarction documented in this encounter Care Teams Telephoner Relationship Specialty Start Date End Date Carlos Valdez MD [address] [place] [address] PCP - General 03/25/11 08/07/22 documented as of this encounter
--- OUTSIDE RECORDS SUMMARY | 2023-12-11 18:49 | XMS_ITS | Encounter Summary ---
Author Organization [facility] [place] [address] Care Team Providers Care Freezer Worker Name Role Phone Charli Jaramillo MD Primary Care Provider [phone] Reason for Visit * Reason Comments Shortness of Breath Follow-up cardiomhyopathy, CHB , s/p DDD-R pacer Encounter Details Date Type Department Care Team (Late st Contact Info) Description 08/01/2012 9:10 AM EDT Follow-Up Cardiology at [address] [address] Brady Ugarte MD [facility] [place] [address] Chest pain (Primary Dx); Complete heart block; Heart failure chronic systolic dysfunction; Non-ischemic cardiomyopathy; Pulmonary embolus; Pulmonary embolism Discharge Disposition: Home Social History [...] Sign Reading Time Taken Comments Blood Pressure 154/100 08/01/2012 9:07 AM EDT Lt arm sitting Pulse 62 08/01/2012 9:07 AM EDT Regular Temperature - - Respiratory Rate - - Oxygen Saturation 98% 08/01/2012 9:0 7 AM EDT Room air @ rest Inhaled Oxygen Concentration - - Weight 103.7 kg (228 lb 11. 2 oz) 08/01/2012 9:07 AM EDT Dressed Height 200.7 cm (6' 7) 08/01/2012 9:07 AM EDT Body Mass Index 25.76 08/01/2012 9:07 AM EDT documented in this encounter Patient Instructions * Patient Instructions* Brady Ugarte MD - 08/01/2012 10:00 AM EDT After your pacemaker implant were doing quite well. However, you did note new sweats, chest discomfort, and shortness of breath. You were noted to have a slightly elevated oh BNP, a marker for heart failure and he was started on a diuretic. A stress echocardiogram showed similar left ventricular systolic dysfunction but no evidence of fluid around the heart. You had poor exercise tolerance but noobvious ischemia. The cardiac catheterization report performed in [place] demonstrated nonobstructive blockages in your coronary arteries but it is possible that this may have progressed even in the short time from that procedure. You stated that you are still having more than one type of chest pain, of which one is associated with exertion. I would like to rule out any blood clots in the lungs with a CT pulmonary angiogram. Depending on those results, we may need to proceed with a repeat cardiac catheterization. Medication changes: None Please report for immediate medical attention if she had worsening symptoms, unstable symptoms, newchest discomfort or sudden shortness of breath, palpitations, or passing out spells. documented in this encounter Progress Notes * Joselyn Luis LPN - 08/01/2012 10:14 AM EDT Pre Cardiac Cath/PTCA Nursing Note Date of Cath:08/08/2012 Indication: CAD Date of Labs:(within 30 days) 07/10/2012 Date of EKG:_07/10/2012 Medications: Stop Metformin 48 hour prior ( ) Last dose n/a Insulin orders given Stop Coumadin days prior ( )Last dose_n/a Does patient have a contrast or shellfish allergy? _no If yes, was Prednisone RX given?__n/a Back Pain management: Understands potential for back pain.(yes ) Identifies pain management strategies. (yes ) Teach 0-10 pain intensity scale. (yes ) Education: Patient understands purpose of cardiac cath/PTCA. (yes ) Patient understands pre and post procedure care. (yes ) Patient receives SDP pre-procedure instruction card. (yes ) Comments:Spoke with Pt at appt. Also told Pt to drink extra water 08/07 & 08/08 * Brady Ugarte MD - 08/01/2012 5:34 AM EDT Images from the original note were not included. [facility] [place] [address] [address] CARDIOMYOPATHY/HEART FAILURE SERVICE OUTPATIENT CLINIC NOTE Jimmie Mccauley 08/01/2012 Primary Care Provider: CHARLI JARAMILLO MD Referring Provider: Charli Jaramillo CHIEF COMPLAINT: Chief Complaint Patient presents with ??? Shortness of Breath ??? Follow-up cardiomhyopathy, CHB, s/p DDD-R pacer HISTORY OF PRESENT ILLNESS: Jimmie Mccauley is a 67 y.o. patient seen in routine follow up in the [facility] Heart Failure Clinic, and in the interim, the patient feels better than he did when evaluated by Mary Perez APRN. New symptoms of shortness of breath, chest discomfort, dizziness, and diaphoresis 2 weeks after his device implant prompted an evaluation which included a chest x-ray showing trivial pleural effusions, patricia stress echocardiogram that showed no pericardial effusion, [...] midsternal chest discomfort noted especially with exertion, suchas walking up an incline associated with shortness [...] decrease in his appetite with mild dysgeusia. Other review of systems are negative. From his most recent HF clinic note per Mary Peerz: Mr Mccauley presents today with a 6 day hx [...] reported to a local emergency room in [place]. He was told that he had a lowheart rate in july need a pacemaker but he declined any further evaluation as he was asymptomatic. 2weeks later, while [place], the patient felt weak, tired, with dizziness [...] available for my review. Since returning to [facility], the patient actually feels well with no [...] this. There were no new medications or uftr-dox-etnzbou therapy initiated during this timeframe. On discharge, [...] ??? HX SUDDEN CARDIAC ARREST V12.53 ??? Chest pain 786.50 ??? Pulmonary embolism 415.19 ??? Pulmonary embolus 415.19 Patient Active Problem List Diagnoses ??? Chest pain New chest discomfort ~ 2 weeks post DDD pacer implant May be more than symptom complex Elevated ProBNP, some clinical response with diuretics Stress Echo, LVEF=44%, no change, no definite ischemia, poor exercise tolerance, no pericardial effusion Trivial pleural effusion on chest x-ray ??? Pulmonary embolism New clinical dyspnea, chest pain syndrome, diaphoresis 06/2012 Recent hospitalization for CHB, pacer and prolonged driving from [place] to [place] Abnormal CT pulmonary angiogram 08/01/12 Lovenox bridge -->coumadin initiated 08/01/12 ??? Pulmonary embolus ??? Non-ischemic cardiomyopathy Dilated cardiomyopathy -- non-ischemic. [...] Echo 07/10/12 EF= 44% No obvious ischemia d. Sinus rhythm with left bundle branch block, PVCs, QRS mosofpph=210 msec. Symptomatic CHB 06/13/12- s/p DDDR pacemaker [...] use ??? LBBB (left bundle branch block) NFZ=873 ms New Symptomatic CHB 05/30-->declined pacer at initial presentation while traveling -S/p temp pacer-->Permanent DDDR pacer -LVEF~ 50-55%, ICD not indicated, but at risk for V paced rhythm dyssynchrony ??? Complete heart block Symptomatic bradycardia with CHB and LBBB, HR in the 20-30s Initially seen at a local ER, pacemaker recommended, but declined While in [facility], [place], called [facility] in cath report, but likely symptomatic bradycardia and CHB CHB- s/p temporary pacer 06/13/2012 - cath: Angiogram, mild irregularities of LAD, LCXF dominant, 30-40% mid RCA - No LV gram done S/p DDD-R Pacemaker Medtronic Adapta Dual Chamber Model # [id number], Serial number [id number] -[place], [place] ??? Cardiac pacemaker Indications: Symptomatic CHB, with slow VR ~ 20-30 Current Platform: DDD-R Pacemaker Medtronic Adapta Dual Chamber Model # ADDR01, Serial number [id number] -[place], [place] ??? HX SUDDEN CARDIAC ARREST Probably [...] Outpatient Prescriptions Marked as Taking for the 08/01/12 encounter (Follow-Up) with Brady Ugarte MD Medication Sig Dispense Refill ??? Carvedilol Phosphate (COREG CR) 40 mg CM24 Take 40 mg by mouth daily. 30 capsule 5 ??? losartan (COZAAR) 100 mg tablet Take 1 tablet by mouth daily. 90 tablet 3 ??? bumetanide (BUMEX) 0.5 mg tablet Take 1 tablet by mouth daily. 30 tablet 0 ??? aspirin 325 mg EC tablet Take 325 mg by mouth daily. ??? sildenafil (VIAGRA) 100 mg tablet Take 1 tablet by mouth once as needed. 10 tablet 0 REVIEW OF SYSTEMS: Review of Systems Pertinent Negatives or Positives General Denies Fever, chills, night sweats. Weight down approximately 10 pounds. Sleep habits usually good Eyes No visual loss, double vision, drainage, eye pain, dry eyes, or other sxs reported. ENT No sore throat, dry mouth, eptistaxis or other sxs reported. Cardiac multiple chest discomfort as noted above, but denying any palpitations, recent near syncope-status post DDDR pacemaker for symptomatic bradycardia and complete heart block. Recent CORNEJO, movement of his Orthopnea, PND, LE edema Pulmonary + shortness of breath, but without cough, hemoptysis, or other sxs reported. Heme/Lymph [...] Signs: Wt Readings from Last 3 Encounters: 08/01/12 103.738 kg (228 lb 11.2 oz) 07/10/12 105.235 kg (232 lb) 06/26/12 105.235 kg (232 lb) Temp Readings from Last 3 Encounters: No data found for Temp BP Readings from Last 3 Encounters: 08/01/12 154/100 07/10/12 140/94 06/26/12 116/84 Pulse Readings from Last 3 Encounters: 08/01/12 62 07/10/12 82 06/26/12 80 SpO2: [98 %] General -Alert, oriented, NAD. [...] displaced. No RV lift. JVP~ less than 8-9 cm H20, without AJR. Abdomen -soft, non-tender, no significant organomegaly, masses or bruits Extremities -without pretibial or ankle edema, warm to feet. Pulses 1-2+ Neuro -intact CN, motor LAB STUDIES: No results found for this or any previous visit (from the past 72 hour(s)). CARDIAC STUDIES Stress Echo 07/10/12 Rhythm: Stage HR BP Rest 73 150/80 [...] systolic function is a sign of ischemia.) CXR 07/10/12 Technique PA and lateral views of the chest. Findings Left anterior chest wall pulse generator and 2 pacemaker leads, in unchanged position. The lungs appear clear and symmetrically expanded. Trace bilateral pleural Effusion is present. No change in top normal cardiac silhouette. Pulmonary vascular markings appear within normal limits. As before, left-sided rib deformities consistent with old healed fractures and mild to moderate degenerative change of the lower thoracic spine noted. Impression Trace bilateral pleural effusion. No other cardiopulmonary findings. CT Pulmonary angiogram- Findings A nonocclusive filling defect is seen at the bifurcation of multiple subsegmental arteries feeding the right lower lobe (series 5, image 310). No additional filling defects are identified within the pulmonary arterial vasculature. The central airways are patent. The bilateral lungs show trace subsegmental atelectasis at the lung bases. The lungs are otherwise clear. No pneumothorax. No pleural effusion. Pericardial effusion. Pacemaker is identified in the left chest wall. No axillary lymphadenopathy. Single prominent hilar lymph node is seen on the right. A enlarged lymph node is identified [...] additional emboli identified. 2. Small pericardial effusion. These results were discussed with Dr. Brady Ugarte at 1055 on August 01, 2012. EKG-atrial sensed NSR, ventricular paced rhythm, UYV=930 Device interrogation-reviewed personally PROBLEMS: Complete heart block S. post DDDR pacemaker, with no post-implant complications Recent chest discomfort, dyspnea, diaphoresis, with trivial pleural effusions noted on a chest x-ray Some clinical improvement with diuresis Heart failure chronic systolic dysfunction Mild decompensation post pacemaker implant, improved with diuretics-Bumex Patient with adverse reaction with Lasix-causes a rash Appears better, and euvolemic on physical exam Non-ischemic cardiomyopathy Similar left ventricular systolic dysfunction, with regional wall motion abnormality and a history of left bundle branch block. Now paced rhythm, normal pacer function Recent decompensated heart failure-post pacemaker implant Chest pain Multiple chest pain syndrome, still persistent, but somewhat better. Both with exertion and positional components. No obvious ischemia on stress echocardiogram No pericardial effusion on echocardiogram Trivial pleural effusion on chest x-ray We'll rule out PE with CT pulmonary angiogram, and if normal, proceed with repeat right and left heart catheterization to reassess coronary anatomy, coronary angiogram images pending review Pulmonary embolism New PE, had precipitating circumstances Lovenox bridge -->coumadin initiated today Patient counseled, will defer cardiac cath unless clinical symptoms, warrant ASSESSMENT: Although some clinical improvement, he has persistent symptoms and a CT pulmonary angiogram confirmed a probable PE in a small vessel. He may have had a more prominent PE when he had his clinical event, and he may have partially cleared this. With his recent cath (by report) demonstrating non obstructive CAD, and the stress echo, although with poor exercise tolerance, no obvious ischemia, I will defer cath for now with low threshold to proceed if higher clinical suspicion. I discussed the findings and my clinical suspicion, and he was agreeable to initiate anticoagulation and will initiate lovenox bridge to coumadin for target therapeutic INR 2.0-3.0. Small pericardial effusion noted on CT,but not evident on the stress echo. Will continue diuresis and monitor BP carefully. I thoroughly reviewed the patient's current clinical [...] effects to be aware of discussed. - initiate lovenox bridge 1 mg /kg, and coumadin 5 mg daily - No Changes in cardiac medications 2. The following labs, referrals or other testing advised: - CT pulm angiogram - defer R/L cardiac cath, but low threshold to proceed if clinical deterioration - Pacemaker reprogramming in 3 months post-implant per EP cardiology - need to review angio images from [facility]. 3. COUNSELING: Specific issues or questions addressed on this visit: - As above - I cautioned him to limit his alcohol use - Reviewed his laboratories, EKG, and recent clinical course and available discharge documents fromhis recent hospitalization in [place] 4. Cardiology follow-up scheduled for: - 1 Months or earlier as clinically indicated - PCP and other subspecialists as previously arranged Brady Ugarte MD, [facility] [employer] Cardiology Director, Cardiovascular Critical Care [employer] Textile Supervisor, Advanced Heart Failure and Cardiomyopathy Program [facility] documented in this encounter Miscellaneous Notes * Assessment & Plan Note - Brady Ugarte MD - 08/01/2012 12:52 PM EDTAssociated Problem(s): Pulmonary embolism New PE, had precipitating circumstances Lovenox bridge -->coumadin initiated today Patient counseled, will defer cardiac cath unless clinical symptoms, warrant * Assessment & Plan Note - Brady Ugarte MD - 08/01/2012 10:11 AM EDTAssociated Problem(s): Pericarditis Multiple chest pain syndrome, still persistent, but somewhat better. Both with exertion and positional components. No obvious ischemia on stress echocardiogram No pericardial effusion on echocardiogram Trivial pleural effusion on chest x-ray We'll rule out PE with CT pulmonary angiogram, and if normal, proceed with repeat right and left heart catheterization to reassess coronary anatomy, coronary angiogram images pending review * Assessment & Plan Note - Brady Ugarte MD - 08/01/2012 10:09 AM EDTAssociated Problem(s): Non-ischemic cardiomyopathy Similar left ventricular systolic dysfunction, with regional wall motion abnormality and a history of left bundle branch block. Now paced rhythm, normal pacer function Recent decompensated heart failure-post pacemaker implant * Assessment & Plan Note - Brady Ugarte MD - 08/01/2012 10:08 AM EDTAssociated Problem(s): Heart failure chronic systolic dysfunction Mild decompensation post pacemaker implant, improved with diuretics-Bumex Patient with adverse reaction with Lasix-causes a rash Appears better, and euvolemic on physical exam * Assessment & Plan Note - Brady Ugarte MD - 08/01/2012 10:07 AM EDTAssociated Problem(s): Complete heart block S. post DDDR pacemaker, with no post-implant complications Recent chest discomfort, dyspnea, diaphoresis, with trivial pleural effusions noted on a chest x-ray Some clinical improvement with diuresis documented in this encounter Plan of Treatment Upcoming Encounters Date Type Department Care Team (Late st Contact Info) Description 02/26/2024 10:00 AM [facility] Hospital Encounter [place] [address] Arrived documented as of this encounter Procedures Procedure Name Priority Date/Time Associated Diagnosis Comments PROTHROMBIN TIME Routine 08/01/2012 12:3 6 PM EDT Chest pain Complete heart block Heart failure chronic systolic dysfunction Non-ischemic cardiomyopathy BASIC METABOLIC PANEL Routine 08/01/2012 12:36 PM EDT Chest pain Complete heart block Heart failure chronic systolic dysfunction Non-ischemic cardiomyopathy documented in this encounter Results * Prothrombin Time (08/01/2012 12:36 PM EDT) Prothrombin Time 13.6 12.0 - 15.0 sec [facility] Comment: [facility] Transfusion Committee Guidelines: INR less than 2.0, PTT less than OR equal to 43.5 seconds, or Fibrinogen greater than or equal to 100 mg/dl indicate adequate procoagulant activity for hemostasis in patients without underlying bleeding disorders. International Normalization Ratio 1.0 0.9 - 1.1 [facility] Blood specimen (specimen) 08/01/2012 12:36 PM EDT 08/01/2012 12:42 PM EDT Narrative Resulting Agency Comment Spec In Lab Brady Ugarte MD HEMATOLOGY ORDERABLE S [facility] * Basic Metabolic Panel (non-fasting) (08/01/2012 12:36 PM EDT) Glucose 100 60 - 199 mg/dL [facility] Comment:Diabetes: >=200 mg/d L plus symptoms Blood Urea Nitrogen 17 10 - 20 mg/dL [facility] Creatinine 0.86 0.80 - 1.50 mg/dL [facility] Comment: Please note that the pediatric reference intervals supplied above were not validated at [facility]. Results from pediatric [...] questions. Chloride 100 98 - 107 mmol/L [facility] Carbon Dioxide 28 22 - 31 mmol/L [facility] Anion Gap 11 5 - 15 mmol/L [facility] Calcium 9.9 8.5 - 10.5 mg/dL [facility] Est [...] internet browser. http://www.nkdep.nih.gov/lab-evaluation.shtml http://www.kidney.org/professionals/ Blood specimen (specimen) 08/01/2012 12:36 PM EDT 08/01/2012 12:42 PM EDT Narrative Resulting Agency Comment Spec In Lab Brady Ugarte MD CHEMISTRY ORDERABLES [facility] [email or web address] * CT chest pulmonary embolism with contrast [...] the chest was performed following the intravenous [id number] mL Omnipaque 350 according to pulmonary embolism [...] in this encounter Visit Diagnoses Diagnosis Chest pain- Primary Chest pain, unspecified Complete heart block Atrioventricular block, complete Heart failure chronic systolic dysfunction Heart failure, unspecified Non-ischemic cardiomyopathy Other primary cardiomyopathies Pulmonary embolus Other pulmonary embolism and infarction Pulmonary embolism Other pulmonary embolism and infarction Chest pain Chest pain, unspecified documented in this encounter Care Teams Freezer Worker Relationship Specialty Start Date End Date Charli Jaramillo MD [address] [place] [address] [address] PCP - General 03/25/11 08/07/22 documented as of this encounter
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
--- OUTSIDE RECORDS SUMMARY | 2023-12-11 18:49 | XMS_ITS | Encounter Summary ---
Author Organization [facility] [place] [address] Care Team Providers Care Educational Programming Director Name Role Phone Carlos Valdez MD Primary Care Provider [phone] Reason for Visit * Reason Comments Follow-up cardiomyopathy Encounter Details Date Type Department Care Team (Late st Contact Info) Description 08/17/2012 10:50 AM EDT Follow-Up Cardiology at [address] [phone] Xin Grewal, TABLE [employer]NER [facility] [place] [address] Heart failure, unspecified (Primary Dx); Chest pain; Shortness of breath; Tachycardia; Other primary cardiomyopathies; Pericarditis Discharge Disposition: Home [...] Reading Time Taken Comments Blood Pressure 138/80 08/17/2012 10:40 AM EDT Pulse 92 08/17/2012 10:40 AM EDT reg Temperature - - Respiratory Rate 20 08/17/2012 10:40 AM EDT Oxygen Saturation 96% 08/17/2012 10:40 AM EDT room air Inhaled Oxygen Concentration - - Weight 101.4 kg (223 lb 8 oz) 08/17/2012 10:40 A M EDT Height 200.7 cm (6' 7) 08/17/2012 10:40 AM EDT Body Mass Index 25.18 08/17/2012 10:40 AM EDT documented in this encounter Patient Instructions * Patient Instructions* Xin Grewal APRN - 08/17/2012 12:31 PM EDT Decrease losartan to 1/2 tab Begin colchicine 0.6 mg twice daily Ibuprofen 400 mg (2 tabs) 3 times daily with food prilosec 20 mg once daily (protects your stomach) documented in this encounter Progress Notes * Xin Grewal APRN - 08/17/2012 4:29 PM EDT ID and CC: Jimmie Mccauley is a 67 y.o. male. He presents for earlier than scheduled f/u regarding ongoing respirophasic CP, fatigue, anorexia. HPI: Mr. Mccauley presents today earlier than scheduled followup due to concerns about ongoing respirophasic chest pain. He has been seen twice by our team in the last six weeks for similar symptoms. He continues to describe ongoing chest discomfort, which he feels across his upper chest and is described as electrical jabs, which can last several minutes to hours in duration and seems to be exacerbated by taking a deep breath. There does not seem to be any change with position other than he feels it a little bit more when he lays on his left side. He hasongoing exercise intolerance, which he describes as shortness of breath with his typical activities. His energy level is low. He has ongoing weight loss, describing no appetite and weight down about 30 pounds since he had his pacemaker implanted in May. He denies fevers, chills, or sweats however reports an episode yesterday of alternating chills/shaking chill with diaphoresis but no clear fever noted. He has had no syncope or presyncope. He denies a lower extremity edema. He takes ibuprofen, up to 800 mg daily on a regular basis for a headache syndrome, which has been present for many months. Chart was reviewed, and recent issues include: 1. complete heart block with subsequent cardiac arrest while in [place]. 2. Cardiac catheterization showed nonobstructive coronary disease. 3. Dual-chamber pacemaker implanted. 4. [place] well for approximately one week and a half following pacemaker insertion, and then above-noted constellation of symptoms began. 5. Stress echo and blood cultures performed on 07/10/12 at [facility]. LVEF 44% with no ischemia, poor exercise tolerance. 6. CT scan with PE protocol showed a small right-sided filling defect. Anticoagulation initiated for PE. 7. Blood cultures negative on 07/10. 8. Previous nonischemic cardiomyopathy dating back to 2001 with LVEF ranging 25-50%. Patient Active Problem List Diagnoses ??? Chest [...] pacer and prolonged driving from [place] to [place] Abnormal CT pulmonary angiogram 08/01/12 Lovenox bridge [...] with left bundle branch block, PVCs, QRS mojifkwt=907 msec. Symptomatic CHB 06/13/12- s/p DDDR pacemaker [...] use ??? LBBB (left bundle branch block) WIH=681 ms New Symptomatic CHB 05/30-->declined pacer at initial presentation while traveling -S/p temp pacer-->Permanent DDDR pacer -LVEF~ 50-55%, ICD not indicated, but at risk for V paced rhythm dyssynchrony ??? Complete heart block Symptomatic bradycardia with CHB and LBBB, HR in the 20-30s Initially seen at a local ER, pacemaker recommended, but declined While in ICU, [place], called [facility] in cath report, but likely symptomatic bradycardia and CHB CHB- s/p temporary pacer 06/13/2012 - cath: Angiogram, mild irregularities of LAD, LCXF dominant, 30-40% mid RCA - No LV gram done S/p DDD-R Pacemaker Medtronic Adapta Dual Chamber Model # ADDR01, Serial number [id number] -[place], [place] ??? Cardiac pacemaker Indications: Symptomatic CHB, with slow VR ~ 20-30 Current Platform: DDD-R Pacemaker Medtronic Adapta Dual Chamber Model # ADDR01, Serial number [id number] -[place], [place] ??? HX SUDDEN CARDIAC ARREST Probably bradycardic induced, presenting with symptomatic CHB, and requiring defibrillation 05/2012 Current Outpatient Rx Name Route Sig Dispense Refill ??? LOSARTAN 50 MG ORAL TAB Oral Take 1 tablet by mouth daily. 30 tablet 3 ??? WARFARIN 5 MG ORAL TAB Oral Take 1-2 tablets by mouth daily. 60 tablet 5 ??? CARVEDILOL PHOSPHATE 40 MG ORAL CM24 Oral Take 40 mg by mouth daily. 30 capsule 5 ??? BUMETANIDE 0.5 MG ORAL TAB Oral Take 1 tablet by mouth daily. 30 tablet 0 ??? SILDENAFIL 100 MG ORAL TAB Oral Take 1 tablet by mouth once as needed. 10 tablet 0 ??? ZOLPIDEM 10 MG ORAL TAB Oral Take 1 tablet by mouth nightly. 30 tablet 0 Patient will need to get future ambien scripts fro ... ??? ASPIRIN 325 MG ORAL TBEC Oral Take 325 mg by mouth daily. ??? COLCHICINE 0.6 MG ORAL TAB Oral Take 1 tablet by mouth 2 times daily. 60 tablet 3 ??? IBUPROFEN 400 MG ORAL TAB Oral Take 1 tablet by mouth every 8 hours. 30 tablet 12 ??? OMEPRAZOLE 20 MG ORAL CPDR Oral Take 1 capsule by mouth daily. 30 capsule 11 Allergies: Lasix Interval ROS: + cough with inspiration, no fever, PND, orthopnea, + activity intolerance, No leg swelling, change in bowel habit, presyncope or syncope. Otherwise as above. Physical Exam: Blood pressure 138/80, pulse 92, resp. rate 20, height 200.7 cm (6' 7), weight 101.379 kg (223 lb 8 oz), SpO2 96.00%. General: WD, WN, NAD HEENT: JVP 7-8 cm. No carotid bruits Lungs: decreased BS bilat. No crackles or wheezes. Cor: RR, normal S1, S2. pardoxical split S2. PMI not displaced. No murmur or gallop. No rub. No pulsus Abd: soft, + BS Ext: Pulses preserved, no edema, warm to ankles Pacemaker incision well healed and intact. 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 The left ventricle is mildly [...] There is no hemodynamically significant valve disease. Review of echo with Dr Guzmán - trivial posterior effusion. 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 Underlying CHB without V escape at 40 bpm. VCT 1.0 V @ 0.4 md ACT 2.0 V @ 0.4 ms. No atrial high rate episodes No reproduction symptoms with pacing in A or V. Assessment: 67 y.o. male with confusing symptom complex since pacemaker implant about 2 months ago. Sxs previously thought due to PE (sm R sided filling defect on CT scan) with no improvement despitetherapeutic anticoagulation. Though not classic presentation, respirophasic nature of symptoms and elevated inflammatory markers are suspicious for pericarditis. Current issues: 1. Pericarditis. HD stable and trivial effusion on echo. Will treat with ibuprofen, colchicine (continue for 3 months), GI prophylaxis. 2. Cardiomyopathy, longstanding nonischemic with LVEF ranging 20-50% over the years. Current echo suggests sl decline in LVEF since initiation RV pacing. 3. Heart failure. ACC/AHA stage C. NYHA FC II-III. euvolemic to mildly volume up on PE. On BB. ARB (recently stopped as he thought BP went up). 4. CHB - pacemaker dependent. Did brief PCM check today. Atrial threshold is high, but otherwise eval was unremarkable. Plan: 1. A review of the active management and working diagnosis(es) was conducted. 2. The patient's medication list was updated and new Rxs given as needed. Colchicine 0.6 mg BID Ibuprofen 400 mg TID with food Prilosec 20 mg daily Stop ASA (on warfarin) Restart losartan 50 mg daily 3. Question were answered regarding: treatment plan. Echo results, PCM eval 4. The following labs or other testing advised: 5. Cardiology follow up scheduled for: next week with Due to complexity of presentation patient was evaluated with Dr Naqvi. XIN GREWAL, SONIA Cardiology Staff Addendum: Jimmie Mccauley is a 67 y.o. year-old male patient whom I saw today with associate provider Xin Grewal. I have personally interviewed and examined the patient and reviewed appropriate data, including labs, ECGs and other diagnostic studies. I agree with the principal findings documented above. The assessment and plan were formulated in discussion with me. #1 Chest discomfort, suspect pericarditis, possibly effusive-constrictive #2 Non-ischemic cardiomyopathy (EF ~35%) with chronic systolic heart failure, NYHA II-III #3 History of complete heart block leading to PPM #4 History of PE; on anticoagulation Primary complaint at present appears to be a constant type of chest discomfort that is worse with deep breaths and possible with lying down on left side. No rub on examination. JVP not elevated. ECG is paced. Inflammatory markers are significantly elevated. Reviewed echocardiogram. Significant for a circumferential rim of probably thickened pericardium +/- fluid that was not present on prior studies (as recent as last month). The study was not intended to look for constrictive physiology, but there are some suggestive features: phasic ventricular septal shift, respiratory variation in mitral inflow and LVOT velocities, and preserved mitral annular e' velocities (despite cardiomyopathy). I think that we need to treat aggressively with scheduled ibuprofen (400-600 TID) for at least a month and colchicine (0.6 BID) for ~3 months. Steroids would be a less desirable but possible option if this is not successful. Short-term follow-up with repeat inflammatory markers is appropriate. Pericardial MRI is not possible due to PPM. Charbel Naqvi M.D. Staff [place] [employer] pager [phone] documented in this encounter Plan of Treatment Upcoming Encounters Date Type Department Care Team (Late st Contact Info) Description 02/26/2024 10:00 AM EST Hospital Encounter Non-Invasive [place] [address] Arrived documented as of this encounter Procedures Procedure Name Priority Date/Time Associated Diagnosis Comments EKG 12-LEAD Routine 08/17/2012 11:07 AM EDT Chest pain Tachycardia DIFFERENTIAL, AUTOMATED STAT 08/17/2012 8:44 AM EDT SEDIMENTATION RATE Routine 08/17/2012 8: 44 AM EDT Heart failure, unspecified Chest pain Shortness of breath CBC (WITH DIFF) STAT 08/17/2012 8:44 AM EDT Heart failure, unspecified Chest pain Shortness of breath CRP, CARDIAC RISK (HS CRP) Routine 08/17/2012 8:44 AM EDT Heart failure, unspecified Chest pain Shortness of breath PRO-BRAIN NATRIURETIC PEPTIDE STAT 08/17/2012 8:44 AM EDT Heart failure, unspecified Chest pain Shortness of breath COMPREHENSIVE METABOLIC PANEL STAT 08/17/2012 8:44 AM EDT Heart failure, unspecified Chest pain Shortness of breath documented in this encounter Results * EKG 12 Lead (08/17/2012 11:07 AM EDT) Ventricular rate 92 BPM MUSE SYSTEM Atrial Rate 92 BPM MUSE SYSTEM P-R Interval 126 ms MUSE SYSTEM QRS Duration 172 ms MUSE SYSTEM Q-T Interval 468 ms MUSE SYSTEM QTC Calculated (Bezet) 578 ms MUSE SYSTEM Calculated P [place] 7 degrees MUSE SYSTEM Calculated R [place] -75 degrees MUSE SYSTEM Calculated T [place] 93 degrees MUSE SYSTEM INTERPRETATION Electronic ventricular pacemaker When compared with ECG of 10-JUL-2012 09:56, Atrial pacing no longer present Confirmed by Charbel Naqvi MD ([id number]) on 08/17/2012 12:50:50 PM MUSE SYSTEM 08/17/2012 11:0 7 AM EDT 08/17/2012 12:50 PM EDT Charbel Naqvi MD ECG ORDERABLES MUSE SYSTEM * (ABNORMAL) Differential, Automated (08/17/2012 8:44 AM EDT) Neutrophil % 77.9(H) 34.0 - 71.0 % CERNER MILLENNIUM Neutrophil Absolute 9.70(H) 1.50 - 6.30 x10(3)/mc L CERNER MILLENNIUM Lymph % 11.1(L) 19.0 - 53.0 % CERNER MILLENNIUM Lymphocytes Abs 1.4 1.0 - 3.6 x10(3)/mc L CERNER MILLENNIUM Monocyte % 9.5 4.0 - 13.0 % CERNER MILLENNIUM Monocyte Abs 1.2(H) 0.2 - 1.0 x10(3)/mc L CERNER MILLENNIUM Eos % 1.1 0.0 - 7.0 % CERNER MILLENNIUM Eosinophils Abs 0.1 0.0 - 0.5 x10(3)/mc L CERNER MILLENNIUM Basophil % 0.2 0.0 - 2.0 % CERNER MILLENNIUM Baso Absolute 0.0 0.0 - 0.2 x10(3)/mc L CERNER MILLENNIUM Immature Gran % 0.20 0.00 - 0.66 % CERNER MILLENNIUM Comment: Immature granulocytes(IG's)percentage and absolute count will include metamyelocytes, myelocytes, and promyelocytes. Blood smears from CBCs yielding IG's will be scanned manually for concordance. If this scan disagrees with the automated IG or if promyelocytes are noted, a manual differential will be performed. Immature Gran Absolute 0.02 0.00 - 0.05 x10(3)/mc L NELSON Probity Blood specimen (specimen) 08/17/2012 8:44 AM EDT 08/17/2012 8:48 AM EDT Brady Ugarte MD HEMATOLOGY ORDERABLE S [facility] * High Sensitivity CRP (08/17/2012 8:44 AM EDT) C-Reactive Protein High Sensitivity 243.7 mg/L NELSON Probity Comment: Interpretations: 1) For cardiac risk assessment, [...] prevention. ??Circulation 2003; 107:[id number] Blood specimen (specimen) 08/17/2012 8:44 AM EDT 08/17/2012 8:48 AM EDT Narrative Resulting Agency Comment Spec In Lab Brady Ugarte MD CHEMISTRY ORDERABLES Performing Organization Address City/[facility]/ZIP Co de Phone Number CERNER MILLENNIUM * (ABNORMAL) Sedimentation rate (08/17/2012 8:44 AM EDT) Sedimentation Rate Automated 58(H) 0 - 15 mm/hr CERNER MILLENNIUM Blood specimen (specimen) 08/17/2012 8:44 AM EDT 08/17/2012 8:48 AM EDT Narrative Resulting Agency Comment Spec In Lab Brady Ugarte MD HEMATOLOGY ORDERABLE S Performing Organization Address [facility] Co de Phone Number CERNER MILLENNIUM * (ABNORMAL) CBC (with Diff) (08/17/2012 8:44 AM EDT) White Blood Cell 12.4(H) 4.0 - 10.0 x10(3)/mc L CERNER MILLENNIUM Red Blood Cell 4.64 4.63 - 6.08 x10(6)/mc L CERNER MILLENNIUM Hemoglobin 13.3(L) 13.7 - 17.5 gm/dL CERNER MILLENNIUM Hematocrit 40.0 40.0 - 51.0 % CERNER MILLENNIUM Mean Cell Volume 86.2 79.0 - 92.0 fL CERNER MILLENNIUM Mean Cell Hemoglobin 28.7 25.6 - 32.2 pg CERNER MILLENNIUM Mean Cell Hemoglobin Concentration 33.3 32.0 - 36.5 gm/dL CERNER MILLENNIUM Platelet 354 145 - 370 x10(3)/mc L CERNER MILLENNIUM RDW Standard Deviation 39.4 35.0 - 46.0 fL CERNER MILLENNIUM RDW coefficient of variation 12.5 10.9 - 14.4 % CERNER MILLENNIUM Mean Platelet Volume 9.8 9.0 - 12.0 fL CERNER MILLENNIUM Blood specimen (specimen) 08/17/2012 8:44 AM EDT 08/17/2012 8:48 AM EDT Narrative Resulting Agency Comment Spec In Lab Brady Ugarte MD HEMATOLOGY ORDERABLE S CERNER MILLENNIUM * Comprehensive metabolic panel (non-fasting) (08/17/2012 8:44 AM EDT) Glucose 160 60 - 199 mg/dL CERNER MILLENNIUM Comment:Diabetes: >=200 mg/d L plus symptoms Blood Urea Nitrogen 16 10 - 20 mg/dL CERNER MILLENNIUM Creatinine 1.07 0.80 - 1.50 mg/dL CERNER MILLENNIUM Comment: Please note that the pediatric reference intervals supplied above were not validated at [facility]. Results from pediatric patients should be interpreted in conjunction to the patient's age, height and muscle mass. Sodium 139 135 - 145 mmol/L CERNER MILLENNIUM Potassium 4.0 3.5 - 5.0 mmol/L CERNER MILLENNIUM Comment: [...] 5 - 15 mmol/L CERNER MILLENNIUM Calcium 9.6 8.5 - 10.5 mg/dL CERNER MILLENNIUM Protein, Total 7.0 6.4 - 8.3 gm/dL CERNER MILLENNIUM Albumin 3.5 3.2 - 5.2 gm/dL CERNER MILLENNIUM Aspartate Aminotransferase 15 0 - 39 unit/L CERNER MILLENNIUM Alanine Aminotransferase 25 0 - 55 unit/L CERNER MILLENNIUM Alkaline Phosphatase 85 40 - 120 unit/L CERNER MILLENNIUM Bilirubin, Total 1.1 0.2 - 1.3 mg/dL CERNER MILLENNIUM Bilirubin, Direct 0.3 0.0 - 0.3 mg/dL CERNER MILLENNIUM Est [...] internet browser. http://www.nkdep.nih.gov/lab-evaluation.shtml http://www.kidney.org/professionals/ Blood specimen (specimen) 08/17/2012 8:44 AM EDT 08/17/2012 8:48 AM EDT Narrative Resulting Agency Comment Spec In Lab Brady Ugarte MD CHEMISTRY ORDERABLES Performing Organization Address City/[facility] Co de Phone Number NELSON ONEILL * (ABNORMAL) pro-Brain Natriuretic Peptide (08/17/2012 8:44 AM EDT) NT-proBNP 980(H) <=125 pg/mL NELSON ONEILL Blood specimen (specimen) 08/17/2012 8:44 AM EDT 08/17/2012 8:48 AM EDT Narrative Resulting Agency Comment Spec In Lab Brady Ugarte MD CHEMISTRY ORDERABLES Performing Organization Address City/[facility] Co de Phone Number NELSON ONEILL documented in this encounter Visit Diagnoses Diagnosis Heart failure, unspecified- Primary Chest pain Chest pain, unspecified Shortness of breath Tachycardia Tachycardia, unspecified Other primary cardiomyopathies Pericarditis Unspecified disease of pericardium documented in this encounter Care Teams Educational Programming Director Relationship Specialty Start Date End Date Carlos Valdez MD [address] [place] [address] PCP - General 03/25/11 08/07/22 documented as of this encounter
--- OUTSIDE RECORDS SUMMARY | 2023-12-11 18:49 | XMS_ITS | Encounter Summary ---
Author [place] [address] Care Team Providers Care Restaurant Hostess Name Role Phone Carlos Valdez MD Primary Care Provider [phone] Reason for Visit * Reason Onset Date Comments Medication Refill 01/11/2012 Encounter Details Date Type Department Care Team (Late st Contact Info) Description 01/11/2012 Refill Cardiology at [address] [phone] Mary Perez, [employer] [address] [place] [place] [address] Medication Refill Social History Tobacco Use Types [...] AM EST Hospital Encounter Non-[place] [phone] Arrived documented as of this encounter Visit Diagnoses Diagnosis Other and unspecified hyperlipidemia Chronic systolic heart failure Other primary cardiomyopathies documented in this encounter Care Teams Restaurant Hostess Relationship Specialty Start Date End Date Carlos Valdez MD [address] [address] PCP - General 03/25/11 08/07/22 documented as of this encounter
--- OUTSIDE RECORDS SUMMARY | 2023-12-11 18:49 | XMS_ITS | Encounter Summary ---
Author Organization [facility] [place] [address] Care Team Providers Care Dietitian Name Role Phone Carlos Valdez MD Primary Care Provider [phone] Encounter Details Date Type Department Care Team (Late st Contact Info) Description 07/06/2012 Telephone Cardiology at [address] [phone] Brady Ugarte MD [facility] [place] [address] Social History Tobacco Use Types Packs/Day Years Used Date Smoking Tobacco: Former Cigarettes Q uit: 01/12/1996 Smokeless Tobacco: Never Comments:stopped 15 years Sex and Gender Information Value Date Recorded Sex Assigned at Not on file Gender Identity Not on file Sexual Orientation Not on file documented as of this encounter Miscellaneous Notes * Telephone Encounter - Jeanine Vega - 07/06/2012 10:02 AM EDT patients land line is down Cell phone: [phone] * Telephone Encounter - Kendy Wilkes LPN - 07/06/2012 9:06 AM EDT Pt. Called stating he woke up feeling dizzy,, sweaty and clammy. He took his BP and it was OK. Pt. recently saw Dr. Ugarte and was told to call w/ any concerns. Msg. sent to Dr. Ugarte. Pt. aware we will call him back. documented in this encounter Plan of Treatment Upcoming Encounters Date Type Department Care Team (Late st Contact Info) Description 02/26/2024 10:00 AM [facility] Hospital Encounter Non-Invasive [place] [phone] Arrived documented as of this encounter Visit Diagnoses Not on filedocumented in this encounter Care Teams Dietitian Relationship Specialty Start Date End Date Carlos Valdez MD [address] [facility] [address] [place] [address] PCP - General 03/25/11 08/07/22 documented as of this encounter
--- OUTSIDE RECORDS SUMMARY | 2023-12-11 18:49 | XMS_ITS | Encounter Summary ---
[place] [address] Care Team Providers Care Secretary Book Keeper Name Role Phone Charli Jaramillo MD Primary Care Provider [phone] Reason for Visit * Reason Comments Cardiomyopathy non eschemic Encounter Details Date Type Department Care Team ([facility] st Contact Info) Description 07/10/2012 10:10 AM EDT Follow-Up Cardiology at [address] [address] Mary Perez, PREMIUM REPRESENTATIVE [address] [place] [address] Tightness in chest (Primary Dx); Shaking chills; Elevated WBC count; Shortness of breath Discharge Disposition: Home Social History Tobacco Use [...] Sign Reading Time Taken Comments Blood Pressure 140/94 07/10/2012 9:50 AM EDT Pulse 82 07/10/2012 9:50 AM EDT Temperature - - Respiratory Rate 16 07/10/2012 9:50 AM EDT Oxygen Saturation 98% 07/10/2012 9:50 AM EDT room air Inhaled Oxygen Concentration - - Weight 105.2 kg (232 lb) 07/10/2012 9:50 AM EDT Height 198.1 cm (6' 6) 07/10/2012 9:50 AM EDT Body Mass Index 26.81 07/10/2012 9:50 AM EDT documented in this encounter Progress Notes * Mary Perez, PREMIUM REPRESENTATIVE - 07/10/2012 10:39 AM EDT Images from the original note were not included. Formerly [facility] [place] [address] [address] CARDIOMYOPATHY/HEART FAILURE SERVICE OUTPATIENT CLINIC NOTE Jatinder Morrell 07/10/2012 Primary Care Provider: CHARLI JARAMILLO MD Referring Provider: Charli Jaramillo CHIEF COMPLAINT: Mr Morrell presents today with a 6 day hx of not feeling all that well. Please refer to [...] Appetite is ok. No LE edema. Does have some SOB with activity. Patient was traveling on vacation and apparently cut his finger and reported to a local emergency room in [place]. He was told that he had a low heart rate in july need a pacemaker but he declined any further evaluation as he was asymptomatic. 2 weeks later, while [place], the patient felt weak,tired, with dizziness and reported to the local [...] He was sent urgently to the cardiac cathet erization laboratory where he was noted to have nonobstructive coronary artery disease and a temperature wire was placed. An echocardiogram demonstrated an estimated ejection fraction of 50-55% and he subsequently underwent a permanent DDD-R. pacemaker without incident or postprocedural complications. A followup chest x-ray showed no evidence of pneumothorax. He had been taking his medications religiously and had not had any lightheaded or near syncopal episodes prior to this. There were no newmedications or [id number] therapy initiated during this timeframe. On discharge, the patient was started on amlodipine presumably for labile hypertension. Patient Active Problem List Diagnoses ??? Non-ischemic cardiomyopathy Overview Note: Dilated cardiomyopathy -- [...] with left bundle branch block, PVCs, QRS ehxsmpyq=803 msec. Symptomatic CHB 06/13/12- s/p DDDR pacemaker e. AHA/ACC stage C, NYHA functional class II. f. Intolerant to spironolactone. Currently on carvedilol and Cozaar with slightly elevated blood pressure relative to LV dysfunction. ??? Heart failure chronic systolic dysfunction Overview Note: [...] stage C, NYHA FTCII ??? Alcohol use Overview Note: History of Alcohol use ??? LBBB (left bundle branch block) Overview Note: HYU=632 ms New Symptomatic CHB 05/30-->declined pacer at initial presentation while traveling -S/p temp pacer-->Permanent DDDR pacer -LVEF~ 50-55%, ICD not indicated, but at risk for V paced rhythm dyssynchrony ??? Complete heart block Overview Note: Symptomatic bradycardia with CHB and LBBB, HR in the 20-30s Initially seen at a local ER, pacemaker recommended, but declined While in [facility], [place], called [facility] in cath report, but likely symptomatic bradycardia and CHB CHB- s/p temporary pacer 06/13/2012 - cath: Angiogram, mild irregularities of LAD, LCXF dominant, 30-40% mid RCA - No LV gram done S/p DDD-R Pacemaker Medtronic Adapta Dual Chamber Model # [id number], Serial number [id number] -[place], [place] ??? Cardiac pacemaker Overview Note: Indications: Symptomatic CHB, with slow VR ~ 20-30 Current Platform: DDD-R Pacemaker Medtronic Adapta Dual Chamber Model # [id number], Serial number [id number] -[place], [place] ??? HX SUDDEN CARDIAC ARREST Overview Note: Probably bradycardic induced, presenting with symptomatic CHB, and requiring defibrillation 05/2012 Patient Active Problem List Diagnoses ??? Non-ischemic [...] with left bundle branch block, PVCs, QRS oxvaxodc=514 msec. Symptomatic CHB 06/13/12- s/p DDDR pacemaker [...] use ??? LBBB (left bundle branch block) SJO=018 ms New Symptomatic CHB 05/30-->declined pacer at initial presentation while traveling -S/p temp pacer-->Permanent DDDR pacer -LVEF~ 50-55%, ICD not indicated, but at risk for V paced rhythm dyssynchrony ??? Complete heart block Symptomatic bradycardia with CHB and LBBB, HR in the 20-30s Initially seen at a local ER, pacemaker recommended, but declined While in [facility], [place], called [facility] in cath report, but likely symptomatic bradycardia and CHB CHB- s/p temporary pacer 06/13/2012 - cath: Angiogram, mild irregularities of LAD, LCXF dominant, 30-40% mid RCA - No LV gram done S/p DDD-R Pacemaker Medtronic Adapta Dual Chamber Model # [id number], Serial number [id number] -[place], [place] ??? Cardiac pacemaker Indications: Symptomatic CHB, with slow VR ~ 20-30 Current Platform: DDD-R Pacemaker Medtronic Adapta Dual Chamber Model # [id number], Serial number [id number] -[place], [place] ??? HX SUDDEN CARDIAC ARREST Probably [...] Outpatient Prescriptions Marked as Taking for the 07/10/12 encounter (Follow-Up) with Mary Perez APRN Medication Sig Dispense Refill ??? amlodipine (NORVASC) 5 mg tablet Take 5 mg by mouth daily. ??? atorvastatin (LIPITOR) 10 mg tablet Take 10 mg by mouth daily. ??? Carvedilol Phosphate [...] nightly. 30 tablet 0 REVIEW OF SYSTEMS: PHYSICAL EXAMINATION: Vital Signs: Wt Readings from Last 3 Encounters: 07/10/12 105.235 kg (232 lb) 06/26/12 105.235 kg (232 lb) 06/26/12 105.235 kg (232 lb) BP Readings from Last 3 Encounters: 07/10/12 140/94 06/26/12 116/84 06/26/12 116/84 Pulse Readings from Last 3 Encounters: 07/10/12 82 06/26/12 80 06/26/12 80 SpO2: [98 %] General -Alert, oriented, NAD. Affect good spirits, appropriate, answers questions appropriately. Well-developed male HEENT -unremarkable, no xanthelasma, arcus, icterus. PERRLA, moist mucous membranes. Dentition good. Small oropharynx Neck -without lymphadenopathy, mass, thyromegaly Carotid upstroke Chest -site well healed, slightly tender, no ecchymoses, slightly full. Lungs -clear without rales or rhonchi Cardiac -Regular with normal S1, normally split S2, 1/6 systolic crescendo decrescendo murmur, no S3 or S4 gallop is noted. PMI not displaced. JVP~ less than 10 cm H20, without AJR. Abdomen -soft, non-tender, no significant organomegaly, masses or bruits Extremities - without pretibial or ankle edema, warm to feet. Pulses 1-2+ Neuro -intact CN, motor LAB STUDIES: Recent Results (from the past 72 hour(s)) EKG 12-LEAD Component Value Range Ventricular rate 67 Atrial Rate 67 P-R Interval 132 QRS Duration 182 Q-T Interval 528 QTC Calculated (Bezet) 557 Calculated R Westfield -84 Calculated T Westfield 94 INTERPRETATION Value: AV sequential or dual chamber electronic pacemaker Confirmed by MD Franklin Douglas ([id number]) on 07/10/2012 10:24:15 AM STUDIES Recent Labs Basename 07/10/12 1058 WBC 8.9 HGB 15.1 HCT 43.7 PLATELET 244 Recent Labs Basename 07/10/12 1058 NA 140 K 4.1 CL 104 CO2 26 BUN 12 CREATININE 1.04 Recent Labs Basename 07/10/12 1058 AST 16 ALT 16 ALKPHOS 56 BILITOT 0.7 BILIDIR 0.1 Recent Labs Basename 07/10/12 1058 PROBNP 1094* Recent Labs Basename 07/10/12 1058 CALCIUM 9.9 MAGNESIUM -- PHOS -- No results found for this basename: INR:3,PT:3,PTT:3 in the last 168 hours Lipid Panel Lab Results Component Value Date CHLPL 179 01/11/2012 HDL 52 01/11/2012 CHOLHDL 3.4 01/11/2012 TRIG 131 01/11/2012 LDLCHOL 101* 01/11/2012 Today: CXR: Findings Left anterior chest wall pulse generator [...] bilateral pleural effusion. No other cardiopulmonary findings. Treadmill stress test from today: SUMMARY: 1. REST: The left ventricular chamber [...] systolic function is a sign of ischemia.) 100% V paced (complete heart block)- sl high set output with new pacemaker Device interrogation-reviewed personally PROBLEMS: 1. Nonischemic cardiomyopathy with recent diagnosis of CHB; pacemaker placed. Has done well until ~6 days ago. Now noting lightheadedness, dyspnea, malaise and chills. Sx seem to be brought on with exertion, but stay around for hours. Pacemaker is functioning normally. Treadmill stress with appropriate HR response, BP response. RV looks ok on echo Poor exercise tolerance. EF ~ 44%. CXR- small pleural effusions-? Due to arrest last month Blood work not illuminating. Blood cultures are pending. probnp is up for him Discussed pacemaker with EP- they suggest getting a Lyme titer in light of his recent diagnosis of heart failure RECOMMENDATIONS: 1. MEDICATIONS: The patient's medication list was updated and new Rxs given as needed. The medication list was reviewed with the patient, rationale for therapy and potential side effects to be aware of discussed. - Trial of bumex(low dose) in light of pleural effusions and elevated proBNP (lasix allergy) - Depending on clinical response and blood pressure, may consider weaning or discontinue amlodipine 2. The following labs, referrals or other testing advised: - EKG-,treadmill echo, cxr, blood cultures, and device interrogation all done today as above. -Will ask PCP to check Lyme titer -await blood culture results 3. COUNSELING: Specific issues or questions addressed on this visit: - As above - - Reviewed his laboratories, EKG, and recent clinical course and available discharge documents from his recent hospitalization in [place] 4. Cardiology follow-up scheduled for: -Will need EP followup here for pacemaker In late August Will have care managers check in Monday re sx Advised no strenuous exercise right now To call 911 if sx change or worsen - PCP and other subspecialists as previously arranged documented in this encounter Procedure Notes * Provider, Scanning - 07/24/2012 9:04 AM EDTAssociated Order(s): SCAN DOC: LAB documented in this encounter Plan of Treatment Upcoming Encounters Date Type Department Care Team (Late st Contact Info) Description 02/26/2024 10:00 AM EST Hospital Encounter Non-Invasive Cardiology Lab [place] [address] Arrived Pending Results Name Type Priority Associated Diagnoses Date/Time Echo Transthoracic (Complete) Echocardiography Routine Tightness in chest 07/10/2012 1:04 PM EDT Scheduled Orders Name Type Priority Associated Diagnoses Order Schedule Echo Transthoracic (Complete) Echocardiography Routine Tightness in chest Expected: 07/10/2012, Expires: 07/10/2013 documented as of this encounter Procedures Procedure Name Priority Date/Time Associated Diagnosis Comments LAB SCAN 07/24/2012 9:04 AM EDT DIFFERENTIAL, AUTOMATED STAT 07/10/2012 10:58 AM EDT BLOOD CULTURE Routine 07/10/2012 10:58 AM EDT Shaking chills BLOOD CULTURE Routine 07/10/2012 10:58 AM EDT Tightness in chest CBC (WITH DIFF) STAT 07/10/2012 10:58 AM EDT Tightness in chest PRO-BRAIN NATRIURETIC PEPTIDE STAT 07/10/2012 10:58 AM EDT Shortness of breath Tightness in chest COMPREHENSIVE METABOLIC PANEL STAT 07/10/2012 10:58 AM EDT Tightness in chest EKG 12-LEAD Routine 07/10/2012 9:56 AM EDT Tightness in chest documented in this encounter Results * SCAN DOC: LAB (07/24/2012 9:04 AM EDT) Narrative 07/24/2012 9:04 AM EDT Procedure Note Provider, Scanning - 07/24/2012 9:04 AM EDT Scanning Provider MEDIA MGR SCAN EXT O RDR/RSLT * Echocardiogram Stress (Treadmill) (07/10/2012 2:48 PM EDT) EF 44 HEARTLAB SYSTEM Anatomical Region Laterality Modality Other 07/10/2012 Narrative 07/10/2012 3:23 PM EDT Procedure: ? Stress Echocardiogram Patient: ? PORSCHE Mancilla ?(Age): 1945(67) Med Rec#: ?[id number] ? Sex: ?M ? Site Loc: ?[facility] ? Ht / Wt: ??198(cm)/105(kg) Pt. Loc: ? Echo Lab ? BSA: ?2.4 Study Date: ?07/10/2012 ? Pt. Type: Outpatient Tape: ? Referring: Carmela Ugarte ([id number]) Data Collection Interviewer: Be Tejada Patient Transport Orderly: Rosario Jasso RDCS Diagnosis: ??Chest pain (786.50) CPT Code(s): ??Doppler LTD (30674), ??Stress Echo (35682), ??Color Doppler (72701), ??ECG Interpretation (98242), Indication(s):Medication(s): ?? Rhythm: Stage ?HR ?BP Rest [...] Hypokinetic ? Mid-Inferoseptal ?Hypokinetic ? Hypokinetic ? Cornell-Septal ? Hypokinetic ? Hypokinetic ? Cornell-Anterior ? Hypokinetic ? Hypokinetic ? Cornell-Lateral ?Hypokinetic ? Hypokinetic ? Cornell-Inferior ? Hypokinetic ? Hypokinetic ? Cornell-Tip ?Hypokinetic ? Hypokinetic ? Chambers ?Value ?Units (Range) ? EF ??Bi-p Simp ? 44 ? % (55 to 80) ? LVIDd 2D ?5.9 ?cm ? This report has been electronically signed by: Rodney Artis MD ? 07/10/2012 15:23:06 Images reviewed and interpretation verified [facility] Cardiac Ultrasound Laboratory Procedure Note Rodney Artis MD - 07/10/2012 Procedure: Stress Echocardiogram Patient: PORSCHE Mancilla (Age): 1945(67) Med Rec#: [id number] Sex: M Site Loc: [facility] Ht / Wt: 198(cm)/105(kg) Pt. Loc: Echo Lab BSA: 2.4 Study Date: 07/10/2012 Pt. Type: Outpatient Tape: Referring: Carmela Ugarte ([id number]) Data Collection Interviewer: Be Tejada Patient Transport Orderly: Rosario Jasso RDCS Diagnosis: Chest pain (786.50) CPT Code(s): Doppler LTD (23795), Stress Echo (14929), Color Doppler (84521), ECG Interpretation (33566), Indication(s):Medication(s): Rhythm: Stage HR BP Rest 73 [...] channel makeda. The patient is taking aspirin. [facility] Other echo and stress findings as noted [...] Hypokinetic Mid-Inferior Hypokinetic Hypokinetic Mid-Inferoseptal Hypokinetic Hypokinetic Cornell-Septal Hypokinetic Hypokinetic Cornell-Anterior Hypokinetic Hypokinetic Cornell-Lateral Hypokinetic Hypokinetic Cornell-Inferior Hypokinetic Hypokinetic Cornell-Tip Hypokinetic Hypokinetic Chambers Value Units (Range) EF Bi-p Simp 44 % (55 to 80) LVIDd 2D 5.9 cm This report has been electronically signed by: Rodney Artis MD 07/10/2012 15:23:06 Images reviewed and interpretation verified [facility] Cardiac Ultrasound Laboratory Carmela Ugarte MD ECHO ORDERABLES * XR chest routine PA & lateral (07/10/2012 11:05 AM EDT) Anatomical Region Laterality Modality Chest N/A Radiographic Vida ging 07/10/2012 11:0 5 AM EDT Narrative 07/10/2012 1:17 PM EDT Examination CHEST ROUTINE 2 VIEWS Clinical History [facility]- new pacemaker Comparison 06/14/2012. Technique PA and [...] Examination CHEST ROUTINE 2 VIEWS Clinical History [facility] new pacemaker Comparison 06/14/2012. Technique PA and [...] bilateral pleural effusion. No other cardiopulmonary findings. Carmela Ugarte MD IMG DX ORDERABLES * (ABNORMAL) Differential, Automated (07/10/2012 10:58 AM EDT) Neutrophil % 72.5(H) 34.0 - 71.0 % CERNER MILLENNIUM Neutrophil Absolute 6.46(H) 1.50 - 6.30 x10(3)/mc L CERNER MILLENNIUM Lymph % 18.9(L) 19.0 - 53.0 % CERNER MILLENNIUM Lymphocytes Abs 1.7 1.0 - 3.6 x10(3)/mc L CERNER MILLENNIUM Monocyte % 5.8 4.0 - 13.0 % CERNER MILLENNIUM Monocyte Abs 0.5 0.2 - 1.0 x10(3)/mc L CERNER MILLENNIUM Eos % 2.4 0.0 - 7.0 % CERNER MILLENNIUM Eosinophils Abs 0.2 0.0 - 0.5 x10(3)/mc L CERNER MILLENNIUM Basophil % 0.3 0.0 - [...] Absolute 0.01 0.00 - 0.05 x10(3)/mc L CERNER MILLENNIUM Blood specimen (specimen) 07/10/2012 10:58 AM EDT 07/10/2012 11:08 AM EDT Carmela Ugarte MD HEMATOLOGY ORDERABLE S NELSON ONEILL * Blood culture (07/10/2012 10:58 AM EDT) Blood Culture ? Patient Name: JATINDER MORRELL ? Ordered By: CARMELA UGARTE ? MR#: [id number] ?LOC: ??4A ? /Sex: ??1945 (67 years), ? Male ? PROCEDURE: Blood Culture ?SOURCE: Blood ? COLLECTED: 07/10/2012 10:58 ? STARTED: 07/10/2012 11:15 ? FINAL REPORT ? Final Report ? Verified:2012 23:10 ? No growth at 5 days. ? PRELIMINARY REPORT ? Preliminary Report ? Verified:2012 15:10 ? No growth at 4 days. ? [facility] Blood specimen (specimen) 07/10/2012 10:58 AM EDT 07/10/2012 11:15 AM EDT Narrative Resulting Agency Comment Spec In Lab Carmela Ugarte MD MICROBIOLOGY - BLOOD ORDERABLES Performing Organization Address [facility] Co de Phone Number [facility] * (ABNORMAL) pro-Brain Natriuretic Peptide (07/10/2012 10:58 AM EDT) NT-proBNP 1094(H) <=125 pg/mL [facility] Blood specimen (specimen) 07/10/2012 10:58 AM EDT 07/10/2012 11:08 AM EDT Narrative Resulting Agency Comment Spec In Lab Carmela Ugarte MD CHEMISTRY ORDERABLES Performing Organization Address [facility] Co de Phone Number [facility] * Comprehensive metabolic panel (non-fasting) (07/10/2012 10:58 AM EDT) Glucose 107 60 - 199 mg/dL [facility] Comment:Diabetes: >=200 mg/d L plus symptoms Blood Urea Nitrogen 12 10 - 20 mg/dL [facility] Creatinine 1.04 0.80 - 1.50 mg/dL [facility] Comment: Please note that the pediatric reference intervals supplied above were not validated at [facility]. Results from pediatric patients should [...] - 31 mmol/L CERNER MILLENNIUM Anion Gap 10 5 - 15 mmol/L CERNER MILLENNIUM Calcium 9.9 8.5 - 10.5 mg/dL CERNER MILLENNIUM Protein, Total 6.6 6.4 - 8.3 gm/dL CERNER MILLENNIUM Albumin 3.8 3.2 - 5.2 gm/dL CERNER MILLENNIUM Aspartate Aminotransferase 16 0 - 39 unit/L CERNER MILLENNIUM Alanine Aminotransferase 16 0 - 55 unit/L CERNER MILLENNIUM Alkaline Phosphatase 56 40 - 120 unit/L CERNER MILLENNIUM Bilirubin, Total 0.7 0.2 - 1.3 mg/dL CERNER MILLENNIUM Bilirubin, Direct 0.1 0.0 - 0.3 mg/dL CERNER MILLENNIUM Est [...] diabetic kidney disease. References: http://nkdep.nih.gov/resources/NKDEP_Suggestn4Labs_0606_508.pdf http://www.kidney.org/professionals/kls/pdf/faq_gfr.pdf Kun K, Davidson NA, Domingo AK, Manjit TS, Toby AD, Eriberto DAMION. Relative performance of the MDRD and CKD-EPI equations for estimating glomerular filtration rate among patients with varied clinical presentations. Clin J Am Soc Nephrol;6:1963-72. Blood specimen (specimen) 07/10/2012 10:58 AM EDT 07/10/2012 11:08 AM EDT Narrative Resulting Agency Comment Spec In Lab Carmela Ugarte MD CHEMISTRY ORDERABLES [facility] * CBC (with Diff) (07/10/2012 10:58 AM EDT) White Blood Cell 8.9 4.0 - 10.0 x10(3)/mcL CERNER MILLENNIUM Red Blood Cell 5.06 4.63 - 6.08 x10(6)/mcL CERNER MILLENNIUM Hemoglobin 15.1 13.7 - 17.5 gm/dL CERNER MILLENNIUM Hematocrit 43.7 40.0 - 51.0 % CERNER MILLENNIUM Mean Cell Volume 86.4 79.0 - 92.0 fL CERNER MILLENNIUM Mean Cell Hemoglobin 29.8 25.6 - 32.2 pg CERNER MILLENNIUM Mean Cell Hemoglobin Concentration 34.6 32.0 - 36.5 gm/dL CERNER MILLENNIUM Platelet 244 145 - 370 x10(3)/mcL CERNER MILLENNIUM RDW Standard Deviation 37.6 35.0 - 46.0 fL CERNER MILLENNIUM RDW coefficient of variation 12.1 10.9 - 14.4 % NELSON ONEILL Mean Platelet Volume 9.9 9.0 - 12.0 fL NELSON ONEILL Blood specimen (specimen) 07/10/2012 10:58 AM EDT 07/10/2012 11:08 AM EDT Narrative Resulting Agency Comment Spec In Lab Carmela Ugarte MD HEMATOLOGY ORDERABLE S NELSON ONEILL * Blood culture (07/10/2012 10:58 AM EDT) Blood Culture ? Patient Name: JATINDER MORRELL ? Ordered By: CARMELA UGARTE ? MR#: [id number] ?LOC: ??4A ? /Sex: ??1945 (67 years), ? Male ? PROCEDURE: Blood Culture ?SOURCE: Blood ? COLLECTED: 07/10/2012 10:58 ? STARTED: 07/10/2012 11:15 ? FINAL REPORT ? Final Report ? Verified:2012 23:10 ? No growth at 5 days. ? PRELIMINARY REPORT ? Preliminary Report ? Verified:2012 15:10 ? No growth at 4 days. ? NELSON ONEILL Blood specimen (specimen) 07/10/2012 10:58 AM EDT 07/10/2012 11:15 AM EDT Narrative Resulting Agency Comment Spec In Lab Carmela Ugarte MD MICROBIOLOGY - BLOOD ORDERABLES Performing Organization Address City/[facility] Co de Phone Number NELSON ONEILL * EKG 12 Lead (07/10/2012 9:56 AM EDT) Ventricular rate 67 BPM MUSE SYSTEM Atrial Rate 67 BPM MUSE SYSTEM P-R Interval 132 ms MUSE SYSTEM QRS Duration 182 ms MUSE SYSTEM Q-T Interval 528 ms MUSE SYSTEM QTC Calculated (Bezet) 557 ms MUSE SYSTEM Calculated R Westfield -84 degrees MUSE SYSTEM Calculated T Westfield 94 degrees MUSE SYSTEM INTERPRETATION AV sequential or dual chamber electronic pacemaker Confirmed by MD Franklin Douglas ([id number]) on 07/10/2012 10:24:15 AM MUSE SYSTEM 07/10/2012 9:56 AM EDT 07/10/2012 10:24 AM EDT Carmela Ugarte MD ECG ORDERABLES Performing Organization Address City/[facility] Co de Phone Number MUSE SYSTEM documented in this encounter Visit Diagnoses Diagnosis Tightness in chest- Primary Other chest pain Shaking chills Chills (without fever) Elevated WBC count Leukocytosis, unspecified Shortness of breath Shortness of breath Tightness in chest Other chest pain Tightness in chest Other chest pain documented in this encounter Care Teams Secretary Book Keeper Relationship Specialty Start Date End Date Charli Jaramillo MD [address] [address] PCP - General 03/25/11 08/07/22 documented as of this encounter
--- OUTSIDE RECORDS SUMMARY | 2023-12-11 18:50 | XMS_ITS | Encounter Summary ---
Author Organization [facility] [place] [address] Care Team Providers Care Shell Fisherman Name Role Phone Carlos Valdez MD Primary Care Provider [phone] Encounter Details Date Type Department Care Team (Late st Contact Info) Description 03/31/2011 11:00 AM EST - 03/31/2011 12:00 PM EST [place] [address] Laurent Hawkins MD [facility] [place] [address] COLONOSCOPY, DIAGNOSTIC (WRVU 3.26) Social History Tobacco Use Types Packs/Day Years Used Date Smoking Tobacco: Never Cigarettes Qu it: 01/12/1996 Smokeless Tobacco: Never Sex and Gender Information Value Date Recorded Sex Assigned at Not on file Gender Identity Not on file Sexual Orientation Not on file documented as of this encounter Last Filed Vital Signs Vital Sign Reading Time Taken Comments Blood Pressure 115/65 03/31/2011 1:00 PM EST Pulse 57 03/31/2011 1:00 PM EST Temperature - - Respiratory Rate 20 03/31/2011 1:00 PM EST Oxygen Saturation 98% 03/31/2011 1:00 PM EST Inhaled Oxygen Concentration - - Weight - - Height - - Body Mass Index - - documented in this encounter Discharge Instructions * Discharge Instructions* Arely Hansen RN - 03/31/2011 1:14 PM EST Please call [phone], before 5pm with problems, questions or concerns, after 5pm call the Hospital at [phone] and ask to speak to the Kennel Staff Member garment alteration examiner and the sonoscope operator will contactthat person for you. Discharge instructions reviewed with patient who expresses understanding. * Patient Instructions* Laurent Hawkins MD - 03/31/2011 12:23 PM EST Please see Recommendations in the Provation procedure report which is documented in the procedural note in E-[facility]. * Attachments The following attachments cannot be sent through Care Everywhere. * COLONOSCOPY: WHAT TO EXPECT AT HOME (MALIAN) documented in this encounter Medications at Time of Discharge Medication Sig Dispensed Refills Start Date End Date sildenafil (VIAGRA) 100 mg tablet Take 1 tablet by mouth once as needed. 10 tablet 0 01/11/2011 zolpidem (AMBIEN) 10 mg tabletIndications:Insomnia Take 1 tablet by mouth nightly. 30 tablet 0 01/11/2011 aspirin 325 mg EC tablet Take 325 mg by mouth daily. 08/17/2012 atorvastatin (LIPITOR) 10 mg tabletIndications:Other and unspecified hyperlipidemia Take 1 tablet by mouth daily. 90 tablet 3 01/11/2011 07/12/2011 losartan (COZAAR) 100 mg tabletIndications:Other primary cardiomyopathies Take 1 tablet by mouth daily. 90 tablet 3 01/11/2011 01/11/2012 Carvedilol Phosphate (COREG CR) 40 mg [id number]:Chronic systolic heart failure Take 40 mg by mouth daily. 90 mg 3 01/11/2011 01/11/2012 documented as of this encounter H&P Notes * Laurent Hawkins MD - 03/31/2011 12:22 PM EST Gastroenterology and Hepatology Pre-Procedure History and Physical Exam Procedure:coilo Indication: screen HEENT: Airway examined, oropharynx clear LUNGS: Clear to auscultation HEART: Regular rate and rhythm, normal S1, S2 ABDOMEN: Normal bowel sounds, soft, non tender, non distended, A/P Proceed with colo Risks and benefits of the procedure explained to the patient. Consent signed. documented in this encounter Miscellaneous Notes * Miscellaneous - Provider, Scanning - 03/31/2011 9:42 PM EST * Miscellaneous - Provider, Scanning - 03/31/2011 12:24 PM EST * OR Attestation - Laurent Hawkins MD - 03/31/2011 12:23 PM EST Attestation: Case Date: 03/31/2011 As the attending physician, I personally performed the entire procedure. LAURENT HAWKINS MD 03/31/2011 documented in this encounter Plan of Treatment Upcoming Encounters Date Type Department Care Team (Late st Contact Info) Description 02/26/2024 10:00 AM EST Hospital Encounter Non-Invasive [place] [address] Arrived documented as of this encounter Procedures Procedure Name Priority Date/Time Associated Diagnosis Comments COLONOSCOPY, DIAGNOSTIC (WRVU 3.26) 03/31/2011 12:19 PM EST SCREENING COLONOSCOPY Routine 03/31/2011 12:11 PM EST documented in this encounter Results * COLONOSCOPY (03/31/2011 12:11 PM EST) COLONOSCOPY [facility] Patient Name: Jimmie Mccauley ? Procedure Date: 03/31/2011 12:11 PM ? Date of : 1945 ? Age: 65 ? Order #: [id number] ? Procedure: ? Colonoscopy Indications: ? Screening [...] EST Unknown GENERAL SURGICAL ORD ERABLES PROVATION documented in this encounter Visit Diagnoses Not on filedocumented in this encounter Administered Medications Inactive Administered Medications - up to 3 most recent administrations Medication Order MAR Action Action Date Dose Rate Site fentaNYL 50mcg/mL injection ONCE PRN, Starting on Tasneem 03/31/11 at 1224, Until Tasneem 03/31/11 at 1834, Pain, Intra-Operative (Intra-Procedure), Routine Given 03/31/2011 12:42 PM EST 50 mcg Given 03/31/2011 12:34 PM EST 50 mcg Given 03/31/2011 12:31 PM EST 50 mcg midazolam (VERSED) injection ONCE PRN, Starting on Tasneem 03/31/11 at 1224, Until Tasneem 03/31/11 at 1834, Sleep, Intra-Operative (Intra-Procedure), Routine Given 03/31/2011 12:43 PM EST 1 mg Given 03/31/2011 12:37 PM EST 1 mg Given 03/31/2011 12:34 PM EST 1 mg sodium chloride 0.9% infusion 30 mL/hr, Intravenous, CONTINUOUS, Starting on Tasneem 03/31/11 at 1200, Until Tasneem 03/31/11 at 1834, Endoscopy (Day of Procedure) New Bag 03/31/2011 12:00 PM EST 30 mL/hr 30 mL/hr documented in this encounter Active and Recently Administered Medications Times are shown in EST. Continuous Medication Order 03/29/2011 03/30/2011 03/31/2011 sodium chloride 0.9% infusion (CANCELED) 30 mL/hr, Intravenous, CONTINUOUS, Starting on Tasneem 03/31/11 at 1200, Until Tasneem 03/31/11 at 1834, Endoscopy (Day of Procedure) 1200 (New Bag - Prov ider: Alejandrina Arriaza RN) PRN Medication Order 03/29/2011 03/30/2011 03/31/2011 fentaNYL 50mcg/mL injection (CANCELED) ONCE PRN, Starting on Tasneem 03/31/11 at 1224, Until Tasneem 03/31/11 at 1834, Pain, Intra-Operative (Intra-Procedure), Routine 1224 (Given - Provid er: Ragini Pacheco RN)1231 (Given - Provider: Ragini Pacheco RN)1234 (Given - Provider: Ragini Pacheco RN)1242 (Given - Provider: Ragini Pacheco RN) midazolam (VERSED) injection (CANCELED) ONCE PRN, Starting on Tasneem 03/31/11 at 1224, Until Tasneem 03/31/11 at 1834, Sleep, Intra-Operative (Intra-Procedure), Routine 1224 (Given - Provid er: Ragini Pacheco RN)1229 (Given - Provider: Ragini Pacheco RN)1231 (Given - Provider: Ragini Pacheco RN)1234 (Given - Provider: Ragini Pacheco RN)1237 (Given - Provider: Ragini Pacheco RN)1243 (Given - Provider: Ragini Pacheco RN) documented in this encounter Care Teams Shell Fisherman Relationship Specialty Start Date End Date Carlos Valdez MD [address] [place] [address] PCP - General 03/25/11 08/07/22 documented as of this encounter
--- OUTSIDE RECORDS SUMMARY | 2023-12-11 18:50 | XMS_ITS | Encounter Summary ---
[place] [address] Care Team Providers Care Presentation Manager Name Role Phone Daquan Carrera MD Primary Care Provider [phone] Reason for Visit * Reason Onset Date Comments Medication Refill 07/14/2010 Encounter Details Date Type Department Care Team (Late st Contact Info) Description 07/14/2010 Refill Cardiology at [address] [address] Mary Perez, FILAMENT SHAPER [address] [place] [address] Medication Refill Social History Tobacco Use Types [...] AM EST Hospital Encounter Non-Invasive [place] [phone] Arrived documented as of this encounter Visit Diagnoses Diagnosis Cardiomyopathy Other primary cardiomyopathies documented in this encounter Care Teams Presentation Manager Relationship Specialty Start Date End Date Daquan Carrera MD [address] [place] [address] PCP - General 02/09/10 01/10/11 documented as of this encounter
--- OUTSIDE RECORDS SUMMARY | 2023-12-11 18:50 | XMS_ITS | Encounter Summary ---
[place] [address] Care Team Providers Care Electronic Industrial Controls Mechanic Name Role Phone Unavailable Primary Care Provider Unavailabl e Reason for Referral * Surgical (Routine) - Closed Specialty Diagnoses / Procedures Referred By Theodora de la torre Referred To Contact Gastroenterology Diagnoses Screening Karo Valentine APRN [address] [place] [address] [facility] [address] [place] [address] Referral ID Status Reason Start Date Expiration Date V isits Requested Visits Authorized [id number] Closed Test Only 01/11/2011 07/10/2011 1 1 Reason for Visit * Reason Comments Congestive Heart Failure Encounter Details Date Type Department Care Team (Late st Contact Info) Description 01/11/2011 10:50 AM EDT Follow-Up Cardiology at [address] [phone] Karo Valentine APRN [address] [place] [address] Other and unspecified hyperlipidemia; Other primary cardiomyopathies; Chronic systolic heart failure; Insomnia; Screening Discharge Disposition: Home Social History Tobacco Use Types Packs/Day Years Used Date Smoking Tobacco: Former Cigarettes Q uit: 01/12/1996 Smokeless Tobacco: Never Sex and Gender Information Value Date Recorded Sex Assigned at Not on file Gender Identity Not on file Sexual Orientation Not on file documented as of this encounter Last Filed Vital Signs Vital Sign Reading Time Taken Comments Blood Pressure 120/70 01/11/2011 10:47 AM EDT Lt arm sitting Pulse 72 01/11/2011 10:47 AM EDT Regular Temperature - - Respiratory Rate - - Oxygen Saturation 96% 01/11/2011 10: 47 AM EDT Room Air @ Rest Inhaled Oxygen Concentration - - Weight 102.5 kg (226 lb) 01/11/2011 10: 47 AM EDT Height 198.1 cm (6' 6) 01/11/2011 10:4 7 AM EDT Body Mass Index 26.12 01/11/2011 10:47 AM EDT documented in this encounter Progress Notes * Karo Valentine APRN - 01/11/2011 12:02 PM EDTAddended by: KARO VALENTINE on: 01/11/2011 Modules accepted: Orders * Karo Valentine APRN - 01/11/2011 11:47 AM EDT HEART FAILURE CLINIC NOTE Jimmie Mccauley [id number] : 1945 Age: 65 y.o. PCP: UNKNOWN,MD ESAN Today's date: 01/11/2011 Jimmie Mccauley is here for followup with the Heart Failure Team. He continues to do well with respect to his cardiomyopathy, with no acute decompensated events. 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 He denies any heart failure symptoms. He can exercise without difficulty-he gets SOB going up the hill by his house, but says everyone does. He has hisdog, named Vayable who requires lots of exercise, which has helped him lose a little weight. Heis 8-10 lbs down since last year. No lighthesded or dizzy episodes. No PND or orthopnea. No chest pain, tightness or palpitations. No cough. Appetite is healthy. No LE edema. He checks his BP regularly; says the systolic is usually in the 130 range. Continues with 1 drink /day. He does experience fatigue; says it is better on long acting carvedilol. Asking for refills of ambien and viagra. Says his PCP is retiring- has an appt coming up in Nov with new provider? Review of Systems otherwise negative Past Medical History: Patient Active Problem List Diagnoses ??? CIS - Dilated cardiomyopathy -- non-ischemic ??? CIS - Left bundle branch block History reviewed. No pertinent past medical history. Heart Failure Management: Yes/No No?/Discontinued/Why Beta makeda Yes ROSY/ARB Yes Spironolactone no AFIB? no Anticoagulated AICD/Type NA Ef >40% Medications Outpatient prescriptions marked as taking for the 01/11/11 encounter (Follow-Up) with KARO VALENTINE Medication Sig Dispense Refill ??? aspirin 325 mg EC tablet Take 325 mg by mouth daily. ??? atorvastatin (LIPITOR) 10 mg tablet Take 1 tablet by mouth daily. 90 tablet 3 ??? losartan (COZAAR) 100 mg tablet Take 1 tablet by mouth daily. 90 tablet 3 ??? Carvedilol Phosphate (COREG CR) 40 mg CM24 Take 40 mg by mouth daily. 90 mg 3 ??? sildenafil (VIAGRA) 100 mg tablet Take 1 tablet by mouth once as needed. 10 tablet 0 ??? zolpidem (AMBIEN) 10 mg tablet Take 1 tablet by mouth nightly. 30 tablet 0 ??? DISCONTD: zolpidem (AMBIEN) 10 mg tablet Take 1 tablet by mouth nightly. 30 tablet 0 ??? DISCONTD: losartan (COZAAR) 100 mg tablet 100 mg PO Once daily ??? DISCONTD: atorvastatin (LIPITOR) 10 mg tablet 10 mg PO QPM ??? DISCONTD: sildenafil (VIAGRA) 100 mg tablet 100 MG = 1 Tablet(s), PO, PRN ??? DISCONTD: Carvedilol Phosphate (COREG CR) 40 mg CM24 40 MG = 1 Capsule(s) PO Once daily Allergies Allergies as of 01/11/2011 ??? (No Known Allergies) INTERIM SOCIAL HISTORY Changes in job, home situation, tobacco or alcohol use: None CHANGES IN RELEVANT FAMILY HISTORY: None Physical Exam Filed Vitals: 10/25/11 1047 BP: 120/70 Pulse: 72 Height: 198.1 cm (6' 6) Weight: 102.513 kg (226 lb) SpO2: 96% GENERAL: Looks well, in no acute distress- tall fellow HEENT/Neck: Nonicteric sclerae; no pre/post cervical adenopathy; no enlarged thyroid CARDIAC: Regular rhythm; I cannot hear a [...] Recent Results (from the past 24 hour(s)) LIPID PANEL (FASTING) Component Value Range ? ? Chol, Total 156 <=199 (mg/dL) ? ? Triglycerides 120 <=149 (mg/dL) ? ? HDL 48 >=40 (mg/dL) ? ? LDL Cholesterol 84 <=99 (mg/dL) ??? Chol/HDL Ratio 3.3 (ratio) COMPREHENSIVE METABOLIC PANEL (NON-FASTING) Component Value Range ??? Glucose Lvl 102 60 - 199 (mg/dL) ??? BUN 26 (*) 10 - 20 (mg/dL) ??? Creatinine 1.17 0.80 - 1.50 (mg/dL) ??? Sodium 137 135 - 145 (mmol/L) ??? Potassium 5.2 (*) 3.5 - 5.0 (mmol/L) ??? Chloride 100 98 - 107 (mmol/L) ??? CO2 32 (*) 22 - 31 (mmol/L) ??? Anion Gap 5 5 - 15 (mmol/L) ??? Calcium 9.7 8.5 - 10.5 (mg/dL) ??? Total Protein 6.7 6.4 - 8.3 (gm/dL) ??? Albumin 4.2 3.2 - 5.2 (gm/dL) ??? AST 17 0 - 39 (unit/L) ??? ALT 17 0 - 55 (unit/L) ??? Alk Phos 49 40 - 120 (unit/L) ??? Total Bilirubin 1.1 0.2 - 1.3 (mg/dL) ??? Bili, Direct 0.2 0.0 - 0.3 (mg/dL) ? ? Estimated GFR >60 >=60 CBC (WITH DIFF) Component Value Range ??? WBC 8.8 4.0 - 10.0 (x10(3)/mcL) ??? RBC 5.18 4.63 - 6.08 (x10(6)/mcL) ??? Hemoglobin 15.4 13.7 - 17.5 (gm/dL) ??? Hematocrit 44.4 40.0 - 51.0 (%) ??? MCV 85.7 79.0 - 92.0 (fL) ??? MCH 29.7 25.6 - 32.2 (pg) ??? MCHC 34.7 32.0 - 36.5 (gm/dL) ??? Platelets 201 145 - 370 (x10(3)/mcL) ??? RDWSD 39.3 35.0 - 46.0 (fL) ??? RDWCV 12.7 10.9 - 14.4 (%) ??? MPV 10.8 9.0 - 12.0 (fL) PRO-BRAIN NATRIURETIC PEPTIDE Component Value Range ? ? ProBNP 63 <=125 (pg/mL) URIC ACID Component Value Range ??? Uric Acid 6.3 3.5 - 8.5 (mg/dL) A-DIFF Component Value Range ??? Neutrophils % 60.4 34.0 - 71.0 (%) ??? Neutr Abs (ANC) 5.33 1.50 - 6.30 (x10(3)/mcL) ??? Lymphocytes % 29.2 19.0 - 53.0 (%) ??? Lymphocytes Abs 2.6 1.0 - 3.6 (x10(3)/mcL) ??? Monocytes % 7.9 4.0 - 13.0 (%) ??? Monocyte Abs 0.7 0.2 - 1.0 (x10(3)/mcL) ??? Eosinophils % 1.8 0.0 - 7.0 (%) ??? Eosinophils Abs 0.2 0.0 - 0.5 (x10(3)/mcL) ??? Basophils % 0.6 0.0 - 2.0 (%) ??? Basophils Abs 0.1 0.0 - 0.2 (x10(3)/mcL) ??? Immature Gran % 0.10 0.00 - 0.66 (%) ??? Elva Gran Abs 0.01 0.00 - 0.05 (x10(3)/mcL) Cardiology Studies Reviewed: echo from today: 1. Mild concentric left ventricular hypertrophy is observed. Global left ventricular systolic function is moderately reduced. The quantitative left ventricular ejection fraction is 47% by 3D (UZK=602 ml;ESV=85 ml). There is diffuse hypokinesis present. There is a left ventricular septal wall motion abnormality observed, possibly due to the presence of a left bundle branch block. 2. The left ventricular diastolic filling pattern is consistent with impaired LV relaxation. 3. The left atrium is mildly dilated. The right atrium is mildly dilated. 4. There is no hemodynamically significant valve disease. 5. There is mild dilatation of the aortic root. There is mild dilatation of the ascending aorta. 6. See remainder of report for additional findings. Impression: Hx nonischemic cardiomyopathy. EF now ~47 with lower LV diastolic volumes No evidence of decomensated HF, currently on beta makeda, ARB HAH/ACC StageC/NYHA CL I Health maintenance per PCP- I took the opportunity to discuss colo, which he has done with his PCP as well. He admits he should do, hasn't wanted to, but now willing to undergo. I told him we would grab the opportunity and get him scheduled. Plan: 1. A review of the active [...] reviewed --Other recommendations etc: 3. Medication changes: --None at this visit 4. The following labs, referrals or other testing advised: --None at this visit 5. Cardiology follow up scheduled for: -- HF clinic in -- HFCCM : documented in this encounter Plan of Treatment Upcoming Encounters Date Type Department Care Team (Late st Contact Info) Description 02/26/2024 10:00 AM [facility] Hospital Encounter [place] [address] Arrived Scheduled Referrals Name Type Priority Associated Diagnoses Order Schedule REFERRAL TO GASTROENTEROLOGY Outpatient Referral Routine Screening Ordered: 01/11/2011 documented as of this encounter Procedures Procedure Name Priority Date/Time Associated Diagnosis Comments DIFFERENTIAL, AUTOMATED STAT 01/11/2011 8:56 AM EDT CBC (WITH DIFF) STAT 01/11/2011 8:56 AM EDT Other primary cardiomyopathies Chronic systolic heart failure URIC ACID STAT 01/11/2011 8:56 AM EDT Other primary cardiomyopathies Chronic systolic heart failure PRO-BRAIN NATRIURETIC PEPTIDE STAT 01/11/2011 8:56 AM EDT Other primary cardiomyopathies Chronic systolic heart failure LIPID PANEL (REFLEX DIRECT LDL) Routine 01/11/2011 8:56 AM EDT Other and unspecified hyperlipidemia COMPREHENSIVE METABOLIC PANEL STAT 01/11/2011 8:56 AM EDT Other primary cardiomyopathies Chronic systolic heart failure documented in this encounter Results * A-DIFF (01/11/2011 8:56 AM EDT) Neutrophil % 60.4 34.0 - 71.0 % CERNER MILLENNIUM Neutrophil Absolute 5.33 1.50 - 6.30 x10(3)/mcL CERNER MILLENNIUM Lymph % 29.2 19.0 - 53.0 % CERNER MILLENNIUM Lymphocytes Abs 2.6 1.0 - 3.6 x10(3)/mcL CERNER MILLENNIUM Monocyte % 7.9 4.0 - 13.0 % CERNER MILLENNIUM Monocyte Abs 0.7 0.2 - 1.0 x10(3)/mcL CERNER MILLENNIUM Eos % 1.8 0.0 - 7.0 % CERNER MILLENNIUM Eosinophils Abs 0.2 0.0 - 0.5 x10(3)/mcL CERNER MILLENNIUM Basophil % 0.6 0.0 - 2.0 % CERNER MILLENNIUM Baso Absolute 0.1 0.0 - 0.2 x10(3)/mcL CERNER MILLENNIUM Immature [...] 0.05 x10(3)/mcL CERNER MILLENNIUM Blood specimen (specimen) 01/11/2011 8:56 AM EDT 01/11/2011 9:05 AM EDT Brady Ugarte MD HEMATOLOGY ORDERABLE S [facility] * Uric acid (01/11/2011 8:56 AM EDT) Uric Acid 6.3 3.5 - 8.5 mg/dL CERNER MILLENNIUM Blood specimen (specimen) 01/11/2011 8:56 AM EDT 01/11/2011 9:05 AM EDT Brady Ugarte MD CHEMISTRY ORDERABLES Performing Organization Address [facility] Co de Phone Number CERNER MARICRUZENNIUM * pro-Brain Natriuretic Peptide (01/11/2011 8:56 AM EDT) NT-proBNP 63 <=125 pg/mL CERNER MILLENNIUM Blood specimen (specimen) 01/11/2011 8:56 AM EDT 01/11/2011 9:05 AM EDT Brady Ugarte MD CHEMISTRY ORDERABLES Performing Organization Address [facility] Co de Phone Number CERNER MILLENNIUM * CBC (with Diff) (01/11/2011 8:56 AM EDT) White Blood Cell 8.8 4.0 - 10.0 x10(3)/mcL CERNER MILLENNIUM Red Blood Cell 5.18 4.63 - 6.08 x10(6)/mcL CERNER MILLENNIUM Hemoglobin 15.4 13.7 - 17.5 gm/dL CERNER MILLENNIUM Hematocrit 44.4 40.0 - 51.0 % CERNER MILLENNIUM Mean Cell Volume 85.7 79.0 - 92.0 fL CERNER MILLENNIUM Mean Cell Hemoglobin 29.7 25.6 - 32.2 pg CERNER MILLENNIUM Mean Cell Hemoglobin Concentration 34.7 32.0 - 36.5 gm/dL CERNER MILLENNIUM Platelet 201 145 - 370 x10(3)/mcL CERNER MILLENNIUM RDW Standard Deviation 39.3 35.0 - 46.0 fL CERNER MILLENNIUM RDW coefficient of variation 12.7 10.9 - 14.4 % CERNER MILLENNIUM Mean Platelet Volume 10.8 9.0 - 12.0 fL CERNER MILLENNIUM Blood specimen (specimen) 01/11/2011 8:56 AM EDT 01/11/2011 9:05 AM EDT Brady Ugarte MD HEMATOLOGY ORDERABLE S CERNER MARICRUZENNIUM * (ABNORMAL) Comprehensive metabolic panel (non-fasting) (01/11/2011 8:56 AM EDT) Glucose 102 60 - 199 mg/dL CERNER MILLENNIUM Comment:Diabetes: >=200 mg/d L plus symptoms Blood Urea Nitrogen 26(H) 10 - 20 mg/dL CERNER MILLENNIUM Creatinine 1.17 0.80 - 1.50 mg/dL CERNER MILLENNIUM Sodium 137 135 - 145 mmol/L CERNER MILLENNIUM Potassium 5.2(H) 3.5 - 5.0 mmol/L CERNER MILLENNIUM Comment: Please note: ??Patients with WBC >100,000 may have falsely elevated Potassium levels. ??For accurate Potassium quantification in these patients send serum separator tube (gold top) for subsequent determinations. ??Contact the Clinical Chemistry Laboratory if there are any questions. Chloride 100 98 - 107 mmol/L CERNER MILLENNIUM Carbon Dioxide 32(H) 22 - 31 mmol/L CERNER MILLENNIUM Anion Gap 5 5 - 15 mmol/L CERNER MILLENNIUM Calcium 9.7 8.5 - 10.5 mg/dL CERNER MILLENNIUM Protein, Total 6.7 6.4 - 8.3 gm/dL CERNER MILLENNIUM Albumin 4.2 3.2 - [...] past week). For patients multiply eGFR by 1.2.MDRD equation has not been validated for pediatric patients and is only valid for patients with age >= 18 years. At present, NKDEP does NOT recommend using [...] with diabetic kidney disease. References: http://nkdep.nih.gov/resources/NKDEP_Suggestn4Labs_0606_508.pdf http://www.kidney.org/professionals/kls/pdf/faq_gfr.pdf Blood specimen (specimen) 01/11/2011 8:56 AM EDT 01/11/2011 9:05 AM EDT Brady Ugarte MD CHEMISTRY ORDERABLES NELSON ONEILL * Lipid panel (fasting) (01/11/2011 8:56 AM EDT) Cholesterol, Total 156 <=199 mg/dL NELSON ONEILL Comment: Recommendations of the NCEP Adult Treatment Panel for the following risk cutoff thresholds for the [place] population: Desirable: <200 mg/dL Borderline High: 200-239 mg/dL High: > or = 240 mg/dL Triglyceride 120 <=149 mg/dL NELSON ONEILL Comment: Reference Range: Normal triglycerides: ??<150 mg/dL Borderline high: ??150-199 mg/dL High: ??200-499 mg/dL Very high: ??>wj=108 mg/dL DEBBIE 2001; 285(19):6493-2761 HDL Cholesterol 48 >=40 mg/dL TASHA ONEILL Comment: Reference range: ??Low HDL: ?? < 40 mg/dL ??Normal: ?40-60 mg/dL ??Desirable: > 60 mg/dL DEBBIE 2001; 285(19):8769-4048 LDL Cholesterol 84 <=99 mg/dL CER NER MILLENNIUM Comment: Reference range: ?? Optimal: ?<100 mg/dL ?? Near Optimal/Above Optimal: ?? 100-129 mg/dL ?? Borderline high: ?130-159 mg/dL ?? High: ? 160-189 mg/dL ?? Very high: ?>my=157 mg/dL DEBBIE 2001: 285(19):1680-8378 Cholesterol/HDL Ratio 3.3 ratio TASHANER SABRINAIUM Comment: A Cholesterol to HDL ratio below 4:1 is desirable. ??Studies suggest that increased CAD risk occurs at ratios above 5 for females and above 6 for men. ? [place] Heart Association ??(http://www.americanheart.org) ? [place] Ellen Int Med, 1994; 121:641 ? AM J Med, 1998; 105(1A):48S Blood specimen (specimen) 01/11/2011 8:56 AM EDT 01/11/2011 9:05 AM EDT Brady Ugarte MD CHEMISTRY ORDERABLES NELSON ONEILL documented in this encounter Visit Diagnoses Diagnosis Other and unspecified hyperlipidemia Other primary cardiomyopathies Chronic systolic heart failure Insomnia Insomnia, unspecified Screening Screening for unspecified condition documented in this encounter
--- OUTSIDE RECORDS SUMMARY | 2023-12-11 18:50 | XMS_ITS | Encounter Summary ---
[place] [address] Care Team Providers Care Printer Floor Covering Assistant Name Role Phone Daquan Carrera MD Primary Care Provider [phone] Encounter Details Date Type Department Care Team (Late st Contact Info) Description 01/05/2010 [place] [address] Mary Perez APRN [address] [place] [address] Social History Tobacco Use Types Packs/Day Years [...] AM EST Hospital Encounter Non[place] [address] Arrived documented as of this encounter Procedures Procedure Name Priority Date/Time Associated Diagnosis Comments DIFFERENTIAL, AUTOMATED STAT 01/05/2010 9:26 AM EDT CBC (WITH DIFF) STAT 01/05/2010 9:26 AM EDT PRO-BRAIN NATRIURETIC PEPTIDE STAT 01/05/2010 9:26 AM EDT COMPREHENSIVE METABOLIC PANEL STAT 01/05/2010 9:26 AM EDT documented in this encounter Results * (ABNORMAL) COMPREHENSIVE METABOLIC PANEL (NON-FASTING) (01/05/2010 9:26 AM EDT) Glucose 84 <=199 mg/dL CERNER MILLENNIUM Comment:Diabetes: >=200 mg/d L plus symptoms Blood Urea Nitrogen 17 10 - 20 mg/dL CERNER MILLENNIUM Creatinine 0.78(L) 0.80 - 1.50 mg/dL CERNER MILLENNIUM Sodium 138 135 - 145 mmol/L CERNER [...] 9.5 8.5 - 10.5 mg/dL CERNER MILLENNIUM Protein, Total 6.8 6.4 - 8.3 gm/dL CERNER MILLENNIUM Albumin 4.3 3.2 - 5.2 gm/dL CERNER MILLENNIUM Aspartate Aminotransferase 17 0 - 39 unit/L CERNER MILLENNIUM Alanine Aminotransferase 19 0 - 55 unit/L CERNER MILLENNIUM Alkaline Phosphatase 56 40 - 120 unit/L CERNER MILLENNIUM Bilirubin, Total 1.2 0.2 - 1.3 mg/dL CERNER MILLENNIUM Bilirubin, [...] at steady-state (unchanged within the past week). ??Patient age > = 18 years, and for Americans multiply eGFR by 1.2. At present, NKDEP does NOT recommend using [...] disease. References: http://nkdep.nih.gov/resources/NKDEP_Suggestn4Labs_0606_508.pdf http://www.kidney.org/professionals/kls/pdf/faq_gfr.pdf Blood specimen (specimen) 01/05/2010 9:26 AM EDT 01/05/2010 10:06 AM EDT Mary Perez SENIOR QA ENGINEER CHEMISTRY ORDERABL ES Performing Organization Address City/[facility] Co de Phone Number [facility] * (ABNORMAL) BRAIN NATRIURETIC PEPTIDE (01/05/2010 9:26 AM EDT) NT-proBNP 200(H) <=125 pg/mL [facility] Blood specimen (specimen) 01/05/2010 9:26 AM EDT 01/05/2010 10:06 AM EDT Mary Perez SENIOR QA ENGINEER CHEMISTRY ORDERABL ES Performing Organization Address [facility]/State/ZIP Co de Phone Number [facility] * REFLEX LAB-A-DIFF (01/05/2010 9:26 AM EDT) Neutrophil % 56.0 34.0 - 71.0 % [facility] MILLENNIUM Neutrophil Absolute 4.87 1.50 - 6.30 x10(3)/mcL CERNER MILLENNIUM Lymph % 33.3 19.0 - 53.0 % CERNER MILLENNIUM Lymphocytes Abs 2.9 1.0 - 3.6 x10(3)/mcL CERNER MILLENNIUM Monocyte % 7.6 4.0 - 13.0 % CERNER MILLENNIUM Monocyte [...] metamyelocytes, myelocytes, and promyelocytes. Blood smears from CBC's yielding IG's will be scanned manually for concordance. If this scan disagrees with the automated IG or if promyelocytes are noted, a manual differential will be performed. Immature Gran Absolute 0.02 0.00 - 0.05 x10(3)/mcL CERNER MILLENNIUM Blood specimen (specimen) 01/05/2010 9:26 AM EDT 01/05/2010 10:06 AM EDT Mary Shashank Dalton SENIOR QA ENGINEER HEMATOLOGY ORDERAB LES [facility] * CBC (01/05/2010 9:26 AM EDT) White Blood Cell 8.7 4.0 - 10.0 x10(3)/mcL CERNER MILLENNIUM Red Blood Cell 5.34 4.63 - 6.08 x10(6)/mcL CERNER MILLENNIUM Hemoglobin 15.3 13.7 - 17.5 gm/dL CERNER MILLENNIUM Hematocrit 46.5 40.0 - 51.0 % CERNER MILLENNIUM Mean Cell Volume 87.1 79.0 - 92.0 fL CERNER MILLENNIUM Mean Cell Hemoglobin 28.7 25.6 - 32.2 pg CERNER MILLENNIUM Mean Cell Hemoglobin Concentration 32.9 32.0 - 36.5 gm/dL CERNER MILLENNIUM Platelet 202 145 - 370 x10(3)/mcL CERBAILEY ALCANTARAENNIUM RDW Standard Deviation 40.2 35.0 - 46.0 fL NELSON ALCANTARAENNIUM RDW coefficient of variation 12.6 10.9 - 14.4 % NELSON ALCANTARAENNIUM Mean Platelet Volume 10.8 9.0 - 12.0 fL NELSON ALCANTARAENNIUM Blood specimen (specimen) 01/05/2010 9:26 AM EDT 01/05/2010 10:06 AM EDT Mary Perez SENIOR QA ENGINEER HEMATOLOGY ORDERAB LES NELSON ONEILL documented in this encounter Visit Diagnoses Not on filedocumented in this encounter Care Teams Printer Floor Covering Assistant Relationship Specialty Start Date End Date Daquan Carrera MD [address] [place] [address] PCP - General 02/09/10 01/10/11 documented as of this encounter
--- OUTSIDE RECORDS SUMMARY | 2023-12-11 18:50 | XMS_ITS | Encounter Summary ---
[place] [address] Care Team Providers Care Sales Clerk Supervisor Name Role Phone Daquan Carrera MD Primary Care Provider [phone] Reason for Visit * Reason Onset Date Comments Medication Refill 07/14/2010 Encounter Details Date Type Department Care Team (Late st Contact Info) Description 07/14/2010 Refill Cardiology at [address] [phone] Mary Perez, TONGUE AND GROOVE MACHINE OPERATOR [address] [place] [address] Medication Refill Social History Tobacco Use Types Packs/Day Years Used Date Smoking Tobacco: Never Assessed Sex and Gender Information Value Date Recorded Sex Assigned at Not on file Gender Identity Not on file Sexual Orientation Not on file documented as of this encounter Miscellaneous Notes * Telephone Encounter - Cherelle Ding RN - 07/14/2010 4:32 PM EDT Attempted to call patient to notify him that [facility] will authorize only 30 tabs, no refills, will need to get future ambien scripts from PCP. No answer, left message requesting Jimmie return my call. 07/15: Spoke with Jimmie, notified him he will need to get future ambien from PCP, he said not a problem, has an appt. With PCP in July. documented in this encounter Plan of Treatment Upcoming Encounters Date Type Department Care Team (Late st Contact Info) Description 02/26/2024 10:00 AM EST Hospital Encounter [place] [address] Arrived documented as of this encounter Visit Diagnoses Diagnosis Insomnia- Primary Insomnia, unspecified documented in this encounter Care Teams Sales Clerk Supervisor Relationship Specialty Start Date End Date Daquan Carrera MD [address] [place] [id number] PCP - General 02/09/10 01/10/11 documented as of this encounter
--- OUTSIDE RECORDS SUMMARY | 2023-12-11 18:50 | XMS_ITS | Encounter Summary ---
Author [place] [address] Care Team Providers Care Mobile Application Architect Name Role Phone Daquan Carrera MD Primary Care Provider [phone] Reason for Visit * Reason Onset Date Comments Other 11/23/2010 Encounter Details Date Type Department Care Team (Late st Contact Info) Description 11/23/2010 Telephone Cardiology at [address] [phone] Mary Perez, FINANCE PROFESSOR [address] [place] [address] Other Social History Tobacco Use Types Packs/Day Years Used Date Smoking Tobacco: Never Assessed Sex and Gender Information Value Date Recorded Sex Assigned at Not on file Gender Identity Not on file Sexual Orientation Not on file documented as of this encounter Miscellaneous Notes * Telephone Encounter - Karishma Car - 11/23/2010 4:04 PM EDT Please sign attached for upcoming appointment. Thanks documented in this encounter Plan of Treatment Upcoming Encounters Date Type Department Care Team (Late st Contact Info) Description 02/26/2024 10:00 AM EST Hospital Encounter Non-In[place] [address] Arrived documented as of this encounter Results * Echocardiogram Complete (01/11/2011 10:41 AM EDT) EF 47 HEARTLAB SYSTEM Anatomical Region Laterality Modality Other 01/11/2011 Narrative 01/11/2011 11:02 AM EDT Procedure: ? Transthoracic Echocardiogram ? Patient: ? PORSCHE Mancilla ? (Age): 1945(65) Med Rec#: ?[id number] ?Sex: ?M ? [place] [place]Ht / Wt: 198(cm)/104(kg) Pt. Loc: ? Echo Lab ?BSA: ?2.39 Study Date: ?01/11/2011 ?Pt. Type: Outpatient Tape: ? Referring: Brady Ugarte Can Dryer: Gregor Waldron Diagnosis: ??Cardiomyopathy (425.4) CPT Code(s): ??Color Doppler (87992), ??Echo Full (63985), ??Spectral Doppler (24267), Indication(s): ??Congestive cardiomyopathy, F/U Rhythm: Sinus HR ?BP ?138/84 ?? SUMMARY: 1. Mild concentric left ventricular hypertrophy is observed. ??Global left ventricular systolic function is moderately reduced. ??The quantitative left ventricular ejection fraction is 47% by 3D (EPX=851 ml;ESV=85 ml). ??There is diffuse hypokinesis present. ??There is a left ventricular septal wall motion abnormality observed, possibly due to the presence of a left bundle branch block. 2. The left ventricular diastolic filling pattern is consistent with impaired LV relaxation. 3. The left atrium is mildly dilated. ??The right atrium is mildly dilated. 4. There is no hemodynamically significant valve disease. 5. There is mild dilatation of the aortic root. ??There is mild dilatation of the ascending aorta. 6. See remainder of report for additional findings. ?? FINDINGS: Left Ventricle ?The left ventricular chamber size is normal. ?Mild concentric left ventricular hypertrophy is observed. ?Global left ventricular systolic function is moderately reduced. ?The quantitative left ventricular ejection fraction is 47% by 3D (CYS=249 ml;ESV=85 ml). ?There is diffuse hypokinesis present. ?There is a left ventricular septal wall motion abnormality observed, possibly due to the presence of a left bundle branch block. ?The left ventricular diastolic filling pattern is consistent with impaired LV relaxation. ?The ??basal anteroseptal, basal anterior, basal anterolateral, basal inferolateral, basal inferior, basal inferoseptal, mid anteroseptal, mid anterior, mid anterolateral, mid inferolateral, mid inferior, mid inferoseptal, apical septal, apical anterior, apical lateral and apical inferior wall segments are hypokinetic. Left Atrium ?The left atrium is mildly dilated. Right Ventricle ?Right ventricular chamber size, wall thickness, and systolic function are within normal limits. ?Pulmonary artery hypertension could not be assessed due to inadequate tricuspid regurgitation jet. Right Atrium ?The right atrium is mildly [...] in structure and function. ?There is trace pulmonic regurgitation present. Pericardium ?The pericardium appears normal and there is no evidence of a pericardial effusion. Aorta ?There is mild dilatation of the aortic root. ?There is mild dilatation of the ascending aorta. Misc ?There is no hemodynamically significant valve [...] ? Mid-Inferior ?Hypokinetic ? Mid-Inferoseptal ?Hypokinetic ? [place]-Septal ? Hypokinetic ? [place]-Anterior ? Hypokinetic ? [place]-Lateral ?Hypokinetic ? [place]-Inferior ? Hypokinetic ? [place]-Tip ?Hypokinetic ? Chambers ?Value ?Units (Range) ? 3D LVEF ? 47 ? % ? 3D end di vol ? 162 ?ml ? 3D end sys vol ?85 ? ml ? IVSd 2D ? 1.3 ?cm ? LVIDd 2D ?4.9 ?cm ? PWd 2D ?1.3 ?cm ? LVIDs 2D ?3.5 ?cm ? LVFS 2D ? 29 ? % ? LA area ? 24 ? cm2 (<21) ? RA area ? 19 ? cm2 (<18) ? Ao root ? 4 ?cm (2.1 to 3.6) ? Asc Ao ?3.6 ?cm (2 to 3.5) ? Mitral Valve ?Value ?Units (Range) ? E peak ?0.5 ?m/sec ? E/A ratio ? 0.7 ?ratio ? MVDT ?371 ?msec ? E1 ?0.08 ? m/sec ? E/E1 ?6.3 ?ratio ? This report has been electronically signed by: Rony Francisco MD ? 01/11/2011 10:56:50 Images reviewed and interpretation verified [facility] Cardiac Ultrasound Laboratory Procedure Note Rony Francisco MD - 01/11/2011 Procedure: Transthoracic Echocardiogram Patient: PORSCHE ROBERTS(Age): 1945(65) Med Rec#: [id number] Sex: M [place] [facility] [place] Ht / Wt: 198(cm)/104(kg) Pt. Loc: Echo Lab BSA: 2.39 Study Date: 01/11/2011 Pt. Type: Outpatient Tape: Referring: Brady Ugarte Can Dryer: Gregor Waldron Diagnosis: Cardiomyopathy (425.4) CPT Code(s): Color Doppler (98744), Echo Full (46750), Spectral Doppler (82298), Indication(s): Congestive cardiomyopathy, F/U Rhythm: Sinus HR BP 138/84 SUMMARY: 1. Mild concentric left ventricular hypertrophy is observed. Global left ventricular systolic function is moderately reduced. The quantitative left ventricular ejection fraction is 47% by 3D (IQI=481 ml;ESV=85 ml). There is diffuse hypokinesis present. [...] ventricular ejection fraction is 47% by 3D (VQB=217 ml;ESV=85 ml). There is diffuse hypokinesis present. There is a left ventricular septal wall motion abnormality observed, possibly due to the presence of a left bundle branch block. The left ventricular diastolic filling pattern is consistent with impaired LV relaxation. The basal anteroseptal, basal anterior, basal anterolateral, basal inferolateral, basal inferior, basal inferoseptal, mid anteroseptal, mid anterior, mid anterolateral, mid inferolateral, mid inferior, mid inferoseptal, apical septal, apical anterior, apical lateral and apical inferior wall segments are hypokinetic. Left Atrium The left atrium is mildly dilated. Right Ventricle Right ventricular chamber size, wall thickness, and systolic function are within normal limits. Pulmonary artery hypertension could not be assessed due to inadequate tricuspid regurgitation jet. Right Atrium The right atrium is mildly [...] in structure and function. There is trace pulmonic regurgitation present. Pericardium The pericardium appears normal and there is no evidence of a pericardial effusion. Aorta There is mild dilatation of the aortic root. There is mild dilatation of the ascending aorta. Misc There is no hemodynamically significant valve disease. See remainder of report for additional findings. Two-dimensional echo, spectral Doppler and color Doppler performed. Wall Motion: Segment Name Rest Base-Anteroseptal Hypokinetic Base-Anterior Hypokinetic Base-Anterolateral Hypokinetic Base-Posterolateral Hypokinetic Base-Inferior Hypokinetic Base-Inferoseptal Hypokinetic Mid-Anteroseptal Hypokinetic Mid-Anterior Hypokinetic Mid-Anterolateral Hypokinetic Mid-Posterolateral Hypokinetic Mid-Inferior Hypokinetic Mid-Inferoseptal Hypokinetic [place]-Septal Hypokinetic [place]-Anterior Hypokinetic [place]-Lateral Hypokinetic [place]-Inferior Hypokinetic [place]-Tip Hypokinetic Chambers Value Units (Range) 3D LVEF 47 % 3D end di vol 162 ml 3D end sys vol 85 ml IVSd 2D 1.3 cm LVIDd 2D 4.9 cm PWd 2D 1.3 cm LVIDs 2D 3.5 cm LVFS 2D 29 % LA area 24 cm2 (<21) RA area 19 cm2 (<18) Ao root 4 cm (2.1 to 3.6) Asc Ao 3.6 cm (2 to 3.5) Mitral Valve Value Units (Range) E peak 0.5 m/sec E/A ratio 0.7 ratio MVDT 371 msec E1 0.08 m/sec E/E1 6.3 ratio This report has been electronically signed by: Rony Francisco MD 01/11/2011 10:56:50 Images reviewed and interpretation verified [facility] Cardiac Ultrasound Laboratory Brady Ugarte MD ECHO ORDERABLES documented in this encounter Visit Diagnoses Diagnosis Other primary cardiomyopathies- Primary Other primary cardiomyopathies documented in this encounter Care Teams Mobile Application Architect Relationship Specialty Start Date End Date Daquan Carrera MD [address] [place] [address] PCP - General 02/09/10 01/10/11 documented as of this encounter
--- OUTSIDE RECORDS SUMMARY | 2023-12-11 18:50 | XMS_ITS | Encounter Summary ---
[place] [address] Care Team Providers Care Fiscal Specialist Name Role Phone Daquan Carrera MD Primary Care Provider [phone] Reason for Visit * Reason Onset Date Comments Other 01/06/2011 Lab Orders Encounter Details Date Type Department Care Team (Late st Contact Info) Description 01/06/2011 Telephone Cardiology at [address] [phone] Mary Perez, TIRE MOUNTER [address] [place] [address] Other (Lab Orders) Social History Tobacco Use Types Packs/Day Years Used Date Smoking Tobacco: Never Assessed Sex and Gender Information Value Date Recorded Sex Assigned at Not on file Gender Identity Not on file Sexual Orientation Not on file documented as of this encounter Miscellaneous Notes * Telephone Encounter - Anette Pope - 01/06/2011 1:36 PM EDT Please sign the attached orders for an upcoming appointment. documented in this encounter Plan of Treatment Upcoming Encounters Date Type Department Care Team (Late st Contact Info) Description 02/26/2024 10:00 AM EST Hospital Encounter Non[place] [phone] Arrived documented as of this encounter Results * Uric acid (01/11/2011 8:56 AM EDT) Uric Acid 6.3 3.5 - 8.5 mg/dL CERNER MILLENNIUM Blood specimen (specimen) 01/11/2011 8:56 AM EDT 01/11/2011 9:05 AM EDT Brady Ugarte MD CHEMISTRY ORDERABLES Performing Organization Address City/[facility]/ZIP Co de Phone Number [facility] * pro-Brain Natriuretic Peptide (01/11/2011 8:56 AM EDT) NT-proBNP 63 <=125 pg/mL CERNER MILLENNIUM Blood specimen (specimen) 01/11/2011 8:56 AM EDT 01/11/2011 9:05 AM EDT Brady Ugarte MD CHEMISTRY ORDERABLES Performing Organization Address City/State/[facility] Co de Phone Number [facility] MILL[facility] * CBC (with Diff) (01/11/2011 8:56 [...] HEMATOLOGY ORDERABLE S CERNER MILLENNIUM * (ABNORMAL) Comprehensive metabolic panel (non-fasting) (01/11/2011 [...] AM EDT Brady Ugarte MD CHEMISTRY ORDERABLES [facility] * Lipid panel (fasting) (01/11/2011 8:56 AM EDT) [facility] Cholesterol, Total 156 <=199 mg/dL NELSON ONEILL Comment: Recommendations of the NCEP Adult Treatment Panel for the following risk cutoff thresholds for the [place] population: Desirable: <200 mg/dL Borderline High: 200-239 mg/dL High: > or = 240 mg/dL Triglyceride 120 <=149 mg/dL NELSON ONEILL Comment: Reference Range: Normal triglycerides: ??<150 mg/dL Borderline high: ??150-199 mg/dL High: ??200-499 mg/dL Very high: ??>zk=381 mg/dL DEBBIE 2001; 285(19):9426-1278 HDL Cholesterol 48 >=40 mg/dL CER NER MILLENNIUM Comment: Reference range: ??Low HDL: ?? < 40 mg/dL ??Normal: ?40-60 mg/dL ??Desirable: > 60 mg/dL DEBBIE 2001; 285(19):2204-0524 LDL Cholesterol 84 <=99 mg/dL CER NER MILLENNIUM Comment: Reference range: ?? Optimal: ?<100 mg/dL ?? Near Optimal/Above Optimal: ?? 100-129 mg/dL ?? Borderline high: ?130-159 mg/dL ?? High: ? 160-189 mg/dL ?? Very high: ?>sx=753 mg/dL DEBBIE 2001: 285(19):3620-2280 Cholesterol/HDL Ratio 3.[address] [facility] Comment: A Cholesterol to HDL ratio below 4:1 is desirable. ??Studies suggest that increased CAD risk occurs at ratios above 5 for females and above 6 for men. ? [place] [employer] Association ??(http://www.americanheart.org) ? Mary Ellen Int Med, 1994; 121:641 ? AM J Med, 1998; 105(1A):48S Blood specimen (specimen) 01/11/2011 8:56 AM EDT 01/11/2011 9:05 AM EDT Brady Ugarte MD CHEMISTRY ORDERABLES [facility] documented in this encounter Visit Diagnoses Diagnosis Other primary cardiomyopathies Chronic systolic heart failure Other and unspecified hyperlipidemia documented in this encounter Care Teams Fiscal Specialist Relationship Specialty Start Date End Date Daquan Carrera MD [address] [place] [address] PCP - General 02/09/10 01/10/11 documented as of this encounter
--- OUTSIDE RECORDS SUMMARY | 2023-12-11 18:50 | XMS_ITS | Encounter Summary ---
[place] [address] Care Team Providers Care Office Machine Punch Operator Name Role Phone Unavailable Primary Care Provider Unavailabl e Encounter Details Date Type Department Care Team (Latest Contact Info) Description 01/11/2011 9:43 AM EDT - 01/11/2011 11:59 PM EDT Hospital Encounter Non-Invasive [place] [address] Other primary cardiomyopathies Social History Tobacco Use [...] 01/11/2012 Carvedilol Phosphate (COREG CR) 40 mg [id number]:Chronic systolic heart failure Take 40 mg by mouth daily. 90 mg 3 01/11/2011 01/11/2012 documented as of this encounter Plan of Treatment Upcoming Encounters Date Type Department Care Team (Late st Contact Info) Description 02/26/2024 10:00 AM EST Hospital Encounter Non-Invasive [place] [address] Arrived documented as of this encounter Procedures Procedure Name Priority Date/Time Associated Diagnosis Comments ECHOCARDIOGRAM TRANSTHORACIC Routine 01/11/2011 10:41 AM EDT Other primary cardiomyopathies documented in this encounter Results * Echocardiogram Complete (01/11/2011 10:41 AM EDT) EF 47 HEARTLAB SYSTEM Anatomical Region Laterality Modality Other 01/11/2011 Narrative 01/11/2011 11:02 AM EDT Procedure: ? Transthoracic Echocardiogram ? Patient: ? PORSCHE TOBIAS Charo ? (Age): 1945(65) Med Rec#: ?[id number] ?Sex: ?M ? Site Loc: ?[facility] [place] ?Ht / Wt: 198(cm)/104(kg) Pt. Loc: ? Echo Lab ?BSA: ?2.39 Study Date: ?01/11/2011 ?Pt. Type: Outpatient Tape: ? Referring: Brady Ugarte Recorder Gravity Prospecting: Gregor Waldron Diagnosis: ??Cardiomyopathy (425.4) CPT Code(s): ??Color Doppler (02858), ??Echo Full (80649), ??Spectral Doppler (54163), Indication(s): ??Congestive cardiomyopathy, F/U Rhythm: Sinus HR ?BP ?138/84 ?? SUMMARY: 1. Mild concentric left ventricular hypertrophy is observed. ??Global left ventricular systolic function is moderately reduced. ??The quantitative left ventricular ejection fraction is 47% by 3D (CPP=752 ml;ESV=85 ml). ??There is diffuse hypokinesis present. [...] ventricular ejection fraction is 47% by 3D (XUR=268 ml;ESV=85 ml). ?There is diffuse hypokinesis present. [...] ? Mid-Inferior ?Hypokinetic ? Mid-Inferoseptal ?Hypokinetic ? [place]-Septal ? Hypokinetic ? [place]-Anterior ? Hypokinetic ? [place]-Lateral ?Hypokinetic ? [place]-Inferior ? Hypokinetic ? [place]-Tip ?Hypokinetic ? Chambers ?Value ?Units (Range) ? [...] 10:56:50 Images reviewed and interpretation verified [facility] Cardiac Ultrasound Laboratory Procedure Note Rony Francisco MD - 01/11/2011 Procedure: Transthoracic Echocardiogram Patient: PORSCHE ROBERTS(Age): 1945(65) Med Rec#: [id number] Sex: M Site Loc: [facility] [place] Ht / Wt: 198(cm)/104(kg) Pt. Loc: Echo Lab BSA: 2.39 Study Date: 01/11/2011 Pt. Type: Outpatient Tape: Referring: Brady Ugarte Recorder Gravity Prospecting: Gregor Waldron Diagnosis: Cardiomyopathy (425.4) CPT Code(s): Color Doppler (86833), Echo Full (88467), Spectral Doppler (52691), Indication(s): Congestive cardiomyopathy, F/U Rhythm: Sinus HR BP 138/84 SUMMARY: 1. Mild concentric left ventricular hypertrophy is observed. Global left ventricular systolic function is moderately reduced. The quantitative left ventricular ejection fraction is 47% by 3D (GSC=302 ml;ESV=85 ml). There is diffuse hypokinesis present. [...] ventricular ejection fraction is 47% by 3D (JZZ=321 ml;ESV=85 ml). There is diffuse hypokinesis present. [...] Hypokinetic Mid-Posterolateral Hypokinetic Mid-Inferior Hypokinetic Mid-Inferoseptal Hypokinetic [place]-Septal Hypokinetic [place]-Anterior Hypokinetic [place]-Lateral Hypokinetic [place]-Inferior Hypokinetic [place]-Tip Hypokinetic Chambers Value Units (Range) 3D LVEF [...] 10:56:50 Images reviewed and interpretation verified [facility] Cardiac Ultrasound Laboratory Brady Ugarte MD ECHO ORDERABLES documented in this encounter Visit Diagnoses Diagnosis Other primary cardiomyopathies documented in this encounter
--- OUTSIDE RECORDS SUMMARY | 2023-12-11 18:50 | XMS_ITS | Encounter Summary ---
Author Organization [facility] [place] [address] Care Team Providers Care Saw Runner Name Role Phone Carlos Valdez MD Primary Care Provider [phone] Encounter Details Date Type Department Care Team (Latest Contact Info) Description 03/31/2011 9:40 AM EST - 03/31/2011 1:45 PM EST Hospital En[place] [address] Laurent Hawkins MD [facility] [place] [address] Discharge Disposition: Home Social History Tobacco Use [...] - 03/31/2011 1:14 PM EST Please call [phone], before 5pm with problems, questions or concerns, after 5pm call the Hospital at [phone] and ask to speak to the Multimedia Services Manager change control analyst and the facial operator will contactthat person for you. Discharge instructions reviewed with patient who expresses understanding. * Patient Instructions* Laurent Hawkins MD - 03/31/2011 12:23 PM EST Please see Recommendations in the Provation procedure report which is documented in the procedural note in [facility]. * Attachments The following attachments cannot be sent through Care Everywhere. * COLONOSCOPY: WHAT TO EXPECT AT HOME (KOSOVAN) documented in this encounter Medications at Time [...] 01/11/2012 Carvedilol Phosphate (COREG CR) 40 mg [id number]:Chronic systolic heart failure Take 40 mg by [...] AM EST Hospital Encounter Non-[place] [address] Arrived documented as of this encounter Procedures Procedure Name Priority Date/Time Associated Diagnosis Comments COLONOSCOPY, DIAGNOSTIC (WRVU 3.26) 03/31/2011 12:19 PM EST SCREENING COLONOSCOPY Routine 03/31/2011 12:11 PM EST documented in this encounter Results * COLONOSCOPY (03/31/2011 12:11 PM EST) COLONOSCOPY [facility] Endoscopy Patient Name: Jimmie Mccauley ? Procedure Date: 03/31/2011 12:11 PM ? Date of : 1945 ? Age: 65 ? Order #: [id number] ? Procedure: ? Colonoscopy Indications: ? Screening [...] MAR Action Action Date Dose Rate Site sodium chloride 0.9% infusion 30 mL/hr, Intravenous, [...] Ragini Pacheco RN)[id number] (Given - Provider: Ragini Pacheco, JIM) midazolam (VERSED) injection (CANCELED) ONCE PRN, Starting [...] RN) documented in this encounter Care Teams Saw Runner Relationship Specialty Start Date End Date Carlos Valdez MD [address] [place] [address] PCP - General 03/25/11 08/07/22 documented as of this encounter
[2023-12-11 21:57] LABS: HCT 50.9 % (40.0-50.0); HGB 16.9 g/dL (13.5-17.5); MCH 28.9 pg (27.0-33.0); MCHC 33.2 % (32.0-36.0); MCV 87 fL (80-95); Platelet Count 216 10^3/uL (130-400); RBC 5.84 10^6/uL (4.36-5.78); RDW 12.3 % (11.8-14.1); RDW-SD 39.1 fL
[2023-12-11 22:21] LABS: ALT 17 U/L (16-63); AST 15 U/L (15-37); Albumin 3.7 g/dL (3.4-5.0); Alkaline Phosphatase 68 U/L (46-116); Anion Gap 7.1 mmol/L (3-11); BUN 15 mg/dL (7-18); Bilirubin, Total 1.54 mg/dL (0.2-1.0); CO2 27.9 mmol/L (21.0-32.0); CREATININE 0.9 mg/dL (0.70-1.30); Calcium 9.7 mg/dL (8.5-10.1); Calculated LDL 91 mg/dL (<100); Chloride 104 mmol/L (98-107); Cholesterol 176 mg/dL (<200); Estimated GFR 87.42 (mL/min/1.73m2); Glucose 81 mg/dL (74-106); HDL Cholesterol 48 mg/dL (40-60); Potassium 4.4 mmol/L (3.5-5.1); Sodium 139 mmol/L (136-145); TSH (W/Ref FT4) 2.74 uIU/mL (0.36-3.74); Total Protein 6.7 g/dL (6.4-8.2); Triglyceride 187 mg/dL (<150)
[2023-12-11 22:43] LABS: Hemoglobin A1C 5.4 % (<5.7)
[2023-12-12 18:47] LABS: HIV-1/2 Ag & Ab Screen Negative (Negative)
[2023-12-12 18:48] LABS: Hepatitis C Ab w Rflx HCV PCR Negative (Negative)
== END 2023-12-11 18:40 | disposition home or self-care (01) ==
LOC: NCHCN 18:39
PROVIDERS: PCP Nurse Practitioner Family; Visit Provider Nurse Practitioner Family
DX: R63.4 Abnormal weight loss; Z11.4 Encounter for screening for human immunodeficiency virus [HIV]; Z11.59 Encounter for screening for other viral diseases
CPT/HCPCS: 80053; 80061; 85027; 86803; 87389; 83036; 84443

== ENCOUNTER 2024-01-08 21:46 | Outpatient (REF) | payer MEDICARE, SELFPAY ==
[2024-01-08 22:19] LABS: HCT 49.3 % (40.0-50.0); HGB 16.5 g/dL (13.5-17.5); MCH 29.2 pg (27.0-33.0); MCHC 33.5 % (32.0-36.0); MCV 87 fL (80-95); MPV 10.6 fL (8.0-11.0); Platelet Count 229 10^3/uL (130-400); RBC 5.65 10^6/uL (4.36-5.78); RDW 12.2 % (11.8-14.1); RDW-SD 38.9 fL; WBC 9.23 10^3/uL (4.4-10.8)
[2024-01-08 22:37] LABS: ALT 22 U/L (16-63); AST 18 U/L (15-37); Albumin 3.7 g/dL (3.4-5.0); Alkaline Phosphatase 69 U/L (46-116); Anion Gap 9.6 mmol/L (3-11); BUN 15 mg/dL (7-18); Bilirubin, Total 1.57 mg/dL (0.2-1.0); CO2 27.4 mmol/L (21.0-32.0); CREATININE 0.9 mg/dL (0.70-1.30); Calcium 9.7 mg/dL (8.5-10.1); Chloride 106 mmol/L (98-107); Estimated GFR 87.42 (mL/min/1.73m2); Glucose 78 mg/dL (74-106); Potassium 4.7 mmol/L (3.5-5.1); Sodium 143 mmol/L (136-145); TSH (W/Ref FT4) 3.38 uIU/mL (0.36-3.74); Total Protein 6.7 g/dL (6.4-8.2)
== END 2024-01-08 21:47 | disposition home or self-care (01) ==
LOC: LBN 21:46
PROVIDERS: PCP Nurse Practitioner Family; Visit Provider Nurse Practitioner Family
DX: R63.4 Abnormal weight loss (principal)
CPT/HCPCS: 80053; 85027; 84443

== ENCOUNTER 2024-01-15 01:03 | Outpatient (CLI) | payer MEDICARE, SELFPAY ==
--- NOTE | 2024-01-15 07:44 | DI.CT_ITS ---
Exam(s) CT CHEST/ABD/PEL W EXAM: CT CHEST/ABD/PEL W CLINICAL HISTORY: unintentional wt loss,r63.4. TECHNIQUE: Imaging Protocol: Axial computed tomography images with coronal and sagittal reformatted images were created and reviewed. Computer aided detection (CAD) was utilized. CONTRAST MATERIAL: Intravenous: Omnipaque 350 Contrast volume:85 ml Oral: yes / COMPARISON: CT CT ABDOMEN PELVIS WO/W from 01/17/2020 FINDINGS: CHEST: Tracheobronchial tree: Patent. Pulmonary parenchyma: No consolidation or dominant measurable mass. Mild atelectasis of the right esteban ng base and lingula. Pleura: No effusion or pneumothorax. Mediastinum: Within normal limits. Aorta: Thoracic portion non-dilated. Pulmonary arteries: No visible emboli. Heart: Enlarged. Coronary artery calcifications. Atrial appendage occlusion device. No pericardi al effusion. Bones: Unremarkable for age. No lytic or blastic lesions.No compression fractures. Soft tissues: Pacemaker over left pectoral muscle. Bilateral gynecomastia. ABDOMEN and PELVIS: Liver: Normal density. No measurable mass. Gallbladder and biliary tract: No evidence of stones or wall thickening. No biliary dilatation. Pancreas: Normal density, no abnormal calcifications or inflammatory process. Spleen: Normal. Kidneys: Normal size, contour and axis. No radiodense stones. No obstructive uropathy. No suspicious masses seen. Adrenal glands: No masses seen. Aorta: Abdominal portion non-dilated. Atherosclerotic changes peer. Aneurysm of the distal right usama ac artery measuring 3.4 cm. Mural thrombus. Lymph nodes: Within normal limits. Soft tissues: Unremarkable. Bladder: Unremarkable. Bowel: Extensive diverticulosis lower descending colon. Redundant colon. Normal quantity of stool.. No visible mass. Wall thickening or inflammatory changes. Peritoneal cavity: No ascites. No focal collection. No mesenteric inflammatory response. No free ai r. Bones: Scoliosis and degenerative changes. Bone island left ilium. Reproductive organs: Prostate mildly enlarged. IMPRESSION: No acute abnormality in the chest, abdomen or pelvis. 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 Extensive diverticulosis lower descending colon. No evidence of diverticulitis. RADIATION DOSE DELIVERED: 562.63mGy.cm Total DLP DATA REPOSITORY: All CT scans at this facility are submitted to the National Radiology Data Registry (NRDR) Dose Index Registry (DIR) with the [employer] (ACR). RADIATION OPTIMIZATION: All CT scans at this facility use at least one of these dose optimization te chniques: automated exposure control; mA and/or kV adjustment per patient size (includes targeted exa ms where dose is matched to clinical indication); or iterative reconstruction.
[2024-01-15] MEDS: Barium Sulfate 2% W/V-Creamy Vanilla Smoothie 450 ML BTL PO ×2 (11:45→11:46)
[2024-01-15] MEDS: Normal Saline - Diluent 50 ML VIAL IJ (13:54)
[2024-01-15] MEDS: Omnipaque 350 MG/ML 100 ML BTL IJ (13:55)
== END 2024-01-15 01:23 ==
LOC: DI 01:03
PROVIDERS: PCP Nurse Practitioner Family; Visit Provider Nurse Practitioner Family
DX: I72.3 Aneurysm of iliac artery (principal)
CPT/HCPCS: 74177; 71260; J3490

== ENCOUNTER → 2024-02-20 09:46 | Outpatient (BNVA) | payer MEDICARE, SELFPAY | PROVIDERS: PCP Nurse Practitioner Family; Referring Provider Nurse Practitioner Family; Visit Provider Urology ==

== ENCOUNTER 2024-02-20 11:33 | Outpatient (CLI) | payer MEDICARE, SELFPAY ==
[2024-02-20 22:14] LABS: PSA, Diagnostic 0.6 ng/mL (<=6.5)
== END 2024-02-20 11:34 | disposition home or self-care (01) ==
LOC: LOS 11:34
PROVIDERS: PCP Nurse Practitioner Family; Visit Provider Urology
DX: N40.1 Benign prostatic hyperplasia with lower urinary tract symptoms (principal); R31.9 Hematuria, unspecified
CPT/HCPCS: 36415; 81003; 99214; 84153

== ENCOUNTER 2024-06-28 06:33 | Day surgery (SDC) | payer MEDICARE, SELFPAY ==
--- NOTE | 2024-06-28 06:19 | ANES.PREOP_ITS ---
General Info Date of Service Date Performed: 06/28/24 Height: 6 ft 6 in Weight: 112.037 kg Body Mass Index (BMI): 28.5 Surgical Procedure: Operation Date: 06/28/24 08:40 Proposed Procedure Side Surgeon p Cataract Extraction with IOL Implant Right Kirit Bhardwaj MD Meds Allergies and Home Medications Allergies Allergy/AdvReac Type Severity Reaction Status Date / Time furosemide Allergy Mild Hives Verified 06/28/24 07:26 lisinopril Allergy Unknown SKIN RASH Verified 06/28/24 07:26 Home Medication ?Medication ?Instructions ?Recorded aspirin,buffered (calcium 325 mg PO DAILY #90 tabs 07/30/12 carbonate-magnesium) 325 mg tablet glucosamine 750 ol-zhsceqsfax-mml 1 ea PO DAILY 07/30/12 no.1 625 mg-C 30 cy-zikc-kwar tablet multivitamin (One Daily tablet) 1 ea PO DAILY 07/30/12 loratadine 10 mg tablet 10 mg PO DAILY PRN allergy 03/01/22 symptoms #30 tabs zolpidem 10 mg tablet (Ambien) 10 mg PO HS PRN insomnia #90 03/01/22 tab-caps docusate sodium 100 mg capsule 100 mg PO DAILY #90 caps 08/23/23 cyclobenzaprine 10 mg tablet 10 mg PO TID PRN muscle spasm #30 02/13/24 tabs finasteride 5 mg tablet 5 mg PO DAILY prostate #90 tabs 04/18/24 metoprolol succinate 50 mg 50 mg PO DAILY #90 tabs 05/06/24 tablet,extended release 24 hr pravastatin 20 mg tablet 20 mg PO DAILY #90 tab-caps 05/06/24 gabapentin 300 mg capsule See Rx Instructions .Route 05/21/24 .COMPLEX #90 caps hydrocodone 7.5 mg-acetaminophen 1 tab PO BID PRN pain #60 tabs 05/28/24 325 mg tablet amlodipine 5 mg tablet 5 mg PO DAILY #90 tabs 06/03/24 losartan 100 mg tablet 100 mg PO DAILY #90 tabs 06/03/24 Current Visit Medications: Current Medications Generic Name Dose Route Start Last Admin Trade Name Freq PRN Reason Stop Dose Admin Acetaminophen 1,000 mg 06/28/24 06:15 Acetaminophen 500 Mg Tab PO 07/28/24 06:14 Q4H PRN PRN Balanced Salt Solution 500 ml 06/28/24 06:15 Balanced Salt Soln.-Plus 500 Ml Bag OP 07/28/24 06:14 DIRECTED [facility] Miscellaneous Medication 0 ml 06/28/24 06:15 Prednisolone 1%, Moxifloxacin 0.5%, Bromfenac 0.09% 5.6ml Btl OD 07/28/24 06:14 DIRECTED SH[facility] Miscellaneous Medication 0 ml 06/28/24 06:15 Tropicam./Phenyleph. (1/2.5%) 5 Ml Btl OD 07/28/24 06:14 DIRECTED [facility] Tetracaine HCl 0 ml 06/28/24 06:15 Tetracaine 0.5% 4 Ml Btl OD 07/28/24 06:14 DIRECTED SH[facility]DA PFSH Active Problems Active Problems: Problem Status Onset Code Cortical age-related cataract, right eye Acute H25.011 Aneurysm of right iliac artery Acute I72.3 Unintentional weight loss Acute R63.4 Presence of Watchman left atrial appendage closure device Acute Z95.818 Primary osteoarthritis of right hip Acute M16.11 Fatigue Acute R53.83 Complete heart block Acute I44.2 Bradycardia Acute R00.1 Non-ischemic cardiomyopathy Chronic I42.8 ICD (implantable cardioverter-defibrillator), biventricular, in situ Chronic Z95.810 Chronic pain syndrome Chronic G89.4 Insomnia Chronic G47.00 Cardiac dysrhythmia, unspecified Acute I49.9 Coronary atherosclerosis of [place] coronary vessel Chronic I25.10 Essential hypertension Chronic 02/28/13 I10 Hearing loss Chronic H91.90 Hyperlipidemia Chronic E78.5 Idiopathic peripheral neuropathy Chronic 10/06/17 G60.9 Medical History Medical History (Updated 06/27/24 @ 21:07 by Kirit Bhardwaj MD) Pacemaker Hx-sudden cardiac arrest Per [facility] note: Probably bradycardic induced, presenting with symptomatic CHB, and requiring defibrillation 05/2012 Hx pulmonary embolism per [facility] 2012 History of pericarditis per [facility] note 2013 post DDD pacer implant Painless hematuria Followed by urology History of tobacco use Quit 25 years ago SBO (small bowel obstruction) Surgical History Surgical History Hx of colonoscopy Status post tonsillectomy (03/03/15) Tobacco Smoking/Tobacco Use Status: Former Tobacco Use Passive smoking exposure: No Second hand exposure: Yes Alcohol Alcohol Intake: current Alcohol intake frequency: 0-2 drinks per day Alcohol type: beer and hard liquor Substance Use Substance use: Rarely Substance use type: marijuana Vital Signs and Lab Results Lab Results Blood Type / Crossmatch: No Data to Display Complete Blood Count: No Data to Display Complete Metabolic Panel: No Data to Display Liver Function Panel: No Data to Display Coagulation Panel: No Data to Display Cardiac Panel: No Data to Display Arterial Blood Gas: No Data to Display Venous Blood Gas: No Data to Display Pancreas Panel: No Data to Display Thyroid Panel: No Data to Display Infectious Disease: No Data to Display Blood Cultures: No Data to Display Toxicology Panel: No Data to Display Anesthesia Assessment and Plan Anesthesia History Personal History: No History of Anesthesia Complications Family History: No Family History of Anesthesia Complications Exercise Tolerance Exercise Tolerance: Metabolic Equivalents>4 Cardiac & Pulmonary Exam Cardiac Exam: Normal S1/S2 Heart Sounds Pulmonary Exam: Clear Bilateral Breath Sounds Implantable Cardiac Device Does patient have a Pacemaker or an ICD?: Yes Device Produce Department Supervisor:: [place] Reason for Placement:: [facility] Date of Last Device Interrogation:: 04/01/24 Airway Exam Known Difficult Airway: No Mallampati Class: 4 Mouth Opening: Narrow (< 3cm) Thyromental Distance: Greater than 3 cm Neck Range of Motion: Full ROM Neck Circumference: Normal Teeth Condition: Generalized Poor Dentition (Multiple missing and broken teeth) ASA Classification ASA Score: ASA 3 Emergency Case?: No NPO Status NPO Status: NPO Clears >2 hours, Solids >8 hours Anesthesia Plan Resuscitation Status: Full Code Anesthesia Technique: MAC Anesthesia Airway Planned: Natural Airway Monitors Used: Standard Monitors Preoperative Comments:: 79 yo male for cataract removal. Sig PMHx: HTN, CAD, heart block, cardiomyopathy (ICD, BiV pacer), neuropathy. occ EtOH/cannabis. ECG: sinus. conduction delay. ECHO: LVEF 60%, no sig valve issues. Previous Anes: - colo, prop, natural airway, no issues. Discussed plan of MAC, would like MKO.
[2024-06-28 06:45] VITALS: BP 135/88; PULSE 63; RESP 16; TEMP 36.2; O2SAT 96
[2024-06-28] MEDS: Tropicam./Phenyleph. (1/2.5%) 5 ML BTL OD ×3 (07:15→07:25)
[2024-06-28 07:27] VITALS: BMI 28.5
[2024-06-28] MEDS: Tetracaine 0.5% 4 ML BTL (08:16)
[2024-06-28] MEDS: Povidone-Iodine Ophth 30 ML BTL (08:17)
[2024-06-28] MEDS: Balanced Salt Soln.-PLUS 500 ML BAG OP (08:23)
[2024-06-28] MEDS: Phenylephrine/Lidocaine (15/10) MG/ML 1 ML VIAL (08:23)
[2024-06-28] MEDS: Lidocaine 1% Pres-Free 5 ML VIAL (08:23)
[2024-06-28] MEDS: Duovisc Viscoelastic System EACH 1 EACH (08:23)
[2024-06-28] MEDS: Prednisolone 1%, Moxifloxacin 0.5%, Bromfenac 0.09% 5.6ML BTL 5.6 ML (08:37)
[2024-06-28] MEDS: Moxifloxacin-PF 1 MG/ML VIAL (08:37)
[2024-06-28 08:43] VITALS: BP 133/79; PULSE 64; RESP 16; TEMP 36.4; O2SAT 98
--- NOTE | 2024-06-28 08:46 | ROE_ITS ---
Operative Note Operative Note PRE-OP DIAGNOSIS: Nuclear cataract, right eye POST-OP DIAGNOSIS: same PROCEDURE: Cataract extraction using phacoemulsification with intraocular lens implant, right eye SURGEON: Kirit Bhardwaj ANESTHESIA TYPE: Local By Surgeon and MAC Refer to Anesthesia Record ESTIMATED BLOOD LOSS: 0 PATHOLOGY: none sent COMPLICATIONS: None Patient was transported to: same day Patient's condition: stable Implants: Brendan Clareon [id number] Indications: Progressive decreased vision due to cataract, right eye Procedure Description: CATARACT SURGERY OPERATIVE REPORT PREOPERATIVE DIAGNOSIS: Nuclear cataract, right eye POSTOPERATIVE DIAGNOSIS: Same OPERATION: Cataract extraction using phacoemulsification with posterior chamber intraocular lens implant, right eye. IOL: IOL Packer Inspector/Model: Brendan Clareon [id number] IOL Power: + 22.5 diopters IOL Serial Number: [id number] Optic Diameter: 6.0mm Haptic/Overall Diameter: 13.0mm PHACO INFO: Brendan Centurion Vision System with OZil and Active Fluidics Cumulative Dispersed Energy (CDE): 6.17 seconds SURGEON: Kirit Bhardwaj MD, GHADA ANESTHESIA: Monitored Anesthesia Care (MAC), with local sub-tenon's anesthetic infiltration COMPLICATIONS: None SPECIMENS: None INDICATIONS FOR PROCEDURE: The patient is a 79-year-old male with history of diminished visual acuity in his right eye secondary to the development of nuclear cataract. He is significantly symptomatic that he desires cataract surgery in attempt to improve and maximize his vision. The option of cataract surgery was offered to the patient and he wished to proceed. See office notes for detailed information. PROCEDURE: The correct surgical eye was identified and marked as the right eye and the pupil was dilated in the preoperative area using mydriatics and cycloplegics. The dilated pupil size was 6.0 mm. Oral sedation was administered in the form of an Imprimis MKO Melt (midazolam 3mg/ketamine 25mg/ondansetron 2mg). The patient was brought to the operating room where cardiopulmonary monitoring was instituted and surgical time-out was performed, confirming the correct operative eye and IOL power. Topical anesthesia was administered and ophthalmic povidone-iodine 5% was instilled into the conjunctival fornices. The yudelka-ocular area was prepped with Betadine 10% solution and draped in the usual sterile fashion for intraocular surgery, including an aperture drape. A Tegaderm transparent film dressing was cut in half and used to cover the lashes and lid margins. Care was taken to sequester the lashes and lid margins under the Tegaderm dressing. A lid speculum was placed between the lids of the operative eye and the Brendan LuxOR Revalia operating microscope was maneuvered into position. Ariel scissors were then used to make a conjunctival buttonhole approximately 6mm posterior to the limbus in the inferonasal quadrant. Blunt dissection was carried out to expose bare sclera, and a blunt-tipped sub-tenon?s anesthesia cannula was introduced and passed posteriorly along the globe where non- preserved plain lidocaine was injected into posterior sub-Tenon?s space. A sideport knife was used to make a paracentesis port. Intraocular phenylephrine/lidocaine was injected into the anterior chamber. The anterior chamber was then filled with viscoelastic. A keratome knife was used to construct a two--plane clear corneal tunnel extending 2.0mm into clear cornea. A flap was raised on the anterior capsule and capsulorhexis forceps were used to complete a continuous curvilinear capsulorhexis of 5.0 mm. Balanced salt solution was then used to perform cortical cleaving hydrodissection and nuclear hydrodelineation until the lens could be freely rotated within the capsular bag. The lens nucleus was then disassembled and removed within the capsular bag and iris plane using phacoemulsification. Residual cortical material was removed using the I/A handpiece. The posterior capsule was carefully polished to remove as much residual lens epithelial cells as safely possible. The capsular bag was then inflated and the anterior chamber deepened with cohesive viscoelastic. The lens implant described above was inserted into the capsular bag using the Brendan Autonome Injector. A Kuglen hook was used to dial the IOL into position. Residual viscoelastic was then removed first from posterior to the IOL, then from the anterior chamber using the I/A handpiece. The lens implant was noted to center nicely within the capsular bag. The incisions were stromally hydrated, and the anterior chamber was reformed using BSS. Then 0.5cc of moxifloxacin 1.0mg/ml were injected into the capsular bag and anterior chamber. The incisions were checked with a Weck spear and found to be secure. Several drops of ophthalmic povidone-iodine 5% were then applied to the eye followed by two drops of combination steroid/NSAID/antibiotic solution. The drapes were removed and a clear plastic protective eye shield was placed over the eye. The patient was then returned to Same Day Surgery in stable condition. Date of Procedure: 06/28/24
--- NOTE | 2024-06-28 08:46 | W.PM.DSUDISC ---
Date of service: 06/28/24 Discharge Plan Disposition Patient Disposition: Home Discharge Details Attending Provider: Kirit Bhardwaj Primary Care Provider: Andrew Starkey Home Meds and New Rx's Prescriptions: No Action amlodipine 5 mg tablet 5 mg PO DAILY Qty: 90 3RF losartan 100 mg tablet 100 mg PO DAILY Qty: 90 3RF multivitamin [One Daily] 1 EACH tablet 1 ea PO DAILY aspirin,buffd-calcium carb-mag 325 MG tablet 325 mg PO DAILY Qty: 90 edusdscz-gcry-tzf8-C-petty-bosw 1 EACH tablet 1 ea PO DAILY loratadine 10 mg tablet 10 mg PO DAILY PRN (Reason: allergy symptoms) Qty: 30 2RF zolpidem [Ambien] 10 mg tablet 10 mg PO HS PRN (Reason: insomnia) Qty: 90 0RF docusate sodium 100 mg capsule 100 mg PO DAILY Qty: 90 3RF cyclobenzaprine 10 mg tablet 10 mg PO TID PRN (Reason: muscle spasm) Qty: 30 0RF finasteride 5 mg tablet 5 mg PO DAILY Qty: 90 4RF pravastatin 20 mg tablet 20 mg PO DAILY Qty: 90 4RF metoprolol succinate 50 mg tablet extended release 24 hr 50 mg PO DAILY Qty: 90 4RF gabapentin 300 mg capsule See Rx Instructions .ROUTE .COMPLEX Qty: 90 1RF Dose Instruction: TAKE 1 CAPSULE BY MOUTH EVERY NIGHT AT BEDTIME FOR NERVE PAIN Rx Instructions: TAKE 1 CAPSULE BY MOUTH EVERY NIGHT AT BEDTIME FOR NERVE PAIN hydrocodone-acetaminophen 7.5-325 mg tablet 1 tab PO BID MDD 2 tabs PRN (Reason: pain) Qty: 60 0RF Discharge Instructions Stand Alone Forms: DSU Post-Op CataractSilvia (DSU) Discharge Orders Discharge Orders: Discharge Order (Routine); Ordered 06/28/24 Ordered By: Kirit Bhardwaj DS: Diagnosis Discharge Diagnosis (1) Cortical age-related cataract, right eye: Status: Resolved
--- NOTE | 2024-06-28 09:04 | W.ANESPOSTOP ---
Postoperative Evaluation Date, Time and Location Date Performed: 06/28/24 Time Performed: 09:04 Patient Location: Day Surgery Unit Vital Signs Most Recent Imported Vital Signs: Most Recent Vital Signs Temp Pulse Resp BP Pulse Ox 36.4 C L 64 16 133/79 98 06/28/24 08:43 06/28/24 08:43 06/28/24 08:43 06/28/24 08:43 06/28/24 08:43 Pain Score Most Recent Pain Score: Most Recent Pain Score Pain Level 0 06/28/24 08:43 Assessment Mental Status: Awake (Alert & Oriented to Patient Baseline) Airway and Respiratory Function: Patent airway with normal (patient baseline) respiratory exam Cardiovascular Function: Hemodynamically Stable Hydration Status: Adequately Hydrated Nausea & Vomiting: No Nausea or Vomiting Pain: Pt. Denies Any Pain Peripheral Nerve Block: Patient did not receive a nerve block
[2024-06-28 09:11] VITALS: BP 130/79; PULSE 62; RESP 16; TEMP 36.2; O2SAT 96
== END 2024-06-28 09:17 | disposition home or self-care (01) ==
LOC: SUR 06:34
PROVIDERS: PCP Nurse Practitioner Family; Visit Provider Ophthalmology
PROC: (CPT 66984; principal; 2024-06-28 08:30)
DX: H25.011 Cortical age-related cataract, right eye (principal)
CPT/HCPCS: 66984; 00123; V2632; J2003

== ENCOUNTER 2024-07-17 00:32 | Outpatient (CLI) | payer MEDICARE, SELFPAY ==
--- NOTE | 2024-07-17 | DI.CT_ITS ---
Exam(s) CT ABDOMEN PELVIS CTA EXAM: CT ABDOMEN PELVIS CTA CLINICAL HISTORY: I72.3 Aneurysm artery, Illac common; R DENNIS aneurysm FU CTA. TECHNIQUE: Imaging Protocol: Axial CT angiography was performed with multi-slice acquisition and m ulti-planar and/or 3D reconstructions. CONTRAST MATERIAL: Intravenous: Omnipaque 350 Contrast volume:100mL Oral: No COMPARISON: CT CT ABDOMEN PELVIS WO/W from 01/17/[address] CHEST/ABD/PEL W from 01/15/2024 FINDINGS: ABDOMEN AND PELVIS: Abdomen: Celiac axis/mesenteric arteries: No evidence of occlusion or significant stenosis. Renal Arteries: No evidence of occlusion or significant stenosis. Aorta: No evidence of occlusion or significant stenosis. No aneurysm or dissection. The sclerotic ca lcification is present. Pelvis: Iliac Arteries: No evidence of occlusion or significant stenosis. The left common iliac artery measu res 1.5 cm in diameter. There is an aneurysm seen in the distal right common iliac artery extending into the right internal iliac artery. It measures 3.4 cm in diameter. This is unchanged. It is unc hanged in appearance. Common Femoral Arteries: No evidence of occlusion or significant stenosis. Atherosclerotic calcifica tion is present. No significant stenosis is seen. No aneurysm is identified. ABDOMEN: Lung bases: Unremarkable. Liver: Normal density. No measurable mass. Portal, Superior Mesenteric, and Splenic Veins: Due to the timing of the bolus, the veins are not roberta quately opacified. Gallbladder and Biliary Tract: Gallstones are present. There is no biliary ductal dilatation. Pancreas: Normal density, no abnormal calcifications or inflammatory process. Spleen: Normal. Adrenals: No masses seen. Kidneys: Normal size, contour and axis. No radiodense stones or obstructive uropathy. There are bilat eral simple renal cysts. No follow-up is recommended. Bowel: No obstruction or bowel wall thickening. There is diverticulosis of the colon without evidence of acute diverticulitis. There is no evidence of appendicitis. Peritoneal Cavity: No ascites, collection or mesenteric inflammatory response. No free air. Lymph Nodes: Within normal limits. Bones: Within normal limits for the patient's age. Age-appropriate degenerative changes are seen in the spine. Soft Tissues: There is a small fat containing umbilical hernia. PELVIS: Bladder: Symmetric distention, no gross wall thickening. Reproductive Organs: Unremarkable as visualized. Lymph Nodes: Within normal limits. Bones: Within normal limits. IMPRESSION: 1. Cholelithiasis. No CT evidence to suggest acute cholecystitis. No biliary ductal dilatation. 2. Colonic diverticulosis without evidence of acute diverticulitis. 3. Stable appearance of the aneurysm involving the distal right common iliac artery with extension in to the right internal iliac artery. No new abnormality associated with the aneurysm is appreciated. RADIATION DOSE DELIVERED: 307.87mGy.cm Total DLP DATA REPOSITORY: All CT scans at this facility are submitted to the National Radiology Data Registry (NRDR) Dose Index Registry (DIR) with the [employer] (ACR). RADIATION OPTIMIZATION: All CT scans at this facility use at least one of these dose optimization te chniques: automated exposure control; mA and/or kV adjustment per patient size (includes targeted exa ms where dose is matched to clinical indication); or iterative reconstruction.
[2024-07-17 13:53] LABS: Estimated GFR 76.56 (mL/min/1.73m2)
[2024-07-17] MEDS: Normal Saline - Diluent 50 ML VIAL IJ (14:17)
[2024-07-17] MEDS: Omnipaque 350 MG/ML 100 ML BTL IJ (14:19)
== END 2024-07-17 00:52 ==
LOC: DI 00:33
PROVIDERS: Nurse Practitioner Adult Health; PCP Nurse Practitioner Family; Visit Provider Surgery Vascular Surgery
DX: I71.30 Abdominal aortic aneurysm, ruptured, unspecified (principal); K80.80 Other cholelithiasis without obstruction
CPT/HCPCS: 74174; 82565; J3490

== ENCOUNTER 2024-12-13 13:50 | Outpatient (REF) | payer MEDICARE, SELFPAY ==
[2024-12-13 17:44] LABS: ALT 21 U/L (16-63); AST 16 U/L (15-37); Albumin 3.6 g/dL (3.4-5.0); Alkaline Phosphatase 60 U/L (46-116); Anion Gap 7.7 mmol/L (3-11); BUN 17 mg/dL (7-18); Bilirubin, Total 1.2 mg/dL (0.2-1.0); CO2 28.3 mmol/L (21.0-32.0); Calcium 9.0 mg/dL (8.5-10.1); Calculated LDL 92 mg/dL (<100); Chloride 103 mmol/L (98-107); Cholesterol 175 mg/dL (<200); Estimated GFR 90.02 (mL/min/1.73m2); Glucose 95 mg/dL (74-106); HDL Cholesterol 43 mg/dL (>or=40); Potassium 4.5 mmol/L (3.5-5.1); Sodium 139 mmol/L (136-145); Total Protein 6.4 g/dL (6.4-8.2); Triglyceride 203 mg/dL (<150)
== END 2024-12-13 13:51 | disposition home or self-care (01) ==
LOC: LBN 13:50
PROVIDERS: PCP Nurse Practitioner Family; Visit Provider Nurse Practitioner Family
DX: E78.5 Hyperlipidemia, unspecified (principal)
CPT/HCPCS: 80053; 80061

== ENCOUNTER 2025-01-13 03:19 | Outpatient (CLI) | payer MEDICARE, SELFPAY ==
[2025-01-13 13:42] LABS: Estimated GFR 68.29 (mL/min/1.73m2)
[2025-01-13] MEDS: Normal Saline - Diluent 50 ML VIAL IJ (13:59)
[2025-01-13] MEDS: Omnipaque 350 MG/ML 100 ML BTL IJ (13:59)
[2025-01-13] MEDS: Normal Saline Flush 10 ML SYR IVP (14:00)
--- NOTE | 2025-01-13 14:15 | DI.CT_ITS ---
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 TECHNIQUE: Imaging Protocol: Axial computed tomography images with coronal and sagittal reformatted images were created and reviewed CONTRAST MATERIAL: Intravenous: Omnipaque 350 Contrast volume:100 ml Oral: None COMPARISON: CT CT CHEST/ABD/PEL W from 01/15/[address] ABDOMEN PELVIS CTA from 07/17/2024 FINDINGS: CHEST: AORTA: The diameter of the ascending thoracic aorta is enlarged, measuring 4 cm, unchanged from 01/15/2024 thoracic aortic arch diameter is upper normal and descending thoracic aorta is upper normal. There is no thoracic aorta dissection or pericardial effusion. The abdominal aorta is moderately atherosclerotic. There is minimal dilatation the distal most abdominal aorta which measures 2.1 cm exhibiting lack of normal tapering. There is no significant stenosis at the aortic bifurcation proximal common iliac arteries. The previously described significant aneurysm in the distal right common iliac artery and extending into the right internal iliac artery exhibits similar size and configuration. The length of the aneurysm is 4 cm. Maximum diameter the aneurysm is 3.1 cm. No evidence of leak at this time. There is generalized arterial megaly of both common iliac arteries also noted. There is no significant stenosis at the origin of the renal arteries. Also no significant aneurysm at the takeoff of the celiac and superior mesenteric arteries from the anterior wall the aorta. The inferior mesenteric artery is patent. LUNGS: No confluent infiltrates nor pleural effusions and there are no ominous pulmonary nodules. No significant focal findings in the trachea and mainstem bronchi.. MEDIASTINUM: There is no hilar nor mediastinal adenopathy. Visualized thyroid unremarkable. CARDIAC: Heart size is normal. There is no pericardial effusion. Pacemaker wires are noted. And atrial appendage occlusion device is again noted. ABDOMEN: There is no ascites. No evidence of bowel obstruction, free air, nor abscess. LIVER: There are no focal hepatic lesions nor dilatation of intrahepatic ducts. GALLBLADDER/BILIARY: There layering small gallstones in the gallbladder neck region. No evidence of acute cholecystitis. CBD is not dilated. There are no radiopaque calculi seen in the nondilated CBD. PANCREAS: No evidence of pancreatic mass nor dilatation of the pancreatic duct. SPLEEN: Spleen is not enlarged. There are no intrasplenic lesions. Splenic and portal veins are patent. ADRENALS: There are no significant adrenal masses. KIDNEYS: There is a benign cyst in the lateral cortex of the right kidney which measures 1.7 cm and does not require further workup. No solid lesions in the right kidney. There is a small cyst in the anterior cortex of the left kidney which measures 0.9 cm, also not requiring further workup. Another small exophytic cyst is seen of the posterior cortex of the left kidney again. There are no solid renal masses. No calculi. No hydronephrosis. No hydroureter.. ABDOMINAL AORTA: See above LYMPH NODES: There is no retroperitoneal nor para-aortic adenopathy. No obvious mesenteric masses. ABDOMINAL WALL: No evidence of significant anterior abdominal wall hernia. GI: There is no evidence of bowel obstruction, free air, nor abscess. PELVIS: LYMPH NODES: There is no intrapelvic nor inguinal adenopathy. GI: No evidence of appendicitis.There is extensive sigmoid diverticulosis but no evidence of obvious acute diverticulitis. URINARY BLADDER: There is a solitary tiny 2 millimeter calculus on the dependent wall of the urinary bladder. REPRODUCTIVE: Moderately enlarged prostate gland. Seminal vesicles unremarkable. No obturator adenopathy. OSSEOUS: Unchanged sclerotic non expansile sclerotic bone lesion in the left iliac bone of the pelvis remains unchanged. Probably benign bone island. 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 IMPRESSION: 1. 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 2. The diameter of the ascending thoracic aorta is again noted be enlarged, measuring 4 cm, unchanged. There is no evidence of aortic dissection nor pericardial effusion. 3. Cardiac pacemaker wires again noted as is again noted a left atrial appendage occlusion device. 4. Cholelithiasis but no evidence of acute cholecystitis nor dilatation of the biliary tree. 5. There is a 2 millimeter calculus in the urinary bladder along the posterior- dependent wall. There are no calculi in the kidneys and ureters and there is no hydronephrosis. 6. other findings as above. RADIATION DOSE DELIVERED: 1,142.31mGy.cm Total DLP DATA REPOSITORY: All CT scans at this facility are submitted to the National Radiology Data Registry (NRDR) Dose Index Registry (DIR) with the [employer] ([employer]). RADIATION OPTIMIZATION: All CT scans at this facility use at least one of these dose optimization techniques: automated exposure control; mA and/or kV adjustment per patient size (includes targeted exams where dose is matched to clinical indication); or iterative reconstruction.
== END 2025-01-13 03:39 ==
LOC: DI 03:19
PROVIDERS: PCP Nurse Practitioner Family; Visit Provider Surgery Vascular Surgery
DX: I72.3 Aneurysm of iliac artery (principal); K80.80 Other cholelithiasis without obstruction; N21.0 Calculus in bladder
CPT/HCPCS: 71275; 74174; 82565; J3490

== ENCOUNTER → 2025-02-18 09:12 | Outpatient (BNVA) | payer MEDICARE, SELFPAY | PROVIDERS: PCP Nurse Practitioner Family; Visit Provider Urology | DX: R31.9 Hematuria, unspecified (principal); R35.0 Frequency of micturition | CPT/HCPCS: 99213; 81002 ==